=== PATIENT | female | born 1955 | race Caucasian/White ===

== ENCOUNTER 2016-10-02 10:29 | Outpatient (CLI) | payer MEDICARE, MEDICAID ==
--- NOTE | 2016-10-02 11:22 | Ultrasound Report ---
ULTRASOUND RIGHT FOREHEAD: 10/02/2016 CLINICAL HISTORY: Persistent mass. TECHNIQUE: Real-time scanning was performed with sales training representative static images obtained. FINDINGS: Ultrasound of the palpable abnormality identified by the patient on the right forehead was performed. At this site, there is a 1.4 x 1.4 x 0.3 cm lipoma. No sonographically suspicious findi ngs are seen. IMPRESSION: SMALL LIPOMA, ACCOUNTING FOR THE PALPABLE ABNORMALITY. :9 JOB #: [id number] EXT JOB #:[id number]
== END 2016-10-02 10:30 | disposition home or self-care (01) ==
LOC: DI 10:29
PROVIDERS: ATTEND Family Medicine
DX: D17.0 Benign lipomatous neoplasm of skin and subcutaneous tissue of head, face and neck (principal)
CPT/HCPCS: 76536

== ENCOUNTER 2017-08-19 20:50 | Outpatient (CLI) | payer MEDICAID, MEDICARE, OTHER ==
[2017-08-19 22:09] LABS: ALBUMIN 3.1 g/dL (3.2-5.5); ALBUMIN/GLOBULIN RATIO 0.8 (1.0-2.2); ALKALINE PHOSPHATASE 122 IU/L (42-121); ALT ALANINE AMINOTRANSFERASE 14 IU/L (10-60); AST ASPARTATE AMINOTRANSFERASE 19 IU/L (10-42); BILIRUBIN,TOTAL < 0.2 mg/dL (0.2-1.0); BUN - BLOOD UREA NITROGEN 18 mg/dL (6-20); CALCIUM 9.2 mg/dL (8.5-10.3); CARBON DIOXIDE - CO2 25 mmol/L (21-32); CHLORIDE 101 mmol/L (101-111); CREATININE 0.8 mg/dL (0.4-1.0); GFR - MDRD 73 (>89); GLUCOSE 101 mg/dL (70-100); SODIUM 135 mmol/L (135-145)
[2017-08-19 22:12] LABS: BASOPHILS # (AUTO) 0.2 10^3/uL (0.0-0.1); BASOPHILS % (AUTO) 2.1 %; EOSINOPHILS # (AUTO) 0.2 10^3/uL (0.0-0.7); EOSINOPHILS % (AUTO) 2.2 %; LYMPHOCYTES # (AUTO) 2.7 10^3/uL (1.5-3.5); LYMPHOCYTES % (AUTO) 35.1 %; MEAN CORPUSCULAR HEMOGLOBIN 29.7 pg (27.0-31.0); MEAN CORPUSCULAR HGB CONC 34.2 g/dL (32.0-36.0); MEAN CORPUSCULAR VOLUME 86.9 fL (81.0-99.0); MEAN PLATELET VOLUME 8.1 fL (7.9-10.8); MONOCYTES % (AUTO) 13.3 %; NEUTROPHILS # (AUTO) 3.6 10^3/uL (1.5-6.6); NEUTROPHILS % (AUTO) 47.3 %; PLT - PLATELET COUNT 480 10^3/uL (130-450); RED BLOOD COUNT 3.71 10^6/uL (4.20-5.40); RED CELL DISTRIBUTION WIDTH 13.6 % (12.0-15.0); WHITE BLOOD COUNT 7.6 x10^3/uL (4.8-10.8)
== END 2017-08-19 20:51 | disposition home or self-care (01) ==
LOC: LAB.R 20:50
DX: G40.909 Epilepsy, unspecified, not intractable, without status epilepticus (principal); I10 Essential (primary) hypertension; D64.9 Anemia, unspecified
CPT/HCPCS: 80053; 85025

== ENCOUNTER 2017-10-16 12:58 | Outpatient (CLI) | payer MEDICARE, MEDICAID ==
--- NOTE | 2017-10-16 15:00 | Mammography Report ---
Procedure Date: 10/16/2017 Accession Number: [id number] / [id number] Procedure: JANES - Diagnostic Dig Bilat CPT Code: FULL RESULT: EXAM: Diagnostic Dig Bilat DATE: 10/16/2017 1:39 PM CLINICAL HISTORY: Palpable abnormality left axilla COMPARISON: 04/10/2013, 07/05/2011, 07/14/2010 TECHNIQUE: Bilateral CC and MLO views, bilateral laterally exaggerated craniocaudal views, left true lateral views. A marker was placed at the site of palpable abnormality identified by the patient in the left axilla. FINDINGS: The breasts demonstrate heterogeneously dense fibroglandular parenchyma bilaterally. Coarse and punctate, typically benign calcifications are present. No mammographic abnormality is appreciated at the site of palpable abnormality identified by the marker in the left axilla. No suspicious masses, clustered microcalcifications, or regions of architectural distortion are identified. Please also refer to left breast ultrasound of the same day. IMPRESSION: Benign findings RECOMMENDATION: Routine annual screening unless otherwise clinically indicated. BIRADS CATEGORY 2: Benign findings STANDARD QUALIFYING STATEMENTS: 1. This examination was reviewed with the aid of Computer-Aided Detection (CAD). 2. A negative or benign imaging report should not delay biopsy if clinically suspicious findings are present. Consider surgical consultation if warrented. More than 5% of cancers are not identified by imaging. 3. Dense breasts may obscure an underlying neoplasm.
== END 2017-10-16 12:59 | disposition home or self-care (01) ==
LOC: DI 12:58
PROVIDERS: ATTEND Nurse Practitioner Gerontology
DX: N63.32 Unspecified lump in axillary tail of the left breast (principal)
CPT/HCPCS: 77066

== ENCOUNTER 2017-10-16 12:59 | Outpatient (CLI) | payer MEDICARE, MEDICAID ==
--- NOTE | 2017-10-16 14:46 | DEXA Report ---
Procedure Date: 10/16/2017 Accession Number: [id number] / [id number] Procedure: DEX - Dexa Spine and/or Hip CPT Code: FULL RESULT: EXAM: Dexa Spine and/or Hip, Dexa Forearm DATE: 10/16/2017 2:11 PM CLINICAL HISTORY: Postmenopausal, history of steroid use TECHNIQUE: Dual energy x-ray absorptiometry (DXA) was performed on a [employer] System. Regions measured are the AP Spine, femoral neck, and if needed forearm. COMPARISON: None. In accordance with the International Society for Clinical Densitometry (ISCD) guidelines, data from previous exams may be reanalyzed using current recommendations and techniques. This is done to allow a more accurate basis for comparison with the current study. FINDINGS: The data for the hip is as follows: BMD (g/cm/cm) T-SCORE Z-SCORE REGION Neck 0.781 -1.8 -0.6 TOTAL 0.804 -1.6 -0.6 NOTE: The femoral neck or total proximal femur, whichever is lowest, is used for classification. The data for the LEFT forearm is as follows: BMD (g/cm/cm) T-SCORE Z-SCORE REGION 1/3 0.877 0.0 1.1 NOTE: The 33% radius of the nondominant forearm is used for classification. IMPRESSION: THE WHO CLASSIFICATION BASED ON THE INTERNATIONAL REFERENCE STANDARD IS OSTEOPENIA. THE FRACTURE RISK IS INCREASED. Left forearm performed due to previous spine surgery. RECOMMENDATION: Patients with diagnosis of osteoporosis or osteopenia should have regular bone mineral density assessment. For those eligible for Medicare, routine testing is allowed once every 2 years. Testing frequency can be increased for patients who have rapidly progressing disease or for those who are receiving medical therapy to restore bone mass. COMMENT: World Health Organization (WHO) definitions for osteoporosis and osteopenia: NORMAL BMD: T-score at -1.0 or higher, fracture risk is low OSTEOPENIA BMD: T-score between -1.0 and -2.5, fracture risk is increased. OSTEOPOROSIS BMD: T-score at -2.5 or lower, fracture risk is high. National Osteoporosis Foundation recommends: 1. Obtain adequate dietary calcium (at least 1200 mg per day) and vitamin D (400-800 international units per day). 2. Participate, as appropriate, in regular weightbearing and muscle-strengthening exercise. 3. Avoid tobacco use and reduce alcohol and caffeine intake. 4. For more detailed information see the website at www.NOF.org.
--- NOTE | 2017-10-16 14:46 | DEXA Report ---
Procedure Date: 10/16/2017 Accession Number: [id number] / [id number] Procedure: DEX - Dexa Forearm CPT Code: FULL RESULT: EXAM: Dexa Spine and/or Hip, Dexa Forearm DATE: 10/16/2017 2:11 PM CLINICAL HISTORY: Postmenopausal, history of steroid use TECHNIQUE: Dual energy x-ray absorptiometry (DXA) was performed on a [employer] System. Regions measured are the AP Spine, femoral neck, and if needed forearm. COMPARISON: None. In accordance with the International Society for Clinical Densitometry (ISCD) guidelines, data from previous exams may be reanalyzed using current recommendations and techniques. This is done to allow a more accurate basis for comparison with the current study. FINDINGS: The data for the hip is as follows: BMD (g/cm/cm) T-SCORE Z-SCORE REGION Neck 0.781 -1.8 -0.6 TOTAL 0.804 -1.6 -0.6 NOTE: The femoral neck or total proximal femur, whichever is lowest, is used for classification. The data for the LEFT forearm is as follows: BMD (g/cm/cm) T-SCORE Z-SCORE REGION 1/3 0.877 0.0 1.1 NOTE: The 33% radius of the nondominant forearm is used for classification. IMPRESSION: THE WHO CLASSIFICATION BASED ON THE INTERNATIONAL REFERENCE STANDARD IS OSTEOPENIA. THE FRACTURE RISK IS INCREASED. Left forearm performed due to previous spine surgery. RECOMMENDATION: Patients with diagnosis of osteoporosis or osteopenia should have regular bone mineral density assessment. For those eligible for Medicare, routine testing is allowed once every 2 years. Testing frequency can be increased for patients who have rapidly progressing disease or for those who are receiving medical therapy to restore bone mass. COMMENT: World Health Organization (WHO) definitions for osteoporosis and osteopenia: NORMAL BMD: T-score at -1.0 or higher, fracture risk is low OSTEOPENIA BMD: T-score between -1.0 and -2.5, fracture risk is increased. OSTEOPOROSIS BMD: T-score at -2.5 or lower, fracture risk is high. National Osteoporosis Foundation recommends: 1. Obtain adequate dietary calcium (at least 1200 mg per day) and vitamin D (400-800 international units per day). 2. Participate, as appropriate, in regular weightbearing and muscle-strengthening exercise. 3. Avoid tobacco use and reduce alcohol and caffeine intake. 4. For more detailed information see the website at www.NOF.org.
--- NOTE | 2017-10-16 14:56 | Ultrasound Report ---
Reason: Left breast - unsp lump in axillary tail of the left breast Procedure Date: 10/16/2017 Accession Number: [id number] / [id number] Procedure: US - Breast Unilateral Limited CPT Code: FULL RESULT: EXAM: Breast Unilateral Limited DATE: 10/16/2017 2:48 PM CLINICAL HISTORY: Left breast - unsp lump in axillary tail of the left breast COMPARISON: Mammogram 10/16/2017 TECHNIQUE: Real time scanning of the palpable abnormality identified in the left axilla, with chemical sales representative static images obtained. FINDINGS: Unremarkable subcutaneous fat and axillary lymph nodes are present. No suspicious mass is identified. No sonographically suspicious findings are seen. IMPRESSION: Benign findings. Recommendation: Routine annual screening unless otherwise clinically indicated. BI-RADS Category 2 benign findings
== END 2017-10-16 13:00 | disposition home or self-care (01) ==
LOC: DI 12:59
PROVIDERS: ATTEND Nurse Practitioner Gerontology
DX: M85.88 Other specified disorders of bone density and structure, other site (principal); N63.22 Unspecified lump in the left breast, upper inner quadrant
CPT/HCPCS: 76642; 77066; 77080; 77081

== ENCOUNTER 2018-03-04 12:30 | Outpatient (CLI) | payer MEDICARE, MEDICAID | END 2018-03-04 12:31 | disposition short-term general hospital (02) | LOC: EMS 12:30 | PROVIDERS: ATTEND Surgery | DX: R07.9 Chest pain, unspecified (principal) | CPT/HCPCS: A0425; A0427 ==

== ENCOUNTER 2018-03-31 21:25 | Outpatient (CLI) | payer MEDICAID, MEDICARE ==
[2018-03-31 23:49] LABS: BASOPHILS # (AUTO) 0.2 10^3/uL (0.0-0.1); BASOPHILS % (AUTO) 2.7 %; EOSINOPHILS # (AUTO) 0.4 10^3/uL (0.0-0.7); EOSINOPHILS % (AUTO) 4.7 %; HGB - HEMOGLOBIN 11.7 g/dL (12.0-16.0); LYMPHOCYTES # (AUTO) 2.8 10^3/uL (1.5-3.5); LYMPHOCYTES % (AUTO) 35.8 %; MEAN CORPUSCULAR HEMOGLOBIN 29.7 pg (27.0-31.0); MEAN CORPUSCULAR HGB CONC 32.3 g/dL (32.0-36.0); MEAN CORPUSCULAR VOLUME 91.8 fL (81.0-99.0); MEAN PLATELET VOLUME 8.7 fL (7.9-10.8); MONOCYTES # (AUTO) 0.7 10^3/uL (0.0-1.0); MONOCYTES % (AUTO) 8.6 %; NEUTROPHILS # (AUTO) 3.8 10^3/uL (1.5-6.6); NEUTROPHILS % (AUTO) 48.2 %; PLT - PLATELET COUNT 282 10^3/uL (130-450); RED BLOOD COUNT 3.93 10^6/uL (4.20-5.40); RED CELL DISTRIBUTION WIDTH 15.3 % (12.0-15.0); WHITE BLOOD COUNT 7.9 x10^3/uL (4.8-10.8)
[2018-03-31 23:53] LABS: ALBUMIN 3.5 g/dL (3.2-5.5); ALBUMIN/GLOBULIN RATIO 0.9 (1.0-2.2); BILIRUBIN,TOTAL 0.2 mg/dL (0.2-1.0); CALCIUM 9.1 mg/dL (8.5-10.3); CREATININE 0.8 mg/dL (0.4-1.0); TOTAL PROTEIN 7.5 g/dL (6.7-8.2)
== END 2018-03-31 23:59 | disposition home or self-care (01) ==
LOC: LAB.R 21:25
PROVIDERS: ATTEND Family Medicine
DX: I25.119 Atherosclerotic heart disease of native coronary artery with unspecified angina pectoris (principal); D64.9 Anemia, unspecified
CPT/HCPCS: 80053; 82728; 85025

== ENCOUNTER 2018-04-24 16:11 | Emergency (ER) | payer MEDICARE ==
[2018-04-24 16:21] VITALS: BP 116/81
[2018-04-24] MEDS ORDERED: oxyCODONE/ACET 5/325 Prepack 4 PO STA (17:02)
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
== END 2018-04-24 17:25 | disposition home or self-care (01) ==
LOC: ED 16:11
DX: G89.29 Other chronic pain (principal); M54.5 Low back pain
CPT/HCPCS: 99281; 99283

== ENCOUNTER 2018-04-27 13:23 | Emergency (ER) | payer MEDICARE ==
[2018-04-27 13:31] VITALS: BP 103/80
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
[2018-04-27] MEDS ORDERED: oxyCODONE 5 MG TABLET PO STA (13:44)
== END 2018-04-27 14:00 | disposition home or self-care (01) ==
LOC: ED 13:23
DX: M54.5 Low back pain (principal); G35 Multiple sclerosis; Z76.0 Encounter for issue of repeat prescription
CPT/HCPCS: 99283; A9270

== ENCOUNTER 2018-05-12 18:17 | Emergency (ER) | payer MEDICARE ==
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
[2018-05-12 19:13] LABS: BASOPHILS # (AUTO) 0.1 10^3/uL (0.0-0.1); BASOPHILS % (AUTO) 0.6 %; EOSINOPHILS # (AUTO) 0.1 10^3/uL (0.0-0.7); EOSINOPHILS % (AUTO) 0.6 %; HGB - HEMOGLOBIN 11.1 g/dL (12.0-16.0); LYMPHOCYTES # (AUTO) 2.7 10^3/uL (1.5-3.5); LYMPHOCYTES % (AUTO) 27.8 %; MEAN CORPUSCULAR HEMOGLOBIN 29.2 pg (27.0-31.0); MEAN CORPUSCULAR HGB CONC 32.3 g/dL (32.0-36.0); MEAN CORPUSCULAR VOLUME 90.6 fL (81.0-99.0); MEAN PLATELET VOLUME 7.2 fL (7.9-10.8); MONOCYTES # (AUTO) 0.7 10^3/uL (0.0-1.0); MONOCYTES % (AUTO) 7.3 %; NEUTROPHILS # (AUTO) 6.2 10^3/uL (1.5-6.6); NEUTROPHILS % (AUTO) 63.7 %; PLT - PLATELET COUNT 497 10^3/uL (130-450); RED CELL DISTRIBUTION WIDTH 15.1 % (12.0-15.0); WHITE BLOOD COUNT 9.7 x10^3/uL (4.8-10.8)
[2018-05-12 19:26] LABS: ALBUMIN 3.8 g/dL (3.2-5.5); ALBUMIN/GLOBULIN RATIO 1.1 (1.0-2.2); BILIRUBIN,TOTAL 0.3 mg/dL (0.2-1.0); CALCIUM 9.2 mg/dL (8.5-10.3); CREATININE 0.7 mg/dL (0.4-1.0); TOTAL PROTEIN 7.4 g/dL (6.7-8.2)
--- NOTE | 2018-05-12 20:29 | XRAY Report ---
Reason: dyspnea Procedure Date: 05/12/2018 Accession Number: [id number] / [id number] Procedure: XR - Chest 2 View X-Ray CPT Code: 26738 FULL RESULT: EXAM: CHEST RADIOGRAPHY EXAM DATE: 05/12/2018 07:41 PM. CLINICAL HISTORY: Dyspnea. COMPARISON: 01/24/2015. TECHNIQUE: 2 views. FINDINGS: Lungs/Pleura: Interval small pleural effusions, left greater than right. Mild bronchial wall thickening, nonspecific for age. No consolidation or vascular congestion. No pneumothorax. Mediastinum: Normal heart size and superior mediastinal contour. Other: No acute fracture identified. IMPRESSION: 1. Nonspecific small bilateral pleural effusions, left greater than right. 2. No obvious consolidation or heart failure. Follow-up recommended. [facility]
[2018-05-12] MEDS ORDERED: POTASSIUM CHLORIDE 20 MEQ TABLET PO STA (20:39)
[2018-05-12] MEDS ORDERED: FUROSEMIDE 20 MG TABLET PO STA (20:39)
[2018-05-12 20:52] VITALS: BP 129/103
== END 2018-05-12 20:53 | disposition home or self-care (01) ==
LOC: ED 18:17
DX: I11.0 Hypertensive heart disease with heart failure (principal); I50.9 Heart failure, unspecified; I25.2 Old myocardial infarction; I45.2 Bifascicular block
CPT/HCPCS: 36415; 71046; 80053; 83690; 83880; 84484; 85025; 93005; 99283; 99284; A9270

== ENCOUNTER 2018-11-05 04:05 | Emergency (ER) | payer MEDICARE, MEDICAID ==
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
[2018-11-05] MEDS ORDERED: KETOROLAC 60 MG/2 ML VIAL IM STA (04:50)
[2018-11-05 05:20] VITALS: BP 118/76
== END 2018-11-05 05:40 | disposition home or self-care (01) ==
LOC: ED 04:05
DX: H92.02 Otalgia, left ear (principal); M54.42 Lumbago with sciatica, left side; I10 Essential (primary) hypertension
CPT/HCPCS: 96372; 99283; 99284

== ENCOUNTER 2019-02-21 12:43 | Emergency (ER) | payer MEDICARE, MEDICAID ==
[2019-02-21 12:55] VITALS: BP 104/57
--- NOTE | 2019-02-21 14:15 | ED Physician Documentation ---
PD HPI FEMALE - Stated complaint Stated Complaint: FEM /MED FILL - Chief complaint Chief Complaint: UTI - History obtained from History obtained from: Patient - History of Present Illness Timing - onset: How many days ago (5) Timing - duration: Days (5) Timing - details: Gradual onset, Still present Associated symptoms: Dysuria, Urinary frequency. No: Fever, Vaginal discharge, Genital sore/lesion, Hematuria Similar symptoms before: Diagnosis (has had many UTIs in the past, with similar symptoms.) Recently seen: Not recently seen (had Dr. Ragsdale as PMD, but has outstanding bills with that office, so is not given appt with them until paying. Is trying to change to [facility]. Is out of some [place] meds, and no mechanism for refills right now.) Review of Systems Constitutional: denies: Fever, Chills, Myalgias Nose: denies: Rhinorrhea / runny nose, Congestion Throat: denies: Sore throat Cardiac: denies: Chest pain / pressure Respiratory: denies: Cough GI: denies: Abdominal Pain, Nausea : reports: Dysuria, Frequency. 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 : Chronic bladder infection HEENT: None Psych: Depression Musculoskeletal: Chronic back pain Derm: Other - Past Surgical History Past Surgical History: Yes Ortho: Spine surgery /MYSQL DEVELOPER: Hysterectomy - Present Medications Home Medications: Ambulatory Orders Medication Instructions Recorded Confirmed Cholestyramine [Questran] 4 gm PO DAILY 04/28/13 11/05/18 Levothyroxine [Synthroid] 75 mcg PO QDAC 04/28/13 11/05/18 levETIRAcetam [Keppra] 500 mg PO BID 04/28/13 11/05/18 Furosemide [Lasix] 20 mg PO DAILY #7 tablet 05/12/18 11/05/18 Atorvastatin Calcium 1 tab PO DAILY 11/05/18 11/05/18 Ketorolac [Toradol] 10 mg PO Q6H PRN #14 tablet 11/05/18 Venlafaxine [Effexor] 2 tab PO DAILY 11/05/18 11/05/18 Cephalexin [Keflex] 500 mg PO TID #15 capsule 02/21/19 Methylphenidate HCl 20 mg PO DAILY #20 tablet.er 02/21/19 [Methylphenidate ER] Metoprolol Succinate [Toprol Xl] 25 mg PO DAILY #20 tablet 02/21/19 Phenazopyridine HCl [Pyridium] 100 mg PO TID PRN #15 tablet 02/21/19 Potassium Chloride 10 meq PO DAILY #7 tablet.er 02/21/19 levETIRAcetam [Keppra] 500 mg PO BID #80 tablet 02/21/19 - Allergies Allergies/Adverse Reactions: Allergies Allergy/AdvReac Type Severity Reaction Status Date / Time No Known Drug Allergies Allergy Verified 11/05/18 04:16 - Social History Does the pt smoke?: No Smoking Status: Never smoker Does the pt drink ETOH?: No Does the pt have substance abuse?: No - Immunizations Immunizations are current?: No - POLST Patient has POLST: No PD ED PE NORMAL - Vitals Vital signs reviewed: Yes - General General: Alert and oriented X 3, Well developed/nourished - HEENT HEENT: Pharynx benign - Neck Neck: Supple, no meningeal sign, No adenopathy - Cardiac Cardiac: RRR, No murmur - Respiratory Respiratory: Clear bilaterally - Abdomen Abdomen: Soft, Non tender - Female Female : Deferred, Other (bladder scanner showed about 187 residual.) - Derm Derm: Normal color, Warm and dry - Extremities Extremities: Normal ROM s pain, No edema, No calf tenderness / cord - Neuro Neuro: Alert and oriented X 3, No motor deficit, Normal speech - Psych Psych: No: Normal affect (slightly anxious, but able to follow train of thought) Results - Vitals Vitals: Vital Signs - 24 hr 02/21/19 12:51 Temperature 37.1 C Heart Rate 93 Respiratory 18 Rate Blood Pressure 104/57 L O2 Saturation 96 Oxygen O2 Source Room air - Labs Labs: Laboratory Tests 02/21/19 02/21/19 15:10 15:10 WBC 8.5 RBC 4.62 Hgb 13.5 Hct 41.9 MCV 90.7 MCH 29.2 MCHC 32.2 RDW 14.9 Plt Count 380 MPV 9.9 Neut # (Auto) 4.5 Lymph # (Auto) 3.1 [place] # (Auto) 0.6 Eos # (Auto) 0.1 Baso # (Auto) 0.2 H Absolute Nucleated RBC 0.00 Nucleated RBC % 0.0 Sodium 141 Potassium 4.1 Chloride 107 Carbon Dioxide 25 Anion Gap 9.0 BUN 15 Creatinine 1.0 Estimated GFR (MDRD) 56 L Glucose 107 H Calcium 9.5 Magnesium 2.5 Total Bilirubin 0.4 AST 20 ALT 15 Alkaline Phosphatase 116 Total Protein 8.0 Albumin 4.1 Globulin 3.9 Albumin/Globulin Ratio 1.1 Lipase 59 H PD MEDICAL DECISION MAKING - ED course Complexity details: d/w patient (she is having UTI symptoms. She says she cannot void here and is wanting to not delay her ride home. Bladder scan is normal enough. So will treat empirically for UTI. Would prefer UA and culture, but still sounds like reasonable empiric Dx for now. Also gave Rx for the meds she is currently out of. Getting appt with WCP.) Departure - Departure Disposition: Home, Self Care Clinical Impression: No mechanism for timely refill of medication, Dysuria UTI (urinary tract infection) Qualifiers: Urinary tract infection type: acute cystitis Hematuria presence: without hematuria Qualified Code(s): N30.00 - Acute cystitis without hematuria Condition: Stable Record reviewed to determine appropriate education?: Yes Instructions: ED UTI Cystitis Female Follow-Up: [facility] [Provider Group] Prescriptions: Cephalexin [Keflex] 500 mg PO TID #15 capsule levETIRAcetam [Keppra] 500 mg PO BID #80 tablet Methylphenidate HCl [Methylphenidate ER] 20 mg PO DAILY #20 tablet.er Metoprolol Succinate [Toprol Xl] 25 mg PO DAILY #20 tablet Phenazopyridine HCl [Pyridium] 100 mg PO TID PRN #15 tablet PRN Reason: Abdominal Pain Potassium Chloride 10 meq PO DAILY #7 tablet.er Comments: I wrote for 3 weeks of your medications you would need until follow-up with your new primary care. Hopefully that will be long enough duration for you to be able to follow-up with your new provider. Continue usual medications. Stay well-hydrated. For the urinary tract symptoms, Pyridium 2-3 times a day if needed for urinary discomfort. Cephalexin antibiotic for the infection. Recheck if not improving well over the next few days. Discharge Date/Time: 02/21/19 15:49
[2019-02-21] MEDS ORDERED: PHENAZOPYRIDINE 100 MG TABLET PO STA (15:01)
[2019-02-21] MEDS ORDERED: levETIRAcetam 250 MG TABLET PO STA (15:01)
[2019-02-21] MEDS ORDERED: cephALEXin 250 MG CAPSULE PO STA (15:01)
[2019-02-21 15:17] LABS: BASOPHILS # (AUTO) 0.2 10^3/uL (0.0-0.1); EOSINOPHILS # (AUTO) 0.1 10^3/uL (0.0-0.7); EOSINOPHILS % (AUTO) 1.5 %; HGB - HEMOGLOBIN 13.5 g/dL (12.0-16.0); LYMPHOCYTES # (AUTO) 3.1 10^3/uL (1.5-3.5); MEAN CORPUSCULAR HEMOGLOBIN 29.2 pg (27.0-31.0); MEAN CORPUSCULAR HGB CONC 32.2 g/dL (32.0-36.0); MEAN CORPUSCULAR VOLUME 90.7 fL (81.0-99.0); MEAN PLATELET VOLUME 9.9 fL (7.9-10.8); MONOCYTES # (AUTO) 0.6 10^3/uL (0.0-1.0); MONOCYTES % (AUTO) 7.3 %; NEUTROPHILS # (AUTO) 4.5 10^3/uL (1.5-6.6); NEUTROPHILS % (AUTO) 52.7 %; PLT - PLATELET COUNT 380 10^3/uL (130-450); RED BLOOD COUNT 4.62 10^6/uL (4.20-5.40); RED CELL DISTRIBUTION WIDTH 14.9 % (12.0-15.0); WHITE BLOOD COUNT 8.5 x10^3/uL (4.8-10.8)
[2019-02-21 15:28] LABS: ALBUMIN 4.1 g/dL (3.2-5.5); ALBUMIN/GLOBULIN RATIO 1.1 (1.0-2.2); BILIRUBIN,TOTAL 0.4 mg/dL (0.2-1.0); CALCIUM 9.5 mg/dL (8.5-10.3); MAGNESIUM 2.5 mg/dL (1.7-2.8)
== END 2019-02-21 15:49 | disposition home or self-care (01) ==
LOC: ED 12:43
DX: N30.00 Acute cystitis without hematuria (principal); I10 Essential (primary) hypertension; Z76.0 Encounter for issue of repeat prescription
CPT/HCPCS: 36415; 51798; 80053; 83690; 83735; 85025; 99284; 99285; A9270

== ENCOUNTER 2019-04-15 13:41 | Outpatient (CLI) | payer MEDICARE, MEDICAID ==
[2019-04-15 19:03] LABS: BASOPHILS # (AUTO) 0.1 10^3/uL (0.0-0.1); BASOPHILS % (AUTO) 1.5 %; EOSINOPHILS # (AUTO) 0.2 10^3/uL (0.0-0.7); EOSINOPHILS % (AUTO) 3.4 %; LYMPHOCYTES # (AUTO) 2.6 10^3/uL (1.5-3.5); LYMPHOCYTES % (AUTO) 38.5 %; MEAN CORPUSCULAR HEMOGLOBIN 28.4 pg (27.0-31.0); MEAN CORPUSCULAR HGB CONC 30.7 g/dL (32.0-36.0); MEAN CORPUSCULAR VOLUME 92.4 fL (81.0-99.0); MEAN PLATELET VOLUME 10.4 fL (7.9-10.8); MONOCYTES # (AUTO) 0.5 10^3/uL (0.0-1.0); NEUTROPHILS # (AUTO) 3.3 10^3/uL (1.5-6.6); NEUTROPHILS % (AUTO) 49.3 %; PLT - PLATELET COUNT 326 10^3/uL (130-450); RED BLOOD COUNT 4.58 10^6/uL (4.20-5.40); RED CELL DISTRIBUTION WIDTH 15.5 % (12.0-15.0); WHITE BLOOD COUNT 6.8 x10^3/uL (4.8-10.8)
[2019-04-15 19:13] LABS: HB2 TOTAL 13.4 g/dL; HEMOGLOBIN A1C 0.54 g/dL; HEMOGLOBIN A1C % 5.8 % (4.6-6.2)
[2019-04-15 19:40] LABS: ALBUMIN/GLOBULIN RATIO 1.1 (1.0-2.2); ALKALINE PHOSPHATASE 110 IU/L (42-121); ALT ALANINE AMINOTRANSFERASE 14 IU/L (10-60); AST ASPARTATE AMINOTRANSFERASE 19 IU/L (10-42); BILIRUBIN,TOTAL 0.5 mg/dL (0.2-1.0); BUN - BLOOD UREA NITROGEN 11 mg/dL (6-20); CALCIUM 9.6 mg/dL (8.5-10.3); CARBON DIOXIDE - CO2 26 mmol/L (21-32); CHLORIDE 110 mmol/L (101-111); CHOL/HDL RATIO 2.3 (<4.4); CHOLESTEROL 152 mg/dL; CREATININE 0.8 mg/dL (0.4-1.0); GFR - MDRD 72 (>89); GLUCOSE 84 mg/dL (70-100); HDL CHOLESTEROL 67 mg/dL; LDL CHOLESTEROL,CALCULATED 65 mg/dL; SODIUM 143 mmol/L (135-145); TOTAL PROTEIN 7.7 g/dL (6.7-8.2); VLDL CHOLESTEROL 20 mg/dL
[2019-04-15 20:11] LABS: FREE T4 (FREE THYROXINE) 0.89 ng/dL (0.58-1.64)
== END 2019-04-15 23:59 | disposition home or self-care (01) ==
LOC: LAB.N 13:41
PROVIDERS: ATTEND Nurse Practitioner Gerontology
DX: E78.00 Pure hypercholesterolemia, unspecified (principal); G35 Multiple sclerosis; E03.9 Hypothyroidism, unspecified; Z79.899 Other long term (current) drug therapy
CPT/HCPCS: 36415; 80053; 80061; 80177; 83036; 83721; 84439; 84443; 85025

== ENCOUNTER 2019-06-23 10:13 | Outpatient (CLI) | payer MEDICARE, MEDICAID | END 2019-06-23 23:59 | disposition home or self-care (01) | LOC: LAB.N 10:13 | PROVIDERS: ATTEND Nurse Practitioner Gerontology | DX: E03.9 Hypothyroidism, unspecified (principal) | CPT/HCPCS: 36415; 84443 ==

== ENCOUNTER 2019-07-18 10:09 | Emergency (ER) | payer MEDICARE ==
[2019-07-18 10:20] VITALS: BP 120/66
[2019-07-18 11:04] LABS: BILIRUBIN,URINE NEGATIVE (NEGATIVE); GLUCOSE, URINE (UA) NEGATIVE (NEGATIVE); KETONES,URINE (UA) NEGATIVE (NEGATIVE); LEUKOCYTE ESTERASE, URINE MODERATE (NEGATIVE); NITRITE,URINE POSITIVE (NEGATIVE); OCCULT BLOOD,URINE NEGATIVE (NEGATIVE); PH,URINE 5.5 PH (5.0-7.5); PROTEIN,URINE NEGATIVE (NEGATIVE); UROBILINOGEN,URINE 0.2 (NORMAL) E.U./dL (NORMAL)
[2019-07-18 11:06] LABS: CLARITY,URINE SL. CLOUDY (CLEAR)
[2019-07-18 11:11] LABS: BACTERIA,URINE Moderate /HPF (None Seen); RBC,URINE 0-5 /HPF (0-5); SQUAMOUS EPITHELIAL CELL,UR FEW Squamous (<= Few); WBC CLUMPS,URINE PRESENT
--- NOTE | 2019-07-18 11:23 | ED Physician Documentation ---
PD HPI FEMALE - Stated complaint Stated Complaint: FEMALE - Chief complaint Chief Complaint: UTI - History obtained from History obtained from: Patient - History of Present Illness Timing - onset: How many days ago (2-3) Timing - duration: Days (2-3) Timing - details: Gradual onset, Still present Associated symptoms: Back pain (mild today), Dysuria, Urinary frequency. No: Fever, Pelvic pain, Vaginal discharge, Genital sore/lesion Similar symptoms before: Diagnosis (UTIs) Review of Systems Constitutional: reports: Myalgias. denies: Fever, Chills Nose: denies: Rhinorrhea / runny nose, Congestion Throat: denies: Sore throat Respiratory: denies: Cough GI: reports: Nausea. 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 : Chronic bladder infection HEENT: None Psych: Depression Musculoskeletal: Chronic back pain Derm: Other - Past Surgical History Past Surgical History: Yes Ortho: Spine surgery /ACTUARIAL ANALYST: Hysterectomy - Present Medications Home Medications: Ambulatory Orders Medication Instructions Recorded Confirmed Cholestyramine [Questran] 4 gm PO DAILY 04/28/13 07/18/19 Furosemide [Lasix] 20 mg PO DAILY #7 tablet 05/12/18 07/18/19 Atorvastatin Calcium 40 mg PO DAILY 11/05/18 07/18/19 Metoprolol Succinate [Toprol Xl] 25 mg PO DAILY #20 tablet 02/21/19 07/18/19 Potassium Chloride 10 meq PO DAILY #7 tablet.er 02/21/19 07/18/19 levETIRAcetam [Keppra] 500 mg PO BID #80 tablet 02/21/19 07/18/19 Acetaminophen 1,000 mg Q6HR PRN 07/18/19 07/18/19 Baclofen 10 mg DAILY 07/18/19 07/18/19 Calcium Carbonate/Vitamin D3 1 ea DAILY 07/18/19 07/18/19 [Calcium 500 mg-Vit D3 600 Unit] Cephalexin [Keflex] 500 mg PO TID #20 capsule 07/18/19 Clopidogrel [Plavix] 75 mg DAILY 07/18/19 07/18/19 Diazepam 2 mg DAILY PRN 07/18/19 07/18/19 Glucos Sul 2Kcl/MSM/Chond/C/Mn 1 cap DAILY 07/18/19 07/18/19 [Glucosamine Chondroitin Cap] Levothyroxine Sodium 50 mcg DAILY 07/18/19 07/18/19 Methylphenidate HCl 40 mg PO DAILY 07/18/19 07/18/19 [Methylphenidate ER] Multivitamin/Iron/Folic Acid 1 ea ORAL DAILY 07/18/19 07/18/19 [Centrum Women Tablet] Phenazopyridine HCl [Pyridium] 100 mg PO TID PRN #15 tablet 07/18/19 - Allergies Allergies/Adverse Reactions: Allergies Allergy/AdvReac Type Severity Reaction Status Date / Time No Known Drug Allergies Allergy Verified 07/18/19 10:19 - Social History Does the pt smoke?: Yes Smoking Status: Current every day smoker Does the pt drink ETOH?: No Does the pt have substance abuse?: No - Immunizations Immunizations are current?: No - POLST Patient has POLST: No PD ED PE NORMAL - Vitals Vital signs reviewed: Yes - General General: Alert and oriented X 3, No acute distress, Well developed/nourished - Abdomen Abdomen: Soft, Non tender - Female Female : Deferred - Back Back: No CVA TTP - Derm Derm: Normal color - Neuro Neuro: Alert and oriented X 3, No motor deficit, Normal speech Results - Vitals Vitals: Vital Signs - 24 hr 07/18/19 10:19 Temperature 36.8 C Heart Rate 84 Respiratory 17 Rate Blood Pressure 120/66 O2 Saturation 98 Oxygen O2 Source Room air - Labs Labs: Laboratory Tests 07/18/19 10:30 Urine Color YELLOW Urine Clarity SL. CLOUDY Urine pH 5.5 Ur Specific [place] 1.015 Urine Protein NEGATIVE Urine Glucose (UA) NEGATIVE Urine Ketones NEGATIVE Urine Occult Blood NEGATIVE Urine Nitrite POSITIVE H Urine Bilirubin NEGATIVE Urine Urobilinogen 0.2 (NORMAL) Ur Leukocyte Esterase MODERATE H Urine RBC 0-5 Urine WBC >25 H Urine WBC Clumps PRESENT Ur Squamous Epith Cells FEW Squamous Urine Bacteria Moderate H Ur Microscopic Review INDICATED Urine Culture Comments INDICATED PD MEDICAL DECISION MAKING - ED course Complexity details: reviewed results, considered differential (symptoms and UA c/w UTI. ), d/w patient Departure - Departure Disposition: 01 Home, Self Care Clinical Impression: UTI (lower urinary tract infection) Condition: Stable Record reviewed to determine appropriate education?: Yes Instructions: ED UTI Cystitis Female Follow-Up: Erica Mendez ARNP [Primary Care Provider] - Prescriptions: Cephalexin [Keflex] 500 mg PO TID #20 capsule Phenazopyridine HCl [Pyridium] 100 mg PO TID PRN #15 tablet PRN Reason: Abdominal Pain Comments: Stay well-hydrated. Continue usual medicines. Add cephalexin 3 times a day for a week as prescribed for the bladder infection. The culture will result in 2 to 3 days and will call you if we need to change antibiotics based on that. Phenazopyridine 3 times a day for the next few days to help with urinary discomfort. Recheck if not improving well over the next 2 to 3 days and return if fevers, vomiting, increased pain, other concerns. Discharge Date/Time: 07/18/19 11:49
[2019-07-18] MEDS ORDERED: PHENAZOPYRIDINE 100 MG TABLET PO STA (11:28)
[2019-07-18] MEDS ORDERED: cephALEXin 250 MG CAPSULE PO STA (11:28)
[2019-07-18] MEDS ORDERED: ACETAMINOPHEN 325 MG TABLET PO STA (11:29)
== END 2019-07-18 11:49 | disposition home or self-care (01) ==
LOC: ED 10:09
DX: N39.0 Urinary tract infection, site not specified (principal); I10 Essential (primary) hypertension; G35 Multiple sclerosis; F17.210 Nicotine dependence, cigarettes, uncomplicated
CPT/HCPCS: 81001; 87077; 87086; 87181; 99283; 99284; A9270; 81003

== ENCOUNTER 2019-12-11 08:00 | Outpatient (CLI) | payer MEDICARE, MEDICAID | END 2019-12-11 23:59 | disposition home or self-care (01) | LOC: LAB.WCP 08:00 | PROVIDERS: ATTEND Psychiatry & Neurology Neurology | DX: G35 Multiple sclerosis (principal) | CPT/HCPCS: 36415; 82565 ==

== ENCOUNTER 2020-02-09 08:04 | Outpatient (CLI) | payer MEDICARE, MEDICAID | END 2020-02-09 08:05 | disposition critical access hospital (66) | LOC: EMS 08:04 | PROVIDERS: ATTEND Surgery | DX: R41.82 Altered mental status, unspecified (principal) | CPT/HCPCS: A0425; A0427 ==

== ENCOUNTER 2020-02-09 08:18 | Inpatient (IN) | payer MEDICARE, MEDICAID ==
--- NOTE | 2020-02-09 08:51 | CT Report ---
PROCEDURE: ANGIO HEAD W/WO INDICATIONS: Confusion, bilateral LE weakness, aphasia CONTRAST: IV CONTRAST: Optiray 320 ml: 80 PO CONTRAST: *NO PO CONTRAST TECHNIQUE: Precontrast 4.5 mm thick angled axial sections acquired from the foramen magnum to the vertex. Afte r the administration of intravenous contrast, 1 mm thick sections acquired through the [place] of [place] is. Postcontrast 4.5 mm thick sections then re-acquired from the foramen magnum to the vertex. 3-di mensional aajozyx-laruszdbh-ywcrubtlbj (MIP) and/or volume rendering reformats were acquired of the c entral intracranial vasculature. For radiation dose reduction, the following was used: automated ex posure control, adjustment of mA and/or kV according to patient size. COMPARISON: 01/24/[address] FINDINGS: Image quality: Excellent. Anterior circulation: Intracranial internal carotid arteries are normal in size and flow. The flow within the paired anterior cerebral arteries is normal and symmetric. The flow within the middle cer ebral arteries is normal and symmetric. The anterior communicating artery is seen. No aneurysms are seen. Posterior circulation: Visualized portions of the vertebral arteries demonstrate normal caliber, and join to form a normal appearing basilar artery. Flow within the posterior cerebral arteries is norm al and symmetric. No aneurysms are seen. CSF spaces: Ventricles are normal in size and shape. Basal cisterns are patent. No extra-axial flu id collections. Brain: No midline shift. No intracranial bleeds or masses. [place]-white matter interface appears int act. Skull and face: Calvarium and facial bones appear intact, without suspicious lesions. Sinuses: Visualized sinuses and mastoids are clear. IMPRESSION: No hemodynamically significant stenosis or occlusion of the major intracranial arterial circulation. Calcified atherosclerosis in the carotid siphons bilaterally. Global cerebral volume loss with moderate chronic microvascular ischemic changes. Reviewed by: Phillip Gutierrez MD on 02/09/2020 8:50 AM PDT Approved by: Phillip Gutierrez MD on 02/09/2020 8:50 AM PDT Station ID: [id number]
--- NOTE | 2020-02-09 08:55 | CT Report ---
PROCEDURE: ANGIO NECK W INDICATIONS: Confusion, bilateral LE weakness, aphasia CONTRAST: IV CONTRAST: Optiray 320 ml: 80 PO CONTRAST: *NO PO CONTRAST TECHNIQUE: After the administration of intravenous contrast, 1.5 mm axial sections acquired from the aortic arch to the [place] of [place]. Coronal 3-D maximum intensity projection (MIP) and/or volume rendering ref ormats were then performed. For radiation dose reduction, the following was used: automated exposur e control, adjustment of mA and/or kV according to patient size. COMPARISON: None. FINDINGS: Image quality: Excellent. Carotid system: The great vessels demonstrate a conventional anatomy as they arise from the aortic a [facility]. The origins of the common carotid arteries appear patent. The common carotid arteries demonstr ate normal calibers and courses. The bifurcation regions appear normal bilaterally. The internal ca rotid arteries demonstrate normal caliber and course. Posterior circulation: The origins of the vertebral arteries appear patent. The more superior porti ons of the vertebral arteries demonstrate normal course and caliber. They join to form a normal appe aring basilar artery. Soft tissues: Moderate centrilobular and paraseptal emphysematous changes. There is a nonspecific irr egular groundglass opacity in the right apex measuring approximately 9 mm in maximum dimension, sligh tly increased from January 2015 exam. Remaining soft tissue structures of the neck demonstrate no s ignificant abnormality. Bones: No suspicious bony lesions. Visualized cervical spine appears normally aligned. IMPRESSION: No occlusion or hemodynamically significant stenosis of the major extracranial arterial circulation. Moderate emphysematous change with a nonspecific irregular groundglass opacity in the right apex mehran uring up to 9 mm, slightly increased from January 2015 exam. This is concerning for low-grade malig mukund. Further evaluation with either PET/CT or continued CT surveillance is recommended. Reviewed by: Phillip Gutierrez MD on 02/09/2020 8:53 AM PDT Approved by: Phillip Gutierrez MD on 02/09/2020 8:53 AM PDT Station ID: [id number]
--- NOTE | 2020-02-09 09:05 | ED Physician Documentation ---
PD HPI ALTERED MENTAL STATUS - Stated complaint Stated Complaint: POSS STROKE - Chief complaint Chief Complaint: Neuro - History obtained from History obtained from: Patient, EMS - History of Present Illness Timing - onset: Today Timing - duration: Hours Timing - details: Gradual onset, Still present Quality / character: Less responsive Associated symptoms: General weakness, Other (fall). No: Fever, Headache, Stiff neck, Dyspnea, Cough, NVD, Urinary sx, Focal weakness, Seizure activity, Syncope Contributing factors: No: Anticoagulated Basline status: Alert and oriented X 3, Ambulatory, Independent Similar symptoms before: Diagnosis (altered mental status with UTI. and missuse of medications.) Recently seen: Not recently seen - Additional information Additional information: 64-year-old female with a history of MS and ADHD presents this morning with altered mental status and she had a last known normal yesterday evening about 10 PM. She has had prior episodes of altered mental status related to medication misuse and to urinary tract infection. PD PAST MEDICAL HISTORY - Past Medical History Cardiovascular: Hypertension, [place] Respiratory: None Neuro: None, Multiple sclerosis Endocrine/Autoimmune: None GI: None INTERVENTIONAL RADIOLOGY RN: None : Chronic bladder infection HEENT: None Psych: Depression Musculoskeletal: Chronic back pain Derm: Other - Past Surgical History Past Surgical History: Yes Ortho: Spine surgery /INTERVENTIONAL RADIOLOGY RN: Hysterectomy - Present Medications Home Medications: Ambulatory Orders Medication Instructions Recorded Confirmed Cholestyramine [Questran] 4 gm PO DAILY 04/28/13 07/18/19 Furosemide [Lasix] 20 mg PO DAILY #7 tablet 05/12/18 07/18/19 Atorvastatin Calcium 40 mg PO DAILY 11/05/18 07/18/19 Metoprolol Succinate [Toprol Xl] 25 mg PO DAILY #20 tablet 02/21/19 07/18/19 Potassium Chloride 10 meq PO DAILY #7 tablet.er 02/21/19 07/18/19 levETIRAcetam [Keppra] 500 mg PO BID #80 tablet 02/21/19 07/18/19 Acetaminophen 1,000 mg Q6HR PRN 07/18/19 07/18/19 Baclofen 10 mg DAILY 07/18/19 07/18/19 Calcium Carbonate/Vitamin D3 1 ea DAILY 07/18/19 07/18/19 [Calcium 500 mg-Vit D3 600 Unit] Cephalexin [Keflex] 500 mg PO TID #20 capsule 07/18/19 Clopidogrel [Plavix] 75 mg DAILY 07/18/19 07/18/19 Diazepam 2 mg DAILY PRN 07/18/19 07/18/19 Glucos Sul 2Kcl/MSM/Chond/C/Mn 1 cap DAILY 07/18/19 07/18/19 [Glucosamine Chondroitin Cap] Levothyroxine Sodium 50 mcg DAILY 07/18/19 07/18/19 Methylphenidate HCl 40 mg PO DAILY 07/18/19 07/18/19 [Methylphenidate ER] Multivitamin/Iron/Folic Acid 1 ea ORAL DAILY 07/18/19 07/18/19 [Centrum Women Tablet] Phenazopyridine HCl [Pyridium] 100 mg PO TID PRN #15 tablet 07/18/19 Ketorolac [Toradol] 10 mg PO Q6H PRN #10 tablet 12/11/19 - Allergies Allergies/Adverse Reactions: Allergies Allergy/AdvReac Type Severity Reaction Status Date / Time No Known Drug Allergies Allergy Verified 02/09/20 08:46 - Social History Does the pt smoke?: Yes Smoking Status: Current every day smoker Does the pt drink ETOH?: No Does the pt have substance abuse?: No - Immunizations Immunizations are current?: No - POLST Patient has POLST: No PD ED PE NORMAL - Vitals Vital signs reviewed: Yes (hypertensive ) - General General: No acute distress, Well developed/nourished, Other (The patient will answer questions with delay in execution of commands. ) - HEENT HEENT: Atraumatic, PERRL, EOMI - Neck Neck: Supple, no meningeal sign, No bony TTP - Cardiac Cardiac: RRR, No murmur - Respiratory Respiratory: No respiratory distress, Clear bilaterally - Abdomen Abdomen: Normal bowel sounds, Soft, Non tender, Non distended, No organomegaly - Back Back: No CVA TTP, No spinal TTP - Derm Derm: Normal color, Warm and dry, No rash - Extremities Extremities: No deformity, No edema - Neuro Neuro: Alert and oriented X 3, records manager 2-12 intact, No motor deficit, No sensory deficit, Normal speech Eye Opening: Spontaneous Motor: Obeys Commands Verbal: Oriented GCS Score: 15 - Psych Psych: Normal mood, Normal affect Results - Vitals Vitals: Vital Signs - 24 hr 10/06/20 10/06/20 10/06/20 08:36 09:30 10:00 Temperature 36.6 C Heart Rate 85 73 76 Respiratory 19 23 24 Rate Blood Pressure 148/126 H 151/83 H 131/101 H O2 Saturation 99 99 100 02/09/20 02/09/20 02/09/20 10:30 11:00 11:30 Temperature Heart Rate 72 73 83 Respiratory 19 20 24 Rate Blood Pressure 138/87 H 138/81 H 144/98 H O2 Saturation 98 100 99 02/09/20 02/09/20 02/09/20 12:00 12:30 13:00 Temperature Heart Rate 75 79 88 Respiratory 28 H 22 19 Rate Blood Pressure 140/90 H 104/81 H O2 Saturation 98 99 99 Oxygen O2 Source Room air - EKG (time done) 0837 Rate: Rate (enter#) (83) Rhythm: NSR, Other (pvc's) Intervals: RBBB Ischemia: Q waves (consistent with prior inferior) Compare to prior EKG: Unchanged from prior EKG (SPT 05-12-2018 no changes) Computer interpretation: Disagree with computer (I do not see ST elevation in V5,6 or aVL) - Labs Labs: Laboratory Tests 02/09/20 02/09/20 02/09/20 09:18 09:18 09:32 WBC 9.0 RBC 4.64 Hgb 14.3 Hct 44.4 MCV 95.7 MCH 30.8 MCHC 32.2 RDW 13.8 Plt Count 248 MPV 10.8 Neut # (Auto) 6.0 Lymph # (Auto) 2.1 Spencer # (Auto) 0.7 Eos # (Auto) 0.0 Baso # (Auto) 0.1 Absolute Nucleated RBC 0.00 Nucleated RBC % 0.0 PT 13.1 H INR 1.2 APTT 27.3 Sodium 138 Potassium 3.8 Chloride 103 Carbon Dioxide 19 L Anion Gap 16.0 H BUN 23 H Creatinine 1.2 H Estimated GFR (MDRD) 45 L Glucose 94 Lactic Acid Calcium 9.6 Total Bilirubin 0.8 AST 20 ALT 13 Alkaline Phosphatase 107 Total Protein 8.3 H Albumin 4.4 Globulin 3.9 Albumin/Globulin Ratio 1.1 Lipase 31 Urine Color Urine Clarity Urine pH Ur Specific Dewey Urine Protein Urine Glucose (UA) Urine Ketones Urine Occult Blood Urine Nitrite Urine Bilirubin Urine Urobilinogen Ur Leukocyte Esterase Urine RBC Urine WBC Ur Squamous Epith Cells Urine Bacteria Ur Microscopic Review Urine Culture Comments 10/06/20 10/06/20 09:32 13:00 WBC RBC Hgb Hct MCV MCH MCHC RDW Plt Count MPV Neut # (Auto) Lymph # (Auto) Spencer # (Auto) Eos # (Auto) Baso # (Auto) Absolute Nucleated RBC Nucleated RBC % PT INR APTT Sodium Potassium Chloride Carbon Dioxide Anion Gap BUN Creatinine Estimated GFR (MDRD) Glucose Lactic Acid 1.8 Calcium Total Bilirubin AST ALT Alkaline Phosphatase Total Protein Albumin Globulin Albumin/Globulin Ratio Lipase Urine Color YELLOW Urine Clarity CLEAR Urine pH 6.0 Ur Specific Dewey 1.010 Urine Protein NEGATIVE Urine Glucose (UA) NEGATIVE Urine Ketones NEGATIVE Urine Occult Blood MODERATE H Urine Nitrite POSITIVE H Urine Bilirubin NEGATIVE Urine Urobilinogen 0.2 (NORMAL) Ur Leukocyte Esterase NEGATIVE Urine RBC 0-5 Urine WBC 0-3 Ur Squamous Epith Cells NONE SEEN Urine Bacteria Many H Ur Microscopic Review INDICATED Urine Culture Comments INDICATED Procedures - IVC sono (time) 0920 Bedside IVC sono: IVC measures (cm) (0.58), Profound dehydration (est 3+ liter deficit) PD MEDICAL DECISION MAKING - ED course Complexity details: reviewed old records, reviewed results, re-evaluated jasmyne montoya, considered differential, d/w patient ED course: 64-year-old female with history of MS and ADHD has presented this morning with altered mental status and was last normal yesterday evening at approximately 10 PM. She is able to give some history this morning after arrival and she is only able to say that she does not have pain and that she does not feel that she was sick last week. She is not able to answer how much she has had to drink in the past day. She is found to be profoundly dehydrated with an IVC measuring 0.58 cm. It is administered saline. She arrives as a code stroke and on arrival to the ED the patient is not able to communicate effectively and not able to cooperate with stroke exam. She has weakness to the LE symmetric and she is able to hold the arms out for the count. She has symmetric face and has delay in execution of motor commands. She has improvement with hydration in her cognative function but remains slow. A urine specimen is obtained after 2 1/2 liter saline infusion. This appears infected and admission for altered mental status, UTI and dehydration is sought. Departure - Departure Disposition: 66 [facility] DC/Xfer Clinical Impression: UTI (lower urinary tract infection), Altered mental status, Dehydration
--- NOTE | 2020-02-09 09:18 | XRAY Report ---
PROCEDURE: Chest 1 View X-Ray INDICATIONS: chest pain TECHNIQUE: One view of the chest was acquired. COMPARISON: 05/12/2018 FINDINGS: Surgical changes and devices: None. Lungs and pleura: No pleural effusions or pneumothorax. Lungs are clear. Mediastinum: Mediastinal contours appear normal. Heart size is normal. Bones and chest wall: No suspicious bony lesions. Overlying soft tissues appear unremarkable. IMPRESSION: No acute process. Reviewed by: Taylor Vick MD on 02/09/2020 9:16 AM PDT Approved by: Taylor Vick MD on 02/09/2020 9:16 AM PDT Station ID: [id number]
[2020-02-09] MEDS ORDERED: SODIUM CHLORIDE 0.9% 1,000 ML IV STA ×2 (09:22→11:53)
[2020-02-09 09:24] LABS: BASOPHILS # (AUTO) 0.1 10^3/uL (0.0-0.1); BASOPHILS % (AUTO) 0.9 %; EOSINOPHILS % (AUTO) 0.4 %; HGB - HEMOGLOBIN 14.3 g/dL (12.0-16.0); LYMPHOCYTES # (AUTO) 2.1 10^3/uL (1.5-3.5); LYMPHOCYTES % (AUTO) 23.8 %; MEAN CORPUSCULAR HEMOGLOBIN 30.8 pg (27.0-31.0); MEAN CORPUSCULAR HGB CONC 32.2 g/dL (32.0-36.0); MEAN CORPUSCULAR VOLUME 95.7 fL (81.0-99.0); MEAN PLATELET VOLUME 10.8 fL (7.9-10.8); MONOCYTES # (AUTO) 0.7 10^3/uL (0.0-1.0); MONOCYTES % (AUTO) 8.2 %; NEUTROPHILS % (AUTO) 66.5 %; PLT - PLATELET COUNT 248 10^3/uL (130-450); RED BLOOD COUNT 4.64 10^6/uL (4.20-5.40); RED CELL DISTRIBUTION WIDTH 13.8 % (12.0-15.0)
[2020-02-09 09:40] LABS: ALBUMIN 4.4 g/dL (3.2-5.5); ALBUMIN/GLOBULIN RATIO 1.1 (1.0-2.2); BILIRUBIN,TOTAL 0.8 mg/dL (0.2-1.0); CALCIUM 9.6 mg/dL (8.5-10.3); CREATININE 1.2 mg/dL (0.4-1.0); TOTAL PROTEIN 8.3 g/dL (6.7-8.2)
[2020-02-09 09:46] LABS: INR 1.2 (0.8-1.2); PT - PROTHROMBIN TIME 13.1 secs (9.9-12.6)
[2020-02-09 09:52] LABS: PARTIAL THROMBOPLASTIN TIME 27.3 secs (24.9-33.3)
[2020-02-09] MEDS ORDERED: SODIUM CHLORIDE 0.9% 1,000 ML IV ONE (11:26)
[2020-02-09 13:22] LABS: BILIRUBIN,URINE NEGATIVE (NEGATIVE); GLUCOSE, URINE (UA) NEGATIVE (NEGATIVE); KETONES,URINE (UA) NEGATIVE (NEGATIVE); LEUKOCYTE ESTERASE, URINE NEGATIVE (NEGATIVE); NITRITE,URINE POSITIVE (NEGATIVE); OCCULT BLOOD,URINE MODERATE (NEGATIVE); PROTEIN,URINE NEGATIVE (NEGATIVE); UROBILINOGEN,URINE 0.2 (NORMAL) E.U./dL (NORMAL)
[2020-02-09 13:24] LABS: CLARITY,URINE CLEAR (CLEAR)
[2020-02-09 13:32] LABS: BACTERIA,URINE Many /HPF (None Seen); RBC,URINE 0-5 /HPF (0-5); SQUAMOUS EPITHELIAL CELL,UR NONE SEEN (<= Few)
[2020-02-09 13:41] LABS: MUDS CUTOFF CONCENTRATIONS CUTOFF CONC BELOW:
[2020-02-09] MEDS ORDERED: cefTRIAXone 1 GM in SODIUM CHLORIDE 0.9% MINIBAG 100 ML IV STA (13:41)
[2020-02-09 13:52] LABS: AMPHETAMINE SCREEN,URINE NEGATIVE (NEGATIVE); BENZODIAZEPINES SCREEN, URINE NEGATIVE (NEGATIVE); COCAINE SCREEN URINE NEGATIVE (NEGATIVE); METHADONE SCREEN, URINE NEGATIVE (NEGATIVE); METHAMPHETAMINES SCREEN, URINE NEGATIVE (NEGATIVE); OPIATE SCREEN, URINE NEGATIVE (NEGATIVE); OXYCODONE SCREEN, URINE NEGATIVE (NEGATIVE); PROPOXYPHENE SCREEN, URINE NEGATIVE (NEGATIVE); TRICYCLIC ANTIDEPRESSANT,URINE NEGATIVE (NEGATIVE)
[2020-02-09] MEDS ORDERED: IOVERSOL 320 100 ML VIAL IVP ONE (13:52)
[2020-02-09] MEDS: D5NS W/20 MEQ KCL 1,000 ML IV SCH (15:20)
[2020-02-09] MEDS: ENOXAPARIN 40 MG/0.4 ML SYRINGE SUBQ SCH (15:21)
[2020-02-09] MEDS: SODIUM CHLORIDE FLUSH 0.9% 10 ML SYRINGE IVP PRN ×2 (15:21→18:42)
[2020-02-09] MEDS: MEROPENEM 1 GM in SODIUM CHLORIDE 0.9% MINIBAG 100 ML IV SCH (17:51)
[2020-02-09] MEDS: SODIUM CHLORIDE FLUSH 0.9% 10 ML SYRINGE IVP SCH (18:02)
--- NOTE | 2020-02-09 18:58 | HISTORY & PHYSICAL EXAMINATION ---
DATE OF SERVICE: 02/09/2020 Physician: Divina Cesar MD HISTORY OF PRESENT ILLNESS: This is a 64-year-old white female with a history of ADHD and multiple sclerosis, who has had several admissions with altered mental status, which were found to be due to dehydration and a UTI. With one of these she had transfer to higher level of care because of the altered mental status, but in the end the etiology was the same: UTI and dehydration. Patient presents with extremely altered mental status, last known well was yesterday evening. It is unclear who found the patient (since it is not documented in the ER note, no ambulance run sheet is available, she cannot describe and no family is available), but she was extremely obtunded when arrived in the ER, had spontaneous respirations, but was not following commands, and was not communicative. She underwent a code stroke workup in the emergency room. She was also started on IV hydration, and has already rfeceived 2.5 L of fluid, which improved her mental status already and when a Doppler of the inferior vena cava was done in the ER, it showed that she had extreme IVC collapse, suggestive of extreme dehydration. Patient cannot give any details regarding this presentation. She does not know who found her, how she got to the emergency room and she cannot describe how she felt. There is no family at the bedside. Patient is awakening and answers appropriately, but has no recollection of the events. She denies any pain currently but she says she is tired. She denies any dysuria. It is unknown if she is compliant with her medications. PAST MEDICAL HISTORY 1. ADHD. 2. History of inappropriate (excessive) use of narcotics, ADHD medication and sedatives. 3. History of multiple sclerosis. 4. Hypertension. 5. Prior [place]. 6. Chronic UTIs. 7. Dehydration, presenting as altered mental status. PAST SURGICAL HISTORY: Spinal surgery and hysterectomy. FAMILY HISTORY: No inherited diseases. SOCIAL HISTORY: Patient lives alone. She is a smoker. She does not drink alcohol and there is no illicit drug use history. REVIEW OF SYSTEMS: This was done by talking to patient, but she was minimally able to give details, also chart review, also from discussion with the ER doctor. The pertinent positives are listed, the rest are negative or unknown at this time. MEDICATIONS 1. Tylenol p.r.n. 2. Atorvastatin 40 mg at bedtime. 3. Baclofen unknown frequency. 4. Vitamin D3 with calcium daily. 5. Questran 4 mg daily. 6. Plavix 75 mg daily. 7. Diazepam p.r.n. 8. Lasix 20 mg daily. 9. Glucosamine chondroitin daily. 10. Toradol 10 mg q.6 hours p.r.n. 11. Keppra 500 mg b.i.d. 12. Levothyroxine 50 mcg daily. 13. Methylphenidate ER 40 mg daily. 14. Metoprolol succinate 25 mg daily. 15. Multivitamin with iron daily. 16. Pyridium 100 mg t.i.d. p.r.n. 17. Potassium 10 mEq daily. ALLERGIES: NONE. PHYSICAL EXAMINATION GENERAL: Middle-aged white female. She is in no acute distress. She is supine in bed, appears comfortable, is somnolent, but awakens to her name and speaks normally but with short answers and she is in no distress. VITAL SIGNS: Blood pressure 130/60, heart rate 77 in sinus rhythm, afebrile, room air saturation 99%. HEENT: Reveals dry oral mucosa and tongue. NECK: No JVD in a supine position. CHEST: Clear. HEART: Normal heart sounds. No murmur. ABDOMEN: Soft, nontender and no pannus. EXTREMITIES: No clubbing, edema or cyanosis. NEUROLOGIC: Nonfocal, grossly intact, but somnolent. LABORATORY DATA: Normal electrolytes. Anion gap of 16, BUN 23, creatinine 1.2. (Her baseline creatinine is 1.0). Lactic acid 1.8. Normal liver tests. Normal CBC and INR. Urinalysis showed moderate occult blood, positive nitrites and many bacteria. Toxicology was negative entirely. IMAGING: Chest x-ray: No active process. Head and neck CTA showed no acute stroke or hemorrhage or severe stenoses. EKG: Normal sinus rhythm, right bundle branch block, and there is baseline motion artifact making any further interpretation not possible. IMPRESSION/DIAGNOSES 1. Altered mental status. 2. Dehydration. 3. Prerenal azotemia. 4. Urinary tract infection. 5. Attention deficit/hyperactivity disorder. 6. Multiple sclerosis. 7. Hypothyroidism. PLAN: Place patient in Observation status on telemetry and continue with aggressive IV hydration for improvement of her mental status, which is already improving. Begin IV antibiotics with plan to transition to oral antibiotics. Await results of a urine culture which has already been sent from the ER. If she has improvement in mental status and can be safely discharged on oral medications for the UTI, we will plan to do this tomorrow. Determination regarding her living situation, whether she needs senior living care, or any assistance with caregivers, will be determined tomorrow with the help of Social Work. DEEP VENOUS THROMBOSIS PROPHYLAXIS: Pharmacotherapy. CODE STATUS: FULL CODE. ATTESTATION: Patient is expected to be discharged or transferred to another facility within 96 hours: Yes. TD: 02/09/2020 18:42 MTDKatherin
[2020-02-09] MEDS: FAMOTIDINE 20 MG/2 ML SYRINGE IVP SCH (21:21)
[2020-02-09] MEDS ORDERED: diphenhydrAMINE INJ 50 MG/ML VIAL IVP STA (23:41)
[2020-02-10] MEDS: D5NS W/20 MEQ KCL 1,000 ML IV SCH (00:34)
[2020-02-10] MEDS: SODIUM CHLORIDE FLUSH 0.9% 10 ML SYRINGE IVP SCH ×3 (00:39→17:46)
[2020-02-10] MEDS: MEROPENEM 1 GM in SODIUM CHLORIDE 0.9% MINIBAG 100 ML IV SCH ×2 (02:55→14:15)
[2020-02-10] MEDS: ENOXAPARIN 40 MG/0.4 ML SYRINGE SUBQ SCH (09:31)
[2020-02-10] MEDS: FAMOTIDINE 20 MG/2 ML SYRINGE IVP SCH (09:33)
[2020-02-10] MEDS: NICOTINE 14 MG PATCH TOP SCH (09:33)
[2020-02-10] MEDS: SODIUM CHLORIDE FLUSH 0.9% 10 ML SYRINGE IVP PRN ×3 (09:34→18:06)
[2020-02-10 09:48] LABS: BASOPHILS # (AUTO) 0.1 10^3/uL (0.0-0.1); EOSINOPHILS # (AUTO) 0.2 10^3/uL (0.0-0.7); EOSINOPHILS % (AUTO) 2.2 %; LYMPHOCYTES # (AUTO) 2.1 10^3/uL (1.5-3.5); LYMPHOCYTES % (AUTO) 25.4 %; MEAN CORPUSCULAR HEMOGLOBIN 30.2 pg (27.0-31.0); MEAN CORPUSCULAR HGB CONC 30.5 g/dL (32.0-36.0); MEAN CORPUSCULAR VOLUME 98.7 fL (81.0-99.0); MEAN PLATELET VOLUME 10.4 fL (7.9-10.8); MONOCYTES # (AUTO) 0.6 10^3/uL (0.0-1.0); MONOCYTES % (AUTO) 6.8 %; NEUTROPHILS # (AUTO) 5.3 10^3/uL (1.5-6.6); NEUTROPHILS % (AUTO) 64.2 %; PLT - PLATELET COUNT 247 10^3/uL (130-450); RED BLOOD COUNT 3.98 10^6/uL (4.20-5.40); RED CELL DISTRIBUTION WIDTH 14.4 % (12.0-15.0); WHITE BLOOD COUNT 8.3 x10^3/uL (4.8-10.8)
[2020-02-10 09:59] LABS: CALCIUM 8.6 mg/dL (8.5-10.3); CREATININE 0.8 mg/dL (0.4-1.0)
--- NOTE | 2020-02-10 11:25 | PHARMACY PROGRESS NOTE ---
- Best Possible Medication History Admit Date and Time: 02/09/20 1404 Processed by: Pharmacy Medication History completed: Yes Patient Interview: Completed Secondary Source(s): Physician records (PATIENT UNABLE TO INTERVIEW BY PHARMACY. PATIENT NOT KNOWLEDGEABLE OF WHAT SHE TAKES AT HOME. MEDICATION RECONCILIATION COMPLETED USING INSURANCE AND PROVIDER RECORDS. ), Pharmacy records, Insurance records As the person ultimately responsible for medication therapy, providers are able to order a medication from an existing home medication list in [facility] via the "Reconcile Routine" prior to Confirmation of that medication by software support engineer. Such practice is discouraged except when the physician, in their clinical judgment, deems that a medical need exists for a medication without regard to previous use.
--- NOTE | 2020-02-10 11:50 | Discharge Plan ---
Discharge Plan Problem Reviewed?: Yes Disposition: Home, Self Care Condition: Stable Prescriptions: Cephalexin [Keflex] 500 mg PO TID #15 capsule Phenazopyridine [Pyridium] 100 mg PO TID #9 tablet Diet: Regular Activity Restrictions: Activity as Tolerated Shower Restrictions: No Driving Restrictions: Yes (Because of being nearly comatose,you may not operate a car until OKd by PCP) Instruction Topics: ED UTI Cystitis Female Health Concerns: You were admitted to Observation status in the hospital after you were found nearly comatose and again the cause was dehydration and a urinary tract infection. The urine is growing a bacteria called E. coli. You are being discharged to complete a course of oral antibiotics with Keflex 3 times a day, and also a prescription for Pyridium for the burning and pain you get with urination. The new prescriptions were electronically sent to your preferred pharmacy: [facility] in [place]. You need to drink more fluids especially for the next 5 days. Resume all your other prehospital medications. Sulfur Burner spoke to you about getting extra help at home which will be arranged. You were given a list of primary care providers to establish with, if you want a change from Beatriz Medel NP. YOU ARE MEDICALLY RESTRICTED FROM DRIVING A VEHICLE, BECAUSE YOU CAME IN [place]. Police take this very seriously and you could be arrested if you are found driving with this medical restriction. YOU MUST GET CLEARANCE TO RESUME DRIVING A CAR FROM YOUR PCP or other Provisder. Plan of Treatment: As above. Care Goals: Improvement in symptoms and stabilization are the goals. Assessment: Patient understands and is agreeable with the plan. Written reminders and instructions wer provided to the patient. Additional Instructions or Follow Up instructions: Please see your Primary Care Provider in the next 5 to 7 days for hospital follow-up. You are given a list of providers by our Sulfur Burner, and you said you would make your own appointment to a new PCP. No Smoking: If you smoke, Please STOP! Call for help.
[2020-02-10] MEDS ORDERED: POTASSIUM CHLORIDE INJ 40 MEQ in SODIUM CHLORIDE 0.9% 500 ML IV ONE (12:00)
[2020-02-10] MEDS ORDERED: POTASSIUM CHLOR 10 MEQ/100 ML 10 MEQ/100 ML BAG IV SCH (12:00)
--- NOTE | 2020-02-10 12:08 | DISCHARGE SUMMARY ---
Discharge Summary Admit Date: 02/09/20 Discharge Date: 02/10/20 Discharging Provider: Dr Divina Cesar Primary Care Provider: Latoya Medel NP Code Status: Attempt Resuscitation Condition at Discharge: Stable - HPI History of Present Illness: This is a 64-year-old white female who lives alone and is independent, with a history of ADHD, multiple sclerosis currently not in exacerbation, history of intermittent medication use in excess, history of altered mental status admissions caused by UTI and dehydration. Patient was found obtunded by her neighbor who called an ambulance and the patient was brought to the ER obtunded and a code stroke work-up was started. Review of the chart revealed this type of presentation when she gets dehydrated with a UTI. She started to receive and got 2.5 L of crystalloid in the ER and she awoke. Her head CT and neck CTA were unremarkable. The urinalysis found bacteriuria and positive nitrites. She is being admitted for dehydration and UTI treatment. She is obtunded and recalls nothing about this presentation. She cannot discuss her wishes regarding CODE STATUS currently. - HOSPITAL COURSE Hospital Course: 1) Altered mental status 2) Dehydration 3) Pre-renal azotemia 4) E coli UTI 5) ADHD 6) Multiple sclerosis 7) Hypothyroidism 8) Hypokalemia 9) Low back pain - ALLERGIES Allergies/Adverse Reactions: Allergies Allergy/AdvReac Type Severity Reaction Status Date / Time No Known Drug Allergies Allergy Verified 02/09/20 08:46 - MEDICATIONS Home Medications: Ambulatory Orders Medication Instructions Recorded Confirmed Cholestyramine [Questran] 4 gm PO DAILY 04/28/13 02/10/20 Potassium Chloride 10 meq PO DAILY #7 tablet.er 02/21/19 02/10/20 Acetaminophen 1,000 mg Q6HR PRN 07/18/19 02/10/20 Baclofen 10 mg PO DAILY 07/18/19 02/10/20 Calcium Carbonate/Vitamin D3 1 ea PO DAILY 07/18/19 02/10/20 [Calcium 500 mg-Vit D3 600 Unit] Clopidogrel [Plavix] 75 mg PO DAILY 07/18/19 02/10/20 Glucos Sul 2Kcl/MSM/Chond/C/Mn 1 cap PO DAILY 07/18/19 02/10/20 [Glucosamine Chondroitin Cap] Levothyroxine Sodium 50 mcg PO DAILY 07/18/19 02/10/20 Multivitamin/Iron/Folic Acid 1 ea ORAL DAILY 07/18/19 02/10/20 [Centrum Women Tablet] Atorvastatin [Lipitor] 40 mg PO DAILY 02/10/20 02/10/20 Cephalexin [Keflex] 500 mg PO TID #15 capsule 02/10/20 Methylphenidate HCl 40 mg PO DAILY 02/10/20 02/10/20 [Methylphenidate ER] Metoprolol Succinate [Toprol Xl] 25 mg PO BID 02/10/20 02/10/20 Phenazopyridine [Pyridium] 100 mg PO TID #9 tablet 02/10/20 levETIRAcetam [Roweepra] 500 mg PO BID 02/10/20 02/10/20 - LABS Result Diagrams: 02/11/20 04:37 02/11/20 04:37
[2020-02-10] MEDS ORDERED: ACETAMINOPHEN 325 MG TABLET PO PRN (13:18)
[2020-02-10] MEDS: PHENAZOPYRIDINE 100 MG TABLET PO SCH ×2 (14:15→20:43)
--- NOTE | 2020-02-10 15:16 | PROVIDER PROGRESS NOTE ---
Assessment/Plan - Problem List (1) Altered mental status Assessment/Plan: Her mentation improved significantly but not back to baseline entirely: she was seen by Physical Therapist who noted that the patient needed repeat cueing, was forgetful, easily distracted. Her gait is not normal and she cannot even put on her socks. She cannot be discharged safely, there is no one to stay with her today (both S ocial Work and branch service leader discussed this with her). Will admit her to Inpatient status due to continued altered mental status, and will continue to treat her infection, hydration, weakness. (2) Dehydration Assessment/Plan: DC IV this morning, to allow her to hydrate adequately orally, will assess if her oral intake is adequate for hydration while she is here. Follow BMP daily (3) E. coli UTI Assessment/Plan: Her last positive blood culture was Klebsiella that was ESBL-producing, therefore the iv Meropenem was chosen empirically at admission. She is growing E. coli, sensitivities not available. Will change to oral Keflex in anticipation of sensitive E. coli. (4) ADHD Assessment/Plan: Continue with her home meds for this (5) Multiple sclerosis Assessment/Plan: She does not have an active flareup but there is weakness of one leg more than the other, noticed today by the physical therapist (6) Hypothyroid Assessment/Plan: Continue with her home Synthroid dose for this. No TSH was done at admission, will check a TSH level. (7) Hypokalemia Assessment/Plan: Replace with IV runners. Follow BMP daily. (8) Chronic back pain Qualifiers: Back pain location: low back pain Back pain laterality: bilateral Sciatica presence: with sciatica Sciatica laterality: bilateral sciatica Qualified Code(s): M54.42 - Lumbago with sciatica, left side; M54.41 - Lumbago with sciatica, right side; G89.29 - Other chronic pain Assessment/Plan: Apparently she has a history of this and was requesting Percocet or oxycodone for treatment. (9) Prerenal azotemia Assessment/Plan: Resolved - Current Meds Current Meds: Current Medications Generic Name Dose Route Start Last Admin Trade Name Freq PRN Reason Stop Dose Admin Acetaminophen 650 mg 02/10/20 13:18 02/10/20 14:14 Tylenol PO 650 mg Q4HR PRN Administration Pain or Fever > 38C (100.4F) Enoxaparin Sodium 40 mg 02/09/20 14:07 02/10/20 09:31 Lovenox SUBQ 40 mg DAILY JIN Administration Famotidine 20 mg 02/09/20 21:00 02/10/20 09:33 Pepcid IVP 20 mg DAILY JIN Administration Meropenem 1 gm/ Sodium 100 mls @ 200 mls/hr 02/09/20 15:00 02/10/20 14:15 Chloride IV 200 mls/hr Q12H JIN Administration Potassium Chloride 40 meq/ 520 mls @ 125 mls/hr 02/10/20 12:00 02/10/20 12:24 Sodium Chloride IV 02/10/20 16:09 125 mls/hr ONCE ONE Administration Nicotine 1 patch 02/10/20 09:00 02/10/20 09:33 Nicoderm TOP 1 patch DAILY JIN Administration Phenazopyridine HCl 100 mg 02/10/20 14:00 02/10/20 14:15 Pyridium PO 100 mg TID JIN Administration Sodium Chloride 10 ml 02/09/20 14:04 02/10/20 11:17 Normal Saline Flush 0.9% IVP 10 ml PRN PRN Administration NEEDED PER PROVIDER ORDERS Sodium Chloride 10 ml 02/09/20 17:00 02/10/20 11:00 Normal Saline Flush 0.9% IVP Not Given 0100,0900,1700 JIN - Lab Result Fish Bone Diagrams: 02/10/20 09:30 02/10/20 09:30 - Additional Planning My Orders: My Active Orders 02/09/20 15:00 Meropenem [Merrem] 1 gm Sodium Chloride 0.9% Minibag [Normal Saline 0.9% Minibag] 100 ml IV Q12H 02/09/20 17:00 Sodium Chloride Flush 0.9% [Normal Saline Flush 0.9%] 10 ml IVP 0100,0900,1700 02/09/20 21:00 Famotidine [Pepcid] 20 mg IVP DAILY 02/10/20 Home Health Referral [CONS] Routine Social Work Consult [CONS] Routine Evaluate and Treat PT [PT] Routine 02/10/20 Breakfast Soft Mechanical Diet [DIET] 02/10/20 12:00 Potassium Chloride Inj 40 meq Sodium Chloride 0.9% [Normal Saline 0.9%] 500 ml IV ONCE 02/10/20 13:18 Acetaminophen [Tylenol] 650 mg PO Q4HR PRN 02/10/20 14:00 Phenazopyridine [Pyridium] 100 mg PO TID Subjective - Subjective Patient Reports: Feeling Better, Resting Comfortably, Other (She cannot remember the events of yesterday, cannot member how she got here. She complains of low back pain and burning with urination still.) Objective Vital Signs: Vital Signs - 24 hr 02/09/20 02/09/20 02/09/20 16:00 20:12 23:57 Temperature 36.5 C 36.6 C 36.4 C L Heart Rate [ 81 Brachial] Heart Rate [ 77 94 Radial] Heart Rate [ Supine] Respiratory 18 19 20 Rate Blood Pressure 131/66 H 102/65 106/63 [Right Brachial artery] Blood Pressure [Supine] O2 Saturation 99 97 98 02/10/20 02/10/20 02/10/20 04:35 07:28 11:10 Temperature 36.6 C 36.6 C Heart Rate [ 83 74 Brachial] Heart Rate [ Radial] Heart Rate [ 79 Supine] Respiratory 18 18 Rate Blood Pressure 109/57 L 97/55 L [Right Brachial artery] Blood Pressure 102/55 L [Supine] O2 Saturation 99 98 02/10/20 14:16 Temperature 37.1 C Heart Rate [ 87 Brachial] Heart Rate [ Radial] Heart Rate [ Supine] Respiratory 16 Rate Blood Pressure 112/61 [Right Brachial artery] Blood Pressure [Supine] O2 Saturation 100 Oxygen O2 Source Room air I&O (Last 24 Hrs): Intake and Output Totals x24h 02/08/20 02/09/20 02/10/20 23:59 23:59 23:59 Intake Total 3943.333 1640 Output Total 250 Balance 3943.333 1390 General: Alert, Oriented x3, No acute distress HEENT: EOMI, Mucous membr. moist/pink Neck: Supple, No JVD Neuro: Alert, Non Focal - Results Results: Laboratory Results WBC 8.3 x10^3/uL (4.8-10.8) 02/10/20 09:30 RBC 3.98 10^6/uL (4.20-5.40) L 02/10/20 09:30 Hgb 12.0 g/dL (12.0-16.0) 02/10/20 09:30 Hct 39.3 % (37.0-47.0) 02/10/20 09:30 MCV 98.7 fL (81.0-99.0) 02/10/20 09:30 MCH 30.2 pg (27.0-31.0) 02/10/20 09:30 MCHC 30.5 g/dL (32.0-36.0) L 02/10/20 09:30 RDW 14.4 % (12.0-15.0) 02/10/20 09:30 Plt Count 247 10^3/uL (130-450) 02/10/20 09:30 MPV 10.4 fL (7.9-10.8) 02/10/20 09:30 Neut # (Auto) 5.3 10^3/uL (1.5-6.6) 02/10/20 09:30 Lymph # (Auto) 2.1 10^3/uL (1.5-3.5) 02/10/20 09:30 [place] # (Auto) 0.6 10^3/uL (0.0-1.0) 02/10/20 09:30 Eos # (Auto) 0.2 10^3/uL (0.0-0.7) 02/10/20 09:30 Baso # (Auto) 0.1 10^3/uL (0.0-0.1) 02/10/20 09:30 Absolute Nucleated RBC 0.00 x10^3/uL 02/10/20 09:30 Nucleated RBC % 0.0 /100WBC 02/10/20 09:30 PT 13.1 secs (9.9-12.6) H 02/09/20 09:32 INR 1.2 (0.8-1.2) 02/09/20 09:32 APTT 27.3 secs (24.9-33.3) 02/09/20 09:32 Sodium 144 mmol/L (135-145) 02/10/20 09:30 Potassium 3.3 mmol/L (3.5-5.0) L 02/10/20 09:30 Chloride 114 mmol/L (101-111) H 02/10/20 09:30 Carbon Dioxide 22 mmol/L (21-32) 02/10/20 09:30 Anion Gap 8.0 (6-13) 02/10/20 09:30 BUN 12 mg/dL (6-20) 02/10/20 09:30 Creatinine 0.8 mg/dL (0.4-1.0) 02/10/20 09:30 Estimated GFR (MDRD) 72 (>89) L 02/10/20 09:30 Glucose 97 mg/dL (70-100) 02/10/20 09:30 Lactic Acid 1.8 mmol/L (0.5-2.2) 02/09/20 09:32 Calcium 8.6 mg/dL (8.5-10.3) 02/10/20 09:30 Total Bilirubin 0.8 mg/dL (0.2-1.0) 02/09/20 09:18 AST 20 IU/L (10-42) 02/09/20 09:18 ALT 13 IU/L (10-60) 02/09/20 09:18 Alkaline Phosphatase 107 IU/L (42-121) 02/09/20 09:18 Total Protein 8.3 g/dL (6.7-8.2) H 02/09/20 09:18 Albumin 4.4 g/dL (3.2-5.5) 02/09/20 09:18 Globulin 3.9 g/dL (2.1-4.2) 02/09/20 09:18 Albumin/Globulin Ratio 1.1 (1.0-2.2) 02/09/20 09:18 Lipase 31 U/L (22-51) 02/09/20 09:18 Urine Color YELLOW 02/09/20 13:00 Urine Clarity CLEAR (CLEAR) 02/09/20 13:00 Urine pH 6.0 PH (5.0-7.5) 02/09/20 13:00 Ur Specific [place] 1.010 (1.002-1.030) 02/09/20 13:00 Urine Protein NEGATIVE mg/dL (NEGATIVE) 02/09/20 13:00 Urine Glucose (UA) NEGATIVE mg/dL (NEGATIVE) 02/09/20 13:00 Urine Ketones NEGATIVE mg/dL (NEGATIVE) 02/09/20 13:00 Urine Occult Blood MODERATE (NEGATIVE) H 02/09/20 13:00 Urine Nitrite POSITIVE (NEGATIVE) H 02/09/20 13:00 Urine Bilirubin NEGATIVE (NEGATIVE) 02/09/20 13:00 Urine Urobilinogen 0.2 (NORMAL) E.U./dL (NORMAL) 02/09/20 13:00 Ur Leukocyte Esterase NEGATIVE (NEGATIVE) 02/09/20 13:00 Urine RBC 0-5 /HPF (0-5) 02/09/20 13:00 Urine WBC 0-3 /HPF (0-5) 02/09/20 13:00 Ur Squamous Epith Cells NONE SEEN (<= Few) 02/09/20 13:00 Urine Bacteria Many /HPF (None Seen) H 02/09/20 13:00 Ur Microscopic Review INDICATED 02/09/20 13:00 Urine Culture Comments INDICATED 02/09/20 13:00 Urine Opiates Screen NEGATIVE (NEGATIVE) 02/09/20 13:17 Ur Oxycodone Screen NEGATIVE (NEGATIVE) 02/09/20 13:17 Urine Methadone Screen NEGATIVE (NEGATIVE) 02/09/20 13:17 Ur Propoxyphene Screen NEGATIVE (NEGATIVE) 02/09/20 13:17 Ur Barbiturates Screen NEGATIVE (NEGATIVE) 02/09/20 13:17 Ur Tricyclics Screen NEGATIVE (NEGATIVE) 02/09/20 13:17 Ur Phencyclidine Scrn NEGATIVE (NEGATIVE) 02/09/20 13:17 Ur Amphetamine Screen NEGATIVE (NEGATIVE) 02/09/20 13:17 U Methamphetamines Scrn NEGATIVE (NEGATIVE) 02/09/20 13:17 U Benzodiazepines Scrn NEGATIVE (NEGATIVE) 02/09/20 13:17 Urine Cocaine Screen NEGATIVE (NEGATIVE) 02/09/20 13:17 U Cannabinoids Screen NEGATIVE (NEGATIVE) 02/09/20 13:17
[2020-02-10] MEDS ORDERED: cephALEXin 250 MG CAPSULE PO SCH (20:00)
[2020-02-10] MEDS: METOPROLOL SUCCINATE 25 MG TABLET PO SCH (20:42)
[2020-02-10] MEDS: levETIRAcetam 250 MG TABLET PO SCH (20:42)
[2020-02-11] MEDS: SODIUM CHLORIDE FLUSH 0.9% 10 ML SYRINGE IVP SCH ×3 (00:55→17:23)
[2020-02-11] MEDS ORDERED: MIN OIL/DIMETHICON/COCONUT OIL 92 GM TUBE TOP PRN (00:56)
[2020-02-11 05:17] LABS: BASOPHILS # (AUTO) 0.1 10^3/uL (0.0-0.1); BASOPHILS % (AUTO) 0.9 %; EOSINOPHILS # (AUTO) 0.1 10^3/uL (0.0-0.7); EOSINOPHILS % (AUTO) 0.5 %; HGB - HEMOGLOBIN 12.7 g/dL (12.0-16.0); LYMPHOCYTES % (AUTO) 16.9 %; MEAN CORPUSCULAR HEMOGLOBIN 30.8 pg (27.0-31.0); MEAN CORPUSCULAR HGB CONC 32.5 g/dL (32.0-36.0); MEAN CORPUSCULAR VOLUME 94.9 fL (81.0-99.0); MEAN PLATELET VOLUME 10.9 fL (7.9-10.8); MONOCYTES # (AUTO) 0.8 10^3/uL (0.0-1.0); MONOCYTES % (AUTO) 6.6 %; NEUTROPHILS # (AUTO) 8.7 10^3/uL (1.5-6.6); NEUTROPHILS % (AUTO) 74.7 %; PLT - PLATELET COUNT 264 10^3/uL (130-450); RED BLOOD COUNT 4.12 10^6/uL (4.20-5.40); RED CELL DISTRIBUTION WIDTH 14.3 % (12.0-15.0); WHITE BLOOD COUNT 11.7 x10^3/uL (4.8-10.8)
[2020-02-11 05:26] LABS: CREATININE 0.8 mg/dL (0.4-1.0); MAGNESIUM 1.8 mg/dL (1.7-2.8)
[2020-02-11] MEDS: PHENAZOPYRIDINE 100 MG TABLET PO SCH ×3 (05:58→22:11)
[2020-02-11] MEDS ORDERED: GLUCOS SUL PO SCH (09:00)
[2020-02-11] MEDS ORDERED: [UNRECOGNIZED DRUG - OTHER] PO SCH (09:00)
--- NOTE | 2020-02-11 09:25 | PROVIDER PROGRESS NOTE ---
Assessment/Plan - Problem List (1) E. coli UTI Assessment/Plan: Her WBC alyssa to 11.7 today, her WBC was normal the first 2 days. Yesterday the iv Meropenem was stopped and oral Keflex tid was started in anti cipation of a non-ESBL producing bacteria. The urine cx quickly grew E coli and the sensitivities are available today: it shows that this E. coli is resistant to Cefazolin. This may explain why Keflex being started yesterday is associated with a rising white blood count today. Will stop Keflex and treat with a dose of oral Fosfomycin x1. We will check urinalysis for bacteria in 48 hours, if she is still here. If still has bacteriurea, she could be re-treated with Fosfomycin in 72 hours. (This plan was discussed with Pharmacist, Yenny). Await blood culture results. No discharge today. (2) Urinary incontinence Assessment/Plan: The nurse reports that the patient is incontinent of urine and stool. This is adding to her recurrences of UTI and dehydration and therefore her AMS. She is not ready for DCh. She will need further nursing caregiving. (3) Altered mental status Assessment/Plan: Patient presented with with obtundation, was nearly comatose, found by chance by her neighbor who called an ambulance. In the ER, she underwent Code Stroke protocol, which was negative, and chart review revealed that she has had multiple occurences of this type of presentation when she gets UTIs and dehydration. She got 2.5L of iv fluids in the ER and continued on iv fluids for a day. Her mentation improved significantly yesterday, but not back to her baseline entirely. Yesterday, she was seen by Physical Therapist who noted that the patient needed repeat cueing, was forgetful, easily distracted. Her gait was not normal and she could not even put on her socks. Therefore, she was admitted to Inpatient status due to continued altered mental status, as she needed continued treatment of her infection and AMS/weakness. Continue with PT today. She may need a Mini-Mental exam done by OT. Patient yesterday requested narcotics for her low back pain, and stated she was on this at home however the reconciled med list did not show any narcotic pain meds. Will try to minimize use of narcotics in order to prevent sedation and confusion, and will order Toradol. (4) ADHD Assessment/Plan: Her home medications for this have been resumed here. (5) Multiple sclerosis Assessment/Plan: There is some weakness of the lower extremities from her multiple sclerosis, as noted in the PT eval note. (6) Hypothyroid Assessment/Plan: Will check TSH. For now we will continue her home dose of thyroid replacement (7) Chronic back pain Qualifiers: Back pain location: low back pain Back pain laterality: bilateral Sciatica presence: with sciatica Sciatica laterality: bilateral sciatica Qualified Code(s): M54.42 - Lumbago with sciatica, left side; M54.41 - Lumbago with sciatica, right side; G89.29 - Other chronic pain Assessment/Plan: Patient yesterday requested narcotics for her low back pain, and stated she was on this at home however the reconciled med list did not show any narcotic pain meds. Will try to minimize use of narcotics in order to prevent sedation and confusion, and will order Toradol. (8) Dehydration Assessment/Plan: Resolved after 1 day of iv fluids. Clinically she does not appear dehydrated today and her BUN and creatinine remain normal today, as yesterday. (9) Prerenal azotemia Assessment/Plan: Resolved (10) Hypokalemia Assessment/Plan: Replaced. Potassium normal today. Follow BMP daily - Current Meds Current Meds: Current Medications Generic Name Dose Route Start Last Admin Trade Name Jarekq PRN Reason Stop Dose Admin Enoxaparin Sodium 40 mg 02/09/20 14:07 02/10/20 09:31 Lovenox SUBQ 40 mg DAILY JIN Administration Famotidine 20 mg 02/09/20 21:00 02/10/20 09:33 Pepcid IVP 20 mg DAILY JIN Administration Levetiracetam 500 mg 02/10/20 21:00 02/10/20 20:42 Keppra PO 500 mg BID JIN Administration Metoprolol Succinate 25 mg 02/10/20 21:00 02/10/20 20:42 Toprol Xl PO 25 mg BID JIN Administration Nicotine 1 patch 02/10/20 09:00 02/10/20 09:33 Nicoderm TOP 1 patch DAILY JIN Administration Phenazopyridine HCl 100 mg 02/10/20 14:00 02/11/20 05:58 Pyridium PO 100 mg TID JIN Administration Sodium Chloride 10 ml 10/06/20 14:04 02/10/20 18:06 Normal Saline Flush 0.9% IVP 10 ml PRN PRN Administration NEEDED PER PROVIDER ORDERS Sodium Chloride 10 ml 02/09/20 17:00 02/11/20 00:55 Normal Saline Flush 0.9% IVP 10 ml 0100,0900,1700 JIN Administration - Lab Result Fish Bone Diagrams: 02/11/20 04:37 02/11/20 04:37 - Additional Planning My Orders: My Active Orders 02/10/20 14:00 Phenazopyridine [Pyridium] 100 mg PO TID 02/10/20 18:40 Acetaminophen [Tylenol] 1,000 mg PO Q6HR PRN 02/10/20 21:00 Metoprolol Succinate [Toprol Xl] 25 mg PO BID levETIRAcetam [Keppra] 500 mg PO BID 02/11/20 00:56 Min Oil/Dimeth/Coconut Oil Crm [Cavilon] 1 applic TOP PRN PRN 02/11/20 09:00 Atorvastatin [Lipitor] 40 mg PO DAILY Baclofen [Lioresal] 10 mg PO DAILY Calcium Carbonate [Tums] 500 mg PO DAILY Cholestyramine [Questran] 4 gm PO DAILY Clopidogrel [Plavix] 75 mg PO DAILY Levothyroxine [Synthroid] 50 mcg PO DAILY Methylphenidate HCl [Methylphenidate ER] 40 mg PO DAILY Multivitamin [Theragran] 1 tab PO DAILY 02/11/20 12:00 Fosfomycin Tromethamine [Monurol] 3 gm PO ONCE ONE 02/13/20 12:00 UA w/ MICROSCOPIC, CULT IF [URIN] Routine Subjective - Subjective Patient Reports: Feeling Better, Resting Comfortably, No Complaints Objective Vital Signs: Vital Signs - 24 hr 02/10/20 02/10/20 02/10/20 11:10 14:16 16:11 Temperature 37.1 C 37.1 C Heart Rate [ 87 85 Brachial] Heart Rate [ 79 Supine] Respiratory 16 18 Rate Blood Pressure 112/61 108/52 L [Right Brachial artery] Blood Pressure 102/55 L [Supine] O2 Saturation 100 98 02/10/20 02/11/20 20:40 00:13 Temperature 36.9 C 37.3 C Heart Rate [ 81 74 Brachial] Heart Rate [ Supine] Respiratory 20 Rate Blood Pressure 133/59 H 126/70 [Right Brachial artery] Blood Pressure [Supine] O2 Saturation 96 96 Oxygen O2 Source Room air I&O (Last 24 Hrs): Intake and Output Totals x24h 02/09/20 02/10/20 02/11/20 23:59 23:59 23:59 Intake Total 3943.333 2560 Output Total 250 400 Balance 3943.333 2310 -400 General: Alert, Oriented x3, Other (Answers are more sharp, she appears less "foggy") HEENT: Mucous membr. moist/pink Neck: Supple Neuro: Alert, Non Focal Cardiovascular: Regular rate Respiratory: No respiratory distress Abdomen: Soft Extremities: No edema - Results Results: Laboratory Results WBC 11.7 x10^3/uL (4.8-10.8) H 02/11/20 04:37 RBC 4.12 10^6/uL (4.20-5.40) L 02/11/20 04:37 Hgb 12.7 g/dL (12.0-16.0) 02/11/20 04:37 Hct 39.1 % (37.0-47.0) 02/11/20 04:37 MCV 94.9 fL (81.0-99.0) 02/11/20 04:37 MCH 30.8 pg (27.0-31.0) 02/11/20 04:37 MCHC 32.5 g/dL (32.0-36.0) 02/11/20 04:37 RDW 14.3 % (12.0-15.0) 02/11/20 04:37 Plt Count 264 10^3/uL (130-450) 02/11/20 04:37 MPV 10.9 fL (7.9-10.8) H 02/11/20 04:37 Neut # (Auto) 8.7 10^3/uL (1.5-6.6) H 02/11/20 04:37 Lymph # (Auto) 2.0 10^3/uL (1.5-3.5) 02/11/20 04:37 [place] # (Auto) 0.8 10^3/uL (0.0-1.0) 02/11/20 04:37 Eos # (Auto) 0.1 10^3/uL (0.0-0.7) 02/11/20 04:37 Baso # (Auto) 0.1 10^3/uL (0.0-0.1) 02/11/20 04:37 Absolute Nucleated RBC 0.00 x10^3/uL 02/11/20 04:37 Nucleated RBC % 0.0 /100WBC 02/11/20 04:37 PT 13.1 secs (9.9-12.6) H 02/09/20 09:32 INR 1.2 (0.8-1.2) 02/09/20 09:32 APTT 27.3 secs (24.9-33.3) 02/09/20 09:32 Sodium 139 mmol/L (135-145) 02/11/20 04:37 Potassium 3.7 mmol/L (3.5-5.0) 02/11/20 04:37 Chloride 112 mmol/L (101-111) H 02/11/20 04:37 Carbon Dioxide 19 mmol/L (21-32) L 02/11/20 04:37 Anion Gap 8.0 (6-13) 02/11/20 04:37 BUN 14 mg/dL (6-20) 02/11/20 04:37 Creatinine 0.8 mg/dL (0.4-1.0) 02/11/20 04:37 Estimated GFR (MDRD) 72 (>89) L 02/11/20 04:37 Glucose 91 mg/dL (70-100) 02/11/20 04:37 Lactic Acid 1.8 mmol/L (0.5-2.2) 02/09/20 09:32 Calcium 9.0 mg/dL (8.5-10.3) 02/11/20 04:37 Magnesium 1.8 mg/dL (1.7-2.8) 02/11/20 04:37 Total Bilirubin 0.8 mg/dL (0.2-1.0) 02/09/20 09:18 AST 20 IU/L (10-42) 02/09/20 09:18 ALT 13 IU/L (10-60) 02/09/20 09:18 Alkaline Phosphatase 107 IU/L (42-121) 02/09/20 09:18 Total Protein 8.3 g/dL (6.7-8.2) H 02/09/20 09:18 Albumin 4.4 g/dL (3.2-5.5) 02/09/20 09:18 Globulin 3.9 g/dL (2.1-4.2) 02/09/20 09:18 Albumin/Globulin Ratio 1.1 (1.0-2.2) 02/09/20 09:18 Lipase 31 U/L (22-51) 02/09/20 09:18 Urine Color YELLOW 02/09/20 13:00 Urine Clarity CLEAR (CLEAR) 02/09/20 13:00 Urine pH 6.0 PH (5.0-7.5) 02/09/20 13:00 Ur Specific [place] 1.010 (1.002-1.030) 02/09/20 13:00 Urine Protein NEGATIVE mg/dL (NEGATIVE) 02/09/20 13:00 Urine Glucose (UA) NEGATIVE mg/dL (NEGATIVE) 02/09/20 13:00 Urine Ketones NEGATIVE mg/dL (NEGATIVE) 02/09/20 13:00 Urine Occult Blood MODERATE (NEGATIVE) H 02/09/20 13:00 Urine Nitrite POSITIVE (NEGATIVE) H 02/09/20 13:00 Urine Bilirubin NEGATIVE (NEGATIVE) 02/09/20 13:00 Urine Urobilinogen 0.2 (NORMAL) E.U./dL (NORMAL) 02/09/20 13:00 Ur Leukocyte Esterase NEGATIVE (NEGATIVE) 02/09/20 13:00 Urine RBC 0-5 /HPF (0-5) 02/09/20 13:00 Urine WBC 0-3 /HPF (0-5) 02/09/20 13:00 Ur Squamous Epith Cells NONE SEEN (<= Few) 02/09/20 13:00 Urine Bacteria Many /HPF (None Seen) H 02/09/20 13:00 Ur Microscopic Review INDICATED 02/09/20 13:00 Urine Culture Comments INDICATED 02/09/20 13:00 Urine Opiates Screen NEGATIVE (NEGATIVE) 02/09/20 13:17 Ur Oxycodone Screen NEGATIVE (NEGATIVE) 02/09/20 13:17 Urine Methadone Screen NEGATIVE (NEGATIVE) 02/09/20 13:17 Ur Propoxyphene Screen NEGATIVE (NEGATIVE) 02/09/20 13:17 Ur Barbiturates Screen NEGATIVE (NEGATIVE) 02/09/20 13:17 Ur Tricyclics Screen NEGATIVE (NEGATIVE) 02/09/20 13:17 Ur Phencyclidine Scrn NEGATIVE (NEGATIVE) 02/09/20 13:17 Ur Amphetamine Screen NEGATIVE (NEGATIVE) 02/09/20 13:17 U Methamphetamines Scrn NEGATIVE (NEGATIVE) 02/09/20 13:17 U Benzodiazepines Scrn NEGATIVE (NEGATIVE) 02/09/20 13:17 Urine Cocaine Screen NEGATIVE (NEGATIVE) 02/09/20 13:17 U Cannabinoids Screen NEGATIVE (NEGATIVE) 02/09/20 13:17
[2020-02-11] MEDS: METOPROLOL SUCCINATE 25 MG TABLET PO SCH ×2 (09:46→22:12)
[2020-02-11] MEDS: LEVOTHYROXINE 25 MCG TABLET PO SCH (09:49)
[2020-02-11] MEDS: CLOPIDOGREL 75 MG TABLET PO SCH (09:49)
[2020-02-11] MEDS: MULTIVITAMIN TABLET PO SCH (09:49)
[2020-02-11] MEDS: ATORVASTATIN 40 MG TABLET PO SCH (09:51)
[2020-02-11] MEDS: BACLOFEN 10 MG TABLET PO SCH (09:51)
[2020-02-11] MEDS: levETIRAcetam 250 MG TABLET PO SCH ×2 (09:52→22:11)
[2020-02-11] MEDS: ACETAMINOPHEN 500 MG TABLET PO PRN (09:52)
[2020-02-11] MEDS: CALCIUM CARBONATE CHEW 500 MG TABLET PO SCH (09:53)
[2020-02-11] MEDS: FAMOTIDINE 20 MG/2 ML SYRINGE IVP SCH (09:53)
[2020-02-11] MEDS: CHOLESTYRAMINE 4 GM PACKET PO SCH (09:53)
[2020-02-11] MEDS: METHYLPHENIDATE HCL 40 MG PO SCH (09:58)
[2020-02-11] MEDS: ENOXAPARIN 40 MG/0.4 ML SYRINGE SUBQ SCH (10:03)
[2020-02-11] MEDS ORDERED: KETOROLAC 10 MG TABLET PO PRN (12:00)
[2020-02-11] MEDS ORDERED: FOSFOMYCIN TROMETHAMINE 3 GM PACKET PO ONE (12:00)
[2020-02-11] MEDS: NICOTINE 14 MG PATCH TOP SCH (12:06)
[2020-02-11] MEDS ORDERED: FAMOTIDINE 20 MG TABLET PO SCH (21:00)
[2020-02-12 05:38] LABS: BASOPHILS # (AUTO) 0.1 10^3/uL (0.0-0.1); BASOPHILS % (AUTO) 0.5 %; EOSINOPHILS # (AUTO) 0.2 10^3/uL (0.0-0.7); EOSINOPHILS % (AUTO) 2.3 %; HGB - HEMOGLOBIN 12.4 g/dL (12.0-16.0); LYMPHOCYTES % (AUTO) 20.4 %; MEAN CORPUSCULAR HEMOGLOBIN 30.2 pg (27.0-31.0); MEAN CORPUSCULAR HGB CONC 32.8 g/dL (32.0-36.0); MEAN PLATELET VOLUME 10.6 fL (7.9-10.8); MONOCYTES # (AUTO) 0.8 10^3/uL (0.0-1.0); MONOCYTES % (AUTO) 8.3 %; NEUTROPHILS # (AUTO) 6.6 10^3/uL (1.5-6.6); NEUTROPHILS % (AUTO) 68.2 %; PLT - PLATELET COUNT 257 10^3/uL (130-450); RED BLOOD COUNT 4.11 10^6/uL (4.20-5.40); RED CELL DISTRIBUTION WIDTH 13.8 % (12.0-15.0); WHITE BLOOD COUNT 9.7 x10^3/uL (4.8-10.8)
[2020-02-12 05:47] LABS: CALCIUM 8.7 mg/dL (8.5-10.3); CREATININE 0.7 mg/dL (0.4-1.0); MAGNESIUM 1.9 mg/dL (1.7-2.8)
[2020-02-12] MEDS: PHENAZOPYRIDINE 100 MG TABLET PO SCH (07:00)
[2020-02-12] MEDS: SODIUM CHLORIDE FLUSH 0.9% 10 ML SYRINGE IVP SCH ×2 (07:00→09:14)
[2020-02-12] MEDS ORDERED: POTASSIUM CHLORIDE 20 MEQ TABLET PO ONE (08:24)
[2020-02-12] MEDS: ACETAMINOPHEN 500 MG TABLET PO PRN (08:56)
[2020-02-12] MEDS: ATORVASTATIN 40 MG TABLET PO SCH (09:03)
[2020-02-12] MEDS: CALCIUM CARBONATE CHEW 500 MG TABLET PO SCH (09:03)
[2020-02-12] MEDS: ENOXAPARIN 40 MG/0.4 ML SYRINGE SUBQ SCH (09:07)
[2020-02-12] MEDS: CLOPIDOGREL 75 MG TABLET PO SCH (09:07)
[2020-02-12] MEDS: levETIRAcetam 250 MG TABLET PO SCH (09:09)
[2020-02-12] MEDS: LEVOTHYROXINE 25 MCG TABLET PO SCH (09:11)
[2020-02-12] MEDS: MULTIVITAMIN TABLET PO SCH (09:12)
[2020-02-12] MEDS: METOPROLOL SUCCINATE 25 MG TABLET PO SCH (09:12)
[2020-02-12] MEDS: NICOTINE 14 MG PATCH TOP SCH (09:14)
[2020-02-12] MEDS: BACLOFEN 10 MG TABLET PO SCH (09:14)
[2020-02-12] MEDS: METHYLPHENIDATE HCL 40 MG PO SCH (09:16)
[2020-02-12] MEDS: CHOLESTYRAMINE 4 GM PACKET PO SCH (09:17)
--- NOTE | 2020-02-12 10:39 | Discharge Plan ---
Discharge Plan Problem Reviewed?: Yes Disposition: 06 Home Health Service Condition: Stable Diet: Regular Activity Restrictions: Activity as Tolerated Shower Restrictions: No Driving Restrictions: Yes (Because of being nearly comatose,you may not operate a car until OKd by PCP) Instruction Topics: ED UTI Cystitis Female Health Concerns: You were admitted to Observation status in the hospital after you were found nearly comatose and again the cause was dehydration and a urinary tract infection. The urine is growing a bacteria called E. coli. You need to drink more fluids especially for the next 5 days. Resume all your other prehospital medications. Passenger Car Conductor spoke to you about getting extra help at home which will be arranged. You were given a list of primary care providers to establish with, if you want a change from Beatriz Medel NP. YOU ARE MEDICALLY RESTRICTED FROM DRIVING A VEHICLE, BECAUSE YOU CAME IN COMATOSE. Police take this very seriously and you could be arrested if you are found driving with this medical restriction. YOU MUST GET CLEARANCE TO RESUME DRIVING A CAR FROM YOUR PCP or other Provider. Plan of Treatment: You will not be discharged on antibiotics as you have already completed the treatment while you were in the hospital. Care Goals: Improvement in symptoms and stabilization are the goals. Assessment: Patient understands and is agreeable with the plan. Written reminders and instructions were provided to the patient. Additional Instructions or Follow Up instructions: Please see your Primary Care Provider in the next 5 to 7 days for hospital follow-up. You are given a list of providers by our Passenger Car Conductor, and you said you would make your own appointment to a new PCP. No Smoking: If you smoke, Please STOP! Call for help. Follow-up with: Hernan Nettles MD [Provider Admit Priv/Credential] -
--- NOTE | 2020-02-12 10:40 | DISCHARGE SUMMARY ---
"Discharge Summary Admit Date: 02/09/20 Discharge Date: 02/12/20 Code Status: Attempt Resuscitation Condition at Discharge: Stable Discharge Disposition: Home Health Service - DIAGNOSES Admission Diagnoses: Altered mental status Dehydration Prerenal azotemia Urinary tract infection ADHD Multiple sclerosis Hypothyroidism Discharge Diagnoses with Status of Each Condition: Altered mental status - resolved. Dehydration - resolved. Acute kidney injury - resolved. Urinary tract infection - improved. ADHD - stable. Multiple sclerosis - stable. Hypothyroidism - stable. - HPI History of Present Illness: Please refer to H&P of Dr. Cesar. - CONSULTS | PROCEDURES Consultations: PT, Social Work - HOSPITAL COURSE Hospital Course: She was admitted for urinary tract infection and altered mental status felt to be secondary to dehydration. She was treated initially with meropenem IV given her past urine cultures grew ESBL producing Klebsiella. She was given multiple liters of IV fluids as well. Her mental status returned to baseline the following day and her urine culture came back positive for E. coli. She switched to oral Keflex as it was thought this would likely be pansensitive E. coli. He was going to be discharged the following day after admission but it was noted by physical therapy that the patient had abnormal gait and required repeat cueing and is very forgetful and was felt that it was not a safe discharge home. The following day her white count increased and it was found that her E. coli urinary tract infection resistant to ceftezole and. After discussion with pharmacy, she was given a one-time dose of fosfomycin. The patient continued to progress with physical therapy but she was kept hospitalized 1 more day to ensure her white count continues to improve. The following day her white count normalized and she remained at her baseline mental status. She progressed quite well with physical therapy and home health PT and OT was recommended. She was discharged home and is recommended she follow-up on an outpatient basis with her primary care provider. She was not discharged on any antibiotics given she received a one-time dose of fosfomycin. - ALLERGIES Allergies/Adverse Reactions: Allergies Allergy/AdvReac Type Severity Reaction Status Date / Time No Known Drug Allergies Allergy Verified 02/09/20 08:46 - MEDICATIONS Home Medications: Ambulatory Orders Medication Instructions Recorded Confirmed Cholestyramine [Questran] 4 gm PO DAILY 04/28/13 02/10/20 Potassium Chloride 10 meq PO DAILY #7 tablet.er 02/21/19 02/10/20 Acetaminophen 1,000 mg Q6HR PRN 07/18/19 02/10/20 Baclofen 10 mg PO DAILY 07/18/19 02/10/20 Calcium Carbonate/Vitamin D3 1 ea PO DAILY 07/18/19 02/10/20 [Calcium 500 mg-Vit D3 600 Unit] Clopidogrel [Plavix] 75 mg PO DAILY 07/18/19 02/10/20 Glucos Sul 2Kcl/MSM/Chond/C/Mn 1 cap PO DAILY 07/18/19 02/10/20 [Glucosamine Chondroitin Cap] Levothyroxine Sodium 50 mcg PO DAILY 07/18/19 02/10/20 Multivitamin/Iron/Folic Acid 1 ea ORAL DAILY 07/18/19 02/10/20 [Centrum Women Tablet] Atorvastatin [Lipitor] 40 mg PO DAILY 02/10/20 02/10/20 Methylphenidate HCl 40 mg PO DAILY 02/10/20 02/10/20 [Methylphenidate ER] Metoprolol Succinate [Toprol Xl] 25 mg PO BID 02/10/20 02/10/20 levETIRAcetam [Roweepra] 500 mg PO BID 02/10/20 02/10/20 - PHYSICAL EXAM AT DISCHARGE General Appearance: positive: No acute distress, Alert Eyes Bilateral: positive: Normal inspection, Conjunctivae nml ENT: positive: ENT inspection nml. negative: Dry mucous membranes Neck: positive: Nml inspection Respiratory: positive: No respiratory distress. negative: Wheezes, Rales Cardiovascular: positive: Regular rate & rhythm, No murmur. negative: Tachycardia, Systolic murmur Abdomen: positive: Non-tender, No distention. negative: Tenderness, Guarding, Rebound Skin: positive: Warm, Dry Extremities: positive: Pedal edema (Trace pitting edema in the bilateral lower extremities.) Neurologic/Psychiatric: positive: Other (No focal deficits on exam.). negative: Disoriented to person, Disoriented to place Physical Exam Other/Comments: Vital Signs - 24 hr 02/11/20 02/12/20 02/12/20 23:56 08:00 12:24 Temperature 36.9 C 36.8 C 36.8 C Heart Rate [ 72 74 75 Brachial] Respiratory 20 20 22 Rate Blood Pressure 127/73 105/69 132/67 H [Right Brachial artery] O2 Saturation 96 95 99 Oxygen O2 Source Room air - LABS Result Diagrams: 02/12/20 05:05 02/12/20 05:05 - DIAGNOSTIC IMAGING Diagnostic Imaging Results: Final report reviewed - FOLLOW UP Follow Up: It was recommended that she follow-up with her primary care provider in one week. - TIME SPENT Time Spent in Discharge (Minutes): 32"
[2020-02-12 12:25] VITALS: BP 132/67
== END 2020-02-12 12:36 | disposition home health service (06) | DRG 690 ==
LOC: EDUNIT# → ED 08:18 → MS3 14:04 → OBSVTOIN 02-10 15:42
PROVIDERS: ADMIT Internal Medicine; ATTEND Internal Medicine
DX: N30.90 Cystitis, unspecified without hematuria (principal); N39.0 Urinary tract infection, site not specified; Z16.19 Resistance to other specified beta lactam antibiotics; B96.20 Unspecified Escherichia coli [E. coli] as the cause of diseases classified elsewhere; E86.0 Dehydration; R41.82 Altered mental status, unspecified; E87.6 Hypokalemia; G35 Multiple sclerosis; F17.200 Nicotine dependence, unspecified, uncomplicated; F90.9 Attention-deficit hyperactivity disorder, unspecified type; I10 Essential (primary) hypertension; E03.9 Hypothyroidism, unspecified; R79.89 Other specified abnormal findings of blood chemistry; R15.9 Full incontinence of feces; R32 Unspecified urinary incontinence; G89.29 Other chronic pain; M54.41 Lumbago with sciatica, right side; R26.9 Unspecified abnormalities of gait and mobility; Z91.14 Patient's other noncompliance with medication regimen; Z79.899 Other long term (current) drug therapy; I25.2 Old myocardial infarction
CPT/HCPCS: 36415; 51701; 70496; 70498; 71045; 80048; 80053; 81001; 83605; 83690; 83735; 84443; 85025; 85610; 85730; 87040; 87086; 87181; 93005; 96361; 96365; 96366; 96367; 96368; 96372; 96375; 96376; 97161; 97530; 99284; 99285; A6250; A9270; G0378; J1200; J1650; J2185; J8499; Q9967; 80306; 81003

== ENCOUNTER 2020-06-10 20:34 | Outpatient (CLI) | payer MEDICARE, MEDICAID | END 2020-06-10 23:59 | disposition critical access hospital (66) | LOC: EMS 20:34 | PROVIDERS: ATTEND Emergency Medicine | DX: R41.82 Altered mental status, unspecified (principal); R47.81 Slurred speech; R29.898 Other symptoms and signs involving the musculoskeletal system | CPT/HCPCS: A0425; A0427 ==

== ENCOUNTER 2020-06-10 20:49 | Inpatient (IN) | payer MEDICARE, MEDICAID ==
--- NOTE | 2020-06-10 21:02 | ED Physician Documentation ---
PD HPI FOCAL NEURO - Stated complaint Stated Complaint: RIGHT SIDE WEAKNESS, SPEECH DIFFICULTY, FOUND DOWN - Chief complaint Chief Complaint: Neuro - History obtained from History obtained from: EMS - Additional information Additional information: This is a 64-year-old woman who presents by ambulance for potential strokelike syndrome. She has a history of multiple sclerosis, hypertension, prior MO on Plavix. There is some concern after looking at the prior chart that there may have a issue in the past of inappropriate use of sedating/narcotic medications. She lives alone and it is unclear when she was last known normal. Her neighbors noted that her door was open at 5 PM and then again at 8 PM and they went in the house and it sounds like at some point, she fell off the couch onto the floor. The patient is an unreliable historian, does not know how long she was on the floor. All she can really say is her name. Review of the chart shows a very similar admission in February 2020, and the end result was not consistent with stroke, she had a UTI and dehydration. 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: Hysterectomy - Present Medications Home Medications: Ambulatory Orders Medication Instructions Recorded Confirmed Cholestyramine [Questran] 4 gm PO DAILY 04/28/13 06/10/20 Potassium Chloride 10 meq PO DAILY #7 tablet.er 02/21/19 06/10/20 Acetaminophen 1,000 mg Q6HR PRN 07/18/19 06/10/20 Baclofen 10 mg PO DAILY 07/18/19 06/10/20 Calcium Carbonate/Vitamin D3 1 ea PO DAILY 07/18/19 06/10/20 [Calcium 500 mg-Vit D3 600 Unit] Clopidogrel [Plavix] 75 mg PO DAILY 07/18/19 06/10/20 Glucos Sul 2Kcl/MSM/Chond/C/Mn 1 cap PO DAILY 07/18/19 06/10/20 [Glucosamine Chondroitin Cap] Levothyroxine Sodium 50 mcg PO DAILY 07/18/19 06/10/20 Multivitamin/Iron/Folic Acid 1 ea ORAL DAILY 07/18/19 06/10/20 [Centrum Women Tablet] Atorvastatin [Lipitor] 40 mg PO DAILY 02/10/20 06/10/20 Methylphenidate HCl 40 mg PO DAILY 02/10/20 06/10/20 [Methylphenidate ER] Metoprolol Succinate [Toprol Xl] 25 mg PO BID 02/10/20 02/10/20 levETIRAcetam [Roweepra] 500 mg PO BID 02/10/20 06/10/20 - Allergies Allergies/Adverse Reactions: Allergies Allergy/AdvReac Type Severity Reaction Status Date / Time No Known Drug Allergies Allergy Verified 06/10/20 20:53 - Social History Does the pt smoke?: Yes Smoking Status: Unknown if ever smoked Does the pt drink ETOH?: No Does the pt have substance abuse?: No - Immunizations Immunizations are current?: No - POLST Patient has POLST: No PD ED PE NORMAL - Vitals Vital signs reviewed: Yes - General General: Other (She is alert but really only says her name. She is very inconsistent in following commands.) - HEENT HEENT: PERRL, Other (Will not follow commands for smiling or extraocular movements) - Neck Neck: Supple, no meningeal sign, No bony TTP - Cardiac Cardiac: RRR, No murmur - Respiratory Respiratory: No respiratory distress, Clear bilaterally - Abdomen Abdomen: Normal bowel sounds, Soft, Non tender - Rectal Rectal: Other (Stage 2 sacral pressure ulcer present on admission, also some candidal rash in the gluteal cleft.) - Back Back: No CVA TTP, No spinal TTP - Extremities Extremities: No edema, No calf tenderness / cord NIHSS - Time Time: 20:53 - Level of Consciousness Level of consciousness: (0) Alert, Keenly responsive LOC Questions: (2) Answers neither correct LOC Commands: (0) Performs both correctly - Gaze Best Gaze: (0) Normal (stright, will not look to either side) - Visual Visual: (0) No loss - Facial Palsy Facial Palsy: (0) Normal, symmetrical movement (won't follow command, no flattening) - Motor Arms (both separate) Motor Arm (right): (3) No effort against gravity Motor Arm (left): (2) Some effort against gravity - Motor Legs (both separate) Motor Leg (right): (4) No movement Motor Leg (left): (2) Some effort against gravity - Limb Ataxia Limb Ataxia: (0) Absent - Sensory Sensory: (0) Normal - Best Language Best Language: (2) Severe aphasia - Dysarthria Dysarthria: (0) Normal - Extinction and Inattention (formally neg Extinction and inattention: (2) Profound sarahy-inattention or extinction to more than one modality (no response to pain RUE/RLE) - Total Score/Results Total Score/Result: 17 Results - Vitals Vitals: Vital Signs - 24 hr 06/10/20 06/10/20 06/10/20 20:53 20:58 21:28 Temperature 36.6 C 36.6 C 36.7 C Heart Rate 80 80 76 Respiratory 18 18 15 Rate Blood Pressure 120/102 H 120/102 H 125/54 L O2 Saturation 94 94 100 06/10/20 06/10/20 21:30 22:00 Temperature 36.7 C 36.7 C Heart Rate 74 75 Respiratory 12 14 Rate Blood Pressure 120/52 L 135/66 H O2 Saturation 100 99 Oxygen O2 Source Room air - EKG (time done) 2129 Rate: Rate (enter#) (93) Rhythm: NSR [place]: Normal Intervals: Other (IVCD) Ischemia: ST depression (inferior) - Labs Labs: Laboratory Tests 06/10/20 06/10/20 06/10/20 21:00 21:00 21:39 WBC 12.6 H RBC 5.01 Hgb 14.9 Hct 45.8 MCV 91.4 MCH 29.7 MCHC 32.5 RDW 14.8 Plt Count 297 MPV 11.0 H Neut # (Auto) 9.5 H Lymph # (Auto) 2.0 [place] # (Auto) 1.0 Eos # (Auto) 0.0 Baso # (Auto) 0.1 Absolute Nucleated RBC 0.00 Nucleated RBC % 0.0 PT INR Sodium 139 Potassium 4.5 Chloride 105 Carbon Dioxide 21 Anion Gap 13.0 BUN 46 H Creatinine 1.3 H Estimated GFR (MDRD) 41 L Glucose 108 H Calcium 9.0 Magnesium 2.4 Total Bilirubin 0.7 AST 31 ALT 28 Alkaline Phosphatase 96 Total Creatine Kinase 914 H Troponin I High Sens 12.5 Total Protein 7.5 Albumin 3.9 Globulin 3.6 Albumin/Globulin Ratio 1.1 Urine Color Urine Clarity Urine pH Ur Specific [place] Urine Protein Urine Glucose (UA) Urine Ketones Urine Occult Blood Urine Nitrite Urine Bilirubin Urine Urobilinogen Ur Leukocyte Esterase Ur Microscopic Review Urine Culture Comments Ethyl Alcohol < 5.0 06/10/20 06/10/20 21:39 21:45 WBC RBC Hgb Hct MCV MCH MCHC RDW Plt Count MPV Neut # (Auto) Lymph # (Auto) [place] # (Auto) Eos # (Auto) Baso # (Auto) Absolute Nucleated RBC Nucleated RBC % PT 13.4 H INR 1.2 Sodium Potassium Chloride Carbon Dioxide Anion Gap BUN Creatinine Estimated GFR (MDRD) Glucose Calcium Magnesium Total Bilirubin AST ALT Alkaline Phosphatase Total Creatine Kinase Troponin I High Sens Total Protein Albumin Globulin Albumin/Globulin Ratio Urine Color YELLOW Urine Clarity HAZY Urine pH 6.0 Ur Specific [place] 1.020 Urine Protein TRACE Urine Glucose (UA) NEGATIVE Urine Ketones TRACE Urine Occult Blood MODERATE H Urine Nitrite POSITIVE H Urine Bilirubin NEGATIVE Urine Urobilinogen 0.2 (NORMAL) Ur Leukocyte Esterase SMALL H Ur Microscopic Review INDICATED Urine Culture Comments Not Reportable Ethyl Alcohol PD MEDICAL DECISION MAKING - ED course ED course: 64-year-old woman presents by ambulance with altered mental status, some strokelike concerns, her downtime was unknown. We know on arrival that it was at least 4 hours or at least we think that because that is when the neighbors noticed her door was open. I suspect it was longer since she was hypothermic prehospital. She does seem to have some right-sided deficits on exam. Was sent over for CT angiography of the head and neck. I do not see a bleed. That said I do not think she is a TPA candidate for several reasons: 1. She had a similar episode a few months ago that was not thought to be stroke, but no MRI was done at the time so it is hard to say with assured us that this was not a stroke. That means that either she has done this before and it was not a stroke, or she has had a stroke within the last few months, either of which would be a contraindication to TPA. 2. It is unclear what the time of onset would be, but on arrival, it was probably at least 4 hours, I suspect more due to the prehospital hypothermia. She was found again to have elevated white count, prerenal azotemia, very mild rhabdomyolysis, pyuria. Given the white count we will treat the pyuria with meropenem noting previous relatively hurtado resistant cultures. Spoke with Dr. Giorgi singh for admission at 10:15 PM. Departure - Departure Disposition: 66 [facility] DC/Xfer Clinical Impression: UTI (lower urinary tract infection), Prerenal azotemia, Multiple sclerosis, primary chronic progressive Sacral decubitus ulcer Qualifiers: Pressure injury stage: stage 2 Qualified Code(s): L89.152 - Pressure ulcer of sacral region, stage 2 Altered mental status Qualifiers: Altered mental status type: delirium Qualified Code(s): R41.0 - Disorientation, unspecified Condition: Serious
[2020-06-10 21:07] LABS: BASOPHILS # (AUTO) 0.1 10^3/uL (0.0-0.1); BASOPHILS % (AUTO) 0.7 %; EOSINOPHILS % (AUTO) 0.1 %; HGB - HEMOGLOBIN 14.9 g/dL (12.0-16.0); LYMPHOCYTES % (AUTO) 15.6 %; MEAN CORPUSCULAR HEMOGLOBIN 29.7 pg (27.0-31.0); MEAN CORPUSCULAR HGB CONC 32.5 g/dL (32.0-36.0); MEAN CORPUSCULAR VOLUME 91.4 fL (81.0-99.0); MONOCYTES % (AUTO) 7.8 %; NEUTROPHILS # (AUTO) 9.5 10^3/uL (1.5-6.6); NEUTROPHILS % (AUTO) 75.5 %; PLT - PLATELET COUNT 297 10^3/uL (130-450); RED BLOOD COUNT 5.01 10^6/uL (4.20-5.40); RED CELL DISTRIBUTION WIDTH 14.8 % (12.0-15.0); WHITE BLOOD COUNT 12.6 x10^3/uL (4.8-10.8)
[2020-06-10] MEDS ORDERED: SODIUM CHLORIDE 0.9% 1,000 ML IV STA (21:18)
[2020-06-10] MEDS ORDERED: IOVERSOL 320 100 ML VIAL IVP ONE ×2 (21:27→21:43)
--- NOTE | 2020-06-10 21:49 | CT Report ---
PROCEDURE: ANGIO HEAD W/WO INDICATIONS: stroke like sx CONTRAST: IV CONTRAST: Optiray 320 ml: 100 PO CONTRAST: *NO PO CONTRAST TECHNIQUE: Precontrast 4.5 mm thick angled axial sections acquired from the foramen magnum to the vertex. Afte r the administration of intravenous contrast, 1 mm thick sections acquired through the [place] of [place] is. Postcontrast 4.5 mm thick sections then re-acquired from the foramen magnum to the vertex. 3-di mensional dhclprl-voiqfuoph-iamzpzptiq (MIP) and/or volume rendering reformats were acquired of the c entral intracranial vasculature. For radiation dose reduction, the following was used: automated ex posure control, adjustment of mA and/or kV according to patient size. COMPARISON: FINDINGS: Image quality: Excellent. Anterior circulation: Intracranial internal carotid arteries are normal in size and flow. The flow within the paired anterior cerebral arteries is normal and symmetric. The flow within the middle cer ebral arteries is normal and symmetric. The anterior communicating artery is seen. No aneurysms are seen. Posterior circulation: Visualized portions of the vertebral arteries demonstrate normal caliber, and join to form a normal appearing basilar artery. Flow within the posterior cerebral arteries is norm al and symmetric. No aneurysms are seen. CSF spaces: Ventricles are normal in size and shape. Basal cisterns are patent. No extra-axial flu id collections. Brain: No midline shift. No intracranial bleeds or masses. [place]-white matter interface appears int act. Skull and face: Calvarium and facial bones appear intact, without suspicious lesions. Sinuses: Visualized sinuses and mastoids are clear. IMPRESSION: No area of ischemic injury is seen involving the brain parenchyma. There is normal appearance of the intracranial vasculature, with normal anatomic variant of diminutive left vertebral artery and normal caliber of the basilar artery extending from the dominant right vertebral artery and the diminutive left vertebral artery cephalad. No aneurysm or vascular malformation is found. Reviewed by: Tylor Chowdhury MD on 06/10/2020 9:47 PM PST Approved by: Tylor Chowdhury MD on 06/10/2020 9:47 PM PST Station ID: [id number]
--- NOTE | 2020-06-10 21:53 | CT Report ---
PROCEDURE: ANGIO NECK W INDICATIONS: stroke like sx CONTRAST: IV CONTRAST: Optiray 320 ml: 100 PO CONTRAST: *NO PO CONTRAST TECHNIQUE: After the administration of intravenous contrast, 1.5 mm axial sections acquired from the aortic arch to the [place] of [place]. Coronal 3-D maximum intensity projection (MIP) and/or volume rendering ref ormats were then performed. For radiation dose reduction, the following was used: automated exposur e control, adjustment of mA and/or kV according to patient size. COMPARISON: None. FINDINGS: Image quality: Excellent. Carotid system: The great vessels demonstrate a conventional anatomy as they arise from the aortic [facility]. The origins of the common carotid arteries appear patent. The common carotid arteries demonstr ate normal calibers and courses. The bifurcation regions appear normal bilaterally. The internal ca rotid arteries demonstrate normal caliber and course. Posterior circulation: The origins of the vertebral arteries appear patent. The more superior porti ons of the vertebral arteries demonstrate normal course and caliber. They join to form a normal appe aring basilar artery. Soft tissues: Visualized neck soft tissues demonstrate no suspicious abnormalities. The thyroid gla nd is normal in size. Bones: No suspicious bony lesions. Visualized cervical spine appears normally aligned. IMPRESSION: The cervical CT angiogram from the brachiocephalic vessels into the skull base is normal. There is ex cellent visualization and minimal atherosclerotic plaquing. No significant stenosis is found. No aneu rysm or dissection is present. At the lung apices no lesion is seen. The estimate of stenosis included in the report of the imaging study was calculated using the NASCET method Reviewed by: Tylor Chowdhury MD on 06/10/2020 9:52 PM PST Approved by: Tylor Chowdhury MD on 06/10/2020 9:52 PM PST Station ID: [id number]
[2020-06-10 21:58] LABS: ALBUMIN 3.9 g/dL (3.2-5.5); ALBUMIN/GLOBULIN RATIO 1.1 (1.0-2.2); ALKALINE PHOSPHATASE 96 IU/L (42-121); ALT ALANINE AMINOTRANSFERASE 28 IU/L (10-60); AST ASPARTATE AMINOTRANSFERASE 31 IU/L (10-42); BILIRUBIN,TOTAL 0.7 mg/dL (0.2-1.0); BUN - BLOOD UREA NITROGEN 46 mg/dL (6-20); CARBON DIOXIDE - CO2 21 mmol/L (21-32); CHLORIDE 105 mmol/L (101-111); CK- CREATINE KINASE 914 IU/L (22-269); CREATININE 1.3 mg/dL (0.4-1.0); GLUCOSE 108 mg/dL (70-100); MAGNESIUM 2.4 mg/dL (1.7-2.8); TOTAL PROTEIN 7.5 g/dL (6.7-8.2)
[2020-06-10 21:59] LABS: MUDS CUTOFF CONCENTRATIONS CUTOFF CONC BELOW:
[2020-06-10 22:06] LABS: BILIRUBIN,URINE NEGATIVE (NEGATIVE); GLUCOSE, URINE (UA) NEGATIVE (NEGATIVE); KETONES,URINE (UA) TRACE mg/dL (NEGATIVE); LEUKOCYTE ESTERASE, URINE SMALL (NEGATIVE); NITRITE,URINE POSITIVE (NEGATIVE); OCCULT BLOOD,URINE MODERATE (NEGATIVE); PROTEIN,URINE TRACE mg/dL (NEGATIVE); UROBILINOGEN,URINE 0.2 (NORMAL) E.U./dL (NORMAL)
[2020-06-10 22:09] LABS: INR 1.2 (0.8-1.2); PT - PROTHROMBIN TIME 13.4 secs (9.9-12.6)
[2020-06-10] MEDS ORDERED: NYSTATIN CREAM 15 GM TUBE TOP STA (22:10)
[2020-06-10 22:11] LABS: CLARITY,URINE HAZY (CLEAR)
[2020-06-10] MEDS ORDERED: MEROPENEM 1 GM in SODIUM CHLORIDE 0.9% MINIBAG 100 ML IV STA (22:14)
[2020-06-10] MEDS ORDERED: ONDANSETRON ODT 4 MG TABLET TL PRN (22:16)
[2020-06-10] MEDS ORDERED: ONDANSETRON 4 MG/2 ML VIAL IVP PRN (22:16)
[2020-06-10 22:18] LABS: BACTERIA,URINE Many /HPF (None Seen); CASTS, URINE 0-2 Hyaline Casts /LPF; MUCUS,URINE Moderate Strands; SQUAMOUS EPITHELIAL CELL,UR MOD Squamous (<= Few)
[2020-06-10 22:19] LABS: AMPHETAMINE SCREEN,URINE NEGATIVE (NEGATIVE); BENZODIAZEPINES SCREEN, URINE NEGATIVE (NEGATIVE); COCAINE SCREEN URINE NEGATIVE (NEGATIVE); METHADONE SCREEN, URINE NEGATIVE (NEGATIVE); METHAMPHETAMINES SCREEN, URINE NEGATIVE (NEGATIVE); OPIATE SCREEN, URINE NEGATIVE (NEGATIVE); OXYCODONE SCREEN, URINE NEGATIVE (NEGATIVE); PROPOXYPHENE SCREEN, URINE NEGATIVE (NEGATIVE); TRICYCLIC ANTIDEPRESSANT,URINE NEGATIVE (NEGATIVE)
[2020-06-10] MEDS ORDERED: LACTATED RINGERS 1,000 ML IV ONE (22:25)
--- NOTE | 2020-06-10 22:26 | HISTORY & PHYSICAL EXAMINATION ---
Chief Complaint - Chief Complaint Chief Complaint: Found down at home History of Present Illness - Admitted From Admitted From:: Home - History Obtained From Records Reviewed: Yes History obtained from: Patient, ER Physician, EMR Exam Limitations: Patient is altered and is a poor historian. - History of Present Illness HPI Comment/Other: This is a 64-year-old female with a past medical history significant for multiple sclerosis, hypothyroidism, recurrent urinary tract infections who presents today to the emergency department via ambulance after she was found down at home by her neighbors. Her last known normal is unknown. History from the patient is limited as she is altered and unable to provide a meaningful history. She is able to tell me she is at hospital and can tell me her name as well as date of . She otherwise will repeat her name when asked any other questions. She does deny having any chest pain, dyspnea or any pain in general. Per the emergency department provider, the patient was found down at home by her neighbor at around 8 PM. It was unclear how long she had been down for. Her neighbors checked on her because they noticed her door was open at 5 PM and again at 8 PM. She was found to be slightly hypothermic with temperature of 35.5 C by EMS. The patient has been admitted multiple times in the past for altered mental status due to dehydration and urinary tract infections. In the emergency department, she was found to be afebrile temperature of 36.6 C. Her heart rate was in the 80s. She was not tachypneic and saturating well on room air. Labs were significant for a white count of 12.6 with a left shift. Her BUN was 46 and her creatinine was 1.3. Urine toxicology was unremarkable. CKs were elevated at 914. Her urinalysis was a dirty catch with moderate squamous cells. CTA of the head and neck were unremarkable. She was given a liter of saline and a dose of meropenem IV in the emergency department given concern for possible urinary tract infection given her history in the past of multiple admissions for altered mental status with urinary tract infections. Given the above findings, medicine was consulted for admission. 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 Review of prior records did not reveal any significant family history. Social History Notes: Patient is unable to provide a meaningful social history at this time. Prior review of records reveal that she lives alone and is an ongoing smoker. - POLST Patient has POLST: No Meds/Allgy - Home Medications Home Medications: Ambulatory Orders Medication Instructions Recorded Confirmed Cholestyramine [Questran] 4 gm PO DAILY 04/28/13 06/10/20 Potassium Chloride 10 meq PO DAILY #7 tablet.er 02/21/19 06/10/20 Acetaminophen 1,000 mg Q6HR PRN 07/18/19 06/10/20 Baclofen 10 mg PO DAILY 07/18/19 06/10/20 Calcium Carbonate/Vitamin D3 1 ea PO DAILY 07/18/19 06/10/20 [Calcium 500 mg-Vit D3 600 Unit] Clopidogrel [Plavix] 75 mg PO DAILY 07/18/19 06/10/20 Glucos Sul 2Kcl/MSM/Chond/C/Mn 1 cap PO DAILY 07/18/19 06/10/20 [Glucosamine Chondroitin Cap] Levothyroxine Sodium 50 mcg PO DAILY 07/18/19 06/10/20 Multivitamin/Iron/Folic Acid 1 ea ORAL DAILY 07/18/19 06/10/20 [Centrum Women Tablet] Atorvastatin [Lipitor] 40 mg PO DAILY 02/10/20 06/10/20 Methylphenidate HCl 40 mg PO DAILY 02/10/20 06/10/20 [Methylphenidate ER] Metoprolol Succinate [Toprol Xl] 25 mg PO BID 02/10/20 02/10/20 levETIRAcetam [Roweepra] 500 mg PO BID 02/10/20 06/10/20 - Allergies Allergies/Adverse Reactions: Allergies Allergy/AdvReac Type Severity Reaction Status Date / Time No Known Drug Allergies Allergy Verified 06/10/20 20:53 Review of Systems - Cardiovascular Cariovascular: denies: Chest pain - Respiratory Respiratory: denies: Cough, SOB at rest - All Other Systems All Other Systems: reports: Other (Review of systems is limited given the patient's altered mental status and inability to answer questions consistently.) Prior Level of Functionality: At this point time it is unclear what her baseline is but she was discharged home during her prior discharge with home health. Exam - Vital Signs Reviewed Vital Signs: Yes Vital Signs: Vital Signs x48h Temp Pulse Resp BP Pulse Ox 06/10/20 22:00 36.7 C 75 14 135/66 H 99 06/10/20 21:30 36.7 C 74 12 120/52 L 100 06/10/20 21:28 36.7 C 76 15 125/54 L 100 06/10/20 20:58 36.6 C 80 18 120/102 H 94 06/10/20 20:53 36.6 C 80 18 120/102 H 94 - Physical Exam General Appearance: positive: No acute distress, Alert Eyes Bilateral: positive: Normal inspection, PERRL, Conjunctivae nml ENT: positive: Dry mucous membranes. negative: No signs of dehydration Neck: positive: Nml inspection Respiratory: positive: No respiratory distress, Wheezes (Faint bilateral expiratory wheezes). negative: Rales, Rhonchi Cardiovascular: positive: Regular rate & rhythm, No murmur. negative: Tachycardia Abdomen: positive: Non-tender, No distention. negative: Tenderness, Guarding, Rebound Skin: positive: Warm, Dry, Other (She has psoriatic lesions over her bilateral lower extremities.) Extremities: positive: No pedal edema Neurologic/Psychiatric: positive: Disoriented to time, Other (She is oriented to self and location but not time. Neuro exam is limited as she does not follow commands consistently. She is able to move her right upper extremity for me but she would not move her left upper extremity or her legs when I asked her to. She will repeat her name multiple times.). negative: Disoriented to person, Disoriented to place, Facial droop Conclusion/Plan - Problem List (1) Altered mental status Conclusion/Plan: This is likely multifactorial and secondary to dehydration as well as a possible component of medications and infection. CTA of the head and neck were u nremarkable. Toxicology screen is also negative. She has had multiple admissions in the past for similar presentation and each time was attributed to dehydration and possible urinary tract infection. She has grown ESBL E. coli and E. coli in the past. Her urinalysis at this time is a dirty catch. We will repeat this and if it is suggestive of infection, we will likely treat her empirically since we cannot obtain an accurate history from her. Her white count is also mildly elevated although this could be due to hemoconcentration. She was given meropenem IV in the emergency department. We will continue meropenem given her history of multidrug-resistant organisms if her repeat urinalysis is suggestive of infection. Hold all of her home sedatives. Continue to hydrate her with IV fluids. Will consider MRI if no improvement. Qualifiers: Altered mental status type: delirium Qualified Code(s): R41.0 - Disorientation, unspecified (2) Acute kidney injury Conclusion/Plan: This is likely prerenal and injury. Her creatinine is elevated at 1.3 compared to her baseline of 0.7. Although her CKs are elevated in 900s, I doubt this is the cause of her acute kidney injury. This should improve with IV fluids. We will continue her on IV lactated Ringer's. Recheck BMP in the morning. Avoid nephrotoxins. (3) Elevated CK Conclusion/Plan: Her CKs are elevated in the 900s. This is likely due to her being found down. We will hydrate her with IV lactated Ringer's and recheck in the morning. (4) Multiple sclerosis, primary chronic progressive Conclusion/Plan: Stable and chronic. Once she is more alert and oriented, will assess her for possible physical therapy. (5) Hypothyroid Conclusion/Plan: We will continue her home Synthroid after TSH is checked. - Lab Results Lab results reviewed: Yes Fish Bones: 06/10/20 21:00 06/10/20 21:39 - Diagnostic Imaging Results Diagnostic Imaging Results: positive: Final report reviewed - EKG Results EKG Interpreted Independently: Yes EKG Findings: EKG reveals a sinus rhythm without obvious ST segment changes although this is limited due to significant artifact. There also appears to be a right bundle branch block which is similar to prior EKGs. Core Measures - Anticipated LOS I expect patient to be DC'd or transferred within 96 hours.: Yes - Issues Hospital Issues and Management Plan: 64-year-old female with a history of multiple sclerosis presents after being found down at home by her neighbors. She is altered and has acute kidney injury as well as possible concern for urinary tract infection. We will admit her for IV fluids and possibly antibiotics. - DVT/VTE - Prophylaxis VTE/DVT Device ordered at admit?: Yes VTE/DVT Prophylaxis med ordered at admit?: Yes
[2020-06-10 22:47] LABS: C. PNEUMONIAE- RESP PCR PANEL NOT DETECTED
[2020-06-10] MEDS ORDERED: LACTATED RINGERS 1,000 ML IV SCH (23:00)
[2020-06-10] MEDS: SODIUM CHLORIDE FLUSH 0.9% 10 ML SYRINGE IVP PRN (23:10)
[2020-06-11] MEDS: SODIUM CHLORIDE FLUSH 0.9% 10 ML SYRINGE IVP SCH ×3 (00:24→17:32)
[2020-06-11 01:38] LABS: BILIRUBIN,URINE NEGATIVE (NEGATIVE); GLUCOSE, URINE (UA) NEGATIVE (NEGATIVE); KETONES,URINE (UA) 15 mg/dL (NEGATIVE); LEUKOCYTE ESTERASE, URINE NEGATIVE (NEGATIVE); NITRITE,URINE POSITIVE (NEGATIVE); OCCULT BLOOD,URINE MODERATE (NEGATIVE); PH,URINE 5.5 PH (5.0-7.5); PROTEIN,URINE NEGATIVE (NEGATIVE); UROBILINOGEN,URINE 0.2 (NORMAL) E.U./dL (NORMAL)
[2020-06-11 01:39] LABS: CLARITY,URINE SL. CLOUDY (CLEAR)
[2020-06-11 01:44] LABS: BACTERIA,URINE Moderate /HPF (None Seen); CASTS, URINE 3-5 Hyaline Casts /LPF; SQUAMOUS EPITHELIAL CELL,UR RARE Squamous (<= Few)
[2020-06-11] MEDS: MIN OIL/DIMETHICON/COCONUT OIL 92 GM TUBE TOP PRN (04:44)
[2020-06-11 05:49] LABS: BASOPHILS # (AUTO) 0.1 10^3/uL (0.0-0.1); BASOPHILS % (AUTO) 0.7 %; EOSINOPHILS # (AUTO) 0.2 10^3/uL (0.0-0.7); EOSINOPHILS % (AUTO) 1.5 %; HGB - HEMOGLOBIN 12.6 g/dL (12.0-16.0); LYMPHOCYTES # (AUTO) 2.7 10^3/uL (1.5-3.5); LYMPHOCYTES % (AUTO) 25.5 %; MEAN CORPUSCULAR HEMOGLOBIN 29.8 pg (27.0-31.0); MEAN CORPUSCULAR HGB CONC 32.4 g/dL (32.0-36.0); MEAN PLATELET VOLUME 10.6 fL (7.9-10.8); MONOCYTES # (AUTO) 0.7 10^3/uL (0.0-1.0); MONOCYTES % (AUTO) 6.7 %; NEUTROPHILS # (AUTO) 6.9 10^3/uL (1.5-6.6); NEUTROPHILS % (AUTO) 65.2 %; PLT - PLATELET COUNT 244 10^3/uL (130-450); RED BLOOD COUNT 4.23 10^6/uL (4.20-5.40); RED CELL DISTRIBUTION WIDTH 14.9 % (12.0-15.0); WHITE BLOOD COUNT 10.6 x10^3/uL (4.8-10.8)
[2020-06-11 06:09] LABS: CREATININE 0.9 mg/dL (0.4-1.0); MAGNESIUM 2.2 mg/dL (1.7-2.8); PHOSPHORUS 3.3 mg/dL (2.5-4.6)
--- NOTE | 2020-06-11 08:16 | PHARMACY PROGRESS NOTE ---
- Best Possible Medication History Admit Date and Time: 06/10/202 Processed by: Pharmacy Medication History completed: Yes Patient Interview: Completed Secondary Source(s): Pharmacy records, Insurance records, Previous admit records As the person ultimately responsible for medication therapy, providers are able to order a medication from an existing home medication list in [facility] via the "Reconcile Routine" prior to Confirmation of that medication by support technician. Such practice is discouraged except when the physician, in their clinical judgment, deems that a medical need exists for a medication without regard to previous use.
[2020-06-11] MEDS: LACTATED RINGERS 1,000 ML IV SCH ×3 (08:25→22:10)
[2020-06-11] MEDS: CLOPIDOGREL 75 MG TABLET PO SCH (08:26)
[2020-06-11] MEDS: levETIRAcetam 250 MG TABLET PO SCH ×2 (08:26→20:22)
[2020-06-11] MEDS: HEPARIN 5,000 UNIT/ML VIAL SUBQ SCH ×2 (08:29→20:22)
[2020-06-11] MEDS: ACETAMINOPHEN 325 MG TABLET PO PRN ×3 (09:05→17:45)
[2020-06-11] MEDS: NYSTATIN POWDER 15 GM TOP SCH ×2 (11:43→20:21)
[2020-06-11] MEDS: LEVOTHYROXINE 25 MCG TABLET PO SCH (11:43)
[2020-06-11] MEDS: polyethylene glycoL 3350 17 GM PACKET PO SCH (13:02)
[2020-06-11] MEDS: BACLOFEN 10 MG TABLET PO SCH ×2 (16:37→20:22)
--- NOTE | 2020-06-11 17:09 | PROVIDER PROGRESS NOTE ---
Subjective - Prog Note Date Prog Note Date: 06/11/20 Prog Note Time: 17:12 - Subjective Subjective: She is sitting up in her chair. Trying to watch TV but not really following the program. She is easily confused. Wrinkles her nose and furrows her brow when she cannot remember what she wants to say. She keeps on wanting to take "that pill I take every 3 hours for leg cramps". But cannot remember the name. I offer her her usual baclofen but she says that is not the when she takes. After several attempts she gives up trying to name that pill. She does ask for Percocet by name several times. Otherwise she denies coughing, wheezing, chest pain. She does not have a headache. She says she does not have much of an appetite. No abdominal pain. Current Medications - Current Medications Current Medications: Active Medications Acetaminophen (Acetaminophen 325 Mg Tablet) 650 mg PO Q4HR PRN PRN Reason: Pain 1 to 4 Last Admin: 06/11/20 13:12 Dose: 650 mg Documented by: Atorvastatin Calcium (Atorvastatin 40 Mg Tablet) 40 mg PO QPM [facility] Baclofen (Baclofen 10 Mg Tablet) 10 mg PO QID [facility] Last Admin: 06/11/20 16:37 Dose: 10 mg Documented by: Clopidogrel Bisulfate (Clopidogrel 75 Mg Tablet) 75 mg PO DAILY [facility] Last Admin: 06/11/20 08:26 Dose: 75 mg Documented by: Heparin Sodium (Porcine) (Heparin 5,000 Unit/Ml Vial) 5,000 unit SUBQ BID [facility] Last Admin: 06/11/20 08:29 Dose: 5,000 unit Documented by: Lactated Ringer's (Lr) 1,000 mls @ 150 mls/hr IV .Q6H40M [facility] Last Admin: 06/11/20 15:01 Dose: 150 mls/hr Documented by: Meropenem 1 gm/ Sodium (Chloride) 100 mls @ 200 mls/hr IV Q8H [facility] Levetiracetam (Levetiracetam 250 Mg Tablet) 500 mg PO BID [facility] Last Admin: 06/11/20 08:26 Dose: 500 mg Documented by: Levothyroxine Sodium (Levothyroxine 25 Mcg Tablet) 50 mcg PO QDAC [facility] Last Admin: 06/11/20 11:43 Dose: 50 mcg Documented by: Mineral Oil (Min Oil/Dimethicon/Coconut Oil 92 Gm Tube) 1 applic TOP PRN PRN PRN Reason: Skin Care Last Admin: 06/11/20 04:44 Dose: 1 applic Documented by: Nystatin (Nystatin Powder 15 Gm) 1 applic TOP BID [facility] Last Admin: 06/11/20 11:43 Dose: 1 applic Documented by: Ondansetron HCl (Ondansetron Odt 4 Mg Tablet) 4 mg TL Q6HR PRN PRN Reason: Nausea / Vomiting Ondansetron HCl (Ondansetron 4 Mg/2 Ml Vial) 4 mg IVP Q6HR PRN PRN Reason: Nausea / Vomiting Polyethylene Glycol (Polyethylene Glycol 3350 17 Gm Packet) 17 gm PO DAILY [facility] Last Admin: 06/11/20 13:02 Dose: 17 gm Documented by: Sodium Chloride (Sodium Chloride Flush 0.9% 10 Ml Syringe) 10 ml IVP PRN PRN PRN Reason: NEEDED PER PROVIDER ORDERS Last Admin: 06/10/20 23:10 Dose: 10 ml Documented by: Sodium Chloride (Sodium Chloride Flush 0.9% 10 Ml Syringe) 10 ml IVP 0100,0900,1700 [facility] Last Admin: 06/11/20 08:26 Dose: Not Given Documented by: Cholestyramine [Questran] 4 gm PO QPM 04/28/13 Baclofen 10 mg PO QID 07/18/19 Clopidogrel [Plavix] 75 mg PO DAILY 07/18/19 Glucos Sul 2Kcl/MSM/Chond/C/Mn [Glucosamine Chondroitin Cap] 1 cap PO DAILY 07/18/19 Levothyroxine Sodium 50 mcg PO DAILY 07/18/19 Multivitamin/Iron/Folic Acid [Centrum Women Tablet] 1 ea ORAL DAILY 07/18/19 Atorvastatin [Lipitor] 40 mg PO QPM 02/10/20 Methylphenidate HCl [Methylphenidate ER] 40 mg PO DAILY 02/10/20 Metoprolol Succinate [Toprol Xl] 25 mg PO BID 02/10/20 levETIRAcetam [Roweepra] 500 mg PO BID 02/10/20 Furosemide [Lasix] 20 mg PO DAILY 06/11/20 Objective - Vital Signs/Intake & Output Reviewed Vital Signs: Yes Vital Signs: Vital Signs x48h Temp Pulse Resp BP Pulse Ox 06/11/20 15:56 36.7 C 77 16 112/56 L 99 06/11/20 13:00 37.4 C 84 16 95/46 L 95 Intake & Output: Intake & Output 06/08/20 06/09/20 06/10/20 06/11/20 23:59 23:59 23:59 23:59 Intake Total 1100 4295.000 Output Total 325 Balance 1100 3970.000 - Objective General Appearance: positive: Other (Sitting up in chair, trying to watch TV, speech occasionally still slurred, truncated and self interrupted as she tries to gather her thoughts) Eyes Bilateral: positive: PERRL, EOMI ENT: positive: No signs of dehydration Neck: positive: No JVD. negative: Stiff neck Respiratory: positive: No respiratory distress. negative: Wheezes, Rales, Rhonchi Cardiovascular: positive: Regular rate & rhythm. negative: Gallop/S4, Friction rub Abdomen: positive: Non-tender, No organomegaly, Nml bowel sounds, No distention Skin: positive: Warm, Dry Extremities: positive: Full ROM (Except for right foot drop and slightly inverted foot) Neurologic/Psychiatric: positive: CN's nml (2-12), Disoriented to place, Dis oriented to time. negative: Motor nml (Right leg appears weaker than left leg) - Lab Results Fish Bones: 06/11/20 05:40 06/11/20 05:40 Other Labs: Lab Results x24hrs 06/11/20 06/11/20 06/11/20 Range/Units 05:40 05:40 01:25 WBC 10.6 (4.8-10.8) x10^3/uL RBC 4.23 (4.20-5.40) 10^6/uL Hgb 12.6 (12.0-16.0) g/dL Hct 38.9 (37.0-47.0) % MCV 92.0 (81.0-99.0) fL MCH 29.8 (27.0-31.0) pg MCHC 32.4 (32.0-36.0) g/dL RDW 14.9 (12.0-15.0) % Plt Count 244 (130-450) 10^3/uL MPV 10.6 (7.9-10.8) fL Neut # (Auto) 6.9 H (1.5-6.6) 10^3/uL Lymph # (Auto) 2.7 (1.5-3.5) 10^3/uL Dane # (Auto) 0.7 (0.0-1.0) 10^3/uL Eos # (Auto) 0.2 (0.0-0.7) 10^3/uL Baso # (Auto) 0.1 (0.0-0.1) 10^3/uL Absolute Nucleated RBC 0.00 x10^3/uL Nucleated RBC % 0.0 /100WBC PT (9.9-12.6) secs INR (0.8-1.2) Sodium 144 (135-145) mmol/L Potassium 3.5 (3.5-5.0) mmol/L Chloride 112 H (101-111) mmol/L Carbon Dioxide 22 (21-32) mmol/L Anion Gap 10.0 (6-13) BUN 33 H (6-20) mg/dL Creatinine 0.9 (0.4-1.0) mg/dL Estimated GFR (MDRD) 63 L (>89) Glucose 115 H (70-100) mg/dL Calcium 9.0 (8.5-10.3) mg/dL Phosphorus 3.3 (2.5-4.6) mg/dL Magnesium 2.2 (1.7-2.8) mg/dL Total Bilirubin (0.2-1.0) mg/dL AST (10-42) IU/L ALT (10-60) IU/L Alkaline Phosphatase (42-121) IU/L Total Creatine Kinase 1545 H* (22-269) IU/L Troponin I High Sens (2.3-14.8) ng/L Total Protein (6.7-8.2) g/dL Albumin (3.2-5.5) g/dL Globulin (2.1-4.2) g/dL Albumin/Globulin Ratio (1.0-2.2) TSH (0.34-5.60) uIU/mL Urine Color YELLOW Urine Clarity SL. CLOUDY (CLEAR) Urine pH 5.5 (5.0-7.5) PH Ur Specific Corona 1.010 (1.002-1.030) Urine Protein NEGATIVE (NEGATIVE) mg/dL Urine Glucose (UA) NEGATIVE (NEGATIVE) mg/dL Urine Ketones 15 H (NEGATIVE) mg/dL Urine Occult Blood MODERATE H (NEGATIVE) Urine Nitrite POSITIVE H (NEGATIVE) Urine Bilirubin NEGATIVE (NEGATIVE) Urine Urobilinogen 0.2 (NORMAL) (NORMAL) E.U./dL Ur Leukocyte Esterase NEGATIVE (NEGATIVE) Urine RBC 6-10 H (0-5) /HPF Urine WBC 0-3 (0-5) /HPF Ur Squamous Epith Cells RARE Squamous (<= Few) Urine Bacteria Moderate H (None Seen) /HPF Urine Casts 3-5 Hyaline Casts /LPF Urine Mucus Ur Microscopic Review Urine Culture Comments INDICATED Nasal Adenovirus (PCR) Nasal B. parapertussis DNA (PCR) Nasal Coronavir 229E PCR Nasal Coronavir HKU1 PCR Nasal Coronavir NL63 PCR Nasal Coronavir OC43 PCR Nasal Enterovir/Rhinovir PCR Nasal Influenza B PCR Nasal Influenza A PCR Nasal Parainfluen 1 PCR Nasal Parainfluen 2 PCR Nasal Parainfluen 3 PCR Nasal Parainfluen 4 PCR Nasal RSV (PCR) Nasal B.pertussis DNA PCR Nasal C.pneumoniae (PCR) Jaya Human Metapneumo PCR Nasal M.pneumoniae (PCR) Nasal SARS-CoV-2 (PCR) Urine Opiates Screen (NEGATIVE) Ur Oxycodone Screen (NEGATIVE) Urine Methadone Screen (NEGATIVE) Ur Propoxyphene Screen (NEGATIVE) Ur Barbiturates Screen (NEGATIVE) Ur Tricyclics Screen (NEGATIVE) Ur Phencyclidine Scrn (NEGATIVE) Ur Amphetamine Screen (NEGATIVE) U Methamphetamines Scrn (NEGATIVE) U Benzodiazepines Scrn (NEGATIVE) Urine Cocaine Screen (NEGATIVE) U Cannabinoids Screen (NEGATIVE) Ethyl Alcohol mg/dL 06/10/20 06/10/20 06/10/20 Range/Units 21:45 21:39 21:39 WBC (4.8-10.8) x10^3/uL RBC (4.20-5.40) 10^6/uL Hgb (12.0-16.0) g/dL Hct (37.0-47.0) % MCV (81.0-99.0) fL MCH (27.0-31.0) pg MCHC (32.0-36.0) g/dL RDW (12.0-15.0) % Plt Count (130-450) 10^3/uL MPV (7.9-10.8) fL Neut # (Auto) (1.5-6.6) 10^3/uL Lymph # (Auto) (1.5-3.5) 10^3/uL Dane # (Auto) (0.0-1.0) 10^3/uL Eos # (Auto) (0.0-0.7) 10^3/uL Baso # (Auto) (0.0-0.1) 10^3/uL Absolute Nucleated RBC x10^3/uL Nucleated RBC % /100WBC PT 13.4 H (9.9-12.6) secs INR 1.2 (0.8-1.2) Sodium (135-145) mmol/L Potassium (3.5-5.0) mmol/L Chloride (101-111) mmol/L Carbon Dioxide (21-32) mmol/L Anion Gap (6-13) BUN (6-20) mg/dL Creatinine (0.4-1.0) mg/dL Estimated GFR (MDRD) (>89) Glucose (70-100) mg/dL Calcium (8.5-10.3) mg/dL Phosphorus (2.5-4.6) mg/dL Magnesium (1.7-2.8) mg/dL Total Bilirubin (0.2-1.0) mg/dL AST (10-42) IU/L ALT (10-60) IU/L Alkaline Phosphatase (42-121) IU/L Total Creatine Kinase (22-269) IU/L Troponin I High Sens (2.3-14.8) ng/L Total Protein (6.7-8.2) g/dL Albumin (3.2-5.5) g/dL Globulin (2.1-4.2) g/dL Albumin/Globulin Ratio (1.0-2.2) TSH 1.63 (0.34-5.60) uIU/mL Urine Color YELLOW Urine Clarity HAZY (CLEAR) Urine pH 6.0 (5.0-7.5) PH Ur Specific Corona 1.020 (1.002-1.030) Urine Protein TRACE (NEGATIVE) mg/dL Urine Glucose (UA) NEGATIVE (NEGATIVE) mg/dL Urine Ketones TRACE (NEGATIVE) mg/dL Urine Occult Blood MODERATE H (NEGATIVE) Urine Nitrite POSITIVE H (NEGATIVE) Urine Bilirubin NEGATIVE (NEGATIVE) Urine Urobilinogen 0.2 (NORMAL) (NORMAL) E.U./dL Ur Leukocyte Esterase SMALL H (NEGATIVE) Urine RBC 11-25 H (0-5) /HPF Urine WBC >25 H (0-5) /HPF Ur Squamous Epith Cells MOD Squamous H (<= Few) Urine Bacteria Many H (None Seen) /HPF Urine Casts 0-2 Hyaline Casts /LPF Urine Mucus Moderate Strands Ur Microscopic Review INDICATED Urine Culture Comments NOT INDICATED Nasal Adenovirus (PCR) Nasal B. parapertussis DNA (PCR) Nasal Coronavir 229E PCR Nasal Coronavir HKU1 PCR Nasal Coronavir NL63 PCR Nasal Coronavir OC43 PCR Nasal Enterovir/Rhinovir PCR Nasal Influenza B PCR Nasal Influenza A PCR Nasal Parainfluen 1 PCR Nasal Parainfluen 2 PCR Nasal Parainfluen 3 PCR Nasal Parainfluen 4 PCR Nasal RSV (PCR) Nasal B.pertussis DNA PCR Nasal C.pneumoniae (PCR) Jaya Human Metapneumo PCR Nasal M.pneumoniae (PCR) Nasal SARS-CoV-2 (PCR) Urine Opiates Screen NEGATIVE (NEGATIVE) Ur Oxycodone Screen NEGATIVE (NEGATIVE) Urine Methadone Screen NEGATIVE (NEGATIVE) Ur Propoxyphene Screen NEGATIVE (NEGATIVE) Ur Barbiturates Screen NEGATIVE (NEGATIVE) Ur Tricyclics Screen NEGATIVE (NEGATIVE) Ur Phencyclidine Scrn NEGATIVE (NEGATIVE) Ur Amphetamine Screen NEGATIVE (NEGATIVE) U Methamphetamines Scrn NEGATIVE (NEGATIVE) U Benzodiazepines Scrn NEGATIVE (NEGATIVE) Urine Cocaine Screen NEGATIVE (NEGATIVE) U Cannabinoids Screen NEGATIVE (NEGATIVE) Ethyl Alcohol mg/dL 06/10/20 06/10/20 06/10/20 Range/Units 21:39 21:19 21:00 WBC (4.8-10.8) x10^3/uL RBC (4.20-5.40) 10^6/uL Hgb (12.0-16.0) g/dL Hct (37.0-47.0) % MCV (81.0-99.0) fL MCH (27.0-31.0) pg MCHC (32.0-36.0) g/dL RDW (12.0-15.0) % Plt Count (130-450) 10^3/uL MPV (7.9-10.8) fL Neut # (Auto) (1.5-6.6) 10^3/uL Lymph # (Auto) (1.5-3.5) 10^3/uL Dane # (Auto) (0.0-1.0) 10^3/uL Eos # (Auto) (0.0-0.7) 10^3/uL Baso # (Auto) (0.0-0.1) 10^3/uL Absolute Nucleated RBC x10^3/uL Nucleated RBC % /100WBC PT (9.9-12.6) secs INR (0.8-1.2) Sodium 139 (135-145) mmol/L Potassium 4.5 (3.5-5.0) mmol/L Chloride 105 (101-111) mmol/L Carbon Dioxide 21 (21-32) mmol/L Anion Gap 13.0 (6-13) BUN 46 H (6-20) mg/dL Creatinine 1.3 H (0.4-1.0) mg/dL Estimated GFR (MDRD) 41 L (>89) Glucose 108 H (70-100) mg/dL Calcium 9.0 (8.5-10.3) mg/dL Phosphorus (2.5-4.6) mg/dL Magnesium 2.4 (1.7-2.8) mg/dL Total Bilirubin 0.7 (0.2-1.0) mg/dL AST 31 (10-42) IU/L ALT 28 (10-60) IU/L Alkaline Phosphatase 96 (42-121) IU/L Total Creatine Kinase 914 H (22-269) IU/L Troponin I High Sens 12.5 (2.3-14.8) ng/L Total Protein 7.5 (6.7-8.2) g/dL Albumin 3.9 (3.2-5.5) g/dL Globulin 3.6 (2.1-4.2) g/dL Albumin/Globulin Ratio 1.1 (1.0-2.2) TSH (0.34-5.60) uIU/mL Urine Color Urine Clarity (CLEAR) Urine pH (5.0-7.5) PH Ur Specific Corona (1.002-1.030) Urine Protein (NEGATIVE) mg/dL Urine Glucose (UA) (NEGATIVE) mg/dL Urine Ketones (NEGATIVE) mg/dL Urine Occult Blood (NEGATIVE) Urine Nitrite (NEGATIVE) Urine Bilirubin (NEGATIVE) Urine Urobilinogen (NORMAL) E.U./dL Ur Leukocyte Esterase (NEGATIVE) Urine RBC (0-5) /HPF Urine WBC (0-5) /HPF Ur Squamous Epith Cells (<= Few) Urine Bacteria (None Seen) /HPF Urine Casts /LPF Urine Mucus Ur Microscopic Review Urine Culture Comments Nasal Adenovirus (PCR) NOT DETECTED Nasal B. parapertussis DNA (PCR) NOT DETECTED Nasal Coronavir 229E PCR NOT DETECTED Nasal Coronavir HKU1 PCR NOT DETECTED Nasal Coronavir NL63 PCR NOT DETECTED Nasal Coronavir OC43 PCR NOT DETECTED Nasal Enterovir/Rhinovir PCR NOT DETECTED Nasal Influenza B PCR NOT DETECTED Nasal Influenza A PCR NOT DETECTED Nasal Parainfluen 1 PCR NOT DETECTED Nasal Parainfluen 2 PCR NOT DETECTED Nasal Parainfluen 3 PCR NOT DETECTED Nasal Parainfluen 4 PCR NOT DETECTED Nasal RSV (PCR) NOT DETECTED Nasal B.pertussis DNA PCR NOT DETECTED Nasal C.pneumoniae (PCR) NOT DETECTED Jaya Human Metapneumo PCR NOT DETECTED Nasal M.pneumoniae (PCR) NOT DETECTED Nasal SARS-CoV-2 (PCR) NOT DETECTED Urine Opiates Screen (NEGATIVE) Ur Oxycodone Screen (NEGATIVE) Urine Methadone Screen (NEGATIVE) Ur Propoxyphene Screen (NEGATIVE) Ur Barbiturates Screen (NEGATIVE) Ur Tricyclics Screen (NEGATIVE) Ur Phencyclidine Scrn (NEGATIVE) Ur Amphetamine Screen (NEGATIVE) U Methamphetamines Scrn (NEGATIVE) U Benzodiazepines Scrn (NEGATIVE) Urine Cocaine Screen (NEGATIVE) U Cannabinoids Screen (NEGATIVE) Ethyl Alcohol < 5.0 mg/dL 06/10/20 Range/Units 21:00 WBC 12.6 H (4.8-10.8) x10^3/uL RBC 5.01 (4.20-5.40) 10^6/uL Hgb 14.9 (12.0-16.0) g/dL Hct 45.8 (37.0-47.0) % MCV 91.4 (81.0-99.0) fL MCH 29.7 (27.0-31.0) pg MCHC 32.5 (32.0-36.0) g/dL RDW 14.8 (12.0-15.0) % Plt Count 297 (130-450) 10^3/uL MPV 11.0 H (7.9-10.8) fL Neut # (Auto) 9.5 H (1.5-6.6) 10^3/uL Lymph # (Auto) 2.0 (1.5-3.5) 10^3/uL Dane # (Auto) 1.0 (0.0-1.0) 10^3/uL Eos # (Auto) 0.0 (0.0-0.7) 10^3/uL Baso # (Auto) 0.1 (0.0-0.1) 10^3/uL Absolute Nucleated RBC 0.00 x10^3/uL Nucleated RBC % 0.0 /100WBC PT (9.9-12.6) secs INR (0.8-1.2) Sodium (135-145) mmol/L Potassium (3.5-5.0) mmol/L Chloride (101-111) mmol/L Carbon Dioxide (21-32) mmol/L Anion Gap (6-13) BUN (6-20) mg/dL Creatinine (0.4-1.0) mg/dL Estimated GFR (MDRD) (>89) Glucose (70-100) mg/dL Calcium (8.5-10.3) mg/dL Phosphorus (2.5-4.6) mg/dL Magnesium (1.7-2.8) mg/dL Total Bilirubin (0.2-1.0) mg/dL AST (10-42) IU/L ALT (10-60) IU/L Alkaline Phosphatase (42-121) IU/L Total Creatine Kinase (22-269) IU/L Troponin I High Sens (2.3-14.8) ng/L Total Protein (6.7-8.2) g/dL Albumin (3.2-5.5) g/dL Globulin (2.1-4.2) g/dL Albumin/Globulin Ratio (1.0-2.2) TSH (0.34-5.60) uIU/mL Urine Color Urine Clarity (CLEAR) Urine pH (5.0-7.5) PH Ur Specific Corona (1.002-1.030) Urine Protein (NEGATIVE) mg/dL Urine Glucose (UA) (NEGATIVE) mg/dL Urine Ketones (NEGATIVE) mg/dL Urine Occult Blood (NEGATIVE) Urine Nitrite (NEGATIVE) Urine Bilirubin (NEGATIVE) Urine Urobilinogen (NORMAL) E.U./dL Ur Leukocyte Esterase (NEGATIVE) Urine RBC (0-5) /HPF Urine WBC (0-5) /HPF Ur Squamous Epith Cells (<= Few) Urine Bacteria (None Seen) /HPF Urine Casts /LPF Urine Mucus Ur Microscopic Review Urine Culture Comments Nasal Adenovirus (PCR) Nasal B. parapertussis DNA (PCR) Nasal Coronavir 229E PCR Nasal Coronavir HKU1 PCR Nasal Coronavir NL63 PCR Nasal Coronavir OC43 PCR Nasal Enterovir/Rhinovir PCR Nasal Influenza B PCR Nasal Influenza A PCR Nasal Parainfluen 1 PCR Nasal Parainfluen 2 PCR Nasal Parainfluen 3 PCR Nasal Parainfluen 4 PCR Nasal RSV (PCR) Nasal B.pertussis DNA PCR Nasal C.pneumoniae (PCR) Jaya Human Metapneumo PCR Nasal M.pneumoniae (PCR) Nasal SARS-CoV-2 (PCR) Urine Opiates Screen (NEGATIVE) Ur Oxycodone Screen (NEGATIVE) Urine Methadone Screen (NEGATIVE) Ur Propoxyphene Screen (NEGATIVE) Ur Barbiturates Screen (NEGATIVE) Ur Tricyclics Screen (NEGATIVE) Ur Phencyclidine Scrn (NEGATIVE) Ur Amphetamine Screen (NEGATIVE) U Methamphetamines Scrn (NEGATIVE) U Benzodiazepines Scrn (NEGATIVE) Urine Cocaine Screen (NEGATIVE) U Cannabinoids Screen (NEGATIVE) Ethyl Alcohol mg/dL ABX Reporting Has patient been on IV antibiotics over the past 48 hours?: Yes Assessment/Plan - Problem List (1) Altered mental status Impression: This is likely multifactorial and secondary to dehydration as well as a possible component of medications and infection. CTA of the head and neck were unremarkable. Toxicology screen is also negative. She has had multiple admiss ions in the past for similar presentation and each time was attributed to dehydration and possible urinary tract infection. She has grown ESBL E. coli and E. coli in the past. Her urinalysis at this time is a dirty catch. We repeated the urinalysis since she continued to have ketonuria, moderate amount of occult blood, positive nitrites, negative leukocyte Estrace, 6-10 red cells, 0-3 white cells, rare squamous, and moderate urine bacteria And I am treating her empirically since we cannot obtain an accurate history from her. Her white count was also mildly elevated at 12.6 although this could be due to hemoconcentration and this am she is 10.6 so improved. She was given meropenem IV in the emergency department. We will continue meropenem given her history of multidrug-resistant organisms if her repeat urinalysis is suggestive of infection. Hold all of her home sedatives. Continue to hydrate her with IV fluids. Will consider MRI if no improvement And so far she is still mildly c onfused. If we do MRI it will have to be Saturday. Not available on Saturday afternoon Qualifiers: Altered mental status type: delirium Qualified Code(s): R41.0 - Disorientation, unspecified (2) Acute kidney injury Conclusion/Plan: This is likely prerenal and injury. We thought at first that her CPK was not the cause of her acute kidney injury. Initially she was 914. But today she has gone up to 1545. Creatinine has responded by going down to 0.9 from 1.3. We will continue her on IV lactated Ringer's. Recheck BMP in the morning. Avoid nephrotoxins. (3) Elevated CK Conclusion/Plan: Her CKs are elevated in the 900s And today 1545. This is likely due to her being found down. We will hydrate her with IV lactated Ringer's and recheck in the morning. (4) Multiple sclerosis, primary chronic progressive Conclusion/Plan: Stable and chronic. Once she is more alert and oriented, will assess her for possible physical therapy. (5) Hypothyroid Conclusion/Plan: We will continue her home Synthroid after TSH is checked. (6) Chronic pain syndrome. She states that she has chronic pain from back pain, arthritis pain. She asked for Percocet by name. Insist that she gets a prescription for this on a regular basis. Yet our pharmacist is not able to match any insurance claims with a pharmacy dispensation. When I looked at her clinic records, the last time she received an opioid was in 2016. At that time she was a clinic patient of Dr. Orellana. He was starting to wean her off and had given her 1 last prescription. She then changed provider offices and asked the new provider office for Percocet. The new provider declined and stated that she was not to be getting opioids on a regular basis anymore. From what I can see in the clinic record she has not received any more Percocet or any other opioid since that time. At this time, I told her that I will not be giving her Percocet. We can use tramadol or Tylenol. I explained to her about the chart review. Qualifiers: Qualified Code(s): R41.0 - Disorientation, unspecified
[2020-06-11] MEDS: MEROPENEM 1 GM in SODIUM CHLORIDE 0.9% MINIBAG 100 ML IV SCH (17:45)
[2020-06-11] MEDS: ATORVASTATIN 40 MG TABLET PO SCH (20:22)
[2020-06-11] MEDS: OXYMETAZOLINE HCL 100 SPRAYS BOTTLE NAS PRN (22:10)
[2020-06-12] MEDS: ACETAMINOPHEN 325 MG TABLET PO PRN ×4 (00:11→15:37)
[2020-06-12] MEDS: SODIUM CHLORIDE FLUSH 0.9% 10 ML SYRINGE IVP SCH ×3 (00:12→15:37)
[2020-06-12] MEDS: MEROPENEM 1 GM in SODIUM CHLORIDE 0.9% MINIBAG 100 ML IV SCH ×2 (01:57→10:15)
[2020-06-12] MEDS: LACTATED RINGERS 1,000 ML IV SCH ×3 (04:37→17:23)
[2020-06-12] MEDS: MIN OIL/DIMETHICON/COCONUT OIL 92 GM TUBE TOP PRN (04:47)
[2020-06-12] MEDS: LEVOTHYROXINE 25 MCG TABLET PO SCH (05:53)
[2020-06-12 05:55] LABS: BASOPHILS # (AUTO) 0.1 10^3/uL (0.0-0.1); BASOPHILS % (AUTO) 1.2 %; EOSINOPHILS # (AUTO) 0.1 10^3/uL (0.0-0.7); EOSINOPHILS % (AUTO) 1.4 %; HGB - HEMOGLOBIN 10.9 g/dL (12.0-16.0); LYMPHOCYTES # (AUTO) 2.7 10^3/uL (1.5-3.5); LYMPHOCYTES % (AUTO) 48.4 %; MEAN CORPUSCULAR HEMOGLOBIN 29.8 pg (27.0-31.0); MEAN CORPUSCULAR HGB CONC 32.5 g/dL (32.0-36.0); MEAN CORPUSCULAR VOLUME 91.5 fL (81.0-99.0); MEAN PLATELET VOLUME 10.6 fL (7.9-10.8); MONOCYTES # (AUTO) 0.6 10^3/uL (0.0-1.0); MONOCYTES % (AUTO) 9.8 %; NEUTROPHILS # (AUTO) 2.2 10^3/uL (1.5-6.6); NEUTROPHILS % (AUTO) 38.8 %; PLT - PLATELET COUNT 195 10^3/uL (130-450); RED BLOOD COUNT 3.66 10^6/uL (4.20-5.40); RED CELL DISTRIBUTION WIDTH 15.4 % (12.0-15.0); WHITE BLOOD COUNT 5.6 x10^3/uL (4.8-10.8)
[2020-06-12 06:07] LABS: CALCIUM 8.4 mg/dL (8.5-10.3); CREATININE 0.9 mg/dL (0.4-1.0); MAGNESIUM 1.9 mg/dL (1.7-2.8); PHOSPHORUS 2.7 mg/dL (2.5-4.6)
[2020-06-12] MEDS ORDERED: POTASSIUM CHLORIDE 20 MEQ TABLET PO ONE (07:00)
[2020-06-12] MEDS: levETIRAcetam 250 MG TABLET PO SCH ×2 (09:40→21:04)
[2020-06-12] MEDS: BACLOFEN 10 MG TABLET PO SCH ×4 (09:41→21:04)
[2020-06-12] MEDS: CLOPIDOGREL 75 MG TABLET PO SCH (09:41)
[2020-06-12] MEDS: polyethylene glycoL 3350 17 GM PACKET PO SCH (10:06)
[2020-06-12] MEDS: HEPARIN 5,000 UNIT/ML VIAL SUBQ SCH ×2 (10:06→21:05)
[2020-06-12] MEDS: NYSTATIN POWDER 15 GM TOP SCH ×2 (10:07→21:03)
[2020-06-12] MEDS: OXYMETAZOLINE HCL 100 SPRAYS BOTTLE NAS PRN ×2 (10:12→21:03)
--- NOTE | 2020-06-12 13:42 | PROVIDER PROGRESS NOTE ---
Subjective - Prog Note Date Prog Note Date: 06/12/20 Prog Note Time: 13:36 - Subjective Pt reports feeling: Improved Current Medications - Current Medications Current Medications: Active Medications Generic Name Dose Route Start Last Admin Trade Name Freq PRN Reason Stop Dose Admin Acetaminophen 650 mg 06/10/20 22:16 06/12/20 09:40 Acetaminophen 325 Mg Tablet PO 650 mg Q4HR PRN Administration Pain 1 to 4 Atorvastatin Calcium 40 mg 06/11/20 21:00 06/11/20 20:22 Atorvastatin 40 Mg Tablet PO 40 mg QPM JIN Administration Baclofen 10 mg 06/11/20 17:00 06/12/20 13:01 Baclofen 10 Mg Tablet PO 10 mg QID JIN Administration Clopidogrel Bisulfate 75 mg 06/11/20 09:00 06/12/20 09:41 Clopidogrel 75 Mg Tablet PO 75 mg DAILY JIN Administration Heparin Sodium (Porcine) 5,000 unit 06/11/20 09:00 06/12/20 10:06 Heparin 5,000 Unit/Ml Vial SUBQ 5,000 unit BID JIN Administration Lactated Ringer's 1,000 mls @ 150 mls/hr 06/11/20 06:49 06/12/20 10:13 Lr IV 150 mls/hr .Q6H40M JIN Administration Levetiracetam 500 mg 06/11/20 09:00 06/12/20 09:40 Levetiracetam 250 Mg Tablet PO 500 mg BID JIN Administration Levothyroxine Sodium 50 mcg 06/11/20 11:00 06/12/20 05:53 Levothyroxine 25 Mcg Tablet PO 50 mcg QDAC JIN Administration Mineral Oil 1 applic 06/11/20 01:43 06/12/20 04:47 Min Oil/Dimethicon/Coconut Oil 92 Gm Tube TOP 1 applic PRN PRN Administration Skin Care Nystatin 1 applic 06/11/20 09:00 06/12/20 10:07 Nystatin Powder 15 Gm TOP 1 applic BID JIN Administration Ondansetron HCl 4 mg 06/10/20 22:16 Ondansetron Odt 4 Mg Tablet TL Q6HR PRN Nausea / Vomiting Ondansetron HCl 4 mg 06/10/20 22:16 Ondansetron 4 Mg/2 Ml Vial IVP Q6HR PRN Nausea / Vomiting Oxymetazoline HCl 2 sprays 06/11/20 21:33 06/12/20 10:12 Oxymetazoline Hcl 100 Sprays Bottle WILLIE 1 spr BID PRN Administration Nasal Congestion Polyethylene Glycol 17 gm 06/11/20 13:00 06/12/20 10:06 Polyethylene Glycol 3350 17 Gm Packet PO Not Given DAILY JIN Sodium Chloride 10 ml 06/10/20 22:16 06/10/20 23:10 Sodium Chloride Flush 0.9% 10 Ml Syringe IVP 10 ml PRN PRN Administration NEEDED PER PROVIDER ORDERS Sodium Chloride 10 ml 06/11/20 01:00 06/12/20 10:07 Sodium Chloride Flush 0.9% 10 Ml Syringe IVP Not Given 0100,0900,1700 JIN Cholestyramine [Questran] 4 gm PO QPM 04/28/13 Baclofen 10 mg PO QID 07/18/19 Clopidogrel [Plavix] 75 mg PO DAILY 07/18/19 Glucos Sul 2Kcl/MSM/Chond/C/Mn [Glucosamine Chondroitin Cap] 1 cap PO DAILY 07/18/19 Levothyroxine Sodium 50 mcg PO DAILY 07/18/19 Multivitamin/Iron/Folic Acid [Centrum Women Tablet] 1 ea ORAL DAILY 07/18/19 Atorvastatin [Lipitor] 40 mg PO QPM 02/10/20 Methylphenidate HCl [Methylphenidate ER] 40 mg PO DAILY 02/10/20 Metoprolol Succinate [Toprol Xl] 25 mg PO BID 02/10/20 levETIRAcetam [Roweepra] 500 mg PO BID 02/10/20 Furosemide [Lasix] 20 mg PO DAILY 06/11/20 Objective - Vital Signs/Intake & Output Reviewed Vital Signs: Yes Vital Signs: Vital Signs x48h Temp Pulse Resp BP Pulse Ox 06/12/20 11:49 36.5 C 65 16 118/70 95 06/12/20 08:47 36.6 C 78 18 122/67 95 Intake & Output: Intake & Output 06/09/20 06/10/20 06/11/20 06/12/20 23:59 23:59 23:59 23:59 Intake Total 1100 5695.000 2870 Output Total 1525 0 Balance 1100 4170.000 2870 - Objective General Appearance: positive: No acute distress, Alert, Other (Sitting up in a chair, watching TV. But speech is fragmented, not fluid and not completely lucid. However much improved over yesterday or the day before.) Eyes Bilateral: positive: PERRL, EOMI ENT: positive: No signs of dehydration Neck: positive: No JVD. negative: Stiff neck Respiratory: positive: No respiratory distress. negative: Wheezes, Rales, Rhonchi Cardiovascular: positive: Regular rate & rhythm, Systolic murmur. negative: Gallop/S4, Friction rub Abdomen: positive: Non-tender, No organomegaly, Nml bowel sounds, No distention Skin: positive: Warm, Dry Neurologic/Psychiatric: positive: CN's nml (2-12), Motor nml (At times she appears tremulous but when I really focus on her motor exam, there are no resti ng tremors, no [id number] tremors (intention tremors). Yet she seems more unsteady than baseline description.), Disoriented to place, Disoriented to time, Slurred/abnml speech (Not complete sentences. Having problems remembering words. Fades off in mid sentence when she cannot remember what she wants to say or how she wants to say it.) - Lab Results Fish Bones: 06/12/20 05:30 06/12/20 05:30 Other Labs: Lab Results x24hrs 06/12/20 06/12/20 Range/Units 05:30 05:30 WBC 5.6 (4.8-10.8) x10^3/uL RBC 3.66 L (4.20-5.40) 10^6/uL Hgb 10.9 L (12.0-16.0) g/dL Hct 33.5 L (37.0-47.0) % MCV 91.5 (81.0-99.0) fL MCH 29.8 (27.0-31.0) pg MCHC 32.5 (32.0-36.0) g/dL RDW 15.4 H (12.0-15.0) % Plt Count 195 (130-450) 10^3/uL MPV 10.6 (7.9-10.8) fL Neut # (Auto) 2.2 (1.5-6.6) 10^3/uL Lymph # (Auto) 2.7 (1.5-3.5) 10^3/uL Cook # (Auto) 0.6 (0.0-1.0) 10^3/uL Eos # (Auto) 0.1 (0.0-0.7) 10^3/uL Baso # (Auto) 0.1 (0.0-0.1) 10^3/uL Absolute Nucleated RBC 0.00 x10^3/uL Nucleated RBC % 0.0 /100WBC Sodium 143 (135-145) mmol/L Potassium 3.4 L (3.5-5.0) mmol/L Chloride 113 H (101-111) mmol/L Carbon Dioxide 22 (21-32) mmol/L Anion Gap 8.0 (6-13) BUN 21 H (6-20) mg/dL Creatinine 0.9 (0.4-1.0) mg/dL Estimated GFR (MDRD) 63 L (>89) Glucose 83 (70-100) mg/dL Calcium 8.4 L (8.5-10.3) mg/dL Phosphorus 2.7 (2.5-4.6) mg/dL Magnesium 1.9 (1.7-2.8) mg/dL Total Creatine Kinase 923 H (22-269) IU/L ABX Reporting Has patient been on IV antibiotics over the past 48 hours?: Yes Assessment/Plan - Problem List (1) Altered mental status Impression: This is likely multifactorial and secondary to dehydration as well as a possible component of medications and infection. CTA of the head and neck were unremarkable. Toxicology screen is also negative. She has had multiple admissions in the past for similar presentation and each time was attributed to dehydration and possible urinary tract infection. She has grown ESBL E. coli and E. coli in the past. Her urinalysis at this time is a dirty catch. We repeated the urinalysis since she continued to have ketonuria, moderate amount of occult blood, positive nitrites, negative leukocyte Estrace, 6-10 red cells, 0-3 white cells, rare squamous, and moderate urine bacteria And I am treating her empirically since we cannot obtain an accurate history from her. Her white count was also mildly elevated on admission at 12.6 although this could be due to hemoconcentration but by the next day she was 10.6 and this am 5.6 so normal. She was given meropenem IV in the emergency department. We will continue meropenem given her history of multidrug-resistant organisms if her repeat urinalysis is suggestive of infection. Hold all of her home sedatives. Continue to hydrate her with IV fluids. Day #3 of meropenem. She continues to be confused. Social work was able to get permission to speak to the patient's niece Latisha Bello at [phone]. Up until now the patient has refused to allow us to speak to anybody in her family. She was very adamant about that. We were not to release any information to any family member. This morning she finally allowed us to speak to Latisha. Social work was able to verify that the patient has mobility issues due to her multiple sclerosis. The niece has not seen her and since the pandemic started. But the patient is described as a very aware person of her surroundings. Appears to have normal cognitive abilities. She is very grouchy, a very private person, and can be combative. However her processing power is pretty normal. The family has been wanting her to get in-home care but she is very stubborn and independent. She did not want to share her medical issues with the family or be taken care of by anybody. The niece describes Ms. Lizarraga is not having any short-term memory issues. She does not mix up her words. She does not have any deficits that the niece is aware of. Plan: MRI scan tomorrow when it is available. Continue to treat for UTI. I initially was going to discontinue it thinking that this patient had a negative urine culture, but with her altered mental status we will err on the side of overtreatment for the next 24 hours. Qualifiers: Altered mental status type: delirium Qualified Code(s): R41.0 - Disorientation, unspecified (2) Acute kidney injury Conclusion/Plan: This is likely prerenal and injury. We thought at first that her CPK was not the cause of her acute kidney injury. Initially she was 914 and then she went up to 1545. Creatinine has responded by going down to 0.9 from 1.3. Today CK is 923. We will continue her on IV lactated Ringer's. Recheck BMP in the morning. Avoid nephrotoxins. (3) Elevated CK Conclusion/Plan: Her CKs are elevated in the 900s>>1545>>900s again. This is likely due to her being found down. We will hydrate her with IV lactated Ringer's and recheck in the morning. (4) Multiple sclerosis, primary chronic progressive Conclusion/Plan: Stable and chronic. Once she is more alert and oriented, will assess her for possible physical therapy. (5) Hypothyroid Conclusion/Plan: We will continue her home Synthroid after TSH is checked. (6) Chronic pain syndrome. She states that she has chronic pain from back pain, arthritis pain. 06/11/2020 she asked for Percocet by name. Insist that she gets a prescription for this on a regular basis. Pharmacy went and looked at her insurance records and the last time she was prescribed Percocet and a small amount was in 2018. When I looked at her clinic records, the last time she Discussed an opioid was in 2015. At that time she was a clinic patient of Dr. Woods. He was starting to wean her off and had given her 1 last prescription. She then changed provider offices and asked the new provider office for Percocet. The new provider declined and stated that she was not to be getting opioids on a regular basis anymore. From what I can see in the clinic record she has not received any more Percocet or any other opioid since that time. At this time, I will not be giving her Percocet. We can use tramadol or Tylenol. I explained to her about the chart review. Qualifiers: Qualified Code(s): R41.0 - Disorientation, unspecified Qualifiers: Qualified Code(s): R41.0 - Disorientation, unspecified
[2020-06-12] MEDS: ATORVASTATIN 40 MG TABLET PO SCH (21:04)
[2020-06-13] MEDS: ACETAMINOPHEN 325 MG TABLET PO PRN ×3 (00:11→08:39)
[2020-06-13] MEDS: SODIUM CHLORIDE FLUSH 0.9% 10 ML SYRINGE IVP SCH ×3 (00:13→16:40)
[2020-06-13] MEDS: LACTATED RINGERS 1,000 ML IV SCH ×4 (01:10→16:41)
[2020-06-13 05:11] LABS: BASOPHILS # (AUTO) 0.1 10^3/uL (0.0-0.1); BASOPHILS % (AUTO) 1.6 %; EOSINOPHILS # (AUTO) 0.6 10^3/uL (0.0-0.7); EOSINOPHILS % (AUTO) 8.5 %; HGB - HEMOGLOBIN 12.1 g/dL (12.0-16.0); LYMPHOCYTES % (AUTO) 43.3 %; MEAN CORPUSCULAR HEMOGLOBIN 29.6 pg (27.0-31.0); MEAN CORPUSCULAR HGB CONC 32.4 g/dL (32.0-36.0); MEAN CORPUSCULAR VOLUME 91.4 fL (81.0-99.0); MEAN PLATELET VOLUME 10.8 fL (7.9-10.8); MONOCYTES # (AUTO) 0.5 10^3/uL (0.0-1.0); MONOCYTES % (AUTO) 6.7 %; NEUTROPHILS # (AUTO) 2.7 10^3/uL (1.5-6.6); NEUTROPHILS % (AUTO) 39.5 %; PLT - PLATELET COUNT 218 10^3/uL (130-450); RED BLOOD COUNT 4.09 10^6/uL (4.20-5.40); RED CELL DISTRIBUTION WIDTH 15.5 % (12.0-15.0); WHITE BLOOD COUNT 6.8 x10^3/uL (4.8-10.8)
[2020-06-13 05:20] LABS: CALCIUM 8.7 mg/dL (8.5-10.3); CREATININE 0.9 mg/dL (0.4-1.0); MAGNESIUM 1.6 mg/dL (1.7-2.8); PHOSPHORUS 2.5 mg/dL (2.5-4.6)
[2020-06-13] MEDS: LEVOTHYROXINE 25 MCG TABLET PO SCH (06:55)
[2020-06-13] MEDS ORDERED: POTASSIUM CHLORIDE 20 MEQ TABLET PO ONE (06:57)
[2020-06-13] MEDS ORDERED: MAGNESIUM OXIDE 400 MG TABLET PO ONE (07:00)
[2020-06-13] MEDS: levETIRAcetam 250 MG TABLET PO SCH ×2 (08:40→20:19)
[2020-06-13] MEDS: CLOPIDOGREL 75 MG TABLET PO SCH (08:40)
[2020-06-13] MEDS: BACLOFEN 10 MG TABLET PO SCH ×4 (08:40→20:10)
[2020-06-13] MEDS: polyethylene glycoL 3350 17 GM PACKET PO SCH (08:41)
[2020-06-13] MEDS: HEPARIN 5,000 UNIT/ML VIAL SUBQ SCH ×2 (08:50→20:13)
[2020-06-13] MEDS: OXYMETAZOLINE HCL 100 SPRAYS BOTTLE NAS PRN (08:51)
[2020-06-13] MEDS: NYSTATIN POWDER 15 GM TOP SCH ×2 (08:51→20:16)
--- NOTE | 2020-06-13 12:32 | PROVIDER PROGRESS NOTE ---
Current Medications - Current Medications Current Medications: Active Medications Acetaminophen (Acetaminophen 325 Mg Tablet) 650 mg PO Q4HR PRN PRN Reason: Pain 1 to 4 Last Admin: 06/13/20 08:39 Dose: 650 mg Documented by: Atorvastatin Calcium (Atorvastatin 40 Mg Tablet) 40 mg PO QPM [facility] Last Admin: 06/12/20 21:04 Dose: 40 mg Documented by: Baclofen (Baclofen 10 Mg Tablet) 10 mg PO QID [facility] Last Admin: 06/13/20 08:40 Dose: 10 mg Documented by: Clopidogrel Bisulfate (Clopidogrel 75 Mg Tablet) 75 mg PO DAILY [facility] Last Admin: 06/13/20 08:40 Dose: 75 mg Documented by: Heparin Sodium (Porcine) (Heparin 5,000 Unit/Ml Vial) 5,000 unit SUBQ BID [facility] Last Admin: 06/13/20 08:50 Dose: 5,000 unit Documented by: Lactated Ringer's (Lr) 1,000 mls @ 150 mls/hr IV .Q6H40M [facility] Last Admin: 06/13/20 07:12 Dose: 150 mls/hr Documented by: Levetiracetam (Levetiracetam 250 Mg Tablet) 500 mg PO BID [facility] Last Admin: 06/13/20 08:40 Dose: 500 mg Documented by: Levothyroxine Sodium (Levothyroxine 25 Mcg Tablet) 50 mcg PO QDAC [facility] Last Admin: 06/13/20 06:55 Dose: 50 mcg Documented by: Mineral Oil (Min Oil/Dimethicon/Coconut Oil 92 Gm Tube) 1 applic TOP PRN PRN PRN Reason: Skin Care Last Admin: 06/12/20 04:47 Dose: 1 applic Documented by: Nystatin (Nystatin Powder 15 Gm) 1 applic TOP BID [facility] Last Admin: 06/13/20 08:51 Dose: 1 applic Documented by: Ondansetron HCl (Ondansetron Odt 4 Mg Tablet) 4 mg TL Q6HR PRN PRN Reason: Nausea / Vomiting Ondansetron HCl (Ondansetron 4 Mg/2 Ml Vial) 4 mg IVP Q6HR PRN PRN Reason: Nausea / Vomiting Oxymetazoline HCl (Oxymetazoline Hcl 100 Sprays Bottle) 2 sprays WILLIE BID PRN PRN Reason: Nasal Congestion Last Admin: 06/13/20 08:51 Dose: 1 spr Documented by: Polyethylene Glycol (Polyethylene Glycol 3350 17 Gm Packet) 17 gm PO DAILY [facility] Last Admin: 06/13/20 08:41 Dose: 17 gm Documented by: Sodium Chloride (Sodium Chloride Flush 0.9% 10 Ml Syringe) 10 ml IVP PRN PRN PRN Reason: NEEDED PER PROVIDER ORDERS Last Admin: 06/10/20 23:10 Dose: 10 ml Documented by: Sodium Chloride (Sodium Chloride Flush 0.9% 10 Ml Syringe) 10 ml IVP 0100,0900,1700 [facility] Last Admin: 06/13/20 08:41 Dose: Not Given Documented by: Cholestyramine [Questran] 4 gm PO QPM 04/28/13 Baclofen 10 mg PO QID 07/18/19 Clopidogrel [Plavix] 75 mg PO DAILY 07/18/19 Glucos Sul 2Kcl/MSM/Chond/C/Mn [Glucosamine Chondroitin Cap] 1 cap PO DAILY 07/18/19 Levothyroxine Sodium 50 mcg PO DAILY 07/18/19 Multivitamin/Iron/Folic Acid [Centrum Women Tablet] 1 ea ORAL DAILY 07/18/19 Atorvastatin [Lipitor] 40 mg PO QPM 02/10/20 Methylphenidate HCl [Methylphenidate ER] 40 mg PO DAILY 02/10/20 Metoprolol Succinate [Toprol Xl] 25 mg PO BID 02/10/20 levETIRAcetam [Roweepra] 500 mg PO BID 02/10/20 Furosemide [Lasix] 20 mg PO DAILY 06/11/20 Objective - Vital Signs/Intake & Output Reviewed Vital Signs: Yes Vital Signs: Vital Signs x48h Temp Pulse Resp BP Pulse Ox 06/13/20 11:22 36.4 C L 70 18 138/70 H 97 06/13/20 07:53 36.5 C 73 19 147/75 H 98 06/13/20 05:00 36.6 C 75 17 137/77 H 96 Intake & Output: Intake & Output 06/10/20 06/11/20 06/12/20 06/13/20 23:59 23:59 23:59 23:59 Intake Total 1100 5695.000 4348 2263 Output Total 1525 1350 770 Balance 1100 4170.000 2998 1493 - Objective General Appearance: positive: Alert Eyes Bilateral: positive: PERRL, EOMI ENT: positive: No signs of dehydration Neck: positive: No JVD. negative: Stiff neck Respiratory: positive: No respiratory distress, Wheezes (one wheeze heard then gone). negative: Rales, Rhonchi Cardiovascular: positive: Regular rate & rhythm, Systolic murmur. negative: Gallop/S4, Friction rub Skin: positive: Warm, Dry, Skin rash Extremities: positive: Full ROM, Pedal edema Neurologic/Psychiatric: positive: Oriented x3 (But it waxes and wanes with regards to date and her ability to recollect history. Today is a good day. At least this morning was a good day.), CN's nml (2-12), Motor nml, Weakness (Able to sit up, sit at the bedside, transfer to stand and walk to the bathroom with a walker. Needs a standby assist.), Depressed mood/affect (As manifested by anger, crankiness, agitation comes and goes. This morning she was fine but I believe by this afternoon she is not) - Lab Results Fish Bones: 06/13/20 04:55 06/13/20 04:55 Other Labs: Lab Results x24hrs 06/13/20 06/13/20 Range/Units 04:55 04:55 WBC 6.8 (4.8-10.8) x10^3/uL RBC 4.09 L (4.20-5.40) 10^6/uL Hgb 12.1 (12.0-16.0) g/dL Hct 37.4 (37.0-47.0) % MCV 91.4 (81.0-99.0) fL MCH 29.6 (27.0-31.0) pg MCHC 32.4 (32.0-36.0) g/dL RDW 15.5 H (12.0-15.0) % Plt Count 218 (130-450) 10^3/uL MPV 10.8 (7.9-10.8) fL Neut # (Auto) 2.7 (1.5-6.6) 10^3/uL Lymph # (Auto) 3.0 (1.5-3.5) 10^3/uL Meade # (Auto) 0.5 (0.0-1.0) 10^3/uL Eos # (Auto) 0.6 (0.0-0.7) 10^3/uL Baso # (Auto) 0.1 (0.0-0.1) 10^3/uL Absolute Nucleated RBC 0.00 x10^3/uL Nucleated RBC % 0.0 /100WBC Sodium 136 (135-145) mmol/L Potassium 3.3 L (3.5-5.0) mmol/L Chloride 105 (101-111) mmol/L Carbon Dioxide 22 (21-32) mmol/L Anion Gap 9.0 (6-13) BUN 15 (6-20) mg/dL Creatinine 0.9 (0.4-1.0) mg/dL Estimated GFR (MDRD) 63 L (>89) Glucose 144 H (70-100) mg/dL Calcium 8.7 (8.5-10.3) mg/dL Phosphorus 2.5 (2.5-4.6) mg/dL Magnesium 1.6 L (1.7-2.8) mg/dL Total Creatine Kinase 511 H (22-269) IU/L ABX Reporting Has patient been on IV antibiotics over the past 48 hours?: No Assessment/Plan - Problem List (1) Acute metabolic encephalopathy Impression: This is likely multifactorial and secondary to dehydration as well as a possible component of medications and infection. CTA of the head and neck were unremarkable. Toxicology screen is also negative. She has had multiple admissions in the past for similar presentation and each time was attributed to dehydration and possible urinary tract infection. She has grown ESBL E. coli and E. coli in the past. Her urinalysis at this time is a dirty catch. We repeated the urinalysis since she continued to have ketonuria, moderate amount of occult blood, positive nitrites, negative leukocyte Estrace, 6-10 red cells, 0-3 white cells, rare squamous, and moderate urine bacteria And I was treating her empirically since we cannot obtain an accurate history from her. Her white count was also mildly elevated on admission at 12.6 although this could be due to hemoconcentration but by the next day she was 10.6 and this am 5.6 so normal. She was given meropenem IV in the emergency department. I continued meropenem for 1 more day but when her urine cultures came back negative, her meropenem was stopped yesterday. No significant change in mentation, fever, or white cell count with that stop. She continued to be confused With slow improvement on day #2 and day #3 of hospitalization. Today's #4. Social work was able to get permission to speak to the patient's niece Latisha Bello at [phone]. Up until now the patient has refused to allow us to speak to anybody in her family. She was very adamant about that. We were not to release any information to any family member. The morning of June 12 she finally allowed us to speak to Latisha. Social work was able to verify katey Latisha that the patient has mobility issues due to her multiple sclerosis. The niece has not seen her and since the pandemic started. But the patient is described as a very aware person of her surroundings. Appears to have normal cognitive abilities. She is very grouchy, a very private person, and can be combative. However her processing power is pretty normal. The family has been wanting her to get in-home care but she is very stubborn and independent. She did not want to share her medical issues with the family or be taken care of by anybody. The niece describes Ms. Lizarraga is not having any short-term memory issues. She does not mix up her words. She does not have any deficits that the niece is aware of. Today she tells me how she got here. She was able to remember that she was trying to pull a chair out and it got stuck underneath the table. She was standing with her walker. She tried to pull, pull, pull on the chair if finally got unstuck but it did so suddenly and she fell backwards landing on the floor hitting her head. She thinks she was only on the floor for a little while before her neighbors came and stood over her. She may have been on the floor for much longer than that. She does not remember having fever, chills, lack of appetite or change in anything until she fell.She is still confused. Cannot remember the date but she knows that she is in [facility]. Started to remember how she got here. Plan: MRI scan Today Occupational Therapy cognitive eval. I do not know if she is safe enough to get home to cook for herself clean for herself and take care of herself Physical therapy eval and treatment Qualifiers: Altered mental status type: delirium Qualified Code(s): R41.0 - Dis orientation, unspecified (2) Acute kidney injury Conclusion/Plan: This is likely prerenal and injury. We thought at first that her CPK was not the cause of her acute kidney injury. Initially she was 914 and then she went up to 1545. Creatinine has responded by going down to 0.9 from 1.3. Today CK is 511. We will continue her on IV lactated Ringer's. Recheck BMP in the morning. Avoid nephrotoxins. (3) Elevated CK Conclusion/Plan: Her CKs are elevated in the 900s>>1545>>900s>>511 today. This is likely due to her being found down. We will hydrate her with IV lactated Ringer's and recheck in the morning. (4) Multiple sclerosis, primary chronic progressive Conclusion/Plan: Stable and chronic. Once she is more alert and oriented, will assess her for possible physical therapy. (5) Hypothyroid Conclusion/Plan: We will continue her home Synthroid after TSH is checked. (6) Chronic pain syndrome. She states that she has chronic pain from back pain, arthritis pain. 06/11/2020 she asked for Percocet by name. Insist that she gets a prescription for this on a regular basis. Pharmacy went and looked at her insurance records and the last time she was prescribed Percocet and a small amount was in 2018. When I looked at her clinic records, the last time she Discussed an opioid was in 2015. At that time she was a clinic patient of Dr. Woods. He was starting to wean her off and had given her 1 last prescription. She then changed provider offices and asked the new provider office for Percocet. The new provider declined and stated that she was not to be getting opioids on a regular basis anymore. From what I can see in the clinic record she has not received any more Percocet or any other opioid since that time. At this time, I will not be giving her Percocet. We can use tramadol or Tylenol. I explained to her about the chart review. Qualifiers: Qualified Code(s): R41.0 - Disorientation, unspecified
[2020-06-13] MEDS ORDERED: diazePAM INJ 5 MG/ML SYRINGE IVP ONE (19:01)
[2020-06-13] MEDS: SODIUM CHLORIDE FLUSH 0.9% 10 ML SYRINGE IVP PRN (19:17)
[2020-06-13] MEDS: ATORVASTATIN 40 MG TABLET PO SCH (20:10)
[2020-06-14] MEDS: ACETAMINOPHEN 325 MG TABLET PO PRN ×2 (04:57→08:51)
[2020-06-14] MEDS: SODIUM CHLORIDE FLUSH 0.9% 10 ML SYRINGE IVP SCH ×3 (04:58→16:48)
[2020-06-14] MEDS: OXYMETAZOLINE HCL 100 SPRAYS BOTTLE NAS PRN ×2 (04:59→18:53)
[2020-06-14 06:04] LABS: BASOPHILS # (AUTO) 0.1 10^3/uL (0.0-0.1); BASOPHILS % (AUTO) 1.3 %; EOSINOPHILS # (AUTO) 0.1 10^3/uL (0.0-0.7); EOSINOPHILS % (AUTO) 1.2 %; HGB - HEMOGLOBIN 13.6 g/dL (12.0-16.0); LYMPHOCYTES # (AUTO) 2.5 10^3/uL (1.5-3.5); MEAN CORPUSCULAR HEMOGLOBIN 29.5 pg (27.0-31.0); MEAN CORPUSCULAR HGB CONC 32.2 g/dL (32.0-36.0); MEAN CORPUSCULAR VOLUME 91.8 fL (81.0-99.0); MEAN PLATELET VOLUME 10.5 fL (7.9-10.8); MONOCYTES # (AUTO) 0.7 10^3/uL (0.0-1.0); MONOCYTES % (AUTO) 8.2 %; NEUTROPHILS # (AUTO) 5.1 10^3/uL (1.5-6.6); NEUTROPHILS % (AUTO) 59.9 %; PLT - PLATELET COUNT 244 10^3/uL (130-450); RED BLOOD COUNT 4.61 10^6/uL (4.20-5.40); RED CELL DISTRIBUTION WIDTH 15.5 % (12.0-15.0); WHITE BLOOD COUNT 8.5 x10^3/uL (4.8-10.8)
[2020-06-14 06:36] LABS: CALCIUM 8.8 mg/dL (8.5-10.3); CREATININE 0.9 mg/dL (0.4-1.0); MAGNESIUM 1.7 mg/dL (1.7-2.8); PHOSPHORUS 2.9 mg/dL (2.5-4.6)
[2020-06-14] MEDS: LEVOTHYROXINE 25 MCG TABLET PO SCH (06:51)
--- NOTE | 2020-06-14 08:31 | MRI Report ---
PROCEDURE: Brain W/O INDICATIONS: new abrupt confusion in pt w MS TECHNIQUE: Noncontrast axial T1 spin echo, axial T2 fast spin echo, sagittal and axial FLAIR, coronal T2 fast sp in echo, axial gradient echo, axial diffusion and ADC through the brain. COMPARISON: CTA examination dated 06/10/2020. MRI examination dated 08/07/2014 FINDINGS: Image quality: Excellent. CSF Spaces: Basal cisterns are patent. No extra-axial fluid collections. Ventricles are normal in size and shape. Brain: No intracranial masses or hemorrhage. Zavaleta/white matter interface is normal. There is mild diffuse cervical volume loss. There is a [id number] degree of patchy high FLAIR signal within t he periventricular and subcortical white matter, which has increased slightly compared to the prior e xamination. Orientation of the lesions is compatible with the given history of multiple sclerosis. Mi ld patchy FLAIR signal elevation within the bilateral dinah, new/increased in the prior examination. B rainstem otherwise appears normal. Diffusion-weighted images demonstrate no acute ischemic insult. No chronic ischemic insults. Normal intravascular flow voids are present. Skull and face: Calvarium has normal marrow signal. Orbits appear normal. Sinuses: Sinuses and mastoids are clear. IMPRESSION: 1. Increased, mild to moderate degree of white matter disease, compatible with the given history of m ultiple sclerosis. 2. No acute process. No recent infarct. Reviewed by: Rosa Greer MD on 06/14/2020 8:30 AM [facility] Approved by: Rosa Greer MD on 06/14/2020 8:30 AM PST Station ID: [id number]
[2020-06-14] MEDS: HEPARIN 5,000 UNIT/ML VIAL SUBQ SCH ×2 (08:48→20:43)
[2020-06-14] MEDS: polyethylene glycoL 3350 17 GM PACKET PO SCH (08:49)
[2020-06-14] MEDS: levETIRAcetam 250 MG TABLET PO SCH ×2 (08:51→20:43)
[2020-06-14] MEDS: BACLOFEN 10 MG TABLET PO SCH ×4 (08:51→20:43)
[2020-06-14] MEDS: CLOPIDOGREL 75 MG TABLET PO SCH (08:51)
[2020-06-14] MEDS: NYSTATIN POWDER 15 GM TOP SCH ×2 (08:52→20:47)
--- NOTE | 2020-06-14 12:27 | PROVIDER PROGRESS NOTE ---
Subjective - Prog Note Date Prog Note Date: 06/14/20 Prog Note Time: 12:25 (seen at breakfast, again noon) - Subjective Pt reports feeling: Improved (recalls she fell at home, reports recent change in neurologist, hasnt seen the new one yet bc the prior ( retired, but notes Beatriz Medel [employer] knows her better. acknowledges sometimes taking 2 baclofen 4x daily, olu in winter, "cramp alot", RN also notes she requests the baclofen sooner than is due) Subjective: says she would consider brief SNF stay if PT/OT advised based on eval (worried about losing apartment if long stay) wouldnt mind some in home help "that walker seems flimsier than mine, I hope the ambulance drivers left mine at home" Current Medications - Current Medications Current Medications: Active Medications Acetaminophen (Acetaminophen 325 Mg Tablet) 650 mg PO Q4HR PRN PRN Reason: Pain 1 to 4 Last Admin: 06/14/20 08:51 Dose: 650 mg Documented by: Atorvastatin Calcium (Atorvastatin 40 Mg Tablet) 40 mg PO QPM [facility] Last Admin: 06/13/20 20:10 Dose: 40 mg Documented by: Baclofen (Baclofen 10 Mg Tablet) 10 mg PO QID [facility] Last Admin: 06/14/20 08:51 Dose: 10 mg Documented by: Clopidogrel Bisulfate (Clopidogrel 75 Mg Tablet) 75 mg PO DAILY [facility] Last Admin: 06/14/20 08:51 Dose: 75 mg Documented by: Heparin Sodium (Porcine) (Heparin 5,000 Unit/Ml Vial) 5,000 unit SUBQ BID [facility] Last Admin: 06/14/20 08:48 Dose: 5,000 unit Documented by: Levetiracetam (Levetiracetam 250 Mg Tablet) 500 mg PO BID [facility] Last Admin: 06/14/20 08:51 Dose: 500 mg Documented by: Levothyroxine Sodium (Levothyroxine 25 Mcg Tablet) 50 mcg PO QDAC [facility] Last Admin: 06/14/20 06:51 Dose: 50 mcg Documented by: Mineral Oil (Min Oil/Dimethicon/Coconut Oil 92 Gm Tube) 1 applic TOP PRN PRN PRN Reason: Skin Care Last Admin: 06/12/20 04:47 Dose: 1 applic Documented by: Nystatin (Nystatin Powder 15 Gm) 1 applic TOP BID [facility] Last Admin: 06/14/20 08:52 Dose: 1 applic Documented by: Ondansetron HCl (Ondansetron Odt 4 Mg Tablet) 4 mg TL Q6HR PRN PRN Reason: Nausea / Vomiting Ondansetron HCl (Ondansetron 4 Mg/2 Ml Vial) 4 mg IVP Q6HR PRN PRN Reason: Nausea / Vomiting Oxymetazoline HCl (Oxymetazoline Hcl 100 Sprays Bottle) 2 sprays WILLIE BID PRN PRN Reason: Nasal Congestion Last Admin: 06/14/20 04:59 Dose: 2 spr Documented by: Polyethylene Glycol (Polyethylene Glycol 3350 17 Gm Packet) 17 gm PO DAILY [facility] Last Admin: 06/14/20 08:49 Dose: 17 gm Documented by: Sodium Chloride (Sodium Chloride Flush 0.9% 10 Ml Syringe) 10 ml IVP PRN PRN PRN Reason: NEEDED PER PROVIDER ORDERS Last Admin: 06/13/20 19:17 Dose: 10 ml Documented by: Sodium Chloride (Sodium Chloride Flush 0.9% 10 Ml Syringe) 10 ml IVP 0100,0900,1700 [facility] Last Admin: 06/14/20 08:52 Dose: 10 ml Documented by: Cholestyramine [Questran] 4 gm PO QPM 04/28/13 Baclofen 10 mg PO QID 07/18/19 Clopidogrel [Plavix] 75 mg PO DAILY 07/18/19 Glucos Sul 2Kcl/MSM/Chond/C/Mn [Glucosamine Chondroitin Cap] 1 cap PO DAILY 07/18/19 Levothyroxine Sodium 50 mcg PO DAILY 07/18/19 Multivitamin/Iron/Folic Acid [Centrum Women Tablet] 1 ea ORAL DAILY 07/18/19 Atorvastatin [Lipitor] 40 mg PO QPM 02/10/20 Methylphenidate HCl [Methylphenidate ER] 40 mg PO DAILY 02/10/20 Metoprolol Succinate [Toprol Xl] 25 mg PO BID 02/10/20 levETIRAcetam [Roweepra] 500 mg PO BID 02/10/20 Furosemide [Lasix] 20 mg PO DAILY 06/11/20 Objective - Vital Signs/Intake & Output Reviewed Vital Signs: Yes Vital Signs: Vital Signs x48h Temp Pulse Resp BP Pulse Ox 06/14/20 11:57 36.7 C 86 16 123/83 H 95 06/14/20 07:47 36.6 C 82 18 140/87 H 96 06/14/20 05:00 36.5 C 85 18 129/80 96 Intake & Output: Intake & Output 06/11/20 06/12/20 06/13/20 06/14/20 23:59 23:59 23:59 23:59 Intake Total 5695.000 4348 4420.5 755 Output Total 1525 1350 3845 Balance 4170.000 2998 575.5 755 - Objective General Appearance: positive: No acute distress (eating breakfast in bed earlier, answers orientation?s accurately, again seen at lunch, up in chair, fluid in speech, provides good detail in responses) Respiratory: positive: Chest non-tender, No respiratory distress Cardiovascular: positive: Regular rate & rhythm, No murmur Abdomen: positive: Non-tender, No organomegaly Skin: positive: Warm, Dry. negative: No rash (occas tatoo on extremity, psoriatic like lesions front of shins,) Extremities: positive: Non-tender, Full ROM Neurologic/Psychiatric: positive: Oriented x3, Mood/affect nml, Disoriented to person, Disoriented to place, Other (LE strenght 5/5 bilaterally, up in chair feeding self w/o difficulty,) - Lab Results Fish Bones: 06/15/20 04:03 06/15/20 04:03 Other Labs: Lab Results x24hrs 06/14/20 06/14/20 Range/Units 05:56 05:56 WBC 8.5 (4.8-10.8) x10^3/uL RBC 4.61 (4.20-5.40) 10^6/uL Hgb 13.6 (12.0-16.0) g/dL Hct 42.3 (37.0-47.0) % MCV 91.8 (81.0-99.0) fL MCH 29.5 (27.0-31.0) pg MCHC 32.2 (32.0-36.0) g/dL RDW 15.5 H (12.0-15.0) % Plt Count 244 (130-450) 10^3/uL MPV 10.5 (7.9-10.8) fL Neut # (Auto) 5.1 (1.5-6.6) 10^3/uL Lymph # (Auto) 2.5 (1.5-3.5) 10^3/uL [place] # (Auto) 0.7 (0.0-1.0) 10^3/uL Eos # (Auto) 0.1 (0.0-0.7) 10^3/uL Baso # (Auto) 0.1 (0.0-0.1) 10^3/uL Absolute Nucleated RBC 0.00 x10^3/uL Nucleated RBC % 0.0 /100WBC Sodium 136 (135-145) mmol/L Potassium 3.8 (3.5-5.0) mmol/L Chloride 100 L (101-111) mmol/L Carbon Dioxide 25 (21-32) mmol/L Anion Gap 11.0 (6-13) BUN 10 (6-20) mg/dL Creatinine 0.9 (0.4-1.0) mg/dL Estimated GFR (MDRD) 63 L (>89) Glucose 133 H (70-100) mg/dL Calcium 8.8 (8.5-10.3) mg/dL Phosphorus 2.9 (2.5-4.6) mg/dL Magnesium 1.7 (1.7-2.8) mg/dL Assessment/Plan - Problem List (1) Acute metabolic encephalopathy Impression: 1) Acute metabolic encephalopathy multifactorial possible medication noncompliance and volume depletion Much improved Possibly due combination of excess baclofen and intravascular volume depletion; (and after d/w PCP she may be taking additional meds inappropriately e.g. excess ritalin, ? percocet as below #3 Otherwise negative work up to date, (no obvious culprit) and progresive improvement with no specific intervention other than IVF (-neg urine growth, empirically on abby given prior hx UtI ESBL, but meropenem d/c'd 06/12, -CTA head/neck unremarkable, -urine tox screen negative) possibly this was effect of excees baclofen compounded by volume depletion (as per prior ntoes below, no UTI) -MRI brain last PM ,No acute process, no recent infarct , increased mild to mod White mater disease, compatible with MS hx, OT cognitive eval 06/13 (SLUM) only per Annalena, also impulsive , memory deficit, reduced safety awareness. PT and OT will reeval compared with yesterday as she is remarkably more fluid in conversation today, and oriented, and adds appropriate detail Patient + agreeable to help at home or short SNF stay if recommended (per SW needs to be [facility] site as AARP Patient was too tired to work w/ OT aftr lunch , but PT noted definate improvement over 06/13, recommending SNF. SW d/w patient ? SNF vs inhome assist. Possible d/c tomorrow Will discuss w/ patient risks of excess baclofen (10 mg qid ordered, max dose is 20 mg q [employer] effects can impair physical/ mental abilities and additive w other [employer] depressants ; include confusion, dizziness, drowiness, asthenia, NV (2) Acute kidney injury and mild rhabdomyolysis w/ elevated CK on admit Conclusion/Plan: most c/w prerenal, resolved. 46/1.3 on admit, 10/0.9 today 06/14 mild rhabdo on admit elevated CK resolved r/t unknown time frame down after fall. CK's improved ( wrlevated in the 900s>>1545>>900s>>511 06/13 after several days IV LR This is likely due to her being found down. We will hydrate her with IV lactated Ringer's and recheck in the morning. (3) Multiple sclerosis, primary chronic progressive Conclusion/Plan: not on maintenance Tx, (reports was on IFN ~ 10 yrs ago, has new neurologist (Lulu?)as old one (Violetta Ramirez? retired, has not yet seen new one Mentation much improved today, as above awaiting defined plan, SNF vs home w/ assist Tolerating QI 10 mg baclofen d/w Beatriz Medel PCP who notes patient HAS taken medications inappropriately in past (e.g rx'd methylphenidate 40 mg daily; pt taking as many as 3 daily, pt telling RN she has "leftover " percocet. Hx Urinary retention / w/ 400+ on PVR's this admit; Encourage frequenct toileting. Considered oxybutynin for reports of dribbling also but lang mccracken worsen retenstion Encourage frequent toileting (5) Hypothyroid continues home LT4 (6) Chronic pain syndrome. chronic pain from back pain, arthritis pain. 06/11/2020 asked for Percocet by name and insisted she has regular Rx for percocet Pharmacy looked at her insurance records/last time she was prescribed Percocet and a small amount was in 2018. Dr Marquez checked linic records, the last time she Discussed an opioid was in 2015. At that time she was a clinic patient of Dr. Woods. He was starting to wean her off and had given her 1 last prescription. She then changed provider offices and asked the new provider office for Percocet. The new provider declined and stated that she was not to be getting opioids on a regular basis anymore. From Dr Mancilla review of clinic record, Ms Lizarraga she has not rece ived any more Percocet or any other opioid since that time. Giving prn tramadol or tylenol
[2020-06-14] MEDS: ATORVASTATIN 40 MG TABLET PO SCH (20:43)
[2020-06-14] MEDS ORDERED: OXYBUTYNIN 5MG TABLET PO SCH (21:00)
[2020-06-15] MEDS: SODIUM CHLORIDE FLUSH 0.9% 10 ML SYRINGE IVP SCH ×3 (01:00→16:46)
[2020-06-15 04:42] LABS: BASOPHILS # (AUTO) 0.1 10^3/uL (0.0-0.1); BASOPHILS % (AUTO) 1.4 %; EOSINOPHILS # (AUTO) 0.4 10^3/uL (0.0-0.7); EOSINOPHILS % (AUTO) 4.7 %; HGB - HEMOGLOBIN 13.5 g/dL (12.0-16.0); LYMPHOCYTES # (AUTO) 2.7 10^3/uL (1.5-3.5); LYMPHOCYTES % (AUTO) 33.3 %; MEAN CORPUSCULAR HGB CONC 32.9 g/dL (32.0-36.0); MEAN CORPUSCULAR VOLUME 91.1 fL (81.0-99.0); MONOCYTES # (AUTO) 0.7 10^3/uL (0.0-1.0); MONOCYTES % (AUTO) 9.2 %; NEUTROPHILS # (AUTO) 4.1 10^3/uL (1.5-6.6); NEUTROPHILS % (AUTO) 51.2 %; PLT - PLATELET COUNT 253 10^3/uL (130-450); RED CELL DISTRIBUTION WIDTH 15.6 % (12.0-15.0); WHITE BLOOD COUNT 8.1 x10^3/uL (4.8-10.8)
[2020-06-15 04:44] LABS: CALCIUM 9.2 mg/dL (8.5-10.3); CREATININE 0.8 mg/dL (0.4-1.0); PHOSPHORUS 3.9 mg/dL (2.5-4.6)
[2020-06-15] MEDS: LEVOTHYROXINE 25 MCG TABLET PO SCH (06:39)
[2020-06-15] MEDS: CLOPIDOGREL 75 MG TABLET PO SCH (08:58)
[2020-06-15] MEDS: polyethylene glycoL 3350 17 GM PACKET PO SCH (08:58)
[2020-06-15] MEDS: BACLOFEN 10 MG TABLET PO SCH ×4 (08:58→21:47)
[2020-06-15] MEDS: NYSTATIN POWDER 15 GM TOP SCH ×2 (08:58→21:47)
[2020-06-15] MEDS: levETIRAcetam 250 MG TABLET PO SCH ×2 (08:58→21:47)
[2020-06-15] MEDS: HEPARIN 5,000 UNIT/ML VIAL SUBQ SCH ×2 (09:03→21:46)
--- NOTE | 2020-06-15 11:39 | Discharge Plan ---
"Discharge Plan for SNF / [facility] - Discharge Plan And Transition Orders Problem Reviewed?: Yes Disposition: 03 SNF DC/Xfer Condition: Stable Allergies and Adverse Reactions: Allergies Allergy/AdvReac Type Severity Reaction Status Date / Time No Known Drug Allergies Allergy Verified 06/10/20 20:53 Health Concerns: 1) Delerium/ Acute metabolic encephalopathy -Resolved, patient at baseline mentation -Likely related to drug drug interactions, possible medication noncompliance and intravascular volume depletion. PCP notes patient has taken her prescribed medication inappropriately in past (e.g. ritalin rx'd as 40 mg daily, she has taken as many as 3 daily, patient notes taking more baclofen than prescribed, may be taking percocet that is not prescribed (though no opiate in urine) and hemoconcentrated/dry on lasix without clear indication -Cognition improved markedly over several days (SLUM score by OT on 06/13 . Improved to on recheck 06/15 with patient more fluid in conversation, and providing appropriate detail and asking appropriate questions in conversation -CTA head / neck unremarkable -MRI brain last PM ,No acute process, no recent infarct , increased mild to mod White mater disease, compatible with MS hx, -urine tox screen negative -Urine culture negative Plan; evaluated by PT/OT who recommended SNF stay, patient agreeable, d/c to [facility] reinforce need to take medications only as prescribed once discharged home holding lasix given several admissions w/ volume depletion and no clear indication; see below 2) Intravscular volume depletion and prerenal KJ resolved w/ IV hydration (BUN/Cr 46/1.3 on admit . improved 10/0.9 on 06/15/ Mild rhabdomyolysis / elevated CK to ~ 1400 due to found down for unclear amount of time resolved 3) MS ; not on maintenance therapy On QID baclofen for muscle spasm (possibly she was taking excess dose at home) Hx of issues with urinary retention Toilet frequently to reduce risk of retention (q 3-4 hrs while awake and before bed) Patient previously followed by Dr Radha Loving, Patient reports she is retired and has not yet seen her new neurologist Plan; continue QID baclofen, frequent toileting, tylenol prn for pain 4) chronic pain; In the PAST in 2015 patient WAS on percocet, however she is no longer prescribed percocet for several years. Pope; prn tylenol ok 5) History of seizure disorder On keppra; no seizures here Plan; continue Keppra 6) history of ME, Plan; continue plavix, metoprolol, statin Patient was on lasix 20 mg daily, and oral potassium daily. She has had recent admissions for volume depletion, no known history of CHF (no Echo in computer). She has been stable since hydrated after admission. Lasix is on HOLD for now, consider resuming M/W/F if any evidence of fluid retention Care Goals: maximize functional level return home to independent living vs with some in home support - SNF / [facility] Transition Orders Admit to (Facility): [facility] Under the care of (Name): Beatriz Medel NP PCP Discharge Diagnosis: Delerium likely related to drug drug interactions, possible medication noncompliance and intravascular volume depletion Resolved, patient at baseline mentation 2) intravascular volume depletion, prerenal KJ, mild rhabdo ; resolved 3) Multiple sclerosis 4) chornic pain 5) hx of seizure disorder 6) hx of ME 7) hx of urinary retention/ UTI; no UTI here Medicare Certification Statement: I certify that Post Hospital care home care is medically necessary on a continuing basis for any of the conditions for which she/he is receiving care during hospitalization. Notify PCP of admission and forward orders to primary provider for signature. Weight on admission and: Weekly Other Notification Orders: Call PCP immediately if patient develops dyspnea, chest pain/tightness or edema. House Bowel Program: Yes Additional Bowel Program Orders: If no BM after 2 days, nurse may give M.O.M. 30ml PO PRN and/or ducolax Supp 1 LA and/or MACRINA 250mg P.O., and/or senna 1-2 tabs PO. On day 3 nurse may give repeat above order until residents constipation is resolved. Annual Influenza Vaccine (between Jan 04 and August 03): Yes Two-step PPD per [facility] [id number] or approved exception documents: Yes Treatments & Other Orders: Physical Therapy and Occupational therapy with goal: to maximize functional status and return to independent living (vs return home w/ some support) Oxygen Orders: none Lab Tests or X-ray Orders: none Orthopedic Orders: none Medication Orders: PLEASE REFER TO THE DISCHARGE MEDICATION LIST. Insulin Orders?: No - Diet Texture: Regular Liquids: Thin May have monthly special meal: Yes - Therapies | Activity Therapy: Evaluation | Treat if indicated: PT, OT Rehabilitation Potential: Maximize functional status, Return to independent living Activity: Activity as Tolerated Weight Bearing: Full Weight Assistance Devices: Walker"
--- NOTE | 2020-06-15 12:42 | DISCHARGE SUMMARY ---
"Discharge Summary Admit Date: 06/10/20 Discharge Date: 06/15/20 Discharging Provider: CHEPE Wagner Primary Care Provider: Beatriz Medel NP Code Status: Attempt Resuscitation Condition at Discharge: Stable Discharge Disposition: SNF DC/Xfer Discharge Facility [facility]: [facility] - DIAGNOSES Admission Diagnoses: 1) Altered mental status 2) acute kidney injury 3) elevated CK 4) Multiple sclerosis, primary chronic progressive 5) Hypothyroidism Discharge Diagnoses with Status of Each Condition: 1) Derlerium/ acute metabolic encephalopathy; resolved 2) acute kidney injury/prerenal/ intravascular volume depletion ; resolved 3) elevated CK; resolved 4) Multiple sclerosis, primary chronic progressive; stable 5) Hypothyroidism ; stable 6) history of seizure disorder ; stable - HPI History of Present Illness: This is a 64-year-old female with a past medical history significant for multiple sclerosis, hypothyroidism, recurrent urinary tract infections who presents today to the emergency department via ambulance after she was found down at home by her neighbors. Her last known normal is unknown. History from the patient is limited as she is altered and unable to provide a meaningful history. She is able to tell me she is at hospital and can tell me her name as well as date of . She otherwise will repeat her name when asked any other questions. She does deny having any chest pain, dyspnea or any pain in general. Per the emergency department provider, the patient was found down at home by her neighbor at around 8 PM. It was unclear how long she had been down for. Her neighbors checked on her because they noticed her door was open at 5 PM and again at 8 PM. She was found to be slightly hypothermic with temperature of 35.5 C by EMS. The patient has been admitted multiple times in the past for altered mental status due to dehydration and urinary tract infections. In the emergency department, she was found to be afebrile temperature of 36.6 C. Her heart rate was in the 80s. She was not tachypneic and saturating well on room air. Labs were significant for a white count of 12.6 with a left shift. Her BUN was 46 and her creatinine was 1.3. Urine toxicology was unremarkable. CKs were elevated at 914. Her urinalysis was a dirty catch with moderate squamous cells. CTA of the head and neck were unremarkable. She was given a liter of saline and a dose of meropenem IV in the emergency department given concern for possible urinary tract infection given her history in the past of multiple admissions for altered mental status with urinary tract infections. Given the above findings, medicine was consulted for admission. - CONSULTS | PROCEDURES Consultations: no subspecialists, PT and OT consults Procedures: none - HOSPITAL COURSE Hospital Course: 1) Delerium/ Acute metabolic encephalopathy -Resolved, patient at baseline mentation -Likely related to drug drug interactions, possible medication noncompliance and intravascular volume depletion. PCP notes patient has taken her prescribed me dication inappropriately in past (e.g. ritalin rx'd as 40 mg daily, she has taken as many as 3 daily, patient notes taking more baclofen than prescribed, may be taking percocet that is not prescribed (though no opiate in urine) and hemoconcentrated/dry with daily lasix without clear indication -Cognition improved markedly over several days, with waxing waning delerium (SLUM score by OT on 06/13 , very impulsive, significant memory deficit and reduced safety awarenss. Improved considerably to on recheck 06/15 with patient more fluid in conversation, and providing appropriate detail and asking appropriate questions in conversation -Urine culture negative (initially was empirically on meropenem given hx of ESBL, but cathed specimen no growth) -CTA head / neck unremarkable -MRI brain 06/13/20 ,No acute process, no recent infarct , increased mild to mod White mater disease, compatible with MS hx, -urine tox screen negative Patient was on lasix 20 mg daily, and oral potassium daily. She has had recent admissions for volume depletion, no known history of CHF (no Echo in computer). She has been stable since hydrated after admission. (of note , Lasix not noted on february 2020 discharge summary Lasix is on HOLD for now, consider resuming M/W/F if any evidence of fluid retention (2) Acute kidney injury and mild rhabdomyolysis w/ elevated CK on admit 2) Intravscular volume depletion and prerenal KJ resolved w/ IV hydration (BUN/Cr 46/1.3 on admit . improved 10/0.9 on 06/15/20 Mild rhabdomyolysis / elevated CK to ~ 1400 due to found down for unclear amount of time resolv CK's improved ( 900s>>1545>>900s>>511 06/13 after several days IV LR As above, given history of admission w/ intravascular volume depletion, holding Lasix on discharge. If has indication to resume, consider nondaily dosing or only weight based. No hx CHF (3) Multiple sclerosis, primary chronic progressive Stable not on maintenance therapy (reports was on IFN ~ 10 yrs ago) On QID 10 mg baclofen for muscle spasm (possibly she was taking excess dose at home) Hx of issues with urinary retention REcommend; Toilet frequently to reduce risk of retention (q 3-4 hrs while awake and before bed) Patient previously followed by Dr Radha Loving, Patient reports she is retired and has not yet seen her new neurologist (Dr Lawson (?) Plan; continue QID baclofen, frequent toileting, tylenol prn for pain (5) Hypothyroid continues home LT4 (6) Chronic pain syndrome. In the PAST in 2015 patient WAS on percocet and requested percocet,however review of records; she is no longer prescribed percocet for several years. Pope; prn tylenol ok 5) History of seizure disorder On keppra; no seizures here Plan; continue Keppra 6) history of OR, Plan; continue plavix, metoprolol, statin - ALLERGIES Allergies/Adverse Reactions: Allergies Allergy/AdvReac Type Severity Reaction Status Date / Time No Known Drug Allergies Allergy Verified 06/10/20 20:53 - MEDICATIONS Home Medications: Ambulatory Orders Medication Instructions Recorded Confirmed Cholestyramine [Questran] 4 gm PO QPM 04/28/13 06/11/20 Baclofen 10 mg PO QID 07/18/19 06/11/20 Clopidogrel [Plavix] 75 mg PO DAILY 07/18/19 06/10/20 Glucos Sul 2Kcl/MSM/Chond/C/Mn 1 cap PO DAILY 07/18/19 06/10/20 [Glucosamine Chondroitin Cap] Levothyroxine Sodium 50 mcg PO DAILY 07/18/19 06/10/20 Multivitamin/Iron/Folic Acid 1 ea ORAL DAILY 07/18/19 06/10/20 [Centrum Women Tablet] Atorvastatin [Lipitor] 40 mg PO QPM 02/10/20 06/11/20 Methylphenidate HCl 40 mg PO DAILY 02/10/20 06/10/20 [Methylphenidate ER] levETIRAcetam [Roweepra] 500 mg PO BID 02/10/20 06/10/20 Acetaminophen [Tylenol] 650 mg PO Q4HR PRN 06/15/20 Metoprolol Succinate [Toprol Xl] 25 mg PO BID #0 06/15/20 06/11/20 Oxymetazoline HCl [Afrin] 2 sprays WILLIE BID PRN bottle 06/15/20 - PHYSICAL EXAM AT DISCHARGE General Appearance: positive: No acute distress, Alert Eyes Bilateral: positive: Normal inspection, PERRL, EOMI Respiratory: positive: Chest non-tender, No respiratory distress, Breath sounds nml Cardiovascular: positive: Regular rate & rhythm, No murmur Abdomen: positive: Non-tender, Nml bowel sounds, No distention Skin: positive: Warm, Dry, Other (psoriatic like lesions anterior shins, occas tatoo) Extremities: negative: Pedal edema Neurologic/Psychiatric: positive: Oriented x3, Mood/affect nml, Weakness (no focal weakness, bilat upper ext strenght 5/5, walks w / PT w/ walker), Other (cooperative, agreeable to skilled facility for discharge) - LABS Result Diagrams: 06/15/20 04:03 06/15/20 04:03 - DIAGNOSTIC IMAGING Diagnostic Imaging Results: Final report reviewed Diagnostic Imaging Results Comments: Brain MRI 06/14/20 No acute process, no recent infarct mild to mod white matter disease compatible withhx of MS, CTA neck: 06/10/20; No significant stenosis, No aneurysm, dissection ( origin of commmon carotids patent and normal calibers/ courses. Posterior i rculation; origins patent, superior portions of veebral arteries normal course and caliber) CTA head 06/10/20 Normal appearance of intracranial vasculature w/ normal anatomic variant of diminutive L vertebral artery and normal caliber of basilar artery extening dominant R vertebral artery and diminutive L vertebral artery cephalad - FOLLOW UP Follow Up: follow up with Beatriz Medel after SNF discharge, - TIME SPENT Time Spent in Discharge (Minutes): 35 (> 35 minutes planning d/c with SW, d/w details w/ patient, exam pt, d/w RN)"
[2020-06-15 12:50] LABS: C. PNEUMONIAE- RESP PCR PANEL NOT DETECTED
[2020-06-15] MEDS: ACETAMINOPHEN 325 MG TABLET PO PRN ×2 (13:16→19:19)
[2020-06-15] MEDS: OXYMETAZOLINE HCL 100 SPRAYS BOTTLE NAS PRN ×2 (13:19→21:54)
--- NOTE | 2020-06-15 17:54 | PROVIDER PROGRESS NOTE ---
Subjective - Prog Note Date Prog Note Date: 06/15/20 Prog Note Time: 17:52 (seen earlier several times) - Subjective Pt reports feeling: Improved (agreeable to transfer/discharge to skilled facility , aware insurance not cleared by late afternoon, so unable to discharge today. feeling improved) Current Medications - Current Medications Current Medications: Active Medications Acetaminophen (Acetaminophen 325 Mg Tablet) 650 mg PO Q4HR PRN PRN Reason: Pain 1 to 4 Last Admin: 06/15/20 13:16 Dose: 650 mg Documented by: Atorvastatin Calcium (Atorvastatin 40 Mg Tablet) 40 mg PO QPM [facility] Last Admin: 06/14/20 20:43 Dose: 40 mg Documented by: Baclofen (Baclofen 10 Mg Tablet) 10 mg PO QID [facility] Last Admin: 06/15/20 16:46 Dose: 10 mg Documented by: Clopidogrel Bisulfate (Clopidogrel 75 Mg Tablet) 75 mg PO DAILY [facility] [place] Last Admin: 06/15/20 08:58 Dose: 75 mg Documented by: Heparin Sodium (Porcine) (Heparin 5,000 Unit/Ml Vial) 5,000 unit SUBQ BID [facility] Last Admin: 06/15/20 09:03 Dose: 5,000 unit Documented by: Levetiracetam (Levetiracetam 250 Mg Tablet) 500 mg PO BID [facility] [place] Last Admin: 06/15/20 08:58 Dose: 500 mg Documented by: Levothyroxine Sodium (Levothyroxine 25 Mcg Tablet) 50 mcg PO QDAC [facility] [place] Last Admin: 06/15/20 06:39 Dose: 50 mcg Documented by: Mineral Oil (Min Oil/Dimethicon/Coconut Oil 92 Gm Tube) 1 applic TOP PRN PRN PRN Reason: Skin Care Last Admin: 06/12/20 04:47 Dose: 1 applic Documented by: Nystatin (Nystatin Powder 15 Gm) 1 applic TOP BID [facility] [place] Last Admin: 06/15/20 08:58 Dose: 1 applic Documented by: Ondansetron HCl (Ondansetron Odt 4 Mg Tablet) 4 mg TL Q6HR PRN PRN Reason: Nausea / Vomiting Ondansetron HCl (Ondansetron 4 Mg/2 Ml Vial) 4 mg IVP Q6HR PRN PRN Reason: Nausea / Vomiting Oxymetazoline HCl (Oxymetazoline Hcl 100 Sprays Bottle) 2 sprays WILLIE BID PRN PRN Reason: Nasal Congestion Last Admin: 06/15/20 13:19 Dose: 1 spr Documented by: Polyethylene Glycol (Polyethylene Glycol 3350 17 Gm Packet) 17 gm PO DAILY [facility] [place] Last Admin: 06/15/20 08:58 Dose: 17 gm Documented by: Sodium Chloride (Sodium Chloride Flush 0.9% 10 Ml Syringe) 10 ml IVP PRN PRN PRN Reason: NEEDED PER PROVIDER ORDERS Last Admin: 06/13/20 19:17 Dose: 10 ml Documented by: Sodium Chloride (Sodium Chloride Flush 0.9% 10 Ml Syringe) 10 ml IVP 0100,0900,1700 [facility] [place] Last Admin: 06/15/20 16:46 Dose: 10 ml Documented by: Cholestyramine [Questran] 4 gm PO QPM 04/28/13 Baclofen 10 mg PO QID 07/18/19 Clopidogrel [Plavix] 75 mg PO DAILY 07/18/19 Glucos Sul 2Kcl/MSM/Chond/C/Mn [Glucosamine Chondroitin Cap] 1 cap PO DAILY 07/18/19 Levothyroxine Sodium 50 mcg PO DAILY 07/18/19 Multivitamin/Iron/Folic Acid [Centrum Women Tablet] 1 ea ORAL DAILY 07/18/19 Atorvastatin [Lipitor] 40 mg PO QPM 02/10/20 Methylphenidate HCl [Methylphenidate ER] 40 mg PO DAILY 02/10/20 levETIRAcetam [Roweepra] 500 mg PO BID 02/10/20 Objective - Vital Signs/Intake & Output Reviewed Vital Signs: Yes Vital Signs: Vital Signs x48h Temp Pulse Resp BP Pulse Ox 06/15/20 16:01 37.6 C 86 18 120/78 95 06/15/20 11:30 37.1 C 95 18 109/73 96 Intake & Output: Intake & Output 06/12/20 06/13/20 06/14/20 06/15/20 23:59 23:59 23:59 23:59 Intake Total 4348 4420.5 1095 960 Output Total 1350 3845 400 450 Balance 2998 575.5 695 510 - Objective General Appearance: positive: No acute distress, Alert, Other (seen up in chair earlier, now lying in bed, watching TV, conversant, fluid, appropriate) Eyes Bilateral: positive: Normal inspection, PERRL, EOMI Respiratory: positive: Chest non-tender, No respiratory distress, Breath sounds nml Cardiovascular: positive: Regular rate & rhythm, No murmur Abdomen: positive: Non-tender, Nml bowel sounds, No distention, Other (generous abdomen, adult pad) Skin: positive: Warm, Dry, Other (psoriatic like lesions anterior shins) Extremities: negative: Pedal edema Neurologic/Psychiatric: positive: Oriented x3, Motor nml (UE and LE strenght 5/5), Mood/affect nml - Lab Results Fish Bones: 06/15/20 04:03 06/15/20 04:03 Other Labs: Lab Results x24hrs 06/15/20 06/15/20 06/15/20 Range/Units 11:12 04:03 04:03 WBC 8.1 (4.8-10.8) x10^3/uL RBC 4.50 (4.20-5.40) 10^6/uL Hgb 13.5 (12.0-16.0) g/dL Hct 41.0 (37.0-47.0) % MCV 91.1 (81.0-99.0) fL MCH 30.0 (27.0-31.0) pg MCHC 32.9 (32.0-36.0) g/dL RDW 15.6 H (12.0-15.0) % Plt Count 253 (130-450) 10^3/uL MPV 11.0 H (7.9-10.8) fL Neut # (Auto) 4.1 (1.5-6.6) 10^3/uL Lymph # (Auto) 2.7 (1.5-3.5) 10^3/uL Story # (Auto) 0.7 (0.0-1.0) 10^3/uL Eos # (Auto) 0.4 (0.0-0.7) 10^3/uL Baso # (Auto) 0.1 (0.0-0.1) 10^3/uL Absolute Nucleated RBC 0.00 x10^3/uL Nucleated RBC % 0.0 /100WBC Sodium 141 (135-145) mmol/L Potassium 3.9 (3.5-5.0) mmol/L Chloride 105 (101-111) mmol/L Carbon Dioxide 25 (21-32) mmol/L Anion Gap 11.0 (6-13) BUN 16 (6-20) mg/dL Creatinine 0.8 (0.4-1.0) mg/dL Estimated GFR (MDRD) 72 L (>89) Glucose 102 H (70-100) mg/dL POC Whole Bld Glucose (70 - 100) mg/dL Calcium 9.2 (8.5-10.3) mg/dL Phosphorus 3.9 (2.5-4.6) mg/dL Magnesium 2.0 (1.7-2.8) mg/dL Nasal Adenovirus (PCR) NOT DETECTED Nasal B. parapertussis DNA (PCR) NOT DETECTED Nasal Coronavir 229E PCR NOT DETECTED Nasal Coronavir HKU1 PCR NOT DETECTED Nasal Coronavir NL63 PCR NOT DETECTED Nasal Coronavir OC43 PCR NOT DETECTED Nasal Enterovir/Rhinovir PCR NOT DETECTED Nasal Influenza B PCR NOT DETECTED Nasal Influenza A PCR NOT DETECTED Nasal Parainfluen 1 PCR NOT DETECTED Nasal Parainfluen 2 PCR NOT DETECTED Nasal Parainfluen 3 PCR NOT DETECTED Nasal Parainfluen 4 PCR NOT DETECTED Nasal RSV (PCR) NOT DETECTED Nasal B.pertussis DNA PCR NOT DETECTED Nasal C.pneumoniae (PCR) NOT DETECTED Willie Human Metapneumo PCR NOT DETECTED Nasal M.pneumoniae (PCR) NOT DETECTED Nasal SARS-CoV-2 (PCR) NOT DETECTED 06/10/20 Range/Units 21:01 WBC (4.8-10.8) x10^3/uL RBC (4.20-5.40) 10^6/uL Hgb (12.0-16.0) g/dL Hct (37.0-47.0) % MCV (81.0-99.0) fL MCH (27.0-31.0) pg MCHC (32.0-36.0) g/dL RDW (12.0-15.0) % Plt Count (130-450) 10^3/uL MPV (7.9-10.8) fL Neut # (Auto) (1.5-6.6) 10^3/uL Lymph # (Auto) (1.5-3.5) 10^3/uL Story # (Auto) (0.0-1.0) 10^3/uL Eos # (Auto) (0.0-0.7) 10^3/uL Baso # (Auto) (0.0-0.1) 10^3/uL Absolute Nucleated RBC x10^3/uL Nucleated RBC % /100WBC Sodium (135-145) mmol/L Potassium (3.5-5.0) mmol/L Chloride (101-111) mmol/L Carbon Dioxide (21-32) mmol/L Anion Gap (6-13) BUN (6-20) mg/dL Creatinine (0.4-1.0) mg/dL Estimated GFR (MDRD) (>89) Glucose (70-100) mg/dL POC Whole Bld Glucose 93 (70 - 100) mg/dL Calcium (8.5-10.3) mg/dL Phosphorus (2.5-4.6) mg/dL Magnesium (1.7-2.8) mg/dL Nasal Adenovirus (PCR) Nasal B. parapertussis DNA (PCR) Nasal Coronavir 229E PCR Nasal Coronavir HKU1 PCR Nasal Coronavir NL63 PCR Nasal Coronavir OC43 PCR Nasal Enterovir/Rhinovir PCR Nasal Influenza B PCR Nasal Influenza A PCR Nasal Parainfluen 1 PCR Nasal Parainfluen 2 PCR Nasal Parainfluen 3 PCR Nasal Parainfluen 4 PCR Nasal RSV (PCR) Nasal B.pertussis DNA PCR Nasal C.pneumoniae (PCR) Willie Human Metapneumo PCR Nasal M.pneumoniae (PCR) Nasal SARS-CoV-2 (PCR) Assessment/Plan - Problem List (1) Acute metabolic encephalopathy Impression: 1) Acute metabolic encephalopathy multifactorial possible medication noncompliance and volume depletion Much improved, Suspect she is at her cognitive baseline OT repeated SLUM test today 06/15 improved from - (of note items missed were e.g day of week after being hospitalized several days Delerium possibly due combination of excess baclofen and intravascular volume depletion; (and after d/w PCP she may be taking additional meds inappropriately e.g. excess ritalin, ? percocet as below #3 negative work up to date, (no obvious culprit) and progresive improvement with no specific intervention other than IVF (-neg urine growth, empirically on abby given prior hx UtI ESBL, but meropenem d/c'd 06/12, -CTA head/neck unremarkable, -urine tox screen negative) possibly this was effect of excees baclofen compounded by volume depletion (as per prior ntoes below, no UTI) -MRI brain last PM ,No acute process, no recent infarct , increased mild to mod White mater disease, compatible with MS hx, OT cognitive eval 06/13 (SLUM) only per Annalena, also impulsive , memory deficit, reduced safety awareness. PT and OT will reeval compared with yesterday as she is remarkably more fluid in conversation today, and oriented, and adds appropriate detail Patient + agreeable to help at home or short SNF stay if recommended (per SW needs to be [facility] site as AARP (2) Acute kidney injury and mild rhabdomyolysis w/ elevated CK on admit Conclusion/Plan: resolved most c/w prerenal, resolved. 46/1.3 on admit, 10/0.9 today 06/14 mild rhabdo on admit having been found down(CKthe 900s>>1545>>900s>>511 06/13 after several days IV LR rosis, primary chronic progressive Conclusion/Plan: not on maintenance Tx, (reports was on IFN ~ 10 yrs ago, has new neurologist (Me chaparro?)as old one (Violetta Ramirez? retired, has not yet seen new one Mentation much improved today, as above awaiting defined plan, SNF vs home w/ assist Tolerating QI 10 mg baclofen d/w Beatriz Medel PCP who notes patient HAS taken medications inappropriately in past (e.g rx'd methylphenidate 40 mg daily; pt taking as many as 3 daily, pt telling RN she has "leftover " percocet. Hx Urinary retention / w/ 400+ on PVR's this admit; Encourage frequenct toileting. Considered oxybutynin for reports of dribbling also but lang mccracken worsen retenstion Encourage frequent toileting (5) Hypothyroid continues home LT4 (6) Chronic pain syndrome. may be taking unprescribed Percocet at home prn (though urine tox screen negative for opiate) She requested specifically and stated it was prescribed, but review of old and outpatient records found no prescription was 2016. Tylenol working for chronic arthritic pain and back pain during hospitalization , and she subsequently did not request percoct
[2020-06-15] MEDS: ATORVASTATIN 40 MG TABLET PO SCH (21:47)
[2020-06-16] MEDS: SODIUM CHLORIDE FLUSH 0.9% 10 ML SYRINGE IVP SCH ×2 (00:20→11:30)
[2020-06-16] MEDS: LEVOTHYROXINE 25 MCG TABLET PO SCH (06:13)
[2020-06-16] MEDS: levETIRAcetam 250 MG TABLET PO SCH (09:09)
[2020-06-16] MEDS: BACLOFEN 10 MG TABLET PO SCH ×2 (09:09→12:27)
[2020-06-16] MEDS: CLOPIDOGREL 75 MG TABLET PO SCH (09:09)
[2020-06-16] MEDS: HEPARIN 5,000 UNIT/ML VIAL SUBQ SCH (09:10)
[2020-06-16] MEDS: polyethylene glycoL 3350 17 GM PACKET PO SCH (09:10)
--- NOTE | 2020-06-16 10:38 | Discharge Plan ---
Discharge Plan for SNF / [facility] - Discharge Plan And Transition Orders Disposition: 03 SNF DC/Xfer Condition: Stable Allergies and Adverse Reactions: Allergies Allergy/AdvReac Type Severity Reaction Status Date / Time No Known Drug Allergies Allergy Verified 06/10/20 20:53 Health Concerns: 1) Delerium/ Acute metabolic encephalopathy -Resolved, patient at baseline mentation -Likely related to drug drug interactions, possible medication noncompliance and intravascular volume depletion. PCP notes patient has taken her prescribed medication inappropriately in past (e.g. ritalin rx'd as 40 mg daily, she has taken as many as 3 daily, patient notes taking more baclofen than prescribed, may be taking percocet that is not prescribed (though no opiate in urine) and hemoconcentrated/dry on lasix without clear indication -Cognition improved markedly over several days (SLUM score by OT on 06/13 . Improved to on recheck 06/15 with patient more fluid in conversation, and providing appropriate detail and asking appropriate questions in conversation -CTA head / neck unremarkable -MRI brain last PM ,No acute process, no recent infarct , increased mild to mod White mater disease, compatible with MS hx, -urine tox screen negative -Urine culture negative Plan; evaluated by PT/OT who recommended SNF stay, patient agreeable, d/c to [facility] reinforce need to take medications only as prescribed once discharged home holding lasix given several admissions w/ volume depletion and no clear indication; see below 2) Intravscular volume depletion and prerenal KJ resolved w/ IV hydration (BUN/Cr 46/1.3 on admit . improved 10/0.9 on 06/15/ Mild rhabdomyolysis / elevated CK to ~ 1400 due to found down for unclear amount of time resolved 3) MS ; not on maintenance therapy On QID baclofen for muscle spasm (possibly she was taking excess dose at home) Hx of issues with urinary retention Toilet frequently to reduce risk of retention (q 3-4 hrs while awake and before bed) Patient previously followed by Dr Radha Loving, Patient reports she is retired and has not yet seen her new neurologist Plan; continue QID baclofen, frequent toileting, tylenol prn for pain 4) chronic pain; In the PAST in 2015 patient WAS on percocet, however she is no longer prescribed percocet for several years. Pope; prn tylenol ok 5) History of seizure disorder On keppra; no seizures here Plan; continue Keppra 6) history of [place], Plan; continue plavix, metoprolol, statin Patient was on lasix 20 mg daily, and oral potassium daily. She has had recent admissions for volume depletion, no known history of CHF (no Echo in computer). She has been stable since hydrated after admission. Lasix is on HOLD for now, consider resuming M/W/F if any evidence of fluid retention Care Goals: maximize functional level return home to independent living vs with some in home support - SNF / [facility] Transition Orders Medicare Certification Statement: I certify that [facility] nursing home care is medically necessary on a continuing basis for any of the conditions for which she/he is receiving care during hospitalization. Notify PCP of admission and forward orders to primary provider for signature. Other Notification Orders: Call PCP immediately if patient develops dyspnea, chest pain/tightness or edema. Additional Bowel Program Orders: If no BM after 2 days, nurse may give M.O.M. 30ml PO PRN and/or ducolax Supp 1 WA and/or MACRINA 250mg P.O., and/or senna 1-2 tabs PO. On day 3 nurse may give repeat above order until residents constipation is resolved. Medication Orders: PLEASE REFER TO THE DISCHARGE MEDICATION LIST.
[2020-06-16] MEDS: NYSTATIN POWDER 15 GM TOP SCH (10:55)
[2020-06-16] MEDS ORDERED: FLU VACC QS2020-21(6MOS UP)/PF 60 MCG/0.5 ML SYRINGE IM ONE (11:13)
--- NOTE | 2020-06-16 11:54 | PROVIDER PROGRESS NOTE ---
Subjective - Prog Note Date Prog Note Date: 06/16/20 Prog Note Time: 11:53 (seen early this morning) - Subjective Pt reports feeling: No change (feels like herself, aware insurance approval was now finalized her discharge to [facility]) Current Medications - Current Medications Current Medications: Active Medications Acetaminophen (Acetaminophen 325 Mg Tablet) 650 mg PO Q4HR PRN PRN Reason: Pain 1 to 4 Last Admin: 06/15/20 19:19 Dose: 650 mg Documented by: Atorvastatin Calcium (Atorvastatin 40 Mg Tablet) 40 mg PO QPM [facility] Last Admin: 06/15/20 21:47 Dose: 40 mg Documented by: Baclofen (Baclofen 10 Mg Tablet) 10 mg PO QID [facility] Last Admin: 06/16/20 09:09 Dose: 10 mg Documented by: Clopidogrel Bisulfate (Clopidogrel 75 Mg Tablet) 75 mg PO DAILY [facility] Last Admin: 06/16/20 09:09 Dose: 75 mg Documented by: Heparin Sodium (Porcine) (Heparin 5,000 Unit/Ml Vial) 5,000 unit SUBQ BID [facility] Last Admin: 06/16/20 09:10 Dose: 5,000 unit Documented by: Levetiracetam (Levetiracetam 250 Mg Tablet) 500 mg PO BID [facility] Last Admin: 06/16/20 09:09 Dose: 500 mg Documented by: Levothyroxine Sodium (Levothyroxine 25 Mcg Tablet) 50 mcg PO QDAC [facility] Last Admin: 06/16/20 06:13 Dose: 50 mcg Documented by: Mineral Oil (Min Oil/Dimethicon/Coconut Oil 92 Gm Tube) 1 applic TOP PRN PRN PRN Reason: Skin Care Last Admin: 06/12/20 04:47 Dose: 1 applic Documented by: Nystatin (Nystatin Powder 15 Gm) 1 applic TOP BID [facility] Last Admin: 06/16/20 10:55 Dose: Not Given Documented by: Ondansetron HCl (Ondansetron Odt 4 Mg Tablet) 4 mg TL Q6HR PRN PRN Reason: Nausea / Vomiting Ondansetron HCl (Ondansetron 4 Mg/2 Ml Vial) 4 mg IVP Q6HR PRN PRN Reason: Nausea / Vomiting Oxymetazoline HCl (Oxymetazoline Hcl 100 Sprays Bottle) 2 sprays WILLIE BID PRN PRN Reason: Nasal Congestion Last Admin: 06/15/20 21:54 Dose: 1 spr Documented by: Polyethylene Glycol (Polyethylene Glycol 3350 17 Gm Packet) 17 gm PO DAILY [facility] Last Admin: 06/16/20 09:10 Dose: 17 gm Documented by: Sodium Chloride (Sodium Chloride Flush 0.9% 10 Ml Syringe) 10 ml IVP PRN PRN PRN Reason: NEEDED PER PROVIDER ORDERS Last Admin: 06/13/20 19:17 Dose: 10 ml Documented by: Sodium Chloride (Sodium Chloride Flush 0.9% 10 Ml Syringe) 10 ml IVP 0100,09 00,1700 [facility] Last Admin: 06/16/20 11:30 Dose: 10 ml Documented by: Cholestyramine [Questran] 4 gm PO QPM 04/28/13 Baclofen 10 mg PO QID 07/18/19 Clopidogrel [Plavix] 75 mg PO DAILY 07/18/19 Glucos Sul 2Kcl/MSM/Chond/C/Mn [Glucosamine Chondroitin Cap] 1 cap PO DAILY 07/18/19 Levothyroxine Sodium 50 mcg PO DAILY 07/18/19 Multivitamin/Iron/Folic Acid [Centrum Women Tablet] 1 ea ORAL DAILY 07/18/19 Atorvastatin [Lipitor] 40 mg PO QPM 02/10/20 Methylphenidate HCl [Methylphenidate ER] 40 mg PO DAILY 02/10/20 levETIRAcetam [Roweepra] 500 mg PO BID 02/10/20 Objective - Vital Signs/Intake & Output Reviewed Vital Signs: Yes Intake & Output: Intake & Output 06/13/20 06/14/20 06/15/20 06/16/20 23:59 23:59 23:59 23:59 Intake Total 4420.5 1095 1460 240 Output Total 3845 400 650 Balance 575.5 695 810 240 - Objective General Appearance: positive: Other (sound asleep when I went to see her , aroused w/ name calling and arm touch) Eyes Bilateral: positive: Normal inspection, PERRL, EOMI Respiratory: positive: Chest non-tender, No respiratory distress, Breath sounds nml Cardiovascular: positive: Regular rate & rhythm, No murmur Abdomen: positive: Nml bowel sounds, No distention. negative: Tenderness Skin: positive: Warm, Dry Extremities: negative: Pedal edema Neurologic/Psychiatric: positive: Oriented x3, Mood/affect nml, Other (no focal weakness) - Lab Results Fish Bones: 06/15/20 04:03 06/15/20 04:03 Other Labs: Lab Results x24hrs 06/15/20 Range/Units 11:12 Nasal Adenovirus (PCR) NOT DETECTED Nasal B. parapertussis DNA (PCR) NOT DETECTED Nasal Coronavir 229E PCR NOT DETECTED Nasal Coronavir HKU1 PCR NOT DETECTED Nasal Coronavir NL63 PCR NOT DETECTED Nasal Coronavir OC43 PCR NOT DETECTED Nasal Enterovir/Rhinovir PCR NOT DETECTED Nasal Influenza B PCR NOT DETECTED Nasal Influenza A PCR NOT DETECTED Nasal Parainfluen 1 PCR NOT DETECTED Nasal Parainfluen 2 PCR NOT DETECTED Nasal Parainfluen 3 PCR NOT DETECTED Nasal Parainfluen 4 PCR NOT DETECTED Nasal RSV (PCR) NOT DETECTED Nasal B.pertussis DNA PCR NOT DETECTED Nasal C.pneumoniae (PCR) NOT DETECTED Willie Human Metapneumo PCR NOT DETECTED Nasal M.pneumoniae (PCR) NOT DETECTED Nasal SARS-CoV-2 (PCR) NOT DETECTED Assessment/Plan - Problem List (1) Acute metabolic encephalopathy Impression: See full discharge summary, d/c plan from 06/15. Mentation at baseline, delerium most c/w drug drug interaction and volume depletion, no infection or other cause was identified. Good candidate for SNF and agreeable. Being discharged to [facility] today Other medical problems stable as noted
[2020-06-16 14:44] VITALS: BP 112/68
== END 2020-06-16 15:35 | DRG 947 ==
LOC: EDUNIT# → ED 20:49 → MS2 22:16
PROVIDERS: ADMIT Internal Medicine; ATTEND Nurse Practitioner
DX: N39.0 Urinary tract infection, site not specified (principal); R79.89 Other specified abnormal findings of blood chemistry; R41.0 Disorientation, unspecified; L89.152 Pressure ulcer of sacral region, stage 2; G93.41 Metabolic encephalopathy; S06.9X9A Unspecified intracranial injury with loss of consciousness of unspecified duration, initial encounter; Z20.822 Contact with and (suspected) exposure to COVID-19; N17.9 Acute kidney failure, unspecified; M62.82 Rhabdomyolysis; G35 Multiple sclerosis; E03.9 Hypothyroidism, unspecified; G40.909 Epilepsy, unspecified, not intractable, without status epilepticus; E86.9 Volume depletion, unspecified; Z91.14 Patient's other noncompliance with medication regimen; G89.4 Chronic pain syndrome; I25.2 Old myocardial infarction; Z79.899 Other long term (current) drug therapy; I10 Essential (primary) hypertension; F17.200 Nicotine dependence, unspecified, uncomplicated; E86.0 Dehydration; R74.8 Abnormal levels of other serum enzymes; D72.829 Elevated white blood cell count, unspecified; W18.39XA Other fall on same level, initial encounter; Y92.009 Unspecified place in unspecified non-institutional (private) residence as the place of occurrence of the external cause; M54.9 Dorsalgia, unspecified; R41.3 Other amnesia; Z79.01 Long term (current) use of anticoagulants
CPT/HCPCS: 36415; 51701; 70496; 70498; 70551; 80048; 80053; 81001; 82550; 83735; 84100; 84443; 84484; 85025; 85610; 87040; 87086; 87631; 93005; 97116; 97162; 97165; 97535; 99285; A6250; A9270; J2185; J7120; Q9967; 0202U; 80306; 80320; 81003; 90686

== ENCOUNTER 2020-12-09 16:19 | Outpatient (CLI) | payer MEDICARE, MEDICAID | END 2020-12-09 16:20 | disposition critical access hospital (66) | LOC: EMS 16:19 | DX: R46.4 Slowness and poor responsiveness (principal); R41.82 Altered mental status, unspecified | CPT/HCPCS: A0425; A0427 ==

== ENCOUNTER 2020-12-09 16:40 | Observation (INO) | payer MEDICARE, MEDICAID ==
[2020-12-09] MEDS ORDERED: ELECTROLYTE-A SOLUTION 1,000 ML IV ONE (16:53)
[2020-12-09] MEDS ORDERED: ELECTROLYTE-A SOLUTION 1,000 ML IV STA (16:53)
--- NOTE | 2020-12-09 16:55 | ED Physician Documentation ---
History of Present Illness - Stated complaint Stated Complaint: FOUND DOWN - Chief complaint Chief Complaint: Neuro - History obtained from History obtained from: EMS - Additonal information Additional information: Patient is a 65-year-old female who presents to the emergency department via EMS for altered mental status. She lives at home by herself. Has neighbors that normally see her every day. Has a history of multiple sclerosis, recurrent UTIs. She apparently was last seen yesterday, neighbors did not see her today and called 911 for a welfare check. She was found on the ground in her b athroom. Cool to the touch per EMS. No external signs of trauma per EMS. Patient is oriented to name only. No other history available at this time. Review of Systems Unable to obtain: [facility] PAST MEDICAL HISTORY - Past Medical History Cardiovascular: Hypertension, CO Respiratory: None Neuro: None, Multiple sclerosis Endocrine/Autoimmune: None GI: None TUBE CUTTER: None : Chronic bladder infection HEENT: None Psych: Depression Musculoskeletal: Chronic back pain Derm: Other - Past Surgical History Past Surgical History: Yes Ortho: Spine surgery /TUBE CUTTER: Hysterectomy - Present Medications Home Medications: Ambulatory Orders Medication Instructions Recorded Confirmed Cholestyramine [Questran] 4 gm PO QPM 04/28/13 06/11/20 Baclofen 10 mg PO QID 07/18/19 06/11/20 Clopidogrel [Plavix] 75 mg PO DAILY 07/18/19 06/10/20 Glucos Sul 2Kcl/MSM/Chond/C/Mn 1 cap PO DAILY 07/18/19 06/10/20 [Glucosamine Chondroitin Cap] Levothyroxine Sodium 50 mcg PO DAILY 07/18/19 06/10/20 Multivitamin/Iron/Folic Acid 1 ea ORAL DAILY 07/18/19 06/10/20 [Centrum Women Tablet] Atorvastatin [Lipitor] 40 mg PO QPM 02/10/20 06/11/20 Methylphenidate HCl 40 mg PO DAILY 02/10/20 06/10/20 [Methylphenidate ER] levETIRAcetam [Roweepra] 500 mg PO BID 02/10/20 06/10/20 Acetaminophen [Tylenol] 650 mg PO Q4HR PRN 06/15/20 Metoprolol Succinate [Toprol Xl] 25 mg PO BID #0 06/15/20 06/11/20 Oxymetazoline HCl [Afrin] 2 sprays WILLIE BID PRN bottle 06/15/20 - Allergies Allergies/Adverse Reactions: Allergies Allergy/AdvReac Type Severity Reaction Status Date / Time No Known Drug Allergies Allergy Verified 12/09/20 16:46 - Social History Does the pt smoke?: Yes Smoking Status: Current every day smoker Does the pt drink ETOH?: No Does the pt have substance abuse?: No - Immunizations Immunizations are current?: No - POLST Patient has POLST: No PD ED PE NORMAL - Vitals Vital signs reviewed: Yes - General General: Other (alert, oriented to person only) - HEENT HEENT: Atraumatic, PERRL, Moist mucous membranes - Neck Neck: Supple, no meningeal sign, No bony TTP - Cardiac Cardiac: RRR - Respiratory Respiratory: No respiratory distress, Clear bilaterally - Abdomen Abdomen: Soft, Non tender, Non distended - Back Back: No spinal TTP - Derm Derm: Warm and dry - Extremities Extremities: Other (abrasions to the feet/lower legs bilaterally. ) - Neuro Neuro: Other (alert, oriented to person only) Results - Vitals Vitals: Vital Signs - 24 hr 12/09/20 12/09/20 12/09/20 16:46 17:22 17:52 Temperature 37.1 C 37.1 C Heart Rate 82 90 88 Respiratory 18 18 18 Rate Blood Pressure 143/88 H 132/101 H 130/79 O2 Saturation 100 98 100 12/09/20 12/09/20 18:22 18:30 Temperature 37.4 C 37.4 C Heart Rate 79 88 Respiratory 20 14 Rate Blood Pressure 130/73 147/71 H O2 Saturation 100 98 Oxygen O2 Source Room air - EKG (time done) 1654 Rate: Rate (enter#) (85) Rhythm: NSR [place]: Normal Intervals: RBBB Ischemia: Q waves (II, III,avF) - Labs Labs: Laboratory Tests 12/09/20 12/09/20 12/09/20 16:58 17:47 18:28 WBC 15.0 H RBC 4.64 Hgb 14.2 Hct 43.7 MCV 94.2 MCH 30.6 MCHC 32.5 RDW 14.7 Plt Count 331 MPV 10.6 Neut # (Auto) 11.2 H Lymph # (Auto) 2.5 [place] # (Auto) 1.1 H Eos # (Auto) 0.0 Baso # (Auto) 0.1 Absolute Nucleated RBC 0.00 Nucleated RBC % 0.0 Sodium Potassium Chloride Carbon Dioxide Anion Gap BUN Creatinine Estimated GFR (MDRD) Glucose Lactic Acid Calcium Total Bilirubin AST ALT Alkaline Phosphatase Total Creatine Kinase Total Protein Albumin Globulin Albumin/Globulin Ratio Lipase Urine Color YELLOW Urine Clarity HAZY Urine pH 5.5 Ur Specific [place] 1.025 Urine Protein TRACE Urine Glucose (UA) NEGATIVE Urine Ketones NEGATIVE Urine Occult Blood TRACE-LYSE Urine Nitrite POSITIVE H Urine Bilirubin NEGATIVE Urine Urobilinogen 0.2 (NORMAL) Ur Leukocyte Esterase NEGATIVE Urine RBC 0-5 Urine WBC 4-5 Ur Squamous Epith Cells RARE Squamous Urine Bacteria Many H Urine Mucus Few Strands Ur Microscopic Review INDICATED Urine Culture Comments INDICATED Nasal Adenovirus (PCR) NOT DETECTED Nasal B. parapertussis DNA (PCR) NOT DETECTED Nasal Coronavir 229E PCR NOT DETECTED Nasal Coronavir HKU1 PCR NOT DETECTED Nasal Coronavir NL63 PCR NOT DETECTED Nasal Coronavir OC43 PCR NOT DETECTED Nasal Enterovir/Rhinovir PCR NOT DETECTED Nasal Influenza B PCR NOT DETECTED Nasal Influenza A PCR NOT DETECTED Nasal Parainfluen 1 PCR NOT DETECTED Nasal Parainfluen 2 PCR NOT DETECTED Nasal Parainfluen 3 PCR NOT DETECTED Nasal Parainfluen 4 PCR NOT DETECTED Nasal RSV (PCR) NOT DETECTED Nasal B.pertussis DNA PCR NOT DETECTED Nasal C.pneumoniae (PCR) NOT DETECTED Willie Human Metapneumo PCR NOT DETECTED Nasal M.pneumoniae (PCR) NOT DETECTED Nasal SARS-CoV-2 (PCR) NOT DETECTED Salicylates Urine Opiates Screen NEGATIVE Ur Oxycodone Screen NEGATIVE Urine Methadone Screen NEGATIVE Ur Propoxyphene Screen NEGATIVE Acetaminophen Ur Barbiturates Screen NEGATIVE Ur Tricyclics Screen NEGATIVE Ur Phencyclidine Scrn NEGATIVE Ur Amphetamine Screen NEGATIVE U Methamphetamines Scrn NEGATIVE U Benzodiazepines Scrn NEGATIVE Urine Cocaine Screen NEGATIVE U Cannabinoids Screen NEGATIVE Ethyl Alcohol 12/09/20 12/09/20 18:28 18:28 WBC RBC Hgb Hct MCV MCH MCHC RDW Plt Count MPV Neut # (Auto) Lymph # (Auto) [place] # (Auto) Eos # (Auto) Baso # (Auto) Absolute Nucleated RBC Nucleated RBC % Sodium 145 Potassium 4.4 Chloride 103 Carbon Dioxide 27 Anion Gap 15.0 H BUN 29 H Creatinine 1.2 H Estimated GFR (MDRD) 45 L Glucose 124 H Lactic Acid 2.6 H Calcium 9.4 Total Bilirubin 0.8 AST 28 ALT 19 Alkaline Phosphatase 92 Total Creatine Kinase 856 H Total Protein 7.8 Albumin 4.2 Globulin 3.6 Albumin/Globulin Ratio 1.2 Lipase 28 Urine Color Urine Clarity Urine pH Ur Specific [place] Urine Protein Urine Glucose (UA) Urine Ketones Urine Occult Blood Urine Nitrite Urine Bilirubin Urine Urobilinogen Ur Leukocyte Esterase Urine RBC Urine WBC Ur Squamous Epith Cells Urine Bacteria Urine Mucus Ur Microscopic Review Urine Culture Comments Nasal Adenovirus (PCR) Nasal B. parapertussis DNA (PCR) Nasal Coronavir 229E PCR Nasal Coronavir HKU1 PCR Nasal Coronavir NL63 PCR Nasal Coronavir OC43 PCR Nasal Enterovir/Rhinovir PCR Nasal Influenza B PCR Nasal Influenza A PCR Nasal Parainfluen 1 PCR Nasal Parainfluen 2 PCR Nasal Parainfluen 3 PCR Nasal Parainfluen 4 PCR Nasal RSV (PCR) Nasal B.pertussis DNA PCR Nasal C.pneumoniae (PCR) Willie Human Metapneumo PCR Nasal M.pneumoniae (PCR) Nasal SARS-CoV-2 (PCR) Salicylates < 6.0 Urine Opiates Screen Ur Oxycodone Screen Urine Methadone Screen Ur Propoxyphene Screen Acetaminophen < 10 L Ur Barbiturates Screen Ur Tricyclics Screen Ur Phencyclidine Scrn Ur Amphetamine Screen U Methamphetamines Scrn U Benzodiazepines Scrn Urine Cocaine Screen U Cannabinoids Screen Ethyl Alcohol < 5.0 - Rads (name of study) cxr Radiology: Final report received, EMP read contemporaneously, See rad report ct head Radiology: Final report received, EMP read contemporaneously, See rad report ct neck Radiology: Final report received, EMP read contemporaneously, See rad report PD MEDICAL DECISION MAKING - ED course Complexity details: reviewed old records, reviewed results, re-evaluated patient, considered differential, d/w patient, d/w clinical documentation consultant ED course: No acute findings on CT of the head, neck and chest x-ray. Does have a UTI. Does appear to be septic. Given 2 L of IV fluid, combined with the fluid she received with EMS to equal over 30 mL/kg. Blood cultures drawn. There was a delay in lab work secondary to difficulty of blood draw. I did perform the blood draw under ultrasound guidance. Discussed the case with Dr. Salmeron, hospitalist who accepts. This document was made in part using voice recognition software. While efforts are made to proofread this document, sound alike and grammatical errors may occur. Departure - Departure Disposition: 66 [facility] DC/Xfer Clinical Impression: Dehydration, Acute kidney injury, Elevated CK Altered mental status Qualifiers: Altered mental status type: disorientation Qualified Code(s): R41.0 - Disorientation, unspecified UTI (urinary tract infection) Qualifiers: Urinary tract infection type: acute cystitis Hematuria presence: without hematuria Qualified Code(s): N30.00 - Acute cystitis without hematuria Sepsis Qualifiers: Sepsis type: sepsis due to unspecified organism Sepsis acute organ dysfunction status: without acute organ dysfunction Qualified Code(s): A41.9 - Sepsis, unspecified organism Condition: Stable
--- NOTE | 2020-12-09 17:42 | CT Report ---
PROCEDURE: HEAD WO INDICATIONS: altered, found down TECHNIQUE: Noncontrast 4.5 mm thick angled axial sections acquired from the foramen magnum to the vertex. For r adiation dose reduction, the following was used: automated exposure control, adjustment of mA and/or kV according to patient size. COMPARISON: Prior head CT, 06/10/2020, 02/09/2020, 916. Correlation is made with the accompanying cervi carrie spine CT. Correlation is also made with prior brain MRI, 06/13/2020. FINDINGS: Image quality: Excellent. CSF spaces: Basal cisterns are patent. No extra-axial fluid collections. Ventricles are normal in size and shape. Brain: No midline shift. No intracranial masses or hemorrhage. Zavaleta-white matter interface is norm al. Skull and face: Calvarium and visualized facial bones are intact, without suspicious lesions. Sinuses: Visualized sinuses and mastoids are clear. IMPRESSION: No intracranial hemorrhage is seen. No significant intracranial abnormality is seen. No significant change compared to the prior head CT. Reviewed by: Sony Montenegro MD on 12/09/2020 4:41 PM AKDT Approved by: Sony Montenegro MD on 12/09/2020 4:41 PM AKDT Station ID: [id number]
--- NOTE | 2020-12-09 17:44 | CT Report ---
PROCEDURE: CERVICAL SPINE WO INDICATIONS: altered, found down TECHNIQUE: Noncontrast 3 mm thick sections acquired from the skull base to the T4 level. Sagittal and coronal r eformats were then constructed. For radiation dose reduction, the following was used: automated exp osure control, adjustment of mA and/or kV according to patient size. COMPARISON: Prior cervical spine CT, 01/09/2015. Correlation is also made with prior neck CT angiogram , 02/09/2020 Correlation is made with the accompanying head CT, 12/09/2020. FINDINGS: Image quality: Excellent. Bones: No fractures or dislocations. Visualized superior ribs are intact. Cervical spine degenerative changes are seen, with moderate disc space narrowing at C5-C6, C6-C7, and C7-T1. Associated endplate irregularity and sclerosis can be seen at these levels. Milder degenerati ve changes are seen elsewhere. Soft tissues: Prevertebral soft tissues are normal in thickness. No paravertebral hematomas. No ap ical pneumothoraces. IMPRESSION: Negative for fracture. Focal lower cervical spine degenerative changes are seen. Reviewed by: Sony Montenegro MD on 12/09/2020 4:43 PM TARI Approved by: Sony Montenegro MD on 12/09/2020 4:43 PM AKDT Station ID: [id number]
--- NOTE | 2020-12-09 17:45 | XRAY Report ---
PROCEDURE: Chest 1 View X-Ray INDICATIONS: chest pain TECHNIQUE: One view of the chest was acquired. COMPARISON: Prior chest x-rays, 02/09/2020, 05/12/2018, 01/24/2015 Correlation is made with the accompany ing head CT and cervical spine CT, 12/09/2020. FINDINGS: Surgical changes and devices: None. Lungs and pleura: No pleural effusions or pneumothorax. Lungs are clear. Mediastinum: Mediastinal contours appear normal. Heart size is normal. Bones and chest wall: No suspicious bony lesions. Mild, age-appropriate degenerative changes are not ed. Overlying soft tissues appear unremarkable. IMPRESSION: Frontal chest study within normal limits. Reviewed by: Sony Montenegro MD on 12/09/2020 4:44 PM AKDT Approved by: Sony Montenegro MD on 12/09/2020 4:44 PM AKDT Station ID: [id number]
[2020-12-09 17:56] LABS: CORONAVIRUS 229E-RESP PCR NOT DETECTED; CORONAVIRUS HKU1-RESP PCR NOT DETECTED; CORONAVIRUS NL63-RESP PCR NOT DETECTED; CORONAVIRUS OC43-RESP PCR NOT DETECTED; HUMAN METAPNEUMOVIRUS NOT DETECTED; RHINOVIRUS/ENTEROVIRUS NOT DETECTED; SARS-CoV-2 -RESP PCR PANEL NOT DETECTED
[2020-12-09 17:57] LABS: B. PARAPERTUSSIS- RESP PCR PAN NOT DETECTED; B. PERTUSSIS- RESP PCR PANEL NOT DETECTED; C. PNEUMONIAE- RESP PCR PANEL NOT DETECTED; INFLUENZA A- RESP PCR PANEL NOT DETECTED; INFLUENZA B - RESP PCR PANEL NOT DETECTED; M. PNEUMONIAE- RESP PCR PANEL NOT DETECTED; PARAINFLUENZA VIRUS 1 NOT DETECTED; PARAINFLUENZA VIRUS 2 NOT DETECTED; PARAINFLUENZA VIRUS 3 NOT DETECTED; PARAINFLUENZA VIRUS 4 NOT DETECTED; RSV- RESP PCR PANEL NOT DETECTED
[2020-12-09 17:58] LABS: MUDS CUTOFF CONCENTRATIONS CUTOFF CONC BELOW:
[2020-12-09 18:04] LABS: BILIRUBIN,URINE NEGATIVE (NEGATIVE); GLUCOSE, URINE (UA) NEGATIVE (NEGATIVE); KETONES,URINE (UA) NEGATIVE (NEGATIVE); LEUKOCYTE ESTERASE, URINE NEGATIVE (NEGATIVE); NITRITE,URINE POSITIVE (NEGATIVE); OCCULT BLOOD,URINE TRACE-LYSE (NEGATIVE); PH,URINE 5.5 PH (5.0-7.5); PROTEIN,URINE TRACE mg/dL (NEGATIVE); UROBILINOGEN,URINE 0.2 (NORMAL) E.U./dL (NORMAL)
[2020-12-09 18:13] LABS: CLARITY,URINE HAZY (CLEAR)
[2020-12-09 18:18] LABS: AMPHETAMINE SCREEN,URINE NEGATIVE (NEGATIVE); BARBITURATE SCREEN,UR NEGATIVE (NEGATIVE); BENZODIAZEPINES SCREEN, URINE NEGATIVE (NEGATIVE); COCAINE SCREEN URINE NEGATIVE (NEGATIVE); METHADONE SCREEN, URINE NEGATIVE (NEGATIVE); METHAMPHETAMINES SCREEN, URINE NEGATIVE (NEGATIVE); OPIATE SCREEN, URINE NEGATIVE (NEGATIVE); OXYCODONE SCREEN, URINE NEGATIVE (NEGATIVE); PROPOXYPHENE SCREEN, URINE NEGATIVE (NEGATIVE); THC CANNABINOID SCREEN, URINE NEGATIVE (NEGATIVE); TRICYCLIC ANTIDEPRESSANT,URINE NEGATIVE (NEGATIVE)
[2020-12-09 18:22] LABS: RBC,URINE 0-5 /HPF (0-5); SQUAMOUS EPITHELIAL CELL,UR RARE Squamous (<= Few)
[2020-12-09 18:23] LABS: BACTERIA,URINE Many /HPF (None Seen); MUCUS,URINE Few Strands
[2020-12-09 18:32] LABS: BASOPHILS # (AUTO) 0.1 10^3/uL (0.0-0.1); BASOPHILS % (AUTO) 0.6 %; EOSINOPHILS % (AUTO) 0.1 %; HCT - HEMATOCRIT 43.7 % (37.0-47.0); HGB - HEMOGLOBIN 14.2 g/dL (12.0-16.0); LYMPHOCYTES # (AUTO) 2.5 10^3/uL (1.5-3.5); LYMPHOCYTES % (AUTO) 16.8 %; MEAN CORPUSCULAR HEMOGLOBIN 30.6 pg (27.0-31.0); MEAN CORPUSCULAR HGB CONC 32.5 g/dL (32.0-36.0); MEAN CORPUSCULAR VOLUME 94.2 fL (81.0-99.0); MEAN PLATELET VOLUME 10.6 fL (7.9-10.8); MONOCYTES # (AUTO) 1.1 10^3/uL (0.0-1.0); MONOCYTES % (AUTO) 7.4 %; NEUTROPHILS # (AUTO) 11.2 10^3/uL (1.5-6.6); NEUTROPHILS % (AUTO) 74.8 %; PLT - PLATELET COUNT 331 10^3/uL (130-450); RED BLOOD COUNT 4.64 10^6/uL (4.20-5.40); RED CELL DISTRIBUTION WIDTH 14.7 % (12.0-15.0)
[2020-12-09] MEDS ORDERED: cefTRIAXone 1 GM VIAL IVP STA (18:34)
[2020-12-09 18:50] LABS: ACETAMINOPHEN < 10 ug/mL (10-30); ALBUMIN 4.2 g/dL (3.2-5.5); ALBUMIN/GLOBULIN RATIO 1.2 (1.0-2.2); ALKALINE PHOSPHATASE 92 IU/L (42-121); ALT ALANINE AMINOTRANSFERASE 19 IU/L (10-60); AST ASPARTATE AMINOTRANSFERASE 28 IU/L (10-42); BILIRUBIN,TOTAL 0.8 mg/dL (0.2-1.0); BUN - BLOOD UREA NITROGEN 29 mg/dL (6-20); CALCIUM 9.4 mg/dL (8.5-10.3); CARBON DIOXIDE - CO2 27 mmol/L (21-32); CHLORIDE 103 mmol/L (101-111); CK- CREATINE KINASE 856 IU/L (22-269); CREATININE 1.2 mg/dL (0.4-1.0); ETOH - ETHANOL < 5.0 mg/dL; GFR - MDRD 45 (>89); GLUCOSE 124 mg/dL (70-100); LIPASE 28 U/L (22-51); POTASSIUM 4.4 mmol/L (3.5-5.0); SALICYLATE < 6.0 mg/dL; SODIUM 145 mmol/L (135-145); TOTAL PROTEIN 7.8 g/dL (6.7-8.2)
[2020-12-09 19:03] LABS: THYROID STIMULATING HORMONE 0.82 uIU/mL (0.34-5.60)
[2020-12-09 19:05] LABS: FREE T4 (FREE THYROXINE) 0.73 ng/dL (0.58-1.64)
[2020-12-09] MEDS ORDERED: ONDANSETRON ODT 4 MG TABLET TL PRN (19:10)
[2020-12-09] MEDS ORDERED: SODIUM CHLORIDE FLUSH 0.9% 10 ML SYRINGE IVP PRN (19:10)
--- NOTE | 2020-12-09 20:09 | HISTORY & PHYSICAL EXAMINATION ---
Chief Complaint - Chief Complaint Chief Complaint: found down in home History of Present Illness - Admitted From Admitted From:: home - History Obtained From Records Reviewed: [facility] History obtained from: patient and Dr. Anthony Exam Limitations: none - History of Present Illness HPI Comment/Other: This is a unfortunate female who lives on her own and has multiple sclerosis. She also has a history of chronic bladder infections, chronic back pain, chronic opioid dependency, depression and hypothyroidism. She has a history of multiple admissions to our hospital with metabolic encephalopathy. Sometimes due to UTIs. Sometimes due to incorrect use of medications. She usually presents after being found down by neighbors or familyand is brought to the hospital. The person to notify when she is in the hospital is one of her nieces. Her name is Latisha Plascencia. Her phone number is [phone]. Tamiko cavazos describes her aunt is a very private person. She does not like to discuss her health with family and is very cautious even with her medical providers. The last time the patient was seen by family was around her birthday which was [birth year]. She seemed normal at that point in time. Today neighbors called EMS. She was last seen at 8:00 last night. Today when she did not answer at her door, EMS was called and they found her on the floor in her bathroom.. She was alert to herself. Could not follow commands. Skin was pale, cool. Respirations even and unlabored. The last time she was brought in in June she tried to get up out of a chair in her apartment. Somehow her walker got caught underneath the table and mixed up with a chair and she landed on the floor and laid there for a day or 2 until her neighbors called. Right now the patient is unable to tell me what happened. She is evaluated by Dr. Chow. Temperature was 37.1. Heart rate 82. Blood pressure 143/88. Respirations 18. 100% on room air. She was alert and oriented to person only. She had an atraumatic skull. Moist mucous membranes. A benign respiratory, cardiac and abdominal exam. She had abrasions to her lower legs bilaterally. No focal deficits. Baseline creatinine is 0.8. She was 1.2. BUN was elevated at 29. Random glucose is 124. In the past A1c's have all been below 6%. Lactic acid is 2.6. CPK is 856. High-sensitivity troponin is 15.8. TSH and free T4 are normal. White cell count is elevated at 15,000. She is not anemic. Urinalysis is positive for nitrites. Negative for leukocyte Estrace. 0-5 red cells. 4-5 white cells. Rare squamous epithelial cells. Many bacteria. Culture is indicated. In the past this patient has grown out ESBL E. coli. We also feel that she is chronically colonized. Head CT is without any acute changes of stroke or hemorrhage. No skull fractures. Cervical spine CT has lower cervical spine degenerative changes but no fractures. Chest x-ray is within normal limits. The patient is now admitted with metabolic encephalopathy, lactic acidosis most likely from dehydration, and an equivocal finding of a UTI. This is very similar to her previous presentations. History - Past Medical History Cardiovascular: reports: Hypertension, Coronary artery disease, VA (03/2018) Respiratory: reports: None Neuro: reports: Multiple sclerosis (? seizures, she is on Keppra) Endocrine/Autoimmune: reports: Other (occ glucose elevation but A1c below 6% and no tx for DM) GI: reports: None ENVIRONMENTAL HEALTH AND SAFETY INTERN: reports: Other () : reports: Chronic bladder infection HEENT: reports: None Psych: reports: Depression Musculoskeletal: reports: Chronic back pain Derm: reports: Other MRSA Hx?: No Other Past Medical History: History of chronic opioid dependence in the past. Also occasional opioid abuse.Also has a history of ADHD. - Past Surgical History Ortho: reports: Spine surgery /ENVIRONMENTAL HEALTH AND SAFETY INTERN: reports: Hysterectomy - Family & Social History Family History Comment/Other: Obtained from her niece Latisha who is the person to notify when she is in the hospital. The patient has been adopted by a step father and he is still alive in his 80s. Her father of bone cancer when she was a very little girl. Mom is and of heart disease but had lung cancer before she . 1 brother of the same bone cancer that his father of. 1 brother is alive but has A. fib. No sisters. No children. Living arrangement: At home Living Situation: Alone Social History Notes: She is a smoker. No history of alcohol abuse. In the she did quite a bit of recreational substances, predominantly LSD. That did not go forward past the . Her most recent episodes of substance abuse has been with prescription drugs. She is no longer on any prescription opioids. - Substance History Use: Uses substance without health or social issues: Tobacco Abuse: Recurrent use of substance despite neg consequences: NONE Dependence: Experiences withdrawal or developed tolerances: NONE - POLST Patient has POLST: No POLST Status: Full Code Meds/Allgy - Home Medications Home Medications: Ambulatory Orders Medication Instructions Recorded Confirmed Cholestyramine [Questran] 4 gm PO QPM 04/28/13 12/09/20 Baclofen 10 mg PO QID 07/18/19 12/09/20 Clopidogrel [Plavix] 75 mg PO DAILY 07/18/19 12/09/20 Glucos Sul 2Kcl/MSM/Chond/C/Mn 1 cap PO DAILY 07/18/19 12/09/20 [Glucosamine Chondroitin Cap] Levothyroxine Sodium 50 mcg PO DAILY 07/18/19 12/09/20 Multivitamin/Iron/Folic Acid 1 ea ORAL DAILY 07/18/19 12/09/20 [Centrum Women Tablet] Atorvastatin [Lipitor] 40 mg PO QPM 02/10/20 12/09/20 Methylphenidate HCl 40 mg PO DAILY 02/10/20 12/09/20 [Methylphenidate ER] levETIRAcetam [Roweepra] 500 mg PO BID 02/10/20 12/09/20 Acetaminophen [Tylenol] 650 mg PO Q4HR PRN 06/15/20 12/09/20 Metoprolol Succinate [Toprol Xl] 25 mg PO BID #0 06/15/20 12/09/20 Oxymetazoline HCl [Afrin] 2 sprays WILLIE BID PRN bottle 06/15/20 12/09/20 Calcium Carbonate/Vitamin D3 1 each PO DAILY 12/09/20 12/09/20 [Calcium 500Mg-Vit D3 15Mcg Tab] Furosemide [Lasix] 20 mg PO DAILY 12/09/20 12/09/20 [place]-3/Dha/Epa/Fish Oil [Fish Oil 1 cap PO DAILY 12/09/20 12/09/20 1,000 mg Softgel] - Allergies Allergies/Adverse Reactions: Allergies Allergy/AdvReac Type Severity Reaction Status Date / Time No Known Drug Allergies Allergy Verified 12/09/20 16:46 Review of Systems - All Other Systems All Other Systems: reports: Other (The patient is unable to have meaningful conversation. Her responses are "yeah, no, or I do not know". She is confused. Unable to follow commands consistently.) Prior Level of Functionality: Review of the medical record in [facility] and per the patient statements and her niece, she uses a walker in her home. Is supposedly self-sufficient with regards to dressing herself, feeding herself, paying her bills. Niece does endorse that she uses the walker. Exam - Vital Signs Reviewed Vital Signs: Yes Vital Signs: Vital Signs x48h Temp Pulse Resp BP Pulse Ox 12/09/20 19:48 37.2 C 70 14 179/91 H 100 12/09/20 19:00 151/122 H 12/09/20 18:47 37.4 C 76 14 151/122 H 98 12/09/20 18:30 37.4 C 88 14 147/71 H 98 12/09/20 18:22 37.4 C 79 20 130/73 100 12/09/20 17:52 37.1 C 88 18 130/79 100 12/09/20 17:22 90 18 132/101 H 98 12/09/20 16:46 37.1 C 82 18 143/88 H 100 - Physical Exam General Appearance: positive: No acute distress, Alert, Other (Laying comfortably in bed, no respiratory distress, eyes follow me and she does answer yes/no questions but not always consistently.) Eyes Bilateral: positive: PERRL, EOMI ENT: positive: Dry mucous membranes, Other (Lips are dry and cracked. Tongue is dry.) Neck: positive: No JVD. negative: Stiff neck Respiratory: positive: No respiratory distress. negative: Wheezes, Rales, Rhonchi Cardiovascular: positive: Regular rate & rhythm, Systolic murmur. negative: Gallop/S4, Friction rub Peripheral Pulses: positive: Other (faint DP pulses) Abdomen: positive: Non-tender (she tells me palpation does not hurt), No organomegaly, Nml bowel sounds, No distention Skin: positive: No rash, Warm (except for feet which are quite cold.), Dry, Pallor Extremities: positive: Full ROM (on passive ROM, and she will move her arms and legs at my request), No pedal edema Neurologic/Psychiatric: positive: CN's nml (2-12), Motor nml, Disoriented to person, Disoriented to place, Disoriented to time, Slurred/abnml speech (She responds to my questions inconsistently. I asked her if she knows where she is and she will answer yes. I asked her to then tell me where that is and she says no. Responses are all yes, no, or I do not know. There is no sentence structure. Occasionally she will follow two-step commands. Bu) Conclusion/Plan - Problem List (1) Acute metabolic encephalopathy Conclusion/Plan: This will be her fifth visit for acute metabolic encephalopathy. July 2014, January 2015, February 2020, and most recently June 2020. The antecedent history is the same. She is found down by neighbors or family. Unknown length of time that she is down. In the emergency room she was evaluated and found to be encephalopathic, plus/minus urinary tract infection, plus/minus possible reaction to meds, and dehydrated with acute kidney injury. This presentation is very similar to all of those things. At this time I am attributing her encephalopathy to dehydration, mild rhabdo. I am not quite convinced she has a urinary tract infection yet.What I am not understanding is why she is found down. Previous arguments and emergency room visits states that this patient turns a corner when treated with antibiotics and IV fluids. Cultures in the past of been positive. But with the last admission there is no positive urinary cultures and she was not treated with antibiotics beyond admission. Plan: Observation status. This is because in the past she has sometimes turned the corner over 24 hours and can go home. (2) Dehydration Conclusion/Plan: With acute kidney injury. Physical examination shows signs of dehydration with dry cracked lips, a dry tongue. Her creatinine is above normal. Plan: IV hydration Recheck labs in the morning Encourage p.o. intake with a normal diet (3) Abnormal urinalysis Conclusion/Plan: But not necessarily UTI. She has squamous cells in her urine. This patient may be colonized with bacteriuria. White cell count may be due to demargination from dehydration and not true infection. Plan: She received Rocephin in the emergency room. At this time I will hold off on continuing antibiotics. Reevaluate tomorrow morning. However, if tonight she develops fever or higher white cell count, will resume Rocephin. (4) Elevated troponin Conclusion/Plan: In a patient has a previous history of an VA somewhere in March 2018. She was not hospitalized here. Is reference in one of her emergency room visits after that time. We have no records from that hospitalization. Is only in her history. Current EKG has sinus rhythm with a right bundle branch block. She has Q waves in 2 3 and aVF. Compatible with an old inferior wall VA.She is a little Plavix, Lipitor, and a beta-briseida. If she had had a previous stent the Plavix would have been stopped by now. Plan: Recheck troponin now and tomorrow morning for trending Consider getting old records from 2018 once she is more alert and oriented to confirm that history.She tells me that Dr. Haleme her [facility] care provider and then a few sentences later says he is not. And tells me that she does not know who her primary care provider is now. (5) Multiple sclerosis, primary chronic progressive Conclusion/Plan: This is been a diagnosis in her history in the electronic medical record. She is not on any medication for multiple sclerosis. She tells me that she does see a neurologist when I asked her if she sees 1. Her answer is yes. And must like all of her other answers, she then tells me "I do not know" when I ask for h is/her name. Identically's is impacting her current hospitalization. But for continuity sake it might be who have us to have some type of opinion from her neurologist documented in the medical record with regards to prognosis, previous treatment. (6) Elevated CK Conclusion/Plan: Most likely due to being on the ground. Unknown duration of time. This may be mild rhabdomyolysis resulting in acute kidney injury or just simple dehydration resulting in acute kidney injury. Will repeat level tomorrow morning. - Lab Results Lab results reviewed: Yes Fish Bones: 12/09/20 18:28 12/09/20 18:28 - Diagnostic Imaging Results Diagnostic Imaging Results: positive: Final report reviewed Diagnostic Imaging Results Comments: Also has an per history of present illness - EKG Results EKG Interpreted Independently: No EKG Comparison: No prior EKG Core Measures - Anticipated LOS I expect patient to be DC'd or transferred within 96 hours.: Yes - DVT/VTE - Prophylaxis VTE/DVT Device ordered at admit?: Yes
[2020-12-09] MEDS: SODIUM CHLORIDE FLUSH 0.9% 10 ML SYRINGE IVP SCH (20:26)
[2020-12-09] MEDS: LACTATED RINGERS 1,000 ML IV SCH (20:26)
[2020-12-10 05:17] LABS: BASOPHILS # (AUTO) 0.1 10^3/uL (0.0-0.1); BASOPHILS % (AUTO) 0.7 %; EOSINOPHILS # (AUTO) 0.1 10^3/uL (0.0-0.7); EOSINOPHILS % (AUTO) 0.9 %; HCT - HEMATOCRIT 38.6 % (37.0-47.0); HGB - HEMOGLOBIN 12.5 g/dL (12.0-16.0); LYMPHOCYTES # (AUTO) 2.5 10^3/uL (1.5-3.5); LYMPHOCYTES % (AUTO) 24.2 %; MEAN CORPUSCULAR HEMOGLOBIN 30.2 pg (27.0-31.0); MEAN CORPUSCULAR HGB CONC 32.4 g/dL (32.0-36.0); MEAN CORPUSCULAR VOLUME 93.2 fL (81.0-99.0); MEAN PLATELET VOLUME 10.3 fL (7.9-10.8); MONOCYTES # (AUTO) 0.8 10^3/uL (0.0-1.0); MONOCYTES % (AUTO) 8.1 %; NEUTROPHILS # (AUTO) 6.8 10^3/uL (1.5-6.6); NEUTROPHILS % (AUTO) 65.7 %; PLT - PLATELET COUNT 289 10^3/uL (130-450); RED BLOOD COUNT 4.14 10^6/uL (4.20-5.40); RED CELL DISTRIBUTION WIDTH 14.8 % (12.0-15.0); WHITE BLOOD COUNT 10.4 x10^3/uL (4.8-10.8)
[2020-12-10 05:32] LABS: MAGNESIUM 2.3 mg/dL (1.7-2.8); POTASSIUM 3.7 mmol/L (3.5-5.0)
[2020-12-10] MEDS: LACTATED RINGERS 1,000 ML IV SCH (06:37)
--- NOTE | 2020-12-10 08:09 | PHARMACY PROGRESS NOTE ---
- Best Possible Medication History Admit Date and Time: 12/09/201909 Processed by: Nursing Medication History completed: Yes Patient Interview: Completed Secondary Source(s): Pharmacy records, Insurance records As the person ultimately responsible for medication therapy, providers are able to order a medication from an existing home medication list in [facility] via the "Reconcile Routine" prior to Confirmation of that medication by field support specialist. Such practice is discouraged except when the physician, in their clinical judgment, deems that a medical need exists for a medication without regard to previous use.
[2020-12-10] MEDS: ENOXAPARIN 40 MG/0.4 ML SYRINGE SUBQ SCH (08:26)
[2020-12-10] MEDS: ACETAMINOPHEN 325 MG TABLET PO PRN ×2 (08:27→17:08)
[2020-12-10] MEDS: SODIUM CHLORIDE FLUSH 0.9% 10 ML SYRINGE IVP SCH ×2 (08:31→20:12)
--- NOTE | 2020-12-10 08:47 | PROVIDER PROGRESS NOTE ---
Subjective - Prog Note Date Prog Note Date: 12/10/20 - Subjective Subjective: She knows that she is at the hospital but does not know why. She cannot recall the events leading up to her hospitalization. She still feels a little confused. She reports being compliant with her medications. Denies any dysuria, urgency, hematuria. She complains of burning over her back. Current Medications - Current Medications Current Medications: Active Medications Acetaminophen (Acetaminophen 325 Mg Tablet) 650 mg PO Q4HR PRN PRN Reason: Pain 1 to 4 Last Admin: 12/10/20 08:27 Dose: 650 mg Documented by: Atorvastatin Calcium (Atorvastatin 40 Mg Tablet) 40 mg PO QPM [facility]IN Cholestyramine/Sucrose (Cholestyramine 4 Gm Packet) 4 gm PO QPM [facility] Clopidogrel Bisulfate (Clopidogrel 75 Mg Tablet) 75 mg PO DAILY JIN Enoxaparin Sodium (Enoxaparin 40 Mg/0.4 Ml Syringe) 40 mg SUBQ DAILY [facility] Last Admin: 12/10/20 08:26 Dose: 40 mg Documented by: Lactated Ringer's (Lr) 1,000 mls @ 100 mls/hr IV .Q10H [facility] Stop: 12/10/20 15:59 Last Admin: 12/10/20 06:37 Dose: 100 mls/hr Documented by: Non-Formulary Medication (Levetiracetam [Roweepra]) 500 mg PO BID [facility] Non-Formulary Medication (Levothyroxine Sodium [Levothyroxine Sodium]) 50 mcg PO DAILY [facility] Ondansetron HCl (Ondansetron Odt 4 Mg Tablet) 4 mg TL Q6HR PRN PRN Reason: Nausea / Vomiting Sodium Chloride (Sodium Chloride Flush 0.9% 10 Ml Syringe) 10 ml IVP PRN PRN PRN Reason: NEEDED PER PROVIDER ORDERS Last Admin: 12/10/20 00:04 Dose: 10 ml Documented by: Sodium Chloride (Sodium Chloride Flush 0.9% 10 Ml Syringe) 10 ml IVP 0100,0900,1700 [facility] Last Admin: 12/10/20 08:31 Dose: Not Given Documented by: Cholestyramine [Questran] 4 gm PO QPM 04/28/13 Baclofen 10 mg PO QID 07/18/19 Clopidogrel [Plavix] 75 mg PO DAILY 07/18/19 Glucos Sul 2Kcl/MSM/Chond/C/Mn [Glucosamine Chondroitin Cap] 1 cap PO DAILY 07/18/19 Levothyroxine Sodium 50 mcg PO DAILY 07/18/19 Multivitamin/Iron/Folic Acid [Centrum Women Tablet] 1 ea ORAL DAILY 07/18/19 Atorvastatin [Lipitor] 40 mg PO QPM 02/10/20 Methylphenidate HCl [Methylphenidate ER] 40 mg PO DAILY 02/10/20 levETIRAcetam [Roweepra] 500 mg PO BID 02/10/20 Calcium Carbonate/Vitamin D3 [Calcium 500Mg-Vit D3 15Mcg Tab] 1 each PO DAILY 12/09/20 Furosemide [Lasix] 20 mg PO DAILY 12/09/20 [place]-3/Dha/Epa/Fish Oil [Fish Oil 1,000 mg Softgel] 1 cap PO DAILY 12/09/20 Objective - Vital Signs/Intake & Output Reviewed Vital Signs: Yes Vital Signs: Vital Signs x48h Temp Pulse Resp BP Pulse Ox 12/10/20 08:02 36.4 C L 83 16 106/44 L 93 12/10/20 03:56 36.6 C 83 20 100/56 L 94 Intake & Output: Intake & Output 12/07/20 12/08/20 12/09/20 12/10/20 23:59 23:59 23:59 23:59 Intake Total 1603 1000 Output Total 900 350 Balance 703 650 - Objective General Appearance: positive: No acute distress, Alert Eyes Bilateral: positive: Normal inspection, PERRL, Conjunctivae nml ENT: positive: ENT inspection nml Neck: positive: Nml inspection Respiratory: positive: No respiratory distress. negative: Wheezes, Rales Cardiovascular: positive: Regular rate & rhythm. negative: Tachycardia, Systolic murmur Abdomen: positive: Non-tender, No distention. negative: Tenderness Skin: positive: Warm, Dry, Other (There is a raised, dry plaque over her lower back approximately 15 x 10 cm.) Extremities: positive: No pedal edema Neurologic/Psychiatric: positive: Disoriented to time (She thought the year was 2000. She does not know the month. Thought the day was but it is Saturday.), Other (She is moving all four extremities without obvious defic its.). negative: Disoriented to person, Disoriented to place - Lab Results Fish Bones: 12/11/20 05:10 08/08/21 05:10 Other Labs: Lab Results x24hrs 12/10/20 12/10/20 12/10/20 Range/Units 07:49 05:04 05:04 WBC (4.8-10.8) x10^3/uL RBC (4.20-5.40) 10^6/uL Hgb (12.0-16.0) g/dL Hct (37.0-47.0) % MCV (81.0-99.0) fL MCH (27.0-31.0) pg MCHC (32.0-36.0) g/dL RDW (12.0-15.0) % Plt Count (130-450) 10^3/uL MPV (7.9-10.8) fL Neut # (Auto) (1.5-6.6) 10^3/uL Lymph # (Auto) (1.5-3.5) 10^3/uL Tillman # (Auto) (0.0-1.0) 10^3/uL Eos # (Auto) (0.0-0.7) 10^3/uL Baso # (Auto) (0.0-0.1) 10^3/uL Absolute Nucleated RBC x10^3/uL Nucleated RBC % /100WBC Sodium 143 (135-145) mmol/L Potassium 3.7 (3.5-5.0) mmol/L Chloride 106 (101-111) mmol/L Carbon Dioxide 26 (21-32) mmol/L Anion Gap 11.0 (6-13) BUN 22 H (6-20) mg/dL Creatinine 1.0 (0.4-1.0) mg/dL Estimated GFR (MDRD) 56 L (>89) Glucose 97 (70-100) mg/dL Lactic Acid 1.0 (0.5-2.2) mmol/L Calcium 9.0 (8.5-10.3) mg/dL Magnesium 2.3 (1.7-2.8) mg/dL Total Bilirubin (0.2-1.0) mg/dL AST (10-42) IU/L ALT (10-60) IU/L Alkaline Phosphatase (42-121) IU/L Total Creatine Kinase 822 H (22-269) IU/L Troponin I High Sens 15.9 H* (2.3-14.8) ng/L Total Protein (6.7-8.2) g/dL Albumin (3.2-5.5) g/dL Globulin (2.1-4.2) g/dL Albumin/Globulin Ratio (1.0-2.2) Lipase (22-51) U/L TSH (0.34-5.60) uIU/mL Free T4 (0.58-1.64) ng/dL Urine Color Urine Clarity (CLEAR) Urine pH (5.0-7.5) PH Ur Specific [place] (1.002-1.030) Urine Protein (NEGATIVE) mg/dL Urine Glucose (UA) (NEGATIVE) mg/dL Urine Ketones (NEGATIVE) mg/dL Urine Occult Blood (NEGATIVE) Urine Nitrite (NEGATIVE) Urine Bilirubin (NEGATIVE) Urine Urobilinogen (NORMAL) E.U./dL Ur Leukocyte Esterase (NEGATIVE) Urine RBC (0-5) /HPF Urine WBC (0-5) /HPF Ur Squamous Epith Cells (<= Few) Urine Bacteria (None Seen) /HPF Urine Mucus Ur Microscopic Review Urine Culture Comments Nasal Adenovirus (PCR) Nasal B. parapertussis DNA (PCR) Nasal Coronavir 229E PCR Nasal Coronavir HKU1 PCR Nasal Coronavir NL63 PCR Nasal Coronavir OC43 PCR Nasal Enterovir/Rhinovir PCR Nasal Influenza B PCR Nasal Influenza A PCR Nasal Parainfluen 1 PCR Nasal Parainfluen 2 PCR Nasal Parainfluen 3 PCR Nasal Parainfluen 4 PCR Nasal RSV (PCR) Nasal B.pertussis DNA PCR Nasal C.pneumoniae (PCR) Jaya Human Metapneumo PCR Nasal M.pneumoniae (PCR) Nasal SARS-CoV-2 (PCR) Salicylates mg/dL Urine Opiates Screen (NEGATIVE) Ur Oxycodone Screen (NEGATIVE) Urine Methadone Screen (NEGATIVE) Ur Propoxyphene Screen (NEGATIVE) Acetaminophen (10-30) ug/mL Ur Barbiturates Screen (NEGATIVE) Ur Tricyclics Screen (NEGATIVE) Ur Phencyclidine Scrn (NEGATIVE) Ur Amphetamine Screen (NEGATIVE) U Methamphetamines Scrn (NEGATIVE) U Benzodiazepines Scrn (NEGATIVE) Urine Cocaine Screen (NEGATIVE) U Cannabinoids Screen (NEGATIVE) Ethyl Alcohol mg/dL 12/10/20 12/10/20 12/09/20 Range/Units 05:04 00:50 18:28 WBC 10.4 (4.8-10.8) x10^3/uL RBC 4.14 L (4.20-5.40) 10^6/uL Hgb 12.5 (12.0-16.0) g/dL Hct 38.6 (37.0-47.0) % MCV 93.2 (81.0-99.0) fL MCH 30.2 (27.0-31.0) pg MCHC 32.4 (32.0-36.0) g/dL RDW 14.8 (12.0-15.0) % Plt Count 289 (130-450) 10^3/uL MPV 10.3 (7.9-10.8) fL Neut # (Auto) 6.8 H (1.5-6.6) 10^3/uL Lymph # (Auto) 2.5 (1.5-3.5) 10^3/uL [place] # (Auto) 0.8 (0.0-1.0) 10^3/uL Eos # (Auto) 0.1 (0.0-0.7) 10^3/uL Baso # (Auto) 0.1 (0.0-0.1) 10^3/uL Absolute Nucleated RBC 0.00 x10^3/uL Nucleated RBC % 0.0 /100WBC Sodium (135-145) mmol/L Potassium (3.5-5.0) mmol/L Chloride (101-111) mmol/L Carbon Dioxide (21-32) mmol/L Anion Gap (6-13) BUN (6-20) mg/dL Creatinine (0.4-1.0) mg/dL Estimated GFR (MDRD) (>89) Glucose (70-100) mg/dL Lactic Acid (0.5-2.2) mmol/L Calcium (8.5-10.3) mg/dL Magnesium (1.7-2.8) mg/dL Total Bilirubin (0.2-1.0) mg/dL AST (10-42) IU/L ALT (10-60) IU/L Alkaline Phosphatase (42-121) IU/L Total Creatine Kinase (22-269) IU/L Troponin I High Sens 16.7 H* 15.8 H* (2.3-14.8) ng/L Total Protein (6.7-8.2) g/dL Albumin (3.2-5.5) g/dL Globulin (2.1-4.2) g/dL Albumin/Globulin Ratio (1.0-2.2) Lipase (22-51) U/L TSH (0.34-5.60) uIU/mL Free T4 (0.58-1.64) ng/dL Urine Color Urine Clarity (CLEAR) Urine pH (5.0-7.5) PH Ur Specific [place] (1.002-1.030) Urine Protein (NEGATIVE) mg/dL Urine Glucose (UA) (NEGATIVE) mg/dL Urine Ketones (NEGATIVE) mg/dL Urine Occult Blood (NEGATIVE) Urine Nitrite (NEGATIVE) Urine Bilirubin (NEGATIVE) Urine Urobilinogen (NORMAL) E.U./dL Ur Leukocyte Esterase (NEGATIVE) Urine RBC (0-5) /HPF Urine WBC (0-5) /HPF Ur Squamous Epith Cells (<= Few) Urine Bacteria (None Seen) /HPF Urine Mucus Ur Microscopic Review Urine Culture Comments Nasal Adenovirus (PCR) Nasal B. parapertussis DNA (PCR) Nasal Coronavir 229E PCR Nasal Coronavir HKU1 PCR Nasal Coronavir NL63 PCR Nasal Coronavir OC43 PCR Nasal Enterovir/Rhinovir PCR Nasal Influenza B PCR Nasal Influenza A PCR Nasal Parainfluen 1 PCR Nasal Parainfluen 2 PCR Nasal Parainfluen 3 PCR Nasal Parainfluen 4 PCR Nasal RSV (PCR) Nasal B.pertussis DNA PCR Nasal C.pneumoniae (PCR) Jaya Human Metapneumo PCR Nasal M.pneumoniae (PCR) Nasal SARS-CoV-2 (PCR) Salicylates mg/dL Urine Opiates Screen (NEGATIVE) Ur Oxycodone Screen (NEGATIVE) Urine Methadone Screen (NEGATIVE) Ur Propoxyphene Screen (NEGATIVE) Acetaminophen (10-30) ug/mL Ur Barbiturates Screen (NEGATIVE) Ur Tricyclics Screen (NEGATIVE) Ur Phencyclidine Scrn (NEGATIVE) Ur Amphetamine Screen (NEGATIVE) U Methamphetamines Scrn (NEGATIVE) U Benzodiazepines Scrn (NEGATIVE) Urine Cocaine Screen (NEGATIVE) U Cannabinoids Screen (NEGATIVE) Ethyl Alcohol mg/dL 12/09/20 12/09/20 12/09/20 Range/Units 18:28 18:28 18:28 WBC (4.8-10.8) x10^3/uL RBC (4.20-5.40) 10^6/uL Hgb (12.0-16.0) g/dL Hct (37.0-47.0) % MCV (81.0-99.0) fL MCH (27.0-31.0) pg MCHC (32.0-36.0) g/dL RDW (12.0-15.0) % Plt Count (130-450) 10^3/uL MPV (7.9-10.8) fL Neut # (Auto) (1.5-6.6) 10^3/uL Lymph # (Auto) (1.5-3.5) 10^3/uL [place] # (Auto) (0.0-1.0) 10^3/uL Eos # (Auto) (0.0-0.7) 10^3/uL Baso # (Auto) (0.0-0.1) 10^3/uL Absolute Nucleated RBC x10^3/uL Nucleated RBC % /100WBC Sodium 145 (135-145) mmol/L Potassium 4.4 (3.5-5.0) mmol/L Chloride 103 (101-111) mmol/L Carbon Dioxide 27 (21-32) mmol/L Anion Gap 15.0 H (6-13) BUN 29 H (6-20) mg/dL Creatinine 1.2 H (0.4-1.0) mg/dL Estimated GFR (MDRD) 45 L (>89) Glucose 124 H (70-100) mg/dL Lactic Acid 2.6 H (0.5-2.2) mmol/L Calcium 9.4 (8.5-10.3) mg/dL Magnesium (1.7-2.8) mg/dL Total Bilirubin 0.8 (0.2-1.0) mg/dL AST 28 (10-42) IU/L ALT 19 (10-60) IU/L Alkaline Phosphatase 92 (42-121) IU/L Total Creatine Kinase 856 H (22-269) IU/L Troponin I High Sens (2.3-14.8) ng/L Total Protein 7.8 (6.7-8.2) g/dL Albumin 4.2 (3.2-5.5) g/dL Globulin 3.6 (2.1-4.2) g/dL Albumin/Globulin Ratio 1.2 (1.0-2.2) Lipase 28 (22-51) U/L TSH 0.82 (0.34-5.60) uIU/mL Free T4 0.73 (0.58-1.64) ng/dL Urine Color Urine Clarity (CLEAR) Urine pH (5.0-7.5) PH Ur Specific [place] (1.002-1.030) Urine Protein (NEGATIVE) mg/dL Urine Glucose (UA) (NEGATIVE) mg/dL Urine Ketones (NEGATIVE) mg/dL Urine Occult Blood (NEGATIVE) Urine Nitrite (NEGATIVE) Urine Bilirubin (NEGATIVE) Urine Urobilinogen (NORMAL) E.U./dL Ur Leukocyte Esterase (NEGATIVE) Urine RBC (0-5) /HPF Urine WBC (0-5) /HPF Ur Squamous Epith Cells (<= Few) Urine Bacteria (None Seen) /HPF Urine Mucus Ur Microscopic Review Urine Culture Comments Nasal Adenovirus (PCR) Nasal B. parapertussis DNA (PCR) Nasal Coronavir 229E PCR Nasal Coronavir HKU1 PCR Nasal Coronavir NL63 PCR Nasal Coronavir OC43 PCR Nasal Enterovir/Rhinovir PCR Nasal Influenza B PCR Nasal Influenza A PCR Nasal Parainfluen 1 PCR Nasal Parainfluen 2 PCR Nasal Parainfluen 3 PCR Nasal Parainfluen 4 PCR Nasal RSV (PCR) Nasal B.pertussis DNA PCR Nasal C.pneumoniae (PCR) Jaya Human Metapneumo PCR Nasal M.pneumoniae (PCR) Nasal SARS-CoV-2 (PCR) Salicylates < 6.0 mg/dL Urine Opiates Screen (NEGATIVE) Ur Oxycodone Screen (NEGATIVE) Urine Methadone Screen (NEGATIVE) Ur Propoxyphene Screen (NEGATIVE) Acetaminophen < 10 L (10-30) ug/mL Ur Barbiturates Screen (NEGATIVE) Ur Tricyclics Screen (NEGATIVE) Ur Phencyclidine Scrn (NEGATIVE) Ur Amphetamine Screen (NEGATIVE) U Methamphetamines Scrn (NEGATIVE) U Benzodiazepines Scrn (NEGATIVE) Urine Cocaine Screen (NEGATIVE) U Cannabinoids Screen (NEGATIVE) Ethyl Alcohol < 5.0 mg/dL 12/09/20 12/09/20 12/09/20 Range/Units 18:28 17:47 16:58 WBC 15.0 H (4.8-10.8) x10^3/uL RBC 4.64 (4.20-5.40) 10^6/uL Hgb 14.2 (12.0-16.0) g/dL Hct 43.7 (37.0-47.0) % MCV 94.2 (81.0-99.0) fL MCH 30.6 (27.0-31.0) pg MCHC 32.5 (32.0-36.0) g/dL RDW 14.7 (12.0-15.0) % Plt Count 331 (130-450) 10^3/uL MPV 10.6 (7.9-10.8) fL Neut # (Auto) 11.2 H (1.5-6.6) 10^3/uL Lymph # (Auto) 2.5 (1.5-3.5) 10^3/uL [place] # (Auto) 1.1 H (0.0-1.0) 10^3/uL Eos # (Auto) 0.0 (0.0-0.7) 10^3/uL Baso # (Auto) 0.1 (0.0-0.1) 10^3/uL Absolute Nucleated RBC 0.00 x10^3/uL Nucleated RBC % 0.0 /100WBC Sodium (135-145) mmol/L Potassium (3.5-5.0) mmol/L Chloride (101-111) mmol/L Carbon Dioxide (21-32) mmol/L Anion Gap (6-13) BUN (6-20) mg/dL Creatinine (0.4-1.0) mg/dL Estimated GFR (MDRD) (>89) Glucose (70-100) mg/dL Lactic Acid (0.5-2.2) mmol/L Calcium (8.5-10.3) mg/dL Magnesium (1.7-2.8) mg/dL Total Bilirubin (0.2-1.0) mg/dL AST (10-42) IU/L ALT (10-60) IU/L Alkaline Phosphatase (42-121) IU/L Total Creatine Kinase (22-269) IU/L Troponin I High Sens (2.3-14.8) ng/L Total Protein (6.7-8.2) g/dL Albumin (3.2-5.5) g/dL Globulin (2.1-4.2) g/dL Albumin/Globulin Ratio (1.0-2.2) Lipase (22-51) U/L TSH (0.34-5.60) uIU/mL Free T4 (0.58-1.64) ng/dL Urine Color YELLOW Urine Clarity HAZY (CLEAR) Urine pH 5.5 (5.0-7.5) PH Ur Specific [place] 1.025 (1.002-1.030) Urine Protein TRACE (NEGATIVE) mg/dL Urine Glucose (UA) NEGATIVE (NEGATIVE) mg/dL Urine Ketones NEGATIVE (NEGATIVE) mg/dL Urine Occult Blood TRACE-LYSE (NEGATIVE) Urine Nitrite POSITIVE H (NEGATIVE) Urine Bilirubin NEGATIVE (NEGATIVE) Urine Urobilinogen 0.2 (NORMAL) (NORMAL) E.U./dL Ur Leukocyte Esterase NEGATIVE (NEGATIVE) Urine RBC 0-5 (0-5) /HPF Urine WBC 4-5 (0-5) /HPF Ur Squamous Epith Cells RARE Squamous (<= Few) Urine Bacteria Many H (None Seen) /HPF Urine Mucus Few Strands Ur Microscopic Review INDICATED Urine Culture Comments INDICATED Nasal Adenovirus (PCR) NOT DETECTED Nasal B. parapertussis DNA (PCR) NOT DETECTED Nasal Coronavir 229E PCR NOT DETECTED Nasal Coronavir HKU1 PCR NOT DETECTED Nasal Coronavir NL63 PCR NOT DETECTED Nasal Coronavir OC43 PCR NOT DETECTED Nasal Enterovir/Rhinovir PCR NOT DETECTED Nasal Influenza B PCR NOT DETECTED Nasal Influenza A PCR NOT DETECTED Nasal Parainfluen 1 PCR NOT DETECTED Nasal Parainfluen 2 PCR NOT DETECTED Nasal Parainfluen 3 PCR NOT DETECTED Nasal Parainfluen 4 PCR NOT DETECTED Nasal RSV (PCR) NOT DETECTED Nasal B.pertussis DNA PCR NOT DETECTED Nasal C.pneumoniae (PCR) NOT DETECTED Jaya Human Metapneumo PCR NOT DETECTED Nasal M.pneumoniae (PCR) NOT DETECTED Nasal SARS-CoV-2 (PCR) NOT DETECTED Salicylates mg/dL Urine Opiates Screen NEGATIVE (NEGATIVE) Ur Oxycodone Screen NEGATIVE (NEGATIVE) Urine Methadone Screen NEGATIVE (NEGATIVE) Ur Propoxyphene Screen NEGATIVE (NEGATIVE) Acetaminophen (10-30) ug/mL Ur Barbiturates Screen NEGATIVE (NEGATIVE) Ur Tricyclics Screen NEGATIVE (NEGATIVE) Ur Phencyclidine Scrn NEGATIVE (NEGATIVE) Ur Amphetamine Screen NEGATIVE (NEGATIVE) U Methamphetamines Scrn NEGATIVE (NEGATIVE) U Benzodiazepines Scrn NEGATIVE (NEGATIVE) Urine Cocaine Screen NEGATIVE (NEGATIVE) U Cannabinoids Screen NEGATIVE (NEGATIVE) Ethyl Alcohol mg/dL ABX Reporting Has patient been on IV antibiotics over the past 48 hours?: No Assessment/Plan - Problem List (1) Acute metabolic encephalopathy Impression: She is improved today but still not back to baseline. She has now had multiple admissions for a very similar presentation and it appears that she improves with IV fluids. She has been diagnosed with urinary tract infections in the past but her most recent cultures had no growth and she improved with just IV fluids alone. The etiology of these repeat episodes is not clear. I wonder if she may be taking her medications inappropriately such as the baclofen or if she just becomes dehydrated leading to a fall and then she is unable to get up on her own. CT of the head was unremarkable. Her TSH is also within normal limits. At this time, we will continue IV hydration and hold off on antibiotics. We will continue to hold her home sedatives for the time being. I am hopeful that she will return back to baseline over next 24 hours. We will discuss with social work regarding safe disposition. (2) Acute kidney injury Impression: This was likely prerenal injury due to dehydration. Her creatinine was 1.2 and today is improved to 1.0. Her baseline is 0.8. We will continue with gentle IV hydration. (3) Dehydration Impression: Suspect this is contributing to her encephalopathy and her acute kidney injury. She has responded well to IV hydration and we will continue IV lactated Ringer's. (4) Abnormal urinalysis Impression: Her urinalysis reveals positive nitrites and many bacteria without pyuria. She denies any symptoms of urinary tract infection and I suspect this is just asymptomatic bacteriuria. She received ceftriaxone in the emergency department but based off of prior urine cultures, these have all been resistant to ceftriaxone and so I doubt that her improvement over the past 24 hours will be related to IV antibiotics. We will continue to hold off on antibiotics. (5) Elevated CK Impression: Her CKs are mildly elevated this is likely due to her being found down. We will continue gentle IV hydration. (6) Seizure disorder Impression: She is on Keppra for history of seizures. It is unclear if she may be having seizures at home causing her to be postictal for extended period of time and leading to these admissions. We will resume her home Keppra and I will attempt to reach out to her neurologist. She will benefit from an outpatient EEG. CT this hospitalization was unremarkable. She had MRI back in June which showed mild to moderate degree of white matter disease consistent with her history of multiple sclerosis but there was no evidence of infarct. (7) Psoriasis Impression: The rash over her back is consistent with psoriasis and she reports a prior history of this. She denies being on any medications for this. I have offered her a topical steroid which she is agreeable to and so we will start her on clobetasol. (8) Hypothyroid Impression: Her TSH was within normal limits. We will continue her home Synthroid. (9) Multiple sclerosis Impression: She has a history of multiple sclerosis and her most recent MRI in June showed mild to moderate degree of white matter disease. It does not appear that she is on therapy for this and she currently is a poor historian. We will attempt to reach out to her neurologist to obtain further history regarding her multiple sclerosis and seizure disorder.
[2020-12-10] MEDS: CLOPIDOGREL 75 MG TABLET PO SCH (09:20)
[2020-12-10] MEDS: levETIRAcetam 250 MG TABLET PO SCH ×2 (09:21→20:11)
[2020-12-10] MEDS: LEVOTHYROXINE 25 MCG TABLET PO SCH (10:57)
[2020-12-10 11:56] LABS: ESTIMATED AVERAGE GLUCOSE 128 mg/dL (70-100); HEMOGLOBIN A1c% 6.1 % (4.27-6.07)
[2020-12-10] MEDS ORDERED: LACTATED RINGERS 1,000 ML IV ONE (14:04)
[2020-12-10] MEDS: ATORVASTATIN 40 MG TABLET PO SCH (20:11)
[2020-12-10] MEDS: CHOLESTYRAMINE 4 GM PACKET PO SCH (20:12)
[2020-12-10] MEDS: BACLOFEN 10 MG TABLET PO SCH (20:35)
[2020-12-11] MEDS: ACETAMINOPHEN 325 MG TABLET PO PRN (00:09)
[2020-12-11] MEDS: SODIUM CHLORIDE FLUSH 0.9% 10 ML SYRINGE IVP SCH ×3 (00:23→16:37)
[2020-12-11 05:23] LABS: BASOPHILS # (AUTO) 0.1 10^3/uL (0.0-0.1); BASOPHILS % (AUTO) 1.1 %; EOSINOPHILS # (AUTO) 0.5 10^3/uL (0.0-0.7); EOSINOPHILS % (AUTO) 5.3 %; HCT - HEMATOCRIT 35.3 % (37.0-47.0); HGB - HEMOGLOBIN 11.6 g/dL (12.0-16.0); LYMPHOCYTES # (AUTO) 2.9 10^3/uL (1.5-3.5); LYMPHOCYTES % (AUTO) 34.1 %; MEAN CORPUSCULAR HEMOGLOBIN 31.2 pg (27.0-31.0); MEAN CORPUSCULAR HGB CONC 32.9 g/dL (32.0-36.0); MEAN CORPUSCULAR VOLUME 94.9 fL (81.0-99.0); MEAN PLATELET VOLUME 10.6 fL (7.9-10.8); MONOCYTES # (AUTO) 0.8 10^3/uL (0.0-1.0); MONOCYTES % (AUTO) 9.6 %; NEUTROPHILS # (AUTO) 4.2 10^3/uL (1.5-6.6); NEUTROPHILS % (AUTO) 49.5 %; PLT - PLATELET COUNT 247 10^3/uL (130-450); RED BLOOD COUNT 3.72 10^6/uL (4.20-5.40); RED CELL DISTRIBUTION WIDTH 14.8 % (12.0-15.0); WHITE BLOOD COUNT 8.5 x10^3/uL (4.8-10.8)
[2020-12-11 05:45] LABS: CALCIUM 8.8 mg/dL (8.5-10.3); CREATININE 0.9 mg/dL (0.4-1.0); MAGNESIUM 2.2 mg/dL (1.7-2.8); POTASSIUM 3.7 mmol/L (3.5-5.0)
[2020-12-11] MEDS: LEVOTHYROXINE 25 MCG TABLET PO SCH (06:13)
[2020-12-11] MEDS: CLOPIDOGREL 75 MG TABLET PO SCH (09:50)
[2020-12-11] MEDS: levETIRAcetam 250 MG TABLET PO SCH ×2 (09:51→20:03)
[2020-12-11] MEDS: BACLOFEN 10 MG TABLET PO SCH ×4 (09:51→20:03)
[2020-12-11] MEDS: ENOXAPARIN 40 MG/0.4 ML SYRINGE SUBQ SCH (10:03)
[2020-12-11] MEDS: oxyCODONE 5 MG TABLET PO PRN ×2 (11:33→20:02)
[2020-12-11] MEDS: CLOBETASOL 0.05% OINT 15 GM TUBE TOP SCH ×2 (11:33→20:04)
--- NOTE | 2020-12-11 13:20 | PROVIDER PROGRESS NOTE ---
Subjective - Prog Note Date Prog Note Date: 12/11/20 - Subjective Subjective: She reports feeling better today. She is complaining of some muscle cramping for which she takes baclofen. She cannot recall what happened prior to her hospitalization but knows that she is here after she was found down by her neighbor. She states her seizures have been relatively well controlled on just the Keppra alone. Current Medications - Current Medications Current Medications: Active Medications Acetaminophen (Acetaminophen 325 Mg Tablet) 650 mg PO Q4HR PRN PRN Reason: Pain 1 to 4 Last Admin: 12/11/20 00:09 Dose: 650 mg Documented by: Atorvastatin Calcium (Atorvastatin 40 Mg Tablet) 40 mg PO QPM [facility] Last Admin: 12/10/20 20:11 Dose: 40 mg Documented by: Baclofen (Baclofen 10 Mg Tablet) 10 mg PO QID [facility] Last Admin: 12/11/20 11:41 Dose: 10 mg Documented by: Cholestyramine/Sucrose (Cholestyramine 4 Gm Packet) 4 gm PO QPM [facility] Last Admin: 12/10/20 20:12 Dose: 4 gm Documented by: Clobetasol Propionate (Clobetasol 0.05% Oint 15 Gm Tube) 1 applic TOP BID [facility] Last Admin: 12/11/20 11:33 Dose: 1 applic Documented by: Clopidogrel Bisulfate (Clopidogrel 75 Mg Tablet) 75 mg PO DAILY [facility] Last Admin: 12/11/20 09:50 Dose: 75 mg Documented by: Enoxaparin Sodium (Enoxaparin 40 Mg/0.4 Ml Syringe) 40 mg SUBQ DAILY [facility] Last Admin: 12/11/20 10:03 Dose: 40 mg Documented by: Levetiracetam (Levetiracetam 250 Mg Tablet) 500 mg PO BID [facility] Last Admin: 12/11/20 09:51 Dose: 500 mg Documented by: Levothyroxine Sodium (Levothyroxine 25 Mcg Tablet) 50 mcg PO QDAC [facility] Last Admin: 12/11/20 06:13 Dose: 50 mcg Documented by: Metoprolol Succinate (Metoprolol Succinate 25 Mg Tablet) 25 mg PO BID [facility] Ondansetron HCl (Ondansetron Odt 4 Mg Tablet) 4 mg TL Q6HR PRN PRN Reason: Nausea / Vomiting Oxycodone HCl (Oxycodone 5 Mg Tablet) 5 mg PO Q4HR PRN PRN Reason: PAIN Last Admin: 12/11/20 11:33 Dose: 5 mg Documented by: Sodium Chloride (Sodium Chloride Flush 0.9% 10 Ml Syringe) 10 ml IVP PRN PRN PRN Reason: NEEDED PER PROVIDER ORDERS Last Admin: 12/10/20 00:04 Dose: 10 ml Documented by: Sodium Chloride (Sodium Chloride Flush 0.9% 10 Ml Syringe) 10 ml IVP 0100,0900,1700 JIN Last Admin: 12/11/20 10:03 Dose: 10 ml Documented by: Cholestyramine [Questran] 4 gm PO QPM 04/28/13 Baclofen 10 mg PO QID 07/18/19 Clopidogrel [Plavix] 75 mg PO DAILY 07/18/19 Glucos Sul 2Kcl/MSM/Chond/C/Mn [Glucosamine Chondroitin Cap] 1 cap PO DAILY 07/18/19 Levothyroxine Sodium 50 mcg PO DAILY 07/18/19 Multivitamin/Iron/Folic Acid [Centrum Women Tablet] 1 ea ORAL DAILY 07/18/19 Atorvastatin [Lipitor] 40 mg PO QPM 02/10/20 Methylphenidate HCl [Methylphenidate ER] 40 mg PO DAILY 02/10/20 levETIRAcetam [Roweepra] 500 mg PO BID 02/10/20 Calcium Carbonate/Vitamin D3 [Calcium 500Mg-Vit D3 15Mcg Tab] 1 each PO DAILY 12/09/20 Furosemide [Lasix] 20 mg PO DAILY 12/09/20 [place]-3/Dha/Epa/Fish Oil [Fish Oil 1,000 mg Softgel] 1 cap PO DAILY 12/09/20 Objective - Vital Signs/Intake & Output Reviewed Vital Signs: Yes Vital Signs: Vital Signs x48h Temp Pulse Resp BP Pulse Ox 12/11/20 10:01 125/77 12/11/20 07:36 36.3 C L 80 20 128/67 94 Intake & Output: Intake & Output 12/08/20 12/09/20 12/10/20 12/11/20 23:59 23:59 23:59 23:59 Intake Total 1603 3710 520 Output Total 900 500 300 Balance 703 3210 220 - Objective General Appearance: positive: No acute distress, Alert Eyes Bilateral: positive: Normal inspection, Conjunctivae nml ENT: positive: ENT inspection nml Neck: positive: Nml inspection Respiratory: positive: No respiratory distress. negative: Wheezes, Rales Cardiovascular: positive: Regular rate & rhythm, No murmur. negative: Tachycardia Skin: positive: Warm, Dry, Skin rash (There is a raised, dry plaque over her lower back approximately 15 x 10 cm.) Extremities: positive: No pedal edema Neurologic/Psychiatric: negative: Disoriented to person, Disoriented to place, Disoriented to time - Lab Results Fish Bones: 12/11/20 05:10 12/11/20 05:10 Other Labs: Lab Results x24hrs 12/11/20 12/11/20 Range/Units 05:10 05:10 WBC 8.5 (4.8-10.8) x10^3/uL RBC 3.72 L (4.20-5.40) 10^6/uL Hgb 11.6 L (12.0-16.0) g/dL Hct 35.3 L (37.0-47.0) % MCV 94.9 (81.0-99.0) fL MCH 31.2 H (27.0-31.0) pg MCHC 32.9 (32.0-36.0) g/dL RDW 14.8 (12.0-15.0) % Plt Count 247 (130-450) 10^3/uL MPV 10.6 (7.9-10.8) fL Neut # (Auto) 4.2 (1.5-6.6) 10^3/uL Lymph # (Auto) 2.9 (1.5-3.5) 10^3/uL [place] # (Auto) 0.8 (0.0-1.0) 10^3/uL Eos # (Auto) 0.5 (0.0-0.7) 10^3/uL Baso # (Auto) 0.1 (0.0-0.1) 10^3/uL Absolute Nucleated RBC 0.00 x10^3/uL Nucleated RBC % 0.0 /100WBC Sodium 141 (135-145) mmol/L Potassium 3.7 (3.5-5.0) mmol/L Chloride 108 (101-111) mmol/L Carbon Dioxide 25 (21-32) mmol/L Anion Gap 8.0 (6-13) BUN 16 (6-20) mg/dL Creatinine 0.9 (0.4-1.0) mg/dL Estimated GFR (MDRD) 63 L (>89) Glucose 90 (70-100) mg/dL Calcium 8.8 (8.5-10.3) mg/dL Magnesium 2.2 (1.7-2.8) mg/dL Total Creatine Kinase 444 H (22-269) IU/L ABX Reporting Has patient been on IV antibiotics over the past 48 hours?: No Assessment/Plan - Problem List (1) Acute metabolic encephalopathy Impression: This is now resolved. Suspect this likely related to dehydration given she responded well to IV fluids. Do not suspect that a urinary tract infection caused this. She returned she have had a seizure although she reports her seizures have been controlled on Keppra. Imaging has been unremarkable. Will recommend that she have an outpatient EEG given her multiple admissions for a similar presentation. We will also discontinue her furosemide on discharge. (2) Asymptomatic bacteriuria Impression: Her urine culture grew Klebsiella pneumonia. She has no symptoms of infection and suspect her elevated white count initially and lactic acid was related to dehydration and not infection. We will continue to hold antibiotics. (3) Elevated CK Impression: This has improved to the 400s. This was secondary to her being found down at [facility]. (4) Seizure disorder Impression: She reports that her seizures have been stable on Keppra alone although given her multiple admissions after being found down at home, one must wonder if she could be having seizures at home and she is then found to be postictal and brought to the emergency department. We will continue her on Keppra and she will most definitely need an outpatient EEG and evaluation by her neurologist. (5) Psoriasis Impression: We have started her on clobetasol. (6) Hypothyroid Impression: We are continuing her home Synthroid. (7) Multiple sclerosis Impression: Stable. We are continuing her home baclofen. She will continue to follow-up with her neurologist. (8) Physical deconditioning Impression: She is quite deconditioned and was evaluated by physical therapy today who are recommending a correction facility. This was discussed with social work and we are now working on placement. The patient is agreeable to going to a correction facility. (9) Acute kidney injury Impression: This was prerenal injury and resolved with IV fluids. Her renal function is back to baseline.
[2020-12-11] MEDS: METOPROLOL SUCCINATE 25 MG TABLET PO SCH (20:02)
[2020-12-11] MEDS: ATORVASTATIN 40 MG TABLET PO SCH (20:02)
[2020-12-11] MEDS: CHOLESTYRAMINE 4 GM PACKET PO SCH (20:03)
[2020-12-12] MEDS: oxyCODONE 5 MG TABLET PO PRN ×5 (00:49→20:58)
[2020-12-12] MEDS: SODIUM CHLORIDE FLUSH 0.9% 10 ML SYRINGE IVP SCH ×3 (00:51→16:50)
[2020-12-12 05:40] LABS: BASOPHILS # (AUTO) 0.1 10^3/uL (0.0-0.1); BASOPHILS % (AUTO) 1.1 %; EOSINOPHILS # (AUTO) 0.4 10^3/uL (0.0-0.7); EOSINOPHILS % (AUTO) 5.3 %; HCT - HEMATOCRIT 38.6 % (37.0-47.0); HGB - HEMOGLOBIN 12.5 g/dL (12.0-16.0); LYMPHOCYTES # (AUTO) 3.1 10^3/uL (1.5-3.5); LYMPHOCYTES % (AUTO) 37.2 %; MEAN CORPUSCULAR HEMOGLOBIN 30.6 pg (27.0-31.0); MEAN CORPUSCULAR HGB CONC 32.4 g/dL (32.0-36.0); MEAN CORPUSCULAR VOLUME 94.6 fL (81.0-99.0); MEAN PLATELET VOLUME 10.7 fL (7.9-10.8); MONOCYTES # (AUTO) 0.7 10^3/uL (0.0-1.0); MONOCYTES % (AUTO) 7.8 %; NEUTROPHILS % (AUTO) 48.1 %; PLT - PLATELET COUNT 265 10^3/uL (130-450); RED BLOOD COUNT 4.08 10^6/uL (4.20-5.40); RED CELL DISTRIBUTION WIDTH 14.5 % (12.0-15.0); WHITE BLOOD COUNT 8.3 x10^3/uL (4.8-10.8)
[2020-12-12 05:51] LABS: CALCIUM 8.9 mg/dL (8.5-10.3); MAGNESIUM 2.2 mg/dL (1.7-2.8); POTASSIUM 3.9 mmol/L (3.5-5.0)
[2020-12-12] MEDS: LEVOTHYROXINE 25 MCG TABLET PO SCH (06:53)
[2020-12-12] MEDS: BACLOFEN 10 MG TABLET PO SCH ×4 (08:38→20:53)
[2020-12-12] MEDS: CLOPIDOGREL 75 MG TABLET PO SCH (08:38)
[2020-12-12] MEDS: ENOXAPARIN 40 MG/0.4 ML SYRINGE SUBQ SCH (08:39)
[2020-12-12] MEDS: levETIRAcetam 250 MG TABLET PO SCH ×2 (08:39→20:52)
[2020-12-12] MEDS: METOPROLOL SUCCINATE 25 MG TABLET PO SCH ×2 (10:28→20:52)
[2020-12-12] MEDS: CLOBETASOL 0.05% OINT 15 GM TUBE TOP SCH ×2 (13:25→20:51)
--- NOTE | 2020-12-12 15:13 | PROVIDER PROGRESS NOTE ---
Subjective - Prog Note Date Prog Note Date: 12/12/20 - Subjective Subjective: She complains of her chronic lower back pain today. She is now walking a little bit more but still feels unsteady. She is looking forward to going to a detention facility. Current Medications - Current Medications Current Medications: Active Medications Acetaminophen (Acetaminophen 325 Mg Tablet) 650 mg PO Q4HR PRN PRN Reason: Pain 1 to 4 Last Admin: 12/11/20 00:09 Dose: 650 mg Documented by: Atorvastatin Calcium (Atorvastatin 40 Mg Tablet) 40 mg PO QPM [facility] Last Admin: 12/11/20 20:02 Dose: 40 mg Documented by: Baclofen (Baclofen 10 Mg Tablet) 10 mg PO QID [facility] Last Admin: 12/12/20 12:55 Dose: 10 mg Documented by: Cholestyramine/Sucrose (Cholestyramine 4 Gm Packet) 4 gm PO QPM [facility] Last Admin: 12/11/20 20:03 Dose: 4 gm Documented by: Clobetasol Propionate (Clobetasol 0.05% Oint 15 Gm Tube) 1 applic TOP BID [facility] Last Admin: 12/12/20 13:25 Dose: Not Given Documented by: Clopidogrel Bisulfate (Clopidogrel 75 Mg Tablet) 75 mg PO DAILY [facility] Last Admin: 12/12/20 08:38 Dose: 75 mg Documented by: Enoxaparin Sodium (Enoxaparin 40 Mg/0.4 Ml Syringe) 40 mg SUBQ DAILY [facility] Last Admin: 12/12/20 08:39 Dose: 40 mg Documented by: Levetiracetam (Levetiracetam 250 Mg Tablet) 500 mg PO BID [facility] Last Admin: 12/12/20 08:39 Dose: 500 mg Documented by: Levothyroxine Sodium (Levothyroxine 25 Mcg Tablet) 50 mcg PO QDAC [facility] Last Admin: 12/12/20 06:53 Dose: 50 mcg Documented by: Metoprolol Succinate (Metoprolol Succinate 25 Mg Tablet) 25 mg PO BID [facility] Last Admin: 12/12/20 10:28 Dose: Not Given Documented by: Ondansetron HCl (Ondansetron Odt 4 Mg Tablet) 4 mg TL Q6HR PRN PRN Reason: Nausea / Vomiting Oxycodone HCl (Oxycodone 5 Mg Tablet) 5 mg PO Q4HR PRN PRN Reason: PAIN Last Admin: 12/12/20 12:55 Dose: 5 mg Documented by: Sodium Chloride (Sodium Chloride Flush 0.9% 10 Ml Syringe) 10 ml IVP PRN PRN PRN Reason: NEEDED PER PROVIDER ORDERS Last Admin: 12/10/20 00:04 Dose: 10 ml Documented by: Sodium Chloride (Sodium Chloride Flush 0.9% 10 Ml Syringe) 10 ml IVP 0100,0900,1700 JIN Last Admin: 12/12/20 08:42 Dose: 10 ml Documented by: Cholestyramine [Questran] 4 gm PO QPM 04/28/13 Baclofen 10 mg PO QID 07/18/19 Clopidogrel [Plavix] 75 mg PO DAILY 07/18/19 Glucos Sul 2Kcl/MSM/Chond/C/Mn [Glucosamine Chondroitin Cap] 1 cap PO DAILY 07/18/19 Levothyroxine Sodium 50 mcg PO DAILY 07/18/19 Multivitamin/Iron/Folic Acid [Centrum Women Tablet] 1 ea ORAL DAILY 07/18/19 Atorvastatin [Lipitor] 40 mg PO QPM 02/10/20 Methylphenidate HCl [Methylphenidate ER] 40 mg PO DAILY 02/10/20 levETIRAcetam [Roweepra] 500 mg PO BID 02/10/20 Calcium Carbonate/Vitamin D3 [Calcium 500Mg-Vit D3 15Mcg Tab] 1 each PO DAILY 12/09/20 Furosemide [Lasix] 20 mg PO DAILY 12/09/20 [place]-3/Dha/Epa/Fish Oil [Fish Oil 1,000 mg Softgel] 1 cap PO DAILY 12/09/20 Objective - Vital Signs/Intake & Output Reviewed Vital Signs: Yes Vital Signs: Vital Signs x48h Temp Pulse Resp BP Pulse Ox 12/12/20 11:38 36.4 C L 78 20 132/63 H 94 12/12/20 08:00 36.4 C L 70 16 98/62 95 Intake & Output: Intake & Output 12/09/20 12/10/20 12/11/20 12/12/20 23:59 23:59 23:59 23:59 Intake Total 1603 3710 1180 590 Output Total 900 062 122 5897 Balance 703 3210 730 -1110 - Objective General Appearance: positive: No acute distress, Alert Eyes Bilateral: positive: Normal inspection, Conjunctivae nml ENT: positive: ENT inspection nml Neck: positive: Nml inspection Respiratory: positive: No respiratory distress Back: positive: Other (No lumbar spinal tenderness or paraspinal tenderness.) Skin: positive: Warm, Dry, Other (There is a raised, dry plaque over her lower back approximately 15 x 10 cm.) Extremities: positive: No pedal edema Neurologic/Psychiatric: negative: Disoriented to person - Lab Results Fish Bones: 12/12/20 05:05 12/12/20 05:05 Other Labs: Lab Results x24hrs 12/12/20 12/12/20 Range/Units 05:05 05:05 WBC 8.3 (4.8-10.8) x10^3/uL RBC 4.08 L (4.20-5.40) 10^6/uL Hgb 12.5 (12.0-16.0) g/dL Hct 38.6 (37.0-47.0) % MCV 94.6 (81.0-99.0) fL MCH 30.6 (27.0-31.0) pg MCHC 32.4 (32.0-36.0) g/dL RDW 14.5 (12.0-15.0) % Plt Count 265 (130-450) 10^3/uL MPV 10.7 (7.9-10.8) fL Neut # (Auto) 4.0 (1.5-6.6) 10^3/uL Lymph # (Auto) 3.1 (1.5-3.5) 10^3/uL [place] # (Auto) 0.7 (0.0-1.0) 10^3/uL Eos # (Auto) 0.4 (0.0-0.7) 10^3/uL Baso # (Auto) 0.1 (0.0-0.1) 10^3/uL Absolute Nucleated RBC 0.00 x10^3/uL Nucleated RBC % 0.0 /100WBC Sodium 137 (135-145) mmol/L Potassium 3.9 (3.5-5.0) mmol/L Chloride 105 (101-111) mmol/L Carbon Dioxide 23 (21-32) mmol/L Anion Gap 9.0 (6-13) BUN 13 (6-20) mg/dL Creatinine 1.0 (0.4-1.0) mg/dL Estimated GFR (MDRD) 56 L (>89) Glucose 91 (70-100) mg/dL Calcium 8.9 (8.5-10.3) mg/dL Magnesium 2.2 (1.7-2.8) mg/dL Total Creatine Kinase 292 H (22-269) IU/L Assessment/Plan - Problem List (1) Acute metabolic encephalopathy Impression: This is resolved. Suspect this is related to dehydration given she improved with IV fluids. I do wonder if she may have had a seizure although she reports they have been controlled on Keppra. Imaging has been unremarkable. We will discontinue Lasix on discharge and will recommend an outpatient EEG. (2) Asymptomatic bacteriuria Impression: Her urine culture grew Klebsiella pneumonia. She has no symptoms of infection and suspect her elevated white count initially and lactic acid was related to dehydration and not infection. We will continue to hold antibiotics. (3) Seizure disorder Impression: Although she reports her seizures have been well controlled, I do wonder if she may be having seizures at home which lead to these hospitalizations. We will continue her on Keppra and have recommended she follow-up with her neurologist for an outpatient EEG. I did attempt to contact her neurologist today but he is not in the office. I left a message with his staff and they will ask him to call us back tomorrow. I will sign this out to my colleague tomorrow. Our question for him is to see what the plan is regarding her seizures and multiple sclerosis and to ensure that she has follow-up for potential EEG. Her next scheduled appointment is December 14 at 8:15 AM but I am worried she may potentially miss this if we are still working on disposition. (4) Psoriasis Impression: We have started her on clobetasol on December 11. (5) Hypothyroid Impression: Continue Synthroid. (6) Multiple sclerosis Impression: Continue baclofen. She will continue to follow-up with her neurologist on an outpatient basis. (7) Physical deconditioning Impression: She is quite deconditioned and the plan is to go to a detention facility. We are working closely with social work regarding placement. (8) Acute kidney injury Impression: This was prerenal injury and resolved with IV fluids. (9) Elevated CK Impression: This was secondary to her being found down at home and has resolved.
[2020-12-12] MEDS: CHOLESTYRAMINE 4 GM PACKET PO SCH (20:51)
[2020-12-12] MEDS: ATORVASTATIN 40 MG TABLET PO SCH (20:53)
[2020-12-13] MEDS: oxyCODONE 5 MG TABLET PO PRN ×6 (01:01→23:59)
[2020-12-13] MEDS: SODIUM CHLORIDE FLUSH 0.9% 10 ML SYRINGE IVP SCH ×4 (01:01→23:59)
[2020-12-13] MEDS: ACETAMINOPHEN 325 MG TABLET PO PRN ×3 (03:39→17:40)
[2020-12-13] MEDS: LEVOTHYROXINE 25 MCG TABLET PO SCH (06:00)
[2020-12-13 06:09] LABS: BASOPHILS # (AUTO) 0.1 10^3/uL (0.0-0.1); BASOPHILS % (AUTO) 1.3 %; EOSINOPHILS # (AUTO) 0.3 10^3/uL (0.0-0.7); EOSINOPHILS % (AUTO) 4.2 %; HCT - HEMATOCRIT 40.6 % (37.0-47.0); HGB - HEMOGLOBIN 13.1 g/dL (12.0-16.0); LYMPHOCYTES # (AUTO) 2.6 10^3/uL (1.5-3.5); LYMPHOCYTES % (AUTO) 33.2 %; MEAN CORPUSCULAR HEMOGLOBIN 30.3 pg (27.0-31.0); MEAN CORPUSCULAR HGB CONC 32.3 g/dL (32.0-36.0); MEAN CORPUSCULAR VOLUME 93.8 fL (81.0-99.0); MEAN PLATELET VOLUME 10.9 fL (7.9-10.8); MONOCYTES # (AUTO) 0.7 10^3/uL (0.0-1.0); MONOCYTES % (AUTO) 9.1 %; NEUTROPHILS # (AUTO) 4.1 10^3/uL (1.5-6.6); NEUTROPHILS % (AUTO) 51.8 %; PLT - PLATELET COUNT 232 10^3/uL (130-450); RED BLOOD COUNT 4.33 10^6/uL (4.20-5.40); RED CELL DISTRIBUTION WIDTH 14.2 % (12.0-15.0); WHITE BLOOD COUNT 7.8 x10^3/uL (4.8-10.8)
[2020-12-13 06:18] LABS: CALCIUM 9.1 mg/dL (8.5-10.3); CREATININE 0.8 mg/dL (0.4-1.0); MAGNESIUM 2.2 mg/dL (1.7-2.8); POTASSIUM 4.3 mmol/L (3.5-5.0)
[2020-12-13] MEDS: CLOPIDOGREL 75 MG TABLET PO SCH (08:30)
[2020-12-13] MEDS: BACLOFEN 10 MG TABLET PO SCH ×4 (08:30→21:22)
[2020-12-13] MEDS: METOPROLOL SUCCINATE 25 MG TABLET PO SCH ×2 (08:30→21:22)
[2020-12-13] MEDS: ENOXAPARIN 40 MG/0.4 ML SYRINGE SUBQ SCH (08:30)
[2020-12-13] MEDS: levETIRAcetam 250 MG TABLET PO SCH ×2 (08:30→21:22)
[2020-12-13] MEDS: CLOBETASOL 0.05% OINT 15 GM TUBE TOP SCH ×2 (08:31→21:22)
--- NOTE | 2020-12-13 12:54 | PROVIDER PROGRESS NOTE ---
Assessment/Plan - Problem List (1) Altered mental status Qualifiers: Altered mental status type: disorientation Qualified Code(s): R41.0 - Disorientation, unspecified Assessment/Plan: This is her 5th admission with AMS, which is from dehydration/ UTI/ possibly unwitnessed seizures. Suspect this is related to dehydration given she improved with IV fluids. She may have had a seizure although she reports they have been controlled on Keppra. Will recommend an outpatient EEG. (2) Asymptomatic bacteriuria Impression: Today she can voice symptoms of burning, itching and pain. She had no reported symptoms at admission, possibly due to her AMS. when it was suspected that her elevated white count initially and lactic acid were related to dehydration and not infection. Will recheck a UA today and if abnormal, will start antibx based on the urine culture and sensitivities, which grew Klebsiella pneumonia. (3) Seizure disorder Impression: Although she reports her seizures have been well controlled, we wonder if she may be having seizures at home which lead to these hospitalizations. We will continue her on Keppra and have recommended she follow-up with her neurologist for an outpatient EEG. Our question for him is to see what the plan is regarding her seizures and multiple sclerosis and to ensure that she has follow-up for potential EEG. Her next scheduled appointment is December 14 at 8:15 AM but we are worried she may potentially miss this if we are still working on disposition. (4) Psoriasis Impression: We have started her on clobetasol on December 11. (5) Hypothyroid Impression: Continue Synthroid. (6) Multiple sclerosis Impression: Continue baclofen. She will continue to follow-up with her neurologist on an outpatient basis. (7) Physical deconditioning Impression: She is quite deconditioned and the plan is to go to a senior care facility. We are working closely with social work regarding placement. (8) Acute kidney injury Impression: Resolved. This was prerenal injury and resolved with IV fluids. (9) Elevated CK Impression: This was secondary to her being found down at home (rhabdomyolysis) and has resolved. (10) Acute metabolic encephalopathy Impression: This is resolved. - Current Meds Current Meds: Current Medications Generic Name Dose Route Start Last Admin Trade Name Freq PRN Reason Stop Dose Admin Acetaminophen 650 mg 12/09/20 19:10 12/13/20 08:30 Acetaminophen 325 Mg Tablet PO 650 mg Q4HR PRN Administration Pain 1 to 4 Atorvastatin Calcium 40 mg 12/10/20 21:00 12/12/20 20:53 Atorvastatin 40 Mg Tablet PO 40 mg QPM JIN Administration Baclofen 10 mg 12/10/20 21:00 12/13/20 08:30 Baclofen 10 Mg Tablet PO 10 mg QID JIN Administration Cholestyramine/Sucrose 4 gm 12/10/20 21:00 12/12/20 20:51 Cholestyramine 4 Gm Packet PO 4 gm QPM JIN Administration Clobetasol Propionate 1 applic 12/11/20 11:00 12/13/20 08:31 Clobetasol 0.05% Oint 15 Gm Tube TOP Not Given BID JIN Clopidogrel Bisulfate 75 mg 12/10/20 09:00 12/13/20 08:30 Clopidogrel 75 Mg Tablet PO 75 mg DAILY JIN Administration Enoxaparin Sodium 40 mg 12/10/20 09:00 12/13/20 08:30 Enoxaparin 40 Mg/0.4 Ml Syringe SUBQ 40 mg DAILY JIN Administration Levetiracetam 500 mg 12/10/20 09:00 12/13/20 08:30 Levetiracetam 250 Mg Tablet PO 500 mg BID JIN Administration Levothyroxine Sodium 50 mcg 12/10/20 11:00 12/13/20 06:00 Levothyroxine 25 Mcg Tablet PO 50 mcg QDAC JIN Administration Metoprolol Succinate 25 mg 12/11/20 21:00 12/13/20 08:30 Metoprolol Succinate 25 Mg Tablet PO 25 mg BID JIN Administration Oxycodone HCl 5 mg 12/11/20 11:20 12/13/20 10:08 Oxycodone 5 Mg Tablet PO 5 mg Q4HR PRN Administration PAIN Sodium Chloride 10 ml 12/09/20 19:10 12/10/20 00:04 Sodium Chloride Flush 0.9% 10 Ml Syringe IVP 10 ml PRN PRN Administration NEEDED PER PROVIDER ORDERS Sodium Chloride 10 ml 12/10/20 01:00 12/13/20 08:31 Sodium Chloride Flush 0.9% 10 Ml Syringe IVP 10 ml 0100,0900,1700 JIN Administration - Lab Result Fish Bone Diagrams: 12/13/20 05:51 12/13/20 05:51 - Additional Planning My Orders: My Active Orders 12/13/20 11:20 UA w/ MICROSCOPIC, CULT IF [URIN] Stat 12/13/20 14:00 Phenazopyridine [Pyridium] 100 mg PO TID Subjective - Subjective Patient Reports: Feeling Better, Resting Comfortably Nursing Reports: Other (She told her RN that she has urinarey itching, burning and discomfort) Objective Vital Signs: Vital Signs - 24 hr 12/12/20 12/12/20 12/12/20 16:08 21:00 23:52 Temperature 36.4 C L 36.4 C L 36.5 C Heart Rate [ 75 67 74 Brachial] Respiratory 18 18 16 Rate Blood Pressure 124/73 130/69 133/67 H [Left Brachial artery] O2 Saturation 95 98 96 12/13/20 12/13/20 12/13/20 05:00 08:08 11:26 Temperature 36.4 C L 36.4 C L 36.3 C L Heart Rate [ 69 75 71 Brachial] Respiratory 19 20 17 Rate Blood Pressure 151/74 H 127/80 103/56 L [Left Brachial artery] O2 Saturation 93 96 93 Oxygen O2 Source [Without Activity] Room air O2 Source Room air I&O (Last 24 Hrs): Intake and Output Totals x24h 12/11/20 12/12/20 12/13/20 23:59 23:59 23:59 Intake Total 1180 940 360 Output Total 450 2000 950 Balance 730 -1060 -590 General: Alert HEENT: Other (Dry mucosa, edentulous) Neck: Supple, No JVD Neuro: Alert, Non Focal Cardiovascular: Regular rate, No murmurs Respiratory: No respiratory distress, Breath sounds nml Abdomen: Soft Extremities: Other (1+ edema to shins) - Results Results: Laboratory Results WBC 7.8 x10^3/uL (4.8-10.8) 12/13/20 05:51 RBC 4.33 10^6/uL (4.20-5.40) 12/13/20 05:51 Hgb 13.1 g/dL (12.0-16.0) 12/13/20 05:51 Hct 40.6 % (37.0-47.0) 12/13/20 05:51 MCV 93.8 fL (81.0-99.0) 12/13/20 05:51 MCH 30.3 pg (27.0-31.0) 12/13/20 05:51 MCHC 32.3 g/dL (32.0-36.0) 12/13/20 05:51 RDW 14.2 % (12.0-15.0) 12/13/20 05:51 Plt Count 232 10^3/uL (130-450) 12/13/20 05:51 MPV 10.9 fL (7.9-10.8) H 12/13/20 05:51 Neut # (Auto) 4.1 10^3/uL (1.5-6.6) 12/13/20 05:51 Lymph # (Auto) 2.6 10^3/uL (1.5-3.5) 12/13/20 05:51 [place] # (Auto) 0.7 10^3/uL (0.0-1.0) 12/13/20 05:51 Eos # (Auto) 0.3 10^3/uL (0.0-0.7) 12/13/20 05:51 Baso # (Auto) 0.1 10^3/uL (0.0-0.1) 12/13/20 05:51 Absolute Nucleated RBC 0.00 x10^3/uL 12/13/20 05:51 Nucleated RBC % 0.0 /100WBC 12/13/20 05:51 Sodium 137 mmol/L (135-145) 12/13/20 05:51 Potassium 4.3 mmol/L (3.5-5.0) 12/13/20 05:51 Chloride 104 mmol/L (101-111) 12/13/20 05:51 Carbon Dioxide 24 mmol/L (21-32) 12/13/20 05:51 Anion Gap 9.0 (6-13) 12/13/20 05:51 BUN 14 mg/dL (6-20) 12/13/20 05:51 Creatinine 0.8 mg/dL (0.4-1.0) 12/13/20 05:51 Estimated GFR (MDRD) 72 (>89) L 12/13/20 05:51 Glucose 99 mg/dL (70-100) 12/13/20 05:51 Estimat Average Glucose 128 mg/dL (70-100) H 12/10/20 05:04 Hemoglobin A1c % 6.1 % (4.27-6.07) H 12/10/20 05:04 Lactic Acid 1.0 mmol/L (0.5-2.2) 12/10/20 07:49 Calcium 9.1 mg/dL (8.5-10.3) 12/13/20 05:51 Magnesium 2.2 mg/dL (1.7-2.8) 12/13/20 05:51 Total Bilirubin 0.8 mg/dL (0.2-1.0) 12/09/20 18:28 AST 28 IU/L (10-42) 12/09/20 18:28 ALT 19 IU/L (10-60) 12/09/20 18:28 Alkaline Phosphatase 92 IU/L (42-121) 12/09/20 18:28 Total Creatine Kinase 201 IU/L (22-269) 12/13/20 05:51 Troponin I High Sens 15.9 ng/L (2.3-14.8) H* 12/10/20 05:04 Total Protein 7.8 g/dL (6.7-8.2) 12/09/20 18:28 Albumin 4.2 g/dL (3.2-5.5) 12/09/20 18:28 Globulin 3.6 g/dL (2.1-4.2) 12/09/20 18:28 Albumin/Globulin Ratio 1.2 (1.0-2.2) 12/09/20 18:28 Lipase 28 U/L (22-51) 12/09/20 18:28 TSH 0.82 uIU/mL (0.34-5.60) 12/09/20 18:28 Free T4 0.73 ng/dL (0.58-1.64) 12/09/20 18:28 Urine Color YELLOW 12/09/20 17:47 Urine Clarity HAZY (CLEAR) 12/09/20 17:47 Urine pH 5.5 PH (5.0-7.5) 12/09/20 17:47 Ur Specific [place] 1.025 (1.002-1.030) 12/09/20 17:47 Urine Protein TRACE mg/dL (NEGATIVE) 12/09/20 17:47 Urine Glucose (UA) NEGATIVE mg/dL (NEGATIVE) 12/09/20 17:47 Urine Ketones NEGATIVE mg/dL (NEGATIVE) 12/09/20 17:47 Urine Occult Blood TRACE-LYSE (NEGATIVE) 12/09/20 17:47 Urine Nitrite POSITIVE (NEGATIVE) H 12/09/20 17:47 Urine Bilirubin NEGATIVE (NEGATIVE) 12/09/20 17:47 Urine Urobilinogen 0.2 (NORMAL) E.U./dL (NORMAL) 12/09/20 17:47 Ur Leukocyte Esterase NEGATIVE (NEGATIVE) 12/09/20 17:47 Urine RBC 0-5 /HPF (0-5) 12/09/20 17:47 Urine WBC 4-5 /HPF (0-5) 12/09/20 17:47 Ur Squamous Epith Cells RARE Squamous (<= Few) 12/09/20 17:47 Urine Bacteria Many /HPF (None Seen) H 12/09/20 17:47 Urine Mucus Few Strands 12/09/20 17:47 Ur Microscopic Review INDICATED 12/09/20 17:47 Urine Culture Comments INDICATED 12/09/20 17:47 Nasal Adenovirus (PCR) NOT DETECTED 12/09/20 16:58 Nasal B. parapertussis DNA (PCR) NOT DETECTED 12/09/20 16:58 Nasal Coronavir 229E PCR NOT DETECTED 12/09/20 16:58 Nasal Coronavir HKU1 PCR NOT DETECTED 12/09/20 16:58 Nasal Coronavir NL63 PCR NOT DETECTED 12/09/20 16:58 Nasal Coronavir OC43 PCR NOT DETECTED 12/09/20 16:58 Nasal Enterovir/Rhinovir PCR NOT DETECTED 12/09/20 16:58 Nasal Influenza B PCR NOT DETECTED 12/09/20 16:58 Nasal Influenza A PCR NOT DETECTED 12/09/20 16:58 Nasal Parainfluen 1 PCR NOT DETECTED 12/09/20 16:58 Nasal Parainfluen 2 PCR NOT DETECTED 12/09/20 16:58 Nasal Parainfluen 3 PCR NOT DETECTED 12/09/20 16:58 Nasal Parainfluen 4 PCR NOT DETECTED 12/09/20 16:58 Nasal RSV (PCR) NOT DETECTED 12/09/20 16:58 Nasal B.pertussis DNA PCR NOT DETECTED 12/09/20 16:58 Nasal C.pneumoniae (PCR) NOT DETECTED 12/09/20 16:58 Jaya Human Metapneumo PCR NOT DETECTED 12/09/20 16:58 Nasal M.pneumoniae (PCR) NOT DETECTED 12/09/20 16:58 Nasal SARS-CoV-2 (PCR) NOT DETECTED 12/09/20 16:58 Salicylates < 6.0 mg/dL 12/09/20 18:28 Urine Opiates Screen NEGATIVE (NEGATIVE) 12/09/20 17:47 Ur Oxycodone Screen NEGATIVE (NEGATIVE) 12/09/20 17:47 Urine Methadone Screen NEGATIVE (NEGATIVE) 12/09/20 17:47 Ur Propoxyphene Screen NEGATIVE (NEGATIVE) 12/09/20 17:47 Acetaminophen < 10 ug/mL (10-30) L 12/09/20 18:28 Ur Barbiturates Screen NEGATIVE (NEGATIVE) 12/09/20 17:47 Ur Tricyclics Screen NEGATIVE (NEGATIVE) 12/09/20 17:47 Ur Phencyclidine Scrn NEGATIVE (NEGATIVE) 12/09/20 17:47 Ur Amphetamine Screen NEGATIVE (NEGATIVE) 12/09/20 17:47 U Methamphetamines Scrn NEGATIVE (NEGATIVE) 12/09/20 17:47 U Benzodiazepines Scrn NEGATIVE (NEGATIVE) 12/09/20 17:47 Urine Cocaine Screen NEGATIVE (NEGATIVE) 12/09/20 17:47 U Cannabinoids Screen NEGATIVE (NEGATIVE) 12/09/20 17:47 Ethyl Alcohol < 5.0 mg/dL 12/09/20 18:28
[2020-12-13] MEDS: PHENAZOPYRIDINE 100 MG TABLET PO SCH ×2 (13:41→21:22)
[2020-12-13 14:23] LABS: BILIRUBIN,URINE NEGATIVE (NEGATIVE); CLARITY,URINE CLEAR (CLEAR); GLUCOSE, URINE (UA) NEGATIVE (NEGATIVE); KETONES,URINE (UA) NEGATIVE (NEGATIVE); LEUKOCYTE ESTERASE, URINE MODERATE (NEGATIVE); NITRITE,URINE NEGATIVE (NEGATIVE); OCCULT BLOOD,URINE NEGATIVE (NEGATIVE); PROTEIN,URINE NEGATIVE (NEGATIVE); UROBILINOGEN,URINE 0.2 (NORMAL) E.U./dL (NORMAL)
[2020-12-13 14:40] LABS: BACTERIA,URINE Few /HPF (None Seen); RBC,URINE 0-5 /HPF (0-5); SQUAMOUS EPITHELIAL CELL,UR FEW Squamous (<= Few)
[2020-12-13] MEDS: levoFLOXacin 250 MG TABLET PO SCH (17:04)
[2020-12-13] MEDS: CHOLESTYRAMINE 4 GM PACKET PO SCH (21:22)
[2020-12-13] MEDS: ATORVASTATIN 40 MG TABLET PO SCH (21:22)
[2020-12-14] MEDS: oxyCODONE 5 MG TABLET PO PRN ×5 (04:19→20:57)
[2020-12-14] MEDS: PHENAZOPYRIDINE 100 MG TABLET PO SCH ×3 (05:58→21:26)
[2020-12-14] MEDS: LEVOTHYROXINE 25 MCG TABLET PO SCH (05:58)
[2020-12-14 06:10] LABS: BASOPHILS # (AUTO) 0.1 10^3/uL (0.0-0.1); BASOPHILS % (AUTO) 0.9 %; EOSINOPHILS # (AUTO) 0.3 10^3/uL (0.0-0.7); EOSINOPHILS % (AUTO) 2.5 %; HCT - HEMATOCRIT 41.1 % (37.0-47.0); HGB - HEMOGLOBIN 13.4 g/dL (12.0-16.0); LYMPHOCYTES # (AUTO) 2.7 10^3/uL (1.5-3.5); LYMPHOCYTES % (AUTO) 25.1 %; MEAN CORPUSCULAR HEMOGLOBIN 30.7 pg (27.0-31.0); MEAN CORPUSCULAR HGB CONC 32.6 g/dL (32.0-36.0); MEAN CORPUSCULAR VOLUME 94.3 fL (81.0-99.0); MEAN PLATELET VOLUME 10.5 fL (7.9-10.8); MONOCYTES # (AUTO) 0.8 10^3/uL (0.0-1.0); NEUTROPHILS # (AUTO) 6.9 10^3/uL (1.5-6.6); NEUTROPHILS % (AUTO) 64.1 %; PLT - PLATELET COUNT 276 10^3/uL (130-450); RED BLOOD COUNT 4.36 10^6/uL (4.20-5.40); RED CELL DISTRIBUTION WIDTH 14.3 % (12.0-15.0); WHITE BLOOD COUNT 10.7 x10^3/uL (4.8-10.8)
[2020-12-14 06:18] LABS: CALCIUM 9.1 mg/dL (8.5-10.3); CREATININE 0.9 mg/dL (0.4-1.0); MAGNESIUM 2.1 mg/dL (1.7-2.8); POTASSIUM 3.9 mmol/L (3.5-5.0)
[2020-12-14] MEDS: CLOPIDOGREL 75 MG TABLET PO SCH (08:11)
[2020-12-14] MEDS: ENOXAPARIN 40 MG/0.4 ML SYRINGE SUBQ SCH (08:11)
[2020-12-14] MEDS: levETIRAcetam 250 MG TABLET PO SCH ×2 (08:11→21:24)
[2020-12-14] MEDS: CLOBETASOL 0.05% OINT 15 GM TUBE TOP SCH ×2 (08:11→21:24)
[2020-12-14] MEDS: METOPROLOL SUCCINATE 25 MG TABLET PO SCH ×2 (08:11→21:24)
[2020-12-14] MEDS: BACLOFEN 10 MG TABLET PO SCH ×4 (08:11→21:24)
[2020-12-14] MEDS: levoFLOXacin 250 MG TABLET PO SCH (08:11)
[2020-12-14] MEDS: polyethylene glycoL 3350 17 GM PACKET PO SCH (08:12)
[2020-12-14] MEDS: SODIUM CHLORIDE FLUSH 0.9% 10 ML SYRINGE IVP SCH ×3 (08:12→23:22)
--- NOTE | 2020-12-14 12:49 | PROVIDER PROGRESS NOTE ---
Assessment/Plan - Problem List (1) Altered mental status Qualifiers: Altered mental status type: disorientation Qualified Code(s): R41.0 - Disorientation, unspecified Assessment/Plan: This is her 5th admission with AMS, which is from dehydration/ UTI/ possibly unwitnessed seizures. Suspect this is related to dehydration given she improved with IV fluids. She may have had a seizure although she reports they have been controlled on Keppra. Will recommend an outpatient EEG. (2) UTI (urinary tract infection) Qualifiers: Urinary tract infection type: acute cystitis Hematuria presence: without hematuria Qualified Code(s): N30.00 - Acute cystitis without hematuria Assessment/Plan: She had no reported symptoms at admission, probably due to her altered mental status. But it was suspected that her elevated white count initially and lactic acid were related to dehydration and not infection. However, the admission u rine culture and sensitivities, grew Klebsiella pneumonia. Yesterday she voiced symptoms of urinary burning, itching and pain. We recheck a UA yesterday and it was abnormal, thus we started daily oral Levaquin yesterday and Pyridium. Today the U/A obtained yesterday is already growing a Gram neg [place]. Will await final cx results. (3) Seizure disorder Impression: Although she reports her seizures have been well controlled, we wonder if she may be having seizures at home which lead to these hospitalizations. We will continue her on Keppra and have recommended she follow-up with her neurologist for an outpatient EEG. Our question for him is to see what the plan is regarding her seizures and multiple sclerosis and to ensure that she has follow-up for potential EEG. Her next scheduled appointment is December 14 at 8:15 AM but we are worried she may potentially miss this if we are still working on disposition. (4) Psoriasis Impression: We have started her on clobetasol on December 11. (5) Hypothyroid Impression: Continue Synthroid. (6) Multiple sclerosis Impression: Continue baclofen. She will continue to follow-up with her neurologist on an outpatient basis. (7) Physical deconditioning Impression: She is quite deconditioned and the plan [facility]. We are working closely with social work regarding placement. (8) Acute kidney injury Impression: Resolved. This was prerenal injury and resolved with IV fluids. (9) Elevated CK Impression: This was secondary to her being found down at home (rhabdomyolysis) and has resolved. (10) Acute metabolic encephalopathy Impression: This is resolved. - Current Meds Current Meds: Current Medications Generic Name Dose Route Start Last Admin Trade Name Freq PRN Reason Stop Dose Admin Acetaminophen 650 mg 12/09/20 19:10 12/13/20 17:40 Acetaminophen 325 Mg Tablet PO 650 mg Q4HR PRN Administration Pain 1 to 4 Atorvastatin Calcium 40 mg 12/10/20 21:00 12/13/20 21:22 Atorvastatin 40 Mg Tablet PO 40 mg QPM JIN Administration Baclofen 10 mg 12/10/20 21:00 12/14/20 08:11 Baclofen 10 Mg Tablet PO 10 mg QID JIN Administration Cholestyramine/Sucrose 4 gm 12/10/20 21:00 12/13/20 21:22 Cholestyramine 4 Gm Packet PO 4 gm QPM JIN Administration Clobetasol Propionate 1 applic 12/11/20 11:00 12/14/20 08:11 Clobetasol 0.05% Oint 15 Gm Tube TOP 1 applic BID JIN Administration Clopidogrel Bisulfate 75 mg 12/10/20 09:00 12/14/20 08:11 Clopidogrel 75 Mg Tablet PO 75 mg DAILY JIN Administration Enoxaparin Sodium 40 mg 12/10/20 09:00 12/14/20 08:11 Enoxaparin 40 Mg/0.4 Ml Syringe SUBQ 40 mg DAILY JIN Administration Levetiracetam 500 mg 12/10/20 09:00 12/14/20 08:11 Levetiracetam 250 Mg Tablet PO 500 mg BID JIN Administration Levofloxacin 250 mg 12/13/20 16:09 12/14/20 08:11 Levofloxacin 250 Mg Tablet PO 12/15/20 09:01 250 mg DAILY JIN Administration Levothyroxine Sodium 50 mcg 12/10/20 11:00 12/14/20 05:58 Levothyroxine 25 Mcg Tablet PO 50 mcg QDAC JIN Administration Metoprolol Succinate 25 mg 12/11/20 21:00 12/14/20 08:11 Metoprolol Succinate 25 Mg Tablet PO 25 mg BID JIN Administration Oxycodone HCl 5 mg 12/11/20 11:20 12/14/20 12:44 Oxycodone 5 Mg Tablet PO 5 mg Q4HR PRN Administration PAIN Phenazopyridine HCl 100 mg 12/13/20 14:00 12/14/20 05:58 Phenazopyridine 100 Mg Tablet PO 100 mg TID JIN Administration Polyethylene Glycol 17 gm 12/14/20 09:00 12/14/20 08:12 Polyethylene Glycol 3350 17 Gm Packet PO 17 gm DAILY JIN Administration Sodium Chloride 10 ml 12/09/20 19:10 12/10/20 00:04 Sodium Chloride Flush 0.9% 10 Ml Syringe IVP 10 ml PRN PRN Administration NEEDED PER PROVIDER ORDERS Sodium Chloride 10 ml 12/10/20 01:00 12/14/20 08:12 Sodium Chloride Flush 0.9% 10 Ml Syringe IVP 10 ml 0100,0900,1700 JIN Administration - Lab Result Fish Bone Diagrams: 12/14/20 05:05 12/14/20 05:05 - Additional Planning My Orders: My Active Orders 12/13/20 14:00 Phenazopyridine [Pyridium] 100 mg PO TID 12/13/20 16:09 levoFLOXacin [Levaquin] 250 mg PO DAILY 12/14/20 10:15 Orthostatic [Vital Signs - Orthostatic] [RC] DAILY 12/14/20 10:16 Miscellaenous Nursing Order [RC] ONCE Subjective - Subjective Patient Reports: Other (Dizziy when walking to bathroom) Objective Vital Signs: Vital Signs - 24 hr 12/13/20 12/13/20 12/13/20 15:44 20:56 20:59 Temperature 36.5 C 36.5 C Heart Rate [ 74 81 Brachial] Respiratory 16 16 Rate Blood Pressure 111/70 95/61 [Left Brachial artery] Blood Pressure [Right Brachial artery] O2 Saturation 96 94 12/14/20 12/14/20 12/14/20 00:00 04:20 07:54 Temperature 36.7 C 36.5 C 36.5 C Heart Rate [ 76 76 76 Brachial] Respiratory 18 16 20 Rate Blood Pressure 119/75 92/77 [Left Brachial artery] Blood Pressure 106/71 [Right Brachial artery] O2 Saturation 93 94 95 12/14/20 12:27 Temperature 36.4 C L Heart Rate [ 85 Brachial] Respiratory 16 Rate Blood Pressure [Left Brachial artery] Blood Pressure 112/60 [Right Brachial artery] O2 Saturation 95 Oxygen O2 Source [Without Activity] Room air O2 Source Room air I&O (Last 24 Hrs): Intake and Output Totals x24h 12/12/20 12/13/20 12/14/20 23:59 23:59 23:59 Intake Total 940 1220 460 Output Total 1999 0030 780 Balance -1060 -230 -15 General: Alert, Oriented x3 HEENT: Mucous membr. moist/pink Neck: Supple, No JVD Neuro: Alert, Non Focal Cardiovascular: Regular rate, No murmurs Respiratory: No respiratory distress, Breath sounds nml Abdomen: Normal bowel sounds, Soft Extremities: No edema - Results Results: Laboratory Results WBC 10.7 x10^3/uL (4.8-10.8) 12/14/20 05:05 RBC 4.36 10^6/uL (4.20-5.40) 12/14/20 05:05 Hgb 13.4 g/dL (12.0-16.0) 12/14/20 05:05 Hct 41.1 % (37.0-47.0) 12/14/20 05:05 MCV 94.3 fL (81.0-99.0) 12/14/20 05:05 MCH 30.7 pg (27.0-31.0) 12/14/20 05:05 MCHC 32.6 g/dL (32.0-36.0) 12/14/20 05:05 RDW 14.3 % (12.0-15.0) 12/14/20 05:05 Plt Count 276 10^3/uL (130-450) 12/14/20 05:05 MPV 10.5 fL (7.9-10.8) 12/14/20 05:05 Neut # (Auto) 6.9 10^3/uL (1.5-6.6) H 12/14/20 05:05 Lymph # (Auto) 2.7 10^3/uL (1.5-3.5) 12/14/20 05:05 [place] # (Auto) 0.8 10^3/uL (0.0-1.0) 12/14/20 05:05 Eos # (Auto) 0.3 10^3/uL (0.0-0.7) 12/14/20 05:05 Baso # (Auto) 0.1 10^3/uL (0.0-0.1) 12/14/20 05:05 Absolute Nucleated RBC 0.00 x10^3/uL 12/14/20 05:05 Nucleated RBC % 0.0 /100WBC 12/14/20 05:05 Sodium 135 mmol/L (135-145) 12/14/20 05:05 Potassium 3.9 mmol/L (3.5-5.0) 12/14/20 05:05 Chloride 103 mmol/L (101-111) 12/14/20 05:05 Carbon Dioxide 21 mmol/L (21-32) 12/14/20 05:05 Anion Gap 11.0 (6-13) 12/14/20 05:05 BUN 19 mg/dL (6-20) 12/14/20 05:05 Creatinine 0.9 mg/dL (0.4-1.0) 12/14/20 05:05 Estimated GFR (MDRD) 63 (>89) L 12/14/20 05:05 Glucose 168 mg/dL (70-100) H 12/14/20 05:05 Estimat Average Glucose 128 mg/dL (70-100) H 12/10/20 05:04 Hemoglobin A1c % 6.1 % (4.27-6.07) H 12/10/20 05:04 Lactic Acid 1.0 mmol/L (0.5-2.2) 12/10/20 07:49 Calcium 9.1 mg/dL (8.5-10.3) 12/14/20 05:05 Magnesium 2.1 mg/dL (1.7-2.8) 12/14/20 05:05 Total Bilirubin 0.8 mg/dL (0.2-1.0) 12/09/20 18:28 AST 28 IU/L (10-42) 12/09/20 18:28 ALT 19 IU/L (10-60) 12/09/20 18:28 Alkaline Phosphatase 92 IU/L (42-121) 12/09/20 18:28 Total Creatine Kinase 105 IU/L (22-269) 12/14/20 05:05 Troponin I High Sens 15.9 ng/L (2.3-14.8) H* 12/10/20 05:04 Total Protein 7.8 g/dL (6.7-8.2) 12/09/20 18:28 Albumin 4.2 g/dL (3.2-5.5) 12/09/20 18:28 Globulin 3.6 g/dL (2.1-4.2) 12/09/20 18:28 Albumin/Globulin Ratio 1.2 (1.0-2.2) 12/09/20 18:28 Lipase 28 U/L (22-51) 12/09/20 18:28 TSH 0.82 uIU/mL (0.34-5.60) 12/09/20 18:28 Free T4 0.73 ng/dL (0.58-1.64) 12/09/20 18:28 Urine Color YELLOW 12/13/20 11:20 Urine Clarity CLEAR (CLEAR) 12/13/20 11:20 Urine pH 6.0 PH (5.0-7.5) 12/13/20 11:20 Ur Specific [place] 1.020 (1.002-1.030) 12/13/20 11:20 Urine Protein NEGATIVE mg/dL (NEGATIVE) 12/13/20 11:20 Urine Glucose (UA) NEGATIVE mg/dL (NEGATIVE) 12/13/20 11:20 Urine Ketones NEGATIVE mg/dL (NEGATIVE) 12/13/20 11:20 Urine Occult Blood NEGATIVE (NEGATIVE) 12/13/20 11:20 Urine Nitrite NEGATIVE (NEGATIVE) 12/13/20 11:20 Urine Bilirubin NEGATIVE (NEGATIVE) 12/13/20 11:20 Urine Urobilinogen 0.2 (NORMAL) E.U./dL (NORMAL) 12/13/20 11:20 Ur Leukocyte Esterase MODERATE (NEGATIVE) H 12/13/20 11:20 Urine RBC 0-5 /HPF (0-5) 12/13/20 11:20 Urine WBC 11-25 /HPF (0-5) H 12/13/20 11:20 Ur Squamous Epith Cells FEW Squamous (<= Few) 12/13/20 11:20 Urine Bacteria Few /HPF (None Seen) 12/13/20 11:20 Urine Mucus Few Strands 12/09/20 17:47 Ur Microscopic Review INDICATED 12/09/20 17:47 Urine Culture Comments INDICATED 12/13/20 11:20 Nasal Adenovirus (PCR) NOT DETECTED 12/09/20 16:58 Nasal B. parapertussis DNA (PCR) NOT DETECTED 12/09/20 16:58 Nasal Coronavir 229E PCR NOT DETECTED 12/09/20 16:58 Nasal Coronavir HKU1 PCR NOT DETECTED 12/09/20 16:58 Nasal Coronavir NL63 PCR NOT DETECTED 12/09/20 16:58 Nasal Coronavir OC43 PCR NOT DETECTED 12/09/20 16:58 Nasal Enterovir/Rhinovir PCR NOT DETECTED 12/09/20 16:58 Nasal Influenza B PCR NOT DETECTED 12/09/20 16:58 Nasal Influenza A PCR NOT DETECTED 12/09/20 16:58 Nasal Parainfluen 1 PCR NOT DETECTED 12/09/20 16:58 Nasal Parainfluen 2 PCR NOT DETECTED 12/09/20 16:58 Nasal Parainfluen 3 PCR NOT DETECTED 12/09/20 16:58 Nasal Parainfluen 4 PCR NOT DETECTED 12/09/20 16:58 Nasal RSV (PCR) NOT DETECTED 12/09/20 16:58 Nasal B.pertussis DNA PCR NOT DETECTED 12/09/20 16:58 Nasal C.pneumoniae (PCR) NOT DETECTED 12/09/20 16:58 Jaya Human Metapneumo PCR NOT DETECTED 12/09/20 16:58 Nasal M.pneumoniae (PCR) NOT DETECTED 12/09/20 16:58 Nasal SARS-CoV-2 (PCR) NOT DETECTED 12/09/20 16:58 Salicylates < 6.0 mg/dL 12/09/20 18:28 Urine Opiates Screen NEGATIVE (NEGATIVE) 12/09/20 17:47 Ur Oxycodone Screen NEGATIVE (NEGATIVE) 12/09/20 17:47 Urine Methadone Screen NEGATIVE (NEGATIVE) 12/09/20 17:47 Ur Propoxyphene Screen NEGATIVE (NEGATIVE) 12/09/20 17:47 Acetaminophen < 10 ug/mL (10-30) L 12/09/20 18:28 Ur Barbiturates Screen NEGATIVE (NEGATIVE) 12/09/20 17:47 Ur Tricyclics Screen NEGATIVE (NEGATIVE) 12/09/20 17:47 Ur Phencyclidine Scrn NEGATIVE (NEGATIVE) 12/09/20 17:47 Ur Amphetamine Screen NEGATIVE (NEGATIVE) 12/09/20 17:47 U Methamphetamines Scrn NEGATIVE (NEGATIVE) 12/09/20 17:47 U Benzodiazepines Scrn NEGATIVE (NEGATIVE) 12/09/20 17:47 Urine Cocaine Screen NEGATIVE (NEGATIVE) 12/09/20 17:47 U Cannabinoids Screen NEGATIVE (NEGATIVE) 12/09/20 17:47 Ethyl Alcohol < 5.0 mg/dL 12/09/20 18:28
[2020-12-14] MEDS: ATORVASTATIN 40 MG TABLET PO SCH (21:24)
[2020-12-14] MEDS: CHOLESTYRAMINE 4 GM PACKET PO SCH (21:24)
[2020-12-15] MEDS: oxyCODONE 5 MG TABLET PO PRN ×5 (01:10→19:54)
[2020-12-15] MEDS: LEVOTHYROXINE 25 MCG TABLET PO SCH (06:05)
[2020-12-15] MEDS: PHENAZOPYRIDINE 100 MG TABLET PO SCH ×3 (06:05→21:02)
[2020-12-15] MEDS: ACETAMINOPHEN 325 MG TABLET PO PRN ×2 (08:52→19:54)
[2020-12-15] MEDS: METOPROLOL SUCCINATE 25 MG TABLET PO SCH ×2 (08:52→21:03)
[2020-12-15] MEDS: BACLOFEN 10 MG TABLET PO SCH ×4 (08:52→21:04)
[2020-12-15] MEDS: levoFLOXacin 250 MG TABLET PO SCH (08:53)
[2020-12-15] MEDS: CLOPIDOGREL 75 MG TABLET PO SCH (08:53)
[2020-12-15] MEDS: levETIRAcetam 250 MG TABLET PO SCH ×2 (08:53→21:03)
[2020-12-15] MEDS: ENOXAPARIN 40 MG/0.4 ML SYRINGE SUBQ SCH (08:53)
[2020-12-15] MEDS: SENNA 8.6 MG TABLET PO SCH (08:54)
[2020-12-15] MEDS: CLOBETASOL 0.05% OINT 15 GM TUBE TOP SCH ×2 (08:54→21:04)
[2020-12-15] MEDS: polyethylene glycoL 3350 17 GM PACKET PO SCH (08:56)
[2020-12-15] MEDS: SODIUM CHLORIDE FLUSH 0.9% 10 ML SYRINGE IVP SCH ×3 (08:56→23:40)
--- NOTE | 2020-12-15 14:54 | PROVIDER PROGRESS NOTE ---
Assessment/Plan - Problem List (1) UTI (urinary tract infection) Qualifiers: Urinary tract infection type: acute cystitis Hematuria presence: without hematuria Qualified Code(s): N30.00 - Acute cystitis without hematuria Assessment/Plan: For the last 2 days she had urinary burning and itching. Today she has urinary retention. Will order straight cath as needed. Her urinalysis repeat was abnormal and she was started Levaquin. The second urine culture is also growing Klebsiella as was the admission urine culture. (2) Seizure disorder Impression: Although she reports her seizures have been well controlled, we wonder if she may be having seizures at home which lead to these hospitalizations. We will continue her on Keppra and have recommended she follow-up with her neuro logist for an outpatient EEG. Our question for him is to see what the plan is regarding her seizures and multiple sclerosis and to ensure that she has follow- up for potential EEG. Her next scheduled appointment is December 14 at 8:15 AM but we are worried she may potentially miss this if we are still working on disposition. (3) Psoriasis Impression: We have started her on clobetasol on December 11. (4) Hypothyroid Impression: Continue Synthroid. (5) Multiple sclerosis Impression: Continue baclofen. She will continue to follow-up with her neurologist on an outpatient basis. (6) Physical deconditioning Impression: She is deconditioned and working with PT for rehab the plan is to go to a [facility]. (8) Acute kidney injury Impression: Resolved. This was prerenal injury and resolved with IV fluids. (9) Elevated CK Impression: This was secondary to her being found down at home (rhabdomyolysis) and has resolved. (10) Acute metabolic encephalopathy Impression: AMS has resolved. - Current Meds Current Meds: Current Medications Generic Name Dose Route Start Last Admin Trade Name Freq PRN Reason Stop Dose Admin Acetaminophen 650 mg 12/09/20 19:10 12/15/20 08:52 Acetaminophen 325 Mg Tablet PO 650 mg Q4HR PRN Administration Pain 1 to 4 Atorvastatin Calcium 40 mg 12/10/20 21:00 12/14/20 21:24 Atorvastatin 40 Mg Tablet PO 40 mg QPM JIN Administration Baclofen 10 mg 12/10/20 21:00 12/15/20 12:37 Baclofen 10 Mg Tablet PO 10 mg QID JIN Administration Clobetasol Propionate 1 applic 12/11/20 11:00 12/15/20 08:54 Clobetasol 0.05% Oint 15 Gm Tube TOP 1 applic BID JIN Administration Clopidogrel Bisulfate 75 mg 12/10/20 09:00 12/15/20 08:53 Clopidogrel 75 Mg Tablet PO 75 mg DAILY JIN Administration Enoxaparin Sodium 40 mg 12/10/20 09:00 12/15/20 08:53 Enoxaparin 40 Mg/0.4 Ml Syringe SUBQ 40 mg DAILY JIN Administration Levetiracetam 500 mg 12/10/20 09:00 12/15/20 08:53 Levetiracetam 250 Mg Tablet PO 500 mg BID JIN Administration Levothyroxine Sodium 50 mcg 12/10/20 11:00 12/15/20 06:05 Levothyroxine 25 Mcg Tablet PO 50 mcg QDAC JIN Administration Metoprolol Succinate 25 mg 12/11/20 21:00 12/15/20 08:52 Metoprolol Succinate 25 Mg Tablet PO Not Given BID JIN Oxycodone HCl 5 mg 12/11/20 11:20 12/15/20 14:22 Oxycodone 5 Mg Tablet PO 5 mg Q4HR PRN Administration PAIN Phenazopyridine HCl 100 mg 12/13/20 14:00 12/15/20 14:22 Phenazopyridine 100 Mg Tablet PO 100 mg TID JIN Administration Polyethylene Glycol 17 gm 12/14/20 09:00 12/15/20 08:56 Polyethylene Glycol 3350 17 Gm Packet PO 17 gm DAILY JIN Administration Senna 8.6 - 17.2 mg 12/15/20 09:00 12/15/20 08:54 Senna 8.6 Mg Tablet PO 17.2 mg DAILY JIN Administration Sodium Chloride 10 ml 12/09/20 19:10 12/10/20 00:04 Sodium Chloride Flush 0.9% 10 Ml Syringe IVP 10 ml PRN PRN Administration NEEDED PER PROVIDER ORDERS Sodium Chloride 10 ml 12/10/20 01:00 12/15/20 08:56 Sodium Chloride Flush 0.9% 10 Ml Syringe IVP 10 ml 0100,0900,1700 JIN Administration - Lab Result Fish Bone Diagrams: 12/14/20 05:05 12/14/20 05:05 Subjective - Subjective Patient Reports: Feeling Better, No Complaints (Was more engaging as she spoke today) Nursing Reports: Other (RN reports she has urinary retention: no urine output today and is scanning 400 cc in bladder) Objective Vital Signs: Vital Signs - 24 hr 12/14/20 12/14/20 12/14/20 15:52 20:08 23:20 Temperature 36.5 C 36.6 C 36.4 C L Heart Rate [ 73 80 76 Brachial] Respiratory 20 24 16 Rate Blood Pressure 92/62 113/59 L [Left Brachial artery] Blood Pressure [Left Radial artery] Blood Pressure 93/61 [Right Brachial artery] O2 Saturation 94 94 93 12/15/20 12/15/20 12/15/20 05:00 08:52 12:13 Temperature 36.4 C L 36.7 C 36.5 C Heart Rate [ 65 79 80 Brachial] Respiratory 16 17 19 Rate Blood Pressure [Left Brachial artery] Blood Pressure 107/45 L 104/61 115/64 [Left Radial artery] Blood Pressure [Right Brachial artery] O2 Saturation 96 91 L 92 Oxygen O2 Source [Without Activity] Room air O2 Source Room air I&O (Last 24 Hrs): Intake and Output Totals x24h 12/13/20 12/14/20 12/15/20 23:59 23:59 23:59 Intake Total 1220 900 700 Output Total 1450 725 150 Balance -230 175 550 General: Alert, Oriented x3 HEENT: Mucous membr. moist/pink Neck: Supple, No JVD Neuro: Alert, Non Focal, Other Cardiovascular: No murmurs Respiratory: No respiratory distress Abdomen: Soft Extremities: No edema - Results Results: Laboratory Results WBC 10.7 x10^3/uL (4.8-10.8) 12/14/20 05:05 RBC 4.36 10^6/uL (4.20-5.40) 12/14/20 05:05 Hgb 13.4 g/dL (12.0-16.0) 12/14/20 05:05 Hct 41.1 % (37.0-47.0) 12/14/20 05:05 MCV 94.3 fL (81.0-99.0) 12/14/20 05:05 MCH 30.7 pg (27.0-31.0) 12/14/20 05:05 MCHC 32.6 g/dL (32.0-36.0) 12/14/20 05:05 RDW 14.3 % (12.0-15.0) 12/14/20 05:05 Plt Count 276 10^3/uL (130-450) 12/14/20 05:05 MPV 10.5 fL (7.9-10.8) 12/14/20 05:05 Neut # (Auto) 6.9 10^3/uL (1.5-6.6) H 12/14/20 05:05 Lymph # (Auto) 2.7 10^3/uL (1.5-3.5) 12/14/20 05:05 [place] # (Auto) 0.8 10^3/uL (0.0-1.0) 12/14/20 05:05 Eos # (Auto) 0.3 10^3/uL (0.0-0.7) 12/14/20 05:05 Baso # (Auto) 0.1 10^3/uL (0.0-0.1) 12/14/20 05:05 Absolute Nucleated RBC 0.00 x10^3/uL 12/14/20 05:05 Nucleated RBC % 0.0 /100WBC 12/14/20 05:05 Sodium 135 mmol/L (135-145) 12/14/20 05:05 Potassium 3.9 mmol/L (3.5-5.0) 12/14/20 05:05 Chloride 103 mmol/L (101-111) 12/14/20 05:05 Carbon Dioxide 21 mmol/L (21-32) 12/14/20 05:05 Anion Gap 11.0 (6-13) 12/14/20 05:05 BUN 19 mg/dL (6-20) 12/14/20 05:05 Creatinine 0.9 mg/dL (0.4-1.0) 12/14/20 05:05 Estimated GFR (MDRD) 63 (>89) L 12/14/20 05:05 Glucose 168 mg/dL (70-100) H 12/14/20 05:05 Estimat Average Glucose 128 mg/dL (70-100) H 12/10/20 05:04 Hemoglobin A1c % 6.1 % (4.27-6.07) H 12/10/20 05:04 Lactic Acid 1.0 mmol/L (0.5-2.2) 12/10/20 07:49 Calcium 9.1 mg/dL (8.5-10.3) 12/14/20 05:05 Magnesium 2.1 mg/dL (1.7-2.8) 12/14/20 05:05 Total Bilirubin 0.8 mg/dL (0.2-1.0) 12/09/20 18:28 AST 28 IU/L (10-42) 12/09/20 18:28 ALT 19 IU/L (10-60) 12/09/20 18:28 Alkaline Phosphatase 92 IU/L (42-121) 12/09/20 18:28 Total Creatine Kinase 105 IU/L (22-269) 12/14/20 05:05 Troponin I High Sens 15.9 ng/L (2.3-14.8) H* 12/10/20 05:04 Total Protein 7.8 g/dL (6.7-8.2) 12/09/20 18:28 Albumin 4.2 g/dL (3.2-5.5) 12/09/20 18:28 Globulin 3.6 g/dL (2.1-4.2) 12/09/20 18:28 Albumin/Globulin Ratio 1.2 (1.0-2.2) 12/09/20 18:28 Lipase 28 U/L (22-51) 12/09/20 18:28 TSH 0.82 uIU/mL (0.34-5.60) 12/09/20 18:28 Free T4 0.73 ng/dL (0.58-1.64) 12/09/20 18:28 Urine Color YELLOW 12/13/20 11:20 Urine Clarity CLEAR (CLEAR) 12/13/20 11:20 Urine pH 6.0 PH (5.0-7.5) 12/13/20 11:20 Ur Specific [place] 1.020 (1.002-1.030) 12/13/20 11:20 Urine Protein NEGATIVE mg/dL (NEGATIVE) 12/13/20 11:20 Urine Glucose (UA) NEGATIVE mg/dL (NEGATIVE) 12/13/20 11:20 Urine Ketones NEGATIVE mg/dL (NEGATIVE) 12/13/20 11:20 Urine Occult Blood NEGATIVE (NEGATIVE) 12/13/20 11:20 Urine Nitrite NEGATIVE (NEGATIVE) 12/13/20 11:20 Urine Bilirubin NEGATIVE (NEGATIVE) 12/13/20 11:20 Urine Urobilinogen 0.2 (NORMAL) E.U./dL (NORMAL) 12/13/20 11:20 Ur Leukocyte Esterase MODERATE (NEGATIVE) H 12/13/20 11:20 Urine RBC 0-5 /HPF (0-5) 12/13/20 11:20 Urine WBC 11-25 /HPF (0-5) H 12/13/20 11:20 Ur Squamous Epith Cells FEW Squamous (<= Few) 12/13/20 11:20 Urine Bacteria Few /HPF (None Seen) 12/13/20 11:20 Urine Mucus Few Strands 12/09/20 17:47 Ur Microscopic Review INDICATED 12/09/20 17:47 Urine Culture Comments INDICATED 12/13/20 11:20 Nasal Adenovirus (PCR) NOT DETECTED 12/09/20 16:58 Nasal B. parapertussis DNA (PCR) NOT DETECTED 12/09/20 16:58 Nasal Coronavir 229E PCR NOT DETECTED 12/09/20 16:58 Nasal Coronavir HKU1 PCR NOT DETECTED 12/09/20 16:58 Nasal Coronavir NL63 PCR NOT DETECTED 12/09/20 16:58 Nasal Coronavir OC43 PCR NOT DETECTED 12/09/20 16:58 Nasal Enterovir/Rhinovir PCR NOT DETECTED 12/09/20 16:58 Nasal Influenza B PCR NOT DETECTED 12/09/20 16:58 Nasal Influenza A PCR NOT DETECTED 12/09/20 16:58 Nasal Parainfluen 1 PCR NOT DETECTED 12/09/20 16:58 Nasal Parainfluen 2 PCR NOT DETECTED 12/09/20 16:58 Nasal Parainfluen 3 PCR NOT DETECTED 12/09/20 16:58 Nasal Parainfluen 4 PCR NOT DETECTED 12/09/20 16:58 Nasal RSV (PCR) NOT DETECTED 12/09/20 16:58 Nasal B.pertussis DNA PCR NOT DETECTED 12/09/20 16:58 Nasal C.pneumoniae (PCR) NOT DETECTED 12/09/20 16:58 Jaya Human Metapneumo PCR NOT DETECTED 12/09/20 16:58 Nasal M.pneumoniae (PCR) NOT DETECTED 12/09/20 16:58 Nasal SARS-CoV-2 (PCR) NOT DETECTED 12/09/20 16:58 Salicylates < 6.0 mg/dL 12/09/20 18:28 Urine Opiates Screen NEGATIVE (NEGATIVE) 12/09/20 17:47 Ur Oxycodone Screen NEGATIVE (NEGATIVE) 12/09/20 17:47 Urine Methadone Screen NEGATIVE (NEGATIVE) 12/09/20 17:47 Ur Propoxyphene Screen NEGATIVE (NEGATIVE) 12/09/20 17:47 Acetaminophen < 10 ug/mL (10-30) L 12/09/20 18:28 Ur Barbiturates Screen NEGATIVE (NEGATIVE) 12/09/20 17:47 Ur Tricyclics Screen NEGATIVE (NEGATIVE) 12/09/20 17:47 Ur Phencyclidine Scrn NEGATIVE (NEGATIVE) 12/09/20 17:47 Ur Amphetamine Screen NEGATIVE (NEGATIVE) 12/09/20 17:47 U Methamphetamines Scrn NEGATIVE (NEGATIVE) 12/09/20 17:47 U Benzodiazepines Scrn NEGATIVE (NEGATIVE) 12/09/20 17:47 Urine Cocaine Screen NEGATIVE (NEGATIVE) 12/09/20 17:47 U Cannabinoids Screen NEGATIVE (NEGATIVE) 12/09/20 17:47 Ethyl Alcohol < 5.0 mg/dL 12/09/20 18:28
[2020-12-15] MEDS: ATORVASTATIN 40 MG TABLET PO SCH (21:03)
[2020-12-16] MEDS: oxyCODONE 5 MG TABLET PO PRN ×6 (00:11→20:48)
[2020-12-16] MEDS: ACETAMINOPHEN 325 MG TABLET PO PRN ×4 (04:02→16:55)
[2020-12-16] MEDS: PHENAZOPYRIDINE 100 MG TABLET PO SCH ×3 (08:07→20:48)
[2020-12-16] MEDS: LEVOTHYROXINE 25 MCG TABLET PO SCH (08:08)
[2020-12-16] MEDS: BACLOFEN 10 MG TABLET PO SCH ×4 (08:15→20:48)
[2020-12-16] MEDS: CLOPIDOGREL 75 MG TABLET PO SCH (08:15)
[2020-12-16] MEDS: DOCUSATE SODIUM 250 MG CAPSULE PO SCH (08:16)
[2020-12-16] MEDS: levETIRAcetam 250 MG TABLET PO SCH ×2 (08:18→20:48)
[2020-12-16] MEDS: ENOXAPARIN 40 MG/0.4 ML SYRINGE SUBQ SCH (08:18)
[2020-12-16] MEDS: METOPROLOL SUCCINATE 25 MG TABLET PO SCH ×2 (08:19→20:48)
[2020-12-16] MEDS: SODIUM CHLORIDE FLUSH 0.9% 10 ML SYRINGE IVP SCH ×2 (08:19→16:56)
[2020-12-16] MEDS: SENNA 8.6 MG TABLET PO SCH (08:19)
[2020-12-16] MEDS: CLOBETASOL 0.05% OINT 15 GM TUBE TOP SCH ×2 (08:27→20:48)
[2020-12-16] MEDS: polyethylene glycoL 3350 17 GM PACKET PO SCH (08:28)
--- NOTE | 2020-12-16 14:28 | PROVIDER PROGRESS NOTE ---
Assessment/Plan - Problem List (1) UTI (urinary tract infection) Qualifiers: Urinary tract infection type: acute cystitis Hematuria presence: without hematuria Qualified Code(s): N30.00 - Acute cystitis without hematuria Assessment/Plan: For the previous 2 days she had urinary burning and itching. Yesterday she has urinary retention. Will order straight cath as needed. Her urinalysis repeat was abnormal and she was started Levaquin several days ago. The second urine culture is also growing Klebsiella, as was the admission urine culture, AND growing Enterococcus faecalis. Both are sensitive to Levaquin (2) Seizure disorder Assessment/Plan: This is her fifth hospital admission after being found down and confused. She lives alone. Although she reported that her seizures have been well controlled, we wonder if she may be having seizures at home which lead to these hospitalizations. We will continue her on Keppra and have recommended she follow-up with her neurologist for an outpatient EEG. Our question for him is to see what the plan is regarding her seizures and multiple sclerosis and to ensure that she has follow-up for potential EEG. (3) Psoriasis Impression: We have started her on clobetasol on December 11. (4) Hypothyroid Impression: Continue Synthroid. (5) Multiple sclerosis Impression: Continue baclofen. She will continue to follow-up with her neurologist on an outpatient basis. (6) Physical deconditioning Impression: She is deconditioned and working with PT for rehab the plan is to go to a retirement facility. (7) Acute kidney injury Impression: Resolved. This was prerenal injury and resolved with IV fluids. (8) Elevated CK Impression: This was secondary to her being found down at home (rhabdomyolysis) and has resolved. (9) Acute metabolic encephalopathy Impression: AMS has resolved. - Current Meds Current Meds: Current Medications Generic Name Dose Route Start Last Admin Trade Name Freq PRN Reason Stop Dose Admin Acetaminophen 650 mg 12/09/20 19:10 12/16/20 12:44 Acetaminophen 325 Mg Tablet PO 650 mg Q4HR PRN Administration Pain 1 to 4 Atorvastatin Calcium 40 mg 12/10/20 21:00 12/15/20 21:03 Atorvastatin 40 Mg Tablet PO 40 mg QPM JIN Administration Baclofen 10 mg 12/10/20 21:00 12/16/20 12:44 Baclofen 10 Mg Tablet PO 10 mg QID JIN Administration Clobetasol Propionate 1 applic 12/11/20 11:00 12/16/20 08:27 Clobetasol 0.05% Oint 15 Gm Tube TOP 1 applic BID JIN Administration Clopidogrel Bisulfate 75 mg 12/10/20 09:00 12/16/20 08:15 Clopidogrel 75 Mg Tablet PO 75 mg DAILY JIN Administration Docusate Sodium 250 - 500 mg 12/16/20 09:00 12/16/20 08:16 Docusate Sodium 250 Mg Capsule PO 250 mg DAILY JIN Administration Enoxaparin Sodium 40 mg 12/10/20 09:00 12/16/20 08:18 Enoxaparin 40 Mg/0.4 Ml Syringe SUBQ 40 mg DAILY JIN Administration Levetiracetam 500 mg 12/10/20 09:00 12/16/20 08:18 Levetiracetam 250 Mg Tablet PO 500 mg BID JIN Administration Levothyroxine Sodium 50 mcg 12/10/20 11:00 12/16/20 08:08 Levothyroxine 25 Mcg Tablet PO 50 mcg QDAC JIN Administration Metoprolol Succinate 25 mg 12/11/20 21:00 12/16/20 08:19 Metoprolol Succinate 25 Mg Tablet PO 25 mg BID JIN Administration Oxycodone HCl 5 mg 12/11/20 11:20 12/16/20 12:43 Oxycodone 5 Mg Tablet PO 5 mg Q4HR PRN Administration PAIN Phenazopyridine HCl 100 mg 12/13/20 14:00 12/16/20 12:48 Phenazopyridine 100 Mg Tablet PO 100 mg TID JIN Administration Polyethylene Glycol 17 gm 12/14/20 09:00 12/16/20 08:28 Polyethylene Glycol 3350 17 Gm Packet PO Not Given DAILY JIN Senna 8.6 - 17.2 mg 12/15/20 09:00 12/16/20 08:19 Senna 8.6 Mg Tablet PO 8.6 mg DAILY JIN Administration Sodium Chloride 10 ml 12/09/20 19:10 12/10/20 00:04 Sodium Chloride Flush 0.9% 10 Ml Syringe IVP 10 ml PRN PRN Administration NEEDED PER PROVIDER ORDERS Sodium Chloride 10 ml 12/10/20 01:00 12/16/20 08:19 Sodium Chloride Flush 0.9% 10 Ml Syringe IVP 10 ml 0100,0900,1700 JIN Administration - Lab Result Fish Bone Diagrams: 12/14/20 05:05 12/14/20 05:05 - Additional Planning My Orders: My Active Orders 12/15/20 14:55 Straight Catheter Insertion [RC] ONCE 12/16/20 09:00 Docusate Sodium 250Mg Capsule [Colace 250Mg Capsule] 250 - 500 mg PO DAILY 12/16/20 10:24 Miscellaenous Nursing Order [RC] QSHIFT 12/17/20 05:00 BMP - BASIC METABOLIC PANEL [CHEM] DAILYLAB CBC - COMP BLD CT W/AUTO DIFF [HEME] DAILYLAB Subjective - Subjective Patient Reports: Resting Comfortably Nursing Reports: Other (Kept insistimg to return to bed from being OOB in chair) Objective Vital Signs: Vital Signs - 24 hr 12/15/20 12/15/20 12/15/20 15:39 20:25 23:35 Temperature 36.5 C 36.7 C 37.0 C Heart Rate [ 77 79 70 Brachial] Respiratory 24 20 16 Rate Blood Pressure 110/65 109/54 L 100/54 L [Left Brachial artery] O2 Saturation 95 93 93 12/16/20 12/16/20 12/16/20 04:05 07:26 12:37 Temperature 36.5 C 36.8 C 36.4 C L Heart Rate [ 66 70 72 Brachial] Respiratory 18 18 19 Rate Blood Pressure 113/67 116/59 L 110/56 L [Left Brachial artery] O2 Saturation 92 93 91 L Oxygen O2 Source [Without Activity] Room air O2 Source Room air I&O (Last 24 Hrs): Intake and Output Totals x24h 12/14/20 12/15/20 12/16/20 23:59 23:59 23:59 Intake Total 900 1340 480 Output Total 725 150 100 Balance 175 1190 380 General: Alert, Oriented x3 HEENT: Mucous membr. moist/pink, Other (edentulous) Neck: Supple, No JVD Neuro: Non Focal Cardiovascular: Regular rate, No murmurs Respiratory: No respiratory distress, Breath sounds nml Abdomen: Normal bowel sounds, Soft Extremities: No edema - Results Results: Laboratory Results WBC 10.7 x10^3/uL (4.8-10.8) 12/14/20 05:05 RBC 4.36 10^6/uL (4.20-5.40) 12/14/20 05:05 Hgb 13.4 g/dL (12.0-16.0) 12/14/20 05:05 Hct 41.1 % (37.0-47.0) 12/14/20 05:05 MCV 94.3 fL (81.0-99.0) 12/14/20 05:05 MCH 30.7 pg (27.0-31.0) 12/14/20 05:05 MCHC 32.6 g/dL (32.0-36.0) 12/14/20 05:05 RDW 14.3 % (12.0-15.0) 12/14/20 05:05 Plt Count 276 10^3/uL (130-450) 12/14/20 05:05 MPV 10.5 fL (7.9-10.8) 12/14/20 05:05 Neut # (Auto) 6.9 10^3/uL (1.5-6.6) H 12/14/20 05:05 Lymph # (Auto) 2.7 10^3/uL (1.5-3.5) 12/14/20 05:05 [place] # (Auto) 0.8 10^3/uL (0.0-1.0) 12/14/20 05:05 Eos # (Auto) 0.3 10^3/uL (0.0-0.7) 12/14/20 05:05 Baso # (Auto) 0.1 10^3/uL (0.0-0.1) 12/14/20 05:05 Absolute Nucleated RBC 0.00 x10^3/uL 12/14/20 05:05 Nucleated RBC % 0.0 /100WBC 12/14/20 05:05 Sodium 135 mmol/L (135-145) 12/14/20 05:05 Potassium 3.9 mmol/L (3.5-5.0) 12/14/20 05:05 Chloride 103 mmol/L (101-111) 12/14/20 05:05 Carbon Dioxide 21 mmol/L (21-32) 12/14/20 05:05 Anion Gap 11.0 (6-13) 12/14/20 05:05 BUN 19 mg/dL (6-20) 12/14/20 05:05 Creatinine 0.9 mg/dL (0.4-1.0) 12/14/20 05:05 Estimated GFR (MDRD) 63 (>89) L 12/14/20 05:05 Glucose 168 mg/dL (70-100) H 12/14/20 05:05 Estimat Average Glucose 128 mg/dL (70-100) H 12/10/20 05:04 Hemoglobin A1c % 6.1 % (4.27-6.07) H 12/10/20 05:04 Lactic Acid 1.0 mmol/L (0.5-2.2) 12/10/20 07:49 Calcium 9.1 mg/dL (8.5-10.3) 12/14/20 05:05 Magnesium 2.1 mg/dL (1.7-2.8) 12/14/20 05:05 Total Bilirubin 0.8 mg/dL (0.2-1.0) 12/09/20 18:28 AST 28 IU/L (10-42) 12/09/20 18:28 ALT 19 IU/L (10-60) 12/09/20 18:28 Alkaline Phosphatase 92 IU/L (42-121) 12/09/20 18:28 Total Creatine Kinase 105 IU/L (22-269) 12/14/20 05:05 Troponin I High Sens 15.9 ng/L (2.3-14.8) H* 12/10/20 05:04 Total Protein 7.8 g/dL (6.7-8.2) 12/09/20 18:28 Albumin 4.2 g/dL (3.2-5.5) 12/09/20 18:28 Globulin 3.6 g/dL (2.1-4.2) 12/09/20 18:28 Albumin/Globulin Ratio 1.2 (1.0-2.2) 12/09/20 18:28 Lipase 28 U/L (22-51) 12/09/20 18:28 TSH 0.82 uIU/mL (0.34-5.60) 12/09/20 18:28 Free T4 0.73 ng/dL (0.58-1.64) 12/09/20 18:28 Urine Color YELLOW 12/13/20 11:20 Urine Clarity CLEAR (CLEAR) 12/13/20 11:20 Urine pH 6.0 PH (5.0-7.5) 12/13/20 11:20 Ur Specific [place] 1.020 (1.002-1.030) 12/13/20 11:20 Urine Protein NEGATIVE mg/dL (NEGATIVE) 12/13/20 11:20 Urine Glucose (UA) NEGATIVE mg/dL (NEGATIVE) 12/13/20 11:20 Urine Ketones NEGATIVE mg/dL (NEGATIVE) 12/13/20 11:20 Urine Occult Blood NEGATIVE (NEGATIVE) 12/13/20 11:20 Urine Nitrite NEGATIVE (NEGATIVE) 12/13/20 11:20 Urine Bilirubin NEGATIVE (NEGATIVE) 12/13/20 11:20 Urine Urobilinogen 0.2 (NORMAL) E.U./dL (NORMAL) 12/13/20 11:20 Ur Leukocyte Esterase MODERATE (NEGATIVE) H 12/13/20 11:20 Urine RBC 0-5 /HPF (0-5) 12/13/20 11:20 Urine WBC 11-25 /HPF (0-5) H 12/13/20 11:20 Ur Squamous Epith Cells FEW Squamous (<= Few) 12/13/20 11:20 Urine Bacteria Few /HPF (None Seen) 12/13/20 11:20 Urine Mucus Few Strands 12/09/20 17:47 Ur Microscopic Review INDICATED 12/09/20 17:47 Urine Culture Comments INDICATED 12/13/20 11:20 Nasal Adenovirus (PCR) NOT DETECTED 12/09/20 16:58 Nasal B. parapertussis DNA (PCR) NOT DETECTED 12/09/20 16:58 Nasal Coronavir 229E PCR NOT DETECTED 12/09/20 16:58 Nasal Coronavir HKU1 PCR NOT DETECTED 12/09/20 16:58 Nasal Coronavir NL63 PCR NOT DETECTED 12/09/20 16:58 Nasal Coronavir OC43 PCR NOT DETECTED 12/09/20 16:58 Nasal Enterovir/Rhinovir PCR NOT DETECTED 12/09/20 16:58 Nasal Influenza B PCR NOT DETECTED 12/09/20 16:58 Nasal Influenza A PCR NOT DETECTED 12/09/20 16:58 Nasal Parainfluen 1 PCR NOT DETECTED 12/09/20 16:58 Nasal Parainfluen 2 PCR NOT DETECTED 12/09/20 16:58 Nasal Parainfluen 3 PCR NOT DETECTED 12/09/20 16:58 Nasal Parainfluen 4 PCR NOT DETECTED 12/09/20 16:58 Nasal RSV (PCR) NOT DETECTED 12/09/20 16:58 Nasal B.pertussis DNA PCR NOT DETECTED 12/09/20 16:58 Nasal C.pneumoniae (PCR) NOT DETECTED 12/09/20 16:58 Jaya Human Metapneumo PCR NOT DETECTED 12/09/20 16:58 Nasal M.pneumoniae (PCR) NOT DETECTED 12/09/20 16:58 Nasal SARS-CoV-2 (PCR) NOT DETECTED 12/09/20 16:58 Salicylates < 6.0 mg/dL 12/09/20 18:28 Urine Opiates Screen NEGATIVE (NEGATIVE) 12/09/20 17:47 Ur Oxycodone Screen NEGATIVE (NEGATIVE) 12/09/20 17:47 Urine Methadone Screen NEGATIVE (NEGATIVE) 12/09/20 17:47 Ur Propoxyphene Screen NEGATIVE (NEGATIVE) 12/09/20 17:47 Acetaminophen < 10 ug/mL (10-30) L 12/09/20 18:28 Ur Barbiturates Screen NEGATIVE (NEGATIVE) 12/09/20 17:47 Ur Tricyclics Screen NEGATIVE (NEGATIVE) 12/09/20 17:47 Ur Phencyclidine Scrn NEGATIVE (NEGATIVE) 12/09/20 17:47 Ur Amphetamine Screen NEGATIVE (NEGATIVE) 12/09/20 17:47 U Methamphetamines Scrn NEGATIVE (NEGATIVE) 12/09/20 17:47 U Benzodiazepines Scrn NEGATIVE (NEGATIVE) 12/09/20 17:47 Urine Cocaine Screen NEGATIVE (NEGATIVE) 12/09/20 17:47 U Cannabinoids Screen NEGATIVE (NEGATIVE) 12/09/20 17:47 Ethyl Alcohol < 5.0 mg/dL 12/09/20 18:28
[2020-12-16] MEDS: ATORVASTATIN 40 MG TABLET PO SCH (20:48)
[2020-12-17] MEDS: SODIUM CHLORIDE FLUSH 0.9% 10 ML SYRINGE IVP SCH ×3 (00:53→16:56)
[2020-12-17] MEDS: ACETAMINOPHEN 325 MG TABLET PO PRN ×5 (00:53→22:14)
[2020-12-17] MEDS: oxyCODONE 5 MG TABLET PO PRN ×6 (00:53→22:14)
[2020-12-17] MEDS: PHENAZOPYRIDINE 100 MG TABLET PO SCH (05:08)
[2020-12-17 05:26] LABS: BASOPHILS # (AUTO) 0.1 10^3/uL (0.0-0.1); BASOPHILS % (AUTO) 1.5 %; EOSINOPHILS # (AUTO) 0.4 10^3/uL (0.0-0.7); EOSINOPHILS % (AUTO) 5.4 %; HCT - HEMATOCRIT 38.1 % (37.0-47.0); HGB - HEMOGLOBIN 12.2 g/dL (12.0-16.0); LYMPHOCYTES # (AUTO) 2.6 10^3/uL (1.5-3.5); LYMPHOCYTES % (AUTO) 32.8 %; MEAN CORPUSCULAR HEMOGLOBIN 30.7 pg (27.0-31.0); MEAN CORPUSCULAR VOLUME 95.7 fL (81.0-99.0); MEAN PLATELET VOLUME 10.8 fL (7.9-10.8); MONOCYTES # (AUTO) 0.8 10^3/uL (0.0-1.0); MONOCYTES % (AUTO) 10.1 %; NEUTROPHILS % (AUTO) 49.7 %; PLT - PLATELET COUNT 277 10^3/uL (130-450); RED BLOOD COUNT 3.98 10^6/uL (4.20-5.40); RED CELL DISTRIBUTION WIDTH 14.5 % (12.0-15.0)
[2020-12-17 05:33] LABS: CALCIUM 9.3 mg/dL (8.5-10.3); CREATININE 0.8 mg/dL (0.4-1.0); POTASSIUM 4.1 mmol/L (3.5-5.0)
[2020-12-17] MEDS: LEVOTHYROXINE 25 MCG TABLET PO SCH (06:16)
--- NOTE | 2020-12-17 08:34 | PROVIDER PROGRESS NOTE ---
Assessment/Plan - Problem List (1) Chronic low back pain Assessment/Plan: When I asked her how she felt she said "when do I get my next pain pill". Her pain is LBP she tells her RN. We will continue with narcotics so as not go through opioid withdrawal symptoms. (2) Opioid dependence Assessment/Plan: Her admission H&P states that she has opioid dependence. This could be the reason that she sometimes takes her meds inappropriately or falls and is found down on the ground by family and neighbors. This is her fifth admission with being found down. Yesterday this was the discussion with her COMPRESSION MOLDING MACHINE TENDER that was documented: "Patient stated Brief was wet, told her i was going to change her into a dry one and she stated "no, leave it". her brief was not changed as patient refused." We will continue with narcotics so she does not go through opioid withdrawal symptoms. We will order a cognitive eval to determine if she has the capacity to make decisions and whether an eventual return home is safe. Currently the plan is to go to SNF for PT rehab and then eventually return home where she lives alone. (3) UTI (urinary tract infection) Qualifiers: Urinary tract infection type: acute cystitis Hematuria presence: without hematuria Qualified Code(s): N30.00 - Acute cystitis without hematuria Assessment/Plan: She was not put on antibiotics at admission because it was felt that she did not have symptoms and just had asymptomatic bacteriuria. Then her urine culture grew Klebsiella. She was able to describe urinary burning and itching, 2 days after admission when her mentation improved. She also had urinary retention. She also is incontinent of urine. A repeat urinalysis was abnormal and she was started Levaquin several days ago for aq 3 day course in a female. The second urine culture is also growing Klebsiella AND growing Enterococcus faecalis. Both are sensitive to Levaquin (4) Seizure disorder Assessment/Plan: This is her fifth hospital admission after being found down and confused. She lives alone. Although she reported that her seizures have been well controlled, we wonder if she may be having seizures at home which lead to these hospitalizations. We will continue her on Keppra Will check a Keppra level (5) Physical deconditioning Impression: She is deconditioned and working with PT for rehab and the plan is to go to a senior living facility before she returns home. However, see #2 (6) Multiple sclerosis Impression: Continue baclofen. She will continue to follow-up with her neurologist on an outpatient basis. (7) Hypothyroid Impression: Continue Synthroid. (8) Psoriasis Impression: We have started her on clobetasol on December 11. (9) Acute kidney injury Impression: Resolved. This was prerenal injury and resolved with IV fluids. (10) Elevated CK Impression: This was secondary to her being found down at home (rhabdomyolysis) and has resolved. (11) Acute metabolic encephalopathy Impression: AMS has resolved. This is her fifth hospitalization for altered mental status. She did not remember that she presented here this time unconscious. Today the patient tells me that she still drives a car, makes her food "if she really needs to eat, but checks to see if she is really hungry" therefore usually she only eats 2 meals a day. A cognitive evaluation. Will complete the DMV form as driving is not advised. - Current Meds Current Meds: Current Medications Generic Name Dose Route Start Last Admin Trade Name Freq PRN Reason Stop Dose Admin Acetaminophen 650 mg 12/09/20 19:10 12/17/20 05:08 Acetaminophen 325 Mg Tablet PO 650 mg Q4HR PRN Administration Pain 1 to 4 Atorvastatin Calcium 40 mg 12/10/20 21:00 12/16/20 20:48 Atorvastatin 40 Mg Tablet PO 40 mg QPM JIN Administration Baclofen 10 mg 12/10/20 21:00 12/16/20 20:48 Baclofen 10 Mg Tablet PO 10 mg QID JIN Administration Clobetasol Propionate 1 applic 12/11/20 11:00 12/16/20 20:48 Clobetasol 0.05% Oint 15 Gm Tube TOP 1 applic BID JIN Administration Clopidogrel Bisulfate 75 mg 12/10/20 09:00 12/16/20 08:15 Clopidogrel 75 Mg Tablet PO 75 mg DAILY JIN Administration Docusate Sodium 250 - 500 mg 12/16/20 09:00 12/16/20 08:16 Docusate Sodium 250 Mg Capsule PO 250 mg DAILY JIN Administration Enoxaparin Sodium 40 mg 12/10/20 09:00 12/16/20 08:18 Enoxaparin 40 Mg/0.4 Ml Syringe SUBQ 40 mg DAILY JIN Administration Levetiracetam 500 mg 12/10/20 09:00 12/16/20 20:48 Levetiracetam 250 Mg Tablet PO 500 mg BID JIN Administration Levothyroxine Sodium 50 mcg 12/10/20 11:00 12/17/20 06:16 Levothyroxine 25 Mcg Tablet PO 50 mcg QDAC JIN Administration Metoprolol Succinate 25 mg 12/11/20 21:00 12/16/20 20:48 Metoprolol Succinate 25 Mg Tablet PO 25 mg BID JIN Administration Oxycodone HCl 5 mg 12/11/20 11:20 12/17/20 05:08 Oxycodone 5 Mg Tablet PO 5 mg Q4HR PRN Administration PAIN Phenazopyridine HCl 100 mg 12/13/20 14:00 12/17/20 05:08 Phenazopyridine 100 Mg Tablet PO 100 mg TID JIN Administration Polyethylene Glycol 17 gm 12/14/20 09:00 12/16/20 08:28 Polyethylene Glycol 3350 17 Gm Packet PO Not Given DAILY JIN Senna 8.6 - 17.2 mg 12/15/20 09:00 12/16/20 08:19 Senna 8.6 Mg Tablet PO 8.6 mg DAILY JIN Administration Sodium Chloride 10 ml 12/09/20 19:10 12/10/20 00:04 Sodium Chloride Flush 0.9% 10 Ml Syringe IVP 10 ml PRN PRN Administration NEEDED PER PROVIDER ORDERS Sodium Chloride 10 ml 12/10/20 01:00 12/17/20 00:53 Sodium Chloride Flush 0.9% 10 Ml Syringe IVP 10 ml 0100,0900,1700 JIN Administration - Lab Result Fish Bone Diagrams: 12/17/20 05:00 12/17/20 05:00 - Additional Planning My Orders: My Active Orders 12/16/20 09:00 Docusate Sodium 250Mg Capsule [Colace 250Mg Capsule] 250 - 500 mg PO DAILY 12/16/20 10:24 Miscellaenous Nursing Order [RC] QSHIFT 12/17/20 Evaluate and Treat OT [OT] Routine 12/17/20 05:00 LEVETIRACETAM (KEPPRA) LEVEL [REFLAB] Routine Subjective - Subjective Patient Reports: Resting Comfortably Nursing Reports: Other (Just sleeps and watches TV, wants the bedside commode brought back) Objective Vital Signs: Vital Signs - 24 hr 12/16/20 12/16/20 12/16/20 12:37 15:49 20:56 Temperature 36.4 C L 36.4 C L 36.4 C L Heart Rate [ 72 66 72 Brachial] Respiratory 19 18 18 Rate Blood Pressure 110/56 L 97/51 L [Left Brachial artery] Blood Pressure 104/48 L [Left Radial artery] Blood Pressure [Right Brachial artery] O2 Saturation 91 L 96 93 12/17/20 12/17/20 12/17/20 00:46 05:08 07:50 Temperature 36.3 C L 36.5 C 36.4 C L Heart Rate [ 72 68 66 Brachial] Respiratory 21 16 95 H Rate Blood Pressure 102/49 L [Left Brachial artery] Blood Pressure [Left Radial artery] Blood Pressure 109/71 [Right Brachial artery] O2 Saturation 96 93 17 L Oxygen O2 Source [Without Activity] Room air O2 Source Room air I&O (Last 24 Hrs): Intake and Output Totals x24h 12/15/20 12/16/20 12/17/20 23:59 23:59 23:59 Intake Total 1340 1066 Output Total 150 100 Balance 1190 966 General: Alert, Oriented x3 HEENT: Mucous membr. moist/pink, Other (Edentulous) Neck: Supple, No JVD Neuro: Alert, Non Focal Cardiovascular: Regular rate Respiratory: No respiratory distress Abdomen: Soft Extremities: No clubbing, No edema - Results Results: Laboratory Results WBC 8.0 x10^3/uL (4.8-10.8) 12/17/20 05:00 RBC 3.98 10^6/uL (4.20-5.40) L 12/17/20 05:00 Hgb 12.2 g/dL (12.0-16.0) 12/17/20 05:00 Hct 38.1 % (37.0-47.0) 12/17/20 05:00 MCV 95.7 fL (81.0-99.0) 12/17/20 05:00 MCH 30.7 pg (27.0-31.0) 12/17/20 05:00 MCHC 32.0 g/dL (32.0-36.0) 12/17/20 05:00 RDW 14.5 % (12.0-15.0) 12/17/20 05:00 Plt Count 277 10^3/uL (130-450) 12/17/20 05:00 MPV 10.8 fL (7.9-10.8) 12/17/20 05:00 Neut # (Auto) 4.0 10^3/uL (1.5-6.6) 12/17/20 05:00 Lymph # (Auto) 2.6 10^3/uL (1.5-3.5) 12/17/20 05:00 [place] # (Auto) 0.8 10^3/uL (0.0-1.0) 12/17/20 05:00 Eos # (Auto) 0.4 10^3/uL (0.0-0.7) 12/17/20 05:00 Baso # (Auto) 0.1 10^3/uL (0.0-0.1) 12/17/20 05:00 Absolute Nucleated RBC 0.00 x10^3/uL 12/17/20 05:00 Nucleated RBC % 0.0 /100WBC 12/17/20 05:00 Sodium 138 mmol/L (135-145) 12/17/20 05:00 Potassium 4.1 mmol/L (3.5-5.0) 12/17/20 05:00 Chloride 102 mmol/L (101-111) 12/17/20 05:00 Carbon Dioxide 24 mmol/L (21-32) 12/17/20 05:00 Anion Gap 12.0 (6-13) 12/17/20 05:00 BUN 23 mg/dL (6-20) H 12/17/20 05:00 Creatinine 0.8 mg/dL (0.4-1.0) 12/17/20 05:00 Estimated GFR (MDRD) 72 (>89) L 12/17/20 05:00 Glucose 98 mg/dL (70-100) 12/17/20 05:00 Estimat Average Glucose 128 mg/dL (70-100) H 12/10/20 05:04 Hemoglobin A1c % 6.1 % (4.27-6.07) H 12/10/20 05:04 Lactic Acid 1.0 mmol/L (0.5-2.2) 12/10/20 07:49 Calcium 9.3 mg/dL (8.5-10.3) 12/17/20 05:00 Magnesium 2.1 mg/dL (1.7-2.8) 12/14/20 05:05 Total Bilirubin 0.8 mg/dL (0.2-1.0) 12/09/20 18:28 AST 28 IU/L (10-42) 12/09/20 18:28 ALT 19 IU/L (10-60) 12/09/20 18:28 Alkaline Phosphatase 92 IU/L (42-121) 12/09/20 18:28 Total Creatine Kinase 105 IU/L (22-269) 12/14/20 05:05 Troponin I High Sens 15.9 ng/L (2.3-14.8) H* 12/10/20 05:04 Total Protein 7.8 g/dL (6.7-8.2) 12/09/20 18:28 Albumin 4.2 g/dL (3.2-5.5) 12/09/20 18:28 Globulin 3.6 g/dL (2.1-4.2) 12/09/20 18:28 Albumin/Globulin Ratio 1.2 (1.0-2.2) 12/09/20 18:28 Lipase 28 U/L (22-51) 12/09/20 18:28 TSH 0.82 uIU/mL (0.34-5.60) 12/09/20 18:28 Free T4 0.73 ng/dL (0.58-1.64) 12/09/20 18:28 Urine Color YELLOW 12/13/20 11:20 Urine Clarity CLEAR (CLEAR) 12/13/20 11:20 Urine pH 6.0 PH (5.0-7.5) 12/13/20 11:20 Ur Specific [place] 1.020 (1.002-1.030) 12/13/20 11:20 Urine Protein NEGATIVE mg/dL (NEGATIVE) 12/13/20 11:20 Urine Glucose (UA) NEGATIVE mg/dL (NEGATIVE) 12/13/20 11:20 Urine Ketones NEGATIVE mg/dL (NEGATIVE) 12/13/20 11:20 Urine Occult Blood NEGATIVE (NEGATIVE) 12/13/20 11:20 Urine Nitrite NEGATIVE (NEGATIVE) 12/13/20 11:20 Urine Bilirubin NEGATIVE (NEGATIVE) 12/13/20 11:20 Urine Urobilinogen 0.2 (NORMAL) E.U./dL (NORMAL) 12/13/20 11:20 Ur Leukocyte Esterase MODERATE (NEGATIVE) H 12/13/20 11:20 Urine RBC 0-5 /HPF (0-5) 12/13/20 11:20 Urine WBC 11-25 /HPF (0-5) H 12/13/20 11:20 Ur Squamous Epith Cells FEW Squamous (<= Few) 12/13/20 11:20 Urine Bacteria Few /HPF (None Seen) 12/13/20 11:20 Urine Mucus Few Strands 12/09/20 17:47 Ur Microscopic Review INDICATED 12/09/20 17:47 Urine Culture Comments INDICATED 12/13/20 11:20 Nasal Adenovirus (PCR) NOT DETECTED 12/09/20 16:58 Nasal B. parapertussis DNA (PCR) NOT DETECTED 12/09/20 16:58 Nasal Coronavir 229E PCR NOT DETECTED 12/09/20 16:58 Nasal Coronavir HKU1 PCR NOT DETECTED 12/09/20 16:58 Nasal Coronavir NL63 PCR NOT DETECTED 12/09/20 16:58 Nasal Coronavir OC43 PCR NOT DETECTED 12/09/20 16:58 Nasal Enterovir/Rhinovir PCR NOT DETECTED 12/09/20 16:58 Nasal Influenza B PCR NOT DETECTED 12/09/20 16:58 Nasal Influenza A PCR NOT DETECTED 12/09/20 16:58 Nasal Parainfluen 1 PCR NOT DETECTED 12/09/20 16:58 Nasal Parainfluen 2 PCR NOT DETECTED 12/09/20 16:58 Nasal Parainfluen 3 PCR NOT DETECTED 12/09/20 16:58 Nasal Parainfluen 4 PCR NOT DETECTED 12/09/20 16:58 Nasal RSV (PCR) NOT DETECTED 12/09/20 16:58 Nasal B.pertussis DNA PCR NOT DETECTED 12/09/20 16:58 Nasal C.pneumoniae (PCR) NOT DETECTED 12/09/20 16:58 Jaya Human Metapneumo PCR NOT DETECTED 12/09/20 16:58 Nasal M.pneumoniae (PCR) NOT DETECTED 12/09/20 16:58 Nasal SARS-CoV-2 (PCR) NOT DETECTED 12/09/20 16:58 Salicylates < 6.0 mg/dL 12/09/20 18:28 Urine Opiates Screen NEGATIVE (NEGATIVE) 12/09/20 17:47 Ur Oxycodone Screen NEGATIVE (NEGATIVE) 12/09/20 17:47 Urine Methadone Screen NEGATIVE (NEGATIVE) 12/09/20 17:47 Ur Propoxyphene Screen NEGATIVE (NEGATIVE) 12/09/20 17:47 Acetaminophen < 10 ug/mL (10-30) L 12/09/20 18:28 Ur Barbiturates Screen NEGATIVE (NEGATIVE) 12/09/20 17:47 Ur Tricyclics Screen NEGATIVE (NEGATIVE) 12/09/20 17:47 Ur Phencyclidine Scrn NEGATIVE (NEGATIVE) 12/09/20 17:47 Ur Amphetamine Screen NEGATIVE (NEGATIVE) 12/09/20 17:47 U Methamphetamines Scrn NEGATIVE (NEGATIVE) 12/09/20 17:47 U Benzodiazepines Scrn NEGATIVE (NEGATIVE) 12/09/20 17:47 Urine Cocaine Screen NEGATIVE (NEGATIVE) 12/09/20 17:47 U Cannabinoids Screen NEGATIVE (NEGATIVE) 12/09/20 17:47 Ethyl Alcohol < 5.0 mg/dL 12/09/20 18:28
[2020-12-17] MEDS: polyethylene glycoL 3350 17 GM PACKET PO SCH (09:10)
[2020-12-17] MEDS: CLOPIDOGREL 75 MG TABLET PO SCH (09:11)
[2020-12-17] MEDS: ENOXAPARIN 40 MG/0.4 ML SYRINGE SUBQ SCH (09:11)
[2020-12-17] MEDS: DOCUSATE SODIUM 250 MG CAPSULE PO SCH (09:11)
[2020-12-17] MEDS: METOPROLOL SUCCINATE 25 MG TABLET PO SCH ×2 (09:11→20:54)
[2020-12-17] MEDS: levETIRAcetam 250 MG TABLET PO SCH ×2 (09:11→20:54)
[2020-12-17] MEDS: BACLOFEN 10 MG TABLET PO SCH ×4 (09:11→20:55)
[2020-12-17] MEDS: CLOBETASOL 0.05% OINT 15 GM TUBE TOP SCH ×2 (09:12→20:57)
[2020-12-17] MEDS: SENNA 8.6 MG TABLET PO SCH (09:12)
[2020-12-17] MEDS: ATORVASTATIN 40 MG TABLET PO SCH (20:55)
[2020-12-18] MEDS: SODIUM CHLORIDE FLUSH 0.9% 10 ML SYRINGE IVP SCH ×3 (02:22→17:02)
[2020-12-18] MEDS: oxyCODONE 5 MG TABLET PO PRN ×5 (02:26→20:38)
[2020-12-18] MEDS: ACETAMINOPHEN 325 MG TABLET PO PRN ×4 (02:26→16:41)
[2020-12-18] MEDS: LEVOTHYROXINE 25 MCG TABLET PO SCH (07:06)
[2020-12-18] MEDS: levETIRAcetam 250 MG TABLET PO SCH ×2 (09:09→23:21)
[2020-12-18] MEDS: polyethylene glycoL 3350 17 GM PACKET PO SCH (09:09)
[2020-12-18] MEDS: BACLOFEN 10 MG TABLET PO SCH ×4 (09:09→23:21)
[2020-12-18] MEDS: SENNA 8.6 MG TABLET PO SCH (09:09)
[2020-12-18] MEDS: DOCUSATE SODIUM 250 MG CAPSULE PO SCH (09:10)
[2020-12-18] MEDS: CLOPIDOGREL 75 MG TABLET PO SCH (09:10)
[2020-12-18] MEDS: ENOXAPARIN 40 MG/0.4 ML SYRINGE SUBQ SCH (09:10)
[2020-12-18] MEDS: CLOBETASOL 0.05% OINT 15 GM TUBE TOP SCH ×2 (09:10→23:21)
[2020-12-18] MEDS: METOPROLOL SUCCINATE 25 MG TABLET PO SCH ×2 (09:10→23:21)
--- NOTE | 2020-12-18 15:19 | PROVIDER PROGRESS NOTE ---
Assessment/Plan - Problem List (1) Chronic low back pain Assessment/Plan: She is able to take part in PT We will continue with narcotics so as not go through opioid withdrawal symptoms. (2) Opioid dependence Assessment/Plan: Her admission H&P states that she has opioid dependence. This could be the reason that she sometimes takes her meds inappropriately or falls and is found down on the ground by family and neighbors. This is her fifth admission with being found down. This is her fifth hospitalization for altered mental status. She did not remember that she presented here this time unconscious. 2 days ago this was the discussion with her AFTERSCHOOL BABYSITTER that was documented: "Patient stated Brief was wet, told her i was going to change her into a dry one and she stated "no, leave it". her brief was not changed as patient refused." Yesterday the patient told me that she still drives a car, makes her food "if she really needs to eat, but first decides if she feel like standing up" therefore usually she only eats 2 meals a day. A cognitive evaluation has been ordered to be done by OT tomorrow (today is Saturday) A DMV form was complete since driving is not advised with her poor insight and 5 presentations obtunded. We will continue with narcotics so she does not go through opioid withdrawal symptoms. We will order a cognitive eval to determine if she has the capacity to make decisions and whether an eventual return home is safe. Currently the plan is to go to SNF for PT rehab and then either return home where she lives alone or stay at the SNF for detention care. This was offered to the pt yesterday and she is thinking about it. She has no DPOA. (3) UTI (urinary tract infection) Qualifiers: Urinary tract infection type: acute cystitis Hematuria presence: without hematuria Qualified Code(s): N30.00 - Acute cystitis without hematuria Assessment/Plan: She was not put on antibiotics at admission because it was felt that she did not have symptoms and just had asymptomatic bacteriuria. Then her urine culture grew Klebsiella. She was able to describe urinary burning and itching, 2 days after admission when her mentation improved. She also had urinary retention. She also is incontinent of urine. A repeat urinalysis was abnormal and she was started Levaquin several days ago for a 3 day course in a female. She has completed that course of treatment. The second urine culture also grew Klebsiella AND Enterococcus faecalis. Both were sensitive to Levaquin (4) Seizure disorder Assessment/Plan: This is her fifth hospital admission after being found down and confused. She lives alone. Although she reported that her seizures have been well controlled, we wonder if she may be having seizures at home which lead to these hospitalizations. We will continue her on Keppra Will check a Keppra level (5) Physical deconditioning Impression: She is deconditioned and working with PT for rehab and the plan is to go to a intermediate facility before she returns home. However, see #2 (6) Multiple sclerosis Impression: Continue baclofen. She will continue to follow-up with her neurologist on an outpatient basis. (7) Hypothyroid Impression: Continue Synthroid. (8) Psoriasis Impression: We have started her on clobetasol on December 11. (9) Acute kidney injury Impression: Resolved. This was prerenal injury and resolved with IV fluids. (10) Elevated CK Impression: This was secondary to her being found down at home (rhabdomyolysis) and has resolved. (11) Acute metabolic encephalopathy Impression: AMS has resolved. This is her fifth hospitalization for altered mental status. She did not remember that she presented here this time unconscious. Yesterday the patient told me that she still drives a car, makes her food "if she really needs to eat, but first decides if she feel like standing up" therefore usually she only eats 2 meals a day. A cognitive evaluation has been ordered to be done by OT tomorrow (today is Saturday) A DMV form was complete since driving is not advised with her poor insight and 5 presentations obtunded. - Current Meds Current Meds: Current Medications Generic Name Dose Route Start Last Admin Trade Name Freq PRN Reason Stop Dose Admin Acetaminophen 650 mg 12/09/20 19:10 12/18/20 11:45 Acetaminophen 325 Mg Tablet PO 650 mg Q4HR PRN Administration Pain 1 to 4 Atorvastatin Calcium 40 mg 12/10/20 21:00 12/17/20 20:55 Atorvastatin 40 Mg Tablet PO 40 mg QPM JIN Administration Baclofen 10 mg 12/10/20 21:00 12/18/20 13:57 Baclofen 10 Mg Tablet PO 10 mg QID JIN Administration Clobetasol Propionate 1 applic 12/11/20 11:00 12/18/20 09:10 Clobetasol 0.05% Oint 15 Gm Tube TOP Not Given BID JIN Clopidogrel Bisulfate 75 mg 12/10/20 09:00 12/18/20 09:10 Clopidogrel 75 Mg Tablet PO 75 mg DAILY JIN Administration Docusate Sodium 250 - 500 mg 12/16/20 09:00 12/18/20 09:10 Docusate Sodium 250 Mg Capsule PO 250 mg DAILY JIN Administration Enoxaparin Sodium 40 mg 12/10/20 09:00 12/18/20 09:10 Enoxaparin 40 Mg/0.4 Ml Syringe SUBQ 40 mg DAILY JIN Administration Levetiracetam 500 mg 12/10/20 09:00 12/18/20 09:09 Levetiracetam 250 Mg Tablet PO 500 mg BID JIN Administration Levothyroxine Sodium 50 mcg 12/10/20 11:00 12/18/20 07:06 Levothyroxine 25 Mcg Tablet PO 50 mcg QDAC JIN Administration Metoprolol Succinate 25 mg 12/11/20 21:00 12/18/20 09:10 Metoprolol Succinate 25 Mg Tablet PO 25 mg BID JIN Administration Oxycodone HCl 5 mg 12/11/20 11:20 12/18/20 11:45 Oxycodone 5 Mg Tablet PO 5 mg Q4HR PRN Administration PAIN Polyethylene Glycol 17 gm 12/14/20 09:00 12/18/20 09:09 Polyethylene Glycol 3350 17 Gm Packet PO 17 gm DAILY JIN Administration Senna 8.6 - 17.2 mg 12/15/20 09:00 12/18/20 09:09 Senna 8.6 Mg Tablet PO 8.6 mg DAILY JIN Administration Sodium Chloride 10 ml 12/09/20 19:10 12/10/20 00:04 Sodium Chloride Flush 0.9% 10 Ml Syringe IVP 10 ml PRN PRN Administration NEEDED PER PROVIDER ORDERS Sodium Chloride 10 ml 12/10/20 01:00 12/18/20 09:10 Sodium Chloride Flush 0.9% 10 Ml Syringe IVP 10 ml 0100,0900,1700 JIN Administration - Lab Result Fish Bone Diagrams: 12/17/20 05:00 12/17/20 05:00 Objective Vital Signs: Vital Signs - 24 hr 12/17/20 12/17/20 12/18/20 16:03 21:00 00:24 Temperature 36.2 C L 36.4 C L 36.3 C L Heart Rate [ 67 69 67 Brachial] Respiratory 16 18 16 Rate Blood Pressure 98/50 L 106/64 [Left Brachial artery] Blood Pressure 104/35 L [Right Brachial artery] O2 Saturation 95 94 94 12/18/20 12/18/20 12/18/20 05:00 08:07 11:42 Temperature 36.3 C L 36.4 C L 36.3 C L Heart Rate [ 77 66 70 Brachial] Respiratory 18 17 17 Rate Blood Pressure 88/69 L 118/66 113/59 L [Left Brachial artery] Blood Pressure [Right Brachial artery] O2 Saturation 95 93 93 Oxygen O2 Source [Without Activity] Room air O2 Source Room air I&O (Last 24 Hrs): Intake and Output Totals x24h 12/16/20 12/17/20 12/18/20 23:59 23:59 23:59 Intake Total 1066 560 320 Output Total 100 Balance 966 560 320 General: Alert, Other HEENT: Mucous membr. moist/pink Neck: Supple, No JVD Neuro: Alert, Non Focal Cardiovascular: Regular rate Respiratory: No respiratory distress Abdomen: Soft Extremities: No clubbing, No edema - Results Results: Laboratory Results WBC 8.0 x10^3/uL (4.8-10.8) 12/17/20 05:00 RBC 3.98 10^6/uL (4.20-5.40) L 12/17/20 05:00 Hgb 12.2 g/dL (12.0-16.0) 12/17/20 05:00 Hct 38.1 % (37.0-47.0) 12/17/20 05:00 MCV 95.7 fL (81.0-99.0) 12/17/20 05:00 MCH 30.7 pg (27.0-31.0) 12/17/20 05:00 MCHC 32.0 g/dL (32.0-36.0) 12/17/20 05:00 RDW 14.5 % (12.0-15.0) 12/17/20 05:00 Plt Count 277 10^3/uL (130-450) 12/17/20 05:00 MPV 10.8 fL (7.9-10.8) 12/17/20 05:00 Neut # (Auto) 4.0 10^3/uL (1.5-6.6) 12/17/20 05:00 Lymph # (Auto) 2.6 10^3/uL (1.5-3.5) 12/17/20 05:00 [place] # (Auto) 0.8 10^3/uL (0.0-1.0) 12/17/20 05:00 Eos # (Auto) 0.4 10^3/uL (0.0-0.7) 12/17/20 05:00 Baso # (Auto) 0.1 10^3/uL (0.0-0.1) 12/17/20 05:00 Absolute Nucleated RBC 0.00 x10^3/uL 12/17/20 05:00 Nucleated RBC % 0.0 /100WBC 12/17/20 05:00 Sodium 138 mmol/L (135-145) 12/17/20 05:00 Potassium 4.1 mmol/L (3.5-5.0) 12/17/20 05:00 Chloride 102 mmol/L (101-111) 12/17/20 05:00 Carbon Dioxide 24 mmol/L (21-32) 12/17/20 05:00 Anion Gap 12.0 (6-13) 12/17/20 05:00 BUN 23 mg/dL (6-20) H 12/17/20 05:00 Creatinine 0.8 mg/dL (0.4-1.0) 12/17/20 05:00 Estimated GFR (MDRD) 72 (>89) L 12/17/20 05:00 Glucose 98 mg/dL (70-100) 12/17/20 05:00 Estimat Average Glucose 128 mg/dL (70-100) H 12/10/20 05:04 Hemoglobin A1c % 6.1 % (4.27-6.07) H 12/10/20 05:04 Lactic Acid 1.0 mmol/L (0.5-2.2) 12/10/20 07:49 Calcium 9.3 mg/dL (8.5-10.3) 12/17/20 05:00 Magnesium 2.1 mg/dL (1.7-2.8) 12/14/20 05:05 Total Bilirubin 0.8 mg/dL (0.2-1.0) 12/09/20 18:28 AST 28 IU/L (10-42) 12/09/20 18:28 ALT 19 IU/L (10-60) 12/09/20 18:28 Alkaline Phosphatase 92 IU/L (42-121) 12/09/20 18:28 Total Creatine Kinase 105 IU/L (22-269) 12/14/20 05:05 Troponin I High Sens 15.9 ng/L (2.3-14.8) H* 12/10/20 05:04 Total Protein 7.8 g/dL (6.7-8.2) 12/09/20 18:28 Albumin 4.2 g/dL (3.2-5.5) 12/09/20 18:28 Globulin 3.6 g/dL (2.1-4.2) 12/09/20 18:28 Albumin/Globulin Ratio 1.2 (1.0-2.2) 12/09/20 18:28 Lipase 28 U/L (22-51) 12/09/20 18:28 TSH 0.82 uIU/mL (0.34-5.60) 12/09/20 18:28 Free T4 0.73 ng/dL (0.58-1.64) 12/09/20 18:28 Urine Color YELLOW 12/13/20 11:20 Urine Clarity CLEAR (CLEAR) 12/13/20 11:20 Urine pH 6.0 PH (5.0-7.5) 12/13/20 11:20 Ur Specific [place] 1.020 (1.002-1.030) 12/13/20 11:20 Urine Protein NEGATIVE mg/dL (NEGATIVE) 12/13/20 11:20 Urine Glucose (UA) NEGATIVE mg/dL (NEGATIVE) 12/13/20 11:20 Urine Ketones NEGATIVE mg/dL (NEGATIVE) 12/13/20 11:20 Urine Occult Blood NEGATIVE (NEGATIVE) 12/13/20 11:20 Urine Nitrite NEGATIVE (NEGATIVE) 12/13/20 11:20 Urine Bilirubin NEGATIVE (NEGATIVE) 12/13/20 11:20 Urine Urobilinogen 0.2 (NORMAL) E.U./dL (NORMAL) 12/13/20 11:20 Ur Leukocyte Esterase MODERATE (NEGATIVE) H 12/13/20 11:20 Urine RBC 0-5 /HPF (0-5) 12/13/20 11:20 Urine WBC 11-25 /HPF (0-5) H 12/13/20 11:20 Ur Squamous Epith Cells FEW Squamous (<= Few) 12/13/20 11:20 Urine Bacteria Few /HPF (None Seen) 12/13/20 11:20 Urine Mucus Few Strands 12/09/20 17:47 Ur Microscopic Review INDICATED 12/09/20 17:47 Urine Culture Comments INDICATED 12/13/20 11:20 Nasal Adenovirus (PCR) NOT DETECTED 12/09/20 16:58 Nasal B. parapertussis DNA (PCR) NOT DETECTED 12/09/20 16:58 Nasal Coronavir 229E PCR NOT DETECTED 12/09/20 16:58 Nasal Coronavir HKU1 PCR NOT DETECTED 12/09/20 16:58 Nasal Coronavir NL63 PCR NOT DETECTED 12/09/20 16:58 Nasal Coronavir OC43 PCR NOT DETECTED 12/09/20 16:58 Nasal Enterovir/Rhinovir PCR NOT DETECTED 12/09/20 16:58 Nasal Influenza B PCR NOT DETECTED 12/09/20 16:58 Nasal Influenza A PCR NOT DETECTED 12/09/20 16:58 Nasal Parainfluen 1 PCR NOT DETECTED 12/09/20 16:58 Nasal Parainfluen 2 PCR NOT DETECTED 12/09/20 16:58 Nasal Parainfluen 3 PCR NOT DETECTED 12/09/20 16:58 Nasal Parainfluen 4 PCR NOT DETECTED 12/09/20 16:58 Nasal RSV (PCR) NOT DETECTED 12/09/20 16:58 Nasal B.pertussis DNA PCR NOT DETECTED 12/09/20 16:58 Nasal C.pneumoniae (PCR) NOT DETECTED 12/09/20 16:58 Jaya Human Metapneumo PCR NOT DETECTED 12/09/20 16:58 Nasal M.pneumoniae (PCR) NOT DETECTED 12/09/20 16:58 Nasal SARS-CoV-2 (PCR) NOT DETECTED 12/09/20 16:58 Salicylates < 6.0 mg/dL 12/09/20 18:28 Urine Opiates Screen NEGATIVE (NEGATIVE) 12/09/20 17:47 Ur Oxycodone Screen NEGATIVE (NEGATIVE) 12/09/20 17:47 Urine Methadone Screen NEGATIVE (NEGATIVE) 12/09/20 17:47 Ur Propoxyphene Screen NEGATIVE (NEGATIVE) 12/09/20 17:47 Acetaminophen < 10 ug/mL (10-30) L 12/09/20 18:28 Ur Barbiturates Screen NEGATIVE (NEGATIVE) 12/09/20 17:47 Ur Tricyclics Screen NEGATIVE (NEGATIVE) 12/09/20 17:47 Ur Phencyclidine Scrn NEGATIVE (NEGATIVE) 12/09/20 17:47 Ur Amphetamine Screen NEGATIVE (NEGATIVE) 12/09/20 17:47 U Methamphetamines Scrn NEGATIVE (NEGATIVE) 12/09/20 17:47 U Benzodiazepines Scrn NEGATIVE (NEGATIVE) 12/09/20 17:47 Urine Cocaine Screen NEGATIVE (NEGATIVE) 12/09/20 17:47 U Cannabinoids Screen NEGATIVE (NEGATIVE) 12/09/20 17:47 Ethyl Alcohol < 5.0 mg/dL 12/09/20 18:28
[2020-12-18] MEDS: ATORVASTATIN 40 MG TABLET PO SCH (23:21)
[2020-12-19] MEDS: SODIUM CHLORIDE FLUSH 0.9% 10 ML SYRINGE IVP SCH ×3 (00:40→16:44)
[2020-12-19] MEDS: oxyCODONE 5 MG TABLET PO PRN ×6 (00:40→21:14)
[2020-12-19] MEDS: LEVOTHYROXINE 25 MCG TABLET PO SCH (06:20)
[2020-12-19] MEDS: levETIRAcetam 250 MG TABLET PO SCH ×2 (08:50→21:14)
[2020-12-19] MEDS: DOCUSATE SODIUM 250 MG CAPSULE PO SCH ×2 (08:50→21:14)
[2020-12-19] MEDS: polyethylene glycoL 3350 17 GM PACKET PO SCH (08:50)
[2020-12-19] MEDS: BACLOFEN 10 MG TABLET PO SCH ×4 (08:51→21:13)
[2020-12-19] MEDS: CLOPIDOGREL 75 MG TABLET PO SCH (08:51)
[2020-12-19] MEDS: ENOXAPARIN 40 MG/0.4 ML SYRINGE SUBQ SCH (08:51)
[2020-12-19] MEDS: METOPROLOL SUCCINATE 25 MG TABLET PO SCH ×2 (08:51→20:19)
[2020-12-19] MEDS: SENNA 8.6 MG TABLET PO SCH ×2 (08:51→21:15)
[2020-12-19] MEDS: CLOBETASOL 0.05% OINT 15 GM TUBE TOP SCH ×2 (08:52→21:14)
--- NOTE | 2020-12-19 14:03 | PROVIDER PROGRESS NOTE ---
Assessment/Plan - Problem List (1) Cognitive impairment Assessment/Plan: This is her fifth hospitalization for altered mental status. She did not remember that she presented here this time unconscious. Several days ago this was the discussion with her CERTIFIED WELLNESS PROGRAM COORDINATOR that was documented: " Patient stated Brief was wet, told her i was going to change her into a dry one and she stated "no, leave it". her brief was not changed as patient refused." Yesterday the patient told me that she only makes her food "if she feels like standing up" (therefore usually she only eats 2 meals a day). A DMV form was complete since driving is not advised with her poor insight and 5 presentations obtunded. She lives alone. Her cognitive evaluation was done by OT today and she scored 16/30, consistent with moderately impaired cognitive function (possible Dementia). The Occupational Therapist noted today that she does not make consistent good decisions regarding what she was questioned. It is an unsafe plan to have her return home to live alone after PT at SNF. After SNF for PT rehab, it would be safer if she remained at [facility]. (2) Opioid dependence Assessment/Plan: Her admission H&P states that she has opioid dependence. This could be the celeste son that she sometimes takes her meds inappropriately or falls and is found down on the ground by family and neighbors. This is her fifth admission with being found down. We will continue with narcotics so she does not go through opioid withdrawal symptoms. (3) Chronic low back pain Assessment/Plan: When I asked her how she felt several days ago she said "when do I get my next pain pill". She rates her LBP 8/10, she tells her RN. We will continue with narcotics so as not go through opioid withdrawal symptoms. (4) UTI (urinary tract infection) Qualifiers: Urinary tract infection type: acute cystitis Hematuria presence: without hematuria Qualified Code(s): N30.00 - Acute cystitis without hematuria Assessment/Plan: She was not put on antibiotics at admission because it was felt that she did not have symptoms and just had asymptomatic bacteriuria. Then her urine culture grew Klebsiella. She was able to describe urinary burning and itching, 2 days after admission when her mentation improved. She also had urinary retention. She also is incontinent of urine. A repeat urinalysis was abnormal and she was started Levaquin several days ago for a 3 day course in a female. She has completed that course of treatment. The second urine culture also grew Klebsiella AND Enterococcus faecalis. Both were sensitive to Levaquin (5) Seizure disorder Assessment/Plan: This is her fifth hospital admission after being found down and confused. She lives alone. Although she reported that her seizures have been well controlled, we wonder if she may be having seizures at home which lead to these hospitalizations. We will continue her on Keppra A Keppra level was ordered, it is a send-out lab, awaiting result. (6) Physical deconditioning Impression: She is deconditioned and working with PT for rehab and the plan is to go to a group home facility before she returns home. However, see #1 (7) Multiple sclerosis Impression: Continue baclofen. She will continue to follow-up with her neurologist on an outpatient basis. (8) Hypothyroid Impression: Continue Synthroid. (9) Psoriasis Impression: We have started her on clobetasol on December 11. (10) Acute kidney injury Impression: Resolved. This was prerenal injury and resolved with IV fluids. (11) Elevated CK Impression: This was secondary to her being found down at home (rhabdomyolysis) and has resolved. (12) Acute metabolic encephalopathy Impression: Obtundation has resolved. - Current Meds Current Meds: Current Medications Generic Name Dose Route Start Last Admin Trade Name Freq PRN Reason Stop Dose Admin Acetaminophen 650 mg 12/09/20 19:10 12/18/20 16:41 Acetaminophen 325 Mg Tablet PO 650 mg Q4HR PRN Administration Pain 1 to 4 Atorvastatin Calcium 40 mg 12/10/20 21:00 12/18/20 23:21 Atorvastatin 40 Mg Tablet PO 40 mg QPM JIN Administration Baclofen 10 mg 12/10/20 21:00 12/19/20 12:28 Baclofen 10 Mg Tablet PO 10 mg QID JIN Administration Clobetasol Propionate 1 applic 12/11/20 11:00 12/19/20 08:52 Clobetasol 0.05% Oint 15 Gm Tube TOP 1 applic BID JIN Administration Clopidogrel Bisulfate 75 mg 12/10/20 09:00 12/19/20 08:51 Clopidogrel 75 Mg Tablet PO 75 mg DAILY JIN Administration Docusate Sodium 250 - 500 mg 12/16/20 09:00 12/19/20 08:50 Docusate Sodium 250 Mg Capsule PO 250 mg DAILY JIN Administration Enoxaparin Sodium 40 mg 12/10/20 09:00 12/19/20 08:51 Enoxaparin 40 Mg/0.4 Ml Syringe SUBQ 40 mg DAILY JIN Administration Levetiracetam 500 mg 12/10/20 09:00 12/19/20 08:50 Levetiracetam 250 Mg Tablet PO 500 mg BID JIN Administration Levothyroxine Sodium 50 mcg 12/10/20 11:00 12/19/20 06:20 Levothyroxine 25 Mcg Tablet PO 50 mcg QDAC JIN Administration Metoprolol Succinate 25 mg 12/11/20 21:00 12/19/20 08:51 Metoprolol Succinate 25 Mg Tablet PO 25 mg BID JIN Administration Oxycodone HCl 5 mg 12/11/20 11:20 12/19/20 12:27 Oxycodone 5 Mg Tablet PO 5 mg Q4HR PRN Administration PAIN Polyethylene Glycol 17 gm 12/14/20 09:00 12/19/20 08:50 Polyethylene Glycol 3350 17 Gm Packet PO 17 gm DAILY JIN Administration Senna 8.6 - 17.2 mg 12/15/20 09:00 12/19/20 08:51 Senna 8.6 Mg Tablet PO 8.6 mg DAILY JIN Administration Sodium Chloride 10 ml 12/09/20 19:10 12/10/20 00:04 Sodium Chloride Flush 0.9% 10 Ml Syringe IVP 10 ml PRN PRN Administration NEEDED PER PROVIDER ORDERS Sodium Chloride 10 ml 12/10/20 01:00 12/19/20 08:52 Sodium Chloride Flush 0.9% 10 Ml Syringe IVP 10 ml 0100,0900,1700 JIN Administration - Lab Result Fish Bone Diagrams: 12/17/20 05:00 12/17/20 05:00 Subjective - Subjective Patient Reports: Resting Comfortably, Fatigue Objective Vital Signs: Vital Signs - 24 hr 12/18/20 12/18/20 12/18/20 16:11 21:00 23:30 Temperature 36.3 C L 36.4 C L 36.5 C Heart Rate [ 70 71 76 Brachial] Heart Rate [ Sitting] Heart Rate [ Supine] Respiratory 18 18 18 Rate Blood Pressure 104/64 116/51 L [Left Brachial artery] Blood Pressure 124/68 [Right Brachial artery] Blood Pressure [Sitting] Blood Pressure [Supine] O2 Saturation 94 96 94 12/19/20 12/19/20 12/19/20 04:55 07:02 08:16 Temperature 36.4 C L 36.4 C L 36.4 C L Heart Rate [ 70 71 71 Brachial] Heart Rate [ Sitting] Heart Rate [ Supine] Respiratory 16 20 18 Rate Blood Pressure 101/46 L 104/68 135/69 H [Left Brachial artery] Blood Pressure [Right Brachial artery] Blood Pressure [Sitting] Blood Pressure [Supine] O2 Saturation 93 93 98 12/19/20 12/19/20 11:37 13:00 Temperature 36.6 C Heart Rate [ 73 Brachial] Heart Rate [ 91 Sitting] Heart Rate [ 89 Supine] Respiratory 21 Rate Blood Pressure [Left Brachial artery] Blood Pressure 112/55 L [Right Brachial artery] Blood Pressure 95/32 L [Sitting] Blood Pressure 94/48 L [Supine] O2 Saturation 95 Oxygen O2 Source [Without Activity] Room air O2 Source Room air I&O (Last 24 Hrs): Intake and Output Totals x24h 12/17/20 12/18/20 12/19/20 23:59 23:59 23:59 Intake Total 560 720 680 Balance 560 720 680 General: Alert, Oriented x3 HEENT: Mucous membr. moist/pink, Other (edentulous, voice is hoarse) Neuro: Alert, Non Focal Cardiovascular: Regular rate Respiratory: No respiratory distress Abdomen: Soft Extremities: No edema - Results Results: Laboratory Results WBC 8.0 x10^3/uL (4.8-10.8) 12/17/20 05:00 RBC 3.98 10^6/uL (4.20-5.40) L 12/17/20 05:00 Hgb 12.2 g/dL (12.0-16.0) 12/17/20 05:00 Hct 38.1 % (37.0-47.0) 12/17/20 05:00 MCV 95.7 fL (81.0-99.0) 12/17/20 05:00 MCH 30.7 pg (27.0-31.0) 12/17/20 05:00 MCHC 32.0 g/dL (32.0-36.0) 12/17/20 05:00 RDW 14.5 % (12.0-15.0) 12/17/20 05:00 Plt Count 277 10^3/uL (130-450) 12/17/20 05:00 MPV 10.8 fL (7.9-10.8) 12/17/20 05:00 Neut # (Auto) 4.0 10^3/uL (1.5-6.6) 12/17/20 05:00 Lymph # (Auto) 2.6 10^3/uL (1.5-3.5) 12/17/20 05:00 Sumner # (Auto) 0.8 10^3/uL (0.0-1.0) 12/17/20 05:00 Eos # (Auto) 0.4 10^3/uL (0.0-0.7) 12/17/20 05:00 Baso # (Auto) 0.1 10^3/uL (0.0-0.1) 12/17/20 05:00 Absolute Nucleated RBC 0.00 x10^3/uL 12/17/20 05:00 Nucleated RBC % 0.0 /100WBC 12/17/20 05:00 Sodium 138 mmol/L (135-145) 12/17/20 05:00 Potassium 4.1 mmol/L (3.5-5.0) 12/17/20 05:00 Chloride 102 mmol/L (101-111) 12/17/20 05:00 Carbon Dioxide 24 mmol/L (21-32) 12/17/20 05:00 Anion Gap 12.0 (6-13) 12/17/20 05:00 BUN 23 mg/dL (6-20) H 12/17/20 05:00 Creatinine 0.8 mg/dL (0.4-1.0) 12/17/20 05:00 Estimated GFR (MDRD) 72 (>89) L 12/17/20 05:00 Glucose 98 mg/dL (70-100) 12/17/20 05:00 Estimat Average Glucose 128 mg/dL (70-100) H 12/10/20 05:04 Hemoglobin A1c % 6.1 % (4.27-6.07) H 12/10/20 05:04 Lactic Acid 1.0 mmol/L (0.5-2.2) 12/10/20 07:49 Calcium 9.3 mg/dL (8.5-10.3) 12/17/20 05:00 Magnesium 2.1 mg/dL (1.7-2.8) 12/14/20 05:05 Total Bilirubin 0.8 mg/dL (0.2-1.0) 12/09/20 18:28 AST 28 IU/L (10-42) 12/09/20 18:28 ALT 19 IU/L (10-60) 12/09/20 18:28 Alkaline Phosphatase 92 IU/L (42-121) 12/09/20 18:28 Total Creatine Kinase 105 IU/L (22-269) 12/14/20 05:05 Troponin I High Sens 15.9 ng/L (2.3-14.8) H* 12/10/20 05:04 Total Protein 7.8 g/dL (6.7-8.2) 12/09/20 18:28 Albumin 4.2 g/dL (3.2-5.5) 12/09/20 18:28 Globulin 3.6 g/dL (2.1-4.2) 12/09/20 18:28 Albumin/Globulin Ratio 1.2 (1.0-2.2) 12/09/20 18:28 Lipase 28 U/L (22-51) 12/09/20 18:28 TSH 0.82 uIU/mL (0.34-5.60) 12/09/20 18:28 Free T4 0.73 ng/dL (0.58-1.64) 12/09/20 18:28 Urine Color YELLOW 12/13/20 11:20 Urine Clarity CLEAR (CLEAR) 12/13/20 11:20 Urine pH 6.0 PH (5.0-7.5) 12/13/20 11:20 Ur Specific Crouse 1.020 (1.002-1.030) 12/13/20 11:20 Urine Protein NEGATIVE mg/dL (NEGATIVE) 12/13/20 11:20 Urine Glucose (UA) NEGATIVE mg/dL (NEGATIVE) 12/13/20 11:20 Urine Ketones NEGATIVE mg/dL (NEGATIVE) 12/13/20 11:20 Urine Occult Blood NEGATIVE (NEGATIVE) 12/13/20 11:20 Urine Nitrite NEGATIVE (NEGATIVE) 12/13/20 11:20 Urine Bilirubin NEGATIVE (NEGATIVE) 12/13/20 11:20 Urine Urobilinogen 0.2 (NORMAL) E.U./dL (NORMAL) 12/13/20 11:20 Ur Leukocyte Esterase MODERATE (NEGATIVE) H 12/13/20 11:20 Urine RBC 0-5 /HPF (0-5) 12/13/20 11:20 Urine WBC 11-25 /HPF (0-5) H 12/13/20 11:20 Ur Squamous Epith Cells FEW Squamous (<= Few) 12/13/20 11:20 Urine Bacteria Few /HPF (None Seen) 12/13/20 11:20 Urine Mucus Few Strands 12/09/20 17:47 Ur Microscopic Review INDICATED 12/09/20 17:47 Urine Culture Comments INDICATED 12/13/20 11:20 Nasal Adenovirus (PCR) NOT DETECTED 12/09/20 16:58 Nasal B. parapertussis DNA (PCR) NOT DETECTED 12/09/20 16:58 Nasal Coronavir 229E PCR NOT DETECTED 12/09/20 16:58 Nasal Coronavir HKU1 PCR NOT DETECTED 12/09/20 16:58 Nasal Coronavir NL63 PCR NOT DETECTED 12/09/20 16:58 Nasal Coronavir OC43 PCR NOT DETECTED 12/09/20 16:58 Nasal Enterovir/Rhinovir PCR NOT DETECTED 12/09/20 16:58 Nasal Influenza B PCR NOT DETECTED 12/09/20 16:58 Nasal Influenza A PCR NOT DETECTED 12/09/20 16:58 Nasal Parainfluen 1 PCR NOT DETECTED 12/09/20 16:58 Nasal Parainfluen 2 PCR NOT DETECTED 12/09/20 16:58 Nasal Parainfluen 3 PCR NOT DETECTED 12/09/20 16:58 Nasal Parainfluen 4 PCR NOT DETECTED 12/09/20 16:58 Nasal RSV (PCR) NOT DETECTED 12/09/20 16:58 Nasal B.pertussis DNA PCR NOT DETECTED 12/09/20 16:58 Nasal C.pneumoniae (PCR) NOT DETECTED 12/09/20 16:58 Jaya Human Metapneumo PCR NOT DETECTED 12/09/20 16:58 Nasal M.pneumoniae (PCR) NOT DETECTED 12/09/20 16:58 Nasal SARS-CoV-2 (PCR) NOT DETECTED 12/09/20 16:58 Salicylates < 6.0 mg/dL 12/09/20 18:28 Urine Opiates Screen NEGATIVE (NEGATIVE) 12/09/20 17:47 Ur Oxycodone Screen NEGATIVE (NEGATIVE) 12/09/20 17:47 Urine Methadone Screen NEGATIVE (NEGATIVE) 12/09/20 17:47 Ur Propoxyphene Screen NEGATIVE (NEGATIVE) 12/09/20 17:47 Acetaminophen < 10 ug/mL (10-30) L 12/09/20 18:28 Ur Barbiturates Screen NEGATIVE (NEGATIVE) 12/09/20 17:47 Ur Tricyclics Screen NEGATIVE (NEGATIVE) 12/09/20 17:47 Ur Phencyclidine Scrn NEGATIVE (NEGATIVE) 12/09/20 17:47 Ur Amphetamine Screen NEGATIVE (NEGATIVE) 12/09/20 17:47 U Methamphetamines Scrn NEGATIVE (NEGATIVE) 12/09/20 17:47 U Benzodiazepines Scrn NEGATIVE (NEGATIVE) 12/09/20 17:47 Urine Cocaine Screen NEGATIVE (NEGATIVE) 12/09/20 17:47 U Cannabinoids Screen NEGATIVE (NEGATIVE) 12/09/20 17:47 Ethyl Alcohol < 5.0 mg/dL 12/09/20 18:28
[2020-12-19] MEDS: ATORVASTATIN 40 MG TABLET PO SCH (21:14)
[2020-12-20] MEDS: oxyCODONE 5 MG TABLET PO PRN ×5 (02:31→19:50)
[2020-12-20] MEDS: LEVOTHYROXINE 25 MCG TABLET PO SCH (06:24)
[2020-12-20] MEDS: levETIRAcetam 250 MG TABLET PO SCH ×2 (09:52→21:22)
[2020-12-20] MEDS: METOPROLOL SUCCINATE 25 MG TABLET PO SCH ×2 (09:52→21:22)
[2020-12-20] MEDS: CLOPIDOGREL 75 MG TABLET PO SCH (09:52)
[2020-12-20] MEDS: ENOXAPARIN 40 MG/0.4 ML SYRINGE SUBQ SCH (09:52)
[2020-12-20] MEDS: ACETAMINOPHEN 325 MG TABLET PO PRN ×2 (09:52→19:50)
[2020-12-20] MEDS: CLOBETASOL 0.05% OINT 15 GM TUBE TOP SCH ×2 (09:52→21:22)
[2020-12-20] MEDS: DOCUSATE SODIUM 250 MG CAPSULE PO SCH (09:52)
[2020-12-20] MEDS: BACLOFEN 10 MG TABLET PO SCH ×4 (09:52→21:22)
[2020-12-20] MEDS: SODIUM CHLORIDE FLUSH 0.9% 10 ML SYRINGE IVP SCH ×3 (09:53→16:36)
[2020-12-20] MEDS: polyethylene glycoL 3350 17 GM PACKET PO SCH (09:53)
[2020-12-20] MEDS: SENNA 8.6 MG TABLET PO SCH (09:53)
--- NOTE | 2020-12-20 10:54 | PROVIDER PROGRESS NOTE ---
Subjective - Prog Note Date Prog Note Date: 12/20/20 Prog Note Time: 10:51 - Subjective Pt reports feeling: No change (Patient reports she is in pain, but states that it is her typical chronic pain and that otherwise she feels fine.) Objective - Vital Signs/Intake & Output Vital Signs: Vital Signs x48h Temp Pulse Resp BP Pulse Ox 12/20/20 07:39 36.4 C L 67 18 109/75 96 12/20/20 06:23 36.6 C 66 18 113/66 93 Intake & Output: Intake & Output 12/17/20 12/18/20 12/19/20 12/20/20 23:59 23:59 23:59 23:59 Intake Total 327 808 8503 660 Balance 211 959 7574 660 - Objective General Appearance: positive: No acute distress, Alert Respiratory: positive: Chest non-tender, No respiratory distress, Breath sounds nml Cardiovascular: positive: Regular rate & rhythm, No murmur, No gallop Abdomen: positive: Nml bowel sounds Skin: positive: Color nml Extremities: positive: Other (Pt states she has BLE tenderness, which she says is chronic. She notes that she feels "much weaker" than normal.) Neurologic/Psychiatric: positive: Oriented x3, Weakness (weakness to BLEs) - Lab Results Fish Bones: 12/17/20 05:00 12/17/20 05:00 - Diagnostic Imaging Diagnostic Imaging Results: positive: Final report reviewed (CXR, EKG, CT all reviewed) Assessment/Plan - Problem List (1) Cognitive impairment Impression: Assessment/Plan: This is her fifth hospitalization for altered mental status. She did not remember that she presented here this time unconscious. See prior prog notes for further historical detail. She lives alone. Her cognitive evaluation was done by OT yesterday and she scor ed , consistent with moderately impaired cognitive function (possible Dementia). The Occupational Therapist noted today that she does not make consistent good decisions regarding what she was questioned. It is an unsafe plan to have her return home to live alone after PT at SNF. After SNF for PT rehab, it would be safer if she remained at [facility]. [facility] accepted [facility] and has a bed, but they are waiting for insurance authorization. SW following. (2) Opioid dependence Assessment/Plan: Her admission H&P states that she has opioid dependence. This is her fifth admission with being found down. She may be taking her home opioids inappropriately, but she denies this when asked today and states she takes "no more and no less" than what she is prescribed at home. We will continue with narcotics so she does not go through opioid withdrawal symptoms. (3) Chronic low back pain Assessment/Plan: Chronic issue. We will continue with narcotics so as not go through opioid withdrawal symptoms. (4) UTI (urinary tract infection) Qualifiers: Urinary tract infection type: acute cystitis Hematuria presence: without hematuria Qualified Code(s): N30.00 - Acute cystitis without hematuria Assessment/Plan: Initially thought to be asymptomatic bacteriuria, until her urine culture grew Klebsiella. She described urinary burning and itching 2 days after admission when her mentation improved. She also had urinary retention during this admission and is incontinent of urine at baseline. A second urine culture also grew Klebsiella AND Enterococcus faecalis, both sensitive to Levaquin. She has since completed a 3 day course of Levaquin. (5) Seizure disorder Assessment/Plan: This is her fifth hospital admission after being found down and confused. She lives alone and has not had any witnessed seizures to our knowledge. Although she reports that her seizures have been well controlled, there is reasonable concern she is having seizures at home which lead to these hospitalizations. We will continue her on Keppra A Keppra level was ordered, it is a send-out lab, awaiting result. May benefit from outpatient neurology referral w/ EEG. (6) Physical deconditioning Impression: She is deconditioned and working with PT for rehab and the plan is to go to a [facility] facility before she returns home. (7) Multiple sclerosis Impression: Continue baclofen. She will continue to follow-up with her neurologist on an outpatient basis. (8) Hypothyroid Impression: Continue Synthroid. (9) Psoriasis Impression: Started her on clobetasol on December 11. (10) Acute kidney injury Impression: Resolved. This was prerenal injury and resolved with IV fluids. (11) Elevated CK Impression: Secondary to her being found down at home (rhabdomyolysis), since resolved. (12) Acute metabolic encephalopathy Impression: Resolved. She is now alert, oriented, and interactive. She seems to have a muted affect at baseline.
[2020-12-20] MEDS: ATORVASTATIN 40 MG TABLET PO SCH (21:22)
[2020-12-21] MEDS: SODIUM CHLORIDE FLUSH 0.9% 10 ML SYRINGE IVP SCH ×2 (00:10→09:16)
[2020-12-21] MEDS: oxyCODONE 5 MG TABLET PO PRN ×4 (00:10→13:18)
[2020-12-21] MEDS: LEVOTHYROXINE 25 MCG TABLET PO SCH (05:53)
--- NOTE | 2020-12-21 08:42 | PROVIDER PROGRESS NOTE ---
Subjective - Prog Note Date Prog Note Date: 12/21/20 Prog Note Time: 08:38 - Subjective Pt reports feeling: Improved (Patient states she is feeling well today and is looking forward to discharge) Objective - Vital Signs/Intake & Output Vital Signs: Vital Signs x48h Temp Pulse Resp BP Pulse Ox 12/21/20 08:02 36.3 C L 69 18 115/55 L 94 12/21/20 05:00 36.5 C 69 16 112/51 L 95 Intake & Output: Intake & Output 12/18/20 12/19/20 12/20/20 12/21/20 23:59 23:59 23:59 23:59 Intake Total 720 1670 1900 300 Balance 720 1670 1900 300 - Objective General Appearance: positive: No acute distress, Alert Neck: positive: Nml inspection Respiratory: positive: Chest non-tender, No respiratory distress Cardiovascular: positive: Regular rate & rhythm, No murmur, No gallop Abdomen: positive: Non-tender, Nml bowel sounds Skin: positive: Color nml Neurologic/Psychiatric: positive: Oriented x3 - Lab Results Fish Bones: 12/17/20 05:00 12/17/20 05:00 Assessment/Plan - Problem List (1) Cognitive impairment Impression: Assessment/Plan: This is her fifth hospitalization for altered mental status. She did not remember that she presented here this time unconscious. See prior prog notes for further historical detail. She lives alone. In her cognitive evaluation by OT she scored 16/30, consistent with moderately impaired cognitive function (possible Dementia). The Occupational Therapist noted that she does not make consistent good decisions regarding what she was questioned. It is an unsafe plan to have her return home to live alone after PT at SNF. After SNF for PT rehab, it would be safer if she remained at [facility]. [facility] stay was prolonged while waiting for a rehab facility that would accept her. [facility] accepted her and had a bed, but we then had to wait for insurance authorization. Today, insurance approved her stay at [facility]. After all of these arrangements were made, this afternoon the patient changed her mind and stated she no longer would accept going to rehab and instead wanted to call family for a ride back to her home. She became verbal with staff and was yelling with the bedside RN and SW. Since she is alter and able to make her own decisions, transfer to [facility] was discontinued and she will go home once her family comes to pick her up today. An APS report was filed with the state out of concern for her future safety at home as she lives alone and does not receive formal support. (2) Opioid dependence Assessment/Plan: Her admission H&P states that she has opioid dependence. This is her fifth ad mission with being found down. She may be taking her home opioids inappropriately, but she denies this when asked and states she takes "no more and no less" than what she is prescribed at home. Her PCP, however, apparently discontinued her home opioids. She received opioids while here but will not be sent home with a prescription. She can follow up with her PCP to address this upon discharge. (3) Chronic low back pain Assessment/Plan: Chronic issue. She was placed on opioids for pain management while inpatient, but do plan to continue this upon discharge. (4) UTI (urinary tract infection) Qualifiers: Urinary tract infection type: acute cystitis Hematuria presence: without hematuria Qualified Code(s): N30.00 - Acute cystitis without hematuria Assessment/Plan: Initially thought to be asymptomatic bacteriuria, until her urine culture grew Klebsiella. She described urinary burning and itching 2 days after admission when her mentation improved. She also had urinary retention during this admission and is incontinent of urine at baseline. A second urine culture also grew Klebsiella AND Enterococcus faecalis, both sensitive to Levaquin. She has since completed a 3 day course of Levaquin. (5) Seizure disorder Assessment/Plan: This is her fifth hospital admission after being found down and confused. She lives alone and has not had any witnessed seizures to our knowledge. Although she reports that her seizures have been well controlled, there is reasonable concern she is having seizures at home which lead to these hospitalizations. We will continue her on Keppra A Keppra level was ordered as a send-out lab, still awaiting result. May benefit from outpatient neurology referral w/ EEG. (6) Physical deconditioning Impression: She is deconditioned and working with PT for rehab and the plan is [facility] before she returns home. (7) Multiple sclerosis Impression: Continue baclofen. She will continue to follow-up with her neurologist on an outpatient basis. (8) Hypothyroid Impression: Continue Synthroid. (9) Psoriasis Impression: Started her on clobetasol on December 11. (10) Acute kidney injury Impression: Resolved. This was prerenal injury and resolved with IV fluids. (11) Elevated CK Impression: Secondary to her being found down at home (rhabdomyolysis), since resolved. (12) Acute metabolic encephalopathy Impression: Resolved. She is now alert, oriented, and interactive. She seems to have a muted affect at baseline.
[2020-12-21] MEDS: DOCUSATE SODIUM 250 MG CAPSULE PO SCH (09:13)
[2020-12-21] MEDS: BACLOFEN 10 MG TABLET PO SCH ×2 (09:13→13:02)
[2020-12-21] MEDS: CLOPIDOGREL 75 MG TABLET PO SCH (09:14)
[2020-12-21] MEDS: levETIRAcetam 250 MG TABLET PO SCH (09:14)
[2020-12-21] MEDS: ENOXAPARIN 40 MG/0.4 ML SYRINGE SUBQ SCH (09:15)
[2020-12-21] MEDS: polyethylene glycoL 3350 17 GM PACKET PO SCH (09:15)
[2020-12-21] MEDS: SENNA 8.6 MG TABLET PO SCH (09:16)
[2020-12-21] MEDS: METOPROLOL SUCCINATE 25 MG TABLET PO SCH (09:17)
[2020-12-21] MEDS ORDERED: NYSTATIN POWDER 15 GM TOP SCH (11:00)
[2020-12-21] MEDS: CLOBETASOL 0.05% OINT 15 GM TUBE TOP SCH (11:11)
--- NOTE | 2020-12-21 11:20 | Discharge Plan ---
"Discharge Plan for SNF / [facility] - Discharge Plan And Transition Orders Problem Reviewed?: Yes Disposition: 03 SNF DC/Xfer Condition: Stable Allergies and Adverse Reactions: Allergies Allergy/AdvReac Type Severity Reaction Status Date / Time No Known Drug Allergies Allergy Verified 12/09/20 16:46 Health Concerns: She has a history of multiple admissions to our hospital with metabolic encephalopathy. Sometimes due to UTIs. Sometimes due to incorrect use of medications. She usually presents after being found down by neighbors or familyand is brought to the hospital. The person to notify when she is in the hospital is one of her nieces. Her name is Latisha Plascencia. Her phone number is [phone]. Latisha describes her aunt is a very private person. She does not like to discuss her health with family and is very cautious even with her medical providers. The last time the patient was seen by family was around her birthday which was [birth year]. She seemed normal at that point in time. Today neighbors called EMS. She was last seen at 8:00 last night. Today when she did not answer at her door, EMS was called and they found her on the floor in her bathroom.. She was alert to herself. Could not follow commands. Skin was pale, cool. Respirations even and unlabored. The last time she was brought in in June she tried to get up out of a chair in her apartment. Somehow her walker got caught underneath the table and mixed up with a chair and she landed on the floor and laid there for a day or 2 until her neighbors called. Right now the patient is unable to tell me what happened. She is evaluated by Dr. Chow. Temperature was 37.1. Heart rate 82. Blood pressure 143/88. Respirations 18. 100% on room air. She was alert and oriented to person only. She had an atraumatic skull. Moist mucous membranes. A benign respiratory, cardiac and abdominal exam. She had abrasions to her lower legs bilaterally. No focal deficits. Baseline creatinine is 0.8. She was 1.2. BUN was elevated at 29. Random glucose is 124. In the past A1c's have all been below 6%. Lactic acid is 2.6. CPK is 856. High-sensitivity troponin is 15.8. TSH and free T4 are normal. White cell count is elevated at 15,000. She is not anemic. Urinalysis is positive for nitrites. Negative for leukocyte Estrace. 0-5 red cells. 4-5 white cells. Rare squamous epithelial cells. Many bacteria. Culture is indicated. In the past this patient has grown out ESBL E. coli. We also feel that she is chronically colonized. Head CT is without any acute changes of stroke or hemorrhage. No skull fractures. Cervical spine CT has lower cervical spine degenerative changes but no fractures. Chest x-ray is within normal limits. The patient is now admitted with metabolic encephalopathy, lactic acidosis most likely from dehydration, and an equivocal finding of a UTI. This is very similar to her previous presentations. Plan of Treatment: She has been treated for urinary tract infection with Klebsiella, dehydration with IV fluids, and physical therapy. We find her to be deconditioned, weak, and unable to return safely to home. She will need rehab. We also think she should be seen by neurology to get an EEG to see if some of these episodes are 2 unwitnessed seizures. Plan [facility] and then return to home. She should see her primary care provider in follow-up to get the neurology referral and EEG. Care Goals: To return to home - SNF / [facility] Transition Orders Admit to (Facility): [facility] Discharge Diagnosis: 1. Acute metabolic encephalopathy 2. Chronic cognitive impairment 3. Opioid dependence 4. Seizure disorder 5. Chronic low back pain 6. UTI with Klebsiella 7. Physical deconditioning 8. Multiple sclerosis 9. Hypothyroidism Medicare Certification Statement: I certify that [facility] care is medically necessary on a continuing basis for any of the conditions for which she/he is receiving care during hospitalization. Notify PCP of admission and forward orders to primary provider for signature. Weight on admission and: Weekly Other Notification Orders: Call PCP immediately if patient develops dyspnea, chest pain/tightness or edema. House Bowel Program: Yes Additional Bowel Program Orders: If no BM after 2 days, nurse may give M.O.M. 30ml PO PRN and/or ducolax Supp 1 OH and/or MACRINA 250mg P.O., and/or senna 1-2 tabs PO. On day 3 nurse may give repeat above order until residents constipation is resolved. Annual Influenza Vaccine (between Jan 04 and August 03): Yes Two-step PPD per [facility] [id number] or approved exception documents: Yes Medication Orders: PLEASE REFER TO THE DISCHARGE MEDICATION LIST. - Medications New Prescriptions: oxyCODONE [Roxicodone] 5 mg PO Q4HR PRN #30 tablet PRN Reason: Pain - Diet Type: No added sugar Texture: Regular Liquids: Thin May have monthly special meal: Yes - Therapies | Activity Therapy: Evaluation | Treat if indicated: PT, OT Rehabilitation Potential: Maximize functional status, Return to independent living Activity: Activity as Tolerated Assistance Devices: Walker Follow Up: Beatriz Medel, PCP in [place]"
--- NOTE | 2020-12-21 11:38 | DISCHARGE SUMMARY ---
Discharge Summary Admit Date: 12/09/20 Discharge Date: 12/21/20 Discharging Provider: Dr. Marquez Code Status: Attempt Resuscitation Condition at Discharge: Good Discharge Disposition: 01 Home, Self Care Discharge Facility Name: [facility] - DIAGNOSES Admission Diagnoses: Altered mental status Discharge Diagnoses with Status of Each Condition: (1) Cognitive impairment Impression: Assessment/Plan: This is her fifth hospitalization for altered mental status. She did not remember that she presented here this time unconscious. See prior prog notes for further historical detail. She lives alone. In her cognitive evaluation by OT she scored 16/30, consistent with moderately impaired cognitive function (possible Dementia). The Occupational Therapist noted that she does not make consistent good decisions regarding what she was questioned. It is an unsafe plan to have her return home to live alone after PT at [facility]. After SNF for PT rehab, it would be safer if she remained at [facility]. [facility] stay was prolonged while waiting for a rehab facility that would accept her. [facility] accepted her and had a bed, but we then had to wait for insurance authorization. Today, insurance approved her stay at [facility]. After all of these arrangements were made, this afternoon the patient changed her mind and stated she no longer would accept going to rehab and instead wanted to call family for a ride back to her home. She became verbal with staff and was yelling with the bedside RN and SW. Since she is alter and able to make her own decisions, transfer to [facility] was discontinued and she will go home once her family comes to pick her up today. An APS report was filed with the state out of concern for her future safety at home as she lives alone and does not receive formal support. (2) Opioid dependence Assessment/Plan: Her admission H&P states that she has opioid dependence. This is her fifth admission with being found down. She may be taking her home opioids inappropriately, but she denies this when asked and states she takes "no more and no less" than what she is prescribed at home. Her PCP, however, apparently discontinued her home opioids. She received opioids while here but will not be sent home with a prescription. She can follow up with her PCP to address this upon discharge. (3) Chronic low back pain Assessment/Plan: Chronic issue. She was placed on opioids for pain management while inpatient, but do plan to continue this upon discharge. (4) UTI (urinary tract infection) Qualifiers: Urinary tract infection type: acute cystitis Hematuria presence: without hematuria Qualified Code(s): N30.00 - Acute cystitis without hematuria Assessment/Plan: Initially thought to be asymptomatic bacteriuria, until her urine culture grew Klebsiella. She described urinary burning and itching 2 days after admission wh en her mentation improved. She also had urinary retention during this admission and is incontinent of urine at baseline. A second urine culture also grew Klebsiella AND Enterococcus faecalis, both sensitive to Levaquin. She has since completed a 3 day course of Levaquin. (5) Seizure disorder Assessment/Plan: This is her fifth hospital admission after being found down and confused. She lives alone and has not had any witnessed seizures to our knowledge. Although she reports that her seizures have been well controlled, there is reasonable concern she is having seizures at home which lead to these hospitalizations. We will continue her on Keppra A Keppra level was ordered as a send-out lab, still awaiting result. May benefit from outpatient neurology referral w/ EEG. (6) Physical deconditioning Impression: She is deconditioned and working with PT for rehab and the plan is to go to a [facility] facility before she returns home. (7) Multiple sclerosis Impression: Continue baclofen. She will continue to follow-up with her neurologist on an outpatient basis. (8) Hypothyroid Impression: Continue Synthroid. (9) Psoriasis Impression: Started her on clobetasol on December 11. (10) Acute kidney injury Impression: Resolved. This was prerenal injury and resolved with IV fluids. (11) Elevated CK Impression: Secondary to her being found down at home (rhabdomyolysis), since resolved. (12) Acute metabolic encephalopathy Impression: Resolved. She is now alert, oriented, and interactive. She seems to have a muted affect at baseline. - HPI History of Present Illness: Ms. Lizarraga presented to the ED on 12/09/20 after being found down at home when her neighbors called EMS after she didn't answer her door. She lives on her own and has multiple sclerosis and a history of seizure disorder, chronic bladder infections, chronic back pain, chronic opioid dependency, depression and hypothyroidism. She has a history of multiple admissions to our hospital with metabolic encephalopathy. Sometimes due to UTIs. Sometimes due to incorrect use of medications. She usually presents after being found down by neighbors or family and is brought to the hospital. Upon arrival, EMS found her on the floor in her bathroom.. She was alert to herself. Could not follow commands. Skin was pale, cool. Respirations even and unlabored. She was unable to recall how she ended up on the floor. She was alert and oriented to person only. She was admitted to the ED with metabolic encephalopathy. - HOSPITAL COURSE Hospital Course: The patient was admitted for metabolic encephalopathy after being found down at home. She had an atraumatic skull on imaging. Head CT without any acute changes of stroke or hemorrhage. Cervical spine CT with lower cervical spine degenerative changes but no fractures. Chest x-ray within normal limits. The patient was admitted with metabolic encephalopathy, lactic acidosis most likely from dehydration, and an equivocal finding of a UTI. A second urine culture grew Klebsiella AND Enterococcus faecalis, both sensitive to Levaquin. She has since completed a 3 day course of Levaquin. Her CK was initially elevated but improved with IV hydration. Her metabolic encephalopathy improved and she is now alter and oriented. It was decided that she would require SNF rehab and would then need [facility] placement as it is no longer safe for her to live at home alone. Her hospital stay was extended due to finding her placement. Though she initially agreed to placement at [facility], on the day of discharge she became very agitated and adamantly refused to go to rehab and is instead procuring a ride for herself back home. This is despite clear medical advise against this plan. A send-out Keppra level was ordered during her admission to evaluate therapeutic levels, but results are still pending. There is concerns that she may be having seizures at home that precipitate some of her hospitalizations; she will benefit from outpatient neurology follow-up and EEG monitoring. - ALLERGIES Allergies/Adverse Reactions: Allergies Allergy/AdvReac Type Severity Reaction Status Date / Time No Known Drug Allergies Allergy Verified 12/09/20 16:46 - MEDICATIONS Home Medications: Ambulatory Orders Medication Instructions Recorded Confirmed Cholestyramine [Questran] 4 gm PO QPM 04/28/13 12/09/20 Baclofen 10 mg PO QID 07/18/19 12/09/20 Glucos Sul 2Kcl/MSM/Chond/C/Mn 1 cap PO DAILY 07/18/19 12/09/20 [Glucosamine Chondroitin Cap] Levothyroxine Sodium 50 mcg PO DAILY 07/18/19 12/09/20 Multivitamin/Iron/Folic Acid 1 ea ORAL DAILY 07/18/19 12/09/20 [Centrum Women Tablet] Methylphenidate HCl 40 mg PO DAILY 02/10/20 12/09/20 [Methylphenidate ER] levETIRAcetam [Roweepra] 500 mg PO BID 02/10/20 12/09/20 Acetaminophen [Tylenol] 650 mg PO Q4HR PRN 06/15/20 12/09/20 Oxymetazoline HCl [Afrin] 2 sprays WILLIE BID PRN bottle 06/15/20 12/09/20 Calcium Carbonate/Vitamin D3 1 each PO DAILY 12/09/20 12/09/20 [Calcium 500Mg-Vit D3 15Mcg Tab] Furosemide [Lasix] 20 mg PO DAILY 12/09/20 12/09/20 Mcclure-3/Dha/Epa/Fish Oil [Fish Oil 1 cap PO DAILY 12/09/20 12/09/20 1,000 mg Softgel] Atorvastatin [Lipitor] 40 mg PO QPM #0 12/21/20 12/09/20 Clobetasol 0.05% Oint [Temovate 1 applic TOP BID 12/21/20 0.05% Oint] Clopidogrel [Plavix] 75 mg PO DAILY #0 12/21/20 12/09/20 Metoprolol Succinate [Toprol Xl] 25 mg PO BID #0 12/21/20 12/09/20 Nystatin [Nystop] 1 applic TOP BID bottle 12/21/20 - PHYSICAL EXAM AT DISCHARGE General Appearance: positive: No acute distress, Alert Neck: positive: Nml inspection Respiratory: positive: Chest non-tender, No respiratory distress, Breath sounds nml Cardiovascular: positive: Regular rate & rhythm Abdomen: positive: Non-tender Skin: positive: Color nml, No rash, Warm, Dry Neurologic/Psychiatric: positive: Oriented x3 - LABS Result Diagrams: 12/17/20 05:00 12/17/20 05:00 - DIAGNOSTIC IMAGING Diagnostic Imaging Results: Final report reviewed (CXR, head & neck CT, EKG all reviewed )
--- NOTE | 2020-12-21 13:11 | Discharge Plan ---
Discharge Plan Problem Reviewed?: Yes Disposition: Home, Self Care Condition: Good Diet: Diabetic Activity Restrictions: Activity as Tolerated Shower Restrictions: Yes (please use help to bath for safety) Driving Restrictions: Yes (no driving) Assistance Devices: Walker Instruction Topics: UTI Health Concerns: She has a history of multiple admissions to our hospital with metabolic encephalopathy. Sometimes due to UTIs. Sometimes due to incorrect use of medications. She usually presents after being found down by neighbors or familyand is brought to the hospital. The person to notify when she is in the hospital is one of her nieces. Her name is Latisha Plascencia. Her phone number is [phone]. Latisha describes her aunt is a very private person. She does not like to discuss her health with family and is very cautious even with her medical providers. The last time the patient was seen by family was around her birthday which was [birth year]. She seemed normal at that point in time. Today neighbors called EMS. She was last seen at 8:00 last night. Today when she did not answer at her door, EMS was called and they found her on the floor in her bathroom.. She was alert to herself. Could not follow commands. Skin was pale, cool. Respirations even and unlabored. The last time she was brought in in June she tried to get up out of a chair in her apartment. Somehow her walker got caught underneath the table and mixed up with a chair and she landed on the floor and laid there for a day or 2 until her neighbors called. Right now the patient is unable to tell me what happened. She is evaluated by Dr. Chow. Temperature was 37.1. Heart rate 82. Blood pressure 143/88. Respirations 18. 100% on room air. She was alert and oriented to person only. She had an atraumatic skull. Moist mucous membranes. A benign respiratory, cardiac and abdominal exam. She had abrasions to her lower legs bilaterally. No focal deficits. Baseline creatinine is 0.8. She was 1.2. BUN was elevated at 29. Random glucose is 124. In the past A1c's have all been below 6%. Lactic acid is 2.6. CPK is 856. High-sensitivity troponin is 15.8. TSH and free T4 are normal. White cell count is elevated at 15,000. She is not anemic. Urinalysis is positive for nitrites. Negative for leukocyte Estrace. 0-5 red cells. 4-5 white cells. Rare squamous epithelial cells. Many bacteria. Culture is indicated. In the past this patient has grown out ESBL E. coli. We also feel that she is chronically colonized. Head CT is without any acute changes of stroke or hemorrhage. No skull fractures. Cervical spine CT has lower cervical spine degenerative changes but no fractures. Chest x-ray is within normal limits. The patient is now admitted with metabolic encephalopathy, lactic acidosis most likely from dehydration, and an equivocal finding of a UTI. This is very similar to her previous presentations. Plan of Treatment: She has been treated for urinary tract infection with Klebsiella, dehydration with IV fluids, and physical therapy. We find her to be deconditioned, weak, and unable to return safely to home. She will need rehab. We also think she should be seen by neurology to get an EEG to see if some of these episodes are 2 unwitnessed seizures. Plan is for [facility] and then return to home. She should see her primary care provider in follow-up to get the neurology referral and EEG. Once all of this was set up, and we had ambulance ready to pick her up, the patient changed her mind and decided she wanted to go home. As such the discharge was changed from discharge to prison facility to discharge to home. Care Goals: To return to home Assessment: Patient is most likely unable to care for herself at this time. As part of care planning I am sending information to Adult Protective services for the [facility]. No Smoking: If you smoke, Please STOP! Call for help. Follow-up with: Yenny Markham ARNP [Primary Care Provider] -
[2020-12-21 18:30] VITALS: BP 107/65
== END 2020-12-21 18:30 | disposition home or self-care (01) ==
LOC: EDUNIT# → ED 16:40 → MS2 19:10
PROVIDERS: ADMIT Internal Medicine; ATTEND Specialist
DX: G93.41 Metabolic encephalopathy (principal); E87.2 Acidosis; N17.9 Acute kidney failure, unspecified; N30.20 Other chronic cystitis without hematuria; N30.00 Acute cystitis without hematuria; B96.1 Klebsiella pneumoniae [K. pneumoniae] as the cause of diseases classified elsewhere; B95.2 Enterococcus as the cause of diseases classified elsewhere; E86.0 Dehydration; F11.20 Opioid dependence, uncomplicated; G89.29 Other chronic pain; M54.5 Low back pain; G35 Multiple sclerosis; G40.909 Epilepsy, unspecified, not intractable, without status epilepticus; I10 Essential (primary) hypertension; F17.200 Nicotine dependence, unspecified, uncomplicated; I25.10 Atherosclerotic heart disease of native coronary artery without angina pectoris; E03.9 Hypothyroidism, unspecified; F32.9 Major depressive disorder, single episode, unspecified; F90.9 Attention-deficit hyperactivity disorder, unspecified type; L40.9 Psoriasis, unspecified; R53.81 Other malaise; S80.812A Abrasion, left lower leg, initial encounter; S80.811A Abrasion, right lower leg, initial encounter; X58.XXXA Exposure to other specified factors, initial encounter; R77.8 Other specified abnormalities of plasma proteins; Z91.81 History of falling; I25.2 Old myocardial infarction; Z87.440 Personal history of urinary (tract) infections; Z20.822 Contact with and (suspected) exposure to COVID-19; Z74.09 Other reduced mobility; Z74.2 Need for assistance at home and no other household member able to render care; Z79.02 Long term (current) use of antithrombotics/antiplatelets; Z79.899 Other long term (current) drug therapy
CPT/HCPCS: 36415; 51702; 70450; 71045; 72125; 80048; 80053; 80177; 80306; 80307; 81001; 82550; 83036; 83605; 83690; 83735; 84439; 84443; 84484; 85025; 87040; 87077; 87086; 87181; 87631; 93005; 96361; 96372; 96374; 97110; 97116; 97162; 97165; 97530; 99285; A9270; G0378; G0480; J1650; J7120; 0202U; 80320; 80329; 81003

== ENCOUNTER 2020-12-22 17:10 | Outpatient (CLI) | payer MEDICARE, MEDICAID | END 2020-12-22 17:11 | disposition critical access hospital (66) | LOC: EMS 17:10 | DX: R53.83 Other fatigue (principal); R46.4 Slowness and poor responsiveness | CPT/HCPCS: A0425; A0427 ==

== ENCOUNTER 2020-12-22 17:31 | Observation (INO) | payer MEDICARE, MEDICAID ==
[2020-12-22] MEDS ORDERED: SODIUM CHLORIDE 0.9% 1,000 ML IV STA ×2 (17:45)
--- NOTE | 2020-12-22 18:24 | ED Physician Documentation ---
History of Present Illness - Stated complaint Stated Complaint: AMS - Chief complaint Chief Complaint: Neuro - Additonal information Additional information: 65-year-old female is brought into the emergency department for evaluation of altered mental status. She was last seen at 10 AM by neighbors and was reportedly acting normal and at her baseline. Later in the day they saw her acting bizarrely and called EMS. When EMS arrived to the scene they found her picking at things in the air, very wide-eyed and unable to follow commands and she did not respond verbally. Fingerstick blood sugar was 123. There were many bottles of Sudafed seen in the home and a note saying to buy more Sudafed. Chart review reveals that patient was previously receiving prescriptions of Ritalin but has not had an active prescription since July 2020. This patient has presented to this hospital in the past for altered mental status and does have a history of multiple sclerosis. For this provider on presentation she is wide-eyed unable to follow commands but does localize easily. When given painful stimuli she responded with "what the hell." She however has a very far stare. No obvious focal deficits. 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 OPERATOR: Hysterectomy - Present Medications Home Medications: Ambulatory Orders Medication Instructions Recorded Confirmed Cholestyramine [Questran] 4 gm PO QPM 04/28/13 12/09/20 Baclofen 10 mg PO QID 07/18/19 12/09/20 Glucos Sul 2Kcl/MSM/Chond/C/Mn 1 cap PO DAILY 07/18/19 12/09/20 [Glucosamine Chondroitin Cap] Levothyroxine Sodium 50 mcg PO DAILY 07/18/19 12/09/20 Multivitamin/Iron/Folic Acid 1 ea ORAL DAILY 07/18/19 12/09/20 [Centrum Women Tablet] Methylphenidate HCl 40 mg PO DAILY 02/10/20 12/09/20 [Methylphenidate ER] levETIRAcetam [Roweepra] 500 mg PO BID 02/10/20 12/09/20 Acetaminophen [Tylenol] 650 mg PO Q4HR PRN 06/15/20 12/09/20 Oxymetazoline HCl [Afrin] 2 sprays WILLIE BID PRN bottle 06/15/20 12/09/20 Calcium Carbonate/Vitamin D3 1 each PO DAILY 12/09/20 12/09/20 [Calcium 500Mg-Vit D3 15Mcg Tab] Furosemide [Lasix] 20 mg PO DAILY 12/09/20 12/09/20 [place]-3/Dha/Epa/Fish Oil [Fish Oil 1 cap PO DAILY 12/09/20 12/09/20 1,000 mg Softgel] Atorvastatin [Lipitor] 40 mg PO QPM #0 12/21/20 12/09/20 Clobetasol 0.05% Oint [Temovate 1 applic TOP BID 12/21/20 0.05% Oint] Clopidogrel [Plavix] 75 mg PO DAILY #0 12/21/20 12/09/20 Metoprolol Succinate [Toprol Xl] 25 mg PO BID #0 12/21/20 12/09/20 Nystatin [Nystop] 1 applic TOP BID bottle 12/21/20 - Allergies Allergies/Adverse Reactions: Allergies Allergy/AdvReac Type Severity Reaction Status Date / Time No Known Drug Allergies Allergy Verified 12/22/20 18:10 - Social History Does the pt smoke?: Yes Smoking Status: Current every day smoker Does the pt drink ETOH?: No Does the pt have substance abuse?: Yes Substance Use and Type: Other - Immunizations Immunizations are current?: No - POLST Patient has POLST: No POLST Status: Full Code PD ED PE EXPANDED - General General: Other (Fidgeting in bed, picking at things in the air.) - Eyes Eyes: PERRL - Cardiac Cardiac: Regular Rate, Radial strong equal, Pedal strong equal, Cap refill < 2 sec - Respiratory Respiratory: Clear to ausultation woody. No: Distress, Labored - Abdomen Abdomen: Normal Bowel sounds. No: Tender to palpation - Derm Derm: Normal color, Warm and dry, Bruising (Bruising noted on anterior chest and lower abdomen.) - Extremities Extremities: Normal. No: Deformity, Tenderness - Neuro Neuro: Confused, CNII-XII intact - GCS Eye Opening: Spontaneous Motor: Localizes to Pain Verbal: Inappropriate Total: 12 Results - Vitals Vitals: Vital Signs - 24 hr 12/22/20 12/22/20 12/22/20 17:31 18:00 19:51 Temperature 35.7 C L Heart Rate 79 86 71 Respiratory 18 16 13 Rate Blood Pressure 157/108 H 120/107 H 126/93 H O2 Saturation 98 95 94 Oxygen O2 Source [] Room air O2 Source Room air - EKG (time done) 1928 Rate: Rate (enter#) (72) Rhythm: NSR [place]: Normal Intervals: Normal OR, Prolonged QT, RBBB Ischemia: Q waves (inferior) Compare to prior EKG: Unchanged from prior EKG Computer interpretation: Agree with computer - Labs Labs: Laboratory Tests 12/22/20 12/22/20 12/22/20 18:12 18:12 18:22 WBC 15.3 H RBC 4.53 Hgb 13.9 Hct 42.6 MCV 94.0 MCH 30.7 MCHC 32.6 RDW 14.0 Plt Count 331 MPV 10.5 Neut # (Auto) 11.7 H Lymph # (Auto) 2.2 [place] # (Auto) 1.2 H Eos # (Auto) 0.0 Baso # (Auto) 0.1 Absolute Nucleated RBC 0.00 Nucleated RBC % 0.0 Sodium 140 Potassium 3.9 Chloride 101 Carbon Dioxide 24 Anion Gap 15.0 H BUN 34 H Creatinine 1.2 H Estimated GFR (MDRD) 45 L Glucose 125 H Calcium 9.6 Total Bilirubin 0.5 AST 23 ALT 24 Alkaline Phosphatase 101 Total Creatine Kinase 221 Total Protein 8.3 H Albumin 4.5 Globulin 3.8 Albumin/Globulin Ratio 1.2 Lipase 26 TSH 1.47 Urine Color Urine Clarity Urine pH Ur Specific Mcintosh Urine Protein Urine Glucose (UA) Urine Ketones Urine Occult Blood Urine Nitrite Urine Bilirubin Urine Urobilinogen Ur Leukocyte Esterase Ur Microscopic Review Urine Culture Comments Nasal Adenovirus (PCR) Nasal B. parapertussis DNA (PCR) Nasal Coronavir 229E PCR Nasal Coronavir HKU1 PCR Nasal Coronavir NL63 PCR Nasal Coronavir OC43 PCR Nasal Enterovir/Rhinovir PCR Nasal Influenza B PCR Nasal Influenza A PCR Nasal Parainfluen 1 PCR Nasal Parainfluen 2 PCR Nasal Parainfluen 3 PCR Nasal Parainfluen 4 PCR Nasal RSV (PCR) Nasal B.pertussis DNA PCR Nasal C.pneumoniae (PCR) Willie Human Metapneumo PCR Nasal M.pneumoniae (PCR) Nasal SARS-CoV-2 (PCR) Salicylates < 6.0 Urine Opiates Screen Ur Oxycodone Screen Urine Methadone Screen Ur Propoxyphene Screen Acetaminophen < 10 L Ur Barbiturates Screen Ur Tricyclics Screen Ur Phencyclidine Scrn Ur Amphetamine Screen U Methamphetamines Scrn U Benzodiazepines Scrn Urine Cocaine Screen U Cannabinoids Screen Ethyl Alcohol < 5.0 12/22/20 12/22/20 18:37 18:40 WBC RBC Hgb Hct MCV MCH MCHC RDW Plt Count MPV Neut # (Auto) Lymph # (Auto) [place] # (Auto) Eos # (Auto) Baso # (Auto) Absolute Nucleated RBC Nucleated RBC % Sodium Potassium Chloride Carbon Dioxide Anion Gap BUN Creatinine Estimated GFR (MDRD) Glucose Calcium Total Bilirubin AST ALT Alkaline Phosphatase Total Creatine Kinase Total Protein Albumin Globulin Albumin/Globulin Ratio Lipase TSH Urine Color YELLOW Urine Clarity CLEAR Urine pH 5.0 Ur Specific Mc[place]osh 1.025 Urine Protein NEGATIVE Urine Glucose (UA) NEGATIVE Urine Ketones NEGATIVE Urine Occult Blood NEGATIVE Urine Nitrite NEGATIVE Urine Bilirubin NEGATIVE Urine Urobilinogen 0.2 (NORMAL) Ur Leukocyte Esterase NEGATIVE Ur Microscopic Review NOT INDICATED Urine Culture Comments NOT INDICATED Nasal Adenovirus (PCR) NOT DETECTED Nasal B. parapertussis DNA (PCR) NOT DETECTED Nasal Coronavir 229E PCR NOT DETECTED Nasal Coronavir HKU1 PCR NOT DETECTED Nasal Coronavir NL63 PCR NOT DETECTED Nasal Coronavir OC43 PCR NOT DETECTED Nasal Enterovir/Rhinovir PCR NOT DETECTED Nasal Influenza B PCR NOT DETECTED Nasal Influenza A PCR NOT DETECTED Nasal Parainfluen 1 PCR NOT DETECTED Nasal Parainfluen 2 PCR NOT DETECTED Nasal Parainfluen 3 PCR NOT DETECTED Nasal Parainfluen 4 PCR NOT DETECTED Nasal RSV (PCR) NOT DETECTED Nasal B.pertussis DNA PCR NOT DETECTED Nasal C.pneumoniae (PCR) NOT DETECTED Willie Human Metapneumo PCR NOT DETECTED Nasal M.pneumoniae (PCR) NOT DETECTED Nasal SARS-CoV-2 (PCR) NOT DETECTED Salicylates Urine Opiates Screen NEGATIVE Ur Oxycodone Screen POSITIVE H Urine Methadone Screen NEGATIVE Ur Propoxyphene Screen NEGATIVE Acetaminophen Ur Barbiturates Screen NEGATIVE Ur Tricyclics Screen NEGATIVE Ur Phencyclidine Scrn NEGATIVE Ur Amphetamine Screen NEGATIVE U Methamphetamines Scrn NEGATIVE U Benzodiazepines Scrn NEGATIVE Urine Cocaine Screen NEGATIVE U Cannabinoids Screen NEGATIVE Ethyl Alcohol PD MEDICAL DECISION MAKING - ED course Complexity details: reviewed results, re-evaluated patient, d/w patient ED course: 65-year-old female presents to the emergency department for evaluation of altered mental status. She was discharged from this hospital yesterday after a lengthy stay again for altered mental status and encephalopathy. When EMS arrived to the scene today they noted that there were a lot of empty Sudafed bottles in the house with a note stating to buy more Sudafed. On presentation to the emergency department she did not have an obvious focal deficit she would localize pain and had a wide stare into the distance. Screening labs do show moderate leukocytosis of 15,000. She does appear somewhat dehydrated with an elevated BUN and creatinine in comparison to discharge yesterday. 2 L of IV fluids have been ordered. Urine tox screen is positive for opiates only. Her amphetamine screen is negative. However at this time she does not appear safe or stable for discharge home. There was concern with the last hospitalization if she was appropriate for discharge home versus going to a care facility. It may be that she is misusing home medications/sudafed. Head CT was deferred if there are no obvious focal deficits and there is concern for Sudafed overuse. Urine does not show signs of infection. An X-ray of her chest is pending and not yet completed. I have discussed this patient with Dr. Anthony who graciously agrees to accept the patient for further evaluation. Patient will be admitted on an observation status. Departure - Departure Disposition: ED Place in Observation Clinical Impression: Altered mental status Qualifiers: Altered mental status type: coma Coma depth: [place] coma 9-12 Coma timing: at arrival to emergency department Qualified Code(s): R40.2422 - [place] coma scale score 9-12, at arrival to emergency department Condition: Stable Record reviewed to determine appropriate education?: Yes
[2020-12-22 18:26] LABS: BASOPHILS # (AUTO) 0.1 10^3/uL (0.0-0.1); BASOPHILS % (AUTO) 0.7 %; EOSINOPHILS % (AUTO) 0.1 %; HCT - HEMATOCRIT 42.6 % (37.0-47.0); HGB - HEMOGLOBIN 13.9 g/dL (12.0-16.0); LYMPHOCYTES # (AUTO) 2.2 10^3/uL (1.5-3.5); LYMPHOCYTES % (AUTO) 14.4 %; MEAN CORPUSCULAR HEMOGLOBIN 30.7 pg (27.0-31.0); MEAN CORPUSCULAR HGB CONC 32.6 g/dL (32.0-36.0); MEAN PLATELET VOLUME 10.5 fL (7.9-10.8); MONOCYTES # (AUTO) 1.2 10^3/uL (0.0-1.0); MONOCYTES % (AUTO) 7.9 %; NEUTROPHILS # (AUTO) 11.7 10^3/uL (1.5-6.6); NEUTROPHILS % (AUTO) 76.4 %; PLT - PLATELET COUNT 331 10^3/uL (130-450); RED BLOOD COUNT 4.53 10^6/uL (4.20-5.40); WHITE BLOOD COUNT 15.3 x10^3/uL (4.8-10.8)
[2020-12-22 18:41] LABS: ACETAMINOPHEN < 10 ug/mL (10-30); ALBUMIN 4.5 g/dL (3.2-5.5); ALBUMIN/GLOBULIN RATIO 1.2 (1.0-2.2); ALKALINE PHOSPHATASE 101 IU/L (42-121); ALT ALANINE AMINOTRANSFERASE 24 IU/L (10-60); AST ASPARTATE AMINOTRANSFERASE 23 IU/L (10-42); BILIRUBIN,TOTAL 0.5 mg/dL (0.2-1.0); BUN - BLOOD UREA NITROGEN 34 mg/dL (6-20); CALCIUM 9.6 mg/dL (8.5-10.3); CARBON DIOXIDE - CO2 24 mmol/L (21-32); CHLORIDE 101 mmol/L (101-111); CK- CREATINE KINASE 221 IU/L (22-269); CREATININE 1.2 mg/dL (0.4-1.0); ETOH - ETHANOL < 5.0 mg/dL; GFR - MDRD 45 (>89); GLUCOSE 125 mg/dL (70-100); LIPASE 26 U/L (22-51); POTASSIUM 3.9 mmol/L (3.5-5.0); SALICYLATE < 6.0 mg/dL; SODIUM 140 mmol/L (135-145); TOTAL PROTEIN 8.3 g/dL (6.7-8.2)
[2020-12-22 18:50] LABS: MUDS CUTOFF CONCENTRATIONS CUTOFF CONC BELOW:
[2020-12-22 18:53] LABS: BILIRUBIN,URINE NEGATIVE (NEGATIVE); CLARITY,URINE CLEAR (CLEAR); GLUCOSE, URINE (UA) NEGATIVE (NEGATIVE); KETONES,URINE (UA) NEGATIVE (NEGATIVE); LEUKOCYTE ESTERASE, URINE NEGATIVE (NEGATIVE); NITRITE,URINE NEGATIVE (NEGATIVE); OCCULT BLOOD,URINE NEGATIVE (NEGATIVE); PROTEIN,URINE NEGATIVE (NEGATIVE); UROBILINOGEN,URINE 0.2 (NORMAL) E.U./dL (NORMAL)
[2020-12-22 19:02] LABS: AMPHETAMINE SCREEN,URINE NEGATIVE (NEGATIVE); BARBITURATE SCREEN,UR NEGATIVE (NEGATIVE); BENZODIAZEPINES SCREEN, URINE NEGATIVE (NEGATIVE); COCAINE SCREEN URINE NEGATIVE (NEGATIVE); METHADONE SCREEN, URINE NEGATIVE (NEGATIVE); METHAMPHETAMINES SCREEN, URINE NEGATIVE (NEGATIVE); OPIATE SCREEN, URINE NEGATIVE (NEGATIVE); OXYCODONE SCREEN, URINE POSITIVE (NEGATIVE); PROPOXYPHENE SCREEN, URINE NEGATIVE (NEGATIVE); THC CANNABINOID SCREEN, URINE NEGATIVE (NEGATIVE); TRICYCLIC ANTIDEPRESSANT,URINE NEGATIVE (NEGATIVE)
[2020-12-22 19:40] LABS: B. PARAPERTUSSIS- RESP PCR PAN NOT DETECTED; B. PERTUSSIS- RESP PCR PANEL NOT DETECTED; C. PNEUMONIAE- RESP PCR PANEL NOT DETECTED; CORONAVIRUS 229E-RESP PCR NOT DETECTED; CORONAVIRUS HKU1-RESP PCR NOT DETECTED; CORONAVIRUS NL63-RESP PCR NOT DETECTED; CORONAVIRUS OC43-RESP PCR NOT DETECTED; HUMAN METAPNEUMOVIRUS NOT DETECTED; INFLUENZA A- RESP PCR PANEL NOT DETECTED; INFLUENZA B - RESP PCR PANEL NOT DETECTED; M. PNEUMONIAE- RESP PCR PANEL NOT DETECTED; PARAINFLUENZA VIRUS 1 NOT DETECTED; PARAINFLUENZA VIRUS 2 NOT DETECTED; PARAINFLUENZA VIRUS 3 NOT DETECTED; PARAINFLUENZA VIRUS 4 NOT DETECTED; RHINOVIRUS/ENTEROVIRUS NOT DETECTED; RSV- RESP PCR PANEL NOT DETECTED; SARS-CoV-2 -RESP PCR PANEL NOT DETECTED
[2020-12-22] MEDS ORDERED: ONDANSETRON 4 MG/2 ML VIAL IVP PRN (20:11)
[2020-12-22] MEDS ORDERED: SODIUM CHLORIDE FLUSH 0.9% 10 ML SYRINGE IVP PRN (20:11)
[2020-12-22] MEDS ORDERED: ONDANSETRON ODT 4 MG TABLET TL PRN (20:11)
--- NOTE | 2020-12-22 20:14 | HISTORY & PHYSICAL EXAMINATION ---
Chief Complaint - Chief Complaint Chief Complaint: Change in mental status History of Present Illness - Admitted From Admitted From:: Home - History Obtained From Records Reviewed: Yes History obtained from: ER Provider, EMR Exam Limitations: Patient is encephalopathic and unable to provide a history. - History of Present Illness HPI Comment/Other: This is a 65-year-old female with a past medical history significant for mu ltiple sclerosis, seizure disorder, hypothyroidism, recurrent urinary tract infections who presents today after being found altered by neighbors. The patient was just discharged home yesterday after she had a hospitalization for similar symptoms. At that time she was found to be quite dehydrated and she responded well to IV fluids. Her hospital course was prolonged as it was felt that she needed a fci facility. She was accepted at [facility] but unfortunately insurance authorization took quite some time to approve this stay. Her insurance finally approved the SNF yesterday and the plan was to discharge her to [facility] facility but the patient ultimately declined this and preferred to go home. She was reportedly seen by her neighbors this morning and she was at her baseline. This afternoon it was noted that she was acting quite strangely so they called EMS. When she arrived to our emergency department, she was picking at the air and not following commands. It was noted by EMS that she had multiple bottles of Sudafed and there was a note stating to buy more Sudafed. I am unable to obtain any history from the patient as she is encephalopathic and unable to communicate. In the emergency department, her labs were noted to be significant for a white count of 15.3. Her BUN is elevated at 34 and her creatinine at 1.2. Her urinalysis and respiratory PCR panel were unremarkable. Toxicology screen was positive for oxycodone otherwise negative including salicylates, acetaminophen, ethyl alcohol. Given her ongoing encephalopathy, medicine was consulted for admission. I could not discuss goals of care with the patient due to her encephalopathy and therefore she will be made a full code. 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 The patient has been adopted by a stepfather and he is still alive in his 80s. Her father of bone cancer when she was a very little girl. Mom is and of heart disease but had lung cancer before she . 1 brother of the same bone cancer that his father of. 1 brother is alive but has A. fib. No sisters. No children. Living arrangement: At home Living Situation: Alone Social History Notes: Unable to update the social history given her encephalopathy but review of prior review of systems revealed that she is a smoker and does not have a history of alcohol abuse. She is a history of i llicit drug use, probably LSD back in the 1970s. - Substance History Use: Uses substance without health or social issues: Tobacco - POLST Patient has POLST: No POLST Status: Full Code Meds/Allgy - Home Medications Home Medications: Ambulatory Orders Medication Instructions Recorded Confirmed Cholestyramine [Questran] 4 gm PO QPM 04/28/13 12/09/20 Baclofen 10 mg PO QID 07/18/19 12/09/20 Glucos Sul 2Kcl/MSM/Chond/C/Mn 1 cap PO DAILY 07/18/19 12/09/20 [Glucosamine Chondroitin Cap] Levothyroxine Sodium 50 mcg PO DAILY 07/18/19 12/09/20 Multivitamin/Iron/Folic Acid 1 ea ORAL DAILY 07/18/19 12/09/20 [Centrum Women Tablet] Methylphenidate HCl 40 mg PO DAILY 02/10/20 12/09/20 [Methylphenidate ER] levETIRAcetam [Roweepra] 500 mg PO BID 02/10/20 12/09/20 Acetaminophen [Tylenol] 650 mg PO Q4HR PRN 06/15/20 12/09/20 Oxymetazoline HCl [Afrin] 2 sprays WILLIE BID PRN bottle 06/15/20 12/09/20 Calcium Carbonate/Vitamin D3 1 each PO DAILY 12/09/20 12/09/20 [Calcium 500Mg-Vit D3 15Mcg Tab] Furosemide [Lasix] 20 mg PO DAILY 12/09/20 12/09/20 [place]-3/Dha/Epa/Fish Oil [Fish Oil 1 cap PO DAILY 12/09/20 12/09/20 1,000 mg Softgel] Atorvastatin [Lipitor] 40 mg PO QPM #0 12/21/20 12/09/20 Clobetasol 0.05% Oint [Temovate 1 applic TOP BID 12/21/20 0.05% Oint] Clopidogrel [Plavix] 75 mg PO DAILY #0 12/21/20 12/09/20 Metoprolol Succinate [Toprol Xl] 25 mg PO BID #0 12/21/20 12/09/20 Nystatin [Nystop] 1 applic TOP BID bottle 12/21/20 - Allergies Allergies/Adverse Reactions: Allergies Allergy/AdvReac Type Severity Reaction Status Date / Time No Known Drug Allergies Allergy Verified 12/22/20 18:10 Review of Systems - All Other Systems All Other Systems: reports: Other (Unable to obtain due to her encephalopathy.) Prior Level of Functionality: She normally lives alone and is independent in her ADLs. A skilled nurse fac [facility] was recommended during her last hospitalization but she declined this. Exam - Vital Signs Reviewed Vital Signs: Yes Vital Signs: Vital Signs x48h Temp Pulse Resp BP Pulse Ox 12/22/20 19:51 71 13 126/93 H 94 12/22/20 18:00 86 16 120/107 H 95 12/22/20 17:31 35.7 C L 79 18 157/108 H 98 - Physical Exam General Appearance: positive: Lethargic, Other (She is lethargic but will open her eyes to painful stimuli such as sternal rub. Will quickly go back to sleep.) Eyes Bilateral: positive: Other (Pupils constricted bilaterally.) ENT: positive: Dry mucous membranes. negative: No signs of dehydration Neck: positive: Nml inspection Respiratory: positive: No respiratory distress. negative: Wheezes, Rales Cardiovascular: positive: Regular rate & rhythm, No murmur. negative: Tach ycardia Abdomen: positive: Non-tender, No distention. negative: Tenderness Skin: positive: Warm, Dry Extremities: positive: No pedal edema Neurologic/Psychiatric: positive: Other (Unable to perform a full neurologic exam due to her encephalopathy. She does move all 4 extremities responding to painful stimuli.) Conclusion/Plan - Problem List (1) Acute metabolic encephalopathy Conclusion/Plan: Suspect this is related to medication misuse. She was found with a note reminding her to buy more Sudafed and she had multiple bottles of Sudafed at home and I do wonder if she is missed using this. We did not obtain a CT of the head given lack of focal deficits. Her labs are unremarkable except for acute kidney injury. Her TSH within normal limits. This seems very similar to her prior presentation and she only responds with a little IV hydration and time. We will continue her on IV lactated Ringer's and avoid all sedatives. She likely will need fci facility which was recommended to her during her prior hospitalization and we will encourage this given she was home for less than 24 hours. We will check an ammonia level. (2) Acute kidney injury Conclusion/Plan: This is likely prerenal injury. Her creatinine is elevated at 1.2 and her BUN at 35. We will hydrate her with IV lactated Ringer's and recheck in the morning. (3) Cognitive impairment Conclusion/Plan: She did have a cognitive evaluation during her prior hospitalization by OT and she scored 16 out of 30. It was felt that she would likely benefit from assisted living and given the quick readmission, will discuss caregivers at home or discharge to assisted living at some point. (4) Seizure disorder Conclusion/Plan: Stable. Her Keppra was therapeutic and this was checked during her prior hospitalization. We will continue her Keppra but will do this intravenously given her encephalopathy. We have recommended an outpatient EEG to ensure that she is not having seizures at home which may be leading to her altered mental status. (5) Multiple sclerosis Conclusion/Plan: Stable. She was scheduled to follow-up with her neurologist about 1 week ago but she was hospitalized during that time. She went to follow-up with her neurologist at [facility] once she is discharged. (6) Hypothyroid Conclusion/Plan: We will continue her home Synthroid. Her TSH is within normal limits. - Lab Results Lab results reviewed: Yes Fish Bones: 12/22/20 18:22 12/22/20 18:12 Core Measures - Anticipated LOS I expect patient to be DC'd or transferred within 96 hours.: Yes - Issues Hospital Issues and Management Plan: 65-year-old female with history of cognitive impairment, seizure disorder, multiple sclerosis presents again after being found down at home. She was just discharged yesterday. Concern is for medication misuse and so we will place her in observation for IV hydration and hold sedatives. - DVT/VTE - Prophylaxis VTE/DVT Device ordered at admit?: Yes VTE/DVT Prophylaxis med ordered at admit?: Yes
[2020-12-22] MEDS: LACTATED RINGERS 1,000 ML IV SCH (21:33)
--- NOTE | 2020-12-22 21:48 | XRAY Report ---
PROCEDURE: Chest 1 View X-Ray INDICATIONS: chest pain TECHNIQUE: One view of the chest was acquired. COMPARISON: None FINDINGS: Surgical changes and devices: None. Lungs and pleura: No pleural effusions or pneumothorax. Lungs are clear. Mediastinum: Mediastinal contours appear normal. Heart size is normal. Bones and chest wall: No suspicious bony lesions. Overlying soft tissues appear unremarkable. IMPRESSION: No acute cardiopulmonary abnormality Findings concur with preliminary report. Reviewed by: Naren Powell on 12/22/2020 9:46 PM PDT Approved by: Naren Powell on 12/22/2020 9:46 PM PDT Station ID: [id number]
[2020-12-22] MEDS: levETIRAcetam INJ 500 MG in SODIUM CHLORIDE 0.9% 100ML 100 ML IV SCH (22:12)
[2020-12-23] MEDS: SODIUM CHLORIDE FLUSH 0.9% 10 ML SYRINGE IVP SCH ×4 (00:20→23:37)
[2020-12-23 05:13] LABS: BASOPHILS # (AUTO) 0.1 10^3/uL (0.0-0.1); BASOPHILS % (AUTO) 0.8 %; EOSINOPHILS # (AUTO) 0.1 10^3/uL (0.0-0.7); EOSINOPHILS % (AUTO) 0.7 %; HCT - HEMATOCRIT 39.2 % (37.0-47.0); HGB - HEMOGLOBIN 12.5 g/dL (12.0-16.0); LYMPHOCYTES # (AUTO) 2.6 10^3/uL (1.5-3.5); LYMPHOCYTES % (AUTO) 23.4 %; MEAN CORPUSCULAR HEMOGLOBIN 30.3 pg (27.0-31.0); MEAN CORPUSCULAR HGB CONC 31.9 g/dL (32.0-36.0); MEAN CORPUSCULAR VOLUME 95.1 fL (81.0-99.0); MEAN PLATELET VOLUME 10.7 fL (7.9-10.8); MONOCYTES # (AUTO) 0.9 10^3/uL (0.0-1.0); MONOCYTES % (AUTO) 7.7 %; NEUTROPHILS # (AUTO) 7.4 10^3/uL (1.5-6.6); NEUTROPHILS % (AUTO) 66.9 %; PLT - PLATELET COUNT 302 10^3/uL (130-450); RED BLOOD COUNT 4.12 10^6/uL (4.20-5.40); RED CELL DISTRIBUTION WIDTH 14.3 % (12.0-15.0); WHITE BLOOD COUNT 11.1 x10^3/uL (4.8-10.8)
[2020-12-23] MEDS: LACTATED RINGERS 1,000 ML IV SCH (05:18)
[2020-12-23 05:25] LABS: CALCIUM 9.2 mg/dL (8.5-10.3); CREATININE 0.8 mg/dL (0.4-1.0); MAGNESIUM 2.1 mg/dL (1.7-2.8); POTASSIUM 3.7 mmol/L (3.5-5.0)
[2020-12-23] MEDS: ENOXAPARIN 40 MG/0.4 ML SYRINGE SUBQ SCH (10:05)
--- NOTE | 2020-12-23 10:05 | PHARMACY PROGRESS NOTE ---
- Best Possible Medication History Admit Date and Time: 12/22/202010 Processed by: Pharmacy Medication History completed: Yes Patient Interview: Completed (MED REC COMPLETED BY PHARMACY, USING THE CONFIRMED MED REC FROM PREVIOUS ADMISSION) As the person ultimately responsible for medication therapy, providers are able to order a medication from an existing home medication list in [facility] via the "Reconcile Routine" prior to Confirmation of that medication by clinical support nurse. Such practice is discouraged except when the physician, in their clinical judgment, deems that a medical need exists for a medication without regard to previous use.
[2020-12-23] MEDS: ACETAMINOPHEN 325 MG TABLET PO PRN ×4 (11:38→23:44)
[2020-12-23] MEDS: levETIRAcetam INJ 500 MG in SODIUM CHLORIDE 0.9% 100ML 100 ML IV SCH ×2 (11:39→20:17)
--- NOTE | 2020-12-23 15:30 | PROVIDER PROGRESS NOTE ---
Subjective - Prog Note Date Prog Note Date: 12/23/20 Prog Note Time: 08:00 - Subjective Pt reports feeling: Improved Subjective: I saw her this morning as she was eating breakfast. She was awake, alert. Sitting up in chair. Knew that she was in the hospital. Shrugged her shoulders and told me she could not remember how she got here. Does not understand what the issue is about Sudafed and she does not remember that either. As she is talking to me she is trying to eat her eggs. She is stabbing them with her butter knife and then trying to bring the butter knife to her mouth. This is an unsuccessful effort. I then remind her she has a fork or a spoon. I put the spoon in her hand and she is delighted to then be able to bring the food to her mouth. She denies any chest pain, palpitations, shortness of breath. Current Medications - Current Medications Current Medications: Active Medications Acetaminophen (Acetaminophen 325 Mg Tablet) 650 mg PO Q4HR PRN PRN Reason: Pain 1 to 4 Last Admin: 12/23/20 11:38 Dose: 650 mg Documented by: Enoxaparin Sodium (Enoxaparin 40 Mg/0.4 Ml Syringe) 40 mg SUBQ DAILY [facility] Last Admin: 12/23/20 10:05 Dose: 40 mg Documented by: Levetiracetam 500 mg/ Sodium (Chloride) 105 mls @ 400 mls/hr IV BID [facility] Last Infusion: 12/23/20 11:59 Dose: Infused Documented by: Ondansetron HCl (Ondansetron Odt 4 Mg Tablet) 4 mg TL Q6HR PRN PRN Reason: Nausea / Vomiting Ondansetron HCl (Ondansetron 4 Mg/2 Ml Vial) 4 mg IVP Q6HR PRN PRN Reason: Nausea / Vomiting Sodium Chloride (Sodium Chloride Flush 0.9% 10 Ml Syringe) 10 ml IVP PRN PRN PRN Reason: NEEDED PER PROVIDER ORDERS Sodium Chloride (Sodium Chloride Flush 0.9% 10 Ml Syringe) 10 ml IVP 0100,0900,1700 [facility] Last Admin: 12/23/20 13:48 Dose: Not Given Documented by: Cholestyramine [Questran] 4 gm PO QPM 04/28/13 Baclofen 10 mg PO QID 07/18/19 Glucos Sul 2Kcl/MSM/Chond/C/Mn [Glucosamine Chondroitin Cap] 1 cap PO DAILY 07/18/19 Levothyroxine Sodium 50 mcg PO DAILY 07/18/19 Multivitamin/Iron/Folic Acid [Centrum Women Tablet] 1 ea ORAL DAILY 07/18/19 Methylphenidate HCl [Methylphenidate ER] 40 mg PO DAILY 02/10/20 levETIRAcetam [Roweepra] 500 mg PO BID 02/10/20 Calcium Carbonate/Vitamin D3 [Calcium 500Mg-Vit D3 15Mcg Tab] 1 each PO DAILY 12/09/20 Furosemide [Lasix] 20 mg PO DAILY 12/09/20 [place]-3/Dha/Epa/Fish Oil [Fish Oil 1,000 mg Softgel] 1 cap PO DAILY 12/09/20 Objective - Vital Signs/Intake & Output Reviewed Vital Signs: Yes Vital Signs: Vital Signs x48h Temp Pulse Resp BP Pulse Ox 12/23/20 13:15 36.8 C 82 18 103/63 100 12/23/20 09:45 36.4 C L 87 16 105/71 95 Intake & Output: Intake & Output 12/20/20 12/21/20 12/22/20 12/23/20 23:59 23:59 23:59 23:59 Intake Total 1142.5 2667.5 Balance 1142.5 2667.5 - Objective General Appearance: positive: Alert, Other (Disheveled white female who looks much older than stated age. Speech is lucid. Voice is slightly hoarse.) Eyes Bilateral: positive: PERRL, EOMI ENT: positive: No signs of dehydration Neck: positive: No JVD. negative: Stiff neck Respiratory: positive: No respiratory distress. negative: Wheezes, Rales, Rhonchi Cardiovascular: positive: Regular rate & rhythm. negative: Systolic murmur, Gallop/S4, Friction rub Abdomen: positive: Non-tender, No organomegaly, Nml bowel sounds, No distention Skin: positive: Warm, Dry, Pallor Extremities: positive: Non-tender, Pedal edema Neurologic/Psychiatric: positive: CN's nml (2-12), Disoriented to time. negative: Motor nml (Week. Discoordinated movements at times. From a thought process perspective watching her try instead of the eggs with her knife was interesting) - Lab Results Fish Bones: 12/23/20 04:35 12/23/20 04:35 Other Labs: Lab Results x24hrs 12/23/20 12/23/20 12/22/20 Range/Units 04:35 04:35 20:33 WBC 11.1 H (4.8-10.8) x10^3/uL RBC 4.12 L (4.20-5.40) 10^6/uL Hgb 12.5 (12.0-16.0) g/dL Hct 39.2 (37.0-47.0) % MCV 95.1 (81.0-99.0) fL MCH 30.3 (27.0-31.0) pg MCHC 31.9 L (32.0-36.0) g/dL RDW 14.3 (12.0-15.0) % Plt Count 302 (130-450) 10^3/uL MPV 10.7 (7.9-10.8) fL Neut # (Auto) 7.4 H (1.5-6.6) 10^3/uL Lymph # (Auto) 2.6 (1.5-3.5) 10^3/uL [place] # (Auto) 0.9 (0.0-1.0) 10^3/uL Eos # (Auto) 0.1 (0.0-0.7) 10^3/uL Baso # (Auto) 0.1 (0.0-0.1) 10^3/uL Absolute Nucleated RBC 0.00 x10^3/uL Nucleated RBC % 0.0 /100WBC Sodium 144 (135-145) mmol/L Potassium 3.7 (3.5-5.0) mmol/L Chloride 109 (101-111) mmol/L Carbon Dioxide 26 (21-32) mmol/L Anion Gap 9.0 (6-13) BUN 24 H (6-20) mg/dL Creatinine 0.8 (0.4-1.0) mg/dL Estimated GFR (MDRD) 72 L (>89) Glucose 106 H (70-100) mg/dL Calcium 9.2 (8.5-10.3) mg/dL Magnesium 2.1 (1.7-2.8) mg/dL Total Bilirubin (0.2-1.0) mg/dL AST (10-42) IU/L ALT (10-60) IU/L Alkaline Phosphatase (42-121) IU/L Ammonia 20.9 (7-35) umol/L Total Creatine Kinase (22-269) IU/L Total Protein (6.7-8.2) g/dL Albumin (3.2-5.5) g/dL Globulin (2.1-4.2) g/dL Albumin/Globulin Ratio (1.0-2.2) Lipase (22-51) U/L TSH (0.34-5.60) uIU/mL Urine Color Urine Clarity (CLEAR) Urine pH (5.0-7.5) PH Ur Specific [place] (1.002-1.030) Urine Protein (NEGATIVE) mg/dL Urine Glucose (UA) (NEGATIVE) mg/dL Urine Ketones (NEGATIVE) mg/dL Urine Occult Blood (NEGATIVE) Urine Nitrite (NEGATIVE) Urine Bilirubin (NEGATIVE) Urine Urobilinogen (NORMAL) E.U./dL Ur Leukocyte Esterase (NEGATIVE) Ur Microscopic Review Urine Culture Comments Nasal Adenovirus (PCR) Nasal B. parapertussis DNA (PCR) Nasal Coronavir 229E PCR Nasal Coronavir HKU1 PCR Nasal Coronavir NL63 PCR Nasal Coronavir OC43 PCR Nasal Enterovir/Rhinovir PCR Nasal Influenza B PCR Nasal Influenza A PCR Nasal Parainfluen 1 PCR Nasal Parainfluen 2 PCR Nasal Parainfluen 3 PCR Nasal Parainfluen 4 PCR Nasal RSV (PCR) Nasal B.pertussis DNA PCR Nasal C.pneumoniae (PCR) Jaya Human Metapneumo PCR Nasal M.pneumoniae (PCR) Nasal SARS-CoV-2 (PCR) Salicylates mg/dL Urine Opiates Screen (NEGATIVE) Ur Oxycodone Screen (NEGATIVE) Urine Methadone Screen (NEGATIVE) Ur Propoxyphene Screen (NEGATIVE) Acetaminophen (10-30) ug/mL Ur Barbiturates Screen (NEGATIVE) Ur Tricyclics Screen (NEGATIVE) Ur Phencyclidine Scrn (NEGATIVE) Ur Amphetamine Screen (NEGATIVE) U Methamphetamines Scrn (NEGATIVE) U Benzodiazepines Scrn (NEGATIVE) Urine Cocaine Screen (NEGATIVE) U Cannabinoids Screen (NEGATIVE) Ethyl Alcohol mg/dL 12/22/20 12/22/20 12/22/20 Range/Units 18:40 18:37 18:22 WBC 15.3 H (4.8-10.8) x10^3/uL RBC 4.53 (4.20-5.40) 10^6/uL Hgb 13.9 (12.0-16.0) g/dL Hct 42.6 (37.0-47.0) % MCV 94.0 (81.0-99.0) fL MCH 30.7 (27.0-31.0) pg MCHC 32.6 (32.0-36.0) g/dL RDW 14.0 (12.0-15.0) % Plt Count 331 (130-450) 10^3/uL MPV 10.5 (7.9-10.8) fL Neut # (Auto) 11.7 H (1.5-6.6) 10^3/uL Lymph # (Auto) 2.2 (1.5-3.5) 10^3/uL [place] # (Auto) 1.2 H (0.0-1.0) 10^3/uL Eos # (Auto) 0.0 (0.0-0.7) 10^3/uL Baso # (Auto) 0.1 (0.0-0.1) 10^3/uL Absolute Nucleated RBC 0.00 x10^3/uL Nucleated RBC % 0.0 /100WBC Sodium (135-145) mmol/L Potassium (3.5-5.0) mmol/L Chloride (101-111) mmol/L Carbon Dioxide (21-32) mmol/L Anion Gap (6-13) BUN (6-20) mg/dL Creatinine (0.4-1.0) mg/dL Estimated GFR (MDRD) (>89) Glucose (70-100) mg/dL Calcium (8.5-10.3) mg/dL Magnesium (1.7-2.8) mg/dL Total Bilirubin (0.2-1.0) mg/dL AST (10-42) IU/L ALT (10-60) IU/L Alkaline Phosphatase (42-121) IU/L Ammonia (7-35) umol/L Total Creatine Kinase (22-269) IU/L Total Protein (6.7-8.2) g/dL Albumin (3.2-5.5) g/dL Globulin (2.1-4.2) g/dL Albumin/Globulin Ratio (1.0-2.2) Lipase (22-51) U/L TSH (0.34-5.60) uIU/mL Urine Color YELLOW Urine Clarity CLEAR (CLEAR) Urine pH 5.0 (5.0-7.5) PH Ur Specific [place] 1.025 (1.002-1.030) Urine Protein NEGATIVE (NEGATIVE) mg/dL Urine Glucose (UA) NEGATIVE (NEGATIVE) mg/dL Urine Ketones NEGATIVE (NEGATIVE) mg/dL Urine Occult Blood NEGATIVE (NEGATIVE) Urine Nitrite NEGATIVE (NEGATIVE) Urine Bilirubin NEGATIVE (NEGATIVE) Urine Urobilinogen 0.2 (NORMAL) (NORMAL) E.U./dL Ur Leukocyte Esterase NEGATIVE (NEGATIVE) Ur Microscopic Review NOT INDICATED Urine Culture Comments NOT INDICATED Nasal Adenovirus (PCR) NOT DETECTED Nasal B. parapertussis DNA (PCR) NOT DETECTED Nasal Coronavir 229E PCR NOT DETECTED Nasal Coronavir HKU1 PCR NOT DETECTED Nasal Coronavir NL63 PCR NOT DETECTED Nasal Coronavir OC43 PCR NOT DETECTED Nasal Enterovir/Rhinovir PCR NOT DETECTED Nasal Influenza B PCR NOT DETECTED Nasal Influenza A PCR NOT DETECTED Nasal Parainfluen 1 PCR NOT DETECTED Nasal Parainfluen 2 PCR NOT DETECTED Nasal Parainfluen 3 PCR NOT DETECTED Nasal Parainfluen 4 PCR NOT DETECTED Nasal RSV (PCR) NOT DETECTED Nasal B.pertussis DNA PCR NOT DETECTED Nasal C.pneumoniae (PCR) NOT DETECTED Jaya Human Metapneumo PCR NOT DETECTED Nasal M.pneumoniae (PCR) NOT DETECTED Nasal SARS-CoV-2 (PCR) NOT DETECTED Salicylates mg/dL Urine Opiates Screen NEGATIVE (NEGATIVE) Ur Oxycodone Screen POSITIVE H (NEGATIVE) Urine Methadone Screen NEGATIVE (NEGATIVE) Ur Propoxyphene Screen NEGATIVE (NEGATIVE) Acetaminophen (10-30) ug/mL Ur Barbiturates Screen NEGATIVE (NEGATIVE) Ur Tricyclics Screen NEGATIVE (NEGATIVE) Ur Phencyclidine Scrn NEGATIVE (NEGATIVE) Ur Amphetamine Screen NEGATIVE (NEGATIVE) U Methamphetamines Scrn NEGATIVE (NEGATIVE) U Benzodiazepines Scrn NEGATIVE (NEGATIVE) Urine Cocaine Screen NEGATIVE (NEGATIVE) U Cannabinoids Screen NEGATIVE (NEGATIVE) Ethyl Alcohol mg/dL 12/22/20 12/22/20 Range/Units 18:12 18:12 WBC (4.8-10.8) x10^3/uL RBC (4.20-5.40) 10^6/uL Hgb (12.0-16.0) g/dL Hct (37.0-47.0) % MCV (81.0-99.0) fL MCH (27.0-31.0) pg MCHC (32.0-36.0) g/dL RDW (12.0-15.0) % Plt Count (130-450) 10^3/uL MPV (7.9-10.8) fL Neut # (Auto) (1.5-6.6) 10^3/uL Lymph # (Auto) (1.5-3.5) 10^3/uL [place] # (Auto) (0.0-1.0) 10^3/uL Eos # (Auto) (0.0-0.7) 10^3/uL Baso # (Auto) (0.0-0.1) 10^3/uL Absolute Nucleated RBC x10^3/uL Nucleated RBC % /100WBC Sodium 140 (135-145) mmol/L Potassium 3.9 (3.5-5.0) mmol/L Chloride 101 (101-111) mmol/L Carbon Dioxide 24 (21-32) mmol/L Anion Gap 15.0 H (6-13) BUN 34 H (6-20) mg/dL Creatinine 1.2 H (0.4-1.0) mg/dL Estimated GFR (MDRD) 45 L (>89) Glucose 125 H (70-100) mg/dL Calcium 9.6 (8.5-10.3) mg/dL Magnesium (1.7-2.8) mg/dL Total Bilirubin 0.5 (0.2-1.0) mg/dL AST 23 (10-42) IU/L ALT 24 (10-60) IU/L Alkaline Phosphatase 101 (42-121) IU/L Ammonia (7-35) umol/L Total Creatine Kinase 221 (22-269) IU/L Total Protein 8.3 H (6.7-8.2) g/dL Albumin 4.5 (3.2-5.5) g/dL Globulin 3.8 (2.1-4.2) g/dL Albumin/Globulin Ratio 1.2 (1.0-2.2) Lipase 26 (22-51) U/L TSH 1.47 (0.34-5.60) uIU/mL Urine Color Urine Clarity (CLEAR) Urine pH (5.0-7.5) PH Ur Specific [place] (1.002-1.030) Urine Protein (NEGATIVE) mg/dL Urine Glucose (UA) (NEGATIVE) mg/dL Urine Ketones (NEGATIVE) mg/dL Urine Occult Blood (NEGATIVE) Urine Nitrite (NEGATIVE) Urine Bilirubin (NEGATIVE) Urine Urobilinogen (NORMAL) E.U./dL Ur Leukocyte Esterase (NEGATIVE) Ur Microscopic Review Urine Culture Comments Nasal Adenovirus (PCR) Nasal B. parapertussis DNA (PCR) Nasal Coronavir 229E PCR Nasal Coronavir HKU1 PCR Nasal Coronavir NL63 PCR Nasal Coronavir OC43 PCR Nasal Enterovir/Rhinovir PCR Nasal Influenza B PCR Nasal Influenza A PCR Nasal Parainfluen 1 PCR Nasal Parainfluen 2 PCR Nasal Parainfluen 3 PCR Nasal Parainfluen 4 PCR Nasal RSV (PCR) Nasal B.pertussis DNA PCR Nasal C.pneumoniae (PCR) Jaya Human Metapneumo PCR Nasal M.pneumoniae (PCR) Nasal SARS-CoV-2 (PCR) Salicylates < 6.0 mg/dL Urine Opiates Screen (NEGATIVE) Ur Oxycodone Screen (NEGATIVE) Urine Methadone Screen (NEGATIVE) Ur Propoxyphene Screen (NEGATIVE) Acetaminophen < 10 L (10-30) ug/mL Ur Barbiturates Screen (NEGATIVE) Ur Tricyclics Screen (NEGATIVE) Ur Phencyclidine Scrn (NEGATIVE) Ur Amphetamine Screen (NEGATIVE) U Methamphetamines Scrn (NEGATIVE) U Benzodiazepines Scrn (NEGATIVE) Urine Cocaine Screen (NEGATIVE) U Cannabinoids Screen (NEGATIVE) Ethyl Alcohol < 5.0 mg/dL Assessment/Plan - Problem List (1) Acute metabolic encephalopathy Impression: Suspect this is related to medication misuse. She was found with a note reminding her to buy more Sudafed and she had multiple bottles of Sudafed at home so we wonder if she has been misusing it in substitue for Adderall. We did not obtain a CT of the head given lack of focal deficits. Her labs are unremarkable except for acute kidney injury. Her TSH within normal limits. This seems very similar to her prior presentation and she responds to only IV hydration and time. We have continued her on IV lactated Ringer's and avoided all sedatives. She likely will need [facility] facility which was recommended to her during her prior hospitalization and we will encourage this given she was home for less than 24 hours. Ammonia level was 20. This morning she is back to baseline. She is sitting up feeding herself breakfast. The only Ms. Mcleod is how she uses her utensils. She is valiantly attempting to stab scrambled eggs with a knife and put that in her mouth. When I suggest that she use her spoon or fork she explains and surprise "oh yeah" and then changes to the spoon and does quite well with bringing food to her mouth. (2) Acute kidney injury resolved Conclusion/Plan: This is likely prerenal injury. Her creatinine is elevated at 1.2 and her BUN at 35. We hydrated with lactated Ringer's. This morning BUN is now 24, creatinine 0.8. (3) Cognitive impairment Conclusion/Plan: She did have a cognitive evaluation during her prior hospitalization by OT and she scored 16 out of 30. It was felt that she would likely benefit from assisted living and given the quick readmission, will discuss caregivers at home or discharge to assisted living at some point. (4) Seizure disorder Conclusion/Plan: Stable. Her Keppra was therapeutic and this was checked during her prior hospitalization. We will continue her Keppra but will do this intravenously gi derek her encephalopathy. We have recommended an outpatient EEG to ensure that she is not having seizures at home which may be leading to her altered mental status. (5) Multiple sclerosis Conclusion/Plan: Stable. She was scheduled to follow-up with her neurologist about 1 week ago but she was hospitalized during that time. She went to follow-up with her ia urologist at [facility] once she is discharged. (6) Hypothyroid Conclusion/Plan: We will continue her home Synthroid. Her TSH is within normal limits.
[2020-12-24] MEDS: ACETAMINOPHEN 325 MG TABLET PO PRN ×5 (04:53→21:00)
[2020-12-24 05:27] LABS: BASOPHILS # (AUTO) 0.1 10^3/uL (0.0-0.1); BASOPHILS % (AUTO) 1.7 %; EOSINOPHILS # (AUTO) 0.2 10^3/uL (0.0-0.7); EOSINOPHILS % (AUTO) 2.8 %; HCT - HEMATOCRIT 38.7 % (37.0-47.0); HGB - HEMOGLOBIN 12.4 g/dL (12.0-16.0); LYMPHOCYTES # (AUTO) 2.9 10^3/uL (1.5-3.5); LYMPHOCYTES % (AUTO) 40.1 %; MEAN CORPUSCULAR HEMOGLOBIN 30.9 pg (27.0-31.0); MEAN CORPUSCULAR VOLUME 96.5 fL (81.0-99.0); MEAN PLATELET VOLUME 10.6 fL (7.9-10.8); MONOCYTES # (AUTO) 0.6 10^3/uL (0.0-1.0); MONOCYTES % (AUTO) 8.3 %; NEUTROPHILS # (AUTO) 3.4 10^3/uL (1.5-6.6); NEUTROPHILS % (AUTO) 46.8 %; PLT - PLATELET COUNT 297 10^3/uL (130-450); RED BLOOD COUNT 4.01 10^6/uL (4.20-5.40); RED CELL DISTRIBUTION WIDTH 14.6 % (12.0-15.0); WHITE BLOOD COUNT 7.1 x10^3/uL (4.8-10.8)
[2020-12-24 05:34] LABS: CALCIUM 9.2 mg/dL (8.5-10.3); CREATININE 0.7 mg/dL (0.4-1.0); MAGNESIUM 2.1 mg/dL (1.7-2.8); POTASSIUM 4.2 mmol/L (3.5-5.0)
[2020-12-24] MEDS: ENOXAPARIN 40 MG/0.4 ML SYRINGE SUBQ SCH (08:39)
[2020-12-24] MEDS: levETIRAcetam INJ 500 MG in SODIUM CHLORIDE 0.9% 100ML 100 ML IV SCH (08:40)
[2020-12-24] MEDS: SODIUM CHLORIDE FLUSH 0.9% 10 ML SYRINGE IVP SCH ×2 (08:40→15:33)
[2020-12-24] MEDS: BACLOFEN 10 MG TABLET PO SCH ×2 (17:17→20:37)
--- NOTE | 2020-12-24 17:48 | PROVIDER PROGRESS NOTE ---
Subjective - Prog Note Date Prog Note Date: 12/24/20 - Subjective Pt reports feeling: Improved Subjective: Sitting up in her bed and later up in the chair in no acute distress. Reports she did not sleep well overnight but is otherwise fine. Denies n/v. Oriented to self and place. Waiting for her lunch to come and then for social work to come back and talk to her. Objective - Vital Signs/Intake & Output Reviewed Vital Signs: Yes Vital Signs: Vital Signs x48h Temp Pulse Resp BP Pulse Ox 12/24/20 15:28 36.9 C 84 19 130/71 95 12/24/20 11:01 36.9 C 82 18 133/68 H 98 Intake & Output: Intake & Output 12/21/20 12/22/20 12/23/20 12/24/20 23:59 23:59 23:59 23:59 Intake Total 1142.5 3572.5 1895 Balance 1142.5 3572.5 1895 - Objective General Appearance: positive: No acute distress, Alert, Other (Slightly disheveled, appears older than stated age) Eyes Bilateral: positive: Normal inspection, PERRL, EOMI ENT: positive: ENT inspection nml, No signs of dehydration Neck: positive: Nml inspection, Thyroid nml, No JVD Respiratory: positive: Chest non-tender, No respiratory distress, Breath sounds nml Cardiovascular: positive: Regular rate & rhythm, No murmur, No gallop Abdomen: positive: Non-tender, Nml bowel sounds, No distention Skin: positive: Color nml Extremities: positive: Non-tender, No pedal edema Neurologic/Psychiatric: positive: Oriented x3, CN's nml (2-12) - Lab Results Fish Bones: 12/24/20 05:00 12/24/20 05:00 Other Labs: Lab Results x24hrs 12/24/20 12/24/20 Range/Units 05:00 05:00 WBC 7.1 (4.8-10.8) x10^3/uL RBC 4.01 L (4.20-5.40) 10^6/uL Hgb 12.4 (12.0-16.0) g/dL Hct 38.7 (37.0-47.0) % MCV 96.5 (81.0-99.0) fL MCH 30.9 (27.0-31.0) pg MCHC 32.0 (32.0-36.0) g/dL RDW 14.6 (12.0-15.0) % Plt Count 297 (130-450) 10^3/uL MPV 10.6 (7.9-10.8) fL Neut # (Auto) 3.4 (1.5-6.6) 10^3/uL Lymph # (Auto) 2.9 (1.5-3.5) 10^3/uL [place] # (Auto) 0.6 (0.0-1.0) 10^3/uL Eos # (Auto) 0.2 (0.0-0.7) 10^3/uL Baso # (Auto) 0.1 (0.0-0.1) 10^3/uL Absolute Nucleated RBC 0.00 x10^3/uL Nucleated RBC % 0.0 /100WBC Sodium 142 (135-145) mmol/L Potassium 4.2 (3.5-5.0) mmol/L Chloride 108 (101-111) mmol/L Carbon Dioxide 24 (21-32) mmol/L Anion Gap 10.0 (6-13) BUN 20 (6-20) mg/dL Creatinine 0.7 (0.4-1.0) mg/dL Estimated GFR (MDRD) 84 L (>89) Glucose 90 (70-100) mg/dL Calcium 9.2 (8.5-10.3) mg/dL Magnesium 2.1 (1.7-2.8) mg/dL ABX Reporting Has patient been on IV antibiotics over the past 48 hours?: No Sepsis Event Note (H) - Evaluation Current Stage of Sepsis: Ruled out Assessment/Plan - Problem List (1) Acute metabolic encephalopathy Impression: Suspect this is related to medication misuse. She was found with a note reminding her to buy more Sudafed and she had multiple bottles of Sudafed at home so we wonder if she has been misusing it in substitue for Adderall. We did not obtain a CT of the head given lack of focal deficits. Her labs were unremarkable on admission except for acute kidney injury. Her TSH within normal limits. This seems very similar to her prior presentation and she responds to only IV hydration and time. She likely will need correction facility which was recommended to her during her prior hospitalization and we will encourage this given she was home for less than 24 hours. Ammonia level was 20. This morning she is back to baseline. She is sitting up in a chair waiting for lunch. (2) Acute kidney injury Impression: Resolved. This was likely prerenal injury and she received lactated ringers on admission. Her creatinine is now 0.7 with BUN 20. (3) Cognitive impairment Impression: She appears to be at her baseline. She did have a cognitive evaluation during her prior hospitalization by OT and she scored 16 out of 30. It was felt that she would likely benefit from assisted living and given the quick readmission, will discuss caregivers at home or discharge to assisted living at some point. (4) Seizure disorder Impression: Stable. Her Keppra was therapeutic and this was checked during her prior h ospitalization. We will continue her Keppra and transitioned it to po now that she is back to baseline. We have recommended an outpatient EEG to ensure that she is not having seizures at home which may be leading to her altered mental status. (5) Multiple sclerosis Impression: Stable. She was scheduled to follow-up with her neurologist about 1 week ago b ut she was hospitalized during that time. She will follow-up with her neurologist at [facility] once she is discharged. Restarted her on 10mg Baclofen po QID, which she reports she takes at home for muscle spasms and pain related to her MS. (6) Hypothyroid Impression: TSH is normal this admission. Home Synthroid was continued. Qualifiers: Hypothyroidism type: unspecified Qualified Code(s): E03.9 - Hypothyroidism, unspecified
[2020-12-24] MEDS: levETIRAcetam 250 MG TABLET PO SCH (20:37)
[2020-12-25] MEDS: SODIUM CHLORIDE FLUSH 0.9% 10 ML SYRINGE IVP SCH ×3 (00:01→16:14)
[2020-12-25] MEDS: ACETAMINOPHEN 325 MG TABLET PO PRN ×5 (01:03→20:17)
[2020-12-25 05:41] LABS: BASOPHILS # (AUTO) 0.1 10^3/uL (0.0-0.1); BASOPHILS % (AUTO) 1.6 %; EOSINOPHILS # (AUTO) 0.2 10^3/uL (0.0-0.7); EOSINOPHILS % (AUTO) 3.2 %; HCT - HEMATOCRIT 37.7 % (37.0-47.0); HGB - HEMOGLOBIN 12.5 g/dL (12.0-16.0); LYMPHOCYTES # (AUTO) 2.6 10^3/uL (1.5-3.5); LYMPHOCYTES % (AUTO) 34.6 %; MEAN CORPUSCULAR HEMOGLOBIN 30.9 pg (27.0-31.0); MEAN CORPUSCULAR HGB CONC 33.2 g/dL (32.0-36.0); MEAN CORPUSCULAR VOLUME 93.1 fL (81.0-99.0); MEAN PLATELET VOLUME 10.3 fL (7.9-10.8); MONOCYTES # (AUTO) 0.7 10^3/uL (0.0-1.0); MONOCYTES % (AUTO) 9.7 %; NEUTROPHILS # (AUTO) 3.8 10^3/uL (1.5-6.6); NEUTROPHILS % (AUTO) 50.5 %; PLT - PLATELET COUNT 320 10^3/uL (130-450); RED BLOOD COUNT 4.05 10^6/uL (4.20-5.40); RED CELL DISTRIBUTION WIDTH 14.2 % (12.0-15.0); WHITE BLOOD COUNT 7.5 x10^3/uL (4.8-10.8)
[2020-12-25 05:52] LABS: CALCIUM 9.4 mg/dL (8.5-10.3); CREATININE 0.7 mg/dL (0.4-1.0); POTASSIUM 4.1 mmol/L (3.5-5.0)
[2020-12-25] MEDS: ENOXAPARIN 40 MG/0.4 ML SYRINGE SUBQ SCH (08:32)
[2020-12-25] MEDS: BACLOFEN 10 MG TABLET PO SCH ×2 (08:32→12:16)
[2020-12-25] MEDS: levETIRAcetam 250 MG TABLET PO SCH ×2 (08:33→20:17)
--- NOTE | 2020-12-25 09:16 | PROVIDER PROGRESS NOTE ---
Subjective - Prog Note Date Prog Note Date: 12/25/20 - Subjective Pt reports feeling: Improved Subjective: Pt reports feeling "fine". Has not slept in the last 2 nights ("too much on mind"). Interested in trying melatonin tonight as this has worked for her in the past. Denies pain, n/v. Objective - Vital Signs/Intake & Output Reviewed Vital Signs: Yes Vital Signs: Vital Signs x48h Temp Pulse Resp BP Pulse Ox 12/25/20 07:45 36.7 C 76 20 146/77 H 97 12/25/20 04:50 36.7 C 81 18 135/75 H 95 Intake & Output: Intake & Output 12/22/20 12/23/20 12/24/20 12/25/20 23:59 23:59 23:59 23:59 Intake Total 1142.5 3572.5 2295 320 Balance 1142.5 3572.5 2295 320 - Objective General Appearance: positive: No acute distress, Alert Eyes Bilateral: positive: Normal inspection, PERRL ENT: positive: ENT inspection nml, No signs of dehydration Neck: positive: Nml inspection Respiratory: positive: Chest non-tender, No respiratory distress, Breath sounds nml Cardiovascular: positive: Regular rate & rhythm, No murmur, No gallop Abdomen: positive: Non-tender, Nml bowel sounds, No distention Skin: positive: Pallor Extremities: positive: Full ROM, Nml appearance Neurologic/Psychiatric: positive: Oriented x3, CN's nml (2-12) - Lab Results Fish Bones: 12/25/20 05:25 12/25/20 05:25 Other Labs: Lab Results x24hrs 12/25/20 12/25/20 Range/Units 05:25 05:25 WBC 7.5 (4.8-10.8) x10^3/uL RBC 4.05 L (4.20-5.40) 10^6/uL Hgb 12.5 (12.0-16.0) g/dL Hct 37.7 (37.0-47.0) % MCV 93.1 (81.0-99.0) fL MCH 30.9 (27.0-31.0) pg MCHC 33.2 (32.0-36.0) g/dL RDW 14.2 (12.0-15.0) % Plt Count 320 (130-450) 10^3/uL MPV 10.3 (7.9-10.8) fL Neut # (Auto) 3.8 (1.5-6.6) 10^3/uL Lymph # (Auto) 2.6 (1.5-3.5) 10^3/uL Moore # (Auto) 0.7 (0.0-1.0) 10^3/uL Eos # (Auto) 0.2 (0.0-0.7) 10^3/uL Baso # (Auto) 0.1 (0.0-0.1) 10^3/uL Absolute Nucleated RBC 0.00 x10^3/uL Nucleated RBC % 0.0 /100WBC Sodium 142 (135-145) mmol/L Potassium 4.1 (3.5-5.0) mmol/L Chloride 110 (101-111) mmol/L Carbon Dioxide 23 (21-32) mmol/L Anion Gap 9.0 (6-13) BUN 18 (6-20) mg/dL Creatinine 0.7 (0.4-1.0) mg/dL Estimated GFR (MDRD) 84 L (>89) Glucose 96 (70-100) mg/dL Calcium 9.4 (8.5-10.3) mg/dL Magnesium 2.0 (1.7-2.8) mg/dL ABX Reporting Has patient been on IV antibiotics over the past 48 hours?: No Sepsis Event Note (H) - Evaluation Current Stage of Sepsis: Ruled out Assessment/Plan - Problem List (1) Cognitive impairment Impression: Stable. She appears to be at her baseline. She did have a cognitive evaluation during her prior hospitalization by OT and she scored 16 out of 30. It was felt that she would likely benefit from assisted living and given the quick readmission, will discuss caregivers at home or discharge to assisted living at some point. (2) Seizure disorder Impression: Stable. Her Keppra was therapeutic and this was checked during her prior hospitalization. We will continue her Keppra and transitioned it to po now that she is back to baseline. We have recommended an outpatient EEG to ensure that she is not having seizures at home which may be leading to her altered mental status. (3) Multiple sclerosis Impression: Stable. She was scheduled to follow-up with her neurologist about 1 week ago but she was hospitalized during that time. She will follow-up with her neurologist at [facility] once she is discharged. Restarted her yesterday 12/24 on 10mg Baclofen po QID, which she reports she takes at home for muscle spasms and pain related to her MS. She has declined the last 2 doses and is now requesting oxycodone or something stronger for her pain. Discussed with her that per chart review she has not received oxy for a long time and her PCP recommended referral to a pain specialist. Let her know that Oxy is not something that will be prescribed here but we can make an outpatient referral to a Pain Clinic if she is interested. Encouraged her to use the baclofen and prn tylenol as needed. (4) Hypothyroid Impression: TSH is normal this admission. Home Synthroid was continued. Qualifiers: Hypothyroidism type: unspecified Qualified Code(s): E03.9 - Hypothyroidism, unspecified (5) Acute metabolic encephalopathy Impression: Resolved. Suspect this is related to medication misuse. She was found with a note reminding her to buy more Sudafed and she had multiple bottles of Sudafed at home so we wonder if she has been misusing it in substitue for Adderall. We did not obtain a CT of the head given lack of focal deficits. Her labs were unremarkable on admission except for acute kidney injury. Her TSH within normal limits. This seems very similar to her prior presentation and she responds to only IV hydration and time. She likely will need [facility]cc facility which was recommended to her during her prior hospitalization and we will encourage this given she was home for less than 24 hours. Ammonia level was 20. This morning she is back to baseline. She is sitting up in bed watching tv. (6) Acute kidney injury Impression: Resolved. This was likely prerenal injury and she received lactated ringers on admission. Her creatinine is now 0.7 with BUN 18.
[2020-12-25] MEDS ORDERED: BACLOFEN 10 MG TABLET PO PRN (12:27)
[2020-12-26] MEDS: SODIUM CHLORIDE FLUSH 0.9% 10 ML SYRINGE IVP SCH ×4 (01:30→23:42)
[2020-12-26] MEDS: ACETAMINOPHEN 325 MG TABLET PO PRN ×3 (06:47→21:48)
--- NOTE | 2020-12-26 08:38 | PROVIDER PROGRESS NOTE ---
Subjective - Prog Note Date Prog Note Date: 12/26/20 Prog Note Time: 14:45 - Subjective Pt reports feeling: No change Subjective: She is up in bed. Has eaten her breakfast. Pain is stable. She just hurts all over especially in her back. But no chest pain, palpitations, cough, shortness of breath. No abdominal pain. Current Medications - Current Medications Current Medications: Active Medications Acetaminophen (Acetaminophen 325 Mg Tablet) 650 mg PO Q4HR PRN PRN Reason: Pain 1 to 4 Last Admin: 12/26/20 12:31 Dose: 650 mg Documented by: Baclofen (Baclofen 10 Mg Tablet) 10 mg PO QID PRN PRN Reason: PAIN Enoxaparin Sodium (Enoxaparin 40 Mg/0.4 Ml Syringe) 40 mg SUBQ DAILY [facility] Last Admin: 12/26/20 08:46 Dose: 40 mg Documented by: Levetiracetam (Levetiracetam 250 Mg Tablet) 500 mg PO BID [facility] Last Admin: 12/26/20 08:46 Dose: 500 mg Documented by: Nystatin (Nystatin Powder 15 Gm) 1 applic TOP BID [facility] Ondansetron HCl (Ondansetron Odt 4 Mg Tablet) 4 mg TL Q6HR PRN PRN Reason: Nausea / Vomiting Ondansetron HCl (Ondansetron 4 Mg/2 Ml Vial) 4 mg IVP Q6HR PRN PRN Reason: Nausea / Vomiting Sodium Chloride (Sodium Chloride Flush 0.9% 10 Ml Syringe) 10 ml IVP PRN PRN PRN Reason: NEEDED PER PROVIDER ORDERS Sodium Chloride (Sodium Chloride Flush 0.9% 10 Ml Syringe) 10 ml IVP 0100,0900,1700 [facility] Last Admin: 12/26/20 08:47 Dose: 10 ml Documented by: Cholestyramine [Questran] 4 gm PO QPM 04/28/13 Baclofen 10 mg PO QID 07/18/19 Glucos Sul 2Kcl/MSM/Chond/C/Mn [Glucosamine Chondroitin Cap] 1 cap PO DAILY 07/18/19 Levothyroxine Sodium 50 mcg PO DAILY 07/18/19 Multivitamin/Iron/Folic Acid [Centrum Women Tablet] 1 ea ORAL DAILY 07/18/19 Methylphenidate HCl [Methylphenidate ER] 40 mg PO DAILY 02/10/20 levETIRAcetam [Roweepra] 500 mg PO BID 02/10/20 Calcium Carbonate/Vitamin D3 [Calcium 500Mg-Vit D3 15Mcg Tab] 1 each PO DAILY 12/09/20 Furosemide [Lasix] 20 mg PO DAILY 12/09/20 [place]-3/Dha/Epa/Fish Oil [Fish Oil 1,000 mg Softgel] 1 cap PO DAILY 12/09/20 Objective - Vital Signs/Intake & Output Reviewed Vital Signs: Yes Vital Signs: Vital Signs x48h Temp Pulse Resp BP BP Pulse Ox 12/26/20 07:45 37.0 C 88 18 130/72 95 12/26/20 02:46 36.8 C 83 20 142/71 H 96 Intake & Output: Intake & Output 12/23/20 12/24/20 12/25/20 12/26/20 23:59 23:59 23:59 23:59 Intake Total 3572.5 2295 850 850 Balance 3572.5 2295 850 850 - Objective General Appearance: positive: No acute distress, Alert, Other (Short overweight female who looks older than stated age. She is 5 feet 2 inches tall and weighs 71.5 kg) Eyes Bilateral: positive: PERRL ENT: positive: No signs of dehydration Neck: positive: No JVD. negative: Stiff neck Respiratory: positive: No respiratory distress. negative: Wheezes, Rales, Rhonchi Cardiovascular: positive: Regular rate & rhythm. negative: Gallop/S4, Friction rub Abdomen: positive: Non-tender, No organomegaly, Nml bowel sounds, No distention Skin: positive: Other (Jessie intertrigo under breast pannus) Extremities: positive: Full ROM, Pedal edema Neurologic/Psychiatric: positive: Oriented x3, CN's nml (2-12), Other (Continues to insist that her neighbors are out to get her and that is the reason she is in the hospital). negative: Motor nml (She is a max assist to sit up in bed. Cannot come from supine to sitting without help. Or standing.No focal deficit just severe generalized weakness) - Lab Results Fish Bones: 12/25/20 05:25 12/25/20 05:25 ABX Reporting Has patient been on IV antibiotics over the past 48 hours?: No Sepsis Event Note (H) - Evaluation Current Stage of Sepsis: Ruled out Assessment/Plan - Problem List (1) Cognitive impairment Impression: No change from yesterday. Stable. She appears to be at her baseline. She did have a cognitive evaluation during her prior hospitalization by OT and she scored 16 out of 30. It was felt that she would likely benefit from assisted living and given the quick readmission, will Have discussed caregivers at home. She does not have the finances to make that happen. Right now are tentative plan is for discharge to [facility] for fpc care. We are getting authorization from her insurance company. (2) Seizure disorder Impression: Stable. No change. Her Keppra was therapeutic and this was checked during her prior hospitalization. We will continue her Keppra and transitioned it to po now that she is back to baseline. We have recommended an outpatient EEG to ensure that she is not having seizures at home which may be leading to her altered mental status. (3) Multiple sclerosis Impression: Stable. No change. She was scheduled to follow-up with her neurologist about 1 week ago but she was hospitalized during that time. She will follow-up with her neurologist at [facility] once she is discharged. Restarted her 12/24 on 10mg Baclofen po QID, which she reports she takes at home for muscle spasms and pain related to her MS. She has declined the last 2 doses and is now requesting oxycodone or something stronger for her pain. Discussed with her that per chart review she has not received oxy for a long time and her PCP recommended referral to a pain specialist. Let her know that Oxy is not something that will be prescribed here but we can make an outpatient referral to a Pain Clinic if she is interested. Encouraged her to use the baclofen and prn tylenol as needed. (4) Hypothyroid Impression: TSH is normal this admission. Home Synthroid was continued. No change. Qualifiers: Hypothyroidism type: unspecified Qualified Code(s): E03.9 - Hypothyroidism, unspecified (5) Acute metabolic encephalopathy resolved. Impression: Suspect this is related to medication misuse. She was found with a note reminding her to buy more Sudafed and she had multiple bottles of Sudafed at home so we wonder if she has been misusing it in substitue for Adderall. We did not obtain a CT of the head given lack of focal deficits. Her labs were unremarkable on admission except for acute kidney injury. Her TSH within normal limits. This seems very similar to her prior presentation and she responds to only IV hydration and time. She likely will need assisted facility which was recommended to her during her prior hospitalization and we will encourage this given she was home for less than 24 hours. Ammonia level was 20. This morning she is back to baseline. She is sitting up in bed watching tv. (6) Acute kidney injury resolved. Impression: This was likely prerenal injury and she received lactated ringers on admission. Her creatinine is now 0.7 with BUN 18.
[2020-12-26] MEDS: ENOXAPARIN 40 MG/0.4 ML SYRINGE SUBQ SCH (08:46)
[2020-12-26] MEDS: levETIRAcetam 250 MG TABLET PO SCH ×2 (08:46→21:48)
[2020-12-26] MEDS: NYSTATIN POWDER 15 GM TOP SCH (21:48)
[2020-12-26] MEDS ORDERED: diphenhydrAMINE 25 MG CAPSULE PO PRN (21:58)
[2020-12-27] MEDS: NYSTATIN POWDER 15 GM TOP SCH (09:06)
[2020-12-27] MEDS: ENOXAPARIN 40 MG/0.4 ML SYRINGE SUBQ SCH (09:07)
[2020-12-27] MEDS: SODIUM CHLORIDE FLUSH 0.9% 10 ML SYRINGE IVP SCH (09:08)
[2020-12-27] MEDS: ACETAMINOPHEN 325 MG TABLET PO PRN ×2 (09:08→13:13)
[2020-12-27] MEDS: levETIRAcetam 250 MG TABLET PO SCH (09:09)
--- NOTE | 2020-12-27 11:02 | Discharge Plan ---
Discharge Plan Problem Reviewed?: Yes Disposition: 06 Home Health Service Condition: Stable Diet: Regular Activity Restrictions: walker Shower Restrictions: No Weight Bearing: Full Weight Health Concerns: Confusion; You were hospitalized from 12/09-12/21 for acute confusion. (That was the 5th such admission to the hospital for the same problem). These admissions to the hospital with confusion have often been related to interactions between drugs, and you have noted that you sometimes take more than prescribed. The confusion results in less fluid intake than you should have which then worsens the problem. The lasix likely was part of the problem (see below. During that admission (12/09-12/21) occupational therapy did a cognitive evaluation and the assessment at that time was you were not safe for return home and were not making logical consistent good decisions re: self care (as part of the assessment) Discharge to a skilled facility was planned, but on the day of planned discharge to [facility], you elected to return home. It appears that once home you took more Sudafed than is recommended and that again resulted in confusion. As in the past, you then became dehydrated which worsened the confusion. Fortunately you recovered quickly with IV fluid, and a repeat cognitive evaluation by the occupational therapist was much improved () . You are saf e to return home. Physical Therapy evaluated you as well, they recommended Home Health Physical Therapy and continue using your front wheeled walker. In their evaluation they noted you do not have good safety awarensss . You also have poor foot clearance on the Right. (good standing balance and fair sitting balance) Stop Lasix (furosemide) Important; in reviewing your medication list, the lasix started after an ED visit May 2018 is a diuretic (makes you pee) should not be continued. It does not have an important indication for you to be prescribed, and appears to be causing more problems than helping. (dries you out) STOP Lasix STOP potassium (potassium was only needed to counteract that lasix makes you "pee out" potassium. If you were still on Plavix for your stents at home, do continue taking it. No change in other medications Important; Remember also. you have an underlying seizure disorder. When you are confused at home, you are likely not taking your seizure medication as indicated and possibly could have seizures we are unaware of. You need an outpatient EEG scheduled. Plan of Treatment: No change in home plan EXCEPT; only take medications prescribed. Taking excess medications results in drug drug interactions which contribute to confusion Care Goals: Prevent future hospitalizations that are due to drug drug interactions by taking medication as prescribed Additional Instructions or Follow Up instructions: Patient should have EEG as outpatient; see text above Follow-Up Care: Home Health - PT (recommended after PT eval;PT noted deficits in gait, balance, strenght and transfer; showed poor foot clearance on R. Poor safety awareness, sl impulsive. 4/5 LE strenght but poor active DF on r. good sitiing and fair standing balance. has FWW) No Smoking: If you smoke, Please STOP! Call for help. Follow-up with: Yenny Markham ARNP [Primary Care Provider] -
--- NOTE | 2020-12-27 14:22 | DISCHARGE SUMMARY ---
Discharge Summary Admit Date: 12/28/20 Discharge Date: 12/27/20 Discharging Provider: CHEPE Wagner Code Status: Attempt Resuscitation Condition at Discharge: Stable Discharge Disposition: Home Health Service - DIAGNOSES Admission Diagnoses: Acute metabolic encephalopathy Acute Kidney Injury Cognitive Impairment Seizure disorder Multiple sclerosis Hypothyroid Discharge Diagnoses with Status of Each Condition: Acute metabolic encephalopathy ; resolved with hydration Acute Kidney Injury; Prerenal , resolved Cognitive Impairment: related to acute metabolic encephalopathy; resolved, at baseline on discharge Seizure disorder; stable; continues on keppra Multiple sclerosis; no exacerbation, stable Hypothyroidism; stable - HPI History of Present Illness: This is a 65-year-old female with a past medical history significant for multiple sclerosis, seizure disorder, hypothyroidism, recurrent urinary tract infections who presents today after being found altered by neighbors. The patient was just discharged home yesterday after she had a hospitalization for similar symptoms. At that time she was found to be quite dehydrated and she responded well to IV fluids. Her hospital course was prolonged as it was felt that she needed a shelter facility. She was accepted at [facility] but unfortunately insurance authorization took quite some time to approve this stay. Her insurance finally approved the SNF yesterday and the plan was to discharge her to [facility] skilled nurse facility but the patient ultimately declined this and preferred to go home. She was reportedly seen by her neighbors this morning and she was at her baseline. This afternoon it was noted that she was acting quite strangely so they called EMS. When she arrived to our emergency department, she was picking at the air and not following commands. It was noted by EMS that she had multiple bottles of Sudafed and there was a note stating to buy more Sudafed. I am unable to obtain any history from the patient as she is encephalopathic and unable to communicate. In the emergency department, her labs were noted to be significant for a white count of 15.3. Her BUN is elevated at 34 and her creatinine at 1.2. Her urinalysis and respiratory PCR panel were unremarkable. Toxicology screen was positive for oxycodone otherwise negative including salicylates, acetaminophen, ethyl alcohol. Given her ongoing encephalopathy, medicine was consulted for admission. I could not discuss goals of care with the patient due to her encephalopathy and therefore she will be made a full code. - CONSULTS | PROCEDURES Consultations: OT, PT no formal subspecialist consultation - HOSPITAL COURSE Hospital Course: #Acute metabolic encephalopathy; related to medication misuse/ possible drug drug interactions and volume depletion on diuretic with no clear indication Suspect this is related to medication misuse. She was found with a note reminding her to buy more Sudafed and she had multiple bottles of Sudafed . Not definitive if this is the case. No focal deficits; No CT head done. Chemistries/ CBC notable only for prerenal injury Her labs are unremarkable except for acute kidney injury. She quickly returned to baseline after gentle IVF (much more quickly than on prior similar presentations. See #2 below. She has been on lasix x 2 years, with no clear necessary indication which may also contribute to preciptating these "events" when in additon to suspician of taking meds NOt as prescribed (e.g in past too much baclofen), she is always prerenal. Lasix stopped . (she acknowledges understanding) The plan was to discharge her to [facility] as was the prior plan, however she refused. She was reevaluated by PT/OT. OT found her much improved (prior [place] , now ). PT reevaluated her and recommended HHPT (and additional support at home which patient declines) due to some impulsiveness, (PT eval; Pt ambulating 30 ft in room w/ FWW demonstrating poor foot clearance on the right and widened EREN. PT consult;(12/27) "Pt ambulating w/ decreased step length and speed. Pt r equiring intermittent CGA along walker as pt having tendency to bring walker too far forward when navigating turns.Pt ambulating w/ FWW and SBA-CGA demonstrating poor foot clearance on the right. Pt performing stand pivot transfer w/ SBA of therapist using FWW. Pt demonstrates poor safety awareness and is slightly impulsive. Pt demonstrating overall 4/5 LE strength but exhibits poor active DF on the right. Pt exhibits good sitting balance and fair standing balance. Pt may benefit from d/c to SNF or home w/ increased caregiver support and HHPT. (#) Acute kidney injury Conclusion/Plan: Prerenal BUN 45/ Cr 1.2. REsolved w/ IVF In reviewing Rx plan, and past history; she has been on daily lasix 20 mg since May 2018. At the time she presented to ED reporting occasional SOB when flat, On presentation she had no hypoxia, unremarkable CXR other than very small bilateral pleural effusions, no vascular congestion, but was discharged on lasix, Given the repeated admissions w/ volume depletion; advised patient to STOP Lasix (and the corresponding K) #Seizure disorder; stable; No evident seizure activity Advised patient should have outpatient EEG to evaluate possible seizures at home (but we do not think this is the case (she reports she was due to have neurology follow up soon)mportant; Continues Keppra You need an outpatient EEG scheduled. Stable. #Multiple sclerosis; stable # Weakness and impaired gait/safety awareness. OT and PT reevaluated 12/27 OT noted much improved score PT recommended HHPT and increased care program resident support (patient is very private and does not want additional help in home. PT noted deficits in gait, balance, strenght and transfer; showed poor foot clearance on R. Poor safety awareness, sl impulsive. 4/5 LE strenght but poor active DF on r. good sitiing and fair standing balance. has FWW - ALLERGIES Allergies/Adverse Reactions: Allergies Allergy/AdvReac Type Severity Reaction Status Date / Time No Known Drug Allergies Allergy Verified 12/28/20 13:51 - MEDICATIONS Home Medications: Ambulatory Orders Medication Instructions Recorded Confirmed Cholestyramine [Questran] 4 gm PO QPM 04/28/13 12/23/20 Baclofen 10 mg PO QID 07/18/19 12/23/20 Glucos Sul 2Kcl/MSM/Chond/C/Mn 1 cap PO DAILY 07/18/19 12/23/20 [Glucosamine Chondroitin Cap] Levothyroxine Sodium 50 mcg PO DAILY 07/18/19 12/23/20 Multivitamin/Iron/Folic Acid 1 ea ORAL DAILY 07/18/19 12/23/20 [Centrum Women Tablet] Methylphenidate HCl 40 mg PO DAILY 02/10/20 12/23/20 [Methylphenidate ER] levETIRAcetam [Roweepra] 500 mg PO BID 02/10/20 12/23/20 Acetaminophen [Tylenol] 650 mg PO Q4HR PRN 06/15/20 12/23/20 Oxymetazoline HCl [Afrin] 2 sprays WILLIE BID PRN bottle 06/15/20 12/23/20 Calcium Carbonate/Vitamin D3 1 each PO DAILY 12/09/20 12/23/20 [Calcium 500Mg-Vit D3 15Mcg Tab] [place]-3/Dha/Epa/Fish Oil [Fish Oil 1 cap PO DAILY 12/09/20 12/23/20 1,000 mg Softgel] Atorvastatin [Lipitor] 40 mg PO QPM #0 12/21/20 12/23/20 Clobetasol 0.05% Oint [Temovate 1 applic TOP BID 12/21/20 12/23/20 0.05% Oint] Clopidogrel [Plavix] 75 mg PO DAILY #0 12/21/20 12/23/20 Metoprolol Succinate [Toprol Xl] 25 mg PO BID #0 12/21/20 12/23/20 Nystatin [Nystop] 1 applic TOP BID bottle 12/21/20 12/23/20 - PHYSICAL EXAM AT DISCHARGE General Appearance: positive: No acute distress, Alert, Other (sitting up in chair, slightly argumentative, ) Respiratory: positive: Chest non-tender, No respiratory distress, Breath sounds nml Cardiovascular: positive: Regular rate & rhythm, No murmur Abdomen: positive: Nml bowel sounds, No distention Skin: positive: Warm, Dry. negative: Skin rash Extremities: positive: Nml appearance. negative: Pedal edema Neurologic/Psychiatric: positive: Oriented x3, CN's nml (2-12), Mood/affect nml - LABS Result Diagrams: 12/25/20 05:25 12/25/20 05:25 - SEPSIS Current Stage of Sepsis: Ruled out - TIME SPENT Time Spent in Discharge (Minutes): 40 (over 30 mins spent educating patient on plan, d/w social work and rehab OT/PT)
[2020-12-27 15:44] VITALS: BP 134/85
== END 2020-12-27 17:00 | disposition home health service (06) ==
LOC: EDUNIT# → ED 17:31 → MS2 20:11
PROVIDERS: ADMIT Internal Medicine; ATTEND Nurse Practitioner
DX: G93.41 Metabolic encephalopathy (principal); N17.9 Acute kidney failure, unspecified; R41.3 Other amnesia; G40.909 Epilepsy, unspecified, not intractable, without status epilepticus; G35 Multiple sclerosis; E03.9 Hypothyroidism, unspecified; I10 Essential (primary) hypertension; I25.10 Atherosclerotic heart disease of native coronary artery without angina pectoris; I25.2 Old myocardial infarction; N30.20 Other chronic cystitis without hematuria; F32.9 Major depressive disorder, single episode, unspecified; F90.9 Attention-deficit hyperactivity disorder, unspecified type; G89.29 Other chronic pain; M54.9 Dorsalgia, unspecified; F17.200 Nicotine dependence, unspecified, uncomplicated; Z20.822 Contact with and (suspected) exposure to COVID-19; Z79.02 Long term (current) use of antithrombotics/antiplatelets; Z79.899 Other long term (current) drug therapy
CPT/HCPCS: 36415; 71045; 80048; 80053; 80306; 80307; 81003; 82140; 82550; 83690; 83735; 84443; 85025; 87631; 93005; 96361; 96365; 96366; 96372; 97161; 97165; 99285; A9270; G0378; G0480; J1650; J7120; 0202U; 80320; 80329; 81001; 87086

== ENCOUNTER 2020-12-28 13:15 | Outpatient (CLI) | payer MEDICARE, MEDICAID | END 2020-12-28 13:16 | disposition critical access hospital (66) | LOC: EMS 13:15 | DX: R53.1 Weakness (principal); R53.83 Other fatigue; R29.6 Repeated falls | CPT/HCPCS: A0425; A0429 ==

== ENCOUNTER 2020-12-28 13:37 | Emergency (ER) | payer MEDICARE, MEDICAID ==
--- NOTE | 2020-12-28 14:02 | ED Physician Documentation ---
History of Present Illness - Stated complaint Stated Complaint: FOUND DOWN - Chief complaint Chief Complaint: Neuro - Additonal information Additional information: 65-year-old female is return to the emergency department after a neighbor found her down at her residence. She has been admitted to the hospital multiple times recently for encephalopathy and altered mental status. Her most recent admission and discharge was 12/22 through 12/27. She has been home less than 24 hours before being found altered again. The same is true for her admission before that. Her most recent hospitalization for altered mental status was thought to be secondary to Sudafed overuse. Patient presents somewhat lethargic and often picking at things in the air. She will answer questions. She is aware that she is in the hospital but believes it is 1955. She is able to differentiate left from right as well as differentiate numbers. She has very little situational awareness however. 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: Other : Chronic bladder infection HEENT: None Psych: Depression, ADD/ADHD Musculoskeletal: Chronic back pain, Other Derm: Other - Past Surgical History Past Surgical History: Yes Ortho: Spine surgery /MANAGER WEB: Hysterectomy - Present Medications Home Medications: Ambulatory Orders Medication Instructions Recorded Confirmed Cholestyramine [Questran] 4 gm PO QPM 04/28/13 12/23/20 Baclofen 10 mg PO QID 07/18/19 12/23/20 Glucos Sul 2Kcl/MSM/Chond/C/Mn 1 cap PO DAILY 07/18/19 12/23/20 [Glucosamine Chondroitin Cap] Levothyroxine Sodium 50 mcg PO DAILY 07/18/19 12/23/20 Multivitamin/Iron/Folic Acid 1 ea ORAL DAILY 07/18/19 12/23/20 [Centrum Women Tablet] Methylphenidate HCl 40 mg PO DAILY 02/10/20 12/23/20 [Methylphenidate ER] levETIRAcetam [Roweepra] 500 mg PO BID 02/10/20 12/23/20 Acetaminophen [Tylenol] 650 mg PO Q4HR PRN 06/15/20 12/23/20 Oxymetazoline HCl [Afrin] 2 sprays WILLIE BID PRN bottle 06/15/20 12/23/20 Calcium Carbonate/Vitamin D3 1 each PO DAILY 12/09/20 12/23/20 [Calcium 500Mg-Vit D3 15Mcg Tab] [place]-3/Dha/Epa/Fish Oil [Fish Oil 1 cap PO DAILY 12/09/20 12/23/20 1,000 mg Softgel] Atorvastatin [Lipitor] 40 mg PO QPM #0 12/21/20 12/23/20 Clobetasol 0.05% Oint [Temovate 1 applic TOP BID 12/21/20 12/23/20 0.05% Oint] Clopidogrel [Plavix] 75 mg PO DAILY #0 12/21/20 12/23/20 Metoprolol Succinate [Toprol Xl] 25 mg PO BID #0 12/21/20 12/23/20 Nystatin [Nystop] 1 applic TOP BID bottle 12/21/20 12/23/20 - Allergies Allergies/Adverse Reactions: Allergies Allergy/AdvReac Type Severity Reaction Status Date / Time No Known Drug Allergies Allergy Verified 12/28/20 13:51 - Social History Does the pt smoke?: Yes Smoking Status: Never smoker Does the pt drink ETOH?: No Does the pt have substance abuse?: Yes - Immunizations Immunizations are current?: No - POLST Patient has POLST: No POLST Status: Full Code PD ED PE EXPANDED - General General: Lethargic - Neck Neck: Supple w/out meningeal sx. No: Adenopathy - Cardiac Cardiac: Regular Rate, Radial strong equal, Cap refill < 2 sec. No: Murmur Present - Respiratory Respiratory: Clear to ausultation woody. No: Distress, Labored - Abdomen Abdomen: Normal Bowel sounds. No: Tender to palpation - Derm Derm: Normal color, Warm and dry, Bruising (Multiple bruises on the arms and legs in various stages of healing.). No: Rash - Extremities Extremities: Normal. No: Deformity, Tenderness, Pedal edema bilateral - Neuro Neuro: Confused, CNII-XII intact - GCS Eye Opening: Spontaneous Motor: Obeys Commands Verbal: Confused Total: 14 Results - Vitals Vitals: Vital Signs - 24 hr 12/28/20 12/28/20 12/28/20 13:47 14:07 16:12 Temperature 35.7 C L Heart Rate 98 95 82 Respiratory 14 16 16 Rate Blood Pressure 161/119 H 124/93 H 120/75 O2 Saturation 98 98 97 12/28/20 12/28/20 12/28/20 16:13 19:10 21:00 Temperature 36.7 C Heart Rate 82 78 76 Respiratory 15 16 16 Rate Blood Pressure 120/75 133/52 H 111/66 O2 Saturation 97 96 99 Oxygen O2 Source [] Room air O2 Source Room air - Labs Labs: Laboratory Tests 12/28/20 12/28/20 12/28/20 13:57 13:57 13:57 WBC 13.9 H RBC 4.48 Hgb 13.9 Hct 41.1 MCV 91.7 MCH 31.0 MCHC 33.8 RDW 14.1 Plt Count 371 MPV 10.2 Neut # (Auto) 10.0 H Lymph # (Auto) 2.6 Clare # (Auto) 1.1 H Eos # (Auto) 0.0 Baso # (Auto) 0.1 Absolute Nucleated RBC 0.00 Nucleated RBC % 0.0 Sodium 135 Potassium 4.2 Chloride 103 Carbon Dioxide 23 Anion Gap 9.0 BUN 26 H Creatinine 0.9 Estimated GFR (MDRD) 63 L Glucose 106 H Calcium 10.0 Total Bilirubin 0.7 AST 24 ALT 23 Alkaline Phosphatase 94 Ammonia 30.2 Total Creatine Kinase 483 H Total Protein 8.3 H Albumin 4.3 Globulin 4.0 Albumin/Globulin Ratio 1.1 Lipase 69 H Urine Color Urine Clarity Urine pH Ur Specific [place] Urine Protein Urine Glucose (UA) Urine Ketones Urine Occult Blood Urine Nitrite Urine Bilirubin Urine Urobilinogen Ur Leukocyte Esterase Urine RBC Urine WBC Urine WBC Clumps Ur Squamous Epith Cells Urine Bacteria Ur Microscopic Review Urine Culture Comments Urine Opiates Screen Ur Oxycodone Screen Urine Methadone Screen Ur Propoxyphene Screen Ur Barbiturates Screen Ur Tricyclics Screen Ur Phencyclidine Scrn Ur Amphetamine Screen U Methamphetamines Scrn U Benzodiazepines Scrn Urine Cocaine Screen U Cannabinoids Screen 12/28/20 14:04 WBC RBC Hgb Hct MCV MCH MCHC RDW Plt Count MPV Neut # (Auto) Lymph # (Auto) Clare # (Auto) Eos # (Auto) Baso # (Auto) Absolute Nucleated RBC Nucleated RBC % Sodium Potassium Chloride Carbon Dioxide Anion Gap BUN Creatinine Estimated GFR (MDRD) Glucose Calcium Total Bilirubin AST ALT Alkaline Phosphatase Ammonia Total Creatine Kinase Total Protein Albumin Globulin Albumin/Globulin Ratio Lipase Urine Color YELLOW Urine Clarity CLEAR Urine pH 5.5 Ur Specific [place] 1.025 Urine Protein NEGATIVE Urine Glucose (UA) NEGATIVE Urine Ketones NEGATIVE Urine Occult Blood TRACE-INTA Urine Nitrite POSITIVE H Urine Bilirubin NEGATIVE Urine Urobilinogen 0.2 (NORMAL) Ur Leukocyte Esterase NEGATIVE Urine RBC 0-5 Urine WBC 6-10 H Urine WBC Clumps PRESENT Ur Squamous Epith Cells FEW Squamous Urine Bacteria Many H Ur Microscopic Review INDICATED Urine Culture Comments INDICATED Urine Opiates Screen NEGATIVE Ur Oxycodone Screen NEGATIVE Urine Methadone Screen NEGATIVE Ur Propoxyphene Screen NEGATIVE Ur Barbiturates Screen NEGATIVE Ur Tricyclics Screen NEGATIVE Ur Phencyclidine Scrn NEGATIVE Ur Amphetamine Screen POSITIVE H U Methamphetamines Scrn POSITIVE H U Benzodiazepines Scrn NEGATIVE Urine Cocaine Screen NEGATIVE U Cannabinoids Screen NEGATIVE - Rads (name of study) CXR Radiology: EMP read indepedently (No acute process) PD MEDICAL DECISION MAKING - ED course Complexity details: reviewed results, re-evaluated patient ED course: 65-year-old female returns to the emergency department for evaluation of altered mental status. Pt was discharged for altered mental status and encephalopathy yesterday from [facility]. This is her third encounter in the last 30 days for similar. With each hospitalization she has been offered shelter placement but for a variety reasons has declined. She has been home less than 24 hours when a neighbor noted on a status check that she was on the ground. Patient presents somewhat lethargic appears to be picking at things in the air and is confused to the current time. However she is able to follow commands. She does seem aware that she is in the hospital. She does not have any focal neuro deficits and cardiopulmonary exam is unremarkable. Screening labs show a moderate leukocytosis of 14,000. Chest x- ray without acute focal opacity. Her Her catheterized urine specimen is consistent with acute cystitis. Patient will be started on cephalexin as she does present with AMS. Her urine drug screen is positive for amphetamine/methamphetamine. With the last hospitalization there was concern for patient's Sudafed overuse/abuse however at that time her urine drug screen was negative for amphetamines. 1530: Patient appears to lack the capacity or ability to be safely dc home and remain home. I have spoken with Dr. Marquez. Patient has been declined for readmission to the hospital for altered mental status after discussion with case management and utilization review. Adult Protective Services has been involved and will be notified again. The goal at this time is to have her admitted to a shelter facility from the emergency department. I have requested social work to aid in this process. However given that she tested positive for both Meth and amphetamines they feel she is clinically intoxicated and not able to participate in discharge planning. Pt will board in the ED until appropriate bed placement is found. Pt will be started on scheduled Keppra and will require 14 doses of keflex for UTI. Labs will be rechecked in am for evaluation of her noted elevated CPK today. Pt will be signed out to my night time colleague as she boards in the ED pending SW placement in SNF Departure - Departure Clinical Impression: Elevated CPK, Positive urine drug screen, Encephalopathy UTI (urinary tract infection) Qualifiers: Urinary tract infection type: acute cystitis Hematuria presence: without hematuria Qualified Code(s): N30.00 - Acute cystitis without hematuria AMS (altered mental status) Qualifiers: Altered mental status type: coma Coma depth: Apollo coma 13-15 Coma timing: at arrival to emergency department Qualified Code(s): R40.2412 - Apollo coma scale score 13-15, at arrival to emergency department Condition: Stable Record reviewed to determine appropriate education?: Yes
[2020-12-28 14:04] LABS: BASOPHILS # (AUTO) 0.1 10^3/uL (0.0-0.1); BASOPHILS % (AUTO) 0.6 %; EOSINOPHILS % (AUTO) 0.1 %; HCT - HEMATOCRIT 41.1 % (37.0-47.0); HGB - HEMOGLOBIN 13.9 g/dL (12.0-16.0); LYMPHOCYTES # (AUTO) 2.6 10^3/uL (1.5-3.5); LYMPHOCYTES % (AUTO) 18.9 %; MEAN CORPUSCULAR HGB CONC 33.8 g/dL (32.0-36.0); MEAN CORPUSCULAR VOLUME 91.7 fL (81.0-99.0); MEAN PLATELET VOLUME 10.2 fL (7.9-10.8); MONOCYTES # (AUTO) 1.1 10^3/uL (0.0-1.0); MONOCYTES % (AUTO) 7.7 %; NEUTROPHILS % (AUTO) 72.3 %; PLT - PLATELET COUNT 371 10^3/uL (130-450); RED BLOOD COUNT 4.48 10^6/uL (4.20-5.40); RED CELL DISTRIBUTION WIDTH 14.1 % (12.0-15.0); WHITE BLOOD COUNT 13.9 x10^3/uL (4.8-10.8)
[2020-12-28 14:11] LABS: MUDS CUTOFF CONCENTRATIONS CUTOFF CONC BELOW:
[2020-12-28 14:17] LABS: ALBUMIN 4.3 g/dL (3.2-5.5); ALBUMIN/GLOBULIN RATIO 1.1 (1.0-2.2); BILIRUBIN,TOTAL 0.7 mg/dL (0.2-1.0); CREATININE 0.9 mg/dL (0.4-1.0); POTASSIUM 4.2 mmol/L (3.5-5.0); TOTAL PROTEIN 8.3 g/dL (6.7-8.2)
[2020-12-28 14:20] LABS: BILIRUBIN,URINE NEGATIVE (NEGATIVE); GLUCOSE, URINE (UA) NEGATIVE (NEGATIVE); KETONES,URINE (UA) NEGATIVE (NEGATIVE); LEUKOCYTE ESTERASE, URINE NEGATIVE (NEGATIVE); NITRITE,URINE POSITIVE (NEGATIVE); OCCULT BLOOD,URINE TRACE-INTA (NEGATIVE); PH,URINE 5.5 PH (5.0-7.5); PROTEIN,URINE NEGATIVE (NEGATIVE); UROBILINOGEN,URINE 0.2 (NORMAL) E.U./dL (NORMAL)
[2020-12-28] MEDS ORDERED: SODIUM CHLORIDE 0.9% 1,000 ML IV STA ×2 (14:20→18:09)
[2020-12-28 14:21] LABS: CLARITY,URINE CLEAR (CLEAR)
[2020-12-28 14:28] LABS: AMPHETAMINE SCREEN,URINE POSITIVE (NEGATIVE); BARBITURATE SCREEN,UR NEGATIVE (NEGATIVE); BENZODIAZEPINES SCREEN, URINE NEGATIVE (NEGATIVE); COCAINE SCREEN URINE NEGATIVE (NEGATIVE); METHADONE SCREEN, URINE NEGATIVE (NEGATIVE); METHAMPHETAMINES SCREEN, URINE POSITIVE (NEGATIVE); OPIATE SCREEN, URINE NEGATIVE (NEGATIVE); OXYCODONE SCREEN, URINE NEGATIVE (NEGATIVE); PROPOXYPHENE SCREEN, URINE NEGATIVE (NEGATIVE); THC CANNABINOID SCREEN, URINE NEGATIVE (NEGATIVE); TRICYCLIC ANTIDEPRESSANT,URINE NEGATIVE (NEGATIVE)
[2020-12-28 14:36] LABS: BACTERIA,URINE Many /HPF (None Seen); RBC,URINE 0-5 /HPF (0-5); SQUAMOUS EPITHELIAL CELL,UR FEW Squamous (<= Few); WBC CLUMPS,URINE PRESENT
--- NOTE | 2020-12-28 14:36 | XRAY Report ---
PROCEDURE: Chest 1 View X-Ray INDICATIONS: chest pain TECHNIQUE: One view of the chest was acquired. COMPARISON: Prior chest plain films from earlier this month and also from 02/09/2020 reviewed. FINDINGS: Surgical changes and devices: None. Lungs and pleura: No pleural effusions or pneumothorax. Lungs are clear. Mediastinum: Mediastinal contours appear normal. Heart size is normal. Bones and chest wall: No suspicious bony lesions. Overlying soft tissues appear unremarkable. IMPRESSION: Normal for age, source of current symptoms is not seen. Reviewed by: Tylor Chowdhury MD on 12/28/2020 2:34 PM PDT Approved by: Tylor Chowdhury MD on 12/28/2020 2:34 PM PDT Station ID: [id number]
[2020-12-28] MEDS ORDERED: cephALEXin 250 MG CAPSULE PO STA (15:00)
[2020-12-28] MEDS: cephALEXin 250 MG CAPSULE PO SCH (21:07)
[2020-12-28] MEDS: levETIRAcetam 250 MG TABLET PO SCH (21:08)
[2020-12-29] MEDS ORDERED: KETOROLAC 30 MG/ML VIAL IVP STA ×2 (02:20→20:22)
[2020-12-29 08:40] LABS: ALBUMIN 3.5 g/dL (3.2-5.5); ALBUMIN/GLOBULIN RATIO 1.2 (1.0-2.2); BILIRUBIN,TOTAL 0.6 mg/dL (0.2-1.0); CALCIUM 8.8 mg/dL (8.5-10.3); CREATININE 0.9 mg/dL (0.4-1.0); TOTAL PROTEIN 6.5 g/dL (6.7-8.2)
[2020-12-29] MEDS ORDERED: ACETAMINOPHEN 325 MG TABLET PO STA (15:19)
[2020-12-29] MEDS: cephALEXin 250 MG CAPSULE PO SCH ×2 (15:27→20:30)
[2020-12-29] MEDS: levETIRAcetam 250 MG TABLET PO SCH ×2 (15:27→20:31)
--- NOTE | 2020-12-29 15:29 | ED Physician Documentation ---
ED Addendum - Addendum Addendum: 12/29/20 15:28 65-year-old female has remained in the emergency department overnight awaiting correction facility/rehab placement. [facility] has accepted patient but called and stated the patient will need a new PT/OT eval for authorization through [facility]. This has been ordered. I personally spoken with the patient she continues to desire rehab placement. She had reported that she used meth to help with pep herself up but states that it is not habitual. She has historically been on Ritalin in order to help improve her stamina but she has not received a prescription for this since July. A prescription for Ritalin will not be levied on discharge or transfer from the emergency department. She remains in the emergency department, compliant with care and at this time alert and oriented to situation and place 12/29/20 15:29
[2020-12-30] MEDS ORDERED: KETOROLAC 30 MG/ML VIAL IVP STA (04:39)
[2020-12-30] MEDS: levETIRAcetam 250 MG TABLET PO SCH (09:08)
[2020-12-30] MEDS: cephALEXin 250 MG CAPSULE PO SCH (09:08)
[2020-12-30 11:01] VITALS: BP 128/78
[2020-12-30] MEDS ORDERED: ACETAMINOPHEN 325 MG TABLET PO STA (12:28)
--- NOTE | 2020-12-30 12:28 | ED Physician Documentation ---
ED Addendum - Addendum Addendum: 12/30/20 12:27And reportedly had no problems overnight. She remains stable in the ER. Physical therapy and Occupational Therapy came and saw her this morning which was requested by the nursing facility evaluating her. These reports are done. She did ask for some medicine for general pains. She typically is on Tylenol and will give her a dose of that. Otherwise social work will now reevaluate with the OT PT consult and see if the patient will be accepted.
[2020-12-30 12:35] LABS: B. PARAPERTUSSIS- RESP PCR PAN NOT DETECTED; B. PERTUSSIS- RESP PCR PANEL NOT DETECTED; C. PNEUMONIAE- RESP PCR PANEL NOT DETECTED; CORONAVIRUS 229E-RESP PCR NOT DETECTED; CORONAVIRUS HKU1-RESP PCR NOT DETECTED; CORONAVIRUS NL63-RESP PCR NOT DETECTED; CORONAVIRUS OC43-RESP PCR NOT DETECTED; HUMAN METAPNEUMOVIRUS NOT DETECTED; INFLUENZA A- RESP PCR PANEL NOT DETECTED; INFLUENZA B - RESP PCR PANEL NOT DETECTED; M. PNEUMONIAE- RESP PCR PANEL NOT DETECTED; PARAINFLUENZA VIRUS 1 NOT DETECTED; PARAINFLUENZA VIRUS 2 NOT DETECTED; PARAINFLUENZA VIRUS 3 NOT DETECTED; PARAINFLUENZA VIRUS 4 NOT DETECTED; RHINOVIRUS/ENTEROVIRUS NOT DETECTED; RSV- RESP PCR PANEL NOT DETECTED; SARS-CoV-2 -RESP PCR PANEL NOT DETECTED
--- NOTE | 2021-01-02 15:32 | ED Physician Documentation ---
ED Addendum - Addendum Addendum: 01/02/21 15:32 Discharged to SNF for PT and OT
== END 2020-12-30 14:54 | disposition home or self-care (01) ==
LOC: EDUNIT# → ED 13:37
DX: G93.40 Encephalopathy, unspecified (principal); N30.00 Acute cystitis without hematuria; R40.2412 Glasgow coma scale score 13-15, at arrival to emergency department; I25.10 Atherosclerotic heart disease of native coronary artery without angina pectoris; I11.9 Hypertensive heart disease without heart failure
CPT/HCPCS: 36415; 71045; 80053; 80306; 81001; 82140; 82550; 83690; 85025; 87086; 87181; 87631; 96361; 96374; 96376; 99283; 99285; A9270; 0202U; 81003

== ENCOUNTER 2020-12-30 14:36 | Outpatient (CLI) | payer MEDICARE, MEDICAID | END 2020-12-30 14:37 | disposition other institution (70) | LOC: EMS 14:36 | PROVIDERS: ATTEND Internal Medicine | DX: G40.909 Epilepsy, unspecified, not intractable, without status epilepticus (principal); R41.0 Disorientation, unspecified | CPT/HCPCS: A0425; A0428 ==

== ENCOUNTER 2021-01-25 17:28 | Outpatient (CLI) | payer MEDICARE, MEDICAID | END 2021-01-25 17:29 | disposition critical access hospital (66) | LOC: EMS 17:28 | DX: Z74.2 Need for assistance at home and no other household member able to render care (principal) | CPT/HCPCS: A0425; A0429 ==

== ENCOUNTER 2021-01-25 17:47 | Emergency (ER) | payer MEDICARE, MEDICAID ==
--- NOTE | 2021-01-25 18:45 | ED Physician Documentation ---
History of Present Illness - Stated complaint Stated Complaint: GLF - Chief complaint Chief Complaint: General - Additonal information Additional information: This is a 65 yo F w/ pmh of seizure disorder, [place], hypothyroid, and recent admit for encephalopathy last month. She stayed in the hospital several days and then was discharged home. She returned 24 hours later requesting placement and spent 2 days in the ER awaiting SNF placement. She was discharged to a SNF and then subsequently left the SNF against recommendations because she wanted to return home. She states today she felt in her usoh, went grocery shopping, and came home. She got off balance w/ her walker and fell onto her right side. She denies any injury, didn't hit her head, and denies any acute pain. She states she couldn't get up though so was laying on the floor yelling and her neighbor called EMS who brought her here. She reports feeling fine overall, has generalized body pain which is not new and not worse since her fall. She has no headache, vision changes, neck pain, chest pain, dyspnea, abd pain n/v/d, or urinary sx. She is hungry and requesting food. She states she wants us to arrange for home health. She does not want to go to a SNF or other placement and wants to remain at home. Review of Systems Constitutional: reports: Reviewed and negative Eyes: reports: Reviewed and negative Ears: reports: Reviewed and negative Nose: reports: Reviewed and negative Throat: reports: Reviewed and negative Cardiac: reports: Reviewed and negative Respiratory: reports: Reviewed and negative GI: reports: Reviewed and negative : reports: Reviewed and negative Musculoskeletal: reports: Other (Genearlized non specific body pains) Neurologic: reports: Reviewed and negative Psychiatric: reports: Reviewed and negative Endocrine: reports: Reviewed and negative Immunocompromised: reports: Reviewed and negative PD PAST MEDICAL HISTORY - Past Medical History Past Medical History: Yes Cardiovascular: Hypertension, Coronary artery disease, [place] Respiratory: None Neuro: Multiple sclerosis Endocrine/Autoimmune: Other 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: Other : Chronic bladder infection HEENT: None Psych: Depression, ADD/ADHD Musculoskeletal: Chronic back pain, Other Derm: Other - Past Surgical History Past Surgical History: Yes Ortho: Spine surgery /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 - Present Medications Home Medications: Ambulatory Orders Medication Instructions Recorded Confirmed Cholestyramine [Questran] 4 gm PO QPM 04/28/13 12/23/20 Baclofen 10 mg PO QID 07/18/19 12/23/20 Glucos Sul 2Kcl/MSM/Chond/C/Mn 1 cap PO DAILY 07/18/19 12/23/20 [Glucosamine Chondroitin Cap] Levothyroxine Sodium 50 mcg PO DAILY 07/18/19 12/23/20 Multivitamin/Iron/Folic Acid 1 ea ORAL DAILY 07/18/19 12/23/20 [Centrum Women Tablet] Methylphenidate HCl 40 mg PO DAILY 02/10/20 12/23/20 [Methylphenidate ER] levETIRAcetam [Roweepra] 500 mg PO BID 02/10/20 12/23/20 Acetaminophen [Tylenol] 650 mg PO Q4HR PRN 06/15/20 12/23/20 Oxymetazoline HCl [Afrin] 2 sprays WILLIE BID PRN bottle 06/15/20 12/23/20 Calcium Carbonate/Vitamin D3 1 each PO DAILY 12/09/20 12/23/20 [Calcium 500Mg-Vit D3 15Mcg Tab] [place]-3/Dha/Epa/Fish Oil [Fish Oil 1 cap PO DAILY 12/09/20 12/23/20 1,000 mg Softgel] Atorvastatin [Lipitor] 40 mg PO QPM #0 12/21/20 12/23/20 Clobetasol 0.05% Oint [Temovate 1 applic TOP BID 12/21/20 12/23/20 0.05% Oint] Clopidogrel [Plavix] 75 mg PO DAILY #0 12/21/20 12/23/20 Metoprolol Succinate [Toprol Xl] 25 mg PO BID #0 12/21/20 12/23/20 Nystatin [Nystop] 1 applic TOP BID bottle 12/21/20 12/23/20 - Allergies Allergies/Adverse Reactions: Allergies Allergy/AdvReac Type Severity Reaction Status Date / Time No Known Drug Allergies Allergy Verified 01/25/21 18:03 - Social History Does the pt smoke?: Yes Smoking Status: Current every day smoker Does the pt drink ETOH?: No Does the pt have substance abuse?: Yes - Immunizations Immunizations are current?: No - POLST Patient has POLST: No POLST Status: Full Code PD ED PE NORMAL - Vitals Vital signs reviewed: Yes - General General: Alert and oriented X 3, No acute distress, Well developed/nourished - HEENT HEENT: Atraumatic, PERRL, EOMI, Moist mucous membranes, Pharynx benign - Neck Neck: Supple, no meningeal sign, No JVD - Cardiac Cardiac: RRR, No murmur, No gallop, No rub - Respiratory Respiratory: No respiratory distress, Clear bilaterally - Abdomen Abdomen: Normal bowel sounds, Soft, Non tender, Non distended - Back Back: No CVA TTP, No spinal TTP - Derm Derm: Normal color, Warm and dry. 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 She has no apparent injuries. She is ambulatory with walker w/o difficulty. Her neuro exam is reassuring. She is here primarily because she wants us to arrange home health. Pt was recently placed in SNF but left on her own volition because she wanted to return home and does not want placement. She states she is working w her/ PCP to get home health services and I advised her to continue doing so. I don't see indication for new workup today as fall was mechanical and she sustained no apparent injuries. Pt drives and takes care of her own ADLs and her own grocery shopping and is at her baseline activity level at this time. She was advised to take prn ibuprofen or tylenol for pain. Return precautions reviewed in detail w/ pt. Departure - Departure Disposition: 01 Home, Self Care Clinical Impression: Generalized muscle ache Condition: Good Comments: You presented after a fall at home. There are no apparent injuries and your physical exam is reassuring. I do think you would benefit from additional home health or a home care provider. Please continue working with your primary care provider to arrange home health services.
[2021-01-25 19:25] VITALS: BP 101/86
== END 2021-01-25 19:25 | disposition home or self-care (01) ==
LOC: EDUNIT# → EDBD → ED 17:47
DX: M79.10 Myalgia, unspecified site (principal); I10 Essential (primary) hypertension; F17.200 Nicotine dependence, unspecified, uncomplicated
CPT/HCPCS: 99282; 99283

== ENCOUNTER 2021-02-11 09:29 | Outpatient (CLI) | payer MEDICARE, MEDICAID | END 2021-02-11 09:30 | disposition critical access hospital (66) | LOC: EMS 09:29 | DX: R41.82 Altered mental status, unspecified (principal) | CPT/HCPCS: A0425; A0429 ==

== ENCOUNTER 2021-02-11 09:48 | Observation (INO) | payer MEDICARE, MEDICAID ==
[2021-02-11] MEDS ORDERED: SODIUM CHLORIDE 0.9% 1,000 ML IV STA (10:24)
[2021-02-11 10:41] LABS: BILIRUBIN,URINE NEGATIVE (NEGATIVE); GLUCOSE, URINE (UA) NEGATIVE (NEGATIVE); KETONES,URINE (UA) NEGATIVE (NEGATIVE); LEUKOCYTE ESTERASE, URINE NEGATIVE (NEGATIVE); MUDS CUTOFF CONCENTRATIONS CUTOFF CONC BELOW:; NITRITE,URINE POSITIVE (NEGATIVE); OCCULT BLOOD,URINE NEGATIVE (NEGATIVE); PROTEIN,URINE NEGATIVE (NEGATIVE); UROBILINOGEN,URINE 0.2 (NORMAL) E.U./dL (NORMAL)
[2021-02-11 10:47] LABS: BACTERIA,URINE Moderate /HPF (None Seen); CASTS, URINE 3-5 Hyaline Casts /LPF; CLARITY,URINE HAZY (CLEAR); RBC,URINE 0-5 /HPF (0-5); SQUAMOUS EPITHELIAL CELL,UR FEW Squamous (<= Few)
[2021-02-11 10:51] LABS: AMPHETAMINE SCREEN,URINE NEGATIVE (NEGATIVE); BARBITURATE SCREEN,UR NEGATIVE (NEGATIVE); BENZODIAZEPINES SCREEN, URINE NEGATIVE (NEGATIVE); COCAINE SCREEN URINE NEGATIVE (NEGATIVE); METHADONE SCREEN, URINE NEGATIVE (NEGATIVE); METHAMPHETAMINES SCREEN, URINE NEGATIVE (NEGATIVE); OPIATE SCREEN, URINE NEGATIVE (NEGATIVE); OXYCODONE SCREEN, URINE NEGATIVE (NEGATIVE); PROPOXYPHENE SCREEN, URINE NEGATIVE (NEGATIVE); THC CANNABINOID SCREEN, URINE NEGATIVE (NEGATIVE); TRICYCLIC ANTIDEPRESSANT,URINE NEGATIVE (NEGATIVE)
[2021-02-11 11:06] LABS: KETONES, SERUM (ACETEST) NEGATIVE (NEGATIVE)
[2021-02-11] MEDS ORDERED: cefTRIAXone 1 GM in SODIUM CHLORIDE 0.9% MINIBAG 100 ML IV STA (11:11)
[2021-02-11 11:21] LABS: ACETAMINOPHEN < 10 ug/mL (10-30); ALBUMIN 4.1 g/dL (3.2-5.5); ALKALINE PHOSPHATASE 105 IU/L (42-121); ALT ALANINE AMINOTRANSFERASE 17 IU/L (10-60); AST ASPARTATE AMINOTRANSFERASE 21 IU/L (10-42); BILIRUBIN,TOTAL 0.5 mg/dL (0.2-1.0); BUN - BLOOD UREA NITROGEN 25 mg/dL (6-20); CALCIUM 9.5 mg/dL (8.5-10.3); CARBON DIOXIDE - CO2 26 mmol/L (21-32); CHLORIDE 100 mmol/L (101-111); CREATININE 1.3 mg/dL (0.4-1.0); ETOH - ETHANOL < 5.0 mg/dL; GFR - MDRD 41 (>89); GLUCOSE 101 mg/dL (70-100); LIPASE 55 U/L (22-51); POTASSIUM 3.6 mmol/L (3.5-5.0); SALICYLATE < 6.0 mg/dL; SODIUM 142 mmol/L (135-145); TOTAL PROTEIN 8.2 g/dL (6.7-8.2)
--- NOTE | 2021-02-11 11:51 | CT Report ---
PROCEDURE: HEAD WO INDICATIONS: altered LOC TECHNIQUE: Noncontrast 4.5 mm thick angled axial sections acquired from the foramen magnum to the vertex. For r adiation dose reduction, the following was used: automated exposure control, adjustment of mA and/or kV according to patient size. COMPARISON: 12/09/2020, 01/24/2015, 01/09/2015. Correlation is made with the accompanying chest radiograp h, 02/11/2021. FINDINGS: Image quality: Motion artifact is noted. The patient was unable to cooperate with this examinatio n. Images are repeated, with some improvement. CSF spaces: Basal cisterns are patent. No extra-axial fluid collections. Ventricles are normal in size and shape. Brain: No midline shift. No intracranial masses or hemorrhage. Zavaleta-white matter interface is norm al. Skull and face: Calvarium and visualized facial bones are intact, without suspicious lesions. Sinuses: Visualized sinuses and mastoids are clear. IMPRESSION: Limited intracranial study, without an acute abnormality identified. Stable from prior. Reviewed by: Sony Montenegro MD on 02/11/2021 10:50 AM TARI Approved by: Sony Montenegro MD on 02/11/2021 10:50 AM TARI Station ID: [id number]
--- NOTE | 2021-02-11 11:52 | XRAY Report ---
PROCEDURE: Chest 1 View X-Ray INDICATIONS: chest pain TECHNIQUE: One view of the chest was acquired. COMPARISON: 12/28/2020, 12/22/2020, 12/22/2020. Correlation is also made with the accompanying head CT, 02/11/2021. FINDINGS: Surgical changes and devices: None. Lungs and pleura: An incomplete inspiratory result is noted, with low lung volumes and crowding of t he vascular markings. No focal infiltrates are seen. No large pneumothorax or large pleural effusion can be seen. Mediastinum: Mediastinal contours appear normal. Heart size is normal. Bones and chest wall: No suspicious bony lesions. Age-appropriate degenerative changes are seen. Overlying soft tissues appear unremarkable. IMPRESSION: Portable chest within normal limits for age. Reviewed by: Sony Montenegro MD on 02/11/2021 10:51 AM TARI Approved by: Sony Montenegro MD on 02/11/2021 10:51 AM TARI Station ID: [id number]
--- NOTE | 2021-02-11 12:32 | ED Physician Documentation ---
PD HPI ALTERED MENTAL STATUS - Stated complaint Stated Complaint: AMS - Chief complaint Chief Complaint: Neuro - History obtained from History obtained from: Patient, EMS - History of Present Illness Timing - onset: How many days ago (several) Timing - duration: Days Timing - details: Gradual onset, Still present Quality / character: Confused, Disoriented, Agitated Associated symptoms: General weakness Contributing factors: Known psych illness. No: Anticoagulated Basline status: Alert and oriented X 3, Ambulatory, Independent Similar symptoms before: Diagnosis (UTI, dehydration, MS) Recently seen: Emergency Dept (seen here 17 days ago after a fall. She was admitted in December with altered LOC, dehydration and medication missuse. She has refused fpc placement.) - Additional information Additional information: 64-year-old female with a history of MS and ADHD presents again here today with altered mental status. She has a prior history of altered mental status related to medication misuse and to urinary tract infection. We are not able to obtain any significant history from the patient herself. She is brought in here by ambulance with reports that neighbors reported the patient to be increasingly confused over the past 3 days. Review of Systems Unable to obtain: AMS, Confused PD PAST MEDICAL HISTORY - Past Medical History Cardiovascular: Hypertension, Coronary artery disease, [place] Respiratory: None Neuro: Multiple sclerosis Endocrine/Autoimmune: Other GI: None DIRECTOR CAREER SERVICES: Other : Chronic bladder infection HEENT: None Psych: Depression, ADD/ADHD Musculoskeletal: Chronic back pain, Other Derm: Other - Past Surgical History Past Surgical History: Yes Ortho: Spine surgery /DIRECTOR CAREER SERVICES: Hysterectomy - Present Medications Home Medications: Ambulatory Orders Medication Instructions Recorded Confirmed Cholestyramine [Questran] 4 gm PO QPM 04/28/13 12/23/20 Baclofen 10 mg PO QID 07/18/19 12/23/20 Glucos Sul 2Kcl/MSM/Chond/C/Mn 1 cap PO DAILY 07/18/19 12/23/20 [Glucosamine Chondroitin Cap] Levothyroxine Sodium 50 mcg PO DAILY 07/18/19 12/23/20 Multivitamin/Iron/Folic Acid 1 ea ORAL DAILY 07/18/19 12/23/20 [Centrum Women Tablet] Methylphenidate HCl 40 mg PO DAILY 02/10/20 12/23/20 [Methylphenidate ER] levETIRAcetam [Roweepra] 500 mg PO BID 02/10/20 12/23/20 Acetaminophen [Tylenol] 650 mg PO Q4HR PRN 06/15/20 12/23/20 Oxymetazoline HCl [Afrin] 2 sprays WILLIE BID PRN bottle 06/15/20 12/23/20 Calcium Carbonate/Vitamin D3 1 each PO DAILY 12/09/20 12/23/20 [Calcium 500Mg-Vit D3 15Mcg Tab] [place]-3/Dha/Epa/Fish Oil [Fish Oil 1 cap PO DAILY 12/09/20 12/23/20 1,000 mg Softgel] Atorvastatin [Lipitor] 40 mg PO QPM #0 12/21/20 12/23/20 Clobetasol 0.05% Oint [Temovate 1 applic TOP BID 12/21/20 12/23/20 0.05% Oint] Clopidogrel [Plavix] 75 mg PO DAILY #0 12/21/20 12/23/20 Metoprolol Succinate [Toprol Xl] 25 mg PO BID #0 12/21/20 12/23/20 Nystatin [Nystop] 1 applic TOP BID bottle 12/21/20 12/23/20 - Allergies Allergies/Adverse Reactions: Allergies Allergy/AdvReac Type Severity Reaction Status Date / Time No Known Drug Allergies Allergy Verified 01/25/21 18:03 - Social History Does the pt smoke?: Yes Smoking Status: Current every day smoker Does the pt drink ETOH?: No Does the pt have substance abuse?: Yes - Immunizations Immunizations are current?: No - POLST Patient has POLST: No POLST Status: Full Code PD ED PE NORMAL - Vitals Vital signs reviewed: Yes (hypertensive mild ) - General General: Well developed/nourished, Other (moaning, prefers eyes closed. Opens to voice but does not track longer than seconds. unintelligible voice. 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, No motor deficit, No sensory deficit Eye Opening: To Voice Motor: Localizes to Pain Verbal: Confused GCS Score: 12 - Psych Psych: Normal mood, Normal affect Results - Vitals Vitals: Vital Signs - 24 hr 02/11/21 02/11/21 02/11/21 09:57 10:30 11:00 Temperature 37.2 C Heart Rate 81 65 65 Respiratory 18 31 H 14 Rate Blood Pressure 140/93 H 128/83 H 148/120 H O2 Saturation 98 97 100 02/11/21 12:34 Temperature Heart Rate 74 Respiratory 18 Rate Blood Pressure 152/76 H O2 Saturation 98 Oxygen O2 Source [With Activity] Room air O2 Source [Without Activity] Room air O2 Source Room air - EKG (time done) 0953 Rate: Rate (enter#) (60) Rhythm: NSR Intervals: RBBB Ischemia: Q waves Compare to prior EKG: Unchanged from prior EKG (SPT 12-22-20 no changes) Computer interpretation: Agree with computer - Labs Labs: Laboratory Tests 02/11/21 02/11/21 02/11/21 10:15 10:52 10:52 Sodium 142 Potassium 3.6 Chloride 100 L Carbon Dioxide 26 Anion Gap 16.0 H BUN 25 H Creatinine 1.3 H Estimated GFR (MDRD) 41 L Glucose 101 H Calcium 9.5 Total Bilirubin 0.5 AST 21 ALT 17 Alkaline Phosphatase 105 Total Protein 8.2 Albumin 4.1 Globulin 4.1 Albumin/Globulin Ratio 1.0 Lipase 55 H TSH 1.19 Urine Color YELLOW Urine Clarity HAZY Urine pH 6.0 Ur Specific [place] 1.020 Urine Protein NEGATIVE Urine Glucose (UA) NEGATIVE Urine Ketones NEGATIVE Urine Occult Blood NEGATIVE Urine Nitrite POSITIVE H Urine Bilirubin NEGATIVE Urine Urobilinogen 0.2 (NORMAL) Ur Leukocyte Esterase NEGATIVE Urine RBC 0-5 Urine WBC 6-10 H Ur Squamous Epith Cells FEW Squamous Urine Bacteria Moderate H Urine Casts 3-5 Hyaline Casts Ur Microscopic Review INDICATED Urine Culture Comments INDICATED Nasal Adenovirus (PCR) Nasal B. parapertussis DNA (PCR) Nasal Coronavir 229E PCR Nasal Coronavir HKU1 PCR Nasal Coronavir NL63 PCR Nasal Coronavir OC43 PCR Nasal Enterovir/Rhinovir PCR Nasal Influenza B PCR Nasal Influenza A PCR Nasal Parainfluen 1 PCR Nasal Parainfluen 2 PCR Nasal Parainfluen 3 PCR Nasal Parainfluen 4 PCR Nasal RSV (PCR) Nasal B.pertussis DNA PCR Nasal C.pneumoniae (PCR) Willie Human Metapneumo PCR Nasal M.pneumoniae (PCR) Nasal SARS-CoV-2 (PCR) Salicylates < 6.0 Urine Opiates Screen NEGATIVE Ur Oxycodone Screen NEGATIVE Urine Methadone Screen NEGATIVE Ur Propoxyphene Screen NEGATIVE Acetaminophen < 10 L Ur Barbiturates Screen NEGATIVE Ur Tricyclics Screen NEGATIVE Ur Phencyclidine Scrn NEGATIVE Ur Amphetamine Screen NEGATIVE U Methamphetamines Scrn NEGATIVE U Benzodiazepines Scrn NEGATIVE Urine Cocaine Screen NEGATIVE U Cannabinoids Screen NEGATIVE Ethyl Alcohol < 5.0 Serum Ketones NEGATIVE 02/11/21 13:18 Sodium Potassium Chloride Carbon Dioxide Anion Gap BUN Creatinine Estimated GFR (MDRD) Glucose Calcium Total Bilirubin AST ALT Alkaline Phosphatase Total Protein Albumin Globulin Albumin/Globulin Ratio Lipase TSH Urine Color Urine Clarity Urine pH Ur Specific [place] Urine Protein Urine Glucose (UA) Urine Ketones Urine Occult Blood Urine Nitrite Urine Bilirubin Urine Urobilinogen Ur Leukocyte Esterase Urine RBC Urine WBC Ur Squamous Epith Cells Urine Bacteria Urine Casts Ur Microscopic Review Urine Culture Comments Nasal Adenovirus (PCR) NOT DETECTED Nasal B. parapertussis DNA (PCR) NOT DETECTED Nasal Coronavir 229E PCR NOT DETECTED Nasal Coronavir HKU1 PCR NOT DETECTED Nasal Coronavir NL63 PCR NOT DETECTED Nasal Coronavir OC43 PCR NOT DETECTED Nasal Enterovir/Rhinovir PCR NOT DETECTED Nasal Influenza B PCR NOT DETECTED Nasal Influenza A PCR NOT DETECTED Nasal Parainfluen 1 PCR NOT DETECTED Nasal Parainfluen 2 PCR NOT DETECTED Nasal Parainfluen 3 PCR NOT DETECTED Nasal Parainfluen 4 PCR NOT DETECTED Nasal RSV (PCR) NOT DETECTED Nasal B.pertussis DNA PCR NOT DETECTED Nasal C.pneumoniae (PCR) NOT DETECTED Willie Human Metapneumo PCR NOT DETECTED Nasal M.pneumoniae (PCR) NOT DETECTED Nasal SARS-CoV-2 (PCR) NOT DETECTED Salicylates Urine Opiates Screen Ur Oxycodone Screen Urine Methadone Screen Ur Propoxyphene Screen Acetaminophen Ur Barbiturates Screen Ur Tricyclics Screen Ur Phencyclidine Scrn Ur Amphetamine Screen U Methamphetamines Scrn U Benzodiazepines Scrn Urine Cocaine Screen U Cannabinoids Screen Ethyl Alcohol Serum Ketones - Rads (name of study) chest Radiology: Prelim report reviewed (Impression: Portable chest within normal limits for age.), EMP read indepedently, See rad report CT head without Radiology: Prelim report reviewed (Impression: Limited intracranial study, without an acute abnormality identified. Stable from prior.), EMP read indepedently, See rad report Procedures - IVC sono (time) 1010 Bedside IVC sono: IVC measures (cm) (0.72), Significant dehydration (est nearly 3 liter deficit) PD MEDICAL DECISION MAKING - ED course Complexity details: reviewed old records, reviewed results, re-evaluated patient, considered differential, d/w patient ED course: 65-year-old female with a prior history of seizure disorder MS ADHD and recurrent dehydration presents again today with altered level of consciousness. She has had this previously with urinary tract infection and with dehydration and with medication misuse. Today she is found to be significantly dehydrated and she is administered saline. There is evidence of UTI on evaluation of the catheterized urine specimen and I am not able to get an adequate history to determine symptoms. She is treated here imperically with rocephin Departure - Departure Disposition: 66 [facility] DC/Xfer Clinical Impression: Encephalopathy, Dehydration UTI (urinary tract infection) Qualifiers: Urinary tract infection type: acute cystitis Hematuria presence: without hematuria Qualified Code(s): N30.00 - Acute cystitis without hematuria Discharge Date/Time: 02/11/21 14:56
[2021-02-11] MEDS ORDERED: ACETAMINOPHEN 325 MG TABLET PO PRN (13:19)
[2021-02-11] MEDS ORDERED: ONDANSETRON 4 MG/2 ML VIAL IVP PRN ×2 (13:19→15:12)
[2021-02-11] MEDS ORDERED: SODIUM CHLORIDE FLUSH 0.9% 10 ML SYRINGE IVP PRN ×2 (13:19→15:12)
[2021-02-11] MEDS ORDERED: LORazepam 2 MG/ML VIAL IVP STA (13:24)
--- NOTE | 2021-02-11 13:39 | HISTORY & PHYSICAL EXAMINATION ---
Chief Complaint - Chief Complaint Chief Complaint: AMS History of Present Illness - Admitted From Admitted From:: ER - History Obtained From Records Reviewed: [employer] History obtained from: ER report and [employer] Exam Limitations: pt's confused - History of Present Illness HPI Comment/Other: This is a 65-yrs old female With a past medical history significant noted for multiple sclerosis, seizure disorder, dehydration, chronic bladder infections with multiple admissions, AMS, chronic back pain, chronic opioid d ependency, depression and hypothyroidism who was brought to ER our hospital by EMS for metabolic encephalopathy. EMS was called and neighbors report pt has been increasingly confused over last several days. Patient is alert And comfortable sleeping in the bed. Patient had ativan in the ER. pt is unable to follow commands or answer questions now. pt has hx of encephalopathy, Sometimes due to UTIs and Sometimes due to incorrect use of her medications. Pt usually presents after being found confused by neighbors or family and is brought to the hospital. CT of head was stable compared to prior. Chest x-ray is within normal limits. Routine laboratory tests that show increased creatinine at 1.3. CBC and lactic acid are pending. UA Analysis show Positive nitrate, bacteria, and elevated WBC. In the ER, patient is afebrile, patient is hemodynamic stable now. I could not discuss goals of care with the patient due to her encephalopathy and therefore she will be made a full code now, would adjust as pt or family request differently. History - Past Medical History Cardiovascular: reports: Hypertension, Coronary artery disease, [place] Respiratory: reports: None Neuro: reports: Multiple sclerosis Endocrine/Autoimmune: reports: Other GI: reports: None BANANA CARRIER: reports: Other : reports: Chronic bladder infection HEENT: reports: None Psych: reports: Depression, ADD/ADHD Musculoskeletal: reports: Chronic back pain, Other Derm: reports: Other MRSA Hx?: No - Past Surgical History Ortho: reports: Spine surgery /BANANA CARRIER: reports: Hysterectomy - Family & Social History Family History Comment/Other: Unable to update this family history but below is the family history from her admission from last admission which was obtained from her niece, Latisha. The patient has been adopted by a stepfather and he is still alive in his 80s. Her father of bone cancer when she was a very little girl. Mom is and of heart disease but had lung cancer before she . 1 brother of the same bone cancer that his father of. 1 brother is alive but has A. fib. No sisters. No children. Living Situation: Alone Social History Notes: Unable to update the social history given her encepha lopathy but review of prior review of systems revealed that she is a smoker and does not have a history of alcohol abuse. She is a history of illicit drug use, probably LSD back in the 1970s. - Substance History Use: Uses substance without health or social issues: Tobacco - POLST Patient has POLST: No POLST Status: Full Code Meds/Allgy - Home Medications Home Medications: Ambulatory Orders Medication Instructions Recorded Confirmed Cholestyramine [Questran] 4 gm PO QPM 04/28/13 12/23/20 Baclofen 10 mg PO QID 07/18/19 12/23/20 Glucos Sul 2Kcl/MSM/Chond/C/Mn 1 cap PO DAILY 07/18/19 12/23/20 [Glucosamine Chondroitin Cap] Levothyroxine Sodium 50 mcg PO DAILY 07/18/19 12/23/20 Multivitamin/Iron/Folic Acid 1 ea ORAL DAILY 07/18/19 12/23/20 [Centrum Women Tablet] Methylphenidate HCl 40 mg PO DAILY 02/10/20 12/23/20 [Methylphenidate ER] levETIRAcetam [Roweepra] 500 mg PO BID 02/10/20 12/23/20 Acetaminophen [Tylenol] 650 mg PO Q4HR PRN 06/15/20 12/23/20 Oxymetazoline HCl [Afrin] 2 sprays WILLIE BID PRN bottle 06/15/20 12/23/20 Calcium Carbonate/Vitamin D3 1 each PO DAILY 12/09/20 12/23/20 [Calcium 500Mg-Vit D3 15Mcg Tab] [place]-3/Dha/Epa/Fish Oil [Fish Oil 1 cap PO DAILY 12/09/20 12/23/20 1,000 mg Softgel] Atorvastatin [Lipitor] 40 mg PO QPM #0 12/21/20 12/23/20 Clobetasol 0.05% Oint [Temovate 1 applic TOP BID 12/21/20 12/23/20 0.05% Oint] Clopidogrel [Plavix] 75 mg PO DAILY #0 12/21/20 12/23/20 Metoprolol Succinate [Toprol Xl] 25 mg PO BID #0 12/21/20 12/23/20 Nystatin [Nystop] 1 applic TOP BID bottle 12/21/20 12/23/20 - Allergies Allergies/Adverse Reactions: Allergies Allergy/AdvReac Type Severity Reaction Status Date / Time No Known Drug Allergies Allergy Verified 01/25/21 18:03 Review of Systems - All Other Systems All Other Systems: reports: Other (pt is confused and sleeping, could not obtain pt's ROS) Exam - Vital Signs Vital Signs: Vital Signs x48h Temp Pulse Resp BP Pulse Ox 02/11/21 12:34 74 18 152/76 H 98 02/11/21 11:00 65 14 148/120 H 100 02/11/21 10:30 65 31 H 128/83 H 97 02/11/21 09:57 37.2 C 81 18 140/93 H 98 - Physical Exam General Appearance: positive: No acute distress, Alert, Other (comfortable sleeping at bed) Eyes Bilateral: positive: Normal inspection, No lid inflammation ENT: positive: ENT inspection nml. negative: Purulent nasal drainage Neck: positive: Nml inspection, Thyroid nml. negative: Thyromegaly, Tracheal deviation Respiratory: positive: Chest non-tender, No respiratory distress, Other (with nurse at the bedside to assess pt). negative: Wheezes Cardiovascular: positive: Regular rate & rhythm, No murmur. negative: Tachycardia, Bradycardia, Systolic murmur Peripheral Pulses: positive: 2+ Abdomen: positive: Non-tender, Nml bowel sounds, No distention. negative: Tenderness Back: positive: Nml inspection Skin: positive: Color nml, Warm, Dry. negative: Cyanosis Extremities: positive: Non-tender, Nml appearance Neurologic/Psychiatric: positive: Sensation nml, Disoriented to person, Disoriented to place, Disoriented to time. negative: Sensory loss, Facial droop Conclusion/Plan - Problem List (1) AMS (altered mental status) Conclusion/Plan: Patient had a history of multiple times of admission for altered mental status, due to UTI or misuse of medications. This time, patient likely has UTI. CT of the head show stable. Her AMS is likely due to urinary tract infection. Patient had multiple drug resistance E. coli infection in the previous admission. We will order patient meropenem, And follow-up with UA culture and blood culture and sensitivity study. Qualifiers: Altered mental status type: coma Coma depth: Phan coma 13-15 Coma timing: at arrival to emergency department Qualified Code(s): R40.2412 - Scott coma scale score 13-15, at arrival to emergency department (2) UTI (urinary tract infection) Conclusion/Plan: Urinalysis show patient had a positive bacteria, positive nitrate, and positive WBC elevated. Patient has a history of multiple time of urinary tract infection. We will start with Meropenem because patient had previous multiple drug- resistance E. coli infection Qualifiers: Urinary tract infection type: acute cystitis Hematuria presence: without hematuria Qualified Code(s): N30.00 - Acute cystitis without hematuria (3) KJ (acute kidney injury) Conclusion/Plan: Patient creatinine is 1.3, increased from 2 months ago. it was 0.9. Clinically patient present dehydration. 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 (5) Multiple sclerosis Conclusion/Plan: Patient has a history of multiple sclerosis, Patient is hemodynamic stable, patient may follow-up with neurologist as outpatient (6) Hypothyroidism Conclusion/Plan: TSH is normal, we will resume patient home Synthroid (7) HTN (hypertension) Conclusion/Plan: Patient has a history of hypertension, we will resume patient home medication, Continue vital signs monitor - Lab Results Fish Bones: 02/11/21 14:24 02/11/21 10:52 Core Measures - Anticipated LOS I expect patient to be DC'd or transferred within 96 hours.: Yes - DVT/VTE - Prophylaxis VTE/DVT Device ordered at admit?: Yes VTE/DVT Prophylaxis med ordered at admit?: Yes
[2021-02-11] MEDS ORDERED: LORazepam 2 MG/ML VIAL IM STA (13:47)
[2021-02-11] MEDS ORDERED: MEROPENEM 1 GM in SODIUM CHLORIDE 0.9% MINIBAG 100 ML IV SCH (14:00)
[2021-02-11] MEDS ORDERED: SODIUM CHLORIDE 0.9% 1,000 ML IV SCH (14:00)
[2021-02-11 14:34] LABS: B. PARAPERTUSSIS- RESP PCR PAN NOT DETECTED; B. PERTUSSIS- RESP PCR PANEL NOT DETECTED; C. PNEUMONIAE- RESP PCR PANEL NOT DETECTED; CORONAVIRUS 229E-RESP PCR NOT DETECTED; CORONAVIRUS HKU1-RESP PCR NOT DETECTED; CORONAVIRUS NL63-RESP PCR NOT DETECTED; CORONAVIRUS OC43-RESP PCR NOT DETECTED; HUMAN METAPNEUMOVIRUS NOT DETECTED; INFLUENZA A- RESP PCR PANEL NOT DETECTED; INFLUENZA B - RESP PCR PANEL NOT DETECTED; M. PNEUMONIAE- RESP PCR PANEL NOT DETECTED; PARAINFLUENZA VIRUS 1 NOT DETECTED; PARAINFLUENZA VIRUS 2 NOT DETECTED; PARAINFLUENZA VIRUS 3 NOT DETECTED; PARAINFLUENZA VIRUS 4 NOT DETECTED; RHINOVIRUS/ENTEROVIRUS NOT DETECTED; RSV- RESP PCR PANEL NOT DETECTED; SARS-CoV-2 -RESP PCR PANEL NOT DETECTED
[2021-02-11 14:37] LABS: BASOPHILS # (AUTO) 0.1 10^3/uL (0.0-0.1); EOSINOPHILS % (AUTO) 0.4 %; HCT - HEMATOCRIT 42.7 % (37.0-47.0); HGB - HEMOGLOBIN 13.6 g/dL (12.0-16.0); LYMPHOCYTES # (AUTO) 2.5 10^3/uL (1.5-3.5); LYMPHOCYTES % (AUTO) 27.9 %; MEAN CORPUSCULAR HEMOGLOBIN 30.2 pg (27.0-31.0); MEAN CORPUSCULAR HGB CONC 31.9 g/dL (32.0-36.0); MEAN CORPUSCULAR VOLUME 94.7 fL (81.0-99.0); MEAN PLATELET VOLUME 11.7 fL (7.9-10.8); MONOCYTES # (AUTO) 0.7 10^3/uL (0.0-1.0); MONOCYTES % (AUTO) 7.7 %; NEUTROPHILS # (AUTO) 5.6 10^3/uL (1.5-6.6); NEUTROPHILS % (AUTO) 62.9 %; PLT - PLATELET COUNT 254 10^3/uL (130-450); RED BLOOD COUNT 4.51 10^6/uL (4.20-5.40); RED CELL DISTRIBUTION WIDTH 14.4 % (12.0-15.0); WHITE BLOOD COUNT 8.9 x10^3/uL (4.8-10.8)
[2021-02-11 14:37] LABS: VBG BASE EXCESS 1.2 mmol/L (-2 - +2); VBG HCO3 26.3 mmol/L (23-28); VBG OXYGEN SATURATION 91.7 % (60-80); VBG PCO2 43.4 mmHg (41-51); VBG PH 7.4 (7.31-7.41); VBG PO2 57.1 mmHg (25-47); VBG TOTAL CO2 27.6 mmol/L (24-29)
[2021-02-11] MEDS: SODIUM CHLORIDE 0.9% 1,000 ML IV SCH (15:52)
[2021-02-11] MEDS: MEROPENEM 1 GM in SODIUM CHLORIDE 0.9% MINIBAG 100 ML IV SCH (15:53)
[2021-02-11] MEDS: SODIUM CHLORIDE FLUSH 0.9% 10 ML SYRINGE IVP SCH (16:33)
[2021-02-11] MEDS ORDERED: SODIUM CHLORIDE FLUSH 0.9% 10 ML SYRINGE IVP SCH (17:00)
[2021-02-11] MEDS ORDERED: levETIRAcetam 100 MG/ML 473ML BOTTLE PO SCH (21:00)
[2021-02-11] MEDS ORDERED: ATORVASTATIN 40 MG TABLET PO SCH (21:00)
[2021-02-11] MEDS ORDERED: METOPROLOL SUCCINATE 25 MG TABLET PO SCH ×2 (21:00)
[2021-02-11] MEDS: ATORVASTATIN 40 MG TABLET PO SCH (21:13)
[2021-02-11] MEDS: levETIRAcetam 250 MG TABLET PO SCH (21:13)
[2021-02-12] MEDS: SODIUM CHLORIDE FLUSH 0.9% 10 ML SYRINGE IVP SCH ×3 (00:57→16:25)
[2021-02-12] MEDS: SODIUM CHLORIDE 0.9% 1,000 ML IV SCH ×3 (01:54→22:40)
[2021-02-12] MEDS: MEROPENEM 1 GM in SODIUM CHLORIDE 0.9% MINIBAG 100 ML IV SCH ×3 (03:39→19:03)
[2021-02-12] MEDS: LEVOTHYROXINE 25 MCG TABLET PO SCH (06:32)
[2021-02-12 06:33] LABS: BASOPHILS # (AUTO) 0.1 10^3/uL (0.0-0.1); BASOPHILS % (AUTO) 1.3 %; EOSINOPHILS # (AUTO) 0.4 10^3/uL (0.0-0.7); EOSINOPHILS % (AUTO) 5.3 %; HCT - HEMATOCRIT 43.4 % (37.0-47.0); HGB - HEMOGLOBIN 13.7 g/dL (12.0-16.0); LYMPHOCYTES # (AUTO) 2.4 10^3/uL (1.5-3.5); LYMPHOCYTES % (AUTO) 30.6 %; MEAN CORPUSCULAR HEMOGLOBIN 29.9 pg (27.0-31.0); MEAN CORPUSCULAR HGB CONC 31.6 g/dL (32.0-36.0); MEAN CORPUSCULAR VOLUME 94.8 fL (81.0-99.0); MEAN PLATELET VOLUME 10.7 fL (7.9-10.8); MONOCYTES # (AUTO) 0.8 10^3/uL (0.0-1.0); MONOCYTES % (AUTO) 10.4 %; NEUTROPHILS # (AUTO) 4.1 10^3/uL (1.5-6.6); NEUTROPHILS % (AUTO) 52.1 %; PLT - PLATELET COUNT 279 10^3/uL (130-450); RED BLOOD COUNT 4.58 10^6/uL (4.20-5.40); RED CELL DISTRIBUTION WIDTH 13.4 % (12.0-15.0); WHITE BLOOD COUNT 7.9 x10^3/uL (4.8-10.8)
[2021-02-12 06:40] LABS: CALCIUM 9.1 mg/dL (8.5-10.3); CREATININE 0.8 mg/dL (0.4-1.0); POTASSIUM 2.9 mmol/L (3.5-5.0)
[2021-02-12] MEDS ORDERED: LEVOTHYROXINE 25 MCG TABLET PO SCH (07:00)
[2021-02-12] MEDS: POTASSIUM CHLOR 10 MEQ/100 ML 10 MEQ/100 ML BAG IV SCH ×4 (07:25→14:12)
[2021-02-12] MEDS ORDERED: POTASSIUM CHLORIDE 20 MEQ/15 ML UDC PO ONE (08:00)
[2021-02-12] MEDS: ENOXAPARIN 40 MG/0.4 ML SYRINGE SUBQ SCH (08:04)
[2021-02-12] MEDS: levETIRAcetam 250 MG TABLET PO SCH ×2 (08:04→20:36)
[2021-02-12] MEDS: CLOPIDOGREL 75 MG TABLET PO SCH (08:04)
[2021-02-12] MEDS: ACETAMINOPHEN 325 MG TABLET PO PRN ×3 (08:04→16:23)
[2021-02-12] MEDS ORDERED: CLOPIDOGREL 75 MG TABLET PO SCH (09:00)
[2021-02-12] MEDS ORDERED: ENOXAPARIN 40 MG/0.4 ML SYRINGE SUBQ SCH (09:00)
--- NOTE | 2021-02-12 09:30 | PROVIDER PROGRESS NOTE ---
Assessment/Plan - Problem List (1) Acute encephalopathy Assessment/Plan: p/w confusion, decreased mentation, it seems it's resolved with ivf, abx, pt is returned to baseline. likely Metabolic due to UTI. (2) UTI (urinary tract infection) Qualifiers: Urinary tract infection type: acute cystitis Hematuria presence: without hematuria Qualified Code(s): N30.00 - Acute cystitis without hematuria Assessment/Plan: recurrent hx of UTI, with ESBL Klebsiella in , also E.coli, most recently on UCX-MDR E.coli but not ESBL, pt was started on Meropenem, clinically improving, -continue meropenem for now, consider fosfomycin q3d on d/c, awaits final UCX,BCX, if available then likely dc to home (3) KJ (acute kidney injury) Assessment/Plan: likely prerenal, resolved with IVF (4) Hx of seizure disorder Conclusion/Plan: Patient has a history of seizure disorder, we will resume patient home medication Keppra, we will check serum Keppra concentration, And seizure precaution. (5) Multiple sclerosis Conclusion/Plan: Patient has a history of multiple sclerosis, Patient is hemodynamic stable, patient may follow-up with neurologist as outpatient (6) Hypothyroidism Conclusion/Plan: TSH is normal, we will resume patient home Synthroid (7) HTN (hypertension) Conclusion/Plan: Patient has a history of hypertension, we will resume patient home medication, Continue vital signs monitor - Current Meds Current Meds: Current Medications Generic Name Dose Route Start Last Admin Trade Name Freq PRN Reason Stop Dose Admin Acetaminophen 650 mg 02/11/21 15:12 02/12/21 08:04 Acetaminophen 325 Mg Tablet PO 650 mg Q4HR PRN Administration Pain 1 to 4 Atorvastatin Calcium 40 mg 02/11/21 21:00 02/11/21 21:13 Atorvastatin 40 Mg Tablet PO 40 mg QPM JIN Administration Clopidogrel Bisulfate 75 mg 02/12/21 09:00 02/12/21 08:04 Clopidogrel 75 Mg Tablet PO 75 mg DAILY JIN Administration Enoxaparin Sodium 40 mg 02/12/21 09:00 02/12/21 08:04 Enoxaparin 40 Mg/0.4 Ml Syringe SUBQ 40 mg DAILY JIN Administration Sodium Chloride 1,000 mls @ 100 mls/hr 02/11/21 15:00 02/12/21 04:21 Normal Saline 0.9% IV 100 mls/hr .Q10H JIN Infusion Potassium Chloride 10 meq in 100 mls @ 100 mls/hr 02/12/21 07:00 02/12/21 09:08 Potassium Chloride IV 02/12/21 10:59 100 mls/hr Q1H JIN Administration Levetiracetam 500 mg 02/11/21 21:00 02/12/21 08:04 Levetiracetam 250 Mg Tablet PO 500 mg BID JIN Administration Levothyroxine Sodium 50 mcg 02/12/21 07:00 02/12/21 06:32 Levothyroxine 25 Mcg Tablet PO 50 mcg QDAC JIN Administration Sodium Chloride 10 ml 02/11/21 17:00 02/12/21 07:48 Sodium Chloride Flush 0.9% 10 Ml Syringe IVP Not Given 0100,0900,1700 JIN - Lab Result Fish Bone Diagrams: 02/12/21 06:20 02/12/21 06:20 Subjective - Subjective Patient Reports: Other (pt was alert and oriented, denied n,v, tolerating puree diet this morning, c/o mild suprapubic pain.) Objective Vital Signs: Vital Signs - 24 hr 02/11/21 02/11/21 02/11/21 09:57 10:30 11:00 Temperature 37.2 C Heart Rate 81 65 65 Heart Rate [ Brachial] Heart Rate [ Monitoring electrodes] Respiratory 18 31 H 14 Rate Blood Pressure 140/93 H 128/83 H 148/120 H Blood Pressure [Right Brachial artery] O2 Saturation 98 97 100 02/11/21 02/11/21 02/11/21 12:34 13:41 14:32 Temperature Heart Rate 74 69 73 Heart Rate [ Brachial] Heart Rate [ Monitoring electrodes] Respiratory 18 10 L 17 Rate Blood Pressure 152/76 H 131/76 H 106/70 Blood Pressure [Right Brachial artery] O2 Saturation 98 98 97 02/11/21 02/11/21 02/12/21 15:37 23:36 09:02 Temperature 36.3 C L 36.8 C 36.6 C Heart Rate Heart Rate [ 70 89 Brachial] Heart Rate [ 73 Monitoring electrodes] Respiratory 14 20 20 Rate Blood Pressure Blood Pressure 95/69 120/65 119/57 L [Right Brachial artery] O2 Saturation 96 99 96 Oxygen O2 Source [With Activity] Room air O2 Source [Without Activity] Room air O2 Source Room air I&O (Last 24 Hrs): Intake and Output Totals x24h 02/10/21 02/11/21 02/12/21 23:59 23:59 23:59 Intake Total 1200 1630 Output Total 300 100 Balance 900 1530 General: Alert, Cooperative, No acute distress HEENT: Atraumatic, PERRLA, EOMI Neck: Supple, No JVD, No thyromegaly, +2 carotid pulse wo bruit, No LAD Lymphatic: no adenopathy Neuro: Alert, CN 2-12 Grossly Intact, Oriented Times 3 Cardiovascular: Regular rate, Normal S1, Normal S2, No murmurs Respiratory: Chest non-tender, No respiratory distress, Breath sounds nml Abdomen: Normal bowel sounds, Soft, No tenderness, No hepatospenomegaly, No masses Genitourinary: Normal External, No Bleeding, No Discharge, No Tenderness, No Adnexal Mass Rectal: Non-Tender Extremities: No clubbing, No cyanosis, No edema, Normal pulses, No tenderness/swelling Skin: No rashes, No breakdown, No significant lesion - Results Results: Laboratory Results WBC 7.9 x10^3/uL (4.8-10.8) 02/12/21 06:20 RBC 4.58 10^6/uL (4.20-5.40) 02/12/21 06:20 Hgb 13.7 g/dL (12.0-16.0) 02/12/21 06:20 Hct 43.4 % (37.0-47.0) 02/12/21 06:20 MCV 94.8 fL (81.0-99.0) 02/12/21 06:20 MCH 29.9 pg (27.0-31.0) 02/12/21 06:20 MCHC 31.6 g/dL (32.0-36.0) L 02/12/21 06:20 RDW 13.4 % (12.0-15.0) 02/12/21 06:20 Plt Count 279 10^3/uL (130-450) 02/12/21 06:20 MPV 10.7 fL (7.9-10.8) 02/12/21 06:20 Neut # (Auto) 4.1 10^3/uL (1.5-6.6) 02/12/21 06:20 Lymph # (Auto) 2.4 10^3/uL (1.5-3.5) 02/12/21 06:20 [place] # (Auto) 0.8 10^3/uL (0.0-1.0) 02/12/21 06:20 Eos # (Auto) 0.4 10^3/uL (0.0-0.7) 02/12/21 06:20 Baso # (Auto) 0.1 10^3/uL (0.0-0.1) 02/12/21 06:20 Absolute Nucleated RBC 0.00 x10^3/uL 02/12/21 06:20 Nucleated RBC % 0.0 /100WBC 02/12/21 06:20 VBG pH 7.400 (7.31-7.41) 02/11/21 14:29 VBG pCO2 43.4 mmHg (41-51) 02/11/21 14:29 VBG pO2 57.1 mmHg (25-47) H 02/11/21 14:29 VBG HCO3 26.3 mmol/L (23-28) 02/11/21 14:29 VBG Total CO2 27.6 mmol/L (24-29) 02/11/21 14:29 VBG O2 Saturation 91.7 % (60-80) H 02/11/21 14:29 VBG Base Excess 1.2 mmol/L (-2 - +2) 02/11/21 14:29 Sodium 147 mmol/L (135-145) H 02/12/21 06:20 Potassium 2.9 mmol/L (3.5-5.0) L 02/12/21 06:20 Chloride 107 mmol/L (101-111) 02/12/21 06:20 Carbon Dioxide 27 mmol/L (21-32) 02/12/21 06:20 Anion Gap 13.0 (6-13) 02/12/21 06:20 BUN 17 mg/dL (6-20) 02/12/21 06:20 Creatinine 0.8 mg/dL (0.4-1.0) 02/12/21 06:20 Estimated GFR (MDRD) 72 (>89) L 02/12/21 06:20 Glucose 85 mg/dL (70-100) 02/12/21 06:20 Lactic Acid 1.7 mmol/L (0.5-2.2) 02/11/21 14:29 Calcium 9.1 mg/dL (8.5-10.3) 02/12/21 06:20 Magnesium 2.1 mg/dL (1.7-2.8) 02/12/21 06:20 Total Bilirubin 0.5 mg/dL (0.2-1.0) 02/11/21 10:52 AST 21 IU/L (10-42) 02/11/21 10:52 ALT 17 IU/L (10-60) 02/11/21 10:52 Alkaline Phosphatase 105 IU/L (42-121) 02/11/21 10:52 Total Protein 8.2 g/dL (6.7-8.2) 02/11/21 10:52 Albumin 4.1 g/dL (3.2-5.5) 02/11/21 10:52 Globulin 4.1 g/dL (2.1-4.2) 02/11/21 10:52 Albumin/Globulin Ratio 1.0 (1.0-2.2) 02/11/21 10:52 Lipase 55 U/L (22-51) H 02/11/21 10:52 TSH 1.19 uIU/mL (0.34-5.60) 02/11/21 10:52 Urine Color YELLOW 02/11/21 10:15 Urine Clarity HAZY (CLEAR) 02/11/21 10:15 Urine pH 6.0 PH (5.0-7.5) 02/11/21 10:15 Ur Specific [place] 1.020 (1.002-1.030) 02/11/21 10:15 Urine Protein NEGATIVE mg/dL (NEGATIVE) 02/11/21 10:15 Urine Glucose (UA) NEGATIVE mg/dL (NEGATIVE) 02/11/21 10:15 Urine Ketones NEGATIVE mg/dL (NEGATIVE) 02/11/21 10:15 Urine Occult Blood NEGATIVE (NEGATIVE) 02/11/21 10:15 Urine Nitrite POSITIVE (NEGATIVE) H 02/11/21 10:15 Urine Bilirubin NEGATIVE (NEGATIVE) 02/11/21 10:15 Urine Urobilinogen 0.2 (NORMAL) E.U./dL (NORMAL) 02/11/21 10:15 Ur Leukocyte Esterase NEGATIVE (NEGATIVE) 02/11/21 10:15 Urine RBC 0-5 /HPF (0-5) 02/11/21 10:15 Urine WBC 6-10 /HPF (0-5) H 02/11/21 10:15 Ur Squamous Epith Cells FEW Squamous (<= Few) 02/11/21 10:15 Urine Bacteria Moderate /HPF (None Seen) H 02/11/21 10:15 Urine Casts 3-5 Hyaline Casts /LPF 02/11/21 10:15 Ur Microscopic Review INDICATED 02/11/21 10:15 Urine Culture Comments INDICATED 02/11/21 10:15 Nasal Adenovirus (PCR) NOT DETECTED 02/11/21 13:18 Nasal B. parapertussis DNA (PCR) NOT DETECTED 02/11/21 13:18 Nasal Coronavir 229E PCR NOT DETECTED 02/11/21 13:18 Nasal Coronavir HKU1 PCR NOT DETECTED 02/11/21 13:18 Nasal Coronavir NL63 PCR NOT DETECTED 02/11/21 13:18 Nasal Coronavir OC43 PCR NOT DETECTED 02/11/21 13:18 Nasal Enterovir/Rhinovir PCR NOT DETECTED 02/11/21 13:18 Nasal Influenza B PCR NOT DETECTED 02/11/21 13:18 Nasal Influenza A PCR NOT DETECTED 02/11/21 13:18 Nasal Parainfluen 1 PCR NOT DETECTED 02/11/21 13:18 Nasal Parainfluen 2 PCR NOT DETECTED 02/11/21 13:18 Nasal Parainfluen 3 PCR NOT DETECTED 02/11/21 13:18 Nasal Parainfluen 4 PCR NOT DETECTED 02/11/21 13:18 Nasal RSV (PCR) NOT DETECTED 02/11/21 13:18 Nasal B.pertussis DNA PCR NOT DETECTED 02/11/21 13:18 Nasal C.pneumoniae (PCR) NOT DETECTED 02/11/21 13:18 Jaya Human Metapneumo PCR NOT DETECTED 02/11/21 13:18 Nasal M.pneumoniae (PCR) NOT DETECTED 02/11/21 13:18 Nasal SARS-CoV-2 (PCR) NOT DETECTED 02/11/21 13:18 Salicylates < 6.0 mg/dL 02/11/21 10:52 Urine Opiates Screen NEGATIVE (NEGATIVE) 02/11/21 10:15 Ur Oxycodone Screen NEGATIVE (NEGATIVE) 02/11/21 10:15 Urine Methadone Screen NEGATIVE (NEGATIVE) 02/11/21 10:15 Ur Propoxyphene Screen NEGATIVE (NEGATIVE) 02/11/21 10:15 Acetaminophen < 10 ug/mL (10-30) L 02/11/21 10:52 Ur Barbiturates Screen NEGATIVE (NEGATIVE) 02/11/21 10:15 Ur Tricyclics Screen NEGATIVE (NEGATIVE) 02/11/21 10:15 Ur Phencyclidine Scrn NEGATIVE (NEGATIVE) 02/11/21 10:15 Ur Amphetamine Screen NEGATIVE (NEGATIVE) 02/11/21 10:15 U Methamphetamines Scrn NEGATIVE (NEGATIVE) 02/11/21 10:15 U Benzodiazepines Scrn NEGATIVE (NEGATIVE) 02/11/21 10:15 Urine Cocaine Screen NEGATIVE (NEGATIVE) 02/11/21 10:15 U Cannabinoids Screen NEGATIVE (NEGATIVE) 02/11/21 10:15 Ethyl Alcohol < 5.0 mg/dL 02/11/21 10:52 Serum Ketones NEGATIVE (NEGATIVE) 02/11/21 10:52
[2021-02-12] MEDS: HYDROcod/ACETAM 5/325 MG TABLET PO PRN ×2 (14:51→19:03)
[2021-02-12] MEDS: ATORVASTATIN 40 MG TABLET PO SCH (20:37)
[2021-02-13] MEDS: HYDROcod/ACETAM 5/325 MG TABLET PO PRN ×6 (00:07→20:04)
[2021-02-13] MEDS: SODIUM CHLORIDE FLUSH 0.9% 10 ML SYRINGE IVP SCH ×3 (00:32→15:49)
[2021-02-13] MEDS: MEROPENEM 1 GM in SODIUM CHLORIDE 0.9% MINIBAG 100 ML IV SCH ×3 (02:49→19:06)
[2021-02-13 04:37] LABS: BASOPHILS # (AUTO) 0.1 10^3/uL (0.0-0.1); BASOPHILS % (AUTO) 1.3 %; EOSINOPHILS # (AUTO) 0.6 10^3/uL (0.0-0.7); EOSINOPHILS % (AUTO) 7.9 %; HCT - HEMATOCRIT 36.1 % (37.0-47.0); HGB - HEMOGLOBIN 11.3 g/dL (12.0-16.0); LYMPHOCYTES # (AUTO) 3.1 10^3/uL (1.5-3.5); LYMPHOCYTES % (AUTO) 40.9 %; MEAN CORPUSCULAR HEMOGLOBIN 29.7 pg (27.0-31.0); MEAN CORPUSCULAR HGB CONC 31.3 g/dL (32.0-36.0); MEAN PLATELET VOLUME 10.4 fL (7.9-10.8); MONOCYTES # (AUTO) 0.8 10^3/uL (0.0-1.0); MONOCYTES % (AUTO) 10.6 %; PLT - PLATELET COUNT 258 10^3/uL (130-450); RED CELL DISTRIBUTION WIDTH 13.8 % (12.0-15.0); WHITE BLOOD COUNT 7.6 x10^3/uL (4.8-10.8)
[2021-02-13 04:49] LABS: CALCIUM 8.8 mg/dL (8.5-10.3); CREATININE 0.9 mg/dL (0.4-1.0); POTASSIUM 3.7 mmol/L (3.5-5.0)
[2021-02-13] MEDS: LEVOTHYROXINE 25 MCG TABLET PO SCH (06:44)
[2021-02-13] MEDS: levETIRAcetam 250 MG TABLET PO SCH ×2 (08:45→21:05)
[2021-02-13] MEDS: CLOPIDOGREL 75 MG TABLET PO SCH (08:45)
[2021-02-13] MEDS: ENOXAPARIN 40 MG/0.4 ML SYRINGE SUBQ SCH (08:46)
[2021-02-13] MEDS: SODIUM CHLORIDE 0.9% 1,000 ML IV SCH ×2 (09:14→21:05)
[2021-02-13] MEDS ORDERED: CARBOXYMETHYLCELLULOSE OPHTH DROPS EACHEYE PRN (10:49)
--- NOTE | 2021-02-13 11:25 | PHARMACY PROGRESS NOTE ---
- Best Possible Medication History Admit Date and Time: 02/11/21 1313 Processed by: Pharmacy Medication History completed: Yes Patient Interview: Pt unable to participate Secondary Source(s): Physician records, Pharmacy records, Insurance records, Previous admit records As the person ultimately responsible for medication therapy, providers are able to order a medication from an existing home medication list in [facility] via the "Reconcile Routine" prior to Confirmation of that medication by manager client support. Such practice is discouraged except when the physician, in their clinical judgment, deems that a medical need exists for a medication without regard to previous use.
[2021-02-13] MEDS: BACLOFEN 10 MG TABLET PO SCH ×2 (17:33→21:05)
[2021-02-13] MEDS: ATORVASTATIN 40 MG TABLET PO SCH (21:05)
[2021-02-14] MEDS: HYDROcod/ACETAM 5/325 MG TABLET PO PRN ×4 (00:12→12:41)
[2021-02-14] MEDS: SODIUM CHLORIDE FLUSH 0.9% 10 ML SYRINGE IVP SCH ×2 (00:13→08:17)
[2021-02-14] MEDS: MEROPENEM 1 GM in SODIUM CHLORIDE 0.9% MINIBAG 100 ML IV SCH ×2 (03:04→12:39)
[2021-02-14 05:47] LABS: BASOPHILS # (AUTO) 0.1 10^3/uL (0.0-0.1); BASOPHILS % (AUTO) 1.2 %; EOSINOPHILS # (AUTO) 0.3 10^3/uL (0.0-0.7); HCT - HEMATOCRIT 36.4 % (37.0-47.0); HGB - HEMOGLOBIN 11.6 g/dL (12.0-16.0); MEAN CORPUSCULAR HEMOGLOBIN 30.5 pg (27.0-31.0); MEAN CORPUSCULAR HGB CONC 31.9 g/dL (32.0-36.0); MEAN CORPUSCULAR VOLUME 95.8 fL (81.0-99.0); MEAN PLATELET VOLUME 10.7 fL (7.9-10.8); MONOCYTES # (AUTO) 0.6 10^3/uL (0.0-1.0); MONOCYTES % (AUTO) 6.8 %; NEUTROPHILS # (AUTO) 4.2 10^3/uL (1.5-6.6); NEUTROPHILS % (AUTO) 50.8 %; PLT - PLATELET COUNT 263 10^3/uL (130-450); RED CELL DISTRIBUTION WIDTH 13.6 % (12.0-15.0); WHITE BLOOD COUNT 8.2 x10^3/uL (4.8-10.8)
[2021-02-14 05:59] LABS: CALCIUM 8.7 mg/dL (8.5-10.3); CREATININE 0.8 mg/dL (0.4-1.0); POTASSIUM 3.4 mmol/L (3.5-5.0)
[2021-02-14] MEDS: BACLOFEN 10 MG TABLET PO SCH (06:11)
[2021-02-14] MEDS: LEVOTHYROXINE 25 MCG TABLET PO SCH (06:11)
[2021-02-14] MEDS: ENOXAPARIN 40 MG/0.4 ML SYRINGE SUBQ SCH (08:16)
[2021-02-14] MEDS: levETIRAcetam 250 MG TABLET PO SCH (08:16)
[2021-02-14] MEDS: CLOPIDOGREL 75 MG TABLET PO SCH (08:16)
--- NOTE | 2021-02-14 10:34 | PROVIDER PROGRESS NOTE ---
Progress Note February 13, 2021 6 PM Patient just did not feel well enough to leave today. She has multiple sclerosis and has weakness even when she is well. When she is sick like this she almost cannot get out of bed. This morning she was unable to get out of bed on her own. Baseline status is to ambulate on her own. Throughout the day she has been afebrile. She denies cough, congestion, abdominal pain. Urinary incontinence, which is a band of her existence, is a little bit better today than it usually is. She is eating her food and asking for x-rays. Temperature is 36.9. Heart rate 80. Blood pressure 137/82. Respirations 20. 99% on room air. 5 feet 4 inches tall 68 kg Short, stocky, moderately overweight elderly female who looks older than stated age. I have met her before, and she can be very talkative. Today affect is muted, speech is slightly slower than normal. She even admits that she is slower in mentation and she usually is but cannot say why. Neck is supple. Lungs are clear to auscultation percussion. Abdomen is soft, obese, nontender with normal bowel sounds Extremities are with trace edema of her ankles and feet Alert and oriented to person place and time. Moving all extremities voluntarily and at my request. No tremors. Needs 2 person assist to sit up in bed and to stand. BMP is normal this morning. Fasting glucose 86. CBC has a white cell count of 7.6. Hemoglobin 11.3. Hematocrit 36.1. Urine culture is negative for extended spectrum beta-lactamase. The only oral antibiotic she is sensitive to is nitrofurantoin. All other antibiotics that this bug is sensitive to is IV. Assessment/plan 1. Acute encephalopathy due to confusion. Has improved and almost resolved by today. But even by my estimation of what she is usually like, she still has mild psychomotor slowing comparison to her baseline. Will discharge tomorrow morning due to incompletely resolved encephalopathy. 2. UTI with E. coli. Has been on meropenem. It is not ESBL. Discharge tomorrow morning with nitrofurantoin. 3. Acute kidney injury resolved 4. History of seizure disorder. She is actually had seizures in the hospital in the past. Medications resumed.
--- NOTE | 2021-02-14 10:45 | Discharge Plan ---
Discharge Plan Problem Reviewed?: Yes Disposition: Home, Self Care Condition: Good Prescriptions: Nitrofurantoin [Macrobid] 100 mg PO BID #8 cap Diet: Regular Activity Restrictions: Activity as Tolerated Shower Restrictions: No Driving Restrictions: Yes (no driving) Assistance Devices: [facility] Concerns: You presented to our emergency room with another episode of confusion. We think you had another urinary tract infection. The urine grew out something called E. coli. Because you have had many, many urinary tract infections in the past, the bacteria in your bladder are now getting resistant to antibiotics. We were able to give you meropenem in the hospital. At home we will continue therapy with Macrobid 100 mg capsule twice a day until you finish the bottle of antibiotics. Plan of Treatment: To complete antibiotic therapy for E. coli that is not ESBL Care Goals: To remain safely at home without illness or return to the hospital Assessment: Patient says she will follow through to see her primary care provider in follow- up No Smoking: If you smoke, Please STOP! Call for help. Follow-up with: Yenny Markham ARNP [Primary Care Provider] -
[2021-02-14] MEDS: SODIUM CHLORIDE 0.9% 1,000 ML IV SCH ×2 (11:56→12:40)
[2021-02-14 13:39] VITALS: BP 138/69
--- NOTE | 2021-02-20 22:37 | DISCHARGE SUMMARY ---
"Discharge Summary Admit Date: 02/11/21 Discharge Date: 02/14/21 Discharging Provider: Kassie Marquez MD Primary Care Provider: MACKENZIE Lopez Code Status: Attempt Resuscitation Condition at Discharge: Good Discharge Disposition: 01 Home, Self Care - DIAGNOSES Discharge Diagnoses with Status of Each Condition: 1. Metabolic encephalopathy 2. UTI with E. coli 3. Multiple sclerosis 4. Acute on chronic kidney injury 5. History of seizure disorder 7. Hypothyroidism 8. Hypertension - HPI History of Present Illness: This is a 65-yrs old female With a past medical history significant noted for multiple sclerosis, seizure disorder, dehydration, chronic bladder infections with multiple admissions, AMS, chronic back pain, chronic opioid dependency, depression and hypothyroidism who was brought to ER our hospital by EMS for metabolic encephalopathy. EMS was called and neighbors report pt has been increasingly confused over last several days. Patient is alert And comfortable sleeping in the bed. Patient had ativan in the ER. pt is unable to follow commands or answer questions now. pt has hx of encephalopathy, Sometimes due to UTIs and Sometimes due to incorrect use of her medications. Pt usually presents after being found confused by neighbors or family and is brought to the hospital. CT of head was stable compared to prior. Chest x-ray is within normal limits. Routine laboratory tests that show increased creatinine at 1.3. CBC and lactic acid are pending. UA Analysis show Positive nitrate, bacteria, and elevated WBC. In the ER, patient is afebrile, patient is hemodynamic stable now. I could not discuss goals of care with the patient due to her encephalopathy and therefore she will be made a full code now, would adjust as pt or family request differently. - Past Medical History Cardiovascular: reports: Hypertension, Coronary artery disease, [place] Respiratory: reports: None Neuro: reports: Multiple sclerosis Endocrine/Autoimmune: reports: Other GI: reports: None PHYSICIAN INDUSTRIAL: reports: Other : reports: Chronic bladder infection HEENT: reports: None Psych: reports: Depression, ADD/ADHD Musculoskeletal: reports: Chronic back pain, Other Derm: reports: Other MRSA Hx?: No - Past Surgical History Ortho: reports: Spine surgery /PHYSICIAN INDUSTRIAL: reports: Hysterectomy - CONSULTS | PROCEDURES Procedures: 1. Head CT with limited intracranial study. No acute intracranial abnormality. 3. Chest x-ray with probably normal chest within normal limits 3. Urine culture with E. coli 4. Blood culture negative after 5 days - HOSPITAL COURSE Hospital Course: The patient feels that she developed confusion more than usual because she has multiple sclerosis. She was started on IV antibiotics, hydration. It took her close to 2 days for confusion to resolve and for her to feel safe to return to home. Her other medical problems of seizure disorder, hypothyroidism and hypertension were addressed by resuming her usual medications. Creatinine on admission was 1.3 and came down to baseline and normal of 0.8 after hydrati on.Home on Macrobid to complete therapy for UTI. She was asked to make sure she finished all of her antibiotics. She is starting developed significant resistance. She is discharged in stable condition. Temperature is 36.9. Heart rate is 80. Blood pressure 138/69. Respirations 18. 96% on room air. She is a 5 foot 4 inch female who weighs 68 kg. She ambulated in the room with a wheeled walker. Was able to get to the bed or the bathroom by the time of discharge. Lungs were clear. Diminished at the bases. Regular rate and rhythm. Abdomen soft nontender. She had mild generalized weakness. Occasionally incontinent of urine. No edema present. Since she was ambulating in her room without assist, it was felt that she did not need physical therapy evaluation. - ALLERGIES Allergies/Adverse Reactions: Allergies Allergy/AdvReac Type Severity Reaction Status Date / Time No Known Drug Allergies Allergy Verified 01/25/21 18:03 - MEDICATIONS Home Medications: Ambulatory Orders Medication Instructions Recorded Confirmed Cholestyramine [Questran] 4 gm PO QPM 04/28/13 02/13/21 Baclofen 10 mg PO QID 07/18/19 02/13/21 Glucos Sul 2Kcl/MSM/Chond/C/Mn 1 cap PO DAILY 07/18/19 02/13/21 [Glucosamine Chondroitin Cap] Levothyroxine Sodium 50 mcg PO DAILY 07/18/19 02/13/21 Multivitamin/Iron/Folic Acid 1 ea ORAL DAILY 07/18/19 02/13/21 [Centrum Women Tablet] Methylphenidate HCl 40 mg PO DAILY 02/10/20 02/13/21 [Methylphenidate ER] levETIRAcetam [Roweepra] 500 mg PO BID 02/10/20 02/13/21 Acetaminophen [Tylenol] 650 mg PO Q4HR PRN 06/15/20 02/13/21 Oxymetazoline HCl [Afrin] 2 sprays WILLIE BID PRN bottle 06/15/20 02/13/21 Calcium Carbonate/Vitamin D3 1 each PO DAILY 12/09/20 02/13/21 [Calcium 500Mg-Vit D3 15Mcg Tab] [place]-3/Dha/Epa/Fish Oil [Fish Oil 1 cap PO DAILY 12/09/20 02/13/21 1,000 mg Softgel] Atorvastatin [Lipitor] 40 mg PO QPM #0 12/21/20 02/13/21 Clobetasol 0.05% Oint [Temovate 1 applic TOP BID 12/21/20 02/13/21 0.05% Oint] Clopidogrel [Plavix] 75 mg PO DAILY #0 12/21/20 02/13/21 Metoprolol Succinate [Toprol Xl] 25 mg PO BID #0 12/21/20 02/13/21 Nystatin [Nystop] 1 applic TOP BID bottle 12/21/20 02/13/21 Furosemide [Lasix] 20 mg PO DAILY 02/12/21 02/13/21 Potassium Chloride [Klor-Con 10] 10 meq PO DAILY 02/12/21 02/13/21 Cetirizine [ZyrTEC] 10 mg PO DAILY 02/13/21 02/13/21 Cholecalciferol [Vitamin D3] 25 mcg PO DAILY 02/13/21 02/13/21 Nitrofurantoin [Macrobid] 100 mg PO BID #8 cap 02/14/21 Albuterol Sulf [Ventolin Hfa 2 - 3 puffs INH Q4HR 10 Days #1 02/16/21 Inhaler] inhaler dexAMETHasone [Decadron] 4 mg PO DAILY #5 tablet 02/16/21 - LABS Result Diagrams: 02/14/21 05:12 02/14/21 05:12"
== END 2021-02-14 15:18 | disposition home or self-care (01) ==
LOC: EDUNIT# → ED 09:48 → MS2 13:19 → ED 14:56
PROVIDERS: ADMIT Nurse Practitioner Gerontology; ATTEND Specialist
DX: N30.00 Acute cystitis without hematuria (principal); B96.20 Unspecified Escherichia coli [E. coli] as the cause of diseases classified elsewhere; G93.41 Metabolic encephalopathy; G35 Multiple sclerosis; E86.0 Dehydration; R40.20 Unspecified coma; R40.2412 Glasgow coma scale score 13-15, at arrival to emergency department; N17.9 Acute kidney failure, unspecified; I12.9 Hypertensive chronic kidney disease with stage 1 through stage 4 chronic kidney disease, or unspecified chronic kidney disease; N18.9 Chronic kidney disease, unspecified; Z20.822 Contact with and (suspected) exposure to COVID-19; E03.9 Hypothyroidism, unspecified; F11.20 Opioid dependence, uncomplicated; F32.9 Major depressive disorder, single episode, unspecified; G40.909 Epilepsy, unspecified, not intractable, without status epilepticus; I25.10 Atherosclerotic heart disease of native coronary artery without angina pectoris; I25.2 Old myocardial infarction; M54.9 Dorsalgia, unspecified; G89.29 Other chronic pain; F17.200 Nicotine dependence, unspecified, uncomplicated
CPT/HCPCS: 36415; 70450; 71045; 80048; 80053; 80177; 80306; 80307; 81001; 82009; 82803; 83605; 83690; 83735; 84443; 85025; 87040; 87077; 87086; 87181; 87631; 93005; 96361; 96365; 96366; 96367; 96372; 96375; 99281; 99285; A9270; G0378; G0480; J1650; J2060; J2185; 0202U; 80320; 80329; 81003

== ENCOUNTER 2021-02-16 12:55 | Outpatient (CLI) | payer MEDICARE, MEDICAID | END 2021-02-16 12:56 | disposition critical access hospital (66) | LOC: EMS 12:55 | DX: R06.02 Shortness of breath (principal); R32 Unspecified urinary incontinence | CPT/HCPCS: A0425; A0427 ==

== ENCOUNTER 2021-02-16 13:16 | Emergency (ER) | payer MEDICARE, MEDICAID ==
--- NOTE | 2021-02-16 13:24 | ED Physician Documentation ---
PD HPI DYSPNEA - Stated complaint Stated Complaint: SOA - History obtained from History obtained from: Patient, EMS - History of Present Illness Timing - onset: Today, Yesterday Timing - onset during: Rest Timing - duration: Days (2) Timing - details: Gradual onset, Still present, Waxing and waning Inciting event(s): Other (states feeling of dyspnea and trouble breathing. Was just in hospital for AMS. Discharged 2 days ago.). No: Out of meds, URI Improved by: O2 (EMS reports sats 95% RA on their arrival and given oxygen and MDI.), Inhaler/neb (Medics gave MDI which patient says helped.) Worsened by: Exertion. No: Laying flat Associated symptoms: Cough, Wheezing. No: Fever, Chest pain / discomfort Recently seen: Emergency Dept, Admitted Review of Systems Constitutional: reports: Fatigue. denies: Fever, Chills Nose: denies: Rhinorrhea / runny nose, Congestion Throat: denies: Sore throat Cardiac: denies: Chest pain / pressure Respiratory: reports: Dyspnea, Cough, Wheezing GI: denies: Abdominal Pain, Nausea, Vomiting Musculoskeletal: reports: Extremity swelling (mild bilaterally) Neurologic: reports: Generalized weakness. denies: Focal weakness, Numbness, Near syncope PD PAST MEDICAL HISTORY - Past Medical History Cardiovascular: Hypertension, Coronary artery disease, MD Respiratory: None Neuro: Multiple sclerosis Endocrine/Autoimmune: Other GI: None HIV NURSE: Other : Chronic bladder infection HEENT: None Psych: Depression, ADD/ADHD Musculoskeletal: Chronic back pain, Other Derm: Other - Past Surgical History Past Surgical History: Yes Ortho: Spine surgery /HIV NURSE: Hysterectomy - Present Medications Home Medications: Ambulatory Orders Medication Instructions Recorded Confirmed Cholestyramine [Questran] 4 gm PO QPM 04/28/13 02/13/21 Baclofen 10 mg PO QID 07/18/19 02/13/21 Glucos Sul 2Kcl/MSM/Chond/C/Mn 1 cap PO DAILY 07/18/19 02/13/21 [Glucosamine Chondroitin Cap] Levothyroxine Sodium 50 mcg PO DAILY 07/18/19 02/13/21 Multivitamin/Iron/Folic Acid 1 ea ORAL DAILY 07/18/19 02/13/21 [Centrum Women Tablet] Methylphenidate HCl 40 mg PO DAILY 02/10/20 02/13/21 [Methylphenidate ER] levETIRAcetam [Roweepra] 500 mg PO BID 02/10/20 02/13/21 Acetaminophen [Tylenol] 650 mg PO Q4HR PRN 06/15/20 02/13/21 Oxymetazoline HCl [Afrin] 2 sprays WILLIE BID PRN bottle 06/15/20 02/13/21 Calcium Carbonate/Vitamin D3 1 each PO DAILY 12/09/20 02/13/21 [Calcium 500Mg-Vit D3 15Mcg Tab] Milner-3/Dha/Epa/Fish Oil [Fish Oil 1 cap PO DAILY 12/09/20 02/13/21 1,000 mg Softgel] Atorvastatin [Lipitor] 40 mg PO QPM #0 12/21/20 02/13/21 Clobetasol 0.05% Oint [Temovate 1 applic TOP BID 12/21/20 02/13/21 0.05% Oint] Clopidogrel [Plavix] 75 mg PO DAILY #0 12/21/20 02/13/21 Metoprolol Succinate [Toprol Xl] 25 mg PO BID #0 12/21/20 02/13/21 Nystatin [Nystop] 1 applic TOP BID bottle 12/21/20 02/13/21 Furosemide [Lasix] 20 mg PO DAILY 02/12/21 02/13/21 Potassium Chloride [Klor-Con 10] 10 meq PO DAILY 02/12/21 02/13/21 Cetirizine [ZyrTEC] 10 mg PO DAILY 02/13/21 02/13/21 Cholecalciferol [Vitamin D3] 25 mcg PO DAILY 02/13/21 02/13/21 Nitrofurantoin [Macrobid] 100 mg PO BID #8 cap 02/14/21 Albuterol Sulf [Ventolin Hfa 2 - 3 puffs INH Q4HR 10 Days #1 02/16/21 Inhaler] inhaler dexAMETHasone [Decadron] 4 mg PO DAILY #5 tablet 02/16/21 - Allergies Allergies/Adverse Reactions: Allergies Allergy/AdvReac Type Severity Reaction Status Date / Time No Known Drug Allergies Allergy Verified 01/25/21 18:03 - Social History Does the pt smoke?: Yes Smoking Status: Current every day smoker Does the pt drink ETOH?: No Does the pt have substance abuse?: Yes - Immunizations Immunizations are current?: No - POLST Patient has POLST: No POLST Status: Full Code PD ED PE NORMAL - Vitals Vital signs reviewed: Yes (arrives on oxygen with sats 98-100%) - General General: Alert and oriented X 3, No acute distress, Well developed/nourished - HEENT HEENT: Pharynx benign - Neck Neck: Supple, no meningeal sign, No adenopathy - Cardiac Cardiac: RRR, No murmur - Respiratory Respiratory: No: Clear bilaterally (no coarse sounds. bilateral exp wheezing noted. ) - Abdomen Abdomen: Soft, Non tender - Back Back: No CVA TTP - Derm Derm: Normal color, Warm and dry - Extremities Extremities: No tenderness to palpate, Normal ROM s pain, No calf tenderness / cord, Other (1+ edema in both lower legs/ankles. ) - Neuro Neuro: Alert and oriented X 3, No motor deficit, Normal speech Results - Vitals Vitals: Oxygen O2 Source [With Activity] Room air O2 Source [Without Activity] Room air O2 Source Room air Oxygen Flow Rate 4 - EKG (time done) 14:05 Rate: Rate (enter#) (82) Rhythm: NSR [place]: Normal Intervals: RBBB QRS: Normal Ischemia: Normal ST segments, Non specific changes. No: ST elevation c/w ischemia, ST depression Compare to prior EKG: Unchanged from prior EKG (dated 02/11/21) - Labs Labs: Laboratory Tests 02/16/21 02/16/21 02/16/21 15:04 15:04 15:04 WBC RBC Hgb Hct MCV MCH MCHC RDW Plt Count MPV Neut # (Auto) Lymph # (Auto) [place] # (Auto) Eos # (Auto) Baso # (Auto) Absolute Nucleated RBC Nucleated RBC % Sodium 140 Potassium 4.1 Chloride 97 L Carbon Dioxide 29 Anion Gap 14.0 H BUN 20 Creatinine 1.0 Estimated GFR (MDRD) 56 L Glucose 104 H Calcium 9.4 Magnesium 2.0 Total Bilirubin 1.3 H AST 30 ALT 11 Alkaline Phosphatase 95 Troponin I High Sens 43.1 H* B-Natriuretic Peptide 149 H Total Protein 7.8 Albumin 3.8 Globulin 4.0 Albumin/Globulin Ratio 1.0 Lipase 23 Nasal Adenovirus (PCR) Nasal B. parapertussis DNA (PCR) Nasal Coronavir 229E PCR Nasal Coronavir HKU1 PCR Nasal Coronavir NL63 PCR Nasal Coronavir OC43 PCR Nasal Enterovir/Rhinovir PCR Nasal Influenza B PCR Nasal Influenza A PCR Nasal Parainfluen 1 PCR Nasal Parainfluen 2 PCR Nasal Parainfluen 3 PCR Nasal Parainfluen 4 PCR Nasal RSV (PCR) Nasal B.pertussis DNA PCR Nasal C.pneumoniae (PCR) Willie Human Metapneumo PCR Nasal M.pneumoniae (PCR) Nasal SARS-CoV-2 (PCR) 02/16/21 02/16/21 02/16/21 15:04 15:31 17:20 WBC 13.3 H RBC 4.73 Hgb 14.4 Hct 43.6 MCV 92.2 MCH 30.4 MCHC 33.0 RDW 13.9 Plt Count 290 MPV 10.7 Neut # (Auto) 10.8 H Lymph # (Auto) 1.8 [place] # (Auto) 0.6 Eos # (Auto) 0.0 Baso # (Auto) 0.0 Absolute Nucleated RBC 0.00 Nucleated RBC % 0.0 Sodium Potassium Chloride Carbon Dioxide Anion Gap BUN Creatinine Estimated GFR (MDRD) Glucose Calcium Magnesium Total Bilirubin AST ALT Alkaline Phosphatase Troponin I High Sens 49.0 H* B-Natriuretic Peptide Total Protein Albumin Globulin Albumin/Globulin Ratio Lipase Nasal Adenovirus (PCR) NOT DETECTED Nasal B. parapertussis DNA (PCR) NOT DETECTED Nasal Coronavir 229E PCR NOT DETECTED Nasal Coronavir HKU1 PCR NOT DETECTED Nasal Coronavir NL63 PCR NOT DETECTED Nasal Coronavir OC43 PCR NOT DETECTED Nasal Enterovir/Rhinovir PCR NOT DETECTED Nasal Influenza B PCR NOT DETECTED Nasal Influenza A PCR NOT DETECTED Nasal Parainfluen 1 PCR NOT DETECTED Nasal Parainfluen 2 PCR NOT DETECTED Nasal Parainfluen 3 PCR NOT DETECTED Nasal Parainfluen 4 PCR NOT DETECTED Nasal RSV (PCR) NOT DETECTED Nasal B.pertussis DNA PCR NOT DETECTED Nasal C.pneumoniae (PCR) NOT DETECTED Willie Human Metapneumo PCR NOT DETECTED Nasal M.pneumoniae (PCR) NOT DETECTED Nasal SARS-CoV-2 (PCR) NOT DETECTED - Rads (name of study) chest xray Radiology: Prelim report reviewed (no acute process), See rad report PD MEDICAL DECISION MAKING - ED course Complexity details: re-evaluated patient (improved with albuterol MDI, and is breathing easily, sats are adequate at 94% RA. BP is slightly low but not feeling lightheaded. Does not seem in CHF, but rather reactive airways/wheezing. ), considered differential, d/w patient Departure - Departure Disposition: 01 Home, Self Care Clinical Impression: Weakness, Acute dyspnea Reactive airway disease Qualifiers: Asthma severity: mild Asthma persistence: intermittent Asthma complication type: with acute exacerbation Qualified Code(s): J45.21 - Mild intermittent asthma with (acute) exacerbation Condition: Stable Record reviewed to determine appropriate education?: Yes Instructions: ED Dyspnea Shortness of Breath Prescriptions: Albuterol Sulf [Ventolin Hfa Inhaler] 2 - 3 puffs INH Q4HR 10 Days #1 inhaler dexAMETHasone [Decadron] 4 mg PO DAILY #5 tablet Comments: Chest x-ray is clear. Your blood tests are also good without any signs of heart failure or heart attack. Your respiratory panel test is negative for any acute infections that are on the panel. You did improve with an albuterol inhaler. I presume you have some reactive airways/asthma going on. I would suggest using your inhaler 2 to 3 puffs 4 times a day for the next week to 10 days. Decadron steroid daily for the next several days as well. Continue your other usual medicines. Recheck if not improved well over the next few days and return if worse. Discharge Date/Time: 02/16/21 19:54
[2021-02-16] MEDS ORDERED: FUROSEMIDE 40 MG/4 ML VIAL IVP STA (13:59)
[2021-02-16] MEDS ORDERED: ALBUTEROL 1 PUFF INH STA (13:59)
--- NOTE | 2021-02-16 14:34 | XRAY Report ---
PROCEDURE: Chest 1 View X-Ray INDICATIONS: Chest Pain TECHNIQUE: One view of the chest was acquired. COMPARISON: February 11, 2021 FINDINGS: SUPPORT DEVICES: None. LUNG/PLEURA: No focal consolidation or pulmonary edema. No pleural effusion or space-occupying pneumo thorax. MEDIASTINUM: The cardiomediastinal silhouette is within normal limits. BONES/SOFT TISSUES: No acute abnormality. IMPRESSION: 1.No acute cardiopulmonary abnormality. Reviewed by: Kartik Mcbride MD on 02/16/2021 2:33 PM PDT Approved by: Kartik Mcbride MD on 02/16/2021 2:33 PM PDT Station ID: [id number]
[2021-02-16 15:15] LABS: BASOPHILS % (AUTO) 0.2 %; HCT - HEMATOCRIT 43.6 % (37.0-47.0); HGB - HEMOGLOBIN 14.4 g/dL (12.0-16.0); LYMPHOCYTES # (AUTO) 1.8 10^3/uL (1.5-3.5); LYMPHOCYTES % (AUTO) 13.5 %; MEAN CORPUSCULAR HEMOGLOBIN 30.4 pg (27.0-31.0); MEAN CORPUSCULAR VOLUME 92.2 fL (81.0-99.0); MEAN PLATELET VOLUME 10.7 fL (7.9-10.8); MONOCYTES # (AUTO) 0.6 10^3/uL (0.0-1.0); MONOCYTES % (AUTO) 4.2 %; NEUTROPHILS # (AUTO) 10.8 10^3/uL (1.5-6.6); NEUTROPHILS % (AUTO) 81.6 %; PLT - PLATELET COUNT 290 10^3/uL (130-450); RED BLOOD COUNT 4.73 10^6/uL (4.20-5.40); RED CELL DISTRIBUTION WIDTH 13.9 % (12.0-15.0); WHITE BLOOD COUNT 13.3 x10^3/uL (4.8-10.8)
[2021-02-16] MEDS ORDERED: ACETAMINOPHEN 325 MG TABLET PO STA (15:21)
[2021-02-16] MEDS ORDERED: KETOROLAC 15 MG/ML VIAL IVP STA (15:21)
[2021-02-16 15:44] LABS: ALBUMIN 3.8 g/dL (3.2-5.5); BILIRUBIN,TOTAL 1.3 mg/dL (0.2-1.0); CALCIUM 9.4 mg/dL (8.5-10.3); POTASSIUM 4.1 mmol/L (3.5-5.0); TOTAL PROTEIN 7.8 g/dL (6.7-8.2)
[2021-02-16] MEDS ORDERED: DEXAMETHASONE 10 MG/ML VIAL IVP STA (16:07)
[2021-02-16 16:42] LABS: B. PARAPERTUSSIS- RESP PCR PAN NOT DETECTED; B. PERTUSSIS- RESP PCR PANEL NOT DETECTED; C. PNEUMONIAE- RESP PCR PANEL NOT DETECTED; CORONAVIRUS 229E-RESP PCR NOT DETECTED; CORONAVIRUS HKU1-RESP PCR NOT DETECTED; CORONAVIRUS NL63-RESP PCR NOT DETECTED; CORONAVIRUS OC43-RESP PCR NOT DETECTED; HUMAN METAPNEUMOVIRUS NOT DETECTED; INFLUENZA A- RESP PCR PANEL NOT DETECTED; INFLUENZA B - RESP PCR PANEL NOT DETECTED; M. PNEUMONIAE- RESP PCR PANEL NOT DETECTED; PARAINFLUENZA VIRUS 1 NOT DETECTED; PARAINFLUENZA VIRUS 2 NOT DETECTED; PARAINFLUENZA VIRUS 3 NOT DETECTED; PARAINFLUENZA VIRUS 4 NOT DETECTED; RHINOVIRUS/ENTEROVIRUS NOT DETECTED; RSV- RESP PCR PANEL NOT DETECTED; SARS-CoV-2 -RESP PCR PANEL NOT DETECTED
[2021-02-16] MEDS ORDERED: SODIUM CHLORIDE 0.9% 250 ML IV STA (18:01)
[2021-02-16 18:44] VITALS: BP 97/57
== END 2021-02-16 19:54 | disposition home or self-care (01) ==
LOC: EDUNIT# → ED 13:16
DX: J45.21 Mild intermittent asthma with (acute) exacerbation (principal); F17.200 Nicotine dependence, unspecified, uncomplicated; R53.1 Weakness; G35 Multiple sclerosis; I10 Essential (primary) hypertension; I25.10 Atherosclerotic heart disease of native coronary artery without angina pectoris; I45.10 Unspecified right bundle-branch block; Z79.02 Long term (current) use of antithrombotics/antiplatelets; Z20.822 Contact with and (suspected) exposure to COVID-19
CPT/HCPCS: 36415; 71045; 80053; 83690; 83735; 83880; 84484; 85025; 87631; 93005; 94640; 96374; 96375; 99283; 99284; A9270; 0202U

== ENCOUNTER 2021-02-21 08:02 | Outpatient (CLI) | payer MEDICARE, MEDICAID | END 2021-02-21 08:03 | disposition critical access hospital (66) | LOC: EMS 08:02 | DX: Z04.3 Encounter for examination and observation following other accident (principal); R41.82 Altered mental status, unspecified | CPT/HCPCS: A0425; A0429 ==

== ENCOUNTER 2021-02-21 08:20 | Observation (INO) | payer MEDICARE, MEDICAID ==
[2021-02-21] MEDS ORDERED: SODIUM CHLORIDE 0.9% 1,000 ML IV STA ×2 (08:35→09:27)
[2021-02-21] MEDS ORDERED: LORazepam 2 MG/ML VIAL IVP STA (08:47)
[2021-02-21 08:56] LABS: BASOPHILS # (AUTO) 0.1 10^3/uL (0.0-0.1); BASOPHILS % (AUTO) 0.5 %; EOSINOPHILS % (AUTO) 0.1 %; HCT - HEMATOCRIT 45.2 % (37.0-47.0); HGB - HEMOGLOBIN 14.8 g/dL (12.0-16.0); LYMPHOCYTES # (AUTO) 2.8 10^3/uL (1.5-3.5); LYMPHOCYTES % (AUTO) 17.9 %; MEAN CORPUSCULAR HEMOGLOBIN 29.7 pg (27.0-31.0); MEAN CORPUSCULAR HGB CONC 32.7 g/dL (32.0-36.0); MEAN CORPUSCULAR VOLUME 90.8 fL (81.0-99.0); MEAN PLATELET VOLUME 10.7 fL (7.9-10.8); MONOCYTES # (AUTO) 0.8 10^3/uL (0.0-1.0); MONOCYTES % (AUTO) 4.8 %; NEUTROPHILS # (AUTO) 11.9 10^3/uL (1.5-6.6); NEUTROPHILS % (AUTO) 75.8 %; PLT - PLATELET COUNT 390 10^3/uL (130-450); RED BLOOD COUNT 4.98 10^6/uL (4.20-5.40); RED CELL DISTRIBUTION WIDTH 13.4 % (12.0-15.0); WHITE BLOOD COUNT 15.7 x10^3/uL (4.8-10.8)
[2021-02-21 09:07] LABS: ALBUMIN 4.5 g/dL (3.2-5.5); ALBUMIN/GLOBULIN RATIO 0.9 (1.0-2.2); BILIRUBIN,TOTAL 0.7 mg/dL (0.2-1.0); CALCIUM 9.9 mg/dL (8.5-10.3); CREATININE 1.3 mg/dL (0.4-1.0); POTASSIUM 4.9 mmol/L (3.5-5.0); TOTAL PROTEIN 9.3 g/dL (6.7-8.2)
--- NOTE | 2021-02-21 09:20 | CT Report ---
PROCEDURE: HEAD WO INDICATIONS: fall confusion plavix TECHNIQUE: Noncontrast 4.5 mm thick angled axial sections acquired from the foramen magnum to the vertex. For r adiation dose reduction, the following was used: automated exposure control, adjustment of mA and/or kV according to patient size. COMPARISON: None. FINDINGS: Image quality: Excellent. CSF spaces: Basal cisterns are patent. No extra-axial fluid collections. Ventricles are normal in size and shape. Brain: No midline shift. No intracranial masses or hemorrhage. Mild supra cortical volume loss for age. Several scattered patches of white matter hypodensity in bilateral frontal and parietal regions. Focal lacunar infarcts seen in the left basal ganglia Zavaleta-white matter interface is normal. Skull and face: Calvarium and visualized facial bones are intact, without suspicious lesions. Sinuses: Visualized sinuses and mastoids are clear. IMPRESSION: 1. No CT evidence of acute intracranial trauma. 2. Mild cerebral cortical volume loss and several scattered areas of chronic microvascular ischemic c hange including small left basal ganglia lacunar infarcts. 3. No skull fracture. Reviewed by: Taylor Vick MD on 02/21/2021 9:19 AM PDT Approved by: Taylor Vick MD on 02/21/2021 9:19 AM PDT Station ID: [id number]
--- NOTE | 2021-02-21 09:26 | ED Physician Documentation ---
PD HPI ALTERED MENTAL STATUS - Stated complaint Stated Complaint: GLF/CONFUSION - Chief complaint Chief Complaint: Neuro - History obtained from History obtained from: EMS - History of Present Illness Timing - onset: Today Timing - duration: Other (unknown) Timing - details: Still present, Still present in ED Quality / character: Confused, Disoriented Associated symptoms: No: Fever, Headache, Stiff neck, NVD Contributing factors: Recent illness, Other (recent hospitalization for metabolic encephalopathy) Basline status: Alert and oriented X 3, Ambulatory, Independent Similar symptoms before: Diagnosis (UTI, dehydration, MS) Recently seen: Emergency Dept, Admitted - Additional information Additional information: 65-year-old female with a history of MS and frequent urinary tract infections as well as medication misuse was in her home this morning neighbors heard a thud against a wall and medics found the patient sitting on her couch confused and unable to help with history seemed combative. Unable to start IV en-route. 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 - Present Medications Home Medications: Ambulatory Orders Medication Instructions Recorded Confirmed Cholestyramine [Questran] 4 gm PO QPM 04/28/13 02/13/21 Baclofen 10 mg PO QID 07/18/19 02/13/21 Glucos Sul 2Kcl/MSM/Chond/C/Mn 1 cap PO DAILY 07/18/19 02/13/21 [Glucosamine Chondroitin Cap] Levothyroxine Sodium 50 mcg PO DAILY 07/18/19 02/13/21 Multivitamin/Iron/Folic Acid 1 ea ORAL DAILY 07/18/19 02/13/21 [Centrum Women Tablet] Methylphenidate HCl 40 mg PO DAILY 02/10/20 02/13/21 [Methylphenidate ER] levETIRAcetam [Roweepra] 500 mg PO BID 02/10/20 02/13/21 Acetaminophen [Tylenol] 650 mg PO Q4HR PRN 06/15/20 02/13/21 Oxymetazoline HCl [Afrin] 2 sprays WILLIE BID PRN bottle 06/15/20 02/13/21 Calcium Carbonate/Vitamin D3 1 each PO DAILY 12/09/20 02/13/21 [Calcium 500Mg-Vit D3 15Mcg Tab] [place]-3/Dha/Epa/Fish Oil [Fish Oil 1 cap PO DAILY 12/09/20 02/13/21 1,000 mg Softgel] Atorvastatin [Lipitor] 40 mg PO QPM #0 12/21/20 02/13/21 Clobetasol 0.05% Oint [Temovate 1 applic TOP BID 12/21/20 02/13/21 0.05% Oint] Clopidogrel [Plavix] 75 mg PO DAILY #0 12/21/20 02/13/21 Metoprolol Succinate [Toprol Xl] 25 mg PO BID #0 12/21/20 02/13/21 Nystatin [Nystop] 1 applic TOP BID bottle 12/21/20 02/13/21 Furosemide [Lasix] 20 mg PO DAILY 02/12/21 02/13/21 Potassium Chloride [Klor-Con 10] 10 meq PO DAILY 02/12/21 02/13/21 Cetirizine [ZyrTEC] 10 mg PO DAILY 02/13/21 02/13/21 Cholecalciferol [Vitamin D3] 25 mcg PO DAILY 02/13/21 02/13/21 Nitrofurantoin [Macrobid] 100 mg PO BID #8 cap 02/14/21 Albuterol Sulf [Ventolin Hfa 2 - 3 puffs INH Q4HR 10 Days #1 02/16/21 Inhaler] inhaler dexAMETHasone [Decadron] 4 mg PO DAILY #5 tablet 02/16/21 - Allergies Allergies/Adverse Reactions: Allergies Allergy/AdvReac Type Severity Reaction Status Date / Time No Known Drug Allergies Allergy Verified 02/21/21 08:26 - Social History Does the pt smoke?: Yes Smoking Status: Current every day smoker Does the pt drink ETOH?: No Does the pt have substance abuse?: Yes - Immunizations Immunizations are current?: No - POLST Patient has POLST: No POLST Status: Full Code PD ED PE NORMAL - Vitals Vital signs reviewed: Yes (wide pulse pressure) - General General: Well developed/nourished, Other (moaning and not able to communicate or localize pain ) - HEENT HEENT: Atraumatic, PERRL, EOMI, Other (deep palpation of the entire scalp without tenderness or mass) - Neck Neck: Supple, no meningeal sign, No bony TTP - Cardiac Cardiac: RRR, No murmur - Respiratory Respiratory: No respiratory distress, Clear bilaterally - Abdomen Abdomen: Normal bowel sounds, Soft, Non tender, Non distended, No organomegaly - Back Back: No CVA TTP, No spinal TTP - Derm Derm: Normal color, Warm and dry, No rash - Extremities Extremities: No deformity, No edema - Neuro Neuro: [place] former brace end 2-12 intact, No motor deficit, No sensory deficit Eye Opening: Spontaneous Motor: Obeys Commands Verbal: Confused GCS Score: 14 - Psych Psych: Normal mood, Normal affect Results - Vitals Vitals: Vital Signs - 24 hr 02/21/21 02/21/21 02/21/21 08:26 08:52 09:02 Temperature 36 C L 36.1 C L Heart Rate 74 83 74 Respiratory 20 12 14 Rate Blood Pressure 105/58 L 142/74 H 117/70 O2 Saturation 100 97 96 02/21/21 11:00 Temperature Heart Rate 64 Respiratory 13 Rate Blood Pressure 94/69 O2 Saturation 100 Oxygen O2 Source [] Room air O2 Source [] Room air O2 Source Room air - Labs Labs: Laboratory Tests 02/21/21 02/21/21 02/21/21 08:48 08:48 08:48 WBC 15.7 H RBC 4.98 Hgb 14.8 Hct 45.2 MCV 90.8 MCH 29.7 MCHC 32.7 RDW 13.4 Plt Count 390 MPV 10.7 Neut # (Auto) 11.9 H Lymph # (Auto) 2.8 [place] # (Auto) 0.8 Eos # (Auto) 0.0 Baso # (Auto) 0.1 Absolute Nucleated RBC 0.00 Nucleated RBC % 0.0 Sodium 138 Potassium 4.9 Chloride 96 L Carbon Dioxide 25 Anion Gap 17.0 H BUN 60 H Creatinine 1.3 H Estimated GFR (MDRD) 41 L Glucose 134 H Lactic Acid 2.0 Calcium 9.9 Total Bilirubin 0.7 AST 26 ALT 22 Alkaline Phosphatase 111 Total Protein 9.3 H Albumin 4.5 Globulin 4.8 H Albumin/Globulin Ratio 0.9 L Lipase 50 Urine Color Urine Clarity Urine pH Ur Specific [place] Urine Protein Urine Glucose (UA) Urine Ketones Urine Occult Blood Urine Nitrite Urine Bilirubin Urine Urobilinogen Ur Leukocyte Esterase Urine RBC Urine WBC Ur Squamous Epith Cells Urine Bacteria Ur Microscopic Review Urine Culture Comments 02/21/21 09:53 WBC RBC Hgb Hct MCV MCH MCHC RDW Plt Count MPV Neut # (Auto) Lymph # (Auto) [place] # (Auto) Eos # (Auto) Baso # (Auto) Absolute Nucleated RBC Nucleated RBC % Sodium Potassium Chloride Carbon Dioxide Anion Gap BUN Creatinine Estimated GFR (MDRD) Glucose Lactic Acid Calcium Total Bilirubin AST ALT Alkaline Phosphatase Total Protein Albumin Globulin Albumin/Globulin Ratio Lipase Urine Color YELLOW Urine Clarity CLEAR Urine pH 6.0 Ur Specific [place] 1.015 Urine Protein NEGATIVE Urine Glucose (UA) NEGATIVE Urine Ketones NEGATIVE Urine Occult Blood NEGATIVE Urine Nitrite POSITIVE H Urine Bilirubin NEGATIVE Urine Urobilinogen 0.2 (NORMAL) Ur Leukocyte Esterase NEGATIVE Urine RBC 0-5 Urine WBC 0-3 Ur Squamous Epith Cells FEW Squamous Urine Bacteria Few Ur Microscopic Review INDICATED Urine Culture Comments INDICATED - Rads (name of study) chest Radiology: Prelim report reviewed (Impression: 1. No acute cardiopulmonary abnormality.), EMP read indepedently, See rad report CT head without Radiology: Prelim report reviewed (Impression: 1. No CT evidence of acute intra cranial trauma. Mild cerebral cortical volume loss and several scattered areas of chronic microvascular ischemic change including small left basal ganglion lacunar infarcts. No skull fracture.), EMP read indepedently, See rad report Procedures - IVC sono (time) 0835 Bedside IVC sono: IVC measures (cm) (small vessle collapses completely with resp.) PD MEDICAL DECISION MAKING - ED course Complexity details: reviewed old records, reviewed results, re-evaluated patient, considered differential, d/w patient ED course: 65-year-old female presents again to the emergency department with altered level of consciousness unable to give any history unable to cooperate with examination. There was a concern for trauma as the neighbor heard a thud on the wall. CT scan of the head was again without evidence of acute abnormality and we have obtained urine and a chest x-ray neither of which are impressive for infection. The patient does have an elevated white blood cell count she is found to be dehydrated on interrogation the inferior vena cava she is administered intravenous fluid. She did require a dose of Ativan to perform the CT scan as she was akathetic on her bed. She has a prior history of medication misuse, dehydration and urinary tract infection as contributors to her altered mental status. She has required hospitalization previously and she has cleared after 2 days. The patient herself is unable to give me any specific history from the chart I am able to see that she thinks that when this happens it is related to her MS. Departure - Departure Disposition: 66 [facility] DC/Xfer Clinical Impression: KJ (acute kidney injury), Acute encephalopathy, Dehydration Condition: Stable
[2021-02-21 10:04] LABS: BILIRUBIN,URINE NEGATIVE (NEGATIVE); GLUCOSE, URINE (UA) NEGATIVE (NEGATIVE); KETONES,URINE (UA) NEGATIVE (NEGATIVE); LEUKOCYTE ESTERASE, URINE NEGATIVE (NEGATIVE); NITRITE,URINE POSITIVE (NEGATIVE); OCCULT BLOOD,URINE NEGATIVE (NEGATIVE); PROTEIN,URINE NEGATIVE (NEGATIVE); UROBILINOGEN,URINE 0.2 (NORMAL) E.U./dL (NORMAL)
[2021-02-21 10:06] LABS: CLARITY,URINE CLEAR (CLEAR)
[2021-02-21 10:09] LABS: BACTERIA,URINE Few /HPF (None Seen); RBC,URINE 0-5 /HPF (0-5); SQUAMOUS EPITHELIAL CELL,UR FEW Squamous (<= Few); WBC,URINE 0-3 /HPF (0-5)
--- NOTE | 2021-02-21 10:17 | XRAY Report ---
PROCEDURE: Chest 1 View X-Ray INDICATIONS: chest pain TECHNIQUE: One view of the chest was acquired. COMPARISON: February 16, 2021 FINDINGS: SUPPORT DEVICES: None. LUNG/PLEURA: Mildly coarsened interstitial markings. No focal consolidation or pulmonary edema. No pl eural effusion or space-occupying pneumothorax. MEDIASTINUM: The cardiomediastinal silhouette is within normal limits. BONES/SOFT TISSUES: No acute abnormality. IMPRESSION: 1.No acute cardiopulmonary abnormality. Reviewed by: Kartik Mcbride MD on 02/21/2021 10:16 AM PDT Approved by: Kartik Mcbride MD on 02/21/2021 10:16 AM PDT Station ID: [id number]
[2021-02-21] MEDS ORDERED: ONDANSETRON 4 MG/2 ML VIAL IVP PRN (11:28)
[2021-02-21] MEDS ORDERED: SODIUM CHLORIDE FLUSH 0.9% 10 ML SYRINGE IVP PRN (11:28)
[2021-02-21] MEDS ORDERED: ACETAMINOPHEN 325 MG TABLET PO PRN (11:28)
--- NOTE | 2021-02-21 11:35 | HISTORY & PHYSICAL EXAMINATION ---
Chief Complaint - Chief Complaint Chief Complaint: encephalopathy History of Present Illness - Admitted From Admitted From:: [facility] ED - History Obtained From Records Reviewed: yes History obtained from: ED physician Exam Limitations: encephalopathy - History of Present Illness HPI Comment/Other: Is a 65-year-old female with history of MS who is well-known to the hospitalist service. She also has history of frequent UTIs and has grown ESBL in the past. The history below was obtained from the ED physician and the ED physicians H&P because the patient is currently encephalopathic and unable to provide a history . It is reported that her neighbors had her thought against the wall and called EMS. The medics found the patient sitting on her couch confused and unable to provide any history. She was also somewhat combative. As a result she was brought to the ED for evaluation. She also has a history of medication misuse. In the ED she was given a dose of Ativan in attempt to obtain a CT of the brain for further evaluation. Further work-up included a CBC which showed a white blood cell count of 15.7. Her UA was positive for nitrites and showed few bacteria. As a result of her clinical status of encephalopathy, she was presented admission for further evaluation and treatment. At bedside she was Intermittently restless and somnolent. She frequently pulls off telemetry leads. History - Past Medical History Cardiovascular: reports: Hypertension, Coronary artery disease, [place] Respiratory: reports: None Neuro: reports: Multiple sclerosis Endocrine/Autoimmune: reports: Other GI: reports: None BLUEPRINTER: reports: Other : reports: Chronic bladder infection HEENT: reports: None Psych: reports: Depression, ADD/ADHD Musculoskeletal: reports: Chronic back pain, Other Derm: reports: Other MRSA Hx?: No - Past Surgical History Ortho: reports: Spine surgery /BLUEPRINTER: reports: Hysterectomy - Family & Social History Family History Comment/Other: Unable to update this family history but below is the family history from her admission from last admission which was obtained from her niece, Latisha. The patient has been adopted by a stepfather and he is still alive in his 80s. Her father of bone cancer when she was a very little girl. Mom is and of heart disease but had lung cancer before she . 1 brother of the same bone cancer that his father of. 1 brother is alive but has A. fib. No sisters. No children. Living Situation: Alone Social History Notes: Unable to update the social history given her encephalopathy but review of prior review of systems revealed that she is a smoker and does not have a history of alcohol abuse. She has a history of illicit drug use, probably LSD back in the 1970s. - Substance History Use: Uses substance without health or social issues: Tobacco - POLST Patient has POLST: No POLST Status: Full Code Meds/Allgy - Home Medications Home Medications: Ambulatory Orders Medication Instructions Recorded Confirmed Cholestyramine [Questran] 4 gm PO QPM 04/28/13 02/13/21 Baclofen 10 mg PO QID 07/18/19 02/13/21 Glucos Sul 2Kcl/MSM/Chond/C/Mn 1 cap PO DAILY 07/18/19 02/13/21 [Glucosamine Chondroitin Cap] Levothyroxine Sodium 50 mcg PO DAILY 07/18/19 02/13/21 Multivitamin/Iron/Folic Acid 1 ea ORAL DAILY 07/18/19 02/13/21 [Centrum Women Tablet] Methylphenidate HCl 40 mg PO DAILY 02/10/20 02/13/21 [Methylphenidate ER] levETIRAcetam [Roweepra] 500 mg PO BID 02/10/20 02/13/21 Acetaminophen [Tylenol] 650 mg PO Q4HR PRN 06/15/20 02/13/21 Oxymetazoline HCl [Afrin] 2 sprays WILLIE BID PRN bottle 06/15/20 02/13/21 Calcium Carbonate/Vitamin D3 1 each PO DAILY 12/09/20 02/13/21 [Calcium 500Mg-Vit D3 15Mcg Tab] [place]-3/Dha/Epa/Fish Oil [Fish Oil 1 cap PO DAILY 12/09/20 02/13/21 1,000 mg Softgel] Atorvastatin [Lipitor] 40 mg PO QPM #0 12/21/20 02/13/21 Clobetasol 0.05% Oint [Temovate 1 applic TOP BID 12/21/20 02/13/21 0.05% Oint] Clopidogrel [Plavix] 75 mg PO DAILY #0 12/21/20 02/13/21 Metoprolol Succinate [Toprol Xl] 25 mg PO BID #0 12/21/20 02/13/21 Nystatin [Nystop] 1 applic TOP BID bottle 12/21/20 02/13/21 Furosemide [Lasix] 20 mg PO DAILY 02/12/21 02/13/21 Potassium Chloride [Klor-Con 10] 10 meq PO DAILY 02/12/21 02/13/21 Cetirizine [ZyrTEC] 10 mg PO DAILY 02/13/21 02/13/21 Cholecalciferol [Vitamin D3] 25 mcg PO DAILY 02/13/21 02/13/21 Nitrofurantoin [Macrobid] 100 mg PO BID #8 cap 02/14/21 Albuterol Sulf [Ventolin Hfa 2 - 3 puffs INH Q4HR 10 Days #1 02/16/21 Inhaler] inhaler dexAMETHasone [Decadron] 4 mg PO DAILY #5 tablet 02/16/21 - Allergies Allergies/Adverse Reactions: Allergies Allergy/AdvReac Type Severity Reaction Status Date / Time No Known Drug Allergies Allergy Verified 02/21/21 08:26 Review of Systems - Other Findings Other Findings: 12 point review of system is limited currently because the patient is encephalopathic and unable to provide a reliable history. Prior Level of Functionality: Lives alone and is independent of activities of daily living. longterm facility has been recommended at previous hospitalizations but the patient declined. Exam - Vital Signs Vital Signs: Vital Signs x48h Temp Pulse Resp BP Pulse Ox 02/21/21 11:34 35.5 C L 60 12 93/50 L 100 02/21/21 11:00 64 13 94/69 100 02/21/21 09:02 74 14 117/70 96 02/21/21 08:52 36.1 C L 83 12 142/74 H 97 02/21/21 08:26 36 C L 74 20 105/58 L 100 - Physical Exam General Appearance: positive: No acute distress, Other (Intermittently agitated/somnolent. Not oriented to self, place, time or reason) Eyes Bilateral: positive: PERRL, EOMI ENT: positive: Dry mucous membranes Neck: positive: No JVD, Trachea midline Respiratory: positive: Chest non-tender, No respiratory distress, Breath sounds nml. negative: Wheezes, Rales, Rhonchi Cardiovascular: positive: Regular rate & rhythm Abdomen: positive: Non-tender, No organomegaly, Nml bowel sounds, No distention. negative: Guarding, Rebound Back: positive: Nml inspection Skin: positive: Color nml, No rash, Warm, Dry Extremities: positive: Non-tender, Full ROM, Nml appearance, No pedal edema Neurologic/Psychiatric: positive: Disoriented to person, Disoriented to place, Disoriented to time. negative: Oriented x3 Conclusion/Plan - Problem List (1) Acute encephalopathy Conclusion/Plan: Etiology undetermined. Differential includes UTI versus medication misuse CT brain w/o contrast and tox screen was negative Blood and urine cultures pending Patient was recently treated for UTI with cefepime and discharged with nitrofurantoin WBC 15.7. If patient become febrile, will initiate antibiotics emperically (2) KJ (acute kidney injury) Conclusion/Plan: Likely 2/2 dehydration Cr was 1.3 with eGFR 41 Patient was given 1L bolus of normal saline in the ED On Normal saline at 100ml/hr (3) Dehydration Conclusion/Plan: Patient was given 1L bolus of normal saline in the ED On Normal saline at 100ml/hr (4) HTN (hypertension) Conclusion/Plan: BP currently low/low end of normal. Will hold antihypertensives while actively hydrating (5) Hx of seizure disorder Conclusion/Plan: Will resume keppra 500mg po bid in the morning (6) Hypothyroidism Conclusion/Plan: On synthroid 50 mcg po daily Will check TSH in the am (7) Multiple sclerosis, primary chronic progressive Conclusion/Plan: On dexamethasone 4mg po daily. (8) Leukocytosis Conclusion/Plan: Reactive vs infectious Patient on decadron chronicly Blood and urine cultures pending Will start antibiotics emperically if patient becomes febrile. - Lab Results Fish Bones: 02/21/21 08:48 02/21/21 08:48 Core Measures - Anticipated LOS I expect patient to be DC'd or transferred within 96 hours.: Yes - DVT/VTE - Prophylaxis VTE/DVT Device ordered at admit?: Yes VTE/DVT Prophylaxis med ordered at admit?: Yes
[2021-02-21 11:56] LABS: B. PARAPERTUSSIS- RESP PCR PAN NOT DETECTED; B. PERTUSSIS- RESP PCR PANEL NOT DETECTED; C. PNEUMONIAE- RESP PCR PANEL NOT DETECTED; CORONAVIRUS 229E-RESP PCR NOT DETECTED; CORONAVIRUS HKU1-RESP PCR NOT DETECTED; CORONAVIRUS NL63-RESP PCR NOT DETECTED; CORONAVIRUS OC43-RESP PCR NOT DETECTED; HUMAN METAPNEUMOVIRUS NOT DETECTED; INFLUENZA A- RESP PCR PANEL NOT DETECTED; INFLUENZA B - RESP PCR PANEL NOT DETECTED; M. PNEUMONIAE- RESP PCR PANEL NOT DETECTED; PARAINFLUENZA VIRUS 1 NOT DETECTED; PARAINFLUENZA VIRUS 2 NOT DETECTED; PARAINFLUENZA VIRUS 3 NOT DETECTED; PARAINFLUENZA VIRUS 4 NOT DETECTED; RHINOVIRUS/ENTEROVIRUS NOT DETECTED; RSV- RESP PCR PANEL NOT DETECTED; SARS-CoV-2 -RESP PCR PANEL NOT DETECTED
[2021-02-21] MEDS: SODIUM CHLORIDE 0.9% 1,000 ML IV SCH ×2 (12:08→22:31)
[2021-02-21 12:40] LABS: MUDS CUTOFF CONCENTRATIONS CUTOFF CONC BELOW:
[2021-02-21 13:05] LABS: AMPHETAMINE SCREEN,URINE NEGATIVE (NEGATIVE); BARBITURATE SCREEN,UR NEGATIVE (NEGATIVE); BENZODIAZEPINES SCREEN, URINE NEGATIVE (NEGATIVE); COCAINE SCREEN URINE NEGATIVE (NEGATIVE); METHADONE SCREEN, URINE NEGATIVE (NEGATIVE); METHAMPHETAMINES SCREEN, URINE NEGATIVE (NEGATIVE); OPIATE SCREEN, URINE NEGATIVE (NEGATIVE); OXYCODONE SCREEN, URINE NEGATIVE (NEGATIVE); PROPOXYPHENE SCREEN, URINE NEGATIVE (NEGATIVE); THC CANNABINOID SCREEN, URINE NEGATIVE (NEGATIVE); TRICYCLIC ANTIDEPRESSANT,URINE NEGATIVE (NEGATIVE)
[2021-02-21] MEDS: SODIUM CHLORIDE FLUSH 0.9% 10 ML SYRINGE IVP SCH (18:10)
[2021-02-21] MEDS: NYSTATIN POWDER 15 GM TOP SCH (22:31)
[2021-02-22] MEDS: SODIUM CHLORIDE FLUSH 0.9% 10 ML SYRINGE IVP SCH ×2 (05:44→09:20)
[2021-02-22 06:09] LABS: BASOPHILS # (AUTO) 0.1 10^3/uL (0.0-0.1); BASOPHILS % (AUTO) 0.8 %; EOSINOPHILS # (AUTO) 0.4 10^3/uL (0.0-0.7); EOSINOPHILS % (AUTO) 3.7 %; HCT - HEMATOCRIT 40.7 % (37.0-47.0); LYMPHOCYTES % (AUTO) 26.4 %; MEAN CORPUSCULAR HEMOGLOBIN 29.8 pg (27.0-31.0); MEAN CORPUSCULAR HGB CONC 31.9 g/dL (32.0-36.0); MEAN CORPUSCULAR VOLUME 93.3 fL (81.0-99.0); MEAN PLATELET VOLUME 10.9 fL (7.9-10.8); MONOCYTES # (AUTO) 0.7 10^3/uL (0.0-1.0); MONOCYTES % (AUTO) 5.8 %; NEUTROPHILS # (AUTO) 7.1 10^3/uL (1.5-6.6); NEUTROPHILS % (AUTO) 62.8 %; PLT - PLATELET COUNT 285 10^3/uL (130-450); RED BLOOD COUNT 4.36 10^6/uL (4.20-5.40); RED CELL DISTRIBUTION WIDTH 13.6 % (12.0-15.0); WHITE BLOOD COUNT 11.3 x10^3/uL (4.8-10.8)
[2021-02-22 06:13] LABS: CREATININE 0.9 mg/dL (0.4-1.0); POTASSIUM 3.2 mmol/L (3.5-5.0)
[2021-02-22] MEDS ORDERED: POTASSIUM CHLORIDE 20 MEQ TABLET PO ONE (08:19)
[2021-02-22] MEDS ORDERED: D5.45NS W/20 MEQ KCL 1,000 ML IV SCH (09:00)
[2021-02-22] MEDS ORDERED: ENOXAPARIN 40 MG/0.4 ML SYRINGE SUBQ SCH (09:00)
[2021-02-22] MEDS: NYSTATIN POWDER 15 GM TOP SCH (09:21)
--- NOTE | 2021-02-22 11:38 | DISCHARGE SUMMARY ---
Discharge Summary Admit Date: 02/21/21 Discharge Date: 02/22/21 Discharging Provider: Raf Benoit Primary Care Provider: Yenny Markham Condition at Discharge: Stable Discharge Disposition: 01 Home, Self Care - DIAGNOSES Admission Diagnoses: Acute encephalopathy Acute kidney injury Dehydration Hypertension History of seizures Hypothyroidism Leukocytosis Discharge Diagnoses with Status of Each Condition: Acute encephalopathy: Resolved Acute kidney injury: Resolved Dehydration: Resolved Hypertension: Chronic. Stable. Continue home medications History of seizures: Chronic Hypothyroidism: Chronic. Continue home medications Leukocytosis: Acute. Likely reactive. Improved/resolved - HPI History of Present Illness: Is a 65-year-old female with history of MS who is well-known to the hospitalist service. She also has history of frequent UTIs and has grown ESBL in the past. The history below was obtained from the ED physician and the ED physicians H&P because the patient is currently encephalopathic and unable to provide a history. It is reported that her neighbors had her thought against the wall and called EMS. The medics found the patient sitting on her couch confused and unable to provide any history. She was also somewhat combative. As a result she was brought to the ED for evaluation. She also has a history of medication misuse. In the ED she was given a dose of Ativan in attempt to obtain a CT of the brain for further evaluation. Further work-up included a CBC which showed a white blood cell count of 15.7. Her UA was positive for nitrites and showed few bacteria. As a result of her clinical status of encephalopathy, she was presented admission for further evaluation and treatment. At bedside she was Intermittently restless and somnolent. She frequently pulls off telemetry leads. Blood and urine cultures were obtained at time of admission. The patient was started on IV hydration and just observed. Her vitals were stable throughout hospital stay. By the morning of the following day the patient was alert and oriented x4. She was frequently shouting at medical staff. On questioning about the events that led to her presentation, she recalls EMS arriving at her house. She denies anything out of ordinary within the previous 24 hours prior to EMS arriving at her residence. It was suspected that encephalopathy may be due to medication misuse however she maintains that she manages her medications appropriately. It also appears she was dehydrated at time of admission. With IV hydration her renal function normalized. Her creatinine was 1.3 at admission and 0.9 at discharge. At her previous admission she had been treated for a UTI and was discharged home on Macrobid which she did not take because she did not feel from the pharmacy. She has been advised/encouraged to follow through with picking up the medication and taking it. Through her hospital stay she was afebrile. Her white blood cell count was initially 15 and improved to 11 without any intervention. Blood cultures were no growth to date by the time of discharge. She was discharged home in stable condition after approximately 24-hour stay in the hospital. She may follow-up with her primary care physician as needed. Social service in the hospital has reached out to several social services counselor in the community for which she would need to follow-up. - ALLERGIES Allergies/Adverse Reactions: Allergies Allergy/AdvReac Type Severity Reaction Status Date / Time No Known Drug Allergies Allergy Verified 02/21/21 08:26 - MEDICATIONS Home Medications: Ambulatory Orders Medication Instructions Recorded Confirmed Cholestyramine [Questran] 4 gm PO QPM 04/28/13 02/13/21 Baclofen 10 mg PO QID 07/18/19 02/13/21 Glucos Sul 2Kcl/MSM/Chond/C/Mn 1 cap PO DAILY 07/18/19 02/13/21 [Glucosamine Chondroitin Cap] Levothyroxine Sodium 50 mcg PO DAILY 07/18/19 02/13/21 Multivitamin/Iron/Folic Acid 1 ea ORAL DAILY 07/18/19 02/13/21 [Centrum Women Tablet] Methylphenidate HCl 40 mg PO DAILY 02/10/20 02/13/21 [Methylphenidate ER] levETIRAcetam [Roweepra] 500 mg PO BID 02/10/20 02/13/21 Acetaminophen [Tylenol] 650 mg PO Q4HR PRN 06/15/20 02/13/21 Oxymetazoline HCl [Afrin] 2 sprays WILLIE BID PRN bottle 06/15/20 02/13/21 Calcium Carbonate/Vitamin D3 1 each PO DAILY 12/09/20 02/13/21 [Calcium 500Mg-Vit D3 15Mcg Tab] [place]-3/Dha/Epa/Fish Oil [Fish Oil 1 cap PO DAILY 12/09/20 02/13/21 1,000 mg Softgel] Atorvastatin [Lipitor] 40 mg PO QPM #0 12/21/20 02/13/21 Clobetasol 0.05% Oint [Temovate 1 applic TOP BID 12/21/20 02/13/21 0.05% Oint] Clopidogrel [Plavix] 75 mg PO DAILY #0 12/21/20 02/13/21 Metoprolol Succinate [Toprol Xl] 25 mg PO BID #0 12/21/20 02/13/21 Nystatin [Nystop] 1 applic TOP BID bottle 12/21/20 02/13/21 Furosemide [Lasix] 20 mg PO DAILY 02/12/21 02/13/21 Potassium Chloride [Klor-Con 10] 10 meq PO DAILY 02/12/21 02/13/21 Cetirizine [ZyrTEC] 10 mg PO DAILY 02/13/21 02/13/21 Cholecalciferol [Vitamin D3] 25 mcg PO DAILY 02/13/21 02/13/21 Nitrofurantoin [Macrobid] 100 mg PO BID #8 cap 02/14/21 Albuterol Sulf [Ventolin Hfa 2 - 3 puffs INH Q4HR 10 Days #1 02/16/21 Inhaler] inhaler dexAMETHasone [Decadron] 4 mg PO DAILY #5 tablet 02/16/21 - PHYSICAL EXAM AT DISCHARGE General Appearance: positive: No acute distress, Alert Eyes Bilateral: positive: PERRL, EOMI ENT: positive: No signs of dehydration Neck: positive: No JVD, Trachea midline Respiratory: positive: Chest non-tender, No respiratory distress, Breath sounds nml. negative: Wheezes, Rales, Rhonchi Cardiovascular: positive: Regular rate & rhythm, No murmur Abdomen: positive: Non-tender, No organomegaly, Nml bowel sounds, No distention. negative: Guarding, Rebound Back: positive: Nml inspection Skin: positive: Color nml, No rash, Warm, Dry Extremities: positive: Non-tender, Full ROM, Nml appearance, No pedal edema Neurologic/Psychiatric: positive: Oriented x3, Mood/affect nml - LABS Result Diagrams: 02/22/21 05:57 02/22/21 05:57 - TIME SPENT Time Spent in Discharge (Minutes): 25
--- NOTE | 2021-02-22 11:43 | Discharge Plan ---
Discharge Plan Problem Reviewed?: Yes Disposition: Home, Self Care Condition: Stable Diet: Regular Activity Restrictions: Activity as Tolerated Health Concerns: You were admitted yesterday 02/21/2021 with encephalopathy. Your neighbors had called EMS to your home where you were found confused. Work-up has been largely unremarkable. It was suspected that you potentially had misused your medications however on questioning you maintain that you manage your medications appropriately. You had an elevated white blood cell count at 15 but with observation your white blood cell count today upon discharge is 11. No antibiotics were warranted. Blood and urine cultures were done but nothing has grown so far. Today you are back to your baseline. You are alert and oriented x4 and very vocal. You are not in any distress. At the time of your last discharge you were prescribed Macrobid which you did not take because you were unable to roller picker/fill the prescription. You are agreeable to do so this time. It has been recommended in the past that you go to a halfway facility. This was reiterated today at the time of discharge. You maintain that you do not wish to go to a halfway facility and want to go home because that is where you are most comfortable. Several referrals have been made to various manager social services to provide some assistance in the community. You are strongly advised to follow-up with this services. You are being discharged in stable condition. You may follow-up with your primary care physician as needed. Was explained to you, you expressed understanding and are in agreement. No Smoking: If you smoke, Please STOP! Call for help.
[2021-02-22 12:19] VITALS: BP 107/57
== END 2021-02-22 13:40 | disposition home or self-care (01) ==
LOC: EDUNIT# → ED 08:20 → MS2 11:28
PROVIDERS: ADMIT Internal Medicine; ATTEND Internal Medicine
DX: G93.40 Encephalopathy, unspecified (principal); N17.9 Acute kidney failure, unspecified; E86.0 Dehydration; I10 Essential (primary) hypertension; G40.909 Epilepsy, unspecified, not intractable, without status epilepticus; E03.9 Hypothyroidism, unspecified; G35 Multiple sclerosis; D72.829 Elevated white blood cell count, unspecified; Z87.440 Personal history of urinary (tract) infections; Z20.822 Contact with and (suspected) exposure to COVID-19; Z79.899 Other long term (current) drug therapy; F17.200 Nicotine dependence, unspecified, uncomplicated
CPT/HCPCS: 36415; 70450; 71045; 80048; 80053; 80306; 81001; 83605; 83690; 84443; 85025; 87040; 87086; 87631; 96361; 96372; 96374; 99285; A9270; G0378; J1650; J2060; 0202U; 81003

== ENCOUNTER 2021-02-23 14:33 | Outpatient (CLI) | payer MEDICARE, MEDICAID ==
[2021-02-23 18:18] LABS: BASOPHILS # (AUTO) 0.1 10^3/uL (0.0-0.1); BASOPHILS % (AUTO) 0.9 %; EOSINOPHILS # (AUTO) 0.4 10^3/uL (0.0-0.7); EOSINOPHILS % (AUTO) 2.4 %; HCT - HEMATOCRIT 41.7 % (37.0-47.0); HGB - HEMOGLOBIN 13.7 g/dL (12.0-16.0); LYMPHOCYTES # (AUTO) 3.2 10^3/uL (1.5-3.5); MEAN CORPUSCULAR HEMOGLOBIN 30.2 pg (27.0-31.0); MEAN CORPUSCULAR HGB CONC 32.9 g/dL (32.0-36.0); MEAN CORPUSCULAR VOLUME 91.9 fL (81.0-99.0); MEAN PLATELET VOLUME 11.3 fL (7.9-10.8); MONOCYTES # (AUTO) 1.1 10^3/uL (0.0-1.0); MONOCYTES % (AUTO) 7.7 %; NEUTROPHILS # (AUTO) 9.8 10^3/uL (1.5-6.6); NEUTROPHILS % (AUTO) 66.5 %; PLT - PLATELET COUNT 389 10^3/uL (130-450); RED BLOOD COUNT 4.54 10^6/uL (4.20-5.40); RED CELL DISTRIBUTION WIDTH 13.6 % (12.0-15.0); WHITE BLOOD COUNT 14.8 x10^3/uL (4.8-10.8)
[2021-02-23 18:46] LABS: ALBUMIN 4.3 g/dL (3.2-5.5); ALKALINE PHOSPHATASE 92 IU/L (42-121); ALT ALANINE AMINOTRANSFERASE 21 IU/L (10-60); AST ASPARTATE AMINOTRANSFERASE 22 IU/L (10-42); BILIRUBIN,TOTAL 0.6 mg/dL (0.2-1.0); BUN - BLOOD UREA NITROGEN 49 mg/dL (6-20); CALCIUM 10.3 mg/dL (8.5-10.3); CARBON DIOXIDE - CO2 21 mmol/L (21-32); CHLORIDE 103 mmol/L (101-111); CHOL/HDL RATIO 3.3 (<4.4); CHOLESTEROL 197 mg/dL; CREATININE 1.2 mg/dL (0.4-1.0); GFR - MDRD 45 (>89); GLUCOSE 96 mg/dL (70-100); HDL CHOLESTEROL 59 mg/dL; LDL CHOLESTEROL,CALCULATED 97 mg/dL; LDL/HDL RATIO 1.6 (<4.4); POTASSIUM 3.4 mmol/L (3.5-5.0); SODIUM 140 mmol/L (135-145); TOTAL PROTEIN 8.6 g/dL (6.7-8.2); TRIGLYCERIDES 206 mg/dL; VLDL CHOLESTEROL 41 mg/dL
[2021-02-23 18:52] LABS: THYROID STIMULATING HORMONE 1.99 uIU/mL (0.34-5.60)
[2021-02-23 18:54] LABS: FREE T4 (FREE THYROXINE) 0.78 ng/dL (0.58-1.64)
[2021-02-23 19:45] LABS: ESTIMATED AVERAGE GLUCOSE 134 mg/dL (70-100); HEMOGLOBIN A1c% 6.3 % (4.27-6.07)
== END 2021-02-23 23:59 | disposition home or self-care (01) ==
LOC: LAB.WCP 14:33
PROVIDERS: ATTEND Nurse Practitioner
DX: I10 Essential (primary) hypertension (principal); E78.00 Pure hypercholesterolemia, unspecified; N32.81 Overactive bladder; N39.0 Urinary tract infection, site not specified; N17.9 Acute kidney failure, unspecified; R73.9 Hyperglycemia, unspecified; E03.9 Hypothyroidism, unspecified
CPT/HCPCS: 36415; 80053; 80061; 81001; 82043; 82570; 83036; 83721; 84439; 84443; 85025; 87086

== ENCOUNTER 2021-04-15 08:11 | Outpatient (CLI) | payer MEDICARE, MEDICAID | END 2021-04-15 08:12 | disposition critical access hospital (66) | LOC: EMS 08:11 | DX: R45.1 Restlessness and agitation (principal); R41.82 Altered mental status, unspecified | CPT/HCPCS: A0425; A0429 ==

== ENCOUNTER 2021-04-15 08:27 | Observation (INO) | payer MEDICARE, MEDICAID ==
--- NOTE | 2021-04-15 08:35 | ED Physician Documentation ---
History of Present Illness - Stated complaint Stated Complaint: AGITATED - History obtained from History obtained from: Patient, EMS - History of Present Illness Timing: Today Pain level max: 0 Pain level now: 0 - Additonal information Additional information: Patient is a 65-year-old female brought in by EMS after methamphetamine and dextromethorphan yesterday. Patient has no specific complaints. Her neighbors reportedly saw her on the ground in her home and called 911. Patient denies any pain or injury. Review of Systems Ten Systems: 10 systems reviewed and negative Constitutional: denies: Fever, Chills Nose: denies: Rhinorrhea / runny nose, Congestion Throat: denies: Sore throat Cardiac: denies: Chest pain / pressure, Palpitations Respiratory: denies: Cough GI: denies: Abdominal Pain, Vomiting Musculoskeletal: denies: Neck pain, Back pain Neurologic: denies: Headache PD PAST MEDICAL HISTORY - Past Medical History Cardiovascular: Hypertension, Coronary artery disease, [place] Respiratory: None Neuro: Multiple sclerosis Endocrine/Autoimmune: Other GI: None PERINATAL COORDINATOR: Other : Chronic bladder infection HEENT: None Psych: Depression, ADD/ADHD Musculoskeletal: Chronic back pain, Other Derm: Other - Past Surgical History Past Surgical History: Yes Ortho: Spine surgery /PERINATAL COORDINATOR: Hysterectomy - Present Medications Home Medications: Ambulatory Orders Medication Instructions Recorded Confirmed Cholestyramine [Questran] 4 gm PO QPM 04/28/13 02/13/21 Baclofen 10 mg PO QID 07/18/19 02/13/21 Glucos Sul 2Kcl/MSM/Chond/C/Mn 1 cap PO DAILY 07/18/19 02/13/21 [Glucosamine Chondroitin Cap] Levothyroxine Sodium 50 mcg PO DAILY 07/18/19 02/13/21 Multivitamin/Iron/Folic Acid 1 ea ORAL DAILY 07/18/19 02/13/21 [Centrum Women Tablet] Methylphenidate HCl 40 mg PO DAILY 02/10/20 02/13/21 [Methylphenidate ER] levETIRAcetam [Roweepra] 500 mg PO BID 02/10/20 02/13/21 Acetaminophen [Tylenol] 650 mg PO Q4HR PRN 06/15/20 02/13/21 Oxymetazoline HCl [Afrin] 2 sprays WILLIE BID PRN bottle 06/15/20 02/13/21 Calcium Carbonate/Vitamin D3 1 each PO DAILY 12/09/20 02/13/21 [Calcium 500Mg-Vit D3 15Mcg Tab] [place]-3/Dha/Epa/Fish Oil [Fish Oil 1 cap PO DAILY 12/09/20 02/13/21 1,000 mg Softgel] Atorvastatin [Lipitor] 40 mg PO QPM #0 12/21/20 02/13/21 Clobetasol 0.05% Oint [Temovate 1 applic TOP BID 12/21/20 02/13/21 0.05% Oint] Clopidogrel [Plavix] 75 mg PO DAILY #0 12/21/20 02/13/21 Metoprolol Succinate [Toprol Xl] 25 mg PO BID #0 12/21/20 02/13/21 Nystatin [Nystop] 1 applic TOP BID bottle 12/21/20 02/13/21 Furosemide [Lasix] 20 mg PO DAILY 02/12/21 02/13/21 Potassium Chloride [Klor-Con 10] 10 meq PO DAILY 02/12/21 02/13/21 Cetirizine [ZyrTEC] 10 mg PO DAILY 02/13/21 02/13/21 Cholecalciferol [Vitamin D3] 25 mcg PO DAILY 02/13/21 02/13/21 Nitrofurantoin [Macrobid] 100 mg PO BID #8 cap 02/14/21 Albuterol Sulf [Ventolin Hfa 2 - 3 puffs INH Q4HR 10 Days #1 02/16/21 Inhaler] inhaler dexAMETHasone [Decadron] 4 mg PO DAILY #5 tablet 02/16/21 - Allergies Allergies/Adverse Reactions: Allergies Allergy/AdvReac Type Severity Reaction Status Date / Time No Known Drug Allergies Allergy Verified 04/15/21 08:34 - Social History Does the pt smoke?: Yes Smoking Status: Unknown if ever smoked Does the pt drink ETOH?: No Does the pt have substance abuse?: Yes - Immunizations Immunizations are current?: No - POLST Patient has POLST: No POLST Status: Full Code PD ED PE NORMAL - Vitals Vital signs reviewed: Yes - General General: Alert and oriented X 3, No acute distress, Well developed/nourished - HEENT HEENT: PERRL, Other (dry lips and tongue) - Neck Neck: Supple, no meningeal sign - Cardiac Cardiac: RRR - Respiratory Respiratory: No respiratory distress, Clear bilaterally - Abdomen Abdomen: Soft, Non tender, Non distended - Derm Derm: Warm and dry - Extremities Extremities: No edema, No calf tenderness / cord - Neuro Neuro: Alert and oriented X 3, Other (mild agitation) - Psych Psych: Normal mood, Normal affect Results - Vitals Vitals: Vital Signs - 24 hr 04/15/21 04/15/21 04/15/21 08:35 13:00 14:00 Temperature 36.5 C Heart Rate 99 80 79 Respiratory 18 17 17 Rate Blood Pressure 96/80 119/78 120/74 O2 Saturation 94 99 99 04/15/21 04/15/21 15:00 15:30 Temperature Heart Rate 79 77 Respiratory 16 16 Rate Blood Pressure 120/86 H 121/63 O2 Saturation 98 98 Oxygen O2 Source [With Activity] Room air O2 Source [Without Activity] Room air O2 Source Room air - Labs Labs: Laboratory Tests 04/15/21 04/15/21 04/15/21 08:49 08:49 08:49 WBC 14.4 H RBC 4.91 Hgb 14.6 Hct 43.7 MCV 89.0 MCH 29.7 MCHC 33.4 RDW 13.8 Plt Count 332 MPV 10.9 H Neut # (Auto) 12.2 H Lymph # (Auto) 1.[address] [place] # (Auto) 0.7 Eos # (Auto) 0.0 Baso # (Auto) 0.2 H Absolute Nucleated RBC 0.00 Nucleated RBC % 0.0 Sodium 144 Potassium 3.8 Chloride 102 Carbon Dioxide 20 L Anion Gap 22.0 H BUN 48 H Creatinine 2.8 H Estimated GFR (MDRD) 17 L Glucose 93 Calcium 9.7 Total Bilirubin 1.4 H AST 24 ALT 20 Alkaline Phosphatase 130 H Total Creatine Kinase Total Protein 8.9 H Albumin 4.8 Globulin 4.1 Albumin/Globulin Ratio 1.2 Lipase 25 TSH 1.23 Salicylates < 6.0 Acetaminophen < 10 L Ethyl Alcohol < 5.0 04/15/21 04/15/21 04/15/21 08:49 13:33 13:33 WBC 12.8 H RBC 4.30 Hgb 12.7 Hct 39.7 MCV 92.3 MCH 29.5 MCHC 32.0 RDW 14.2 Plt Count 289 MPV 11.1 H Neut # (Auto) 9.6 H Lymph # (Auto) 2.1 [place] # (Auto) 0.9 Eos # (Auto) 0.1 Baso # (Auto) 0.1 Absolute Nucleated RBC 0.00 Nucleated RBC % 0.0 Sodium 148 H Potassium 3.8 Chloride 108 Carbon Dioxide 22 Anion Gap 18.0 H BUN 47 H Creatinine 2.4 H Estimated GFR (MDRD) 20 L Glucose 89 Calcium 8.7 Total Bilirubin AST ALT Alkaline Phosphatase Total Creatine Kinase 320 H Total Protein Albumin Globulin Albumin/Globulin Ratio Lipase TSH Salicylates Acetaminophen Ethyl Alcohol PD MEDICAL DECISION MAKING - ED course Complexity details: reviewed results, re-evaluated patient, considered differential, d/w patient ED course: Labs are continuing to improve. Patient's agitation appears to likely to be secondary to her methamphetamine and possible dextromethorphan use today. Expect that she will continue to clear. She continued to receive IV fluids and this should help the dehydration with the mild renal insufficiency as well. Patient will be signed out to the [facility] emergency department physician for repeat evaluation as she metabolizes her ingested substances today. This document was made in part using voice recognition software. While efforts are made to proofread this document, sound alike and grammatical errors may occur. Departure - Departure Clinical Impression: Renal insufficiency, Dehydration Condition: Stable
[2021-04-15 08:55] LABS: BASOPHILS # (AUTO) 0.2 10^3/uL (0.0-0.1); BASOPHILS % (AUTO) 1.3 %; EOSINOPHILS % (AUTO) 0.1 %; HCT - HEMATOCRIT 43.7 % (37.0-47.0); HGB - HEMOGLOBIN 14.6 g/dL (12.0-16.0); LYMPHOCYTES # (AUTO) 1.3 10^3/uL (1.5-3.5); LYMPHOCYTES % (AUTO) 8.9 %; MEAN CORPUSCULAR HEMOGLOBIN 29.7 pg (27.0-31.0); MEAN CORPUSCULAR HGB CONC 33.4 g/dL (32.0-36.0); MEAN PLATELET VOLUME 10.9 fL (7.9-10.8); MONOCYTES # (AUTO) 0.7 10^3/uL (0.0-1.0); MONOCYTES % (AUTO) 4.8 %; NEUTROPHILS # (AUTO) 12.2 10^3/uL (1.5-6.6); NEUTROPHILS % (AUTO) 84.6 %; PLT - PLATELET COUNT 332 10^3/uL (130-450); RED BLOOD COUNT 4.91 10^6/uL (4.20-5.40); RED CELL DISTRIBUTION WIDTH 13.8 % (12.0-15.0); WHITE BLOOD COUNT 14.4 x10^3/uL (4.8-10.8)
[2021-04-15 09:10] LABS: ACETAMINOPHEN < 10 ug/mL (10-30); ALBUMIN 4.8 g/dL (3.2-5.5); ALBUMIN/GLOBULIN RATIO 1.2 (1.0-2.2); ALKALINE PHOSPHATASE 130 IU/L (42-121); ALT ALANINE AMINOTRANSFERASE 20 IU/L (10-60); AST ASPARTATE AMINOTRANSFERASE 24 IU/L (10-42); BILIRUBIN,TOTAL 1.4 mg/dL (0.2-1.0); BUN - BLOOD UREA NITROGEN 48 mg/dL (6-20); CALCIUM 9.7 mg/dL (8.5-10.3); CARBON DIOXIDE - CO2 20 mmol/L (21-32); CHLORIDE 102 mmol/L (101-111); CREATININE 2.8 mg/dL (0.4-1.0); ETOH - ETHANOL < 5.0 mg/dL; GFR - MDRD 17 (>89); GLUCOSE 93 mg/dL (70-100); LIPASE 25 U/L (22-51); POTASSIUM 3.8 mmol/L (3.5-5.0); SALICYLATE < 6.0 mg/dL; SODIUM 144 mmol/L (135-145); TOTAL PROTEIN 8.9 g/dL (6.7-8.2)
[2021-04-15] MEDS ORDERED: SODIUM CHLORIDE 0.9% 2,000 ML IV STA (09:39)
[2021-04-15 13:37] LABS: BASOPHILS # (AUTO) 0.1 10^3/uL (0.0-0.1); BASOPHILS % (AUTO) 0.9 %; EOSINOPHILS # (AUTO) 0.1 10^3/uL (0.0-0.7); EOSINOPHILS % (AUTO) 0.4 %; HCT - HEMATOCRIT 39.7 % (37.0-47.0); HGB - HEMOGLOBIN 12.7 g/dL (12.0-16.0); LYMPHOCYTES # (AUTO) 2.1 10^3/uL (1.5-3.5); LYMPHOCYTES % (AUTO) 16.2 %; MEAN CORPUSCULAR HEMOGLOBIN 29.5 pg (27.0-31.0); MEAN CORPUSCULAR VOLUME 92.3 fL (81.0-99.0); MEAN PLATELET VOLUME 11.1 fL (7.9-10.8); MONOCYTES # (AUTO) 0.9 10^3/uL (0.0-1.0); NEUTROPHILS # (AUTO) 9.6 10^3/uL (1.5-6.6); NEUTROPHILS % (AUTO) 75.2 %; PLT - PLATELET COUNT 289 10^3/uL (130-450); RED CELL DISTRIBUTION WIDTH 14.2 % (12.0-15.0); WHITE BLOOD COUNT 12.8 x10^3/uL (4.8-10.8)
[2021-04-15 13:47] LABS: CALCIUM 8.7 mg/dL (8.5-10.3); CREATININE 2.4 mg/dL (0.4-1.0); POTASSIUM 3.8 mmol/L (3.5-5.0)
[2021-04-15] MEDS ORDERED: ELECTROLYTE-A SOLUTION 1,000 ML IV SCH (16:00)
[2021-04-15] MEDS ORDERED: ONDANSETRON ODT 4 MG TABLET TL PRN (17:48)
[2021-04-15] MEDS ORDERED: ONDANSETRON 4 MG/2 ML VIAL IVP PRN (17:48)
[2021-04-15] MEDS ORDERED: SODIUM CHLORIDE FLUSH 0.9% 10 ML SYRINGE IVP PRN (17:48)
--- NOTE | 2021-04-15 17:51 | ED Physician Documentation ---
ED Addendum - Addendum Addendum: 04/15/21 17:[address] Chow at shift change. Briefly this is a 65-year-old woman who was using methamphetamines and became altered and also has acute renal failure. Plan at shift change was that she was metabolizing her methamphetamine and would likely be able to go home, I examined her at serial junctures and found her not to be rapidly improving her encephalopathy. At this point she will wake up she can, say her name. That said she is unable to really give any history or talk to us. As such given the persistent slow improvement in her delirium/encephalopathy related to drug use and the acute kidney injury she will be placed in observation for further evaluation and treatment and spoke with Dr. Marquez for same at 5:[address] Marquez did wonder if she was retaining and we did a bladder scan which showed a little over 500 mL in the bladder. We will place a [place]. Not sure that her KJ is due to retention at that volume, she just has not been out of bed for 9 hours now due to her encephalopathy. Plus her labs show more of a prerenal azotemia pattern suggesting volume depletion. Disposition: Placed in observation Condition: Stable Diagnoses: 1. Encephalopathy 2. Drug abuse 3. Acute kidney injury
[2021-04-15 18:24] LABS: MUDS CUTOFF CONCENTRATIONS CUTOFF CONC BELOW:
[2021-04-15 18:27] LABS: BILIRUBIN,URINE NEGATIVE (NEGATIVE); GLUCOSE, URINE (UA) NEGATIVE (NEGATIVE); KETONES,URINE (UA) TRACE mg/dL (NEGATIVE); LEUKOCYTE ESTERASE, URINE NEGATIVE (NEGATIVE); NITRITE,URINE POSITIVE (NEGATIVE); OCCULT BLOOD,URINE TRACE-INTA (NEGATIVE); PH,URINE 5.5 PH (5.0-7.5); PROTEIN,URINE NEGATIVE (NEGATIVE); UROBILINOGEN,URINE 0.2 (NORMAL) E.U./dL (NORMAL)
[2021-04-15 18:30] LABS: CLARITY,URINE SL. CLOUDY (CLEAR)
[2021-04-15 18:35] LABS: BACTERIA,URINE Many /HPF (None Seen); CASTS, URINE 0-2 Hyaline Casts /LPF; RBC,URINE 0-5 /HPF (0-5); SQUAMOUS EPITHELIAL CELL,UR RARE Squamous (<= Few); WBC,URINE 0-3 /HPF (0-5)
[2021-04-15 18:39] LABS: AMPHETAMINE SCREEN,URINE POSITIVE (NEGATIVE); BARBITURATE SCREEN,UR NEGATIVE (NEGATIVE); BENZODIAZEPINES SCREEN, URINE NEGATIVE (NEGATIVE); COCAINE SCREEN URINE NEGATIVE (NEGATIVE); METHADONE SCREEN, URINE NEGATIVE (NEGATIVE); METHAMPHETAMINES SCREEN, URINE NEGATIVE (NEGATIVE); OPIATE SCREEN, URINE NEGATIVE (NEGATIVE); OXYCODONE SCREEN, URINE NEGATIVE (NEGATIVE); PROPOXYPHENE SCREEN, URINE NEGATIVE (NEGATIVE); THC CANNABINOID SCREEN, URINE NEGATIVE (NEGATIVE); TRICYCLIC ANTIDEPRESSANT,URINE NEGATIVE (NEGATIVE)
[2021-04-15 19:09] LABS: B. PARAPERTUSSIS- RESP PCR PAN NOT DETECTED; B. PERTUSSIS- RESP PCR PANEL NOT DETECTED; C. PNEUMONIAE- RESP PCR PANEL NOT DETECTED; CORONAVIRUS 229E-RESP PCR NOT DETECTED; CORONAVIRUS HKU1-RESP PCR NOT DETECTED; CORONAVIRUS NL63-RESP PCR NOT DETECTED; CORONAVIRUS OC43-RESP PCR NOT DETECTED; HUMAN METAPNEUMOVIRUS NOT DETECTED; INFLUENZA A- RESP PCR PANEL NOT DETECTED; INFLUENZA B - RESP PCR PANEL NOT DETECTED; M. PNEUMONIAE- RESP PCR PANEL NOT DETECTED; PARAINFLUENZA VIRUS 1 NOT DETECTED; PARAINFLUENZA VIRUS 2 NOT DETECTED; PARAINFLUENZA VIRUS 3 NOT DETECTED; PARAINFLUENZA VIRUS 4 NOT DETECTED; RHINOVIRUS/ENTEROVIRUS NOT DETECTED; RSV- RESP PCR PANEL NOT DETECTED; SARS-CoV-2 -RESP PCR PANEL NOT DETECTED
--- NOTE | 2021-04-15 19:37 | HISTORY & PHYSICAL EXAMINATION ---
Chief Complaint - Chief Complaint Chief Complaint: Found down and agitated. History of Present Illness - Admitted From Admitted From:: Home - History Obtained From Records Reviewed: Yes History obtained from: Patient, Daytime hospitalist, EMR Exam Limitations: Patient is agitated and unable to provide a history. - History of Present Illness HPI Comment/Other: This is a 65-year-old female with a past medical history significant for hypothyroidism, seizure disorder, multiple sclerosis who presents today after being found down by her neighbors. It was also noted that she was quite agitated and there was concern that she may have been using meth earlier today. I am unable to obtain a history from her as she is quite agitated and will just yell out without answering my questions. She has been admitted multiple times in the past for altered status which have been attributed to dehydration and at times a urinary tract infection. There is also concern that she may be taking her medications incorrectly such as Sudafed. She does have methylphenidate on her medication list but reviewing her PARKING STATION ATTENDANT, this has not been prescribed since December and at that time only a 15-day supply was prescribed. In the emergency department, her toxicology was positive for amphetamines but not for methamphetamines. The rest of the toxicology screen was unremarkable. She was noted to have acute kidney injury with a creatinine as high as 2.8. She was given IV fluids and observed for 5 to 6 hours. Repeat labs showed minor improv ement in her creatinine but she was still quite agitated and so medicine was consulted for admission. I am unable to discuss goals of care due to her altered mental status. 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 The patient has been adopted by a stepfather and he is still alive in his 80s. Her father of bone cancer when she was a very little girl. Mom is and of heart disease but had lung cancer before she . 1 brother of the same bone cancer that his father of. 1 brother is alive but has A. fib. No sisters. No children. Living Situation: Alone Social History Notes: Unable to update the social history given her encephalopathy but review of prior review of systems revealed that she is a smoker and does not have a history of alcohol abuse. She has a history of illicit drug use, probably LSD back in the 1970s. - Substance History Use: Uses substance without health or social issues: Tobacco - POLST Patient has POLST: No Meds/Allgy - Home Medications Home Medications: Ambulatory Orders Medication Instructions Recorded Confirmed Cholestyramine [Questran] 4 gm PO QPM 04/28/13 02/13/21 Baclofen 10 mg PO QID 07/18/19 02/13/21 Glucos Sul 2Kcl/MSM/Chond/C/Mn 1 cap PO DAILY 07/18/19 02/13/21 [Glucosamine Chondroitin Cap] Levothyroxine Sodium 50 mcg PO DAILY 07/18/19 02/13/21 Multivitamin/Iron/Folic Acid 1 ea ORAL DAILY 07/18/19 02/13/21 [Centrum Women Tablet] Methylphenidate HCl 40 mg PO DAILY 02/10/20 02/13/21 [Methylphenidate ER] levETIRAcetam [Roweepra] 500 mg PO BID 02/10/20 02/13/21 Acetaminophen [Tylenol] 650 mg PO Q4HR PRN 06/15/20 02/13/21 Oxymetazoline HCl [Afrin] 2 sprays WILLIE BID PRN bottle 06/15/20 02/13/21 Calcium Carbonate/Vitamin D3 1 each PO DAILY 12/09/20 02/13/21 [Calcium 500Mg-Vit D3 15Mcg Tab] Anthony-3/Dha/Epa/Fish Oil [Fish Oil 1 cap PO DAILY 12/09/20 02/13/21 1,000 mg Softgel] Atorvastatin [Lipitor] 40 mg PO QPM #0 12/21/20 02/13/21 Clobetasol 0.05% Oint [Temovate 1 applic TOP BID 12/21/20 02/13/21 0.05% Oint] Clopidogrel [Plavix] 75 mg PO DAILY #0 12/21/20 02/13/21 Metoprolol Succinate [Toprol Xl] 25 mg PO BID #0 12/21/20 02/13/21 Nystatin [Nystop] 1 applic TOP BID bottle 12/21/20 02/13/21 Furosemide [Lasix] 20 mg PO DAILY 02/12/21 02/13/21 Potassium Chloride [Klor-Con 10] 10 meq PO DAILY 02/12/21 02/13/21 Cetirizine [ZyrTEC] 10 mg PO DAILY 02/13/21 02/13/21 Cholecalciferol [Vitamin D3] 25 mcg PO DAILY 02/13/21 02/13/21 Nitrofurantoin [Macrobid] 100 mg PO BID #8 cap 02/14/21 Albuterol Sulf [Ventolin Hfa 2 - 3 puffs INH Q4HR 10 Days #1 02/16/21 Inhaler] inhaler dexAMETHasone [Decadron] 4 mg PO DAILY #5 tablet 02/16/21 - Allergies Allergies/Adverse Reactions: Allergies Allergy/AdvReac Type Severity Reaction Status Date / Time No Known Drug Allergies Allergy Verified 04/15/21 08:34 Review of Systems - All Other Systems All Other Systems: reports: Other (Unable to obtain due to altered mental status.) Prior Level of Functionality: She lives alone. She was noted to have cognitive impairment during her prior admissions when evaluated by OT. Exam - Vital Signs Reviewed Vital Signs: Yes Vital Signs: Vital Signs x48h Pulse Pulse Resp BP BP Pulse Ox 04/15/21 18:59 98 16 127/112 H 92 04/15/21 17:00 76 17 120/73 99 04/15/21 16:30 79 16 127/66 99 04/15/21 15:30 77 16 121/63 98 04/15/21 15:00 79 16 120/86 H 98 04/15/21 14:00 79 17 120/74 99 04/15/21 13:00 80 17 119/78 99 - Physical Exam General Appearance: positive: Other (She initially appears to be in no distress but then will begin to yell and repeat her answers which are not appropriate for the questions being asked.) Eyes Bilateral: positive: Conjunctivae nml ENT: positive: Dry mucous membranes. negative: No signs of dehydration Neck: positive: Nml inspection Respiratory: positive: No respiratory distress. negative: Wheezes, Rales Cardiovascular: positive: Regular rate & rhythm. negative: Tachycardia Abdomen: negative: No distention (Mild distention of the lower abdomen), Tenderness, Guarding, Rebound Skin: positive: Warm, Dry, Other (She has multiple plaques over the anterior aspect of her lower extremities from the knee down to the ankles consistent with psoriasis) Extremities: positive: No pedal edema Neurologic/Psychiatric: positive: Other (She does not appear to have any focal deficits on exam as she can move all 4 extremities.) Conclusion/Plan - Problem List (1) Acute encephalopathy Conclusion/Plan: She is quite agitated and this is a little different compared to her prior presentations when she has been somnolent. Her urine toxicology is positive for amphetamines and she has not had a prescription for methylphenidate since December. The concern is for either methamphetamine use or misuse of her methylphenidate which she may be obtaining from other sources. She has no focal deficits suggest a stroke. We will hydrate her with IV fluids and hold sedat mali. I am hopeful she will improve over the next 24 hours. (2) KJ (acute kidney injury) Conclusion/Plan: Her creatinine is elevated at 2.8 has since improved to 2.4. Suspect likely prerenal injury although she was bladder scanned for 500 mL of urine. A Proctor catheter was placed either way and she does have urine output so doubt she has obstruction. We will hydrate with IV fluids and avoid nephrotoxins. Daily labs. (3) Hx of seizure disorder Conclusion/Plan: Stable. There is currently no evidence of seizure. We will continue her home Keppra. (4) Multiple sclerosis Conclusion/Plan: Stable. She is now on medications for this. Continue outpatient follow-up with neurology. (5) Hypothyroidism Conclusion/Plan: Continue Synthroid. TSH is within normal limits. (6) Psoriasis Conclusion/Plan: We will look to continue her home clobetasol. - Lab Results Lab results reviewed: Yes Fish Bones: 04/15/21 13:33 04/15/21 13:33 Core Measures - Anticipated LOS I expect patient to be DC'd or transferred within 96 hours.: Yes - Issues Hospital Issues and Management Plan: 65-year-old female found down and agitated likely due to methamphetamine use or inappropriate use of methylphenidate. She is also found to have acute kidney injury. She be placed in observation for IV fluids and monitoring of her renal function and neuro status. - DVT/VTE - Prophylaxis VTE/DVT Device ordered at admit?: Yes VTE/DVT Prophylaxis med ordered at admit?: No
[2021-04-15] MEDS: LACTATED RINGERS 1,000 ML IV SCH (20:14)
[2021-04-15] MEDS: ACETAMINOPHEN 325 MG TABLET PO PRN (21:07)
[2021-04-15] MEDS: HEPARIN 5,000 UNIT/ML VIAL SUBQ SCH (21:09)
[2021-04-16] MEDS: SODIUM CHLORIDE FLUSH 0.9% 10 ML SYRINGE IVP SCH ×2 (01:10→09:05)
[2021-04-16 05:53] LABS: BASOPHILS # (AUTO) 0.1 10^3/uL (0.0-0.1); BASOPHILS % (AUTO) 1.4 %; EOSINOPHILS # (AUTO) 0.2 10^3/uL (0.0-0.7); EOSINOPHILS % (AUTO) 2.3 %; HCT - HEMATOCRIT 36.4 % (37.0-47.0); HGB - HEMOGLOBIN 11.9 g/dL (12.0-16.0); LYMPHOCYTES # (AUTO) 2.4 10^3/uL (1.5-3.5); LYMPHOCYTES % (AUTO) 29.7 %; MEAN CORPUSCULAR HEMOGLOBIN 29.8 pg (27.0-31.0); MEAN CORPUSCULAR HGB CONC 32.7 g/dL (32.0-36.0); MONOCYTES # (AUTO) 0.7 10^3/uL (0.0-1.0); NEUTROPHILS # (AUTO) 4.7 10^3/uL (1.5-6.6); NEUTROPHILS % (AUTO) 57.5 %; PLT - PLATELET COUNT 244 10^3/uL (130-450); RED CELL DISTRIBUTION WIDTH 14.1 % (12.0-15.0); WHITE BLOOD COUNT 8.1 x10^3/uL (4.8-10.8)
[2021-04-16 06:02] LABS: ALBUMIN 3.4 g/dL (3.2-5.5); ALBUMIN/GLOBULIN RATIO 1.1 (1.0-2.2); CALCIUM 8.6 mg/dL (8.5-10.3); CREATININE 1.3 mg/dL (0.4-1.0); POTASSIUM 3.2 mmol/L (3.5-5.0); TOTAL PROTEIN 6.4 g/dL (6.7-8.2)
[2021-04-16] MEDS: LACTATED RINGERS 1,000 ML IV SCH (06:25)
[2021-04-16] MEDS: ACETAMINOPHEN 325 MG TABLET PO PRN ×2 (06:26→10:41)
[2021-04-16] MEDS: oxyCODONE 5 MG TABLET PO PRN ×2 (06:27→10:41)
[2021-04-16] MEDS ORDERED: LEVOTHYROXINE 25 MCG TABLET PO SCH (07:00)
[2021-04-16] MEDS ORDERED: POTASSIUM CHLORIDE 20 MEQ TABLET PO ONE (07:04)
[2021-04-16] MEDS ORDERED: levETIRAcetam 250 MG TABLET PO SCH (09:00)
[2021-04-16] MEDS ORDERED: ENOXAPARIN 40 MG/0.4 ML SYRINGE SUBQ SCH (09:00)
[2021-04-16] MEDS ORDERED: CLOPIDOGREL 75 MG TABLET PO SCH (09:00)
[2021-04-16] MEDS ORDERED: CLOBETASOL 0.05% OINT 15 GM TUBE TOP SCH (09:00)
[2021-04-16] MEDS: HEPARIN 5,000 UNIT/ML VIAL SUBQ SCH (09:00)
--- NOTE | 2021-04-16 10:51 | PHARMACY PROGRESS NOTE ---
- Best Possible Medication History Admit Date and Time: 04/15/21 1742 Processed by: Pharmacy Medication History completed: Yes Secondary Source(s): Physician records, Pharmacy records, Insurance records As the person ultimately responsible for medication therapy, providers are able to order a medication from an existing home medication list in [facility] via the "Reconcile Routine" prior to Confirmation of that medication by home support worker. Such practice is discouraged except when the physician, in their clinical judgment, deems that a medical need exists for a medication without regard to previous use.
[2021-04-16 11:41] VITALS: BP 90/51
--- NOTE | 2021-04-16 12:04 | Discharge Plan ---
Discharge Plan Problem Reviewed?: Yes Disposition: Home, Self Care Condition: Stable Diet: Regular Activity Restrictions: Activity as Tolerated Shower Restrictions: No Driving Restrictions: Yes (no driving) Instruction Topics: ED Dehydration, ED Drug Abuse General Health Concerns: You presented to the emergency room due to change in orientation, personality that left to very lethargic and unresponsive. In the emergency room you were severely dehydrated, and required aggressive IV hydration to bring you back to normal. You are now alert, oriented, back to your baseline and are ready to go home. Plan of Treatment: Fluids were giving in an IV into your body to hydrate you. You are now eating and drinking on your own. You are missing your bottom dentures and your new shoes that you left at home. Hopefully will find him when you get there Care Goals: To not return to the hospital for an acute emergency Assessment: Patient understands care goals Additional Instructions or Follow Up instructions: Recommend you stop using methamphetamines and other illicit substances. No Smoking: If you smoke, Please STOP! Call for help.
[2021-04-16 12:29] LABS: CALCIUM 8.7 mg/dL (8.5-10.3); CREATININE 1.2 mg/dL (0.4-1.0); POTASSIUM 3.8 mmol/L (3.5-5.0)
--- NOTE | 2021-04-16 18:19 | DISCHARGE SUMMARY ---
Discharge Summary Admit Date: 04/15/21 Discharge Date: 04/16/21 Discharging Provider: Kassie Marquez MD Primary Care Provider: KANDY Ibarra Code Status: Attempt Resuscitation Condition at Discharge: Stable Discharge Disposition: 01 Home, Self Care - DIAGNOSES Discharge Diagnoses with Status of Each Condition: 1. Acute encephalopathy, resolved 2. Acute kidney injury, resolved 3. History of seizure disorder 4. Positive tox screen for amphetamines with suspected abuse 5. Multiple sclerosis 6. Hypothyroidism 7. Psoriasis - HPI History of Present Illness: This is a 65-year-old female with a past medical history significant for hypothyroidism, seizure disorder, multiple sclerosis who presents today after being found down by her neighbors. It was also noted that she was quite agitated and there was concern that she may have been using meth earlier today. I am unable to obtain a history from her as she is quite agitated and will just yell out without answering my questions. She has been admitted multiple times in the past for altered status which have been attributed to dehydration and at times a urinary tract infection. There is also concern that she may be taking her medications incorrectly such as Sudafed. She does have methylphenidate on her medication list but reviewing her HEALTH SAFETY COORDINATOR, this has not been prescribed since December and at that time only a 15-day supply was prescribed. In the emergency department, her toxicology was positive for amphetamines but not for methamphetamines. The rest of the toxicology screen was unremarkable. She was noted to have acute kidney injury with a creatinine as high as 2.8. She was given IV fluids and observed for 5 to 6 hours. Repeat labs showed minor improvement in her creatinine but she was still quite agitated and so medicine was consulted for admission. I am unable to discuss goals of care due to her altered mental status. - Past Medical History Cardiovascular: reports: Hypertension, Coronary artery disease, [place] Respiratory: reports: None Neuro: reports: Multiple sclerosis Endocrine/Autoimmune: reports: Other GI: reports: None CANCER SPEC: reports: Other : reports: Chronic bladder infection HEENT: reports: None Psych: reports: Depression, ADD/ADHD Musculoskeletal: reports: Chronic back pain, Other Derm: reports: Other MRSA Hx?: No - HOSPITAL COURSE Hospital Course: The patient was aggressively hydrated overnight. The next morning she was awake, and unhappy. Her lower dentures are missing, and new shoes that she just bought at [facility] were also missing. She stated that we had stolen from her and spoke in a loud, high-pitched voice demanding that we return her property to her. In spite of numerous prompts from myself and nursing that the patient was brought in by ambulance, unconscious, she states that we were lying. She eventually had good response to IV hydration. Creatinine was 2.8 and came down to 1.2 by the time of discharge. Talk screen is once again positive for amphetamines but the patient is adamant she does not have amphetamine abuse but [id number] ab use of Sudafed. There were no new social work needs identified. She does not want to be placed and demands to go back home. At the time of discharge temperature was 37.1. Heart rate 75. Blood pressure 90/51. Respirations 18. 92% on room air. She was fully awake, speech intact. No focal deficits. Neck supple. Lungs were clear with occasional tachypnea depending on how loud she was screaming. Regular rate and rhythm. Abdomen soft, nontender with normal bowel sounds. She ate 100% of breakfast and lunch. She was independent with feeding herself. Independent with getting up to go to the bathroom to urinate and get back in bed. She had a bowel movement today. She is discharged in stable condition and asked to please follow-up with her primary care provider for continuity of care. - ALLERGIES Allergies/Adverse Reactions: Allergies Allergy/AdvReac Type Severity Reaction Status Date / Time No Known Drug Allergies Allergy Verified 04/15/21 08:34 - MEDICATIONS Home Medications: Ambulatory Orders Medication Instructions Recorded Confirmed Baclofen 10 mg PO QID 07/18/19 04/16/21 Glucos Sul 2Kcl/MSM/Chond/C/Mn 1 cap PO DAILY 07/18/19 04/16/21 [Glucosamine Chondroitin Cap] Levothyroxine Sodium 50 mcg PO DAILY 07/18/19 04/16/21 Multivitamin/Iron/Folic Acid 1 ea ORAL DAILY 07/18/19 04/16/21 [Centrum Women Tablet] Acetaminophen [Tylenol] 650 mg PO Q4HR PRN 06/15/20 04/16/21 Calcium Carbonate/Vitamin D3 1 each PO DAILY 12/09/20 04/16/21 [Calcium 500Mg-Vit D3 15Mcg Tab] Atorvastatin [Lipitor] 40 mg PO QPM #0 12/21/20 04/16/21 Clobetasol 0.05% Oint [Temovate 1 applic TOP BID 12/21/20 04/16/21 0.05% Oint] Clopidogrel [Plavix] 75 mg PO DAILY #0 12/21/20 04/16/21 Metoprolol Succinate [Toprol Xl] 25 mg PO BID #0 12/21/20 04/16/21 Furosemide [Lasix] 20 mg PO DAILY 02/12/21 04/16/21 Potassium Chloride [Klor-Con 10] 10 meq PO DAILY 02/12/21 04/16/21 Cetirizine [ZyrTEC] 10 mg PO DAILY 02/13/21 04/16/21 Cholecalciferol [Vitamin D3] 25 mcg PO DAILY 02/13/21 04/16/21 Albuterol Sulf [Ventolin Hfa 2 - 3 puffs INH Q4HR 10 Days #1 02/16/21 04/16/21 Inhaler] inhaler Levetiracetam [Keppra] 500 mg PO BID 04/16/21 04/16/21 - LABS Result Diagrams: 04/16/21 05:30 04/16/21 12:14
[2021-04-16] MEDS ORDERED: ATORVASTATIN 40 MG TABLET PO SCH (21:00)
== END 2021-04-16 14:10 | disposition home or self-care (01) ==
LOC: EDUNIT# → ED 08:27 → MS2 17:48
PROVIDERS: ADMIT Specialist; ATTEND Specialist
DX: N17.9 Acute kidney failure, unspecified (principal); G93.40 Encephalopathy, unspecified; E86.0 Dehydration; F15.10 Other stimulant abuse, uncomplicated; G35 Multiple sclerosis; G40.909 Epilepsy, unspecified, not intractable, without status epilepticus; E03.9 Hypothyroidism, unspecified; L40.9 Psoriasis, unspecified; I10 Essential (primary) hypertension; I25.10 Atherosclerotic heart disease of native coronary artery without angina pectoris; F17.200 Nicotine dependence, unspecified, uncomplicated; R33.9 Retention of urine, unspecified; Z20.822 Contact with and (suspected) exposure to COVID-19; Z79.02 Long term (current) use of antithrombotics/antiplatelets; Z79.890 Hormone replacement therapy; Z79.899 Other long term (current) drug therapy
CPT/HCPCS: 36415; 51702; 80048; 80053; 80306; 80307; 81001; 82550; 83690; 84443; 85025; 87077; 87086; 87181; 87631; 96360; 96361; 96372; 99283; 99285; A9270; G0378; G0480; J7120; 0202U; 80320; 80329; 81003

== ENCOUNTER 2021-08-31 07:11 | Outpatient (CLI) | payer MEDICARE, MEDICAID | END 2021-08-31 07:12 | disposition critical access hospital (66) | LOC: EMS 07:11 | DX: R41.0 Disorientation, unspecified (principal); R45.1 Restlessness and agitation; R40.0 Somnolence; W19.XXXA Unspecified fall, initial encounter; Y92.038 Other place in apartment as the place of occurrence of the external cause | CPT/HCPCS: A0425; A0427 ==

== ENCOUNTER 2021-08-31 07:30 | Inpatient (IN) | payer MEDICARE, MEDICAID ==
[2021-08-31] MEDS ORDERED: KETOROLAC 15 MG/ML VIAL IVP STA (07:39)
--- NOTE | 2021-08-31 07:41 | ED Physician Documentation ---
PD HPI Fall - Stated complaint Stated Complaint: GLF - Chief complaint Chief Complaint: Neuro - History obtained from History obtained from: Patient, EMS - History of Present Illness Mechanism of injury: Unknown Fall distance: Standing position (she was found down on ground outside by bystanders. Unknown down time. Skin cold and she was moaning and not coherent. Unknown if fall/injury.) Where injury occurred: Home Timing - onset: Today Injury(ies) location: Head (she seemed tender on scalp.) Associated symptoms: AMS. No: Weakness, Paresthesias Worsens with: Palpation Contributing factors: No: Anticoagulated Similar symptoms before: Diagnosis (has had prior admissions for AMS presumed due to substance use/abuse of OTC cold meds. 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 SUPERINTENDENT: Other : Chronic bladder infection HEENT: None Psych: Depression, ADD/ADHD Musculoskeletal: Chronic back pain, Other Derm: Other - Past Surgical History Past Surgical History: Yes Ortho: Spine surgery /NURSES SUPERINTENDENT: Hysterectomy - Present Medications Home Medications: Ambulatory Orders Medication Instructions Recorded Confirmed Baclofen 15 mg PO QID 07/18/19 08/31/21 Glucos Sul 2Kcl/MSM/Chond/C/Mn 1 cap PO DAILY 07/18/19 08/31/21 [Glucosamine Chondroitin Cap] Levothyroxine Sodium 50 mcg PO QDAC 07/18/19 08/31/21 Multivitamin/Iron/Folic Acid 1 ea ORAL DAILY 07/18/19 08/31/21 [Centrum Women Tablet] Calcium Carbonate/Vitamin D3 1 each PO DAILY 12/09/20 08/31/21 [Calcium 500Mg-Vit D3 15Mcg Tab] Atorvastatin [Lipitor] 40 mg PO QPM #0 12/21/20 08/31/21 Clopidogrel [Plavix] 75 mg PO DAILY #0 12/21/20 04/16/21 Furosemide [Lasix] 10 mg PO DAILY 02/12/21 08/31/21 Potassium Chloride [Klor-Con 10] 10 meq PO DAILY 02/12/21 08/31/21 Cetirizine [ZyrTEC] 10 mg PO DAILY PRN 02/13/21 08/31/21 Cholecalciferol [Vitamin D3] 25 mcg PO DAILY 02/13/21 08/31/21 Levetiracetam [Keppra] 500 mg PO BID 04/16/21 08/31/21 Metoprolol Succinate [Toprol Xl] 25 mg PO DAILY 08/31/21 08/31/21 - Allergies Allergies/Adverse Reactions: Allergies Allergy/AdvReac Type Severity Reaction Status Date / Time No Known Drug Allergies Allergy Verified 08/31/21 07:38 - Social History Does the pt smoke?: Yes Smoking Status: Current every day smoker Does the pt drink ETOH?: No Does the pt have substance abuse?: Yes - Immunizations Immunizations are current?: No - POLST Patient has POLST: No POLST Status: Full Code PD ED PE NORMAL - Vitals Vital signs reviewed: Yes - General General: No acute distress (she does not seem in pain but tosses and turns unpredicatably and yells out briefly often. Otherwise somnolent. ), Well developed/nourished - HEENT HEENT: PERRL (constricted), EOMI, Other (tenderness with mild swelling occiput. ) - Neck Neck: Supple, no meningeal sign, No adenopathy - Cardiac Cardiac: RRR, No murmur - Respiratory Respiratory: No respiratory distress, Clear bilaterally - Abdomen Abdomen: Soft, Non distended. No: Normal bowel sounds (decreased) - Female Female : Deferred - Rectal Rectal: Deferred - Back Back: No CVA TTP - Derm Derm: Normal color, Warm and dry - Extremities Extremities: Normal ROM s pain, No edema, Other (she does yell out at times when I move arms/legs passively but then will move easily next try. Not reporducible pain any particular spot. ) - Neuro Neuro: No motor deficit, No sensory deficit. No: Alert and oriented X 3, Normal speech Eye Opening: To Pain Motor: Localizes to Pain Verbal: Inappropriate GCS Score: 10 - Psych Psych: Normal affect (seems restless) Results - Vitals Vitals: Vital Signs - 24 hr 08/31/21 08/31/21 08/31/21 07:33 07:40 09:36 Temperature 36 C L 35.8 C L Heart Rate 62 59 L 52 L Respiratory 18 17 13 Rate Blood Pressure 118/64 118/64 99/55 L O2 Saturation 96 99 100 08/31/21 11:20 Temperature Heart Rate 69 Respiratory 16 Rate Blood Pressure 155/103 H O2 Saturation 100 Oxygen O2 Source [With Activity] Room air O2 Source [Without Activity] Room air O2 Source Room air - EKG (time done) 08:28 Rate: Rate (enter#) (62) Rhythm: NSR [place]: LAD Intervals: Normal VA, RBBB Ischemia: Normal ST segments, Non specific changes. No: ST elevation c/w ischemia - Labs Labs: Laboratory Tests 08/31/21 08/31/21 08/31/21 08:15 08:31 08:31 WBC 11.7 H RBC 4.79 Hgb 14.4 Hct 43.3 MCV 90.4 MCH 30.1 MCHC 33.3 RDW 14.1 Plt Count 277 MPV 10.8 Neut # (Auto) 8.4 H Lymph # (Auto) 2.4 Crane # (Auto) 0.8 Eos # (Auto) 0.0 Baso # (Auto) 0.1 Absolute Nucleated RBC 0.00 Nucleated RBC % 0.0 Sodium 143 Potassium 3.6 Chloride 100 L Carbon Dioxide 29 Anion Gap 14.0 H BUN 33 H Creatinine 1.2 H Estimated GFR (MDRD) 45 L Glucose 91 Lactic Acid Calcium 9.9 Magnesium 2.1 Total Bilirubin 0.6 AST 18 ALT 18 Alkaline Phosphatase 138 H Total Protein 8.1 Albumin 4.2 Globulin 3.9 Albumin/Globulin Ratio 1.1 Lipase 69 H Vitamin B12 TSH Urine Color YELLOW Urine Clarity HAZY Urine pH 6.0 Ur Specific Davin 1.015 Urine Protein NEGATIVE Urine Glucose (UA) NEGATIVE Urine Ketones NEGATIVE Urine Occult Blood TRACE-LYSE Urine Nitrite POSITIVE H Urine Bilirubin NEGATIVE Urine Urobilinogen 0.2 (NORMAL) Ur Leukocyte Esterase NEGATIVE Urine RBC 0-5 Urine WBC 6-10 H Ur Squamous Epith Cells RARE Squamous Urine Bacteria Moderate H Ur Microscopic Review INDICATED Urine Culture Comments INDICATED Nasal Adenovirus (PCR) Nasal B. parapertussis DNA (PCR) Nasal Coronavir 229E PCR Nasal Coronavir HKU1 PCR Nasal Coronavir NL63 PCR Nasal Coronavir OC43 PCR Nasal Enterovir/Rhinovir PCR Nasal Influenza B PCR Nasal Influenza A PCR Nasal Parainfluen 1 PCR Nasal Parainfluen 2 PCR Nasal Parainfluen 3 PCR Nasal Parainfluen 4 PCR Nasal RSV (PCR) Nasal B.pertussis DNA PCR Nasal C.pneumoniae (PCR) Jaya Human Metapneumo PCR Nasal M.pneumoniae (PCR) Nasal SARS-CoV-2 (PCR) Salicylates < 6.0 Urine Opiates Screen NEGATIVE Ur Oxycodone Screen NEGATIVE Urine Methadone Screen NEGATIVE Ur Propoxyphene Screen NEGATIVE Acetaminophen < 10 L Ur Barbiturates Screen NEGATIVE Ur Tricyclics Screen NEGATIVE Ur Phencyclidine Scrn NEGATIVE Ur Amphetamine Screen NEGATIVE U Methamphetamines Scrn NEGATIVE U Benzodiazepines Scrn NEGATIVE Urine Cocaine Screen NEGATIVE U Cannabinoids Screen NEGATIVE Ethyl Alcohol < 5.0 08/31/21 08/31/21 08/31/21 08:31 08:31 09:27 WBC RBC Hgb Hct MCV MCH MCHC RDW Plt Count MPV Neut # (Auto) Lymph # (Auto) Crane # (Auto) Eos # (Auto) Baso # (Auto) Absolute Nucleated RBC Nucleated RBC % Sodium Potassium Chloride Carbon Dioxide Anion Gap BUN Creatinine Estimated GFR (MDRD) Glucose Lactic Acid 1.7 Calcium Magnesium Total Bilirubin AST ALT Alkaline Phosphatase Total Protein Albumin Globulin Albumin/Globulin Ratio Lipase Vitamin B12 295 TSH 0.42 Urine Color Urine Clarity Urine pH Ur Specific Davin Urine Protein Urine Glucose (UA) Urine Ketones Urine Occult Blood Urine Nitrite Urine Bilirubin Urine Urobilinogen Ur Leukocyte Esterase Urine RBC Urine WBC Ur Squamous Epith Cells Urine Bacteria Ur Microscopic Review Urine Culture Comments Nasal Adenovirus (PCR) Nasal B. parapertussis DNA (PCR) Nasal Coronavir 229E PCR Nasal Coronavir HKU1 PCR Nasal Coronavir NL63 PCR Nasal Coronavir OC43 PCR Nasal Enterovir/Rhinovir PCR Nasal Influenza B PCR Nasal Influenza A PCR Nasal Parainfluen 1 PCR Nasal Parainfluen 2 PCR Nasal Parainfluen 3 PCR Nasal Parainfluen 4 PCR Nasal RSV (PCR) Nasal B.pertussis DNA PCR Nasal C.pneumoniae (PCR) Jaya Human Metapneumo PCR Nasal M.pneumoniae (PCR) Nasal SARS-CoV-2 (PCR) Salicylates Urine Opiates Screen Ur Oxycodone Screen Urine Methadone Screen Ur Propoxyphene Screen Acetaminophen Ur Barbiturates Screen Ur Tricyclics Screen Ur Phencyclidine Scrn Ur Amphetamine Screen U Methamphetamines Scrn U Benzodiazepines Scrn Urine Cocaine Screen U Cannabinoids Screen Ethyl Alcohol 08/31/21 14:10 WBC RBC Hgb Hct MCV MCH MCHC RDW Plt Count MPV Neut # (Auto) Lymph # (Auto) Crane # (Auto) Eos # (Auto) Baso # (Auto) Absolute Nucleated RBC Nucleated RBC % Sodium Potassium Chloride Carbon Dioxide Anion Gap BUN Creatinine Estimated GFR (MDRD) Glucose Lactic Acid Calcium Magnesium Total Bilirubin AST ALT Alkaline Phosphatase Total Protein Albumin Globulin Albumin/Globulin Ratio Lipase Vitamin B12 TSH Urine Color Urine Clarity Urine pH Ur Specific Davin Urine Protein Urine Glucose (UA) Urine Ketones Urine Occult Blood Urine Nitrite Urine Bilirubin Urine Urobilinogen Ur Leukocyte Esterase Urine RBC Urine WBC Ur Squamous Epith Cells Urine Bacteria Ur Microscopic Review Urine Culture Comments Nasal Adenovirus (PCR) NOT DETECTED Nasal B. parapertussis DNA (PCR) NOT DETECTED Nasal Coronavir 229E PCR NOT DETECTED Nasal Coronavir HKU1 PCR NOT DETECTED Nasal Coronavir NL63 PCR NOT DETECTED Nasal Coronavir OC43 PCR NOT DETECTED Nasal Enterovir/Rhinovir PCR NOT DETECTED Nasal Influenza B PCR NOT DETECTED Nasal Influenza A PCR NOT DETECTED Nasal Parainfluen 1 PCR NOT DETECTED Nasal Parainfluen 2 PCR NOT DETECTED Nasal Parainfluen 3 PCR NOT DETECTED Nasal Parainfluen 4 PCR NOT DETECTED Nasal RSV (PCR) NOT DETECTED Nasal B.pertussis DNA PCR NOT DETECTED Nasal C.pneumoniae (PCR) NOT DETECTED Jaya Human Metapneumo PCR NOT DETECTED Nasal M.pneumoniae (PCR) NOT DETECTED Nasal SARS-CoV-2 (PCR) NOT DETECTED Salicylates Urine Opiates Screen Ur Oxycodone Screen Urine Methadone Screen Ur Propoxyphene Screen Acetaminophen Ur Barbiturates Screen Ur Tricyclics Screen Ur Phencyclidine Scrn Ur Amphetamine Screen U Methamphetamines Scrn U Benzodiazepines Scrn Urine Cocaine Screen U Cannabinoids Screen Ethyl Alcohol - Rads (name of study) head CT Radiology: Prelim report reviewed (no ICH nor acute process. Prior old CVA noted. ), See rad report cervical CT Radiology: Prelim report reviewed (no fractures), See rad report chest xray Radiology: Prelim report reviewed (no infiltrates), See rad report PD MEDICAL DECISION MAKING - ED course Complexity details: reviewed old records (similar presentations in the past due to substance abuse (pseudofed).), re-evaluated patient (SEveral hours and the patient is still not able to talk coherently, and is somnolent and confused. Presume medication/substance related as seems more delerium. Does have UTI but does not seem septic per se. ), considered differential, d/w patient - Critical Care Time(min): 50 Time Includes: Direct patient care, Document care, Coordinate care, Medical consult Data interpretation: Labs, CXR Procedures excluded from critical care time: EKG Departure - Departure Disposition: ED Place in Observation Clinical Impression: Altered mental status Qualifiers: Altered mental status type: delirium Qualified Code(s): R41.0 - Disorientation, unspecified UTI (urinary tract infection) Qualifiers: Urinary tract infection type: acute cystitis Hematuria presence: without hematuria Qualified Code(s): N30.00 - Acute cystitis without hematuria Condition: Stable Record reviewed to determine appropriate education?: Yes Discharge Date/Time: 08/31/21 15:03
[2021-08-31] MEDS ORDERED: SODIUM CHLORIDE 0.9% 1,000 ML IV STA (07:48)
[2021-08-31] MEDS ORDERED: LORazepam 2 MG/ML VIAL IVP STA (08:08)
[2021-08-31 08:36] LABS: BASOPHILS # (AUTO) 0.1 10^3/uL (0.0-0.1); BASOPHILS % (AUTO) 0.9 %; HCT - HEMATOCRIT 43.3 % (37.0-47.0); HGB - HEMOGLOBIN 14.4 g/dL (12.0-16.0); LYMPHOCYTES # (AUTO) 2.4 10^3/uL (1.5-3.5); LYMPHOCYTES % (AUTO) 20.4 %; MEAN CORPUSCULAR HEMOGLOBIN 30.1 pg (27.0-31.0); MEAN CORPUSCULAR HGB CONC 33.3 g/dL (32.0-36.0); MEAN CORPUSCULAR VOLUME 90.4 fL (81.0-99.0); MEAN PLATELET VOLUME 10.8 fL (7.9-10.8); MONOCYTES # (AUTO) 0.8 10^3/uL (0.0-1.0); MONOCYTES % (AUTO) 6.5 %; NEUTROPHILS # (AUTO) 8.4 10^3/uL (1.5-6.6); PLT - PLATELET COUNT 277 10^3/uL (130-450); RED BLOOD COUNT 4.79 10^6/uL (4.20-5.40); RED CELL DISTRIBUTION WIDTH 14.1 % (12.0-15.0); WHITE BLOOD COUNT 11.7 x10^3/uL (4.8-10.8)
[2021-08-31 08:47] LABS: MUDS CUTOFF CONCENTRATIONS CUTOFF CONC BELOW:
[2021-08-31 08:50] LABS: BILIRUBIN,URINE NEGATIVE (NEGATIVE); GLUCOSE, URINE (UA) NEGATIVE (NEGATIVE); KETONES,URINE (UA) NEGATIVE (NEGATIVE); LEUKOCYTE ESTERASE, URINE NEGATIVE (NEGATIVE); NITRITE,URINE POSITIVE (NEGATIVE); OCCULT BLOOD,URINE TRACE-LYSE (NEGATIVE); PROTEIN,URINE NEGATIVE (NEGATIVE); UROBILINOGEN,URINE 0.2 (NORMAL) E.U./dL (NORMAL)
[2021-08-31 08:52] LABS: CLARITY,URINE HAZY (CLEAR)
[2021-08-31 09:01] LABS: AMPHETAMINE SCREEN,URINE NEGATIVE (NEGATIVE); BACTERIA,URINE Moderate /HPF (None Seen); BARBITURATE SCREEN,UR NEGATIVE (NEGATIVE); BENZODIAZEPINES SCREEN, URINE NEGATIVE (NEGATIVE); COCAINE SCREEN URINE NEGATIVE (NEGATIVE); METHADONE SCREEN, URINE NEGATIVE (NEGATIVE); METHAMPHETAMINES SCREEN, URINE NEGATIVE (NEGATIVE); OPIATE SCREEN, URINE NEGATIVE (NEGATIVE); OXYCODONE SCREEN, URINE NEGATIVE (NEGATIVE); PROPOXYPHENE SCREEN, URINE NEGATIVE (NEGATIVE); RBC,URINE 0-5 /HPF (0-5); SQUAMOUS EPITHELIAL CELL,UR RARE Squamous (<= Few); THC CANNABINOID SCREEN, URINE NEGATIVE (NEGATIVE); TRICYCLIC ANTIDEPRESSANT,URINE NEGATIVE (NEGATIVE)
[2021-08-31 09:01] LABS: ACETAMINOPHEN < 10 ug/mL (10-30); ALBUMIN 4.2 g/dL (3.2-5.5); ALBUMIN/GLOBULIN RATIO 1.1 (1.0-2.2); ALKALINE PHOSPHATASE 138 IU/L (42-121); ALT ALANINE AMINOTRANSFERASE 18 IU/L (10-60); AST ASPARTATE AMINOTRANSFERASE 18 IU/L (10-42); BILIRUBIN,TOTAL 0.6 mg/dL (0.2-1.0); BUN - BLOOD UREA NITROGEN 33 mg/dL (6-20); CALCIUM 9.9 mg/dL (8.5-10.3); CARBON DIOXIDE - CO2 29 mmol/L (21-32); CHLORIDE 100 mmol/L (101-111); CREATININE 1.2 mg/dL (0.4-1.0); ETOH - ETHANOL < 5.0 mg/dL; GFR - MDRD 45 (>89); GLUCOSE 91 mg/dL (70-100); LIPASE 69 U/L (22-51); MAGNESIUM 2.1 mg/dL (1.7-2.8); POTASSIUM 3.6 mmol/L (3.5-5.0); SALICYLATE < 6.0 mg/dL; SODIUM 143 mmol/L (135-145); TOTAL PROTEIN 8.1 g/dL (6.7-8.2)
--- NOTE | 2021-08-31 09:02 | CT Report ---
PROCEDURE: HEAD WO INDICATIONS: fall/confused TECHNIQUE: Noncontrast 4.5 mm thick angled axial sections acquired from the foramen magnum to the vertex. For r adiation dose reduction, the following was used: automated exposure control, adjustment of mA and/or kV according to patient size. COMPARISON: Prior head CT studies FINDINGS: Image quality: Excellent. CSF spaces: Basal cisterns are patent. No extra-axial fluid collections. Ventricles are normal in size and shape. Brain: Remote left basal ganglia infarct. No midline shift. No intracranial masses or hemorrhage. Zavaleta-white matter interface is normal. Skull and face: Calvarium and visualized facial bones are intact, without suspicious lesions. Sinuses: Visualized sinuses and mastoids are clear. IMPRESSION: No acute intracranial abnormality. Remote left basal ganglia infarct. Reviewed by: Phillip Gutierrez MD on 08/31/2021 9:01 AM PDT Approved by: Phillip Gutierrez MD on 08/31/2021 9:01 AM PDT Station ID: [id number]
--- NOTE | 2021-08-31 09:09 | CT Report ---
PROCEDURE: CERVICAL SPINE WO INDICATIONS: fall/ confused/neck pain TECHNIQUE: Noncontrast 3 mm thick sections acquired from the skull base to the T4 level. Sagittal and coronal r eformats were then constructed. For radiation dose reduction, the following was used: automated exp osure control, adjustment of mA and/or kV according to patient size. COMPARISON: Multiple prior cervical spine CT studies. FINDINGS: There is no fracture identified, with the limitation that there is some motion artifact. Alignment is normal. There are [id number] degenerative changes at every level in the cervical spine from C3 -C4 through C7-T1. No suspicious lytic or blastic osseous lesion. Prevertebral and paraspinous soft t issues are grossly normal. IMPRESSION: No CT evidence of acute traumatic cervical spine injury. Reviewed by: Phillip Gutierrez MD on 08/31/2021 9:08 AM PDT Approved by: Phillip Gutierrez MD on 08/31/2021 9:08 AM PDT Station ID: [id number]
--- NOTE | 2021-08-31 09:12 | XRAY Report ---
PROCEDURE: Chest 1 View X-Ray INDICATIONS: Chest pain TECHNIQUE: One view of the chest was acquired. COMPARISON: None. FINDINGS: Surgical changes and devices: None. Lungs and pleura: No pleural effusions or pneumothorax. Lungs are clear. Mediastinum: Mediastinal contours appear normal. Heart size is normal. Bones and chest wall: No suspicious bony lesions. Overlying soft tissues appear unremarkable. IMPRESSION: No acute cardiopulmonary process demonstrated radiographically. Reviewed by: Phillip Gutierrez MD on 08/31/2021 9:11 AM PDT Approved by: Phillip Gutierrez MD on 08/31/2021 9:11 AM PDT Station ID: [id number]
[2021-08-31] MEDS ORDERED: cefTRIAXone 1 GM VIAL IVP STA (09:18)
[2021-08-31] MEDS ORDERED: LACTATED RINGERS 1,000 ML IV STA (10:22)
[2021-08-31] MEDS ORDERED: SODIUM CHLORIDE FLUSH 0.9% 10 ML SYRINGE IVP PRN (14:07)
[2021-08-31] MEDS ORDERED: ONDANSETRON 4 MG/2 ML VIAL IVP PRN (14:07)
[2021-08-31] MEDS ORDERED: ALBUTEROL NEB 2.5 MG/3 ML INH PRN (14:28)
--- NOTE | 2021-08-31 14:41 | HISTORY & PHYSICAL EXAMINATION ---
Chief Complaint - Chief Complaint Chief Complaint: AMS History of Present Illness - Admitted From Admitted From:: medical floor - History Obtained From Records Reviewed: [facility], ER notes History obtained from: ER notes Exam Limitations: very limited due to pt's AMS - History of Present Illness HPI Comment/Other: This is a 65-years old female with a past medical history significant noted for Multiple admission for encephalopathy, CKD, history of seizure disorder, positive toxicity screening for amphetamines suspect for abuse, multiple sclerosis, hypothyroidism and psoriasis, frequent UTI infection with multiple resistance bacteria, Who present to the ER for evaluation patient's acute encephalopathy. pt is alert but she keep silent when asking any questions to her. Pt was reported to have unwitness ground level of fall. EMS reports pt was found down outside approximate about 1hr. No injuries was notable, C-collar was placed for pt. Per ER provider, patient was placed in the ER for over 6 hours, patient was given antibiotics and IV fluids but patient still present confusion. So medical team was consulted for admission in observation unit. CT of head, cervical spine, chest x-ray all are unremarkable for acute process. Routine laboratory test significantly show WBC 12, creatinine 1.2, BUN 33, anion gap 14, Urinalysis show positive for nitrate, WBC 6-10, moderate bacteria in the UA. In the ER, patient is afebrile, otherwise patient is hemodynamic stable. I am unable to discuss the care goal due to her altered mental status, and will default to full code now. History - Past Medical History Cardiovascular: reports: Hypertension, Coronary artery disease, [place] Respiratory: reports: None Neuro: reports: Multiple sclerosis Endocrine/Autoimmune: reports: Other GI: reports: None CARE PROCESS MANAGER: reports: Other : reports: Chronic bladder infection HEENT: reports: None Psych: reports: Depression, ADD/ADHD Musculoskeletal: reports: Chronic back pain, Other Derm: reports: Other MRSA Hx?: No - Past Surgical History Ortho: reports: Spine surgery /CARE PROCESS MANAGER: reports: Hysterectomy - Family & Social History Family History Comment/Other: Unable to update this family history but below is the family history from last admission which was obtained from her niece, Latisha. The patient has been adopted by a stepfather and he is still alive in his 80s. Her father of bone cancer when she was a very little girl. Mom is and of heart disease but had lung cancer before she . 1 brother of the same bone cancer that his father of. 1 brother is a live but has A. fib. No sisters. No children. Living Situation: Alone Social History Notes: Unable to update the social history given her encephalop athy but review of prior review of systems revealed that she is a smoker and does not have a history of alcohol abuse. She has a history of illicit drug use, probably LSD back in the 1970s. - Substance History Use: Uses substance without health or social issues: Tobacco - POLST Patient has POLST: No POLST Status: Full Code Meds/Allgy - Home Medications Home Medications: Ambulatory Orders Medication Instructions Recorded Confirmed Baclofen 10 mg PO QID 07/18/19 04/16/21 Glucos Sul 2Kcl/MSM/Chond/C/Mn 1 cap PO DAILY 07/18/19 04/16/21 [Glucosamine Chondroitin Cap] Levothyroxine Sodium 50 mcg PO DAILY 07/18/19 04/16/21 Multivitamin/Iron/Folic Acid 1 ea ORAL DAILY 07/18/19 04/16/21 [Centrum Women Tablet] Acetaminophen [Tylenol] 650 mg PO Q4HR PRN 06/15/20 04/16/21 Calcium Carbonate/Vitamin D3 1 each PO DAILY 12/09/20 04/16/21 [Calcium 500Mg-Vit D3 15Mcg Tab] Atorvastatin [Lipitor] 40 mg PO QPM #0 12/21/20 04/16/21 Clobetasol 0.05% Oint [Temovate 1 applic TOP BID 12/21/20 04/16/21 0.05% Oint] Clopidogrel [Plavix] 75 mg PO DAILY #0 12/21/20 04/16/21 Metoprolol Succinate [Toprol Xl] 25 mg PO BID #0 12/21/20 04/16/21 Furosemide [Lasix] 20 mg PO DAILY 02/12/21 04/16/21 Potassium Chloride [Klor-Con 10] 10 meq PO DAILY 02/12/21 04/16/21 Cetirizine [ZyrTEC] 10 mg PO DAILY 02/13/21 04/16/21 Cholecalciferol [Vitamin D3] 25 mcg PO DAILY 02/13/21 04/16/21 Albuterol Sulf [Ventolin Hfa 2 - 3 puffs INH Q4HR 10 Days #1 02/16/21 04/16/21 Inhaler] inhaler Levetiracetam [Keppra] 500 mg PO BID 04/16/21 04/16/21 - Allergies Allergies/Adverse Reactions: Allergies Allergy/AdvReac Type Severity Reaction Status Date / Time No Known Drug Allergies Allergy Verified 08/31/21 07:38 Review of Systems - All Other Systems All Other Systems: reports: Other (pt present AMS, could not answer ROS) Exam - Vital Signs Vital Signs: Vital Signs x48h Temp Pulse Resp BP Pulse Ox 08/31/21 11:20 69 16 155/103 H 100 08/31/21 09:36 52 L 13 99/55 L 100 08/31/21 07:40 35.8 C L 59 L 17 118/64 99 08/31/21 07:33 36 C L 62 18 118/64 96 - Physical Exam General Appearance: positive: No acute distress, Alert. negative: Lethargic Eyes Bilateral: positive: Normal inspection, No lid inflammation ENT: positive: ENT inspection nml. negative: Purulent nasal drainage Neck: positive: Nml inspection, Trachea midline. negative: Tracheal deviation Respiratory: positive: Chest non-tender, No respiratory distress. negative: Wheezes Cardiovascular: positive: Regular rate & rhythm. negative: Tachycardia, Bradycardia, Systolic murmur Peripheral Pulses: positive: 2+ Abdomen: positive: Non-tender, Nml bowel sounds, No distention. negative: Tenderness Back: positive: Nml inspection Skin: positive: Color nml, Warm, Dry. negative: Cyanosis Extremities: positive: Non-tender, Full ROM, Nml appearance Neurologic/Psychiatric: positive: Sensation nml. negative: Weakness, Sensory loss, Facial droop, Slurred/abnml speech Conclusion/Plan - Problem List (1) Altered mental status Conclusion/Plan: Patient presents AMS, does not answer any questions. patient has a history of multiple times of encephalopathy. Patient drug screening is negative at this time. Urinalysis show infection. Patient has a history of multiple times of urinary tract infection with multiple drug resistance bacteria with encephalopathy. Patient also present mild dehydration at this time. CT of head show no acute process. We will check TSH, check vitamin B12, and Keppra serum concentration. We start with meropenem due to her hx of multiple drug resistance bacteria in UA culture. pt already had 1.5 liter of Fluid at ER, and hold home Lasix. continue neuro check, order blood culture for pt. Qualifiers: Altered mental status type: delirium Qualified Code(s): R41.0 - Disorientation, unspecified (2) UTI (urinary tract infection) Conclusion/Plan: pt's UA reveal positive nitrite, WBC and Bacteriuria, and slightly elevated WBC. We will start with antibiotics meropenem. add probiotics Qualifiers: Urinary tract infection type: acute cystitis Hematuria presence: without hematuria Qualified Code(s): N30.00 - Acute cystitis without hematuria (3) Hx of seizure disorder Conclusion/Plan: Patient has a history of seizure, we will resume patient home meds Keppra, Check Keppra serum concentration (4) CKD (chronic kidney disease) Conclusion/Plan: Patient has CKD stage III, creatinine 1.2 on today. Patient was already give 1.5 L intravenous IV fluids in the ER. 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
[2021-08-31] MEDS ORDERED: SODIUM CHLORIDE 0.9% 1,000 ML IV SCH (15:00)
[2021-08-31] MEDS: MEROPENEM 1 GM in SODIUM CHLORIDE 0.9% MINIBAG 100 ML IV SCH ×2 (16:02→23:52)
[2021-08-31] MEDS: SODIUM CHLORIDE 0.9% 1,000 ML IV SCH (16:02)
[2021-08-31] MEDS: SODIUM CHLORIDE FLUSH 0.9% 10 ML SYRINGE IVP SCH (16:03)
[2021-08-31 16:09] LABS: B. PARAPERTUSSIS- RESP PCR PAN NOT DETECTED; B. PERTUSSIS- RESP PCR PANEL NOT DETECTED; C. PNEUMONIAE- RESP PCR PANEL NOT DETECTED; CORONAVIRUS 229E-RESP PCR NOT DETECTED; CORONAVIRUS HKU1-RESP PCR NOT DETECTED; CORONAVIRUS NL63-RESP PCR NOT DETECTED; CORONAVIRUS OC43-RESP PCR NOT DETECTED; HUMAN METAPNEUMOVIRUS NOT DETECTED; INFLUENZA A- RESP PCR PANEL NOT DETECTED; INFLUENZA B - RESP PCR PANEL NOT DETECTED; M. PNEUMONIAE- RESP PCR PANEL NOT DETECTED; PARAINFLUENZA VIRUS 1 NOT DETECTED; PARAINFLUENZA VIRUS 2 NOT DETECTED; PARAINFLUENZA VIRUS 3 NOT DETECTED; PARAINFLUENZA VIRUS 4 NOT DETECTED; RHINOVIRUS/ENTEROVIRUS NOT DETECTED; RSV- RESP PCR PANEL NOT DETECTED; SARS-CoV-2 -RESP PCR PANEL NOT DETECTED
[2021-08-31] MEDS: SACCHAROMYCES BOULARDII 250 MG CAPSULE PO SCH (17:19)
[2021-08-31] MEDS: ATORVASTATIN 40 MG TABLET PO SCH (21:19)
[2021-08-31] MEDS: levETIRAcetam 250 MG TABLET PO SCH (21:19)
[2021-08-31] MEDS: METOPROLOL SUCCINATE 25 MG TABLET PO SCH (21:19)
[2021-09-01] MEDS: SODIUM CHLORIDE FLUSH 0.9% 10 ML SYRINGE IVP SCH ×3 (01:51→18:37)
[2021-09-01 05:52] LABS: BASOPHILS # (AUTO) 0.1 10^3/uL (0.0-0.1); BASOPHILS % (AUTO) 0.9 %; HCT - HEMATOCRIT 38.4 % (37.0-47.0); HGB - HEMOGLOBIN 12.9 g/dL (12.0-16.0); LYMPHOCYTES # (AUTO) 1.6 10^3/uL (1.5-3.5); LYMPHOCYTES % (AUTO) 18.5 %; MEAN CORPUSCULAR HEMOGLOBIN 30.6 pg (27.0-31.0); MEAN CORPUSCULAR HGB CONC 33.6 g/dL (32.0-36.0); MEAN PLATELET VOLUME 10.8 fL (7.9-10.8); MONOCYTES # (AUTO) 0.7 10^3/uL (0.0-1.0); MONOCYTES % (AUTO) 8.6 %; NEUTROPHILS # (AUTO) 6.2 10^3/uL (1.5-6.6); NEUTROPHILS % (AUTO) 71.9 %; PLT - PLATELET COUNT 263 10^3/uL (130-450); RED BLOOD COUNT 4.22 10^6/uL (4.20-5.40); RED CELL DISTRIBUTION WIDTH 14.5 % (12.0-15.0); WHITE BLOOD COUNT 8.7 x10^3/uL (4.8-10.8)
[2021-09-01 05:59] LABS: CALCIUM 9.1 mg/dL (8.5-10.3)
[2021-09-01] MEDS: SODIUM CHLORIDE 0.9% 1,000 ML IV SCH (08:18)
[2021-09-01] MEDS: MEROPENEM 1 GM in SODIUM CHLORIDE 0.9% MINIBAG 100 ML IV SCH ×2 (08:44→18:41)
[2021-09-01] MEDS: SACCHAROMYCES BOULARDII 250 MG CAPSULE PO SCH ×2 (08:44→18:37)
[2021-09-01] MEDS: CLOPIDOGREL 75 MG TABLET PO SCH (08:45)
[2021-09-01] MEDS: levETIRAcetam 250 MG TABLET PO SCH ×2 (08:45→20:50)
[2021-09-01] MEDS: ENOXAPARIN 40 MG/0.4 ML SYRINGE SUBQ SCH (08:49)
[2021-09-01] MEDS: METOPROLOL SUCCINATE 25 MG TABLET PO SCH ×2 (08:50→20:50)
--- NOTE | 2021-09-01 12:11 | PROVIDER PROGRESS NOTE ---
Subjective - Prog Note Date Prog Note Date: 09/01/21 Prog Note Time: 12:07 - Subjective Subjective: She is definitely awake, verbal, yelling. For instance she screamed at me to come into the room. I was walking past her doorway. When I walked in the room to assess her and asked if she needed anything she then wanted to know why I was there. I explained to her that I came in at her invitation. She then kept on yelling "what, what, what do you want". I explained to her that I did not want anything. Again I reiterated that she invited me in and was there anything she needed. She told me she did not want anything. Nursing then contacted me 3 hours later stating the patient ripped out her IV. I reassessed the patient. She knows that she is at [facility]. She knows the month and the year. She does not know why she is here. "Someone just call them on me and brought me here". She keeps on saying that she has a bloody elbow from where she ripped out the IV. I then explained to her that she has another urinary tract infection. I used layman's terms and explained to her that she had bacteria that is severely resistant to many medications. Right now we are forced to use IV medications. I asked if she could please let us do an IV to treat the infection until we know for can change her to pills. At this moment in time she states that yes she will let us put in another IV. Current Medications - Current Medications Current Medications: Active Medications Acetaminophen (Acetaminophen 325 Mg Tablet) 650 mg PO Q4HR PRN PRN Reason: Pain 1 to 4, or Fever Albuterol (Albuterol Neb 2.5 Mg/3 Ml) 2.5 mg INH RTQ4H PRN PRN Reason: Wheezing Atorvastatin Calcium (Atorvastatin 40 Mg Tablet) 40 mg PO QPM [facility] Last Admin: 08/31/21 21:19 Dose: 40 mg Clopidogrel Bisulfate (Clopidogrel 75 Mg Tablet) 75 mg PO DAILY [facility] Last Admin: 09/01/21 08:45 Dose: 75 mg Enoxaparin Sodium (Enoxaparin 40 Mg/0.4 Ml Syringe) 40 mg SUBQ DAILY [facility] Last Admin: 09/01/21 08:49 Dose: 40 mg Meropenem 1 gm/ Sodium (Chloride) 100 mls @ 200 mls/hr IV Q8H [facility] Last Infusion: 09/01/21 09:40 Dose: Infused Sodium Chloride (Normal Saline 0.9%) 1,000 mls @ 83.333 mls/hr IV .Q12H [facility] Stop: 09/01/21 15:59 Last Admin: 09/01/21 08:18 Dose: 83.333 mls/hr Levetiracetam (Levetiracetam 250 Mg Tablet) 500 mg PO BID [facility] Last Admin: 09/01/21 08:45 Dose: 500 mg Metoprolol Succinate (Metoprolol Succinate 25 Mg Tablet) 25 mg PO BID [facility] Last Admin: 09/01/21 08:50 Dose: Not Given Ondansetron HCl (Ondansetron 4 Mg/2 Ml Vial) 4 mg IVP Q6HR PRN PRN Reason: Nausea / Vomiting Saccharomyces Boulardii (Saccharomyces Boulardii 250 Mg Capsule) 250 mg PO BIDWM [facility] Last Admin: 09/01/21 08:44 Dose: 250 mg Sodium Chloride (Sodium Chloride Flush 0.9% 10 Ml Syringe) 10 ml IVP PRN PRN PRN Reason: NEEDED PER PROVIDER ORDERS Sodium Chloride (Sodium Chloride Flush 0.9% 10 Ml Syringe) 10 ml IVP 0100,0900,1700 [facility] Last Admin: 09/01/21 01:51 Dose: Not Given Baclofen 15 mg PO QID 07/18/19 Glucos Sul 2Kcl/MSM/Chond/C/Mn [Glucosamine Chondroitin Cap] 1 cap PO DAILY 07/18/19 Levothyroxine Sodium 50 mcg PO QDAC 07/18/19 Multivitamin/Iron/Folic Acid [Centrum Women Tablet] 1 ea ORAL DAILY 07/18/19 Calcium Carbonate/Vitamin D3 [Calcium 500Mg-Vit D3 15Mcg Tab] 1 each PO DAILY 12/09/20 Furosemide [Lasix] 10 mg PO DAILY 02/12/21 Potassium Chloride [Klor-Con 10] 10 meq PO DAILY 02/12/21 Cetirizine [ZyrTEC] 10 mg PO DAILY PRN 02/13/21 Cholecalciferol [Vitamin D3] 25 mcg PO DAILY 02/13/21 Levetiracetam [Keppra] 500 mg PO BID 04/16/21 Metoprolol Succinate [Toprol Xl] 25 mg PO DAILY 08/31/21 Objective - Vital Signs/Intake & Output Reviewed Vital Signs: Yes Vital Signs: Vital Signs x48h Temp Pulse Resp BP Pulse Ox 09/01/21 08:17 36.6 C 102 H 18 94/54 L 98 09/01/21 05:48 36.5 C 78 19 112/54 L 94 Intake & Output: Intake & Output 08/29/21 08/30/21 08/31/21 09/01/21 23:59 23:59 23:59 23:59 Intake Total 2100 1440 Output Total 700 Balance 1400 1440 - Objective General Appearance: positive: Alert, Other (A dentulous female who looks older than stated age, eating her lunch using her right hand. Alert, very verbal, speaking and demanding request in a very loud voice that is audible down the hallway. She is in room 06/07/2006 and you can hear her at the [employer] station through closed doors.) Eyes Bilateral: positive: PERRL, EOMI ENT: positive: No signs of dehydration Neck: positive: No JVD Respiratory: positive: No respiratory distress. negative: Wheezes, Rales, Rhonchi Cardiovascular: positive: Regular rate & rhythm. negative: Gallop/S4, Friction rub Abdomen: positive: Non-tender, No organomegaly, Nml bowel sounds, No distention Skin: positive: Warm, Dry Extremities: positive: Full ROM, No pedal edema Neurologic/Psychiatric: positive: Oriented x3, CN's nml (2-12), Motor nml, Other (She is not hallucinating, she is not voicing to delusional thoughts. Flight of ideas, rapid erratic demands of nursing.) - Lab Results Fish Bones: 09/01/21 05:33 09/01/21 05:33 Other Labs: Lab Results x24hrs 09/01/21 09/01/21 09/01/21 Range/Units 05:33 05:33 05:33 WBC 8.7 (4.8-10.8) x10^3/uL RBC 4.22 (4.20-5.40) 10^6/uL Hgb 12.9 (12.0-16.0) g/dL Hct 38.4 (37.0-47.0) % MCV 91.0 (81.0-99.0) fL MCH 30.6 (27.0-31.0) pg MCHC 33.6 (32.0-36.0) g/dL RDW 14.5 (12.0-15.0) % Plt Count 263 (130-450) 10^3/uL MPV 10.8 (7.9-10.8) fL Neut # (Auto) 6.2 (1.5-6.6) 10^3/uL Lymph # (Auto) 1.6 (1.5-3.5) 10^3/uL [place]pson # (Auto) 0.7 (0.0-1.0) 10^3/uL Eos # (Auto) 0.0 (0.0-0.7) 10^3/uL Baso # (Auto) 0.1 (0.0-0.1) 10^3/uL Absolute Nucleated RBC 0.00 x10^3/uL Nucleated RBC % 0.0 /100WBC Sodium 145 (135-145) mmol/L Potassium 3.0 L (3.5-5.0) mmol/L Chloride 108 (101-111) mmol/L Carbon Dioxide 26 (21-32) mmol/L Anion Gap 11.0 (6-13) BUN 28 H (6-20) mg/dL Creatinine 1.0 (0.4-1.0) mg/dL Estimated GFR (MDRD) 56 L (>89) Glucose 98 (70-100) mg/dL Calcium 9.1 (8.5-10.3) mg/dL Vitamin B12 (180-914) pg/mL TSH 0.29 L (0.34-5.60) uIU/mL Nasal Adenovirus (PCR) Nasal B. parapertussis DNA (PCR) Nasal Coronavir 229E PCR Nasal Coronavir HKU1 PCR Nasal Coronavir NL63 PCR Nasal Coronavir OC43 PCR Nasal Enterovir/Rhinovir PCR Nasal Influenza B PCR Nasal Influenza A PCR Nasal Parainfluen 1 PCR Nasal Parainfluen 2 PCR Nasal Parainfluen 3 PCR Nasal Parainfluen 4 PCR Nasal RSV (PCR) Nasal B.pertussis DNA PCR Nasal C.pneumoniae (PCR) Jaya Human Metapneumo PCR Nasal M.pneumoniae (PCR) Nasal SARS-CoV-2 (PCR) 08/31/21 08/31/21 Range/Units 14:10 08:31 WBC (4.8-10.8) x10^3/uL RBC (4.20-5.40) 10^6/uL Hgb (12.0-16.0) g/dL Hct (37.0-47.0) % MCV (81.0-99.0) fL MCH (27.0-31.0) pg MCHC (32.0-36.0) g/dL RDW (12.0-15.0) % Plt Count (130-450) 10^3/uL MPV (7.9-10.8) fL Neut # (Auto) (1.5-6.6) 10^3/uL Lymph # (Auto) (1.5-3.5) 10^3/uL Upson # (Auto) (0.0-1.0) 10^3/uL Eos # (Auto) (0.0-0.7) 10^3/uL Baso # (Auto) (0.0-0.1) 10^3/uL Absolute Nucleated RBC x10^3/uL Nucleated RBC % /100WBC Sodium (135-145) mmol/L Potassium (3.5-5.0) mmol/L Chloride (101-111) mmol/L Carbon Dioxide (21-32) mmol/L Anion Gap (6-13) BUN (6-20) mg/dL Creatinine (0.4-1.0) mg/dL Estimated GFR (MDRD) (>89) Glucose (70-100) mg/dL Calcium (8.5-10.3) mg/dL Vitamin B12 295 (180-914) pg/mL TSH (0.34-5.60) uIU/mL Nasal Adenovirus (PCR) NOT DETECTED Nasal B. parapertussis DNA (PCR) NOT DETECTED Nasal Coronavir 229E PCR NOT DETECTED Nasal Coronavir HKU1 PCR NOT DETECTED Nasal Coronavir NL63 PCR NOT DETECTED Nasal Coronavir OC43 PCR NOT DETECTED Nasal Enterovir/Rhinovir PCR NOT DETECTED Nasal Influenza B PCR NOT DETECTED Nasal Influenza A PCR NOT DETECTED Nasal Parainfluen 1 PCR NOT DETECTED Nasal Parainfluen 2 PCR NOT DETECTED Nasal Parainfluen 3 PCR NOT DETECTED Nasal Parainfluen 4 PCR NOT DETECTED Nasal RSV (PCR) NOT DETECTED Nasal B.pertussis DNA PCR NOT DETECTED Nasal C.pneumoniae (PCR) NOT DETECTED Jaya Human Metapneumo PCR NOT DETECTED Nasal M.pneumoniae (PCR) NOT DETECTED Nasal SARS-CoV-2 (PCR) NOT DETECTED ABX Reporting Has patient been on IV antibiotics over the past 48 hours?: Yes Assessment/Plan - Problem List (1) Altered mental status Impression: Many admissions for this unfortunate elderly female who lives independently in her own apartment. Unfortunate she has been unable to follow through with home and community services evaluation. Those appointments were made as far back as June. We were hoping that she would be able to get some services to keep her at home to age independently. She is back with us again with altered mental status and yet another urinary tract infection. Hx of Multiple admissions for encephalopathy. Drug screen is negative. Today she has ripped out her IV several times. I just spoke to her again and explained to her that she is here for urinary tract infection with resistant bacteria. I used layman's terms. At this moment in time she is amenable to getting another IV put in to give her IV antibiotics. She is received IV fluid resuscitation. Other than IV antibiotics I will stop all IV medications and hopefully she will let us keep the IV in. Plan: Continue meropenem until we find out the sensitivities of this bacteria and then change antibiotics appropriately. I am so hoping we can find an oral equivalent. She is oriented to person, place, but not clearly understanding why she is here. Unfortunately, if she continues to be a danger to self and that she keeps on pulling at her IV and we cannot deliver therapy, I may have to use restraints. At this point in time she is amenable. I will [place] back to nursing to find out how she is doing Qualifiers: Altered mental status type: delirium Qualified Code(s): R41.0 - Disorientation, unspecified (2) UTI (urinary tract infection) Conclusion/Plan: pt's UA reveal positive nitrite, WBC and Bacteriuria, and slightly elevated WBC. Day #2 meropenem. on probiotics Qualifiers: Urinary tract infection type: acute cystitis Hematuria presence: without hematuria Qualified Code(s): N30.00 - Acute cystitis without hematuria (3) Hx of seizure disorder Conclusion/Plan: Patient has a history of seizure, we have resumed patient home meds Keppra, And Keppra serum concentration level drawn yesterday. Results pending. (4) CKD (chronic kidney disease) Conclusion/Plan: Baseline creatinine 0.8. Admission creatinine 1.2. Today's creatinine 1.0.IV fluids. I am considering stopping her IV fluids to avoid annoying her with the IV in her arm. She appears to be having good oral intake of food. (5) HTN (hypertension) Conclusion/Plan: Patient has history of hypertension, Blood pressure is 94 systolic 122 systolic. She is on Toprol-XL at home and we have resume that here. She also usually gets Lasix at home but we have held that. Heart rate is not bradycardic. So I will continue to watch her blood pressure carefully to make sure there are no other causes for hypotension. (6) Hypothyroidism Conclusion/Plan: States she is over suppressed at 0.42 and 0.29.. She needs her Synthroid dose reduced. She is currently on 50 mcg. We will reduce to 37.5 mcg. Qualifiers: Qualified Code(s): R41.0 - Disorientation, unspecified
[2021-09-01] MEDS ORDERED: HALOPERIDOL 5 MG/ML VIAL IM STA (13:24)
--- NOTE | 2021-09-01 13:33 | PHARMACY PROGRESS NOTE ---
- Best Possible Medication History Admit Date and Time: 09/01/21 1236 Processed by: Pharmacy Medication History completed: Yes Patient Interview: Pt unable to participate Secondary Source(s): Physician records, Pharmacy records, Insurance records As the person ultimately responsible for medication therapy, providers are able to order a medication from an existing home medication list in [facility] via the "Reconcile Routine" prior to Confirmation of that medication by director decision support. Such practice is discouraged except when the physician, in their clinical judgment, deems that a medical need exists for a medication without regard to previous use.
[2021-09-01] MEDS ORDERED: POTASSIUM CHLORIDE 20 MEQ TABLET PO ONE (20:31)
[2021-09-01] MEDS: ATORVASTATIN 40 MG TABLET PO SCH (20:50)
[2021-09-01] MEDS ORDERED: POTASSIUM CHLOR 10 MEQ/100 ML 10 MEQ/100 ML BAG IV SCH (21:00)
[2021-09-02] MEDS: ACETAMINOPHEN 325 MG TABLET PO PRN ×4 (00:40→18:03)
[2021-09-02] MEDS: SODIUM CHLORIDE FLUSH 0.9% 10 ML SYRINGE IVP SCH ×3 (00:40→17:01)
[2021-09-02] MEDS: MEROPENEM 1 GM in SODIUM CHLORIDE 0.9% MINIBAG 100 ML IV SCH ×3 (03:52→18:27)
[2021-09-02 05:32] LABS: BASOPHILS # (AUTO) 0.1 10^3/uL (0.0-0.1); HCT - HEMATOCRIT 34.4 % (37.0-47.0); HGB - HEMOGLOBIN 11.4 g/dL (12.0-16.0); LYMPHOCYTES # (AUTO) 2.1 10^3/uL (1.5-3.5); LYMPHOCYTES % (AUTO) 25.7 %; MEAN CORPUSCULAR HEMOGLOBIN 30.1 pg (27.0-31.0); MEAN CORPUSCULAR HGB CONC 33.1 g/dL (32.0-36.0); MEAN CORPUSCULAR VOLUME 90.8 fL (81.0-99.0); MEAN PLATELET VOLUME 10.9 fL (7.9-10.8); MONOCYTES # (AUTO) 0.8 10^3/uL (0.0-1.0); MONOCYTES % (AUTO) 9.9 %; NEUTROPHILS # (AUTO) 5.2 10^3/uL (1.5-6.6); PLT - PLATELET COUNT 236 10^3/uL (130-450); RED BLOOD COUNT 3.79 10^6/uL (4.20-5.40); RED CELL DISTRIBUTION WIDTH 14.7 % (12.0-15.0); WHITE BLOOD COUNT 8.3 x10^3/uL (4.8-10.8)
[2021-09-02 05:51] LABS: CREATININE 0.9 mg/dL (0.4-1.0); POTASSIUM 3.6 mmol/L (3.5-5.0)
[2021-09-02] MEDS ORDERED: CETIRIZINE 10 MG TABLET PO PRN (08:22)
[2021-09-02] MEDS: SACCHAROMYCES BOULARDII 250 MG CAPSULE PO SCH ×2 (08:44→16:59)
[2021-09-02] MEDS: CLOPIDOGREL 75 MG TABLET PO SCH (08:44)
[2021-09-02] MEDS: CALCIUM CARB (OYSTER SHELL) 500 MG TABLET PO SCH (08:44)
[2021-09-02] MEDS: levETIRAcetam 250 MG TABLET PO SCH ×2 (08:44→21:08)
[2021-09-02] MEDS: BACLOFEN 10 MG TABLET PO SCH ×4 (08:44→21:07)
[2021-09-02] MEDS: PRENATAL VITAMIN TABLET PO SCH (08:44)
[2021-09-02] MEDS: METOPROLOL SUCCINATE 25 MG TABLET PO SCH ×2 (08:44→21:09)
[2021-09-02] MEDS: CHOLECALCIFEROL 25 MCG TABLET PO SCH (08:45)
[2021-09-02] MEDS: ENOXAPARIN 40 MG/0.4 ML SYRINGE SUBQ SCH (08:45)
[2021-09-02] MEDS: NICOTINE 7 MG PATCH TOP SCH (08:45)
[2021-09-02] MEDS: polyethylene glycoL 3350 17 GM PACKET PO SCH (08:46)
--- NOTE | 2021-09-02 11:33 | PROVIDER PROGRESS NOTE ---
Subjective - Prog Note Date Prog Note Date: 09/02/21 Prog Note Time: 11:29 - Subjective Subjective: She tells me she just "does not feel good today". But no specific complaints. There is no pain, no shortness of breath. She just keeps on repeating "I just do not feel good" in a louder and louder voice. Yesterday's Haldol did help. She calmed down for rest of the evening, into the night. Voice was quiet, request were done in a normal tone of voice until about 9:30 in the morning. The yelling started then. Her request are all made in the loud berating voice. She then is dissatisfied with the response on the [employer]'s part of the nurses part. she would like her baclofen resumed. she takes it at home. Current Medications - Current Medications Current Medications: Active Medications Acetaminophen (Acetaminophen 325 Mg Tablet) 650 mg PO Q4HR PRN PRN Reason: Pain 1 to 4, or Fever Last Admin: 09/02/21 09:49 Dose: 650 mg Albuterol (Albuterol Neb 2.5 Mg/3 Ml) 2.5 mg INH RTQ4H PRN PRN Reason: Wheezing Atorvastatin Calcium (Atorvastatin 40 Mg Tablet) 40 mg PO QPM [facility] Last Admin: 09/01/21 20:50 Dose: 40 mg Baclofen (Baclofen 10 Mg Tablet) 15 mg PO QID [facility] Last Admin: 09/02/21 08:44 Dose: 15 mg Calcium Carbonate/Glycine (Calcium Carb (Oyster Shell) 500 Mg Tablet) 500 mg PO DAILY [facility] Last Admin: 09/02/21 08:44 Dose: 500 mg Cetirizine HCl (Cetirizine 10 Mg Tablet) 10 mg PO DAILY PRN PRN Reason: Allergy Symptoms Cholecalciferol (Cholecalciferol 25 Mcg Tablet) 25 mcg PO DAILY [facility] Last Admin: 09/02/21 08:45 Dose: 25 mcg Clopidogrel Bisulfate (Clopidogrel 75 Mg Tablet) 75 mg PO DAILY [facility] Last Admin: 09/02/21 08:44 Dose: 75 mg Enoxaparin Sodium (Enoxaparin 40 Mg/0.4 Ml Syringe) 40 mg SUBQ DAILY [facility] Last Admin: 09/02/21 08:45 Dose: 40 mg Meropenem 1 gm/ Sodium (Chloride) 100 mls @ 200 mls/hr IV Q8H [facility] Last Admin: 09/02/21 10:59 Dose: 200 mls/hr Levetiracetam (Levetiracetam 250 Mg Tablet) 500 mg PO BID [facility] Last Admin: 09/02/21 08:44 Dose: 500 mg Levothyroxine Sodium (Levothyroxine 25 Mcg Tablet) 25 mcg PO QDAC [facility] Metoprolol Succinate (Metoprolol Succinate 25 Mg Tablet) 25 mg PO BID [facility] Last Admin: 09/02/21 08:44 Dose: 25 mg Nicotine (Nicotine 7 Mg Patch) 1 patch TOP DAILY [facility] Last Admin: 09/02/21 08:45 Dose: 1 patch Ondansetron HCl (Ondansetron 4 Mg/2 Ml Vial) 4 mg IVP Q6HR PRN PRN Reason: Nausea / Vomiting Polyethylene Glycol (Polyethylene Glycol 3350 17 Gm Packet) 17 gm PO DAILY [facility] Last Admin: 09/02/21 08:46 Dose: 17 gm Multivit/Folic Acid/Iron ( Vitamin Tablet) 1 tab PO DAILY [facility] Last Admin: 09/02/21 08:44 Dose: 1 tab Saccharomyces Boulardii (Saccharomyces Boulardii 250 Mg Capsule) 250 mg PO BIDWM [facility] Last Admin: 09/02/21 08:44 Dose: 250 mg Sodium Chloride (Sodium Chloride Flush 0.9% 10 Ml Syringe) 10 ml IVP PRN PRN PRN Reason: NEEDED PER PROVIDER ORDERS Last Admin: 09/02/21 03:53 Dose: 10 ml Sodium Chloride (Sodium Chloride Flush 0.9% 10 Ml Syringe) 10 ml IVP 0100,0900,1700 [facility] Last Admin: 09/02/21 08:45 Dose: 10 ml Baclofen 15 mg PO QID 07/18/19 Glucos Sul 2Kcl/MSM/Chond/C/Mn [Glucosamine Chondroitin Cap] 1 cap PO DAILY 07/18/19 Levothyroxine Sodium 50 mcg PO QDAC 07/18/19 Multivitamin/Iron/Folic Acid [Centrum Women Tablet] 1 ea ORAL DAILY 07/18/19 Calcium Carbonate/Vitamin D3 [Calcium 500Mg-Vit D3 15Mcg Tab] 1 each PO DAILY 12/09/20 Furosemide [Lasix] 10 mg PO DAILY 02/12/21 Potassium Chloride [Klor-Con 10] 10 meq PO DAILY 02/12/21 Cetirizine [ZyrTEC] 10 mg PO DAILY PRN 02/13/21 Cholecalciferol [Vitamin D3] 25 mcg PO DAILY 02/13/21 Levetiracetam [Keppra] 500 mg PO BID 04/16/21 Metoprolol Succinate [Toprol Xl] 25 mg PO DAILY 08/31/21 Objective - Vital Signs/Intake & Output Reviewed Vital Signs: Yes Vital Signs: Vital Signs x48h Temp Pulse Pulse Resp BP BP BP 09/02/21 11:14 36.6 C 78 18 116/61 09/02/21 08:05 36.7 C 86 18 120/56 L 09/02/21 04:13 36.9 C 84 18 107/60 Pulse Ox 09/02/21 11:14 95 09/02/21 08:05 94 09/02/21 04:13 93 Intake & Output: Intake & Output 08/30/21 08/31/21 09/01/21 09/02/21 23:59 23:59 23:59 23:59 Intake Total 2100 3250.276 930 Output Total 700 100 500 Balance 1400 3150.276 430 - Objective General Appearance: positive: Alert Eyes Bilateral: positive: PERRL ENT: positive: Pharynx nml Neck: positive: No JVD. negative: Stiff neck Respiratory: positive: No respiratory distress. negative: Wheezes, Rales, Rhonchi Cardiovascular: positive: Regular rate & rhythm. negative: Systolic murmur, Gallop/S4, Friction rub Abdomen: positive: Non-tender, No organomegaly, Nml bowel sounds, No distention Skin: positive: Warm, Dry Extremities: positive: Full ROM, No pedal edema Neurologic/Psychiatric: positive: Oriented x3, CN's nml (2-12), Motor nml - Lab Results Fish Bones: 09/02/21 05:09 09/02/21 05:09 Other Labs: Lab Results x24hrs 09/02/21 09/02/21 Range/Units 05:09 05:09 WBC 8.3 (4.8-10.8) x10^3/uL RBC 3.79 L (4.20-5.40) 10^6/uL Hgb 11.4 L (12.0-16.0) g/dL Hct 34.4 L (37.0-47.0) % MCV 90.8 (81.0-99.0) fL MCH 30.1 (27.0-31.0) pg MCHC 33.1 (32.0-36.0) g/dL RDW 14.7 (12.0-15.0) % Plt Count 236 (130-450) 10^3/uL MPV 10.9 H (7.9-10.8) fL Neut # (Auto) 5.2 (1.5-6.6) 10^3/uL Lymph # (Auto) 2.1 (1.5-3.5) 10^3/uL [place] # (Auto) 0.8 (0.0-1.0) 10^3/uL Eos # (Auto) 0.0 (0.0-0.7) 10^3/uL Baso # (Auto) 0.1 (0.0-0.1) 10^3/uL Absolute Nucleated RBC 0.00 x10^3/uL Nucleated RBC % 0.0 /100WBC Sodium 143 (135-145) mmol/L Potassium 3.6 (3.5-5.0) mmol/L Chloride 110 (101-111) mmol/L Carbon Dioxide 25 (21-32) mmol/L Anion Gap 8.0 (6-13) BUN 20 (6-20) mg/dL Creatinine 0.9 (0.4-1.0) mg/dL Estimated GFR (MDRD) 63 L (>89) Glucose 91 (70-100) mg/dL Calcium 9.0 (8.5-10.3) mg/dL Assessment/Plan - Problem List (1) Altered mental status Impression: Many admissions for this unfortunate elderly female who lives independently in her own apartment. Unfortunate she has been unable to follow through with home and community services evaluation. Those appointments were made as far back as June. We were hoping that she would be able to get some services to keep her at home to age independently. She is back with us again with altered mental status and yet another urinary tract infection. Hx of Multiple admissions for encephalopathy. Drug screen is negative. 09/01 she has ripped out her IV several times. I spoke to her again and explained to her that she is here for urinary tract infection with resistant bacteria. I used layman's terms. At this moment in time she is amenable to getting another IV put in to give her IV antibiotics. She has received IV fluid resuscitation. Other than IV antibiotics I stopped all IV medications and hopefully she will let us keep the IV in. We are still awaiting the identification and sensitivities of the urinalysis. Right now we just notes a gram-negative [place]. Plan: Continue meropenem until we find out the sensitivities of this bacteria and then change antibiotics appropriately. I am so hoping we can find an oral equiva lent. She is oriented to person, place, but not clearly understanding why she is here. Unfortunately, I did end up having to use Haldol yesterday. She would not let us keep the IV in. Overnight she has done well. This morning yelling again. I am hoping she will be able to calm down which just warm verbal prompting. I use the Haldol because she was a danger to self and impairing her ability to deliver care and a person is not quite oriented to why she was here. Truly hoping that we can change her over to oral antibiotics soon. I think that some of her personality traits are just baseline and it is who she is. When she is to baseline personality with oral antibiotics she will go home Qualifiers: Altered mental status type: delirium Qualified Code(s): R41.0 - Disorientation, unspecified (2) UTI (urinary tract infection) Conclusion/Plan: pt's UA reveal positive nitrite, WBC and Bacteriuria, and slightly elevated WBC. Day #3 meropenem. on probiotics Qualifiers: Urinary tract infection type: acute cystitis Hematuria presence: without hematuria Qualified Code(s): N30.00 - Acute cystitis without hematuria (3) Hx of seizure disorder Conclusion/Plan: Patient has a history of seizure, we have resumed patient home meds Keppra, And Keppra serum concentration level drawn yesterday. Results pending. (4) CKD (chronic kidney disease) Conclusion/Plan: Baseline creatinine 0.8. Admission creatinine 1.2. Today's creatinine 0.9 on IV fluids. He had a good oral intake of food and water, I have stopped her maintenance IV fluids. Those were stopped yesterday. Continue to monitor. (5) HTN (hypertension) Conclusion/Plan: Patient has history of hypertension, She continues to have intermittent episodes of low blood pressure that are asymptomatic. At midnight and 4 in the morning she was 102 systolic and then 107 systolic. With waking up for the day her systolic has been 116 and 120. She is on Toprol-XL at home and we have resume that here. She also usually gets Lasix at home but we have held that. Heart rate is not bradycardic. So I will continue to watch her blood pressure carefully to make sure there are no other causes for hypotension. (6) Hypothyroidism Conclusion/Plan: TSH is over suppressed at 0.42 and 0.29.. She needs her Synthroid dose reduced. She is currently on 50 mcg. We will reduce to 25 mcg and start tomorrow. Rechek in 4-6 weeks. Qualifiers: Qualified Code(s): R41.0 - Disorientation, unspecified Qualifiers: Qualified Code(s): R41.0 - Disorientation, unspecified
[2021-09-02] MEDS: ATORVASTATIN 40 MG TABLET PO SCH (21:08)
[2021-09-03] MEDS: MEROPENEM 1 GM in SODIUM CHLORIDE 0.9% MINIBAG 100 ML IV SCH (03:37)
[2021-09-03] MEDS: SODIUM CHLORIDE FLUSH 0.9% 10 ML SYRINGE IVP SCH ×2 (03:37→08:43)
[2021-09-03] MEDS: ACETAMINOPHEN 325 MG TABLET PO PRN ×2 (03:46→08:42)
[2021-09-03 05:25] LABS: BASOPHILS # (AUTO) 0.1 10^3/uL (0.0-0.1); BASOPHILS % (AUTO) 0.9 %; HCT - HEMATOCRIT 36.3 % (37.0-47.0); HGB - HEMOGLOBIN 11.9 g/dL (12.0-16.0); LYMPHOCYTES # (AUTO) 2.2 10^3/uL (1.5-3.5); LYMPHOCYTES % (AUTO) 24.3 %; MEAN CORPUSCULAR HGB CONC 32.8 g/dL (32.0-36.0); MEAN CORPUSCULAR VOLUME 91.4 fL (81.0-99.0); MEAN PLATELET VOLUME 11.2 fL (7.9-10.8); MONOCYTES # (AUTO) 0.8 10^3/uL (0.0-1.0); MONOCYTES % (AUTO) 8.7 %; NEUTROPHILS # (AUTO) 5.8 10^3/uL (1.5-6.6); NEUTROPHILS % (AUTO) 65.8 %; PLT - PLATELET COUNT 233 10^3/uL (130-450); RED BLOOD COUNT 3.97 10^6/uL (4.20-5.40); RED CELL DISTRIBUTION WIDTH 14.7 % (12.0-15.0); WHITE BLOOD COUNT 8.8 x10^3/uL (4.8-10.8)
[2021-09-03 05:32] LABS: CALCIUM 9.1 mg/dL (8.5-10.3); CREATININE 0.8 mg/dL (0.4-1.0); POTASSIUM 3.8 mmol/L (3.5-5.0)
[2021-09-03] MEDS ORDERED: LEVOTHYROXINE 25 MCG TABLET PO SCH (07:00)
[2021-09-03] MEDS: levETIRAcetam 250 MG TABLET PO SCH (08:42)
[2021-09-03] MEDS: CLOPIDOGREL 75 MG TABLET PO SCH (08:42)
[2021-09-03] MEDS: SACCHAROMYCES BOULARDII 250 MG CAPSULE PO SCH (08:42)
[2021-09-03] MEDS: PRENATAL VITAMIN TABLET PO SCH (08:42)
[2021-09-03] MEDS: CALCIUM CARB (OYSTER SHELL) 500 MG TABLET PO SCH (08:42)
[2021-09-03] MEDS: METOPROLOL SUCCINATE 25 MG TABLET PO SCH (08:42)
[2021-09-03] MEDS: CHOLECALCIFEROL 25 MCG TABLET PO SCH (08:42)
[2021-09-03] MEDS: polyethylene glycoL 3350 17 GM PACKET PO SCH (08:43)
[2021-09-03] MEDS: NICOTINE 7 MG PATCH TOP SCH (08:43)
[2021-09-03] MEDS: ENOXAPARIN 40 MG/0.4 ML SYRINGE SUBQ SCH (08:43)
--- NOTE | 2021-09-03 09:09 | Discharge Plan ---
Discharge Plan Problem Reviewed?: Yes Disposition: Home, Self Care Condition: Stable Diet: Regular Activity Restrictions: Activity as Tolerated Shower Restrictions: No Driving Restrictions: Yes (no driving) Assistance Devices: [facility] Concerns: You came to the emergency room because you had changed her personality and were not speaking to people and when you did speak you were seeing or speaking to people that were not there. Your apartment complex friends also stated that you had fallen and you were found down outside her apartment laying on the ground. They think you may been laying there for an hour. In our emergency room we think you had a urinary tract infection and gave you antibiotics and hydrated you. Over the next few days you were definitely not yourself. You hallucinating, screaming, pulling out your IVs, etc. You were able to calm down enough to let us give you antibiotics. You have now had 4 days of antibiotic therapy. The bacteria that is growing in your urine is very drug-resistant but we think that you are treated at this moment in time. We always worry about you getting another infection. Plan of Treatment: 1. Please see your primary care provider in follow-up in the next 1 to 2 weeks 2. I asked your question at the hospital. You currently have no plans for how to take care of yourself when you are no longer able to take care of yourself. Please start tracking your primary care provider about what you will do when you can no longer go to the bathroom by herself, feed your self, and have to have 24/7 care. Care Goals: To remain independent in your apartment as long as possible and to reduce the amount of hospitalizations you have Assessment: Patient states she is understanding these goals and would like to go home right now No Smoking: If you smoke, Please STOP! Call for help. Follow-up with: Yenny Markham ARNP [Primary Care Provider] -
[2021-09-03] MEDS: BACLOFEN 10 MG TABLET PO SCH (10:53)
--- NOTE | 2021-09-03 11:03 | DISCHARGE SUMMARY ---
Discharge Summary Admit Date: 08/31/21 Discharge Date: 09/03/21 Discharging Provider: Kassie Marquez MD Primary Care Provider: Yenny Markham MD Code Status: Attempt Resuscitation Condition at Discharge: Stable Discharge Disposition: 01 Home, Self Care - DIAGNOSES Discharge Diagnoses with Status of Each Condition: 1. Metabolic encephalopathy due to UTI 2. ESBL E. coli UTI 3. History of seizure disorder 4. Chronic kidney disease, with acute worsening 5. Hypertension 6. Hypothyroidism - HPI History of Present Illness: This is a 65-years old female with a past medical history significant noted for Multiple admission for encephalopathy, CKD, history of seizure disorder, positive toxicity screening for amphetamines suspect for abuse, multiple sclerosis, hypothyroidism and psoriasis, frequent UTI infection with multiple resistance bacteria, Who present to the ER for evaluation patient's acute encephalopathy. pt is alert but she keep silent when asking any questions to her. Pt was reported to have unwitness ground level of fall. EMS reports pt was found down outside approximate about 1hr. No injuries was notable, C-collar was placed for pt. Per ER provider, patient was placed in the ER for over 6 hours, patient was given antibiotics and IV fluids but patient still present confusion. So medical team was consulted for admission in observation unit. CT of head, cervical spine, chest x-ray all are unremarkable for acute process. Routine laboratory test significantly show WBC 12, creatinine 1.2, BUN 33, anion gap 14, Urinalysis show positive for nitrate, WBC 6-10, moderate bacteria in the UA. In the ER, patient is afebrile, otherwise patient is hemodynamic stable. I am unable to discuss the care goal due to her altered mental status, and will default to full code now. 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 Remote left basal ganglia infarct. Cervical spine CT without acute evidence of traumatic or cervical injury Chest x-ray without acute cardiopulmonary process demonstrated radiographically Urine culture is with ESBL producing E. coli. Sensitive to cefepime ceftriaxone ertapenem, imipenem. Blood cultures negative - HOSPITAL COURSE Hospital Course: This patient is usually quite a loud, belligerent person. Can be quite demanding. When she was in the emergency room she was silent and refusing to answer any questions. She was identified as having a possible UTI, again, as a source of her change mental status. She was started empirically on meropenem since she is known to have resistant bacteria in her urine. She gradually cleared. She became much more awake and reverted to her baseline self of being loud, angry. At 1 point I did use Haldol twice because she was pulling out IVs, not quite understanding that she was here for infection. She received 4 days of meropenem. She did not have a fever or a white cell count during her stay here. As such she is felt to have an uncomplicated UTI and we tentatively feel that she is completed her antibiotic therapy. She is back to baseline, eating, walking to the bathroom. She wants to go home. I did ask her to start thinking in terms of the future with regards to how she wanted to be taking care of. Specifically I asked her what which she envision for her future if she could no longer take care of herself at all. If she could no longer get groceries, feed herself, clean her house, or take a bath where would she be living when that happened and who would be taking care of her. I also feel that she can no longer drive safely. She has poor judgment, is impulsive, and is at times off balance. 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 Temperature at discharge is 36.3. Heart rate is 72. Blood pressure 129/67. Respirations 19. 94% on room air. She is a 5 foot 2 inch female who looks much much older than stated age. 72 kg. Neck is supple with shotty adenopathy. She has no teeth. Lungs are clear to auscultation and percussion without increased respiratory effort. There are no crackles, rhonchi, wheezing. She speaks with a fast rapid pattern and is repetitive. "Get rid of this IV, get rid of this IV, get rid of his IV". She most likely has some type of undiagnosed psychiatric disorder that is not well controlled at this time. She has a regular rate and rhythm. The abdomen is soft, nontender. Normal bowel sounds. Last bowel movement September 02. Greater than 30 minutes spent coordinating discharge. - ALLERGIES Allergies/Adverse Reactions: Allergies Allergy/AdvReac Type Severity Reaction Status Date / Time No Known Drug Allergies Allergy Verified 08/31/21 07:38 - MEDICATIONS Home Medications: Ambulatory Orders Medication Instructions Recorded Confirmed Baclofen 15 mg PO QID 07/18/19 08/31/21 Glucos Sul 2Kcl/MSM/Chond/C/Mn 1 cap PO DAILY 07/18/19 08/31/21 [Glucosamine Chondroitin Cap] Levothyroxine Sodium 50 mcg PO QDAC 07/18/19 08/31/21 Multivitamin/Iron/Folic Acid 1 ea ORAL DAILY 07/18/19 08/31/21 [Centrum Women Tablet] Calcium Carbonate/Vitamin D3 1 each PO DAILY 12/09/20 08/31/21 [Calcium 500Mg-Vit D3 15Mcg Tab] Atorvastatin [Lipitor] 40 mg PO QPM #0 12/21/20 08/31/21 Clopidogrel [Plavix] 75 mg PO DAILY #0 12/21/20 09/01/21 Furosemide [Lasix] 10 mg PO DAILY 02/12/21 08/31/21 Potassium Chloride [Klor-Con 10] 10 meq PO DAILY 02/12/21 08/31/21 Cetirizine [ZyrTEC] 10 mg PO DAILY PRN 02/13/21 08/31/21 Cholecalciferol [Vitamin D3] 25 mcg PO DAILY 02/13/21 08/31/21 Levetiracetam [Keppra] 500 mg PO BID 04/16/21 08/31/21 Metoprolol Succinate [Toprol Xl] 25 mg PO DAILY 08/31/21 08/31/21 - LABS Result Diagrams: 09/03/21 04:46 09/03/21 04:46
[2021-09-03 11:15] VITALS: BP 135/68
== END 2021-09-03 11:15 | disposition home or self-care (01) | DRG 71 ==
LOC: EDUNIT# → ED 07:30 → MS2 14:41 → OBSVTOIN 09-01 12:36
PROVIDERS: ADMIT Nurse Practitioner Gerontology; ATTEND Specialist
DX: R41.0 Disorientation, unspecified (principal); G93.41 Metabolic encephalopathy; R07.9 Chest pain, unspecified; R51.9 Headache, unspecified; W19.XXXA Unspecified fall, initial encounter; M54.2 Cervicalgia; N30.00 Acute cystitis without hematuria; N18.30 Chronic kidney disease, stage 3 unspecified; B96.20 Unspecified Escherichia coli [E. coli] as the cause of diseases classified elsewhere; G35 Multiple sclerosis; I45.10 Unspecified right bundle-branch block; G40.909 Epilepsy, unspecified, not intractable, without status epilepticus; G89.29 Other chronic pain; M54.9 Dorsalgia, unspecified; R40.0 Somnolence; F17.200 Nicotine dependence, unspecified, uncomplicated; E03.9 Hypothyroidism, unspecified; I12.9 Hypertensive chronic kidney disease with stage 1 through stage 4 chronic kidney disease, or unspecified chronic kidney disease; I25.10 Atherosclerotic heart disease of native coronary artery without angina pectoris; I25.2 Old myocardial infarction; L40.9 Psoriasis, unspecified; K08.109 Complete loss of teeth, unspecified cause, unspecified class; Z20.822 Contact with and (suspected) exposure to COVID-19; F32.A Depression, unspecified; F90.9 Attention-deficit hyperactivity disorder, unspecified type; Z72.0 Tobacco use; Z79.890 Hormone replacement therapy; Z79.899 Other long term (current) drug therapy; Z80.1 Family history of malignant neoplasm of trachea, bronchus and lung; Z80.8 Family history of malignant neoplasm of other organs or systems; Z82.49 Family history of ischemic heart disease and other diseases of the circulatory system; Z90.710 Acquired absence of both cervix and uterus
CPT/HCPCS: 36415; 70450; 71045; 72125; 80048; 80053; 80306; 80307; 81001; 82607; 83605; 83690; 83735; 84443; 85025; 87040; 87077; 87086; 87181; 87633; 93005; 96361; 96365; 96366; 96372; 96375; 96376; 99285; 99291; A9270; G0480; J1650; J2060; J2185; J7120; 80320; 80329; 81003

== ENCOUNTER 2021-09-07 08:40 | Outpatient (CLI) | payer MEDICARE, MEDICAID | END 2021-09-07 23:59 | disposition critical access hospital (66) | LOC: EMS 08:40 | DX: R41.82 Altered mental status, unspecified (principal) | CPT/HCPCS: A0425; A0427 ==

== ENCOUNTER 2021-09-07 08:59 | Observation (INO) | payer MEDICARE, MEDICAID ==
--- NOTE | 2021-09-07 09:10 | ED Physician Documentation ---
PD HPI ALTERED MENTAL STATUS - Stated complaint Stated Complaint: AMS - History obtained from History obtained from: EMS - Additional information Additional information: 65-year-old woman presents by ambulance for altered mental status. She was discharged from the hospital about 4 days ago after an episode of metabolic encephalopathy related to ESBL E. coli UTI. Today reportedly per EMS she wandered into her neighbor's house with 1 shoe on and confused. Last known normal was unknown. She had a single low blood pressure prior to arrival in the 90/60 range but it came up with the administration of some IV fluids. I am unable to get any history from the patient due to altered mental status. She states she is in the group home, does not know why she is here. I asked her if she is in pain and she says yes but unable to state where. 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 : Chronic bladder infection HEENT: None Psych: Depression, ADD/ADHD Musculoskeletal: Chronic back pain, Other Derm: Other - Past Surgical History Past Surgical History: Yes Ortho: Spine surgery /TRUCK DISPATCHER: Hysterectomy - Present Medications Home Medications: Ambulatory Orders Medication Instructions Recorded Confirmed Levothyroxine Sodium 50 mcg PO QDAC 07/18/19 09/07/21 Multivitamin/Iron/Folic Acid 1 ea ORAL DAILY 07/18/19 09/07/21 [Centrum Women Tablet] Calcium Carbonate/Vitamin D3 1 each PO DAILY 12/09/20 09/07/21 [Calcium 500Mg-Vit D3 15Mcg Tab] Atorvastatin [Lipitor] 40 mg PO QPM #0 12/21/20 09/07/21 Clopidogrel [Plavix] 75 mg PO DAILY #0 12/21/20 09/07/21 Furosemide [Lasix] 10 mg PO DAILY 02/12/21 09/07/21 Potassium Chloride [Klor-Con 10] 10 meq PO DAILY 02/12/21 09/07/21 Cetirizine [ZyrTEC] 10 mg PO DAILY PRN 02/13/21 09/07/21 Cholecalciferol [Vitamin D3] 25 mcg PO DAILY 02/13/21 09/07/21 Levetiracetam [Keppra] 500 mg PO BID 04/16/21 09/07/21 Metoprolol Succinate [Toprol Xl] 25 mg PO DAILY 08/31/21 09/07/21 - Allergies Allergies/Adverse Reactions: Allergies Allergy/AdvReac Type Severity Reaction Status Date / Time No Known Drug Allergies Allergy Verified 09/07/21 09:08 - Social History Does the pt smoke?: Yes Smoking Status: Current every day smoker Does the pt drink ETOH?: No Does the pt have substance abuse?: Yes - Immunizations Immunizations are current?: No - POLST Patient has POLST: No POLST Status: Full Code PD ED PE NORMAL - Vitals Vital signs reviewed: Yes - General General: Other (She is alert And oriented to person only. 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 and refuses to follow commands in the lower extremities.) Eye Opening: Spontaneous Motor: Obeys Commands Verbal: Inappropriate GCS Score: 13 Results - Vitals Vitals: Vital Signs - 24 hr 09/07/21 09/07/21 09/07/21 09:10 09:35 10:07 Temperature 36.6 C Heart Rate 64 62 54 L Respiratory 19 22 13 Rate Blood Pressure 116/71 110/60 139/74 H O2 Saturation 99 100 100 09/07/21 09/07/21 09/07/21 10:30 11:14 11:30 Temperature 36.7 C Heart Rate 63 60 59 L Respiratory 18 21 21 Rate Blood Pressure 139/74 H 154/101 H 142/76 H O2 Saturation 100 100 100 09/07/21 09/07/21 12:00 12:41 Temperature Heart Rate 67 66 Respiratory 21 22 Rate Blood Pressure 143/73 H 142/93 H O2 Saturation 100 100 Oxygen O2 Source [] Room air O2 Source [] Room air O2 Source Room air - EKG (time done) 0910 Rate: Rate (enter#) (56) Rhythm: NSR [place]: Normal Intervals: Prolonged SD, RBBB Ischemia: Normal ST segments - Labs Labs: Laboratory Tests 09/07/21 09/07/21 09/07/21 09:35 09:40 09:40 WBC 11.4 H RBC 4.45 Hgb 13.4 Hct 41.2 MCV 92.6 MCH 30.1 MCHC 32.5 RDW 14.2 Plt Count 283 MPV 11.0 H Neut # (Auto) 7.5 H Lymph # (Auto) 3.0 [place] # (Auto) 0.8 Eos # (Auto) 0.0 Baso # (Auto) 0.1 Absolute Nucleated RBC 0.00 Nucleated RBC % 0.0 Sodium 142 Potassium 3.8 Chloride 103 Carbon Dioxide 25 Anion Gap 14.0 H BUN 31 H Creatinine 1.3 H Estimated GFR (MDRD) 41 L Glucose 89 Lactic Acid 2.3 H Calcium 9.3 Magnesium 2.3 Total Bilirubin 0.8 AST 26 ALT 25 Alkaline Phosphatase 135 H Total Protein 8.2 Albumin 4.3 Globulin 3.9 Albumin/Globulin Ratio 1.1 Lipase 53 H Urine Color Urine Clarity Urine pH Ur Specific [place] Urine Protein Urine Glucose (UA) Urine Ketones Urine Occult Blood Urine Nitrite Urine Bilirubin Urine Urobilinogen Ur Leukocyte Esterase Urine RBC Urine WBC Ur Squamous Epith Cells Urine Bacteria Ur Microscopic Review Urine Culture Comments Ethyl Alcohol < 5.0 09/07/21 11:35 WBC RBC Hgb Hct MCV MCH MCHC RDW Plt Count MPV Neut # (Auto) Lymph # (Auto) [place] # (Auto) Eos # (Auto) Baso # (Auto) Absolute Nucleated RBC Nucleated RBC % Sodium Potassium Chloride Carbon Dioxide Anion Gap BUN Creatinine Estimated GFR (MDRD) Glucose Lactic Acid Calcium Magnesium Total Bilirubin AST ALT Alkaline Phosphatase Total Protein Albumin Globulin Albumin/Globulin Ratio Lipase Urine Color YELLOW Urine Clarity HAZY Urine pH 6.0 Ur Specific [place] 1.020 Urine Protein TRACE Urine Glucose (UA) NEGATIVE Urine Ketones NEGATIVE Urine Occult Blood SMALL H Urine Nitrite NEGATIVE Urine Bilirubin NEGATIVE Urine Urobilinogen 0.2 (NORMAL) Ur Leukocyte Esterase MODERATE H Urine RBC 6-10 H Urine WBC 6-10 H Ur Squamous Epith Cells RARE Squamous Urine Bacteria Few Ur Microscopic Review INDICATED Urine Culture Comments INDICATED Ethyl Alcohol - Rads (name of study) CT of the head shows no acute findings. Chronic left microvascular ischemic changes and remote basal ganglia infarct, unchanged Radiology: EMP read contemporaneously PD MEDICAL DECISION MAKING - ED course ED course: 65-year-old woman presents with recurrent encephalopathy potentially related to UTI. She is very encephalopathic here in the is nonfunctional because of it. Work-up demonstrates moderate leukocytosis, pyuria, mild KJ. Spoke with Dr. Benoit for admission at 12:32 PM. Departure - Departure Disposition: ED Place in Observation Clinical Impression: Altered mental status, Acute encephalopathy, KJ (acute kidney injury) Condition: Stable
[2021-09-07 09:45] LABS: BASOPHILS # (AUTO) 0.1 10^3/uL (0.0-0.1); BASOPHILS % (AUTO) 0.9 %; HCT - HEMATOCRIT 41.2 % (37.0-47.0); HGB - HEMOGLOBIN 13.4 g/dL (12.0-16.0); LYMPHOCYTES % (AUTO) 25.8 %; MEAN CORPUSCULAR HEMOGLOBIN 30.1 pg (27.0-31.0); MEAN CORPUSCULAR HGB CONC 32.5 g/dL (32.0-36.0); MEAN CORPUSCULAR VOLUME 92.6 fL (81.0-99.0); MONOCYTES # (AUTO) 0.8 10^3/uL (0.0-1.0); MONOCYTES % (AUTO) 7.1 %; NEUTROPHILS # (AUTO) 7.5 10^3/uL (1.5-6.6); NEUTROPHILS % (AUTO) 65.8 %; PLT - PLATELET COUNT 283 10^3/uL (130-450); RED BLOOD COUNT 4.45 10^6/uL (4.20-5.40); RED CELL DISTRIBUTION WIDTH 14.2 % (12.0-15.0); WHITE BLOOD COUNT 11.4 x10^3/uL (4.8-10.8)
[2021-09-07 09:49] LABS: LACTIC ACID, VENOUS 2.3 mmol/L (0.5-2.2)
[2021-09-07 09:57] LABS: ALBUMIN 4.3 g/dL (3.2-5.5); ALBUMIN/GLOBULIN RATIO 1.1 (1.0-2.2); ALKALINE PHOSPHATASE 135 IU/L (42-121); ALT ALANINE AMINOTRANSFERASE 25 IU/L (10-60); AST ASPARTATE AMINOTRANSFERASE 26 IU/L (10-42); BILIRUBIN,TOTAL 0.8 mg/dL (0.2-1.0); BUN - BLOOD UREA NITROGEN 31 mg/dL (6-20); CALCIUM 9.3 mg/dL (8.5-10.3); CARBON DIOXIDE - CO2 25 mmol/L (21-32); CHLORIDE 103 mmol/L (101-111); CREATININE 1.3 mg/dL (0.4-1.0); ETOH - ETHANOL < 5.0 mg/dL; GFR - MDRD 41 (>89); GLUCOSE 89 mg/dL (70-100); LIPASE 53 U/L (22-51); MAGNESIUM 2.3 mg/dL (1.7-2.8); POTASSIUM 3.8 mmol/L (3.5-5.0); SODIUM 142 mmol/L (135-145); TOTAL PROTEIN 8.2 g/dL (6.7-8.2)
--- NOTE | 2021-09-07 10:11 | CT Report ---
PROCEDURE: HEAD WO INDICATIONS: AMS TECHNIQUE: Noncontrast 4.5 mm thick angled axial sections acquired from the foramen magnum to the vertex. For r adiation dose reduction, the following was used: automated exposure control, adjustment of mA and/or kV according to patient size. COMPARISON: Multiple prior head CT studies, most recent 08/31/2021 FINDINGS: Image quality: Excellent. CSF spaces: Basal cisterns are patent. No extra-axial fluid collections. Ventricles are normal in size and shape. Brain: Remote infarct in the left basal ganglia near the caudate head. Chronic microvascular scheme c hanges redemonstrated. Zavaleta-white matter differentiation otherwise maintained. No acute intracranial hemorrhage. No mass effect or midline shift. Skull and face: Calvarium and visualized facial bones are intact, without suspicious lesions. Sinuses: Visualized sinuses and mastoids are clear. IMPRESSION: No acute intracranial finding. Chronic left microvascular ischemic changes and remote bas al ganglia infarct appears similar. Reviewed by: Phillip Gutierrez MD on 09/07/2021 10:09 AM PDT Approved by: Phillip Gutierrez MD on 09/07/2021 10:09 AM PDT Station ID: [id number]
[2021-09-07 12:02] LABS: BILIRUBIN,URINE NEGATIVE (NEGATIVE); GLUCOSE, URINE (UA) NEGATIVE (NEGATIVE); KETONES,URINE (UA) NEGATIVE (NEGATIVE); LEUKOCYTE ESTERASE, URINE MODERATE (NEGATIVE); NITRITE,URINE NEGATIVE (NEGATIVE); OCCULT BLOOD,URINE SMALL (NEGATIVE); PROTEIN,URINE TRACE mg/dL (NEGATIVE); UROBILINOGEN,URINE 0.2 (NORMAL) E.U./dL (NORMAL)
[2021-09-07 12:06] LABS: BACTERIA,URINE Few /HPF (None Seen); CLARITY,URINE HAZY (CLEAR); SQUAMOUS EPITHELIAL CELL,UR RARE Squamous (<= Few)
[2021-09-07] MEDS ORDERED: cefTRIAXone 1 GM in SODIUM CHLORIDE 0.9% MINIBAG 100 ML IV STA (12:32)
[2021-09-07] MEDS ORDERED: cefTRIAXone 1 GM VIAL ONE (12:46)
[2021-09-07] MEDS ORDERED: ONDANSETRON 4 MG/2 ML VIAL IVP PRN (13:36)
[2021-09-07] MEDS ORDERED: SODIUM CHLORIDE FLUSH 0.9% 10 ML SYRINGE IVP PRN (13:36)
--- NOTE | 2021-09-07 13:47 | HISTORY & PHYSICAL EXAMINATION ---
Chief Complaint - Chief Complaint Chief Complaint: AMS History of Present Illness - Admitted From Admitted From:: Medical floor - History Obtained From Records Reviewed: [employer], and ER note History obtained from: notes Exam Limitations: pt's confused - History of Present Illness HPI Comment/Other: This is a 65-years old female with a past medical history significant noted for Multiple admission for encephalopathy, CKD, history of seizure disorder, positive toxicity screening for amphetamines suspect for abuse, multiple sclerosis, hypothyroidism and psoriasis, frequent UTI infection with multiple resistance bacteria, Who present to the ER for evaluation patient's acute encephalopathy. pt is alert but she keep yelling when she come to the medical floor. When asking what bring her to the hospital, she answer she do not know. Pt was reported to she wandered into her neighbor's house with one shoe on and presented with confusion. Pt was d/c from hospital four days ago with ESBL UTI infection. CT of head is unremarkable for acute process. Routine laboratory test significantly show WBC 11.4, creatinine 1.3, BUN 31, anion gap 14, Urinalysis show positive for infection. In the ER, patient is afebrile, otherwise patient is hemodynamic stable. I am unable to discuss the care goal due to her altered mental status, and will default to full code now. 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 The patient has been adopted by a stepfather and he is still alive in his 80s. Her father of bone cancer when she was a very little girl. Mom is and of heart disease but had lung cancer before she . 1 brother of the same bone cancer that his father of. 1 brother is al benji but has A. fib. No sisters. No children. Living Situation: Alone Social History Notes: Unable to update the social history given her encephalopa thy but review of prior review of systems revealed that she is a smoker and does not have a history of alcohol abuse. She has a history of illicit drug use, probably LSD back in the 1970s. - Substance History Use: Uses substance without health or social issues: Tobacco - POLST Patient has POLST: No POLST Status: Full Code Meds/Allgy - Home Medications Home Medications: Ambulatory Orders Medication Instructions Recorded Confirmed Levothyroxine Sodium 50 mcg PO QDAC 07/18/19 09/07/21 Multivitamin/Iron/Folic Acid 1 ea ORAL DAILY 07/18/19 09/07/21 [Centrum Women Tablet] Calcium Carbonate/Vitamin D3 1 each PO DAILY 12/09/20 09/07/21 [Calcium 500Mg-Vit D3 15Mcg Tab] Atorvastatin [Lipitor] 40 mg PO QPM #0 12/21/20 09/07/21 Clopidogrel [Plavix] 75 mg PO DAILY #0 12/21/20 09/07/21 Furosemide [Lasix] 10 mg PO DAILY 02/12/21 09/07/21 Potassium Chloride [Klor-Con 10] 10 meq PO DAILY 02/12/21 09/07/21 Cetirizine [ZyrTEC] 10 mg PO DAILY PRN 02/13/21 09/07/21 Cholecalciferol [Vitamin D3] 25 mcg PO DAILY 02/13/21 09/07/21 Levetiracetam [Keppra] 500 mg PO BID 04/16/21 09/07/21 Metoprolol Succinate [Toprol Xl] 25 mg PO DAILY 08/31/21 09/07/21 - Allergies Allergies/Adverse Reactions: Allergies Allergy/AdvReac Type Severity Reaction Status Date / Time No Known Drug Allergies Allergy Verified 09/07/21 09:08 Review of Systems - All Other Systems All Other Systems: reports: Other (pt is confused and could not answer ROS questions) Exam - Vital Signs Vital Signs: Vital Signs x48h Temp Pulse Resp BP Pulse Ox 09/07/21 13:14 63 16 148/66 H 100 09/07/21 12:41 66 22 142/93 H 100 09/07/21 12:00 67 21 143/73 H 100 09/07/21 11:30 59 L 21 142/76 H 100 09/07/21 11:14 36.7 C 60 21 154/101 H 100 09/07/21 10:30 63 18 139/74 H 100 09/07/21 10:07 54 L 13 139/74 H 100 09/07/21 09:35 62 22 110/60 100 09/07/21 09:10 36.6 C 64 19 116/71 99 - Physical Exam General Appearance: positive: No acute distress, Alert. negative: Lethargic Eyes Bilateral: positive: Normal inspection, No lid inflammation ENT: positive: ENT inspection nml Neck: positive: Nml inspection, Trachea midline. negative: Tracheal deviation Respiratory: positive: No respiratory distress, Breath sounds nml Cardiovascular: positive: Regular rate & rhythm, No murmur. negative: Tachycardia, Bradycardia, Systolic murmur Peripheral Pulses: positive: 2+ Abdomen: positive: Non-tender, Nml bowel sounds, No distention. negative: Tenderness Back: positive: Nml inspection Skin: positive: Color nml, Warm, Dry. negative: Cyanosis Extremities: positive: Non-tender, Nml appearance Neurologic/Psychiatric: positive: Sensation nml. negative: Weakness, Sensory loss, Facial droop, Slurred/abnml speech Conclusion/Plan - Problem List (1) Acute encephalopathy Conclusion/Plan: Patient present confused, patient had hx of multiple times admission with c onfused after she had urinary tract infection. Patient was discharged 4 days ago with similar admission. We will check urine drug screening, check TSH, check B12. It was likely caused by patient acute urinary tract infection and dehydration. We will treat patient with cefepime and intravenous IV fluids, blood culture and urine culture and sensitivity study are pending. Consult with social work for discharge planning (2) UTI (urinary tract infection) Conclusion/Plan: Patient had ESBL urinary tract infection in the last admission. Patient had a history of multiple drug resistance urine tract infection. according to previous urine culture and sensitivity study, will add cefepime for patient, Follow-up this time of UA culture and sensitivity study Qualifiers: Urinary tract infection type: acute cystitis Hematuria presence: without hematuria Qualified Code(s): N30.00 - Acute cystitis without hematuria (3) KJ (acute kidney injury) Conclusion/Plan: Patient had elevated BUN, creatinine, anion gap, It is likely caused by patient dehydration. 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 We will check Keppra serum concentration (5) HTN (hypertension) Conclusion/Plan: Patient has a history of hypertension, we will resume home metoprolol, continue vital signs monitor (6) Hypothyroidism Conclusion/Plan: We will check TSH, resume home Synthroid - Lab Results Fish Bones: 09/07/21 09:40 09/07/21 09:40 Core Measures - Anticipated LOS I expect patient to be DC'd or transferred within 96 hours.: Yes - DVT/VTE - Prophylaxis VTE/DVT Device ordered at admit?: Yes VTE/DVT Prophylaxis med ordered at admit?: Yes
[2021-09-07] MEDS ORDERED: SODIUM CHLORIDE 0.9% 1,000 ML IV SCH (14:00)
[2021-09-07 15:06] LABS: MUDS CUTOFF CONCENTRATIONS CUTOFF CONC BELOW:
[2021-09-07] MEDS: CEFEPIME 2 GM in SODIUM CHLORIDE 0.9% MINIBAG 100 ML IV SCH (15:11)
[2021-09-07 15:25] LABS: AMPHETAMINE SCREEN,URINE NEGATIVE (NEGATIVE); BARBITURATE SCREEN,UR NEGATIVE (NEGATIVE); BENZODIAZEPINES SCREEN, URINE NEGATIVE (NEGATIVE); COCAINE SCREEN URINE NEGATIVE (NEGATIVE); METHADONE SCREEN, URINE NEGATIVE (NEGATIVE); METHAMPHETAMINES SCREEN, URINE NEGATIVE (NEGATIVE); OPIATE SCREEN, URINE NEGATIVE (NEGATIVE); OXYCODONE SCREEN, URINE NEGATIVE (NEGATIVE); PROPOXYPHENE SCREEN, URINE NEGATIVE (NEGATIVE); THC CANNABINOID SCREEN, URINE NEGATIVE (NEGATIVE); TRICYCLIC ANTIDEPRESSANT,URINE NEGATIVE (NEGATIVE)
[2021-09-07] MEDS: D5.45NS W/20 MEQ KCL 1,000 ML IV SCH (15:55)
[2021-09-07] MEDS: SODIUM CHLORIDE FLUSH 0.9% 10 ML SYRINGE IVP SCH (16:45)
[2021-09-07 17:00] LABS: B. PARAPERTUSSIS- RESP PCR PAN NOT DETECTED; B. PERTUSSIS- RESP PCR PANEL NOT DETECTED; C. PNEUMONIAE- RESP PCR PANEL NOT DETECTED; CORONAVIRUS 229E-RESP PCR NOT DETECTED; CORONAVIRUS HKU1-RESP PCR NOT DETECTED; CORONAVIRUS NL63-RESP PCR NOT DETECTED; CORONAVIRUS OC43-RESP PCR NOT DETECTED; HUMAN METAPNEUMOVIRUS NOT DETECTED; INFLUENZA A- RESP PCR PANEL NOT DETECTED; INFLUENZA B - RESP PCR PANEL NOT DETECTED; M. PNEUMONIAE- RESP PCR PANEL NOT DETECTED; PARAINFLUENZA VIRUS 1 NOT DETECTED; PARAINFLUENZA VIRUS 2 NOT DETECTED; PARAINFLUENZA VIRUS 3 NOT DETECTED; PARAINFLUENZA VIRUS 4 NOT DETECTED; RHINOVIRUS/ENTEROVIRUS NOT DETECTED; RSV- RESP PCR PANEL NOT DETECTED; SARS-CoV-2 -RESP PCR PANEL NOT DETECTED
[2021-09-07] MEDS: levETIRAcetam 250 MG TABLET PO SCH (21:24)
[2021-09-07] MEDS: ATORVASTATIN 40 MG TABLET PO SCH (21:24)
[2021-09-08] MEDS: D5.45NS W/20 MEQ KCL 1,000 ML IV SCH (01:10)
[2021-09-08] MEDS: CEFEPIME 2 GM in SODIUM CHLORIDE 0.9% MINIBAG 100 ML IV SCH ×2 (01:11→13:55)
[2021-09-08] MEDS: SODIUM CHLORIDE FLUSH 0.9% 10 ML SYRINGE IVP SCH ×3 (01:11→17:39)
[2021-09-08] MEDS: ACETAMINOPHEN 325 MG TABLET PO PRN ×3 (05:51→20:26)
[2021-09-08] MEDS: LEVOTHYROXINE 25 MCG TABLET PO SCH (05:51)
[2021-09-08 05:54] LABS: CALCIUM 9.1 mg/dL (8.5-10.3)
[2021-09-08 05:57] LABS: BASOPHILS # (AUTO) 0.1 10^3/uL (0.0-0.1); HGB - HEMOGLOBIN 12.4 g/dL (12.0-16.0); LYMPHOCYTES # (AUTO) 2.7 10^3/uL (1.5-3.5); LYMPHOCYTES % (AUTO) 27.7 %; MEAN CORPUSCULAR HEMOGLOBIN 30.2 pg (27.0-31.0); MEAN CORPUSCULAR HGB CONC 32.6 g/dL (32.0-36.0); MEAN CORPUSCULAR VOLUME 92.7 fL (81.0-99.0); MEAN PLATELET VOLUME 11.7 fL (7.9-10.8); MONOCYTES % (AUTO) 10.4 %; NEUTROPHILS # (AUTO) 5.8 10^3/uL (1.5-6.6); NEUTROPHILS % (AUTO) 60.7 %; PLT - PLATELET COUNT 287 10^3/uL (130-450); RED CELL DISTRIBUTION WIDTH 14.6 % (12.0-15.0); WHITE BLOOD COUNT 9.6 x10^3/uL (4.8-10.8)
[2021-09-08] MEDS: MULTIVITAMIN W/MINERALS TABLET PO SCH (07:55)
[2021-09-08] MEDS: ENOXAPARIN 40 MG/0.4 ML SYRINGE SUBQ SCH (08:04)
[2021-09-08] MEDS: METOPROLOL SUCCINATE 25 MG TABLET PO SCH (08:04)
[2021-09-08] MEDS: CLOPIDOGREL 75 MG TABLET PO SCH (08:04)
[2021-09-08] MEDS: levETIRAcetam 250 MG TABLET PO SCH ×2 (08:04→20:26)
--- NOTE | 2021-09-08 11:22 | PROVIDER PROGRESS NOTE ---
Assessment/Plan - Problem List (1) Acute encephalopathy Assessment/Plan: 5/6 improved, pt is comfortable sleeping, no adverse events was reported on conference. UA culture and blood culture are pending, will continue Cefpime and IVF for pt, add probiotics Patient present confused, patient had hx of multiple times admission with confused after she had urinary tract infection. Patient was discharged 4 days ago with similar admission. We will check urine drug screening, check TSH, check B12. It was likely caused by patient acute urinary tract infection and dehydration. We will treat patient with cefepime and intravenous IV fluids, blood culture and urine culture and sensitivity study are pending. Consult with social work for discharge planning (2) UTI (urinary tract infection) Conclusion/Plan: 09/08 UA Culture and sensitivity study are pending. If patient continue to have ESBL bacterial infection, then We will plan to have PICC line for patient for 2 weeks intravenous antibiotics treatment and d/c to nurse facility at this time Patient had ESBL urinary tract infection in the last admission. Patient had a history of multiple drug resistance urine tract infection. according to previous urine culture and sensitivity study, will add cefepime for patient, Follow-up this time of UA culture and sensitivity study (3) KJ (acute kidney injury) Conclusion/Plan: 56 significantly improved, creatinine 1.0, BUN and anion gap are Both reduced Patient had elevated BUN, creatinine, anion gap, It is likely caused by patient dehydration. 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 We will check Keppra serum concentration (5) HTN (hypertension) Conclusion/Plan: Patient has a history of hypertension, we will resume home metoprolol, continue vital signs monitor (6) Hypothyroidism Conclusion/Plan: We will check TSH, resume home Synthroid (2) UTI (urinary tract infection) Qualifiers: Urinary tract infection type: acute cystitis Hematuria presence: without hematuria Qualified Code(s): N30.00 - Acute cystitis without hematuria - Current Meds Current Meds: Current Medications Generic Name Dose Route Start Last Admin Trade Name Freq PRN Reason Stop Dose Admin Acetaminophen 650 mg 09/07/21 13:36 09/08/21 05:51 Acetaminophen 325 Mg Tablet PO 650 mg Q4HR PRN Administration Pain 1 to 4, or Fever Atorvastatin Calcium 40 mg 09/07/21 21:00 09/07/21 21:24 Atorvastatin 40 Mg Tablet PO 40 mg QPM JIN Administration Clopidogrel Bisulfate 75 mg 09/08/21 09:00 09/08/21 08:04 Clopidogrel 75 Mg Tablet PO 75 mg DAILY JIN Administration Enoxaparin Sodium 40 mg 09/08/21 09:00 09/08/21 08:04 Enoxaparin 40 Mg/0.4 Ml Syringe SUBQ 40 mg DAILY JIN Administration Cefepime HCl 2 gm/ Sodium 100 mls @ 200 mls/hr 09/07/21 14:00 09/08/21 01:51 Chloride IV Infused Q12H JIN Infusion Levetiracetam 500 mg 09/07/21 21:00 09/08/21 08:04 Levetiracetam 250 Mg Tablet PO 500 mg BID JIN Administration Levothyroxine Sodium 50 mcg 09/08/21 07:00 09/08/21 05:51 Levothyroxine 25 Mcg Tablet PO 50 mcg QDAC JIN Administration Metoprolol Succinate 25 mg 09/08/21 09:00 09/08/21 08:04 Metoprolol Succinate 25 Mg Tablet PO 25 mg DAILY JIN Administration Multivitamins/Minerals 1 tab 09/08/21 08:00 09/08/21 07:55 Multivitamin W/Minerals Tablet PO 1 tab DAILYWM JIN Administration Sodium Chloride 10 ml 09/07/21 17:00 09/08/21 08:05 Sodium Chloride Flush 0.9% 10 Ml Syringe IVP 10 ml 0100,0900,1700 JIN Administration - Lab Result Fish Bone Diagrams: 09/08/21 04:27 09/08/21 04:27 - Additional Planning My Orders: My Active Orders 09/07/21 13:36 Acetaminophen [Tylenol] 650 mg PO Q4HR PRN Ondansetron Inj [Zofran Inj] 4 mg IVP Q6HR PRN Sodium Chloride Flush 0.9% [Normal Saline Flush 0.9%] 10 ml IVP PRN PRN 09/07/21 13:37 Activity Orders [RC] Q2HR IO [RC] IOSHIFT Initiate Bowel Care Protocol [RC] .protocol Initiate Line Care Protocol [RC] QSHIFT Initiate Personal Care Protoco [RC] .protocol Oxygen Therapy [RC] .PRN Vital Signs [RC] Q4HR Code Status [OTHERS] Routine Condition of Patient [OTHERS] Routine DVT Prophylaxis [OTHERS] Routine 09/07/21 13:38 IV Insert [RC] .ONCE 09/07/21 13:39 SCDs [RC] QSHIFT Social Work Consult [CONS] Routine 09/07/21 14:00 Cefepime 2 gm Sodium Chloride 0.9% Minibag [Normal Saline 0.9% Minibag] 100 ml IV Q12H 09/07/21 Dinner Soft Mechanical Diet [DIET] 09/07/21 17:00 Sodium Chloride Flush 0.9% [Normal Saline Flush 0.9%] 10 ml IVP 0100,0900,1700 09/07/21 21:00 Atorvastatin [Lipitor] 40 mg PO QPM levETIRAcetam [Keppra] 500 mg PO BID 09/08/21 07:00 Levothyroxine [Synthroid] 50 mcg PO QDAC 09/08/21 08:00 Multivitamin W/Minerals [Theragran M] 1 tab PO DAILYWM 09/08/21 09:00 Clopidogrel [Plavix] 75 mg PO DAILY Enoxaparin [Lovenox] 40 mg SUBQ DAILY Metoprolol Succinate [Toprol Xl] 25 mg PO DAILY 09/09/21 05:00 BMP - BASIC METABOLIC PANEL [CHEM] DAILYLAB CBC - COMP BLD CT W/AUTO DIFF [HEME] DAILYLAB 09/10/21 05:00 BMP - BASIC METABOLIC PANEL [CHEM] DAILYLAB CBC - COMP BLD CT W/AUTO DIFF [HEME] DAILYLAB 09/11/21 05:00 BMP - BASIC METABOLIC PANEL [CHEM] DAILYLAB CBC - COMP BLD CT W/AUTO DIFF [HEME] DAILYLAB Subjective - Subjective Patient Reports: Resting Comfortably Objective Vital Signs: Vital Signs - 24 hr 09/07/21 09/07/21 09/07/21 11:30 12:00 12:41 Temperature Heart Rate 59 L 67 66 Heart Rate [ Brachial] Respiratory 21 21 22 Rate Blood Pressure 142/76 H 143/73 H 142/93 H Blood Pressure [Right Brachial artery] O2 Saturation 100 100 100 09/07/21 09/07/21 09/07/21 13:14 15:29 21:43 Temperature 36.4 C L 36.4 C L Heart Rate 63 Heart Rate [ 66 75 Brachial] Respiratory 16 18 19 Rate Blood Pressure 148/66 H Blood Pressure 126/56 L 100/45 L [Right Brachial artery] O2 Saturation 100 100 95 09/08/21 09/08/21 09/08/21 01:00 05:00 09:00 Temperature 37 C 36.5 C 36.5 C Heart Rate Heart Rate [ 78 77 81 Brachial] Respiratory 18 19 18 Rate Blood Pressure Blood Pressure 102/58 L 119/58 L 105/57 L [Right Brachial artery] O2 Saturation 93 95 98 Oxygen O2 Source [With Activity] Room air O2 Source [Without Activity] Room air O2 Source Room air I&O (Last 24 Hrs): Intake and Output Totals x24h 09/06/21 09/07/21 09/08/21 23:59 23:59 23:59 Intake Total 720 1195 Balance 720 1195 General: Alert, Cooperative, No acute distress HEENT: Atraumatic Neck: Supple Lymphatic: no adenopathy Neuro: Alert, Non Focal Cardiovascular: Regular rate, Normal S1, Normal S2 Respiratory: Chest non-tender, No respiratory distress Abdomen: Normal bowel sounds, Soft Extremities: Normal pulses - Results Results: Laboratory Results WBC 9.6 x10^3/uL (4.8-10.8) 09/08/21 04:27 RBC 4.10 10^6/uL (4.20-5.40) L 09/08/21 04:27 Hgb 12.4 g/dL (12.0-16.0) 09/08/21 04:27 Hct 38.0 % (37.0-47.0) 09/08/21 04:27 MCV 92.7 fL (81.0-99.0) 09/08/21 04:27 MCH 30.2 pg (27.0-31.0) 09/08/21 04:27 MCHC 32.6 g/dL (32.0-36.0) 09/08/21 04:27 RDW 14.6 % (12.0-15.0) 09/08/21 04:27 Plt Count 287 10^3/uL (130-450) 09/08/21 04:27 MPV 11.7 fL (7.9-10.8) H 09/08/21 04:27 Neut # (Auto) 5.8 10^3/uL (1.5-6.6) 09/08/21 04:27 Lymph # (Auto) 2.7 10^3/uL (1.5-3.5) 09/08/21 04:27 Emmet # (Auto) 1.0 10^3/uL (0.0-1.0) 09/08/21 04:27 Eos # (Auto) 0.0 10^3/uL (0.0-0.7) 09/08/21 04:27 Baso # (Auto) 0.1 10^3/uL (0.0-0.1) 09/08/21 04:27 Absolute Nucleated RBC 0.00 x10^3/uL 09/08/21 04:27 Nucleated RBC % 0.0 /100WBC 09/08/21 04:27 Sodium 141 mmol/L (135-145) 09/08/21 04:27 Potassium 4.0 mmol/L (3.5-5.0) 09/08/21 04:27 Chloride 109 mmol/L (101-111) 09/08/21 04:27 Carbon Dioxide 24 mmol/L (21-32) 09/08/21 04:27 Anion Gap 8.0 (6-13) 09/08/21 04:27 BUN 26 mg/dL (6-20) H 09/08/21 04:27 Creatinine 1.0 mg/dL (0.4-1.0) 09/08/21 04:27 Estimated GFR (MDRD) 56 (>89) L 09/08/21 04:27 Glucose 99 mg/dL (70-100) 09/08/21 04:27 Lactic Acid 1.0 mmol/L (0.5-2.2) 09/07/21 12:57 Calcium 9.1 mg/dL (8.5-10.3) 09/08/21 04:27 Magnesium 2.3 mg/dL (1.7-2.8) 09/07/21 09:40 Total Bilirubin 0.8 mg/dL (0.2-1.0) 09/07/21 09:40 AST 26 IU/L (10-42) 09/07/21 09:40 ALT 25 IU/L (10-60) 09/07/21 09:40 Alkaline Phosphatase 135 IU/L (42-121) H 09/07/21 09:40 Total Protein 8.2 g/dL (6.7-8.2) 09/07/21 09:40 Albumin 4.3 g/dL (3.2-5.5) 09/07/21 09:40 Globulin 3.9 g/dL (2.1-4.2) 09/07/21 09:40 Albumin/Globulin Ratio 1.1 (1.0-2.2) 09/07/21 09:40 Lipase 53 U/L (22-51) H 09/07/21 09:40 Vitamin B12 202 pg/mL (180-914) 09/07/21 09:40 TSH 1.80 uIU/mL (0.34-5.60) 09/07/21 09:40 Urine Color YELLOW 09/07/21 11:35 Urine Clarity HAZY (CLEAR) 09/07/21 11:35 Urine pH 6.0 PH (5.0-7.5) 09/07/21 11:35 Ur Specific Braman 1.020 (1.002-1.030) 09/07/21 11:35 Urine Protein TRACE mg/dL (NEGATIVE) 09/07/21 11:35 Urine Glucose (UA) NEGATIVE mg/dL (NEGATIVE) 09/07/21 11:35 Urine Ketones NEGATIVE mg/dL (NEGATIVE) 09/07/21 11:35 Urine Occult Blood SMALL (NEGATIVE) H 09/07/21 11:35 Urine Nitrite NEGATIVE (NEGATIVE) 09/07/21 11:35 Urine Bilirubin NEGATIVE (NEGATIVE) 09/07/21 11:35 Urine Urobilinogen 0.2 (NORMAL) E.U./dL (NORMAL) 09/07/21 11:35 Ur Leukocyte Esterase MODERATE (NEGATIVE) H 09/07/21 11:35 Urine RBC 6-10 /HPF (0-5) H 09/07/21 11:35 Urine WBC 6-10 /HPF (0-5) H 09/07/21 11:35 Ur Squamous Epith Cells RARE Squamous (<= Few) 09/07/21 11:35 Urine Bacteria Few /HPF (None Seen) 09/07/21 11:35 Ur Microscopic Review INDICATED 09/07/21 11:35 Urine Culture Comments INDICATED 09/07/21 11:35 Nasal Adenovirus (PCR) NOT DETECTED 09/07/21 15:10 Nasal B. parapertussis DNA (PCR) NOT DETECTED 09/07/21 15:10 Nasal Coronavir 229E PCR NOT DETECTED 09/07/21 15:10 Nasal Coronavir HKU1 PCR NOT DETECTED 09/07/21 15:10 Nasal Coronavir NL63 PCR NOT DETECTED 09/07/21 15:10 Nasal Coronavir OC43 PCR NOT DETECTED 09/07/21 15:10 Nasal Enterovir/Rhinovir PCR NOT DETECTED 09/07/21 15:10 Nasal Influenza B PCR NOT DETECTED 09/07/21 15:10 Nasal Influenza A PCR NOT DETECTED 09/07/21 15:10 Nasal Parainfluen 1 PCR NOT DETECTED 09/07/21 15:10 Nasal Parainfluen 2 PCR NOT DETECTED 09/07/21 15:10 Nasal Parainfluen 3 PCR NOT DETECTED 09/07/21 15:10 Nasal Parainfluen 4 PCR NOT DETECTED 09/07/21 15:10 Nasal RSV (PCR) NOT DETECTED 09/07/21 15:10 Nasal B.pertussis DNA PCR NOT DETECTED 09/07/21 15:10 Nasal C.pneumoniae (PCR) NOT DETECTED 09/07/21 15:10 Jaya Human Metapneumo PCR NOT DETECTED 09/07/21 15:10 Nasal M.pneumoniae (PCR) NOT DETECTED 09/07/21 15:10 Nasal SARS-CoV-2 (PCR) NOT DETECTED 09/07/21 15:10 Urine Opiates Screen NEGATIVE (NEGATIVE) 09/07/21 15:00 Ur Oxycodone Screen NEGATIVE (NEGATIVE) 09/07/21 15:00 Urine Methadone Screen NEGATIVE (NEGATIVE) 09/07/21 15:00 Ur Propoxyphene Screen NEGATIVE (NEGATIVE) 09/07/21 15:00 Ur Barbiturates Screen NEGATIVE (NEGATIVE) 09/07/21 15:00 Ur Tricyclics Screen NEGATIVE (NEGATIVE) 09/07/21 15:00 Ur Phencyclidine Scrn NEGATIVE (NEGATIVE) 09/07/21 15:00 Ur Amphetamine Screen NEGATIVE (NEGATIVE) 09/07/21 15:00 U Methamphetamines Scrn NEGATIVE (NEGATIVE) 09/07/21 15:00 U Benzodiazepines Scrn NEGATIVE (NEGATIVE) 09/07/21 15:00 Urine Cocaine Screen NEGATIVE (NEGATIVE) 09/07/21 15:00 U Cannabinoids Screen NEGATIVE (NEGATIVE) 09/07/21 15:00 Ethyl Alcohol < 5.0 mg/dL 09/07/21 09:40 Coronavirus (PCR) NEGATIVE 09/07/21 09:40 ABX Reporting Has patient been on IV antibiotics over the past 48 hours?: Yes Current Medications - Current Medications Current Medications: Active Medications Acetaminophen (Acetaminophen 325 Mg Tablet) 650 mg PO Q4HR PRN PRN Reason: Pain 1 to 4, or Fever Last Admin: 09/08/21 05:51 Dose: 650 mg Atorvastatin Calcium (Atorvastatin 40 Mg Tablet) 40 mg PO QPM [facility] Last Admin: 09/07/21 21:24 Dose: 40 mg Clopidogrel Bisulfate (Clopidogrel 75 Mg Tablet) 75 mg PO DAILY [facility] Last Admin: 09/08/21 08:04 Dose: 75 mg Enoxaparin Sodium (Enoxaparin 40 Mg/0.4 Ml Syringe) 40 mg SUBQ DAILY [facility] Last Admin: 09/08/21 08:04 Dose: 40 mg Cefepime HCl 2 gm/ Sodium (Chloride) 100 mls @ 200 mls/hr IV Q12H [facility] Last Infusion: 09/08/21 01:51 Dose: Infused Levetiracetam (Levetiracetam 250 Mg Tablet) 500 mg PO BID [facility] Last Admin: 09/08/21 08:04 Dose: 500 mg Levothyroxine Sodium (Levothyroxine 25 Mcg Tablet) 50 mcg PO QDAC [facility] Last Admin: 09/08/21 05:51 Dose: 50 mcg Metoprolol Succinate (Metoprolol Succinate 25 Mg Tablet) 25 mg PO DAILY [facility] Last Admin: 09/08/21 08:04 Dose: 25 mg Multivitamins/Minerals (Multivitamin W/Minerals Tablet) 1 tab PO DAILYWM [facility] Last Admin: 09/08/21 07:55 Dose: 1 tab Ondansetron HCl (Ondansetron 4 Mg/2 Ml Vial) 4 mg IVP Q6HR PRN PRN Reason: Nausea / Vomiting Saccharomyces Boulardii (Saccharomyces Boulardii 250 Mg Capsule) 250 mg PO BIDWM [facility] Sodium Chloride (Sodium Chloride Flush 0.9% 10 Ml Syringe) 10 ml IVP PRN PRN PRN Reason: NEEDED PER PROVIDER ORDERS Sodium Chloride (Sodium Chloride Flush 0.9% 10 Ml Syringe) 10 ml IVP 0100,0900,1700 [facility] Last Admin: 09/08/21 08:05 Dose: 10 ml Levothyroxine Sodium 50 mcg PO QDAC 07/18/19 Multivitamin/Iron/Folic Acid [Centrum Women Tablet] 1 ea ORAL DAILY 07/18/19 Calcium Carbonate/Vitamin D3 [Calcium 500Mg-Vit D3 15Mcg Tab] 1 each PO DAILY 12/09/20 Furosemide [Lasix] 10 mg PO DAILY 02/12/21 Potassium Chloride [Klor-Con 10] 10 meq PO DAILY 02/12/21 Cetirizine [ZyrTEC] 10 mg PO DAILY PRN 02/13/21 Cholecalciferol [Vitamin D3] 25 mcg PO DAILY 02/13/21 Levetiracetam [Keppra] 500 mg PO BID 04/16/21 Metoprolol Succinate [Toprol Xl] 25 mg PO DAILY 08/31/21
--- NOTE | 2021-09-08 16:21 | PHARMACY PROGRESS NOTE ---
- Best Possible Medication History Admit Date and Time: 09/07/21 1698 Processed by: Pharmacy Medication History completed: Yes Patient Interview: Completed Secondary Source(s): Insurance records (Pt states she also takes pseudoephedrine that she buys at [employer] for congestion. Uncertain of dose but states she takes "quite often and it helps alot.") As the person ultimately responsible for medication therapy, providers are able to order a medication from an existing home medication list in [facility] via the "Reconcile Routine" prior to Confirmation of that medication by sales support coordinator. Such practice is discouraged except when the physician, in their clinical judgment, deems that a medical need exists for a medication without regard to previous use.
[2021-09-08] MEDS: SACCHAROMYCES BOULARDII 250 MG CAPSULE PO SCH (17:39)
[2021-09-08] MEDS: ATORVASTATIN 40 MG TABLET PO SCH (20:26)
[2021-09-08] MEDS: OXYMETAZOLINE HCL 100 SPRAYS BOTTLE NAS PRN (21:44)
[2021-09-09] MEDS: SODIUM CHLORIDE FLUSH 0.9% 10 ML SYRINGE IVP SCH ×2 (00:11→08:00)
[2021-09-09] MEDS: CEFEPIME 2 GM in SODIUM CHLORIDE 0.9% MINIBAG 100 ML IV SCH ×2 (01:26→13:18)
[2021-09-09] MEDS: ACETAMINOPHEN 325 MG TABLET PO PRN ×2 (02:17→06:05)
[2021-09-09 05:19] LABS: BASOPHILS # (AUTO) 0.1 10^3/uL (0.0-0.1); BASOPHILS % (AUTO) 1.2 %; HCT - HEMATOCRIT 37.5 % (37.0-47.0); HGB - HEMOGLOBIN 12.6 g/dL (12.0-16.0); LYMPHOCYTES # (AUTO) 2.9 10^3/uL (1.5-3.5); MEAN CORPUSCULAR HEMOGLOBIN 30.8 pg (27.0-31.0); MEAN CORPUSCULAR HGB CONC 33.6 g/dL (32.0-36.0); MEAN CORPUSCULAR VOLUME 91.7 fL (81.0-99.0); MEAN PLATELET VOLUME 10.8 fL (7.9-10.8); MONOCYTES # (AUTO) 0.8 10^3/uL (0.0-1.0); MONOCYTES % (AUTO) 8.7 %; NEUTROPHILS # (AUTO) 5.5 10^3/uL (1.5-6.6); NEUTROPHILS % (AUTO) 58.8 %; PLT - PLATELET COUNT 283 10^3/uL (130-450); RED BLOOD COUNT 4.09 10^6/uL (4.20-5.40); RED CELL DISTRIBUTION WIDTH 14.6 % (12.0-15.0); WHITE BLOOD COUNT 9.4 x10^3/uL (4.8-10.8)
[2021-09-09 05:30] LABS: CALCIUM 9.2 mg/dL (8.5-10.3); POTASSIUM 4.3 mmol/L (3.5-5.0)
[2021-09-09] MEDS: LEVOTHYROXINE 25 MCG TABLET PO SCH (06:05)
[2021-09-09] MEDS: METOPROLOL SUCCINATE 25 MG TABLET PO SCH (08:00)
[2021-09-09] MEDS: MULTIVITAMIN W/MINERALS TABLET PO SCH (08:00)
[2021-09-09] MEDS: ENOXAPARIN 40 MG/0.4 ML SYRINGE SUBQ SCH (08:00)
[2021-09-09] MEDS: CLOPIDOGREL 75 MG TABLET PO SCH (08:00)
[2021-09-09] MEDS: SACCHAROMYCES BOULARDII 250 MG CAPSULE PO SCH (08:00)
[2021-09-09] MEDS: levETIRAcetam 250 MG TABLET PO SCH (08:00)
[2021-09-09] MEDS: OXYMETAZOLINE HCL 100 SPRAYS BOTTLE NAS PRN (08:47)
--- NOTE | 2021-09-09 11:43 | DISCHARGE SUMMARY ---
Discharge Summary Admit Date: 09/07/21 Discharge Date: 09/09/21 Discharging Provider: Raf Benoit Primary Care Provider: Yenny Markham Code Status: Attempt Resuscitation Condition at Discharge: Stable Discharge Disposition: 01 Home, Self Care - DIAGNOSES Admission Diagnoses: Acute encephalopathy UTI Acute kidney injury History of seizure disorder Hypertension Hypothyroidism Discharge Diagnoses with Status of Each Condition: Acute encephalopathy: 2/2 UTI. Resolved UTI: 2/2 E faecalis. Cipro 250mg po bid X5 days Acute kidney injury: Resolved History of seizure disorder: Chronic. Controlled. Continue home medications Hypertension: Chronic. Controlled. Continue home medications Hypothyroidism: Chronic. Controlled. Continue home medications - HPI History of Present Illness: This is a 65-years old female with a past medical history significant noted for Multiple admission for encephalopathy, CKD, history of seizure disorder, positive toxicity screening for amphetamines suspect for abuse, multiple sclerosis, hypothyroidism and psoriasis, frequent UTI infection with multiple resistance bacteria, Who present to the ER for evaluation patient's acute encephalopathy. pt is alert but she keep yelling when she come to the medical floor. When asking what bring her to the hospital, she answer she do not know. Pt was reported to she wandered into her neighbor's house with one shoe on and presented with confusion. Pt was d/c from hospital four days ago with ESBL UTI infection. CT of head is unremarkable for acute process. Routine laboratory test significantly show WBC 11.4, creatinine 1.3, BUN 31, anion gap 14, Urinalysis show positive for infection. In the ER, patient is afebrile, otherwise patient is hemodynamic stable. I am unable to discuss the care goal due to her altered mental status, and will default to full code now. - HOSPITAL COURSE Hospital Course: Started on cefepime at time of admission. Blood cultures and urine culture were drawn at time of admission as well. Urine culture subsequently grew Enterococcus faecalis which was pansensitive and sensitive to Cipro. Had mental status improved and was at baseline by the time of discharge. She was prescribed Cipro 250 mg twice daily x5 more days upon discharge. During previous admissions it has been recommended that the patient go to a residential facility for further treatment. However she has declined and continues to decline today insisting that she wants to go home upon discharge. 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 She may follow-up with her primary care physician as needed - ALLERGIES Allergies/Adverse Reactions: Allergies Allergy/AdvReac Type Severity Reaction Status Date / Time No Known Drug Allergies Allergy Verified 09/07/21 09:08 - MEDICATIONS Home Medications: Ambulatory Orders Medication Instructions Recorded Confirmed Levothyroxine Sodium 50 mcg PO QDAC 07/18/19 09/07/21 Multivitamin/Iron/Folic Acid 1 ea ORAL DAILY 07/18/19 09/07/21 [Centrum Women Tablet] Calcium Carbonate/Vitamin D3 1 each PO DAILY 12/09/20 09/07/21 [Calcium 500Mg-Vit D3 15Mcg Tab] Atorvastatin [Lipitor] 40 mg PO QPM #0 12/21/20 09/07/21 Furosemide [Lasix] 10 mg PO DAILY 02/12/21 09/07/21 Potassium Chloride [Klor-Con 10] 10 meq PO DAILY 02/12/21 09/07/21 Cholecalciferol [Vitamin D3] 25 mcg PO DAILY 02/13/21 09/07/21 Levetiracetam [Keppra] 500 mg PO BID 04/16/21 09/07/21 Metoprolol Succinate [Toprol Xl] 25 mg PO DAILY 08/31/21 09/07/21 Baclofen [Lioresal] 20 mg PO HS 09/08/21 09/08/21 Ciprofloxacin [Cipro] 250 mg PO Q12H 5 Days #10 tablet 09/09/21 - PHYSICAL EXAM AT DISCHARGE General Appearance: positive: No acute distress, Alert Eyes Bilateral: positive: PERRL, EOMI ENT: positive: No signs of dehydration Neck: positive: No JVD, Trachea midline Respiratory: positive: Chest non-tender, No respiratory distress, Breath sounds nml. negative: Wheezes, Rales, Rhonchi Cardiovascular: positive: Regular rate & rhythm, No murmur Abdomen: positive: Non-tender, No organomegaly, Nml bowel sounds, No distention. negative: Guarding, Rebound Back: positive: Nml inspection Skin: positive: Color nml, No rash, Warm, Dry Extremities: positive: Non-tender, Full ROM, Nml appearance, No pedal edema Neurologic/Psychiatric: positive: Oriented x3, Mood/affect nml - LABS Result Diagrams: 09/09/21 05:09 09/09/21 05:09 - TIME SPENT Time Spent in Discharge (Minutes): 15
--- NOTE | 2021-09-09 11:46 | Discharge Plan ---
Discharge Plan Problem Reviewed?: Yes Disposition: Home, Self Care Condition: Stable Prescriptions: Ciprofloxacin [Cipro] 250 mg PO Q12H 5 Days #10 tablet Diet: Regular Activity Restrictions: Activity as Tolerated Driving Restrictions: Yes (You are not to drive any vehicle anymore) Health Concerns: You were admitted on 09/07/21 with altered mental status for which work-up included a urine analysis which was suspicious for urinary tract infection. An antibiotic by name cefepime was initiated and maintained for the 2 to 3 days of your hospital stay. Urine culture subsequently grew Enterococcus faecalis which is sensitive to multiple antibiotics. Your mentation is back to baseline. It has been recommended multiple times that you go to a [facility] facility for care however you have persistently refused and said you would want to go home when ready for discharge. As a result you are being discharged today with a prescription of Cipro 250 mg p.o. twice daily for 5 days. The above plan was discussed with you, you expressed understanding and are in agreement. You are being discharged in stable condition. You may follow-up with your primary care physician as needed. No Smoking: If you smoke, Please STOP! Call for help.
[2021-09-09] MEDS ORDERED: CARBOXYMETHYLCELLULOSE OPHTH DROPS EACHEYE PRN (11:48)
[2021-09-09 12:10] VITALS: BP 134/76
== END 2021-09-09 14:25 | disposition home or self-care (01) ==
LOC: EDBD → EDUNIT# → ED 08:59 → MS2 13:37 → UNDOADMOB 13:37 → ICU 13:37 → MS2 14:37
PROVIDERS: ADMIT Internal Medicine Hematology & Oncology; ATTEND Internal Medicine
DX: N30.00 Acute cystitis without hematuria (principal); B95.2 Enterococcus as the cause of diseases classified elsewhere; G93.40 Encephalopathy, unspecified; N18.9 Chronic kidney disease, unspecified; G40.909 Epilepsy, unspecified, not intractable, without status epilepticus; G35 Multiple sclerosis; E03.9 Hypothyroidism, unspecified; I25.10 Atherosclerotic heart disease of native coronary artery without angina pectoris; I25.2 Old myocardial infarction; F32.A Depression, unspecified; F90.9 Attention-deficit hyperactivity disorder, unspecified type; I12.9 Hypertensive chronic kidney disease with stage 1 through stage 4 chronic kidney disease, or unspecified chronic kidney disease; N17.9 Acute kidney failure, unspecified; Z20.822 Contact with and (suspected) exposure to COVID-19
CPT/HCPCS: 36415; 51701; 70450; 80048; 80053; 80177; 80306; 81001; 82607; 83605; 83690; 83735; 84443; 85025; 87040; 87077; 87086; 87181; 87633; 93005; 96365; 96366; 96367; 96372; 97162; 97165; 99281; 99285; A9270; G0378; G0480; J1650; U0004; 80320; 81003

== ENCOUNTER 2021-09-25 19:56 | Outpatient (CLI) | payer MEDICARE, MEDICAID | END 2021-09-25 19:57 | disposition critical access hospital (66) | LOC: EMS 19:56 | DX: R41.82 Altered mental status, unspecified (principal); S00.83XA Contusion of other part of head, initial encounter; W19.XXXA Unspecified fall, initial encounter; Y92.009 Unspecified place in unspecified non-institutional (private) residence as the place of occurrence of the external cause | CPT/HCPCS: A0425; A0427 ==

== ENCOUNTER 2021-09-25 20:14 | Inpatient (IN) | payer MEDICARE, MEDICAID ==
--- NOTE | 2021-09-25 20:23 | ED Physician Documentation ---
PD HPI HEAD INJURY - Stated complaint Stated Complaint: FELL, AMS - Chief complaint Chief Complaint: Trauma Hd/Nk - History obtained from History obtained from: EMS - Additional information Additional information: 65-year-old woman brought in by ambulance for altered mental status. Reportedly last seen yesterday. She is able to state she fell off the couch and was on the floor, was not able to state why she could not get back up. She was found on the floor next to the couch by paramedics. She is altered and unable to give much of the history. When asked if she is in pain she says yes, unable to state where. Review of the chart shows that this is a recurrent phenomenon with multiple admissions with almost the exact same presenting complaint. 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: Other : Chronic bladder infection HEENT: None Psych: Depression, ADD/ADHD Musculoskeletal: Chronic back pain, Other Derm: Other - Past Surgical History Past Surgical History: Yes Ortho: Spine surgery /ROCK BREAKER: Hysterectomy - Present Medications Home Medications: Ambulatory Orders Medication Instructions Recorded Confirmed Levothyroxine Sodium 50 mcg PO QDAC 07/18/19 09/07/21 Multivitamin/Iron/Folic Acid 1 ea ORAL DAILY 07/18/19 09/07/21 [Centrum Women Tablet] Calcium Carbonate/Vitamin D3 1 each PO DAILY 12/09/20 09/07/21 [Calcium 500Mg-Vit D3 15Mcg Tab] Atorvastatin [Lipitor] 40 mg PO QPM #0 12/21/20 09/07/21 Furosemide [Lasix] 10 mg PO DAILY 02/12/21 09/07/21 Potassium Chloride [Klor-Con 10] 10 meq PO DAILY 02/12/21 09/07/21 Cholecalciferol [Vitamin D3] 25 mcg PO DAILY 02/13/21 09/07/21 Levetiracetam [Keppra] 500 mg PO BID 04/16/21 09/07/21 Metoprolol Succinate [Toprol Xl] 25 mg PO DAILY 08/31/21 09/07/21 Baclofen [Lioresal] 20 mg PO HS 09/08/21 09/08/21 Ciprofloxacin [Cipro] 250 mg PO Q12H 5 Days #10 tablet 09/09/21 - Allergies Allergies/Adverse Reactions: Allergies Allergy/AdvReac Type Severity Reaction Status Date / Time No Known Drug Allergies Allergy Verified 09/25/21 20:26 - Social History Does the pt smoke?: Yes Smoking Status: Never smoker Does the pt drink ETOH?: No Does the pt have substance abuse?: Yes - Immunizations Immunizations are current?: No - POLST Patient has POLST: No POLST Status: Full Code PD ED PE NORMAL - Vitals Vital signs reviewed: Yes - General General: Other (She is alert and oriented to person and can state the year, poor history for events and unable to state the date otherwise or that she is in the hospital. Incontinent of urine) - HEENT HEENT: PERRL, EOMI, Other (Bruising left forehead) - Neck Neck: No bony TTP - Cardiac Cardiac: RRR, No murmur - Respiratory Respiratory: No respiratory distress, Clear bilaterally - Abdomen Abdomen: Normal bowel sounds, Soft, Non tender - Derm Derm: Normal color, Warm and dry - Extremities Extremities: No deformity, No tenderness to palpate, Normal ROM s pain, No edema, No calf tenderness / cord - Neuro Neuro: No motor deficit, No sensory deficit Eye Opening: Spontaneous Motor: Obeys Commands Verbal: Confused GCS Score: 14 - Psych Psych: Normal mood, Normal affect Results - Vitals Vitals: Vital Signs - 24 hr 09/25/21 09/25/21 09/25/21 20:15 20:34 21:02 Temperature 36.9 C Heart Rate 90 103 H 108 H Respiratory 18 31 H 24 Rate Blood Pressure 95/79 114/80 114/80 O2 Saturation 96 100 100 09/25/21 09/25/21 21:09 21:26 Temperature 37.8 C 37.4 C Heart Rate 97 100 Respiratory 25 H 22 Rate Blood Pressure 111/72 111/78 O2 Saturation 97 95 Oxygen O2 Source [] Room air O2 Source [] Room air O2 Source Room air - EKG (time done) 2019 Rate: Rate (enter#) (98) Rhythm: NSR [place]: Normal Intervals: RBBB QRS: Normal Ischemia: Q waves (inferior) Compare to prior EKG: Changed from prior EKG (Compared with September 07, 2021 increased heart rate but otherwise unchanged, increased artifact) Computer interpretation: Agree with computer - Labs Labs: Laboratory Tests 09/25/21 09/25/21 09/25/21 20:26 20:26 20:26 WBC 20.1 H RBC 5.10 Hgb 15.4 Hct 46.6 MCV 91.4 MCH 30.2 MCHC 33.0 RDW 14.2 Plt Count 325 MPV 10.9 H Neut # (Auto) 16.3 H Lymph # (Auto) 1.6 [place] # (Auto) 2.0 H Eos # (Auto) 0.0 Baso # (Auto) 0.1 Absolute Nucleated RBC 0.00 Band Neuts % (Manual) Not Reportable Abnorm Lymph % (Manual) Not Reportable Nucleated RBC % 0.0 Neutrophils # (Manual) Not Reportable Lymphocytes # (Manual) Not Reportable Monocytes # (Manual) Not Reportable Eosinophils # (Manual) Not Reportable Basophils # (Manual) Not Reportable Differential Comment MANUAL=AUTO DIFF Manual Slide Review Indicated Platelet Estimate NORMAL (130-450,000) Platelet Morphology NORMAL APPEARANCE RBC Morph Micro Appear NORMAL APPEARANCE PT INR VBG pH VBG pCO2 VBG pO2 VBG HCO3 VBG Total CO2 VBG O2 Saturation VBG Base Excess Sodium 144 Potassium 3.9 Chloride 100 L Carbon Dioxide 24 Anion Gap 20.0 H BUN 48 H Creatinine 1.5 H Estimated GFR (MDRD) 35 L Glucose 121 H Lactic Acid 2.5 H Calcium 9.9 Phosphorus 4.4 Magnesium 2.3 Total Bilirubin 1.1 H AST 60 H ALT 29 Alkaline Phosphatase 127 H Total Creatine Kinase 2406 H* Total Protein 8.8 H Albumin 4.2 Globulin 4.6 H Albumin/Globulin Ratio 0.9 L Urine Color Urine Clarity Urine pH Ur Specific Petros Urine Protein Urine Glucose (UA) Urine Ketones Urine Occult Blood Urine Nitrite Urine Bilirubin Urine Urobilinogen Ur Leukocyte Esterase Ur Microscopic Review Urine Culture Comments Nasal Adenovirus (PCR) Nasal B. parapertussis DNA (PCR) Nasal Coronavir 229E PCR Nasal Coronavir HKU1 PCR Nasal Coronavir NL63 PCR Nasal Coronavir OC43 PCR Nasal Enterovir/Rhinovir PCR Nasal Influenza B PCR Nasal Influenza A PCR Nasal Parainfluen 1 PCR Nasal Parainfluen 2 PCR Nasal Parainfluen 3 PCR Nasal Parainfluen 4 PCR Nasal RSV (PCR) Nasal B.pertussis DNA PCR Nasal C.pneumoniae (PCR) Jaya Human Metapneumo PCR Nasal M.pneumoniae (PCR) Nasal SARS-CoV-2 (PCR) Urine Opiates Screen Ur Oxycodone Screen Urine Methadone Screen Ur Propoxyphene Screen Ur Barbiturates Screen Ur Tricyclics Screen Ur Phencyclidine Scrn Ur Amphetamine Screen U Methamphetamines Scrn U Benzodiazepines Scrn Urine Cocaine Screen U Cannabinoids Screen Ethyl Alcohol < 5.0 09/25/21 09/25/21 09/25/21 20:26 20:30 20:38 WBC RBC Hgb Hct MCV MCH MCHC RDW Plt Count MPV Neut # (Auto) Lymph # (Auto) [place] # (Auto) Eos # (Auto) Baso # (Auto) Absolute Nucleated RBC Band Neuts % (Manual) Abnorm Lymph % (Manual) Nucleated RBC % Neutrophils # (Manual) Lymphocytes # (Manual) Monocytes # (Manual) Eosinophils # (Manual) Basophils # (Manual) Differential Comment Manual Slide Review Platelet Estimate Platelet Morphology RBC Morph Micro Appear PT 12.9 H INR 1.2 VBG pH 7.467 H VBG pCO2 35.8 L VBG pO2 43.3 VBG HCO3 25.3 VBG Total CO2 26.4 VBG O2 Saturation 79.3 VBG Base Excess 2.0 Sodium Potassium Chloride Carbon Dioxide Anion Gap BUN Creatinine Estimated GFR (MDRD) Glucose Lactic Acid Calcium Phosphorus Magnesium Total Bilirubin AST ALT Alkaline Phosphatase Total Creatine Kinase Total Protein Albumin Globulin Albumin/Globulin Ratio Urine Color Urine Clarity Urine pH Ur Specific [place] Urine Protein Urine Glucose (UA) Urine Ketones Urine Occult Blood Urine Nitrite Urine Bilirubin Urine Urobilinogen Ur Leukocyte Esterase Ur Microscopic Review Urine Culture Comments Nasal Adenovirus (PCR) NOT DETECTED Nasal B. parapertussis DNA (PCR) NOT DETECTED Nasal Coronavir 229E PCR NOT DETECTED Nasal Coronavir HKU1 PCR NOT DETECTED Nasal Coronavir NL63 PCR NOT DETECTED Nasal Coronavir OC43 PCR NOT DETECTED Nasal Enterovir/Rhinovir PCR NOT DETECTED Nasal Influenza B PCR NOT DETECTED Nasal Influenza A PCR NOT DETECTED Nasal Parainfluen 1 PCR NOT DETECTED Nasal Parainfluen 2 PCR NOT DETECTED Nasal Parainfluen 3 PCR NOT DETECTED Nasal Parainfluen 4 PCR NOT DETECTED Nasal RSV (PCR) NOT DETECTED Nasal B.pertussis DNA PCR NOT DETECTED Nasal C.pneumoniae (PCR) NOT DETECTED Jaya Human Metapneumo PCR NOT DETECTED Nasal M.pneumoniae (PCR) NOT DETECTED Nasal SARS-CoV-2 (PCR) NOT DETECTED Urine Opiates Screen Ur Oxycodone Screen Urine Methadone Screen Ur Propoxyphene Screen Ur Barbiturates Screen Ur Tricyclics Screen Ur Phencyclidine Scrn Ur Amphetamine Screen U Methamphetamines Scrn U Benzodiazepines Scrn Urine Cocaine Screen U Cannabinoids Screen Ethyl Alcohol 09/25/21 20:48 WBC RBC Hgb Hct MCV MCH MCHC RDW Plt Count MPV Neut # (Auto) Lymph # (Auto) [place] # (Auto) Eos # (Auto) Baso # (Auto) Absolute Nucleated RBC Band Neuts % (Manual) Abnorm Lymph % (Manual) Nucleated RBC % Neutrophils # (Manual) Lymphocytes # (Manual) Monocytes # (Manual) Eosinophils # (Manual) Basophils # (Manual) Differential Comment Manual Slide Review Platelet Estimate Platelet Morphology RBC Morph Micro Appear PT INR VBG pH VBG pCO2 VBG pO2 VBG HCO3 VBG Total CO2 VBG O2 Saturation VBG Base Excess Sodium Potassium Chloride Carbon Dioxide Anion Gap BUN Creatinine Estimated GFR (MDRD) Glucose Lactic Acid Calcium Phosphorus Magnesium Total Bilirubin AST ALT Alkaline Phosphatase Total Creatine Kinase Total Protein Albumin Globulin Albumin/Globulin Ratio Urine Color YELLOW Urine Clarity CLEAR Urine pH 5.5 Ur Specific [place] 1.025 Urine Protein NEGATIVE Urine Glucose (UA) NEGATIVE Urine Ketones NEGATIVE Urine Occult Blood TRACE-INTA Urine Nitrite NEGATIVE Urine Bilirubin NEGATIVE Urine Urobilinogen 0.2 (NORMAL) Ur Leukocyte Esterase NEGATIVE Ur Microscopic Review NOT INDICATED Urine Culture Comments NOT INDICATED Nasal Adenovirus (PCR) Nasal B. parapertussis DNA (PCR) Nasal Coronavir 229E PCR Nasal Coronavir HKU1 PCR Nasal Coronavir NL63 PCR Nasal Coronavir OC43 PCR Nasal Enterovir/Rhinovir PCR Nasal Influenza B PCR Nasal Influenza A PCR Nasal Parainfluen 1 PCR Nasal Parainfluen 2 PCR Nasal Parainfluen 3 PCR Nasal Parainfluen 4 PCR Nasal RSV (PCR) Nasal B.pertussis DNA PCR Nasal C.pneumoniae (PCR) Jaya Human Metapneumo PCR Nasal M.pneumoniae (PCR) Nasal SARS-CoV-2 (PCR) Urine Opiates Screen NEGATIVE Ur Oxycodone Screen NEGATIVE Urine Methadone Screen NEGATIVE Ur Propoxyphene Screen NEGATIVE Ur Barbiturates Screen NEGATIVE Ur Tricyclics Screen NEGATIVE Ur Phencyclidine Scrn NEGATIVE Ur Amphetamine Screen NEGATIVE U Methamphetamines Scrn NEGATIVE U Benzodiazepines Scrn NEGATIVE Urine Cocaine Screen NEGATIVE U Cannabinoids Screen NEGATIVE Ethyl Alcohol PD MEDICAL DECISION MAKING - ED course ED course: 65-year-old woman who presents with recurrent encephalopathy in the past has been related to UTIs but no UTI today. She is found to have rhabdomyolysis. Presented to Dr. Benoit for observation at 9:45 PM. Departure - Departure Disposition: ED Place in Observation Clinical Impression: Acute encephalopathy, KJ (acute kidney injury) Rhabdomyolysis Qualifiers: Rhabdomyolysis type: non-traumatic Qualified Code(s): M62.82 - Rhabdomyolysis Condition: Stable
[2021-09-25 20:37] LABS: BASOPHILS # (AUTO) 0.1 10^3/uL (0.0-0.1); BASOPHILS % (AUTO) 0.2 %; HCT - HEMATOCRIT 46.6 % (37.0-47.0); HGB - HEMOGLOBIN 15.4 g/dL (12.0-16.0); LYMPHOCYTES # (AUTO) 1.6 10^3/uL (1.5-3.5); LYMPHOCYTES % (AUTO) 8.1 %; MEAN CORPUSCULAR HEMOGLOBIN 30.2 pg (27.0-31.0); MEAN CORPUSCULAR VOLUME 91.4 fL (81.0-99.0); MEAN PLATELET VOLUME 10.9 fL (7.9-10.8); MONOCYTES % (AUTO) 9.9 %; NEUTROPHILS # (AUTO) 16.3 10^3/uL (1.5-6.6); NEUTROPHILS % (AUTO) 81.4 %; PLT - PLATELET COUNT 325 10^3/uL (130-450); RED CELL DISTRIBUTION WIDTH 14.2 % (12.0-15.0); WHITE BLOOD COUNT 20.1 x10^3/uL (4.8-10.8)
[2021-09-25 20:40] LABS: INR 1.2 (0.8-1.2); PT - PROTHROMBIN TIME 12.9 secs (9.9-12.6)
[2021-09-25 20:43] LABS: SLIDE REVIEW? Indicated
[2021-09-25 20:45] LABS: LACTIC ACID, VENOUS 2.5 mmol/L (0.5-2.2)
[2021-09-25 20:45] LABS: VBG HCO3 25.3 mmol/L (23-28); VBG OXYGEN SATURATION 79.3 % (60-80); VBG PCO2 35.8 mmHg (41-51); VBG PH 7.467 (7.31-7.41); VBG PO2 43.3 mmHg (25-47); VBG TOTAL CO2 26.4 mmol/L (24-29)
[2021-09-25 21:03] LABS: MUDS CUTOFF CONCENTRATIONS CUTOFF CONC BELOW:
[2021-09-25 21:05] LABS: BILIRUBIN,URINE NEGATIVE (NEGATIVE); GLUCOSE, URINE (UA) NEGATIVE (NEGATIVE); KETONES,URINE (UA) NEGATIVE (NEGATIVE); LEUKOCYTE ESTERASE, URINE NEGATIVE (NEGATIVE); NITRITE,URINE NEGATIVE (NEGATIVE); OCCULT BLOOD,URINE TRACE-INTA (NEGATIVE); PH,URINE 5.5 PH (5.0-7.5); PROTEIN,URINE NEGATIVE (NEGATIVE); UROBILINOGEN,URINE 0.2 (NORMAL) E.U./dL (NORMAL)
[2021-09-25 21:09] LABS: CLARITY,URINE CLEAR (CLEAR)
[2021-09-25 21:09] LABS: DIFFERENTIAL COMMENT MANUAL=AUTO DIFF; PLATELET ESTIMATE, MANUAL NORMAL (130-450,000) (NORMAL); PLATELET MORPHOLOGY NORMAL APPEARANCE (NORMAL); RBC MORPHOLOGY (MULTIPLE) NORMAL APPEARANCE (NORMAL)
[2021-09-25 21:15] LABS: AMPHETAMINE SCREEN,URINE NEGATIVE (NEGATIVE); BARBITURATE SCREEN,UR NEGATIVE (NEGATIVE); BENZODIAZEPINES SCREEN, URINE NEGATIVE (NEGATIVE); COCAINE SCREEN URINE NEGATIVE (NEGATIVE); METHADONE SCREEN, URINE NEGATIVE (NEGATIVE); METHAMPHETAMINES SCREEN, URINE NEGATIVE (NEGATIVE); OPIATE SCREEN, URINE NEGATIVE (NEGATIVE); OXYCODONE SCREEN, URINE NEGATIVE (NEGATIVE); PROPOXYPHENE SCREEN, URINE NEGATIVE (NEGATIVE); THC CANNABINOID SCREEN, URINE NEGATIVE (NEGATIVE); TRICYCLIC ANTIDEPRESSANT,URINE NEGATIVE (NEGATIVE)
[2021-09-25 21:29] LABS: ALBUMIN 4.2 g/dL (3.2-5.5); ALBUMIN/GLOBULIN RATIO 0.9 (1.0-2.2); ALKALINE PHOSPHATASE 127 IU/L (42-121); ALT ALANINE AMINOTRANSFERASE 29 IU/L (10-60); AST ASPARTATE AMINOTRANSFERASE 60 IU/L (10-42); BILIRUBIN,TOTAL 1.1 mg/dL (0.2-1.0); BUN - BLOOD UREA NITROGEN 48 mg/dL (6-20); CALCIUM 9.9 mg/dL (8.5-10.3); CARBON DIOXIDE - CO2 24 mmol/L (21-32); CHLORIDE 100 mmol/L (101-111); CREATININE 1.5 mg/dL (0.4-1.0); ETOH - ETHANOL < 5.0 mg/dL; GFR - MDRD 35 (>89); GLUCOSE 121 mg/dL (70-100); MAGNESIUM 2.3 mg/dL (1.7-2.8); PHOSPHORUS 4.4 mg/dL (2.5-4.6); POTASSIUM 3.9 mmol/L (3.5-5.0); SODIUM 144 mmol/L (135-145); TOTAL PROTEIN 8.8 g/dL (6.7-8.2)
[2021-09-25 21:30] LABS: CK- CREATINE KINASE 2406 IU/L (22-269)
[2021-09-25] MEDS ORDERED: SODIUM CHLORIDE 0.9% 1,000 ML IV STA ×2 (21:34)
[2021-09-25 21:38] LABS: B. PARAPERTUSSIS- RESP PCR PAN NOT DETECTED; B. PERTUSSIS- RESP PCR PANEL NOT DETECTED; C. PNEUMONIAE- RESP PCR PANEL NOT DETECTED; CORONAVIRUS 229E-RESP PCR NOT DETECTED; CORONAVIRUS HKU1-RESP PCR NOT DETECTED; CORONAVIRUS NL63-RESP PCR NOT DETECTED; CORONAVIRUS OC43-RESP PCR NOT DETECTED; HUMAN METAPNEUMOVIRUS NOT DETECTED; INFLUENZA A- RESP PCR PANEL NOT DETECTED; INFLUENZA B - RESP PCR PANEL NOT DETECTED; M. PNEUMONIAE- RESP PCR PANEL NOT DETECTED; PARAINFLUENZA VIRUS 1 NOT DETECTED; PARAINFLUENZA VIRUS 2 NOT DETECTED; PARAINFLUENZA VIRUS 3 NOT DETECTED; PARAINFLUENZA VIRUS 4 NOT DETECTED; RHINOVIRUS/ENTEROVIRUS NOT DETECTED; RSV- RESP PCR PANEL NOT DETECTED; SARS-CoV-2 -RESP PCR PANEL NOT DETECTED
--- NOTE | 2021-09-25 21:41 | CT Report ---
PROCEDURE: HEAD WO INDICATIONS: ams, poss head inj TECHNIQUE: Noncontrast 4.5 mm thick angled axial sections acquired from the foramen magnum to the vertex. For r adiation dose reduction, the following was used: automated exposure control, adjustment of mA and/or kV according to patient size. COMPARISON: 09/07/21. FINDINGS: Image quality: Excellent. CSF spaces: There is mild cerebral volume loss with prominence of the ventricles and sulci. Basal ci sterns are patent. No extra-axial fluid collections. Brain: No intracranial hemorrhage, mass, or mass effect. Zavaleta-white matter interface is preserved. T here are subcortical and periventricular white matter hypodensities consistent with moderate chronic small vessel ischemic changes. Hypodensities redemonstrated within the left basal ganglia consistent with prior lacunar infarct. Skull and face: Calvarium and visualized facial bones are intact, without suspicious lesions. Sinuses: Visualized sinuses and mastoids are clear. IMPRESSION: 1. No acute intracranial abnormality. 2. Moderate chronic white matter small vessel ischemic changes and sequela of a prior left basal gang jaime infarct redemonstrated. Reviewed by: Tyrone Alarcon MD on 09/25/2021 9:39 PM PDT Approved by: Tyrone Alarcon MD on 09/25/2021 9:39 PM PDT Station ID: [id number]
--- NOTE | 2021-09-25 21:45 | CT Report ---
PROCEDURE: CERVICAL SPINE WO INDICATIONS: ams, poss head inj TECHNIQUE: Noncontrast 3 mm thick sections acquired from the skull base to the T4 level. Sagittal and coronal r eformats were then constructed. For radiation dose reduction, the following was used: automated exp osure control, adjustment of mA and/or kV according to patient size. COMPARISON: 08/23/2021, 12/11/2020, 01/09/2015. FINDINGS: Image quality: Excellent. Bones: No fractures or subluxation. There is straightening of the cervical lordosis. Multilevel dege nerative disc disease demonstrated including moderate degeneration in the mid and lower cervical spin e. There is mild multilevel facet arthropathy. Visualized superior ribs are intact. Soft tissues: Prevertebral soft tissues are normal in thickness. No paravertebral hematomas. No ap ical pneumothoraces. Visualized lungs demonstrate irregular spiculated nodule in the right apex which appears similar to the prior studies and likely represents scarring. IMPRESSION: 1. No fracture or subluxation. 2. Multilevel degenerative changes of the cervical spine as described. 3. Irregular nodule in the right apex appears similar to the prior studies and likely represents scar ring. Reviewed by: Tyrone Alarcon MD on 09/25/2021 9:44 PM PDT Approved by: Tyrone Alarcon MD on 09/25/2021 9:44 PM PDT Station ID: [id number]
[2021-09-25] MEDS ORDERED: SODIUM CHLORIDE FLUSH 0.9% 10 ML SYRINGE IVP PRN (21:54)
--- NOTE | 2021-09-25 21:57 | HISTORY & PHYSICAL EXAMINATION ---
Chief Complaint - Chief Complaint Chief Complaint: altered mental status History of Present Illness - Admitted From Admitted From:: [facility] ED - History Obtained From Records Reviewed: yes History obtained from: ED physician Exam Limitations: poor historian, altered mental status - History of Present Illness HPI Comment/Other: "65-year-old woman brought in by ambulance for altered mental status. Repor tedly last seen yesterday. She is able to state she fell off the couch and was on the floor, was not able to state why she could not get back up. She was found on the floor next to the couch by paramedics. She is altered and unable to give much of the history. When asked if she is in pain she says yes, unable to state where. Review of the chart shows that this is a recurrent phenomenon with multiple admissions with almost the exact same presenting complaint." The HPI above is obtained from the ED physicians H&P because the patient is poor historian unable to give her reliable history. 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 The patient has been adopted by a stepfather and he is still alive in his 80s. Her father of bone cancer when she was a very little girl. Mom is and of heart disease but had lung cancer before she . 1 brother of the same bone cancer that his father of. 1 brother is alive but has A. fib. No sisters. No children. Living Situation: Alone Social History Notes: Unable to update the social history given her encephalopathy but review of prior review of systems revealed that she is a smoker and does not have a history of alcohol abuse. She has a history of illic it drug use, probably LSD back in the 1970s. - Substance History Use: Uses substance without health or social issues: Tobacco - POLST Patient has POLST: No POLST Status: Full Code Meds/Allgy - Home Medications Home Medications: Ambulatory Orders Medication Instructions Recorded Confirmed Levothyroxine Sodium 50 mcg PO QDAC 07/18/19 09/07/21 Multivitamin/Iron/Folic Acid 1 ea ORAL DAILY 07/18/19 09/07/21 [Centrum Women Tablet] Calcium Carbonate/Vitamin D3 1 each PO DAILY 12/09/20 09/07/21 [Calcium 500Mg-Vit D3 15Mcg Tab] Atorvastatin [Lipitor] 40 mg PO QPM #0 12/21/20 09/07/21 Furosemide [Lasix] 10 mg PO DAILY 02/12/21 09/07/21 Potassium Chloride [Klor-Con 10] 10 meq PO DAILY 02/12/21 09/07/21 Cholecalciferol [Vitamin D3] 25 mcg PO DAILY 02/13/21 09/07/21 Levetiracetam [Keppra] 500 mg PO BID 04/16/21 09/07/21 Metoprolol Succinate [Toprol Xl] 25 mg PO DAILY 08/31/21 09/07/21 Baclofen [Lioresal] 20 mg PO HS 09/08/21 09/08/21 Ciprofloxacin [Cipro] 250 mg PO Q12H 5 Days #10 tablet 09/09/21 - Allergies Allergies/Adverse Reactions: Allergies Allergy/AdvReac Type Severity Reaction Status Date / Time No Known Drug Allergies Allergy Verified 09/25/21 20:26 Review of Systems - Other Findings Other Findings: A 12 point review of system is limited because the patient has altered mental status and is unable to provide a reliable history. Prior Level of Functionality: Patient lives alone. She will be appropriate for long-term care however patient has declined in the past. Exam - Vital Signs Vital Signs: Vital Signs x48h Temp Pulse Resp BP Pulse Ox 09/25/21 21:54 99 24 115/75 94 09/25/21 21:26 37.4 C 100 22 111/78 95 09/25/21 21:09 37.8 C 97 25 H 111/72 97 09/25/21 21:02 108 H 24 114/80 100 09/25/21 20:34 103 H 31 H 114/80 100 09/25/21 20:15 36.9 C 90 18 95/79 96 - Physical Exam General Appearance: positive: No acute distress Eyes Bilateral: positive: PERRL, EOMI ENT: positive: Dry mucous membranes Neck: positive: No JVD, Trachea midline Respiratory: positive: Chest non-tender, No respiratory distress, Breath sounds nml. negative: Wheezes, Rales, Rhonchi Cardiovascular: positive: Regular rate & rhythm Abdomen: positive: Non-tender, No organomegaly, Nml bowel sounds, No distention. negative: Guarding, Rebound Skin: positive: Skin rash (Psoaritic rash) Extremities: positive: Non-tender, Full ROM, No pedal edema Neurologic/Psychiatric: positive: Mood/affect nml, Disoriented to place, Disoriented to time, Other (oriented to self mainly) Conclusion/Plan - Problem List (1) Acute encephalopathy Conclusion/Plan: Etiology undetermined. CT of head and neck showed no acute intracranial abnormalities. Toxicology was negative. IV hydration. We will hold any sedating medication. (2) Rhabdomyolysis Conclusion/Plan: Creatine kinase was 06/09/2005. Patient given IV hydration in the ED. Will continue with normal saline at 125 mL/h. Will monitor CK daily. Qualifiers: Rhabdomyolysis type: non-traumatic Qualified Code(s): M62.82 - Rha bdomyolysis (3) Leukocytosis Conclusion/Plan: Etiology undetermined. Reactive versus infectious. WBC was 20.0. Urine analysis was unremarkable. Chest x-ray showed no acute cardiopulmonary process Patient not having any respiratory symptoms. Will monitor for now. If patient becomes febrile, will obtain blood cultures and consider empiric antibiotics. (4) KJ (acute kidney injury) Conclusion/Plan: Creatinine was 1.5 with estimated GFR of 35. Currently on IV hydration with normal saline at 125 mL/h. (5) Hypothyroidism Conclusion/Plan: On Synthroid 50 mcg p.o. daily. (6) Seizure disorder Conclusion/Plan: Will resume patient's Keppra. - Lab Results Fish Bones: 09/25/21 20:26 09/25/21 20:26 Core Measures - Anticipated LOS I expect patient to be DC'd or transferred within 96 hours.: Yes - DVT/VTE - Prophylaxis VTE/DVT Device ordered at admit?: Yes
[2021-09-25] MEDS ORDERED: SODIUM CHLORIDE 0.9% 1,000 ML IV SCH (22:00)
--- NOTE | 2021-09-25 22:15 | XRAY Report ---
PROCEDURE: Chest 1 View X-Ray INDICATIONS: ams TECHNIQUE: One view of the chest was acquired. COMPARISON 08/31/2021 FINDINGS: Surgical changes and devices: None. Lungs and pleura: No pleural effusions or pneumothorax. Lungs are clear. Mediastinum: Mediastinal contours appear normal. Heart size is normal. Bones and chest wall: No suspicious bony lesions. No displaced fractures. Overlying soft tissues elin ear unremarkable. IMPRESSION: 1. No acute cardiopulmonary disease. Reviewed by: Tyrone Alarcon MD on 09/25/2021 10:13 PM PDT Approved by: Tyrone Alarcon MD on 09/25/2021 10:13 PM PDT Station ID: [id number]
[2021-09-25] MEDS: SODIUM CHLORIDE 0.9% 1,000 ML IV SCH (22:41)
[2021-09-26] MEDS: SODIUM CHLORIDE FLUSH 0.9% 10 ML SYRINGE IVP SCH ×3 (01:20→15:52)
[2021-09-26] MEDS: ACETAMINOPHEN 325 MG TABLET PO PRN ×4 (01:20→21:51)
[2021-09-26 05:09] LABS: BASOPHILS % (AUTO) 0.4 %; HCT - HEMATOCRIT 40.6 % (37.0-47.0); HGB - HEMOGLOBIN 13.4 g/dL (12.0-16.0); LYMPHOCYTES % (AUTO) 13.6 %; MEAN CORPUSCULAR HEMOGLOBIN 30.2 pg (27.0-31.0); MEAN CORPUSCULAR VOLUME 91.4 fL (81.0-99.0); MEAN PLATELET VOLUME 11.1 fL (7.9-10.8); MONOCYTES % (AUTO) 11.2 %; NEUTROPHILS % (AUTO) 74.4 %; PLT - PLATELET COUNT 282 10^3/uL (130-450); RED BLOOD COUNT 4.44 10^6/uL (4.20-5.40); RED CELL DISTRIBUTION WIDTH 14.1 % (12.0-15.0); WHITE BLOOD COUNT 16.3 x10^3/uL (4.8-10.8)
[2021-09-26 05:18] LABS: ABNORMAL LYMPHS % (MANUAL) 0 %; BAND NEUTROPHILS % (MANUAL) 0 %
[2021-09-26 05:32] LABS: LYMPHOCYTES # (MANUAL) 2.9 10^3/uL (1.5-3.5); LYMPHOCYTES % (MANUAL) 18 %; MONOCYTES # (MANUAL) 1.6 10^3/uL (0.0-1.0); NEUTROPHILS # (MANUAL) 11.7 10^3/uL (1.5-6.6)
[2021-09-26 05:33] LABS: DIFFERENTIAL COMMENT MANUAL DIFFERENTIAL; PLATELET ESTIMATE, MANUAL NORMAL (130-450,000) (NORMAL); PLATELET MORPHOLOGY NORMAL APPEARANCE (NORMAL); RBC MORPHOLOGY (MULTIPLE) NORMAL APPEARANCE (NORMAL); WBC MORPHOLOGY (MULTIPLE) NORMAL APPEARANCE (NORMAL)
[2021-09-26 05:42] LABS: CALCIUM 8.9 mg/dL (8.5-10.3); CREATININE 1.1 mg/dL (0.4-1.0); POTASSIUM 3.3 mmol/L (3.5-5.0)
[2021-09-26] MEDS: SODIUM CHLORIDE 0.9% 1,000 ML IV SCH ×3 (06:22→15:53)
[2021-09-26] MEDS ORDERED: POTASSIUM CHLORIDE 20 MEQ TABLET PO ONE (07:14)
--- NOTE | 2021-09-26 09:09 | XRAY Report ---
PROCEDURE: Chest 1 View X-Ray INDICATIONS: sob TECHNIQUE: One view of the chest was acquired. COMPARISON: 09/25/2021 FINDINGS: Surgical changes and devices: None. Lungs and pleura: No pleural effusions or pneumothorax. Lungs are clear. Mediastinum: Mediastinal contours appear normal. Heart size is normal. Bones and chest wall: No suspicious bony lesions. Overlying soft tissues appear unremarkable. IMPRESSION: Stable examination of the chest without acute cardiopulmonary abnormalities or focal airspace disease . Reviewed by: Joe Wooten MD on 09/26/2021 9:08 AM PDT Approved by: Joe Wooten MD on 09/26/2021 9:08 AM PDT Station ID: [id number]
[2021-09-26] MEDS: levETIRAcetam 250 MG TABLET PO SCH ×2 (09:58→21:51)
[2021-09-26] MEDS: ENOXAPARIN 40 MG/0.4 ML SYRINGE SUBQ SCH (09:58)
--- NOTE | 2021-09-26 10:48 | PHARMACY PROGRESS NOTE ---
- Best Possible Medication History Admit Date and Time: 09/25/212153 Processed by: Pharmacy Medication History completed: Yes Secondary Source(s): Previous admit records As the person ultimately responsible for medication therapy, providers are able to order a medication from an existing home medication list in [facility] via the "Reconcile Routine" prior to Confirmation of that medication by technical sales support specialist. Such practice is discouraged except when the physician, in their clinical judgment, deems that a medical need exists for a medication without regard to previous use.
--- NOTE | 2021-09-26 10:53 | PROVIDER PROGRESS NOTE ---
Assessment/Plan - Problem List (1) Acute encephalopathy Assessment/Plan: 09/26 pt still present some confusion in the morning. CT of head and neck showed no acute intracranial abnormalities. pt had fall in the home, rhabdomyolysis, and KJ at this admission. Etiology is unclear. we will continue neuro check, IVF, and PT/OT for pt (2) Rhabdomyolysis CK is down to 2000 from 2400. elevated CK is likely secondary to her fall and muscle injury in the home, creatinine is improved now. continue IVF, and lab monitor (3) Leukocytosis Conclusion/Plan: improved. WBC is 16 now. Etiology is undetermined. CXR and UA does not support infection. pt has no fever. it is unlikely caused by infection. It is more likely relative to reaction, continue IVF, and lab monitor (4) KJ (acute kidney injury) improved. creatinine is 1.1 on today from 1.5 at admission. continue IVF and lab monitor (5) Hypothyroidism TSH is normal arrange. On Synthroid 50 mcg p.o. daily. (6) Seizure disorder Conclusion/Plan: pt has no seizure and stable now. we resume patient's Keppra. - Current Meds Current Meds: Current Medications Generic Name Dose Route Start Last Admin Trade Name Freq PRN Reason Stop Dose Admin Acetaminophen 650 mg 09/25/21 21:54 09/26/21 07:51 Acetaminophen 325 Mg Tablet PO 650 mg Q4HR PRN Administration Pain 1 to 4, or Fever Enoxaparin Sodium 40 mg 09/26/21 09:00 09/26/21 09:58 Enoxaparin 40 Mg/0.4 Ml Syringe SUBQ 40 mg DAILY JIN Administration Sodium Chloride 1,000 mls @ 100 mls/hr 09/26/21 08:44 09/26/21 09:57 Normal Saline 0.9% IV Not Given .Q10H JIN Levetiracetam 500 mg 09/26/21 09:00 09/26/21 09:58 Levetiracetam 250 Mg Tablet PO 500 mg BID JIN Administration Sodium Chloride 10 ml 09/26/21 01:00 09/26/21 07:51 Sodium Chloride Flush 0.9% 10 Ml Syringe IVP Not Given 0100,0900,1700 JIN - Lab Result Fish Bone Diagrams: 09/26/21 04:44 09/26/21 04:44 - Additional Planning My Orders: My Active Orders 09/26/21 08:11 LEVETIRACETAM (KEPPRA) [REFLAB] Urgent 09/26/21 08:44 Sodium Chloride 0.9% [Normal Saline 0.9%] 1,000 ml IV 100 mls/hr 09/26/21 09:00 Enoxaparin [Lovenox] 40 mg SUBQ DAILY levETIRAcetam [Keppra] 500 mg PO BID 09/27/21 07:00 Levothyroxine [Synthroid] 50 mcg PO QDAC Subjective - Subjective Patient Reports: Resting Comfortably Nursing Reports: Confused Objective Vital Signs: Vital Signs - 24 hr 09/25/21 09/25/21 09/25/21 20:15 20:34 21:02 Temperature 36.9 C Heart Rate 90 103 H 108 H Heart Rate [ Brachial] Respiratory 18 31 H 24 Rate Blood Pressure 95/79 114/80 114/80 Blood Pressure [Left Brachial artery] Blood Pressure [Right Brachial artery] O2 Saturation 96 100 100 09/25/21 09/25/21 09/25/21 21:09 21:26 21:54 Temperature 37.8 C 37.4 C Heart Rate 97 100 99 Heart Rate [ Brachial] Respiratory 25 H 22 24 Rate Blood Pressure 111/72 111/78 115/75 Blood Pressure [Left Brachial artery] Blood Pressure [Right Brachial artery] O2 Saturation 97 95 94 09/25/21 09/25/21 09/25/21 22:15 22:35 22:53 Temperature 37.3 C 36.9 C Heart Rate 91 94 Heart Rate [ 100 Brachial] Respiratory 20 22 16 Rate Blood Pressure 124/75 124/75 Blood Pressure [Left Brachial artery] Blood Pressure 110/87 H [Right Brachial artery] O2 Saturation 94 98 95 09/26/21 09/26/21 09/26/21 00:01 04:58 07:47 Temperature 36.3 C L 36.7 C 37 C Heart Rate Heart Rate [ 85 95 95 Brachial] Respiratory 18 18 20 Rate Blood Pressure Blood Pressure 115/62 [Left Brachial artery] Blood Pressure 116/68 115/69 [Right Brachial artery] O2 Saturation 98 92 91 L Oxygen O2 Source [With Activity] Room air O2 Source [Without Activity] Room air O2 Source Room air I&O (Last 24 Hrs): Intake and Output Totals x24h 09/24/21 09/25/21 09/26/21 23:59 23:59 23:59 Intake Total 800 1821.250 Output Total 400 Balance 400 1821.250 General: Alert, Mild distress HEENT: Atraumatic Neck: Supple Lymphatic: no adenopathy Neuro: Alert, Non Focal Cardiovascular: Regular rate, Normal S1, Normal S2 Respiratory: Chest non-tender, No respiratory distress Abdomen: Normal bowel sounds, Soft Extremities: Normal pulses - Results Results: Laboratory Results WBC 16.3 x10^3/uL (4.8-10.8) H 09/26/21 04:44 RBC 4.44 10^6/uL (4.20-5.40) 09/26/21 04:44 Hgb 13.4 g/dL (12.0-16.0) 09/26/21 04:44 Hct 40.6 % (37.0-47.0) 09/26/21 04:44 MCV 91.4 fL (81.0-99.0) 09/26/21 04:44 MCH 30.2 pg (27.0-31.0) 09/26/21 04:44 MCHC 33.0 g/dL (32.0-36.0) 09/26/21 04:44 RDW 14.1 % (12.0-15.0) 09/26/21 04:44 Plt Count 282 10^3/uL (130-450) 09/26/21 04:44 MPV 11.1 fL (7.9-10.8) H 09/26/21 04:44 Neut # (Auto) Not Reportable 09/26/21 04:44 Lymph # (Auto) Not Reportable 09/26/21 04:44 [place] # (Auto) Not Reportable 09/26/21 04:44 Eos # (Auto) Not Reportable 09/26/21 04:44 Baso # (Auto) Not Reportable 09/26/21 04:44 Absolute Nucleated RBC Not Reportable 09/26/21 04:44 Total Counted 100 09/26/21 04:44 Band Neuts % (Manual) 0 % (0-10) 09/26/21 04:44 Abnorm Lymph % (Manual) 0 % 09/26/21 04:44 Nucleated RBC % Not Reportable 09/26/21 04:44 Neutrophils # (Manual) 11.7 10^3/uL (1.5-6.6) H 09/26/21 04:44 Lymphocytes # (Manual) 2.9 10^3/uL (1.5-3.5) 09/26/21 04:44 Monocytes # (Manual) 1.6 10^3/uL (0.0-1.0) H 09/26/21 04:44 Eosinophils # (Manual) 0.0 10^3/uL (0-0.7) 09/26/21 04:44 Basophils # (Manual) 0.0 10^3/uL (0-0.1) 09/26/21 04:44 Differential Comment MANUAL DIFFERENTIAL 09/26/21 04:44 Manual Slide Review Indicated 09/25/21 20:26 WBC Morphology NORMAL APPEARANCE (NORMAL) 09/26/21 04:44 Platelet Estimate NORMAL (130-450,000) (NORMAL) 09/26/21 04:44 Platelet Morphology NORMAL APPEARANCE (NORMAL) 09/26/21 04:44 RBC Morph Micro Appear NORMAL APPEARANCE (NORMAL) 09/26/21 04:44 PT 12.9 secs (9.9-12.6) H 09/25/21 20:26 INR 1.2 (0.8-1.2) 09/25/21 20:26 VBG pH 7.467 (7.31-7.41) H 09/25/21 20:38 VBG pCO2 35.8 mmHg (41-51) L 09/25/21 20:38 VBG pO2 43.3 mmHg (25-47) 09/25/21 20:38 VBG HCO3 25.3 mmol/L (23-28) 09/25/21 20:38 VBG Total CO2 26.4 mmol/L (24-29) 09/25/21 20:38 VBG O2 Saturation 79.3 % (60-80) 09/25/21 20:38 VBG Base Excess 2.0 mmol/L (-2 - +2) 09/25/21 20:38 Sodium 139 mmol/L (135-145) 09/26/21 04:44 Potassium 3.3 mmol/L (3.5-5.0) L 09/26/21 04:44 Chloride 105 mmol/L (101-111) 09/26/21 04:44 Carbon Dioxide 22 mmol/L (21-32) 09/26/21 04:44 Anion Gap 12.0 (6-13) 09/26/21 04:44 BUN 42 mg/dL (6-20) H 09/26/21 04:44 Creatinine 1.1 mg/dL (0.4-1.0) H 09/26/21 04:44 Estimated GFR (MDRD) 50 (>89) L 09/26/21 04:44 Glucose 105 mg/dL (70-100) H 09/26/21 04:44 Lactic Acid 1.8 mmol/L (0.5-2.2) 09/25/21 23:38 Calcium 8.9 mg/dL (8.5-10.3) 09/26/21 04:44 Phosphorus 4.4 mg/dL (2.5-4.6) 09/25/21 20:26 Magnesium 2.3 mg/dL (1.7-2.8) 09/25/21 20:26 Total Bilirubin 1.1 mg/dL (0.2-1.0) H 09/25/21 20:26 AST 60 IU/L (10-42) H 09/25/21 20:26 ALT 29 IU/L (10-60) 09/25/21 20:26 Alkaline Phosphatase 127 IU/L (42-121) H 09/25/21 20:26 Total Creatine Kinase 2039 IU/L (22-269) H* 09/26/21 04:44 Total Protein 8.8 g/dL (6.7-8.2) H 09/25/21 20:26 Albumin 4.2 g/dL (3.2-5.5) 09/25/21 20:26 Globulin 4.6 g/dL (2.1-4.2) H 09/25/21 20:26 Albumin/Globulin Ratio 0.9 (1.0-2.2) L 09/25/21 20:26 TSH 0.87 uIU/mL (0.34-5.60) 09/26/21 04:44 Urine Color YELLOW 09/25/21 20:48 Urine Clarity CLEAR (CLEAR) 09/25/21 20:48 Urine pH 5.5 PH (5.0-7.5) 09/25/21 20:48 Ur Specific [place] 1.025 (1.002-1.030) 09/25/21 20:48 Urine Protein NEGATIVE mg/dL (NEGATIVE) 09/25/21 20:48 Urine Glucose (UA) NEGATIVE mg/dL (NEGATIVE) 09/25/21 20:48 Urine Ketones NEGATIVE mg/dL (NEGATIVE) 09/25/21 20:48 Urine Occult Blood TRACE-INTA (NEGATIVE) 09/25/21 20:48 Urine Nitrite NEGATIVE (NEGATIVE) 09/25/21 20:48 Urine Bilirubin NEGATIVE (NEGATIVE) 09/25/21 20:48 Urine Urobilinogen 0.2 (NORMAL) E.U./dL (NORMAL) 09/25/21 20:48 Ur Leukocyte Esterase NEGATIVE (NEGATIVE) 09/25/21 20:48 Ur Microscopic Review NOT INDICATED 09/25/21 20:48 Urine Culture Comments NOT INDICATED 09/25/21 20:48 Nasal Adenovirus (PCR) NOT DETECTED 09/25/21 20:30 Nasal B. parapertussis DNA (PCR) NOT DETECTED 09/25/21 20:30 Nasal Coronavir 229E PCR NOT DETECTED 09/25/21 20:30 Nasal Coronavir HKU1 PCR NOT DETECTED 09/25/21 20:30 Nasal Coronavir NL63 PCR NOT DETECTED 09/25/21 20:30 Nasal Coronavir OC43 PCR NOT DETECTED 09/25/21 20:30 Nasal Enterovir/Rhinovir PCR NOT DETECTED 09/25/21 20:30 Nasal Influenza B PCR NOT DETECTED 09/25/21 20:30 Nasal Influenza A PCR NOT DETECTED 09/25/21 20:30 Nasal Parainfluen 1 PCR NOT DETECTED 09/25/21 20:30 Nasal Parainfluen 2 PCR NOT DETECTED 09/25/21 20:30 Nasal Parainfluen 3 PCR NOT DETECTED 09/25/21 20:30 Nasal Parainfluen 4 PCR NOT DETECTED 09/25/21 20:30 Nasal RSV (PCR) NOT DETECTED 09/25/21 20:30 Nasal B.pertussis DNA PCR NOT DETECTED 09/25/21 20:30 Nasal C.pneumoniae (PCR) NOT DETECTED 09/25/21 20:30 Jaya Human Metapneumo PCR NOT DETECTED 09/25/21 20:30 Nasal M.pneumoniae (PCR) NOT DETECTED 09/25/21 20:30 Nasal SARS-CoV-2 (PCR) NOT DETECTED 09/25/21 20:30 Urine Opiates Screen NEGATIVE (NEGATIVE) 09/25/21 20:48 Ur Oxycodone Screen NEGATIVE (NEGATIVE) 09/25/21 20:48 Urine Methadone Screen NEGATIVE (NEGATIVE) 09/25/21 20:48 Ur Propoxyphene Screen NEGATIVE (NEGATIVE) 09/25/21 20:48 Ur Barbiturates Screen NEGATIVE (NEGATIVE) 09/25/21 20:48 Ur Tricyclics Screen NEGATIVE (NEGATIVE) 09/25/21 20:48 Ur Phencyclidine Scrn NEGATIVE (NEGATIVE) 09/25/21 20:48 Ur Amphetamine Screen NEGATIVE (NEGATIVE) 09/25/21 20:48 U Methamphetamines Scrn NEGATIVE (NEGATIVE) 09/25/21 20:48 U Benzodiazepines Scrn NEGATIVE (NEGATIVE) 09/25/21 20:48 Urine Cocaine Screen NEGATIVE (NEGATIVE) 09/25/21 20:48 U Cannabinoids Screen NEGATIVE (NEGATIVE) 09/25/21 20:48 Ethyl Alcohol < 5.0 mg/dL 09/25/21 20:26 ABX Reporting Has patient been on IV antibiotics over the past 48 hours?: No Current Medications - Current Medications Current Medications: Active Medications Acetaminophen (Acetaminophen 325 Mg Tablet) 650 mg PO Q4HR PRN PRN Reason: Pain 1 to 4, or Fever Last Admin: 09/26/21 07:51 Dose: 650 mg Atorvastatin Calcium (Atorvastatin 40 Mg Tablet) 40 mg PO QPM JIN Baclofen (Baclofen 10 Mg Tablet) 20 mg PO HS [facility] Enoxaparin Sodium (Enoxaparin 40 Mg/0.4 Ml Syringe) 40 mg SUBQ DAILY [facility] Last Admin: 09/26/21 09:58 Dose: 40 mg Sodium Chloride (Normal Saline 0.9%) 1,000 mls @ 100 mls/hr IV .Q10H [facility] Last Admin: 09/26/21 09:57 Dose: Not Given Levetiracetam (Levetiracetam 250 Mg Tablet) 500 mg PO BID [facility] Last Admin: 09/26/21 09:58 Dose: 500 mg Levothyroxine Sodium (Levothyroxine 25 Mcg Tablet) 50 mcg PO QDAC [facility] Metoprolol Succinate (Metoprolol Succinate 25 Mg Tablet) 25 mg PO DAILY [facility] Sodium Chloride (Sodium Chloride Flush 0.9% 10 Ml Syringe) 10 ml IVP PRN PRN PRN Reason: NEEDED PER PROVIDER ORDERS Sodium Chloride (Sodium Chloride Flush 0.9% 10 Ml Syringe) 10 ml IVP 0100,0900,1700 JIN Last Admin: 09/26/21 07:51 Dose: Not Given Levothyroxine Sodium 50 mcg PO QDAC 07/18/19 Multivitamin/Iron/Folic Acid [Centrum Women Tablet] 1 ea ORAL DAILY 07/18/19 Calcium Carbonate/Vitamin D3 [Calcium 500Mg-Vit D3 15Mcg Tab] 1 each PO DAILY 12/09/20 Furosemide [Lasix] 10 mg PO DAILY 02/12/21 Potassium Chloride [Klor-Con 10] 10 meq PO DAILY 02/12/21 Cholecalciferol [Vitamin D3] 25 mcg PO DAILY 02/13/21 Levetiracetam [Keppra] 500 mg PO BID 04/16/21 Metoprolol Succinate [Toprol Xl] 25 mg PO DAILY 08/31/21 Baclofen [Lioresal] 20 mg PO HS 09/08/21
[2021-09-26] MEDS: CYANOCOBALAMIN 500 MCG TABLET PO SCH (13:25)
[2021-09-26] MEDS: polyethylene glycoL 3350 17 GM PACKET PO SCH (15:52)
[2021-09-26] MEDS: ATORVASTATIN 40 MG TABLET PO SCH (21:51)
[2021-09-26] MEDS: BACLOFEN 10 MG TABLET PO SCH (21:51)
[2021-09-26] MEDS ORDERED: ZINC OXIDE 20% OINT 30 GM TUBE TOP PRN (22:48)
[2021-09-27] MEDS: SODIUM CHLORIDE 0.9% 1,000 ML IV SCH ×3 (00:57→19:53)
[2021-09-27] MEDS: SODIUM CHLORIDE FLUSH 0.9% 10 ML SYRINGE IVP SCH ×4 (00:58→23:51)
[2021-09-27 05:22] LABS: BASOPHILS # (AUTO) 0.1 10^3/uL (0.0-0.1); BASOPHILS % (AUTO) 0.7 %; EOSINOPHILS % (AUTO) 0.1 %; HCT - HEMATOCRIT 35.1 % (37.0-47.0); HGB - HEMOGLOBIN 11.4 g/dL (12.0-16.0); LYMPHOCYTES # (AUTO) 2.6 10^3/uL (1.5-3.5); LYMPHOCYTES % (AUTO) 28.7 %; MEAN CORPUSCULAR HEMOGLOBIN 29.8 pg (27.0-31.0); MEAN CORPUSCULAR HGB CONC 32.5 g/dL (32.0-36.0); MEAN CORPUSCULAR VOLUME 91.6 fL (81.0-99.0); MEAN PLATELET VOLUME 11.2 fL (7.9-10.8); MONOCYTES # (AUTO) 0.9 10^3/uL (0.0-1.0); MONOCYTES % (AUTO) 9.8 %; NEUTROPHILS # (AUTO) 5.5 10^3/uL (1.5-6.6); NEUTROPHILS % (AUTO) 60.3 %; PLT - PLATELET COUNT 237 10^3/uL (130-450); RED BLOOD COUNT 3.83 10^6/uL (4.20-5.40); RED CELL DISTRIBUTION WIDTH 14.3 % (12.0-15.0); WHITE BLOOD COUNT 9.1 x10^3/uL (4.8-10.8)
[2021-09-27 05:32] LABS: CALCIUM 8.6 mg/dL (8.5-10.3); CREATININE 0.8 mg/dL (0.4-1.0); POTASSIUM 3.8 mmol/L (3.5-5.0)
[2021-09-27] MEDS: LEVOTHYROXINE 25 MCG TABLET PO SCH (06:09)
[2021-09-27] MEDS: ACETAMINOPHEN 325 MG TABLET PO PRN ×4 (06:14→20:06)
[2021-09-27] MEDS: METOPROLOL SUCCINATE 25 MG TABLET PO SCH (07:57)
[2021-09-27] MEDS: levETIRAcetam 250 MG TABLET PO SCH ×2 (07:57→20:05)
[2021-09-27] MEDS: ENOXAPARIN 40 MG/0.4 ML SYRINGE SUBQ SCH (07:58)
[2021-09-27] MEDS: CETIRIZINE 10 MG TABLET PO SCH (07:58)
[2021-09-27] MEDS: CYANOCOBALAMIN 500 MCG TABLET PO SCH (07:58)
[2021-09-27] MEDS: polyethylene glycoL 3350 17 GM PACKET PO SCH (07:58)
--- NOTE | 2021-09-27 10:38 | PROVIDER PROGRESS NOTE ---
Assessment/Plan - Problem List (1) Acute encephalopathy Assessment/Plan: 09/27 pt's mental status is improved. creatinine 0.8 and BUN 26, and CK is 866, are improved. continue IVF and lab monitor 09/26 pt still present some confusion in the morning. CT of head and neck showed no acute intracranial abnormalities. pt had fall in the home, rhabdomyolysis, and KJ at this admission. Etiology is unclear. we will continue neuro check, IVF, and PT/OT for pt (2) Rhabdomyolysis 09/27 improved. CK is 866, pt report her pain is better controlled. continue IVF and lab monitor CK is down to 2000 from 2400. elevated CK is likely secondary to her fall and muscle injury in the home, creatinine is improved now. continue IVF, and lab monitor (3) Leukocytosis Conclusion/Plan: 09/27 resolved. WBC is 9.1 improved. WBC is 16 now. Etiology is undetermined. CXR and UA does not support infection. pt has no fever. it is unlikely caused by infection. It is more likely relative to reaction, continue IVF, and lab monitor (4) KJ (acute kidney injury) 09/27 resolved. Creatinine is 0.8 improved. creatinine is 1.1 on today from 1.5 at admission. continue IVF and lab monitor (5) Hypothyroidism TSH is normal arrange. On Synthroid 50 mcg p.o. daily. (6) Seizure disorder Conclusion/Plan: pt has no seizure and stable now. we resume patient's Keppra. (7)fall pt fall from couch at her home. PT/OT had evaluation and treatment for her, and recommended to SNF. social sciences instructor was consulted for d/c planning. - Current Meds Current Meds: Current Medications Generic Name Dose Route Start Last Admin Trade Name Freq PRN Reason Stop Dose Admin Acetaminophen 650 mg 09/25/21 21:54 09/27/21 06:14 Acetaminophen 325 Mg Tablet PO 650 mg Q4HR PRN Administration Pain 1 to 4, or Fever Atorvastatin Calcium 40 mg 09/26/21 21:00 09/26/21 21:51 Atorvastatin 40 Mg Tablet PO 40 mg QPM JIN Administration Baclofen 20 mg 09/26/21 21:00 09/26/21 21:51 Baclofen 10 Mg Tablet PO 20 mg HS JIN Administration Cetirizine HCl 10 mg 09/27/21 09:00 09/27/21 07:58 Cetirizine 10 Mg Tablet PO 10 mg DAILY JIN Administration Cyanocobalamin 1,000 mcg 09/26/21 12:00 09/27/21 07:58 Cyanocobalamin 500 Mcg Tablet PO 10/05/21 12:00 1,000 mcg DAILY JIN Administration Enoxaparin Sodium 40 mg 09/26/21 09:00 09/27/21 07:58 Enoxaparin 40 Mg/0.4 Ml Syringe SUBQ 40 mg DAILY JIN Administration Sodium Chloride 1,000 mls @ 100 mls/hr 09/26/21 08:44 09/27/21 00:57 Normal Saline 0.9% IV 100 mls/hr .Q10H JIN Administration Levetiracetam 500 mg 09/26/21 09:00 09/27/21 07:57 Levetiracetam 250 Mg Tablet PO 500 mg BID JIN Administration Levothyroxine Sodium 50 mcg 09/27/21 07:00 09/27/21 06:09 Levothyroxine 25 Mcg Tablet PO 50 mcg QDAC JIN Administration Metoprolol Succinate 25 mg 09/27/21 09:00 09/27/21 07:57 Metoprolol Succinate 25 Mg Tablet PO 25 mg DAILY JIN Administration Polyethylene Glycol 17 gm 09/26/21 16:00 09/27/21 07:58 Polyethylene Glycol 3350 17 Gm Packet PO 17 gm DAILY JIN Administration Sodium Chloride 10 ml 09/26/21 01:00 09/27/21 07:59 Sodium Chloride Flush 0.9% 10 Ml Syringe IVP Not Given 0100,0900,1700 JIN - Lab Result Fish Bone Diagrams: 09/27/21 04:45 09/27/21 04:45 - Additional Planning My Orders: My Active Orders 09/26/21 10:59 Neuro Check [RC] QSHIFT 09/26/21 21:00 Atorvastatin [Lipitor] 40 mg PO QPM Baclofen [Lioresal] 20 mg PO HS 09/27/21 Social Work Consult [CONS] Routine 09/27/21 07:00 Levothyroxine [Synthroid] 50 mcg PO QDAC 09/27/21 08:20 Temazepam [Restoril] 15 mg PO QPM PRN 09/27/21 09:00 Metoprolol Succinate [Toprol Xl] 25 mg PO DAILY Subjective - Subjective Patient Reports: Resting Comfortably Objective Vital Signs: Vital Signs - 24 hr 09/26/21 09/26/21 09/26/21 11:20 11:35 15:55 Temperature 37.0 C 36.5 C Heart Rate [ 99 Activity] Heart Rate [ 88 84 Brachial] Heart Rate [ 94 Sitting] Heart Rate [ 98 Standing] Heart Rate [ 82 Supine] Respiratory 18 20 Rate Blood Pressure 110/74 [Activity] Blood Pressure 95/53 L 120/62 [Left Brachial artery] Blood Pressure 111/65 [Sitting] Blood Pressure 122/67 [Standing] Blood Pressure 89/55 L [Supine] O2 Saturation 94 94 09/26/21 09/26/21 09/27/21 21:00 23:41 06:01 Temperature 36.4 C L 36.5 C 36.4 C L Heart Rate [ Activity] Heart Rate [ 90 86 78 Brachial] Heart Rate [ Sitting] Heart Rate [ Standing] Heart Rate [ Supine] Respiratory 18 20 18 Rate Blood Pressure [Activity] Blood Pressure 105/60 116/61 114/59 L [Left Brachial artery] Blood Pressure [Sitting] Blood Pressure [Standing] Blood Pressure [Supine] O2 Saturation 100 95 93 09/27/21 07:56 Temperature Heart Rate [ Activity] Heart Rate [ 85 Brachial] Heart Rate [ Sitting] Heart Rate [ Standing] Heart Rate [ Supine] Respiratory 20 Rate Blood Pressure [Activity] Blood Pressure 121/70 [Left Brachial artery] Blood Pressure [Sitting] Blood Pressure [Standing] Blood Pressure [Supine] O2 Saturation 93 Oxygen O2 Source [With Activity] Room air O2 Source [Without Activity] Room air O2 Source Room air I&O (Last 24 Hrs): Intake and Output Totals x24h 09/25/21 09/26/21 09/27/21 23:59 23:59 23:59 Intake Total 800 3138.417 1026.667 Output Total 400 125 500 Balance 400 3013.417 526.667 General: Alert, No acute distress HEENT: Atraumatic Neck: Supple Lymphatic: no adenopathy Neuro: Alert, Non Focal Cardiovascular: Regular rate, Normal S1, Normal S2 Respiratory: Chest non-tender, No respiratory distress Abdomen: Normal bowel sounds, Soft Extremities: Normal pulses - Results Results: Laboratory Results WBC 9.1 x10^3/uL (4.8-10.8) 09/27/21 04:45 RBC 3.83 10^6/uL (4.20-5.40) L 09/27/21 04:45 Hgb 11.4 g/dL (12.0-16.0) L 09/27/21 04:45 Hct 35.1 % (37.0-47.0) L 09/27/21 04:45 MCV 91.6 fL (81.0-99.0) 09/27/21 04:45 MCH 29.8 pg (27.0-31.0) 09/27/21 04:45 MCHC 32.5 g/dL (32.0-36.0) 09/27/21 04:45 RDW 14.3 % (12.0-15.0) 09/27/21 04:45 Plt Count 237 10^3/uL (130-450) 09/27/21 04:45 MPV 11.2 fL (7.9-10.8) H 09/27/21 04:45 Neut # (Auto) 5.5 10^3/uL (1.5-6.6) 09/27/21 04:45 Lymph # (Auto) 2.6 10^3/uL (1.5-3.5) 09/27/21 04:45 Curry # (Auto) 0.9 10^3/uL (0.0-1.0) 09/27/21 04:45 Eos # (Auto) 0.0 10^3/uL (0.0-0.7) 09/27/21 04:45 Baso # (Auto) 0.1 10^3/uL (0.0-0.1) 09/27/21 04:45 Absolute Nucleated RBC 0.00 x10^3/uL 09/27/21 04:45 Total Counted 100 09/26/21 04:44 Band Neuts % (Manual) 0 % (0-10) 09/26/21 04:44 Abnorm Lymph % (Manual) 0 % 09/26/21 04:44 Nucleated RBC % 0.0 /100WBC 09/27/21 04:45 Neutrophils # (Manual) 11.7 10^3/uL (1.5-6.6) H 09/26/21 04:44 Lymphocytes # (Manual) 2.9 10^3/uL (1.5-3.5) 09/26/21 04:44 Monocytes # (Manual) 1.6 10^3/uL (0.0-1.0) H 09/26/21 04:44 Eosinophils # (Manual) 0.0 10^3/uL (0-0.7) 09/26/21 04:44 Basophils # (Manual) 0.0 10^3/uL (0-0.1) 09/26/21 04:44 Differential Comment MANUAL DIFFERENTIAL 09/26/21 04:44 Manual Slide Review Indicated 09/25/21 20:26 WBC Morphology NORMAL APPEARANCE (NORMAL) 09/26/21 04:44 Platelet Estimate NORMAL (130-450,000) (NORMAL) 09/26/21 04:44 Platelet Morphology NORMAL APPEARANCE (NORMAL) 09/26/21 04:44 RBC Morph Micro Appear NORMAL APPEARANCE (NORMAL) 09/26/21 04:44 PT 12.9 secs (9.9-12.6) H 09/25/21 20:26 INR 1.2 (0.8-1.2) 09/25/21 20:26 VBG pH 7.467 (7.31-7.41) H 09/25/21 20:38 VBG pCO2 35.8 mmHg (41-51) L 09/25/21 20:38 VBG pO2 43.3 mmHg (25-47) 09/25/21 20:38 VBG HCO3 25.3 mmol/L (23-28) 09/25/21 20:38 VBG Total CO2 26.4 mmol/L (24-29) 09/25/21 20:38 VBG O2 Saturation 79.3 % (60-80) 09/25/21 20:38 VBG Base Excess 2.0 mmol/L (-2 - +2) 09/25/21 20:38 Sodium 140 mmol/L (135-145) 09/27/21 04:45 Potassium 3.8 mmol/L (3.5-5.0) 09/27/21 04:45 Chloride 112 mmol/L (101-111) H 09/27/21 04:45 Carbon Dioxide 21 mmol/L (21-32) 09/27/21 04:45 Anion Gap 7.0 (6-13) 09/27/21 04:45 BUN 26 mg/dL (6-20) H 09/27/21 04:45 Creatinine 0.8 mg/dL (0.4-1.0) 09/27/21 04:45 Estimated GFR (MDRD) 72 (>89) L 09/27/21 04:45 Glucose 81 mg/dL (70-100) 09/27/21 04:45 Lactic Acid 1.8 mmol/L (0.5-2.2) 09/25/21 23:38 Calcium 8.6 mg/dL (8.5-10.3) 09/27/21 04:45 Phosphorus 4.4 mg/dL (2.5-4.6) 09/25/21 20:26 Magnesium 2.3 mg/dL (1.7-2.8) 09/25/21 20:26 Total Bilirubin 1.1 mg/dL (0.2-1.0) H 09/25/21 20:26 AST 60 IU/L (10-42) H 09/25/21 20:26 ALT 29 IU/L (10-60) 09/25/21 20:26 Alkaline Phosphatase 127 IU/L (42-121) H 09/25/21 20:26 Total Creatine Kinase 866 IU/L (22-269) H 09/27/21 04:45 Total Protein 8.8 g/dL (6.7-8.2) H 09/25/21 20:26 Albumin 4.2 g/dL (3.2-5.5) 09/25/21 20:26 Globulin 4.6 g/dL (2.1-4.2) H 09/25/21 20:26 Albumin/Globulin Ratio 0.9 (1.0-2.2) L 09/25/21 20:26 TSH 0.87 uIU/mL (0.34-5.60) 09/26/21 04:44 Urine Color YELLOW 09/25/21 20:48 Urine Clarity CLEAR (CLEAR) 09/25/21 20:48 Urine pH 5.5 PH (5.0-7.5) 09/25/21 20:48 Ur Specific [place] 1.025 (1.002-1.030) 09/25/21 20:48 Urine Protein NEGATIVE mg/dL (NEGATIVE) 09/25/21 20:48 Urine Glucose (UA) NEGATIVE mg/dL (NEGATIVE) 09/25/21 20:48 Urine Ketones NEGATIVE mg/dL (NEGATIVE) 09/25/21 20:48 Urine Occult Blood TRACE-INTA (NEGATIVE) 09/25/21 20:48 Urine Nitrite NEGATIVE (NEGATIVE) 09/25/21 20:48 Urine Bilirubin NEGATIVE (NEGATIVE) 09/25/21 20:48 Urine Urobilinogen 0.2 (NORMAL) E.U./dL (NORMAL) 09/25/21 20:48 Ur Leukocyte Esterase NEGATIVE (NEGATIVE) 09/25/21 20:48 Ur Microscopic Review NOT INDICATED 09/25/21 20:48 Urine Culture Comments NOT INDICATED 09/25/21 20:48 Nasal Adenovirus (PCR) NOT DETECTED 09/25/21 20:30 Nasal B. parapertussis DNA (PCR) NOT DETECTED 09/25/21 20:30 Nasal Coronavir 229E PCR NOT DETECTED 09/25/21 20:30 Nasal Coronavir HKU1 PCR NOT DETECTED 09/25/21 20:30 Nasal Coronavir NL63 PCR NOT DETECTED 09/25/21 20:30 Nasal Coronavir OC43 PCR NOT DETECTED 09/25/21 20:30 Nasal Enterovir/Rhinovir PCR NOT DETECTED 09/25/21 20:30 Nasal Influenza B PCR NOT DETECTED 09/25/21 20:30 Nasal Influenza A PCR NOT DETECTED 09/25/21 20:30 Nasal Parainfluen 1 PCR NOT DETECTED 09/25/21 20:30 Nasal Parainfluen 2 PCR NOT DETECTED 09/25/21 20:30 Nasal Parainfluen 3 PCR NOT DETECTED 09/25/21 20:30 Nasal Parainfluen 4 PCR NOT DETECTED 09/25/21 20:30 Nasal RSV (PCR) NOT DETECTED 09/25/21 20:30 Nasal B.pertussis DNA PCR NOT DETECTED 09/25/21 20:30 Nasal C.pneumoniae (PCR) NOT DETECTED 09/25/21 20:30 Jaya Human Metapneumo PCR NOT DETECTED 09/25/21 20:30 Nasal M.pneumoniae (PCR) NOT DETECTED 09/25/21 20:30 Nasal SARS-CoV-2 (PCR) NOT DETECTED 09/25/21 20:30 Urine Opiates Screen NEGATIVE (NEGATIVE) 09/25/21 20:48 Ur Oxycodone Screen NEGATIVE (NEGATIVE) 09/25/21 20:48 Urine Methadone Screen NEGATIVE (NEGATIVE) 09/25/21 20:48 Ur Propoxyphene Screen NEGATIVE (NEGATIVE) 09/25/21 20:48 Ur Barbiturates Screen NEGATIVE (NEGATIVE) 09/25/21 20:48 Ur Tricyclics Screen NEGATIVE (NEGATIVE) 09/25/21 20:48 Ur Phencyclidine Scrn NEGATIVE (NEGATIVE) 09/25/21 20:48 Ur Amphetamine Screen NEGATIVE (NEGATIVE) 09/25/21 20:48 U Methamphetamines Scrn NEGATIVE (NEGATIVE) 09/25/21 20:48 U Benzodiazepines Scrn NEGATIVE (NEGATIVE) 09/25/21 20:48 Urine Cocaine Screen NEGATIVE (NEGATIVE) 09/25/21 20:48 U Cannabinoids Screen NEGATIVE (NEGATIVE) 09/25/21 20:48 Ethyl Alcohol < 5.0 mg/dL 09/25/21 20:26 ABX Reporting Has patient been on IV antibiotics over the past 48 hours?: No Current Medications - Current Medications Current Medications: Active Medications Acetaminophen (Acetaminophen 325 Mg Tablet) 650 mg PO Q4HR PRN PRN Reason: Pain 1 to 4, or Fever Last Admin: 09/27/21 06:14 Dose: 650 mg Atorvastatin Calcium (Atorvastatin 40 Mg Tablet) 40 mg PO QPM [facility] Last Admin: 09/26/21 21:51 Dose: 40 mg Baclofen (Baclofen 10 Mg Tablet) 20 mg PO HS [facility] Last Admin: 09/26/21 21:51 Dose: 20 mg Cetirizine HCl (Cetirizine 10 Mg Tablet) 10 mg PO DAILY [facility] Last Admin: 09/27/21 07:58 Dose: 10 mg Cyanocobalamin (Cyanocobalamin 500 Mcg Tablet) 1,000 mcg PO DAILY [facility] Stop: 10/05/21 12:00 Last Admin: 09/27/21 07:58 Dose: 1,000 mcg Enoxaparin Sodium (Enoxaparin 40 Mg/0.4 Ml Syringe) 40 mg SUBQ DAILY [facility] Last Admin: 09/27/21 07:58 Dose: 40 mg Sodium Chloride (Normal Saline 0.9%) 1,000 mls @ 100 mls/hr IV .Q10H [facility] Last Admin: 09/27/21 00:57 Dose: 100 mls/hr Levetiracetam (Levetiracetam 250 Mg Tablet) 500 mg PO BID [facility] Last Admin: 09/27/21 07:57 Dose: 500 mg Levothyroxine Sodium (Levothyroxine 25 Mcg Tablet) 50 mcg PO QDAC [facility] Last Admin: 09/27/21 06:09 Dose: 50 mcg Metoprolol Succinate (Metoprolol Succinate 25 Mg Tablet) 25 mg PO DAILY [facility] Last Admin: 09/27/21 07:57 Dose: 25 mg Multi-Ingredient Ointment (Zinc Oxide 20% Oint 30 Gm Tube) 1 applic TOP PRN PRN PRN Reason: Skin Care Polyethylene Glycol (Polyethylene Glycol 3350 17 Gm Packet) 17 gm PO DAILY [facility] Last Admin: 09/27/21 07:58 Dose: 17 gm Sodium Chloride (Sodium Chloride Flush 0.9% 10 Ml Syringe) 10 ml IVP PRN PRN PRN Reason: NEEDED PER PROVIDER ORDERS Sodium Chloride (Sodium Chloride Flush 0.9% 10 Ml Syringe) 10 ml IVP 0100,0900,1700 [facility] Last Admin: 09/27/21 07:59 Dose: Not Given Temazepam (Temazepam 15 Mg Capsule) 15 mg PO QPM PRN PRN Reason: Insomnia Levothyroxine Sodium 50 mcg PO QDAC 07/18/19 Multivitamin/Iron/Folic Acid [Centrum Women Tablet] 1 ea ORAL DAILY 07/18/19 Calcium Carbonate/Vitamin D3 [Calcium 500Mg-Vit D3 15Mcg Tab] 1 each PO DAILY 0 12/09/20 Furosemide [Lasix] 10 mg PO DAILY 02/12/21 Potassium Chloride [Klor-Con 10] 10 meq PO DAILY 02/12/21 Cholecalciferol [Vitamin D3] 25 mcg PO DAILY 02/13/21 Levetiracetam [Keppra] 500 mg PO BID 04/16/21 Metoprolol Succinate [Toprol Xl] 25 mg PO DAILY 08/31/21 Baclofen [Lioresal] 20 mg PO HS 09/08/21
[2021-09-27] MEDS: ATORVASTATIN 40 MG TABLET PO SCH (20:05)
[2021-09-27] MEDS: BACLOFEN 10 MG TABLET PO SCH (20:05)
[2021-09-28 05:30] LABS: BASOPHILS # (AUTO) 0.1 10^3/uL (0.0-0.1); BASOPHILS % (AUTO) 0.9 %; HCT - HEMATOCRIT 35.4 % (37.0-47.0); HGB - HEMOGLOBIN 11.6 g/dL (12.0-16.0); LYMPHOCYTES # (AUTO) 2.7 10^3/uL (1.5-3.5); LYMPHOCYTES % (AUTO) 28.7 %; MEAN CORPUSCULAR HEMOGLOBIN 30.2 pg (27.0-31.0); MEAN CORPUSCULAR HGB CONC 32.8 g/dL (32.0-36.0); MEAN CORPUSCULAR VOLUME 92.2 fL (81.0-99.0); MEAN PLATELET VOLUME 11.4 fL (7.9-10.8); MONOCYTES # (AUTO) 0.7 10^3/uL (0.0-1.0); MONOCYTES % (AUTO) 7.3 %; NEUTROPHILS # (AUTO) 5.8 10^3/uL (1.5-6.6); NEUTROPHILS % (AUTO) 62.7 %; PLT - PLATELET COUNT 247 10^3/uL (130-450); RED BLOOD COUNT 3.84 10^6/uL (4.20-5.40); RED CELL DISTRIBUTION WIDTH 14.6 % (12.0-15.0); WHITE BLOOD COUNT 9.3 x10^3/uL (4.8-10.8)
[2021-09-28] MEDS: SODIUM CHLORIDE 0.9% 1,000 ML IV SCH (05:35)
[2021-09-28 05:37] LABS: CALCIUM 8.8 mg/dL (8.5-10.3); CREATININE 0.8 mg/dL (0.4-1.0); POTASSIUM 3.8 mmol/L (3.5-5.0)
[2021-09-28] MEDS: LEVOTHYROXINE 25 MCG TABLET PO SCH (06:43)
[2021-09-28] MEDS: SODIUM CHLORIDE FLUSH 0.9% 10 ML SYRINGE IVP SCH ×2 (08:29→17:28)
[2021-09-28] MEDS: METOPROLOL SUCCINATE 25 MG TABLET PO SCH (08:35)
[2021-09-28] MEDS: ENOXAPARIN 40 MG/0.4 ML SYRINGE SUBQ SCH (08:35)
[2021-09-28] MEDS: CETIRIZINE 10 MG TABLET PO SCH (08:35)
[2021-09-28] MEDS: ACETAMINOPHEN 325 MG TABLET PO PRN ×4 (08:35→21:22)
[2021-09-28] MEDS: levETIRAcetam 250 MG TABLET PO SCH ×2 (08:35→21:21)
[2021-09-28] MEDS: CYANOCOBALAMIN 500 MCG TABLET PO SCH (08:36)
[2021-09-28] MEDS: polyethylene glycoL 3350 17 GM PACKET PO SCH (08:48)
--- NOTE | 2021-09-28 10:40 | PROVIDER PROGRESS NOTE ---
Assessment/Plan - Problem List (1) Acute encephalopathy Assessment/Plan: 09/28 pt is returned to her baseline. pt report she did feel better. consult with social services director for disposition planning. pt is ready for d/c to SNF 09/27 pt's mental status is improved. creatinine 0.8 and BUN 26, and CK is 866, are improved. continue IVF and lab monitor 09/26 pt still present some confusion in the morning. CT of head and neck showed no acute intracranial abnormalities. pt had fall in the home, rhabdomyolysis, an d KJ at this admission. Etiology is unclear. we will continue neuro check, IVF, and PT/OT for pt (2) Rhabdomyolysis 09/28 CK is closely to normal, continue keep hydration to pt by oral. 09/27 improved. CK is 866, pt report her pain is better controlled. continue IVF and lab monitor CK is down to 2000 from 2400. elevated CK is likely secondary to her fall and muscle injury in the home, creatinine is improved now. continue IVF, and lab monitor (3) Leukocytosis Conclusion/Plan: 09/27 resolved. WBC is 9.1 improved. WBC is 16 now. Etiology is undetermined. CXR and UA does not support infection. pt has no fever. it is unlikely caused by infection. It is more likely relative to reaction, continue IVF, and lab monitor (4) KJ (acute kidney injury) 09/27 resolved. Creatinine is 0.8 improved. creatinine is 1.1 on today from 1.5 at admission. continue IVF and lab monitor (5) Hypothyroidism TSH is normal arrange. On Synthroid 50 mcg p.o. daily. (6) Seizure disorder Conclusion/Plan: pt has no seizure and stable now. we resume patient's Keppra. (7)fall pt fall from couch at her home. PT/OT had evaluation and treatment for her, and recommended to SNF. social services director was consulted for d/c planning. - Current Meds Current Meds: Current Medications Generic Name Dose Route Start Last Admin Trade Name Freq PRN Reason Stop Dose Admin Acetaminophen 650 mg 09/25/21 21:54 09/28/21 08:35 Acetaminophen 325 Mg Tablet PO 650 mg Q4HR PRN Administration Pain 1 to 4, or Fever Atorvastatin Calcium 40 mg 09/26/21 21:00 09/27/21 20:05 Atorvastatin 40 Mg Tablet PO 40 mg QPM JIN Administration Baclofen 20 mg 09/26/21 21:00 09/27/21 20:05 Baclofen 10 Mg Tablet PO 20 mg HS JIN Administration Cetirizine HCl 10 mg 09/27/21 09:00 09/28/21 08:35 Cetirizine 10 Mg Tablet PO 10 mg DAILY JIN Administration Cyanocobalamin 1,000 mcg 09/26/21 12:00 09/28/21 08:36 Cyanocobalamin 500 Mcg Tablet PO 10/05/21 12:00 1,000 mcg DAILY JIN Administration Enoxaparin Sodium 40 mg 09/26/21 09:00 09/28/21 08:35 Enoxaparin 40 Mg/0.4 Ml Syringe SUBQ 40 mg DAILY JIN Administration Levetiracetam 500 mg 09/26/21 09:00 09/28/21 08:35 Levetiracetam 250 Mg Tablet PO 500 mg BID JIN Administration Levothyroxine Sodium 50 mcg 09/27/21 07:00 09/28/21 06:43 Levothyroxine 25 Mcg Tablet PO 50 mcg QDAC JIN Administration Metoprolol Succinate 25 mg 09/27/21 09:00 09/28/21 08:35 Metoprolol Succinate 25 Mg Tablet PO 25 mg DAILY JIN Administration Polyethylene Glycol 17 gm 09/26/21 16:00 09/28/21 08:48 Polyethylene Glycol 3350 17 Gm Packet PO Not Given DAILY JIN Sodium Chloride 10 ml 09/26/21 01:00 09/28/21 08:29 Sodium Chloride Flush 0.9% 10 Ml Syringe IVP Not Given 0100,0900,1700 JIN - Lab Result Fish Bone Diagrams: 09/28/21 04:25 09/28/21 04:25 Subjective - Subjective Patient Reports: Feeling Better, Resting Comfortably Objective Vital Signs: Vital Signs - 24 hr 09/27/21 09/27/21 09/28/21 16:04 20:03 00:12 Temperature 36.6 C 36.8 C 36.6 C Heart Rate [ 72 75 78 Brachial] Respiratory 19 19 20 Rate Blood Pressure 107/61 106/59 L 130/70 [Left Brachial artery] Blood Pressure [Right Brachial artery] O2 Saturation 95 94 93 09/28/21 09/28/21 04:23 07:55 Temperature 36.5 C 36.4 C L Heart Rate [ 72 73 Brachial] Respiratory 16 20 Rate Blood Pressure 117/58 L [Left Brachial artery] Blood Pressure 124/58 L [Right Brachial artery] O2 Saturation 93 93 Oxygen O2 Source [With Activity] Room air O2 Source [Without Activity] Room air O2 Source Room air I&O (Last 24 Hrs): Intake and Output Totals x24h 09/26/21 09/27/21 09/28/21 23:59 23:59 23:59 Intake Total 3138.417 3340.000 1070 Output Total 125 1250 1900 Balance 3013.417 2090.000 -830 General: Alert, No acute distress HEENT: Atraumatic Neck: Supple Lymphatic: no adenopathy Neuro: Alert, Non Focal, Oriented Times 3 Cardiovascular: Regular rate, Normal S1, Normal S2 Respiratory: Chest non-tender, No respiratory distress Abdomen: Normal bowel sounds, Soft Extremities: Normal pulses - Results Results: Laboratory Results WBC 9.3 x10^3/uL (4.8-10.8) 09/28/21 04:25 RBC 3.84 10^6/uL (4.20-5.40) L 09/28/21 04:25 Hgb 11.6 g/dL (12.0-16.0) L 09/28/21 04:25 Hct 35.4 % (37.0-47.0) L 09/28/21 04:25 MCV 92.2 fL (81.0-99.0) 09/28/21 04:25 MCH 30.2 pg (27.0-31.0) 09/28/21 04:25 MCHC 32.8 g/dL (32.0-36.0) 09/28/21 04:25 RDW 14.6 % (12.0-15.0) 09/28/21 04:25 Plt Count 247 10^3/uL (130-450) 09/28/21 04:25 MPV 11.4 fL (7.9-10.8) H 09/28/21 04:25 Neut # (Auto) 5.8 10^3/uL (1.5-6.6) 09/28/21 04:25 Lymph # (Auto) 2.7 10^3/uL (1.5-3.5) 09/28/21 04:25 [place] # (Auto) 0.7 10^3/uL (0.0-1.0) 09/28/21 04:25 Eos # (Auto) 0.0 10^3/uL (0.0-0.7) 09/28/21 04:25 Baso # (Auto) 0.1 10^3/uL (0.0-0.1) 09/28/21 04:25 Absolute Nucleated RBC 0.00 x10^3/uL 09/28/21 04:25 Total Counted 100 09/26/21 04:44 Band Neuts % (Manual) 0 % (0-10) 09/26/21 04:44 Abnorm Lymph % (Manual) 0 % 09/26/21 04:44 Nucleated RBC % 0.0 /100WBC 09/28/21 04:25 Neutrophils # (Manual) 11.7 10^3/uL (1.5-6.6) H 09/26/21 04:44 Lymphocytes # (Manual) 2.9 10^3/uL (1.5-3.5) 09/26/21 04:44 Monocytes # (Manual) 1.6 10^3/uL (0.0-1.0) H 09/26/21 04:44 Eosinophils # (Manual) 0.0 10^3/uL (0-0.7) 09/26/21 04:44 Basophils # (Manual) 0.0 10^3/uL (0-0.1) 09/26/21 04:44 Differential Comment MANUAL DIFFERENTIAL 09/26/21 04:44 Manual Slide Review Indicated 09/25/21 20:26 WBC Morphology NORMAL APPEARANCE (NORMAL) 09/26/21 04:44 Platelet Estimate NORMAL (130-450,000) (NORMAL) 09/26/21 04:44 Platelet Morphology NORMAL APPEARANCE (NORMAL) 09/26/21 04:44 RBC Morph Micro Appear NORMAL APPEARANCE (NORMAL) 09/26/21 04:44 PT 12.9 secs (9.9-12.6) H 09/25/21 20:26 INR 1.2 (0.8-1.2) 09/25/21 20:26 VBG pH 7.467 (7.31-7.41) H 09/25/21 20:38 VBG pCO2 35.8 mmHg (41-51) L 09/25/21 20:38 VBG pO2 43.3 mmHg (25-47) 09/25/21 20:38 VBG HCO3 25.3 mmol/L (23-28) 09/25/21 20:38 VBG Total CO2 26.4 mmol/L (24-29) 09/25/21 20:38 VBG O2 Saturation 79.3 % (60-80) 09/25/21 20:38 VBG Base Excess 2.0 mmol/L (-2 - +2) 09/25/21 20:38 Sodium 142 mmol/L (135-145) 09/28/21 04:25 Potassium 3.8 mmol/L (3.5-5.0) 09/28/21 04:25 Chloride 113 mmol/L (101-111) H 09/28/21 04:25 Carbon Dioxide 21 mmol/L (21-32) 09/28/21 04:25 Anion Gap 8.0 (6-13) 09/28/21 04:25 BUN 21 mg/dL (6-20) H 09/28/21 04:25 Creatinine 0.8 mg/dL (0.4-1.0) 09/28/21 04:25 Estimated GFR (MDRD) 72 (>89) L 09/28/21 04:25 Glucose 81 mg/dL (70-100) 09/28/21 04:25 Lactic Acid 1.8 mmol/L (0.5-2.2) 09/25/21 23:38 Calcium 8.8 mg/dL (8.5-10.3) 09/28/21 04:25 Phosphorus 4.4 mg/dL (2.5-4.6) 09/25/21 20:26 Magnesium 2.3 mg/dL (1.7-2.8) 09/25/21 20:26 Total Bilirubin 1.1 mg/dL (0.2-1.0) H 09/25/21 20:26 AST 60 IU/L (10-42) H 09/25/21 20:26 ALT 29 IU/L (10-60) 09/25/21 20:26 Alkaline Phosphatase 127 IU/L (42-121) H 09/25/21 20:26 Total Creatine Kinase 487 IU/L (22-269) H 09/28/21 04:25 Total Protein 8.8 g/dL (6.7-8.2) H 09/25/21 20:26 Albumin 4.2 g/dL (3.2-5.5) 09/25/21 20: Globulin 4.6 g/dL (2.1-4.2) H 09/25/21 20:26 Albumin/Globulin Ratio 0.9 (1.0-2.2) L 09/25/21 20: TSH 0.87 uIU/mL (0.34-5.60) 09/26/21 04:44 Urine Color YELLOW 09/25/21 20:48 Urine Clarity CLEAR (CLEAR) 09/25/21 20:48 Urine pH 5.5 PH (5.0-7.5) 09/25/21 20:48 Ur Specific [place] 1.025 (1.002-1.030) 09/25/21 20:48 Urine Protein NEGATIVE mg/dL (NEGATIVE) 09/25/21 20:48 Urine Glucose (UA) NEGATIVE mg/dL (NEGATIVE) 09/25/21 20:48 Urine Ketones NEGATIVE mg/dL (NEGATIVE) 09/25/21 20:48 Urine Occult Blood TRACE-INTA (NEGATIVE) 09/25/21 20:48 Urine Nitrite NEGATIVE (NEGATIVE) 09/25/21 20:48 Urine Bilirubin NEGATIVE (NEGATIVE) 09/25/21 20:48 Urine Urobilinogen 0.2 (NORMAL) E.U./dL (NORMAL) 09/25/21 20:48 Ur Leukocyte Esterase NEGATIVE (NEGATIVE) 09/25/21 20:48 Ur Microscopic Review NOT INDICATED 09/25/21 20:48 Urine Culture Comments NOT INDICATED 09/25/21 20:48 Nasal Adenovirus (PCR) NOT DETECTED 09/25/21 20:30 Nasal B. parapertussis DNA (PCR) NOT DETECTED 09/25/21 20:30 Nasal Coronavir 229E PCR NOT DETECTED 09/25/21 20:30 Nasal Coronavir HKU1 PCR NOT DETECTED 09/25/21 20:30 Nasal Coronavir NL63 PCR NOT DETECTED 09/25/21 20:30 Nasal Coronavir OC43 PCR NOT DETECTED 09/25/21 20:30 Nasal Enterovir/Rhinovir PCR NOT DETECTED 09/25/21 20:30 Nasal Influenza B PCR NOT DETECTED 09/25/21 20:30 Nasal Influenza A PCR NOT DETECTED 09/25/21 20:30 Nasal Parainfluen 1 PCR NOT DETECTED 09/25/21 20:30 Nasal Parainfluen 2 PCR NOT DETECTED 09/25/21 20:30 Nasal Parainfluen 3 PCR NOT DETECTED 09/25/21 20:30 Nasal Parainfluen 4 PCR NOT DETECTED 09/25/21 20:30 Nasal RSV (PCR) NOT DETECTED 09/25/21 20:30 Nasal B.pertussis DNA PCR NOT DETECTED 09/25/21 20:30 Nasal C.pneumoniae (PCR) NOT DETECTED 09/25/21 20:30 Jaya Human Metapneumo PCR NOT DETECTED 09/25/21 20:30 Nasal M.pneumoniae (PCR) NOT DETECTED 09/25/21 20:30 Nasal SARS-CoV-2 (PCR) NOT DETECTED 09/25/21 20:30 Urine Opiates Screen NEGATIVE (NEGATIVE) 09/25/21 20:48 Ur Oxycodone Screen NEGATIVE (NEGATIVE) 09/25/21 20:48 Urine Methadone Screen NEGATIVE (NEGATIVE) 09/25/21 20:48 Ur Propoxyphene Screen NEGATIVE (NEGATIVE) 09/25/21 20:48 Ur Barbiturates Screen NEGATIVE (NEGATIVE) 09/25/21 20:48 Ur Tricyclics Screen NEGATIVE (NEGATIVE) 09/25/21 20:48 Ur Phencyclidine Scrn NEGATIVE (NEGATIVE) 09/25/21 20:48 Ur Amphetamine Screen NEGATIVE (NEGATIVE) 09/25/21 20:48 U Methamphetamines Scrn NEGATIVE (NEGATIVE) 09/25/21 20:48 U Benzodiazepines Scrn NEGATIVE (NEGATIVE) 09/25/21 20:48 Urine Cocaine Screen NEGATIVE (NEGATIVE) 09/25/21 20:48 U Cannabinoids Screen NEGATIVE (NEGATIVE) 09/25/21 20:48 Ethyl Alcohol < 5.0 mg/dL 09/25/21 20:26 ABX Reporting Has patient been on IV antibiotics over the past 48 hours?: No Current Medications - Current Medications Current Medications: Active Medications Acetaminophen (Acetaminophen 325 Mg Tablet) 650 mg PO Q4HR PRN PRN Reason: Pain 1 to 4, or Fever Last Admin: 09/28/21 08:35 Dose: 650 mg Atorvastatin Calcium (Atorvastatin 40 Mg Tablet) 40 mg PO QPM JIN Last Admin: 09/27/21 20:05 Dose: 40 mg Baclofen (Baclofen 10 Mg Tablet) 20 mg PO HS JIN Last Admin: 05/25/22 20:05 Dose: 20 mg Cetirizine HCl (Cetirizine 10 Mg Tablet) 10 mg PO DAILY [facility] Last Admin: 09/28/21 08:35 Dose: 10 mg Cyanocobalamin (Cyanocobalamin 500 Mcg Tablet) 1,000 mcg PO DAILY [facility] Stop: 10/05/21 12:00 Last Admin: 09/28/21 08:36 Dose: 1,000 mcg Enoxaparin Sodium (Enoxaparin 40 Mg/0.4 Ml Syringe) 40 mg SUBQ DAILY [facility] Last Admin: 09/28/21 08:35 Dose: 40 mg Levetiracetam (Levetiracetam 250 Mg Tablet) 500 mg PO BID [facility] Last Admin: 09/28/21 08:35 Dose: 500 mg Levothyroxine Sodium (Levothyroxine 25 Mcg Tablet) 50 mcg PO QDAC [facility] Last Admin: 09/28/21 06:43 Dose: 50 mcg Metoprolol Succinate (Metoprolol Succinate 25 Mg Tablet) 25 mg PO DAILY [facility] Last Admin: 09/28/21 08:35 Dose: 25 mg Multi-Ingredient Ointment (Zinc Oxide 20% Oint 30 Gm Tube) 1 applic TOP PRN PRN PRN Reason: Skin Care Polyethylene Glycol (Polyethylene Glycol 3350 17 Gm Packet) 17 gm PO DAILY [facility] Last Admin: 09/28/21 08:48 Dose: Not Given Sodium Chloride (Sodium Chloride Flush 0.9% 10 Ml Syringe) 10 ml IVP PRN PRN PRN Reason: NEEDED PER PROVIDER ORDERS Sodium Chloride (Sodium Chloride Flush 0.9% 10 Ml Syringe) 10 ml IVP 0100,0900,1700 [facility] Last Admin: 09/28/21 08:29 Dose: Not Given Temazepam (Temazepam 15 Mg Capsule) 15 mg PO QPM PRN PRN Reason: Insomnia Levothyroxine Sodium 50 mcg PO QDAC 07/18/19 Multivitamin/Iron/Folic Acid [Centrum Women Tablet] 1 ea ORAL DAILY 07/18/19 Calcium Carbonate/Vitamin D3 [Calcium 500Mg-Vit D3 15Mcg Tab] 1 each PO DAILY 12/09/20 Furosemide [Lasix] 10 mg PO DAILY 02/12/21 Potassium Chloride [Klor-Con 10] 10 meq PO DAILY 02/12/21 Cholecalciferol [Vitamin D3] 25 mcg PO DAILY 02/13/21 Levetiracetam [Keppra] 500 mg PO BID 04/16/21 Metoprolol Succinate [Toprol Xl] 25 mg PO DAILY 08/31/21 Baclofen [Lioresal] 20 mg PO HS 09/08/21
[2021-09-28] MEDS: SODIUM CHLORIDE 0.65% NASAL SPRAY NAS PRN ×2 (17:27→21:25)
[2021-09-28] MEDS: BACLOFEN 10 MG TABLET PO SCH (21:21)
[2021-09-28] MEDS: ATORVASTATIN 40 MG TABLET PO SCH (21:21)
[2021-09-29] MEDS: ACETAMINOPHEN 325 MG TABLET PO PRN ×3 (04:28→16:01)
[2021-09-29] MEDS: LEVOTHYROXINE 25 MCG TABLET PO SCH (05:13)
[2021-09-29 05:48] LABS: BASOPHILS # (AUTO) 0.1 10^3/uL (0.0-0.1); BASOPHILS % (AUTO) 0.9 %; HCT - HEMATOCRIT 34.4 % (37.0-47.0); HGB - HEMOGLOBIN 11.5 g/dL (12.0-16.0); LYMPHOCYTES % (AUTO) 34.5 %; MEAN CORPUSCULAR HEMOGLOBIN 30.4 pg (27.0-31.0); MEAN CORPUSCULAR HGB CONC 33.4 g/dL (32.0-36.0); MEAN PLATELET VOLUME 11.3 fL (7.9-10.8); MONOCYTES # (AUTO) 0.6 10^3/uL (0.0-1.0); MONOCYTES % (AUTO) 7.5 %; NEUTROPHILS # (AUTO) 4.8 10^3/uL (1.5-6.6); NEUTROPHILS % (AUTO) 56.5 %; PLT - PLATELET COUNT 287 10^3/uL (130-450); RED BLOOD COUNT 3.78 10^6/uL (4.20-5.40); RED CELL DISTRIBUTION WIDTH 14.4 % (12.0-15.0); WHITE BLOOD COUNT 8.6 x10^3/uL (4.8-10.8)
[2021-09-29 05:59] LABS: CALCIUM 8.8 mg/dL (8.5-10.3); CREATININE 0.9 mg/dL (0.4-1.0); POTASSIUM 3.8 mmol/L (3.5-5.0)
[2021-09-29] MEDS: SODIUM CHLORIDE FLUSH 0.9% 10 ML SYRINGE IVP SCH ×3 (09:13→16:02)
[2021-09-29] MEDS: CYANOCOBALAMIN 500 MCG TABLET PO SCH (09:14)
[2021-09-29] MEDS: levETIRAcetam 250 MG TABLET PO SCH ×2 (09:14→21:04)
[2021-09-29] MEDS: ENOXAPARIN 40 MG/0.4 ML SYRINGE SUBQ SCH (09:14)
[2021-09-29] MEDS: CETIRIZINE 10 MG TABLET PO SCH (09:14)
[2021-09-29] MEDS: polyethylene glycoL 3350 17 GM PACKET PO SCH (09:18)
[2021-09-29] MEDS: METOPROLOL SUCCINATE 25 MG TABLET PO SCH (09:19)
--- NOTE | 2021-09-29 11:36 | PROVIDER PROGRESS NOTE ---
Subjective - Prog Note Date Prog Note Date: 09/29/21 Prog Note Time: 11:34 - Subjective Pt reports feeling: Improved Subjective: She has improved and that she is more alert. But she is refusing to work with physical therapy and refused to get out of bed yesterday. This morning she is demanding to go home and stating that "you cannot make me do things that I want to". I completely agree with her and told her that once she was able to get up and walk in the room to go to the bathroom by herself, feed herself, get dressed by herself that she could leave this building. She stated that she is not able to do so. And then I explained then she cannot leave. She asked me to please "get out". She is a quite vocal today, alert, oriented to place and time, but does not appear to have insight to her situation. Current Medications - Current Medications Current Medications: Active Medications Acetaminophen (Acetaminophen 325 Mg Tablet) 650 mg PO Q4HR PRN PRN Reason: Pain 1 to 4, or Fever Last Admin: 09/29/21 09:13 Dose: 650 mg Atorvastatin Calcium (Atorvastatin 40 Mg Tablet) 40 mg PO QPM [facility] Last Admin: 09/28/21 21:21 Dose: 40 mg Baclofen (Baclofen 10 Mg Tablet) 20 mg PO HS [facility] Last Admin: 09/28/21 21:21 Dose: 20 mg Cetirizine HCl (Cetirizine 10 Mg Tablet) 10 mg PO DAILY [facility] Last Admin: 09/29/21 09:14 Dose: 10 mg Cyanocobalamin (Cyanocobalamin 500 Mcg Tablet) 1,000 mcg PO DAILY [facility] Stop: 10/05/21 12:00 Last Admin: 09/29/21 09:14 Dose: 1,000 mcg Enoxaparin Sodium (Enoxaparin 40 Mg/0.4 Ml Syringe) 40 mg SUBQ DAILY [facility] Last Admin: 09/29/21 09:14 Dose: 40 mg Levetiracetam (Levetiracetam 250 Mg Tablet) 500 mg PO BID [facility] Last Admin: 09/29/21 09:14 Dose: 500 mg Levothyroxine Sodium (Levothyroxine 25 Mcg Tablet) 50 mcg PO QDAC [facility] Last Admin: 09/29/21 05:13 Dose: 50 mcg Metoprolol Succinate (Metoprolol Succinate 25 Mg Tablet) 25 mg PO DAILY [facility] Last Admin: 09/29/21 09:19 Dose: 25 mg Multi-Ingredient Ointment (Zinc Oxide 20% Oint 30 Gm Tube) 1 applic TOP PRN PRN PRN Reason: Skin Care Nicotine (Nicotine 7 Mg Patch) 1 patch TOP DAILY [facility] Polyethylene Glycol (Polyethylene Glycol 3350 17 Gm Packet) 17 gm PO DAILY [facility] Last Admin: 09/29/21 09:18 Dose: Not Given Sodium Chloride (Sodium Chloride Flush 0.9% 10 Ml Syringe) 10 ml IVP PRN PRN PRN Reason: NEEDED PER PROVIDER ORDERS Sodium Chloride (Sodium Chloride Flush 0.9% 10 Ml Syringe) 10 ml IVP 0100,0900,1700 [facility] Last Admin: 09/29/21 09:13 Dose: 10 ml Sodium Chloride (Sodium Chloride 0.65% Nasal [place]) 2 sprays WILLIE Q4HR PRN PRN Reason: Nasal Congestion Last Admin: 09/28/21 21:25 Dose: 2 sprays Temazepam (Temazepam 15 Mg Capsule) 15 mg PO QPM PRN PRN Reason: Insomnia Levothyroxine Sodium 50 mcg PO QDAC 07/18/19 Multivitamin/Iron/Folic Acid [Centrum Women Tablet] 1 ea ORAL DAILY 07/18/19 Calcium Carbonate/Vitamin D3 [Calcium 500Mg-Vit D3 15Mcg Tab] 1 each PO DAILY 12/09/20 Furosemide [Lasix] 10 mg PO DAILY 02/12/21 Potassium Chloride [Klor-Con 10] 10 meq PO DAILY 02/12/21 Cholecalciferol [Vitamin D3] 25 mcg PO DAILY 02/13/21 Levetiracetam [Keppra] 500 mg PO BID 04/16/21 Metoprolol Succinate [Toprol Xl] 25 mg PO DAILY 08/31/21 Baclofen [Lioresal] 20 mg PO HS 09/08/21 Objective - Vital Signs/Intake & Output Reviewed Vital Signs: Yes Vital Signs: Vital Signs x48h Temp Pulse Resp BP Pulse Ox 09/29/21 07:45 36.6 C 89 20 118/80 92 09/29/21 05:36 36.6 C 81 16 111/43 L 93 Intake & Output: Intake & Output 09/26/21 09/27/21 09/28/21 09/29/21 23:59 23:59 23:59 23:59 Intake Total 3138.417 3340.000 2340 480 Output Total 125 1250 2000 450 Balance 3013.417 2090.000 340 30 - Objective General Appearance: positive: No acute distress, Alert Eyes Bilateral: positive: PERRL ENT: positive: No signs of dehydration Neck: positive: No JVD. negative: Stiff neck Respiratory: positive: No respiratory distress. negative: Wheezes, Rales, Rhonchi Cardiovascular: positive: Regular rate & rhythm. negative: Gallop/S4, Friction rub Abdomen: positive: Non-tender, No organomegaly, Nml bowel sounds, No distention Skin: positive: Warm, Dry Extremities: positive: Full ROM, No pedal edema Neurologic/Psychiatric: positive: Oriented x3, CN's nml (2-12). negative: Motor nml Comments/Other: OT note: pt. completed bed mobility with SBA. She was able to follow cues to roll and push into sitting, pt utlizing bed rails and elevated HOB to complete. Pt requiring cues for pushing from support surfaces rather than pulling on her walker to stand.Pt able to complete sit to stand to FWW following cues w/ CGA- Laisha. Pt ambulated to bathroom, pt cued to open bathroom door. Pt opened door with force which hit the front wheel of her walker, pt able to continue, no LOB, CGA provided throughout walk to bathroom. Pt performed toilet t/f with CGA and complete toileting including toileting hygiene with CGA. Pt able to raise and lower briefs with CGA. Pt completed hand hygiene standing at sink with support of FA on counter and CGA. Pt ambulated back to room to recliner, pt sitting in recliner, pt became frustrated with bathroom door in the way and tried to forcefully push it closed but her FWW was in the way. Therapist asked pt to not push the door forcefull as this could be dangerous, pt became upset and punded her fists into the recliner and yelled "fine!". Pt became demanding and started yelling about placement of tray table and LE placement with recliner. . PT note: PT attempted to see pt at 12pm; pt was eating lunch and requested PT return later. PT returned at 210pm and pt was resting in bed, stated she did not want to work with PT. PT will return in AM [ End ] - Lab Results Fish Bones: 09/29/21 05:01 09/29/21 05:01 Other Labs: Lab Results x24hrs 09/29/21 09/29/21 09/26/21 Range/Units 05:01 05:01 08:11 WBC 8.6 (4.8-10.8) x10^3/uL RBC 3.78 L (4.20-5.40) 10^6/uL Hgb 11.5 L (12.0-16.0) g/dL Hct 34.4 L (37.0-47.0) % MCV 91.0 (81.0-99.0) fL MCH 30.4 (27.0-31.0) pg MCHC 33.4 (32.0-36.0) g/dL RDW 14.4 (12.0-15.0) % Plt Count 287 (130-450) 10^3/uL MPV 11.3 H (7.9-10.8) fL Neut # (Auto) 4.8 (1.5-6.6) 10^3/uL Lymph # (Auto) 3.0 (1.5-3.5) 10^3/uL [place] # (Auto) 0.6 (0.0-1.0) 10^3/uL Eos # (Auto) 0.0 (0.0-0.7) 10^3/uL Baso # (Auto) 0.1 (0.0-0.1) 10^3/uL Absolute Nucleated RBC 0.00 x10^3/uL Nucleated RBC % 0.0 /100WBC Sodium 141 (135-145) mmol/L Potassium 3.8 (3.5-5.0) mmol/L Chloride 110 (101-111) mmol/L Carbon Dioxide 20 L (21-32) mmol/L Anion Gap 11.0 (6-13) BUN 19 (6-20) mg/dL Creatinine 0.9 (0.4-1.0) mg/dL Estimated GFR (MDRD) 63 L (>89) Glucose 88 (70-100) mg/dL Calcium 8.8 (8.5-10.3) mg/dL Total Creatine Kinase 239 (22-269) IU/L Levetiracetam 6.5 L (10.0-40.0) ug/mL ABX Reporting Has patient been on IV antibiotics over the past 48 hours?: No Assessment/Plan - Problem List (1) Acute encephalopathy Impression: Etiology undetermined. This unfortunate female has multiple visits to our emergency room and hospital for acute encephalopathy. In the past it was usually associated with misuse of Sudafed [id number]. She has multiple sclerosis. Possibly flares. In any case, the encephalopathy would result in inability to eat or drink appropriately and she would have UTIs, dehydration, rhabdomyolysis. CT of head and neck showed no acute intracranial abnormalities. Toxicology was negative. She did not have a urinary tract infection. She did have an elevated white cell count, rhabdo again, dehydration again. Treatment has consisted of hydration, and withholding any sedate of drugs. She is about on course of what she usually does which is she wakes up, becomes baseline, and works with rehab. At this time her acute encephalopathy is resolved and her lab abnormalities have resolved as of 09/27. Overall, I think this patient becomes altered due to what ever she does at home. Usually medical noncompliance with her medications. This lends itself to a downhill slide and repeat admission. 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 It is very difficult taking care of this patient and that she has the legal right to make her own decisions but her decisions have been very poor. Adult Protective Services notified again. And social work working with this patient about where her disposition will be which was most likely be rehab to strengthen her. (2) Rhabdomyolysis resolved Conclusion/Plan: It is attributed to dehydration and fall. CPK on admit was 2406. With hydration she went down to 487 by yesterday. Today she is normal at 239. Qualifiers: Rhabdomyolysis type: non-traumatic Qualified Code(s): M62.82 - Rhabdomyolysis (3) Leukocytosis resolved. Conclusion/Plan: On admission she was 20.1. By September 27 she was 9.1 and has been normal since then. Today she is 8.6. Blood cultures have been negative. Urinalysis was negative. Chest x-ray was negative. We think it is demargination from dehydr ation and not infection. (4) KJ (acute kidney injury) Conclusion/Plan: Baseline creatinine for her appears to be 0.8. On admission she was 1.5. She has been normal with hydration since September 27. (5) Hypothyroidism Conclusion/Plan: On Synthroid 50 mcg p.o. daily. (6) Seizure disorder Conclusion/Plan: She is on her usual Keppra dose.
[2021-09-29] MEDS: SODIUM CHLORIDE 0.65% NASAL SPRAY NAS PRN (12:19)
[2021-09-29] MEDS: NICOTINE 7 MG PATCH TOP SCH (12:24)
[2021-09-29] MEDS: BACLOFEN 10 MG TABLET PO SCH (21:03)
[2021-09-29] MEDS: TEMAZEPAM 15 MG CAPSULE PO PRN (21:04)
[2021-09-29] MEDS: ATORVASTATIN 40 MG TABLET PO SCH (21:04)
[2021-09-30] MEDS: SODIUM CHLORIDE FLUSH 0.9% 10 ML SYRINGE IVP SCH ×3 (00:20→15:50)
[2021-09-30] MEDS: ACETAMINOPHEN 325 MG TABLET PO PRN ×4 (00:22→20:09)
[2021-09-30] MEDS: LEVOTHYROXINE 25 MCG TABLET PO SCH (05:48)
[2021-09-30 06:02] LABS: BASOPHILS # (AUTO) 0.1 10^3/uL (0.0-0.1); BASOPHILS % (AUTO) 1.1 %; HGB - HEMOGLOBIN 12.6 g/dL (12.0-16.0); LYMPHOCYTES # (AUTO) 2.7 10^3/uL (1.5-3.5); LYMPHOCYTES % (AUTO) 28.4 %; MEAN CORPUSCULAR HEMOGLOBIN 30.7 pg (27.0-31.0); MEAN CORPUSCULAR HGB CONC 33.2 g/dL (32.0-36.0); MEAN CORPUSCULAR VOLUME 92.5 fL (81.0-99.0); MEAN PLATELET VOLUME 11.5 fL (7.9-10.8); MONOCYTES # (AUTO) 0.7 10^3/uL (0.0-1.0); MONOCYTES % (AUTO) 7.8 %; NEUTROPHILS # (AUTO) 5.9 10^3/uL (1.5-6.6); NEUTROPHILS % (AUTO) 62.3 %; PLT - PLATELET COUNT 315 10^3/uL (130-450); RED BLOOD COUNT 4.11 10^6/uL (4.20-5.40); RED CELL DISTRIBUTION WIDTH 14.5 % (12.0-15.0); WHITE BLOOD COUNT 9.5 x10^3/uL (4.8-10.8)
[2021-09-30 06:39] LABS: CALCIUM 9.2 mg/dL (8.5-10.3); CREATININE 0.8 mg/dL (0.4-1.0); POTASSIUM 3.9 mmol/L (3.5-5.0)
[2021-09-30] MEDS: levETIRAcetam 250 MG TABLET PO SCH ×2 (09:15→20:09)
[2021-09-30] MEDS: CYANOCOBALAMIN 500 MCG TABLET PO SCH (09:15)
[2021-09-30] MEDS: CETIRIZINE 10 MG TABLET PO SCH (09:15)
[2021-09-30] MEDS: ENOXAPARIN 40 MG/0.4 ML SYRINGE SUBQ SCH (09:16)
[2021-09-30] MEDS: METOPROLOL SUCCINATE 25 MG TABLET PO SCH (09:16)
[2021-09-30] MEDS: NICOTINE 7 MG PATCH TOP SCH (09:17)
[2021-09-30] MEDS: polyethylene glycoL 3350 17 GM PACKET PO SCH (09:17)
--- NOTE | 2021-09-30 10:35 | PROVIDER PROGRESS NOTE ---
Assessment/Plan - Problem List (1) Hypotension Assessment/Plan: Her blood pressure this morning was 96/55 (with heart rate 83) and metoprolol succinate 25 mg scheduled daily was not given (due to hold parameters). I reviewed her home med list and she was on metoprolol and Lasix at home with a Hx of HTN and Hx CAD with old [place]. Her EKG does show inferior Q waves but she has never had an Echo here to confirm any wall motion abnormalities of the LV. Lasix has not been continued here, since she was dehydrated and needed IV fluids for her rhabdo. She is no longer on IV fluids. Her labs show no further pre- renal azotemia. Will decrease the metoprolol succinate dose down to 6.25 mg daily, and hold parameters to be continued. (2) Hypothyroidism Conclusion/Plan: Continue on Synthroid 50 mcg p.o. daily. (3) Seizure disorder Conclusion/Plan: She is on her usual Keppra dose. (4) Hx CAD Conclusion/Plan: Hx CAD with old [place]. Her EKG does show inferior Q waves but she has never had an Echo here to confirm any wall motion abnormalities of the LV. It is not clear why she is not on at least 1 baby aspirin daily, possibly mcihael use of recurrent falls from altered mental status. She continues on her usual dose of Lipitor. Since the plan is to go to long-term care, not at home and live independently, I will start her on 1 baby aspirin daily. (5) Acute encephalopathy Conclusion/Plan: Resolved Etiology undetermined. She has had multiple visits to our emergency [facility] and [facility] for acute encephalopathy. In the past it was usually associated with misuse of Sudafed [id number]. She has multiple sclerosis Hx , so possibly MS flares. The encephalopathy would result in inability to eat or drink appropriately and she would have UTIs, dehydration, rhabdomyolysis. CT of head and neck showed no acute intracranial abnormalities at this admission. Toxicology was negative. She did not have a urinary tract infection. She did have an elevated white cell count, rhabdo again, dehydration again. She has received iv hydration, and holding any sedating drugs. She usually wakes up, becomes baseline, and works with rehab. We think this patient becomes altered due to what ever she does at home, which includes medical noncompliance with her medications. This lends itself to a downhill slide and repeat admission. 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 It is very difficult taking care of this patient and that she has the legal right to make her own decisions but her decisions have been very poor. Adult Protective Services was notified again. Social work working with this patient about where her disposition will be which was most likely be rehab to strengthen her and Cathodic Protection Technician Care after that (if she agrees). (6) Rhabdomyolysis Conclusion/Plan: Resolved It was attributed to dehydration and fall. CPK on admit was 2406. With hydration she went down to 487 then 239 then 145 today. Will stop daily CK labs Qualifiers: Rhabdomyolysis type: non-traumatic Qualified Code(s): M62.82 - Rhabdomyolysis (7) Leukocytosis Conclusion/Plan: Resolved On admission she was 20.1. By September 27 she was 9.1 and has been normal since then. Today she is 8.6. Blood cultures have been negative. Urinalysis was negative. Chest x-ray was negative. We think it was demargination from deh ydration and not infection. (8) KJ (acute kidney injury) Conclusion/Plan: Resolved with iv hydration for several days Baseline creatinine for her appears to be 0.8. On admission she was 1.5. She has been normal with hydration since September 27. (9) Hx HTN Conclusion/Plan: She has not been hypertensive here. The metoprolol dose has needed to be held and will be decreased substantially. - Current Meds Current Meds: Current Medications Generic Name Dose Route Start Last Admin Trade Name Freq PRN Reason Stop Dose Admin Acetaminophen 650 mg 09/25/21 21:54 09/30/21 09:15 Acetaminophen 325 Mg Tablet PO 650 mg Q4HR PRN Administration Pain 1 to 4, or Fever Atorvastatin Calcium 40 mg 09/26/21 21:00 09/29/21 21:04 Atorvastatin 40 Mg Tablet PO 40 mg QPM JIN Administration Baclofen 20 mg 09/26/21 21:09/29/21 21:03 Baclofen 10 Mg Tablet PO 20 mg HS JIN Administration Cetirizine HCl 10 mg 09/27/21 09:00 09/30/21 09:15 Cetirizine 10 Mg Tablet PO 10 mg DAILY JIN Administration Cyanocobalamin 1,000 mcg 09/26/21 12:00 09/30/21 09:15 Cyanocobalamin 500 Mcg Tablet PO 10/05/21 12:00 1,000 mcg DAILY JIN Administration Enoxaparin Sodium 40 mg 09/26/21 09:00 09/30/21 09:16 Enoxaparin 40 Mg/0.4 Ml Syringe SUBQ 40 mg DAILY JIN Administration Levetiracetam 500 mg 09/26/21 09:00 09/30/21 09:15 Levetiracetam 250 Mg Tablet PO 500 mg BID JIN Administration Levothyroxine Sodium 50 mcg 09/27/21 07:00 09/30/21 05:48 Levothyroxine 25 Mcg Tablet PO 50 mcg QDAC JIN Administration Nicotine 1 patch 09/29/21 12:00 09/30/21 09:17 Nicotine 7 Mg Patch TOP 1 patch DAILY JIN Administration Polyethylene Glycol 17 gm 09/26/21 16:00 09/30/21 09:17 Polyethylene Glycol 3350 17 Gm Packet PO 17 gm DAILY JIN Administration Sodium Chloride 10 ml 09/26/21 01:00 09/30/21 09:17 Sodium Chloride Flush 0.9% 10 Ml Syringe IVP 10 ml 0100,0900,1700 JIN Administration Sodium Chloride 2 sprays 09/28/21 17:08 09/29/21 12:19 Sodium Chloride 0.65% Nasal [place] WILLIE 2 sprays Q4HR PRN Administration Nasal Congestion Temazepam 15 mg 09/27/21 08:20 09/29/21 21:04 Temazepam 15 Mg Capsule PO 15 mg QPM PRN Administration Insomnia - Lab Result Fish Bone Diagrams: 09/30/21 04:31 09/30/21 04:31 - Additional Planning My Orders: My Active Orders 10/01/21 09:00 Metoprolol Succinate [Toprol Xl] 6.25 mg PO DAILY Subjective - Subjective Patient Reports: Resting Comfortably Nursing Reports: Other (Refusing certain nursing care and refused to get OOB for PT today) Objective Vital Signs: Vital Signs - 24 hr 09/29/21 09/30/21 09/30/21 15:25 00:19 09:15 Temperature 36.6 C 36.5 C 36.2 C L Heart Rate [ 72 79 82 Brachial] Respiratory 18 18 18 Rate Blood Pressure 120/66 96/55 L [Left Brachial artery] Blood Pressure 131/71 H [Right Brachial artery] O2 Saturation 93 93 92 Oxygen O2 Source [With Activity] Room air O2 Source [Without Activity] Room air O2 Source Room air I&O (Last 24 Hrs): Intake and Output Totals x24h 09/28/21 09/29/21 09/30/21 23:59 23:59 23:59 Intake Total 2340 950 590 Output Total 1999 1125 1300 Balance 340 175 710 General: No acute distress, Other (Asleep) HEENT: Mucous membr. moist/pink Neck: No JVD Neuro: Non Focal Cardiovascular: Regular rate, No murmurs Respiratory: No respiratory distress, Breath sounds nml Abdomen: Normal bowel sounds, Soft Extremities: No edema - Results Results: Laboratory Results WBC 9.5 x10^3/uL (4.8-10.8) 09/30/21 04:31 RBC 4.11 10^6/uL (4.20-5.40) L 09/30/21 04:31 Hgb 12.6 g/dL (12.0-16.0) 09/30/21 04:31 Hct 38.0 % (37.0-47.0) 09/30/21 04:31 MCV 92.5 fL (81.0-99.0) 09/30/21 04:31 MCH 30.7 pg (27.0-31.0) 09/30/21 04:31 MCHC 33.2 g/dL (32.0-36.0) 09/30/21 04:31 RDW 14.5 % (12.0-15.0) 09/30/21 04:31 Plt Count 315 10^3/uL (130-450) 09/30/21 04:31 MPV 11.5 fL (7.9-10.8) H 09/30/21 04:31 Neut # (Auto) 5.9 10^3/uL (1.5-6.6) 09/30/21 04:31 Lymph # (Auto) 2.7 10^3/uL (1.5-3.5) 09/30/21 04:31 [place] # (Auto) 0.7 10^3/uL (0.0-1.0) 09/30/21 04:31 Eos # (Auto) 0.0 10^3/uL (0.0-0.7) 09/30/21 04:31 Baso # (Auto) 0.1 10^3/uL (0.0-0.1) 09/30/21 04:31 Absolute Nucleated RBC 0.00 x10^3/uL 09/30/21 04:31 Total Counted 100 09/26/21 04:44 Band Neuts % (Manual) 0 % (0-10) 09/26/21 04:44 Abnorm Lymph % (Manual) 0 % 09/26/21 04:44 Nucleated RBC % 0.0 /100WBC 09/30/21 04:31 Neutrophils # (Manual) 11.7 10^3/uL (1.5-6.6) H 09/26/21 04:44 Lymphocytes # (Manual) 2.9 10^3/uL (1.5-3.5) 09/26/21 04:44 Monocytes # (Manual) 1.6 10^3/uL (0.0-1.0) H 09/26/21 04:44 Eosinophils # (Manual) 0.0 10^3/uL (0-0.7) 09/26/21 04:44 Basophils # (Manual) 0.0 10^3/uL (0-0.1) 09/26/21 04:44 Differential Comment MANUAL DIFFERENTIAL 09/26/21 04:44 Manual Slide Review Indicated 09/25/21 20:26 WBC Morphology NORMAL APPEARANCE (NORMAL) 09/26/21 04:44 Platelet Estimate NORMAL (130-450,000) (NORMAL) 09/26/21 04:44 Platelet Morphology NORMAL APPEARANCE (NORMAL) 09/26/21 04:44 RBC Morph Micro Appear NORMAL APPEARANCE (NORMAL) 09/26/21 04:44 PT 12.9 secs (9.9-12.6) H 09/25/21 20:26 INR 1.2 (0.8-1.2) 09/25/21 20:26 VBG pH 7.467 (7.31-7.41) H 09/25/21 20:38 VBG pCO2 35.8 mmHg (41-51) L 09/25/21 20:38 VBG pO2 43.3 mmHg (25-47) 09/25/21 20:38 VBG HCO3 25.3 mmol/L (23-28) 09/25/21 20:38 VBG Total CO2 26.4 mmol/L (24-29) 09/25/21 20:38 VBG O2 Saturation 79.3 % (60-80) 09/25/21 20:38 VBG Base Excess 2.0 mmol/L (-2 - +2) 09/25/21 20:38 Sodium 140 mmol/L (135-145) 09/30/21 04:31 Potassium 3.9 mmol/L (3.5-5.0) 09/30/21 04:31 Chloride 107 mmol/L (101-111) 09/30/21 04:31 Carbon Dioxide 24 mmol/L (21-32) 09/30/21 04:31 Anion Gap 9.0 (6-13) 09/30/21 04:31 BUN 17 mg/dL (6-20) 09/30/21 04:31 Creatinine 0.8 mg/dL (0.4-1.0) 09/30/21 04:31 Estimated GFR (MDRD) 72 (>89) L 09/30/21 04:31 Glucose 89 mg/dL (70-100) 09/30/21 04:31 Lactic Acid 1.8 mmol/L (0.5-2.2) 09/25/21 23:38 Calcium 9.2 mg/dL (8.5-10.3) 09/30/21 04:31 Phosphorus 4.4 mg/dL (2.5-4.6) 09/25/21 20:26 Magnesium 2.3 mg/dL (1.7-2.8) 09/25/21 20:26 Total Bilirubin 1.1 mg/dL (0.2-1.0) H 09/25/21 20:26 AST 60 IU/L (10-42) H 09/25/21 20:26 ALT 29 IU/L (10-60) 09/25/21 20:26 Alkaline Phosphatase 127 IU/L (42-121) H 09/25/21 20:26 Total Creatine Kinase 145 IU/L (22-269) 09/30/21 04:31 Total Protein 8.8 g/dL (6.7-8.2) H 09/25/21 20:26 Albumin 4.2 g/dL (3.2-5.5) 09/25/21 20:26 Globulin 4.6 g/dL (2.1-4.2) H 09/25/21 20:26 Albumin/Globulin Ratio 0.9 (1.0-2.2) L 09/25/21 20:26 TSH 0.87 uIU/mL (0.34-5.60) 09/26/21 04:44 Urine Color YELLOW 09/25/21 20:48 Urine Clarity CLEAR (CLEAR) 09/25/21 20:48 Urine pH 5.5 PH (5.0-7.5) 09/25/21 20:48 Ur Specific [place] 1.025 (1.002-1.030) 09/25/21 20:48 Urine Protein NEGATIVE mg/dL (NEGATIVE) 09/25/21 20:48 Urine Glucose (UA) NEGATIVE mg/dL (NEGATIVE) 09/25/21 20:48 Urine Ketones NEGATIVE mg/dL (NEGATIVE) 09/25/21 20:48 Urine Occult Blood TRACE-INTA (NEGATIVE) 09/25/21 20:48 Urine Nitrite NEGATIVE (NEGATIVE) 09/25/21 20:48 Urine Bilirubin NEGATIVE (NEGATIVE) 09/25/21 20:48 Urine Urobilinogen 0.2 (NORMAL) E.U./dL (NORMAL) 09/25/21 20:48 Ur Leukocyte Esterase NEGATIVE (NEGATIVE) 09/25/21 20:48 Ur Microscopic Review NOT INDICATED 09/25/21 20:48 Urine Culture Comments NOT INDICATED 09/25/21 20:48 Nasal Adenovirus (PCR) NOT DETECTED 09/25/21 20:30 Nasal B. parapertussis DNA (PCR) NOT DETECTED 09/25/21 20:30 Nasal Coronavir 229E PCR NOT DETECTED 09/25/21 20:30 Nasal Coronavir HKU1 PCR NOT DETECTED 09/25/21 20:30 Nasal Coronavir NL63 PCR NOT DETECTED 09/25/21 20:30 Nasal Coronavir OC43 PCR NOT DETECTED 09/25/21 20:30 Nasal Enterovir/Rhinovir PCR NOT DETECTED 09/25/21 20:30 Nasal Influenza B PCR NOT DETECTED 09/25/21 20:30 Nasal Influenza A PCR NOT DETECTED 09/25/21 20:30 Nasal Parainfluen 1 PCR NOT DETECTED 09/25/21 20:30 Nasal Parainfluen 2 PCR NOT DETECTED 09/25/21 20:30 Nasal Parainfluen 3 PCR NOT DETECTED 09/25/21 20:30 Nasal Parainfluen 4 PCR NOT DETECTED 09/25/21 20:30 Nasal RSV (PCR) NOT DETECTED 09/25/21 20:30 Nasal B.pertussis DNA PCR NOT DETECTED 09/25/21 20:30 Nasal C.pneumoniae (PCR) NOT DETECTED 09/25/21 20:30 Willie Human Metapneumo PCR NOT DETECTED 09/25/21 20:30 Nasal M.pneumoniae (PCR) NOT DETECTED 09/25/21 20:30 Nasal SARS-CoV-2 (PCR) NOT DETECTED 09/25/21 20:30 Urine Opiates Screen NEGATIVE (NEGATIVE) 09/25/21 20:48 Ur Oxycodone Screen NEGATIVE (NEGATIVE) 09/25/21 20:48 Urine Methadone Screen NEGATIVE (NEGATIVE) 09/25/21 20:48 Ur Propoxyphene Screen NEGATIVE (NEGATIVE) 09/25/21 20:48 Ur Barbiturates Screen NEGATIVE (NEGATIVE) 09/25/21 20:48 Ur Tricyclics Screen NEGATIVE (NEGATIVE) 09/25/21 20:48 Levetiracetam 6.5 ug/mL (10.0-40.0) L 09/26/21 08:11 Ur Phencyclidine Scrn NEGATIVE (NEGATIVE) 09/25/21 20:48 Ur Amphetamine Screen NEGATIVE (NEGATIVE) 09/25/21 20:48 U Methamphetamines Scrn NEGATIVE (NEGATIVE) 09/25/21 20:48 U Benzodiazepines Scrn NEGATIVE (NEGATIVE) 09/25/21 20:48 Urine Cocaine Screen NEGATIVE (NEGATIVE) 09/25/21 20:48 U Cannabinoids Screen NEGATIVE (NEGATIVE) 09/25/21 20:48 Ethyl Alcohol < 5.0 mg/dL 09/25/21 20:26
[2021-09-30] MEDS: SODIUM CHLORIDE 0.65% NASAL SPRAY NAS PRN (15:53)
[2021-09-30] MEDS: BACLOFEN 10 MG TABLET PO SCH (20:09)
[2021-09-30] MEDS: ATORVASTATIN 40 MG TABLET PO SCH (20:09)
[2021-09-30] MEDS: TEMAZEPAM 15 MG CAPSULE PO PRN (20:09)
[2021-10-01] MEDS: ACETAMINOPHEN 325 MG TABLET PO PRN ×3 (00:48→14:30)
[2021-10-01] MEDS: SODIUM CHLORIDE FLUSH 0.9% 10 ML SYRINGE IVP SCH ×3 (00:48→16:33)
[2021-10-01] MEDS: LEVOTHYROXINE 25 MCG TABLET PO SCH (05:29)
[2021-10-01] MEDS: CETIRIZINE 10 MG TABLET PO SCH (08:02)
[2021-10-01] MEDS: DOCUSATE SODIUM 250 MG CAPSULE PO SCH (08:02)
[2021-10-01] MEDS: ENOXAPARIN 40 MG/0.4 ML SYRINGE SUBQ SCH (08:02)
[2021-10-01] MEDS: CYANOCOBALAMIN 500 MCG TABLET PO SCH (08:02)
[2021-10-01] MEDS: SENNA 8.6 MG TABLET PO SCH (08:02)
[2021-10-01] MEDS: NICOTINE 7 MG PATCH TOP SCH (08:02)
[2021-10-01] MEDS: levETIRAcetam 250 MG TABLET PO SCH ×2 (08:02→21:05)
[2021-10-01] MEDS: polyethylene glycoL 3350 17 GM PACKET PO SCH (08:03)
[2021-10-01] MEDS: METOPROLOL SUCCINATE 25 MG TABLET PO SCH (08:03)
[2021-10-01] MEDS: NYSTATIN POWDER 15 GM TOP SCH ×2 (13:06→21:05)
--- NOTE | 2021-10-01 14:07 | PROVIDER PROGRESS NOTE ---
Subjective - Prog Note Date Prog Note Date: 10/01/21 Prog Note Time: 13:48 Current Medications - Current Medications Current Medications: Active Medications Acetaminophen (Acetaminophen 325 Mg Tablet) 650 mg PO Q4HR PRN PRN Reason: Pain 1 to 4, or Fever Last Admin: 10/01/21 08:14 Dose: 650 mg Atorvastatin Calcium (Atorvastatin 40 Mg Tablet) 40 mg PO QPM [facility] Last Admin: 09/30/21 20:09 Dose: 40 mg Baclofen (Baclofen 10 Mg Tablet) 20 mg PO HS [facility] Last Admin: 09/30/21 20:09 Dose: 20 mg Cetirizine HCl (Cetirizine 10 Mg Tablet) 10 mg PO DAILY [facility] Last Admin: 10/01/21 08:02 Dose: 10 mg Cyanocobalamin (Cyanocobalamin 500 Mcg Tablet) 1,000 mcg PO DAILY [facility] Stop: 10/05/21 12:00 Last Admin: 10/01/21 08:02 Dose: 1,000 mcg Docusate Sodium (Docusate Sodium 250 Mg Capsule) 250 - 500 mg PO DAILY [facility] Last Admin: 10/01/21 08:02 Dose: 250 mg Enoxaparin Sodium (Enoxaparin 40 Mg/0.4 Ml Syringe) 40 mg SUBQ DAILY [facility] Last Admin: 10/01/21 08:02 Dose: 40 mg Levetiracetam (Levetiracetam 250 Mg Tablet) 500 mg PO BID [facility] Last Admin: 10/01/21 08:02 Dose: 500 mg Levothyroxine Sodium (Levothyroxine 25 Mcg Tablet) 50 mcg PO QDAC [facility] Last Admin: 10/01/21 05:29 Dose: 50 mcg Metoprolol Succinate (Metoprolol Succinate 25 Mg Tablet) 6.25 mg PO DAILY [facility] Last Admin: 10/01/21 08:03 Dose: 6.25 mg Multi-Ingredient Ointment (Zinc Oxide 20% Oint 30 Gm Tube) 1 applic TOP PRN PRN PRN Reason: Skin Care Nicotine (Nicotine 7 Mg Patch) 1 patch TOP DAILY [facility] Last Admin: 10/01/21 08:02 Dose: 1 patch Nystatin (Nystatin Powder 15 Gm) 1 applic TOP BID [facility] Last Admin: 10/01/21 13:06 Dose: 1 applic Polyethylene Glycol (Polyethylene Glycol 3350 17 Gm Packet) 17 gm PO DAILY [facility] Last Admin: 10/01/21 08:03 Dose: 17 gm Senna (Senna 8.6 Mg Tablet) 8.6 - 17.2 mg PO DAILY [facility] Last Admin: 10/01/21 08:02 Dose: 8.6 mg Sodium Chloride (Sodium Chloride Flush 0.9% 10 Ml Syringe) 10 ml IVP PRN PRN PRN Reason: NEEDED PER PROVIDER ORDERS Sodium Chloride (Sodium Chloride Flush 0.9% 10 Ml Syringe) 10 ml IVP 0100,0900,1700 [facility] Last Admin: 10/01/21 08:03 Dose: 10 ml Sodium Chloride (Sodium Chloride 0.65% Nasal [place]) 2 sprays WILLIE Q4HR PRN PRN Reason: Nasal Congestion Last Admin: 09/30/21 15:53 Dose: 2 sprays Temazepam (Temazepam 15 Mg Capsule) 15 mg PO QPM PRN PRN Reason: Insomnia Last Admin: 09/30/21 20:09 Dose: 15 mg Levothyroxine Sodium 50 mcg PO QDAC 07/18/19 Multivitamin/Iron/Folic Acid [Centrum Women Tablet] 1 ea ORAL DAILY 07/18/19 Calcium Carbonate/Vitamin D3 [Calcium 500Mg-Vit D3 15Mcg Tab] 1 each PO DAILY 12/09/20 Furosemide [Lasix] 10 mg PO DAILY 02/12/21 Potassium Chloride [Klor-Con 10] 10 meq PO DAILY 02/12/21 Cholecalciferol [Vitamin D3] 25 mcg PO DAILY 02/13/21 Levetiracetam [Keppra] 500 mg PO BID 04/16/21 Metoprolol Succinate [Toprol Xl] 25 mg PO DAILY 08/31/21 Baclofen [Lioresal] 20 mg PO HS 09/08/21 Objective - Vital Signs/Intake & Output Reviewed Vital Signs: Yes Vital Signs: Vital Signs x48h Temp Pulse Resp BP Pulse Ox 10/01/21 07:55 36.6 C 90 20 109/69 91 L Intake & Output: Intake & Output 09/28/21 09/29/21 09/30/21 10/01/21 23:59 23:59 23:59 23:59 Intake Total 2340 950 1190 920 Output Total 1999 1124 1999 400 Balance 340 -438 -985 520 - Objective General Appearance: positive: Alert Eyes Bilateral: positive: PERRL, EOMI ENT: positive: Pharynx nml Neck: positive: No JVD. negative: Stiff neck Respiratory: positive: No respiratory distress. negative: Wheezes, Rales, Rhonchi Cardiovascular: positive: Regular rate & rhythm. negative: Gallop/S4, Friction rub Abdomen: positive: Non-tender, No organomegaly, Nml bowel sounds, No distention Skin: positive: Warm, Dry Extremities: positive: Full ROM, No pedal edema Neurologic/Psychiatric: positive: Oriented x3, CN's nml (2-12), Motor nml - Lab Results Fish Bones: 09/30/21 04:31 09/30/21 04:31 Assessment/Plan - Problem List (1) Hypotension Impression: Her blood pressure was 96/55 (with heart rate 83) on 09/30 am and metoprolol succinate 25 mg scheduled daily was not given (due to hold parameters). Home med list reviewed and she was on metoprolol and Lasix at home with a Hx of HTN and Hx CAD with old [place]. Her EKG does show inferior Q waves but she has never had an Echo here to confirm any wall motion abnormalities of the LV. Lasix has not been continued here, since she was dehydrated and needed IV fluids for her rhabdo. She is no longer on IV fluids. Her labs show no further pre-renal azo temia. Metoprolol succinate dose was decreased down to 6.25 mg daily, and hold parameters to be continued. Blood pressures been 103 and 109 systolic. No symptoms with this. Plan: no change for now and she is still boderline hypotensive that I will monitor. (2) Hypothyroidism Conclusion/Plan: Continue on Synthroid 50 mcg p.o. daily. (3) Seizure disorder Conclusion/Plan: She is on her usual Keppra dose. (4) Hx CAD Conclusion/Plan: Hx CAD with old [place]. Her EKG does show inferior Q waves but she has never had an Echo here to confirm any wall motion abnormalities of the LV. It is not clear why she is not on at least 1 baby aspirin daily, possibly because of recurrent falls from altered mental status. She continues on her usual dose of Lipitor. Since the plan is to go to long-term care, not at home and live independently, She was started her on 1 baby aspirin daily 09/30 (5) Acute encephalopathy Conclusion/Plan: Resolved Etiology undetermined. She has had multiple visits to our emergency room and [facility] for acute encephalopathy. In the past it was usually associated with misuse of Sudafed [id number]. She has multiple sclerosis Hx , so possibly MS flares. The encephalopathy would result in inability to eat or drink appropriately and she would have UTIs, dehydration, rhabdomyolysis. CT of head and neck showed no acute intracranial abnormalities at this admis adriana. Toxicology was negative. She did not have a urinary tract infection. She did have an elevated white cell count, rhabdo again, dehydration again. She has received iv hydration, and holding any sedating drugs. She usually wakes up, becomes baseline, and works with rehab. We think this patient becomes altered due to what ever she does at home, which includes medical noncompliance with her medications. This lends itself to a downhill slide and repeat admission. 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 It is very difficult taking care of this patient and that she has the legal right to make her own decisions but her decisions have been very poor. Adult Protective Services was notified again. Social work working with this patient about where her disposition will be which was most likely be rehab to strengthen her and Employment Law Attorney Care after that (if she agrees). (6) Rhabdomyolysis Conclusion/Plan: Resolved It was attributed to dehydration and fall. CPK on admit was 2406. With hydration she went down to 487 then 239 then 145 today. Will stop daily CK labs Qualifiers: Rhabdomyolysis type: non-traumatic Qualified Code(s): M62.82 - Rhabdomyolysis (7) Leukocytosis Conclusion/Plan: Resolved On admission she was 20.1. By September 27 she was 9.1 and has been normal since then. Today she is 8.6. Blood cultures have been negative. Urinalysis was negative. Chest x-ray was negative. We think it was demargination from dehydration and not infection. (8) KJ (acute kidney injury) Conclusion/Plan: Resolved with iv hydration for several days Baseline creatinine for her appears to be 0.8. On admission she was 1.5. She has been normal with hydration since September 27. (9) Hx HTN Conclusion/Plan: She has not been hypertensive here. The metoprolol dose has needed to be held and will be decreased substantially.
--- NOTE | 2021-10-01 14:13 | XRAY Report ---
PROCEDURE: Chest 1 View X-Ray INDICATIONS: hypoxia and crackles on exam TECHNIQUE: One view of the chest was acquired. COMPARISON: 09/25/2021 FINDINGS: Surgical changes and devices: None. Lungs and pleura: No pleural effusions or pneumothorax. Lungs are clear. Mediastinum: Mediastinal contours appear normal. Heart size is normal. Bones and chest wall: No suspicious bony lesions. Overlying soft tissues appear unremarkable. IMPRESSION: No acute process. Reviewed by: Rosa Greer MD on 10/01/2021 2:12 PM PDT Approved by: Rosa Greer MD on 10/01/2021 2:12 PM PDT Station ID: [id number]
[2021-10-01] MEDS: SODIUM CHLORIDE 0.65% NASAL SPRAY NAS PRN (16:33)
[2021-10-01] MEDS ORDERED: methocarbamoL 500 MG TABLET PO PRN (16:47)
[2021-10-01] MEDS: ATORVASTATIN 40 MG TABLET PO SCH (21:05)
[2021-10-01] MEDS: BACLOFEN 10 MG TABLET PO SCH (21:05)
[2021-10-02] MEDS: ACETAMINOPHEN 325 MG TABLET PO PRN ×3 (01:18→21:00)
[2021-10-02] MEDS: SODIUM CHLORIDE 0.65% NASAL SPRAY NAS PRN ×2 (01:19→21:01)
[2021-10-02] MEDS: TEMAZEPAM 15 MG CAPSULE PO PRN ×2 (01:22→21:00)
[2021-10-02] MEDS: SODIUM CHLORIDE FLUSH 0.9% 10 ML SYRINGE IVP SCH ×3 (03:34→16:48)
[2021-10-02] MEDS: LEVOTHYROXINE 25 MCG TABLET PO SCH (05:59)
[2021-10-02] MEDS: METOPROLOL SUCCINATE 25 MG TABLET PO SCH (09:58)
[2021-10-02] MEDS: levETIRAcetam 250 MG TABLET PO SCH ×2 (09:58→21:00)
[2021-10-02] MEDS: NICOTINE 7 MG PATCH TOP SCH (09:58)
[2021-10-02] MEDS: CETIRIZINE 10 MG TABLET PO SCH (09:58)
[2021-10-02] MEDS: ENOXAPARIN 40 MG/0.4 ML SYRINGE SUBQ SCH (09:58)
[2021-10-02] MEDS: CYANOCOBALAMIN 500 MCG TABLET PO SCH (09:58)
[2021-10-02] MEDS: NYSTATIN POWDER 15 GM TOP SCH ×2 (09:59→21:01)
[2021-10-02] MEDS: SENNA 8.6 MG TABLET PO SCH (10:00)
[2021-10-02] MEDS: polyethylene glycoL 3350 17 GM PACKET PO SCH (10:00)
[2021-10-02] MEDS: DOCUSATE SODIUM 250 MG CAPSULE PO SCH (10:00)
--- NOTE | 2021-10-02 12:51 | PROVIDER PROGRESS NOTE ---
Progress Note October 02, 2021 12:44 PM No new events. Ms. Lizarraga is awaiting placement. Still insist that she would like to go "home" but she is unable to get up, needs help with toileting, dressing, bathing. Continues to eat anywhere between 50% to 100% of her food. She asked for muscle relaxants yesterday and we gave her Robaxin. That seems to work well for her. Active Medications Acetaminophen (Acetaminophen 325 Mg Tablet) 650 mg PO Q4HR PRN PRN Reason: Pain 1 to 4, or Fever Last Admin: 10/02/21 01:18 Dose: 650 mg Atorvastatin Calcium (Atorvastatin 40 Mg Tablet) 40 mg PO QPM [facility] Last Admin: 10/01/21 21:05 Dose: 40 mg Baclofen (Baclofen 10 Mg Tablet) 20 mg PO HS [facility] Last Admin: 10/01/21 21:05 Dose: 20 mg Cetirizine HCl (Cetirizine 10 Mg Tablet) 10 mg PO DAILY [facility] Last Admin: 10/02/21 09:58 Dose: 10 mg Cyanocobalamin (Cyanocobalamin 500 Mcg Tablet) 1,000 mcg PO DAILY [facility] Stop: 10/05/21 12:00 Last Admin: 10/02/21 09:58 Dose: 1,000 mcg Docusate Sodium (Docusate Sodium 250 Mg Capsule) 250 - 500 mg PO DAILY [facility] Last Admin: 10/02/21 10:00 Dose: Not Given Enoxaparin Sodium (Enoxaparin 40 Mg/0.4 Ml Syringe) 40 mg SUBQ DAILY [facility] Last Admin: 10/02/21 09:58 Dose: 40 mg Levetiracetam (Levetiracetam 250 Mg Tablet) 500 mg PO BID [facility] Last Admin: 10/02/21 09:58 Dose: 500 mg Levothyroxine Sodium (Levothyroxine 25 Mcg Tablet) 50 mcg PO QDAC [facility] Last Admin: 10/02/21 05:59 Dose: 50 mcg Methocarbamol (Methocarbamol 500 Mg Tablet) 500 mg PO Q6HR PRN PRN Reason: Spasms Last Admin: 10/01/21 18:24 Dose: 500 mg Metoprolol Succinate (Metoprolol Succinate 25 Mg Tablet) 6.25 mg PO DAILY [facility] Last Admin: 10/02/21 09:58 Dose: 6.25 mg Multi-Ingredient Ointment (Zinc Oxide 20% Oint 30 Gm Tube) 1 applic TOP PRN PRN PRN Reason: Skin Care Nicotine (Nicotine 7 Mg Patch) 1 patch TOP DAILY [facility] Last Admin: 10/02/21 09:58 Dose: 1 patch Nystatin (Nystatin Powder 15 Gm) 1 applic TOP BID [facility] Last Admin: 10/02/21 09:59 Dose: 1 applic Polyethylene Glycol (Polyethylene Glycol 3350 17 Gm Packet) 17 gm PO DAILY [facility] Last Admin: 10/02/21 10:00 Dose: Not Given Senna (Senna 8.6 Mg Tablet) 8.6 - 17.2 mg PO DAILY [facility] Last Admin: 10/02/21 10:00 Dose: Not Given Sodium Chloride (Sodium Chloride Flush 0.9% 10 Ml Syringe) 10 ml IVP PRN PRN PRN Reason: NEEDED PER PROVIDER ORDERS Sodium Chloride (Sodium Chloride Flush 0.9% 10 Ml Syringe) 10 ml IVP 0100,0900,1700 [facility] Last Admin: 10/02/21 10:00 Dose: 10 ml Sodium Chloride (Sodium Chloride 0.65% Nasal [place]) 2 sprays WILLIE Q4HR PRN PRN Reason: Nasal Congestion Last Admin: 10/02/21 01:19 Dose: 2 sprays Temazepam (Temazepam 15 Mg Capsule) 15 mg PO QPM PRN PRN Reason: Insomnia Last Admin: 10/02/21 01:22 Dose: 15 mg Levothyroxine Sodium 50 mcg PO QDAC 07/18/19 Multivitamin/Iron/Folic Acid [Centrum Women Tablet] 1 ea ORAL DAILY 07/18/19 Calcium Carbonate/Vitamin D3 [Calcium 500Mg-Vit D3 15Mcg Tab] 1 each PO DAILY 12/09/20 Furosemide [Lasix] 10 mg PO DAILY 02/12/21 Potassium Chloride [Klor-Con 10] 10 meq PO DAILY 02/12/21 Cholecalciferol [Vitamin D3] 25 mcg PO DAILY 02/13/21 Levetiracetam [Keppra] 500 mg PO BID 04/16/21 Metoprolol Succinate [Toprol Xl] 25 mg PO DAILY 08/31/21 Baclofen [Lioresal] 20 mg PO HS 09/08/21 Temperature 36.5. Pulse 77. Blood pressure 119/75. 91 to 92% on room air. I did a chest x-ray yesterday because of hypoxia and diminished breath sounds. Chest x-ray has no acute process. I also looked at her intake and output to make sure she was not fluid overloaded and her balance has been negative on September 29, - September 30, and negative today so far. Her balance was +260 cc on October 01. Neck is supple Lungs are clear with diminished breath sounds at the bases Regular rate and rhythm Abdomen soft, obese, nontender. Nystop ordered for intertriginous esme. Extremities with trace edema Neurologically she is alert and oriented to person, place, not necessarily time. Labile affect. She can go from being pleasant and cooperative to yelling and screaming at the drop of a hat. Generalized weakness is present. Nonfocal. she is refusing to work with physical therapy. Assessment/plan 1. Hypotension on September 30 that appears to have resolved with just holding her metoprolol. 2. Hypothyroidism is stable on her Synthroid 3. Seizure disorder is stable on her Keppra 4. History of coronary artery disease. No chest pain. Started on baby aspirin September 30. On Lipitor. 5. Acute encephalopathy on admission. This was the main reason she was admitted.Etiology undetermined. She has had multiple visits to [facility] emergency [facility] and [facility] for acute [facility]opathy. In the past it was usually associated with misuse of Sudafed [id number]. She has multiple sclerosis Hx , so possibly MS flares. The encephalopathy would result in inability to eat or drink appropriately and she would have UTIs, dehydration, rhabdomyolysis. CT of head and neck showed no acute intracranial abnormalities at this admission. Toxicology was negative. She did not have a urinary tract infection. She did have an elevated white cell count, rhabdo again, dehydration again. She has received iv hydration, and holding any sedating drugs. She usually wakes up, becomes baseline, and works with rehab. We think this patient becomes altered due to what ever she does at home, which includes medical noncompliance with her medications. This lends itself to a downhill slide and repeat admission. 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 It is very difficult taking care of this patient and that she has the legal right to make her own decisions but her decisions have been very poor. Adult Protective Services was notified again. Social work working with this patient about where her disposition will be which was most likely be rehab to strengthen her and [facility] after that (if she agrees). 6. Rhabdomyolysis resolved 7. Leukocytosis has resolved with no evidence of infection. Due to demargination 8. Acute kidney injury due to dehydration resolved. 9. Generalized weakness. Her current reason for staying in the hospital. She is unable to get out of bed, unable to take care of her self. She is refusing to work with physical therapy and is now going to need long-term placement.
[2021-10-02] MEDS: BACLOFEN 10 MG TABLET PO SCH (21:00)
[2021-10-02] MEDS: ATORVASTATIN 40 MG TABLET PO SCH (21:00)
[2021-10-03] MEDS: SODIUM CHLORIDE FLUSH 0.9% 10 ML SYRINGE IVP SCH ×3 (00:25→17:13)
[2021-10-03] MEDS: LEVOTHYROXINE 25 MCG TABLET PO SCH (06:39)
[2021-10-03] MEDS: ACETAMINOPHEN 325 MG TABLET PO PRN ×2 (06:42→11:21)
[2021-10-03] MEDS: SODIUM CHLORIDE 0.65% NASAL SPRAY NAS PRN ×2 (06:43→11:21)
--- NOTE | 2021-10-03 07:31 | PROVIDER PROGRESS NOTE ---
Assessment/Plan - Problem List (1) Acute encephalopathy Assessment/Plan: This was the main reason she was admitted.Etiology undetermined. She has had multiple visits to our emergency room and [facility] for acute encephalopathy. In the past it was usually associated with misuse of Sudafed [id number]. She has multiple sclerosis Hx , so possibly MS flares. The encephalopathy would result in inability to eat or drink appropriately and she would have UTIs, dehydration, rhabdomyolysis. CT of head and neck showed no acute intracranial abnormalities at this admission. Toxicology was negative. She did not have a urinary tract infection. She did have an elevated white cell count, rhabdo again, dehydration again. She has received iv hydration, and holding any sedating drugs. She usually wakes up, becomes baseline, and works with rehab. We think this patient becomes altered due to what ever she does at home, which includes medical noncompliance with her medications. This lends itself to a downhill slide and repeat admission. 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 It is very difficult taking care of this patient and that she has the legal right to make her own decisions but her decisions have been very poor. Adult Protective Services was notified again. Social work working with this patient about where her disposition will be which was most likely be rehab to strengthen her and [facility] after that (if she agrees). (2) Rhabdomyolysis Qualifiers: Rhabdomyolysis type: non-traumatic Qualified Code(s): M62.82 - Rhabdomyolysis Assessment/Plan: Resolved (3) Leukocytosis Assessment/Plan: Resolved. Likely reactive (4) KJ (acute kidney injury) Assessment/Plan: 2/2 Dehydration. Resolved (5) Hypothyroidism Assessment/Plan: Stable on Synthroid (6) Seizure disorder Assessment/Plan: Stable on Keppra. - Current Meds Current Meds: Current Medications Generic Name Dose Route Start Last Admin Trade Name Freq PRN Reason Stop Dose Admin Acetaminophen 650 mg 09/25/21 21:54 10/03/21 06:42 Acetaminophen 325 Mg Tablet PO 650 mg Q4HR PRN Administration Pain 1 to 4, or Fever Atorvastatin Calcium 40 mg 09/26/21 21:00 10/02/21 21:00 Atorvastatin 40 Mg Tablet PO 40 mg QPM JIN Administration Baclofen 20 mg 09/26/21 21:00 10/02/21 21:00 Baclofen 10 Mg Tablet PO 20 mg HS JIN Administration Cetirizine HCl 10 mg 09/27/21 09:00 10/02/21 09:58 Cetirizine 10 Mg Tablet PO 10 mg DAILY JIN Administration Cyanocobalamin 1,000 mcg 09/26/21 12:00 10/02/21 09:58 Cyanocobalamin 500 Mcg Tablet PO 10/05/21 12:00 1,000 mcg DAILY JIN Administration Docusate Sodium 250 - 500 mg 10/01/21 09:00 10/02/21 10:00 Docusate Sodium 250 Mg Capsule PO Not Given DAILY JIN Enoxaparin Sodium 40 mg 09/26/21 09:00 10/02/21 09:58 Enoxaparin 40 Mg/0.4 Ml Syringe SUBQ 40 mg DAILY JIN Administration Levetiracetam 500 mg 09/26/21 09:00 10/02/21 21:00 Levetiracetam 250 Mg Tablet PO 500 mg BID JIN Administration Levothyroxine Sodium 50 mcg 09/27/21 07:00 10/03/21 06:39 Levothyroxine 25 Mcg Tablet PO 50 mcg QDAC JIN Administration Methocarbamol 500 mg 10/01/21 16:47 10/01/21 18:24 Methocarbamol 500 Mg Tablet PO 500 mg Q6HR PRN Administration Spasms Metoprolol Succinate 6.25 mg 10/01/21 09:00 10/02/21 09:58 Metoprolol Succinate 25 Mg Tablet PO 6.25 mg DAILY [facility]IN Administration Nicotine 1 patch 09/29/21 12:00 10/02/21 09:58 Nicotine 7 Mg Patch TOP 1 patch DAILY JIN Administration Nystatin 1 applic 10/01/21 11:00 10/02/21 21:01 Nystatin Powder 15 Gm TOP 1 applic BID JIN Administration Polyethylene Glycol 17 gm 09/26/21 16:00 10/02/21 10:00 Polyethylene Glycol 3350 17 Gm Packet PO Not Given DAILY JIN Senna 8.6 - 17.2 mg 10/01/21 09:00 10/02/21 10:00 Senna 8.6 Mg Tablet PO Not Given DAILY JIN Sodium Chloride 10 ml 09/26/21 01:00 10/03/21 00:25 Sodium Chloride Flush 0.9% 10 Ml Syringe IVP 10 ml 0100,0900,1700 JIN Administration Sodium Chloride 2 sprays 09/28/21 17:08 10/03/21 06:43 Sodium Chloride 0.65% Nasal [place] WILLIE 2 sprays Q4HR PRN Administration Nasal Congestion Temazepam 15 mg 09/27/21 08:20 10/02/21 21:00 Temazepam 15 Mg Capsule PO 15 mg QPM PRN Administration Insomnia - Lab Result Fish Bone Diagrams: 09/30/21 04:31 09/30/21 04:31 Subjective - Subjective Patient Reports: Other (Comfortably in bed. She responds appropriately to questions asked. She denies any new complaints.) Objective Vital Signs: Vital Signs - 24 hr 10/02/21 10/02/21 10/02/21 07:39 09:55 15:38 Temperature 36.5 C 36.7 C Heart Rate [ 72 77 84 Brachial] Respiratory 20 24 Rate Blood Pressure 112/67 119/75 111/65 [Right Brachial artery] O2 Saturation 91 L 94 Oxygen O2 Source [With Activity] Room air O2 Source [Without Activity] Room air O2 Source Room air I&O (Last 24 Hrs): Intake and Output Totals x24h 10/01/21 10/02/21 10/03/21 23:59 23:59 23:59 Intake Total 1160 1096 Output Total 1000 1900 650 Balance 160 -804 -650 General: Alert, Oriented x3, No acute distress HEENT: PERRLA, EOMI Neck: Supple, No JVD Neuro: Alert, Non Focal, Oriented Times 3 Cardiovascular: Regular rate Respiratory: Chest non-tender, No respiratory distress, Breath sounds nml Abdomen: Normal bowel sounds, Soft, No tenderness Extremities: No clubbing, No cyanosis, No edema, No tenderness/swelling Skin: No rashes, No breakdown, No significant lesion - Results Results: Laboratory Results WBC 9.5 x10^3/uL (4.8-10.8) 09/30/21 04:31 RBC 4.11 10^6/uL (4.20-5.40) L 09/30/21 04:31 Hgb 12.6 g/dL (12.0-16.0) 09/30/21 04:31 Hct 38.0 % (37.0-47.0) 09/30/21 04:31 MCV 92.5 fL (81.0-99.0) 09/30/21 04:31 MCH 30.7 pg (27.0-31.0) 09/30/21 04:31 MCHC 33.2 g/dL (32.0-36.0) 09/30/21 04:31 RDW 14.5 % (12.0-15.0) 09/30/21 04:31 Plt Count 315 10^3/uL (130-450) 09/30/21 04:31 MPV 11.5 fL (7.9-10.8) H 09/30/21 04:31 Neut # (Auto) 5.9 10^3/uL (1.5-6.6) 09/30/21 04:31 Lymph # (Auto) 2.7 10^3/uL (1.5-3.5) 09/30/21 04:31 [place] # (Auto) 0.7 10^3/uL (0.0-1.0) 09/30/21 04:31 Eos # (Auto) 0.0 10^3/uL (0.0-0.7) 09/30/21 04:31 Baso # (Auto) 0.1 10^3/uL (0.0-0.1) 09/30/21 04:31 Absolute Nucleated RBC 0.00 x10^3/uL 09/30/21 04:31 Total Counted 100 09/26/21 04:44 Band Neuts % (Manual) 0 % (0-10) 09/26/21 04:44 Abnorm Lymph % (Manual) 0 % 09/26/21 04:44 Nucleated RBC % 0.0 /100WBC 09/30/21 04:31 Neutrophils # (Manual) 11.7 10^3/uL (1.5-6.6) H 09/26/21 04:44 Lymphocytes # (Manual) 2.9 10^3/uL (1.5-3.5) 09/26/21 04:44 Monocytes # (Manual) 1.6 10^3/uL (0.0-1.0) H 09/26/21 04:44 Eosinophils # (Manual) 0.0 10^3/uL (0-0.7) 09/26/21 04:44 Basophils # (Manual) 0.0 10^3/uL (0-0.1) 09/26/21 04:44 Differential Comment MANUAL DIFFERENTIAL 09/26/21 04:44 Manual Slide Review Indicated 09/25/21 20:26 WBC Morphology NORMAL APPEARANCE (NORMAL) 09/26/21 04:44 Platelet Estimate NORMAL (130-450,000) (NORMAL) 09/26/21 04:44 Platelet Morphology NORMAL APPEARANCE (NORMAL) 09/26/21 04:44 RBC Morph Micro Appear NORMAL APPEARANCE (NORMAL) 09/26/21 04:44 PT 12.9 secs (9.9-12.6) H 09/25/21 20:26 INR 1.2 (0.8-1.2) 09/25/21 20:26 VBG pH 7.467 (7.31-7.41) H 09/25/21 20:38 VBG pCO2 35.8 mmHg (41-51) L 09/25/21 20:38 VBG pO2 43.3 mmHg (25-47) 09/25/21 20:38 VBG HCO3 25.3 mmol/L (23-28) 09/25/21 20:38 VBG Total CO2 26.4 mmol/L (24-29) 09/25/21 20:38 VBG O2 Saturation 79.3 % (60-80) 09/25/21 20:38 VBG Base Excess 2.0 mmol/L (-2 - +2) 09/25/21 20:38 Sodium 140 mmol/L (135-145) 09/30/21 04:31 Potassium 3.9 mmol/L (3.5-5.0) 09/30/21 04:31 Chloride 107 mmol/L (101-111) 09/30/21 04:31 Carbon Dioxide 24 mmol/L (21-32) 09/30/21 04:31 Anion Gap 9.0 (6-13) 09/30/21 04:31 BUN 17 mg/dL (6-20) 09/30/21 04:31 Creatinine 0.8 mg/dL (0.4-1.0) 09/30/21 04:31 Estimated GFR (MDRD) 72 (>89) L 09/30/21 04:31 Glucose 89 mg/dL (70-100) 09/30/21 04:31 Lactic Acid 1.8 mmol/L (0.5-2.2) 09/25/21 23:38 Calcium 9.2 mg/dL (8.5-10.3) 09/30/21 04:31 Phosphorus 4.4 mg/dL (2.5-4.6) 09/25/21 20:26 Magnesium 2.3 mg/dL (1.7-2.8) 09/25/21 20:26 Total Bilirubin 1.1 mg/dL (0.2-1.0) H 09/25/21 20:26 AST 60 IU/L (10-42) H 09/25/21 20:26 ALT 29 IU/L (10-60) 09/25/21 20:26 Alkaline Phosphatase 127 IU/L (42-121) H 09/25/21 20:26 Total Creatine Kinase 145 IU/L (22-269) 09/30/21 04:31 Total Protein 8.8 g/dL (6.7-8.2) H 09/25/21 20:26 Albumin 4.2 g/dL (3.2-5.5) 09/25/21 20: Globulin 4.6 g/dL (2.1-4.2) H 09/25/21 20:26 Albumin/Globulin Ratio 0.9 (1.0-2.2) L 09/25/21 20: TSH 0.87 uIU/mL (0.34-5.60) 09/26/21 04:44 Urine Color YELLOW 09/25/21 20:48 Urine Clarity CLEAR (CLEAR) 09/25/21 20:48 Urine pH 5.5 PH (5.0-7.5) 09/25/21 20:48 Ur Specific [place] 1.025 (1.002-1.030) 09/25/21 20:48 Urine Protein NEGATIVE mg/dL (NEGATIVE) 09/25/21 20:48 Urine Glucose (UA) NEGATIVE mg/dL (NEGATIVE) 09/25/21 20:48 Urine Ketones NEGATIVE mg/dL (NEGATIVE) 09/25/21 20:48 Urine Occult Blood TRACE-INTA (NEGATIVE) 09/25/21 20:48 Urine Nitrite NEGATIVE (NEGATIVE) 09/25/21 20:48 Urine Bilirubin NEGATIVE (NEGATIVE) 09/25/21 20:48 Urine Urobilinogen 0.2 (NORMAL) E.U./dL (NORMAL) 09/25/21 20:48 Ur Leukocyte Esterase NEGATIVE (NEGATIVE) 09/25/21 20:48 Ur Microscopic Review NOT INDICATED 09/25/21 20:48 Urine Culture Comments NOT INDICATED 09/25/21 20:48 Nasal Adenovirus (PCR) NOT DETECTED 09/25/21 20:30 Nasal B. parapertussis DNA (PCR) NOT DETECTED 09/25/21 20:30 Nasal Coronavir 229E PCR NOT DETECTED 09/25/21 20:30 Nasal Coronavir HKU1 PCR NOT DETECTED 09/25/21 20:30 Nasal Coronavir NL63 PCR NOT DETECTED 09/25/21 20:30 Nasal Coronavir OC43 PCR NOT DETECTED 09/25/21 20:30 Nasal Enterovir/Rhinovir PCR NOT DETECTED 09/25/21 20:30 Nasal Influenza B PCR NOT DETECTED 09/25/21 20:30 Nasal Influenza A PCR NOT DETECTED 09/25/21 20:30 Nasal Parainfluen 1 PCR NOT DETECTED 09/25/21 20:30 Nasal Parainfluen 2 PCR NOT DETECTED 09/25/21 20:30 Nasal Parainfluen 3 PCR NOT DETECTED 09/25/21 20:30 Nasal Parainfluen 4 PCR NOT DETECTED 09/25/21 20:30 Nasal RSV (PCR) NOT DETECTED 09/25/21 20:30 Nasal B.pertussis DNA PCR NOT DETECTED 09/25/21 20:30 Nasal C.pneumoniae (PCR) NOT DETECTED 09/25/21 20:30 Willie Human Metapneumo PCR NOT DETECTED 09/25/21 20:30 Nasal M.pneumoniae (PCR) NOT DETECTED 09/25/21 20:30 Nasal SARS-CoV-2 (PCR) NOT DETECTED 09/25/21 20:30 Urine Opiates Screen NEGATIVE (NEGATIVE) 09/25/21 20:48 Ur Oxycodone Screen NEGATIVE (NEGATIVE) 09/25/21 20:48 Urine Methadone Screen NEGATIVE (NEGATIVE) 09/25/21 20:48 Ur Propoxyphene Screen NEGATIVE (NEGATIVE) 09/25/21 20:48 Ur Barbiturates Screen NEGATIVE (NEGATIVE) 09/25/21 20:48 Ur Tricyclics Screen NEGATIVE (NEGATIVE) 09/25/21 20:48 Levetiracetam 6.5 ug/mL (10.0-40.0) L 09/26/21 08:11 Ur Phencyclidine Scrn NEGATIVE (NEGATIVE) 09/25/21 20:48 Ur Amphetamine Screen NEGATIVE (NEGATIVE) 09/25/21 20:48 U Methamphetamines Scrn NEGATIVE (NEGATIVE) 09/25/21 20:48 U Benzodiazepines Scrn NEGATIVE (NEGATIVE) 09/25/21 20:48 Urine Cocaine Screen NEGATIVE (NEGATIVE) 09/25/21 20:48 U Cannabinoids Screen NEGATIVE (NEGATIVE) 09/25/21 20:48 Ethyl Alcohol < 5.0 mg/dL 09/25/21 20:26 ABX Reporting Has patient been on IV antibiotics over the past 48 hours?: No
[2021-10-03] MEDS: CETIRIZINE 10 MG TABLET PO SCH (08:54)
[2021-10-03] MEDS: levETIRAcetam 250 MG TABLET PO SCH ×2 (08:55→21:21)
[2021-10-03] MEDS: DOCUSATE SODIUM 250 MG CAPSULE PO SCH (08:55)
[2021-10-03] MEDS: NICOTINE 7 MG PATCH TOP SCH (08:55)
[2021-10-03] MEDS: ENOXAPARIN 40 MG/0.4 ML SYRINGE SUBQ SCH (08:55)
[2021-10-03] MEDS: CYANOCOBALAMIN 500 MCG TABLET PO SCH (08:55)
[2021-10-03] MEDS: METOPROLOL SUCCINATE 25 MG TABLET PO SCH (08:55)
[2021-10-03] MEDS: polyethylene glycoL 3350 17 GM PACKET PO SCH (08:56)
[2021-10-03] MEDS: NYSTATIN POWDER 15 GM TOP SCH ×2 (08:56→21:21)
[2021-10-03] MEDS: SENNA 8.6 MG TABLET PO SCH (08:56)
[2021-10-03] MEDS: ATORVASTATIN 40 MG TABLET PO SCH (21:21)
[2021-10-03] MEDS: TEMAZEPAM 15 MG CAPSULE PO PRN (21:21)
[2021-10-03] MEDS: BACLOFEN 10 MG TABLET PO SCH (21:21)
[2021-10-04] MEDS: SODIUM CHLORIDE FLUSH 0.9% 10 ML SYRINGE IVP SCH ×2 (00:56→09:32)
[2021-10-04] MEDS: LEVOTHYROXINE 25 MCG TABLET PO SCH (05:36)
[2021-10-04] MEDS: ACETAMINOPHEN 325 MG TABLET PO PRN ×2 (05:37→12:55)
--- NOTE | 2021-10-04 07:36 | PROVIDER PROGRESS NOTE ---
Assessment/Plan - Problem List (2) Rhabdomyolysis Qualifiers: Rhabdomyolysis type: non-traumatic Qualified Code(s): M62.82 - Rhabdomyolysis - Current Meds Current Meds: Current Medications Generic Name Dose Route Start Last Admin Trade Name Freq PRN Reason Stop Dose Admin Acetaminophen 650 mg 09/25/21 21:54 10/04/21 05:37 Acetaminophen 325 Mg Tablet PO 650 mg Q4HR PRN Administration Pain 1 to 4, or Fever Atorvastatin Calcium 40 mg 09/26/21 21:00 10/03/21 21:21 Atorvastatin 40 Mg Tablet PO 40 mg QPM JIN Administration Baclofen 20 mg 09/26/21 21:00 10/03/21 21:21 Baclofen 10 Mg Tablet PO 20 mg HS JIN Administration Cetirizine HCl 10 mg 09/27/21 09:00 10/03/21 08:54 Cetirizine 10 Mg Tablet PO 10 mg DAILY JIN Administration Cyanocobalamin 1,000 mcg 09/26/21 12:00 10/03/21 08:55 Cyanocobalamin 500 Mcg Tablet PO 10/05/21 12:00 1,000 mcg DAILY JIN Administration Docusate Sodium 250 - 500 mg 10/01/21 09:00 10/03/21 08:55 Docusate Sodium 250 Mg Capsule PO Not Given DAILY JIN Enoxaparin Sodium 40 mg 09/26/21 09:00 10/03/21 08:55 Enoxaparin 40 Mg/0.4 Ml Syringe SUBQ 40 mg DAILY JIN Administration Levetiracetam 500 mg 09/26/21 09:00 10/03/21 21:21 Levetiracetam 250 Mg Tablet PO 500 mg BID JIN Administration Levothyroxine Sodium 50 mcg 09/27/21 07:00 10/04/21 05:36 Levothyroxine 25 Mcg Tablet PO 50 mcg QDAC JIN Administration Methocarbamol 500 mg 10/01/21 16:47 10/01/21 18:24 Methocarbamol 500 Mg Tablet PO 500 mg Q6HR PRN Administration Spasms Metoprolol Succinate 6.25 mg 10/01/21 09:00 10/03/21 08:55 Metoprolol Succinate 25 Mg Tablet PO Not Given DAILY JIN Nicotine 1 patch 09/29/21 12:00 10/03/21 08:55 Nicotine 7 Mg Patch TOP 1 patch DAILY JIN Administration Nystatin 1 applic 10/01/21 11:00 10/03/21 21:21 Nystatin Powder 15 Gm TOP 1 applic BID JIN Administration Polyethylene Glycol 17 gm 09/26/21 16:00 10/03/21 08:56 Polyethylene Glycol 3350 17 Gm Packet PO 17 gm DAILY JIN Administration Senna 8.6 - 17.2 mg 10/01/21 09:00 10/03/21 08:56 Senna 8.6 Mg Tablet PO Not Given DAILY JIN Sodium Chloride 10 ml 09/26/21 01:00 10/04/21 00:56 Sodium Chloride Flush 0.9% 10 Ml Syringe IVP 10 ml 0100,0900,1700 JIN Administration Sodium Chloride 2 sprays 09/28/21 17:08 10/03/21 11:21 Sodium Chloride 0.65% Nasal Garrett WILLIE 2 sprays Q4HR PRN Administration Nasal Congestion Temazepam 15 mg 09/27/21 08:20 10/03/21 21:21 Temazepam 15 Mg Capsule PO 15 mg QPM PRN Administration Insomnia - Lab Result Fish Bone Diagrams: 09/30/21 04:31 09/30/21 04:31 - Additional Planning My Orders: My Active Orders 10/04/21 07:35 BMP - BASIC METABOLIC PANEL [CHEM] Stat CBC - COMP BLD CT W/AUTO DIFF [HEME] Stat Objective Vital Signs: Vital Signs - 24 hr 10/03/21 10/03/21 08:31 08:50 Temperature 36.7 C Heart Rate [ 82 81 Brachial] Respiratory 20 Rate Blood Pressure 96/60 95/83 H [Right Brachial artery] O2 Saturation 92 Oxygen O2 Source [With Activity] Room air O2 Source [Without Activity] Room air O2 Source Room air I&O (Last 24 Hrs): Intake and Output Totals x24h 10/02/21 10/03/21 10/04/21 23:59 23:59 23:59 Intake Total 1096 1288 250 Output Total 1900 1550 600 Balance -100 -728 -422 - Results Results: Laboratory Results WBC 9.5 x10^3/uL (4.8-10.8) 09/30/21 04:31 RBC 4.11 10^6/uL (4.20-5.40) L 09/30/21 04:31 Hgb 12.6 g/dL (12.0-16.0) 09/30/21 04:31 Hct 38.0 % (37.0-47.0) 09/30/21 04:31 MCV 92.5 fL (81.0-99.0) 09/30/21 04:31 MCH 30.7 pg (27.0-31.0) 09/30/21 04:31 MCHC 33.2 g/dL (32.0-36.0) 09/30/21 04:31 RDW 14.5 % (12.0-15.0) 09/30/21 04:31 Plt Count 315 10^3/uL (130-450) 09/30/21 04:31 MPV 11.5 fL (7.9-10.8) H 09/30/21 04:31 Neut # (Auto) 5.9 10^3/uL (1.5-6.6) 09/30/21 04:31 Lymph # (Auto) 2.7 10^3/uL (1.5-3.5) 09/30/21 04:31 [place] # (Auto) 0.7 10^3/uL (0.0-1.0) 09/30/21 04:31 Eos # (Auto) 0.0 10^3/uL (0.0-0.7) 09/30/21 04:31 Baso # (Auto) 0.1 10^3/uL (0.0-0.1) 09/30/21 04:31 Absolute Nucleated RBC 0.00 x10^3/uL 09/30/21 04:31 Total Counted 100 09/26/21 04:44 Band Neuts % (Manual) 0 % (0-10) 09/26/21 04:44 Abnorm Lymph % (Manual) 0 % 09/26/21 04:44 Nucleated RBC % 0.0 /100WBC 09/30/21 04:31 Neutrophils # (Manual) 11.7 10^3/uL (1.5-6.6) H 09/26/21 04:44 Lymphocytes # (Manual) 2.9 10^3/uL (1.5-3.5) 09/26/21 04:44 Monocytes # (Manual) 1.6 10^3/uL (0.0-1.0) H 09/26/21 04:44 Eosinophils # (Manual) 0.0 10^3/uL (0-0.7) 09/26/21 04:44 Basophils # (Manual) 0.0 10^3/uL (0-0.1) 09/26/21 04:44 Differential Comment MANUAL DIFFERENTIAL 09/26/21 04:44 Manual Slide Review Indicated 09/25/21 20:26 WBC Morphology NORMAL APPEARANCE (NORMAL) 09/26/21 04:44 Platelet Estimate NORMAL (130-450,000) (NORMAL) 09/26/21 04:44 Platelet Morphology NORMAL APPEARANCE (NORMAL) 09/26/21 04:44 RBC Morph Micro Appear NORMAL APPEARANCE (NORMAL) 09/26/21 04:44 PT 12.9 secs (9.9-12.6) H 09/25/21 20:26 INR 1.2 (0.8-1.2) 09/25/21 20:26 VBG pH 7.467 (7.31-7.41) H 09/25/21 20:38 VBG pCO2 35.8 mmHg (41-51) L 09/25/21 20:38 VBG pO2 43.3 mmHg (25-47) 09/25/21 20:38 VBG HCO3 25.3 mmol/L (23-28) 09/25/21 20:38 VBG Total CO2 26.4 mmol/L (24-29) 09/25/21 20:38 VBG O2 Saturation 79.3 % (60-80) 09/25/21 20:38 VBG Base Excess 2.0 mmol/L (-2 - +2) 09/25/21 20:38 Sodium 140 mmol/L (135-145) 09/30/21 04:31 Potassium 3.9 mmol/L (3.5-5.0) 09/30/21 04:31 Chloride 107 mmol/L (101-111) 09/30/21 04:31 Carbon Dioxide 24 mmol/L (21-32) 09/30/21 04:31 Anion Gap 9.0 (6-13) 09/30/21 04:31 BUN 17 mg/dL (6-20) 09/30/21 04:31 Creatinine 0.8 mg/dL (0.4-1.0) 09/30/21 04:31 Estimated GFR (MDRD) 72 (>89) L 09/30/21 04:31 Glucose 89 mg/dL (70-100) 09/30/21 04:31 Lactic Acid 1.8 mmol/L (0.5-2.2) 09/25/21 23:38 Calcium 9.2 mg/dL (8.5-10.3) 09/30/21 04:31 Phosphorus 4.4 mg/dL (2.5-4.6) 09/25/21 20:26 Magnesium 2.3 mg/dL (1.7-2.8) 09/25/21 20:26 Total Bilirubin 1.1 mg/dL (0.2-1.0) H 09/25/21 20:26 AST 60 IU/L (10-42) H 09/25/21 20:26 ALT 29 IU/L (10-60) 09/25/21 20:26 Alkaline Phosphatase 127 IU/L (42-121) H 09/25/21 20:26 Total Creatine Kinase 145 IU/L (22-269) 09/30/21 04:31 Total Protein 8.8 g/dL (6.7-8.2) H 09/25/21 20:26 Albumin 4.2 g/dL (3.2-5.5) 09/25/21 20:26 Globulin 4.6 g/dL (2.1-4.2) H 09/25/21 20:26 Albumin/Globulin Ratio 0.9 (1.0-2.2) L 09/25/21 20:26 TSH 0.87 uIU/mL (0.34-5.60) 09/26/21 04:44 Urine Color YELLOW 09/25/21 20:48 Urine Clarity CLEAR (CLEAR) 09/25/21 20:48 Urine pH 5.5 PH (5.0-7.5) 09/25/21 20:48 Ur Specific [place] 1.025 (1.002-1.030) 09/25/21 20:48 Urine Protein NEGATIVE mg/dL (NEGATIVE) 09/25/21 20:48 Urine Glucose (UA) NEGATIVE mg/dL (NEGATIVE) 09/25/21 20:48 Urine Ketones NEGATIVE mg/dL (NEGATIVE) 09/25/21 20:48 Urine Occult Blood TRACE-INTA (NEGATIVE) 09/25/21 20:48 Urine Nitrite NEGATIVE (NEGATIVE) 09/25/21 20:48 Urine Bilirubin NEGATIVE (NEGATIVE) 09/25/21 20:48 Urine Urobilinogen 0.2 (NORMAL) E.U./dL (NORMAL) 09/25/21 20:48 Ur Leukocyte Esterase NEGATIVE (NEGATIVE) 09/25/21 20:48 Ur Microscopic Review NOT INDICATED 09/25/21 20:48 Urine Culture Comments NOT INDICATED 09/25/21 20:48 Nasal Adenovirus (PCR) NOT DETECTED 09/25/21 20:30 Nasal B. parapertussis DNA (PCR) NOT DETECTED 09/25/21 20:30 Nasal Coronavir 229E PCR NOT DETECTED 09/25/21 20:30 Nasal Coronavir HKU1 PCR NOT DETECTED 09/25/21 20:30 Nasal Coronavir NL63 PCR NOT DETECTED 09/25/21 20:30 Nasal Coronavir OC43 PCR NOT DETECTED 09/25/21 20:30 Nasal Enterovir/Rhinovir PCR NOT DETECTED 09/25/21 20:30 Nasal Influenza B PCR NOT DETECTED 09/25/21 20:30 Nasal Influenza A PCR NOT DETECTED 09/25/21 20:30 Nasal Parainfluen 1 PCR NOT DETECTED 09/25/21 20:30 Nasal Parainfluen 2 PCR NOT DETECTED 09/25/21 20:30 Nasal Parainfluen 3 PCR NOT DETECTED 09/25/21 20:30 Nasal Parainfluen 4 PCR NOT DETECTED 09/25/21 20:30 Nasal RSV (PCR) NOT DETECTED 09/25/21 20:30 Nasal B.pertussis DNA PCR NOT DETECTED 09/25/21 20:30 Nasal C.pneumoniae (PCR) NOT DETECTED 09/25/21 20:30 Willie Human Metapneumo PCR NOT DETECTED 09/25/21 20:30 Nasal M.pneumoniae (PCR) NOT DETECTED 09/25/21 20:30 Nasal SARS-CoV-2 (PCR) NOT DETECTED 09/25/21 20:30 Urine Opiates Screen NEGATIVE (NEGATIVE) 09/25/21 20:48 Ur Oxycodone Screen NEGATIVE (NEGATIVE) 09/25/21 20:48 Urine Methadone Screen NEGATIVE (NEGATIVE) 09/25/21 20:48 Ur Propoxyphene Screen NEGATIVE (NEGATIVE) 09/25/21 20:48 Ur Barbiturates Screen NEGATIVE (NEGATIVE) 09/25/21 20:48 Ur Tricyclics Screen NEGATIVE (NEGATIVE) 09/25/21 20:48 Levetiracetam 6.5 ug/mL (10.0-40.0) L 09/26/21 08:11 Ur Phencyclidine Scrn NEGATIVE (NEGATIVE) 09/25/21 20:48 Ur Amphetamine Screen NEGATIVE (NEGATIVE) 09/25/21 20:48 U Methamphetamines Scrn NEGATIVE (NEGATIVE) 09/25/21 20:48 U Benzodiazepines Scrn NEGATIVE (NEGATIVE) 09/25/21 20:48 Urine Cocaine Screen NEGATIVE (NEGATIVE) 09/25/21 20:48 U Cannabinoids Screen NEGATIVE (NEGATIVE) 09/25/21 20:48 Ethyl Alcohol < 5.0 mg/dL 09/25/21 20:26
[2021-10-04 07:50] LABS: BASOPHILS # (AUTO) 0.1 10^3/uL (0.0-0.1); HCT - HEMATOCRIT 38.4 % (37.0-47.0); HGB - HEMOGLOBIN 12.5 g/dL (12.0-16.0); LYMPHOCYTES # (AUTO) 2.6 10^3/uL (1.5-3.5); LYMPHOCYTES % (AUTO) 28.7 %; MEAN CORPUSCULAR HEMOGLOBIN 30.5 pg (27.0-31.0); MEAN CORPUSCULAR HGB CONC 32.6 g/dL (32.0-36.0); MEAN CORPUSCULAR VOLUME 93.7 fL (81.0-99.0); MEAN PLATELET VOLUME 10.1 fL (7.9-10.8); NEUTROPHILS # (AUTO) 5.3 10^3/uL (1.5-6.6); NEUTROPHILS % (AUTO) 58.6 %; PLT - PLATELET COUNT 322 10^3/uL (130-450); RED CELL DISTRIBUTION WIDTH 14.6 % (12.0-15.0)
[2021-10-04 07:59] LABS: CALCIUM 9.3 mg/dL (8.5-10.3); CREATININE 0.8 mg/dL (0.4-1.0); POTASSIUM 4.2 mmol/L (3.5-5.0)
[2021-10-04 08:37] VITALS: BP 104/61
[2021-10-04] MEDS: CETIRIZINE 10 MG TABLET PO SCH (09:25)
[2021-10-04] MEDS: ENOXAPARIN 40 MG/0.4 ML SYRINGE SUBQ SCH ×2 (09:26→09:32)
[2021-10-04] MEDS: NICOTINE 7 MG PATCH TOP SCH (09:26)
[2021-10-04] MEDS: levETIRAcetam 250 MG TABLET PO SCH (09:26)
[2021-10-04] MEDS: CYANOCOBALAMIN 500 MCG TABLET PO SCH (09:26)
[2021-10-04] MEDS: NYSTATIN POWDER 15 GM TOP SCH (09:27)
[2021-10-04] MEDS: polyethylene glycoL 3350 17 GM PACKET PO SCH (09:31)
[2021-10-04] MEDS: SODIUM CHLORIDE 0.65% NASAL SPRAY NAS PRN (09:31)
[2021-10-04] MEDS: DOCUSATE SODIUM 250 MG CAPSULE PO SCH (09:31)
[2021-10-04] MEDS: METOPROLOL SUCCINATE 25 MG TABLET PO SCH (09:32)
[2021-10-04] MEDS: SENNA 8.6 MG TABLET PO SCH (09:32)
--- NOTE | 2021-10-04 15:07 | DISCHARGE SUMMARY ---
Discharge Summary Admit Date: 09/25/21 Discharge Date: 10/04/21 Discharging Provider: Raf Benoit Primary Care Provider: Yenny Markham Code Status: Attempt Resuscitation Condition at Discharge: Stable Discharge Disposition: 61 Swing Bed DC/Xfer - DIAGNOSES Admission Diagnoses: Acute encephalopathy Rhabdomyolysis Leukocytosis Acute kidney injury Hypothyroidism Seizure disorder Discharge Diagnoses with Status of Each Condition: Acute encephalopathy: Resolved. Patient is back to base line Rhabdomyolysis: Acute. Resolved Leukocytosis: Reactive. Acute. Resolved Acute kidney injury: Resolved Hypothyroidism: Chronic. Stable. Continue home medications Seizure disorder: Stable. Continue home medication Hypotension: Improved. Metoprolol dose decreased History of coronary artery disease: Stable. Continue home medications Generalized weakness: Discharged to Swing bed for Rehab - HPI History of Present Illness: 65-year-old woman brought in by ambulance for altered mental status. Reportedly last seen yesterday. She is able to state she fell off the couch and was on the floor, was not able to state why she could not get back up. She was found on the floor next to the couch by paramedics. She is altered and unable to give much of the history. When asked if she is in pain she says yes, unable to state where. Review of the chart shows that this is a recurrent phenomenon with multiple admissions with almost the exact same presenting complaint. - HOSPITAL COURSE Hospital Course: This was the main reason she was admitted.Etiology undetermined. She has had [facility] for [facility]opathy. In the past it was usually associated with misuse of Sudafed [id number]. She has multiple sclerosis Hx , so possibly MS flares. The encephalopathy would result in inability to eat or drink appropriately and she would have UTIs, dehydration, rhabdomyolysis. CT of head and neck showed no acute intracranial abnormalities at this admission. Toxicology was negative. She did not have a urinary tract infection. She did have an elevated white cell count, rhabdo again, dehydration again. She has received iv hydration, and holding any sedating drugs. She usually wakes up, becomes baseline, and works with rehab. We think this patient becomes altered due to what ever she does at home, which includes medical noncompliance with her medications. This lends itself to a downhill slide and repeat admission. 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 It is very difficult taking care of this patient and that she has the legal right to make her own decisions but her decisions have been very poor. Adult Protective Services was notified again. Social work working with this patient about where her disposition will be which was most likely be rehab to strengthen her and [facility] after that (if she agrees). Patient was admitted on 09/25/21 with altered mental status. She was found on the floor her couch by paramedics. She frequently presents to the emergency department in stable condition. By 09/28/2021 patient was back to her baseline. She was seen by PT OT who recommended SNF Patient had episodes of low blood pressures in the morning as a result her metoprolol succinate was decreased from 25 mg daily down to 6.25 mg daily. She also had rhabdomyolysis at time of presentation with CK of 2406. With IV hydration her creatinine kinase decreased down to 145. Patient was discharged on 10/04/2021 to be admitted to the [facility]. Patient was in stable condition at the time of discharge. - ALLERGIES Allergies/Adverse Reactions: Allergies Allergy/AdvReac Type Severity Reaction Status Date / Time No Known Drug Allergies Allergy Verified 09/25/21 20:26 - MEDICATIONS Home Medications: Ambulatory Orders Medication Instructions Recorded Confirmed Levothyroxine Sodium 50 mcg PO QDAC 07/18/19 09/26/21 Multivitamin/Iron/Folic Acid 1 ea ORAL DAILY 07/18/19 09/26/21 [Centrum Women Tablet] Calcium Carbonate/Vitamin D3 1 each PO DAILY 12/09/20 09/26/21 [Calcium 500Mg-Vit D3 15Mcg Tab] Atorvastatin [Lipitor] 40 mg PO QPM #0 12/21/20 09/26/21 Furosemide [Lasix] 10 mg PO DAILY 02/12/21 09/26/21 Potassium Chloride [Klor-Con 10] 10 meq PO DAILY 02/12/21 09/26/21 Cholecalciferol [Vitamin D3] 25 mcg PO DAILY 02/13/21 09/26/21 Levetiracetam [Keppra] 500 mg PO BID 04/16/21 09/26/21 Baclofen [Lioresal] 20 mg PO HS 09/08/21 09/26/21 Metoprolol Succinate [Toprol Xl] 6.25 mg PO DAILY #0 10/04/21 09/26/21 - PHYSICAL EXAM AT DISCHARGE General Appearance: positive: No acute distress, Alert Eyes Bilateral: positive: PERRL, EOMI ENT: positive: No signs of dehydration Neck: positive: No JVD, Trachea midline Respiratory: positive: Chest non-tender, No respiratory distress, Breath sounds nml. negative: Wheezes, Rales, Rhonchi Cardiovascular: positive: Regular rate & rhythm, No murmur Abdomen: positive: Non-tender, No organomegaly, Nml bowel sounds, No distention. negative: Guarding, Rebound Back: positive: Nml inspection Skin: positive: Color nml, No rash, Warm, Dry Extremities: positive: Non-tender, Full ROM, Nml appearance, No pedal edema Neurologic/Psychiatric: positive: Oriented x3, Motor nml, Mood/affect nml - LABS Result Diagrams: 10/04/21 07:45 10/04/21 07:45 - TIME SPENT Time Spent in Discharge (Minutes): 15
--- NOTE | 2021-10-04 15:10 | Discharge Plan ---
Discharge Plan Problem Reviewed?: Yes Disposition: 61 Swing Bed DC/Xfer Condition: Stable Diet: Regular Activity Restrictions: Per Physical Therapy Health Concerns: Patient was admitted on 09/25/21 with altered mental status. She was found on the floor her couch by paramedics. She frequently presents to the emergency department in stable condition. By 09/28/2021 patient was back to her baseline. She was seen by PT OT who recommended SNF Patient had episodes of low blood pressures in the morning as a result her metoprolol succinate was decreased from 25 mg daily down to 6.25 mg daily. She also had rhabdomyolysis at time of presentation with CK of 2406. With IV hydration her creatinine kinase decreased down to 145. Patient was discharged on 10/04/2021 to be admitted to the swing bed and [facility]. Patient was in stable condition at the time of discharge. No Smoking: If you smoke, Please STOP! Call for help.
== END 2021-10-04 16:14 | disposition swing bed (61) | DRG 71 ==
LOC: EDUNIT# → ED 20:14 → MS2 21:54 → OBSVTOIN 09-26 10:55
PROVIDERS: ADMIT Internal Medicine; ATTEND Internal Medicine
DX: G93.40 Encephalopathy, unspecified (principal); M62.82 Rhabdomyolysis; N17.9 Acute kidney failure, unspecified; Z20.822 Contact with and (suspected) exposure to COVID-19; D72.829 Elevated white blood cell count, unspecified; E03.9 Hypothyroidism, unspecified; G40.909 Epilepsy, unspecified, not intractable, without status epilepticus; R32 Unspecified urinary incontinence; I95.9 Hypotension, unspecified; I25.10 Atherosclerotic heart disease of native coronary artery without angina pectoris; R53.1 Weakness; W08.XXXA Fall from other furniture, initial encounter; Y92.9 Unspecified place or not applicable; F17.200 Nicotine dependence, unspecified, uncomplicated; M54.9 Dorsalgia, unspecified; G35 Multiple sclerosis; E86.0 Dehydration; I10 Essential (primary) hypertension; I25.2 Old myocardial infarction; F32.A Depression, unspecified; R09.02 Hypoxemia
CPT/HCPCS: 36415; 51701; 70450; 71045; 72125; 80048; 80053; 80177; 80306; 81003; 82550; 82803; 83605; 83735; 84100; 84443; 85025; 85610; 87040; 87633; 93005; 96360; 96361; 96372; 97162; 97165; 97530; 99281; 99285; A9270; G0378; G0480; J1650; 80320; 81001; 87086

== ENCOUNTER 2021-10-31 09:13 | Inpatient (IN) | payer MEDICARE, MEDICAID ==
[2021-10-31] MEDS ORDERED: SODIUM CHLORIDE 0.9% 1,000 ML IV STA ×2 (09:24→11:14)
[2021-10-31 09:38] LABS: BASOPHILS # (AUTO) 0.1 10^3/uL (0.0-0.1); BASOPHILS % (AUTO) 0.8 %; HCT - HEMATOCRIT 44.1 % (37.0-47.0); HGB - HEMOGLOBIN 14.8 g/dL (12.0-16.0); LYMPHOCYTES # (AUTO) 2.6 10^3/uL (1.5-3.5); LYMPHOCYTES % (AUTO) 17.7 %; MEAN CORPUSCULAR HEMOGLOBIN 29.8 pg (27.0-31.0); MEAN CORPUSCULAR HGB CONC 33.6 g/dL (32.0-36.0); MEAN CORPUSCULAR VOLUME 88.7 fL (81.0-99.0); MEAN PLATELET VOLUME 10.4 fL (7.9-10.8); MONOCYTES # (AUTO) 1.1 10^3/uL (0.0-1.0); MONOCYTES % (AUTO) 7.6 %; NEUTROPHILS % (AUTO) 73.5 %; PLT - PLATELET COUNT 352 10^3/uL (130-450); RED BLOOD COUNT 4.97 10^6/uL (4.20-5.40); RED CELL DISTRIBUTION WIDTH 13.5 % (12.0-15.0)
[2021-10-31 09:57] LABS: MUDS CUTOFF CONCENTRATIONS CUTOFF CONC BELOW:
[2021-10-31 09:58] LABS: BILIRUBIN,URINE NEGATIVE (NEGATIVE); GLUCOSE, URINE (UA) NEGATIVE (NEGATIVE); KETONES,URINE (UA) NEGATIVE (NEGATIVE); LEUKOCYTE ESTERASE, URINE SMALL (NEGATIVE); NITRITE,URINE NEGATIVE (NEGATIVE); OCCULT BLOOD,URINE NEGATIVE (NEGATIVE); PROTEIN,URINE TRACE mg/dL (NEGATIVE); UROBILINOGEN,URINE 0.2 (NORMAL) E.U./dL (NORMAL)
[2021-10-31 10:02] LABS: CLARITY,URINE HAZY (CLEAR)
[2021-10-31 10:04] LABS: ALBUMIN 4.2 g/dL (3.2-5.5); BILIRUBIN,TOTAL 0.3 mg/dL (0.2-1.0); CALCIUM 9.6 mg/dL (8.5-10.3); CREATININE 2.5 mg/dL (0.4-1.0); POTASSIUM 3.6 mmol/L (3.5-5.0); TOTAL PROTEIN 8.5 g/dL (6.7-8.2)
[2021-10-31 10:10] LABS: AMPHETAMINE SCREEN,URINE NEGATIVE (NEGATIVE); BARBITURATE SCREEN,UR NEGATIVE (NEGATIVE); BENZODIAZEPINES SCREEN, URINE NEGATIVE (NEGATIVE); COCAINE SCREEN URINE NEGATIVE (NEGATIVE); METHADONE SCREEN, URINE NEGATIVE (NEGATIVE); METHAMPHETAMINES SCREEN, URINE NEGATIVE (NEGATIVE); OPIATE SCREEN, URINE NEGATIVE (NEGATIVE); OXYCODONE SCREEN, URINE NEGATIVE (NEGATIVE); PROPOXYPHENE SCREEN, URINE NEGATIVE (NEGATIVE); THC CANNABINOID SCREEN, URINE NEGATIVE (NEGATIVE); TRICYCLIC ANTIDEPRESSANT,URINE NEGATIVE (NEGATIVE)
[2021-10-31 10:13] LABS: BACTERIA,URINE Moderate /HPF (None Seen); RBC,URINE 0-5 /HPF (0-5); SQUAMOUS EPITHELIAL CELL,UR FEW Squamous (<= Few); WBC CLUMPS,URINE PRESENT; WBC,URINE >25 /HPF (0-5)
--- NOTE | 2021-10-31 11:57 | CT Report ---
PROCEDURE: HEAD WO INDICATIONS: ALOC TECHNIQUE: Noncontrast 4.5 mm thick angled axial sections acquired from the foramen magnum to the vertex. For r adiation dose reduction, the following was used: automated exposure control, adjustment of mA and/or kV according to patient size. COMPARISON: CT head 09/25/2021 FINDINGS: Image quality: Mild motion is present throughout portions of the exam, limiting areas of fine detail evaluation. The ventricular system and cortical sulci demonstrate atrophy, consistent for patient's stated age. There are areas of hypodensity in the periventricular and subcortical white matter. There is no acut e intra or extra-axial fluid collection. No acute hemorrhage, mass lesion or midline shift. Brainst em is unremarkable. Globes are symmetrical. Sinuses are aerated. Osseous structures are intact. IMPRESSION: 1. No acute intracranial process. 2. Mild atrophy and chronic microvascular ischemic changes. Reviewed by: Jessika Arguello MD on 10/31/2021 11:55 AM PDT Approved by: Jessika Arguello MD on 10/31/2021 11:55 AM PDT Station ID: [id number]
[2021-10-31] MEDS ORDERED: ONDANSETRON 4 MG/2 ML VIAL IVP PRN (12:02)
[2021-10-31] MEDS ORDERED: SODIUM CHLORIDE FLUSH 0.9% 10 ML SYRINGE IVP PRN (12:02)
--- NOTE | 2021-10-31 12:03 | ED Physician Documentation ---
History of Present Illness - Stated complaint Stated Complaint: AMS - Chief complaint Chief Complaint: Neuro - History obtained from History obtained from: EMS - Additonal information Additional information: The patient is brought to the emergency department by EMS after being found to be running around her apartment yard and trying to get into her neighbor's car. The patient was wearing only a depends and was yelling incoherently and neighbor called the police. Medics showed up and patient was agitated but not able to give them any coherent information. They report she has been alternating be tween somnolence and agitation in route. Review of the patient's records reveals patient's been seen many times for similar presentations and has a number of times been found to be encephalopathic/delirious from UTI. She has also had issues with medication balance previously. The patient does have some mental health history including depression and ADHD. The patient has not able to offer any information on her own. Review of Systems Unable to obtain: [place] PD PAST MEDICAL HISTORY - Past Medical History Cardiovascular: Hypertension, Coronary artery disease, [place] Respiratory: None Neuro: Multiple sclerosis Endocrine/Autoimmune: Other GI: None CORSET MAKER: Other : Chronic bladder infection HEENT: None Psych: Depression, ADD/ADHD Musculoskeletal: Chronic back pain, Other Derm: Other - Past Surgical History Past Surgical History: Yes Ortho: Spine surgery /CORSET MAKER: Hysterectomy - Present Medications Home Medications: Ambulatory Orders Medication Instructions Recorded Confirmed Levothyroxine Sodium 50 mcg PO QDAC 07/18/19 10/05/21 Multivitamin/Iron/Folic Acid 1 ea ORAL DAILY 07/18/19 10/05/21 [Centrum Women Tablet] Calcium Carbonate/Vitamin D3 1 each PO DAILY 12/09/20 10/05/21 [Calcium 500Mg-Vit D3 15Mcg Tab] Atorvastatin [Lipitor] 40 mg PO QPM #0 12/21/20 10/05/21 Furosemide [Lasix] 10 mg PO DAILY 02/12/21 10/05/21 Potassium Chloride [Klor-Con 10] 10 meq PO DAILY 02/12/21 10/05/21 Cholecalciferol [Vitamin D3] 25 mcg PO DAILY 02/13/21 10/05/21 Levetiracetam [Keppra] 500 mg PO BID 04/16/21 10/05/21 Baclofen [Lioresal] 10 mg PO HS 09/08/21 10/05/21 Metoprolol Succinate [Toprol Xl] 6.25 mg PO DAILY #0 10/04/21 10/05/21 - Allergies Allergies/Adverse Reactions: Allergies Allergy/AdvReac Type Severity Reaction Status Date / Time No Known Drug Allergies Allergy Verified 09/25/21 20:26 - Social History Does the pt smoke?: Yes Smoking Status: Current every day smoker Does the pt drink ETOH?: No Does the pt have substance abuse?: Yes - Immunizations Immunizations are current?: No - POLST Patient has POLST: No POLST Status: Full Code PD ED PE NORMAL - Vitals Vital signs reviewed: Yes - General General: No acute distress, Well developed/nourished, Other (Patient is intermittently yelling and screaming and somnolent. She is mildly disheveled but overall, clean and dressed.) - HEENT HEENT: Atraumatic, PERRL, EOMI, Moist mucous membranes - Neck Neck: Supple, no meningeal sign - Cardiac Cardiac: RRR, No murmur, Strong equal pulses - Respiratory Respiratory: No respiratory distress, Clear bilaterally - Abdomen Abdomen: Soft, Non tender, Non distended - Derm Derm: Normal color, Warm and dry, No rash - Extremities Extremities: No deformity, No edema - Neuro Neuro: Other (Moving x4 extremities, otherwise unable to Cooperate with neurologic exam.) - Psych Psych: Normal mood, Normal affect Results - Vitals Vitals: Vital Signs - 24 hr 10/31/21 10/31/21 10/31/21 09:22 09:55 10:27 Temperature 37.0 C Heart Rate 75 86 75 Respiratory 18 21 14 Rate Blood Pressure 102/75 116/79 99/64 O2 Saturation 94 96 95 10/31/21 10/31/21 10/31/21 11:00 11:26 11:57 Temperature 97.6 C H Heart Rate 64 65 66 Respiratory 12 12 16 Rate Blood Pressure 87/57 L 139/109 H 109/98 H O2 Saturation 96 100 98 Oxygen O2 Source [With Activity] Room air O2 Source [Without Activity] Room air O2 Source Room air - Labs Labs: Laboratory Tests 10/31/21 10/31/21 10/31/21 09:33 09:33 09:33 WBC 15.0 H RBC 4.97 Hgb 14.8 Hct 44.1 MCV 88.7 MCH 29.8 MCHC 33.6 RDW 13.5 Plt Count 352 MPV 10.4 Neut # (Auto) 11.0 H Lymph # (Auto) 2.6 [place] # (Auto) 1.1 H Eos # (Auto) 0.0 Baso # (Auto) 0.1 Absolute Nucleated RBC 0.00 Nucleated RBC % 0.0 Sodium 143 Potassium 3.6 Chloride 99 L Carbon Dioxide 25 Anion Gap 19.0 H BUN 30 H Creatinine 2.5 H Estimated GFR (MDRD) 19 L Glucose 143 H Lactic Acid Calcium 9.6 Total Bilirubin 0.3 AST 24 ALT 27 Alkaline Phosphatase 112 Total Creatine Kinase 222 Total Protein 8.5 H Albumin 4.2 Globulin 4.3 H Albumin/Globulin Ratio 1.0 Lipase 61 H TSH Urine Color Urine Clarity Urine pH Ur Specific [place] Urine Protein Urine Glucose (UA) Urine Ketones Urine Occult Blood Urine Nitrite Urine Bilirubin Urine Urobilinogen Ur Leukocyte Esterase Urine RBC Urine WBC Urine WBC Clumps Ur Squamous Epith Cells Urine Bacteria Ur Microscopic Review Urine Culture Comments Nasal Adenovirus (PCR) Nasal B. parapertussis DNA (PCR) Nasal Coronavir 229E PCR Nasal Coronavir HKU1 PCR Nasal Coronavir NL63 PCR Nasal Coronavir OC43 PCR Nasal Enterovir/Rhinovir PCR Nasal Influenza B PCR Nasal Influenza A PCR Nasal Parainfluen 1 PCR Nasal Parainfluen 2 PCR Nasal Parainfluen 3 PCR Nasal Parainfluen 4 PCR Nasal RSV (PCR) Nasal B.pertussis DNA PCR Nasal C.pneumoniae (PCR) Jaya Human Metapneumo PCR Nasal M.pneumoniae (PCR) Nasal SARS-CoV-2 (PCR) Urine Opiates Screen Ur Oxycodone Screen Urine Methadone Screen Ur Propoxyphene Screen Ur Barbiturates Screen Ur Tricyclics Screen Ur Phencyclidine Scrn Ur Amphetamine Screen U Methamphetamines Scrn U Benzodiazepines Scrn Urine Cocaine Screen U Cannabinoids Screen Ethyl Alcohol 10/31/21 10/31/21 10/31/21 09:33 09:50 09:50 WBC RBC Hgb Hct MCV MCH MCHC RDW Plt Count MPV Neut # (Auto) Lymph # (Auto) [place] # (Auto) Eos # (Auto) Baso # (Auto) Absolute Nucleated RBC Nucleated RBC % Sodium Potassium Chloride Carbon Dioxide Anion Gap BUN Creatinine Estimated GFR (MDRD) Glucose Lactic Acid Calcium Total Bilirubin AST ALT Alkaline Phosphatase Total Creatine Kinase Total Protein Albumin Globulin Albumin/Globulin Ratio Lipase TSH 2.92 Urine Color YELLOW Urine Clarity HAZY Urine pH 6.0 Ur Specific [place] 1.025 Urine Protein TRACE Urine Glucose (UA) NEGATIVE Urine Ketones NEGATIVE Urine Occult Blood NEGATIVE Urine Nitrite NEGATIVE Urine Bilirubin NEGATIVE Urine Urobilinogen 0.2 (NORMAL) Ur Leukocyte Esterase SMALL H Urine RBC 0-5 Urine WBC >25 H Urine WBC Clumps PRESENT Ur Squamous Epith Cells FEW Squamous Urine Bacteria Moderate H Ur Microscopic Review INDICATED Urine Culture Comments INDICATED Nasal Adenovirus (PCR) Nasal B. parapertussis DNA (PCR) Nasal Coronavir 229E PCR Nasal Coronavir HKU1 PCR Nasal Coronavir NL63 PCR Nasal Coronavir OC43 PCR Nasal Enterovir/Rhinovir PCR Nasal Influenza B PCR Nasal Influenza A PCR Nasal Parainfluen 1 PCR Nasal Parainfluen 2 PCR Nasal Parainfluen 3 PCR Nasal Parainfluen 4 PCR Nasal RSV (PCR) Nasal B.pertussis DNA PCR Nasal C.pneumoniae (PCR) Jaya Human Metapneumo PCR Nasal M.pneumoniae (PCR) Nasal SARS-CoV-2 (PCR) Urine Opiates Screen NEGATIVE Ur Oxycodone Screen NEGATIVE Urine Methadone Screen NEGATIVE Ur Propoxyphene Screen NEGATIVE Ur Barbiturates Screen NEGATIVE Ur Tricyclics Screen NEGATIVE Ur Phencyclidine Scrn NEGATIVE Ur Amphetamine Screen NEGATIVE U Methamphetamines Scrn NEGATIVE U Benzodiazepines Scrn NEGATIVE Urine Cocaine Screen NEGATIVE U Cannabinoids Screen NEGATIVE Ethyl Alcohol < 5.0 10/31/21 10/31/21 11:50 11:54 WBC RBC Hgb Hct MCV MCH MCHC RDW Plt Count MPV Neut # (Auto) Lymph # (Auto) [place] # (Auto) Eos # (Auto) Baso # (Auto) Absolute Nucleated RBC Nucleated RBC % Sodium Potassium Chloride Carbon Dioxide Anion Gap BUN Creatinine Estimated GFR (MDRD) Glucose Lactic Acid 1.8 Calcium Total Bilirubin AST ALT Alkaline Phosphatase Total Creatine Kinase Total Protein Albumin Globulin Albumin/Globulin Ratio Lipase TSH Urine Color Urine Clarity Urine pH Ur Specific [place] Urine Protein Urine Glucose (UA) Urine Ketones Urine Occult Blood Urine Nitrite Urine Bilirubin Urine Urobilinogen Ur Leukocyte Esterase Urine RBC Urine WBC Urine WBC Clumps Ur Squamous Epith Cells Urine Bacteria Ur Microscopic Review Urine Culture Comments Nasal Adenovirus (PCR) NOT DETECTED Nasal B. parapertussis DNA (PCR) NOT DETECTED Nasal Coronavir 229E PCR NOT DETECTED Nasal Coronavir HKU1 PCR NOT DETECTED Nasal Coronavir NL63 PCR NOT DETECTED Nasal Coronavir OC43 PCR NOT DETECTED Nasal Enterovir/Rhinovir PCR NOT DETECTED Nasal Influenza B PCR NOT DETECTED Nasal Influenza A PCR NOT DETECTED Nasal Parainfluen 1 PCR NOT DETECTED Nasal Parainfluen 2 PCR NOT DETECTED Nasal Parainfluen 3 PCR NOT DETECTED Nasal Parainfluen 4 PCR NOT DETECTED Nasal RSV (PCR) NOT DETECTED Nasal B.pertussis DNA PCR NOT DETECTED Nasal C.pneumoniae (PCR) NOT DETECTED Jaya Human Metapneumo PCR NOT DETECTED Nasal M.pneumoniae (PCR) NOT DETECTED Nasal SARS-CoV-2 (PCR) NOT DETECTED Urine Opiates Screen Ur Oxycodone Screen Urine Methadone Screen Ur Propoxyphene Screen Ur Barbiturates Screen Ur Tricyclics Screen Ur Phencyclidine Scrn Ur Amphetamine Screen U Methamphetamines Scrn U Benzodiazepines Scrn Urine Cocaine Screen U Cannabinoids Screen Ethyl Alcohol - Rads (name of study) Head CT Radiology: Final report received, EMP read indepedently, See rad report (No acute findings) PD MEDICAL DECISION MAKING - ED course Complexity details: reviewed old records, reviewed results, re-evaluated patient, considered differential, d/w center consultant ED course: The patient was given IV fluids and worked up with laboratory studies including UA, which did show a urinary tract infection. TSH was normal, as was her lactic acid level. She was also found to have worsening kidney function since the beginning of this month. Head CT was unremarkable. Patient remained hemodynamically stable in the emergency department. She did not improve in mentation after IV fluids and I felt she would need to be admitted. Case was discussed with Dr. Benoit who is on-call for hospitalist service and he did agree to admit the patient to his service. Departure - Departure Disposition: 66 [facility] DC/Xfer Clinical Impression: Encephalopathy acute UTI (urinary tract infection) Qualifiers: Urinary tract infection type: acute cystitis Hematuria presence: without hematuria Qualified Code(s): N30.00 - Acute cystitis without hematuria Condition: Serious Discharge Date/Time: 10/31/21 12:47
[2021-10-31] MEDS ORDERED: AMPICILLIN 2 GM in SODIUM CHLORIDE 0.9% MINIBAG 100 ML IV STA (12:05)
--- NOTE | 2021-10-31 12:11 | HISTORY & PHYSICAL EXAMINATION ---
Chief Complaint - Chief Complaint Chief Complaint: altered mental status History of Present Illness - Admitted From Admitted From:: [facility], [facility]–1983 ED - History Obtained From Records Reviewed: yes History obtained from: ED provider Exam Limitations: altered mental status - History of Present Illness HPI Comment/Other: 65-year-old female who is well-known to the hospitalist service who was brought in by EMS after a neighbor called 911. The patient was in her yard shouting and appeared confused. She is not able to provide further history due to the altered mental status. She was last admitted to the hospital on 09/25/21 with similar presentation and discharged 10/04/21. Work-up included a urinalysis which indicated a UTI. She had a white blood cell count of 15. She also had very dry oral mucosa and her creatinine was 2.5. She was presented for admission for further treatment. History - Past Medical History Cardiovascular: reports: Hypertension, Coronary artery disease, [place] Respiratory: reports: None Neuro: reports: Multiple sclerosis Endocrine/Autoimmune: reports: Other GI: reports: None HEATING ENGINEER: reports: Other : reports: Chronic bladder infection HEENT: reports: None Psych: reports: Depression, ADD/ADHD Musculoskeletal: reports: Chronic back pain, Other Derm: reports: Other MRSA Hx?: No - Past Surgical History Ortho: reports: Spine surgery /HEATING ENGINEER: reports: Hysterectomy - Family & Social History Family History Comment/Other: Unable to update this family history but below is the family history from last admission which was obtained from her niece, Latisha. The patient has been adopted by a stepfather and he is still alive in his 80s. Her father of bone cancer when she was a very little girl. Mom is and of heart disease but had lung cancer before she . 1 brother of the same bone cancer that his father of. 1 brother is alive but has A. fib. No sisters. No children. Living Situation: Alone Social History Notes: Unable to update the social history given her enc ephalopathy but review of prior review of systems revealed that she is a smoker and does not have a history of alcohol abuse. She has a history of illicit drug use, probably LSD back in the 1970s. - Substance History Use: Uses substance without health or social issues: Tobacco - POLST Patient has POLST: No POLST Status: Full Code Meds/Allgy - Home Medications Home Medications: Ambulatory Orders Medication Instructions Recorded Confirmed Levothyroxine Sodium 50 mcg PO QDAC 07/18/19 10/31/21 Multivitamin/Iron/Folic Acid 1 tab PO DAILY 07/18/19 10/31/21 [Centrum Women Tablet] Calcium Carbonate/Vitamin D3 1 each PO DAILY 12/09/20 10/31/21 [Calcium 500Mg-Vit D3 15Mcg Tab] Atorvastatin [Lipitor] 40 mg PO QPM #0 12/21/20 10/31/21 Furosemide [Lasix] 10 mg PO DAILY 02/12/21 10/31/21 Potassium Chloride [Klor-Con 10] 10 meq PO DAILY 02/12/21 10/31/21 Cholecalciferol [Vitamin D3] 25 mcg PO DAILY 02/13/21 10/31/21 Levetiracetam [Keppra] 500 mg PO BID 04/16/21 10/31/21 Baclofen [Lioresal] 10 mg PO HS 09/08/21 10/31/21 Metoprolol Succinate [Toprol Xl] 6.25 mg PO DAILY #0 10/04/21 10/31/21 - Allergies Allergies/Adverse Reactions: Allergies Allergy/AdvReac Type Severity Reaction Status Date / Time No Known Drug Allergies Allergy Verified 09/25/21 20:26 Review of Systems - Other Findings Other Findings: A 12 point review of system is limited because the patient is currently very altered and unable to provide history. Exam - Vital Signs Vital Signs: Vital Signs x48h Temp Pulse Resp BP Pulse Ox 10/31/21 11:57 97.6 C H 66 16 109/98 H 98 10/31/21 11:26 65 12 139/109 H 100 10/31/21 11:00 64 12 87/57 L 96 10/31/21 10:27 75 14 99/64 95 10/31/21 09:55 86 21 116/79 96 10/31/21 09:22 37.0 C 75 18 102/75 94 - Physical Exam General Appearance: positive: No acute distress, Other (somnolent) Eyes Bilateral: positive: PERRL, EOMI ENT: positive: Dry mucous membranes Neck: positive: Thyroid nml, No JVD, Trachea midline Respiratory: positive: Chest non-tender, No respiratory distress, Breath sounds nml. negative: Wheezes, Rales, Rhonchi Cardiovascular: positive: Regular rate & rhythm, No murmur Abdomen: positive: Non-tender, No organomegaly, Nml bowel sounds, No distention. negative: Guarding, Rebound Back: positive: Nml inspection Skin: positive: Warm, Dry, Other (psoariatic plaques all over body) Extremities: positive: Non-tender, Full ROM, Nml appearance, No pedal edema Neurologic/Psychiatric: positive: Disoriented to person, Disoriented to place, Disoriented to time Conclusion/Plan - Problem List (1) Acute encephalopathy Conclusion/Plan: Secondary to UTI and dehydration. Patient is on Rocephin 1 g IV daily. Blood and urine cultures pending. Normal saline at 125 mL/h. (2) UTI (urinary tract infection) Conclusion/Plan: During patient's previous admission she also had a UTI which grew E faecalis and E. coli. Patient had a white blood cell count of 15 today and a urine analysis strongly indicated of of a UTI. Urine and blood cultures pending. Patient was started on Rocephin 1 g IV daily. IV hydration with normal saline at 125 mL/h. Qualifiers: Urinary tract infection type: acute cystitis Hematuria presence: without hematuria Qualified Code(s): N30.00 - Acute cystitis without hematuria (3) KJ (acute kidney injury) Conclusion/Plan: Secondary to dehydration and UTI. Patient receiving IV hydration with normal saline at 125 mL/h. Creatinine was 2.5. We will check renal function with BMP daily. (4) HTN (hypertension) Conclusion/Plan: On metoprolol succinate 6.25 mg p.o. daily. (5) Hyperlipidemia Conclusion/Plan: Atorvastatin 40 mg p.o. every afternoon. (6) Hypothyroidism Conclusion/Plan: TSH was 2.92. On Synthroid 50 mcg p.o. daily AC. (7) Seizure disorder Conclusion/Plan: Keppra 500 mg p.o. twice daily. - Lab Results Fish Bones: 11/01/21 05:37 11/01/21 05:37 Core Measures - Anticipated LOS I expect patient to be DC'd or transferred within 96 hours.: Yes - DVT/VTE - Prophylaxis VTE/DVT Device ordered at admit?: Yes
[2021-10-31 12:56] LABS: B. PARAPERTUSSIS- RESP PCR PAN NOT DETECTED; B. PERTUSSIS- RESP PCR PANEL NOT DETECTED; C. PNEUMONIAE- RESP PCR PANEL NOT DETECTED; CORONAVIRUS 229E-RESP PCR NOT DETECTED; CORONAVIRUS HKU1-RESP PCR NOT DETECTED; CORONAVIRUS NL63-RESP PCR NOT DETECTED; CORONAVIRUS OC43-RESP PCR NOT DETECTED; HUMAN METAPNEUMOVIRUS NOT DETECTED; INFLUENZA A- RESP PCR PANEL NOT DETECTED; INFLUENZA B - RESP PCR PANEL NOT DETECTED; M. PNEUMONIAE- RESP PCR PANEL NOT DETECTED; PARAINFLUENZA VIRUS 1 NOT DETECTED; PARAINFLUENZA VIRUS 2 NOT DETECTED; PARAINFLUENZA VIRUS 3 NOT DETECTED; PARAINFLUENZA VIRUS 4 NOT DETECTED; RHINOVIRUS/ENTEROVIRUS NOT DETECTED; RSV- RESP PCR PANEL NOT DETECTED; SARS-CoV-2 -RESP PCR PANEL NOT DETECTED
[2021-10-31] MEDS: cefTRIAXone 1 GM in SODIUM CHLORIDE 0.9% MINIBAG 100 ML IV SCH (13:02)
[2021-10-31] MEDS: SODIUM CHLORIDE FLUSH 0.9% 10 ML SYRINGE IVP SCH (13:02)
[2021-10-31] MEDS: SODIUM CHLORIDE 0.9% 1,000 ML IV SCH ×2 (13:02→21:07)
--- NOTE | 2021-10-31 18:18 | PHARMACY PROGRESS NOTE ---
- Best Possible Medication History Admit Date and Time: 10/31/21 1202 Processed by: Pharmacy Medication History completed: Yes Patient Interview: Pt unable to participate Secondary Source(s): Physician records, Insurance records, Previous admit rec ords As the person ultimately responsible for medication therapy, providers are able to order a medication from an existing home medication list in [facility] via the "Reconcile Routine" prior to Confirmation of that medication by business support liaison. Such practice is discouraged except when the physician, in their clinical judgment, deems that a medical need exists for a medication without regard to previous use.
[2021-11-01] MEDS: SODIUM CHLORIDE FLUSH 0.9% 10 ML SYRINGE IVP SCH ×3 (01:38→17:45)
[2021-11-01] MEDS: SODIUM CHLORIDE 0.9% 1,000 ML IV SCH ×2 (04:57→11:54)
[2021-11-01 06:05] LABS: BASOPHILS # (AUTO) 0.1 10^3/uL (0.0-0.1); BASOPHILS % (AUTO) 0.7 %; HCT - HEMATOCRIT 33.6 % (37.0-47.0); LYMPHOCYTES # (AUTO) 2.6 10^3/uL (1.5-3.5); LYMPHOCYTES % (AUTO) 24.1 %; MEAN CORPUSCULAR HEMOGLOBIN 29.7 pg (27.0-31.0); MEAN CORPUSCULAR HGB CONC 32.7 g/dL (32.0-36.0); MEAN CORPUSCULAR VOLUME 90.8 fL (81.0-99.0); MEAN PLATELET VOLUME 10.7 fL (7.9-10.8); MONOCYTES # (AUTO) 0.8 10^3/uL (0.0-1.0); MONOCYTES % (AUTO) 7.5 %; NEUTROPHILS # (AUTO) 7.3 10^3/uL (1.5-6.6); NEUTROPHILS % (AUTO) 67.5 %; PLT - PLATELET COUNT 283 10^3/uL (130-450); RED CELL DISTRIBUTION WIDTH 13.9 % (12.0-15.0); WHITE BLOOD COUNT 10.8 x10^3/uL (4.8-10.8)
[2021-11-01 06:13] LABS: CALCIUM 8.5 mg/dL (8.5-10.3); CREATININE 1.1 mg/dL (0.4-1.0); POTASSIUM 3.2 mmol/L (3.5-5.0)
--- NOTE | 2021-11-01 08:51 | PROVIDER PROGRESS NOTE ---
Assessment/Plan - Problem List (1) Acute encephalopathy Assessment/Plan: Improved/Resolved Secondary to UTI and dehydration. Patient is on Rocephin 1 g IV daily. Blood and urine cultures pending. Normal saline at 125 mL/h discontinued on 11/01/21. (2) UTI (urinary tract infection) Qualifiers: Urinary tract infection type: acute cystitis Hematuria presence: without hematuria Qualified Code(s): N30.00 - Acute cystitis without hematuria Assessment/Plan: Improved/ Resolved WBC improved from 15 to 10.8 Urine culture growing gram negative rods. Awaiting identification and sensitivity Continue Rocephin 1g IV daily (3) KJ (acute kidney injury) Assessment/Plan: Improved Secondary to dehydration and UTI. Creatinine improved from 2.5 to 1.1 Normal saline discontinued on 11/01/21 (4) HTN (hypertension) Assessment/Plan: On metoprolol succinate 6.25 mg p.o. daily. (5) Hyperlipidemia Assessment/Plan: Atorvastatin 40 mg p.o. every afternoon. (6) Hypothyroidism Assessment/Plan: TSH was 2.92. On Synthroid 50 mcg p.o. daily AC. (7) Seizure disorder Assessment/Plan: Keppra 500 mg p.o. twice daily. (8) Hypokalemia Assessment/Plan: Potassium was 3.2 40 mEq of KCl given Will check BMP and Mg in the morning. - Current Meds Current Meds: Current Medications Generic Name Dose Route Start Last Admin Trade Name Freq PRN Reason Stop Dose Admin Sodium Chloride 1,000 mls @ 125 mls/hr 10/31/21 13:00 11/01/21 04:57 Normal Saline 0.9% IV 125 mls/hr .Q8H JIN Administration Ceftriaxone Sodium 1 gm/ 100 mls @ 200 mls/hr 10/31/21 13:00 10/31/21 13:35 Sodium Chloride IV Infused DAILY JIN Infusion Sodium Chloride 10 ml 10/31/21 17:00 11/01/21 01:38 Sodium Chloride Flush 0.9% 10 Ml Syringe IVP Not Given 0100,0900,1700 JIN - Lab Result Fish Bone Diagrams: 11/01/21 05:37 11/01/21 05:37 - Additional Planning My Orders: My Active Orders 10/31/21 Lunch Regular Diet [DIET] 10/31/21 12:02 Activity Orders [RC] Q2HR IO [RC] IOSHIFT Initiate Bowel Care Protocol [RC] .protocol Initiate Flu Vaccine Screening [RC] ONCE Initiate Line Care Protocol [RC] QSHIFT Initiate Personal Care Protoco [RC] .protocol Initiate Pneumonia Vaccine Scr [RC] ONCE Oxygen Therapy [RC] .PRN Telemetry- [RC] Q4HR Vital Signs [RC] Q4HR Acetaminophen [Tylenol] 650 mg PO Q4HR PRN Ondansetron Inj [Zofran Inj] 4 mg IVP Q6HR PRN Sodium Chloride Flush 0.9% [Normal Saline Flush 0.9%] 10 ml IVP PRN PRN Code Status [OTHERS] Routine Condition of Patient [OTHERS] Routine DVT Prophylaxis [OTHERS] Routine 10/31/21 12:04 SCDs [RC] QSHIFT 10/31/21 13:00 Sodium Chloride 0.9% [Normal Saline 0.9%] 1,000 ml IV 125 mls/hr cefTRIAXone [Rocephin] 1 gm Sodium Chloride 0.9% Minibag [Normal Saline 0.9% Minibag] 100 ml IV DAILY 10/31/21 17:00 Sodium Chloride Flush 0.9% [Normal Saline Flush 0.9%] 10 ml IVP 0100,0900,1700 11/02/21 05:00 BMP - BASIC METABOLIC PANEL [CHEM] DAILYLAB CBC - COMP BLD CT W/AUTO DIFF [HEME] DAILYLAB 11/03/21 05:00 BMP - BASIC METABOLIC PANEL [CHEM] DAILYLAB CBC - COMP BLD CT W/AUTO DIFF [HEME] DAILYLAB 11/04/21 05:00 BMP - BASIC METABOLIC PANEL [CHEM] DAILYLAB CBC - COMP BLD CT W/AUTO DIFF [HEME] DAILYLAB 11/05/21 05:00 BMP - BASIC METABOLIC PANEL [CHEM] DAILYLAB CBC - COMP BLD CT W/AUTO DIFF [HEME] DAILYLAB Subjective - Subjective Patient Reports: Other (Patient was awake alert and oriented x3 today. She denies any significant complaint.) Objective Vital Signs: Vital Signs - 24 hr 10/31/21 10/31/21 10/31/21 09:22 09:55 10:27 Temperature 37.0 C Heart Rate 75 86 75 Heart Rate [ Brachial] Respiratory 18 21 14 Rate Blood Pressure 102/75 116/79 99/64 Blood Pressure [Brachial artery] O2 Saturation 94 96 95 10/31/21 10/31/21 10/31/21 11:00 11:26 11:57 Temperature 97.6 C H Heart Rate 64 65 66 Heart Rate [ Brachial] Respiratory 12 12 16 Rate Blood Pressure 87/57 L 139/109 H 109/98 H Blood Pressure [Brachial artery] O2 Saturation 96 100 98 10/31/21 10/31/21 10/31/21 12:20 12:52 15:56 Temperature 36 C L 37.1 C Heart Rate 71 Heart Rate [ 63 81 Brachial] Respiratory 25 H 18 17 Rate Blood Pressure 153/95 H Blood Pressure 117/86 H 96/83 H [Brachial artery] O2 Saturation 98 93 97 10/31/21 11/01/21 11/01/21 20:52 01:00 04:59 Temperature 36.9 C 36.5 C 36.8 C Heart Rate Heart Rate [ 91 82 78 Brachial] Respiratory 20 18 16 Rate Blood Pressure Blood Pressure 101/64 116/66 114/56 L [Brachial artery] O2 Saturation 96 93 96 11/01/21 07:53 Temperature 36.8 C Heart Rate Heart Rate [ 74 Brachial] Respiratory 18 Rate Blood Pressure Blood Pressure 123/64 [Brachial artery] O2 Saturation 94 Oxygen O2 Source [With Activity] Room air O2 Source [Without Activity] Room air O2 Source Room air I&O (Last 24 Hrs): Intake and Output Totals x24h 10/30/21 10/31/21 11/01/21 23:59 23:59 23:59 Intake Total 3220 979.167 Output Total 500 Balance 3220 479.167 General: Alert, Oriented x3, Mild distress HEENT: PERRLA, EOMI Neck: Supple, No JVD Neuro: Alert, Non Focal, Oriented Times 3 Cardiovascular: Regular rate, Normal S1, Normal S2 Respiratory: Chest non-tender, No respiratory distress, Breath sounds nml Abdomen: Normal bowel sounds, Soft, No tenderness Extremities: No clubbing, No edema, No tenderness/swelling Skin: No rashes, No breakdown, No significant lesion - Results Results: Laboratory Results WBC 10.8 x10^3/uL (4.8-10.8) 11/01/21 05:37 RBC 3.70 10^6/uL (4.20-5.40) L 11/01/21 05:37 Hgb 11.0 g/dL (12.0-16.0) L 11/01/21 05:37 Hct 33.6 % (37.0-47.0) L 11/01/21 05:37 MCV 90.8 fL (81.0-99.0) 11/01/21 05:37 MCH 29.7 pg (27.0-31.0) 11/01/21 05:37 MCHC 32.7 g/dL (32.0-36.0) 11/01/21 05:37 RDW 13.9 % (12.0-15.0) 11/01/21 05:37 Plt Count 283 10^3/uL (130-450) 11/01/21 05:37 MPV 10.7 fL (7.9-10.8) 11/01/21 05:37 Neut # (Auto) 7.3 10^3/uL (1.5-6.6) H 11/01/21 05:37 Lymph # (Auto) 2.6 10^3/uL (1.5-3.5) 11/01/21 05:37 [place] # (Auto) 0.8 10^3/uL (0.0-1.0) 11/01/21 05:37 Eos # (Auto) 0.0 10^3/uL (0.0-0.7) 11/01/21 05:37 Baso # (Auto) 0.1 10^3/uL (0.0-0.1) 11/01/21 05:37 Absolute Nucleated RBC 0.00 x10^3/uL 11/01/21 05:37 Nucleated RBC % 0.0 /100WBC 11/01/21 05:37 Sodium 146 mmol/L (135-145) H 11/01/21 05:37 Potassium 3.2 mmol/L (3.5-5.0) L 11/01/21 05:37 Chloride 111 mmol/L (101-111) 11/01/21 05:37 Carbon Dioxide 24 mmol/L (21-32) 11/01/21 05:37 Anion Gap 11.0 (6-13) 11/01/21 05:37 BUN 22 mg/dL (6-20) H 11/01/21 05:37 Creatinine 1.1 mg/dL (0.4-1.0) H 11/01/21 05:37 Estimated GFR (MDRD) 50 (>89) L 11/01/21 05:37 Glucose 91 mg/dL (70-100) 11/01/21 05:37 Lactic Acid 1.8 mmol/L (0.5-2.2) 10/31/21 11:54 Calcium 8.5 mg/dL (8.5-10.3) 11/01/21 05:37 Total Bilirubin 0.3 mg/dL (0.2-1.0) 10/31/21 09:33 AST 24 IU/L (10-42) 10/31/21 09:33 ALT 27 IU/L (10-60) 10/31/21 09:33 Alkaline Phosphatase 112 IU/L (42-121) 10/31/21 09:33 Total Creatine Kinase 222 IU/L (22-269) 10/31/21 09:33 Total Protein 8.5 g/dL (6.7-8.2) H 10/31/21 09:33 Albumin 4.2 g/dL (3.2-5.5) 10/31/21 09:33 Globulin 4.3 g/dL (2.1-4.2) H 10/31/21 09:33 Albumin/Globulin Ratio 1.0 (1.0-2.2) 10/31/21 09:33 Lipase 61 U/L (22-51) H 10/31/21 09:33 TSH 2.92 uIU/mL (0.34-5.60) 10/31/21 09:33 Urine Color YELLOW 10/31/21 09:50 Urine Clarity HAZY (CLEAR) 10/31/21 09:50 Urine pH 6.0 PH (5.0-7.5) 10/31/21 09:50 Ur Specific [place] 1.025 (1.002-1.030) 10/31/21 09:50 Urine Protein TRACE mg/dL (NEGATIVE) 10/31/21 09:50 Urine Glucose (UA) NEGATIVE mg/dL (NEGATIVE) 10/31/21 09:50 Urine Ketones NEGATIVE mg/dL (NEGATIVE) 10/31/21 09:50 Urine Occult Blood NEGATIVE (NEGATIVE) 10/31/21 09:50 Urine Nitrite NEGATIVE (NEGATIVE) 10/31/21 09:50 Urine Bilirubin NEGATIVE (NEGATIVE) 10/31/21 09:50 Urine Urobilinogen 0.2 (NORMAL) E.U./dL (NORMAL) 10/31/21 09:50 Ur Leukocyte Esterase SMALL (NEGATIVE) H 10/31/21 09:50 Urine RBC 0-5 /HPF (0-5) 10/31/21 09:50 Urine WBC >25 /HPF (0-5) H 10/31/21 09:50 Urine WBC Clumps PRESENT 10/31/21 09:50 Ur Squamous Epith Cells FEW Squamous (<= Few) 10/31/21 09:50 Urine Bacteria Moderate /HPF (None Seen) H 10/31/21 09:50 Ur Microscopic Review INDICATED 10/31/21 09:50 Urine Culture Comments INDICATED 10/31/21 09:50 Nasal Adenovirus (PCR) NOT DETECTED 10/31/21 11:50 Nasal B. parapertussis DNA (PCR) NOT DETECTED 10/31/21 11:50 Nasal Coronavir 229E PCR NOT DETECTED 10/31/21 11:50 Nasal Coronavir HKU1 PCR NOT DETECTED 10/31/21 11:50 Nasal Coronavir NL63 PCR NOT DETECTED 10/31/21 11:50 Nasal Coronavir OC43 PCR NOT DETECTED 10/31/21 11:50 Nasal Enterovir/Rhinovir PCR NOT DETECTED 10/31/21 11:50 Nasal Influenza B PCR NOT DETECTED 10/31/21 11:50 Nasal Influenza A PCR NOT DETECTED 10/31/21 11:50 Nasal Parainfluen 1 PCR NOT DETECTED 10/31/21 11:50 Nasal Parainfluen 2 PCR NOT DETECTED 10/31/21 11:50 Nasal Parainfluen 3 PCR NOT DETECTED 10/31/21 11:50 Nasal Parainfluen 4 PCR NOT DETECTED 10/31/21 11:50 Nasal RSV (PCR) NOT DETECTED 10/31/21 11:50 Nasal B.pertussis DNA PCR NOT DETECTED 10/31/21 11:50 Nasal C.pneumoniae (PCR) NOT DETECTED 10/31/21 11:50 Jaya Human Metapneumo PCR NOT DETECTED 10/31/21 11:50 Nasal M.pneumoniae (PCR) NOT DETECTED 10/31/21 11:50 Nasal SARS-CoV-2 (PCR) NOT DETECTED 10/31/21 11:50 Urine Opiates Screen NEGATIVE (NEGATIVE) 10/31/21 09:50 Ur Oxycodone Screen NEGATIVE (NEGATIVE) 10/31/21 09:50 Urine Methadone Screen NEGATIVE (NEGATIVE) 10/31/21 09:50 Ur Propoxyphene Screen NEGATIVE (NEGATIVE) 10/31/21 09:50 Ur Barbiturates Screen NEGATIVE (NEGATIVE) 10/31/21 09:50 Ur Tricyclics Screen NEGATIVE (NEGATIVE) 10/31/21 09:50 Ur Phencyclidine Scrn NEGATIVE (NEGATIVE) 10/31/21 09:50 Ur Amphetamine Screen NEGATIVE (NEGATIVE) 10/31/21 09:50 U Methamphetamines Scrn NEGATIVE (NEGATIVE) 10/31/21 09:50 U Benzodiazepines Scrn NEGATIVE (NEGATIVE) 10/31/21 09:50 Urine Cocaine Screen NEGATIVE (NEGATIVE) 10/31/21 09:50 U Cannabinoids Screen NEGATIVE (NEGATIVE) 10/31/21 09:50 Ethyl Alcohol < 5.0 mg/dL 10/31/21 09:50 ABX Reporting Has patient been on IV antibiotics over the past 48 hours?: Yes
[2021-11-01] MEDS: cefTRIAXone 1 GM in SODIUM CHLORIDE 0.9% MINIBAG 100 ML IV SCH (09:01)
[2021-11-01] MEDS: ACETAMINOPHEN 325 MG TABLET PO PRN ×3 (09:12→22:51)
[2021-11-01] MEDS: ZINC OXIDE 20% OINT 30 GM TUBE TOP PRN (11:55)
[2021-11-01] MEDS ORDERED: POTASSIUM CHLORIDE 20 MEQ TABLET PO ONE (12:39)
[2021-11-02] MEDS: SODIUM CHLORIDE FLUSH 0.9% 10 ML SYRINGE IVP SCH ×3 (00:45→17:00)
[2021-11-02 05:43] LABS: BASOPHILS # (AUTO) 0.1 10^3/uL (0.0-0.1); HCT - HEMATOCRIT 33.9 % (37.0-47.0); HGB - HEMOGLOBIN 11.1 g/dL (12.0-16.0); LYMPHOCYTES # (AUTO) 2.8 10^3/uL (1.5-3.5); LYMPHOCYTES % (AUTO) 29.6 %; MEAN CORPUSCULAR HEMOGLOBIN 29.5 pg (27.0-31.0); MEAN CORPUSCULAR HGB CONC 32.7 g/dL (32.0-36.0); MEAN CORPUSCULAR VOLUME 90.2 fL (81.0-99.0); MEAN PLATELET VOLUME 10.6 fL (7.9-10.8); MONOCYTES # (AUTO) 0.7 10^3/uL (0.0-1.0); MONOCYTES % (AUTO) 7.4 %; NEUTROPHILS # (AUTO) 5.9 10^3/uL (1.5-6.6); NEUTROPHILS % (AUTO) 61.8 %; PLT - PLATELET COUNT 293 10^3/uL (130-450); RED BLOOD COUNT 3.76 10^6/uL (4.20-5.40); RED CELL DISTRIBUTION WIDTH 14.1 % (12.0-15.0); WHITE BLOOD COUNT 9.6 x10^3/uL (4.8-10.8)
[2021-11-02 05:54] LABS: POTASSIUM 3.5 mmol/L (3.5-5.0)
[2021-11-02] MEDS: ACETAMINOPHEN 325 MG TABLET PO PRN ×2 (06:47→20:47)
[2021-11-02] MEDS: ZINC OXIDE 20% OINT 30 GM TUBE TOP PRN (06:50)
--- NOTE | 2021-11-02 08:23 | PROVIDER PROGRESS NOTE ---
Assessment/Plan - Problem List (1) Acute encephalopathy Assessment/Plan: Resolved Secondary to UTI and dehydration. E. coli grew in urine cultures. Patient placed on Macrobid 100 mg p.o. twice daily. Rocephin discontinued 11/02/2021. Normal saline at 125 mL/h discontinued on 11/01/21. (2) UTI (urinary tract infection) Qualifiers: Urinary tract infection type: acute cystitis Hematuria presence: without hematuria Qualified Code(s): N30.00 - Acute cystitis without hematuria Assessment/Plan: Improved/resolved. WBC 9.6. Urine culture grew E. coli which was resistant to Rocephin. Rocephin discontinued. Patient placed on Macrobid 100 mg p.o. twice daily. (3) KJ (acute kidney injury) Assessment/Plan: Resolved Secondary to dehydration and UTI. Creatinine is 1.0 with eGFR of 56 Normal saline discontinued on 11/01/21 (4) HTN (hypertension) Assessment/Plan: On metoprolol succinate 6.25 mg p.o. daily. (5) Hyperlipidemia Assessment/Plan: Atorvastatin 40 mg p.o. every afternoon. (6) Hypothyroidism Assessment/Plan: TSH was 2.92. On Synthroid 50 mcg p.o. daily AC. (7) Seizure disorder Assessment/Plan: Keppra 500 mg p.o. twice daily. (8) Hypokalemia Assessment/Plan: Resolved Potassium is 3.5 - Current Meds Current Meds: Current Medications Generic Name Dose Route Start Last Admin Trade Name Freq PRN Reason Stop Dose Admin Acetaminophen 650 mg 10/31/21 12:02 11/02/21 06:47 Acetaminophen 325 Mg Tablet PO 650 mg Q4HR PRN Administration Pain 1 to 4, or Fever Multi-Ingredient Ointment 1 applic 11/01/21 11:11 11/02/21 06:50 Zinc Oxide 20% Oint 30 Gm Tube TOP 1 applic PRN PRN Administration Skin Care Sodium Chloride 10 ml 10/31/21 17:00 11/02/21 00:45 Sodium Chloride Flush 0.9% 10 Ml Syringe IVP 10 ml 0100,0900,1700 JIN Administration - Lab Result Fish Bone Diagrams: 11/02/21 05:03 11/02/21 05:03 - Additional Planning My Orders: My Active Orders 11/01/21 10:00 Evaluate and Treat OT [OT] Routine Evaluate and Treat PT [PT] Routine 11/01/21 11:11 Zinc Oxide 20% Oint [Zinc Oxide] 1 applic TOP PRN PRN 11/02/21 05:00 VITAMIN B12 [IAI] Routine 11/02/21 09:00 Nitrofurantoin [Macrobid] 100 mg PO BID 11/03/21 05:00 BMP - BASIC METABOLIC PANEL [CHEM] DAILYLAB CBC - COMP BLD CT W/AUTO DIFF [HEME] DAILYLAB 11/04/21 05:00 BMP - BASIC METABOLIC PANEL [CHEM] DAILYLAB CBC - COMP BLD CT W/AUTO DIFF [HEME] DAILYLAB 11/05/21 05:00 BMP - BASIC METABOLIC PANEL [CHEM] DAILYLAB CBC - COMP BLD CT W/AUTO DIFF [HEME] DAILYLAB Subjective - Subjective Patient Reports: Other (Patient is very alert awake and oriented x4 today. She was resting comfortably in the bedside recliner.) Objective Vital Signs: Vital Signs - 24 hr 11/01/21 11/01/21 11/01/21 11:28 15:58 20:53 Temperature 36.9 C 37.0 C 36.9 C Heart Rate [ 73 74 77 Brachial] Respiratory 18 18 18 Rate Blood Pressure 101/59 L 107/59 L 109/54 L [Brachial artery] O2 Saturation 94 95 94 11/02/21 11/02/21 11/02/21 00:43 04:10 08:17 Temperature 36.4 C L 36.5 C 36.2 C L Heart Rate [ 76 76 77 Brachial] Respiratory 17 16 20 Rate Blood Pressure 127/75 129/67 123/59 L [Brachial artery] O2 Saturation 94 92 Oxygen O2 Source [With Activity] Room air O2 Source [Without Activity] Room air O2 Source Room air I&O (Last 24 Hrs): Intake and Output Totals x24h 10/31/21 11/01/21 11/02/21 23:59 23:59 23:59 Intake Total 3220 3337.917 120 Output Total 925 200 Balance 3220 2412.917 -80 Comments/Notes: General: Alert, Oriented x3, Mild distress HEENT: PERRLA, EOMI Neck: Supple, No JVD Neuro: Alert, Non Focal, Oriented Times 3 Cardiovascular: Regular rate, Normal S1, Normal S2 Respiratory: Chest non-tender, No respiratory distress, Breath sounds nml Abdomen: Normal bowel sounds, Soft, No tenderness Extremities: No clubbing, No edema, No tenderness/swelling Skin: No rashes, No breakdown, No significant lesion - Results Results: Laboratory Results WBC 9.6 x10^3/uL (4.8-10.8) 11/02/21 05:03 RBC 3.76 10^6/uL (4.20-5.40) L 11/02/21 05:03 Hgb 11.1 g/dL (12.0-16.0) L 11/02/21 05:03 Hct 33.9 % (37.0-47.0) L 11/02/21 05:03 MCV 90.2 fL (81.0-99.0) 11/02/21 05:03 MCH 29.5 pg (27.0-31.0) 11/02/21 05:03 MCHC 32.7 g/dL (32.0-36.0) 11/02/21 05:03 RDW 14.1 % (12.0-15.0) 11/02/21 05:03 Plt Count 293 10^3/uL (130-450) 11/02/21 05:03 MPV 10.6 fL (7.9-10.8) 11/02/21 05:03 Neut # (Auto) 5.9 10^3/uL (1.5-6.6) 11/02/21 05:03 Lymph # (Auto) 2.8 10^3/uL (1.5-3.5) 11/02/21 05:03 [place] # (Auto) 0.7 10^3/uL (0.0-1.0) 11/02/21 05:03 Eos # (Auto) 0.0 10^3/uL (0.0-0.7) 11/02/21 05:03 Baso # (Auto) 0.1 10^3/uL (0.0-0.1) 11/02/21 05:03 Absolute Nucleated RBC 0.00 x10^3/uL 11/02/21 05:03 Nucleated RBC % 0.0 /100WBC 11/02/21 05:03 Sodium 145 mmol/L (135-145) 11/02/21 05:03 Potassium 3.5 mmol/L (3.5-5.0) 11/02/21 05:03 Chloride 113 mmol/L (101-111) H 11/02/21 05:03 Carbon Dioxide 24 mmol/L (21-32) 11/02/21 05:03 Anion Gap 8.0 (6-13) 11/02/21 05:03 BUN 19 mg/dL (6-20) 11/02/21 05:03 Creatinine 1.0 mg/dL (0.4-1.0) 11/02/21 05:03 Estimated GFR (MDRD) 56 (>89) L 11/02/21 05:03 Glucose 99 mg/dL (70-100) 11/02/21 05:03 Lactic Acid 1.8 mmol/L (0.5-2.2) 10/31/21 11:54 Calcium 9.0 mg/dL (8.5-10.3) 11/02/21 05:03 Magnesium 2.0 mg/dL (1.7-2.8) 11/02/21 05:03 Total Bilirubin 0.3 mg/dL (0.2-1.0) 10/31/21 09:33 AST 24 IU/L (10-42) 10/31/21 09:33 ALT 27 IU/L (10-60) 10/31/21 09:33 Alkaline Phosphatase 112 IU/L (42-121) 10/31/21 09:33 Total Creatine Kinase 222 IU/L (22-269) 10/31/21 09:33 Total Protein 8.5 g/dL (6.7-8.2) H 10/31/21 09:33 Albumin 4.2 g/dL (3.2-5.5) 10/31/21 09:33 Globulin 4.3 g/dL (2.1-4.2) H 10/31/21 09:33 Albumin/Globulin Ratio 1.0 (1.0-2.2) 10/31/21 09:33 Lipase 61 U/L (22-51) H 10/31/21 09:33 TSH 2.92 uIU/mL (0.34-5.60) 10/31/21 09:33 Urine Color YELLOW 10/31/21 09:50 Urine Clarity HAZY (CLEAR) 10/31/21 09:50 Urine pH 6.0 PH (5.0-7.5) 10/31/21 09:50 Ur Specific [place] 1.025 (1.002-1.030) 10/31/21 09:50 Urine Protein TRACE mg/dL (NEGATIVE) 10/31/21 09:50 Urine Glucose (UA) NEGATIVE mg/dL (NEGATIVE) 10/31/21 09:50 Urine Ketones NEGATIVE mg/dL (NEGATIVE) 10/31/21 09:50 Urine Occult Blood NEGATIVE (NEGATIVE) 10/31/21 09:50 Urine Nitrite NEGATIVE (NEGATIVE) 10/31/21 09:50 Urine Bilirubin NEGATIVE (NEGATIVE) 10/31/21 09:50 Urine Urobilinogen 0.2 (NORMAL) E.U./dL (NORMAL) 10/31/21 09:50 Ur Leukocyte Esterase SMALL (NEGATIVE) H 10/31/21 09:50 Urine RBC 0-5 /HPF (0-5) 10/31/21 09:50 Urine WBC >25 /HPF (0-5) H 10/31/21 09:50 Urine WBC Clumps PRESENT 10/31/21 09:50 Ur Squamous Epith Cells FEW Squamous (<= Few) 10/31/21 09:50 Urine Bacteria Moderate /HPF (None Seen) H 10/31/21 09:50 Ur Microscopic Review INDICATED 10/31/21 09:50 Urine Culture Comments INDICATED 10/31/21 09:50 Nasal Adenovirus (PCR) NOT DETECTED 10/31/21 11:50 Nasal B. parapertussis DNA (PCR) NOT DETECTED 10/31/21 11:50 Nasal Coronavir 229E PCR NOT DETECTED 10/31/21 11:50 Nasal Coronavir HKU1 PCR NOT DETECTED 10/31/21 11:50 Nasal Coronavir NL63 PCR NOT DETECTED 10/31/21 11:50 Nasal Coronavir OC43 PCR NOT DETECTED 10/31/21 11:50 Nasal Enterovir/Rhinovir PCR NOT DETECTED 10/31/21 11:50 Nasal Influenza B PCR NOT DETECTED 10/31/21 11:50 Nasal Influenza A PCR NOT DETECTED 10/31/21 11:50 Nasal Parainfluen 1 PCR NOT DETECTED 10/31/21 11:50 Nasal Parainfluen 2 PCR NOT DETECTED 10/31/21 11:50 Nasal Parainfluen 3 PCR NOT DETECTED 10/31/21 11:50 Nasal Parainfluen 4 PCR NOT DETECTED 10/31/21 11:50 Nasal RSV (PCR) NOT DETECTED 10/31/21 11:50 Nasal B.pertussis DNA PCR NOT DETECTED 10/31/21 11:50 Nasal C.pneumoniae (PCR) NOT DETECTED 10/31/21 11:50 Jaya Human Metapneumo PCR NOT DETECTED 10/31/21 11:50 Nasal M.pneumoniae (PCR) NOT DETECTED 10/31/21 11:50 Nasal SARS-CoV-2 (PCR) NOT DETECTED 10/31/21 11:50 Urine Opiates Screen NEGATIVE (NEGATIVE) 10/31/21 09:50 Ur Oxycodone Screen NEGATIVE (NEGATIVE) 10/31/21 09:50 Urine Methadone Screen NEGATIVE (NEGATIVE) 10/31/21 09:50 Ur Propoxyphene Screen NEGATIVE (NEGATIVE) 10/31/21 09:50 Ur Barbiturates Screen NEGATIVE (NEGATIVE) 10/31/21 09:50 Ur Tricyclics Screen NEGATIVE (NEGATIVE) 10/31/21 09:50 Ur Phencyclidine Scrn NEGATIVE (NEGATIVE) 10/31/21 09:50 Ur Amphetamine Screen NEGATIVE (NEGATIVE) 10/31/21 09:50 U Methamphetamines Scrn NEGATIVE (NEGATIVE) 10/31/21 09:50 U Benzodiazepines Scrn NEGATIVE (NEGATIVE) 10/31/21 09:50 Urine Cocaine Screen NEGATIVE (NEGATIVE) 10/31/21 09:50 U Cannabinoids Screen NEGATIVE (NEGATIVE) 10/31/21 09:50 Ethyl Alcohol < 5.0 mg/dL 10/31/21 09:50 ABX Reporting Has patient been on IV antibiotics over the past 48 hours?: No
[2021-11-02] MEDS: NITROFURANTOIN MACRO 100 MG CAPSULE PO SCH ×2 (08:53→20:47)
[2021-11-02] MEDS ORDERED: diphenhydrAMINE 25 MG CAPSULE PO PRN (19:50)
[2021-11-02] MEDS: BACLOFEN 10 MG TABLET PO SCH (20:47)
[2021-11-02] MEDS ORDERED: MORPHINE 2 MG/ML CARPUJECT IVP ONE (22:15)
--- NOTE | 2021-11-02 22:34 | XRAY Report ---
PROCEDURE: Chest 1 View X-Ray INDICATIONS: Sudden SOB, wheezing TECHNIQUE: One view of the chest was acquired. COMPARISON: 10/01/2021 FINDINGS: Surgical changes and devices: None. Lungs and pleura: There is diffuse pulmonary edema. There are bibasilar linear opacities likely repr esenting atelectasis. No pleural effusions or pneumothorax. Mediastinum: Mediastinal contours appear normal. Heart size is normal. Bones and chest wall: No suspicious bony lesions. Overlying soft tissues appear unremarkable. IMPRESSION: 1. Diffuse pulmonary edema which may be due to cardiogenic or noncardiogenic etiologies such as atypi carrie infection or inhalational exposures. 2. Linear bibasilar opacities likely represent atelectasis but may also reflect developing consolidat ion. Reviewed by: Tyrone Alarcon MD on 11/02/2021 10:32 PM PDT Approved by: Tyrone Alarcon MD on 11/02/2021 10:32 PM PDT Station ID: [id number]
[2021-11-02] MEDS ORDERED: FUROSEMIDE 20 MG/2 ML VIAL IVP STA (22:37)
[2021-11-02] MEDS ORDERED: IPRATROPIUM/ALBUTEROL 3 ML NEB INH ONE (22:37)
[2021-11-02 22:39] LABS: ABG BASE EXCESS -15.4 mmol/L (-2.0-3.0); ABG HCO3 14.8 mmol/L (22.0-26.0); ABG PCO2 53 mmHg (34-45); ABG PO2 60 mmHg (80-100); ABG TCO2 16.4 MMOL/L (21.0-29.0)
[2021-11-02 22:40] LABS: ALLEN TEST POSITIVE
[2021-11-02 22:42] LABS: ABG OXYGEN SATURATION 80 % (94-98); ABG PH 7.07 (7.35-7.45)
[2021-11-02] MEDS: ATORVASTATIN 40 MG TABLET PO SCH (22:50)
[2021-11-02] MEDS: levETIRAcetam 250 MG TABLET PO SCH (22:50)
--- NOTE | 2021-11-02 22:55 | PROVIDER PROGRESS NOTE ---
Car Stereo Installer Note - Car Stereo Installer Note Car Stereo Installer Note: At approximately 20:30 PM I could hear the patient grunting and entered her room. The patient was in severe respiratory distress, trying to sit up and forward, said she was panicking and did not want me to leave her room. Her respiratory rate was 40, she had audible wheezing across the room. BP 150/100, HR 130 and regular. She was diaphoretic. On auscultation she had bilateral rales up over 1/2 and scattered anterior wheezes. Heart sounds very distant and tachycardic. Morphine 2 mg iv STAT was given Stat ABG was done, breathing room air and showed pH 7.07, PCO2 52, PO2 60 with saturation 80%. The patient was placed on oxygen via rebreather mask by respiratory. STAT chest x-ray was done and showed pulmonary edema A STAT DuoNeb dose was ordered. Lasix 20 mg IV push was given. She had an EKG done which showed: Sinus tachycardia, RBBB, vertical axis, border line ST elevation lateral leads. A STAT troponin was done and was 55.8, BNP stat was 1050. Patient's chart was reviewed: The patient is a smoker, and claims she takes inhalers at home but there are none listed on her reconciled med list. The patient takes medications of metoprolol, lipitor, levothyroxine and Keppra at home, that have not been resumed yet. There is a history of AK but there is no aspirin on her med list. An Echo has never been done here to know her LVEF. Her prior EKGs show sinus rhythm and right bundle branch block. Imp: Acute respiratory failure with hypercapnia and hypoxia Flash Pulmonary edema (in a pt who is 7L (+) in fluid balance since admission COPD exacerbation Smoker Hx of CAD and prior AK Plan: All iv meds and fluids have already been stopped earlier today Continue supplemental O2 to achieve O2 sats of 88% or greater Give 4 baby aspirin now and start ASA 81 mg daily Resume metoprolol at a higher dose than 6.25 mg daily and resume her statin Obtain a 2-hour troponin if Pos for AK, add Nitropaste Resume Levothyroxine and her Keppra home doses Obtain an Echo Start Lasix iv Add low salt to her diet order Follow I's and O's and daily weights CRITICAL CARE TIME SPENT: 40 min (re-evaluating patient, chart and med review, new orders)
[2021-11-02] MEDS ORDERED: ASPIRIN CHEW 81 MG TABLET PO STA (22:59)
[2021-11-02] MEDS ORDERED: METOPROLOL SUCCINATE 25 MG TABLET PO SCH (23:00)
[2021-11-02] MEDS ORDERED: METOPROLOL TARTRATE 25 MG TABLET ONE (23:33)
[2021-11-03] MEDS: SODIUM CHLORIDE FLUSH 0.9% 10 ML SYRINGE IVP SCH ×4 (00:15→21:04)
[2021-11-03] MEDS ORDERED: FUROSEMIDE 20 MG/2 ML VIAL IVP SCH (06:00)
[2021-11-03 06:12] LABS: BASOPHILS % (AUTO) 0.2 %; CREATININE 1.3 mg/dL (0.4-1.0); HCT - HEMATOCRIT 37.2 % (37.0-47.0); LYMPHOCYTES % (AUTO) 5.6 %; MEAN CORPUSCULAR HEMOGLOBIN 29.1 pg (27.0-31.0); MEAN CORPUSCULAR HGB CONC 32.3 g/dL (32.0-36.0); MEAN CORPUSCULAR VOLUME 90.1 fL (81.0-99.0); MEAN PLATELET VOLUME 10.9 fL (7.9-10.8); MONOCYTES % (AUTO) 4.3 %; NEUTROPHILS % (AUTO) 89.4 %; PLT - PLATELET COUNT 313 10^3/uL (130-450); POTASSIUM 4.1 mmol/L (3.5-5.0); RED BLOOD COUNT 4.13 10^6/uL (4.20-5.40); RED CELL DISTRIBUTION WIDTH 14.1 % (12.0-15.0); WHITE BLOOD COUNT 20.8 x10^3/uL (4.8-10.8)
[2021-11-03 06:18] LABS: ABNORMAL LYMPHS % (MANUAL) 0 %
[2021-11-03 06:47] LABS: BAND NEUTROPHILS % (MANUAL) 13 %; DIFFERENTIAL COMMENT MANUAL DIFFERENTIAL; LYMPHOCYTES # (MANUAL) 0.8 10^3/uL (1.5-3.5); LYMPHOCYTES % (MANUAL) 4 %; MONOCYTES # (MANUAL) 1.2 10^3/uL (0.0-1.0); NEUTROPHILS # (MANUAL) 18.7 10^3/uL (1.5-6.6); PLATELET ESTIMATE, MANUAL NORMAL (130-450,000) (NORMAL); RBC MORPHOLOGY (MULTIPLE) NORMAL APPEARANCE (NORMAL)
[2021-11-03] MEDS ORDERED: LEVOTHYROXINE 25 MCG TABLET PO SCH (07:00)
--- NOTE | 2021-11-03 08:23 | PROVIDER PROGRESS NOTE ---
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 The Echo showed: Normal left atrial and right atrial sizes. Normal aortic root diameter with mural calcific atherosclerosis. Mitral annulus calcified, normal mitral valve mobility. Aortic valve has mild calcific sclerosis. Tricuspid and pulmonic valves poorly seen. Doppler of the valves showed moder-severe mitral regurgitation, normal aortic valve and tricuspid valve function. Left ventricle upper limit of normal in size with normal wall thickness. LV inferior wall thinned and akinetic. The septum, anterior wall and apex are severely hypokinetic, lateral wall mildly hypokinetic. LVEF 15 to 20%. Doppler shows (psudonormalization of E and A waves) indicating Grade 2 LV diastolic dysfunction present. Normal right ventricular size, probably normal RV function, this is less well seen. No pericardial effusion. 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
--- NOTE | 2021-11-03 08:28 | PROVIDER PROGRESS NOTE ---
Assessment/Plan - Problem List (1) Acute non-ST elevation myocardial infarction (NSTEMI) Assessment/Plan: The patient had grunting and acute respiratory failure last night, went to flash pulmonary edema and her troponins were cycled. They increased from 59 up to 258. Her EKG shows a chronic right bundle branch block and inferior Q waves but there were new possible lateral ST elevations but some leads also had lateral ST depressions. Given this acute NSTEMI (and the flash pulmonary edema last nighyt and hypotension today), an Echo was done today. The Echo showed inferior wall akinesis, Hsouvm-cxujrj-ghifhm severe hypokinesis and lateral wall mild hypokinesis, LVEF 15 to 20% with diastolic dysfunction (grade 2) present. We will continue daily aspirin, statin, beta-briseida. Because of her low blood pressure today, no Nitropaste can be started. Start Lovenox therapeutic b.i.d.dosing Follow trops to see where they peak We will plan for transfer for coronary angiogram. Her last angiogram was in 2019 at [facility] she says, but she no longer was following a food science professor there. (2) Cardiogenic shock Assessment/Plan: She is hypotensive since early this morning, with BP 84-90 systolic. This is likely a result of the medications used for her flash pulm edema and from her very low cardiac output, since she has ischemic cardiomyopathy seen on Echo, which was done today. Will put holding parameters on her B-briseida med but continue this. Will add BARAK, spironolactone and change to p.o. Lasix. Will stagger her meds We will cancel out of bed and cancel PT. Plan for transfer for coronary angiogram and cardiology management. (3) Flash pulmonary edema Assessment/Plan: The patient had flash pulmonary edema at 2030 yesterday. She responded well to a dose of IV morphine, Lasix IV and was given 4 baby aspirin and beta-briseida with the heart rate and blood pressure elevated. Today she is in no respiratory distress, but still has a wet cough, no wheezing is present. She is on PO2 via n.c. We will repeat a chest x-ray today, to assure that she did not have an infiltrate (which was suspected) as well and to check the CHF. Low blood pressure, will stop the IV twice daily Lasix but continue daily oral Lasix. Her diet was changed to a cardiac diet with low salt. Follow I's and O's and daily weights. (4) KJ (acute kidney injury) Assessment/Plan: Her creat has increased slt with the diuresis and low BP Avoid nephrotoxins Hold parameters on meds to prevent low BPs. Follow BMP daily (5) Acute respiratory failure with hypoxia Assessment/Plan: She has underlying COPD but had no improvement with nebs when she was wheezing last night. She probably had wheezing from her pulmonary edema. Will continue with supplemental oxygen to keep O2 saturations greater than 88%. Wean down supplemental O2 as tolerated. Will no longer zaire nue DuoNebs which were adding to her tremulousness and anxiety/panicky feeling, and could add to tachycardia. (6) Leukocytosis Assessment/Plan: This could be demargination from the stress of her acute WA but will recheck a chest x-ray to evaluate for an infiltrate which was suspected on the chest x-ray last night and she has a productive cough. She is on oral nitrofurantoin for the UTI, this may need to be switched to cover HCAP. (7) E. coli UTI Assessment/Plan: Her urine culture is growing an E. coli that is resistant to multiple antibiotics, thus she was changed to oral nitrofurantoin and after stopping empiric Rocephin. If an HCAP is suspected on chest x-ray, would potentially switch antibiotics to cefepime or ertapenem for covering both infections. (8) Acute encephalopathy Assessment/Plan: Resolved. Today I asked the patient if she knows that she has been in the ED 8 or more times when she is found confused on her property. She remembers none of these and did appear truly surprised. She denies any psychiatric diagnoses. She states she does have relapsing mul tiple sclerosis and has a Neurologist that follows her. She says she will tell the neurologist regarding this news. In the past UTIs and dehydration were also found at the time of her confusion which may have added to each of the events. (9) Seizure disorder Assessment/Plan: Home meds have been restarted (10) Hypothyroid Qualifiers: Hypothyroidism type: unspecified Qualified Code(s): E03.9 - Hypothyroidism, unspecified Assessment/Plan: Dwight was in a good range. Her home Levothyroid dose will be resumed starting today - Current Meds Current Meds: Current Medications Generic Name Dose Route Start Last Admin Trade Name Freq PRN Reason Stop Dose Admin Acetaminophen 650 mg 10/31/21 12:02 11/02/21 20:47 Acetaminophen 325 Mg Tablet PO 650 mg Q4HR PRN Administration Pain 1 to 4, or Fever Atorvastatin Calcium 40 mg 11/02/21 22:38 11/02/21 22:50 Atorvastatin 40 Mg Tablet PO 40 mg QPM JIN Administration Baclofen 10 mg 11/02/21 21:00 11/02/21 20:47 Baclofen 10 Mg Tablet PO 10 mg HS JIN Administration Levetiracetam 500 mg 11/02/21 23:00 11/02/21 22:50 Levetiracetam 250 Mg Tablet PO 500 mg BID JIN Administration Levothyroxine Sodium 50 mcg 11/03/21 07:00 11/03/21 07:00 Levothyroxine 25 Mcg Tablet PO 50 mcg QDAC JIN Administration Multi-Ingredient Ointment 1 applic 11/01/21 11:11 11/02/21 06:50 Zinc Oxide 20% Oint 30 Gm Tube TOP 1 applic PRN PRN Administration Skin Care Nitrofurantoin 100 mg 11/02/21 09:00 11/02/21 20:47 Nitrofurantoin Macro 100 Mg Capsule PO 100 mg BID JIN Administration Sodium Chloride 10 ml 10/31/21 12:02 11/02/21 22:50 Sodium Chloride Flush 0.9% 10 Ml Syringe IVP 10 ml PRN PRN Administration NEEDED PER PROVIDER ORDERS Sodium Chloride 10 ml 10/31/21 17:00 11/03/21 07:00 Sodium Chloride Flush 0.9% 10 Ml Syringe IVP 10 ml 0100,0900,1700 JIN Administration - Lab Result Fish Bone Diagrams: 11/03/21 05:45 11/03/21 05:45 - Diagnostic Imaging Results Diagnostic Imaging Results: Final report reviewed - Additional Planning Condition/Complexity: Unstable My Orders: My Active Orders 11/02/21 21:00 Baclofen [Lioresal] 10 mg PO HS 11/02/21 22:37 Nebulizer/MDI Tx. [RC] QID Resp Teach Nebulizer/MDI [RC] .ONCE 11/02/21 22:38 Atorvastatin [Lipitor] 40 mg PO QPM 11/02/21 23:00 levETIRAcetam [Keppra] 500 mg PO BID 11/02/21 23:07 Daily Weight [RC] 59911/03/21 Breakfast DIET [Low Sodium Diet] [DIET] 11/03/21 05:30 BNP - B-NATRIURETIC PEPTIDE [IAI] Urgent TROPONIN I HIGH SENSITIVITY [IAI] Urgent 11/03/21 07:00 Levothyroxine [Synthroid] 50 mcg PO QDAC 11/03/21 09:00 Aspirin Chewable [[place] Aspirin] 81 mg PO DAILY Furosemide [Lasix] 20 mg PO DAILY Metoprolol Succinate [Toprol Xl] 6.25 mg PO BID Spironolactone [Aldactone] 12.5 mg PO DAILY 11/03/21 12:00 lisinopriL [Zestril] 2.5 mg PO 1200 11/04/21 05:00 BNP - B-NATRIURETIC PEPTIDE [IAI] DAILYLAB Subjective - Subjective Patient Reports: Feeling Better, Cough (deep, wet cough with clear sputum production), Shortness of Breath Objective Vital Signs: Vital Signs - 24 hr 11/02/21 11/02/21 11/02/21 11:11 16:07 20:01 Temperature 36.7 C 36.9 C 36.9 C Heart Rate Heart Rate [ 77 79 90 Brachial] Respiratory 18 24 16 Rate Blood Pressure 130/68 140/80 H 176/80 H [Brachial artery] O2 Saturation 93 97 92 11/02/21 11/02/21 11/02/21 21:37 22:33 22:54 Temperature 36.5 C Heart Rate 149 H Heart Rate [ 102 H 108 H Brachial] Respiratory 40 H 30 H Rate Blood Pressure 139/77 H 151/96 H [Brachial artery] O2 Saturation 95 84 L 11/02/21 11/02/21 11/03/21 22:56 23:27 00:00 Temperature Heart Rate Heart Rate [ 149 H 149 H Brachial] Respiratory 30 H 36 H 22 Rate Blood Pressure 123/88 H 145/109 H [Brachial artery] O2 Saturation 87 L 90 L 92 11/03/21 11/03/21 11/03/21 00:34 06:30 07:20 Temperature 36.6 C 36.3 C L 36.4 C L Heart Rate Heart Rate [ 102 H 75 71 Brachial] Respiratory 20 18 20 Rate Blood Pressure 95/61 84/58 L 84/61 L [Brachial artery] O2 Saturation 95 97 97 Oxygen O2 Source [With Activity] Room air O2 Source [Without Activity] Room air O2 Source Oxymask I&O (Last 24 Hrs): Intake and Output Totals x24h 11/01/21 11/02/21 11/03/21 23:59 23:59 23:59 Intake Total 3337.917 1170 Output Total 925 750 200 Balance 2412.917 420 -200 General: Alert, Oriented x3, Other (pale, appears tires) HEENT: Mucous membr. moist/pink Neck: Supple, No JVD Neuro: Alert, Other (R foot drop (per pt, from MS)) Cardiovascular: Regular rate, No murmurs Respiratory: Rales (bilat 1/2 up) Abdomen: Normal bowel sounds, Soft Extremities: No clubbing, No edema - Results Results: Laboratory Results WBC 20.8 x10^3/uL (4.8-10.8) H 11/03/21 05:45 RBC 4.13 10^6/uL (4.20-5.40) L 11/03/21 05:45 Hgb 12.0 g/dL (12.0-16.0) 11/03/21 05:45 Hct 37.2 % (37.0-47.0) 11/03/21 05:45 MCV 90.1 fL (81.0-99.0) 11/03/21 05:45 MCH 29.1 pg (27.0-31.0) 11/03/21 05:45 MCHC 32.3 g/dL (32.0-36.0) 11/03/21 05:45 RDW 14.1 % (12.0-15.0) 11/03/21 05:45 Plt Count 313 10^3/uL (130-450) 11/03/21 05:45 MPV 10.9 fL (7.9-10.8) H 11/03/21 05:45 Neut # (Auto) Not Reportable 11/03/21 05:45 Lymph # (Auto) Not Reportable 11/03/21 05:45 [place] # (Auto) Not Reportable 11/03/21 05:45 Eos # (Auto) Not Reportable 11/03/21 05:45 Baso # (Auto) Not Reportable 11/03/21 05:45 Absolute Nucleated RBC Not Reportable 11/03/21 05:45 Total Counted 100 11/03/21 05:45 Band Neuts % (Manual) 13 % (0-10) H 11/03/21 05:45 Abnorm Lymph % (Manual) 0 % 11/03/21 05:45 Nucleated RBC % Not Reportable 11/03/21 05:45 Neutrophils # (Manual) 18.7 10^3/uL (1.5-6.6) H 11/03/21 05:45 Lymphocytes # (Manual) 0.8 10^3/uL (1.5-3.5) L 11/03/21 05:45 Monocytes # (Manual) 1.2 10^3/uL (0.0-1.0) H 11/03/21 05:45 Eosinophils # (Manual) 0.0 10^3/uL (0-0.7) 11/03/21 05:45 Basophils # (Manual) 0.0 10^3/uL (0-0.1) 11/03/21 05:45 Differential Comment MANUAL DIFFERENTIAL 11/03/21 05:45 Platelet Estimate NORMAL (130-450,000) (NORMAL) 11/03/21 05:45 RBC Morph Micro Appear NORMAL APPEARANCE (NORMAL) 11/03/21 05:45 Bld Gas Analysis Time 223711/02/21 22:38 Sample Site RIGHT RADIAL 11/02/21 22:38 ABG pH 7.07 (7.35-7.45) L* 11/02/21 22:38 ABG pCO2 53 mmHg (34-45) H 11/02/21 22:38 ABG pO2 60 mmHg (80-100) L 11/02/21 22:38 ABG HCO3 14.8 mmol/L (22.0-26.0) L 11/02/21 22:38 ABG Total CO2 16.4 MMOL/L (21.0-29.0) L 11/02/21 22:38 ABG O2 Saturation 80 % (94-98) L* 11/02/21 22:38 ABG Base Excess -15.4 mmol/L (-2.0-3.0) L 11/02/21 22:38 Abel Test POSITIVE 11/02/21 22:38 O2 Delivery Device NASAL CANNULA 11/02/21 22:38 FiO2 28.00 11/02/21 22:38 Sodium 139 mmol/L (135-145) 11/03/21 05:45 Potassium 4.1 mmol/L (3.5-5.0) 11/03/21 05:45 Chloride 107 mmol/L (101-111) 11/03/21 05:45 Carbon Dioxide 23 mmol/L (21-32) 11/03/21 05:45 Anion Gap 9.0 (6-13) 11/03/21 05:45 BUN 20 mg/dL (6-20) 11/03/21 05:45 Creatinine 1.3 mg/dL (0.4-1.0) H 11/03/21 05:45 Estimated GFR (MDRD) 41 (>89) L 11/03/21 05:45 Glucose 141 mg/dL (70-100) H 11/03/21 05:45 Lactic Acid 1.8 mmol/L (0.5-2.2) 10/31/21 11:54 Calcium 9.0 mg/dL (8.5-10.3) 11/03/21 05:45 Magnesium 2.0 mg/dL (1.7-2.8) 11/02/21 05:03 Total Bilirubin 0.3 mg/dL (0.2-1.0) 10/31/21 09:33 AST 24 IU/L (10-42) 10/31/21 09:33 ALT 27 IU/L (10-60) 10/31/21 09:33 Alkaline Phosphatase 112 IU/L (42-121) 10/31/21 09:33 Total Creatine Kinase 222 IU/L (22-269) 10/31/21 09:33 Troponin I High Sens 258.7 ng/L (2.3-14.8) H* 11/03/21 00:29 B-Natriuretic Peptide 1052 pg/mL (5-100) H 11/02/21 22:33 Total Protein 8.5 g/dL (6.7-8.2) H 10/31/21 09:33 Albumin 4.2 g/dL (3.2-5.5) 10/31/21 09:33 Globulin 4.3 g/dL (2.1-4.2) H 10/31/21 09:33 Albumin/Globulin Ratio 1.0 (1.0-2.2) 10/31/21 09:33 Lipase 61 U/L (22-51) H 10/31/21 09:33 Vitamin B12 205 pg/mL (180-914) 11/02/21 05:03 TSH 2.92 uIU/mL (0.34-5.60) 10/31/21 09:33 Urine Color YELLOW 10/31/21 09:50 Urine Clarity HAZY (CLEAR) 10/31/21 09:50 Urine pH 6.0 PH (5.0-7.5) 10/31/21 09:50 Ur Specific [place] 1.025 (1.002-1.030) 10/31/21 09:50 Urine Protein TRACE mg/dL (NEGATIVE) 10/31/21 09:50 Urine Glucose (UA) NEGATIVE mg/dL (NEGATIVE) 10/31/21 09:50 Urine Ketones NEGATIVE mg/dL (NEGATIVE) 10/31/21 09:50 Urine Occult Blood NEGATIVE (NEGATIVE) 10/31/21 09:50 Urine Nitrite NEGATIVE (NEGATIVE) 10/31/21 09:50 Urine Bilirubin NEGATIVE (NEGATIVE) 10/31/21 09:50 Urine Urobilinogen 0.2 (NORMAL) E.U./dL (NORMAL) 10/31/21 09:50 Ur Leukocyte Esterase SMALL (NEGATIVE) H 10/31/21 09:50 Urine RBC 0-5 /HPF (0-5) 10/31/21 09:50 Urine WBC >25 /HPF (0-5) H 10/31/21 09:50 Urine WBC Clumps PRESENT 10/31/21 09:50 Ur Squamous Epith Cells FEW Squamous (<= Few) 10/31/21 09:50 Urine Bacteria Moderate /HPF (None Seen) H 10/31/21 09:50 Ur Microscopic Review INDICATED 10/31/21 09:50 Urine Culture Comments INDICATED 10/31/21 09:50 Nasal Adenovirus (PCR) NOT DETECTED 10/31/21 11:50 Nasal B. parapertussis DNA (PCR) NOT DETECTED 10/31/21 11:50 Nasal Coronavir 229E PCR NOT DETECTED 10/31/21 11:50 Nasal Coronavir HKU1 PCR NOT DETECTED 10/31/21 11:50 Nasal Coronavir NL63 PCR NOT DETECTED 10/31/21 11:50 Nasal Coronavir OC43 PCR NOT DETECTED 10/31/21 11:50 Nasal Enterovir/Rhinovir PCR NOT DETECTED 10/31/21 11:50 Nasal Influenza B PCR NOT DETECTED 10/31/21 11:50 Nasal Influenza A PCR NOT DETECTED 10/31/21 11:50 Nasal Parainfluen 1 PCR NOT DETECTED 10/31/21 11:50 Nasal Parainfluen 2 PCR NOT DETECTED 10/31/21 11:50 Nasal Parainfluen 3 PCR NOT DETECTED 10/31/21 11:50 Nasal Parainfluen 4 PCR NOT DETECTED 10/31/21 11:50 Nasal RSV (PCR) NOT DETECTED 10/31/21 11:50 Nasal B.pertussis DNA PCR NOT DETECTED 10/31/21 11:50 Nasal C.pneumoniae (PCR) NOT DETECTED 10/31/21 11:50 Jaya Human Metapneumo PCR NOT DETECTED 10/31/21 11:50 Nasal M.pneumoniae (PCR) NOT DETECTED 10/31/21 11:50 Nasal SARS-CoV-2 (PCR) NOT DETECTED 10/31/21 11:50 Urine Opiates Screen NEGATIVE (NEGATIVE) 10/31/21 09:50 Ur Oxycodone Screen NEGATIVE (NEGATIVE) 10/31/21 09:50 Urine Methadone Screen NEGATIVE (NEGATIVE) 10/31/21 09:50 Ur Propoxyphene Screen NEGATIVE (NEGATIVE) 10/31/21 09:50 Ur Barbiturates Screen NEGATIVE (NEGATIVE) 10/31/21 09:50 Ur Tricyclics Screen NEGATIVE (NEGATIVE) 10/31/21 09:50 Ur Phencyclidine Scrn NEGATIVE (NEGATIVE) 10/31/21 09:50 Ur Amphetamine Screen NEGATIVE (NEGATIVE) 10/31/21 09:50 U Methamphetamines Scrn NEGATIVE (NEGATIVE) 10/31/21 09:50 U Benzodiazepines Scrn NEGATIVE (NEGATIVE) 10/31/21 09:50 Urine Cocaine Screen NEGATIVE (NEGATIVE) 10/31/21 09:50 U Cannabinoids Screen NEGATIVE (NEGATIVE) 10/31/21 09:50 Ethyl Alcohol < 5.0 mg/dL 10/31/21 09:50
[2021-11-03] MEDS ORDERED: ENOXAPARIN 60 MG/0.6 ML SYRINGE SUBQ SCH (09:00)
[2021-11-03] MEDS ORDERED: CYANOCOBALAMIN 500 MCG TABLET PO SCH (09:00)
[2021-11-03] MEDS ORDERED: SPIRONOLACTONE 25 MG TABLET PO SCH (09:00)
[2021-11-03] MEDS ORDERED: METOPROLOL SUCCINATE 25 MG TABLET PO SCH ×3 (09:00)
[2021-11-03] MEDS ORDERED: ASPIRIN CHEW 81 MG TABLET PO SCH (09:00)
[2021-11-03] MEDS: ACETAMINOPHEN 325 MG TABLET PO PRN ×3 (09:13→18:37)
[2021-11-03] MEDS: levETIRAcetam 250 MG TABLET PO SCH ×2 (09:14→21:01)
[2021-11-03] MEDS: METOPROLOL SUCCINATE 25 MG TABLET PO SCH ×2 (09:14→21:02)
[2021-11-03] MEDS: guaiFENesin 600 MG TABLET PO SCH ×2 (09:18→21:01)
[2021-11-03] MEDS: NITROFURANTOIN MACRO 100 MG CAPSULE PO SCH ×2 (09:18→21:01)
--- NOTE | 2021-11-03 09:57 | XRAY Report ---
PROCEDURE: Chest 1 View X-Ray INDICATIONS: WORSENING SOA TECHNIQUE: One view of the chest was acquired. COMPARISON: 11/02/2021 FINDINGS: Surgical changes and devices: None. Lungs and pleura: Increasing alveolar opacity in the left lower lung. There is diffuse interstitial p rominence, particularly in the mid to lower lung zones, slightly improved compared to the prior study . No pneumothorax. Mediastinum: Mediastinal contours appear normal. Heart size is normal. Decreased central vascular congestion. Bones and chest wall: No suspicious bony lesions. Overlying soft tissues appear unremarkable. IMPRESSION: 1. Moderately improved interstitial thickening and central vascular congestion. 2. Slight increase in alveolar edema the left lower lung. Atelectasis or underlying infection may be present. Reviewed by: Taylor Vick MD on 11/03/2021 9:55 AM PDT Approved by: Taylor Vick MD on 11/03/2021 9:55 AM PDT Station ID: [id number]
[2021-11-03] MEDS ORDERED: lisinopriL 5 MG TABLET PO SCH (12:00)
[2021-11-03] MEDS ORDERED: FUROSEMIDE 20 MG/2 ML VIAL IVP STA (17:47)
[2021-11-03] MEDS ORDERED: ENOXAPARIN 80 MG/0.8 ML SYRINGE SUBQ SCH (21:00)
[2021-11-03] MEDS: ATORVASTATIN 40 MG TABLET PO SCH (21:01)
[2021-11-03] MEDS: BACLOFEN 10 MG TABLET PO SCH (21:01)
[2021-11-03] MEDS ORDERED: diphenhydrAMINE 25 MG CAPSULE PO PRN (22:57)
--- NOTE | 2021-11-03 23:25 | DISCHARGE SUMMARY ---
Discharge Summary Admit Date: 10/31/21 Discharge Date: 11/04/21 Discharging Provider: Divina Cesar MD Primary Care Provider: Yenny Markham NP Code Status: Attempt Resuscitation Condition at Discharge: Serious Discharge Disposition: 02 Transfer Acute Care Hosp - [facility] History of Present Illness: From the admission H&P of Dr Raf Benoit: 65-year-old female who is well-known to the Hospitalist service, because of frequent admissions with AMS fromn dehydraytion and/or UTIs, who was brought in by EMS after a neighbor called 911. The patient was in her yard shouting and appeared confused. She is not able to provide further history due to her altered mental status. She was last admitted to the hospital on 09/25/21 with similar presentation and discharged 10/04/21. She has a Hx of MS and CAD with stenting done in 2019, and MS with R foot drop. Work-up now included a urinalysis which indicated a UTI. She had a white blood cell count of 15. Lactic Acid normal at 0.8. Head CT showed no acute changes. She had very dry oral mucosa and her creatinine was 2.5. She was presented to the Hospitalist team for admission for further treatment. - HOSPITAL COURSE Hospital Course: (1) E. coli UTI Her urine culture grew an E. coli that had resistance to multiple antibiotics. Thus she was changed to oral nitrofurantoin, to which it was sensitive, after stopping empiric Rocephin. She got just 2 days of Nitrofurantoin. (2) Acute encephalopathy After receiving iv hydration and treating the infection, her mental status normalized by day 2. She has had numerous similar presentations in the past, and UTIs and dehydration were found causing the confusion. She remembers none of these and did appear truly surprised. She lives alone and could not describe what happens. She denies any psychiatric diagnoses. She states she does have relapsing multiple sclerosis and has a Neurologist that follows her and will inform him regarding these. In addition, we learned she has insomnia and can go 6 nights sometimes without sleep. This may also be contributing to these episodes. (3) KJ (acute kidney injury) Her creat was 2.5 at admission. She received 2 days of iv fluids and creat normalized to 1.0. After her acute NSTEMI and hypotension (see below), her creat alyssa to 1.3 (4) Acute respiratory failure with hypoxia The patient reported feeling "panicky" and was found grunting and in acute respiratory failure with flash pulmonary edema at 2029 on 11/02/21. Her O2 sat was 70% on room air. She has underlying COPD but had no improvement with nebs, which made her tremulous and feel anxiety/panicky and were not continued. (5) Acute non-ST elevation myocardial infarction (NSTEMI) The patient developed grunting and acute respiratory failure, went to flash pulmonary edema and her troponins were cycled and were 59>> 258>> 844>> 780. Her EKG showed a chronic right bundle branch block and old inferior Q waves. She was given 4 baby aspirin and beta-briseida, started on Lovenox bid and an Echo was done. The Echo showed inferior wall akinesis, Gpjkss-dooidw-hslwut severe hypokinesis and lateral wall mild hypokinesis, LVEF 15 to 20% with diastolic dysfunction (grade 2) present. Because of her low blood pressure, no Nitropaste was started. We arranged for transfer to [facility] for coronary angiography and Cardiology management. (6) Flash pulmonary edema The patient felt "panicky" and was found grunting and in acute respiratory failure with flash pulmonary edema at 2029 on 11/02/21. BP was 150/100, HR 130 in sinus tachycardia. BNP was 1052 and CXR showed diffuse pulmonary edema. She responded well to a dose of IV morphine, Lasix IV and was given aspirin and beta-briseida, with the heart rate and blood pressure elevated. She was put on supplemental oxygen and continued on Lasix and her respiratory status stabilized. (7) Cardiogenic shock She was hypotensive and clammy, BP in the 80s-90's systolic after the MS and after Lasix and other meds were started. She was moved to the ICU. This likely was a result of the medications used for her flash pulmonary edema and from her very low cardiac output, given the ischemic cardiomyopathy seen on Echo. Her meds had holding parameters. No pressors were needed. She was accepted in transfer by Cardiology and by Hospitalist team at [facility] and was transferred by ambulance with BP 95/68. (8) Leukocytosis Her elevated WBC initially improved, but the day following her NSTEMI, the WBC alyssa to 20, which was likely demargination from the stress of the MS. Her repeat Lactic Acid was normal on the day of transfer at 0.8, she had no fever and a repeat CXR showed probably no pneumonia. (9) Seizure disorder Her home Keppra dose of 500 mg bid was continued. (10) Hypothyroidism TSH was in a good range at 2.92. Her home Levothyroid dose of 50 mcg daily was continued. - ALLERGIES Allergies/Adverse Reactions: Allergies Allergy/AdvReac Type Severity Reaction Status Date / Time No Known Drug Allergies Allergy Verified 09/25/21 20:26 - MEDICATIONS Home Medications: Ambulatory Orders Medication Instructions Recorded Confirmed Levothyroxine Sodium 50 mcg PO QDAC 07/18/19 10/31/21 Multivitamin/Iron/Folic Acid 1 tab PO DAILY 07/18/19 10/31/21 [Centrum Women Tablet] Calcium Carbonate/Vitamin D3 1 each PO DAILY 12/09/20 10/31/21 [Calcium 500Mg-Vit D3 15Mcg Tab] Atorvastatin [Lipitor] 40 mg PO QPM #0 12/21/20 10/31/21 Furosemide [Lasix] 10 mg PO DAILY 02/12/21 10/31/21 Potassium Chloride [Klor-Con 10] 10 meq PO DAILY 02/12/21 10/31/21 Cholecalciferol [Vitamin D3] 25 mcg PO DAILY 02/13/21 10/31/21 Levetiracetam [Keppra] 500 mg PO BID 04/16/21 10/31/21 Baclofen [Lioresal] 10 mg PO HS 09/08/21 10/31/21 Metoprolol Succinate [Toprol Xl] 6.25 mg PO DAILY #0 10/04/21 10/31/21 - PHYSICAL EXAM AT DISCHARGE General Appearance: positive: No acute distress (On O2 per n.c.) Eyes Bilateral: positive: Normal inspection, EOMI ENT: positive: ENT inspection nml, No signs of dehydration Neck: positive: Nml inspection, No JVD Respiratory: positive: No respiratory distress (on O2 per n.c.), Rales Cardiovascular: positive: Regular rate & rhythm, Systolic murmur Abdomen: positive: Non-tender, No distention Skin: positive: Warm, Dry, Pallor Extremities: positive: Non-tender, No pedal edema Neurologic/Psychiatric: positive: Oriented x3 (Non-focal) - LABS Result Diagrams: 11/03/21 05:45 11/03/21 05:45 - DIAGNOSTIC IMAGING Diagnostic Imaging Results: Final report reviewed - FOLLOW UP Follow Up: This will be determined after her hospitalization at [facility]. - TIME SPENT Time Spent in Discharge (Minutes): 50
--- NOTE | 2021-11-04 00:13 | Discharge Plan ---
Discharge Plan Problem Reviewed?: Yes Disposition: 02 Transfer Acute Care Hosp Condition: Serious No Smoking: If you smoke, Please STOP! Call for help.
[2021-11-04 00:19] VITALS: BP 103/74
[2021-11-04] MEDS: ACETAMINOPHEN 325 MG TABLET PO PRN (01:25)
[2021-11-04] MEDS ORDERED: FUROSEMIDE 20 MG TABLET PO SCH (09:00)
== END 2021-11-04 01:34 | disposition short-term general hospital (02) | DRG 689 ==
LOC: EDUNIT# → ED 09:13 → MS3 12:02 → MS2 11-01 20:56 → ICU 11-03 19:14
PROVIDERS: ADMIT Internal Medicine; ATTEND Internal Medicine
DX: N30.00 Acute cystitis without hematuria (principal); N39.0 Urinary tract infection, site not specified; I10 Essential (primary) hypertension; F17.200 Nicotine dependence, unspecified, uncomplicated; Z20.822 Contact with and (suspected) exposure to COVID-19; J96.01 Acute respiratory failure with hypoxia; I21.4 Non-ST elevation (NSTEMI) myocardial infarction; R57.0 Cardiogenic shock; J96.02 Acute respiratory failure with hypercapnia; G93.40 Encephalopathy, unspecified; N17.9 Acute kidney failure, unspecified; J44.1 Chronic obstructive pulmonary disease with (acute) exacerbation; I25.2 Old myocardial infarction; I25.10 Atherosclerotic heart disease of native coronary artery without angina pectoris; G35 Multiple sclerosis; M21.371 Foot drop, right foot; B96.20 Unspecified Escherichia coli [E. coli] as the cause of diseases classified elsewhere; G47.00 Insomnia, unspecified; I45.10 Unspecified right bundle-branch block; I25.5 Ischemic cardiomyopathy; D72.829 Elevated white blood cell count, unspecified; G40.909 Epilepsy, unspecified, not intractable, without status epilepticus; E03.9 Hypothyroidism, unspecified; F32.A Depression, unspecified; F90.9 Attention-deficit hyperactivity disorder, unspecified type; G89.29 Other chronic pain; M54.9 Dorsalgia, unspecified; F17.210 Nicotine dependence, cigarettes, uncomplicated; E86.0 Dehydration; E78.5 Hyperlipidemia, unspecified; E87.6 Hypokalemia; T48.6X5A Adverse effect of antiasthmatics, initial encounter; Z79.890 Hormone replacement therapy; Z79.899 Other long term (current) drug therapy; Z90.710 Acquired absence of both cervix and uterus; Z95.5 Presence of coronary angioplasty implant and graft
CPT/HCPCS: 36415; 36600; 70450; 71045; 80048; 80053; 80306; 81001; 82550; 82607; 82803; 83605; 83690; 83735; 83880; 84443; 84484; 85025; 87077; 87086; 87150; 87181; 87633; 93005; 94640; 97162; 97165; 97530; 97535; 99281; 99285; A9270; G0480; J1650; 80320; 81003

== ENCOUNTER → 2021-10-31 | Outpatient (CLI) | payer MEDICARE, MEDICAID | END | disposition critical access hospital (66) | LOC: EMS 08:55 | DX: R46.89 Other symptoms and signs involving appearance and behavior (principal); R40.0 Somnolence | CPT/HCPCS: A0425; A0427 ==

== ENCOUNTER 2022-03-22 17:37 | Outpatient (CLI) | payer MEDICARE, MEDICAID | END 2022-03-22 23:59 | disposition EMS.NT | LOC: EMS 17:37 | DX: Z03.89 Encounter for observation for other suspected diseases and conditions ruled out (principal) ==

== ENCOUNTER 2022-03-24 08:50 | Outpatient (CLI) | payer MEDICARE, MEDICAID | END 2022-03-24 08:51 | disposition critical access hospital (66) | LOC: EMS 08:50 | DX: M54.50 Low back pain, unspecified (principal); M79.605 Pain in left leg; M79.604 Pain in right leg | CPT/HCPCS: A0425; A0429 ==

== ENCOUNTER 2022-03-24 09:05 | Emergency (ER) | payer MEDICARE, MEDICAID ==
[2022-03-24] MEDS ORDERED: HYDROcod/ACETAM 5/325 MG TABLET PO STA (09:22)
--- NOTE | 2022-03-24 09:24 | ED Physician Documentation ---
PD HPI Fall - Stated complaint Stated Complaint: FOUND DOWN - Chief complaint Chief Complaint: General - History obtained from History obtained from: Patient, EMS - History of Present Illness Mechanism of injury: Lost balance (she states she lost balance with the boot orthosis and walker at her home. Fell gently to ground. But unable to get back up. Called EMS for lift assist. they brought her here for eval. Is having increased pain in ankle with the fall today.) Fall distance: Standing position Where injury occurred: Home Timing - onset: Last night Injury(ies) location: Left Lower Extremity (recently fractures left ankle is hurting more again after fall last night.) Quality of pain: Pain, Aching Associated symptoms: No: LOC, AMS, Paresthesias Worsens with: Movement, Palpation Contributing factors: No: Anticoagulated Similar symptoms before: Has not had sx before (rrshe states she was doing okay at rehab facility regarding walking with walker) Recently seen: Surgery (left ankle ortho repair at [facility] a month ago.) Review of Systems Constitutional: denies: Fever, Chills Nose: denies: Rhinorrhea / runny nose, Congestion Throat: denies: Sore throat Cardiac: denies: Chest pain / pressure, Palpitations, Pedal edema, Calf pain Respiratory: denies: Cough GI: reports: Nausea, Diarrhea. denies: Abdominal Pain, Vomiting Neurologic: denies: Confused, Altered mental status, Headache, Head injury PD PAST MEDICAL HISTORY - Past Medical History Cardiovascular: Hypertension, Coronary artery disease, [place] Respiratory: None Neuro: Multiple sclerosis Endocrine/Autoimmune: Other GI: None IMAGERY INTELLIGENCE: Other : Chronic bladder infection HEENT: None Psych: Depression, ADD/ADHD Musculoskeletal: Chronic back pain, Other Derm: Other - Past Surgical History Past Surgical History: Yes Ortho: Spine surgery /IMAGERY INTELLIGENCE: Hysterectomy Cardiovascular: Coronary stent, Cardiac catheterization - Present Medications Home Medications: Ambulatory Orders Medication Instructions Recorded Confirmed Levothyroxine Sodium 50 mcg PO QDAC 07/18/19 03/24/22 Multivitamin/Iron/Folic Acid 1 tab PO DAILY 07/18/19 03/24/22 [Centrum Women Tablet] Atorvastatin [Lipitor] 40 mg PO QPM #0 12/21/20 03/24/22 Cholecalciferol [Vitamin D3] 25 mcg PO DAILY 02/13/21 03/24/22 Levetiracetam [Keppra] 500 mg PO BID 04/16/21 03/24/22 Acetaminophen [Acetaminophen Extra 500 mg PO QID PRN #40 tablet 03/24/22 Strength] Cholestyramine (with Sugar) 1 packet DAILY 03/24/22 03/24/22 [Cholestyramine Packet] Clopidogrel [Plavix] 75 mg DAILY 03/24/22 03/24/22 Metoprolol Succinate [Kapspargo 25 mg DAILY 03/24/22 03/24/22 Sprinkle] oxyCODONE [Roxicodone] 5 mg PO Q6H PRN #18 tablet 03/24/22 - Allergies Allergies/Adverse Reactions: Allergies Allergy/AdvReac Type Severity Reaction Status Date / Time No Known Drug Allergies Allergy Verified 03/24/22 09:23 - Social History Does the pt smoke?: Yes Smoking Status: Current every day smoker Does the pt drink ETOH?: No Does the pt have substance abuse?: Yes - Immunizations Immunizations are current?: No - POLST Patient has POLST: No POLST Status: Full Code PD ED PE NORMAL - Vitals Vital signs reviewed: Yes - General General: Alert and oriented X 3, No acute distress, Well developed/nourished - HEENT HEENT: Atraumatic - Neck Neck: Supple, no meningeal sign, No bony TTP, No adenopathy - Cardiac Cardiac: RRR, No murmur - Respiratory Respiratory: Clear bilaterally - Abdomen Abdomen: Soft, Non tender - Derm Derm: Normal color, Warm and dry - Extremities Extremities: Other (left ankle with healed surgical scars. no signs of infection. Tender at lateral malleolus in particular. Achilles firm and not tender. ) - Neuro Neuro: Alert and oriented X 3, No motor deficit, No sensory deficit Results - Vitals Vitals: Vital Signs - 24 hr 03/24/22 03/24/22 09:06 12:42 Temperature 36.8 C Heart Rate 88 73 Respiratory 18 20 Rate Blood Pressure 133/83 H 102/70 O2 Saturation 97 99 Oxygen O2 Source [With Activity] Room air O2 Source [Without Activity] Room air O2 Source Room air - Labs Labs: Laboratory Tests 03/24/22 03/24/22 09:39 09:39 WBC 10.6 RBC 4.15 L Hgb 11.9 L Hct 37.0 MCV 89.2 MCH 28.7 MCHC 32.2 RDW 14.2 Plt Count 304 MPV 10.2 Neut # (Auto) 7.4 H Lymph # (Auto) 2.2 [place] # (Auto) 0.9 Eos # (Auto) 0.0 Baso # (Auto) 0.1 Absolute Nucleated RBC 0.00 Nucleated RBC % 0.0 Sodium 140 Potassium 4.2 Chloride 105 Carbon Dioxide 23 Anion Gap 12.0 BUN 29 H Creatinine 1.2 H Estimated GFR (MDRD) 45 L Glucose 86 Calcium 9.4 Total Bilirubin 1.1 H AST 27 ALT 20 Alkaline Phosphatase 104 Total Protein 8.0 Albumin 4.0 Globulin 4.0 Albumin/Globulin Ratio 1.0 Lipase 25 - Rads (name of study) left ankle Radiology: Prelim report reviewed (post repair changes. no new fractures. ), See rad report PD MEDICAL DECISION MAKING - ED course Complexity details: reviewed results, re-evaluated patient (hurting less with pain meds. able to get up in room with walking boot and walker. ), considered differential (recently hospitalized then rehab for ankle fracture. signed out of rehab to be back home. Out of pain meds. Had not gotten home aides aligned as yet. ), d/w patient, d/w fitness sales consultant (SW talked with patient and gave info for home health. Placed referral to community psychosocial rehabilitation counselor. ) Departure - Departure Disposition: 01 Home, Self Care Clinical Impression: Ankle pain, Fall Condition: Stable Record reviewed to determine appropriate education?: Yes Prescriptions: Acetaminophen [Acetaminophen Extra Strength] 500 mg PO QID PRN #40 tablet PRN Reason: Pain oxyCODONE [Roxicodone] 5 mg PO Q6H PRN #18 tablet PRN Reason: Pain Comments: Are psychosocial rehabilitation counselor talked with you about getting more help at home. She is referring you to outpatient psychosocial rehabilitation counselor to help you with this, Saturday. I wrote a prescription for some more pain medicine to help you be able to be up and around as much as you need to at home such as getting to the bathroom and kitchen etc. Continue with your walking cast boot and walker as directed by orthopedist. I sent your prescription to [facility] in [place]. My narcotic instructions I am prescribing a short course of narcotic pain medication for you. These are potentially dangerous and addictive medications that should be used carefully. These medications may constipate you. Take an caeq-eme-[id number] stool softener such as docusate twice daily with plenty of water while taking these medications. If you go 24 hours without a bowel movement, take [id number] MiraLAX, per package instructions. Do not drink or drive while taking these medications. If you received narcotic or sedating medications while in the emergency department do not drive for 24 hours. Store this medication in a safe, secure place and out of reach of children. It is a violation of federal law to give or sell this medication to another person or to use in a manner other than prescribed. The ED will not refill narcotic prescriptions, including prescriptions lost or stolen. You can dispose of unwanted medications at the [facility] office or at several pharmacies such as [facility]. Discharge Date/Time: 03/24/22 12:42
[2022-03-24 09:45] LABS: BASOPHILS # (AUTO) 0.1 10^3/uL (0.0-0.1); BASOPHILS % (AUTO) 1.2 %; EOSINOPHILS % (AUTO) 0.1 %; HGB - HEMOGLOBIN 11.9 g/dL (12.0-16.0); LYMPHOCYTES # (AUTO) 2.2 10^3/uL (1.5-3.5); LYMPHOCYTES % (AUTO) 20.8 %; MEAN CORPUSCULAR HEMOGLOBIN 28.7 pg (27.0-31.0); MEAN CORPUSCULAR HGB CONC 32.2 g/dL (32.0-36.0); MEAN CORPUSCULAR VOLUME 89.2 fL (81.0-99.0); MEAN PLATELET VOLUME 10.2 fL (7.9-10.8); MONOCYTES # (AUTO) 0.9 10^3/uL (0.0-1.0); MONOCYTES % (AUTO) 8.4 %; NEUTROPHILS # (AUTO) 7.4 10^3/uL (1.5-6.6); NEUTROPHILS % (AUTO) 69.3 %; PLT - PLATELET COUNT 304 10^3/uL (130-450); RED BLOOD COUNT 4.15 10^6/uL (4.20-5.40); RED CELL DISTRIBUTION WIDTH 14.2 % (12.0-15.0); WHITE BLOOD COUNT 10.6 x10^3/uL (4.8-10.8)
[2022-03-24 09:57] LABS: BILIRUBIN,TOTAL 1.1 mg/dL (0.2-1.0); CALCIUM 9.4 mg/dL (8.5-10.3); CREATININE 1.2 mg/dL (0.4-1.0); POTASSIUM 4.2 mmol/L (3.5-5.0)
--- NOTE | 2022-03-24 10:12 | XRAY Report ---
PROCEDURE: Ankle 3 View LT INDICATIONS: recent fracture; fell last night, inc pain TECHNIQUE: 3 views of the ankle were acquired. COMPARISON: 12/10/2021 FINDINGS: Bones: Distal fibular and medial malleolar fractures are now transfixed with orthopedic hardware in g ood position. 2 syndesmotic screws are present as well. Ankle mortise is maintained. Soft tissues: No tibiotalar joint effusion. Achilles tendon appears normal. IMPRESSION: Distal fibular and medial malleolar fractures with instrumented internal stabilization i n good position Reviewed by: Rayshawn Malave MD on 03/24/2022 9:10 AM [place] Approved by: Rayshawn Malave MD on 03/24/2022 9:10 AM [place] Station ID: [id number]
[2022-03-24 12:44] VITALS: BP 102/70
== END 2022-03-24 12:42 | disposition home or self-care (01) ==
LOC: EDUNIT# → ED 09:05
DX: S82.832D Other fracture of upper and lower end of left fibula, subsequent encounter for closed fracture with routine healing (principal); S82.52XD Displaced fracture of medial malleolus of left tibia, subsequent encounter for closed fracture with routine healing; W18.30XD Fall on same level, unspecified, subsequent encounter; F17.200 Nicotine dependence, unspecified, uncomplicated
CPT/HCPCS: 36415; 73610; 80053; 83690; 85025; 99284; A9270

== ENCOUNTER 2022-03-25 12:02 | Outpatient (CLI) | payer MEDICARE, MEDICAID | END 2022-03-25 12:03 | disposition critical access hospital (66) | LOC: EMS 12:02 | DX: M79.672 Pain in left foot (principal) | CPT/HCPCS: A0425; A0429 ==

== ENCOUNTER 2022-03-25 12:23 | Emergency (ER) | payer MEDICARE, MEDICAID ==
[2022-03-25 13:02] VITALS: BP 80/59
--- NOTE | 2022-03-25 16:18 | ED Physician Documentation ---
PD HPI LOWER EXT INJURY - Stated complaint Stated Complaint: MED REFILL - Chief complaint Chief Complaint: General - History obtained from History obtained from: Patient, EMS - History of Present Illness PD HPI LOW EXT INJURY LOCATION: Left, Ankle Type of injury: Twist (she states she fell and twisted repaired ankle 2 days ago and has worse pain than was having.), Other (she had prior ankle fracture and does not have Rx for pain meds. Seen yesterday and given rx for 18 tablets. She states she needed 2-3 every 4 hours so has used them in the 1 1/2 days.) Timing - details: Still present Associated symptoms: No: Weakness, Numbness Review of Systems Constitutional: denies: Fever, Chills Cardiac: denies: Chest pain / pressure, Pedal edema, Calf pain Respiratory: denies: Dyspnea PD PAST MEDICAL HISTORY - Past Medical History Cardiovascular: Hypertension, Coronary artery disease, [place] Respiratory: None Neuro: Multiple sclerosis Endocrine/Autoimmune: Other GI: None CULTURAL ANTHROPOLOGY PROFESSOR: Other : Chronic bladder infection HEENT: None Psych: Depression, ADD/ADHD Musculoskeletal: Chronic back pain, Other Derm: Other - Past Surgical History Past Surgical History: Yes Ortho: Spine surgery /CULTURAL ANTHROPOLOGY PROFESSOR: Hysterectomy Cardiovascular: Coronary stent, Cardiac catheterization - Present Medications Home Medications: Ambulatory Orders Medication Instructions Recorded Confirmed Levothyroxine Sodium 50 mcg PO QDAC 07/18/19 03/24/22 Multivitamin/Iron/Folic Acid 1 tab PO DAILY 07/18/19 03/24/22 [Centrum Women Tablet] Atorvastatin [Lipitor] 40 mg PO QPM #0 12/21/20 03/24/22 Cholecalciferol [Vitamin D3] 25 mcg PO DAILY 02/13/21 03/24/22 Levetiracetam [Keppra] 500 mg PO BID 04/16/21 03/24/22 Acetaminophen [Acetaminophen Extra 500 mg PO QID PRN #40 tablet 03/24/22 Strength] Cholestyramine (with Sugar) 1 packet DAILY 03/24/22 03/24/22 [Cholestyramine Packet] Clopidogrel [Plavix] 75 mg DAILY 03/24/22 03/24/22 Metoprolol Succinate [Kapspargo 25 mg DAILY 03/24/22 03/24/22 Sprinkle] oxyCODONE [Roxicodone] 5 mg PO Q6H PRN #18 tablet 03/24/22 Oxycodone HCl/Acetaminophen 1 each PO TID PRN #15 tablet 03/25/22 [Percocet 10-325 mg Tablet] - Allergies Allergies/Adverse Reactions: Allergies Allergy/AdvReac Type Severity Reaction Status Date / Time No Known Drug Allergies Allergy Verified 03/25/22 13:02 - Social History Does the pt smoke?: Yes Smoking Status: Current every day smoker Does the pt drink ETOH?: No Does the pt have substance abuse?: Yes - Immunizations Immunizations are current?: No - POLST Patient has POLST: No POLST Status: Full Code PD ED PE NORMAL - Vitals Vital signs reviewed: Yes - General General: Alert and oriented X 3, No acute distress (while lying on cart with leg up. ), Well developed/nourished - Derm Derm: Normal color, Warm and dry - Extremities Extremities: No edema, No calf tenderness / cord, Other (healed surgical scars without signs of infection. ) - Neuro Neuro: No motor deficit, No sensory deficit Results - Vitals Vitals: Vital Signs - 24 hr 03/25/22 12:55 Temperature 37.1 C Heart Rate 70 Respiratory 20 Rate Blood Pressure 80/59 L O2 Saturation 97 Oxygen O2 Source [With Activity] Room air O2 Source [Without Activity] Room air O2 Source Room air PD MEDICAL DECISION MAKING - ED course Complexity details: reviewed old records, re-evaluated patient (improved pain and able to stand with boot orthosis reasonably after iM meds here. ), considered differential (worse pain after fall 2 days ago. xray yesterday without disruption of surgical area. Has ongoing post op pain but acutely worse. I gave rx for pt presuming would taper down over few days. Giving another rx now and coached patient that she does need to limit the meds to TID until can see her PMD.), d/w patient Departure - Departure Disposition: 01 Home, Self Care Clinical Impression: Bimalleolar fracture of left ankle, Post-operative pain Condition: Stable Record reviewed to determine appropriate education?: Yes Prescriptions: Oxycodone HCl/Acetaminophen [Percocet 10-325 mg Tablet] 1 each PO TID PRN #15 tablet PRN Reason: Pain Comments: Continue with your boot orthosis and walker. You will really need to limit the amount of extra pain medicine that you are taking to just prescribed. I wrote for a higher strength of the pain medicine but only for 3 times a day. Follow-up with your primary care and orthopedist regarding any further medication as we will not be prescribing any more out of the ER for this particular problem. I sent your prescription to your same pharmacy. Call the information that you have tomorrow regarding setting up home health care/visits. Discharge Date/Time: 03/25/22 19:02
[2022-03-25] MEDS ORDERED: HYDROmorphone 2 MG/ML VIAL IM STA (16:33)
[2022-03-25] MEDS ORDERED: oxyCODONE/ACET 5/325 Prepack 4 PO STA (16:33)
== END 2022-03-25 19:02 | disposition home or self-care (01) ==
LOC: ED 12:23
DX: S82.842A Displaced bimalleolar fracture of left lower leg, initial encounter for closed fracture (principal); W19.XXXA Unspecified fall, initial encounter; G89.18 Other acute postprocedural pain; F17.200 Nicotine dependence, unspecified, uncomplicated
CPT/HCPCS: 96372; 99283; J1170

== ENCOUNTER 2022-03-26 12:33 | Outpatient (CLI) | payer MEDICARE, MEDICAID | END 2022-03-26 12:34 | disposition EMS.NT | LOC: EMS 12:33 | DX: M25.572 Pain in left ankle and joints of left foot (principal) ==

== ENCOUNTER 2022-04-03 10:40 | Emergency (ER) | payer MEDICARE, MEDICAID ==
[2022-04-03] MEDS ORDERED: SODIUM CHLORIDE 0.9% 1,000 ML IV STA ×3 (11:05→16:36)
[2022-04-03 11:24] LABS: BASOPHILS # (AUTO) 0.1 10^3/uL (0.0-0.1); BASOPHILS % (AUTO) 0.6 %; HCT - HEMATOCRIT 40.1 % (37.0-47.0); HGB - HEMOGLOBIN 12.6 g/dL (12.0-16.0); LYMPHOCYTES # (AUTO) 2.6 10^3/uL (1.5-3.5); LYMPHOCYTES % (AUTO) 21.2 %; MEAN CORPUSCULAR HEMOGLOBIN 28.1 pg (27.0-31.0); MEAN CORPUSCULAR HGB CONC 31.4 g/dL (32.0-36.0); MEAN CORPUSCULAR VOLUME 89.3 fL (81.0-99.0); MEAN PLATELET VOLUME 10.3 fL (7.9-10.8); MONOCYTES # (AUTO) 1.1 10^3/uL (0.0-1.0); MONOCYTES % (AUTO) 9.1 %; NEUTROPHILS # (AUTO) 8.5 10^3/uL (1.5-6.6); NEUTROPHILS % (AUTO) 68.9 %; PLT - PLATELET COUNT 308 10^3/uL (130-450); RED BLOOD COUNT 4.49 10^6/uL (4.20-5.40); RED CELL DISTRIBUTION WIDTH 16.3 % (12.0-15.0); WHITE BLOOD COUNT 12.4 x10^3/uL (4.8-10.8)
[2022-04-03 11:45] LABS: ALBUMIN 3.7 g/dL (3.2-5.5); BILIRUBIN,TOTAL 0.2 mg/dL (0.2-1.0); CALCIUM 8.2 mg/dL (8.5-10.3); CREATININE 4.8 mg/dL (0.4-1.0); POTASSIUM 3.2 mmol/L (3.5-5.0); TOTAL PROTEIN 7.4 g/dL (6.7-8.2)
[2022-04-03] MEDS ORDERED: HYDROmorphone 0.5 MG/0.5 ML SYRINGE IVP STA (11:52)
--- NOTE | 2022-04-03 12:11 | ED Physician Documentation ---
History of Present Illness - Stated complaint Stated Complaint: AMS - Chief complaint Chief Complaint: General - History obtained from History obtained from: Patient - Additonal information Additional information: The patient was brought to the emergency department by EMS after being found down at her home. The patient has a history of progressive generalized weakness and foot pain and had actually been admitted to a residential facility sometime ago. However, she recently signed herself out because she was tired of being there and wanted to get back to her house. The patient feels that ev erything was going fine until a couple of days ago when she began to feel generally weak. She states that the symptoms have progressed until she finally fell on the floor and could not get herself back up because she was so weak. She was incontinent of urine and feces per her report in the medics. The patient denies any fevers or chills. No cough or shortness of breath. The patient does have COPD but this is not bothering her currently. No dysuria. She is not really sure why she is weak but she does note that she has not been drinking enough fluid. No other complaints at this time. The patient states she still wants to go back home and does not want to go back to a residential facility no matter what. Review of Systems Ten Systems: 10 systems reviewed and negative Constitutional: reports: Fatigue Eyes: reports: Reviewed and negative Ears: reports: Reviewed and negative Nose: reports: Reviewed and negative Throat: reports: Reviewed and negative Cardiac: reports: Reviewed and negative Respiratory: reports: Reviewed and negative GI: reports: Reviewed and negative : reports: Reviewed and negative Skin: reports: Reviewed and negative Musculoskeletal: reports: Reviewed and negative Neurologic: reports: Reviewed and negative Psychiatric: reports: Reviewed and negative Endocrine: reports: Reviewed and negative Immunocompromised: reports: Reviewed and negative PD PAST MEDICAL HISTORY - Past Medical History Cardiovascular: Hypertension, Coronary artery disease, [place] Respiratory: None Neuro: Multiple sclerosis Endocrine/Autoimmune: Other GI: None FIELD COUNSEL: Other : Chronic bladder infection HEENT: None Psych: Depression, ADD/ADHD Musculoskeletal: Chronic back pain, Other Derm: Other - Past Surgical History Past Surgical History: Yes Ortho: Spine surgery /FIELD COUNSEL: Hysterectomy Cardiovascular: Coronary stent, Cardiac catheterization - Present Medications Home Medications: Ambulatory Orders Medication Instructions Recorded Confirmed Levothyroxine Sodium 50 mcg PO QDAC 07/18/19 04/03/22 Atorvastatin [Lipitor] 40 mg PO QPM #0 12/21/20 04/03/22 Levetiracetam [Keppra] 500 mg PO BID 04/16/21 04/03/22 Acetaminophen [Acetaminophen Extra 500 mg PO QID PRN #40 tablet 03/24/22 04/03/22 Strength] Cholestyramine (with Sugar) 1 packet PO DAILY 03/24/22 04/03/22 [Cholestyramine Packet] Clopidogrel [Plavix] 75 mg DAILY 03/24/22 04/03/22 Metoprolol Succinate [Kapspargo 25 mg DAILY 03/24/22 04/03/22 Sprinkle] Baclofen [Lioresal] 10 mg PO DAILY 04/03/22 04/03/22 Furosemide [Lasix] 20 mg PO DAILY 04/03/22 04/03/22 Losartan Potassium 25 mg PO DAILY 04/03/22 04/03/22 Potassium Chloride 10 meq PO BID 04/03/22 04/03/22 - Allergies Allergies/Adverse Reactions: Allergies Allergy/AdvReac Type Severity Reaction Status Date / Time No Known Drug Allergies Allergy Verified 04/03/22 10:58 - Social History Does the pt smoke?: Yes Smoking Status: Current every day smoker Does the pt drink ETOH?: No Does the pt have substance abuse?: Yes - Immunizations Immunizations are current?: No - POLST Patient has POLST: No POLST Status: Full Code PD ED PE NORMAL - Vitals Vital signs reviewed: Yes - General General: Alert and oriented X 3, No acute distress, Well developed/nourished - HEENT HEENT: Atraumatic, PERRL, EOMI, Moist mucous membranes - Neck Neck: Supple, no meningeal sign - Cardiac Cardiac: RRR, No murmur, Strong equal pulses - Respiratory Respiratory: No respiratory distress, Clear bilaterally - Abdomen Abdomen: Soft, Non tender, Non distended - Derm Derm: Normal color, Warm and dry, No rash - Extremities Extremities: No deformity, No edema - Neuro Neuro: Other (Alert and answers questions appropriately. No focal weakness.) - Psych Psych: Normal mood, Normal affect Results - Vitals Vitals: Vital Signs - 24 hr 04/03/22 04/03/22 04/03/22 15:00 15:40 19:46 Temperature 36.7 C 36.5 C Heart Rate 65 69 69 Respiratory 18 17 18 Rate Blood Pressure 108/57 L 94/58 L 120/58 L O2 Saturation 96 93 100 04/04/22 04/04/22 04/04/22 03:09 03:32 04:00 Temperature 36.4 C L Heart Rate 65 Respiratory 14 15 15 Rate Blood Pressure 128/62 O2 Saturation 99 04/04/22 04/04/22 04/04/22 05:01 06:25 11:05 Temperature Heart Rate Respiratory 13 13 Rate Blood Pressure 103/63 O2 Saturation 04/04/22 14:05 Temperature Heart Rate 67 Respiratory 18 Rate Blood Pressure 102/61 O2 Saturation 99 Oxygen O2 Source [With Activity] Room air O2 Source [Without Activity] Room air O2 Source Room air - Labs Labs: Microbiology 04/03/22 12:41 Urine Culture - Preliminary Urine,Catheterized Laboratory Tests 04/03/22 04/03/22 04/03/22 11:18 11:18 12:41 WBC 12.4 H RBC 4.49 Hgb 12.6 Hct 40.1 MCV 89.3 MCH 28.1 MCHC 31.4 L RDW 16.3 H Plt Count 308 MPV 10.3 Neut # (Auto) 8.5 H Lymph # (Auto) 2.6 [place] # (Auto) 1.1 H Eos # (Auto) 0.0 Baso # (Auto) 0.1 Absolute Nucleated RBC 0.00 Nucleated RBC % 0.0 Sodium 142 Potassium 3.2 L Chloride 104 Carbon Dioxide 20 L Anion Gap 18.0 H BUN 59 H Creatinine 4.8 H Estimated GFR (MDRD) 9 L Glucose 82 Calcium 8.2 L Total Bilirubin 0.2 AST 13 ALT 13 Alkaline Phosphatase 81 Total Protein 7.4 Albumin 3.7 Globulin 3.7 Albumin/Globulin Ratio 1.0 Lipase 57 H Urine Color YELLOW Urine Clarity HAZY Urine pH 5.5 Ur Specific [place] 1.020 Urine Protein NEGATIVE Urine Glucose (UA) NEGATIVE Urine Ketones NEGATIVE Urine Occult Blood TRACE-INTA Urine Nitrite POSITIVE H Urine Bilirubin NEGATIVE Urine Urobilinogen 0.2 (NORMAL) Ur Leukocyte Esterase SMALL H Urine RBC 0-5 Urine WBC 11-25 H Urine WBC Clumps PRESENT Ur Squamous Epith Cells FEW Squamous Urine Bacteria Many H Ur Microscopic Review INDICATED Urine Culture Comments INDICATED PD MEDICAL DECISION MAKING - ED course Complexity details: reviewed results, re-evaluated patient, considered differential, d/w patient ED course: PT was worked up with labs and ultimately, UA, and treated with repeated boluses of NS until she could urinate. She was found to have a UTI, and was started on abx for this. The pt was sitting up and eating, and alert, and wished to go home. I consulted SW, who had worked with the pt's case extensively in the past. The pt was gotten up for an ambulation test with a walker, and needed assistance getting up from the bed. She was able to ambulate, but with great unsteadiness, secondary to chronic pain in her legs and feet. The pt was not fit to be discharged yet, and agreed to stay so that [facility] could further address her case. At this point in time, we will board her in the ED, pending placement or improvement in her clinical situation. PT/OT consult has been placed. Departure - Departure Clinical Impression: Physical deconditioning UTI (urinary tract infection) Qualifiers: Urinary tract infection type: acute cystitis Hematuria presence: without hematuria Qualified Code(s): N30.00 - Acute cystitis without hematuria Condition: Stable
[2022-04-03 13:02] LABS: BILIRUBIN,URINE NEGATIVE (NEGATIVE); GLUCOSE, URINE (UA) NEGATIVE (NEGATIVE); KETONES,URINE (UA) NEGATIVE (NEGATIVE); LEUKOCYTE ESTERASE, URINE SMALL (NEGATIVE); NITRITE,URINE POSITIVE (NEGATIVE); OCCULT BLOOD,URINE TRACE-INTA (NEGATIVE); PH,URINE 5.5 PH (5.0-7.5); PROTEIN,URINE NEGATIVE (NEGATIVE); UROBILINOGEN,URINE 0.2 (NORMAL) E.U./dL (NORMAL)
[2022-04-03 13:07] LABS: CLARITY,URINE HAZY (CLEAR)
[2022-04-03] MEDS ORDERED: POTASSIUM CHLORIDE 20 MEQ TABLET PO STA (13:12)
[2022-04-03 13:13] LABS: RBC,URINE 0-5 /HPF (0-5); WBC CLUMPS,URINE PRESENT
[2022-04-03 13:14] LABS: BACTERIA,URINE Many /HPF (None Seen); SQUAMOUS EPITHELIAL CELL,UR FEW Squamous (<= Few)
[2022-04-03] MEDS ORDERED: SULFAMETH/TRIMETH DS 800/160 MG TABLET PO STA (14:00)
[2022-04-03] MEDS ORDERED: HYDROcod/ACETAM 5/325 MG TABLET PO STA ×2 (15:14→16:31)
[2022-04-03] MEDS ORDERED: MIN OIL/DIMETHICON/COCONUT OIL 92 GM TUBE TOP STA (15:14)
[2022-04-04] MEDS ORDERED: BACLOFEN 10 MG TABLET PO STA (01:36)
[2022-04-04] MEDS ORDERED: oxyCODONE 5 MG TABLET PO STA ×2 (01:36→09:10)
[2022-04-04] MEDS ORDERED: FLUTICASONE NASAL SPRAY NAS STA (01:38)
[2022-04-04] MEDS: LEVOTHYROXINE 25 MCG TABLET PO SCH (07:19)
[2022-04-04] MEDS: SULFAMETH/TRIMETH DS 800/160 MG TABLET PO SCH ×2 (08:53→21:01)
[2022-04-04] MEDS: levETIRAcetam 250 MG TABLET PO SCH ×2 (08:53→21:01)
[2022-04-04] MEDS: ASPIRIN CHEW 81 MG TABLET PO SCH (08:53)
[2022-04-04] MEDS: FLUTICASONE NASAL SPRAY NAS SCH (09:10)
[2022-04-04] MEDS: oxyCODONE 5 MG TABLET PO PRN (17:51)
[2022-04-04] MEDS: ATORVASTATIN 40 MG TABLET PO SCH (21:01)
[2022-04-05] MEDS: oxyCODONE 5 MG TABLET PO PRN ×4 (06:31→19:24)
[2022-04-05] MEDS: SULFAMETH/TRIMETH DS 800/160 MG TABLET PO SCH (08:20)
[2022-04-05] MEDS: ASPIRIN CHEW 81 MG TABLET PO SCH (08:20)
[2022-04-05] MEDS: levETIRAcetam 250 MG TABLET PO SCH (08:20)
[2022-04-05] MEDS: FLUTICASONE NASAL SPRAY NAS SCH (08:21)
[2022-04-05] MEDS: LEVOTHYROXINE 25 MCG TABLET PO SCH (08:24)
[2022-04-06] MEDS: levETIRAcetam 250 MG TABLET PO SCH ×2 (00:35→09:10)
[2022-04-06] MEDS: ATORVASTATIN 40 MG TABLET PO SCH (00:35)
[2022-04-06] MEDS: SULFAMETH/TRIMETH DS 800/160 MG TABLET PO SCH ×3 (00:35→09:10)
[2022-04-06] MEDS: oxyCODONE 5 MG TABLET PO PRN ×3 (01:37→13:37)
[2022-04-06] MEDS: LEVOTHYROXINE 25 MCG TABLET PO SCH (06:31)
[2022-04-06] MEDS: FLUTICASONE NASAL SPRAY NAS SCH (09:10)
[2022-04-06] MEDS: ASPIRIN CHEW 81 MG TABLET PO SCH (09:10)
[2022-04-06 16:00] VITALS: BP 145/77
--- NOTE | 2022-04-06 16:31 | ED Physician Documentation ---
ED Addendum - Addendum Addendum: Social work has seen the patient today and informed her that she does not qualify for SNF. Patient is reportedly unwilling to move into an assisted living facility.Patient then requested discharge. I also spoke with the patient and she feels that she can manage at home. She reports having a neighbor that is good to help her this evening. Patient was able to ambulate and passed a road test with ER staff. She has declined further help from social work at this time.Patient was given a taxi voucher. She did have a few days left of antibiotics for urinary tract infection and so I did Write a prescription for those. Departure - Departure Disposition: Home, Self Care Clinical Impression: Physical deconditioning UTI (urinary tract infection) Qualifiers: Urinary tract infection type: acute cystitis Hematuria presence: without hematuria Qualified Code(s): N30.00 - Acute cystitis without hematuria Condition: Stable Instructions: ED UTI Cystitis Female, ED Weakness [facility] Prescriptions: Sulfamethox/Trimeth 800/160 [Bactrim Ds 800/160] 1 each PO BID #4 tablet Comments: You were evaluated for weakness and found to have a UTI. You have 2 more days of an antibiotic and I have sent The prescription to an drug in [place]. Please reach out to your primary care doctor and utilize any resources given to you by social work. If you have any new or worsening Symptoms please return to the emergency department. Discharge Date/Time: 04/06/22 16:59
== END 2022-04-06 16:59 | disposition home or self-care (01) ==
LOC: EDUNIT# → ED 10:40
DX: N30.00 Acute cystitis without hematuria (principal); R53.81 Other malaise; W19.XXXA Unspecified fall, initial encounter; Z91.81 History of falling; X58.XXXA Exposure to other specified factors, initial encounter; F17.200 Nicotine dependence, unspecified, uncomplicated
CPT/HCPCS: 36415; 80053; 81001; 83690; 85025; 87077; 87086; 87181; 96374; 99282; 99283; A6250; A9270; J1170; 81003

== ENCOUNTER → 2022-04-03 | Outpatient (CLI) | payer MEDICARE, MEDICAID | END | disposition critical access hospital (66) | LOC: EMS 10:22 | DX: R53.1 Weakness (principal); Z74.1 Need for assistance with personal care | CPT/HCPCS: A0425; A0427 ==

== ENCOUNTER 2022-04-10 09:39 | Outpatient (CLI) | payer MEDICARE, MEDICAID | END 2022-04-10 23:59 | disposition left against medical advice (07) | LOC: EMS 09:39 | DX: R53.1 Weakness (principal); R53.83 Other fatigue ==

== ENCOUNTER 2022-04-17 19:02 | Observation (INO) | payer MEDICARE, MEDICAID ==
--- NOTE | 2022-04-17 19:06 | ED Physician Documentation ---
PD HPI ALTERED MENTAL STATUS - Stated complaint Stated Complaint: AMS - History obtained from History obtained from: EMS - Additional information Additional information: 66-year-old woman presents by ambulance. She has a history of seizure disorder, coronary disease, hypothyroidism, COPD, multiple sclerosis, HFrEF. She is a frequent visitor to the emergency department for episodes of altered mental status. This is the third time today that EMS went to her residence for confusion. She was not transported the prior 2 times. She is unable to give any history other than her name. Review of the chart shows basically monthly visits for similar presentations revealing episodic UTIs and kidney failure. Also on some of her admissions was noted to be in rhabdomyolysis. 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: Other : Chronic bladder infection HEENT: None Psych: Depression, ADD/ADHD Musculoskeletal: Chronic back pain, Other Derm: Other - Past Surgical History Past Surgical History: Yes Ortho: Spine surgery /HYDRAULIC GOVERNOR ASSEMBLER: Hysterectomy Cardiovascular: Coronary stent, Cardiac catheterization - Present Medications Home Medications: Ambulatory Orders Medication Instructions Recorded Confirmed Levothyroxine Sodium 50 mcg PO QDAC 07/18/19 04/03/22 Atorvastatin [Lipitor] 40 mg PO QPM #0 12/21/20 04/03/22 Levetiracetam [Keppra] 500 mg PO BID 04/16/21 04/03/22 Acetaminophen [Acetaminophen Extra 500 mg PO QID PRN #40 tablet 03/24/22 04/03/22 Strength] Cholestyramine (with Sugar) 1 packet PO DAILY 03/24/22 04/03/22 [Cholestyramine Packet] Clopidogrel [Plavix] 75 mg DAILY 03/24/22 04/03/22 Metoprolol Succinate [Kapspargo 25 mg DAILY 03/24/22 04/03/22 Sprinkle] Baclofen [Lioresal] 10 mg PO DAILY 04/03/22 04/03/22 Furosemide [Lasix] 20 mg PO DAILY 04/03/22 04/03/22 Losartan Potassium 25 mg PO DAILY 04/03/22 04/03/22 Potassium Chloride 10 meq PO BID 04/03/22 04/03/22 Sulfamethox/Trimeth 800/160 1 each PO BID #4 tablet 04/06/22 [Bactrim Ds 800/160] - Allergies Allergies/Adverse Reactions: Allergies Allergy/AdvReac Type Severity Reaction Status Date / Time No Known Drug Allergies Allergy Verified 04/17/22 19:07 - Social History Does the pt smoke?: Yes Smoking Status: Current every day smoker Does the pt drink ETOH?: No Does the pt have substance abuse?: Yes - Immunizations Immunizations are current?: No - POLST Patient has POLST: No POLST Status: Full Code PD ED PE NORMAL - Vitals Vital signs reviewed: Yes - General General: Other (She is able to state her name "Lesli", otherwise cannot really answer any questions, just answers "yeah" to everything. She does follow simple commands.) - HEENT HEENT: PERRL, EOMI - Neck Neck: Supple, no meningeal sign, No bony TTP - Cardiac Cardiac: RRR, No murmur - Respiratory Respiratory: No respiratory distress, Clear bilaterally - Abdomen Abdomen: Normal bowel sounds, Soft, Non tender - Back Back: No CVA TTP, No spinal TTP - Derm Derm: Normal color, Warm and dry, Other (Pretty significant yeast type rash on the back and buttocks) - Extremities Extremities: No edema, No calf tenderness / cord - Neuro Neuro: Other (Follow simple commands in all 4 extremities with good strength, alert and oriented to person only) Eye Opening: Spontaneous Motor: Obeys Commands Verbal: Inappropriate GCS Score: 13 Results - Vitals Vitals: Vital Signs - 24 hr 04/17/22 04/17/22 19:04 21:06 Temperature 36.2 C L Heart Rate 91 65 Respiratory 16 14 Rate Blood Pressure 123/84 H 140/102 H O2 Saturation 97 98 Oxygen O2 Source [With Activity] Room air O2 Source [Without Activity] Room air O2 Source Room air - Labs Labs: Laboratory Tests 04/17/22 04/17/22 04/17/22 19:20 19:20 19:20 WBC 16.3 H RBC 4.85 Hgb 13.6 Hct 43.1 MCV 88.9 MCH 28.0 MCHC 31.6 L RDW 15.6 H Plt Count 467 H MPV 10.1 Neut # (Auto) 11.3 H Lymph # (Auto) 3.6 H [place] # (Auto) 1.1 H Eos # (Auto) 0.0 Baso # (Auto) 0.2 H Absolute Nucleated RBC 0.00 Nucleated RBC % 0.0 VBG pH VBG pCO2 VBG pO2 VBG HCO3 VBG Total CO2 VBG O2 Saturation VBG Base Excess Sodium 144 Potassium 3.9 Chloride 100 L Carbon Dioxide 29 Anion Gap 15.0 H BUN 48 H Creatinine 2.2 H Estimated GFR (MDRD) 22 L Glucose 123 H Lactic Acid 1.5 Calcium 10.3 Magnesium 1.8 Total Bilirubin 0.5 AST 22 ALT 19 Alkaline Phosphatase 111 Total Creatine Kinase 111 Total Protein 8.8 H Albumin 4.3 Globulin 4.5 H Albumin/Globulin Ratio 1.0 TSH Urine Color Urine Clarity Urine pH Ur Specific [place] Urine Protein Urine Glucose (UA) Urine Ketones Urine Occult Blood Urine Nitrite Urine Bilirubin Urine Urobilinogen Ur Leukocyte Esterase Urine RBC Urine WBC Ur Squamous Epith Cells Amorphous Sediment Urine Bacteria Ur Microscopic Review Urine Culture Comments Nasal Adenovirus (PCR) Nasal B. parapertussis DNA (PCR) Nasal Coronavir 229E PCR Nasal Coronavir HKU1 PCR Nasal Coronavir NL63 PCR Nasal Coronavir OC43 PCR Nasal Enterovir/Rhinovir PCR Nasal Influenza B PCR Nasal Influenza A PCR Nasal Parainfluen 1 PCR Nasal Parainfluen 2 PCR Nasal Parainfluen 3 PCR Nasal Parainfluen 4 PCR Nasal RSV (PCR) Nasal B.pertussis DNA PCR Nasal C.pneumoniae (PCR) Jaya Human Metapneumo PCR Nasal M.pneumoniae (PCR) Nasal SARS-CoV-2 (PCR) Salicylates < 6.0 Urine Opiates Screen Ur Oxycodone Screen Urine Methadone Screen Ur Propoxyphene Screen Acetaminophen < 10 L Ur Barbiturates Screen Ur Tricyclics Screen Ur Phencyclidine Scrn Ur Amphetamine Screen U Methamphetamines Scrn U Benzodiazepines Scrn Urine Cocaine Screen U Cannabinoids Screen Ethyl Alcohol < 5.0 04/17/22 04/17/22 04/17/22 19:20 19:20 19:32 WBC RBC Hgb Hct MCV MCH MCHC RDW Plt Count MPV Neut # (Auto) Lymph # (Auto) [place] # (Auto) Eos # (Auto) Baso # (Auto) Absolute Nucleated RBC Nucleated RBC % VBG pH 7.437 H VBG pCO2 44.3 VBG pO2 31.5 VBG HCO3 29.2 H VBG Total CO2 30.6 H VBG O2 Saturation 63.4 VBG Base Excess 4.3 H Sodium Potassium Chloride Carbon Dioxide Anion Gap BUN Creatinine Estimated GFR (MDRD) Glucose Lactic Acid Calcium Magnesium Total Bilirubin AST ALT Alkaline Phosphatase Total Creatine Kinase Total Protein Albumin Globulin Albumin/Globulin Ratio TSH 4.42 Urine Color YELLOW Urine Clarity CLOUDY Urine pH 6.0 Ur Specific [place] 1.025 Urine Protein NEGATIVE Urine Glucose (UA) NEGATIVE Urine Ketones NEGATIVE Urine Occult Blood NEGATIVE Urine Nitrite NEGATIVE Urine Bilirubin NEGATIVE Urine Urobilinogen 0.2 (NORMAL) Ur Leukocyte Esterase SMALL H Urine RBC 0-5 Urine WBC >25 H Ur Squamous Epith Cells MOD Squamous H Amorphous Sediment Moderate Urine Bacteria Many H Ur Microscopic Review INDICATED Urine Culture Comments NOT INDICATED Nasal Adenovirus (PCR) Nasal B. parapertussis DNA (PCR) Nasal Coronavir 229E PCR Nasal Coronavir HKU1 PCR Nasal Coronavir NL63 PCR Nasal Coronavir OC43 PCR Nasal Enterovir/Rhinovir PCR Nasal Influenza B PCR Nasal Influenza A PCR Nasal Parainfluen 1 PCR Nasal Parainfluen 2 PCR Nasal Parainfluen 3 PCR Nasal Parainfluen 4 PCR Nasal RSV (PCR) Nasal B.pertussis DNA PCR Nasal C.pneumoniae (PCR) Jaya Human Metapneumo PCR Nasal M.pneumoniae (PCR) Nasal SARS-CoV-2 (PCR) Salicylates Urine Opiates Screen NEGATIVE Ur Oxycodone Screen NEGATIVE Urine Methadone Screen NEGATIVE Ur Propoxyphene Screen NEGATIVE Acetaminophen Ur Barbiturates Screen NEGATIVE Ur Tricyclics Screen NEGATIVE Ur Phencyclidine Scrn NEGATIVE Ur Amphetamine Screen NEGATIVE U Methamphetamines Scrn NEGATIVE U Benzodiazepines Scrn NEGATIVE Urine Cocaine Screen NEGATIVE U Cannabinoids Screen NEGATIVE Ethyl Alcohol 04/17/22 19:32 WBC RBC Hgb Hct MCV MCH MCHC RDW Plt Count MPV Neut # (Auto) Lymph # (Auto) [place] # (Auto) Eos # (Auto) Baso # (Auto) Absolute Nucleated RBC Nucleated RBC % VBG pH VBG pCO2 VBG pO2 VBG HCO3 VBG Total CO2 VBG O2 Saturation VBG Base Excess Sodium Potassium Chloride Carbon Dioxide Anion Gap BUN Creatinine Estimated GFR (MDRD) Glucose Lactic Acid Calcium Magnesium Total Bilirubin AST ALT Alkaline Phosphatase Total Creatine Kinase Total Protein Albumin Globulin Albumin/Globulin Ratio TSH Urine Color Urine Clarity Urine pH Ur Specific [place] Urine Protein Urine Glucose (UA) Urine Ketones Urine Occult Blood Urine Nitrite Urine Bilirubin Urine Urobilinogen Ur Leukocyte Esterase Urine RBC Urine WBC Ur Squamous Epith Cells Amorphous Sediment Urine Bacteria Ur Microscopic Review Urine Culture Comments Nasal Adenovirus (PCR) NOT DETECTED Nasal B. parapertussis DNA (PCR) NOT DETECTED Nasal Coronavir 229E PCR NOT DETECTED Nasal Coronavir HKU1 PCR NOT DETECTED Nasal Coronavir NL63 PCR NOT DETECTED Nasal Coronavir OC43 PCR NOT DETECTED Nasal Enterovir/Rhinovir PCR NOT DETECTED Nasal Influenza B PCR NOT DETECTED Nasal Influenza A PCR NOT DETECTED Nasal Parainfluen 1 PCR NOT DETECTED Nasal Parainfluen 2 PCR NOT DETECTED Nasal Parainfluen 3 PCR NOT DETECTED Nasal Parainfluen 4 PCR NOT DETECTED Nasal RSV (PCR) NOT DETECTED Nasal B.pertussis DNA PCR NOT DETECTED Nasal C.pneumoniae (PCR) NOT DETECTED Jaya Human Metapneumo PCR NOT DETECTED Nasal M.pneumoniae (PCR) NOT DETECTED Nasal SARS-CoV-2 (PCR) NOT DETECTED Salicylates Urine Opiates Screen Ur Oxycodone Screen Urine Methadone Screen Ur Propoxyphene Screen Acetaminophen Ur Barbiturates Screen Ur Tricyclics Screen Ur Phencyclidine Scrn Ur Amphetamine Screen U Methamphetamines Scrn U Benzodiazepines Scrn Urine Cocaine Screen U Cannabinoids Screen Ethyl Alcohol PD MEDICAL DECISION MAKING - ED course ED course: 66-year-old woman presents with an exacerbation of altered mental status with leukocytosis and bacteriuria. Review of culture from her urine dated April 03 reviewed, a fairly hurtado resistant E. coli, and cefepime chosen. She will need admission, unfortunately the hospital is full and she will board in the emergency department pending improvement or bed availability. She was given a single dose of Diflucan for her fairly bad skin candidiasis, she spat this out so was given IV. Departure - Departure Disposition: 66 [facility] DC/Xfer Clinical Impression: Chronic HFrEF (heart failure with reduced ejection fraction), Encephalopathy UTI (urinary tract infection) Qualifiers: Urinary tract infection type: site unspecified Hematuria presence: without hematuria Qualified Code(s): N39.0 - Urinary tract infection, site not specified Leukocytosis Qualifiers: Leukocytosis type: leukemoid reaction Qualified Code(s): D72.823 - Leukemoid reaction Condition: Serious
[2022-04-17 19:28] LABS: BASOPHILS # (AUTO) 0.2 10^3/uL (0.0-0.1); EOSINOPHILS % (AUTO) 0.2 %; HCT - HEMATOCRIT 43.1 % (37.0-47.0); HGB - HEMOGLOBIN 13.6 g/dL (12.0-16.0); LYMPHOCYTES # (AUTO) 3.6 10^3/uL (1.5-3.5); LYMPHOCYTES % (AUTO) 21.9 %; MEAN CORPUSCULAR HGB CONC 31.6 g/dL (32.0-36.0); MEAN CORPUSCULAR VOLUME 88.9 fL (81.0-99.0); MEAN PLATELET VOLUME 10.1 fL (7.9-10.8); MONOCYTES # (AUTO) 1.1 10^3/uL (0.0-1.0); NEUTROPHILS # (AUTO) 11.3 10^3/uL (1.5-6.6); NEUTROPHILS % (AUTO) 69.3 %; PLT - PLATELET COUNT 467 10^3/uL (130-450); RED BLOOD COUNT 4.85 10^6/uL (4.20-5.40); RED CELL DISTRIBUTION WIDTH 15.6 % (12.0-15.0); WHITE BLOOD COUNT 16.3 x10^3/uL (4.8-10.8)
[2022-04-17 19:36] LABS: VBG BASE EXCESS 4.3 mmol/L (-2 - +2); VBG HCO3 29.2 mmol/L (23-28); VBG PCO2 44.3 mmHg (41-51); VBG PH 7.437 (7.31-7.41); VBG PO2 31.5 mmHg (25-47); VBG TOTAL CO2 30.6 mmol/L (24-29)
[2022-04-17 19:37] LABS: VBG OXYGEN SATURATION 63.4 % (60-80)
[2022-04-17 19:41] LABS: ACETAMINOPHEN < 10 ug/mL (10-30); ALBUMIN 4.3 g/dL (3.2-5.5); ALKALINE PHOSPHATASE 111 IU/L (42-121); ALT ALANINE AMINOTRANSFERASE 19 IU/L (10-60); AST ASPARTATE AMINOTRANSFERASE 22 IU/L (10-42); BILIRUBIN,TOTAL 0.5 mg/dL (0.2-1.0); BUN - BLOOD UREA NITROGEN 48 mg/dL (6-20); CALCIUM 10.3 mg/dL (8.5-10.3); CARBON DIOXIDE - CO2 29 mmol/L (21-32); CHLORIDE 100 mmol/L (101-111); CK- CREATINE KINASE 111 IU/L (22-269); CREATININE 2.2 mg/dL (0.4-1.0); ETOH - ETHANOL < 5.0 mg/dL; GFR - MDRD 22 (>89); GLUCOSE 123 mg/dL (70-100); MAGNESIUM 1.8 mg/dL (1.7-2.8); POTASSIUM 3.9 mmol/L (3.5-5.0); SALICYLATE < 6.0 mg/dL; SODIUM 144 mmol/L (135-145); TOTAL PROTEIN 8.8 g/dL (6.7-8.2)
[2022-04-17 19:49] LABS: MUDS CUTOFF CONCENTRATIONS CUTOFF CONC BELOW:
[2022-04-17] MEDS ORDERED: FLUCONAZOLE 100 MG TABLET PO STA (19:50)
[2022-04-17 19:51] LABS: BILIRUBIN,URINE NEGATIVE (NEGATIVE); GLUCOSE, URINE (UA) NEGATIVE (NEGATIVE); KETONES,URINE (UA) NEGATIVE (NEGATIVE); LEUKOCYTE ESTERASE, URINE SMALL (NEGATIVE); NITRITE,URINE NEGATIVE (NEGATIVE); OCCULT BLOOD,URINE NEGATIVE (NEGATIVE); PROTEIN,URINE NEGATIVE (NEGATIVE); UROBILINOGEN,URINE 0.2 (NORMAL) E.U./dL (NORMAL)
[2022-04-17 19:56] LABS: CLARITY,URINE CLOUDY (CLEAR)
[2022-04-17 20:00] LABS: AMORPHOUS SEDIMENT,UR Moderate /LPF; BACTERIA,URINE Many /HPF (None Seen); RBC,URINE 0-5 /HPF (0-5); SQUAMOUS EPITHELIAL CELL,UR MOD Squamous (<= Few); WBC,URINE >25 /HPF (0-5)
[2022-04-17 20:04] LABS: AMPHETAMINE SCREEN,URINE NEGATIVE (NEGATIVE); BARBITURATE SCREEN,UR NEGATIVE (NEGATIVE); BENZODIAZEPINES SCREEN, URINE NEGATIVE (NEGATIVE); COCAINE SCREEN URINE NEGATIVE (NEGATIVE); METHADONE SCREEN, URINE NEGATIVE (NEGATIVE); METHAMPHETAMINES SCREEN, URINE NEGATIVE (NEGATIVE); OPIATE SCREEN, URINE NEGATIVE (NEGATIVE); OXYCODONE SCREEN, URINE NEGATIVE (NEGATIVE); PROPOXYPHENE SCREEN, URINE NEGATIVE (NEGATIVE); THC CANNABINOID SCREEN, URINE NEGATIVE (NEGATIVE); TRICYCLIC ANTIDEPRESSANT,URINE NEGATIVE (NEGATIVE)
[2022-04-17] MEDS ORDERED: SODIUM CHLORIDE 0.9% 1,000 ML IV STA (20:12)
[2022-04-17] MEDS ORDERED: ONDANSETRON 4 MG/2 ML VIAL IVP PRN (20:15)
[2022-04-17] MEDS ORDERED: CEFEPIME 2 GM in SODIUM CHLORIDE 0.9% MINIBAG 100 ML IV STA (20:16)
[2022-04-17] MEDS ORDERED: FLUCONAZOLE 200 MG/100 ML 100 ML IV ONE (20:17)
[2022-04-17 20:41] LABS: B. PARAPERTUSSIS- RESP PCR PAN NOT DETECTED; B. PERTUSSIS- RESP PCR PANEL NOT DETECTED; C. PNEUMONIAE- RESP PCR PANEL NOT DETECTED; CORONAVIRUS 229E-RESP PCR NOT DETECTED; CORONAVIRUS HKU1-RESP PCR NOT DETECTED; CORONAVIRUS NL63-RESP PCR NOT DETECTED; CORONAVIRUS OC43-RESP PCR NOT DETECTED; HUMAN METAPNEUMOVIRUS NOT DETECTED; INFLUENZA A- RESP PCR PANEL NOT DETECTED; INFLUENZA B - RESP PCR PANEL NOT DETECTED; M. PNEUMONIAE- RESP PCR PANEL NOT DETECTED; PARAINFLUENZA VIRUS 1 NOT DETECTED; PARAINFLUENZA VIRUS 2 NOT DETECTED; PARAINFLUENZA VIRUS 3 NOT DETECTED; PARAINFLUENZA VIRUS 4 NOT DETECTED; RHINOVIRUS/ENTEROVIRUS NOT DETECTED; RSV- RESP PCR PANEL NOT DETECTED; SARS-CoV-2 -RESP PCR PANEL NOT DETECTED
[2022-04-17] MEDS: CEFEPIME 2 GM in SODIUM CHLORIDE 0.9% MINIBAG 100 ML IV SCH (20:45)
[2022-04-17] MEDS ORDERED: LORazepam 2 MG/ML VIAL IVP STA (20:59)
--- NOTE | 2022-04-17 22:12 | CT Report ---
PROCEDURE: HEAD WO INDICATIONS: ams TECHNIQUE: Noncontrast 4.5 mm thick angled axial sections acquired from the foramen magnum to the vertex. For r adiation dose reduction, the following was used: automated exposure control, adjustment of mA and/or kV according to patient size. COMPARISON: Head CT 12/20/2021. FINDINGS: Image quality: There is extensive motion artifact markedly limiting evaluation. CSF spaces: There is mild cerebral volume loss with prominence of the ventricles and sulci. Basal ci sterns are patent. Brain: Evaluation is nondiagnostic inferior to the level of the corpus callosum due to extensive mot ion artifact. No gross intracranial hematoma collections, mass, or mass effect. There are subcortical and periventricular white matter hypodensities consistent with chronic small vessel ischemic changes . Skull and face: Calvarium and visualized facial bones appear grossly intact with evaluation markedl y limited by motion artifact Sinuses: Visualized sinuses and mastoids are clear. IMPRESSION: 1. Markedly limited study with nondiagnostic evaluation of the brain inferior to the level of the cor pus callosum. Recommend a repeat study when clinically feasible. Reviewed by: Tyrone Alarcon MD on 04/17/2022 10:10 PM PST Approved by: Tyrone Alarcon MD on 04/17/2022 10:10 PM PST Station ID: [id number]
[2022-04-17] MEDS ORDERED: MORPHINE 2 MG/ML CARPUJECT IVP STA (23:13)
[2022-04-17] MEDS: D5.45NS W/20 MEQ KCL 1,000 ML IV SCH (23:37)
[2022-04-18] MEDS ORDERED: NYSTATIN CREAM 15 GM TUBE TOP STA (01:56)
[2022-04-18] MEDS: MORPHINE 2 MG/ML CARPUJECT IVP PRN ×3 (01:58→16:40)
[2022-04-18] MEDS ORDERED: MORPHINE 2 MG/ML CARPUJECT ONE (01:58)
[2022-04-18 05:26] LABS: BASOPHILS # (AUTO) 0.1 10^3/uL (0.0-0.1); BASOPHILS % (AUTO) 1.1 %; EOSINOPHILS % (AUTO) 0.2 %; HCT - HEMATOCRIT 37.1 % (37.0-47.0); HGB - HEMOGLOBIN 11.7 g/dL (12.0-16.0); LYMPHOCYTES # (AUTO) 3.5 10^3/uL (1.5-3.5); LYMPHOCYTES % (AUTO) 31.6 %; MEAN CORPUSCULAR HEMOGLOBIN 28.5 pg (27.0-31.0); MEAN CORPUSCULAR HGB CONC 31.5 g/dL (32.0-36.0); MEAN CORPUSCULAR VOLUME 90.3 fL (81.0-99.0); MEAN PLATELET VOLUME 9.9 fL (7.9-10.8); MONOCYTES % (AUTO) 9.3 %; NEUTROPHILS # (AUTO) 6.3 10^3/uL (1.5-6.6); NEUTROPHILS % (AUTO) 57.4 %; PLT - PLATELET COUNT 371 10^3/uL (130-450); RED BLOOD COUNT 4.11 10^6/uL (4.20-5.40); RED CELL DISTRIBUTION WIDTH 15.9 % (12.0-15.0)
[2022-04-18 05:33] LABS: CALCIUM 9.3 mg/dL (8.5-10.3); CREATININE 1.7 mg/dL (0.4-1.0); POTASSIUM 4.1 mmol/L (3.5-5.0)
[2022-04-18] MEDS: PANTOPRAZOLE 40 MG VIAL IVP SCH (06:32)
[2022-04-18] MEDS: D5.45NS W/20 MEQ KCL 1,000 ML IV SCH ×2 (06:37→14:41)
[2022-04-18] MEDS ORDERED: PANTOPRAZOLE 40 MG TABLET PO SCH (07:00)
--- NOTE | 2022-04-18 07:21 | ED Physician Documentation ---
ED Addendum - Addendum Addendum: 04/18/22 07:20 Patient endorsed to me by Dr. Whitney at 10pm shift change. JACQUES. Patient endorsed to Dr. Zuluaga at 7am shift change.
[2022-04-18] MEDS ORDERED: FLUCONAZOLE 100 MG TABLET PO STA (08:29)
--- NOTE | 2022-04-18 08:32 | ED Physician Documentation ---
ED Addendum - Addendum Addendum: 04/18/22 08:29 The patient was lightly sleeping on my exam. She roused easily just to voice and light tactile. She was able to open her eyes and state her name and location being in hospital in the ER. She does not know day of the week. She denied any pains of headache, chest pain, belly pain. I asked if she is hungry and she said yes. She was slow in responses and very simple and it took questioning 2 or 3 times to get an answer with initially a blank stare and then would answer. So was not a brisk alertness at all. No focal deficits noted on extremity movement. Abdomen soft nontender. Lungs are clear. Heart is regular. Extremities are symmetric and movement. At this point she states she would like some juice. We will try us fluid challenge and perhaps another oral Diflucan. She had received IV antibiotics yesterday so I would not see [facility] in repeating her urine test at this time. No focal deficits and no headache so unclear if a repeat CT scan indicated as yet. We will wait for further clearing of symptoms.
[2022-04-18] MEDS: CEFEPIME 2 GM in SODIUM CHLORIDE 0.9% MINIBAG 100 ML IV SCH ×2 (09:07→21:38)
--- NOTE | 2022-04-18 20:09 | ED Physician Documentation ---
ED Addendum - Addendum Addendum: 04/18/22 20:09 A bed is opened up on the floor, I presented the case to Dr. Cardoso, telehealth hospitalist. She requests an EKG and troponin which was ordered.
[2022-04-18] MEDS ORDERED: ACETAMINOPHEN 325 MG TABLET PO PRN (20:34)
[2022-04-18] MEDS ORDERED: SODIUM CHLORIDE FLUSH 0.9% 10 ML SYRINGE IVP PRN (20:34)
--- NOTE | 2022-04-18 21:11 | HISTORY & PHYSICAL EXAMINATION ---
Chief Complaint - Chief Complaint Chief Complaint: altered mental status History of Present Illness - Admitted From Admitted From:: ED - History Obtained From Records Reviewed: chart review History obtained from: ED physician - History of Present Illness HPI Comment/Other: 66yo F with pmhx of seizure disorder, coronary disease, hypothyroidism, COPD, multiple sclerosis, HFrEF 35-40% presents to ED with altered mental status. Pt has had multiple admissions to ED with similar complaint. History unable to obtain from patient as she is only AOx1. History mostly obtained from ED physician. No documented complaints of pain anywhere, no chest pain,abdominal pain, fever, chills, nausea, vomiting ,diarrhea. In ED her UA positive. 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 In ED she received IV cepfeime and diflucan for her fungal skin rash. Her labs are noted to have elevated WBC, Bandemia, Creatine. She was placed on IVF her creatinine improved. Patient has been boarding in ED due to hospital being full now [facility] requested to admit pt as there is now an open bed. 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 Review of prior records revealed that her father from bone cancer when she was quite young. Her mother is and had a history of heart disease and lung cancer. She has brother who also from bone cancer and another brother who has atrial fibrillation. Living Situation: Alone Social History Notes: Unable to update the social history given her altered mental status but review of prior records revealed that she is a smoker and does not have a history of alcohol abuse. There is a remote history of LSD use back in the 1970s. - Substance History Use: Uses substance without health or social issues: Tobacco - POLST Patient has POLST: No POLST Status: Full Code Meds/Allgy - Home Medications Home Medications: Ambulatory Orders Medication Instructions Recorded Confirmed Levothyroxine Sodium 50 mcg PO QDAC 07/18/19 04/03/22 Atorvastatin [Lipitor] 40 mg PO QPM #0 12/21/20 04/03/22 Levetiracetam [Keppra] 500 mg PO BID 04/16/21 04/03/22 Acetaminophen [Acetaminophen Extra 500 mg PO QID PRN #40 tablet 03/24/22 04/03/22 Strength] Cholestyramine (with Sugar) 1 packet PO DAILY 03/24/22 04/03/22 [Cholestyramine Packet] Clopidogrel [Plavix] 75 mg DAILY 03/24/22 04/03/22 Metoprolol Succinate [Kapspargo 25 mg DAILY 03/24/22 04/03/22 Sprinkle] Baclofen [Lioresal] 10 mg PO DAILY 04/03/22 04/03/22 Furosemide [Lasix] 20 mg PO DAILY 04/03/22 04/03/22 Losartan Potassium 25 mg PO DAILY 04/03/22 04/03/22 Potassium Chloride 10 meq PO BID 04/03/22 04/03/22 Sulfamethox/Trimeth 800/160 1 each PO BID #4 tablet 04/06/22 [Bactrim Ds 800/160] - Allergies Allergies/Adverse Reactions: Allergies Allergy/AdvReac Type Severity Reaction Status Date / Time No Known Drug Allergies Allergy Verified 04/17/22 19:07 Review of Systems - All Other Systems All Other Systems: reports: Reviewed and negative Exam - Vital Signs Reviewed Vital Signs: Yes Vital Signs: Vital Signs x48h Temp Pulse Resp BP Pulse Ox 04/18/22 19:20 36.8 C 69 17 113/75 98 04/18/22 19:13 16 04/18/22 18:19 36.7 C 68 16 126/77 100 - Physical Exam General Appearance: positive: No acute distress Eyes Bilateral: positive: Normal inspection, PERRL, EOMI Respiratory: positive: No respiratory distress, Breath sounds nml Cardiovascular: positive: Regular rate & rhythm Abdomen: positive: Non-tender Skin: positive: Other (diffuse rash on back) Neurologic/Psychiatric: positive: Oriented x3 Conclusion/Plan - Lab Results Fish Bones: 04/18/22 05:20 04/18/22 05:20 - EKG Results EKG Interpreted Independently: Yes - Other Other Results/Comments: A/P: 66yoF admitted for: #acute metaboic encephalopathy 2/2 to likly UTI #leukocytosis 2/2 above #bandemia 2/2 above -admit to obs -CTH wo contrsat neg -pt has hx of resistant Ecoli UTI, received IV cefepime in ED will continue -neurochecks -f/u blood cx, urine cx -PT to eval ambulation #KJ on CKD Cr now 1.7 downtrending from 2.2 received IVF in ED -will hold home med losartan avoid nephrotoxic meds, if trending upwards consider renal US/ nephro consult Erwin Chronic issues: CAD s/p CT HFrEF 35-40% HTN Hypothyroidism hx of seizures HLD -cont home meds w hold parameters FEN: cardiac diet replete electrolytes prn dvt ppx: scds, heparin subq code: presumed full code Core Measures - DVT/VTE - Prophylaxis VTE/DVT Device ordered at admit?: Yes Telemedicine Consult Details - Provider Location & Consult Time Telemedicine consultation conducted via videoconferencing?: Yes List names and roles of persons who participated in consult:: Ashley Ambrocio MD Time Telemedicine consult began:: 21:32
[2022-04-18] MEDS: levETIRAcetam 250 MG TABLET PO SCH (21:58)
[2022-04-18] MEDS: HEPARIN 5,000 UNIT/ML VIAL SUBQ SCH (21:59)
[2022-04-18] MEDS: ACETAMINOPHEN 500 MG TABLET PO PRN (22:18)
[2022-04-19] MEDS: SODIUM CHLORIDE FLUSH 0.9% 10 ML SYRINGE IVP SCH ×3 (02:00→16:24)
[2022-04-19] MEDS: ACETAMINOPHEN 500 MG TABLET PO PRN ×2 (04:30→14:45)
[2022-04-19 05:49] LABS: BASOPHILS # (AUTO) 0.1 10^3/uL (0.0-0.1); BASOPHILS % (AUTO) 1.4 %; EOSINOPHILS % (AUTO) 0.2 %; HCT - HEMATOCRIT 36.6 % (37.0-47.0); LYMPHOCYTES # (AUTO) 3.3 10^3/uL (1.5-3.5); MEAN CORPUSCULAR HEMOGLOBIN 27.8 pg (27.0-31.0); MEAN CORPUSCULAR HGB CONC 30.1 g/dL (32.0-36.0); MEAN CORPUSCULAR VOLUME 92.4 fL (81.0-99.0); MEAN PLATELET VOLUME 9.9 fL (7.9-10.8); MONOCYTES # (AUTO) 0.7 10^3/uL (0.0-1.0); MONOCYTES % (AUTO) 7.9 %; NEUTROPHILS # (AUTO) 4.2 10^3/uL (1.5-6.6); NEUTROPHILS % (AUTO) 50.1 %; PLT - PLATELET COUNT 340 10^3/uL (130-450); RED BLOOD COUNT 3.96 10^6/uL (4.20-5.40); RED CELL DISTRIBUTION WIDTH 16.1 % (12.0-15.0); WHITE BLOOD COUNT 8.4 x10^3/uL (4.8-10.8)
[2022-04-19 05:57] LABS: CALCIUM 9.2 mg/dL (8.5-10.3); CREATININE 1.3 mg/dL (0.4-1.0); POTASSIUM 4.2 mmol/L (3.5-5.0)
[2022-04-19] MEDS: LEVOTHYROXINE 25 MCG TABLET PO SCH (06:02)
[2022-04-19] MEDS: PANTOPRAZOLE 40 MG VIAL IVP SCH (07:12)
[2022-04-19] MEDS: FUROSEMIDE 20 MG TABLET PO SCH (08:03)
[2022-04-19] MEDS: HEPARIN 5,000 UNIT/ML VIAL SUBQ SCH ×2 (08:03→20:34)
[2022-04-19] MEDS: METOPROLOL SUCCINATE 25 MG TABLET PO SCH (08:04)
[2022-04-19] MEDS: levETIRAcetam 250 MG TABLET PO SCH ×2 (08:04→20:31)
[2022-04-19] MEDS: CLOPIDOGREL 75 MG TABLET PO SCH (08:04)
[2022-04-19] MEDS: CEFEPIME 2 GM in SODIUM CHLORIDE 0.9% MINIBAG 100 ML IV SCH ×2 (08:05→20:35)
[2022-04-19] MEDS: MORPHINE 2 MG/ML CARPUJECT IVP PRN ×2 (16:24→20:35)
--- NOTE | 2022-04-19 18:09 | PROVIDER PROGRESS NOTE ---
Assessment/Plan - Problem List (1) UTI (urinary tract infection) Qualifiers: Urinary tract infection type: site unspecified Hematuria presence: without hematuria Qualified Code(s): N39.0 - Urinary tract infection, site not specified Assessment/Plan: She has had multiple presentations the same way. Her urinalysis is abnormal. She has been started on empiric IV antibiotic. Thus far the blood cultures are negative Thus far urine culture is growing a bacteria Plan: Continue with empiric antibiotics Await culture results to tailor antibiotics (2) Encephalopathy Assessment/Plan: Improving with antibx and iv fluids Plan: Continue these (3) KJ (acute kidney injury) Assessment/Plan: Improving with IV hydration Plan: Continue IV hydration Avoid nephrotoxins Follow BMP daily (4) Fungal rash of torso Assessment/Plan: Images have been taken to document this. She has a raise confluent red rash of her lower spine, both buttocks and posterior thighs Plan: We will continue Diflucan p.o. Will also add topical nystatin powder - Current Meds Current Meds: Current Medications Generic Name Dose Route Start Last Admin Trade Name Freq PRN Reason Stop Dose Admin Acetaminophen 1,000 mg 04/17/22 20:15 04/19/22 14:45 Acetaminophen 500 Mg Tablet PO 1,000 mg Q6H PRN Administration Mild Pain Or Fever>38c(100.4f) Clopidogrel Bisulfate 75 mg 04/19/22 09:00 04/19/22 08:04 Clopidogrel 75 Mg Tablet PO 75 mg DAILY JIN Administration Furosemide 20 mg 04/19/22 09:00 04/19/22 08:03 Furosemide 20 Mg Tablet PO 20 mg DAILY JIN Administration Heparin Sodium (Porcine) 5,000 unit 04/18/22 21:00 04/19/22 08:03 Heparin 5,000 Unit/Ml Vial SUBQ 5,000 unit BID JIN Administration Cefepime HCl 2 gm/ Sodium 100 mls @ 200 mls/hr 04/17/22 21:00 04/19/22 09:02 Chloride IV Infused BID JIN Infusion Levetiracetam 500 mg 04/18/22 22:00 04/19/22 08:04 Levetiracetam 250 Mg Tablet PO 500 mg BID JIN Administration Levothyroxine Sodium 50 mcg 04/19/22 07:00 04/19/22 06:02 Levothyroxine 25 Mcg Tablet PO 50 mcg QDAC JIN Administration Metoprolol Succinate 25 mg 04/19/22 09:00 04/19/22 08:04 Metoprolol Succinate 25 Mg Tablet PO 25 mg DAILY JIN Administration Morphine Sulfate 2 mg 04/18/22 01:55 04/19/22 16:24 Morphine 2 Mg/Ml Carpuject IVP 2 mg Q3H PRN Administration PAIN Pantoprazole Sodium 40 mg 04/18/22 07:00 04/19/22 07:12 Pantoprazole 40 Mg Vial IVP 04/24/22 23:59 Not Given ONCE JIN Sodium Chloride 10 ml 04/19/22 01:00 04/19/22 16:24 Sodium Chloride Flush 0.9% 10 Ml Syringe IVP 10 ml 0100,0900,1700 JIN Administration - Lab Result Fish Bone Diagrams: 04/20/22 05:31 04/20/22 05:31 Subjective - Subjective Patient Reports: Resting Comfortably Nursing Reports: Other (She was screaming out then did not know what she was going to ask the RN) Objective Vital Signs: Vital Signs - 24 hr 04/18/22 04/18/22 04/18/22 18:19 19:13 19:20 Temperature 36.7 C 36.8 C Heart Rate 68 69 Heart Rate [ Brachial] Heart Rate [ Monitoring electrodes] Respiratory 16 16 17 Rate Blood Pressure 126/77 113/75 Blood Pressure [Right Brachial artery] O2 Saturation 100 98 04/18/22 04/19/22 04/19/22 21:32 00:00 09:15 Temperature 36.8 C 36.9 C 37.0 C Heart Rate Heart Rate [ 80 Brachial] Heart Rate [ 78 Monitoring electrodes] Respiratory 16 16 20 Rate Blood Pressure Blood Pressure 106/55 L 116/71 103/69 [Right Brachial artery] O2 Saturation 99 96 96 04/19/22 16:00 Temperature 36.8 C Heart Rate Heart Rate [ 70 Brachial] Heart Rate [ Monitoring electrodes] Respiratory 20 Rate Blood Pressure Blood Pressure 118/61 [Right Brachial artery] O2 Saturation 98 Oxygen O2 Source [With Activity] Room air O2 Source [Without Activity] Room air O2 Source Room air I&O (Last 24 Hrs): Intake and Output Totals x24h 04/17/22 04/18/22 04/19/22 23:59 23:59 23:59 Intake Total 1200 3004 1370 Output Total 1300 Balance 1200 3004 70 General: Alert, No acute distress HEENT: Mucous membr. moist/pink Neck: Supple Neuro: Alert, Non Focal, Other (Less confused and less agitatied) Cardiovascular: Regular rate Respiratory: No respiratory distress Abdomen: Soft Extremities: Other (trace leg edema. Red rash of buttocks and posterior thighs.) - Results Results: Laboratory Results WBC 8.4 x10^3/uL (4.8-10.8) 04/19/22 05:38 RBC 3.96 10^6/uL (4.20-5.40) L 04/19/22 05:38 Hgb 11.0 g/dL (12.0-16.0) L 04/19/22 05:38 Hct 36.6 % (37.0-47.0) L 04/19/22 05:38 MCV 92.4 fL (81.0-99.0) 04/19/22 05:38 MCH 27.8 pg (27.0-31.0) 04/19/22 05:38 MCHC 30.1 g/dL (32.0-36.0) L 04/19/22 05:38 RDW 16.1 % (12.0-15.0) H 04/19/22 05:38 Plt Count 340 10^3/uL (130-450) 04/19/22 05:38 MPV 9.9 fL (7.9-10.8) 04/19/22 05:38 Neut # (Auto) 4.2 10^3/uL (1.5-6.6) 04/19/22 05:38 Lymph # (Auto) 3.3 10^3/uL (1.5-3.5) 04/19/22 05:38 Whiteside # (Auto) 0.7 10^3/uL (0.0-1.0) 04/19/22 05:38 Eos # (Auto) 0.0 10^3/uL (0.0-0.7) 04/19/22 05:38 Baso # (Auto) 0.1 10^3/uL (0.0-0.1) 04/19/22 05:38 Absolute Nucleated RBC 0.00 x10^3/uL 04/19/22 05:38 Nucleated RBC % 0.0 /100WBC 04/19/22 05:38 VBG pH 7.437 (7.31-7.41) H 04/17/22 19:20 VBG pCO2 44.3 mmHg (41-51) 04/17/22 19:20 VBG pO2 31.5 mmHg (25-47) 04/17/22 19:20 VBG HCO3 29.2 mmol/L (23-28) H 04/17/22 19:20 VBG Total CO2 30.6 mmol/L (24-29) H 04/17/22 19:20 VBG O2 Saturation 63.4 % (60-80) 04/17/22 19:20 VBG Base Excess 4.3 mmol/L (-2 - +2) H 04/17/22 19:20 Sodium 142 mmol/L (135-145) 04/19/22 05:38 Potassium 4.2 mmol/L (3.5-5.0) 04/19/22 05:38 Chloride 112 mmol/L (101-111) H 04/19/22 05:38 Carbon Dioxide 21 mmol/L (21-32) 04/19/22 05:38 Anion Gap 9.0 (6-13) 04/19/22 05:38 BUN 25 mg/dL (6-20) H 04/19/22 05:38 Creatinine 1.3 mg/dL (0.4-1.0) H 04/19/22 05:38 Estimated GFR (MDRD) 41 (>89) L 04/19/22 05:38 Glucose 85 mg/dL (70-100) 04/19/22 05:38 Lactic Acid 1.5 mmol/L (0.5-2.2) 04/17/22 19:20 Calcium 9.2 mg/dL (8.5-10.3) 04/19/22 05:38 Magnesium 1.8 mg/dL (1.7-2.8) 04/17/22 19:20 Total Bilirubin 0.5 mg/dL (0.2-1.0) 04/17/22 19:20 AST 22 IU/L (10-42) 04/17/22 19:20 ALT 19 IU/L (10-60) 04/17/22 19:20 Alkaline Phosphatase 111 IU/L (42-121) 04/17/22 19:20 Total Creatine Kinase 111 IU/L (22-269) 04/17/22 19:20 Troponin I High Sens 15.0 ng/L (2.3-14.8) H* 04/18/22 20:18 Total Protein 8.8 g/dL (6.7-8.2) H 04/17/22 19:20 Albumin 4.3 g/dL (3.2-5.5) 04/17/22 19: Globulin 4.5 g/dL (2.1-4.2) H 04/17/22 19:20 Albumin/Globulin Ratio 1.0 (1.0-2.2) 04/17/22 19:20 TSH 4.42 uIU/mL (0.34-5.60) 04/17/22 19: Urine Color YELLOW 04/17/22 19:32 Urine Clarity CLOUDY (CLEAR) 04/17/22 19:32 Urine pH 6.0 PH (5.0-7.5) 04/17/22 19:32 Ur Specific [place] 1.025 (1.002-1.030) 04/17/22 19:32 Urine Protein NEGATIVE mg/dL (NEGATIVE) 04/17/22 19:32 Urine Glucose (UA) NEGATIVE mg/dL (NEGATIVE) 04/17/22 19: Urine Ketones NEGATIVE mg/dL (NEGATIVE) 04/17/22 19: Urine Occult Blood NEGATIVE (NEGATIVE) 04/17/22 19: Urine Nitrite NEGATIVE (NEGATIVE) 04/17/22 19:32 Urine Bilirubin NEGATIVE (NEGATIVE) 04/17/22 19:32 Urine Urobilinogen 0.2 (NORMAL) E.U./dL (NORMAL) 04/17/22 19:32 Ur Leukocyte Esterase SMALL (NEGATIVE) H 04/17/22 19:32 Urine RBC 0-5 /HPF (0-5) 04/17/22 19:32 Urine WBC >25 /HPF (0-5) H 04/17/22 19:32 Ur Squamous Epith Cells MOD Squamous (<= Few) H 04/17/22 19:32 Amorphous Sediment Moderate /LPF 04/17/22 19:32 Urine Bacteria Many /HPF (None Seen) H 04/17/22 19:32 Ur Microscopic Review INDICATED 04/17/22 19:32 Urine Culture Comments NOT INDICATED 04/17/22 19:32 Nasal Adenovirus (PCR) NOT DETECTED 04/17/22 19:32 Nasal B. parapertussis DNA (PCR) NOT DETECTED 04/17/22 19:32 Nasal Coronavir 229E PCR NOT DETECTED 04/17/22 19:32 Nasal Coronavir HKU1 PCR NOT DETECTED 12 19:32 Nasal Coronavir NL63 PCR NOT DETECTED 04/17/22 19:32 Nasal Coronavir OC43 PCR NOT DETECTED 04/17/22 19:32 Nasal Enterovir/Rhinovir PCR NOT DETECTED 04/17/22 19:32 Nasal Influenza B PCR NOT DETECTED 04/17/22 19:32 Nasal Influenza A PCR NOT DETECTED 04/17/22 19:32 Nasal Parainfluen 1 PCR NOT DETECTED 04/17/22 19:32 Nasal Parainfluen 2 PCR NOT DETECTED 04/17/22 19:32 Nasal Parainfluen 3 PCR NOT DETECTED 04/17/22 19:32 Nasal Parainfluen 4 PCR NOT DETECTED 04/17/22 19:32 Nasal RSV (PCR) NOT DETECTED 04/17/22 19:32 Nasal B.pertussis DNA PCR NOT DETECTED 04/17/22 19:32 Nasal C.pneumoniae (PCR) NOT DETECTED 04/17/22 19:32 Jaya Human Metapneumo PCR NOT DETECTED 04/17/22 19:32 Nasal M.pneumoniae (PCR) NOT DETECTED 04/17/22 19:32 Nasal SARS-CoV-2 (PCR) NOT DETECTED 04/17/22 19:32 Salicylates < 6.0 mg/dL 04/17/22 19:20 Urine Opiates Screen NEGATIVE (NEGATIVE) 04/17/22 19:32 Ur Oxycodone Screen NEGATIVE (NEGATIVE) 04/17/22 19:32 Urine Methadone Screen NEGATIVE (NEGATIVE) 04/17/22 19:32 Ur Propoxyphene Screen NEGATIVE (NEGATIVE) 04/17/22 19:32 Acetaminophen < 10 ug/mL (10-30) L 04/17/22 19:20 Ur Barbiturates Screen NEGATIVE (NEGATIVE) 04/17/22 19:32 Ur Tricyclics Screen NEGATIVE (NEGATIVE) 04/17/22 19:32 Ur Phencyclidine Scrn NEGATIVE (NEGATIVE) 04/17/22 19:32 Ur Amphetamine Screen NEGATIVE (NEGATIVE) 04/17/22 19:32 U Methamphetamines Scrn NEGATIVE (NEGATIVE) 04/17/22 19:32 U Benzodiazepines Scrn NEGATIVE (NEGATIVE) 04/17/22 19:32 Urine Cocaine Screen NEGATIVE (NEGATIVE) 04/17/22 19:32 U Cannabinoids Screen NEGATIVE (NEGATIVE) 04/17/22 19:32 Ethyl Alcohol < 5.0 mg/dL 04/17/22 19:20 - Procedures Procedures: Procedures INSERTION OF INFUSION DEV INTO SUP VENA CAVA, PERC APPROACH (12/10/21)
[2022-04-19] MEDS: NYSTATIN POWDER 15 GM TOP SCH (20:35)
[2022-04-19] MEDS ORDERED: ATORVASTATIN 40 MG TABLET PO SCH (21:00)
[2022-04-20] MEDS: SODIUM CHLORIDE FLUSH 0.9% 10 ML SYRINGE IVP SCH ×2 (00:24→08:01)
[2022-04-20] MEDS: MORPHINE 2 MG/ML CARPUJECT IVP PRN ×2 (00:24→05:57)
[2022-04-20] MEDS: LEVOTHYROXINE 25 MCG TABLET PO SCH (06:00)
[2022-04-20 06:03] LABS: BASOPHILS # (AUTO) 0.1 10^3/uL (0.0-0.1); BASOPHILS % (AUTO) 1.6 %; EOSINOPHILS % (AUTO) 0.1 %; HCT - HEMATOCRIT 39.1 % (37.0-47.0); HGB - HEMOGLOBIN 11.9 g/dL (12.0-16.0); LYMPHOCYTES # (AUTO) 3.4 10^3/uL (1.5-3.5); LYMPHOCYTES % (AUTO) 39.8 %; MEAN CORPUSCULAR HEMOGLOBIN 28.1 pg (27.0-31.0); MEAN CORPUSCULAR HGB CONC 30.4 g/dL (32.0-36.0); MEAN CORPUSCULAR VOLUME 92.4 fL (81.0-99.0); MEAN PLATELET VOLUME 10.2 fL (7.9-10.8); MONOCYTES # (AUTO) 0.6 10^3/uL (0.0-1.0); MONOCYTES % (AUTO) 6.9 %; NEUTROPHILS # (AUTO) 4.4 10^3/uL (1.5-6.6); NEUTROPHILS % (AUTO) 51.2 %; PLT - PLATELET COUNT 323 10^3/uL (130-450); RED BLOOD COUNT 4.23 10^6/uL (4.20-5.40); WHITE BLOOD COUNT 8.6 x10^3/uL (4.8-10.8)
[2022-04-20 06:38] LABS: CALCIUM 9.7 mg/dL (8.5-10.3); CREATININE 1.3 mg/dL (0.4-1.0); POTASSIUM 4.1 mmol/L (3.5-5.0)
[2022-04-20 07:37] VITALS: BP 108/56
[2022-04-20] MEDS: METOPROLOL SUCCINATE 25 MG TABLET PO SCH (08:00)
[2022-04-20] MEDS: levETIRAcetam 250 MG TABLET PO SCH (08:00)
[2022-04-20] MEDS: CLOPIDOGREL 75 MG TABLET PO SCH (08:00)
[2022-04-20] MEDS: CEFEPIME 2 GM in SODIUM CHLORIDE 0.9% MINIBAG 100 ML IV SCH (08:00)
[2022-04-20] MEDS: FUROSEMIDE 20 MG TABLET PO SCH (08:00)
[2022-04-20] MEDS: ACETAMINOPHEN 500 MG TABLET PO PRN (08:00)
[2022-04-20] MEDS: HEPARIN 5,000 UNIT/ML VIAL SUBQ SCH (08:01)
[2022-04-20] MEDS ORDERED: FLUCONAZOLE 100 MG TABLET PO SCH (09:00)
[2022-04-20] MEDS: PANTOPRAZOLE 40 MG VIAL IVP SCH (09:19)
[2022-04-20] MEDS: NYSTATIN POWDER 15 GM TOP SCH (10:55)
--- NOTE | 2022-04-20 11:30 | PHARMACY PROGRESS NOTE ---
- Best Possible Medication History Admit Date and Time: 04/18/222033 Processed by: Pharmacy Medication History completed: Yes Patient Interview: Completed Secondary Source(s): Insurance records (pt very poor historian. Confused and irritated. States she doesn't know or doesn't remember for most meds but able to state some names and dosages clearly of some other meds. Important to note that she firmly states she breaks no pills in half although her Metoprolol and Losartan...con't in addendum) As the person ultimately responsible for medication therapy, providers are able to order a medication from an existing home medication list in [facility] via the "Reconcile Routine" prior to Confirmation of that medication by therapeutic support staff. Such practice is discouraged except when the physician, in their clinical judgment, deems that a medical need exists for a medication without regard to previous use.
--- NOTE | 2022-04-20 11:34 | Discharge Plan ---
Discharge Plan Problem Reviewed?: Yes Disposition: Home Health Service Condition: Stable Prescriptions: Fluconazole [Diflucan] 100 mg PO DAILY #14 tab Nitrofurantoin [Macrobid] 100 mg PO BID #14 cap Nystatin [Nystop] 1 applic TOP BID #1 ea Diet: Low Sodium Activity Restrictions: Activity as Tolerated Shower Restrictions: No Assistance Devices: Walker Weight Bearing: Full Weight Health Concerns: You were in the hospital to treat a Urinary tract infection, which made you confused. The urine culture grew E. coli bacteria. You are being discharged home to take 1 week of oral Nitrofurantoin antibiotic twice a day. We also found that you have a bad fungal rash of your back and buttocks and thighs. You are being discharged home to take several weeks of oral Diflucan antifungal medicine once a day, and a new Nystatin powder to coat the skin there twice a day. These 3 new prescriptions were electronically sent to your [facility] in [place]. Our pharmacist noted that you are not taking your medicines correctly. PLEASE TAKE THE MEDICATIONS THE WAY THEY ARE SPELLED OUT ON THE LIST HERE. A referral was made for a Home Health Agency to come and help you with physical therapy, with activities of daily living, a bath aide, and a nurse to double check that you are taking your medicines correctly. You should have an appointment with your primary care provider, Dr. Ricardo in the next 1 to 2 weeks, for hospital follow-up visit. Plan of Treatment: As above. Care Goals: Improvement in symptoms and stabilization are the goals. Assessment: These instructions are provided as a reminder to the patient. Additional Instructions or Follow Up instructions: If you have new or worsening symptoms, call your Primary Care Provider for advice, or come to the ER. Follow-Up Care: Home Health - RN, Home Health - PT, Home Health - OT No Smoking: If you smoke, Please STOP! Call for help. Follow-up with: JOHN RICARDO MD [Physician No Access] -
[2022-04-20] MEDS ORDERED: NITROFURANTOIN MACRO 100 MG CAPSULE PO SCH (12:00)
--- NOTE | 2022-04-20 17:11 | DISCHARGE SUMMARY ---
Discharge Summary Admit Date: 04/18/22 Discharge Date: 04/20/22 Discharging Provider: Dr Divina Cesar Condition at Discharge: Stable Discharge Disposition: 06 [facility] Service - [facility] History of Present Illness: 66yo WF with pmhx of seizure disorder, coronary disease, hypothyroidism, COPD, HTN, multiple sclerosis, HFrEF 35-40% presents to ED with altered mental status. Pt has had multiple admissions to ED with similar complaint. History unable to obtain from patient as she is only AOx1. History mostly obtained from ED physician. No documented complaints of pain anywhere, no chest pain,abdominal p ain, fever, chills, nausea, vomiting ,diarrhea. She falls frequently at home. She calls out for help when she is confused. Neighbors find her and call an ambulance and this is how she presented again. In ED her UA was positive. 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 In ED she received IV cepfeime and diflucan for a fungal skin rash. Her labs are noted to have elevated WBC, Bandemia, elevated Creatine. She was placed on IVF her creatinine improved. Patient has been boarding in ED due to hospital being full. Now [facility] requested to admit pt as there is now an open bed. - HOSPITAL COURSE Hospital Course: (1) UTI (urinary tract infection) She has had multiple presentations the same way. She was started on empiric IV Cefepime, based on prior culture results. Her blood cx were neg. Her urine culture grew E coli. She was discharged home to take oral Nitrofurantoin, to which this E coli was sensitive to. (2) Metabolic Encephalopathy Improved with antibx and iv fluids (3) KJ (acute kidney injury) Improved with IV hydration (4) Fungal rash of torso Images were taken to document this extensive red, raised, confluent rash of both sides of her lower back, both buttocks and both upper, posterior thighs. She was started on Diflucan p.o.and topical nystatin powder and discharged on these. Also her chronic problems remained stable: seizure disorder, coronary disease, HTN, hypothyroidism, COPD, multiple sclerosis, HFrEF, and her meds were continued. - ALLERGIES Allergies/Adverse Reactions: Allergies Allergy/AdvReac Type Severity Reaction Status Date / Time No Known Drug Allergies Allergy Verified 04/17/22 19:07 - MEDICATIONS Home Medications: Ambulatory Orders Medication Instructions Recorded Confirmed Levothyroxine Sodium 50 mcg PO QDAC 07/18/19 04/20/22 Atorvastatin [Lipitor] 40 mg PO QPM #0 12/21/20 04/20/22 Levetiracetam [Keppra] 500 mg PO BID 04/16/21 04/20/22 Acetaminophen [Acetaminophen Extra 500 mg PO QID PRN #40 tablet 03/24/22 04/20/22 Strength] Cholestyramine (with Sugar) 1 packet PO DAILY 03/24/22 04/20/22 [Cholestyramine Packet] Baclofen [Lioresal] 10 mg PO DAILY 04/03/22 04/20/22 Losartan Potassium 12.5 mg PO DAILY 04/03/22 04/20/22 Aspirin [Aspirin EC] 81 mg PO DAILY 04/20/22 04/20/22 Diclofenac Potassium 75 mg PO BID PRN 04/20/22 04/20/22 Fluconazole [Diflucan] 100 mg PO DAILY #14 tab 04/20/22 Fluticasone [Flonase] 1 sprays WILLIE BID PRN 04/20/22 04/20/22 Nitrofurantoin [Macrobid] 100 mg PO BID #14 cap 04/20/22 Nystatin [Nystop] 1 applic TOP BID #1 ea 04/20/22 carvediloL [Coreg] 3.125 mg PO BID 04/20/22 04/20/22 oxyCODONE [Roxicodone] 7.5 mg PO Q6H PRN 04/20/22 04/20/22 - PHYSICAL EXAM AT DISCHARGE General Appearance: positive: No acute distress, Alert Eyes Bilateral: positive: Normal inspection, EOMI ENT: positive: ENT inspection nml, Other (Speech sounds forced) Neck: positive: Nml inspection, No JVD Respiratory: positive: Chest non-tender, No respiratory distress, Breath sounds nml Cardiovascular: positive: Regular rate & rhythm, No murmur (Distant heart sounds due to obesity) Abdomen: positive: Non-tender, No distention (Obese with a pannus) Skin: positive: Warm, Dry, Other (Large confluent red raised rash of bilateral sides of her lower back, both buttocks, both upper posterior thighs) Extremities: positive: Non-tender Neurologic/Psychiatric: positive: Oriented x3, Motor nml, Other (Voice sounds forced) - LABS Result Diagrams: 04/20/22 05:31 04/20/22 05:31
== END 2022-04-20 14:30 | disposition home health service (06) ==
LOC: EDUNIT# → ED 19:02 → MS2 04-18 20:34
PROVIDERS: ADMIT Family Medicine; ATTEND Internal Medicine
DX: N39.0 Urinary tract infection, site not specified (principal); B96.20 Unspecified Escherichia coli [E. coli] as the cause of diseases classified elsewhere; I13.0 Hypertensive heart and chronic kidney disease with heart failure and stage 1 through stage 4 chronic kidney disease, or unspecified chronic kidney disease; N18.9 Chronic kidney disease, unspecified; G93.41 Metabolic encephalopathy; B36.9 Superficial mycosis, unspecified; G40.909 Epilepsy, unspecified, not intractable, without status epilepticus; G35 Multiple sclerosis; D72.823 Leukemoid reaction; I50.22 Chronic systolic (congestive) heart failure; I25.10 Atherosclerotic heart disease of native coronary artery without angina pectoris; N17.9 Acute kidney failure, unspecified; E03.9 Hypothyroidism, unspecified; J44.9 Chronic obstructive pulmonary disease, unspecified; Z95.5 Presence of coronary angioplasty implant and graft; F17.200 Nicotine dependence, unspecified, uncomplicated; Z91.81 History of falling; Z20.822 Contact with and (suspected) exposure to COVID-19; I45.10 Unspecified right bundle-branch block; R94.31 Abnormal electrocardiogram [ECG] [EKG]; I25.2 Old myocardial infarction; E78.5 Hyperlipidemia, unspecified; Z79.02 Long term (current) use of antithrombotics/antiplatelets; Z79.899 Other long term (current) drug therapy
CPT/HCPCS: 36415; 51701; 70450; 80048; 80053; 80306; 80307; 81001; 82550; 82803; 83605; 83735; 84443; 84484; 85025; 87040; 87077; 87086; 87181; 87633; 93005; 96361; 96365; 96366; 96367; 96372; 96375; 96376; 97165; 99285; A9270; G0378; G0480; J2060; 80320; 80329; 81003

== ENCOUNTER → 2022-04-17 | Outpatient (CLI) | payer MEDICARE, MEDICAID | END | disposition EMS.NT | LOC: EMS 12:53 | DX: R45.1 Restlessness and agitation (principal); Z74.1 Need for assistance with personal care ==

== ENCOUNTER → 2022-04-17 | Outpatient (CLI) | payer MEDICARE, MEDICAID | END | disposition critical access hospital (66) | LOC: EMS 18:36 | DX: R46.89 Other symptoms and signs involving appearance and behavior (principal); R62.7 Adult failure to thrive | CPT/HCPCS: A0425; A0429 ==

== ENCOUNTER 2022-04-24 10:27 | Outpatient (CLI) | payer MEDICARE, MEDICAID | END 2022-04-24 10:28 | disposition critical access hospital (66) | LOC: EMS 10:27 | DX: R07.1 Chest pain on breathing (principal) | CPT/HCPCS: A0425; A0429 ==

== ENCOUNTER 2022-04-24 10:48 | Observation (INO) | payer MEDICARE, MEDICAID ==
--- NOTE | 2022-04-24 11:20 | ED Physician Documentation ---
PD HPI CHEST PAIN - Stated complaint Stated Complaint: CP - Chief complaint Chief Complaint: Cardiac - History obtained from History obtained from: Patient - Additional information Additional information: 66-year-old woman with history of coronary disease with stents in place, HFrEF presents with chest pain starting this morning at 7 AM. Sharp substernal pain that is nonradiating and worse with deep breathing. She is never had this before. She denies pedal edema or calf pain but note made that she was recently hospitalized for a few days for encephalopathy related to UTI which is not an uncommon occurrence. Review of Systems Ten Systems: 10 systems reviewed and negative Constitutional: denies: Fever, Chills Respiratory: reports: Dyspnea. 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: Other : Chronic bladder infection HEENT: None Psych: Depression, ADD/ADHD Musculoskeletal: Chronic back pain, Other Derm: Other - Past Surgical History Past Surgical History: Yes Ortho: Spine surgery /CURRICULUM DEVELOPER: Hysterectomy Cardiovascular: Coronary stent, Cardiac catheterization - Present Medications Home Medications: Ambulatory Orders Medication Instructions Recorded Confirmed Levothyroxine Sodium 50 mcg PO QDAC 07/18/19 04/20/22 Atorvastatin [Lipitor] 40 mg PO QPM #0 12/21/20 04/20/22 Levetiracetam [Keppra] 500 mg PO BID 04/16/21 04/20/22 Acetaminophen [Acetaminophen Extra 500 mg PO QID PRN #40 tablet 03/24/22 04/20/22 Strength] Cholestyramine (with Sugar) 1 packet PO DAILY 03/24/22 04/20/22 [Cholestyramine Packet] Baclofen [Lioresal] 10 mg PO DAILY 04/03/22 04/20/22 Losartan Potassium 12.5 mg PO DAILY 04/03/22 04/20/22 Aspirin [Aspirin EC] 81 mg PO DAILY 04/20/22 04/20/22 Diclofenac Potassium 75 mg PO BID PRN 04/20/22 04/20/22 Fluconazole [Diflucan] 100 mg PO DAILY #14 tab 04/20/22 Fluticasone [Flonase] 1 sprays WILLIE BID PRN 04/20/22 04/20/22 Nitrofurantoin [Macrobid] 100 mg PO BID #14 cap 04/20/22 Nystatin [Nystop] 1 applic TOP BID #1 ea 04/20/22 carvediloL [Coreg] 3.125 mg PO BID 04/20/22 04/20/22 oxyCODONE [Roxicodone] 7.5 mg PO Q6H PRN 04/20/22 04/20/22 - Allergies Allergies/Adverse Reactions: Allergies Allergy/AdvReac Type Severity Reaction Status Date / Time No Known Drug Allergies Allergy Verified 04/17/22 19:07 - Social History Does the pt smoke?: Yes Smoking Status: Current every day smoker Does the pt drink ETOH?: No Does the pt have substance abuse?: Yes - Immunizations Immunizations are current?: No - POLST Patient has POLST: No POLST Status: Full Code PD ED PE NORMAL - Vitals Vital signs reviewed: Yes - General General: Alert and oriented X 3, Other (Appears to be in pain) - HEENT HEENT: PERRL, EOMI - Neck Neck: Supple, no meningeal sign, No bony TTP - Cardiac Cardiac: RRR, No murmur - Respiratory Respiratory: No respiratory distress, Clear bilaterally, Other (Win[place] with deep breathing) - Abdomen Abdomen: Non tender - Back Back: No CVA TTP, No spinal TTP - Derm Derm: Normal color, Warm and dry - Extremities Extremities: No edema, No calf tenderness / cord - Neuro Neuro: Alert and oriented X 3, Normal speech Results - Vitals Vitals: Vital Signs - 24 hr 04/24/22 04/24/22 04/24/22 10:49 13:04 13:30 Temperature 36.3 C L Heart Rate 97 80 82 Respiratory 18 19 19 Rate Blood Pressure 104/79 122/67 122/67 O2 Saturation 95 99 99 Oxygen O2 Source [] Room air O2 Source [] Room air O2 Source Room air - EKG (time done) 1058 Rate: Rate (enter#) (93) Rhythm: NSR [place]: Normal Intervals: RBBB QRS: Normal Ischemia: Q waves (inferior) Compare to prior EKG: Unchanged from prior EKG (No significant change from 04/18/2022) Computer interpretation: Agree with computer - Labs Labs: Laboratory Tests 04/24/22 04/24/22 04/24/22 11:45 13:15 13:15 WBC 20.5 H RBC 5.08 Hgb 14.3 Hct 45.8 MCV 90.2 MCH 28.1 MCHC 31.2 L RDW 15.9 H Plt Count 367 MPV 10.3 Neut # (Auto) Not Reportable Lymph # (Auto) Not Reportable Green # (Auto) Not Reportable Eos # (Auto) Not Reportable Baso # (Auto) Not Reportable Absolute Nucleated RBC Not Reportable Total Counted 100 Band Neuts % (Manual) 7 Reactive Lymphs % (Man) 5 Abnorm Lymph % (Manual) 0 Nucleated RBC % Not Reportable Neutrophils # (Manual) 17.0 H Lymphocytes # (Manual) 1.8 Monocytes # (Manual) 1.4 H Eosinophils # (Manual) 0.2 Basophils # (Manual) 0.0 Differential Comment MANUAL DIFFERENTIAL Sodium 135 Potassium 3.7 Chloride 100 L Carbon Dioxide 22 Anion Gap 13.0 BUN 45 H Creatinine 2.3 H Estimated GFR (MDRD) 21 L Glucose 150 H Calcium 9.2 Total Bilirubin 0.8 AST 16 ALT 15 Alkaline Phosphatase 120 Troponin I High Sens 14.4 Total Protein 8.4 H Albumin 4.1 Globulin 4.3 H Albumin/Globulin Ratio 1.0 Lipase 37 Urine Color Urine Clarity Urine pH Ur Specific [place] Urine Protein Urine Glucose (UA) Urine Ketones Urine Occult Blood Urine Nitrite Urine Bilirubin Urine Urobilinogen Ur Leukocyte Esterase Ur Microscopic Review Urine Culture Comments 04/24/22 14:39 WBC RBC Hgb Hct MCV MCH MCHC RDW Plt Count MPV Neut # (Auto) Lymph # (Auto) Green # (Auto) Eos # (Auto) Baso # (Auto) Absolute Nucleated RBC Total Counted Band Neuts % (Manual) Reactive Lymphs % (Man) Abnorm Lymph % (Manual) Nucleated RBC % Neutrophils # (Manual) Lymphocytes # (Manual) Monocytes # (Manual) Eosinophils # (Manual) Basophils # (Manual) Differential Comment Sodium Potassium Chloride Carbon Dioxide Anion Gap BUN Creatinine Estimated GFR (MDRD) Glucose Calcium Total Bilirubin AST ALT Alkaline Phosphatase Troponin I High Sens Total Protein Albumin Globulin Albumin/Globulin Ratio Lipase Urine Color LT. YELLOW Urine Clarity CLEAR Urine pH 6.0 Ur Specific [place] 1.010 Urine Protein NEGATIVE Urine Glucose (UA) NEGATIVE Urine Ketones NEGATIVE Urine Occult Blood NEGATIVE Urine Nitrite NEGATIVE Urine Bilirubin NEGATIVE Urine Urobilinogen 0.2 (NORMAL) Ur Leukocyte Esterase NEGATIVE Ur Microscopic Review NOT INDICATED Urine Culture Comments NOT INDICATED - Rads (name of study) Single view chest x-ray is unremarkable Radiology: Final report received, EMP read indepedently CT pulmonary angiogram showing emphysema, no PE or vascular disease Radiology: Final report received, EMP read indepedently Procedures - General procedure General procedure: There is a delay in care as multiple blood draws had been attempted. I personally shaquille blood from the right brachial artery using real-time ultrasound guidance for troponin and chemistry testing. PD Medical Decision Making - ED course ED course: 66-year-old woman presents with acute chest pain and she looks quite uncomfortable. EKG and biomarkers are nonischemic. Given that she had just gotten out of the hospital 4 days ago, PE is a significant possibility. Her renal function was diminished but decided to scan regardless given the high pretest probability and hydrate her afterwards, there was no PE. During this time she became more encephalopathic, she frequently has encephalopathy, often related to UTIs, today she does not have a UTI but at the time of admission she has to be stimulated to become awake and now is alert and oriented only x1. Spoke with Dr. Marquez for observation at 257pm. Departure - Departure Disposition: ED Place in Observation Clinical Impression: KJ (acute kidney injury), Dehydration, Chronic HFrEF (heart failure with reduced ejection fraction), Acute encephalopathy Chest pain Qualifiers: Chest pain type: unspecified Qualified Code(s): R07.9 - Chest pain, unspecified Condition: Serious
[2022-04-24] MEDS ORDERED: ASPIRIN CHEW 81 MG TABLET PO STA (11:21)
[2022-04-24] MEDS ORDERED: MORPHINE 2 MG/ML CARPUJECT IVP STA (11:22)
--- NOTE | 2022-04-24 11:47 | XRAY Report ---
PROCEDURE: Chest 1 View X-Ray INDICATIONS: Chest pain TECHNIQUE: One view of the chest was acquired. COMPARISON: 12/13/2021. FINDINGS: Surgical changes and devices: None. Lungs and pleura: No pleural effusions or pneumothorax. Lungs are clear. Mediastinum: Mediastinal contours appear normal. Heart size is normal. Bones and chest wall: No suspicious bony lesions. Overlying soft tissues appear unremarkable. IMPRESSION: No evidence acute pulmonary process. Reviewed by: Dirk Miranda MD on 04/24/2022 11:46 AM PST Approved by: Dirk Miranda MD on 04/24/2022 11:46 AM PST Station ID: [id number]
[2022-04-24 11:58] LABS: BASOPHILS % (AUTO) 0.2 %; EOSINOPHILS % (AUTO) 61.9 %; HCT - HEMATOCRIT 45.8 % (37.0-47.0); HGB - HEMOGLOBIN 14.3 g/dL (12.0-16.0); LYMPHOCYTES % (AUTO) 7.9 %; MEAN CORPUSCULAR HEMOGLOBIN 28.1 pg (27.0-31.0); MEAN CORPUSCULAR HGB CONC 31.2 g/dL (32.0-36.0); MEAN CORPUSCULAR VOLUME 90.2 fL (81.0-99.0); MEAN PLATELET VOLUME 10.3 fL (7.9-10.8); MONOCYTES % (AUTO) 6.3 %; NEUTROPHILS % (AUTO) 23.5 %; PLT - PLATELET COUNT 367 10^3/uL (130-450); RED BLOOD COUNT 5.08 10^6/uL (4.20-5.40); RED CELL DISTRIBUTION WIDTH 15.9 % (12.0-15.0); WHITE BLOOD COUNT 20.5 x10^3/uL (4.8-10.8)
[2022-04-24 12:14] LABS: ABNORMAL LYMPHS % (MANUAL) 0 %
[2022-04-24 12:37] LABS: BAND NEUTROPHILS % (MANUAL) 7 %; EOSINOPHILS # (MANUAL) 0.2 10^3/uL (0-0.7); LYMPHOCYTES # (MANUAL) 1.8 10^3/uL (1.5-3.5); LYMPHOCYTES % (MANUAL) 4 %; MONOCYTES # (MANUAL) 1.4 10^3/uL (0.0-1.0); REACTIVE LYMPHS % (MANUAL) 5 %
[2022-04-24 12:39] LABS: DIFFERENTIAL COMMENT MANUAL DIFFERENTIAL
[2022-04-24 13:36] LABS: ALBUMIN 4.1 g/dL (3.2-5.5); BILIRUBIN,TOTAL 0.8 mg/dL (0.2-1.0); CALCIUM 9.2 mg/dL (8.5-10.3); CREATININE 2.3 mg/dL (0.4-1.0); POTASSIUM 3.7 mmol/L (3.5-5.0); TOTAL PROTEIN 8.4 g/dL (6.7-8.2)
[2022-04-24] MEDS ORDERED: SODIUM CHLORIDE 0.9% 1,000 ML IV STA (13:52)
[2022-04-24] MEDS ORDERED: iohexoL-300 100 ML VIAL ONE (13:54)
[2022-04-24] MEDS ORDERED: iohexoL-300 100 ML VIAL IVP ONE (14:30)
--- NOTE | 2022-04-24 14:47 | CT Report ---
PROCEDURE: CT chest angiogram with contrast INDICATIONS: chest pain, pe protocol CONTRAST: 80ml Omnipaque 300 TECHNIQUE: After the administration of intravenous contrast, 2 mm axial images were acquired from the pulmonary apices to the posterior costophrenic angles during the arterial phase. In addition, 1 mm lung kernel and 5 mm soft tissue kernel reconstructions were performed. 3-dimensional coronal oblique maximum int ensity projection (MIP) reformats, 8 mm axial MIP, and 5 mm coronal and sagittal MPR reformats were t hen performed through the thorax. For radiation dose reduction, the following was used: automated exp osure control, adjustment of mA and/or kV according to patient size. COMPARISON: None FINDINGS: Image quality: Excellent. Pulmonary arteries: Pulmonary arteries are normal in size, and demonstrate no intraluminal filling d efects to suggest central pulmonary embolism. Lungs and pleura: Emphysematous changes noted in both lungs without pulmonary nodule, infiltrate or p neumothorax Mediastinum: Heart size is normal, without pericardial effusion. No mediastinal or hilar adenopathy . Thoracic aorta is normal in caliber and enhancement. Esophagus is normal in caliber, without hiat al hernia. Bones and chest wall: No suspicious bony lesions. Ribs and thoracic spine appear intact throughout. No axillary or supraclavicular adenopathy. The thyroid is normal in size and there are no incident al findings. Abdomen: Visualized upper abdominal solid organs appear normal in the early arterial phase of enhanc ement. IMPRESSION: 1. Pulmonary emphysema without evidence of pulmonary embolism, aortic dissection or aneurysm Reviewed by: Rayshawn Malave MD on 04/24/2022 1:46 PM AK Approved by: Rayshawn Malave MD on 04/24/2022 1:46 PM AKST Station ID: [id number]
[2022-04-24 14:48] LABS: BILIRUBIN,URINE NEGATIVE (NEGATIVE); GLUCOSE, URINE (UA) NEGATIVE (NEGATIVE); KETONES,URINE (UA) NEGATIVE (NEGATIVE); LEUKOCYTE ESTERASE, URINE NEGATIVE (NEGATIVE); NITRITE,URINE NEGATIVE (NEGATIVE); OCCULT BLOOD,URINE NEGATIVE (NEGATIVE); PROTEIN,URINE NEGATIVE (NEGATIVE); UROBILINOGEN,URINE 0.2 (NORMAL) E.U./dL (NORMAL)
[2022-04-24 14:49] LABS: CLARITY,URINE CLEAR (CLEAR)
[2022-04-24] MEDS ORDERED: ONDANSETRON 4 MG/2 ML VIAL IVP PRN (14:56)
[2022-04-24] MEDS ORDERED: ONDANSETRON ODT 4 MG TABLET TL PRN (14:56)
[2022-04-24] MEDS ORDERED: SODIUM CHLORIDE FLUSH 0.9% 10 ML SYRINGE IVP PRN (14:56)
[2022-04-24] MEDS ORDERED: MORPHINE 2 MG/ML CARPUJECT IVP PRN (14:56)
--- NOTE | 2022-04-24 15:08 | HISTORY & PHYSICAL EXAMINATION ---
Chief Complaint - Chief Complaint Chief Complaint: Chest pain History of Present Illness - Admitted From Admitted From:: Home via EMS - History Obtained From Records Reviewed: [facility] History obtained from: Dr. Whitney Exam Limitations: she is confused and sleepy - History of Present Illness HPI Comment/Other: This is a 66-year-old female that comes to our emergency room quite frequently. She was just discharged April 20 after being admitted April 18. She has a seizure disorder history, coronary artery disease history, COPD, hypertension, multiple sclerosis and a ejection fraction of 35 to 40%. When she comes to our ER, she usually presents as altered mental status. Most of the time we find her with a UTI, treat that and send her home. She falls frequently at home. She will start calling out for help constantly when she is confused. Neighbors are usually the people that find her on the ground, or call the ambulance because she is crying out for help. With her last admission she was again positive for UTI. As an aside, she cries out for help and yells here as well. When I go into her room and ask her why she is yelling, she yells but "I am not yelling". When I pointed out to her that her voice is raised she tells me that she does not think it sprays. I asked her during those occasions if she is in pain, or if something is hurting her and she usually says no. She really has no idea she is yelling. Sometimes I think this lady has had some type of frontal lobe injury. Urine culture grew out E. coli with that last admission. Discharged home on nitrofurantoin. She now returns without metabolic encephalopathy. That was the most surprising thing for the emergency room physician. She usually has metabolic encephalopathy and this time he found her to be more alert than usual. She had more insight than usual. Her complaint was chest pain. Substernal, nonradiating. In view of the fact that she had coronary artery disease he went ahead and worked her up and EKG was unchanged, troponin was 14.4. Because she was just in the hospital, and recently discharged, he also worried about a PE I did a CT pulmonary angiogram. It was negative for pneumonia, pleural effusion, or PE. As her visit in the emergency room progressed, she became more encephalopathic. More sedated. She did receive 2 mg of morphine for her chest pain, and that was done early in her evaluation. It is now 4 hours later and she is still sleepy, and not able to return to home. Her urinalysis is actually clean. She does not have a fever. Because she has multiple CTs of the head, one was not repeated in the emergency room with this visit. She appears dehydrated on labs. When she was discharged her BUN was 25, creatinine 1.3. Today she is 45 and 2.3. In the past, with encephalopathy and poor p.o. intake her creatinine has been as high as 4.8. Today's white cell count is also newly elevated at 20.5. At discharge she was 8.6. The emergency room provider discussed the case at length with me. Until she goes back to baseline mental status, he is asking that we place her under observation. 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 Review of prior records revealed that her father from bone cancer when she was quite young. Her mother is and had a history of heart disease and lung cancer. She has brother who also from bone cancer and another brother who has atrial fibrillation. Living Situation: Alone Social History Notes: Unable to update the social history given her altered mental status but review of prior records revealed that she is a smoker and does not have a history of alcohol abuse. There is a remote history of LSD use back in the 1970s. - Substance History Use: Uses substance without health or social issues: Tobacco - POLST Patient has POLST: No POLST Status: Full Code Meds/Allgy - Home Medications Home Medications: Ambulatory Orders Medication Instructions Recorded Confirmed Levothyroxine Sodium 50 mcg PO QDAC 07/18/19 04/24/22 Atorvastatin [Lipitor] 40 mg PO QPM #0 12/21/20 04/24/22 Levetiracetam [Keppra] 500 mg PO BID 04/16/21 04/24/22 Losartan Potassium 12.5 mg PO DAILY 04/03/22 04/24/22 Aspirin [Aspirin EC] 81 mg PO DAILY 04/20/22 04/24/22 Fluconazole [Diflucan] 100 mg PO DAILY #14 tab 04/20/22 04/24/22 Fluticasone [Flonase] 1 sprays WILLIE BID PRN 04/20/22 04/24/22 Nitrofurantoin [Macrobid] 100 mg PO BID #14 cap 04/20/22 04/24/22 Nystatin [Nystop] 1 applic TOP BID #1 ea 04/20/22 04/24/22 carvediloL [Coreg] 3.125 mg PO BID 04/20/22 04/24/22 oxyCODONE [Roxicodone] 7.5 mg PO Q6H PRN 04/20/22 04/24/22 Acetaminophen [Acetaminophen Extra 1,000 mg PO TID PRN 04/24/22 04/24/22 Strength] Diclofenac Sodium Dr [Voltaren] 1 tab PO BID PRN 04/24/22 04/24/22 - Allergies Allergies/Adverse Reactions: Allergies Allergy/AdvReac Type Severity Reaction Status Date / Time No Known Drug Allergies Allergy Verified 04/17/22 19:07 Review of Systems - Other Findings Other Findings: By the time she got to [facility], she is deeply sleepy. She does awaken when I call her name or touch her, looks at me, but then closes her eyes and goes back to sleep. Unable to do ROS Prior Level of Functionality: She theoretically lives on her own with caregivers to come to the house. She supposedly dresses herself and feed herself. She lacks insight about her level of independence with ADLs and the cleanliness in her home. She uses a neighbor's son to do chores such as laundry, and cleaning the dishes. He also helps her with meals. She pays him about $50 a week. He cannot drive so she ne eds to coordinate that with other people to picker groceries. Her DPOA is her brother Bruce. She has an APS cyber crime investigator Yajaira at [phone]. She has a [facility] out reach renal social worker Kiana as well. She is able to get out of bed and ambulate across the room, about 10 to 20 feet, with her walker. She spoke to our personal financial planner 04/22/22: Pt reports that she is not moving much, but is able to get up with her walker. Asked if she was still open to moving into assisted living. Pt states she is if it is a "nice place like [facility]." Informed patient that [facility] [place]. Typically they want residents who can self pay for a period of time before transitioning to medicaid as payer. Patient states she would like to be placed on a wait list for [facility]. Informed patient the [facility] can look into this and get back to patient at a later date. Pt in agreement. Pt reports she has not heard from the [facility], [facility] or the state about getting caregivers. Informed pt that [facility] can look into this. Pt in agreement and requests a call back within a week to follow up. Exam - Vital Signs Reviewed Vital Signs: Yes Vital Signs: Vital Signs x48h Temp Pulse Resp BP Pulse Ox 04/24/22 13:30 82 19 122/67 99 04/24/22 13:04 80 19 122/67 99 04/24/22 10:49 36.3 C L 97 18 104/79 95 - Physical Exam General Appearance: positive: No acute distress, Lethargic (every once in a whi le opens eyes to look and use her hands grasp the air in front of her), Other (Face is slack, mouth slightly open, tongue is between her teeth and protrudes between her lips that are quite dry and flaking) Eyes Bilateral: positive: PERRL (Mainly pinpoint), EOMI ENT: positive: Dry mucous membranes, Other (Dry cracked lips) Neck: positive: No JVD. negative: Stiff neck Respiratory: positive: No respiratory distress, Other (Slow, shallow, unlabored respiration. At times she is almost snoring). negative: Wheezes, Rales, Rhonchi Cardiovascular: positive: Regular rate & rhythm Abdomen: positive: Non-tender, No organomegaly, Nml bowel sounds, No distention, Other (Obese belly) Skin: positive: Pallor, Other (Her back is layered with a scaling red rash straight down the middle. She may have been laying in her urine with urine dermatitis) Extremities: positive: No pedal edema, Other (very cold hands and feet. no cyanosis) Neurologic/Psychiatric: positive: CN's nml (2-12), Motor nml (no focal deficits but she is not really responding to commancs), Slurred/abnml speech, Other (not able to speak right now after responding in ER) Sepsis Event Note (H) - Evaluation Current Stage of Sepsis: Ruled out Conclusion/Plan - Problem List (1) Acute encephalopathy Conclusion/Plan: Lethargy + pin pont pupils + hallucinations? Differential diagnosis is: Stroke, infection, hepatic encephalopathy, septic encephalopathy, uremia, GA, drug overuse (opiod or keppra?), Or unwitnessed seizures. This time her encephalopathy came upon her in the ER where she was directly observed. There was no seizure. Urine is clean, chest x-ray does not show pneumonia. Abdominal exam is benign. It does not explain why her white cell count is elevated. Troponin is normal. She has no focal deficits and as such, CT of the head will not be done. Plan: Observation status Hydration overnight with NS @ 100 cc/hr Telemetry Check urine for toxicology Narcan IVP x 1 Check ammonia level Keppra IV There is no nuchal rigidity, fever, headache, and I do not plan on doing an LP (2) KJ (acute kidney injury) Conclusion/Plan: Appears to be from dehydration on exam. Multiple previous episodes of acute kidney injury with her metabolic encephalopathy and dehydration. At this time it appears to be the same problem. We will hydrate overnight. Recheck BMP in the morning. (3) Chronic HFrEF (heart failure with reduced ejection fraction) Conclusion/Plan: No acute heart failure on exam. No JVD, no crackles, no hypoxemia and CT of the chest does not show edema. Her medications of carvedilol, losartan will be resumed - Lab Results Lab results reviewed: Yes Fish Bones: 04/24/22 11:45 04/24/22 13:15 - Diagnostic Imaging Results Diagnostic Imaging Results: positive: Final report reviewed Diagnostic Imaging Results Comments: Chest x-ray is without evidence of acute pulmonary process Pulmonary arteries are normal in size on CT angiogram. No defects to suggest central pulmonary embolism. Emphysematous changes noted in both lungs without pulmonary nodules, infiltrate or pneumothorax. Heart size is normal. No adenopathy. - EKG Results EKG Interpreted Independently: No EKG Comparison: Unchanged from prior EKG Core Measures - Anticipated LOS I expect patient to be DC'd or transferred within 96 hours.: Yes - DVT/VTE - Prophylaxis VTE/DVT Prophylaxis med ordered at admit?: Yes
[2022-04-24 15:18] LABS: MUDS CUTOFF CONCENTRATIONS CUTOFF CONC BELOW:
[2022-04-24 15:32] LABS: AMPHETAMINE SCREEN,URINE NEGATIVE (NEGATIVE); BARBITURATE SCREEN,UR NEGATIVE (NEGATIVE); BENZODIAZEPINES SCREEN, URINE NEGATIVE (NEGATIVE); COCAINE SCREEN URINE NEGATIVE (NEGATIVE); METHADONE SCREEN, URINE NEGATIVE (NEGATIVE); METHAMPHETAMINES SCREEN, URINE NEGATIVE (NEGATIVE); OPIATE SCREEN, URINE POSITIVE (NEGATIVE); OXYCODONE SCREEN, URINE NEGATIVE (NEGATIVE); PROPOXYPHENE SCREEN, URINE NEGATIVE (NEGATIVE); THC CANNABINOID SCREEN, URINE NEGATIVE (NEGATIVE); TRICYCLIC ANTIDEPRESSANT,URINE NEGATIVE (NEGATIVE)
[2022-04-24 16:04] LABS: B. PARAPERTUSSIS- RESP PCR PAN NOT DETECTED; B. PERTUSSIS- RESP PCR PANEL NOT DETECTED; C. PNEUMONIAE- RESP PCR PANEL NOT DETECTED; CORONAVIRUS 229E-RESP PCR NOT DETECTED; CORONAVIRUS HKU1-RESP PCR NOT DETECTED; CORONAVIRUS NL63-RESP PCR NOT DETECTED; CORONAVIRUS OC43-RESP PCR NOT DETECTED; HUMAN METAPNEUMOVIRUS NOT DETECTED; INFLUENZA A- RESP PCR PANEL NOT DETECTED; INFLUENZA B - RESP PCR PANEL NOT DETECTED; M. PNEUMONIAE- RESP PCR PANEL NOT DETECTED; PARAINFLUENZA VIRUS 1 NOT DETECTED; PARAINFLUENZA VIRUS 2 NOT DETECTED; PARAINFLUENZA VIRUS 3 NOT DETECTED; PARAINFLUENZA VIRUS 4 NOT DETECTED; RHINOVIRUS/ENTEROVIRUS NOT DETECTED; RSV- RESP PCR PANEL NOT DETECTED; SARS-CoV-2 -RESP PCR PANEL NOT DETECTED
[2022-04-24] MEDS: SODIUM CHLORIDE FLUSH 0.9% 10 ML SYRINGE IVP SCH (16:12)
[2022-04-24] MEDS: SODIUM CHLORIDE 0.9% 1,000 ML IV SCH (16:12)
--- NOTE | 2022-04-24 17:22 | PHARMACY PROGRESS NOTE ---
- Best Possible Medication History Admit Date and Time: 04/24/22 1456 Processed by: Pharmacy Medication History completed: Yes Patient Interview: Pt unable to participate Secondary Source(s): Prescription bottles, Pharmacy records As the person ultimately responsible for medication therapy, providers are able to order a medication from an existing home medication list in [facility] via the "Reconcile Routine" prior to Confirmation of that medication by operations support specialist. Such practice is discouraged except when the physician, in their clinical judgment, deems that a medical need exists for a medication without regard to previous use.
[2022-04-24] MEDS ORDERED: FLUTICASONE NASAL SPRAY NAS PRN (18:07)
[2022-04-24] MEDS ORDERED: NALOXONE 0.4 MG/ML VIAL IVP ONE (18:15)
[2022-04-24] MEDS: NITROFURANTOIN MACRO 100 MG CAPSULE PO SCH (20:18)
[2022-04-24] MEDS: ATORVASTATIN 40 MG TABLET PO SCH (20:18)
[2022-04-24] MEDS: ENOXAPARIN 30 MG/0.3 ML SYRINGE SUBQ SCH (20:18)
[2022-04-24] MEDS: carvediloL 3.125 MG TABLET PO SCH (20:18)
[2022-04-24] MEDS ORDERED: levETIRAcetam 500 MG/5 ML UDC PO SCH (21:00)
[2022-04-24] MEDS: NYSTATIN POWDER 15 GM TOP SCH (21:37)
[2022-04-24] MEDS: levETIRAcetam 500 MG/5 ML VIAL IVP SCH (21:37)
[2022-04-25] MEDS: SODIUM CHLORIDE FLUSH 0.9% 10 ML SYRINGE IVP SCH ×3 (01:50→17:06)
[2022-04-25] MEDS: SODIUM CHLORIDE 0.9% 1,000 ML IV SCH ×3 (02:19→21:00)
[2022-04-25 05:35] LABS: CALCIUM 9.1 mg/dL (8.5-10.3); CREATININE 1.5 mg/dL (0.4-1.0); POTASSIUM 3.7 mmol/L (3.5-5.0)
[2022-04-25] MEDS: LEVOTHYROXINE 25 MCG TABLET PO SCH (06:29)
[2022-04-25 10:11] LABS: BASOPHILS % (AUTO) 0.3 %; EOSINOPHILS % (AUTO) 0.1 %; HCT - HEMATOCRIT 40.8 % (37.0-47.0); LYMPHOCYTES # (AUTO) 1.3 10^3/uL (1.5-3.5); LYMPHOCYTES % (AUTO) 12.9 %; MEAN CORPUSCULAR HEMOGLOBIN 28.2 pg (27.0-31.0); MEAN CORPUSCULAR HGB CONC 31.9 g/dL (32.0-36.0); MEAN CORPUSCULAR VOLUME 88.5 fL (81.0-99.0); MEAN PLATELET VOLUME 11.2 fL (7.9-10.8); MONOCYTES # (AUTO) 1.1 10^3/uL (0.0-1.0); MONOCYTES % (AUTO) 10.4 %; NEUTROPHILS # (AUTO) 7.7 10^3/uL (1.5-6.6); NEUTROPHILS % (AUTO) 75.9 %; PLT - PLATELET COUNT 216 10^3/uL (130-450); RED BLOOD COUNT 4.61 10^6/uL (4.20-5.40); RED CELL DISTRIBUTION WIDTH 15.9 % (12.0-15.0); WHITE BLOOD COUNT 10.1 x10^3/uL (4.8-10.8)
[2022-04-25] MEDS: ASPIRIN EC 81 MG TABLET PO SCH (10:15)
[2022-04-25] MEDS: LOSARTAN 50 MG TABLET PO SCH (10:15)
[2022-04-25] MEDS: levETIRAcetam 500 MG/5 ML VIAL IVP SCH (10:16)
[2022-04-25] MEDS: carvediloL 3.125 MG TABLET PO SCH ×2 (10:16→21:00)
[2022-04-25] MEDS: ENOXAPARIN 30 MG/0.3 ML SYRINGE SUBQ SCH (10:17)
[2022-04-25] MEDS: NITROFURANTOIN MACRO 100 MG CAPSULE PO SCH ×2 (10:23→21:00)
[2022-04-25] MEDS: NYSTATIN POWDER 15 GM TOP SCH ×2 (10:24→21:03)
[2022-04-25] MEDS: oxyCODONE 5 MG TABLET PO PRN ×2 (15:51→23:40)
[2022-04-25] MEDS: ACETAMINOPHEN 325 MG TABLET PO PRN (15:52)
[2022-04-25] MEDS ORDERED: oxyCODONE 5 MG TABLET PO PRN (17:35)
--- NOTE | 2022-04-25 17:39 | PROVIDER PROGRESS NOTE ---
Progress Note April 25, 2021 5:34 PM She had no response to the Narcan last night. She slept all day long. She would respond to me when I walk in the room and look at me but then go back to sleep. Almost snoring. Labs of improved, creatinine came down to 1.3. Vitals were stable all day long. Approximately an hour ago she woke up. She is alert, oriented. She is asking me for IV Dilaudid or IV morphine for her "pain". She says that she just hurts all over. But her knees always hurt. She also says that she takes Percocet on a daily basis at home. In looking at her med list she is on Roxicodone 7.5 mg every 6 hours. That was confirmed by pharmacy. She also takes diclofenac at home. She is asking for that. I went over her history again. Try to get a sense of what happened to cause her to get so obtunded. I asked her if she took any Benadryl, Sudafed, [id number] drug. I asked if she took fentanyl. Anything that could expl ain the obtundation. She was adamant that she is not taking anything that is not on her med list. I reminded her that she had a problem with Sudafed and had multiple episodes of Sudafed overdose. She said that she has not had any Sudafed. The only thing she was worried about was the chest tightness. Right this moment, there is no chest pain or chest tightness. I told her that her blood tests were negative for heart attack. As was her EKG. Active Medications Acetaminophen (Acetaminophen 325 Mg Tablet) 650 mg PO Q4HR PRN PRN Reason: Pain 1 to 4, or Fever Last Admin: 04/25/22 15:52 Dose: 650 mg Aspirin (Aspirin Ec 81 Mg Tablet) 81 mg PO DAILY [facility] Last Admin: 04/25/22 10:15 Dose: 81 mg Atorvastatin Calcium (Atorvastatin 40 Mg Tablet) 40 mg PO QPM [facility] Last Admin: 04/24/22 20:18 Dose: Not Given Carvedilol (Carvedilol 3.125 Mg Tablet) 3.125 mg PO BID [facility] Last Admin: 04/25/22 10:16 Dose: 3.125 mg Diclofenac Sodium (Diclofenac Sodium Dr 75 Mg Tablet) 75 mg PO BID PRN PRN Reason: PAIN Enoxaparin Sodium (Enoxaparin 30 Mg/0.3 Ml Syringe) 30 mg SUBQ DAILY [facility] Last Admin: 04/25/22 10:17 Dose: 30 mg Fluticasone Propionate (Fluticasone Nasal [place]) 1 sprays WILLIE BID PRN PRN Reason: Nasal Congestion Sodium Chloride (Normal Saline 0.9%) 1,000 mls @ 100 mls/hr IV .Q10H [facility] Last Admin: 04/25/22 10:29 Dose: 100 mls/hr Levetiracetam (Levetiracetam 500 Mg/5 Ml Vial) 500 mg IVP BID [facility] Last Admin: 04/25/22 10:16 Dose: 500 mg Levothyroxine Sodium (Levothyroxine 25 Mcg Tablet) 50 mcg PO QDAC [facility] Last Admin: 04/25/22 06:29 Dose: 50 mcg Losartan Potassium (Losartan 50 Mg Tablet) 12.5 mg PO DAILY [facility] Last Admin: 04/25/22 10:15 Dose: 12.5 mg Morphine Sulfate (Morphine 2 Mg/Ml Carpuject) 2 mg IVP Q2HR PRN PRN Reason: Pain 8 to 10 Nitrofurantoin (Nitrofurantoin Macro 100 Mg Capsule) 100 mg PO BID [facility] Last Admin: 04/25/22 10:23 Dose: 100 mg Nystatin (Nystatin Powder 15 Gm) 1 applic TOP BID [facility] Last Admin: 04/25/22 10:24 Dose: 1 applic Ondansetron HCl (Ondansetron Odt 4 Mg Tablet) 4 mg TL Q6HR PRN PRN Reason: Nausea / Vomiting Ondansetron HCl (Ondansetron 4 Mg/2 Ml Vial) 4 mg IVP Q6HR PRN PRN Reason: Nausea / Vomiting Oxycodone HCl (Oxycodone 5 Mg Tablet) 5 mg PO Q4HR PRN PRN Reason: Pain 5 to 7 Last Admin: 04/25/22 15:51 Dose: 5 mg Oxycodone HCl (Oxycodone 5 Mg Tablet) 7.5 mg PO Q6H PRN PRN Reason: PAIN Sodium Chloride (Sodium Chloride Flush 0.9% 10 Ml Syringe) 10 ml IVP PRN PRN PRN Reason: NEEDED PER PROVIDER ORDERS Sodium Chloride (Sodium Chloride Flush 0.9% 10 Ml Syringe) 10 ml IVP 0100,0900,1700 JIN Last Admin: 04/25/22 17:06 Dose: 10 ml Levothyroxine Sodium 50 mcg PO QDAC 07/18/19 Levetiracetam [Keppra] 500 mg PO BID 04/16/21 Losartan Potassium 12.5 mg PO DAILY 04/03/22 Aspirin [Aspirin EC] 81 mg PO DAILY 04/20/22 Fluticasone [Flonase] 1 sprays WILLIE BID PRN 04/20/22 carvediloL [Coreg] 3.125 mg PO BID 04/20/22 oxyCODONE [Roxicodone] 7.5 mg PO Q6H PRN 04/20/22 Acetaminophen [Acetaminophen Extra Strength] 1,000 mg PO TID PRN 04/24/[address] [Voltaren] 1 tab PO BID PRN 04/24/22 Temperature is 36.8. Heart rate 71. Blood pressure 96/50. She has been low in her blood pressure today. Respirations 16. 97% on room air. She is alert, oriented to place. Not time. She thinks it is 3:30 in the morning not 3:30 in the afternoon. Her dry oral mucosa has improved tremendously from yesterday to today with IV fluids. Neck is supple. No JVD. Lungs are clear. Slow, unlabored shallow respiration. Abdomen is soft, nontender. Normal bowel sounds. Extremities are warm. Last night they were ice cold. Tattoo in her left leg. No skin breakdown, no ulcers Neurologically she is oriented to person, place. She can follow my commands. Speech is lucid. Voice is a little low and hoarse but intact. Sodium 144, potassium 3.7, BUN 35 (reduced from 45), creatinine 1.5 (reduced from 2.3), glucose 81 Troponin #1 was 14.4, troponin #2 was 13.8 White cell count is down to 10.1 today. She was 20.5 last night. Hemoglobin hematocrit are normal. Platelets are normal. Assessment/Plan (1) Acute encephalopathy Conclusion/Plan: On admission she had lethargy + pin point pupils + hallucinations? Differential diagnosis was: Stroke, infection, hepatic encephalopathy, septic encephalopathy, uremia, [place], drug overuse (opiod or keppra?), Or unwitnessed seizures. This time her encephalopathy came upon her in the ER where she was directly observed. There was no seizure. Urine is clean, chest x-ray does not show pneumonia. Abdominal exam is benign. Troponin was normal. Her white cell count was initially elevated indicating possible infection but now in retrospect she most likely had demargination. She had no focal deficits, CT of the head was not done. She had no response to Narcan. Ammonia level was normal. She was kept on IV Keppra. Because she did not have any nuchal rigidity, fever, or headache, I did not do an LP. She is now back to baseline. I have no idea why she became subtenon in the ER. Plan: Keep observation status until tomorrow. Continue IV fluids at 100 cc an hour Hopefully discharge tomorrow (2) KJ (acute kidney injury) Conclusion/Plan: Appears to be from dehydration on exam. .Exam is now improved today. Kidney i njury is also improving but not back to baseline. Multiple previous episodes of acute kidney injury with her metabolic encephalopathy and dehydration. At this time it appears to be the same problem. Plan: Continue hydration, recheck BMP in the morning (3) Chronic HFrEF (heart failure with reduced ejection fraction) Conclusion/Plan: No acute heart failure on exam. No JVD, no crackles, no hypoxemia and CT of the chest does not show edema. Her medications of carvedilol, losartan will be resumed (4) Seizure disorder Change her IV Keppra to p.o. Keppra
[2022-04-25] MEDS: DICLOFENAC SODIUM DR 75 MG TABLET PO PRN (19:24)
[2022-04-25] MEDS: levETIRAcetam 500 MG/5 ML UDC PO SCH (21:00)
[2022-04-25] MEDS: ATORVASTATIN 40 MG TABLET PO SCH (21:01)
[2022-04-26] MEDS: SODIUM CHLORIDE FLUSH 0.9% 10 ML SYRINGE IVP SCH ×2 (00:57→10:42)
[2022-04-26] MEDS: LEVOTHYROXINE 25 MCG TABLET PO SCH (06:07)
[2022-04-26] MEDS: SODIUM CHLORIDE 0.9% 1,000 ML IV SCH (07:11)
[2022-04-26] MEDS: carvediloL 3.125 MG TABLET PO SCH (08:00)
[2022-04-26] MEDS: ACETAMINOPHEN 325 MG TABLET PO PRN ×2 (08:00→13:59)
[2022-04-26] MEDS: LOSARTAN 50 MG TABLET PO SCH (08:00)
[2022-04-26] MEDS: ASPIRIN EC 81 MG TABLET PO SCH (08:00)
[2022-04-26] MEDS: DICLOFENAC SODIUM DR 75 MG TABLET PO PRN (08:01)
[2022-04-26] MEDS: NITROFURANTOIN MACRO 100 MG CAPSULE PO SCH (08:01)
[2022-04-26] MEDS: ENOXAPARIN 30 MG/0.3 ML SYRINGE SUBQ SCH (08:01)
[2022-04-26] MEDS: levETIRAcetam 500 MG/5 ML UDC PO SCH (08:08)
[2022-04-26] MEDS: NYSTATIN POWDER 15 GM TOP SCH (08:08)
[2022-04-26] MEDS ORDERED: polyethylene glycoL 3350 17 GM PACKET PO SCH (09:00)
--- NOTE | 2022-04-26 13:45 | Discharge Plan ---
Discharge Plan Problem Reviewed?: Yes Disposition: Home, Self Care Condition: Fair Diet: Regular Activity Restrictions: Activity as Tolerated Shower Restrictions: No Driving Restrictions: Yes (no driving) Weight Bearing: Full Weight Health Concerns: He called an ambulance and had her self brought to the emergency room because you were having some chest tightness. We looked at your EKG to make sure you were not having a heart attack. And your blood test and your EKG were normal. No heart attack. But while we were evaluating you you became sleepier, and sleepier to the point that you were no longer responsive in the emergency room. Your blood pressure was normal, your pulse was normal, your temperature is normal. We did an entire work-up to see if you are having a stroke, heart attack, infection somewhere, meningitis, and use of recreational drugs like heroin, cocaine, methamphetamines but nothing was found. We kept you overnight. The next morning he woke up. You were back to your baseline self. We asked you if you taking anything like Benadryl or [id number] sleeping pills and you said no. As such were puzzled by why you went to sleep and had a hard time waking up. You are not having a heart attack. You are now stable to go home Plan of Treatment: We are not prescribing any new medicines. Please see your primary care provider in follow-up in the next 2 to 3 weeks. Care Goals: To remain in your apartment for as long as possible. However it may be time for you to start living in an assisted living facility. Social work says that they put your name on the list. Assessment: Patient is oriented to person, place, time. Says that she will follow through with seeing her doctor. No insight as to why she got so sleepy. No Smoking: If you smoke, Please STOP! Call for help. Follow-up with: Yenny Markham ARNP [Provider Admit Priv/Credential] -
--- NOTE | 2022-04-26 13:50 | DISCHARGE SUMMARY ---
Discharge Summary Admit Date: 04/25/22 Discharge Date: 04/26/22 Discharging Provider: Kassie Marquez MD Primary Care Provider: Yenny Markham Code Status: Do Not Attempt Resuscitation Condition at Discharge: Fair Discharge Disposition: 01 Home, Self Care - DIAGNOSES Discharge Diagnoses with Status of Each Condition: 1. Acute encephalopathy 2. Acute kidney injury 3. Chronic heart failure with reduced ejection fraction - HPI History of Present Illness: This is a 66-year-old female that comes to our emergency room quite frequently. She was just discharged April 20 after being admitted April 18. She has a seizure disorder history, coronary artery disease history, COPD, hypertension, multiple sclerosis and a ejection fraction of 35 to 40%. When she comes to our ER, she usually presents as altered mental status. Most of the time we find her with a UTI, treat that and send her home. She falls frequently at home. She will start calling out for help constantly when she is confused. Neighbors are usually the people that find her on the ground, or call the ambulance because she is crying out for help. With her last admission she was again positive for UTI. As an aside, she cries out for help and yells here as well. When I go into her room and ask her why she is yelling, she yells but "I am not yelling". When I pointed out to her that her voice is raised she tells me that she does not th ink it sprays. I asked her during those occasions if she is in pain, or if something is hurting her and she usually says no. She really has no idea she is yelling. Sometimes I think this lady has had some type of frontal lobe injury. Urine culture grew out E. coli with that last admission. Discharged home on nitrofurantoin. She now returns without metabolic encephalopathy. That was the most surprising thing for the emergency room physician. She usually has metabolic encephalopathy and this time he found her to be more alert than usual. She had more insight than usual. Her complaint was chest pain. Substernal, nonradiating. In view of the fact that she had coronary artery disease he went ahead and worked her up and EKG was unchanged, troponin was 14.4. Because she was just in the hospital, and recently discharged, he also worried about a PE I did a CT pulmonary angiogram. It was negative for pneumonia, pleural effusion, or PE. As her visit in the emergency room progressed, she became more encephalopathic. More sedated. She did receive 2 mg of morphine for her chest pain, and that was done early in her evaluation. It is now 4 hours later and she is still sleepy, and not able to return to home. Her urinalysis is actually clean. She does not have a fever. Because she has multiple CTs of the head, one was not repeated in the emergency room with this visit. She appears dehydrated on labs. When she was discharged her BUN was 25, creatinine 1.3. Today she is 45 and 2.3. In the past, with encephalopathy and poor p.o. intake her creatinine has been as high as 4.8. Today's white cell count is also newly elevated at 20.5. At discharge she was 8.6. The emergency room provider discussed the case at length with me. Until she goes back to baseline mental status, he is asking that we place her under observation. - Past Medical History Cardiovascular: reports: Hypertension, Coronary artery disease, [place] Respiratory: reports: None Neuro: reports: Seizure disorder, Multiple sclerosis Endocrine/Autoimmune: reports: Other GI: reports: None INFORMATION ASSURANCE ENGINEER: reports: Other : reports: Chronic bladder infection HEENT: reports: None Psych: reports: Depression, ADD/ADHD Musculoskeletal: reports: Chronic back pain, Other Derm: reports: Other MRSA Hx?: Yes - Past Surgical History Ortho: reports: Spine surgery /INFORMATION ASSURANCE ENGINEER: reports: Hysterectomy Cardiovascular: reports: Coronary stent, Cardiac catheterization - CONSULTS | PROCEDURES Procedures: Chest x-ray is without an acute cardiopulmonary process. Chest/thorax CT angiogram does not have pulmonary emboli. She has emphysematous changes both lungs without nodules, infiltrates or pneumothorax. She does not have any adenopathy. - HOSPITAL COURSE Hospital Course: We ruled out an [place] with serial troponins and those were negative. Her urine talk screen was already negative in the emergency room. We then did an ammonia level looking for liver encephalopathy and that was negative. CT of the head was not done since she has had multiple, multiple CTs in the ER and there is no history of trauma, and there were no focal deficits when she first presented. No evidence of infection was found. No he dehydration. We placed her in observation overnight. And she responded to simple IV hydration and the next day she woke up. She is back to her baseline. She is adamant that she did not take anything extra. For quite some time, maybe 2 years ago, she was prone to using Sudafed extensively. But she says she did not do that. No Benadryl, no [id number] sleep aid, and as such we are not clear about why she became so encephalopathic so quickly in the ER. She is discharged in stable condition. We are not asking her to change any of her medications. At discharge temperature was 36.8. Heart rate 65. Blood pressure 104/55. Respirations 18. 96% on room air. She is 5 feet 2 inches tall. Weighs 70.5 kg. She is oriented x3. Still says she has chest tightness. But there is no labored respiration and she has clear lungs. Regular rate and rhythm. And abdomen is soft, nontender, normal bowel sounds. Extremities without edema. She is able to sit up and go to the bathroom on her own and get back in bed. I have asked her to follow-up with her primary care provider in the next 2 to 3 weeks. - ALLERGIES Allergies/Adverse Reactions: Allergies Allergy/AdvReac Type Severity Reaction Status Date / Time No Known Drug Allergies Allergy Verified 04/17/22 19:07 - MEDICATIONS Home Medications: Ambulatory Orders Medication Instructions Recorded Confirmed Levothyroxine Sodium 50 mcg PO QDAC 07/18/19 04/24/22 Atorvastatin [Lipitor] 40 mg PO QPM #0 12/21/20 04/24/22 Levetiracetam [Keppra] 500 mg PO BID 04/16/21 04/24/22 Losartan Potassium 12.5 mg PO DAILY 04/03/22 04/24/22 Aspirin [Aspirin EC] 81 mg PO DAILY 04/20/22 04/24/22 Fluconazole [Diflucan] 100 mg PO DAILY #14 tab 04/20/22 04/24/22 Fluticasone [Flonase] 1 sprays WILLIE BID PRN 04/20/22 04/24/22 Nitrofurantoin [Macrobid] 100 mg PO BID #14 cap 04/20/22 04/24/22 Nystatin [Nystop] 1 applic TOP BID #1 ea 04/20/22 04/24/22 carvediloL [Coreg] 3.125 mg PO BID 04/20/22 04/24/22 oxyCODONE [Roxicodone] 7.5 mg PO Q6H PRN 04/20/22 04/24/22 Acetaminophen [Acetaminophen Extra 1,000 mg PO TID PRN 04/24/22 04/24/22 Strength] Diclofenac Sodium Dr [Voltaren] 1 tab PO BID PRN 04/24/22 04/24/22 - LABS Result Diagrams: 04/25/22 10:05 04/25/22 05:09 - SEPSIS Current Stage of Sepsis: Ruled out
[2022-04-26] MEDS: oxyCODONE 5 MG TABLET PO PRN (13:59)
[2022-04-26 14:48] VITALS: BP 105/64
== END 2022-04-26 16:15 | disposition home or self-care (01) ==
LOC: EDUNIT# → ED 10:48 → MS2 14:56
PROVIDERS: ADMIT Specialist; ATTEND Specialist
DX: G93.40 Encephalopathy, unspecified (principal); N17.9 Acute kidney failure, unspecified; I11.0 Hypertensive heart disease with heart failure; I50.22 Chronic systolic (congestive) heart failure; J44.9 Chronic obstructive pulmonary disease, unspecified; I25.10 Atherosclerotic heart disease of native coronary artery without angina pectoris; G40.909 Epilepsy, unspecified, not intractable, without status epilepticus; G35 Multiple sclerosis; I25.2 Old myocardial infarction; F32.A Depression, unspecified; F90.9 Attention-deficit hyperactivity disorder, unspecified type; R07.89 Other chest pain; Z91.81 History of falling; F17.200 Nicotine dependence, unspecified, uncomplicated; E86.0 Dehydration; Z20.822 Contact with and (suspected) exposure to COVID-19
CPT/HCPCS: 36415; 51701; 71045; 71275; 80048; 80053; 80177; 80306; 81003; 82140; 83690; 84484; 85025; 87633; 93005; 96361; 96372; 96374; 96375; 96376; 99285; A9270; G0378; J1650; Q9967; 81001; 87086

== ENCOUNTER 2022-04-27 13:41 | Outpatient (CLI) | payer MEDICARE, MEDICAID | END 2022-04-27 13:42 | disposition critical access hospital (66) | LOC: EMS 13:41 | DX: R41.0 Disorientation, unspecified (principal); D72.829 Elevated white blood cell count, unspecified; R06.00 Dyspnea, unspecified; R07.1 Chest pain on breathing; R05.9 Cough, unspecified | CPT/HCPCS: A0425; A0429 ==

== ENCOUNTER 2022-04-27 14:01 | Emergency (ER) | payer MEDICARE, MEDICAID ==
--- NOTE | 2022-04-27 14:26 | ED Physician Documentation ---
PD HPI ALTERED MENTAL STATUS - Stated complaint Stated Complaint: AMS - Chief complaint Chief Complaint: Cardiac - History obtained from History obtained from: Patient, EMS, Caregiver - History of Present Illness Timing - onset: Today Timing - duration: Hours Timing - details: Still present (She arrives via EMS with somnolence and slow to respond. No focal deficits. No head tenderness. No tongue lesions.) Associated symptoms: No: Fever, Headache Contributing factors: Recent illness (UTI recently and states is taking abx.). No: Recent med change Basline status: Ambulatory, Confused (baseline is conversant but a bit confused at best.) Similar symptoms before: Diagnosis (presumed medication related delierium or somnolence episodes without stigmata of seizures. Typically takes 1-2 days for improvement.) Recently seen: Emergency Dept, Admitted (She was recently admitted for 2 days with altered mentation and discharged yesterday. Prior admission a couple weeks ago. Frequent presentations for similar altered mentation thought to be medication related.) Review of Systems Constitutional: denies: Fever Nose: denies: Rhinorrhea / runny nose, Congestion Respiratory: denies: Cough GI: denies: Abdominal Pain, Vomiting, Diarrhea Neurologic: reports: Confused, Altered mental status. 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 LAP: Other : Chronic bladder infection HEENT: None Psych: Depression, ADD/ADHD Musculoskeletal: Chronic back pain, Other Derm: Other - Past Surgical History Past Surgical History: Yes Ortho: Spine surgery /GRINDER LAP: Hysterectomy Cardiovascular: Coronary stent, Cardiac catheterization - Present Medications Home Medications: Ambulatory Orders Medication Instructions Recorded Confirmed Levothyroxine Sodium 50 mcg PO QDAC 07/18/19 04/24/22 Atorvastatin [Lipitor] 40 mg PO QPM #0 12/21/20 04/24/22 Levetiracetam [Keppra] 500 mg PO BID 04/16/21 04/24/22 Losartan Potassium 12.5 mg PO DAILY 04/03/22 04/24/22 Aspirin [Aspirin EC] 81 mg PO DAILY 04/20/22 04/24/22 Fluconazole [Diflucan] 100 mg PO DAILY #14 tab 04/20/22 04/24/22 Fluticasone [Flonase] 1 sprays WILLIE BID PRN 04/20/22 04/24/22 Nitrofurantoin [Macrobid] 100 mg PO BID #14 cap 04/20/22 04/24/22 Nystatin [Nystop] 1 applic TOP BID #1 ea 04/20/22 04/24/22 carvediloL [Coreg] 3.125 mg PO BID 04/20/22 04/24/22 oxyCODONE [Roxicodone] 7.5 mg PO Q6H PRN 04/20/22 04/24/22 Acetaminophen [Acetaminophen Extra 1,000 mg PO TID PRN 04/24/22 04/24/22 Strength] Diclofenac Sodium Dr [Voltaren] 1 tab PO BID PRN 04/24/22 04/24/22 - Allergies Allergies/Adverse Reactions: Allergies Allergy/AdvReac Type Severity Reaction Status Date / Time No Known Drug Allergies Allergy Verified 04/17/22 19:07 - Social History Does the pt smoke?: Yes Smoking Status: Never smoker Does the pt drink ETOH?: No Does the pt have substance abuse?: Yes - Immunizations Immunizations are current?: No - POLST Patient has POLST: No POLST Status: Full Code PD ED PE NORMAL - Vitals Vital signs reviewed: Yes - General General: No acute distress, Well developed/nourished. No: Alert and oriented X 3 (Somnolent but arousable to stimulus. Mumbling responses.) - HEENT HEENT: Atraumatic - Neck Neck: Supple, no meningeal sign, No adenopathy - Cardiac Cardiac: RRR, No murmur - Respiratory Respiratory: Clear bilaterally - Abdomen Abdomen: Soft, Non tender - Derm Derm: Normal color, Warm and dry - Extremities Extremities: No edema, No calf tenderness / cord - Neuro Neuro: No motor deficit, No sensory deficit Results - Vitals Vitals: Vital Signs - 24 hr 04/27/22 04/27/22 14:18 16:21 Temperature 35.7 C L 35.9 C L Heart Rate 57 L 62 Respiratory 16 15 Rate Blood Pressure 121/67 101/76 O2 Saturation 100 100 Oxygen O2 Source [With Activity] Room air O2 Source [Without Activity] Room air O2 Source Room air - Labs Labs: Laboratory Tests 04/27/22 04/27/22 04/27/22 14:58 14:58 14:58 WBC 10.0 RBC 4.15 L Hgb 11.5 L Hct 39.4 MCV 94.9 MCH 27.7 MCHC 29.2 L RDW 15.8 H Plt Count 247 MPV 11.4 H Neut # (Auto) 7.9 H Lymph # (Auto) 1.5 [place] # (Auto) 0.6 Eos # (Auto) 0.0 Baso # (Auto) 0.1 Absolute Nucleated RBC 0.00 Nucleated RBC % 0.0 Sodium 142 Potassium 3.6 Chloride 110 Carbon Dioxide 24 Anion Gap 8.0 BUN 25 H Creatinine 1.0 Estimated GFR (MDRD) 55 L Glucose 109 H Calcium 9.1 Total Bilirubin 0.6 AST 14 ALT 11 Alkaline Phosphatase 96 Ammonia 14.6 Total Protein 7.4 Albumin 3.3 Globulin 4.1 Albumin/Globulin Ratio 0.8 L Lipase 34 Vitamin B12 Urine Color Urine Clarity Urine pH Ur Specific [place] Urine Protein Urine Glucose (UA) Urine Ketones Urine Occult Blood Urine Nitrite Urine Bilirubin Urine Urobilinogen Ur Leukocyte Esterase Ur Microscopic Review Urine Culture Comments Salicylates < 6.0 Urine Opiates Screen Ur Oxycodone Screen Urine Methadone Screen Ur Propoxyphene Screen Acetaminophen < 10 L Ur Barbiturates Screen Ur Tricyclics Screen Ur Phencyclidine Scrn Ur Amphetamine Screen U Methamphetamines Scrn U Benzodiazepines Scrn Urine Cocaine Screen U Cannabinoids Screen Ethyl Alcohol < 5.0 04/27/22 04/27/22 14:58 15:31 WBC RBC Hgb Hct MCV MCH MCHC RDW Plt Count MPV Neut # (Auto) Lymph # (Auto) [place] # (Auto) Eos # (Auto) Baso # (Auto) Absolute Nucleated RBC Nucleated RBC % Sodium Potassium Chloride Carbon Dioxide Anion Gap BUN Creatinine Estimated GFR (MDRD) Glucose Calcium Total Bilirubin AST ALT Alkaline Phosphatase Ammonia Total Protein Albumin Globulin Albumin/Globulin Ratio Lipase Vitamin B12 365 Urine Color YELLOW Urine Clarity CLEAR Urine pH 6.0 Ur Specific [place] 1.020 Urine Protein NEGATIVE Urine Glucose (UA) 250 H Urine Ketones NEGATIVE Urine Occult Blood NEGATIVE Urine Nitrite NEGATIVE Urine Bilirubin NEGATIVE Urine Urobilinogen 0.2 (NORMAL) Ur Leukocyte Esterase NEGATIVE Ur Microscopic Review NOT INDICATED Urine Culture Comments NOT INDICATED Salicylates Urine Opiates Screen NEGATIVE Ur Oxycodone Screen POSITIVE H Urine Methadone Screen NEGATIVE Ur Propoxyphene Screen NEGATIVE Acetaminophen Ur Barbiturates Screen NEGATIVE Ur Tricyclics Screen NEGATIVE Ur Phencyclidine Scrn NEGATIVE Ur Amphetamine Screen NEGATIVE U Methamphetamines Scrn NEGATIVE U Benzodiazepines Scrn NEGATIVE Urine Cocaine Screen NEGATIVE U Cannabinoids Screen NEGATIVE Ethyl Alcohol PD Medical Decision Making - ED course Complexity details: reviewed old records, reviewed results, re-evaluated patient (Over the next 2 to 3 hours, she became gradually more alert and conversant. She is oriented now to person place. She is fully conversant in sentences. She states she could try to call a neighbor for a ride home.), considered differential, d/w patient Departure - Departure Disposition: Home, Self Care Clinical Impression: Altered mental state Qualifiers: Altered mental status type: somnolence Qualified Code(s): R40.0 - Somnolence Condition: Stable Follow-Up: Yenny Markham ARNP [Primary Care Provider] - Comments: Stay well-hydrated. I would suggest not using any of your pain medications at least for a few days as this may have contributed to your being sleepy and somnolent today. Continue usual prescribed medications otherwise. Return if needed. Discharge Date/Time: 04/27/22 20:15
[2022-04-27 15:03] LABS: BASOPHILS # (AUTO) 0.1 10^3/uL (0.0-0.1); BASOPHILS % (AUTO) 0.5 %; EOSINOPHILS % (AUTO) 0.3 %; HCT - HEMATOCRIT 39.4 % (37.0-47.0); HGB - HEMOGLOBIN 11.5 g/dL (12.0-16.0); LYMPHOCYTES # (AUTO) 1.5 10^3/uL (1.5-3.5); LYMPHOCYTES % (AUTO) 14.6 %; MEAN CORPUSCULAR HEMOGLOBIN 27.7 pg (27.0-31.0); MEAN CORPUSCULAR HGB CONC 29.2 g/dL (32.0-36.0); MEAN CORPUSCULAR VOLUME 94.9 fL (81.0-99.0); MEAN PLATELET VOLUME 11.4 fL (7.9-10.8); MONOCYTES # (AUTO) 0.6 10^3/uL (0.0-1.0); MONOCYTES % (AUTO) 5.9 %; NEUTROPHILS # (AUTO) 7.9 10^3/uL (1.5-6.6); NEUTROPHILS % (AUTO) 78.4 %; PLT - PLATELET COUNT 247 10^3/uL (130-450); RED BLOOD COUNT 4.15 10^6/uL (4.20-5.40); RED CELL DISTRIBUTION WIDTH 15.8 % (12.0-15.0)
[2022-04-27 15:27] LABS: ACETAMINOPHEN < 10 ug/mL (10-30); ALBUMIN 3.3 g/dL (3.2-5.5); ALBUMIN/GLOBULIN RATIO 0.8 (1.0-2.2); ALKALINE PHOSPHATASE 96 IU/L (42-121); ALT ALANINE AMINOTRANSFERASE 11 IU/L (10-60); AST ASPARTATE AMINOTRANSFERASE 14 IU/L (10-42); BILIRUBIN,TOTAL 0.6 mg/dL (0.2-1.0); BUN - BLOOD UREA NITROGEN 25 mg/dL (6-20); CALCIUM 9.1 mg/dL (8.5-10.3); CARBON DIOXIDE - CO2 24 mmol/L (21-32); CHLORIDE 110 mmol/L (101-111); ETOH - ETHANOL < 5.0 mg/dL; GFR - MDRD 55 (>89); GLUCOSE 109 mg/dL (70-100); LIPASE 34 U/L (22-51); POTASSIUM 3.6 mmol/L (3.5-5.0); SALICYLATE < 6.0 mg/dL; SODIUM 142 mmol/L (135-145); TOTAL PROTEIN 7.4 g/dL (6.7-8.2)
[2022-04-27 15:37] LABS: MUDS CUTOFF CONCENTRATIONS CUTOFF CONC BELOW:
[2022-04-27 15:38] LABS: BILIRUBIN,URINE NEGATIVE (NEGATIVE); GLUCOSE, URINE (UA) 250 mg/dL (NEGATIVE); KETONES,URINE (UA) NEGATIVE (NEGATIVE); LEUKOCYTE ESTERASE, URINE NEGATIVE (NEGATIVE); NITRITE,URINE NEGATIVE (NEGATIVE); OCCULT BLOOD,URINE NEGATIVE (NEGATIVE); PROTEIN,URINE NEGATIVE (NEGATIVE); UROBILINOGEN,URINE 0.2 (NORMAL) E.U./dL (NORMAL)
[2022-04-27 15:39] LABS: CLARITY,URINE CLEAR (CLEAR)
[2022-04-27 15:50] LABS: AMPHETAMINE SCREEN,URINE NEGATIVE (NEGATIVE); BARBITURATE SCREEN,UR NEGATIVE (NEGATIVE); BENZODIAZEPINES SCREEN, URINE NEGATIVE (NEGATIVE); COCAINE SCREEN URINE NEGATIVE (NEGATIVE); METHADONE SCREEN, URINE NEGATIVE (NEGATIVE); METHAMPHETAMINES SCREEN, URINE NEGATIVE (NEGATIVE); OPIATE SCREEN, URINE NEGATIVE (NEGATIVE); OXYCODONE SCREEN, URINE POSITIVE (NEGATIVE); PROPOXYPHENE SCREEN, URINE NEGATIVE (NEGATIVE); THC CANNABINOID SCREEN, URINE NEGATIVE (NEGATIVE); TRICYCLIC ANTIDEPRESSANT,URINE NEGATIVE (NEGATIVE)
[2022-04-27 16:30] VITALS: BP 101/76
[2022-04-27] MEDS ORDERED: ACETAMINOPHEN 325 MG TABLET PO STA (18:25)
[2022-04-27] MEDS ORDERED: NAPROXEN 250 MG TABLET PO STA (18:26)
== END 2022-04-27 20:15 | disposition home or self-care (01) ==
LOC: EDUNIT# → ED 14:01
DX: R40.0 Somnolence (principal)
CPT/HCPCS: 36415; 80053; 80306; 80307; 81003; 82140; 82607; 83690; 85025; 86780; 99282; 99284; A9270; G0480; 80320; 80329; 81001; 87086

== ENCOUNTER 2022-04-27 20:14 | Outpatient (CLI) | payer MEDICARE, MEDICAID | END 2022-04-27 20:15 | disposition home or self-care (01) | LOC: EMS 20:14 | PROVIDERS: ATTEND Registered Nurse | DX: R41.0 Disorientation, unspecified (principal) | CPT/HCPCS: A0425; A0428 ==

== ENCOUNTER 2022-05-06 14:24 | Outpatient (CLI) | payer MEDICARE, MEDICAID | END 2022-05-06 14:25 | disposition critical access hospital (66) | LOC: EMS 14:24 | DX: R41.0 Disorientation, unspecified (principal) | CPT/HCPCS: A0425; A0429 ==

== ENCOUNTER 2022-05-06 14:42 | Inpatient (IN) | payer MEDICARE, MEDICAID ==
--- NOTE | 2022-05-06 15:43 | ED Physician Documentation ---
PD HPI ALTERED MENTAL STATUS - Stated complaint Stated Complaint: AMS - Chief complaint Chief Complaint: Neuro - History obtained from History obtained from: Patient, EMS - Additional information Additional information: Patient is brought in by ambulance for confusion per neighbor. Neighbor told EMS this is how she acts when she has a UTI. Normal blood sugar with EMS. Patient has no complaints. She is slow to respond to questions and does not answer many questions, is mainly staring into space. EMS states no history of trauma that they are aware of. 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: Other : Chronic bladder infection HEENT: None Psych: Depression, ADD/ADHD Musculoskeletal: Chronic back pain, Other Derm: Other - Past Surgical History Past Surgical History: Yes Ortho: Spine surgery /HEAD OF SALES PROMOTION: Hysterectomy Cardiovascular: Coronary stent, Cardiac catheterization - Present Medications Home Medications: Ambulatory Orders Medication Instructions Recorded Confirmed Levothyroxine Sodium 50 mcg PO QDAC 07/18/19 04/24/22 Atorvastatin [Lipitor] 40 mg PO QPM #0 12/21/20 04/24/22 Levetiracetam [Keppra] 500 mg PO BID 04/16/21 04/24/22 Losartan Potassium 12.5 mg PO DAILY 04/03/22 04/24/22 Aspirin [Aspirin EC] 81 mg PO DAILY 04/20/22 04/24/22 Fluconazole [Diflucan] 100 mg PO DAILY #14 tab 04/20/22 04/24/22 Fluticasone [Flonase] 1 sprays WILLIE BID PRN 04/20/22 04/24/22 Nitrofurantoin [Macrobid] 100 mg PO BID #14 cap 04/20/22 04/24/22 Nystatin [Nystop] 1 applic TOP BID #1 ea 04/20/22 04/24/22 carvediloL [Coreg] 3.125 mg PO BID 04/20/22 04/24/22 oxyCODONE [Roxicodone] 7.5 mg PO Q6H PRN 04/20/22 04/24/22 Acetaminophen [Acetaminophen Extra 1,000 mg PO TID PRN 04/24/22 04/24/22 Strength] Diclofenac Sodium Dr [Voltaren] 1 tab PO BID PRN 04/24/22 04/24/22 - Allergies Allergies/Adverse Reactions: Allergies Allergy/AdvReac Type Severity Reaction Status Date / Time No Known Drug Allergies Allergy Verified 05/06/22 15:11 - Social History Does the pt smoke?: Yes Smoking Status: Never smoker Does the pt drink ETOH?: No Does the pt have substance abuse?: Yes - Immunizations Immunizations are current?: No - POLST Patient has POLST: No POLST Status: Full Code PD ED PE NORMAL - Vitals Vital signs reviewed: Yes - General General: No acute distress, Well developed/nourished, Other (patient stares blankly into space. will turn and look at me, but rarely says more than "no" does not seem to be related to the question asked.) - HEENT HEENT: Other (pinpoint pupis B) - Neck Neck: Supple, no meningeal sign - Cardiac Cardiac: RRR - Respiratory Respiratory: No respiratory distress, Clear bilaterally - Abdomen Abdomen: Soft, Non tender, Non distended - Derm Derm: Warm and dry - Extremities Extremities: No edema, No calf tenderness / cord - Neuro Neuro: No motor deficit, No sensory deficit Eye Opening: Spontaneous Motor: Obeys Commands Verbal: Confused GCS Score: 14 Results - Vitals Vitals: Vital Signs - 24 hr 05/06/22 05/06/22 05/06/22 15:12 15:15 17:15 Temperature 36.5 C 36.5 C Heart Rate 62 62 65 Respiratory 16 16 16 Rate Blood Pressure 110/70 110/70 109/84 H O2 Saturation 99 99 98 Oxygen O2 Source [With Activity] Room air O2 Source [Without Activity] Room air O2 Source Room air - Labs Labs: Laboratory Tests 05/06/22 05/06/22 05/06/22 15:39 15:39 15:39 WBC 13.2 H RBC 4.72 Hgb 13.2 Hct 42.5 MCV 90.0 MCH 28.0 MCHC 31.1 L RDW 15.2 H Plt Count 365 MPV 10.9 H Neut # (Auto) 9.1 H Lymph # (Auto) 3.0 [place] # (Auto) 0.8 Eos # (Auto) 0.0 Baso # (Auto) 0.3 H Absolute Nucleated RBC 0.00 Nucleated RBC % 0.0 Sodium 139 Potassium 3.7 Chloride 98 L Carbon Dioxide 27 Anion Gap 14.0 H BUN 39 H Creatinine 1.6 H Estimated GFR (MDRD) 32 L Glucose 108 H Calcium 9.9 Total Bilirubin 0.4 AST 15 ALT 14 Alkaline Phosphatase 141 H Ammonia Total Creatine Kinase 131 Total Protein 8.8 H Albumin 4.3 Globulin 4.5 H Albumin/Globulin Ratio 1.0 Lipase 44 TSH 2.70 Urine Color Urine Clarity Urine pH Ur Specific [place] Urine Protein Urine Glucose (UA) Urine Ketones Urine Occult Blood Urine Nitrite Urine Bilirubin Urine Urobilinogen Ur Leukocyte Esterase Urine RBC Urine WBC Ur Squamous Epith Cells Urine Bacteria Urine Casts Ur Microscopic Review Urine Culture Comments Nasal Adenovirus (PCR) Nasal B. parapertussis DNA (PCR) Nasal Coronavir 229E PCR Nasal Coronavir HKU1 PCR Nasal Coronavir NL63 PCR Nasal Coronavir OC43 PCR Nasal Enterovir/Rhinovir PCR Nasal Influenza B PCR Nasal Influenza A PCR Nasal Parainfluen 1 PCR Nasal Parainfluen 2 PCR Nasal Parainfluen 3 PCR Nasal Parainfluen 4 PCR Nasal RSV (PCR) Nasal B.pertussis DNA PCR Nasal C.pneumoniae (PCR) [place] Human Metapneumo PCR Nasal M.pneumoniae (PCR) Nasal SARS-CoV-2 (PCR) Salicylates < 6.0 Urine Opiates Screen Ur Oxycodone Screen Urine Methadone Screen Ur Propoxyphene Screen Acetaminophen < 10 L Ur Barbiturates Screen Ur Tricyclics Screen Ur Phencyclidine Scrn Ur Amphetamine Screen U Methamphetamines Scrn U Benzodiazepines Scrn Urine Cocaine Screen U Cannabinoids Screen Ethyl Alcohol < 5.0 05/06/22 05/06/22 05/06/22 15:39 16:20 16:35 WBC RBC Hgb Hct MCV MCH MCHC RDW Plt Count MPV Neut # (Auto) Lymph # (Auto) [place] # (Auto) Eos # (Auto) Baso # (Auto) Absolute Nucleated RBC Nucleated RBC % Sodium Potassium Chloride Carbon Dioxide Anion Gap BUN Creatinine Estimated GFR (MDRD) Glucose Calcium Total Bilirubin AST ALT Alkaline Phosphatase Ammonia 10.3 Total Creatine Kinase Total Protein Albumin Globulin Albumin/Globulin Ratio Lipase TSH Urine Color YELLOW Urine Clarity CLEAR Urine pH 6.0 Ur Specific [place] 1.015 Urine Protein NEGATIVE Urine Glucose (UA) NEGATIVE Urine Ketones NEGATIVE Urine Occult Blood NEGATIVE Urine Nitrite POSITIVE H Urine Bilirubin NEGATIVE Urine Urobilinogen 0.2 (NORMAL) Ur Leukocyte Esterase NEGATIVE Urine RBC None Seen Urine WBC 4-5 Ur Squamous Epith Cells FEW Squamous Urine Bacteria Moderate H Urine Casts 0-2 Hyaline Casts Ur Microscopic Review INDICATED Urine Culture Comments INDICATED Nasal Adenovirus (PCR) NOT DETECTED Nasal B. parapertussis DNA (PCR) NOT DETECTED Nasal Coronavir 229E PCR NOT DETECTED Nasal Coronavir HKU1 PCR NOT DETECTED Nasal Coronavir NL63 PCR NOT DETECTED Nasal Coronavir OC43 PCR NOT DETECTED Nasal Enterovir/Rhinovir PCR NOT DETECTED Nasal Influenza B PCR NOT DETECTED Nasal Influenza A PCR NOT DETECTED Nasal Parainfluen 1 PCR NOT DETECTED Nasal Parainfluen 2 PCR NOT DETECTED Nasal Parainfluen 3 PCR NOT DETECTED Nasal Parainfluen 4 PCR NOT DETECTED Nasal RSV (PCR) NOT DETECTED Nasal B.pertussis DNA PCR NOT DETECTED Nasal C.pneumoniae (PCR) NOT DETECTED [place] Human Metapneumo PCR NOT DETECTED Nasal M.pneumoniae (PCR) NOT DETECTED Nasal SARS-CoV-2 (PCR) NOT DETECTED Salicylates Urine Opiates Screen POSITIVE H Ur Oxycodone Screen NEGATIVE Urine Methadone Screen NEGATIVE Ur Propoxyphene Screen NEGATIVE Acetaminophen Ur Barbiturates Screen NEGATIVE Ur Tricyclics Screen NEGATIVE Ur Phencyclidine Scrn NEGATIVE Ur Amphetamine Screen NEGATIVE U Methamphetamines Scrn NEGATIVE U Benzodiazepines Scrn NEGATIVE Urine Cocaine Screen NEGATIVE U Cannabinoids Screen NEGATIVE Ethyl Alcohol - Rads (name of study) Head CT Radiology: Final report received, See rad report (No acute abnormality) Cervical spine CT Radiology: Final report received, See rad report (No acute abnormality) PD Medical Decision Making - ED course Complexity details: reviewed old records, reviewed results, re-evaluated patient, considered differential, d/w industry consultant ED course: 66 yo female with altered mental status. History was obtained via EMS as the patient is unable to give any history. This is occurred to her several times in the past. Question of drug use at home? This usually resolves in 24 to 48 hours. She does have a UTI and we will treat her for this. No acute findings on head CT or cervical spine CT. A CBC was ordered, mild leukocytosis, white blood cell count 13.2. Hemoglobin, hematocrit and platelets are normal. A ER abdominal panel, ammonia and TSH levels were ordered as well. TSH and ammonia are normal. She has an elevated BUN at 39, elevated creatinine at 1.6, this is above her normal baseline of about 1.2-1.3. Urinalysis does have positive nitrites and moderate bacteria. Her respiratory PCR is negative. Her toxicology is negative for salicylates, acetaminophen, ethyl alcohol. Positive for urine opiates. Will admit for further care. Discussed with Dr. Cesar, hospitalist, reviewed lab, CT findings. She accepts the patient for observation. This document was made in part using voice recognition software. While efforts are made to proofread this document, sound alike and grammatical errors may occur. Departure - Departure Disposition: ED Place in Observation Clinical Impression: Acute encephalopathy Altered mental status Qualifiers: Altered mental status type: unspecified Qualified Code(s): R41.82 - Altered mental status, unspecified UTI (urinary tract infection) Qualifiers: Urinary tract infection type: acute cystitis Hematuria presence: without hematuria Qualified Code(s): N30.00 - Acute cystitis without hematuria Condition: Stable Discharge Date/Time: 05/06/22 18:09
[2022-05-06 15:45] LABS: BASOPHILS # (AUTO) 0.3 10^3/uL (0.0-0.1); BASOPHILS % (AUTO) 1.9 %; EOSINOPHILS % (AUTO) 0.2 %; HCT - HEMATOCRIT 42.5 % (37.0-47.0); HGB - HEMOGLOBIN 13.2 g/dL (12.0-16.0); LYMPHOCYTES % (AUTO) 22.4 %; MEAN CORPUSCULAR HGB CONC 31.1 g/dL (32.0-36.0); MEAN PLATELET VOLUME 10.9 fL (7.9-10.8); MONOCYTES # (AUTO) 0.8 10^3/uL (0.0-1.0); MONOCYTES % (AUTO) 6.2 %; NEUTROPHILS # (AUTO) 9.1 10^3/uL (1.5-6.6); PLT - PLATELET COUNT 365 10^3/uL (130-450); RED BLOOD COUNT 4.72 10^6/uL (4.20-5.40); RED CELL DISTRIBUTION WIDTH 15.2 % (12.0-15.0); WHITE BLOOD COUNT 13.2 x10^3/uL (4.8-10.8)
[2022-05-06 16:01] LABS: ACETAMINOPHEN < 10 ug/mL (10-30); ALBUMIN 4.3 g/dL (3.2-5.5); ALKALINE PHOSPHATASE 141 IU/L (42-121); ALT ALANINE AMINOTRANSFERASE 14 IU/L (10-60); AST ASPARTATE AMINOTRANSFERASE 15 IU/L (10-42); BILIRUBIN,TOTAL 0.4 mg/dL (0.2-1.0); BUN - BLOOD UREA NITROGEN 39 mg/dL (6-20); CALCIUM 9.9 mg/dL (8.5-10.3); CARBON DIOXIDE - CO2 27 mmol/L (21-32); CHLORIDE 98 mmol/L (101-111); CK- CREATINE KINASE 131 IU/L (22-269); CREATININE 1.6 mg/dL (0.4-1.0); ETOH - ETHANOL < 5.0 mg/dL; GFR - MDRD 32 (>89); GLUCOSE 108 mg/dL (70-100); LIPASE 44 U/L (22-51); POTASSIUM 3.7 mmol/L (3.5-5.0); SALICYLATE < 6.0 mg/dL; SODIUM 139 mmol/L (135-145); TOTAL PROTEIN 8.8 g/dL (6.7-8.2)
[2022-05-06 16:34] LABS: MUDS CUTOFF CONCENTRATIONS CUTOFF CONC BELOW:
[2022-05-06 16:38] LABS: BILIRUBIN,URINE NEGATIVE (NEGATIVE); GLUCOSE, URINE (UA) NEGATIVE (NEGATIVE); KETONES,URINE (UA) NEGATIVE (NEGATIVE); LEUKOCYTE ESTERASE, URINE NEGATIVE (NEGATIVE); NITRITE,URINE POSITIVE (NEGATIVE); OCCULT BLOOD,URINE NEGATIVE (NEGATIVE); PROTEIN,URINE NEGATIVE (NEGATIVE); UROBILINOGEN,URINE 0.2 (NORMAL) E.U./dL (NORMAL)
[2022-05-06 16:39] LABS: CLARITY,URINE CLEAR (CLEAR)
--- NOTE | 2022-05-06 16:41 | CT Report ---
PROCEDURE: CT cervical spine without contrast INDICATIONS: altered mental status, unknown history TECHNIQUE: Noncontrast 3 mm thick sections acquired from the skull base to the T4 level. Sagittal and coronal r eformats were then constructed. For radiation dose reduction, the following was used: automated exp osure control, adjustment of mA and/or kV according to patient size. COMPARISON: 09/25/2021 . FINDINGS: Image quality: Excellent. Bones: No fractures or dislocations. Visualized superior ribs are intact. Straightening of normal cervical lordosis present. Multilevel degenerative disc disease and arthropathy present in the mid to lower cervical spine, stable from the prior Soft tissues: Prevertebral soft tissues are normal in thickness. No paravertebral hematomas. No ap ical pneumothoraces. Biapical pulmonary emphysema and spiculated nodule in the right lung apex, stab le from the prior IMPRESSION: No evidence of fracture or traumatic malalignment. Multilevel degenerative disc disease and arthropathy Spiculated nodule in the right lung apex associated with pulmonary emphysema, stable from the prior Reviewed by: Rayshawn Malave MD on 05/06/2022 3:40 PM AKST Approved by: Rayshawn Malave MD on 05/06/2022 3:40 PM AKST Station ID: [id number]
--- NOTE | 2022-05-06 16:43 | CT Report ---
PROCEDURE: CT brain without contrast INDICATIONS: altered mental status, unknown history TECHNIQUE: Noncontrast 4.5 mm thick angled axial sections acquired from the foramen magnum to the vertex. For r adiation dose reduction, the following was used: automated exposure control, adjustment of mA and/or kV according to patient size. COMPARISON: None. FINDINGS: Image quality: Excellent. CSF spaces: Basal cisterns are patent. No extra-axial fluid collections. Ventricles are normal in size and shape. Brain: No midline shift. No intracranial masses or hemorrhage. Zavaleta-white matter interface is norm al. Moderate atrophy and multifocal white matter chronic ischemic change noted. Atherosclerotic vasc ular calcification noted in the cavernous segments of both internal carotid arteries as well as the i ntradural vertebral arteries. Skull and face: Calvarium and visualized facial bones are intact, without suspicious lesions. Sinuses: Visualized sinuses and mastoids are clear. IMPRESSION: Moderate atrophy and chronic ischemic change without intracranial hemorrhage or mass effect Reviewed by: Rayshawn Malave MD on 05/06/2022 3:42 PM AKST Approved by: Rayshawn Malave MD on 05/06/2022 3:42 PM AKST Station ID: [id number]
[2022-05-06 16:46] LABS: AMPHETAMINE SCREEN,URINE NEGATIVE (NEGATIVE); BARBITURATE SCREEN,UR NEGATIVE (NEGATIVE); BENZODIAZEPINES SCREEN, URINE NEGATIVE (NEGATIVE); COCAINE SCREEN URINE NEGATIVE (NEGATIVE); METHADONE SCREEN, URINE NEGATIVE (NEGATIVE); METHAMPHETAMINES SCREEN, URINE NEGATIVE (NEGATIVE); OPIATE SCREEN, URINE POSITIVE (NEGATIVE); OXYCODONE SCREEN, URINE NEGATIVE (NEGATIVE); PROPOXYPHENE SCREEN, URINE NEGATIVE (NEGATIVE); THC CANNABINOID SCREEN, URINE NEGATIVE (NEGATIVE); TRICYCLIC ANTIDEPRESSANT,URINE NEGATIVE (NEGATIVE)
[2022-05-06 16:50] LABS: BACTERIA,URINE Moderate /HPF (None Seen); CASTS, URINE 0-2 Hyaline Casts /LPF; RBC,URINE None Seen /HPF (0-5); SQUAMOUS EPITHELIAL CELL,UR FEW Squamous (<= Few)
[2022-05-06] MEDS ORDERED: cefTRIAXone 1 GM VIAL IVP STA (17:06)
[2022-05-06 17:29] LABS: B. PARAPERTUSSIS- RESP PCR PAN NOT DETECTED; B. PERTUSSIS- RESP PCR PANEL NOT DETECTED; C. PNEUMONIAE- RESP PCR PANEL NOT DETECTED; CORONAVIRUS 229E-RESP PCR NOT DETECTED; CORONAVIRUS HKU1-RESP PCR NOT DETECTED; CORONAVIRUS NL63-RESP PCR NOT DETECTED; CORONAVIRUS OC43-RESP PCR NOT DETECTED; HUMAN METAPNEUMOVIRUS NOT DETECTED; INFLUENZA A- RESP PCR PANEL NOT DETECTED; INFLUENZA B - RESP PCR PANEL NOT DETECTED; M. PNEUMONIAE- RESP PCR PANEL NOT DETECTED; PARAINFLUENZA VIRUS 1 NOT DETECTED; PARAINFLUENZA VIRUS 2 NOT DETECTED; PARAINFLUENZA VIRUS 3 NOT DETECTED; PARAINFLUENZA VIRUS 4 NOT DETECTED; RHINOVIRUS/ENTEROVIRUS NOT DETECTED; RSV- RESP PCR PANEL NOT DETECTED; SARS-CoV-2 -RESP PCR PANEL NOT DETECTED
--- NOTE | 2022-05-06 17:47 | HISTORY & PHYSICAL EXAMINATION ---
Chief Complaint - Chief Complaint Chief Complaint: AMS History of Present Illness - Admitted From Admitted From:: ED - History Obtained From History obtained from: ED provider - History of Present Illness HPI Comment/Other: 66yo WF with pmhx of seizure disorder, coronary disease, hypothyroidism, COPD, HTN, multiple sclerosis, HFrEF 35-40% presents to ED with altered mental status. Pt has had multiple admissions to ED with similar complaint, with about 8 admissions for AMS in 2021. History is unable to obtained from patient as she lethargic. History obtained from ED physician and chart review. No are documented complaints of pain anywhere, no chest pain,abdominal pain, fever, chills, nausea, vomiting ,diarrhea. She falls frequently at home. She calls out for help when she is confused. Neighbors find her and call an ambulance and this is how she presented again. She presented with the same presentation, was found down by neighbors who called an ambulance. In the ED, she had a head CT and c-spine performed due to AMS, which showed no new abnormalities. Her UA was positive. 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 In ED she received IV Ceftriaxone today. Her labs were noted to have elevated WBC of 13, elevated BUN/creatinine (baseline creat is 1.0). Her Ammonia level was 10. Her tox screen was (+) for opiates. Her respiratory PCR panel was all neg. She was started on IVF. The ED provider reached out to the Hospitalist Team for further management of her AMS and probable UTI. 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 Review of prior records revealed that her father from bone cancer when she was quite young. Her mother is and had a history of heart disease and lung cancer. She has brother who also from bone cancer and another brother who has atrial fibrillation. Living Situation: Alone Social History Notes: Unable to update the social history given her altered mental status but review of prior records revealed that she is a smoker and does not have a history of alcohol abuse. There is a remote history of LSD use back in the 1970s. - Substance History Use: Uses substance without health or social issues: Tobacco - POLST Patient has POLST: No POLST Status: Full Code Meds/Allgy - Home Medications Home Medications: Ambulatory Orders Medication Instructions Recorded Confirmed Levothyroxine Sodium 50 mcg PO QDAC 07/18/19 04/24/22 Atorvastatin [Lipitor] 40 mg PO QPM #0 12/21/20 04/24/22 Levetiracetam [Keppra] 500 mg PO BID 04/16/21 04/24/22 Losartan Potassium 12.5 mg PO DAILY 04/03/22 04/24/22 Aspirin [Aspirin EC] 81 mg PO DAILY 04/20/22 04/24/22 Fluconazole [Diflucan] 100 mg PO DAILY #14 tab 04/20/22 04/24/22 Fluticasone [Flonase] 1 sprays WILLIE BID PRN 04/20/22 04/24/22 Nitrofurantoin [Macrobid] 100 mg PO BID #14 cap 04/20/22 04/24/22 Nystatin [Nystop] 1 applic TOP BID #1 ea 04/20/22 04/24/22 carvediloL [Coreg] 3.125 mg PO BID 04/20/22 04/24/22 oxyCODONE [Roxicodone] 7.5 mg PO Q6H PRN 04/20/22 04/24/22 Acetaminophen [Acetaminophen Extra 1,000 mg PO TID PRN 04/24/22 04/24/22 Strength] Diclofenac Sodium Dr [Voltaren] 1 tab PO BID PRN 04/24/22 04/24/22 - Allergies Allergies/Adverse Reactions: Allergies Allergy/AdvReac Type Severity Reaction Status Date / Time No Known Drug Allergies Allergy Verified 05/06/22 15:11 Review of Systems - All Other Systems All Other Systems: reports: Other (She is unable to answer any questions therefore no review of systems could be obtained) Exam - Vital Signs Reviewed Vital Signs: Yes Vital Signs: Vital Signs x48h Temp Pulse Resp BP Pulse Ox 05/06/22 17:15 65 16 109/84 H 98 05/06/22 15:15 36.5 C 62 16 110/70 99 05/06/22 15:12 36.5 C 62 16 110/70 99 - Physical Exam General Appearance: positive: No acute distress, Lethargic Eyes Bilateral: positive: No lid inflammation ENT: positive: No signs of dehydration, Other (edentulous) Neck: positive: Nml inspection Respiratory: positive: No respiratory distress, Breath sounds nml Cardiovascular: positive: Regular rate & rhythm, No murmur Abdomen: positive: Non-tender, Other (Obese with a pannus.) Skin: positive: Skin rash (Red, raised patches, none confluent seen on right buttock and posterior thigh, probably lower back and probably left buttock and left posterior thigh) Extremities: positive: Non-tender, No pedal edema Neurologic/Psychiatric: positive: Other (Obtunded, awakens to pain and says "Hey", moves spontaneously, falls back asleep) Conclusion/Plan - Problem List (1) Encephalopathy Conclusion/Plan: She has had many presentations like this and most reveal that she is dehydrated with KJ and has a UTI. We also suspect but have never been able to show that she may ingest something. For quite some time, maybe 2 years ago, she was prone to using Sudafed extensively. But she has denied Benadryl or sleep aid use in the past. She lives alone. There have been multiple APS reports submitted, and to our knowledge (ER and Hospitalist providers), nothing is ever found, and no changes are made in her living situation. Alternatively should she may easily develop mental status changes because of her underlying multiple sclerosis. Also we have suspected that she may have a personality disorder. Plan: Will treat with IV fluids Will begin IV cefepime given the history of E. coli resistant organisms Neurochecks (2) UTI (urinary tract infection) Qualifiers: Urinary tract infection type: site unspecified Hematuria presence: without hematuria Qualified Code(s): N39.0 - Urinary tract infection, site not specified Assessment/Plan: She has had multiple presentations the same way. Her urinalysis is abnormal. She has been started on empiric IV antibiotic. Plan: Continue with empiric antibiotics Await blood culture and urine culture results to tailor antibiotics (3) KJ (acute kidney injury) Assessment/Plan: Usually she has rapid improvement with IV hydration Plan: She will be placed in Observation status Continue IV hydration Avoid nephrotoxins Follow BMP daily (4) Rash of torso Assessment/Plan: She has a raised, non- confluent red rash of her lower back, both buttocks and posterior thighs Plan: She has been on and we will continue Diflucan p.o. Will also add topical nystatin powder Images need to be been taken to document this. Chronic issues: CAD s/p [place] HFrEF 35-40% HTN Hypothyroidism Hx of seizures HLD -cont home meds w hold parameters - Lab Results Fish Bones: 05/06/22 15:39 05/06/22 15:39
[2022-05-07] MEDS ORDERED: SODIUM CHLORIDE FLUSH 0.9% 10 ML SYRINGE IVP PRN (01:42)
[2022-05-07] MEDS: SODIUM CHLORIDE 0.9% 1,000 ML IV SCH ×3 (02:09→18:52)
[2022-05-07 09:08] LABS: BASOPHILS # (AUTO) 0.2 10^3/uL (0.0-0.1); BASOPHILS % (AUTO) 2.1 %; EOSINOPHILS % (AUTO) 0.3 %; HCT - HEMATOCRIT 39.2 % (37.0-47.0); LYMPHOCYTES # (AUTO) 2.2 10^3/uL (1.5-3.5); LYMPHOCYTES % (AUTO) 24.7 %; MEAN CORPUSCULAR HEMOGLOBIN 27.5 pg (27.0-31.0); MEAN CORPUSCULAR HGB CONC 30.6 g/dL (32.0-36.0); MEAN CORPUSCULAR VOLUME 89.9 fL (81.0-99.0); MEAN PLATELET VOLUME 11.1 fL (7.9-10.8); MONOCYTES # (AUTO) 0.7 10^3/uL (0.0-1.0); MONOCYTES % (AUTO) 7.4 %; NEUTROPHILS # (AUTO) 5.8 10^3/uL (1.5-6.6); NEUTROPHILS % (AUTO) 65.3 %; PLT - PLATELET COUNT 280 10^3/uL (130-450); RED BLOOD COUNT 4.36 10^6/uL (4.20-5.40); RED CELL DISTRIBUTION WIDTH 15.2 % (12.0-15.0); WHITE BLOOD COUNT 8.9 x10^3/uL (4.8-10.8)
[2022-05-07] MEDS: HEPARIN 5,000 UNIT/ML VIAL SUBQ SCH ×2 (09:13→20:14)
[2022-05-07 09:14] LABS: CREATININE 1.4 mg/dL (0.4-1.0); POTASSIUM 3.7 mmol/L (3.5-5.0)
[2022-05-07] MEDS: SODIUM CHLORIDE FLUSH 0.9% 10 ML SYRINGE IVP SCH ×2 (09:15→18:52)
[2022-05-07] MEDS: CEFEPIME 2 GM in SODIUM CHLORIDE 0.9% MINIBAG 100 ML IV SCH (09:15)
[2022-05-07] MEDS: NYSTATIN POWDER 15 GM TOP SCH ×2 (13:57→20:14)
[2022-05-07] MEDS: NYSTATIN CREAM 15 GM TUBE TOP SCH ×2 (13:58→20:15)
[2022-05-07] MEDS ORDERED: cefTRIAXone 1 GM VIAL IVP SCH (17:00)
--- NOTE | 2022-05-07 18:07 | PROVIDER PROGRESS NOTE ---
Assessment/Plan - Problem List (1) Encephalopathy Assessment/Plan: She has had many presentations like this and most reveal that she is dehydrated with KJ and has a UTI. We also suspect but have never been able to show that she may ingest something. For quite some time, maybe 2 years ago, she was prone to using Sudafed extensively. But she has denied Benadryl or sleep aid use in the past. She lives alone. There have been multiple APS reports submitted, and to our knowledge (ER and Hospitalist providers), nothing is ever found, and no changes are made in her living situation. Alternatively, possibly she easily develops mental status changes because of her underlying multiple sclerosis. Also we have suspected that she may have a personality disorder. She is awake, disoriented but can feed herself today. She says she cannot go home yet today. Plan: Continue to treat with IV fluids Change to IV cefepime given the history of E. coli resistant organisms Neurochecks may be stopped (2) UTI (urinary tract infection) Qualifiers: Urinary tract infection type: site unspecified Hematuria presence: without hematuria Qualified Code(s): N39.0 - Urinary tract infection, site not specified Assessment/Plan: She has had multiple presentations the same way. Her urinalysis is abnormal now. The prelim urine cx shows a GNR. She was started on empiric IV antibiotics. Plan: Continue with empiric antibiotics Await blood culture and urine culture results to tailor antibiotics (3) KJ (acute kidney injury) Assessment/Plan: Usually she has rapid improvement with IV hydration Plan: She will continue to be in Observation status Continue IV hydration Avoid nephrotoxins Follow BMP daily (4) Rash of torso Assessment/Plan: She has a raised, non- confluent red rash of her lower back, both buttocks and p osterior thighs. There is also a different probable fungal rash under her breasts for which nurses are requesting nystatin Plan: Will add topical nystatin powder Images need to be been taken to document this. Chronic issues: CAD s/p [place] HFrEF 35-40% HTN Hypothyroidism Hx of seizures HLD -cont home meds w hold parameters - Current Meds Current Meds: Current Medications Generic Name Dose Route Start Last Admin Trade Name Freq PRN Reason Stop Dose Admin Heparin Sodium (Porcine) 5,000 unit 05/07/22 09:00 05/07/22 09:13 Heparin 5,000 Unit/Ml Vial SUBQ 5,000 unit BID JIN Administration Sodium Chloride 1,000 mls @ 125 mls/hr 05/07/22 02:00 05/07/22 10:49 Normal Saline 0.9% IV 125 mls/hr .Q8H JIN Administration Cefepime HCl 2 gm/ Sodium 100 mls @ 200 mls/hr 05/07/22 09:00 05/07/22 09:50 Chloride IV Infused DAILY JIN Infusion Nystatin 1 applic 05/07/22 13:00 05/07/22 13:57 Nystatin Powder 15 Gm TOP 1 applic BID JIN Administration Nystatin 1 applic 05/07/22 13:00 05/07/22 13:58 Nystatin Cream 15 Gm Tube TOP 1 applic BID JIN Administration Sodium Chloride 10 ml 05/07/22 01:42 05/07/22 02:09 Sodium Chloride Flush 0.9% 10 Ml Syringe IVP 10 ml PRN PRN Administration NEEDED PER PROVIDER ORDERS Sodium Chloride 10 ml 05/07/22 09:00 05/07/22 09:15 Sodium Chloride Flush 0.9% 10 Ml Syringe IVP Not Given 0100,0900,1700 JIN Sterile Water 10 ml 05/07/22 17:00 05/07/22 15:11 Water For Injection,Sterile 10 Ml Vial MC Not Given Q24H JIN - Lab Result Fish Bone Diagrams: 05/07/22 08:56 05/07/22 08:56 - Additional Planning My Orders: My Active Orders 05/07/22 09:00 Cefepime 2 gm Sodium Chloride 0.9% Minibag [Normal Saline 0.9% Minibag] 100 ml IV DAILY 05/07/22 13:00 Nystatin Cream [Mycostatin Cream] 1 applic TOP BID Nystatin [Nystop] 1 applic TOP BID Subjective - Subjective Patient Reports: Feeling Better (She is slightly more awake but only answers with one-word answers. Her eyes are glazed but she is feeding herself. Later in the day I hear her shouting out "help") Objective Vital Signs: Vital Signs - 24 hr 05/06/22 05/06/22 05/07/22 18:15 21:00 00:18 Temperature 36.6 C 37 C 36.5 C Heart Rate [ 58 L 63 73 Brachial] Respiratory 16 18 18 Rate Blood Pressure [Left Brachial artery] Blood Pressure 131/96 H 107/60 99/72 [Right Brachial artery] O2 Saturation 99 98 95 05/07/22 05/07/22 05/07/22 04:47 08:00 11:47 Temperature 36.2 C L 36.7 C 36.5 C Heart Rate [ 63 60 70 Brachial] Respiratory 18 20 18 Rate Blood Pressure [Left Brachial artery] Blood Pressure 106/54 L 93/52 L 92/49 L [Right Brachial artery] O2 Saturation 97 97 94 05/07/22 15:57 Temperature 36.4 C L Heart Rate [ 69 Brachial] Respiratory 18 Rate Blood Pressure 89/44 L [Left Brachial artery] Blood Pressure [Right Brachial artery] O2 Saturation 96 Oxygen O2 Source [With Activity] Room air O2 Source [Without Activity] Room air O2 Source Room air I&O (Last 24 Hrs): Intake and Output Totals x24h 05/05/22 05/06/22 05/07/22 23:59 23:59 23:59 Intake Total 1895.0 Output Total 1 Balance -1 1895.0 General: Alert, No acute distress HEENT: Mucous membr. moist/pink, Other (edentulous) Neck: Supple, Other (Cannot evaluate JVP due to obesity) Neuro: Alert, Disoriented, Non Focal Cardiovascular: No murmurs Respiratory: No respiratory distress Abdomen: Soft, No tenderness Extremities: No clubbing, No edema Comments/Notes: Red papular rash, none confluent, seen on both buttocks and both posterior thighs. - Results Results: Laboratory Results WBC 8.9 x10^3/uL (4.8-10.8) 05/07/22 08:56 RBC 4.36 10^6/uL (4.20-5.40) 05/07/22 08:56 Hgb 12.0 g/dL (12.0-16.0) 05/07/22 08:56 Hct 39.2 % (37.0-47.0) 05/07/22 08:56 MCV 89.9 fL (81.0-99.0) 05/07/22 08:56 MCH 27.5 pg (27.0-31.0) 05/07/22 08:56 MCHC 30.6 g/dL (32.0-36.0) L 05/07/22 08:56 RDW 15.2 % (12.0-15.0) H 05/07/22 08:56 Plt Count 280 10^3/uL (130-450) 05/07/22 08:56 MPV 11.1 fL (7.9-10.8) H 05/07/22 08:56 Neut # (Auto) 5.8 10^3/uL (1.5-6.6) 05/07/22 08:56 Lymph # (Auto) 2.2 10^3/uL (1.5-3.5) 05/07/22 08:56 Saline # (Auto) 0.7 10^3/uL (0.0-1.0) 05/07/22 08:56 Eos # (Auto) 0.0 10^3/uL (0.0-0.7) 05/07/22 08:56 Baso # (Auto) 0.2 10^3/uL (0.0-0.1) H 05/07/22 08:56 Absolute Nucleated RBC 0.00 x10^3/uL 05/07/22 08:56 Nucleated RBC % 0.0 /100WBC 05/07/22 08:56 Sodium 141 mmol/L (135-145) 05/07/22 08:56 Potassium 3.7 mmol/L (3.5-5.0) 05/07/22 08:56 Chloride 104 mmol/L (101-111) 05/07/22 08:56 Carbon Dioxide 25 mmol/L (21-32) 05/07/22 08:56 Anion Gap 12.0 (6-13) 05/07/22 08:56 BUN 40 mg/dL (6-20) H 05/07/22 08:56 Creatinine 1.4 mg/dL (0.4-1.0) H 05/07/22 08:56 Estimated GFR (MDRD) 38 (>89) L 05/07/22 08:56 Glucose 155 mg/dL (70-100) H 05/07/22 08:56 Calcium 9.0 mg/dL (8.5-10.3) 05/07/22 08:56 Total Bilirubin 0.4 mg/dL (0.2-1.0) 05/06/22 15:39 AST 15 IU/L (10-42) 05/06/22 15:39 ALT 14 IU/L (10-60) 05/06/22 15:39 Alkaline Phosphatase 141 IU/L (42-121) H 05/06/22 15:39 Ammonia 10.3 umol/L (7-35) 05/06/22 15:39 Total Creatine Kinase 131 IU/L (22-269) 05/06/22 15:39 Total Protein 8.8 g/dL (6.7-8.2) H 05/06/22 15:39 Albumin 4.3 g/dL (3.2-5.5) 05/06/22 15:39 Globulin 4.5 g/dL (2.1-4.2) H 05/06/22 15:39 Albumin/Globulin Ratio 1.0 (1.0-2.2) 05/06/22 15:39 Lipase 44 U/L (22-51) 05/06/22 15:39 TSH 2.70 uIU/mL (0.34-5.60) 05/06/22 15:39 Urine Color YELLOW 05/06/22 16:20 Urine Clarity CLEAR (CLEAR) 05/06/22 16:20 Urine pH 6.0 PH (5.0-7.5) 05/06/22 16:20 Ur Specific [place] 1.015 (1.002-1.030) 05/06/22 16:20 Urine Protein NEGATIVE mg/dL (NEGATIVE) 05/06/22 16:20 Urine Glucose (UA) NEGATIVE mg/dL (NEGATIVE) 05/06/22 16:20 Urine Ketones NEGATIVE mg/dL (NEGATIVE) 05/06/22 16:20 Urine Occult Blood NEGATIVE (NEGATIVE) 05/06/22 16:20 Urine Nitrite POSITIVE (NEGATIVE) H 05/06/22 16:20 Urine Bilirubin NEGATIVE (NEGATIVE) 05/06/22 16:20 Urine Urobilinogen 0.2 (NORMAL) E.U./dL (NORMAL) 05/06/22 16:20 Ur Leukocyte Esterase NEGATIVE (NEGATIVE) 05/06/22 16:20 Urine RBC None Seen /HPF (0-5) 05/06/22 16:20 Urine WBC 4-5 /HPF (0-5) 05/06/22 16:20 Ur Squamous Epith Cells FEW Squamous (<= Few) 05/06/22 16:20 Urine Bacteria Moderate /HPF (None Seen) H 05/06/22 16:20 Urine Casts 0-2 Hyaline Casts /LPF 05/06/22 16:20 Ur Microscopic Review INDICATED 05/06/22 16:20 Urine Culture Comments INDICATED 05/06/22 16:20 Nasal Adenovirus (PCR) NOT DETECTED 05/06/22 16:35 Nasal B. parapertussis DNA (PCR) NOT DETECTED 05/06/22 16:35 Nasal Coronavir 229E PCR NOT DETECTED 05/06/22 16:35 Nasal Coronavir HKU1 PCR NOT DETECTED 05/06/22 16:35 Nasal Coronavir NL63 PCR NOT DETECTED 05/06/22 16:35 Nasal Coronavir OC43 PCR NOT DETECTED 05/06/22 16:35 Nasal Enterovir/Rhinovir PCR NOT DETECTED 05/06/22 16:35 Nasal Influenza B PCR NOT DETECTED 05/06/22 16:35 Nasal Influenza A PCR NOT DETECTED 05/06/22 16:35 Nasal Parainfluen 1 PCR NOT DETECTED 05/06/22 16:35 Nasal Parainfluen 2 PCR NOT DETECTED 05/06/22 16:35 Nasal Parainfluen 3 PCR NOT DETECTED 05/06/22 16:35 Nasal Parainfluen 4 PCR NOT DETECTED 05/06/22 16:35 Nasal RSV (PCR) NOT DETECTED 05/06/22 16:35 Nasal B.pertussis DNA PCR NOT DETECTED 05/06/22 16:35 Nasal C.pneumoniae (PCR) NOT DETECTED 05/06/22 16:35 Jaya Human Metapneumo PCR NOT DETECTED 05/06/22 16:35 Nasal M.pneumoniae (PCR) NOT DETECTED 05/06/22 16:35 Nasal SARS-CoV-2 (PCR) NOT DETECTED 05/06/22 16:35 Salicylates < 6.0 mg/dL 05/06/22 15:39 Urine Opiates Screen POSITIVE (NEGATIVE) H 05/06/22 16:20 Ur Oxycodone Screen NEGATIVE (NEGATIVE) 05/06/22 16:20 Urine Methadone Screen NEGATIVE (NEGATIVE) 05/06/22 16:20 Ur Propoxyphene Screen NEGATIVE (NEGATIVE) 05/06/22 16:20 Acetaminophen < 10 ug/mL (10-30) L 05/06/22 15:39 Ur Barbiturates Screen NEGATIVE (NEGATIVE) 05/06/22 16:20 Ur Tricyclics Screen NEGATIVE (NEGATIVE) 05/06/22 16:20 Ur Phencyclidine Scrn NEGATIVE (NEGATIVE) 05/06/22 16:20 Ur Amphetamine Screen NEGATIVE (NEGATIVE) 05/06/22 16:20 U Methamphetamines Scrn NEGATIVE (NEGATIVE) 05/06/22 16:20 U Benzodiazepines Scrn NEGATIVE (NEGATIVE) 05/06/22 16:20 Urine Cocaine Screen NEGATIVE (NEGATIVE) 05/06/22 16:20 U Cannabinoids Screen NEGATIVE (NEGATIVE) 05/06/22 16:20 Ethyl Alcohol < 5.0 mg/dL 05/06/22 15:39 - Procedures Procedures: Procedures INSERTION OF INFUSION DEV INTO SUP VENA CAVA, PERC APPROACH (12/10/21)
[2022-05-07] MEDS: oxyCODONE 5 MG TABLET PO PRN (19:00)
[2022-05-07] MEDS: ACETAMINOPHEN 325 MG TABLET PO PRN (19:01)
[2022-05-07] MEDS: levETIRAcetam 250 MG TABLET PO SCH (20:14)
[2022-05-08] MEDS: ACETAMINOPHEN 325 MG TABLET PO PRN ×5 (01:37→23:42)
[2022-05-08] MEDS: oxyCODONE 5 MG TABLET PO PRN ×4 (02:19→19:58)
[2022-05-08] MEDS: SODIUM CHLORIDE 0.9% 1,000 ML IV SCH ×2 (02:20→11:34)
[2022-05-08] MEDS: SODIUM CHLORIDE FLUSH 0.9% 10 ML SYRINGE IVP SCH ×3 (02:20→20:27)
[2022-05-08] MEDS: LEVOTHYROXINE 25 MCG TABLET PO SCH (06:57)
[2022-05-08] MEDS: levETIRAcetam 250 MG TABLET PO SCH ×2 (08:01→20:25)
[2022-05-08] MEDS: CEFEPIME 2 GM in SODIUM CHLORIDE 0.9% MINIBAG 100 ML IV SCH (08:02)
[2022-05-08] MEDS: HEPARIN 5,000 UNIT/ML VIAL SUBQ SCH ×2 (08:07→20:26)
[2022-05-08] MEDS: NYSTATIN POWDER 15 GM TOP SCH ×2 (10:06→20:25)
[2022-05-08] MEDS: LOSARTAN 50 MG TABLET PO SCH (10:06)
[2022-05-08] MEDS: NYSTATIN CREAM 15 GM TUBE TOP SCH ×2 (10:07→20:25)
--- NOTE | 2022-05-08 18:30 | PROVIDER PROGRESS NOTE ---
Subjective - Subjective Pt reports feeling: Improved Subjective: 66-year-old female with seizure disorder, coronary artery disease, hypothyroidism, COPD, hypertension, full sclerosis, chronic congestive heart failure with reduced ejection fraction (35 to 40% ejection fraction) admitted with multidrug-resistant E. coli UTI and acute metabolic encephalopathy. Patient is able to tell me that she is in the hospital, that she has a urinary tract infection. She tells me it is May 2021. She complains of being hungry and wanting a pain medication. Of note, she was medicated about 45 kilo jaden prior to my evaluation. An APS referral was done this admission. APS is requesting a cognitive evaluation. Objective - Vital Signs/Intake & Output Vital Signs: Vital Signs x48h Temp Pulse Resp BP Pulse Ox 05/08/22 15:36 36.8 C 66 19 109/64 95 05/08/22 11:20 115/49 L 05/08/22 11:15 36.5 C 71 20 114/58 L 100 Intake & Output: Intake & Output 05/05/22 05/06/22 05/07/22 05/08/22 23:59 23:59 23:59 23:59 Intake Total 3295.0 2493.333 Output Total 1 Balance -1 3295.0 2493.333 - Objective General Appearance: positive: Mild distress, Other (mildly agitated, but answers questions) Respiratory: positive: No respiratory distress, Breath sounds nml. negative: Wheezes, Rales, Rhonchi Cardiovascular: positive: Regular rate & rhythm, No murmur Abdomen: positive: No organomegaly, Nml bowel sounds, No distention, Tenderness Skin: positive: Color nml, No rash, Warm, Dry Extremities: positive: Non-tender Neurologic/Psychiatric: positive: Disoriented to time - Lab Results Fish Bones: 05/07/22 08:56 05/07/22 08:56 Assessment/Plan - Problem List (1) Acute encephalopathy Impression: Gradually improving. Likely related to her underlying UTI. Will obtain a cognitive evaluation. (2) UTI (urinary tract infection) Impression: Multiple resistances noted to the E. coli infection. This is consistent with prior. It is sensitive to carbapenems as well as cefepime. She is tolerating cefepime and is showing signs of improvement. Qualifiers: Urinary tract infection type: acute cystitis Hematuria presence: without hematuria Qualified Code(s): N30.00 - Acute cystitis without hematuria (3) KJ (acute kidney injury) Impression: Improving overall. Creatinine on admission was 2.3. It is down to 1.4 yesterday. We will recheck labs in the morning. (4) Congestive heart failure Impression: Patient appears euvolemic at this time. We will continue monitoring her fluid status carefully.Appears to be on carvedilol as well as losartan on an outpatient basis. Additionally aspirin is listed on her home medication list. Medications have not yet been reconciled. Qualifiers: Heart failure type: unspecified Heart failure chronicity: acute on chronic Qualified Code(s): I50.9 - Heart failure, unspecified (5) Seizure disorder Impression: Continue Keppra (7) Mechanical deep vein thrombosis (DVT) prophylaxis in place Impression: On heparin
[2022-05-09] MEDS: oxyCODONE 5 MG TABLET PO PRN ×2 (02:07→08:24)
[2022-05-09] MEDS: SODIUM CHLORIDE FLUSH 0.9% 10 ML SYRINGE IVP SCH ×2 (02:09→08:27)
[2022-05-09 05:36] LABS: BASOPHILS % (AUTO) 2.1 %; EOSINOPHILS % (AUTO) 7.2 %; HCT - HEMATOCRIT 39.1 % (37.0-47.0); HGB - HEMOGLOBIN 12.1 g/dL (12.0-16.0); LYMPHOCYTES % (AUTO) 44.7 %; MEAN CORPUSCULAR HEMOGLOBIN 28.4 pg (27.0-31.0); MEAN CORPUSCULAR HGB CONC 30.9 g/dL (32.0-36.0); MEAN CORPUSCULAR VOLUME 91.8 fL (81.0-99.0); MEAN PLATELET VOLUME 10.9 fL (7.9-10.8); MONOCYTES % (AUTO) 6.4 %; NEUTROPHILS % (AUTO) 39.4 %; PLT - PLATELET COUNT 350 10^3/uL (130-450); RED BLOOD COUNT 4.26 10^6/uL (4.20-5.40); RED CELL DISTRIBUTION WIDTH 15.5 % (12.0-15.0); WHITE BLOOD COUNT 9.4 x10^3/uL (4.8-10.8)
[2022-05-09 05:47] LABS: ABNORMAL LYMPHS % (MANUAL) 0 %; BAND NEUTROPHILS % (MANUAL) 0 %
[2022-05-09 05:50] LABS: CALCIUM 9.7 mg/dL (8.5-10.3); CREATININE 1.1 mg/dL (0.4-1.0); POTASSIUM 3.8 mmol/L (3.5-5.0)
[2022-05-09 06:12] LABS: BASOPHILS # (MANUAL) 0.2 10^3/uL (0-0.1); BASOPHILS % (MANUAL) 2 %; EOSINOPHILS # (MANUAL) 0.8 10^3/uL (0-0.7); LYMPHOCYTES # (MANUAL) 4.6 10^3/uL (1.5-3.5); LYMPHOCYTES % (MANUAL) 49 %; MONOCYTES # (MANUAL) 0.3 10^3/uL (0.0-1.0); NEUTROPHILS # (MANUAL) 3.6 10^3/uL (1.5-6.6)
[2022-05-09 06:13] LABS: DIFFERENTIAL COMMENT MANUAL DIFFERENTIAL; PLATELET ESTIMATE, MANUAL NORMAL (130-450,000) (NORMAL); PLATELET MORPHOLOGY 1+ LARGE PLATELETS (NORMAL); RBC MORPHOLOGY (MULTIPLE) NORMAL APPEARANCE (NORMAL); WBC MORPHOLOGY (MULTIPLE) NORMAL APP (NORMAL)
[2022-05-09] MEDS: LEVOTHYROXINE 25 MCG TABLET PO SCH (06:30)
[2022-05-09] MEDS: ACETAMINOPHEN 325 MG TABLET PO PRN (06:30)
[2022-05-09] MEDS: HEPARIN 5,000 UNIT/ML VIAL SUBQ SCH (08:23)
[2022-05-09] MEDS: levETIRAcetam 250 MG TABLET PO SCH (08:26)
[2022-05-09] MEDS: LOSARTAN 50 MG TABLET PO SCH (08:26)
[2022-05-09] MEDS: CEFEPIME 2 GM in SODIUM CHLORIDE 0.9% MINIBAG 100 ML IV SCH (08:27)
[2022-05-09] MEDS: NYSTATIN CREAM 15 GM TUBE TOP SCH (08:27)
[2022-05-09] MEDS: NYSTATIN POWDER 15 GM TOP SCH (08:27)
[2022-05-09 09:02] VITALS: BP 119/60
--- NOTE | 2022-05-09 12:23 | Discharge Plan ---
Discharge Plan Problem Reviewed?: Yes Disposition: Home, Self Care Condition: Stable Diet: Regular Activity Restrictions: Activity as Tolerated Shower Restrictions: No Driving Restrictions: Yes (no driving) Health Concerns: Mrs. Lizarraga, you have been admitted multiple times due to altered level of consciousness. You get very confused, and sometimes you become so sleepy you were unresponsive. This is 1 of many episodes in the last few years. Sometimes we find that you have been using too much [id number]-[id number] medication like Sudafed. Sometimes we find that you have taken your own prescription medication incorrectly. Sometimes we have not find out why you come in so confused and comatose. But as time is gone on, we have found you to be less and less able to take care of yourself. With this current visit, we had Occupational Therapy work with you. We did not know if you were just tired and in a bad mood that you did not want a work with physical therapy, but you failed your evaluation. Their evaluations we do to decide what patient is able to take care of themselves and it adds up to 30 points. You only scored 11 out of 30. Again we do not know if this is because you have dementia, or because you were in a bad mood and did not want to cooperate with the occupational therapist. In any case we called Adult Protective Services to make sure that you are safe to stay in your own home. With this current episode of confusion, you have a urinary tract infection. Unfortunately the bacteria, E. coli, is resistant to all lot of antibiotics. And we were not able to give you the normal antibiotics we give for E. coli. And we had to give you cefepime. This bacteria is sensitive to nitrofurantoin. So we ask you to take nitrofurantoin for 4 more days at home. You are now stable to go home. You were eating, taking enough by mouth for fluids. You keep on wanting pain medicines and we keep on reminding you that we cannot give you pain medicines since you have a history over overusing them or using them incorrectly. Plan of Treatment: To return home. At this time we do not think this is a safe discharge but you do have the right to ask to go home. We think that you are too confused, and no longer able to take care of yourself appropriately. We are recommending discharge to a permanent living facility but you do not want to go there yet. Care Goals: To stay at home, living independently, for as long as possible. Assessment: Patient has cognitive deficits, but is oriented to person, place, and time at discharge. She is declining placement. She is resistant to working with occupational and physical therapy. We also wonder if she is noncompliant with taking her medications, prescription, at home. No Smoking: If you smoke, Please STOP! Call for help. Follow-up with: Yenny Markham ARNP [Primary Care Provider] -
--- NOTE | 2022-05-09 12:35 | PHARMACY PROGRESS NOTE ---
- Best Possible Medication History Admit Date and Time: 05/08/22 6585 Processed by: Pharmacy Medication History completed: Yes Patient Interview: Completed Secondary Source(s): Pharmacy records (pt doesn't know meds well and lost her med list) As the person ultimately responsible for medication therapy, providers are able to order a medication from an existing home medication list in [facility] via the "Reconcile Routine" prior to Confirmation of that medication by client application support engineer. Such practice is discouraged except when the physician, in their clinical judgment, deems that a medical need exists for a medication without regard to previous use.
--- NOTE | 2022-05-09 12:38 | DISCHARGE SUMMARY ---
"Discharge Summary Admit Date: 05/06/22 Discharge Date: 05/09/22 Discharging Provider: Kassie Marquez MD Primary Care Provider: MACKENZIE Ibarra Code Status: Attempt Resuscitation Condition at Discharge: Stable Discharge Disposition: 01 Home, Self Care - DIAGNOSES Discharge Diagnoses with Status of Each Condition: 1. Acute metabolic encephalopathy 2. UTI 3. Multidrug-resistant E. coli 4. Acute on chronic kidney injury 5. Rash of torso 6. Chronic heart failure with reduced ejection fraction 35 to 40% 7. Hypertension 8. Hypothyroidism 9. History of seizures 10. Cognitive deficits 11. Unsafe at home - HPI History of Present Illness: 66yo WF with pmhx of seizure disorder, coronary disease, hypothyroidism, COPD, HTN, multiple sclerosis, HFrEF 35-40% presents to ED with altered mental status. Pt has had multiple admissions to ED with similar complaint, with about 8 admissions for AMS in 2021. History is unable to obtained from patient as she lethargic. History obtained from ED physician and chart review. No are documented complaints of pain anywhere, no chest pain,abdominal pain, fever, chills, nausea, vomiting ,diarrhea. She falls frequently at home. She calls out for help when she is confused. Neighbors find her and call an ambulance and this is how she presented again. She presented with the same presentation, was found down by neighbors who called an ambulance. In the ED, she had a head CT and c-spine performed due to AMS, which showed no new abnormalities. Her UA was positive. 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 In ED she received IV Ceftriaxone today. Her labs were noted to have elevated WBC of 13, elevated BUN/creatinine (baseline creat is 1.0). Her Ammonia level was 10. Her tox screen was (+) for opiates. Her respiratory PCR panel was all neg. She was started on IVF. The ED provider reached out to the Hospitalist Team for further management of her AMS and probable UTI. - Past Medical History Cardiovascular: reports: Hypertension, Coronary artery disease, [place] Respiratory: reports: None Neuro: reports: Seizure disorder, Multiple sclerosis Endocrine/Autoimmune: reports: Other GI: reports: None HARVEST SUPERVISOR: reports: Other : reports: Chronic bladder infection HEENT: reports: None Psych: reports: Depression, ADD/ADHD Musculoskeletal: reports: Chronic back pain, Other Derm: reports: Other MRSA Hx?: Yes - Past Surgical History Ortho: reports: Spine surgery /HARVEST SUPERVISOR: reports: Hysterectomy Cardiovascular: reports: Coronary stent, Cardiac catheterization - CONSULTS | PROCEDURES Procedures: 1. Cervical spine CT with no evidence of fracture or traumatic malalignment. Multilevel degenerative disc disease and arthropathy. Spiculated nodule in the right lung apex associated with pulmonary emphysema, stable from prior CTs 2. Head CT with moderate atrophy and chronic ischemic changes without intracranial hemorrhage or mass-effect. 3. Urine culture with multidrug-resistant E. coli. Resistant to ampicillin, Unasyn, cefazolin, ceftriaxone, ciprofloxacin, Levaquin, Bactrim - HOSPITAL COURSE Hospital Course: As she has done with multiple admissions, Ms. Lizarraga gradually improved with regards to her metabolic encephalopathy. With this admission we feel is due to underlying UTI. She continues to have multiple drug resistances to her E. coli infection and it is sensitive to carbapenems as well as cefepime. She tolerated the cefepime without any problems on completed 3 days of antibiotic therapy. Acute kidney injury improved. She was 1.6 on admission and 1.0 at discharge. From a congestive heart failure perspective she appears euvolemic. She is on carvedilol and losartan in the outpatient basis. Keppra was continued for her seizure disorder. When the patient was back to her baseline status of being alert, oriented, she was felt stable enough to return to her usual home situation. But again, we strongly feel that this patient should not be living alone at home. Adult Protective Services has been notified many times. Her name is and at [phone]. The investigator welfare has requested that we notify her if the patient returns to the hospital. At discharge Ms. Lizarraga was oriented to person place. She knew the day of the week, the month and the year but not the exact time. She was able to follow commands. She speaks with a very loud voice and when you ask her why she is yelling at you she has no idea she is yelling at you. Neck is supple. Lungs are clear. No respiratory distress. Occasional cough, productive of small amount of phlegm that she swallows. Abdomen is soft and nontender. She is incontinent of urine and uses a pure wick or a pad. She is eating 50 to 100% of her food. Last bowel movement was May 03. She appears to be a very irrational demanding lady. But we really strongly feel that she really has no awareness of how she comes across. Speech can sometimes get garbled. But she is able to feed herself, dress herself. She is disheveled. Pannus underneath her breast and abdomen can be reddened and we emphasize hygiene at discharge. At discharge temperature is 37.1. Heart rate 75. Blood pressure 119/60. Respirations 18. 94% on room air. Short statured white female. Disheveled. Neck supple with shotty adenopathy. Lungs with coarse upper airway sounds but clear. No respiratory distress. No use of accessory muscles. Able to communicate and yell quite effectively without losing her breath. Regular rate and rhythm and a systolic ejection murmur. Abdomen is soft, nontender. Extremi ties are without edema. - ALLERGIES Allergies/Adverse Reactions: Allergies Allergy/AdvReac Type Severity Reaction Status Date / Time No Known Drug Allergies Allergy Verified 05/14/22 11:44 - MEDICATIONS Home Medications: Ambulatory Orders Medication Instructions Recorded Confirmed Atorvastatin [Lipitor] 40 mg PO QPM #0 12/21/20 05/14/22 Losartan Potassium 12.5 mg PO DAILY 04/03/22 05/14/22 Fluticasone [Flonase] 1 sprays WILLIE BID PRN 04/20/22 05/14/22 carvediloL [Coreg] 3.125 mg PO BID 04/20/22 05/14/22 Acetaminophen [Acetaminophen Extra 1,000 mg PO TID PRN 04/24/22 05/14/22 Strength] Diclofenac Sodium Dr [Voltaren] 1 tab PO BID PRN 04/24/22 05/14/22 Spironolactone [Aldactone] 12.5 mg PO DAILY 05/09/22 05/14/22 Levetiracetam [Keppra] 500 mg PO BID 05/15/22 05/15/22 Levothyroxine Sodium 50 mcg PO DAILY 05/15/22 05/15/22 - LABS Result Diagrams: 05/09/22 05:17 05/09/22 05:17"
== END 2022-05-09 13:00 | disposition home or self-care (01) | DRG 689 ==
LOC: EDUNIT# → ED 14:42 → SUPCPDRO 14:42 → MS2 17:35 → OBSVTOIN 05-08 14:55
PROVIDERS: ADMIT Internal Medicine; ATTEND Specialist
DX: N30.00 Acute cystitis without hematuria (principal); G93.40 Encephalopathy, unspecified; R41.82 Altered mental status, unspecified; Z20.822 Contact with and (suspected) exposure to COVID-19; G93.41 Metabolic encephalopathy; R21 Rash and other nonspecific skin eruption; Z16.24 Resistance to multiple antibiotics; I11.0 Hypertensive heart disease with heart failure; I50.20 Unspecified systolic (congestive) heart failure; N17.9 Acute kidney failure, unspecified; I50.22 Chronic systolic (congestive) heart failure; I13.0 Hypertensive heart and chronic kidney disease with heart failure and stage 1 through stage 4 chronic kidney disease, or unspecified chronic kidney disease; B96.20 Unspecified Escherichia coli [E. coli] as the cause of diseases classified elsewhere; Z91.81 History of falling; N18.9 Chronic kidney disease, unspecified; B36.9 Superficial mycosis, unspecified; E03.9 Hypothyroidism, unspecified; F09 Unspecified mental disorder due to known physiological condition; I25.10 Atherosclerotic heart disease of native coronary artery without angina pectoris; J44.9 Chronic obstructive pulmonary disease, unspecified; G35 Multiple sclerosis; G40.909 Epilepsy, unspecified, not intractable, without status epilepticus; I25.2 Old myocardial infarction; F90.9 Attention-deficit hyperactivity disorder, unspecified type; F32.A Depression, unspecified; F17.200 Nicotine dependence, unspecified, uncomplicated; E78.5 Hyperlipidemia, unspecified
CPT/HCPCS: 36415; 51701; 70450; 72125; 80048; 80053; 80306; 80307; 81001; 82140; 82550; 83690; 84443; 85025; 87077; 87086; 87181; 87633; 96365; 96366; 96372; 96375; 97166; 99285; A9270; G0378; G0480; 80320; 80329; 81003

== ENCOUNTER 2022-05-10 07:15 | Outpatient (CLI) | payer MEDICARE, MEDICAID | END 2022-05-10 07:16 | disposition EMS.NT | LOC: EMS 07:15 | DX: S90.414A Abrasion, right lesser toe(s), initial encounter (principal); W19.XXXA Unspecified fall, initial encounter; Y92.039 Unspecified place in apartment as the place of occurrence of the external cause ==

== ENCOUNTER 2022-05-14 11:13 | Outpatient (CLI) | payer MEDICARE, MEDICAID | END 2022-05-14 11:14 | disposition critical access hospital (66) | LOC: EMS 11:13 | DX: M54.50 Low back pain, unspecified (principal); M25.522 Pain in left elbow; R53.1 Weakness; W18.39XA Other fall on same level, initial encounter; Y92.000 Kitchen of unspecified non-institutional (private) residence as the place of occurrence of the external cause | CPT/HCPCS: A0425; A0429 ==

== ENCOUNTER 2022-05-14 11:32 | Observation (INO) | payer MEDICARE, MEDICAID ==
--- NOTE | 2022-05-14 11:48 | ED Physician Documentation ---
History of Present Illness - Stated complaint Stated Complaint: GLF - Additonal information Additional information: History obtained from chart as well as EMS. Patient is a poor historian. EMS brings a 66-year-old female into the emergency department after Occupational Therapy found her prone on the kitchen floor. It is unclear how long she had been on the kitchen floor perhaps as long as yesterday afternoon. She presents soiled of stool and urine. She states that it is May 2023. She screams when her lower back as well as her right leg are evaluated. This patient is a frequent visitor to the emergency department as well as her inpatient waiting for metabolic encephalopathy acute kidney injury and frequent falls. Past medical history includes seizure disorder, coronary artery disease, hypothyroidism, COPD, hypertension multiple sclerosis congestive heart failure with an EF of 35 to 40%. Review of Systems Unable to obtain: Confused, Other (Per EMS as well as chart review. Unreliable historian) PD PAST MEDICAL HISTORY - Past Medical History Cardiovascular: Hypertension, Coronary artery disease, [place] Respiratory: None Neuro: Seizure disorder, Multiple sclerosis Endocrine/Autoimmune: Other GI: None FIRE WATCHMAN: Other : Chronic bladder infection HEENT: None Psych: Depression, ADD/ADHD Musculoskeletal: Chronic back pain, Other Derm: Other - Past Surgical History Past Surgical History: Yes Ortho: Spine surgery /FIRE WATCHMAN: Hysterectomy Cardiovascular: Coronary stent, Cardiac catheterization - Present Medications Home Medications: Ambulatory Orders Medication Instructions Recorded Confirmed Atorvastatin [Lipitor] 40 mg PO QPM #0 12/21/20 05/09/22 Losartan Potassium 12.5 mg PO DAILY 04/03/22 05/09/22 Fluticasone [Flonase] 1 sprays WILLIE BID PRN 04/20/22 05/09/22 carvediloL [Coreg] 3.125 mg PO BID 04/20/22 05/09/22 Acetaminophen [Acetaminophen Extra 1,000 mg PO TID PRN 04/24/22 05/09/22 Strength] Diclofenac Sodium Dr [Voltaren] 1 tab PO BID PRN 04/24/22 05/09/22 Spironolactone [Aldactone] 12.5 mg PO DAILY 05/09/22 05/09/22 - Allergies Allergies/Adverse Reactions: Allergies Allergy/AdvReac Type Severity Reaction Status Date / Time No Known Drug Allergies Allergy Verified 05/14/22 11:44 - Social History Does the pt smoke?: Yes Smoking Status: Never smoker Does the pt drink ETOH?: No Does the pt have substance abuse?: Yes - Immunizations Immunizations are current?: No - POLST Patient has POLST: No POLST Status: Full Code PD ED PE EXPANDED - General General: Alert, Other (Disheveled, urine and feces soaked clothing) - Cardiac Cardiac: Regular Rate, Radial strong equal, Pedal strong equal - Respiratory Respiratory: Clear to ausultation woody. No: Distress, Labored - Abdomen Abdomen: Normal Bowel sounds. No: Tender to palpation - Back Back: Other (Tenderness elicited with palpation of the right leg and left arm. Patient reports her low back hurts. No pain elicited with passive range of motion of the left leg. Not permitted with the right leg.) - Neuro Neuro: Confused, Disoriented, CNII-XII intact - GCS Eye Opening: Spontaneous Motor: Localizes to Pain Verbal: Confused Total: 13 Results - Vitals Vitals: Vital Signs - 24 hr 05/14/22 05/14/22 11:44 12:41 Temperature 36.4 C L Heart Rate 66 80 Respiratory 20 22 Rate Blood Pressure 132/99 H 125/64 O2 Saturation 92 95 Oxygen O2 Source [] Room air O2 Source [] Room air O2 Source Room air - Labs Labs: Laboratory Tests 05/14/22 05/14/22 05/14/22 11:58 11:58 11:58 WBC 14.6 H RBC 4.31 Hgb 12.1 Hct 39.0 MCV 90.5 MCH 28.1 MCHC 31.0 L RDW 15.9 H Plt Count 377 MPV 10.6 Neut # (Auto) 11.8 H Lymph # (Auto) 1.5 Loving # (Auto) 1.0 Eos # (Auto) 0.0 Baso # (Auto) 0.1 Absolute Nucleated RBC 0.00 Nucleated RBC % 0.0 Sodium 145 Potassium 3.8 Chloride 110 Carbon Dioxide 23 Anion Gap 12.0 BUN 32 H Creatinine 1.4 H Estimated GFR (MDRD) 38 L Glucose 111 H Lactic Acid Calcium 9.9 Total Bilirubin 0.9 AST 73 H ALT 28 Alkaline Phosphatase 120 Ammonia 12.4 Total Creatine Kinase 4015 H* B-Natriuretic Peptide Total Protein 8.3 H Albumin 4.0 Globulin 4.3 H Albumin/Globulin Ratio 0.9 L Lipase 31 Urine Color Urine Clarity Urine pH Ur Specific [place] Urine Protein Urine Glucose (UA) Urine Ketones Urine Occult Blood Urine Nitrite Urine Bilirubin Urine Urobilinogen Ur Leukocyte Esterase Urine RBC Urine WBC Ur Squamous Epith Cells Urine Bacteria Urine Casts Ur Microscopic Review Urine Culture Comments Urine Opiates Screen Ur Oxycodone Screen Urine Methadone Screen Ur Propoxyphene Screen Ur Barbiturates Screen Ur Tricyclics Screen Ur Phencyclidine Scrn Ur Amphetamine Screen U Methamphetamines Scrn U Benzodiazepines Scrn Urine Cocaine Screen U Cannabinoids Screen Ethyl Alcohol < 5.0 05/14/22 05/14/22 05/14/22 11:58 11:58 12:40 WBC RBC Hgb Hct MCV MCH MCHC RDW Plt Count MPV Neut # (Auto) Lymph # (Auto) Loving # (Auto) Eos # (Auto) Baso # (Auto) Absolute Nucleated RBC Nucleated RBC % Sodium Potassium Chloride Carbon Dioxide Anion Gap BUN Creatinine Estimated GFR (MDRD) Glucose Lactic Acid 1.6 Calcium Total Bilirubin AST ALT Alkaline Phosphatase Ammonia Total Creatine Kinase B-Natriuretic Peptide 468 H Total Protein Albumin Globulin Albumin/Globulin Ratio Lipase Urine Color YELLOW Urine Clarity HAZY Urine pH 6.0 Ur Specific [place] 1.025 Urine Protein 30 H Urine Glucose (UA) NEGATIVE Urine Ketones TRACE Urine Occult Blood LARGE H Urine Nitrite NEGATIVE Urine Bilirubin NEGATIVE Urine Urobilinogen 0.2 (NORMAL) Ur Leukocyte Esterase NEGATIVE Urine RBC 6-10 H Urine WBC 0-3 Ur Squamous Epith Cells MOD Squamous H Urine Bacteria Few Urine Casts 0-2 Hyaline Casts Ur Microscopic Review INDICATED Urine Culture Comments NOT INDICATED Urine Opiates Screen NEGATIVE Ur Oxycodone Screen POSITIVE H Urine Methadone Screen NEGATIVE Ur Propoxyphene Screen NEGATIVE Ur Barbiturates Screen NEGATIVE Ur Tricyclics Screen NEGATIVE Ur Phencyclidine Scrn NEGATIVE Ur Amphetamine Screen NEGATIVE U Methamphetamines Scrn NEGATIVE U Benzodiazepines Scrn NEGATIVE Urine Cocaine Screen NEGATIVE U Cannabinoids Screen NEGATIVE Ethyl Alcohol - Rads (name of study) left wrist xr Radiology: Final report received (Mild left wrist joint osteoarthritis. No gross acute left wrist fracture or dislocation) right foot xr Radiology: Final report received (right foot osteoarthristis. no gross acute fracture) cxr Radiology: Final report received (no acute cardiopulmonary pathology) Ct head Radiology: Final report received (CT head within normal limits, stable from prior) lumbar CT Radiology: Final report received (No velia acute abnormality can be seen. Intact hardware seen at L4 S1. Multilevel lumbar spine degenerative changes seen. Mild lexoconvex scoliotic curvature seen) PD Medical Decision Making - ED course Complexity details: reviewed old records, reviewed results, re-evaluated patient, considered differential, d/w patient ED course: This is a 66-year-old female who cannot reliably participate in the history who was brought into the emergency department by EMS when occupational therapy found her prone on the kitchen floor at home. It is unclear how long this patient had been on the floor. She states that she was trying to get some cereal but screams anytime she is touched. This patient is a frequent visitor to our healthcare institution and has multiple admissions and evaluations for altered mental status and metabolic encephalopathy often related to urinary tract infection. This patient was recently admitted to the hospital and discharged for same. There have been multiple APS reports made for the patient as it appears at this time she is no longer able to safely remain at home though when her mental status improves during hospitalization she has refused assisted living or adult family homes. She likely would benefit from a cognitive evaluation. On presentation she is grossly disheveled saturated in urine and feces. She is confused to the date and time though she is aware that she is at the hospital. Any physical exam or manipulation of her arms or legs results in screaming. Today we did obtain CBC, electrolytes, UA and CK. She does have a modest elevation in her white count of just over 14,000. Her BUN and creatinine are mildly elevated though do show some mild acute kidney injury. Her CK is over 4000. This is consistent with the history of a fall at home and being unable to get up. I suspect that the elevated CK at this time is contributing to her metabolic encephalopathy. I have ordered a liter of IV fluid though the patient will need to be admitted for further evaluation of this. Her urine showed no signs of infection and her urine drug screen was positive for oxycodone only. CT of her head showed no acute findings. Lower lumbar CT showed intact hardware with no acute fractures or worrisome abnormalities. I did obtain an x-ray of her wrist on the left side as well as her right foot as patient seemed very uncomfortable with palpation of this. No acute fractures were seen the we do note modest osteoarthritis. I have spoken with Dr. Marquez our hospitalist who agrees to bring the patient in for further evaluation and management of her acute metabolic encephalopathy related to her elevated CK levels. Departure - Departure Disposition: ED Place in Observation Clinical Impression: Acute metabolic encephalopathy, Elevated CK, Frequent falls Condition: Serious
[2022-05-14 12:01] LABS: BASOPHILS # (AUTO) 0.1 10^3/uL (0.0-0.1); BASOPHILS % (AUTO) 0.8 %; HGB - HEMOGLOBIN 12.1 g/dL (12.0-16.0); LYMPHOCYTES # (AUTO) 1.5 10^3/uL (1.5-3.5); LYMPHOCYTES % (AUTO) 10.6 %; MEAN CORPUSCULAR HEMOGLOBIN 28.1 pg (27.0-31.0); MEAN CORPUSCULAR VOLUME 90.5 fL (81.0-99.0); MEAN PLATELET VOLUME 10.6 fL (7.9-10.8); MONOCYTES % (AUTO) 7.1 %; NEUTROPHILS # (AUTO) 11.8 10^3/uL (1.5-6.6); NEUTROPHILS % (AUTO) 81.1 %; PLT - PLATELET COUNT 377 10^3/uL (130-450); RED BLOOD COUNT 4.31 10^6/uL (4.20-5.40); RED CELL DISTRIBUTION WIDTH 15.9 % (12.0-15.0); WHITE BLOOD COUNT 14.6 x10^3/uL (4.8-10.8)
--- NOTE | 2022-05-14 12:35 | XRAY Report ---
PROCEDURE: Foot 3 View RT INDICATIONS: fall; pain TECHNIQUE: 3 views of the foot were acquired. COMPARISON: None FINDINGS: Bones: No fractures or dislocations. Right foot osteoarthritic changes are seen with joint space moiz rowing and subchondral sclerosis most notably right great first MTP joint. No suspicious bony lesions . Soft tissues: No tibiotalar joint effusion. Achilles tendon appears normal. IMPRESSION: Right foot osteoarthritis most notably in first MTP joint. No gross acute right foot fracture or disl ocation. Reviewed by: Mack aVldovinos MD on 05/14/2022 12:34 PM PST Approved by: Mack Valdovinos MD on 05/14/2022 12:34 PM PST Station ID: [id number]
--- NOTE | 2022-05-14 12:37 | XRAY Report ---
PROCEDURE: Wrist 3 View LT INDICATIONS: paina fter fall TECHNIQUE: 3 views of the wrist were acquired. COMPARISON: None FINDINGS: Bones: No fractures or dislocations. Mild wrist joint osteoarthritic changes are seen. No suspicious bony lesions. Scaphoid view: Scaphoid is grossly intact. Soft tissues: No suspicious soft tissue calcifications. IMPRESSION: Mild left wrist joint osteoarthritis. No gross acute left wrist fracture or dislocation. Reviewed by: Mack Valdovinos MD on 05/14/2022 12:36 PM PST Approved by: Mack Valdovinos MD on 05/14/2022 12:[address] [facility] Station ID: [id number]
--- NOTE | 2022-05-14 12:37 | XRAY Report ---
PROCEDURE: Chest 1 View X-Ray INDICATIONS: fall TECHNIQUE: One view of the chest was acquired. COMPARISON: 04/24/2022, 12/13/2021 and 12/10/2021. FINDINGS: Surgical changes and devices: None. Lungs and pleura: No pleural effusions or pneumothorax. Lungs are clear. Mediastinum: Mediastinal contours appear normal. Heart size is normal. Bones and chest wall: No suspicious bony lesions. Overlying soft tissues appear unremarkable. IMPRESSION: No acute cardiopulmonary pathology. Reviewed by: Mack Valdovinos MD on 05/14/2022 12:36 PM PST Approved by: Mack Valdovinos MD on 05/14/2022 12:36 PM PST Station ID: [id number]
[2022-05-14 12:44] LABS: MUDS CUTOFF CONCENTRATIONS CUTOFF CONC BELOW:
[2022-05-14 12:47] LABS: BILIRUBIN,URINE NEGATIVE (NEGATIVE); CLARITY,URINE HAZY (CLEAR); GLUCOSE, URINE (UA) NEGATIVE (NEGATIVE); KETONES,URINE (UA) TRACE mg/dL (NEGATIVE); LEUKOCYTE ESTERASE, URINE NEGATIVE (NEGATIVE); NITRITE,URINE NEGATIVE (NEGATIVE); OCCULT BLOOD,URINE LARGE (NEGATIVE); PROTEIN,URINE 30 mg/dL (NEGATIVE); UROBILINOGEN,URINE 0.2 (NORMAL) E.U./dL (NORMAL)
[2022-05-14 12:52] LABS: ALBUMIN/GLOBULIN RATIO 0.9 (1.0-2.2); ALKALINE PHOSPHATASE 120 IU/L (42-121); ALT ALANINE AMINOTRANSFERASE 28 IU/L (10-60); AST ASPARTATE AMINOTRANSFERASE 73 IU/L (10-42); BILIRUBIN,TOTAL 0.9 mg/dL (0.2-1.0); BUN - BLOOD UREA NITROGEN 32 mg/dL (6-20); CALCIUM 9.9 mg/dL (8.5-10.3); CARBON DIOXIDE - CO2 23 mmol/L (21-32); CHLORIDE 110 mmol/L (101-111); CREATININE 1.4 mg/dL (0.4-1.0); ETOH - ETHANOL < 5.0 mg/dL; GFR - MDRD 38 (>89); GLUCOSE 111 mg/dL (70-100); LIPASE 31 U/L (22-51); POTASSIUM 3.8 mmol/L (3.5-5.0); SODIUM 145 mmol/L (135-145); TOTAL PROTEIN 8.3 g/dL (6.7-8.2)
[2022-05-14 12:54] LABS: CK- CREATINE KINASE 4015 IU/L (22-269)
[2022-05-14] MEDS ORDERED: SODIUM CHLORIDE 0.9% 1,000 ML IV STA (12:54)
[2022-05-14 12:59] LABS: BACTERIA,URINE Few /HPF (None Seen); SQUAMOUS EPITHELIAL CELL,UR MOD Squamous (<= Few); WBC,URINE 0-3 /HPF (0-5)
[2022-05-14 13:00] LABS: AMPHETAMINE SCREEN,URINE NEGATIVE (NEGATIVE); BARBITURATE SCREEN,UR NEGATIVE (NEGATIVE); BENZODIAZEPINES SCREEN, URINE NEGATIVE (NEGATIVE); COCAINE SCREEN URINE NEGATIVE (NEGATIVE); METHADONE SCREEN, URINE NEGATIVE (NEGATIVE); METHAMPHETAMINES SCREEN, URINE NEGATIVE (NEGATIVE); OPIATE SCREEN, URINE NEGATIVE (NEGATIVE); OXYCODONE SCREEN, URINE POSITIVE (NEGATIVE); PROPOXYPHENE SCREEN, URINE NEGATIVE (NEGATIVE); THC CANNABINOID SCREEN, URINE NEGATIVE (NEGATIVE); TRICYCLIC ANTIDEPRESSANT,URINE NEGATIVE (NEGATIVE)
--- NOTE | 2022-05-14 13:37 | CT Report ---
PROCEDURE: HEAD WO INDICATIONS: ams TECHNIQUE: Noncontrast 4.5 mm thick angled axial sections acquired from the foramen magnum to the vertex. For r adiation dose reduction, the following was used: automated exposure control, adjustment of mA and/or kV according to patient size. COMPARISON: 05/06/2022, 04/17/2022, 12/20/2021, 10/23/2021 FINDINGS: Image quality: Excellent. CSF spaces: Basal cisterns are patent. No extra-axial fluid collections. Ventricles are normal in size and shape. Brain: No midline shift. No intracranial masses or hemorrhage. Zavaleta-white matter interface is norm al. Skull and face: Calvarium and visualized facial bones are intact, without suspicious lesions. Sinuses: Visualized sinuses and mastoids are clear. IMPRESSION: Head CT within normal limits, stable from prior. Reviewed by: Sony Montenegro MD on 05/14/2022 12:36 PM [place] Approved by: Sony Montenegro MD on 05/14/2022 12:36 PM [facility] Station ID: [id number]
--- NOTE | 2022-05-14 13:41 | CT Report ---
PROCEDURE: LUMBAR SPINE WO INDICATIONS: pain after fall TECHNIQUE: Noncontrast 3 mm thick sections acquired from the T12 level to the sacrum. Sagittal and coronal refo rmats were constructed. For radiation dose reduction, the following was used: automated exposure co ntrol, adjustment of mA and/or kV according to patient size. COMPARISON: Correlation is made with the accompanying head CT, 05/14/2022. FINDINGS: Image quality: There is artifact associated with the metallic hardware. Bones: No acute vertebral body compression fractures. No suspicious lytic or blastic bony lesions. Central spinal caliber is of normal overall caliber. No pars defects. Bilateral pedicle screws are seen at L4, L5, and S1. The screws are well placed. Vertical fixation ro ds are seen. Disc spacers are seen at L3-L4 and L4-L5. No findings of hardware failure or hardware lo osening can be seen. There has been removal of portions of the posterior elements. Bone grafting ma terial is seen. Mild levoconvex scoliotic curvature is seen. No significant AP alignment abnormality can be seen. T12-L1: Normal in appearance. L1-L2: Normal in appearance. L2-L3: Normal in appearance. L3-L4: The disc height is relatively well preserved. Moderate disc bulge is seen, which is eccentri c to the right. Moderate facet hypertrophy is seen. There is at least moderate right-sided and mild to moderate left-sided neuroforaminal narrowing. Moderate central canal narrowing is seen. L4-L5: Mild disc bulge is seen. Mild bilateral neural foraminal narrowing is seen. No central ca nal narrowing is seen. L5-S1: Mild disc bulge is seen. There is mild to moderate right-sided and moderate left-sided neuro foraminal narrowing. No significant central canal narrowing is seen. Soft tissues: No retroperitoneal masses or hematomas. Visualized aorta is normal in caliber. Ather osclerotic calcification is seen. IMPRESSION: No velia, acute abnormality can be seen. Intact appearing hardware seen at L4-S1. Multilevel lower lumbar spine degenerative change can be seen. Mild levoconvex scoliotic curvature is seen. Reviewed by: Sony Montenegro MD on 05/14/2022 12:40 PM [place] Approved by: Sony Montenegro MD on 05/14/2022 12:40 PM [facility] Station ID: [id number]
[2022-05-14] MEDS ORDERED: SODIUM CHLORIDE FLUSH 0.9% 10 ML SYRINGE IVP PRN (15:41)
[2022-05-14] MEDS ORDERED: ONDANSETRON 4 MG/2 ML VIAL IVP PRN (15:41)
[2022-05-14] MEDS ORDERED: ONDANSETRON ODT 4 MG TABLET TL PRN (15:41)
[2022-05-14] MEDS: SODIUM CHLORIDE 0.9% 1,000 ML IV SCH ×2 (15:52→21:03)
--- NOTE | 2022-05-14 15:53 | HISTORY & PHYSICAL EXAMINATION ---
Chief Complaint - Chief Complaint Chief Complaint: encephalopathy, rhabdo- elevated CK levels History of Present Illness - Admitted From Admitted From:: ED - History Obtained From Records Reviewed: from this admission History obtained from: patient and electronic medical record Exam Limitations: pt noncooperative - History of Present Illness HPI Comment/Other: 66 yo female sitting in bed eating a sandwich. When asked why she is here she states she slept all night on the kitchen floor after slipping on some milk and cereal, then the ambulance came the next morning and got her and took her to the hospital. She lives alone. She denies feeling ill prior to falling. [facility], she is not oriented to time. She denies having fever, chills. Does have cough, implying this is normal for her. Further questioning was not fruitful as Alondra stopped answering question said, "get out." History - Past Medical History Cardiovascular: reports: Hypertension, Coronary artery disease, [place] Respiratory: reports: None Neuro: reports: Seizure disorder, Multiple sclerosis Endocrine/Autoimmune: reports: Other GI: reports: None WORKFORCE ADVISOR: reports: Other : reports: Chronic bladder infection HEENT: reports: None Psych: reports: Depression, ADD/ADHD Musculoskeletal: reports: Chronic back pain, Other Derm: reports: Other MRSA Hx?: Yes - Past Surgical History Ortho: reports: Spine surgery /WORKFORCE ADVISOR: reports: Hysterectomy Cardiovascular: reports: Coronary stent, Cardiac catheterization - Family & Social History Family History Comment/Other: Review of prior records revealed that her father from bone cancer when she was quite young. Her mother is and had a history of heart disease and lung cancer. She has brother who also from bone cancer and another brother who has atrial fibrillation. Living Situation: Alone Social History Notes: review of prior records revealed that she is a smoker and does not have a history of alcohol abuse. There is a remote history of LSD use back in the 1970s. - Substance History Use: Uses substance without health or social issues: Tobacco - POLST Patient has POLST: No POLST Status: Full Code Meds/Allgy - Home Medications Home Medications: Ambulatory Orders Medication Instructions Recorded Confirmed Atorvastatin [Lipitor] 40 mg PO QPM #0 12/21/20 05/14/22 Losartan Potassium 12.5 mg PO DAILY 04/03/22 05/14/22 Fluticasone [Flonase] 1 sprays WILLIE BID PRN 04/20/22 05/14/22 carvediloL [Coreg] 3.125 mg PO BID 04/20/22 05/14/22 Acetaminophen [Acetaminophen Extra 1,000 mg PO TID PRN 04/24/22 05/14/22 Strength] Diclofenac Sodium Dr [Voltaren] 1 tab PO BID PRN 04/24/22 05/14/22 Spironolactone [Aldactone] 12.5 mg PO DAILY 05/09/22 05/14/22 - Allergies Allergies/Adverse Reactions: Allergies Allergy/AdvReac Type Severity Reaction Status Date / Time No Known Drug Allergies Allergy Verified 05/14/22 11:44 Review of Systems - Respiratory Respiratory: reports: Cough - Musculoskeletal Musculoskeletal: reports: Back pain (s/p spine surgery) - Other Findings Other Findings: Unable to complete the review of systems with patient as pt stopped answering questions. Prior Level of Functionality: Uncertain of prior level of function. Per pt's story she appears to live alone, uncertain of independence level with ADLs. Exam - Vital Signs Reviewed Vital Signs: Yes Vital Signs: Vital Signs x48h Temp Pulse Resp BP Pulse Ox 05/14/22 14:00 79 23 139/79 H 95 05/14/22 12:41 80 22 125/64 95 05/14/22 11:44 36.4 C L 66 20 132/99 H 92 - Physical Exam General Appearance: positive: No acute distress, Other ([place] female sitting in bed, mildly tremulous, pale skinned, speaks in a loud voice, no obvious focal defecit, using both upper extremities to feed herself without obvious weakness.) Eyes Bilateral: positive: Normal inspection ENT: positive: Other (on holding up two fingers pt correctly identifies two fingers being held up.) Respiratory: positive: Other (speaking in full sentenes no and eating without difficulty, no obvious increased work of breathing.) Cardiovascular: positive: Other (pale skin, vitals stable) Abdomen: positive: Other (unable to assess) Skin: positive: Cyanosis (dark color around lips), Other (appears very pale) Extremities: positive: Other (describes ankle pain, bilateral ankles flexing and extending under sheets no obvious range of motion defecit.) Neurologic/Psychiatric: positive: Disoriented to place, Disoriented to time, Other (talks in full sentences, looks at me when talking, tracks as I approach, confused as to recent events that brought her to hospital story changed several times during interview, no visual weakness in upper extremities appears to use both extremities equally, no negelect.) Comments/Other: All components of physical exam completed while sitting across from pt. Pt refused physical exam, I think she was very hungry. Conclusion/Plan - Problem List (1) Altered mental status Conclusion/Plan: Pt awake, confused as to recent events. Full sentences, clear speech, no focul defectis. -metabolic encephalopathy: total CK 4015, AST 73, ALT 28, blood glucose 111, -cardiovascular: vistal signs stable, BNP 468 no prior lab to compare -infectious: vital signs stable, no temperature, UA negative, moderately elevated WBCs, Lactic 1.6 -trauma: CT negative for bleed, fx, -drugs/ overdose: tox screen positive for oxycodone, alcohol negative on tox screen -Neurologic: CT found no masses, no hydrocephalus, possible post ictal state, history of seizure or seizure disorder found on chart review. -allergic reaction: No known drug allergies Plan: Labs- TSH, ESR, CRP, MAC, IV hydration. Had considered nalaxone but pt is awake. Interview, exam, and recent imaging do not support acute neurologic injury such as stroke. Stable vitals, lactic 1.6, no fever, infection still possible but less likely at this point. Qualifiers: Altered mental status type: disorientation Qualified Code(s): R41.0 - Disorientation, unspecified (2) Rhabdomyolysis Conclusion/Plan: total CK 4015. Pt story of being prone on floor overnight. Plan: IV hydration. Qualifiers: Rhabdomyolysis type: non-traumatic Qualified Code(s): M62.82 - Rhabdomyolysis (3) Frequent falls Conclusion/Plan: Per pt's story she slipped and fell on some milk. Has a history of falls, reports back pain, ankle pain. History of back and ankle surgery. Xrays obtained in ED are negative for fractures. Plan: PT/OT to evaluate (4) Leukocytosis Conclusion/Plan: WBC 14.6. Intermittent leukocytosis, no signs of infection. Plan: Will reassess with am labs. - Lab Results Fish Bones: 05/14/22 11:58 05/14/22 11:58 - Diagnostic Imaging Results Diagnostic Imaging Results: positive: Final report reviewed Diagnostic Imaging Results Comments: Head CT 05/14/22 Findings & Impression -Image quality: excellent -CSF spaces: Basal cisterns are patent. No extar-axial fluid collections. Ventricles are normal in size and shape. -Brain: No midline shift. No intracranial masses or hemorrhage. Zavaleta-white matter interface is normal. -Skull and face: Calvarium and visualized facial bones are intact, without suspicious lesions. -Sinuses: Visualized sinuses and mastoids are clear -Impression: Head CT within normal limits, stable from prior. CT spine Impression: -No velia, acute abnormality can be seen. -intact appearing hardware seen at L4-S1 -multilevel lower lumbar spine degenerative change can be seen. -mild levoconvex scoliotic curvature is seen. Xray wrist Impression 05/14/22 -Mild left wrist joint osteoarthritis. No gross acute left wrist fracture or dislocation. Xray R foot Impression 05/14/22 -Right foot osteoarthritis most notable in first MTP joint. No gross acute right foot fracture or dislocation. Core Measures - Anticipated LOS I expect patient to be DC'd or transferred within 96 hours.: Yes
[2022-05-14] MEDS: oxyCODONE 5 MG TABLET PO PRN ×2 (16:45→21:02)
[2022-05-14] MEDS: ACETAMINOPHEN 325 MG TABLET PO PRN ×2 (16:45→21:02)
[2022-05-14] MEDS: SODIUM CHLORIDE FLUSH 0.9% 10 ML SYRINGE IVP SCH (16:46)
--- NOTE | 2022-05-14 18:16 | PHARMACY PROGRESS NOTE ---
- Best Possible Medication History Admit Date and Time: 05/14/22 1542 Processed by: Pharmacy Medication History completed: Yes Patient Interview: Pt unable to participate Secondary Source(s): Pharmacy records, Previous admit records Patient with altered mental status. She was just here last week for an admission so medication list confirmed based on that admission and pharmacy fill history. As the person ultimately responsible for medication therapy, providers are able to order a medication from an existing home medication list in [facility] via the "Reconcile Routine" prior to Confirmation of that medication by manager sales support. Such practice is discouraged except when the physician, in their clinical judgment, deems that a medical need exists for a medication without regard to previous use.
[2022-05-15] MEDS: ACETAMINOPHEN 325 MG TABLET PO PRN ×5 (01:06→18:47)
[2022-05-15] MEDS: SODIUM CHLORIDE FLUSH 0.9% 10 ML SYRINGE IVP SCH ×4 (01:06→23:49)
[2022-05-15] MEDS: oxyCODONE 5 MG TABLET PO PRN ×5 (01:07→18:47)
[2022-05-15] MEDS: SODIUM CHLORIDE 0.9% 1,000 ML IV SCH ×2 (01:52→07:00)
[2022-05-15 04:57] LABS: BASOPHILS # (AUTO) 0.1 10^3/uL (0.0-0.1); EOSINOPHILS % (AUTO) 0.2 %; HCT - HEMATOCRIT 35.4 % (37.0-47.0); HGB - HEMOGLOBIN 10.6 g/dL (12.0-16.0); LYMPHOCYTES # (AUTO) 3.1 10^3/uL (1.5-3.5); LYMPHOCYTES % (AUTO) 31.6 %; MEAN CORPUSCULAR HEMOGLOBIN 27.7 pg (27.0-31.0); MEAN CORPUSCULAR HGB CONC 29.9 g/dL (32.0-36.0); MEAN CORPUSCULAR VOLUME 92.7 fL (81.0-99.0); MONOCYTES # (AUTO) 1.1 10^3/uL (0.0-1.0); MONOCYTES % (AUTO) 10.9 %; NEUTROPHILS # (AUTO) 5.5 10^3/uL (1.5-6.6); PLT - PLATELET COUNT 316 10^3/uL (130-450); RED BLOOD COUNT 3.82 10^6/uL (4.20-5.40); RED CELL DISTRIBUTION WIDTH 16.3 % (12.0-15.0); WHITE BLOOD COUNT 9.9 x10^3/uL (4.8-10.8)
[2022-05-15 05:31] LABS: CALCIUM 8.3 mg/dL (8.5-10.3); CRP - C-REACTIVE PROTEIN 11.3 mg/dL (0-1.0); POTASSIUM 3.2 mmol/L (3.5-5.0)
[2022-05-15] MEDS ORDERED: D5.45NS W/20 MEQ KCL 1,000 ML IV SCH (09:00)
[2022-05-15] MEDS: LOSARTAN 50 MG TABLET PO SCH (09:46)
[2022-05-15] MEDS: DICLOFENAC SODIUM DR 75 MG TABLET PO PRN (09:46)
[2022-05-15] MEDS: carvediloL 3.125 MG TABLET PO SCH ×2 (09:47→20:12)
[2022-05-15] MEDS: ENOXAPARIN 40 MG/0.4 ML SYRINGE SUBQ SCH (09:47)
--- NOTE | 2022-05-15 15:43 | PROVIDER PROGRESS NOTE ---
Assessment/Plan - Problem List (1) Rhabdomyolysis Qualifiers: Rhabdomyolysis type: non-traumatic Qualified Code(s): M62.82 - Rhabdomyolysis Assessment/Plan: total CK 4015>> 5800 today. Pt gave history of being prone on floor in her house overnight. Plan: IV hydration. Avoid nephrotoxins Follow CK until it is approaching a normal range Qualifiers: Rhabdomyolysis type: non-traumatic Qualified Code(s): M62.82 - Rhabdomyolysis (2) Frequent falls Conclusion/Plan: Per pt's story she slipped and fell on some milk. Has a history of falls, repor ts back pain, ankle pain. History of back and ankle surgery. Xrays obtained in ED are negative for fractures. Plan: PT/OT to evaluate OPain meds prn (3) Cognitive impairment At the last recent hospitalization 1 week ago, she had a SLUMS test done by OT and she scored 11/30, indicating severely cognitively impaired. She has had multiple admissions over the past year and advised to not go home to live alone, that she needs to be in as USP. Nevertheless, she was allowed to return to her home at the last admission 1 week ago, because she wanted that. Then after a few days she has returned with AMS, which is how she repeatedly presents to our ER. Plan: Today she has agreed for placement and wants to go to [facility] Work is working on this for after discharge (4) Hyponatremia Conclusion/Plan: Na was 145 yesterday, is up to 146 today, after receiving NS at 200 cc/hour for her rhabdomyolysis Plan: Will change iv fluids to D5 1/2 NS and decrease the rate, given her Hx of HFrEF Follow BMP daily (5) Hypokalemia This is likely related to inadequate intake or side effect of her meds Plan: Will give p.o. and/or IV K riders Follow BMP daily (6) Rash on torso This has been present for the last several admissions. We thought it was either psoriasis or a fungal rash. Today her RN reports to me that she says it is painful. Plan: Will order topical treatment and pain medications (7) Altered mental status Conclusion/Plan: Resolved Plan: continue iv hydration Qualifiers: Altered mental status type: disorientation Qualified Code(s): R41.0 - Disorientation, unspecified (8) CAD with Hx of SD Plan: We will restart her B-briseida and baby aspirin daily. Will not restart her statin yet due to rhabdo (9) Chronic HFrEF Her EF was 35-40% (by Echo done here in 12/2021) Plan: We will not restart her spironolactone yet due to needing IV fluids. Watch for development of volume overload Will restart her beta-briseida and ARB (10) Hx of HTN Plan: We will resume her meds when appropriate (11) Hypothyroidism She used to be on Synthroid several admissions ago, it is not listed on her reconciled med list. Plan: We will restart it if she is really on thyroid replacement will check her TSH (12) Hx of seizures She used to be on Keppra several admissions ago, it is not listed on her reconciled med list Plan: We will restart it if she is really on Keppra (13) Hyperlipidemia Plan: We will restart her statin once her rhabdo has improved - Current Meds Current Meds: Current Medications Generic Name Dose Route Start Last Admin Trade Name Freq PRN Reason Stop Dose Admin Acetaminophen 650 mg 05/14/22 15:41 05/15/22 13:57 Acetaminophen 325 Mg Tablet PO 650 mg Q4HR PRN Administration Pain 1 to 4, or Fever Carvedilol 3.125 mg 05/15/22 09:00 05/15/22 09:47 Carvedilol 3.125 Mg Tablet PO 3.125 mg BID JIN Administration Diclofenac Sodium 75 mg 05/15/22 08:38 05/15/22 09:[address] 75 Mg Tablet PO 75 mg BID PRN Administration PAIN Enoxaparin Sodium 40 mg 05/15/22 09:00 05/15/22 09:47 Enoxaparin 40 Mg/0.4 Ml Syringe SUBQ 40 mg DAILY JIN Administration Potassium Chloride/Dextrose/Sod Cl 1,000 mls @ 83.333 mls/hr 05/15/22 09:00 05/15/22 11:14 D5.45ns W/20 Meq Kcl IV 05/15/22 20:59 83.333 mls/hr .Q12H JIN Administration Losartan Potassium 12.5 mg 05/15/22 09:00 05/15/22 09:46 Losartan 50 Mg Tablet PO 12.5 mg DAILY JIN Administration Oxycodone HCl 5 mg 05/14/22 15:41 05/15/22 13:56 Oxycodone 5 Mg Tablet PO 5 mg Q4HR PRN Administration Pain 5 to 7 Sodium Chloride 10 ml 05/14/22 17:00 05/15/22 10:51 Sodium Chloride Flush 0.9% 10 Ml Syringe IVP Not Given 0100,0900,1700 JIN - Lab Result Fish Bone Diagrams: 05/15/22 04:15 05/15/22 04:15 - Additional Planning My Orders: My Active Orders 05/15/22 08:[address] [Voltaren] 75 mg PO BID PRN Fluticasone [Flonase] 1 sprays WILLIE BID PRN 05/15/22 09:00 D5.45ns W/20 Meq KCl 1,000 ml IV 83.333 mls/hr Losartan [Cozaar] 12.5 mg PO DAILY carvediloL [Coreg] 3.125 mg PO BID 05/15/22 21:00 Atorvastatin [Lipitor] 40 mg PO QPM Subjective - Subjective Patient Reports: Feeling Better, Pain (She describes pain in various locations after various surgeries and now also has pain at the site of her skin rash on her back) Objective Vital Signs: Vital Signs - 24 hr 05/14/22 05/14/22 05/14/22 15:54 16:30 20:23 Temperature 36.3 C L 36.3 C L Heart Rate 85 Heart Rate [ 71 85 Brachial] Respiratory 16 24 24 Rate Blood Pressure 138/74 H Blood Pressure 145/82 H 132/71 H [Right Brachial artery] O2 Saturation 98 95 100 05/15/22 05/15/22 05/15/22 00:27 04:06 08:30 Temperature 36.4 C L 36.6 C 36.5 C Heart Rate Heart Rate [ 71 70 71 Brachial] Respiratory 16 18 24 Rate Blood Pressure Blood Pressure 116/59 L 125/67 112/59 L [Right Brachial artery] O2 Saturation 100 97 97 05/15/22 12:34 Temperature 36.7 C Heart Rate Heart Rate [ 69 Brachial] Respiratory 22 Rate Blood Pressure Blood Pressure 100/54 L [Right Brachial artery] O2 Saturation 95 Oxygen O2 Source [With Activity] Room air O2 Source [Without Activity] Room air O2 Source Room air I&O (Last 24 Hrs): Intake and Output Totals x24h 01/12/2605/14/22 05/15/22 23:59 23:59 23:59 Intake Total 7941 4673.333 Output Total 400 Balance 2711 0163.333 General: Alert, Oriented x3 HEENT: Mucous membr. moist/pink, Other (edentulous) Neck: Supple Neuro: Alert, Non Focal Cardiovascular: Regular rate, No murmurs Respiratory: No respiratory distress, Breath sounds nml Abdomen: Soft, Other (Obese with pannus) Extremities: No clubbing, No edema, Other (Multiple small ecchymoses of both shins, raised papular rash of posterior thighs and buttocks) - Results Results: Laboratory Results WBC 9.9 x10^3/uL (4.8-10.8) 05/15/22 04:15 RBC 3.82 10^6/uL (4.20-5.40) L 05/15/22 04:15 Hgb 10.6 g/dL (12.0-16.0) L 05/15/22 04:15 Hct 35.4 % (37.0-47.0) L 05/15/22 04:15 MCV 92.7 fL (81.0-99.0) 05/15/22 04:15 MCH 27.7 pg (27.0-31.0) 05/15/22 04:15 MCHC 29.9 g/dL (32.0-36.0) L 05/15/22 04:15 RDW 16.3 % (12.0-15.0) H 05/15/22 04:15 Plt Count 316 10^3/uL (130-450) 05/15/22 04:15 MPV 11.0 fL (7.9-10.8) H 05/15/22 04:15 Neut # (Auto) 5.5 10^3/uL (1.5-6.6) 05/15/22 04:15 Lymph # (Auto) 3.1 10^3/uL (1.5-3.5) 05/15/22 04:15 [place] # (Auto) 1.1 10^3/uL (0.0-1.0) H 05/15/22 04:15 Eos # (Auto) 0.0 10^3/uL (0.0-0.7) 05/15/22 04:15 Baso # (Auto) 0.1 10^3/uL (0.0-0.1) 05/15/22 04:15 Absolute Nucleated RBC 0.00 x10^3/uL 05/15/22 04:15 Nucleated RBC % 0.0 /100WBC 05/15/22 04:15 Sodium 146 mmol/L (135-145) H 05/15/22 04:15 Potassium 3.2 mmol/L (3.5-5.0) L 05/15/22 04:15 Chloride 116 mmol/L (101-111) H 05/15/22 04:15 Carbon Dioxide 20 mmol/L (21-32) L 05/15/22 04:15 Anion Gap 10.0 (6-13) 05/15/22 04:15 BUN 21 mg/dL (6-20) H 05/15/22 04:15 Creatinine 1.0 mg/dL (0.4-1.0) 05/15/22 04:15 Estimated GFR (MDRD) 55 (>89) L 05/15/22 04:15 Glucose 88 mg/dL (70-100) 05/15/22 04:15 Lactic Acid 1.6 mmol/L (0.5-2.2) 05/14/22 11:58 Calcium 8.3 mg/dL (8.5-10.3) L 05/15/22 04:15 Total Bilirubin 0.9 mg/dL (0.2-1.0) 05/14/22 11:58 AST 73 IU/L (10-42) H 05/14/22 11:58 ALT 28 IU/L (10-60) 05/14/22 11:58 Alkaline Phosphatase 120 IU/L (42-121) 05/14/22 11:58 Ammonia 12.4 umol/L (7-35) 05/14/22 11:58 Total Creatine Kinase 5839 IU/L (22-269) H* 05/15/22 04:15 C-Reactive Protein 11.3 mg/dL (0-1.0) H 05/15/22 04:15 B-Natriuretic Peptide 468 pg/mL (5-100) H 05/14/22 11:58 Total Protein 8.3 g/dL (6.7-8.2) H 05/14/22 11:58 Albumin 4.0 g/dL (3.2-5.5) 05/14/22 11:58 Globulin 4.3 g/dL (2.1-4.2) H 05/14/22 11:58 Albumin/Globulin Ratio 0.9 (1.0-2.2) L 05/14/22 11:58 Lipase 31 U/L (22-51) 05/14/22 11:58 Urine Color YELLOW 05/14/22 12:40 Urine Clarity HAZY (CLEAR) 05/14/22 12:40 Urine pH 6.0 PH (5.0-7.5) 05/14/22 12:40 Ur Specific [place] 1.025 (1.002-1.030) 05/14/22 12:40 Urine Protein 30 mg/dL (NEGATIVE) H 05/14/22 12:40 Urine Glucose (UA) NEGATIVE mg/dL (NEGATIVE) 05/14/22 12:40 Urine Ketones TRACE mg/dL (NEGATIVE) 05/14/22 12:40 Urine Occult Blood LARGE (NEGATIVE) H 05/14/22 12:40 Urine Nitrite NEGATIVE (NEGATIVE) 05/14/22 12:40 Urine Bilirubin NEGATIVE (NEGATIVE) 05/14/22 12:40 Urine Urobilinogen 0.2 (NORMAL) E.U./dL (NORMAL) 05/14/22 12:40 Ur Leukocyte Esterase NEGATIVE (NEGATIVE) 05/14/22 12:40 Urine RBC 6-10 /HPF (0-5) H 05/14/22 12:40 Urine WBC 0-3 /HPF (0-5) 05/14/22 12:40 Ur Squamous Epith Cells MOD Squamous (<= Few) H 05/14/22 12:40 Urine Bacteria Few /HPF (None Seen) 05/14/22 12:40 Urine Casts 0-2 Fine Granular /LPF0-2 Hyaline Casts /LPF 05/14/22 12:40 Urine Casts 0-2 Fine Granular /LPF0-2 Hyaline Casts /LPF 05/14/22 12:40 Ur Microscopic Review INDICATED 05/14/22 12:40 Urine Culture Comments NOT INDICATED 05/14/22 12:40 Urine Opiates Screen NEGATIVE (NEGATIVE) 05/14/22 12:40 Ur Oxycodone Screen POSITIVE (NEGATIVE) H 05/14/22 12:40 Urine Methadone Screen NEGATIVE (NEGATIVE) 05/14/22 12:40 Ur Propoxyphene Screen NEGATIVE (NEGATIVE) 05/14/22 12:40 Ur Barbiturates Screen NEGATIVE (NEGATIVE) 05/14/22 12:40 Ur Tricyclics Screen NEGATIVE (NEGATIVE) 05/14/22 12:40 Ur Phencyclidine Scrn NEGATIVE (NEGATIVE) 05/14/22 12:40 Ur Amphetamine Screen NEGATIVE (NEGATIVE) 05/14/22 12:40 U Methamphetamines Scrn NEGATIVE (NEGATIVE) 05/14/22 12:40 U Benzodiazepines Scrn NEGATIVE (NEGATIVE) 05/14/22 12:40 Urine Cocaine Screen NEGATIVE (NEGATIVE) 05/14/22 12:40 U Cannabinoids Screen NEGATIVE (NEGATIVE) 05/14/22 12:40 Ethyl Alcohol < 5.0 mg/dL 05/14/22 11:58 SARS-CoV-2 (PCR) NOT DETECTED 05/14/22 13:40 - Procedures Procedures: Procedures INSERTION OF INFUSION DEV INTO SUP VENA CAVA, PERC APPROACH (12/10/21)
[2022-05-15] MEDS: BACLOFEN 10 MG TABLET PO SCH (20:12)
[2022-05-15] MEDS: levETIRAcetam 250 MG TABLET PO SCH (20:12)
[2022-05-15] MEDS: NYSTATIN POWDER 15 GM TOP SCH (20:15)
[2022-05-15] MEDS ORDERED: ATORVASTATIN 40 MG TABLET PO SCH (21:00)
[2022-05-16] MEDS: ACETAMINOPHEN 325 MG TABLET PO PRN ×6 (00:58→22:43)
[2022-05-16] MEDS: oxyCODONE 5 MG TABLET PO PRN ×6 (00:58→22:44)
[2022-05-16] MEDS: DICLOFENAC SODIUM DR 75 MG TABLET PO PRN ×2 (03:39→23:56)
[2022-05-16 05:47] LABS: CALCIUM 8.5 mg/dL (8.5-10.3); POTASSIUM 3.6 mmol/L (3.5-5.0)
[2022-05-16] MEDS: LEVOTHYROXINE 25 MCG TABLET PO SCH (06:39)
[2022-05-16] MEDS: BACLOFEN 10 MG TABLET PO SCH ×2 (08:59→20:35)
[2022-05-16] MEDS: levETIRAcetam 250 MG TABLET PO SCH ×2 (08:59→20:35)
[2022-05-16] MEDS: ASPIRIN EC 81 MG TABLET PO SCH (08:59)
[2022-05-16] MEDS: carvediloL 3.125 MG TABLET PO SCH ×2 (08:59→20:35)
[2022-05-16] MEDS: SODIUM CHLORIDE FLUSH 0.9% 10 ML SYRINGE IVP SCH ×2 (09:00→16:54)
[2022-05-16] MEDS: ENOXAPARIN 40 MG/0.4 ML SYRINGE SUBQ SCH (09:00)
[2022-05-16] MEDS: LOSARTAN 50 MG TABLET PO SCH (09:02)
[2022-05-16] MEDS: NYSTATIN POWDER 15 GM TOP SCH ×2 (09:04→20:36)
[2022-05-16] MEDS ORDERED: oxyCODONE 5 MG TABLET ONE (09:37)
--- NOTE | 2022-05-16 16:30 | PROVIDER PROGRESS NOTE ---
Assessment/Plan - Problem List (1) Rhabdomyolysis Qualifiers: Rhabdomyolysis type: non-traumatic Qualified Code(s): M62.82 - Rhabdomyolysis Assessment/Plan: Her Total CK 4015>> 5800>> 3000 today. Pt gave history of being prone on floor in her house overnight. Plan: continue IV hydration. Avoid nephrotoxins Follow CK until it is approaching a normal range Qualifiers: Rhabdomyolysis type: non-traumatic Qualified Code(s): M62.82 - Rhabdomyolysis (2) Frequent falls Conclusion/Plan: Per pt's story she slipped and fell on some milk. Has a history of falls, reports back pain, ankle pain. History of back and ankle surgery. Xrays obtained in ED are negative for fractures. Plan: PT/OT to evaluate Pain meds prn (3) Cognitive impairment At the last recent hospitalization 1 week ago, she had a SLUMS test done by OT and she scored 11/30, indicating severely cognitively impaired. She has had multiple admissions over the past year and advised to not go home to live alone, that she needs to be in as CUSTODIAL. Nevertheless, she was allowed to return to her home at the last admission 1 week ago, because she wanted that. Then after a few days she has returned with AMS, which is how she repeatedly presents to our ER. Plan: Yesterday she agreed to senior care placement and wants to go to [facility] Social Work is working on this for after discharge (4) Hypernatremia Conclusion/Plan: Na was 145>> 146 yesterday, after receiving NS at 200 cc/hour for her rhabdomyolysis. Today NS is 140 after fluids changed to Hypotonic D5 1/2 NS and we decreased the rate, given her Hx of HFrEF Plan: Follow BMP daily (5) Rash on torso This has been present for the last several admissions. We thought it was either psoriasis or a fungal rash. Today her RN reports to me that she says it is painful. Plan: Will order topical treatment and pain medications (6) CAD with Hx of [place] Plan: We have restarted her B-briseida and baby aspirin daily. Will not restart her statin yet due to rhabdo (7) Chronic HFrEF Her EF was 35-40% (by Echo done here in 12/2021) Will have restarted her beta-briseida and ARB Plan: We will not restart her spironolactone yet due to needing IV fluids. Watch for development of volume overload (8) Hx of HTN Plan: We are resuming her various meds when appropriate (9) Hypothyroidism She used to be on Synthroid several admissions ago, but it was not listed on her reconciled med list this time. We checked her TSH and it came back elevated, consistent with her not being on Synthroid (probably since it was not copied from med list to med list during her frequent ER visits and hospitalizations). Plan: We have restarted Synthroid (10) Hx of seizures She used to be on Keppra several admissions ago, it was not listed on her reconciled med list. She has presented repeatedly delirious and obtunded/somnolent. Etiology was felt to be from UTIs, or dehydration, but may also have been post-ictal, if she had untreated seizures Plan: We have restarted her Keppra (11) Hyperlipidemia Plan: We will restart her statin once her rhabdo has improved (12) Altered mental status Conclusion/Plan: Resolved She was delirious and obtunded/somnolent. Etiology was felt to be from UTIs, or dehydration, but may also have been post-ictal if she had untreated seizures Plan: continue iv hydration for 1-2 more days Qualifiers: Altered mental status type: disorientation Qualified Code(s): R41.0 - Disorientation, unspecified (13) Hypokalemia Resolved with replacement This is likely related to inadequate intake or side effect of her meds Plan: Follow BMP daily - Current Meds Current Meds: Current Medications Generic Name Dose Route Start Last Admin Trade Name Eliza PRN Reason Stop Dose Admin Acetaminophen 650 mg 05/14/22 15:41 05/16/22 12:59 Acetaminophen 325 Mg Tablet PO 650 mg Q4HR PRN Administration Pain 1 to 4, or Fever Aspirin 81 mg 05/16/22 09:00 05/16/22 08:59 Aspirin Ec 81 Mg Tablet PO 81 mg DAILY JIN Administration Baclofen 30 mg 05/15/22 21:00 05/16/22 08:59 Baclofen 10 Mg Tablet PO 30 mg BID JIN Administration Carvedilol 3.125 mg 05/15/22 09:00 05/16/22 08:59 Carvedilol 3.125 Mg Tablet PO 3.125 mg BID JIN Administration Diclofenac Sodium 75 mg 05/15/22 08:38 05/16/22 03:[address] 75 Mg Tablet PO 75 mg BID PRN Administration PAIN Enoxaparin Sodium 40 mg 05/15/22 09:00 05/16/22 09:00 Enoxaparin 40 Mg/0.4 Ml Syringe SUBQ Not Given DAILY JIN Levetiracetam 500 mg 05/15/22 21:00 05/16/22 08:59 Levetiracetam 250 Mg Tablet PO 500 mg BID JIN Administration Levothyroxine Sodium 50 mcg 05/16/22 07:00 05/16/22 06:39 Levothyroxine 25 Mcg Tablet PO 50 mcg QDAC JIN Administration Losartan Potassium 12.5 mg 05/15/22 09:00 05/16/22 09:02 Losartan 50 Mg Tablet PO 12.5 mg DAILY JIN Administration Nystatin 1 applic 05/15/22 21:00 05/16/22 09:04 Nystatin Powder 15 Gm TOP 1 applic BID JIN Administration Oxycodone HCl 5 mg 05/14/22 15:41 05/16/22 12:59 Oxycodone 5 Mg Tablet PO 5 mg Q4HR PRN Administration Pain 5 to 7 Sodium Chloride 10 ml 05/14/22 17:00 05/16/22 09:00 Sodium Chloride Flush 0.9% 10 Ml Syringe IVP 10 ml 0100,0900,1700 JIN Administration - Lab Result Fish Bone Diagrams: 05/15/22 04:15 05/16/22 05:03 - Additional Planning My Orders: My Active Orders 05/15/22 21:00 Baclofen [Lioresal] 30 mg PO BID Nystatin [Nystop] 1 applic TOP BID levETIRAcetam [Keppra] 500 mg PO BID 05/16/22 Evaluate and Treat OT [OT] Routine Evaluate and Treat PT [PT] Routine 05/16/22 07:00 Levothyroxine [Synthroid] 50 mcg PO QDAC 05/16/22 09:00 Aspirin EC [Ecotrin] 81 mg PO DAILY Subjective - Subjective Patient Reports: Resting Comfortably, Pain (in multiple joints and over her rash on low back, posterior thighs and buttocks) Objective Vital Signs: Vital Signs - 24 hr 05/15/22 05/16/22 05/16/22 21:00 00:57 06:42 Temperature 36.9 C 36.2 C L 36.3 C L Heart Rate [ 74 68 63 Brachial] Heart Rate [ Supine] Respiratory 18 20 18 Rate Blood Pressure 134/69 H 118/62 102/62 [Right Brachial artery] Blood Pressure [Supine] O2 Saturation 95 95 96 05/16/22 05/16/22 05/16/22 07:52 12:27 13:45 Temperature 36.3 C L 36.2 C L Heart Rate [ 67 69 Brachial] Heart Rate [ 62 Supine] Respiratory 16 16 Rate Blood Pressure 106/65 93/50 L [Right Brachial artery] Blood Pressure 103/58 L [Supine] O2 Saturation 95 95 05/16/22 16:04 Temperature 36.3 C L Heart Rate [ 63 Brachial] Heart Rate [ Supine] Respiratory 16 Rate Blood Pressure 107/66 [Right Brachial artery] Blood Pressure [Supine] O2 Saturation 99 Oxygen O2 Source [With Activity] Room air O2 Source [Without Activity] Room air O2 Source Room air I&O (Last 24 Hrs): Intake and Output Totals x24h 05/14/22 05/15/22 05/16/22 23:59 23:59 23:59 Intake Total 2711 4763.333 740 Output Total 950 100 Balance 2711 3813.333 640 General: Alert, No acute distress HEENT: Mucous membr. moist/pink, Other (edentulous) Neck: Supple, No JVD Neuro: Alert, Non Focal, Other (Poor memory) Cardiovascular: Regular rate, No murmurs Respiratory: No respiratory distress, Breath sounds nml Abdomen: Normal bowel sounds, Soft, Other (obese with pannus) Extremities: No clubbing, No edema, Other (Red papular rash over posterior upper thighs, buttocks and low back, bilaterally. Multiple small ecchymoses of legs.) - Results Results: Laboratory Results WBC 9.9 x10^3/uL (4.8-10.8) 05/15/22 04:15 RBC 3.82 10^6/uL (4.20-5.40) L 05/15/22 04:15 Hgb 10.6 g/dL (12.0-16.0) L 05/15/22 04:15 Hct 35.4 % (37.0-47.0) L 05/15/22 04:15 MCV 92.7 fL (81.0-99.0) 05/15/22 04:15 MCH 27.7 pg (27.0-31.0) 05/15/22 04:15 MCHC 29.9 g/dL (32.0-36.0) L 05/15/22 04:15 RDW 16.3 % (12.0-15.0) H 05/15/22 04:15 Plt Count 316 10^3/uL (130-450) 05/15/22 04:15 MPV 11.0 fL (7.9-10.8) H 05/15/22 04:15 Neut # (Auto) 5.5 10^3/uL (1.5-6.6) 05/15/22 04:15 Lymph # (Auto) 3.1 10^3/uL (1.5-3.5) 05/15/22 04:15 Smith # (Auto) 1.1 10^3/uL (0.0-1.0) H 05/15/22 04:15 Eos # (Auto) 0.0 10^3/uL (0.0-0.7) 05/15/22 04:15 Baso # (Auto) 0.1 10^3/uL (0.0-0.1) 05/15/22 04:15 Absolute Nucleated RBC 0.00 x10^3/uL 05/15/22 04:15 Nucleated RBC % 0.0 /100WBC 05/15/22 04:15 Sodium 140 mmol/L (135-145) 05/16/22 05:03 Potassium 3.6 mmol/L (3.5-5.0) 05/16/22 05:03 Chloride 115 mmol/L (101-111) H 05/16/22 05:03 Carbon Dioxide 20 mmol/L (21-32) L 05/16/22 05:03 Anion Gap 5.0 (6-13) L 05/16/22 05:03 BUN 13 mg/dL (6-20) 05/16/22 05:03 Creatinine 1.0 mg/dL (0.4-1.0) 05/16/22 05:03 Estimated GFR (MDRD) 55 (>89) L 05/16/22 05:03 Glucose 84 mg/dL (70-100) 05/16/22 05:03 Lactic Acid 1.6 mmol/L (0.5-2.2) 05/14/22 11:58 Calcium 8.5 mg/dL (8.5-10.3) 05/16/22 05:03 Total Bilirubin 0.9 mg/dL (0.2-1.0) 05/14/22 11:58 AST 73 IU/L (10-42) H 05/14/22 11:58 ALT 28 IU/L (10-60) 05/14/22 11:58 Alkaline Phosphatase 120 IU/L (42-121) 05/14/22 11:58 Ammonia 12.4 umol/L (7-35) 05/14/22 11:58 Total Creatine Kinase 3005 IU/L (22-269) H* 05/16/22 05:03 C-Reactive Protein 11.3 mg/dL (0-1.0) H 05/15/22 04:15 B-Natriuretic Peptide 468 pg/mL (5-100) H 05/14/22 11:58 Total Protein 8.3 g/dL (6.7-8.2) H 05/14/22 11:58 Albumin 4.0 g/dL (3.2-5.5) 05/14/22 11:58 Globulin 4.3 g/dL (2.1-4.2) H 05/14/22 11:58 Albumin/Globulin Ratio 0.9 (1.0-2.2) L 05/14/22 11:58 Lipase 31 U/L (22-51) 05/14/22 11:58 TSH 7.51 uIU/mL (0.34-5.60) H 05/16/22 05:03 Urine Color YELLOW 05/14/22 12:40 Urine Clarity HAZY (CLEAR) 05/14/22 12:40 Urine pH 6.0 PH (5.0-7.5) 05/14/22 12:40 Ur Specific [place] 1.025 (1.002-1.030) 05/14/22 12:40 Urine Protein 30 mg/dL (NEGATIVE) H 05/14/22 12:40 Urine Glucose (UA) NEGATIVE mg/dL (NEGATIVE) 05/14/22 12:40 Urine Ketones TRACE mg/dL (NEGATIVE) 05/14/22 12:40 Urine Occult Blood LARGE (NEGATIVE) H 05/14/22 12:40 Urine Nitrite NEGATIVE (NEGATIVE) 05/14/22 12:40 Urine Bilirubin NEGATIVE (NEGATIVE) 05/14/22 12:40 Urine Urobilinogen 0.2 (NORMAL) E.U./dL (NORMAL) 05/14/22 12:40 Ur Leukocyte Esterase NEGATIVE (NEGATIVE) 05/14/22 12:40 Urine RBC 6-10 /HPF (0-5) H 05/14/22 12:40 Urine WBC 0-3 /HPF (0-5) 05/14/22 12:40 Ur Squamous Epith Cells MOD Squamous (<= Few) H 05/14/22 12:40 Urine Bacteria Few /HPF (None Seen) 05/14/22 12:40 Urine Casts 0-2 Fine Granular /LPF0-2 Hyaline Casts /LPF 05/14/22 12:40 Urine Casts 0-2 Fine Granular /LPF0-2 Hyaline Casts /LPF 05/14/22 12:40 Ur Microscopic Review INDICATED 05/14/22 12:40 Urine Culture Comments NOT INDICATED 05/14/22 12:40 Urine Opiates Screen NEGATIVE (NEGATIVE) 05/14/22 12:40 Ur Oxycodone Screen POSITIVE (NEGATIVE) H 05/14/22 12:40 Urine Methadone Screen NEGATIVE (NEGATIVE) 05/14/22 12:40 Ur Propoxyphene Screen NEGATIVE (NEGATIVE) 05/14/22 12:40 Ur Barbiturates Screen NEGATIVE (NEGATIVE) 05/14/22 12:40 Ur Tricyclics Screen NEGATIVE (NEGATIVE) 05/14/22 12:40 Ur Phencyclidine Scrn NEGATIVE (NEGATIVE) 05/14/22 12:40 Ur Amphetamine Screen NEGATIVE (NEGATIVE) 05/14/22 12:40 U Methamphetamines Scrn NEGATIVE (NEGATIVE) 05/14/22 12:40 U Benzodiazepines Scrn NEGATIVE (NEGATIVE) 05/14/22 12:40 Urine Cocaine Screen NEGATIVE (NEGATIVE) 05/14/22 12:40 U Cannabinoids Screen NEGATIVE (NEGATIVE) 05/14/22 12:40 Ethyl Alcohol < 5.0 mg/dL 05/14/22 11:58 SARS-CoV-2 (PCR) NOT DETECTED 05/14/22 13:40 - Procedures Procedures: Procedures INSERTION OF INFUSION DEV INTO SUP VENA CAVA, PERC APPROACH (12/10/21)
[2022-05-16] MEDS: D5.45NS W/20 MEQ KCL 1,000 ML IV SCH (17:53)
[2022-05-16 19:07] LABS: ANTI-DNA (DS) AB QN <1 IU/mL (0-9); CENTROMERE B ANTIBODIES <0.2 AI (0.0-0.9); CHROMATIN ANTIBODIES <0.2 AI (0.0-0.9); JO-1 AB <0.2 AI (0.0-0.9); RIBOSOMAL P ANTIBODIES <0.2 AI (0.0-0.9); RNP ANTIBODIES 0.5 AI (0.0-0.9); SCLERODERMA-70 ANTIBODIES <0.2 AI (0.0-0.9); SJOGREN'S ANTI-SS-A <0.2 AI (0.0-0.9); SJOGREN'S ANTI-SS-B 0.4 AI (0.0-0.9); SMITH ANTIBODIES <0.2 AI (0.0-0.9); SMITH/RNP ANTIBODIES <0.2 AI (0.0-0.9)
[2022-05-17] MEDS: SODIUM CHLORIDE FLUSH 0.9% 10 ML SYRINGE IVP SCH ×3 (00:47→17:04)
[2022-05-17] MEDS: oxyCODONE 5 MG TABLET PO PRN ×5 (04:47→22:01)
[2022-05-17] MEDS: LEVOTHYROXINE 25 MCG TABLET PO SCH (06:30)
[2022-05-17] MEDS: ACETAMINOPHEN 325 MG TABLET PO PRN ×4 (06:35→22:01)
[2022-05-17 08:42] LABS: CALCIUM 8.6 mg/dL (8.5-10.3); CREATININE 0.9 mg/dL (0.4-1.0)
[2022-05-17] MEDS: carvediloL 3.125 MG TABLET PO SCH ×2 (09:01→20:36)
[2022-05-17] MEDS: ASPIRIN EC 81 MG TABLET PO SCH (09:01)
[2022-05-17] MEDS: levETIRAcetam 250 MG TABLET PO SCH ×2 (09:02→20:36)
[2022-05-17] MEDS: BACLOFEN 10 MG TABLET PO SCH ×2 (09:11→20:36)
[2022-05-17] MEDS: LOSARTAN 50 MG TABLET PO SCH (09:13)
[2022-05-17] MEDS: ENOXAPARIN 40 MG/0.4 ML SYRINGE SUBQ SCH (09:15)
[2022-05-17] MEDS: D5.45NS W/20 MEQ KCL 1,000 ML IV SCH (12:17)
[2022-05-17] MEDS: NYSTATIN POWDER 15 GM TOP SCH ×2 (13:03→20:36)
[2022-05-17] MEDS: polyethylene glycoL 3350 17 GM PACKET PO SCH (13:10)
--- NOTE | 2022-05-17 19:05 | PROVIDER PROGRESS NOTE ---
Assessment/Plan - Problem List (1) Rhabdomyolysis Qualifiers: Rhabdomyolysis type: non-traumatic Qualified Code(s): M62.82 - Rhabdomyolysis Assessment/Plan: Her Total CK 4015>> 5800>> 3000>> 1000 today. Pt gave history of being prone on floor in her house overnight. Plan: continue IV hydration. Avoid nephrotoxins Follow CK until it is approaching a normal range Qualifiers: Rhabdomyolysis type: non-traumatic Qualified Code(s): M62.82 - Rhabdomyolysis (2) Frequent falls Conclusion/Plan: Per pt's story she slipped and fell on some milk. Has a history of falls, reports back pain, ankle pain. History of back and ankle surgery. Xrays obtai molina in ED are negative for fractures. Plan: PT/OT to evaluate Pain meds prn (3) Cognitive impairment At the last recent hospitalization 1 week ago, she had a SLUMS test done by OT and she scored 11/30, indicating severely cognitively impaired. She has had multiple admissions over the past year and advised to not go home to live alone, that she needs to be in as HALF-WAY. Nevertheless, she was allowed to return to her home at the last admission 1 week ago, because she wanted that. Then after a few days she has returned with AMS, which is how she repeatedly presents to our ER. In the past 1 month, she has had 5 hospitalizations here due to AMS. Plan: After this admission, and meeting with SW, she agreed to [facility] placement and wants to go to [facility] Social Work is working on this for after discharge (4) Hypernatremia Conclusion/Plan: Na was 145>> 146, after receiving NS at 200 cc/hour for her rhabdomyolysis. NS has improved to 140 after fluids changed to Hypotonic D5 1/2 NS and we decreased the rate, given her Hx of HFrEF Plan: Follow BMP daily (5) Rash on torso This has been present for the last several admissions. We thought it was either psoriasis or a fungal rash. Today her RN reports to me that she says the rash is painful. It is not in a dermatomal distribution to suggest Shingles. Plan: Will order topical treatment and pain medications (6) CAD with Hx of [place] Plan: We have restarted her B-briseida and baby aspirin daily. Will not restart her statin yet due to rhabdo (7) Chronic HFrEF Her EF was 35-40% (by Echo done here in 12/2021) Will have restarted her beta-briseida and ARB Plan: We will not restart her spironolactone yet due to needing IV fluids. Watch for development of volume overload (8) Hx of HTN Plan: We are resuming her various meds when appropriate (9) Hypothyroidism She used to be on Synthroid several admissions ago, but it was not listed on her reconciled med list this time. We checked her TSH and it came back elevated, consistent with her not being on Synthroid (probably since it was not copied from med list to med list during her frequent ER visits and hospitalizations). Plan: We have restarted Synthroid (10) Hx of seizures She used to be on Keppra several admissions ago, it was not listed on her reconciled med list. She has presented repeatedly delirious and obtunded/somnolent. Etiology was felt to be from UTIs, or dehydration, but may also have been post-ictal, if she had untreated seizures Plan: We have restarted her Keppra (11) Hyperlipidemia Plan: We will restart her statin once her rhabdo has improved (12) Hx of MS She is not on any particular treatment for this currently. We wonder if her personality and AMS presentations could be related to her multiple sclerosis. (13) Altered mental status Conclusion/Plan: Resolved She was delirious and obtunded/somnolent. In the past, etiology was felt to be from UTIs, or dehydration, but may also have been post-ictal if she had untreated seizures, or due to her MS. In the past 1 month she has had 5 hospitalizations here due to AMS. Plan: continue iv hydration for 1-2 more days Qualifiers: Altered mental status type: disorientation Qualified Code(s): R41.0 - Disorientation, unspecified (14) Hypokalemia Resolved with replacement This is likely related to inadequate intake or side effect of her meds Plan: Follow BMP daily - Current Meds Current Meds: Current Medications Generic Name Dose Route Start Last Admin Trade Name Freq PRN Reason Stop Dose Admin Acetaminophen 650 mg 05/14/22 15:41 05/17/22 17:04 Acetaminophen 325 Mg Tablet PO 650 mg Q4HR PRN Administration Pain 1 to 4, or Fever Aspirin 81 mg 05/16/22 09:00 05/17/22 09:01 Aspirin Ec 81 Mg Tablet PO 81 mg DAILY JIN Administration Baclofen 30 mg 05/15/22 21:00 05/17/22 09:11 Baclofen 10 Mg Tablet PO 30 mg BID JIN Administration Carvedilol 3.125 mg 05/15/22 09:00 05/17/22 09:01 Carvedilol 3.125 Mg Tablet PO 3.125 mg BID JIN Administration Diclofenac Sodium 75 mg 05/15/22 08:38 05/16/22 23:[address] 75 Mg Tablet PO 75 mg BID PRN Administration PAIN Enoxaparin Sodium 40 mg 05/15/22 09:00 05/17/22 09:15 Enoxaparin 40 Mg/0.4 Ml Syringe SUBQ 40 mg DAILY JIN Administration Potassium Chloride/Dextrose/Sod Cl 1,000 mls @ 50 mls/hr 05/16/22 18:00 05/17/22 12:19 D5.45ns W/20 Meq Kcl IV 05/18/22 09:59 50 mls/hr .Q20H JIN Infusion Levetiracetam 500 mg 05/15/22 21:00 05/17/22 09:02 Levetiracetam 250 Mg Tablet PO 500 mg BID JIN Administration Levothyroxine Sodium 50 mcg 05/16/22 07:00 05/17/22 06:30 Levothyroxine 25 Mcg Tablet PO 50 mcg QDAC JIN Administration Losartan Potassium 12.5 mg 05/15/22 09:00 05/17/22 09:13 Losartan 50 Mg Tablet PO 12.5 mg DAILY JIN Administration Nystatin 1 applic 05/15/22 21:00 05/17/22 13:03 Nystatin Powder 15 Gm TOP 1 applic BID JIN Administration Oxycodone HCl 5 mg 05/14/22 15:41 05/17/22 17:04 Oxycodone 5 Mg Tablet PO 5 mg Q4HR PRN Administration Pain 5 to 7 Polyethylene Glycol 17 gm 05/17/22 12:00 05/17/22 13:10 Polyethylene Glycol 3350 17 Gm Packet PO 17 gm DAILY JIN Administration Sodium Chloride 10 ml 05/14/22 17:00 05/17/22 17:04 Sodium Chloride Flush 0.9% 10 Ml Syringe IVP Not Given 0100,0900,1700 JIN - Lab Result Fish Bone Diagrams: 05/15/22 04:15 05/17/22 08:23 - Additional Planning My Orders: My Active Orders 05/17/22 12:00 polyethylene glycoL 3350 [Miralax] 17 gm PO DAILY 05/18/22 09:00 Docusate Sodium 250Mg Capsule [Colace 250Mg Capsule] 250 - 500 mg PO DAILY Senna [Senokot] 8.6 - 17.2 mg PO DAILY Subjective - Subjective Patient Reports: Resting Comfortably, Pain (when moved and when tries to stand) Objective Vital Signs: Vital Signs - 24 hr 05/16/22 05/16/22 05/17/22 20:50 23:55 04:38 Temperature 36.3 C L 36.2 C L 36.4 C L Heart Rate [ 58 L 63 62 Brachial] Respiratory 18 20 16 Rate Blood Pressure [Left Brachial artery] Blood Pressure 106/55 L 107/50 L 117/74 [Right Brachial artery] O2 Saturation 96 95 98 05/17/22 05/17/22 05/17/22 08:06 11:32 15:48 Temperature 36.5 C 36.4 C L 36.2 C L Heart Rate [ 65 60 60 Brachial] Respiratory 17 16 20 Rate Blood Pressure 110/58 L 102/80 [Left Brachial artery] Blood Pressure 109/62 [Right Brachial artery] O2 Saturation 97 97 99 Oxygen O2 Source [With Activity] Room air O2 Source [Without Activity] Room air O2 Source Room air I&O (Last 24 Hrs): Intake and Output Totals x24h 05/15/22 05/16/22 05/17/22 23:59 23:59 23:59 Intake Total 4763.333 1180 1675.667 Output Total 363 534 1372 Balance 3813.333 980 575.667 General: Alert, Oriented x3, Other (Obese) HEENT: Mucous membr. moist/pink Neck: Supple, No JVD Neuro: Alert, Non Focal, Other (Response isounds forced and she often yells her answer) Cardiovascular: Regular rate, No murmurs (Distant heart sounds due to large breasts and obesity.) Respiratory: No respiratory distress, Breath sounds nml Abdomen: Normal bowel sounds, Soft, Other (Obese with pannus) Extremities: Other (Trace edema. Multiple ecchymoses which are tender.) Skin: No breakdown (Red papular vrash of bilateral posterior thighs, both buttocks and across her low back) - Results Results: Laboratory Results WBC 9.9 x10^3/uL (4.8-10.8) 05/15/22 04:15 RBC 3.82 10^6/uL (4.20-5.40) L 05/15/22 04:15 Hgb 10.6 g/dL (12.0-16.0) L 05/15/22 04:15 Hct 35.4 % (37.0-47.0) L 05/15/22 04:15 MCV 92.7 fL (81.0-99.0) 05/15/22 04:15 MCH 27.7 pg (27.0-31.0) 05/15/22 04:15 MCHC 29.9 g/dL (32.0-36.0) L 05/15/22 04:15 RDW 16.3 % (12.0-15.0) H 05/15/22 04:15 Plt Count 316 10^3/uL (130-450) 05/15/22 04:15 MPV 11.0 fL (7.9-10.8) H 05/15/22 04:15 Neut # (Auto) 5.5 10^3/uL (1.5-6.6) 05/15/22 04:15 Lymph # (Auto) 3.1 10^3/uL (1.5-3.5) 05/15/22 04:15 [place] # (Auto) 1.1 10^3/uL (0.0-1.0) H 05/15/22 04:15 Eos # (Auto) 0.0 10^3/uL (0.0-0.7) 05/15/22 04:15 Baso # (Auto) 0.1 10^3/uL (0.0-0.1) 05/15/22 04:15 Absolute Nucleated RBC 0.00 x10^3/uL 05/15/22 04:15 Nucleated RBC % 0.0 /100WBC 05/15/22 04:15 Sodium 138 mmol/L (135-145) 05/17/22 08:23 Potassium 4.0 mmol/L (3.5-5.0) 05/17/22 08:23 Chloride 110 mmol/L (101-111) 05/17/22 08:23 Carbon Dioxide 23 mmol/L (21-32) 05/17/22 08:23 Anion Gap 5.0 (6-13) L 05/17/22 08:23 BUN 16 mg/dL (6-20) 05/17/22 08:23 Creatinine 0.9 mg/dL (0.4-1.0) 05/17/22 08:23 Estimated GFR (MDRD) 63 (>89) L 05/17/22 08:23 Glucose 108 mg/dL (70-100) H 05/17/22 08:23 Lactic Acid 1.6 mmol/L (0.5-2.2) 05/14/22 11:58 Calcium 8.6 mg/dL (8.5-10.3) 05/17/22 08:23 Total Bilirubin 0.9 mg/dL (0.2-1.0) 05/14/22 11:58 AST 73 IU/L (10-42) H 05/14/22 11:58 ALT 28 IU/L (10-60) 05/14/22 11:58 Alkaline Phosphatase 120 IU/L (42-121) 05/14/22 11:58 Ammonia 12.4 umol/L (7-35) 05/14/22 11:58 Total Creatine Kinase 1207 IU/L (22-269) H* 05/17/22 08:23 C-Reactive Protein 11.3 mg/dL (0-1.0) H 05/15/22 04:15 B-Natriuretic Peptide 468 pg/mL (5-100) H 05/14/22 11:58 Total Protein 8.3 g/dL (6.7-8.2) H 05/14/22 11:58 Albumin 4.0 g/dL (3.2-5.5) 05/14/22 11:58 Globulin 4.3 g/dL (2.1-4.2) H 05/14/22 11:58 Albumin/Globulin Ratio 0.9 (1.0-2.2) L 05/14/22 11:58 Lipase 31 U/L (22-51) 05/14/22 11:58 TSH 7.51 uIU/mL (0.34-5.60) H 05/16/22 05:03 Urine Color YELLOW 05/14/22 12:40 Urine Clarity HAZY (CLEAR) 05/14/22 12:40 Urine pH 6.0 PH (5.0-7.5) 05/14/22 12:40 Ur Specific [place] 1.025 (1.002-1.030) 05/14/22 12:40 Urine Protein 30 mg/dL (NEGATIVE) H 05/14/22 12:40 Urine Glucose (UA) NEGATIVE mg/dL (NEGATIVE) 05/14/22 12:40 Urine Ketones TRACE mg/dL (NEGATIVE) 05/14/22 12:40 Urine Occult Blood LARGE (NEGATIVE) H 05/14/22 12:40 Urine Nitrite NEGATIVE (NEGATIVE) 05/14/22 12:40 Urine Bilirubin NEGATIVE (NEGATIVE) 05/14/22 12:40 Urine Urobilinogen 0.2 (NORMAL) E.U./dL (NORMAL) 05/14/22 12:40 Ur Leukocyte Esterase NEGATIVE (NEGATIVE) 05/14/22 12:40 Urine RBC 6-10 /HPF (0-5) H 05/14/22 12:40 Urine WBC 0-3 /HPF (0-5) 05/14/22 12:40 Ur Squamous Epith Cells MOD Squamous (<= Few) H 05/14/22 12:40 Urine Bacteria Few /HPF (None Seen) 05/14/22 12:40 Urine Casts 0-2 Fine Granular /LPF0-2 Hyaline Casts /LPF 05/14/22 12:40 Urine Casts 0-2 Fine Granular /LPF0-2 Hyaline Casts /LPF 05/14/22 12:40 Ur Microscopic Review INDICATED 05/14/22 12:40 Urine Culture Comments NOT INDICATED 05/14/22 12:40 Urine Opiates Screen NEGATIVE (NEGATIVE) 05/14/22 12:40 Ur Oxycodone Screen POSITIVE (NEGATIVE) H 05/14/22 12:40 Urine Methadone Screen NEGATIVE (NEGATIVE) 05/14/22 12:40 Ur Propoxyphene Screen NEGATIVE (NEGATIVE) 05/14/22 12:40 Ur Barbiturates Screen NEGATIVE (NEGATIVE) 05/14/22 12:40 Ur Tricyclics Screen NEGATIVE (NEGATIVE) 05/14/22 12:40 Ur Phencyclidine Scrn NEGATIVE (NEGATIVE) 05/14/22 12:40 Ur Amphetamine Screen NEGATIVE (NEGATIVE) 05/14/22 12:40 U Methamphetamines Scrn NEGATIVE (NEGATIVE) 05/14/22 12:40 U Benzodiazepines Scrn NEGATIVE (NEGATIVE) 05/14/22 12:40 Urine Cocaine Screen NEGATIVE (NEGATIVE) 05/14/22 12:40 U Cannabinoids Screen NEGATIVE (NEGATIVE) 05/14/22 12:40 Ethyl Alcohol < 5.0 mg/dL 05/14/22 11:58 MAC Interpretation Comment (.) 05/15/22 09:04 Anti-sm/NUT DEHYDRATOR OPERATOR Abs <0.2 AI (0.0-0.9) 05/15/22 09:04 RAFAELA-1 Antibody <0.2 AI (0.0-0.9) 05/15/22 09:04 SS-A/Ro Antibody <0.2 AI (0.0-0.9) 05/15/22 09:04 SS-B/La Antibody 0.4 AI (0.0-0.9) 05/15/22 09:04 Sm (Triana) Antibody <0.2 AI (0.0-0.9) 05/15/22 09:04 NUT DEHYDRATOR OPERATOR Antibody 0.5 AI (0.0-0.9) 05/15/22 09:04 Scl-70 Scleroderma Ab <0.2 AI (0.0-0.9) 05/15/22 09:04 Double Strand DNA Ab <1 IU/mL (0-9) 05/15/22 09:04 Ribosomal P Prot Ab <0.2 AI (0.0-0.9) 05/15/22 09:04 Chromatin Antibody <0.2 AI (0.0-0.9) 05/15/22 09:04 Centromere B Antibody <0.2 AI (0.0-0.9) 05/15/22 09:04 SARS-CoV-2 (PCR) NOT DETECTED 05/14/22 13:40 - Procedures Procedures: Procedures INSERTION OF INFUSION DEV INTO SUP VENA CAVA, PERC APPROACH (12/10/21)
[2022-05-18] MEDS: SODIUM CHLORIDE FLUSH 0.9% 10 ML SYRINGE IVP SCH ×4 (01:30→17:20)
[2022-05-18] MEDS: ACETAMINOPHEN 325 MG TABLET PO PRN ×4 (03:45→17:16)
[2022-05-18] MEDS: oxyCODONE 5 MG TABLET PO PRN ×4 (03:46→17:17)
[2022-05-18 05:07] LABS: CREATININE 0.8 mg/dL (0.4-1.0); POTASSIUM 4.7 mmol/L (3.5-5.0)
[2022-05-18] MEDS: LEVOTHYROXINE 25 MCG TABLET PO SCH (06:02)
[2022-05-18] MEDS: LOSARTAN 50 MG TABLET PO SCH (08:54)
[2022-05-18] MEDS: DOCUSATE SODIUM 250 MG CAPSULE PO SCH (08:55)
[2022-05-18] MEDS: BACLOFEN 10 MG TABLET PO SCH ×2 (08:56→21:10)
[2022-05-18] MEDS: levETIRAcetam 250 MG TABLET PO SCH ×2 (08:56→21:10)
[2022-05-18] MEDS: ASPIRIN EC 81 MG TABLET PO SCH (08:57)
[2022-05-18] MEDS: carvediloL 3.125 MG TABLET PO SCH ×2 (08:57→21:10)
[2022-05-18] MEDS: SENNA 8.6 MG TABLET PO SCH (08:58)
[2022-05-18] MEDS: ENOXAPARIN 40 MG/0.4 ML SYRINGE SUBQ SCH (08:58)
[2022-05-18] MEDS: NYSTATIN POWDER 15 GM TOP SCH ×2 (11:14→21:10)
[2022-05-18] MEDS: polyethylene glycoL 3350 17 GM PACKET PO SCH (11:14)
--- NOTE | 2022-05-18 15:54 | PROVIDER PROGRESS NOTE ---
Assessment/Plan - Problem List (1) Rhabdomyolysis Assessment/Plan: Her Total CK 4015>> 5800>> 3000>> 1000>> 700 today. Pt gave history of being prone on floor in her house overnight. She cannot remember how she fell Plan: will stop iv hydration today, as she is taking in good oral fluids Avoid nephrotoxins Qualifiers: Rhabdomyolysis type: non-traumatic Qualified Code(s): M62.82 - Rhabdomyolysis (2) R knee swelling She cannot remember how she fell at home before this current ER presentation. For the last 2 days, PT has noticed that she is only toe touching on the right side, cannot bear weight because the right knee hurts. The right knee has swelling and warmth but no redness. It is hard for her to straighten it or to bend it excessively. At admission there were x-rays done of the right foot, left wrist and LS-spine but not the right knee Plan: Will obtain x-rays of R knee Continue with NSAIDs for pain control, as it has the appearance of inflammatory arthritis, or gout (3) Frequent falls Conclusion/Plan: Per pt's story she slipped and fell on some milk. Has a history of falls, reported back pain, ankle pain. History of back and ankle surgery. Xrays obtained in ED were negative for fractures. For the last 2 days, PT has noticed that she is only toe touching on the right side, cannot bear weight because the right knee hurts. Plan: PT/OT to work with her Pain meds prn (4) Rash on torso This has been present for the last several admissions. We thought it was either psoriasis or a fungal rash. Today her RN reports to me that she says the rash is painful. It is not in a dermatomal distribution to suggest Shingles. Plan: Will order topical treatment and pain medications (5) CAD with Hx of [place] Plan: We have restarted her B-briseida and baby aspirin daily. Will not restart her statin yet due to rhabdo (6) Chronic HFrEF Her EF was 35-40% (by Echo done here in 12/2021) Will have restarted her beta-briseida and ARB Plan: We will not restart her spironolactone yet due to needing IV fluids. Watch for development of volume overload (7) HTN Plan: We are resuming her various meds when appropriate (8) Hypothyroidism She used to be on Synthroid several admissions ago, but it was not listed on her reconciled med list this time. We checked her TSH and it came back elevated, consistent with her not being on Synthroid (probably since it was not copied from med list to med list during her frequent ER visits and hospitalizations). Plan: We have restarted Synthroid (9) Hx of seizures She used to be on Keppra several admissions ago, it was not listed on her reconciled med list. She has presented repeatedly delirious and obtunded/somnolent. Etiology was felt to be from UTIs, or dehydration, but may also have been post-ictal, if she had untreated seizures Plan: We have restarted her Keppra (10) Hyperlipidemia Plan: We will restart her statin once her rhabdo has improved (11) Hx of MS She is not on any particular treatment for this currently. We wonder if her personality and AMS presentations could be related to her multiple sclerosis. (12) Cognitive impairment At the last recent hospitalization 1 week ago, she had a SLUMS test done by OT and she scored 11/30, indicating severely cognitively impaired, however, the staff was not sure if she was actively participating to make that an accurate score. She has had multiple admissions over the past year and advised to not go home to live alone, that she needs to be in as [facility]. She was allowed to return to her home at the last admission 1 week ago, because she wanted that. Then after a few days she has returned with AMS, which is how she repeatedly presents to our ER. In the past 1 month, she has had 5 hospitalizations here due to AMS. Plan: Since this admission, and after meeting with SW, she agreed to fpc placement and wants to go to [facility] Social Work is working on this location for her after discharge (13) Hypernatremia Conclusion/Plan: Resolved after hypotonic fluids (14) Altered mental status Conclusion/Plan: Resolved She was delirious and obtunded/somnolent. In the past, etiology was felt to be from UTIs, or dehydration, but may also have been post-ictal if she had untreated seizures, or due to her MS. In the past 1 month she has had 5 hospital izations here due to AMS. Qualifiers: Altered mental status type: disorientation Qualified Code(s): R41.0 - Disorientation, unspecified (15) Hypokalemia Resolved with replacement - Current Meds Current Meds: Current Medications Generic Name Dose Route Start Last Admin Trade Name Freq PRN Reason Stop Dose Admin Acetaminophen 650 mg 05/14/22 15:41 05/18/22 12:57 Acetaminophen 325 Mg Tablet PO 650 mg Q4HR PRN Administration Pain 1 to 4, or Fever Aspirin 81 mg 05/16/22 09:00 05/18/22 08:57 Aspirin Ec 81 Mg Tablet PO 81 mg DAILY JIN Administration Baclofen 30 mg 05/15/22 21:00 05/18/22 08:56 Baclofen 10 Mg Tablet PO 30 mg BID JIN Administration Carvedilol 3.125 mg 05/15/22 09:00 05/18/22 08:57 Carvedilol 3.125 Mg Tablet PO 3.125 mg BID JIN Administration Diclofenac Sodium 75 mg 05/15/22 08:38 05/16/22 23:[address] 75 Mg Tablet PO 75 mg BID PRN Administration PAIN Docusate Sodium 250 - 500 mg 05/18/22 09:00 05/18/22 08:55 Docusate Sodium 250 Mg Capsule PO 250 mg DAILY JIN Administration Enoxaparin Sodium 40 mg 05/15/22 09:00 05/18/22 08:58 Enoxaparin 40 Mg/0.4 Ml Syringe SUBQ 40 mg DAILY JIN Administration Levetiracetam 500 mg 05/15/22 21:00 05/18/22 08:56 Levetiracetam 250 Mg Tablet PO 500 mg BID JIN Administration Levothyroxine Sodium 50 mcg 05/16/22 07:00 05/18/22 06:02 Levothyroxine 25 Mcg Tablet PO 50 mcg QDAC JIN Administration Losartan Potassium 12.5 mg 05/15/22 09:00 05/18/22 08:54 Losartan 50 Mg Tablet PO 12.5 mg DAILY IJN Administration Nystatin 1 applic 05/15/22 21:00 05/18/22 11:14 Nystatin Powder 15 Gm TOP 1 applic BID JIN Administration Oxycodone HCl 5 mg 05/14/22 15:41 05/18/22 12:57 Oxycodone 5 Mg Tablet PO 5 mg Q4HR PRN Administration Pain 5 to 7 Polyethylene Glycol 17 gm 05/17/22 12:00 05/18/22 11:14 Polyethylene Glycol 3350 17 Gm Packet PO 17 gm DAILY JIN Administration Senna 8.6 - 17.2 mg 05/18/22 09:00 05/18/22 08:58 Senna 8.6 Mg Tablet PO 8.6 mg DAILY JIN Administration Sodium Chloride 10 ml 05/14/22 17:00 05/18/22 11:14 Sodium Chloride Flush 0.9% 10 Ml Syringe IVP Not Given 0100,0900,1700 JIN - Lab Result Fish Bone Diagrams: 05/15/22 04:15 05/18/22 04:47 - Additional Planning My Orders: My Active Orders 05/18/22 09:00 Docusate Sodium 250Mg Capsule [Colace 250Mg Capsule] 250 - 500 mg PO DAILY Senna [Senokot] 8.6 - 17.2 mg PO DAILY 05/18/22 10:58 IV Discontinuation [RC] .ONCE Subjective - Subjective Patient Reports: Resting Comfortably, Pain (in multiple locations) Objective Vital Signs: Vital Signs - 24 hr 05/17/22 05/18/22 05/18/22 20:01 00:31 04:33 Temperature 36.2 C L 36.3 C L 36.3 C L Heart Rate [ 68 58 L 58 L Brachial] Respiratory 20 18 20 Rate Blood Pressure 126/60 [Left Brachial artery] Blood Pressure 117/57 L 128/64 [Right Brachial artery] O2 Saturation 99 98 100 05/18/22 05/18/22 08:51 15:35 Temperature 36.5 C 36.9 C Heart Rate [ 72 66 Brachial] Respiratory 17 16 Rate Blood Pressure 130/69 [Left Brachial artery] Blood Pressure 119/70 [Right Brachial artery] O2 Saturation 97 94 Oxygen O2 Source [With Activity] Room air O2 Source [Without Activity] Room air O2 Source Room air I&O (Last 24 Hrs): Intake and Output Totals x24h 05/16/22 05/17/22 05/18/22 23:59 23:59 23:59 Intake Total 1180 2326.667 580 Output Total 200 1300 1450 Balance 980 1026.667 -870 General: Alert, No acute distress HEENT: Mucous membr. moist/pink, Other (edentulous) Neck: Supple, No JVD Neuro: Alert, Disoriented, Non Focal Cardiovascular: Regular rate Respiratory: No respiratory distress Abdomen: Normal bowel sounds, Soft, Other (Obese with a pannus) Extremities: No clubbing, Other (R knee is warm and swollen, not red, and she is keeping R leg in position semi-bent at the knee, knee is tender went moved) - Results Results: Laboratory Results WBC 9.9 x10^3/uL (4.8-10.8) 05/15/22 04:15 RBC 3.82 10^6/uL (4.20-5.40) L 05/15/22 04:15 Hgb 10.6 g/dL (12.0-16.0) L 05/15/22 04:15 Hct 35.4 % (37.0-47.0) L 05/15/22 04:15 MCV 92.7 fL (81.0-99.0) 05/15/22 04:15 MCH 27.7 pg (27.0-31.0) 05/15/22 04:15 MCHC 29.9 g/dL (32.0-36.0) L 05/15/22 04:15 RDW 16.3 % (12.0-15.0) H 05/15/22 04:15 Plt Count 316 10^3/uL (130-450) 05/15/22 04:15 MPV 11.0 fL (7.9-10.8) H 05/15/22 04:15 Neut # (Auto) 5.5 10^3/uL (1.5-6.6) 05/15/22 04:15 Lymph # (Auto) 3.1 10^3/uL (1.5-3.5) 05/15/22 04:15 [place] # (Auto) 1.1 10^3/uL (0.0-1.0) H 05/15/22 04:15 Eos # (Auto) 0.0 10^3/uL (0.0-0.7) 05/15/22 04:15 Baso # (Auto) 0.1 10^3/uL (0.0-0.1) 05/15/22 04:15 Absolute Nucleated RBC 0.00 x10^3/uL 05/15/22 04:15 Nucleated RBC % 0.0 /100WBC 05/15/22 04:15 Sodium 139 mmol/L (135-145) 05/18/22 04:47 Potassium 4.7 mmol/L (3.5-5.0) 05/18/22 04:47 Chloride 109 mmol/L (101-111) 05/18/22 04:47 Carbon Dioxide 21 mmol/L (21-32) 05/18/22 04:47 Anion Gap 9.0 (6-13) 05/18/22 04:47 BUN 16 mg/dL (6-20) 05/18/22 04:47 Creatinine 0.8 mg/dL (0.4-1.0) 05/18/22 04:47 Estimated GFR (MDRD) 72 (>89) L 05/18/22 04:47 Glucose 90 mg/dL (70-100) 05/18/22 04:47 Lactic Acid 1.6 mmol/L (0.5-2.2) 05/14/22 11:58 Calcium 9.0 mg/dL (8.5-10.3) 05/18/22 04:47 Total Bilirubin 0.9 mg/dL (0.2-1.0) 05/14/22 11:58 AST 73 IU/L (10-42) H 05/14/22 11:58 ALT 28 IU/L (10-60) 05/14/22 11:58 Alkaline Phosphatase 120 IU/L (42-121) 05/14/22 11:58 Ammonia 12.4 umol/L (7-35) 05/14/22 11:58 Total Creatine Kinase 742 IU/L (22-269) H 05/18/22 04:47 C-Reactive Protein 11.3 mg/dL (0-1.0) H 05/15/22 04:15 B-Natriuretic Peptide 468 pg/mL (5-100) H 05/14/22 11:58 Total Protein 8.3 g/dL (6.7-8.2) H 05/14/22 11:58 Albumin 4.0 g/dL (3.2-5.5) 05/14/22 11:58 Globulin 4.3 g/dL (2.1-4.2) H 05/14/22 11:58 Albumin/Globulin Ratio 0.9 (1.0-2.2) L 05/14/22 11:58 Lipase 31 U/L (22-51) 05/14/22 11:58 TSH 7.51 uIU/mL (0.34-5.60) H 05/16/22 05:03 Urine Color YELLOW 05/14/22 12:40 Urine Clarity HAZY (CLEAR) 05/14/22 12:40 Urine pH 6.0 PH (5.0-7.5) 05/14/22 12:40 Ur Specific [place] 1.025 (1.002-1.030) 05/14/22 12:40 Urine Protein 30 mg/dL (NEGATIVE) H 05/14/22 12:40 Urine Glucose (UA) NEGATIVE mg/dL (NEGATIVE) 05/14/22 12:40 Urine Ketones TRACE mg/dL (NEGATIVE) 05/14/22 12:40 Urine Occult Blood LARGE (NEGATIVE) H 05/14/22 12:40 Urine Nitrite NEGATIVE (NEGATIVE) 05/14/22 12:40 Urine Bilirubin NEGATIVE (NEGATIVE) 05/14/22 12:40 Urine Urobilinogen 0.2 (NORMAL) E.U./dL (NORMAL) 05/14/22 12:40 Ur Leukocyte Esterase NEGATIVE (NEGATIVE) 05/14/22 12:40 Urine RBC 6-10 /HPF (0-5) H 05/14/22 12:40 Urine WBC 0-3 /HPF (0-5) 05/14/22 12:40 Ur Squamous Epith Cells MOD Squamous (<= Few) H 05/14/22 12:40 Urine Bacteria Few /HPF (None Seen) 05/14/22 12:40 Urine Casts 0-2 Fine Granular /LPF0-2 Hyaline Casts /LPF 05/14/22 12:40 Urine Casts 0-2 Fine Granular /LPF0-2 Hyaline Casts /LPF 05/14/22 12:40 Ur Microscopic Review INDICATED 05/14/22 12:40 Urine Culture Comments NOT INDICATED 05/14/22 12:40 Urine Opiates Screen NEGATIVE (NEGATIVE) 05/14/22 12:40 Ur Oxycodone Screen POSITIVE (NEGATIVE) H 05/14/22 12:40 Urine Methadone Screen NEGATIVE (NEGATIVE) 05/14/22 12:40 Ur Propoxyphene Screen NEGATIVE (NEGATIVE) 05/14/22 12:40 Ur Barbiturates Screen NEGATIVE (NEGATIVE) 05/14/22 12:40 Ur Tricyclics Screen NEGATIVE (NEGATIVE) 05/14/22 12:40 Ur Phencyclidine Scrn NEGATIVE (NEGATIVE) 05/14/22 12:40 Ur Amphetamine Screen NEGATIVE (NEGATIVE) 05/14/22 12:40 U Methamphetamines Scrn NEGATIVE (NEGATIVE) 05/14/22 12:40 U Benzodiazepines Scrn NEGATIVE (NEGATIVE) 05/14/22 12:40 Urine Cocaine Screen NEGATIVE (NEGATIVE) 05/14/22 12:40 U Cannabinoids Screen NEGATIVE (NEGATIVE) 05/14/22 12:40 Ethyl Alcohol < 5.0 mg/dL 05/14/22 11:58 MAC Interpretation Comment (.) 05/15/22 09:04 Anti-sm/STUD DRIVER Abs <0.2 AI (0.0-0.9) 05/15/22 09:04 RAFAELA-1 Antibody <0.2 AI (0.0-0.9) 05/15/22 09:04 SS-A/Ro Antibody <0.2 AI (0.0-0.9) 05/15/22 09:04 SS-B/La Antibody 0.4 AI (0.0-0.9) 05/15/22 09:04 Sm (Triana) Antibody <0.2 AI (0.0-0.9) 05/15/22 09:04 STUD DRIVER Antibody 0.5 AI (0.0-0.9) 05/15/22 09:04 Scl-70 Scleroderma Ab <0.2 AI (0.0-0.9) 05/15/22 09:04 Double Strand DNA Ab <1 IU/mL (0-9) 05/15/22 09:04 Ribosomal P Prot Ab <0.2 AI (0.0-0.9) 05/15/22 09:04 Chromatin Antibody <0.2 AI (0.0-0.9) 05/15/22 09:04 Centromere B Antibody <0.2 AI (0.0-0.9) 05/15/22 09:04 SARS-CoV-2 (PCR) NOT DETECTED 05/14/22 13:40 - Procedures Procedures: Procedures INSERTION OF INFUSION DEV INTO SUP VENA CAVA, PERC APPROACH (12/10/21)
--- NOTE | 2022-05-18 17:01 | XRAY Report ---
PROCEDURE: Knee 2 View RT INDICATIONS: Knee swelling and warmth, fall at home 5 days ago TECHNIQUE: 2 views of the right knee(s) were acquired. COMPARISON: None. FINDINGS: Bones: No fractures or dislocations but there is a moderately severe degree of degenerative osteoart hritis at the medial compartment of the right knee, and mild distortion that appears chronic involvin g the medial femoral condyle and possibly also the medial tibial plateau in a pattern that raises que stion of prior significant traumatic injury to that portion of the knee.. No suspicious bony lesions . Soft tissues: No joint effusion. No suspicious soft tissue calcifications. IMPRESSION: Suspect prior significant traumatic injury to the medial right knee given the pattern of mild distortion of the medial femoral condyle and medial tibial plateau. A joint effusion is not ass ociated and therefore acute trauma is not considered likely. Please correlate clinically. Moderately severe medial compartment degenerative knee joint osteoarthritis. Reviewed by: Tylor Chowdhury MD on 05/18/2022 5:00 PM PST Approved by: Tylor Chowdhury MD on 05/18/2022 5:00 PM PST Station ID: [id number]
[2022-05-18] MEDS: PANTOPRAZOLE 40 MG TABLET PO SCH (21:10)
[2022-05-18] MEDS: DICLOFENAC SODIUM DR 75 MG TABLET PO SCH (21:10)
[2022-05-19] MEDS: SODIUM CHLORIDE FLUSH 0.9% 10 ML SYRINGE IVP SCH ×3 (00:32→17:06)
[2022-05-19] MEDS: LEVOTHYROXINE 25 MCG TABLET PO SCH (05:47)
[2022-05-19] MEDS: oxyCODONE 5 MG TABLET PO PRN ×4 (05:47→19:14)
[2022-05-19] MEDS: ACETAMINOPHEN 325 MG TABLET PO PRN ×2 (05:48→19:14)
[2022-05-19] MEDS: polyethylene glycoL 3350 17 GM PACKET PO SCH (08:47)
[2022-05-19] MEDS: DOCUSATE SODIUM 250 MG CAPSULE PO SCH (08:48)
[2022-05-19] MEDS: DICLOFENAC SODIUM DR 75 MG TABLET PO SCH ×2 (08:48→21:06)
[2022-05-19] MEDS: levETIRAcetam 250 MG TABLET PO SCH ×2 (08:48→21:06)
[2022-05-19] MEDS: LOSARTAN 50 MG TABLET PO SCH (08:48)
[2022-05-19] MEDS: SENNA 8.6 MG TABLET PO SCH (08:48)
[2022-05-19] MEDS: PANTOPRAZOLE 40 MG TABLET PO SCH ×2 (08:49→21:06)
[2022-05-19] MEDS: carvediloL 3.125 MG TABLET PO SCH ×2 (08:49→21:06)
[2022-05-19] MEDS: ASPIRIN EC 81 MG TABLET PO SCH (08:49)
[2022-05-19] MEDS: BACLOFEN 10 MG TABLET PO SCH ×2 (08:52→21:06)
[2022-05-19] MEDS: ENOXAPARIN 40 MG/0.4 ML SYRINGE SUBQ SCH (09:49)
[2022-05-19] MEDS: FLUTICASONE NASAL SPRAY NAS PRN (13:09)
[2022-05-19] MEDS: NYSTATIN POWDER 15 GM TOP SCH ×2 (13:13→21:06)
--- NOTE | 2022-05-19 19:32 | PROVIDER PROGRESS NOTE ---
Assessment/Plan - Problem List (1) Rhabdomyolysis Assessment/Plan: Her Total CK 4015>> yesterday was 700 after several days of iv fluids. Pt gave history of being prone on floor in her house overnight. She cannot remember how she fell iv hydration was stopped yesterday, as she is taking in good oral fluids Can stop following CK Qualifiers: Rhabdomyolysis type: non-traumatic Qualified Code(s): M62.82 - Rhabdomyolysis (2) R knee swelling She cannot remember how she fell at home before this current ER presentation. Fo r the last several days, PT had noticed that she is only toe touching on the right side, cannot bear weight because the right knee hurts. The right knee has swelling and warmth but no redness. It is hard for her to straighten it or to bend it excessively. At admission there were x-rays done of the right foot, left wrist and LS-spine but not the right knee We obtained x-rays of R knee>> many abnormalities seen Plan: Will request Ortho consult, but we have no Ortho service available until 05/21 ( in 2 days) Will continue with NSAIDs scheduled not prn, for pain control, as it has the appearance of inflammatory arthritis, or gout (3) Frequent falls Conclusion/Plan: Per pt's story she slipped and fell on some milk. Has a history of falls, reported back pain, ankle pain. History of back and ankle surgery. Xrays obtained in ED were negative for fractures. For the last 2 days, PT has noticed that she is only toe touching on the right side, cannot bear weight because the right knee hurts. Plan: PT/OT to continue to work with her Pain meds prn (4) Rash on torso This has been present for the last several admissions. We thought it was either psoriasis or a fungal rash. Today her RN reports to me that she says the rash is painful. It is not in a dermatomal distribution to suggest Shingles. Plan: We ordered topical treatment and pain medications (5) CAD with Hx of [place] Plan: We have restarted her B-briseida and baby aspirin daily. Will not restart her statin yet due to rhabdo (6) Chronic HFrEF Her EF was 35-40% (by Echo done here in 12/2021) Will have restarted her beta-briseida and ARB Plan: We have not restart her spironolactone yet due to needing IV fluids for rhabdo. Watch for development of volume overload (7) HTN Plan: We are resuming her various meds when appropriate (8) Hypothyroidism She used to be on Synthroid several admissions ago, but it was not listed on her reconciled med list this time. We checked her TSH and it came back elevated, consistent with her not being on Synthroid (probably since it was not copied from med list to med list during her frequent ER visits and hospitalizations). Plan: We have restarted Synthroid (9) Hx of seizures She used to be on Keppra several admissions ago, it was not listed on her reconciled med list. She has presented repeatedly delirious and obtunded/somnolent. Etiology was felt to be from UTIs, or dehydration, but may also have been post-ictal, if she had untreated seizures Plan: We have restarted her Keppra (10) Hyperlipidemia Plan: We will restart her statin once her rhabdo has improved (11) Hx of MS She is not on any particular treatment for this currently. We wonder if her personality and AMS presentations could be related to her multiple sclerosis. (12) Cognitive impairment At the last recent hospitalization 1 week ago, she had a SLUMS test done by OT and she scored 11/30, indicating severely cognitively impaired, however, the staff was not sure if she was actively participating to make that an accurate score. She has had multiple admissions over the past year and advised to not go home to live alone, that she needs to be in as [facility]. She was allowed to return to her home at the last admission 1 week ago, because she wanted that. Then after a few days she has returned with AMS, which is how she repeatedly presents to our ER. In the past 1 month, she has had 5 hospitalizations here due to AMS. Plan: Since this admission, and after meeting with SW, she agreed to [facility] placement and wants to go to [facility] Social Work is working on this location for her after discharge (13) Hypernatremia Conclusion/Plan: Resolved after hypotonic fluids (14) Altered mental status Conclusion/Plan: Resolved She was delirious and obtunded/somnolent. In the past, etiology was felt to be from UTIs, or dehydration, but may also have been post-ictal if she had untreated seizures, or due to her MS. In the past 1 month she has had 5 hospitalizations here due to AMS. Qualifiers: Altered mental status type: disorientation Qualified Code(s): R41.0 - Disorientation, unspecified (15) Hypokalemia Resolved with replacement - Current Meds Current Meds: Current Medications Generic Name Dose Route Start Last Admin Trade Name Freq PRN Reason Stop Dose Admin Acetaminophen 650 mg 05/14/22 15:41 05/19/22 19:14 Acetaminophen 325 Mg Tablet PO 650 mg Q4HR PRN Administration Pain 1 to 4, or Fever Aspirin 81 mg 05/16/22 09:00 05/19/22 08:49 Aspirin Ec 81 Mg Tablet PO 81 mg DAILY JIN Administration Baclofen 30 mg 05/15/22 21:00 05/19/22 08:52 Baclofen 10 Mg Tablet PO 30 mg BID JIN Administration Carvedilol 3.125 mg 05/15/22 09:00 05/19/22 08:49 Carvedilol 3.125 Mg Tablet PO 3.125 mg BID JIN Administration Diclofenac Sodium 75 mg 05/18/22 21:00 05/19/22 08:[address] 75 Mg Tablet PO 75 mg BID JIN Administration Docusate Sodium 250 - 500 mg 05/18/22 09:00 05/19/22 08:48 Docusate Sodium 250 Mg Capsule PO 250 mg DAILY JIN Administration Enoxaparin Sodium 40 mg 05/15/22 09:00 05/19/22 09:49 Enoxaparin 40 Mg/0.4 Ml Syringe SUBQ 40 mg DAILY JIN Administration Fluticasone Propionate 1 sprays 05/15/22 08:38 05/19/22 13:09 Fluticasone Nasal [place] WILLIE 1 sprays BID PRN Administration Nasal Congestion Levetiracetam 500 mg 05/15/22 21:00 05/19/22 08:48 Levetiracetam 250 Mg Tablet PO 500 mg BID JIN Administration Levothyroxine Sodium 50 mcg 05/16/22 07:00 05/19/22 05:47 Levothyroxine 25 Mcg Tablet PO 50 mcg QDAC JIN Administration Losartan Potassium 12.5 mg 05/15/22 09:00 05/19/22 08:48 Losartan 50 Mg Tablet PO 12.5 mg DAILY JIN Administration Nystatin 1 applic 05/15/22 21:00 05/19/22 13:13 Nystatin Powder 15 Gm TOP Not Given BID JIN Oxycodone HCl 5 mg 05/14/22 15:41 05/19/22 19:14 Oxycodone 5 Mg Tablet PO 5 mg Q4HR PRN Administration Pain 5 to 7 Pantoprazole Sodium 40 mg 05/18/22 21:00 05/19/22 08:49 Pantoprazole 40 Mg Tablet PO 40 mg BID JIN Administration Polyethylene Glycol 17 gm 05/17/22 12:00 05/19/22 08:47 Polyethylene Glycol 3350 17 Gm Packet PO 17 gm DAILY JIN Administration Senna 8.6 - 17.2 mg 05/18/22 09:00 05/19/22 08:48 Senna 8.6 Mg Tablet PO 8.6 mg DAILY JIN Administration Sodium Chloride 10 ml 05/14/22 17:00 05/19/22 17:06 Sodium Chloride Flush 0.9% 10 Ml Syringe IVP 10 ml 0100,0900,1700 JIN Administration - Lab Result Fish Bone Diagrams: 05/15/22 04:15 05/18/22 04:47 - Additional Planning My Orders: My Active Orders 05/18/22 21:[address] [Voltaren] 75 mg PO BID Pantoprazole [Protonix] 40 mg PO BID Subjective - Subjective Patient Reports: Resting Comfortably Objective Vital Signs: Vital Signs - 24 hr 05/19/22 05/19/22 05/19/22 00:39 06:02 08:40 Temperature 36.3 C L 36.3 C L 36.2 C L Heart Rate [ 61 70 62 Brachial] Respiratory 16 16 18 Rate Blood Pressure 122/66 141/67 H 129/67 [Right Brachial artery] O2 Saturation 98 96 97 05/19/22 15:43 Temperature 36.7 C Heart Rate [ 68 Brachial] Respiratory 18 Rate Blood Pressure 116/59 L [Right Brachial artery] O2 Saturation 91 L Oxygen O2 Source [With Activity] Room air O2 Source [Without Activity] Room air O2 Source Room air I&O (Last 24 Hrs): Intake and Output Totals x24h 05/17/22 05/18/22 05/19/22 23:59 23:59 23:59 Intake Total 2326.667 1330 1750 Output Total 1300 1750 1000 Balance 1026.667 -420 750 General: Alert, No acute distress HEENT: Atraumatic, EOMI, Other (Hoarse voice) Neck: Supple Neuro: Alert, Disoriented, Non Focal Cardiovascular: No murmurs Respiratory: No respiratory distress Abdomen: Soft, Other (Obese) Extremities: No edema, Other (R knee warm and swollen, tender to move it) - Results Results: Laboratory Results WBC 9.9 x10^3/uL (4.8-10.8) 05/15/22 04:15 RBC 3.82 10^6/uL (4.20-5.40) L 05/15/22 04:15 Hgb 10.6 g/dL (12.0-16.0) L 05/15/22 04:15 Hct 35.4 % (37.0-47.0) L 05/15/22 04:15 MCV 92.7 fL (81.0-99.0) 05/15/22 04:15 MCH 27.7 pg (27.0-31.0) 05/15/22 04:15 MCHC 29.9 g/dL (32.0-36.0) L 05/15/22 04:15 RDW 16.3 % (12.0-15.0) H 05/15/22 04:15 Plt Count 316 10^3/uL (130-450) 05/15/22 04:15 MPV 11.0 fL (7.9-10.8) H 05/15/22 04:15 Neut # (Auto) 5.5 10^3/uL (1.5-6.6) 05/15/22 04:15 Lymph # (Auto) 3.1 10^3/uL (1.5-3.5) 05/15/22 04:15 [place] # (Auto) 1.1 10^3/uL (0.0-1.0) H 05/15/22 04:15 Eos # (Auto) 0.0 10^3/uL (0.0-0.7) 05/15/22 04:15 Baso # (Auto) 0.1 10^3/uL (0.0-0.1) 05/15/22 04:15 Absolute Nucleated RBC 0.00 x10^3/uL 05/15/22 04:15 Nucleated RBC % 0.0 /100WBC 05/15/22 04:15 Sodium 139 mmol/L (135-145) 05/18/22 04:47 Potassium 4.7 mmol/L (3.5-5.0) 05/18/22 04:47 Chloride 109 mmol/L (101-111) 05/18/22 04:47 Carbon Dioxide 21 mmol/L (21-32) 05/18/22 04:47 Anion Gap 9.0 (6-13) 05/18/22 04:47 BUN 16 mg/dL (6-20) 05/18/22 04:47 Creatinine 0.8 mg/dL (0.4-1.0) 05/18/22 04:47 Estimated GFR (MDRD) 72 (>89) L 05/18/22 04:47 Glucose 90 mg/dL (70-100) 05/18/22 04:47 Lactic Acid 1.6 mmol/L (0.5-2.2) 05/14/22 11:58 Calcium 9.0 mg/dL (8.5-10.3) 05/18/22 04:47 Total Bilirubin 0.9 mg/dL (0.2-1.0) 05/14/22 11:58 AST 73 IU/L (10-42) H 05/14/22 11:58 ALT 28 IU/L (10-60) 05/14/22 11:58 Alkaline Phosphatase 120 IU/L (42-121) 05/14/22 11:58 Ammonia 12.4 umol/L (7-35) 05/14/22 11:58 Total Creatine Kinase 742 IU/L (22-269) H 05/18/22 04:47 C-Reactive Protein 11.3 mg/dL (0-1.0) H 05/15/22 04:15 B-Natriuretic Peptide 468 pg/mL (5-100) H 05/14/22 11:58 Total Protein 8.3 g/dL (6.7-8.2) H 05/14/22 11:58 Albumin 4.0 g/dL (3.2-5.5) 05/14/22 11:58 Globulin 4.3 g/dL (2.1-4.2) H 05/14/22 11:58 Albumin/Globulin Ratio 0.9 (1.0-2.2) L 05/14/22 11:58 Lipase 31 U/L (22-51) 05/14/22 11:58 TSH 7.51 uIU/mL (0.34-5.60) H 05/16/22 05:03 Urine Color YELLOW 05/14/22 12:40 Urine Clarity HAZY (CLEAR) 05/14/22 12:40 Urine pH 6.0 PH (5.0-7.5) 05/14/22 12:40 Ur Specific [place] 1.025 (1.002-1.030) 05/14/22 12:40 Urine Protein 30 mg/dL (NEGATIVE) H 05/14/22 12:40 Urine Glucose (UA) NEGATIVE mg/dL (NEGATIVE) 05/14/22 12:40 Urine Ketones TRACE mg/dL (NEGATIVE) 05/14/22 12:40 Urine Occult Blood LARGE (NEGATIVE) H 05/14/22 12:40 Urine Nitrite NEGATIVE (NEGATIVE) 05/14/22 12:40 Urine Bilirubin NEGATIVE (NEGATIVE) 05/14/22 12:40 Urine Urobilinogen 0.2 (NORMAL) E.U./dL (NORMAL) 05/14/22 12:40 Ur Leukocyte Esterase NEGATIVE (NEGATIVE) 05/14/22 12:40 Urine RBC 6-10 /HPF (0-5) H 05/14/22 12:40 Urine WBC 0-3 /HPF (0-5) 05/14/22 12:40 Ur Squamous Epith Cells MOD Squamous (<= Few) H 05/14/22 12:40 Urine Bacteria Few /HPF (None Seen) 05/14/22 12:40 Urine Casts 0-2 Fine Granular /LPF0-2 Hyaline Casts /LPF 05/14/22 12:40 Urine Casts 0-2 Fine Granular /LPF0-2 Hyaline Casts /LPF 05/14/22 12:40 Ur Microscopic Review INDICATED 05/14/22 12:40 Urine Culture Comments NOT INDICATED 05/14/22 12:40 Urine Opiates Screen NEGATIVE (NEGATIVE) 05/14/22 12:40 Ur Oxycodone Screen POSITIVE (NEGATIVE) H 05/14/22 12:40 Urine Methadone Screen NEGATIVE (NEGATIVE) 05/14/22 12:40 Ur Propoxyphene Screen NEGATIVE (NEGATIVE) 05/14/22 12:40 Ur Barbiturates Screen NEGATIVE (NEGATIVE) 05/14/22 12:40 Ur Tricyclics Screen NEGATIVE (NEGATIVE) 05/14/22 12:40 Ur Phencyclidine Scrn NEGATIVE (NEGATIVE) 05/14/22 12:40 Ur Amphetamine Screen NEGATIVE (NEGATIVE) 05/14/22 12:40 U Methamphetamines Scrn NEGATIVE (NEGATIVE) 05/14/22 12:40 U Benzodiazepines Scrn NEGATIVE (NEGATIVE) 05/14/22 12:40 Urine Cocaine Screen NEGATIVE (NEGATIVE) 05/14/22 12:40 U Cannabinoids Screen NEGATIVE (NEGATIVE) 05/14/22 12:40 Ethyl Alcohol < 5.0 mg/dL 05/14/22 11:58 MAC Interpretation Comment (.) 05/15/22 09:04 Anti-sm/[employer] Abs <0.2 AI (0.0-0.9) 05/15/22 09:04 RAFAELA-1 Antibody <0.2 AI (0.0-0.9) 05/15/22 09:04 SS-A/Ro Antibody <0.2 AI (0.0-0.9) 05/15/22 09:04 SS-B/La Antibody 0.4 AI (0.0-0.9) 05/15/22 09:04 Sm (Triana) Antibody <0.2 AI (0.0-0.9) 05/15/22 09:04 [employer] Antibody 0.5 AI (0.0-0.9) 05/15/22 09:04 Scl-70 Scleroderma Ab <0.2 AI (0.0-0.9) 05/15/22 09:04 Double Strand DNA Ab <1 IU/mL (0-9) 05/15/22 09:04 Ribosomal P Prot Ab <0.2 AI (0.0-0.9) 05/15/22 09:04 Chromatin Antibody <0.2 AI (0.0-0.9) 05/15/22 09:04 Centromere B Antibody <0.2 AI (0.0-0.9) 05/15/22 09:04 SARS-CoV-2 (PCR) NOT DETECTED 05/14/22 13:40 - Procedures Procedures: Procedures INSERTION OF INFUSION DEV INTO SUP VENA CAVA, PERC APPROACH (12/10/21)
[2022-05-20] MEDS: SODIUM CHLORIDE FLUSH 0.9% 10 ML SYRINGE IVP SCH ×3 (05:41→16:37)
[2022-05-20] MEDS: LEVOTHYROXINE 25 MCG TABLET PO SCH (05:51)
[2022-05-20] MEDS: ACETAMINOPHEN 325 MG TABLET PO PRN ×2 (05:51→15:35)
[2022-05-20] MEDS: ENOXAPARIN 40 MG/0.4 ML SYRINGE SUBQ SCH (08:40)
[2022-05-20] MEDS: polyethylene glycoL 3350 17 GM PACKET PO SCH (08:40)
[2022-05-20] MEDS: levETIRAcetam 250 MG TABLET PO SCH ×2 (08:40→20:13)
[2022-05-20] MEDS: PANTOPRAZOLE 40 MG TABLET PO SCH ×2 (08:40→20:13)
[2022-05-20] MEDS: oxyCODONE 5 MG TABLET PO PRN ×2 (08:40→15:35)
[2022-05-20] MEDS: BACLOFEN 10 MG TABLET PO SCH ×2 (08:40→20:13)
[2022-05-20] MEDS: DOCUSATE SODIUM 250 MG CAPSULE PO SCH (08:41)
[2022-05-20] MEDS: SENNA 8.6 MG TABLET PO SCH (08:41)
[2022-05-20] MEDS: carvediloL 3.125 MG TABLET PO SCH ×2 (08:41→20:13)
[2022-05-20] MEDS: ASPIRIN EC 81 MG TABLET PO SCH (08:41)
[2022-05-20] MEDS: DICLOFENAC SODIUM DR 75 MG TABLET PO SCH ×2 (08:41→20:13)
[2022-05-20] MEDS: LOSARTAN 50 MG TABLET PO SCH (08:41)
[2022-05-20] MEDS: NYSTATIN POWDER 15 GM TOP SCH ×2 (13:22→20:13)
--- NOTE | 2022-05-20 15:30 | PROVIDER PROGRESS NOTE ---
Assessment/Plan - Problem List (1) Swelling of knee joint, right Assessment/Plan: She cannot remember how she fell at home before this current ER presentation. When PT started working with her they noticed that she is only toe touching on the right side, cannot bear weight because her right knee hurts. The right knee has swelling and warmth but no redness. It is hard for her to straighten the R leg or to bend it excessively. At admission there were x-rays done of the right foot, left wrist and LS-spine but not the right knee We obtained x-rays of R knee>> many abnormalities seen Plan: Will request Ortho consult, but we have no Ortho service available until 05/21 (tomorrow) Will continue with NSAIDs scheduled not prn, for pain control, as it has the appearance of inflammatory arthritis, or gout (2) Frequent falls Conclusion/Plan: Per pt's story she slipped and fell on some milk. Has a history of frequent falls, reported back pain, ankle pain. History of back and ankle surgery. Xrays obtained in ED were negative for fractures. PT noticed that she was only toe touching on the right side, cannot bear weight because her right knee hurts. Plan: Orthostatic VS PT/OT to continue to work with her Pain meds prn (3) Rash on torso This has been present for the last several admissions. We thought it was either psoriasis or a fungal rash. Today her RN reports to me that she says the rash is painful. It is not in a dermatomal distribution to suggest Shingles. Plan: We ordered topical treatment and pain medications (4) CAD with Hx of [place] Plan: We have restarted her B-briseida and baby aspirin daily. Will not restart her statin yet due to muscle and joint pain (5) Chronic HFrEF Her EF was 35-40% (by Echo done here in 12/2021) Will have restarted her beta-briseida and ARB Plan: We have not restart her spironolactone yet while she needed IV fluids for rhabdo. Watch for development of volume overload (6) HTN Plan: We are resuming her various meds when appropriate (7) Hypothyroidism She used to be on Synthroid several admissions ago, but it was not listed on her reconciled med list this time. We checked her TSH and it came back elevated, consistent with her not being on Synthroid (probably since it was not copied from med list to med list during her frequent ER visits and hospitalizations). Plan: We have restarted Synthroid (8) Hx of seizures She used to be on Keppra several admissions ago, it was not listed on her reconciled med list. She has presented repeatedly delirious and obtunded/somnolent. Etiology was felt to be from UTIs, or dehydration, but may also have been post-ictal, if she had untreated seizures Plan: We have restarted her Keppra (9) Hyperlipidemia Plan: We will restart her statin once her muscle and joint pain are better (10) Hx of MS She is not on any particular treatment for this currently. We wonder if her personality and AMS presentations could be related to her multiple sclerosis. (11) Cognitive impairment At the last recent hospitalization 1 week ago, she had a SLUMS test done by OT and she scored 11/30, indicating severely cognitively impaired, however, the staff was not sure if she was actively participating to make that an accurate score. She has had multiple admissions over the past year and advised to not go home to live alone, that she needs to be in as [facility]. She was allowed to return to her home at the last admission 1 week ago, because she wanted that. Then after a few days she has returned with AMS, which is how she repeatedly presents to our ER. In the past 1 month, she has had 5 hospitalizations here due to AMS. Plan: Since this admission, and after meeting with SW, she agreed to go to [facility] placement and [facility] Social Work is working on this location for her after discharge (12) Hypernatremia Conclusion/Plan: Resolved after hypotonic fluids (13) Altered mental status Conclusion/Plan: Resolved She was delirious and obtunded/somnolent. In the past, etiology was felt to be from UTIs, or dehydration, but may also have been post-ictal if she had untreated seizures, or due to her MS. In the past 1 month she has had 5 hospitalizations here due to AMS. Qualifiers: Altered mental status type: disorientation Qualified Code(s): R41.0 - Disorientation, unspecified (14) Hypokalemia Resolved with replacement (15) Rhabdomyolysis Assessment/Plan: Resolved She cannot remember how she fell at home, but layed on her floor for many hrs Her Total CK 4015 at admission. Her Insurance company told our dept to keep her in Observation status, even though she needed more than 48 hours of iv fluids for the rhabdo, and that insurance company said it was not severe enough to admit her to Inpt status, per [place] in our staff. CK slowly dropped to 700 after several days of iv fluids. IV hydration was stopped, as she is taking in good oral fluids We stopped following CK Qualifiers: Rhabdomyolysis type: non-traumatic Qualified Code(s): M62.82 - Rhabdomyolysis - Current Meds Current Meds: Current Medications Generic Name Dose Route Start Last Admin Trade Name Freq PRN Reason Stop Dose Admin Acetaminophen 650 mg 05/14/22 15:41 05/20/22 05:51 Acetaminophen 325 Mg Tablet PO 650 mg Q4HR PRN Administration Pain 1 to 4, or Fever Aspirin 81 mg 05/16/22 09:00 05/20/22 08:41 Aspirin Ec 81 Mg Tablet PO 81 mg DAILY JIN Administration Baclofen 30 mg 05/15/22 21:00 05/20/22 08:40 Baclofen 10 Mg Tablet PO 30 mg BID JIN Administration Carvedilol 3.125 mg 05/15/22 09:00 05/20/22 08:41 Carvedilol 3.125 Mg Tablet PO 3.125 mg BID JIN Administration Diclofenac Sodium 75 mg 05/18/22 21:00 05/20/22 08:[address] 75 Mg Tablet PO 75 mg BID JIN Administration Docusate Sodium 250 - 500 mg 05/18/22 09:00 05/20/22 08:41 Docusate Sodium 250 Mg Capsule PO 250 mg DAILY JIN Administration Enoxaparin Sodium 40 mg 05/15/22 09:00 05/20/22 08:40 Enoxaparin 40 Mg/0.4 Ml Syringe SUBQ 40 mg DAILY JIN Administration Fluticasone Propionate 1 sprays 05/15/22 08:38 05/19/22 13:09 Fluticasone Nasal [place] WILLIE 1 sprays BID PRN Administration Nasal Congestion Levetiracetam 500 mg 05/15/22 21:00 05/20/22 08:40 Levetiracetam 250 Mg Tablet PO 500 mg BID JIN Administration Levothyroxine Sodium 50 mcg 05/16/22 07:00 05/20/22 05:51 Levothyroxine 25 Mcg Tablet PO 50 mcg QDAC JIN Administration Losartan Potassium 12.5 mg 05/15/22 09:00 05/20/22 08:41 Losartan 50 Mg Tablet PO 12.5 mg DAILY JIN Administration Nystatin 1 applic 05/15/22 21:00 05/20/22 13:22 Nystatin Powder 15 Gm TOP Not Given BID JIN Oxycodone HCl 5 mg 05/14/22 15:41 05/20/22 08:40 Oxycodone 5 Mg Tablet PO 5 mg Q4HR PRN Administration Pain 5 to 7 Pantoprazole Sodium 40 mg 05/18/22 21:00 05/20/22 08:40 Pantoprazole 40 Mg Tablet PO 40 mg BID JIN Administration Polyethylene Glycol 17 gm 05/17/22 12:00 05/20/22 08:40 Polyethylene Glycol 3350 17 Gm Packet PO 17 gm DAILY JIN Administration Senna 8.6 - 17.2 mg 05/18/22 09:00 05/20/22 08:41 Senna 8.6 Mg Tablet PO 8.6 mg DAILY JIN Administration Sodium Chloride 10 ml 05/14/22 17:00 05/20/22 10:43 Sodium Chloride Flush 0.9% 10 Ml Syringe IVP Not Given 0100,0900,1700 JIN - Lab Result Fish Bone Diagrams: 05/15/22 04:15 05/18/22 04:47 Subjective - Subjective Patient Reports: Resting Comfortably Objective Vital Signs: Vital Signs - 24 hr 05/19/22 05/20/22 05/20/22 15:43 01:02 08:54 Temperature 36.7 C 36.5 C 36.5 C Heart Rate [ 68 70 70 Brachial] Respiratory 18 16 18 Rate Blood Pressure 116/59 L 127/71 137/79 H [Right Brachial artery] O2 Saturation 91 L 95 95 Oxygen O2 Source [With Activity] Room air O2 Source [Without Activity] Room air O2 Source Room air I&O (Last 24 Hrs): Intake and Output Totals x24h 05/18/22 05/19/22 05/20/22 23:59 23:59 23:59 Intake Total 1330 1750 820 Output Total 1750 1100 1500 Balance -420 650 -680 General: Alert, No acute distress HEENT: Atraumatic, Mucous membr. moist/pink, Other (edentulous) Neck: Supple Neuro: Alert, Disoriented, Non Focal Cardiovascular: Regular rate Respiratory: No respiratory distress Abdomen: Soft Extremities: Other (R knee swollen and tender, not red or warm) - Results Results: Laboratory Results WBC 9.9 x10^3/uL (4.8-10.8) 05/15/22 04:15 RBC 3.82 10^6/uL (4.20-5.40) L 05/15/22 04:15 Hgb 10.6 g/dL (12.0-16.0) L 05/15/22 04:15 Hct 35.4 % (37.0-47.0) L 05/15/22 04:15 MCV 92.7 fL (81.0-99.0) 05/15/22 04:15 MCH 27.7 pg (27.0-31.0) 05/15/22 04:15 MCHC 29.9 g/dL (32.0-36.0) L 05/15/22 04:15 RDW 16.3 % (12.0-15.0) H 05/15/22 04:15 Plt Count 316 10^3/uL (130-450) 05/15/22 04:15 MPV 11.0 fL (7.9-10.8) H 05/15/22 04:15 Neut # (Auto) 5.5 10^3/uL (1.5-6.6) 05/15/22 04:15 Lymph # (Auto) 3.1 10^3/uL (1.5-3.5) 05/15/22 04:15 Webb # (Auto) 1.1 10^3/uL (0.0-1.0) H 05/15/22 04:15 Eos # (Auto) 0.0 10^3/uL (0.0-0.7) 05/15/22 04:15 Baso # (Auto) 0.1 10^3/uL (0.0-0.1) 05/15/22 04:15 Absolute Nucleated RBC 0.00 x10^3/uL 05/15/22 04:15 Nucleated RBC % 0.0 /100WBC 05/15/22 04:15 Sodium 139 mmol/L (135-145) 05/18/22 04:47 Potassium 4.7 mmol/L (3.5-5.0) 05/18/22 04:47 Chloride 109 mmol/L (101-111) 05/18/22 04:47 Carbon Dioxide 21 mmol/L (21-32) 05/18/22 04:47 Anion Gap 9.0 (6-13) 05/18/22 04:47 BUN 16 mg/dL (6-20) 05/18/22 04:47 Creatinine 0.8 mg/dL (0.4-1.0) 05/18/22 04:47 Estimated GFR (MDRD) 72 (>89) L 05/18/22 04:47 Glucose 90 mg/dL (70-100) 05/18/22 04:47 Lactic Acid 1.6 mmol/L (0.5-2.2) 05/14/22 11:58 Calcium 9.0 mg/dL (8.5-10.3) 05/18/22 04:47 Total Bilirubin 0.9 mg/dL (0.2-1.0) 05/14/22 11:58 AST 73 IU/L (10-42) H 05/14/22 11:58 ALT 28 IU/L (10-60) 05/14/22 11:58 Alkaline Phosphatase 120 IU/L (42-121) 05/14/22 11:58 Ammonia 12.4 umol/L (7-35) 05/14/22 11:58 Total Creatine Kinase 742 IU/L (22-269) H 05/18/22 04:47 C-Reactive Protein 11.3 mg/dL (0-1.0) H 05/15/22 04:15 B-Natriuretic Peptide 468 pg/mL (5-100) H 05/14/22 11:58 Total Protein 8.3 g/dL (6.7-8.2) H 05/14/22 11:58 Albumin 4.0 g/dL (3.2-5.5) 05/14/22 11:58 Globulin 4.3 g/dL (2.1-4.2) H 05/14/22 11:58 Albumin/Globulin Ratio 0.9 (1.0-2.2) L 05/14/22 11:58 Lipase 31 U/L (22-51) 05/14/22 11:58 TSH 7.51 uIU/mL (0.34-5.60) H 05/16/22 05:03 Urine Color YELLOW 05/14/22 12:40 Urine Clarity HAZY (CLEAR) 05/14/22 12:40 Urine pH 6.0 PH (5.0-7.5) 05/14/22 12:40 Ur Specific [place] 1.025 (1.002-1.030) 05/14/22 12:40 Urine Protein 30 mg/dL (NEGATIVE) H 05/14/22 12:40 Urine Glucose (UA) NEGATIVE mg/dL (NEGATIVE) 05/14/22 12:40 Urine Ketones TRACE mg/dL (NEGATIVE) 05/14/22 12:40 Urine Occult Blood LARGE (NEGATIVE) H 05/14/22 12:40 Urine Nitrite NEGATIVE (NEGATIVE) 05/14/22 12:40 Urine Bilirubin NEGATIVE (NEGATIVE) 05/14/22 12:40 Urine Urobilinogen 0.2 (NORMAL) E.U./dL (NORMAL) 05/14/22 12:40 Ur Leukocyte Esterase NEGATIVE (NEGATIVE) 05/14/22 12:40 Urine RBC 6-10 /HPF (0-5) H 05/14/22 12:40 Urine WBC 0-3 /HPF (0-5) 05/14/22 12:40 Ur Squamous Epith Cells MOD Squamous (<= Few) H 05/14/22 12:40 Urine Bacteria Few /HPF (None Seen) 05/14/22 12:40 Urine Casts 0-2 Fine Granular /LPF0-2 Hyaline Casts /LPF 05/14/22 12:40 Urine Casts 0-2 Fine Granular /LPF0-2 Hyaline Casts /LPF 05/14/22 12:40 Ur Microscopic Review INDICATED 05/14/22 12:40 Urine Culture Comments NOT INDICATED 05/14/22 12:40 Urine Opiates Screen NEGATIVE (NEGATIVE) 05/14/22 12:40 Ur Oxycodone Screen POSITIVE (NEGATIVE) H 05/14/22 12:40 Urine Methadone Screen NEGATIVE (NEGATIVE) 05/14/22 12:40 Ur Propoxyphene Screen NEGATIVE (NEGATIVE) 05/14/22 12:40 Ur Barbiturates Screen NEGATIVE (NEGATIVE) 05/14/22 12:40 Ur Tricyclics Screen NEGATIVE (NEGATIVE) 05/14/22 12:40 Ur Phencyclidine Scrn NEGATIVE (NEGATIVE) 05/14/22 12:40 Ur Amphetamine Screen NEGATIVE (NEGATIVE) 05/14/22 12:40 U Methamphetamines Scrn NEGATIVE (NEGATIVE) 05/14/22 12:40 U Benzodiazepines Scrn NEGATIVE (NEGATIVE) 05/14/22 12:40 Urine Cocaine Screen NEGATIVE (NEGATIVE) 05/14/22 12:40 U Cannabinoids Screen NEGATIVE (NEGATIVE) 05/14/22 12:40 Ethyl Alcohol < 5.0 mg/dL 05/14/22 11:58 MAC Interpretation Comment (.) 05/15/22 09:04 Anti-sm/[employer] Abs <0.2 AI (0.0-0.9) 05/15/22 09:04 RAFAELA-1 Antibody <0.2 AI (0.0-0.9) 05/15/22 09:04 SS-A/Ro Antibody <0.2 AI (0.0-0.9) 05/15/22 09:04 SS-B/La Antibody 0.4 AI (0.0-0.9) 05/15/22 09:04 Sm (Triana) Antibody <0.2 AI (0.0-0.9) 05/15/22 09:04 SKINNING MACH[employer]EDER Antibody 0.5 AI (0.0-0.9) 05/15/22 09:04 Scl-70 Scleroderma Ab <0.2 AI (0.0-0.9) 05/15/22 09:04 Double Strand DNA Ab <1 IU/mL (0-9) 05/15/22 09:04 Ribosomal P Prot Ab <0.2 AI (0.0-0.9) 05/15/22 09:04 Chromatin Antibody <0.2 AI (0.0-0.9) 05/15/22 09:04 Centromere B Antibody <0.2 AI (0.0-0.9) 05/15/22 09:04 SARS-CoV-2 (PCR) NOT DETECTED 05/14/22 13:40 - Procedures Procedures: Procedures INSERTION OF INFUSION DEV INTO SUP VENA CAVA, PERC APPROACH (12/10/21)
[2022-05-21] MEDS: oxyCODONE 5 MG TABLET PO PRN ×4 (00:10→23:38)
[2022-05-21] MEDS: ACETAMINOPHEN 325 MG TABLET PO PRN ×3 (00:10→23:38)
[2022-05-21] MEDS: LEVOTHYROXINE 25 MCG TABLET PO SCH (06:42)
[2022-05-21] MEDS: polyethylene glycoL 3350 17 GM PACKET PO SCH (09:42)
[2022-05-21] MEDS: BACLOFEN 10 MG TABLET PO SCH ×2 (09:43→21:07)
[2022-05-21] MEDS: carvediloL 3.125 MG TABLET PO SCH ×2 (09:43→21:07)
[2022-05-21] MEDS: LOSARTAN 50 MG TABLET PO SCH (09:43)
[2022-05-21] MEDS: levETIRAcetam 250 MG TABLET PO SCH ×2 (09:43→21:07)
[2022-05-21] MEDS: DICLOFENAC SODIUM DR 75 MG TABLET PO SCH ×2 (09:43→21:07)
[2022-05-21] MEDS: DOCUSATE SODIUM 250 MG CAPSULE PO SCH (09:45)
[2022-05-21] MEDS: SENNA 8.6 MG TABLET PO SCH (09:45)
[2022-05-21] MEDS: ASPIRIN EC 81 MG TABLET PO SCH (09:45)
[2022-05-21] MEDS: ENOXAPARIN 40 MG/0.4 ML SYRINGE SUBQ SCH (09:46)
[2022-05-21] MEDS: NYSTATIN POWDER 15 GM TOP SCH ×2 (09:47→21:07)
[2022-05-21] MEDS: PANTOPRAZOLE 40 MG TABLET PO SCH ×2 (09:49→21:07)
[2022-05-21] MEDS: CHOLECALCIFEROL 25 MCG TABLET PO SCH (12:08)
--- NOTE | 2022-05-21 14:54 | CONSULTATION NOTE ---
Surgery Consult - Admit Date Hospital Admission Date: 05/14/22 - Consult Date Consult Date: 05/21/22 Requesting Provider: Divina Cesar - Chief Complaint Chief Complaint: Right knee pain - Home Meds/Allergies Home Medications: Patient History Medication Instructions Recorded Confirmed Losartan Potassium 12.5 mg PO DAILY 04/03/22 05/14/22 Fluticasone [Flonase] 1 sprays WILLIE BID PRN 04/20/22 05/14/22 carvediloL [Coreg] 3.125 mg PO BID 04/20/22 05/14/22 Acetaminophen [Acetaminophen Extra 1,000 mg PO TID PRN 04/24/22 05/14/22 Strength] Diclofenac Sodium Dr [Voltaren] 1 tab PO BID PRN 04/24/22 05/14/22 Spironolactone [Aldactone] 12.5 mg PO DAILY 05/09/22 05/14/22 Levetiracetam [Keppra] 500 mg PO BID 05/15/22 05/15/22 Levothyroxine Sodium 50 mcg PO DAILY 05/15/22 05/15/22 Allergies/Adverse Reactions: Allergies Allergy/AdvReac Type Severity Reaction Status Date / Time No Known Drug Allergies Allergy Verified 05/14/22 11:44 - Vital Signs Vital Signs: Last Vital Signs Temp 36.6 C 05/21/22 14:00 Pulse 78 05/21/22 14:00 Resp 18 05/21/22 14:00 BP 90/62 05/21/22 14:00 Pulse Ox 91 L 05/21/22 09:00 O2 Flow Rate Intake & Output: Intake & Output 05/18/22 05/19/22 05/20/22 05/21/22 23:59 23:59 23:59 23:59 Intake Total 1330 1750 2054 360 Output Total 1750 1100 2050 500 Balance -420 650 4 -140 - Lab Results Result Diagrams: 05/15/22 04:15 05/18/22 04:47 - Consultation Note Consultation Note: 66-year-old female who presented to the [facility] emergency department on 05/14/2022 after being found down after a fall by her occupational therapist. She reports laying on the ground overnight after the fall before being found the next morning. She was admitted to the hospital for metabolic encephalopathy, acute kidney injury and frequent falls. CT of the head did not show evidence of bleeding or fracture. Her past medical history includes seizure disorder, coronary artery disease, hypothyroidism, COPD, hypertension, congestive heart failure (EF 35 to 40%) and multiple sclerosis. She was found to be encephalopathic and confused at times during her admission. Orthopedic Surgery was consulted on day 8 of her hospital stay for right knee pain. Evaluation was requested to determine if patient was suffering from gout versus septic arthritis versus acute injury. The patient was seen by myself and Orthopedic surgeon Dr. Garcia. X-rays obtained on 05/18/2022 show no acute fracture or dislocation. No significant effusion. Possible prior traumatic injury to right medial knee. Evidence of medial compartment degenerative joint osteoarthritis. Poor x-ray quality. On exam there is no evidence of effusion, erythema or warmth to the right knee. She is diffusely tender about the right knee about the tibial plateau, medial and lateral joint lines and femoral condyles. She has pain with passive movement of the right knee but cannot localize pain. She refuses to flex or extend her knee on the exam. She shouts out in pain during exam and palpation. Neurovascularly intact to right lower extremity, palpable pulses. She reportedly ambulated on the right lower extremity with a front wheeled walker yesterday. Patient is confused and contradicts herself during our conversation. She appears to be a poor historian. She is pleasant, alert and sitting upright in bed, alone in the room. There is no effusion, warmth or erythema about the right k nee. CBC showed a normal white blood cell count of 9.9. Assessment is low suspicion for septic arthritis given absence of effusion, erythema, warmth, normal white blood cell count and in tact skin to right knee. There is no effusion on exam, no indication for arthrocentesis. She is diffusely tender to palpation on exam and is uncooperative with exam. Given poor quality of x-rays, it is difficult to exclude a fracture after a fall from standing. Given patient's pain, reported toe-touch weightbearing by physical therapy and poor imaging, orthopedic surgery recommends obtaining a CT of the right knee without contrast to evaluate for fracture. It is possible she has a bony contusion of the right knee after her fall. This plan was verbally communicated to hospitalist physician who is in agreement with plan. PLAN: - CT of right knee without contrast to evaluate for fracture - Physical therapy pending CT evaluation - Bracing recommendation pending CT results - Toe touch weight bearing to right lower extremity
[2022-05-21] MEDS ORDERED: HYDROmorphone 1 MG/ML CARPUJECT IVP ONE (15:00)
--- NOTE | 2022-05-21 15:03 | PROVIDER PROGRESS NOTE ---
Assessment/Plan - Problem List (1) Swelling of knee joint, right Assessment/Plan: She cannot remember how she fell at home before this current ER presentation. She needed to be admitted for Rhabdomyolysis, this time. When PT started working with her they noticed that she was only toe touching on the right side, could bear weight because her right knee hurts. The right knee has swelling and warmth but no redness. It is hard for her to straighten the R leg or to bend it excessively. At admission there were x-rays done of the right foot, left wrist and LS-spine but not the right knee. We obtained x-rays of R knee after she was admitted>> many abnormalities seen. Ortho input was awaited, since we had no Ortho service from 05/06/22 thru 05/20/22, until today 05/21/22. Plan: Will request Ortho consult Will continue with NSAIDs scheduled, not just prn, for pain control, as it has the appearance of inflammation. (2) Frequent falls Conclusion/Plan: Per pt's story she slipped and fell on some milk this time. Has a history of frequent falls, prior back pain, ankle pain. History of back and ankle surgery. Xrays obtained in ED were negative for fractures. PT noticed that she was only toe touching on the right leg, could not bear weight because her right knee hurt. Plan: Orthostatic VS ordered PT/OT to continue to work with her when OK with Ortho Pain meds prn (3) Hypothyroidism A high TSH was found on labs. She used to be on Synthroid several admissions ago, but it was initially not listed on her reconciled med list this time. We checked her TSH and it came back elevated, consistent with her not being on Synthroid (probably since it was not copied from med list to med list during her frequent ER visits and hospitalizati ons). Plan: Continue the restarted Synthroid (4) Hx of seizures She used to be on Keppra several admissions ago, it was initially not listed on her reconciled med list. She has presented repeatedly with delirium and obtunded/somnolent. Etiology was felt to be from UTIs, or dehydration, but these episodes may also have been post-ictal, if she had untreated seizures Plan: Continue the restarted her Keppra (5) Hx of MS She is not on any particular treatment for this currently. We wonder if her personality and AMS presentations could be related to her multiple sclerosis. (6) Cognitive impairment At the last recent hospitalization 1 week ago, she had a SLUMS test done by OT and she scored 11/30, indicating severely cognitively impaired, however, the staff was not sure if she was actively participating to make that an accurate score. She has had multiple admissions over the past year and advised to not go home to live alone, an CONCHITA was advised. She was allowed to return to her home at the last admission 1 week previously, because she wanted that. Then after a few days she returned with AMS, which is how she repeatedly presents to our ER. In the past 1 month, she has had 5 hospitalizations here due to AMS. Plan: During this admission, and after meeting with SW, she agreed to go to fpc placement and wants to go to [facility] Social Work is working on this location for her after discharge (7) CAD with Hx of MD Plan: We have restarted her B-briseida and baby aspirin daily. Will not restart her statin yet due to muscle and joint pain (8) Chronic HFrEF Her EF was 35-40% (by Echo done here in 12/2021) We have restarted her beta-briseida and ARB Plan: We have not restart her spironolactone yet while she needed IV fluids for rhabdo. Watch for development of volume overload (9) HTN Plan: We are resuming her various meds when appropriate (10) Hyperlipidemia Plan: We will restart her statin once her muscle and joint pain are better (11) Rash on torso This has been present for the last several admissions. We thought it was either psoriasis or a fungal rash. It is not in a dermatomal distribution to suggest Shingles. Plan: We ordered topical anti-fungal treatment and pain medications (12) Hypernatremia Conclusion/Plan: Resolved after hypotonic fluids (13) Altered mental status Conclusion/Plan: Resolved She was delirious and obtunded/somnolent. In the past, etiology was felt to be from UTIs, or dehydration, but may also have been post-ictal if she had untreated seizures, or due to her MS. In the past 1 month she has had 5 hospitalizations here due to AMS. Qualifiers: Altered mental status type: disorientation Qualified Code(s): R41.0 - Disorientation, unspecified (14) Hypokalemia Resolved with replacement (15) Rhabdomyolysis Assessment/Plan: Resolved. This was the reason for bringing her in from ER this time. She cannot remember how she fell at home, but layed on her floor for many hrs Her Total CK was 4015 at admission. Her Insurance company told our dept to keep her in Observation status, even though she needed more than 48 hours of iv fluids for treating the Rhabdo. But that insurance company said her Rhabdo was not severe enough to admit her to Inpt status, per [place] in our UM staff. CK slowly dropped to 700 after several days of iv fluids. IV hydration was stopped, as she is taking in good oral fluids We stopped following CK Qualifiers: Rhabdomyolysis type: non-traumatic Qualified Code(s): M62.82 - Rhabdomyolysis - Current Meds Current Meds: Current Medications Generic Name Dose Route Start Last Admin Trade Name Freq PRN Reason Stop Dose Admin Acetaminophen 650 mg 05/14/22 15:41 05/21/22 06:42 Acetaminophen 325 Mg Tablet PO 650 mg Q4HR PRN Administration Pain 1 to 4, or Fever Aspirin 81 mg 05/16/22 09:00 05/21/22 09:45 Aspirin Ec 81 Mg Tablet PO 81 mg DAILY JIN Administration Baclofen 30 mg 05/15/22 21:00 05/21/22 09:43 Baclofen 10 Mg Tablet PO 30 mg BID JIN Administration Carvedilol 3.125 mg 05/15/22 09:00 05/21/22 09:43 Carvedilol 3.125 Mg Tablet PO 3.125 mg BID JIN Administration Cholecalciferol 50 mcg 05/21/22 12:00 05/21/22 12:08 Cholecalciferol 25 Mcg Tablet PO 50 mcg DAILY JIN Administration Diclofenac Sodium 75 mg 05/18/22 21:00 05/21/22 09:[address] 75 Mg Tablet PO 75 mg BID JIN Administration Docusate Sodium 250 - 500 mg 05/18/22 09:00 05/21/22 09:45 Docusate Sodium 250 Mg Capsule PO 250 mg DAILY JIN Administration Enoxaparin Sodium 40 mg 05/15/22 09:00 05/21/22 09:46 Enoxaparin 40 Mg/0.4 Ml Syringe SUBQ 40 mg DAILY JIN Administration Fluticasone Propionate 1 sprays 05/15/22 08:38 05/19/22 13:09 Fluticasone Nasal [place] WILLIE 1 sprays BID PRN Administration Nasal Congestion Levetiracetam 500 mg 05/15/22 21:00 05/21/22 09:43 Levetiracetam 250 Mg Tablet PO 500 mg BID JIN Administration Levothyroxine Sodium 50 mcg 05/16/22 07:00 05/21/22 06:42 Levothyroxine 25 Mcg Tablet PO 50 mcg QDAC JIN Administration Losartan Potassium 12.5 mg 05/15/22 09:00 05/21/22 09:43 Losartan 50 Mg Tablet PO 12.5 mg DAILY JIN Administration Nystatin 1 applic 05/15/22 21:00 05/21/22 09:47 Nystatin Powder 15 Gm TOP 1 applic BID JIN Administration Oxycodone HCl 5 mg 05/14/22 15:41 05/21/22 06:42 Oxycodone 5 Mg Tablet PO 5 mg Q4HR PRN Administration Pain 5 to 7 Pantoprazole Sodium 40 mg 05/18/22 21:00 05/21/22 09:49 Pantoprazole 40 Mg Tablet PO 40 mg BID JIN Administration Polyethylene Glycol 17 gm 05/17/22 12:00 05/21/22 09:42 Polyethylene Glycol 3350 17 Gm Packet PO 17 gm DAILY JIN Administration Senna 8.6 - 17.2 mg 05/18/22 09:00 05/21/22 09:45 Senna 8.6 Mg Tablet PO 8.6 mg DAILY JIN Administration - Lab Result Fish Bone Diagrams: 05/15/22 04:15 05/18/22 04:47 - Additional Planning My Orders: My Active Orders 05/21/22 Consult [Orthopedics Consult] [CONS] Routine 05/21/22 12:00 Cholecalciferol [Vitamin D3] 50 mcg PO DAILY 05/21/22 14:48 LOWER EXTREMITY WO - RT [CT] Stat 05/21/22 14:50 Miscellaenous Nursing Order [RC] ONCE 05/21/22 15:00 HYDROmorphone 1MG CARP [Dilaudid 1Mg Carp] 1 mg IVP ONCE ONE Subjective - Subjective Patient Reports: Pain (in R knee with movement) Objective Vital Signs: Vital Signs - 24 hr 05/20/22 05/21/22 05/21/22 15:54 00:02 09:00 Temperature 36.4 C L 36.3 C L 35.9 C L Heart Rate [ 69 79 56 L Brachial] Respiratory 16 16 20 Rate Blood Pressure 108/65 110/57 L 100/50 L [Right Brachial artery] O2 Saturation 92 92 91 L 05/21/22 14:00 Temperature 36.6 C Heart Rate [ 78 Brachial] Respiratory 18 Rate Blood Pressure 90/62 [Right Brachial artery] O2 Saturation Oxygen O2 Source [With Activity] Room air O2 Source [Without Activity] Room air O2 Source Room air I&O (Last 24 Hrs): Intake and Output Totals x24h 05/19/22 05/20/22 05/21/22 23:59 23:59 23:59 Intake Total 1750 4 360 Output Total 1100 2049 500 Balance 650 4 -140 General: Alert, Mild distress HEENT: Mucous membr. moist/pink, Other (edentulous) Neck: Supple Neuro: Alert, Disoriented, Non Focal, Other (When she communicates, she normally yells) Cardiovascular: No murmurs Respiratory: No respiratory distress Abdomen: Normal bowel sounds, Soft, Other (obese) Extremities: No edema (trace preetibial edema, rash of posterior thighs and buttocks) - Results Results: Laboratory Results WBC 9.9 x10^3/uL (4.8-10.8) 05/15/22 04:15 RBC 3.82 10^6/uL (4.20-5.40) L 05/15/22 04:15 Hgb 10.6 g/dL (12.0-16.0) L 05/15/22 04:15 Hct 35.4 % (37.0-47.0) L 05/15/22 04:15 MCV 92.7 fL (81.0-99.0) 05/15/22 04:15 MCH 27.7 pg (27.0-31.0) 05/15/22 04:15 MCHC 29.9 g/dL (32.0-36.0) L 05/15/22 04:15 RDW 16.3 % (12.0-15.0) H 05/15/22 04:15 Plt Count 316 10^3/uL (130-450) 05/15/22 04:15 MPV 11.0 fL (7.9-10.8) H 05/15/22 04:15 Neut # (Auto) 5.5 10^3/uL (1.5-6.6) 05/15/22 04:15 Lymph # (Auto) 3.1 10^3/uL (1.5-3.5) 05/15/22 04:15 [place] # (Auto) 1.1 10^3/uL (0.0-1.0) H 05/15/22 04:15 Eos # (Auto) 0.0 10^3/uL (0.0-0.7) 05/15/22 04:15 Baso # (Auto) 0.1 10^3/uL (0.0-0.1) 05/15/22 04:15 Absolute Nucleated RBC 0.00 x10^3/uL 05/15/22 04:15 Nucleated RBC % 0.0 /100WBC 05/15/22 04:15 Sodium 139 mmol/L (135-145) 05/18/22 04:47 Potassium 4.7 mmol/L (3.5-5.0) 05/18/22 04:47 Chloride 109 mmol/L (101-111) 05/18/22 04:47 Carbon Dioxide 21 mmol/L (21-32) 05/18/22 04:47 Anion Gap 9.0 (6-13) 05/18/22 04:47 BUN 16 mg/dL (6-20) 05/18/22 04:47 Creatinine 0.8 mg/dL (0.4-1.0) 05/18/22 04:47 Estimated GFR (MDRD) 72 (>89) L 05/18/22 04:47 Glucose 90 mg/dL (70-100) 05/18/22 04:47 Lactic Acid 1.6 mmol/L (0.5-2.2) 05/14/22 11:58 Calcium 9.0 mg/dL (8.5-10.3) 05/18/22 04:47 Total Bilirubin 0.9 mg/dL (0.2-1.0) 05/14/22 11:58 AST 73 IU/L (10-42) H 05/14/22 11:58 ALT 28 IU/L (10-60) 05/14/22 11:58 Alkaline Phosphatase 120 IU/L (42-121) 05/14/22 11:58 Ammonia 12.4 umol/L (7-35) 05/14/22 11:58 Total Creatine Kinase 742 IU/L (22-269) H 05/18/22 04:47 C-Reactive Protein 11.3 mg/dL (0-1.0) H 05/15/22 04:15 B-Natriuretic Peptide 468 pg/mL (5-100) H 05/14/22 11:58 Total Protein 8.3 g/dL (6.7-8.2) H 05/14/22 11:58 Albumin 4.0 g/dL (3.2-5.5) 05/14/22 11:58 Globulin 4.3 g/dL (2.1-4.2) H 05/14/22 11:58 Albumin/Globulin Ratio 0.9 (1.0-2.2) L 05/14/22 11:58 Lipase 31 U/L (22-51) 05/14/22 11:58 TSH 7.51 uIU/mL (0.34-5.60) H 05/16/22 05:03 Urine Color YELLOW 05/14/22 12:40 Urine Clarity HAZY (CLEAR) 05/14/22 12:40 Urine pH 6.0 PH (5.0-7.5) 05/14/22 12:40 Ur Specific [place] 1.025 (1.002-1.030) 05/14/22 12:40 Urine Protein 30 mg/dL (NEGATIVE) H 05/14/22 12:40 Urine Glucose (UA) NEGATIVE mg/dL (NEGATIVE) 05/14/22 12:40 Urine Ketones TRACE mg/dL (NEGATIVE) 05/14/22 12:40 Urine Occult Blood LARGE (NEGATIVE) H 05/14/22 12:40 Urine Nitrite NEGATIVE (NEGATIVE) 05/14/22 12:40 Urine Bilirubin NEGATIVE (NEGATIVE) 05/14/22 12:40 Urine Urobilinogen 0.2 (NORMAL) E.U./dL (NORMAL) 05/14/22 12:40 Ur Leukocyte Esterase NEGATIVE (NEGATIVE) 05/14/22 12:40 Urine RBC 6-10 /HPF (0-5) H 05/14/22 12:40 Urine WBC 0-3 /HPF (0-5) 05/14/22 12:40 Ur Squamous Epith Cells MOD Squamous (<= Few) H 05/14/22 12:40 Urine Bacteria Few /HPF (None Seen) 05/14/22 12:40 Urine Casts 0-2 Fine Granular /LPF0-2 Hyaline Casts /LPF 05/14/22 12:40 Urine Casts 0-2 Fine Granular /LPF0-2 Hyaline Casts /LPF 05/14/22 12:40 Ur Microscopic Review INDICATED 05/14/22 12:40 Urine Culture Comments NOT INDICATED 05/14/22 12:40 Urine Opiates Screen NEGATIVE (NEGATIVE) 05/14/22 12:40 Ur Oxycodone Screen POSITIVE (NEGATIVE) H 05/14/22 12:40 Urine Methadone Screen NEGATIVE (NEGATIVE) 05/14/22 12:40 Ur Propoxyphene Screen NEGATIVE (NEGATIVE) 05/14/22 12:40 Ur Barbiturates Screen NEGATIVE (NEGATIVE) 05/14/22 12:40 Ur Tricyclics Screen NEGATIVE (NEGATIVE) 05/14/22 12:40 Ur Phencyclidine Scrn NEGATIVE (NEGATIVE) 05/14/22 12:40 Ur Amphetamine Screen NEGATIVE (NEGATIVE) 05/14/22 12:40 U Methamphetamines Scrn NEGATIVE (NEGATIVE) 05/14/22 12:40 U Benzodiazepines Scrn NEGATIVE (NEGATIVE) 05/14/22 12:40 Urine Cocaine Screen NEGATIVE (NEGATIVE) 05/14/22 12:40 U Cannabinoids Screen NEGATIVE (NEGATIVE) 05/14/22 12:40 Ethyl Alcohol < 5.0 mg/dL 05/14/22 11:58 MAC Interpretation Comment (.) 05/15/22 09:04 Anti-sm/CLINICAL DOCUMENTATION MANAGER Abs <0.2 AI (0.0-0.9) 05/15/22 09:04 RAFAELA-1 Antibody <0.2 AI (0.0-0.9) 05/15/22 09:04 SS-A/Ro Antibody <0.2 AI (0.0-0.9) 05/15/22 09:04 SS-B/La Antibody 0.4 AI (0.0-0.9) 05/15/22 09:04 Sm (Triana) Antibody <0.2 AI (0.0-0.9) 05/15/22 09:04 CLINICAL DOCUMENTATION MANAGER Antibody 0.5 AI (0.0-0.9) 05/15/22 09:04 Scl-70 Scleroderma Ab <0.2 AI (0.0-0.9) 05/15/22 09:04 Double Strand DNA Ab <1 IU/mL (0-9) 05/15/22 09:04 Ribosomal P Prot Ab <0.2 AI (0.0-0.9) 05/15/22 09:04 Chromatin Antibody <0.2 AI (0.0-0.9) 05/15/22 09:04 Centromere B Antibody <0.2 AI (0.0-0.9) 05/15/22 09:04 SARS-CoV-2 (PCR) NOT DETECTED 05/14/22 13:40 - Procedures Procedures: Procedures INSERTION OF INFUSION DEV INTO SUP VENA CAVA, PERC APPROACH (12/10/21)
[2022-05-21] MEDS ORDERED: HYDROmorphone 2 MG TABLET PO ONE (15:15)
--- NOTE | 2022-05-21 16:08 | CT Report ---
PROCEDURE: LOWER EXTREMITY WO - RT INDICATIONS: R knee pain and swelling, had a fall at home TECHNIQUE: Noncontrast 3-mm axial sections acquired from the distal tibial shaft to the talar dome, with coronal and sagittal reformats. For radiation dose reduction, the following was used: automated exposure c ontrol, adjustment of mA and/or kV according to patient size. COMPARISON: 2 view right knee dated 05/18/2022. FINDINGS: Image quality: Excellent. Bones: The bones are osteopenic. There is a impacted, comminuted diametaphyseal fracture involving t he medial distal femoral cortex with angulation. There is associated horizontal metaphyseal component with minimal posterior displacement of the major distal fragment. Soft tissues: Question ACL tear from its femoral attachment. There is suggestion of internal derangem ent with widening of the anterior space between the lateral femoral condyle and lateral tibial platea u. Impression: 1. Comminuted distal femoral fracture involving the diametaphyseal region and metaphyseal region. 2. Underlying diffuse osteopenia. 3. Suggestion of probable ACL tear/internal derangement of the knee. Comment: MRI of the knee may be helpful on a nonemergent basis. Reviewed by: Dirk Miranda MD on 05/21/2022 4:06 PM PST Approved by: Dirk Miranda MD on 05/21/2022 4:06 PM PST Station ID: [id number]
[2022-05-21] MEDS ORDERED: MINERAL OIL/PETROLAT OPHTH OINT EACHEYE PRN (16:55)
[2022-05-21] MEDS: CARBOXYMETHYLCELLULOSE OPHTH DROPS EACHEYE PRN ×2 (18:17→19:07)
[2022-05-22] MEDS: ACETAMINOPHEN 325 MG TABLET PO PRN ×4 (05:41→21:57)
[2022-05-22] MEDS: oxyCODONE 5 MG TABLET PO PRN ×4 (05:41→21:57)
[2022-05-22] MEDS: LEVOTHYROXINE 25 MCG TABLET PO SCH (05:41)
[2022-05-22] MEDS: PANTOPRAZOLE 40 MG TABLET PO SCH ×2 (09:35→21:24)
[2022-05-22] MEDS: LOSARTAN 50 MG TABLET PO SCH (09:36)
[2022-05-22] MEDS: SENNA 8.6 MG TABLET PO SCH (09:37)
[2022-05-22] MEDS: DOCUSATE SODIUM 250 MG CAPSULE PO SCH (09:37)
[2022-05-22] MEDS: DICLOFENAC SODIUM DR 75 MG TABLET PO SCH ×2 (09:38→21:24)
[2022-05-22] MEDS: carvediloL 3.125 MG TABLET PO SCH ×2 (09:38→21:24)
[2022-05-22] MEDS: ASPIRIN EC 81 MG TABLET PO SCH (09:38)
[2022-05-22] MEDS: CHOLECALCIFEROL 25 MCG TABLET PO SCH (09:39)
[2022-05-22] MEDS: levETIRAcetam 250 MG TABLET PO SCH ×2 (09:39→21:24)
[2022-05-22] MEDS: BACLOFEN 10 MG TABLET PO SCH ×2 (09:39→21:24)
[2022-05-22] MEDS: ENOXAPARIN 40 MG/0.4 ML SYRINGE SUBQ SCH (09:40)
[2022-05-22] MEDS: polyethylene glycoL 3350 17 GM PACKET PO SCH (09:41)
[2022-05-22] MEDS: NYSTATIN POWDER 15 GM TOP SCH ×2 (09:42→21:24)
--- NOTE | 2022-05-22 11:25 | PROVIDER PROGRESS NOTE ---
Subjective - Prog Note Date Prog Note Date: 05/22/22 Prog Note Time: 11:25 - Subjective Subjective: Encountered the patient in her room in bed...... Current Medications - Current Medications Current Medications: Acetaminophen (Acetaminophen 325 Mg Tablet) 650 mg PO Q4HR PRN PRN Reason: Pain 1 to 4, or Fever Last Admin: 05/22/22 05:41 Dose: 650 mg Aspirin (Aspirin Ec 81 Mg Tablet) 81 mg PO DAILY [facility] Last Admin: 05/22/22 09:38 Dose: 81 mg Baclofen (Baclofen 10 Mg Tablet) 30 mg PO BID [facility] Last Admin: 05/22/22 09:39 Dose: 30 mg Carboxymethylcellulose (Carboxymethylcellulose Ophth Drops) 1 drops EACHEYE PRN PRN PRN Reason: Dry Eye Last Admin: 05/21/22 19:07 Dose: 1 drops Carvedilol (Carvedilol 3.125 Mg Tablet) 3.125 mg PO BID [facility] Last Admin: 05/22/22 09:38 Dose: 3.125 mg Cholecalciferol (Cholecalciferol 25 Mcg Tablet) 50 mcg PO DAILY [facility] Last Admin: 05/22/22 09:39 Dose: 50 mcg Diclofenac Sodium (Diclofenac Sodium Dr 75 Mg Tablet) 75 mg PO BID [facility] Last Admin: 05/22/22 09:38 Dose: 75 mg Docusate Sodium (Docusate Sodium 250 Mg Capsule) 250 - 500 mg PO DAILY [facility] Last Admin: 05/22/22 09:37 Dose: 250 mg Enoxaparin Sodium (Enoxaparin 40 Mg/0.4 Ml Syringe) 40 mg SUBQ DAILY [facility] Last Admin: 05/22/22 09:40 Dose: 40 mg Fluticasone Propionate (Fluticasone Nasal [place]) 1 sprays WILLIE BID PRN PRN Reason: Nasal Congestion Last Admin: 05/19/22 13:09 Dose: 1 sprays Levetiracetam (Levetiracetam 250 Mg Tablet) 500 mg PO BID [facility] Last Admin: 05/22/22 09:39 Dose: 500 mg Levothyroxine Sodium (Levothyroxine 25 Mcg Tablet) 50 mcg PO QDAC [facility] Last Admin: 05/22/22 05:41 Dose: 50 mcg Losartan Potassium (Losartan 50 Mg Tablet) 12.5 mg PO DAILY [facility] Last Admin: 05/22/22 09:36 Dose: 12.5 mg Nystatin (Nystatin Powder 15 Gm) 1 applic TOP BID [facility] Last Admin: 05/22/22 09:42 Dose: Not Given Ondansetron HCl (Ondansetron Odt 4 Mg Tablet) 4 mg TL Q6HR PRN PRN Reason: Nausea / Vomiting Ondansetron HCl (Ondansetron 4 Mg/2 Ml Vial) 4 mg IVP Q6HR PRN PRN Reason: Nausea / Vomiting Oxycodone HCl (Oxycodone 5 Mg Tablet) 5 mg PO Q4HR PRN PRN Reason: Pain 5 to 7 Last Admin: 05/22/22 05:41 Dose: 5 mg Pantoprazole Sodium (Pantoprazole 40 Mg Tablet) 40 mg PO BID [facility] Last Admin: 05/22/22 09:35 Dose: 40 mg Polyethylene Glycol (Polyethylene Glycol 3350 17 Gm Packet) 17 gm PO DAILY [facility] Last Admin: 05/22/22 09:41 Dose: 17 gm Senna (Senna 8.6 Mg Tablet) 8.6 - 17.2 mg PO DAILY [facility] Last Admin: 05/22/22 09:37 Dose: 8.6 mg Objective - Vital Signs/Intake & Output Vital Signs: Vital Signs x48h Temp Pulse Resp BP Pulse Ox 05/22/22 08:00 36.6 C 72 16 115/67 94 05/22/22 05:30 36.2 C L 72 18 125/66 98 Intake & Output: Intake & Output 05/19/22 05/20/22 05/21/22 05/22/22 23:59 23:59 23:59 23:59 Intake Total 1750 2054 900 740 Output Total 1100 2050 1125 100 Balance 650 4 -225 640 - Lab Results Fish Bones: 05/15/22 04:15 05/18/22 04:47 Assessment/Plan - Problem List (1) Swelling of knee joint, right Impression: She cannot remember how she fell at home before this current ER presentation. She needed to be admitted for Rhabdomyolysis, this time. When PT started working with her they noticed that she was only toe touching on the right side, could bear weight because her right knee hurts. The right knee has swelling and warmth but no redness. It is hard for her to straighten the R leg or to bend it excessively. At admission there were x-rays done of the right foot, left wrist and LS-spine but not the right knee. We obtained x-rays of R knee after she was admitted>> many abnormalities seen. Ortho input was awaited, since we had no Ortho service from 05/06/22 thru 05/20/22, until today 05/21/22. Plan: CT results show fracture, awaiting ortho imput, Will continue with NSAIDs scheduled, not just prn, for pain control,
--- NOTE | 2022-05-22 11:31 | PROVIDER PROGRESS NOTE ---
Subjective - Prog Note Date Prog Note Date: 05/22/22 Prog Note Time: 11:29 - Subjective Subjective: I encountered Alondra in semi-recumbent position in bed. She is aware that she is in the hospital and asks what we are going to do about her leg. Current Medications - Current Medications Current Medications: Acetaminophen (Acetaminophen 325 Mg Tablet) 650 mg PO Q4HR PRN PRN Reason: Pain 1 to 4, or Fever Last Admin: 05/22/22 05:41 Dose: 650 mg Aspirin (Aspirin Ec 81 Mg Tablet) 81 mg PO DAILY [facility] Last Admin: 05/22/22 09:38 Dose: 81 mg Baclofen (Baclofen 10 Mg Tablet) 30 mg PO BID [facility] Last Admin: 05/22/22 09:39 Dose: 30 mg Carboxymethylcellulose (Carboxymethylcellulose Ophth Drops) 1 drops EACHEYE PRN PRN PRN Reason: Dry Eye Last Admin: 05/21/22 19:07 Dose: 1 drops Carvedilol (Carvedilol 3.125 Mg Tablet) 3.125 mg PO BID [facility] Last Admin: 05/22/22 09:38 Dose: 3.125 mg Cholecalciferol (Cholecalciferol 25 Mcg Tablet) 50 mcg PO DAILY [facility] Last Admin: 05/22/22 09:39 Dose: 50 mcg Diclofenac Sodium (Diclofenac Sodium Dr 75 Mg Tablet) 75 mg PO BID [facility] Last Admin: 05/22/22 09:38 Dose: 75 mg Docusate Sodium (Docusate Sodium 250 Mg Capsule) 250 - 500 mg PO DAILY [facility] Last Admin: 05/22/22 09:37 Dose: 250 mg Enoxaparin Sodium (Enoxaparin 40 Mg/0.4 Ml Syringe) 40 mg SUBQ DAILY [facility] Last Admin: 05/22/22 09:40 Dose: 40 mg Fluticasone Propionate (Fluticasone Nasal [place]) 1 sprays WILLIE BID PRN PRN Reason: Nasal Congestion Last Admin: 05/19/22 13:09 Dose: 1 sprays Levetiracetam (Levetiracetam 250 Mg Tablet) 500 mg PO BID [facility] Last Admin: 05/22/22 09:39 Dose: 500 mg Levothyroxine Sodium (Levothyroxine 25 Mcg Tablet) 50 mcg PO QDAC [facility] Last Admin: 05/22/22 05:41 Dose: 50 mcg Losartan Potassium (Losartan 50 Mg Tablet) 12.5 mg PO DAILY [facility] Last Admin: 05/22/22 09:36 Dose: 12.5 mg Nystatin (Nystatin Powder 15 Gm) 1 applic TOP BID [facility] Last Admin: 05/22/22 09:42 Dose: Not Given Ondansetron HCl (Ondansetron Odt 4 Mg Tablet) 4 mg TL Q6HR PRN PRN Reason: Nausea / Vomiting Ondansetron HCl (Ondansetron 4 Mg/2 Ml Vial) 4 mg IVP Q6HR PRN PRN Reason: Nausea / Vomiting Oxycodone HCl (Oxycodone 5 Mg Tablet) 5 mg PO Q4HR PRN PRN Reason: Pain 5 to 7 Last Admin: 05/22/22 05:41 Dose: 5 mg Pantoprazole Sodium (Pantoprazole 40 Mg Tablet) 40 mg PO BID [facility] Last Admin: 05/22/22 09:35 Dose: 40 mg Polyethylene Glycol (Polyethylene Glycol 3350 17 Gm Packet) 17 gm PO DAILY [facility] Last Admin: 05/22/22 09:41 Dose: 17 gm Senna (Senna 8.6 Mg Tablet) 8.6 - 17.2 mg PO DAILY [facility] Last Admin: 05/22/22 09:37 Dose: 8.6 mg Objective - Vital Signs/Intake & Output Vital Signs: Vital Signs x48h Temp Pulse Resp BP Pulse Ox 05/22/22 08:00 36.6 C 72 16 115/67 94 05/22/22 05:30 36.2 C L 72 18 125/66 98 Intake & Output: Intake & Output 05/19/22 05/20/22 05/21/22 05/22/22 23:59 23:59 23:59 23:59 Intake Total 1750 4 900 740 Output Total 1100 0 1125 100 Balance 650 4 225 640 - Objective General Appearance: positive: Other (Pale skin, loud voice, looks at me as I enter the room.) Eyes Bilateral: positive: Normal inspection ENT: positive: ENT inspection nml Neck: positive: Nml inspection Respiratory: positive: Chest non-tender, Breath sounds nml Cardiovascular: positive: Regular rate & rhythm Peripheral Pulses: 0 Dorsalis pedis (R) (unable to plapate, swelling, cap refil < 3 sec), 0 Dorsalis pedis (L) (unable to plapate, swelling, cap refil < 3 sec), 1+ Radial (R), 1+ Radial (L) Abdomen: positive: Non-tender Back: positive: Nml inspection Skin: positive: Dry Extremities: positive: Pedal edema (BLE swelling and pain) Neurologic/Psychiatric: positive: Disoriented to person, Disoriented to place - Lab Results Fish Bones: 05/15/22 04:15 05/18/22 04:47 - Diagnostic Imaging Diagnostic Imaging Results: positive: Final report reviewed Diagnostic Imaging Comments: CT Findings: Bones; The bones are osterpenic. There is a impacted, comminuted diametaphyseal fracture involved the medial distal femoral cortex with angulation. There is associated horizontal metaphyseal component with minimal posterior displacement of the major distal fragment. Soft tissues: Question ACL tear from its femoral attachment. There is suggestion of internal derangment with widening of the anterior space between the lateral femoral condyle and lateral tibial plateau. Impression: 1. Comminuted distal femoral fracture involving the diametaphyseal region and metaphyseal region. 2. Underlying diffuse osteopenia. 3. Suggestion of probable ACL tear/internal derangement of the knee. Comment: MRI of the knee may be helpful on a nonemergent basis. Assessment/Plan - Problem List (1) Swelling of knee joint, right Impression: She cannot remember how she fell at home before this current ER presentation. She needed to be admitted for Rhabdomyolysis, this time. When PT started working with her they noticed that she was only toe touching on the right side, could bear weight because her right knee hurts. The right knee has swelling and warmth but no redness. It is hard for her to straighten the R leg or to bend it excessively. At admission there were x-rays done of the right foot, left wrist and LS-spine but not the right knee. We obtained x-rays of R knee after she was admitted>> many abnormalities seen. Ortho input was awaited, since we had no Ortho service from 05/06/22 thru 05/20/22, until today 05/21/22. Plan:Will continue with NSAIDs scheduled, not just prn, for pain control, CT results show fx and possible ACL tear, non weight bearing until ortho give recommendations (2) Frequent falls Impression: Per pt's story she slipped and fell on some milk this time. Has a history of frequent falls, prior back pain, ankle pain. History of back and ankle surgery. Xrays obtained in ED were negative for fractures. PT noticed that she was only toe touching on the right leg, could not bear weight because her right knee hurt. Plan: PT/OT to hold until ortho has evaluated the femur fracture (3) History of seizures Impression: Per EMR was on keppra several admissions ago. Has presented to ED with delirium, etiology uncertain, UTI, dehydration, post-ictal. Plan: continue restarted keppra (4) Cognitive impairment Impression: Last recent hospitalization 1 week ago had a SLUMS test done by OT. Score 11/30, indicating severly cognitively impaired, staff was not sure if she was actively participating to make that an accurate score. 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 Plan: Social work is working on this placement (5) Coronary artery disease Impression: hx of [place] Plan: continue restarted b-briseida and baby aspirin daily, restart her statin therapy Qualifiers: Coronary Disease-Associated Artery/Lesion type: [place] artery [place] vs. transplanted heart: [place] heart Associated angina: without angina Qualified Code(s): I25.10 - Atherosclerotic heart disease of [place] coronary artery without angina pectoris (6) Chronic HFrEF (heart failure with reduced ejection fraction) Impression: EF 35-40% by ECHO in 12/2021 Plan: b-briseida restarted, ARB restarted, restart spironolactone, assess for volume overload (7) Altered mental status Impression: Resolved Has had several hospitalizations in past month, etiology felt to be post-ictal, dehydration, infectious Qualifiers: Altered mental status type: disorientation Qualified Code(s): R41.0 - Disorientation, unspecified (8) Rhabdomyolysis Impression: Resolved CK improved now in the 700s after IV fluids, taking good po intake now Qualifiers: Rhabdomyolysis type: non-traumatic Qualified Code(s): M62.82 - Rhabdomyolysis (9) Hypothyroidism Impression: high TSH 7.51 this admission. Plan: synthroid restarted, check free T4, and TSH again. Qualifiers: Hypothyroidism type: unspecified Qualified Code(s): E03.9 - Hypothyroidism, unspecified (10) HTN (hypertension) Impression: History of HTN, has been normotensive this admission Plan: monitor for HTN SBP>140 Qualifiers: Hypertension type: primary hypertension Qualified Code(s): I10 - Essential (primary) hypertension (11) Hyperlipidemia Impression: Plan: check HDL, LDL, triglycerides, don't have those labs this admission Qualifiers: Hyperlipidemia type: unspecified Qualified Code(s): E78.5 - Hyperlipidemia, unspecified (12) Hypernatremia Impression: Resolved (13) Hypokalemia Impression: Resolved with replacement (14) Hx of multiple sclerosis Impression: Has hx of MS, not receiving treatment for it at this time.
--- NOTE | 2022-05-22 16:35 | PROVIDER PROGRESS NOTE ---
Subjective - General Admit Date: 05/14/22 - Other Other Information/Narrative: This is a 66-year-old woman that was admitted on about 05/14/2022 with a history of fall and pain to her right leg. Orthopedics was consulted yesterday. Due to inadequate radiographs, a CT scan was obtained and shows fracture of the distal femur. When she was examined yesterday she had limited and painful movement and diffuse pain about the right knee. She is a poor historian and has most likely chronic dementia. She has a history of frequent falls and multiple medical problems. Objective - Patient Data Vital Signs: Vital Signs x48h Temp Pulse Resp BP Pulse Ox 05/22/22 14:00 36.3 C L 64 18 89/54 L 97 Intake & Output: Intake and Output Totals x24h 05/20/22 05/21/22 05/22/22 23:59 23:59 23:59 Intake Total 2053 900 890 Output Total 2049 1125 1700 Balance 4 -586 -600 - Lab Results Lab Results: 05/15/22 04:15 05/18/22 04:47 - Imaging Results Radiology Imaging: positive: EMP read indepedently, Other - Current Medications Current Medications: Current Medications Generic Name Dose Route Start Last Admin Trade Name Freq PRN Reason Stop Dose Admin Acetaminophen 650 mg 05/14/22 15:41 05/22/22 12:20 Acetaminophen 325 Mg Tablet PO 650 mg Q4HR PRN Administration Pain 1 to 4, or Fever Aspirin 81 mg 05/16/22 09:00 05/22/22 09:38 Aspirin Ec 81 Mg Tablet PO 81 mg DAILY [facility] Administration Baclofen 30 mg 05/15/22 21:00 05/22/22 09:39 Baclofen 10 Mg Tablet PO 30 mg BID [facility] Administration Carboxymethylcellulose 1 drops 05/21/22 17:59 05/21/22 19:07 Carboxymethylcellulose Ophth Drops EACHEYE 1 drops PRN PRN Administration Dry Eye Carvedilol 3.125 mg 05/15/22 09:00 05/22/22 09:38 Carvedilol 3.125 Mg Tablet PO 3.125 mg BID [facility] Administration Cholecalciferol 50 mcg 05/21/22 12:00 05/22/22 09:39 Cholecalciferol 25 Mcg Tablet PO 50 mcg DAILY [facility] Administration Diclofenac Sodium 75 mg 05/18/22 21:00 05/22/22 09:[address] 75 Mg Tablet PO 75 mg BID [facility] Administration Docusate Sodium 250 - 500 mg 05/18/22 09:00 05/22/22 09:37 Docusate Sodium 250 Mg Capsule PO 250 mg DAILY [facility] Administration Enoxaparin Sodium 40 mg 05/15/22 09:00 05/22/22 09:40 Enoxaparin 40 Mg/0.4 Ml Syringe SUBQ 40 mg DAILY [facility] Administration Fluticasone Propionate 1 sprays 05/15/22 08:38 05/19/22 13:09 Fluticasone Nasal [place] WILLIE 1 sprays BID PRN Administration Nasal Congestion Levetiracetam 500 mg 05/15/22 21:00 05/22/22 09:39 Levetiracetam 250 Mg Tablet PO 500 mg BID [facility] Administration Levothyroxine Sodium 50 mcg 05/16/22 07:00 05/22/22 05:41 Levothyroxine 25 Mcg Tablet PO 50 mcg QDAC [facility] Administration Losartan Potassium 12.5 mg 05/15/22 09:00 05/22/22 09:36 Losartan 50 Mg Tablet PO 12.5 mg DAILY [facility] Administration Nystatin 1 applic 05/15/22 21:00 05/22/22 09:42 Nystatin Powder 15 Gm TOP Not Given BID [facility] Oxycodone HCl 5 mg 05/14/22 15:41 05/22/22 12:20 Oxycodone 5 Mg Tablet PO 5 mg Q4HR PRN Administration Pain 5 to 7 Pantoprazole Sodium 40 mg 05/18/22 21:00 05/22/22 09:35 Pantoprazole 40 Mg Tablet PO 40 mg BID [facility] Administration Polyethylene Glycol 17 gm 05/17/22 12:00 05/22/22 09:41 Polyethylene Glycol 3350 17 Gm Packet PO 17 gm DAILY [facility] Administration Senna 8.6 - 17.2 mg 05/18/22 09:00 05/22/22 09:37 Senna 8.6 Mg Tablet PO 8.6 mg DAILY [facility] Administration - Physical Exam Neurologic/Psychiatric: positive: Disoriented to person, Disoriented to place, Disoriented to time Comments/Other: The right knee shows intact skin, diffuse swelling about right knee, no fracture blisters, diffuse tenderness about the right distal femur and knee, limited and painful movement right knee, no gross deformity, neurovascular intact. She holds her knee in a position of flexion for comfort. When her knee is not move, she appears to be comfortable. I independently visualized the CT scan of the right knee and this shows a minimally displaced supra condylar fracture of the distal femur. the fracture is extra-articular and involves mostly the medial femoral condyle but does extend into the lateral femoral condyle more distally. There is marked osteopenia. Impression/Plan - Problem List Problem List: 1. Minimally displaced supracondylar fracture of distal femur associated with advanced osteopenia 2. Multiple comorbidities, certainly not the best surgical candidate I would recommend a long-leg hinged knee brace, partial weightbearing with walker, physical therapy/Occupational Therapy would be helpful. I suspect she will need to be discharged to a [place] [facility] facility
[2022-05-23] MEDS: LEVOTHYROXINE 25 MCG TABLET PO SCH (06:48)
[2022-05-23] MEDS: carvediloL 3.125 MG TABLET PO SCH ×2 (08:38→21:45)
[2022-05-23] MEDS: polyethylene glycoL 3350 17 GM PACKET PO SCH (08:38)
[2022-05-23] MEDS: ENOXAPARIN 40 MG/0.4 ML SYRINGE SUBQ SCH (08:38)
[2022-05-23] MEDS: ASPIRIN EC 81 MG TABLET PO SCH (08:39)
[2022-05-23] MEDS: LOSARTAN 50 MG TABLET PO SCH (08:39)
[2022-05-23] MEDS: PANTOPRAZOLE 40 MG TABLET PO SCH ×2 (08:39→21:45)
[2022-05-23] MEDS: DOCUSATE SODIUM 250 MG CAPSULE PO SCH (08:40)
[2022-05-23] MEDS: SENNA 8.6 MG TABLET PO SCH (08:40)
[2022-05-23] MEDS: DICLOFENAC SODIUM DR 75 MG TABLET PO SCH ×2 (08:40→21:45)
[2022-05-23] MEDS: BACLOFEN 10 MG TABLET PO SCH ×2 (08:41→21:44)
[2022-05-23] MEDS: levETIRAcetam 250 MG TABLET PO SCH ×2 (08:41→21:45)
[2022-05-23] MEDS: CHOLECALCIFEROL 25 MCG TABLET PO SCH (08:41)
[2022-05-23] MEDS: NYSTATIN POWDER 15 GM TOP SCH ×2 (08:42→21:45)
--- NOTE | 2022-05-23 16:06 | PROVIDER PROGRESS NOTE ---
Subjective - General Admit Date: 05/14/22 - Other Other Information/Narrative: She is pleasant and alert today when the orthopedic providers arrive Sitting in bed eating chocolate pudding in a semirecumbent position She asks what we will do about her right leg Objective - Patient Data Vital Signs: Vital Signs x48h Temp Pulse Resp BP Pulse Ox 05/23/22 15:44 36.5 C 70 18 119/55 L 94 05/23/22 08:54 36.1 C L 64 91/53 L 94 Intake & Output: Intake and Output Totals x24h 05/21/22 05/22/22 05/23/22 23:59 23:59 23:59 Intake Total 900 1340 200 Output Total 1125 3300 1999 Balance -225 1960 -1800 - Lab Results Lab Results: 05/15/22 04:15 05/18/22 04:47 - Imaging Results Radiology Imaging: positive: Final report received - Current Medications Current Medications: Current Medications Generic Name Dose Route Start Last Admin Trade Name Freq PRN Reason Stop Dose Admin Acetaminophen 650 mg 05/14/22 15:41 05/22/22 21:57 Acetaminophen 325 Mg Tablet PO 650 mg Q4HR PRN Administration Pain 1 to 4, or Fever Aspirin 81 mg 05/16/22 09:00 05/23/22 08:39 Aspirin Ec 81 Mg Tablet PO 81 mg DAILY [facility] Administration Baclofen 30 mg 05/15/22 21:00 05/23/22 08:41 Baclofen 10 Mg Tablet PO 30 mg BID [facility] Administration Carboxymethylcellulose 1 drops 05/21/22 17:59 05/21/22 19:07 Carboxymethylcellulose Ophth Drops EACHEYE 1 drops PRN PRN Administration Dry Eye Carvedilol 3.125 mg 05/15/22 09:00 05/23/22 08:38 Carvedilol 3.125 Mg Tablet PO 3.125 mg BID [facility] Administration Cholecalciferol 50 mcg 05/21/22 12:00 05/23/22 08:41 Cholecalciferol 25 Mcg Tablet PO 50 mcg DAILY [facility] Administration Diclofenac Sodium 75 mg 05/18/22 21:00 05/23/22 08:[address] 75 Mg Tablet PO 75 mg BID [facility] Administration Docusate Sodium 250 - 500 mg 05/18/22 09:00 05/23/22 08:40 Docusate Sodium 250 Mg Capsule PO 250 mg DAILY [facility] Administration Enoxaparin Sodium 40 mg 05/15/22 09:00 05/23/22 08:38 Enoxaparin 40 Mg/0.4 Ml Syringe SUBQ 40 mg DAILY [facility] Administration Fluticasone Propionate 1 sprays 05/15/22 08:38 05/19/22 13:09 Fluticasone Nasal [place] WILLIE 1 sprays BID PRN Administration Nasal Congestion Levetiracetam 500 mg 05/15/22 21:00 05/23/22 08:41 Levetiracetam 250 Mg Tablet PO 500 mg BID [facility] Administration Levothyroxine Sodium 50 mcg 05/16/22 07:00 05/23/22 06:48 Levothyroxine 25 Mcg Tablet PO 50 mcg QDAC [facility] Administration Losartan Potassium 12.5 mg 05/15/22 09:00 05/23/22 08:39 Losartan 50 Mg Tablet PO 12.5 mg DAILY [facility] Administration Nystatin 1 applic 05/15/22 21:00 05/23/22 08:42 Nystatin Powder 15 Gm TOP Not Given BID [facility] Oxycodone HCl 5 mg 05/14/22 15:41 05/22/22 21:57 Oxycodone 5 Mg Tablet PO 5 mg Q4HR PRN Administration Pain 5 to 7 Pantoprazole Sodium 40 mg 05/18/22 21:00 05/23/22 08:39 Pantoprazole 40 Mg Tablet PO 40 mg BID [facility] Administration Polyethylene Glycol 17 gm 05/17/22 12:00 05/23/22 08:38 Polyethylene Glycol 3350 17 Gm Packet PO 17 gm DAILY [facility] Administration Senna 8.6 - 17.2 mg 05/18/22 09:00 05/23/22 08:40 Senna 8.6 Mg Tablet PO 8.6 mg DAILY [facility] Administration - Physical Exam General Appearance: positive: No acute distress, Alert Respiratory: positive: No respiratory distress Skin: positive: Color nml, Warm Extremities: positive: Other (Right knee is bent in about 90 degrees of flexion. She is tender to palpation diffusely about the right knee. She has pain with extension and flexion of the right knee both actively and passively. There is no effusion, warmth or erythema about the right knee. She is neurovascularly intact to the) Comments/Other: Alert and oriented, no acute distress She sitting recumbent in bed, pleasant Right knee remains in about 90 degrees of flexion without erythema, effusion, warmth or ecchymosis. Again she is guarding from any movement of the right knee. Hinged knee brace is not in place, sitting on the counter away from patient. She is not an immobilization device at time of evaluation. ABX Reporting Has patient been on IV antibiotics over the past 48 hours?: No Impression/Plan - Problem List Problem List: 66-year-old female who presented to [facility] emergency department on 05/14/2022 after being found down after a fall and was admitted to the hospital for metabolic encephalopathy, acute kidney injury and frequent falls. Orthopedics consulted for right knee pain on day 8 of hospital admission after patient was reportedly toe-touch weightbearing with physical therapy. A CT of the right knee was obtained due to poor imaging quality of right knee x-ray. She was found to have a minimally displaced supracondylar fracture of the distal femur with advanced osteopenia. Orthopedic surgery is following the patient for supracondylar fracture. She was admitted to medicine given numerous medical c omorbidities. Patient was unable to tolerate a hinged knee brace due to pain. The brace was removed overnight. Today she was placed in a long-leg splint with anterior and posterior Ortho-Glass secured by web roll and an [place] bandage by Orthopedic surgeon Dr. Garcia and myself. Patient reported pain with knee movement during splint application. After the splint was in place she was neurovascularly intact to the right lower extremity. She tolerated the splint well. Plan: -Trial of nonoperative management with above splint for minimally displaced supracondylar fracture of the distal right femur. -Continue physical therapy and occupational therpay with toe-touch weightbearing to right lower extremity. - Pain control per hospitalist physician - Disposition likely to a fpc facility, social work following
--- NOTE | 2022-05-23 17:04 | PROVIDER PROGRESS NOTE ---
Progress Note May 23, 2022 5 PM Ms. Lizarraga continues to perseverate. She will fixate on multiple remote blood goal of it. Whether it is putting in how much she wants. Or the TV remote. We tried a long leg hinged knee brace on her yesterday. Orthopedics put her on last night. But she was not having it. She does not like the discomfort. They tried releasing some of the pressure along the upper thigh and she still did not like that. Other than the knee pain, there is not much new complaints from her. Vital signs have been stable and there is been no fever. Active Medications Acetaminophen (Acetaminophen 325 Mg Tablet) 650 mg PO Q4HR PRN PRN Reason: Pain 1 to 4, or Fever Last Admin: 05/22/22 21:57 Dose: 650 mg Aspirin (Aspirin Ec 81 Mg Tablet) 81 mg PO DAILY [facility] Last Admin: 05/23/22 08:39 Dose: 81 mg Baclofen (Baclofen 10 Mg Tablet) 30 mg PO BID [facility] Last Admin: 05/23/22 08:41 Dose: 30 mg Carboxymethylcellulose (Carboxymethylcellulose Ophth Drops) 1 drops EACHEYE PRN PRN PRN Reason: Dry Eye Last Admin: 05/21/22 19:07 Dose: 1 drops Carvedilol (Carvedilol 3.125 Mg Tablet) 3.125 mg PO BID [facility] Last Admin: 05/23/22 08:38 Dose: 3.125 mg Cholecalciferol (Cholecalciferol 25 Mcg Tablet) 50 mcg PO DAILY [facility] Last Admin: 05/23/22 08:41 Dose: 50 mcg Diclofenac Sodium (Diclofenac Sodium Dr 75 Mg Tablet) 75 mg PO BID [facility] Last Admin: 05/23/22 08:40 Dose: 75 mg Docusate Sodium (Docusate Sodium 250 Mg Capsule) 250 - 500 mg PO DAILY [facility] Last Admin: 05/23/22 08:40 Dose: 250 mg Enoxaparin Sodium (Enoxaparin 40 Mg/0.4 Ml Syringe) 40 mg SUBQ DAILY [facility] Last Admin: 05/23/22 08:38 Dose: 40 mg Fluticasone Propionate (Fluticasone Nasal [place]) 1 sprays WILLIE BID PRN PRN Reason: Nasal Congestion Last Admin: 05/19/22 13:09 Dose: 1 sprays Levetiracetam (Levetiracetam 250 Mg Tablet) 500 mg PO BID [facility] Last Admin: 05/23/22 08:41 Dose: 500 mg Levothyroxine Sodium (Levothyroxine 25 Mcg Tablet) 50 mcg PO QDAC [facility] Last Admin: 05/23/22 06:48 Dose: 50 mcg Losartan Potassium (Losartan 50 Mg Tablet) 12.5 mg PO DAILY [facility] Last Admin: 05/23/22 08:39 Dose: 12.5 mg Nystatin (Nystatin Powder 15 Gm) 1 applic TOP BID [facility] Last Admin: 05/23/22 08:42 Dose: Not Given Ondansetron HCl (Ondansetron Odt 4 Mg Tablet) 4 mg TL Q6HR PRN PRN Reason: Nausea / Vomiting Ondansetron HCl (Ondansetron 4 Mg/2 Ml Vial) 4 mg IVP Q6HR PRN PRN Reason: Nausea / Vomiting Oxycodone HCl (Oxycodone 5 Mg Tablet) 5 mg PO Q4HR PRN PRN Reason: Pain 5 to 7 Last Admin: 05/22/22 21:57 Dose: 5 mg Pantoprazole Sodium (Pantoprazole 40 Mg Tablet) 40 mg PO BID [facility] Last Admin: 05/23/22 08:39 Dose: 40 mg Polyethylene Glycol (Polyethylene Glycol 3350 17 Gm Packet) 17 gm PO DAILY [facility] Last Admin: 05/23/22 08:38 Dose: 17 gm Senna (Senna 8.6 Mg Tablet) 8.6 - 17.2 mg PO DAILY [facility] Last Admin: 05/23/22 08:40 Dose: 8.6 mg Losartan Potassium 12.5 mg PO DAILY 04/03/22 Fluticasone [Flonase] 1 sprays WILLIE BID PRN 04/20/22 carvediloL [Coreg] 3.125 mg PO BID 04/20/22 Acetaminophen [Acetaminophen Extra Strength] 1,000 mg PO TID PRN 04/24/[address] [Voltaren] 1 tab PO BID PRN 04/24/22 Spironolactone [Aldactone] 12.5 mg PO DAILY 05/09/22 Levetiracetam [Keppra] 500 mg PO BID 05/15/22 Levothyroxine Sodium 50 mcg PO DAILY 05/15/22 Exam: Temperature is 36.5. Heart rate 70. Blood pressure 119/55. Respirations 18. 94% on room air. She is 5 foot 2 inch short stocky lady who 70.5 kg. Communicates with speaking in a loud voice on a regular basis. Lungs are clear. Neck is supple. There is no respiratory distress. Regular rate and rhythm Abdomen is protuberant, soft, obese, nontender. Normal bowel sounds. Extremities have right knee pain where the fracture is. No labs since May 18. Lower extremity CT done yesterday and reviewed. She has a comminuted distal femoral fracture involving the diametaphyseal region and metaphyseal region. Underlying osteopenia. Suggestion of a probable ACL tear and internal derangement of the knee. An MRI of the knee may be helpful on a nonemergent basis. Assessment/Plan - Problem List (1) Right distal femoral fracture Impression: She cannot remember how she fell at home before this current ER presentation. She was again encephalopathic, confused, and she needed to be admitted for Rhabdomyolysis, this time. When PT started working with her they noticed that she was only toe touching on the right side, could bear weight because her right knee hurts. The right knee has swelling and warmth but no redness. It is hard for her to straighten the R leg or to bend it excessively. At admission there were x-rays done of the right foot, left wrist and LS-spine but not the right knee. We obtained x-rays of R knee after she was admitted>> many abnormalities seen. Ortho input was awaited, since we had no Ortho service from 05/06/22 thru 05/20/22, until 05/21/22. She ended up going to CT for evaluation and the comminuted distal femoral fracture was diagnosed. We are now struggling on how to handle this. She does not like the hinged knee brace. It is going to slow her down with regards to rehab. Orthopedics is in the midst of negotiating what they can use on her. Plan:Will continue with NSAIDs scheduled, not just prn, for pain control, She may end up needing a cast if she cannot tolerate a hinged brace (2) Frequent falls Impression: Per pt's story she slipped and fell on some milk this time. Has a history of frequent falls, prior back pain, ankle pain. History of back and ankle surgery. Xrays obtained in ED were negative for fractures. PT noticed that she was o nly toe touching on the right leg, could not bear weight because her right knee hurt. Plan: PT/OT Can resume. She is weightbearing as tolerated. (3) History of seizures Impression: Per EMR was on keppra several admissions ago. Has presented to ED with delirium, etiology uncertain, UTI, dehydration, post-ictal. Plan: continue restarted keppra (4) Cognitive impairment Impression: Last recent hospitalization 1 week ago had a SLUMS test done by OT. Score 11/30, indicating severly cognitively impaired, staff was not sure if she was actively participating to make that an accurate score. The impression we got was that she was irritated with all of this and was throwing us out of the room and did not want to cooperate with questions. During this admission, she has agreed to go to retirement placement and [facility]. Plan: Social work is working on this placement (5) Coronary artery disease Impression: hx of [place] Plan: continue restarted b-briseida and baby aspirin daily, restarted her statin therapy Qualifiers: Coronary Disease-Associated Artery/Lesion type: [place] artery [place] vs. transplanted heart: [place] heart Associated angina: without angina Qualified Code(s): I25.10 - Atherosclerotic heart disease of [place] coronary artery without angina pectoris (6) Chronic HFrEF (heart failure with reduced ejection fraction) Impression: EF 35-40% by ECHO in 12/2021 Plan: b-briseida restarted, ARB restarted, restart spironolactone, no volume overload. (7) Altered mental status Impression: Resolved Has had several hospitalizations in past month, etiology felt to be post-ictal, dehydration, infectious Qualifiers: Altered mental status type: disorientation Qualified Code(s): R41.0 - Disorientation, unspecified (8) Rhabdomyolysis Impression: Resolved CK improved now in the 700s after IV fluids, taking good po intake now Qualifiers: Rhabdomyolysis type: non-traumatic Qualified Code(s): M62.82 - Rhabdomyolysis (9) Hypothyroidism Impression: high TSH 7.51 this admission. Plan: synthroid restarted, check free T4, and TSH again in 4-6 weeks. Qualifiers: Hypothyroidism type: unspecified Qualified Code(s): E03.9 - Hypothyroidism, unspecified (10) HTN (hypertension) Impression: History of HTN, has been normotensive this admission Plan: monitor for HTN SBP>140 Qualifiers: Hypertension type: primary hypertension Qualified Code(s): I10 - Essential (primary) hypertension (11) Hyperlipidemia Impression: Plan: check HDL, LDL, triglycerides, don't have those labs this admission Qualifiers: Hyperlipidemia type: unspecified Qualified Code(s): E78.5 - Hyperlipidemia, unspecified (12) Hypernatremia Impression: Resolved check labs in am. (13) Hypokalemia Impression: Resolved with replacement. check labs in am. (14) Hx of multiple sclerosis Impression: Has hx of MS, not receiving treatment for it at this time.
[2022-05-24] MEDS: LEVOTHYROXINE 25 MCG TABLET PO SCH (06:16)
[2022-05-24] MEDS: DICLOFENAC SODIUM DR 75 MG TABLET PO SCH ×2 (08:43→20:55)
[2022-05-24] MEDS: DOCUSATE SODIUM 250 MG CAPSULE PO SCH (08:43)
[2022-05-24] MEDS: ENOXAPARIN 40 MG/0.4 ML SYRINGE SUBQ SCH (08:43)
[2022-05-24] MEDS: BACLOFEN 10 MG TABLET PO SCH ×2 (08:43→20:55)
[2022-05-24] MEDS: ASPIRIN EC 81 MG TABLET PO SCH (08:45)
[2022-05-24] MEDS: SENNA 8.6 MG TABLET PO SCH (08:45)
[2022-05-24] MEDS: levETIRAcetam 250 MG TABLET PO SCH ×2 (08:45→20:55)
[2022-05-24] MEDS: LOSARTAN 50 MG TABLET PO SCH (08:45)
[2022-05-24] MEDS: carvediloL 3.125 MG TABLET PO SCH ×2 (08:45→20:55)
[2022-05-24] MEDS: polyethylene glycoL 3350 17 GM PACKET PO SCH (08:46)
[2022-05-24 09:13] LABS: BASOPHILS # (AUTO) 0.1 10^3/uL (0.0-0.1); BASOPHILS % (AUTO) 1.1 %; EOSINOPHILS % (AUTO) 0.4 %; HCT - HEMATOCRIT 39.7 % (37.0-47.0); HGB - HEMOGLOBIN 12.1 g/dL (12.0-16.0); LYMPHOCYTES # (AUTO) 2.3 10^3/uL (1.5-3.5); LYMPHOCYTES % (AUTO) 25.4 %; MEAN CORPUSCULAR HGB CONC 30.5 g/dL (32.0-36.0); MEAN CORPUSCULAR VOLUME 91.9 fL (81.0-99.0); MEAN PLATELET VOLUME 11.2 fL (7.9-10.8); MONOCYTES # (AUTO) 0.6 10^3/uL (0.0-1.0); MONOCYTES % (AUTO) 6.7 %; NEUTROPHILS # (AUTO) 5.9 10^3/uL (1.5-6.6); NEUTROPHILS % (AUTO) 66.3 %; PLT - PLATELET COUNT 255 10^3/uL (130-450); RED BLOOD COUNT 4.32 10^6/uL (4.20-5.40); RED CELL DISTRIBUTION WIDTH 15.9 % (12.0-15.0); WHITE BLOOD COUNT 8.9 x10^3/uL (4.8-10.8)
[2022-05-24 09:20] LABS: CALCIUM 9.6 mg/dL (8.5-10.3); CREATININE 1.1 mg/dL (0.4-1.0); POTASSIUM 4.8 mmol/L (3.5-5.0)
[2022-05-24] MEDS: NYSTATIN POWDER 15 GM TOP SCH ×2 (10:32→20:55)
[2022-05-24] MEDS: CHOLECALCIFEROL 25 MCG TABLET PO SCH (10:41)
[2022-05-24] MEDS: PANTOPRAZOLE 40 MG TABLET PO SCH ×2 (10:41→20:55)
[2022-05-24] MEDS: oxyCODONE 5 MG TABLET PO PRN ×2 (11:55→18:30)
[2022-05-24] MEDS: ACETAMINOPHEN 325 MG TABLET PO PRN ×2 (11:56→18:30)
--- NOTE | 2022-05-24 13:37 | PROVIDER PROGRESS NOTE ---
Subjective - Prog Note Date Prog Note Date: 05/24/22 Prog Note Time: 13:36 - Subjective Subjective: Ms. Lizarraga says she is doing fine. She is eating breakfast. Really does not like working with physical therapy because she says it makes her knee hurt. When I reminded her that if she could just wear the brace it would help, she says that she disagrees with me. She denies shortness of breath. Cough. She says she gets a little chest achiness in the center of her chest but she says it just comes and goes and only last for a second or 2. When I asked how long its been happening she states has been going on for months. No abdominal pain. Other than her right knee no new joint pain Food intake is anywhere between 25 to 85% of her food. Intake is minimal at 100 to 300 cc a day. I did labs today since she has not had done for a week. She has a BUN of 21, and a creatinine of 1.1. Current Medications - Current Medications Current Medications: Active Medications Acetaminophen (Acetaminophen 325 Mg Tablet) 650 mg PO Q4HR PRN PRN Reason: Pain 1 to 4, or Fever Last Admin: 05/24/22 11:56 Dose: 650 mg Aspirin (Aspirin Ec 81 Mg Tablet) 81 mg PO DAILY [facility] Last Admin: 05/24/22 08:45 Dose: 81 mg Baclofen (Baclofen 10 Mg Tablet) 30 mg PO BID [facility] Last Admin: 05/24/22 08:43 Dose: 30 mg Carboxymethylcellulose (Carboxymethylcellulose Ophth Drops) 1 drops EACHEYE PRN PRN PRN Reason: Dry Eye Last Admin: 05/21/22 19:07 Dose: 1 drops Carvedilol (Carvedilol 3.125 Mg Tablet) 3.125 mg PO BID [facility] Last Admin: 05/24/22 08:45 Dose: 3.125 mg Cholecalciferol (Cholecalciferol 25 Mcg Tablet) 50 mcg PO DAILY [facility] Last Admin: 05/24/22 10:41 Dose: 50 mcg Diclofenac Sodium (Diclofenac Sodium Dr 75 Mg Tablet) 75 mg PO BID [facility] Last Admin: 05/24/22 08:43 Dose: 75 mg Docusate Sodium (Docusate Sodium 250 Mg Capsule) 250 - 500 mg PO DAILY [facility] Last Admin: 05/24/22 08:43 Dose: 250 mg Enoxaparin Sodium (Enoxaparin 40 Mg/0.4 Ml Syringe) 40 mg SUBQ DAILY [facility] Last Admin: 05/24/22 08:43 Dose: 40 mg Fluticasone Propionate (Fluticasone Nasal [place]) 1 sprays WILLIE BID PRN PRN Reason: Nasal Congestion Last Admin: 05/19/22 13:09 Dose: 1 sprays Levetiracetam (Levetiracetam 250 Mg Tablet) 500 mg PO BID [facility] Last Admin: 05/24/22 08:45 Dose: 500 mg Levothyroxine Sodium (Levothyroxine 25 Mcg Tablet) 50 mcg PO QDAC [facility] Last Admin: 05/24/22 06:16 Dose: 50 mcg Losartan Potassium (Losartan 50 Mg Tablet) 12.5 mg PO DAILY [facility] Last Admin: 05/24/22 08:45 Dose: 12.5 mg Nystatin (Nystatin Powder 15 Gm) 1 applic TOP BID [facility] Last Admin: 05/24/22 10:32 Dose: Not Given Ondansetron HCl (Ondansetron Odt 4 Mg Tablet) 4 mg TL Q6HR PRN PRN Reason: Nausea / Vomiting Ondansetron HCl (Ondansetron 4 Mg/2 Ml Vial) 4 mg IVP Q6HR PRN PRN Reason: Nausea / Vomiting Oxycodone HCl (Oxycodone 5 Mg Tablet) 5 mg PO Q4HR PRN PRN Reason: Pain 5 to 7 Last Admin: 05/24/22 11:55 Dose: 5 mg Pantoprazole Sodium (Pantoprazole 40 Mg Tablet) 40 mg PO BID [facility] Last Admin: 05/24/22 10:41 Dose: 40 mg Polyethylene Glycol (Polyethylene Glycol 3350 17 Gm Packet) 17 gm PO DAILY [facility] Last Admin: 05/24/22 08:46 Dose: Not Given Senna (Senna 8.6 Mg Tablet) 8.6 - 17.2 mg PO DAILY [facility] Last Admin: 05/24/22 08:45 Dose: 8.6 mg Losartan Potassium 12.5 mg PO DAILY 04/03/22 Fluticasone [Flonase] 1 sprays WILLIE BID PRN 04/20/22 carvediloL [Coreg] 3.125 mg PO BID 04/20/22 Acetaminophen [Acetaminophen Extra Strength] 1,000 mg PO TID PRN 04/24/[address] [Voltaren] 1 tab PO BID PRN 04/24/22 Spironolactone [Aldactone] 12.5 mg PO DAILY 05/09/22 Levetiracetam [Keppra] 500 mg PO BID 05/15/22 Levothyroxine Sodium 50 mcg PO DAILY 05/15/22 Objective - Vital Signs/Intake & Output Reviewed Vital Signs: Yes Vital Signs: Vital Signs x48h Temp Pulse Resp BP Pulse Ox 05/24/22 08:34 36.6 C 65 18 117/63 94 05/24/22 05:57 36.5 C 64 18 118/57 L 95 Intake & Output: Intake & Output 05/21/22 05/22/22 05/23/22 05/24/22 23:59 23:59 23:59 23:59 Intake Total 900 1340 740 340 Output Total 1125 3300 2150 1500 Balance -225 -1960 -1410 -1160 - Objective General Appearance: positive: Alert, Other (Oriented to place, time but poor insight about why she ended up here again) Eyes Bilateral: positive: PERRL, EOMI ENT: positive: No signs of dehydration Neck: positive: No JVD. negative: Stiff neck Respiratory: positive: No respiratory distress. negative: Wheezes, Rales, Rhonchi Cardiovascular: positive: Regular rate & rhythm Abdomen: positive: Non-tender, No organomegaly, Nml bowel sounds, No distention Skin: positive: Warm, Dry Extremities: positive: Other (Right knee extended, unable to completely flex. She cannot weight-bear because of pain. Mild effusion around the knee. But no redness, heat, ballottement) Neurologic/Psychiatric: positive: CN's nml (2-12), Motor nml, Disoriented to time - Lab Results Fish Bones: 05/24/22 09:01 05/24/22 09:01 Other Labs: Lab Results x24hrs 05/24/22 05/24/22 Range/Units 09:01 09:01 WBC 8.9 (4.8-10.8) x10^3/uL RBC 4.32 (4.20-5.40) 10^6/uL Hgb 12.1 (12.0-16.0) g/dL Hct 39.7 (37.0-47.0) % MCV 91.9 (81.0-99.0) fL MCH 28.0 (27.0-31.0) pg MCHC 30.5 L (32.0-36.0) g/dL RDW 15.9 H (12.0-15.0) % Plt Count 255 (130-450) 10^3/uL MPV 11.2 H (7.9-10.8) fL Neut # (Auto) 5.9 (1.5-6.6) 10^3/uL Lymph # (Auto) 2.3 (1.5-3.5) 10^3/uL Hart # (Auto) 0.6 (0.0-1.0) 10^3/uL Eos # (Auto) 0.0 (0.0-0.7) 10^3/uL Baso # (Auto) 0.1 (0.0-0.1) 10^3/uL Absolute Nucleated RBC 0.00 x10^3/uL Nucleated RBC % 0.0 /100WBC Sodium 138 (135-145) mmol/L Potassium 4.8 (3.5-5.0) mmol/L Chloride 101 (101-111) mmol/L Carbon Dioxide 27 (21-32) mmol/L Anion Gap 10.0 (6-13) BUN 21 H (6-20) mg/dL Creatinine 1.1 H (0.4-1.0) mg/dL Estimated GFR (MDRD) 50 L (>89) Glucose 133 H (70-100) mg/dL Calcium 9.6 (8.5-10.3) mg/dL Assessment/Plan - Problem List (1) Metaphyseal fracture of bone of right lower extremity Impression: Subsequent encounter, closed fracture, with routine healing She cannot remember how she fell at home before this current ER presentation. She was again encephalopathic, confused, and she needed to be admitted for Rhabdomyolysis, this time. When PT started working with her they noticed that she was only toe touching on the right side, could bear weight because her right knee hurts. The right knee has swelling and warmth but no redness. It is hard for her to straighten the R leg or to bend it excessively. At admission there were x-rays done of the right foot, left wrist and LS-spine but not the right knee. We obtained x-rays of R knee after she was admitted>> many abnormalities seen. Ortho input was awaited, since we had no Ortho service from 05/06/22 thru 05/20/22, until 05/21/22. She ended up going to CT for evaluation and the comminuted distal femoral fracture was diagnosed. We are now struggling on how to handle this. She does not like the hinged knee brace. It is going to slow her down with regards to rehab. Orthopedics is in the midst of negotiating what they can use on her. This is not changed. She is very resistant to having a brace on, and physical therapy is trying to work with her on partial weightbearing status to improve her mobility. Plan:Will continue with NSAIDs scheduled, not just prn, for pain control, She may end up needing a cast if she cannot tolerate a hinged brace. Give her a liter of IV fluids since she appears to be behind in her p.o. intake. (2) Frequent falls Impression: Per pt's story she slipped and fell on some milk this time. Has a history of frequent falls, prior back pain, ankle pain. History of back and ankle surgery. Xrays obtained in ED were negative for fractures. PT noticed that she was only toe touching on the right leg, could not bear weight because her right knee hurt. She does not have aortic stenosis, orthostatic hypotension, arrhythmia, anemia that would cause these frequent falls. Plan: PT/OT Can resume. She is weightbearing as tolerated. (3) History of seizures Impression: Per EMR was on keppra several admissions ago. Has presented to ED with delirium, etiology uncertain, UTI, dehydration, post-ictal. Plan: continue restarted keppra (4) Cognitive impairment Impression: Last recent hospitalization 1 week ago had a SLUMS test done by OT. Score 11/30, indicating severly cognitively impaired, staff was not sure if she was actively participating to make that an accurate score. The impression we got was that she was irritated with all of this and was throwing us out of the room and did not want to cooperate with questions. During this admission, she has agreed to go to [facility] and [facility]. Plan: Social work is working on this placement (5) Coronary artery disease Impression: hx of [place] Plan: continue restarted b-briseida and baby aspirin daily, restarted her statin therapy Qualifiers: Coronary Disease-Associated Artery/Lesion type: [place] artery [place] vs. transplanted heart: [place] heart Associated angina: without angina Qualified Code(s): I25.10 - Atherosclerotic heart disease of [place] coronary artery without angina pectoris (6) Chronic HFrEF (heart failure with reduced ejection fraction) Impression: EF 35-40% by ECHO in 12/2021 Plan: b-briseida restarted, ARB restarted, restart spironolactone, no volume overload. (7) Altered mental status Impression: Resolved Has had several hospitalizations in past month, etiology felt to be post-ictal, dehydration, infectious Qualifiers: Altered mental status type: disorientation Qualified Code(s): R41.0 - Disorientation, unspecified (8) Rhabdomyolysis Impression: Resolved CK improved now in the 700s after IV fluids, taking good po intake now Qualifiers: Rhabdomyolysis type: non-traumatic Qualified Code(s): M62.82 - Rhabdomyolys is (9) Hypothyroidism Impression: high TSH 7.51 this admission. Plan: synthroid restarted, check free T4, and TSH again in 4-6 weeks. Qualifiers: Hypothyroidism type: unspecified Qualified Code(s): E03.9 - Hypothyroidism, unspecified (10) HTN (hypertension) Impression: History of HTN, has been normotensive this admission Plan: monitor for HTN SBP>140 Qualifiers: Hypertension type: primary hypertension Qualified Code(s): I10 - Essential (primary) hypertension (11) Hyperlipidemia Impression: Plan: check HDL, LDL, triglycerides, don't have those labs this admission Qualifiers: Hyperlipidemia type: unspecified Qualified Code(s): E78.5 - Hyperlipidemia, unspecified (12) Hypernatremia Impression: Resolved check labs in am. (13) Hypokalemia Impression: Resolved with replacement. check labs in am. (14) Hx of multiple sclerosis Impression: Has hx of MS, not receiving treatment for it at this time.
--- NOTE | 2022-05-24 14:18 | PROVIDER PROGRESS NOTE ---
Subjective - General Admit Date: 05/14/22 - Other Other Information/Narrative: Alert, lying in bed semirecumbent States she is tolerating the splint but still has some right knee pain She has no acute concerns She reports she was up to chair earlier today. Objective - Patient Data Vital Signs: Vital Signs x48h Temp Pulse Resp BP Pulse Ox 05/24/22 08:34 36.6 C 65 18 117/63 94 Intake & Output: Intake and Output Totals x24h 05/22/22 05/23/22 05/24/22 23:59 23:59 23:59 Intake Total 1340 740 340 Output Total 3300 2150 2300 Balance -1959 -141 -1959 - Lab Results Lab Results: 05/24/22 09:01 05/24/22 09:01 Other Lab Results: Lab Results x24hrs 05/24/22 05/24/22 Range/Units 09:01 09:01 WBC 8.9 (4.8-10.8) x10^3/uL RBC 4.32 (4.20-5.40) 10^6/uL Hgb 12.1 (12.0-16.0) g/dL Hct 39.7 (37.0-47.0) % MCV 91.9 (81.0-99.0) fL MCH 28.0 (27.0-31.0) pg MCHC 30.5 L (32.0-36.0) g/dL RDW 15.9 H (12.0-15.0) % Plt Count 255 (130-450) 10^3/uL MPV 11.2 H (7.9-10.8) fL Neut # (Auto) 5.9 (1.5-6.6) 10^3/uL Lymph # (Auto) 2.3 (1.5-3.5) 10^3/uL [place] # (Auto) 0.6 (0.0-1.0) 10^3/uL Eos # (Auto) 0.0 (0.0-0.7) 10^3/uL Baso # (Auto) 0.1 (0.0-0.1) 10^3/uL Absolute Nucleated RBC 0.00 x10^3/uL Nucleated RBC % 0.0 /100WBC Sodium 138 (135-145) mmol/L Potassium 4.8 (3.5-5.0) mmol/L Chloride 101 (101-111) mmol/L Carbon Dioxide 27 (21-32) mmol/L Anion Gap 10.0 (6-13) BUN 21 H (6-20) mg/dL Creatinine 1.1 H (0.4-1.0) mg/dL Estimated GFR (MDRD) 50 L (>89) Glucose 133 H (70-100) mg/dL Calcium 9.6 (8.5-10.3) mg/dL - Current Medications Current Medications: Current Medications Generic Name Dose Route Start Last Admin Trade Name Freq PRN Reason Stop Dose Admin Acetaminophen 650 mg 05/14/22 15:41 05/24/22 11:56 Acetaminophen 325 Mg Tablet PO 650 mg Q4HR PRN Administration Pain 1 to 4, or Fever Aspirin 81 mg 05/16/22 09:00 05/24/22 08:45 Aspirin Ec 81 Mg Tablet PO 81 mg DAILY JIN Administration Baclofen 30 mg 05/15/22 21:00 05/24/22 08:43 Baclofen 10 Mg Tablet PO 30 mg BID JIN Administration Carboxymethylcellulose 1 drops 05/21/22 17:59 05/21/22 19:07 Carboxymethylcellulose Ophth Drops EACHEYE 1 drops PRN PRN Administration Dry Eye Carvedilol 3.125 mg 05/15/22 09:00 05/24/22 08:45 Carvedilol 3.125 Mg Tablet PO 3.125 mg BID JIN Administration Cholecalciferol 50 mcg 05/21/22 12:00 05/24/22 10:41 Cholecalciferol 25 Mcg Tablet PO 50 mcg DAILY JIN Administration Diclofenac Sodium 75 mg 05/18/22 21:00 05/24/22 08:[address] 75 Mg Tablet PO 75 mg BID JIN Administration Docusate Sodium 250 - 500 mg 05/18/22 09:00 05/24/22 08:43 Docusate Sodium 250 Mg Capsule PO 250 mg DAILY JIN Administration Enoxaparin Sodium 40 mg 05/15/22 09:00 05/24/22 08:43 Enoxaparin 40 Mg/0.4 Ml Syringe SUBQ 40 mg DAILY JIN Administration Fluticasone Propionate 1 sprays 05/15/22 08:38 05/19/22 13:09 Fluticasone Nasal [place] WILLIE 1 sprays BID PRN Administration Nasal Congestion Levetiracetam 500 mg 05/15/22 21:00 05/24/22 08:45 Levetiracetam 250 Mg Tablet PO 500 mg BID JIN Administration Levothyroxine Sodium 50 mcg 05/16/22 07:00 05/24/22 06:16 Levothyroxine 25 Mcg Tablet PO 50 mcg QDAC IJN Administration Losartan Potassium 12.5 mg 05/15/22 09:00 05/24/22 08:45 Losartan 50 Mg Tablet PO 12.5 mg DAILY JIN Administration Nystatin 1 applic 05/15/22 21:00 05/24/22 10:32 Nystatin Powder 15 Gm TOP Not Given BID JIN Oxycodone HCl 5 mg 05/14/22 15:41 05/24/22 11:55 Oxycodone 5 Mg Tablet PO 5 mg Q4HR PRN Administration Pain 5 to 7 Pantoprazole Sodium 40 mg 05/18/22 21:00 05/24/22 10:41 Pantoprazole 40 Mg Tablet PO 40 mg BID JIN Administration Polyethylene Glycol 17 gm 05/17/22 12:00 05/24/22 08:46 Polyethylene Glycol 3350 17 Gm Packet PO Not Given DAILY JIN Senna 8.6 - 17.2 mg 05/18/22 09:00 05/24/22 08:45 Senna 8.6 Mg Tablet PO 8.6 mg DAILY JIN Administration - Physical Exam Comments/Other: Right knee remains in a splint and some extension. Splint appears intact. She is neurovascular intact to the right lower extremity. She is in no acute distress. She appears more comfortable today. Impression/Plan - Problem List Problem List: 66-year-old female who presented to the emergency department on 05/14/2022 after being found down after a fall. She was admitted for metabolic encephalopathy, acute kidney injury and frequent falls. On day 8 of admission she was found to have a minimally displaced supracondylar fracture of the right distal femur. Orthopedics is following the patient for management of supracondylar fracture. She tolerated the splint for 24 hours. She reportedly has been up to chair and continues to be toe-touch weightbearing with physical therapy and Occupational Therapy to the right lower extremity. Splint appears tolerable and there is been no sharp increases the pain. She continues to be neurovascularly intact to the splinted extremity, no increase in pain or concern for compartment syndrome. Plan: -Continue nonoperative management for minimally displaced supracondylar fracture right distal femur -Continue physical therapy and Occupational Therapy with toe-touch weightbearing to right lower extremity -Pain management per hospitalist physician -Disposition pending social work assessment and placement
[2022-05-24] MEDS ORDERED: SODIUM CHLORIDE 0.9% 1,000 ML IV SCH (15:00)
[2022-05-25] MEDS: LEVOTHYROXINE 25 MCG TABLET PO SCH (06:18)
[2022-05-25] MEDS: PANTOPRAZOLE 40 MG TABLET PO SCH ×2 (08:28→20:13)
[2022-05-25] MEDS: ENOXAPARIN 40 MG/0.4 ML SYRINGE SUBQ SCH (08:28)
[2022-05-25] MEDS: ASPIRIN EC 81 MG TABLET PO SCH (08:28)
[2022-05-25] MEDS: BACLOFEN 10 MG TABLET PO SCH ×2 (08:29→20:13)
[2022-05-25] MEDS: carvediloL 3.125 MG TABLET PO SCH ×2 (08:29→20:14)
[2022-05-25] MEDS: LOSARTAN 50 MG TABLET PO SCH (08:29)
[2022-05-25] MEDS: DOCUSATE SODIUM 250 MG CAPSULE PO SCH (08:29)
[2022-05-25] MEDS: DICLOFENAC SODIUM DR 75 MG TABLET PO SCH ×2 (08:29→20:19)
[2022-05-25] MEDS: SENNA 8.6 MG TABLET PO SCH (08:29)
[2022-05-25] MEDS: oxyCODONE 5 MG TABLET PO PRN ×4 (08:30→21:25)
[2022-05-25] MEDS: polyethylene glycoL 3350 17 GM PACKET PO SCH (08:30)
[2022-05-25] MEDS: levETIRAcetam 250 MG TABLET PO SCH ×2 (08:30→20:13)
[2022-05-25] MEDS: CHOLECALCIFEROL 25 MCG TABLET PO SCH (08:30)
[2022-05-25] MEDS: NYSTATIN POWDER 15 GM TOP SCH ×2 (11:17→20:19)
--- NOTE | 2022-05-25 12:02 | PROVIDER PROGRESS NOTE ---
Progress Note May 25, 2022 11:59 AM Carole has no new complaints. Really gets irritated when we try and encourage her to stand using the brace. She did work with physical therapy a little bit yesterday. Eating her food well. Denies any chest pain, shortness of breath. She does not remember talking about her chest taking this from yesterday. I started her on IV fluids yesterday and gave her 1 L. We will check labs again tomorrow. Active Medications Acetaminophen (Acetaminophen 325 Mg Tablet) 650 mg PO Q4HR PRN PRN Reason: Pain 1 to 4, or Fever Last Admin: 05/24/22 18:30 Dose: 650 mg Aspirin (Aspirin Ec 81 Mg Tablet) 81 mg PO DAILY [facility] Last Admin: 05/25/22 08:28 Dose: 81 mg Baclofen (Baclofen 10 Mg Tablet) 30 mg PO BID [facility] Last Admin: 05/25/22 08:29 Dose: 30 mg Carboxymethylcellulose (Carboxymethylcellulose Ophth Drops) 1 drops EACHEYE PRN PRN PRN Reason: Dry Eye Last Admin: 05/21/22 19:07 Dose: 1 drops Carvedilol (Carvedilol 3.125 Mg Tablet) 3.125 mg PO BID [facility] Last Admin: 05/25/22 08:29 Dose: 3.125 mg Cholecalciferol (Cholecalciferol 25 Mcg Tablet) 50 mcg PO DAILY [facility] Last Admin: 05/25/22 08:30 Dose: 50 mcg Diclofenac Sodium (Diclofenac Sodium Dr 75 Mg Tablet) 75 mg PO BID [facility] Last Admin: 05/25/22 08:29 Dose: 75 mg Docusate Sodium (Docusate Sodium 250 Mg Capsule) 250 - 500 mg PO DAILY [facility] Last Admin: 05/25/22 08:29 Dose: 250 mg Enoxaparin Sodium (Enoxaparin 40 Mg/0.4 Ml Syringe) 40 mg SUBQ DAILY [facility] Last Admin: 05/25/22 08:28 Dose: 40 mg Fluticasone Propionate (Fluticasone Nasal [place]) 1 sprays WILLIE BID PRN PRN Reason: Nasal Congestion Last Admin: 05/19/22 13:09 Dose: 1 sprays Levetiracetam (Levetiracetam 250 Mg Tablet) 500 mg PO BID [facility] Last Admin: 05/25/22 08:30 Dose: 500 mg Levothyroxine Sodium (Levothyroxine 25 Mcg Tablet) 50 mcg PO QDAC [facility] Last Admin: 05/25/22 06:18 Dose: 50 mcg Losartan Potassium (Losartan 50 Mg Tablet) 12.5 mg PO DAILY [facility] Last Admin: 05/25/22 08:29 Dose: 12.5 mg Nystatin (Nystatin Powder 15 Gm) 1 applic TOP BID [facility] Last Admin: 05/25/22 11:17 Dose: Not Given Ondansetron HCl (Ondansetron Odt 4 Mg Tablet) 4 mg TL Q6HR PRN PRN Reason: Nausea / Vomiting Ondansetron HCl (Ondansetron 4 Mg/2 Ml Vial) 4 mg IVP Q6HR PRN PRN Reason: Nausea / Vomiting Oxycodone HCl (Oxycodone 5 Mg Tablet) 5 mg PO Q4HR PRN PRN Reason: Pain 5 to 7 Last Admin: 05/25/22 08:30 Dose: 5 mg Pantoprazole Sodium (Pantoprazole 40 Mg Tablet) 40 mg PO BID [facility] Last Admin: 05/25/22 08:28 Dose: 40 mg Polyethylene Glycol (Polyethylene Glycol 3350 17 Gm Packet) 17 gm PO DAILY [facility] Last Admin: 05/25/22 08:30 Dose: 17 gm Senna (Senna 8.6 Mg Tablet) 8.6 - 17.2 mg PO DAILY [facility] Last Admin: 05/25/22 08:29 Dose: 8.6 mg Exam: Temperature is 36.3. Heart rate 64. Blood pressure 117/65. Respirations 18. 96% on room air. 5 feet 2 inches tall, 70.5 kg Short stocky female with a loud voice. Neck is supple. No rigidity. Lungs are clear without crackles rhonchi wheezing. Regular rate and rhythm. Abdomen soft, obese, nontender. Normal bowel sounds. Last bowel movement yesterday. Extremities without edema Assessment/Plan as we await placement for her. No new problems. Observation status since 05/14/22 15:41 (1) Metaphyseal fracture of bone of right lower extremity identified during this stay Impression: Subsequent encounter, closed fracture, with routine healing She cannot remember how she fell at home before this current ER presentation. She was again encephalopathic, confused, and she needed to be admitted for Rhabdomyolysis, this time. When PT started working with her they noticed that she was only toe touching on the right side, could bear weight because her right knee hurts. The right knee has swelling and warmth but no redness. It is hard for her to straighten the R leg or to bend it excessively. At admission there were x-rays done of the right foot, left wrist and LS-spine but not the right knee. We obtained x-rays of R knee after she was admitted>> many abnormalities seen. Ortho input was awaited, since we had no Ortho service from 05/06/22 thru 05/20/22, until 05/21/22. She ended up going to CT for evaluation and the comminuted distal femoral fracture was diagnosed. We are now struggling on how to handle this. She does not like the hinged knee brace. It is going to slow her down with regards to rehab. Orthopedics is in the midst of negotiating what they can use on her. Orthopedics is following the patient. She is toe-touch weightbearing with physical therapy and Occupational Therapy. Splint is being tolerated for the last 24 hours. They want us to continue nonoperative management for minimally displaced supracondylar fracture right distal femur. Continue PT and OT with toe-touch weightbearing. Plan:Will continue with NSAIDs scheduled, not just prn, for pain control, She may end up needing a cast if she cannot tolerate a hinged brace. I gave her a liter of IV fluids 05/24 since she appears to be behind in her p.o. intake. Check labs in am. (2) Frequent falls at home Impression: Per pt's story she slipped and fell on some milk this time. Has a history of frequent falls, prior back pain, ankle pain. History of back and ankle surgery. Xrays obtained in ED were negative for fractures. PT noticed that she was only toe touching on the right leg, could not bear weight because her right knee hurt. She does not have aortic stenosis, orthostatic hypotension, arrhythmia, anemia that would cause these frequent falls. Plan: PT/OT working w her. She is weightbearing as tolerated. (3) History of seizures Impression: Per EMR was on keppra several admissions ago. Has presented to ED with delirium, etiology uncertain, UTI, dehydration, post-ictal. Plan: continue restarted keppra (4) Cognitive impairment Impression: Last recent hospitalization 1 week ago had a SLUMS test done by OT. Score /30, indicating severly cognitively impaired, staff was not sure if she was actively participating to make that an accurate score. The impression we got was that she was irritated with all of this and was throwing us out of the room and did not want to cooperate with questions. During this admission, she has agreed to go to long term care administrator placement and want to go to [facility]. Plan: Social work is working on this placement (5) Coronary artery disease Impression: hx of [place] Plan: continue restarted b-briseida and baby aspirin daily, restarted her statin therapy Qualifiers: Coronary Disease-Associated Artery/Lesion type: [place] artery [place] vs. transplanted heart: [place] heart Associated angina: without angina Qualified Code(s): I25.10 - Atherosclerotic heart disease of [place] coronary artery without angina pectoris (6) Chronic HFrEF (heart failure with reduced ejection fraction) Impression: EF 35-40% by ECHO in 12/2021 Plan: b-briseida restarted, ARB restarted, restart spironolactone, no volume overload. (7) Altered mental status Impression: Resolved Has had several hospitalizations in past month, etiology felt to be post-ictal, dehydration, infectious Qualifiers: Altered mental status type: disorientation Qualified Code(s): R41.0 - Disorientation, unspecified (8) Rhabdomyolysis Impression: Resolved CK improved now in the 700s after IV fluids, taking good po intake now Qualifiers: Rhabdomyolysis type: non-traumatic Qualified Code(s): M62.82 - Rhabdomyolysis (9) Hypothyroidism Impression: high TSH 7.51 this admission. Plan: synthroid restarted, check free T4, and TSH again in 4-6 weeks. Qualifiers: Hypothyroidism type: unspecified Qualified Code(s): E03.9 - Hypothyroidism, unspecified (10) HTN (hypertension) Impression: History of HTN, has been normotensive this admission Plan: monitor for HTN SBP>140 Qualifiers: Hypertension type: primary hypertension Qualified Code(s): I10 - Essential (primary) hypertension (11) Hyperlipidemia Impression: Plan: check HDL, LDL, triglycerides, don't have those labs this admission Qualifiers: Hyperlipidemia type: unspecified Qualified Code(s): E78.5 - Hyperlipidemia, unspecified (12) Hypernatremia Impression: Resolved check labs in am. (13) Hypokalemia Impression: Resolved with replacement. check labs in am. (14) Hx of multiple sclerosis Impression: Has hx of MS, not receiving treatment for it at this time.
[2022-05-25] MEDS: ACETAMINOPHEN 325 MG TABLET PO PRN ×2 (13:17→17:28)
[2022-05-26] MEDS: oxyCODONE 5 MG TABLET PO PRN ×4 (01:46→22:57)
[2022-05-26 05:18] LABS: CALCIUM 9.2 mg/dL (8.5-10.3); CREATININE 1.4 mg/dL (0.4-1.0); POTASSIUM 4.5 mmol/L (3.5-5.0)
[2022-05-26] MEDS: LEVOTHYROXINE 25 MCG TABLET PO SCH (06:38)
[2022-05-26] MEDS: ASPIRIN EC 81 MG TABLET PO SCH (09:28)
[2022-05-26] MEDS: PANTOPRAZOLE 40 MG TABLET PO SCH ×2 (09:28→21:29)
[2022-05-26] MEDS: levETIRAcetam 250 MG TABLET PO SCH ×2 (09:28→21:29)
[2022-05-26] MEDS: polyethylene glycoL 3350 17 GM PACKET PO SCH (09:28)
[2022-05-26] MEDS: SENNA 8.6 MG TABLET PO SCH (09:28)
[2022-05-26] MEDS: DICLOFENAC SODIUM DR 75 MG TABLET PO SCH ×2 (09:28→21:29)
[2022-05-26] MEDS: carvediloL 3.125 MG TABLET PO SCH ×2 (09:28→21:23)
[2022-05-26] MEDS: CHOLECALCIFEROL 25 MCG TABLET PO SCH (09:29)
[2022-05-26] MEDS: DOCUSATE SODIUM 250 MG CAPSULE PO SCH (09:29)
[2022-05-26] MEDS: LOSARTAN 50 MG TABLET PO SCH (09:29)
[2022-05-26] MEDS: BACLOFEN 10 MG TABLET PO SCH ×2 (09:29→21:28)
[2022-05-26] MEDS: ENOXAPARIN 40 MG/0.4 ML SYRINGE SUBQ SCH (09:30)
[2022-05-26] MEDS: NYSTATIN POWDER 15 GM TOP SCH ×2 (09:31→21:31)
[2022-05-26] MEDS: SODIUM CHLORIDE 0.9% 1,000 ML IV SCH ×2 (10:37→19:05)
[2022-05-26] MEDS: ACETAMINOPHEN 325 MG TABLET PO PRN ×2 (17:11→22:54)
--- NOTE | 2022-05-26 17:39 | PROVIDER PROGRESS NOTE ---
Progress Note May 26, 2022 5:36 PM No new complaints. Very awake today. Very interactive. No new complaints. Medications have been unchanged for several days. Temperature is 36.4. Heart rate 67. Blood pressure 101/40, and respirations are 16, 94% on room air. She has been eating anywhere from 25 to 100% of her food. Intake is been about 740 cc of fluids or 690 cc. Nevertheless creatinine is rising. Neck is supple Lungs are clear. She is able to speak in her usual loud voice without any tachypnea or respiratory distress. Regular rate and rhythm Abdomen is soft, nontender and bowel movement was May 26, today. She is incontinent of urine and has a pure wick as well as a brief period Skin has resolving redness and yeast changes underneath her breast buttock, and intertriginous folds. She has some mild generalized weakness but full range of motion on extremities. BUN is 35, creatinine 1.4. It is higher than it was yesterday. Assessment/Plan as we await placement for her. Observation status since 05/14/22 15:41 New problem (1) acute kidney insufficiency I am not quite clear why her renal function is deteriorating. While she is not drinking a tremendous amount of fluid she is drinking. She is eating. Bladder scan does not show obstruction or retention. We will give 2 more liters of IV fluids today and recheck BUN/creatinine tomorrow. Chronic or resolved problems (2) Metaphyseal fracture of bone of right lower extremity identified during this stay Impression: Subsequent encounter, closed fracture, with routine healing She cannot remember how she fell at home before this current ER presentation. She was again encephalopathic, confused, and she needed to be admitted for Rhabdomyolysis, this time. When PT started working with her they noticed that she was only toe touching on the right side, could bear weight because her right knee hurts. The right knee has swelling and warmth but no redness. It is hard for her to straighten the R leg or to bend it excessively. At admission there were x-rays done of the right foot, left wrist and LS-spine but not the right knee. We obtained x-rays of R knee after she was admitted>> many abnormalities seen. Ortho input was awaited, since we had no Ortho service from 05/06/22 thru 05/20/22, until 05/21/22. She ended up going to CT for evaluation and the comminuted distal femoral fracture was diagnosed. We are now struggling on how to handle this. She does not like the hinged knee brace. It is going to slow her down with regards to rehab. Orthopedics is in the midst of negotiating what they can use on her. Orthopedics is following the patient. She is toe-touch weightbearing with physical therapy and Occupational Therapy. Splint is being tolerated for the last 24 hours. They want us to continue nonoperative management for minimally displaced supracondylar fracture right distal femur. Continue PT and OT with toe-touch weightbearing. Plan:Will continue with NSAIDs scheduled, not just prn, for pain control, She may end up needing a cast if she cannot tolerate a hinged brace. I gave her a liter of IV fluids 05/24 since she appears to be behind in her p.o. intake. Check labs in am. (3) Frequent falls at home Impression: Per pt's story she slipped and fell on some milk this time. Has a history of frequent falls, prior back pain, ankle pain. History of back and ankle surgery. Xrays obtained in ED were negative for fractures. PT noticed that she was only toe touching on the right leg, could not bear weight because her right knee hurt. She does not have aortic stenosis, orthostatic hypotension, arrhythmia, anemia that would cause these frequent falls. Plan: PT/OT working w her. She is weightbearing as tolerated. (4) History of seizures Impression: Per EMR was on keppra several admissions ago. Has presented to ED with delirium, etiology uncertain, UTI, dehydration, post-ictal. Plan: continue restarted keppra (5) Cognitive impairment Impression: Last recent hospitalization 1 week ago had a SLUMS test done by OT. Score 11/30, indicating severly cognitively impaired, staff was not sure if she was actively participating to make that an accurate score. The impression we got was that she was irritated with all of this and was throwing us out of the room and did not want to cooperate with questions. During this admission, she has agreed to go to intermediate manager placement and want to go [facility]. Plan: Social work is working on this placement (6) Coronary artery disease Impression: hx of [place] Plan: continue restarted b-briseida and baby aspirin daily, restarted her statin therapy Qualifiers: Coronary Disease-Associated Artery/Lesion type: [place] artery [place] vs. transplanted heart: [place] heart Associated angina: without angina Qualified Code(s): I25.10 - Atherosclerotic heart disease of [place] coronary artery without angina pectoris (7) Chronic HFrEF (heart failure with reduced ejection fraction) Impression: EF 35-40% by ECHO in 12/2021 Plan: b-briseida restarted, ARB restarted, restart spironolactone, no volume overload. (8) Altered mental status Impression: Resolved Has had several hospitalizations in past month, etiology felt to be post-ictal, dehydration, infectious Qualifiers: Altered mental status type: disorientation Qualified Code(s): R41.0 - Disorientation, unspecified (9) Rhabdomyolysis Impression: Resolved CK improved now in the 700s after IV fluids, taking good po intake now Qualifiers: Rhabdomyolysis type: non-traumatic Qualified Code(s): M62.82 - Rhabdomyolysis (10) Hypothyroidism Impression: high TSH 7.51 this admission. Plan: synthroid restarted, check free T4, and TSH again in 4-6 weeks. Qualifiers: Hypothyroidism type: unspecified Qualified Code(s): E03.9 - Hypothyroidism, unspecified (11) HTN (hypertension) Impression: History of HTN, has been normotensive this admission Plan: monitor for HTN SBP>140 Qualifiers: Hypertension type: primary hypertension Qualified Code(s): I10 - Essential (primary) hypertension (12) Hyperlipidemia Impression: Plan: check HDL, LDL, triglycerides, don't have those labs this admission Qualifiers: Hyperlipidemia type: unspecified Qualified Code(s): E78.5 - Hyperlipidemia, unspecified (13) Hypernatremia Impression: Resolved check labs in am. (14) Hypokalemia Impression: Resolved with replacement. check labs in am. (15) Hx of multiple sclerosis Impression: Has hx of MS, not receiving treatment for it at this time.
[2022-05-27] MEDS: oxyCODONE 5 MG TABLET PO PRN ×3 (04:37→21:05)
[2022-05-27] MEDS: LEVOTHYROXINE 25 MCG TABLET PO SCH (05:28)
[2022-05-27 08:20] LABS: CALCIUM 9.1 mg/dL (8.5-10.3); CREATININE 1.1 mg/dL (0.4-1.0); POTASSIUM 4.9 mmol/L (3.5-5.0)
[2022-05-27] MEDS: DOCUSATE SODIUM 250 MG CAPSULE PO SCH (08:24)
[2022-05-27] MEDS: BACLOFEN 10 MG TABLET PO SCH ×2 (08:24→21:04)
[2022-05-27] MEDS: SENNA 8.6 MG TABLET PO SCH (08:24)
[2022-05-27] MEDS: PANTOPRAZOLE 40 MG TABLET PO SCH ×2 (08:24→21:05)
[2022-05-27] MEDS: CHOLECALCIFEROL 25 MCG TABLET PO SCH (08:25)
[2022-05-27] MEDS: carvediloL 3.125 MG TABLET PO SCH ×2 (08:26→21:07)
[2022-05-27] MEDS: ASPIRIN EC 81 MG TABLET PO SCH (08:26)
[2022-05-27] MEDS: DICLOFENAC SODIUM DR 75 MG TABLET PO SCH ×2 (08:26→21:04)
[2022-05-27] MEDS: LOSARTAN 50 MG TABLET PO SCH (08:26)
[2022-05-27] MEDS: polyethylene glycoL 3350 17 GM PACKET PO SCH (08:27)
[2022-05-27] MEDS: ENOXAPARIN 40 MG/0.4 ML SYRINGE SUBQ SCH (08:27)
[2022-05-27] MEDS: NYSTATIN POWDER 15 GM TOP SCH ×2 (08:28→21:08)
[2022-05-27] MEDS: levETIRAcetam 250 MG TABLET PO SCH ×2 (08:30→21:04)
--- NOTE | 2022-05-27 11:44 | PROVIDER PROGRESS NOTE ---
Progress Note May 27, 2022 11:35 AM No new events. No new complaints. Her knee still bothers her but it seems to be less and less of a problem as time is gone on. I gave her 2 L of fluid because her creatinine was bumping. She been 0.8 and then it got as high as 1.4. I have given her 2 L between yesterday and today and creatinine is down to 1.1. Urine output was 550 cc yesterday. As of midnight last night she is 500 cc. Active Medications Acetaminophen (Acetaminophen 325 Mg Tablet) 650 mg PO Q4HR PRN PRN Reason: Pain 1 to 4, or Fever Last Admin: 05/26/22 22:54 Dose: 650 mg Aspirin (Aspirin Ec 81 Mg Tablet) 81 mg PO DAILY [facility] Last Admin: 05/27/22 08:26 Dose: 81 mg Baclofen (Baclofen 10 Mg Tablet) 30 mg PO BID [facility] Last Admin: 05/27/22 08:24 Dose: 30 mg Carboxymethylcellulose (Carboxymethylcellulose Ophth Drops) 1 drops EACHEYE PRN PRN PRN Reason: Dry Eye Last Admin: 05/21/22 19:07 Dose: 1 drops Carvedilol (Carvedilol 3.125 Mg Tablet) 3.125 mg PO BID [facility] Last Admin: 05/27/22 08:26 Dose: 3.125 mg Cholecalciferol (Cholecalciferol 25 Mcg Tablet) 50 mcg PO DAILY [facility] Last Admin: 05/27/22 08:25 Dose: 50 mcg Diclofenac Sodium (Diclofenac Sodium Dr 75 Mg Tablet) 75 mg PO BID [facility] Last Admin: 05/27/22 08:26 Dose: 75 mg Docusate Sodium (Docusate Sodium 250 Mg Capsule) 250 - 500 mg PO DAILY [facility] Last Admin: 05/27/22 08:24 Dose: 500 mg Enoxaparin Sodium (Enoxaparin 40 Mg/0.4 Ml Syringe) 40 mg SUBQ DAILY [facility] Last Admin: 05/27/22 08:27 Dose: 40 mg Fluticasone Propionate (Fluticasone Nasal [place]) 1 sprays WILLIE BID PRN PRN Reason: Nasal Congestion Last Admin: 05/19/22 13:09 Dose: 1 sprays Levetiracetam (Levetiracetam 250 Mg Tablet) 500 mg PO BID [facility] Last Admin: 05/27/22 08:30 Dose: 500 mg Levothyroxine Sodium (Levothyroxine 25 Mcg Tablet) 50 mcg PO QDAC [facility] Last Admin: 05/27/22 05:28 Dose: 50 mcg Losartan Potassium (Losartan 50 Mg Tablet) 12.5 mg PO DAILY [facility] Last Admin: 05/27/22 08:26 Dose: 12.5 mg Nystatin (Nystatin Powder 15 Gm) 1 applic TOP BID [facility] Last Admin: 05/27/22 08:28 Dose: 1 applic Ondansetron HCl (Ondansetron Odt 4 Mg Tablet) 4 mg TL Q6HR PRN PRN Reason: Nausea / Vomiting Ondansetron HCl (Ondansetron 4 Mg/2 Ml Vial) 4 mg IVP Q6HR PRN PRN Reason: Nausea / Vomiting Oxycodone HCl (Oxycodone 5 Mg Tablet) 5 mg PO Q4HR PRN PRN Reason: Pain 5 to 7 Last Admin: 05/27/22 04:37 Dose: 5 mg Pantoprazole Sodium (Pantoprazole 40 Mg Tablet) 40 mg PO BID [facility] Last Admin: 05/27/22 08:24 Dose: 40 mg Polyethylene Glycol (Polyethylene Glycol 3350 17 Gm Packet) 17 gm PO DAILY [facility] Last Admin: 05/27/22 08:27 Dose: 17 gm Senna (Senna 8.6 Mg Tablet) 8.6 - 17.2 mg PO DAILY [facility] Last Admin: 05/27/22 08:24 Dose: 17.2 mg Losartan Potassium 12.5 mg PO DAILY 04/03/22 Fluticasone [Flonase] 1 sprays WILLIE BID PRN 04/20/22 carvediloL [Coreg] 3.125 mg PO BID 04/20/22 Acetaminophen [Acetaminophen Extra Strength] 1,000 mg PO TID PRN 04/24/[address] [Voltaren] 1 tab PO BID PRN 04/24/22 Spironolactone [Aldactone] 12.5 mg PO DAILY 05/09/22 Levetiracetam [Keppra] 500 mg PO BID 05/15/22 Levothyroxine Sodium 50 mcg PO DAILY 05/15/22 Exam: Temperature is 36.7. Heart rate 78. Blood pressure 122/58. However nursing notes that 1130 yesterday morning and at 415 yesterday afternoon her right arm was in the 80s systolic whereas her left arm was 92 and 101. Respirations of 16. 97% room air. Carole speaks in a loud voice. Can appear quite cranky but when you ask her why she is yelling she says she has no idea what you are talking about because she does not realize she is yelling. Neck is supple. Lungs are clear. Regular rate and rhythm. Abdomen is soft, nontender By now she does not want me to touch her anymore. She is in a bad mood. And the knee is with a slight effusion, but no redness or heat. She last work with PT on May 25. We do not have PT on Saturdays or Saturday. Today is Saturday. She is able to complete bed mobility by rolling from side to side, then transitions to a semisupine to an unsupported short sitting. However she requires a mod assist x2 to sit. Her right lower extremity really bothers her. She needs a lot of tactile and verbal cues. She is able to then sit on her own with minimum assist after that. She needs a max assist x2 for sit to stand with cueing. She is able to complete a limited squat pivot to transfer to recliner and to a toilet. Sodium 139. Potassium 4.9. BUN 32, creatinine 1.1. Assessment/Plan as we await placement for her. Observation status since 05/14/22 15:41 New problem (1) acute kidney insufficiency I am not quite clear why her renal function is deteriorating. While she is not drinking a tremendous amount of fluid she is drinking. She is eating. Bladder scan does not show obstruction or retention. I gave 2 more liters of IV fluids 05/26 and recheck BUN/creatinine today shows improvement. Chronic or resolved problems (2) Metaphyseal fracture of bone of right lower extremity identified during this stay Impression: Subsequent encounter, closed fracture, with routine healing She cannot remember how she fell at home before this current ER presentation. She was again encephalopathic, confused, and she needed to be admitted for Rhabdomyolysis, this time. When PT started working with her they noticed that she was only toe touching on the right side, could bear weight because her right knee hurts. The right knee has swelling and warmth but no redness. It is hard for her to straighten the R leg or to bend it excessively. At admission there were x-rays done of the right foot, left wrist and LS-spine but not the right knee. We obtained x-rays of R knee after she was admitted>> many abnormalities seen. Ortho input was awaited, since we had no Ortho service from 05/06/22 thru 05/20/22, until 05/21/22. She ended up going to CT for evaluation and the comminuted distal femoral fracture was diagnosed. We are now struggling on how to handle this. She does not like the hinged knee brace. It is going to slow her down with regards to rehab. Orthopedics is in the midst of negotiating what they can use on her. Orthopedics is following the patient. She is toe-touch weightbearing with ph ysical therapy and Occupational Therapy. Splint is being tolerated for the last 24 hours. They want us to continue nonoperative management for minimally displaced supracondylar fracture right distal femur. Continue PT and OT with toe-touch weightbearing. Plan:Will continue with NSAIDs scheduled, not just prn, for pain control, She may end up needing a cast if she cannot tolerate a hinged brace. (3) Frequent falls at home Impression: Per pt's story she slipped and fell on some milk this time. Has a history of frequent falls, prior back pain, ankle pain. History of back and ankle surgery. Xrays obtained in ED were negative for fractures. PT noticed that she was only toe touching on the right leg, could not bear weight because her right knee hurt. She does not have aortic stenosis, orthostatic hypotension, arrhythmia, anemia that would cause these frequent falls. Plan: PT/OT working w her. She is weightbearing as tolerated. (4) History of seizures Impression: Per EMR was on keppra several admissions ago. Has presented to ED with delirium, etiology uncertain, UTI, dehydration, post-ictal. Plan: continue restarted keppra (5) Cognitive impairment Impression: Last recent hospitalization 1 week ago had a SLUMS test done by OT. Score 11/30, indicating severly cognitively impaired, staff was not sure if she was actively participating to make that an accurate score. The impression we got was that she was irritated with all of this and was throwing us out of the room and did not want to cooperate with questions. During this admission, she has agreed to go to [facility] placement and want to go [facility]. Plan: Social work is working on this placement (6) Coronary artery disease Impression: hx of [place] Plan: continue restarted b-briseida and baby aspirin daily, restarted her statin therapy Qualifiers: Coronary Disease-Associated Artery/Lesion type: [place] artery [place] vs. transplanted heart: [place] heart Associated angina: without angina Qualified Code(s): I25.10 - Atherosclerotic heart disease of [place] coronary artery without angina pectoris (7) Chronic HFrEF (heart failure with reduced ejection fraction) Impression: EF 35-40% by ECHO in 12/2021 Plan: b-briseida restarted, ARB restarted, restart spironolactone, no volume overload. (8) Altered mental status Impression: Resolved Has had several hospitalizations in past month, etiology felt to be post-ictal, dehydration, infectious Qualifiers: Altered mental status type: disorientation Qualified Code(s): R41.0 - Disorientation, unspecified (9) Rhabdomyolysis Impression: Resolved CK improved now in the 700s after IV fluids, taking good po intake now Qualifiers: Rhabdomyolysis type: non-traumatic Qualified Code(s): M62.82 - Rhabdomyolysis (10) Hypothyroidism Impression: high TSH 7.51 this admission. Plan: synthroid restarted, check free T4, and TSH again in 4-6 weeks. Qualifiers: Hypothyroidism type: unspecified Qualified Code(s): E03.9 - Hypothyroidism, unspecified (11) HTN (hypertension) Impression: History of HTN, has been normotensive this admission Plan: monitor for HTN SBP>140 Qualifiers: Hypertension type: primary hypertension Qualified Code(s): I10 - Essential (primary) hypertension (12) Hyperlipidemia Impression: Plan: check HDL, LDL, triglycerides, don't have those labs this admission Qualifiers: Hyperlipidemia type: unspecified Qualified Code(s): E78.5 - Hyperlipidemia, unspecified (13) Hypernatremia Impression: Resolved check labs in am. (14) Hypokalemia Impression: Resolved with replacement. check labs in am. (15) Hx of multiple sclerosis Impression: Has hx of MS, not receiving treatment for it at this time.
[2022-05-27] MEDS: ACETAMINOPHEN 325 MG TABLET PO PRN ×2 (16:48→21:05)
[2022-05-28] MEDS: LEVOTHYROXINE 25 MCG TABLET PO SCH (05:29)
[2022-05-28 06:36] LABS: CALCIUM 9.7 mg/dL (8.5-10.3); CREATININE 1.2 mg/dL (0.4-1.0); POTASSIUM 4.9 mmol/L (3.5-5.0)
[2022-05-28] MEDS: polyethylene glycoL 3350 17 GM PACKET PO SCH (09:39)
[2022-05-28] MEDS: DOCUSATE SODIUM 250 MG CAPSULE PO SCH (09:39)
[2022-05-28] MEDS: SENNA 8.6 MG TABLET PO SCH (09:40)
[2022-05-28] MEDS: ENOXAPARIN 40 MG/0.4 ML SYRINGE SUBQ SCH (10:06)
[2022-05-28] MEDS: NYSTATIN POWDER 15 GM TOP SCH ×2 (10:06→20:23)
[2022-05-28] MEDS: ACETAMINOPHEN 325 MG TABLET PO PRN (10:06)
[2022-05-28] MEDS: BACLOFEN 10 MG TABLET PO SCH ×2 (10:06→20:22)
[2022-05-28] MEDS: oxyCODONE 5 MG TABLET PO PRN ×2 (10:07→18:19)
[2022-05-28] MEDS: ASPIRIN EC 81 MG TABLET PO SCH (10:10)
[2022-05-28] MEDS: PANTOPRAZOLE 40 MG TABLET PO SCH ×2 (10:10→20:23)
[2022-05-28] MEDS: CHOLECALCIFEROL 25 MCG TABLET PO SCH (10:10)
[2022-05-28] MEDS: levETIRAcetam 250 MG TABLET PO SCH ×2 (10:10→20:23)
[2022-05-28] MEDS: DICLOFENAC SODIUM DR 75 MG TABLET PO SCH ×2 (10:10→20:23)
[2022-05-28] MEDS: LOSARTAN 50 MG TABLET PO SCH (10:14)
[2022-05-28] MEDS: carvediloL 3.125 MG TABLET PO SCH ×2 (10:14→20:23)
--- NOTE | 2022-05-28 16:09 | PROVIDER PROGRESS NOTE ---
Progress Note May 28, 2022 4:05 PM Alondra really did not like being up out of bed today. She was very annoyed that I insisted she sit up for a few hours. The managed to get her up for breakfast and for lunch and finally wanted to go back into bed. She could not tell me why. She does tell me that "I am just tired, leave me alone". She was able to participate in 23 minutes of physical therapy functional activities to improve bed mobility and independence with transfers. She refuses to wear the knee hinged brace. On the one hand she is yelling "I cannot do this, I cannot do this" when transferring but was able to do it with prompting. Active Medications Acetaminophen (Acetaminophen 325 Mg Tablet) 650 mg PO Q4HR PRN PRN Reason: Pain 1 to 4, or Fever Last Admin: 05/28/22 10:06 Dose: 650 mg Aspirin (Aspirin Ec 81 Mg Tablet) 81 mg PO DAILY [facility] Last Admin: 05/28/22 10:10 Dose: 81 mg Baclofen (Baclofen 10 Mg Tablet) 30 mg PO BID [facility] Last Admin: 05/28/22 10:06 Dose: 30 mg Carboxymethylcellulose (Carboxymethylcellulose Ophth Drops) 1 drops EACHEYE PRN PRN PRN Reason: Dry Eye Last Admin: 05/21/22 19:07 Dose: 1 drops Carvedilol (Carvedilol 3.125 Mg Tablet) 3.125 mg PO BID [facility] Last Admin: 05/28/22 10:14 Dose: 3.125 mg Cholecalciferol (Cholecalciferol 25 Mcg Tablet) 50 mcg PO DAILY [facility] Last Admin: 05/28/22 10:10 Dose: 50 mcg Diclofenac Sodium (Diclofenac Sodium Dr 75 Mg Tablet) 75 mg PO BID [facility] Last Admin: 05/28/22 10:10 Dose: 75 mg Docusate Sodium (Docusate Sodium 250 Mg Capsule) 250 - 500 mg PO DAILY [facility] Last Admin: 05/28/22 09:39 Dose: Not Given Enoxaparin Sodium (Enoxaparin 40 Mg/0.4 Ml Syringe) 40 mg SUBQ DAILY [facility] Last Admin: 05/28/22 10:06 Dose: 40 mg Fluticasone Propionate (Fluticasone Nasal [place]) 1 sprays WILLIE BID PRN PRN Reason: Nasal Congestion Last Admin: 05/19/22 13:09 Dose: 1 sprays Levetiracetam (Levetiracetam 250 Mg Tablet) 500 mg PO BID [facility] Last Admin: 05/28/22 10:10 Dose: 500 mg Levothyroxine Sodium (Levothyroxine 25 Mcg Tablet) 50 mcg PO QDAC [facility] Last Admin: 05/28/22 05:29 Dose: 50 mcg Losartan Potassium (Losartan 50 Mg Tablet) 12.5 mg PO DAILY [facility] Last Admin: 05/28/22 10:14 Dose: 12.5 mg Nystatin (Nystatin Powder 15 Gm) 1 applic TOP BID [facility] Last Admin: 05/28/22 10:06 Dose: 1 applic Ondansetron HCl (Ondansetron Odt 4 Mg Tablet) 4 mg TL Q6HR PRN PRN Reason: Nausea / Vomiting Ondansetron HCl (Ondansetron 4 Mg/2 Ml Vial) 4 mg IVP Q6HR PRN PRN Reason: Nausea / Vomiting Oxycodone HCl (Oxycodone 5 Mg Tablet) 5 mg PO Q4HR PRN PRN Reason: Pain 5 to 7 Last Admin: 05/28/22 10:07 Dose: 5 mg Pantoprazole Sodium (Pantoprazole 40 Mg Tablet) 40 mg PO BID [facility] Last Admin: 05/28/22 10:10 Dose: 40 mg Polyethylene Glycol (Polyethylene Glycol 3350 17 Gm Packet) 17 gm PO DAILY [facility] Last Admin: 05/28/22 09:39 Dose: Not Given Senna (Senna 8.6 Mg Tablet) 8.6 - 17.2 mg PO DAILY [facility] Last Admin: 05/28/22 09:40 Dose: Not Given Losartan Potassium 12.5 mg PO DAILY 04/03/22 Fluticasone [Flonase] 1 sprays WILLIE BID PRN 04/20/22 carvediloL [Coreg] 3.125 mg PO BID 04/20/22 Acetaminophen [Acetaminophen Extra Strength] 1,000 mg PO TID PRN 04/24/[address] [Voltaren] 1 tab PO BID PRN 04/24/22 Spironolactone [Aldactone] 12.5 mg PO DAILY 05/09/22 Levetiracetam [Keppra] 500 mg PO BID 05/15/22 Levothyroxine Sodium 50 mcg PO DAILY 05/15/22 Exam: Temperature is 36.3. Heart rate 67. Blood pressure 108/61. Respirations 18. 96% on room air. I gave her 2 L of fluid since she has minimal water intake. I have reminded the nurses to make sure they put water at the bedside and that she at least drinks a liter a day. Neck is supple. Lungs are clear Regular rate Abdomen soft and nontender with a bowel movement yesterday and today Extremities show some bogginess of the right knee. She does not like to weight- bear because of the fracture but will reluctantly do it with prompting. She appears to have cognitive deficits and that memory and recall are impaired. However no focal deficits. She is able to communicate effectively what hurts and does not hurt and what she wants to do or not do. Creatinine 1.2 today. Assessment/Plan as we await placement for her. Observation status since 05/14/22 15:41 New problem (1) acute kidney insufficiency I am not quite clear why her renal function is deteriorating. While she is not drinking a tremendous amount of fluid, she is drinking. She is eating. Bladder scan does not show obstruction or retention. I gave 2 more liters of IV fluids 05/26 and BUN/creat are stable. I am requesting RN push po intake. Chronic or resolved problems (2) Metaphyseal fracture of bone of right lower extremity identified during this stay Impression: Subsequent encounter, closed fracture, with routine healing She cannot remember how she fell at home before this current ER presentation. She was again encephalopathic, confused, and she needed to be admitted for Rhabdomyolysis, this time. When PT started working with her they noticed that she was only toe touching on the right side, could bear weight because her right knee hurts. The right knee has swelling and warmth but no redness. It is hard for her to straighten the R leg or to bend it excessively. At admission there were x-rays done of the right foot, left wrist and LS-spine but not the right knee. We obtained x-rays of R knee after she was admitted>> many abnormalities seen. Ortho input was awaited, since we had no Ortho service from 05/06/22 thru 05/20/22, until 05/21/22. She ended up going to CT for evaluation and the comminuted distal femoral fracture was diagnosed. We are now struggling on how to handle this. She does not like the hinged knee brace. It is going to slow her down with regards to rehab. Orthopedics is following the patient. She is toe-touch weightbearing with physical therapy and Occupational Therapy. Splint was tolerated for only 24 hours. They want us to continue nonoperative management for minimally displaced supracondylar fracture right distal femur. Continue PT and OT with toe-touch weightbearing. Plan:Will continue with NSAIDs scheduled, not just prn, for pain control, although not tolerating a splint, ortho has not put her in a cast (3) Frequent falls at home Impression: Per pt's story she slipped and fell on some milk this time. Has a history of frequent falls, prior back pain, ankle pain. History of back and ankle surgery. Xrays obtained in ED were negative for fractures. PT noticed that she was only toe touching on the right leg, could not bear weight because her right knee hurt. She does not have aortic stenosis, orthostatic hypotension, arrhythmia, anemia that would cause these frequent falls. Plan: PT/OT working w her. She is weightbearing as tolerated. (4) History of seizures Impression: Per EMR was on keppra several admissions ago. Has presented to ED with delirium, etiology uncertain, UTI, dehydration, post-ictal. Plan: continue keppra (5) Cognitive impairment Impression: Last recent hospitalization 1 week ago had a SLUMS test done by OT. Score 11/3 0, indicating severly cognitively impaired, staff was not sure if she was actively participating to make that an accurate score. The impression we got was that she was irritated with all of this and was throwing us out of the room and did not want to cooperate with questions. During this admission, she has agreed to go to senior living placement and [facility] Plan: Social work is working on this placement. It is our wait for placement that keeps her here. (6) Coronary artery disease Impression: hx of [place] Plan: continue restarted b-briseida and baby aspirin daily, restarted her statin therapy Qualifiers: Coronary Disease-Associated Artery/Lesion type: [place] artery [place] vs. transplanted heart: [place] heart Associated angina: without angina Qualified Code(s): I25.10 - Atherosclerotic heart disease of [place] coronary artery without angina pectoris (7) Chronic HFrEF (heart failure with reduced ejection fraction) Impression: EF 35-40% by ECHO in 12/2021 Plan: b-briseida restarted, ARB restarted, restart spironolactone, no volume overload. (8) Altered mental status Impression: Resolved Has had several hospitalizations in past month, etiology felt to be post-ictal, dehydration, infectious Qualifiers: Altered mental status type: disorientation Qualified Code(s): R41.0 - Disorientation, unspecified (9) Rhabdomyolysis Impression: Resolved CK improved after IV fluids, taking good po intake now Qualifiers: Rhabdomyolysis type: non-traumatic Qualified Code(s): M62.82 - Rhabdomyolysis (10) Hypothyroidism Impression: high TSH 7.51 this admission. Plan: synthroid restarted, check free T4, and TSH again in 4-6 weeks. Qualifiers: Hypothyroidism type: unspecified Qualified Code(s): E03.9 - Hypothyroidism, unspecified (11) HTN (hypertension) Impression: History of HTN, has been normotensive this admission Plan: monitor for HTN SBP>140 Qualifiers: Hypertension type: primary hypertension Qualified Code(s): I10 - Essential (primary) hypertension (12) Hyperlipidemia Impression: Plan: check HDL, LDL, triglycerides and ordered for the morning Qualifiers: Hyperlipidemia type: unspecified Qualified Code(s): E78.5 - Hyperlipidemia, unspecified (13) Hypernatremia Impression: Resolved Laboratory Tests 05/26/22 05:03 Sodium 141 Potassium 4.5 (14) Hypokalemia Impression: Resolved with replacement. check labs in am. (15) Hx of multiple sclerosis Impression: Has hx of MS, not receiving treatment for it at this time.
[2022-05-29 05:21] LABS: CHOL/HDL RATIO 7.4 (<4.4); CHOLESTEROL 251 mg/dL; HDL CHOLESTEROL 34 mg/dL; LDL CHOLESTEROL,CALCULATED 177 mg/dL; LDL/HDL RATIO 5.2 (<4.4); TRIGLYCERIDES 201 mg/dL; VLDL CHOLESTEROL 40 mg/dL
[2022-05-29] MEDS: LEVOTHYROXINE 25 MCG TABLET PO SCH (06:42)
[2022-05-29 08:26] LABS: CALCIUM 9.3 mg/dL (8.5-10.3); CREATININE 1.2 mg/dL (0.4-1.0); POTASSIUM 4.8 mmol/L (3.5-5.0)
[2022-05-29] MEDS: polyethylene glycoL 3350 17 GM PACKET PO SCH (09:08)
[2022-05-29] MEDS: ENOXAPARIN 40 MG/0.4 ML SYRINGE SUBQ SCH (09:08)
[2022-05-29] MEDS: carvediloL 3.125 MG TABLET PO SCH ×2 (09:09→21:25)
[2022-05-29] MEDS: BACLOFEN 10 MG TABLET PO SCH ×2 (09:09→21:26)
[2022-05-29] MEDS: ASPIRIN EC 81 MG TABLET PO SCH (09:09)
[2022-05-29] MEDS: PANTOPRAZOLE 40 MG TABLET PO SCH ×2 (09:09→21:25)
[2022-05-29] MEDS: CHOLECALCIFEROL 25 MCG TABLET PO SCH (09:09)
[2022-05-29] MEDS: LOSARTAN 50 MG TABLET PO SCH (09:10)
[2022-05-29] MEDS: SENNA 8.6 MG TABLET PO SCH (09:10)
[2022-05-29] MEDS: DOCUSATE SODIUM 250 MG CAPSULE PO SCH (09:10)
[2022-05-29] MEDS: levETIRAcetam 250 MG TABLET PO SCH ×2 (09:10→21:25)
[2022-05-29] MEDS: DICLOFENAC SODIUM DR 75 MG TABLET PO SCH ×2 (09:10→21:25)
--- NOTE | 2022-05-29 09:33 | XRAY Report ---
PROCEDURE: Knee 3 View RT INDICATIONS: Fracture Management TECHNIQUE: 3 views of the right knee(s) were acquired. COMPARISON: CT 05/21/2022 and plain films 05/18/2022 FINDINGS: Bones: There is overlying splint material now present. Minimally impacted, nondisplaced fracture of the distal femoral metaphysis is seen. The joint remains congruent. Soft tissues: No joint effusion. No suspicious soft tissue calcifications. IMPRESSION: 1. Stable position of distal femoral metaphyseal fracture fragments. 2. Joint is in normal alignment. Reviewed by: Taylor Vick MD on 05/29/2022 8:32 AM [facility] Approved by: Taylor Vick MD on 05/29/2022 8:32 AM [facility] Station ID: [id number]
[2022-05-29] MEDS: NYSTATIN POWDER 15 GM TOP SCH ×2 (10:29→21:26)
[2022-05-29] MEDS: oxyCODONE 5 MG TABLET PO PRN ×3 (10:48→21:26)
--- NOTE | 2022-05-29 16:07 | PROVIDER PROGRESS NOTE ---
Assessment/Plan - Problem List (1) Acute kidney injury superimposed on CKD Assessment/Plan: For the past 3 days, her creat has climbed. While she was not drinking a tremendous amount of fluid, she is drinking. She is eating. Bladder scan did not show obstruction or retention. Plan: Encouraging po fluid intake. Chronic or resolved problems (2) Metaphyseal fracture of bone of right lower extremity identified during this stay Impression: Subsequent encounter, closed fracture, with routine healing She cannot remember how she fell at home before this current ER presentation. She was again encephalopathic, confused, and she needed to be admitted for Rhabdomyolysis, this time. When PT started working with her they noticed that she was only toe touching on the right side, could bear weight because her right knee hurts. The right knee has swelling and warmth but no redness. It is hard for her to straighten the R leg or to bend it excessively. At admission there were x-rays done of the right foot, left wrist and LS-spine but not the right knee. We obtained x-rays of R knee after she was admitted>> many abnormalities seen. Ortho input was awaited, since we had no Ortho service from 05/06/22 thru 05/20/22, until 05/21/22. She ended up going to CT for evaluation and the comminuted distal femoral fracture was diagnosed. We are now struggling on how to handle this. She does not like the hinged knee brace. It is going to slow her down with regards to rehab. Orthopedics is following the patient. She is toe-touch weightbearing with physical therapy and Occupational Therapy. Splint was tolerated for only 24 hours. They want us to continue nonoperative management for minimally displaced supracondylar fracture right distal femur. Continue PT and OT with toe-touch weightbearing. Plan:Will continue with NSAIDs scheduled, not just prn, for pain control, although not tolerating a splint, ortho has not put her in a cast (3) Frequent falls at home Impression: Per pt's story she slipped and fell on some milk this time. Has a history of frequent falls, prior back pain, ankle pain. History of back and ankle surgery. Xrays obtained in ED were negative for fractures. PT noticed that she was only toe touching on the right leg, could not bear weight because her right knee hurt. She does not have aortic stenosis, orthostatic hypotension, arrhythmia, anemia that would cause these frequent falls. Plan: PT/OT working w her. She is weightbearing as tolerated. (4) History of seizures Impression: Per EMR was on keppra several admissions ago. Has presented to ED with delirium, etiology uncertain, UTI, dehydration, post-ictal. Plan: continue keppra (5) Cognitive impairment Impression: Last recent hospitalization 1 week ago had a SLUMS test done by OT. Score 11/30, indicating severly cognitively impaired, staff was not sure if she was actively participating to make that an accurate score. The impression we got was that she was irritated with all of this and was throwing us out of the room and did not want to cooperate with questions. During this admission, she has agreed to go to [facility] and [facility]. Plan: Social work is working on this placement. It is our wait for placement that keeps her here. (6) Coronary artery disease Impression: hx of [place] Plan: continue therestarted b-briseida and baby aspirin daily, restarted her statin therapy Qualifiers: Coronary Disease-Associated Artery/Lesion type: [place] artery [place] vs. transplanted heart: [place] heart Associated angina: without angina Qualified Code(s): I25.10 - Atherosclerotic heart disease of [place] coronary artery without angina pectoris (7) Chronic HFrEF (heart failure with reduced ejection fraction) Impression: EF 35-40% by ECHO in 12/2021 Plan: b-briseida restarted, ARB restarted, restart spironolactone, no volume overload. (8) Altered mental status Impression: Resolved Has had several hospitalizations in past month, etiology felt to be post-ictal, dehydration, infectious Qualifiers: Altered mental status type: disorientation Qualified Code(s): R41.0 - Disorientation, unspecified (9) Rhabdomyolysis Impression: Resolved CK improved after IV fluids, taking good po intake now Qualifiers: Rhabdomyolysis type: non-traumatic Qualified Code(s): M62.82 - Rhabdomyoly sis (10) Hypothyroidism Impression: high TSH 7.51 this admission. Plan: synthroid restarted, check free T4, and TSH again in 4-6 weeks. Qualifiers: Hypothyroidism type: unspecified Qualified Code(s): E03.9 - Hypothyroidism, unspecified (11) HTN (hypertension) Impression: History of HTN, has been normotensive this admission Plan: monitor for HTN SBP>140 Qualifiers: Hypertension type: primary hypertension Qualified Code(s): I10 - Essential (primary) hypertension (12) Hx Multiple sclerosis As per Hx (13) Hyperlipidemia Impression: Plan: check HDL, LDL, triglycerides and ordered for the morning Qualifiers: Hyperlipidemia type: unspecified Qualified Code(s): E78.5 - Hyperlipidemia, unspecified (14) Hypernatremia Impression: Resolved (15) Hypokalemia Resolved - Current Meds Current Meds: Current Medications Generic Name Dose Route Start Last Admin Trade Name Freq PRN Reason Stop Dose Admin Acetaminophen 650 mg 05/14/22 15:41 05/28/22 10:06 Acetaminophen 325 Mg Tablet PO 650 mg Q4HR PRN Administration Pain 1 to 4, or Fever Aspirin 81 mg 05/16/22 09:00 05/29/22 09:09 Aspirin Ec 81 Mg Tablet PO 81 mg DAILY JIN Administration Baclofen 30 mg 05/15/22 21:00 05/29/22 09:09 Baclofen 10 Mg Tablet PO 30 mg BID JIN Administration Carboxymethylcellulose 1 drops 05/21/22 17:59 05/21/22 19:07 Carboxymethylcellulose Ophth Drops EACHEYE 1 drops PRN PRN Administration Dry Eye Carvedilol 3.125 mg 05/15/22 09:00 05/29/22 09:09 Carvedilol 3.125 Mg Tablet PO 3.125 mg BID JNI Administration Cholecalciferol 50 mcg 05/21/22 12:00 05/29/22 09:09 Cholecalciferol 25 Mcg Tablet PO 50 mcg DAILY JIN Administration Diclofenac Sodium 75 mg 05/18/22 21:00 05/29/22 09:[address] 75 Mg Tablet PO 75 mg BID JIN Administration Docusate Sodium 250 - 500 mg 05/18/22 09:00 05/29/22 09:10 Docusate Sodium 250 Mg Capsule PO 500 mg DAILY JIN Administration Enoxaparin Sodium 40 mg 05/15/22 09:00 05/29/22 09:08 Enoxaparin 40 Mg/0.4 Ml Syringe SUBQ 40 mg DAILY JIN Administration Fluticasone Propionate 1 sprays 05/15/22 08:38 05/19/22 13:09 Fluticasone Nasal [place] WILLIE 1 sprays BID PRN Administration Nasal Congestion Levetiracetam 500 mg 05/15/22 21:00 05/29/22 09:10 Levetiracetam 250 Mg Tablet PO 500 mg BID JIN Administration Levothyroxine Sodium 50 mcg 05/16/22 07:00 05/29/22 06:42 Levothyroxine 25 Mcg Tablet PO 50 mcg QDAC JIN Administration Losartan Potassium 12.5 mg 05/15/22 09:00 05/29/22 09:10 Losartan 50 Mg Tablet PO 12.5 mg DAILY JIN Administration Nystatin 1 applic 05/15/22 21:00 05/29/22 10:29 Nystatin Powder 15 Gm TOP 1 applic BID JIN Administration Oxycodone HCl 5 mg 05/14/22 15:41 05/29/22 10:48 Oxycodone 5 Mg Tablet PO 5 mg Q4HR PRN Administration Pain 5 to 7 Pantoprazole Sodium 40 mg 05/18/22 21:00 05/29/22 09:09 Pantoprazole 40 Mg Tablet PO 40 mg BID JIN Administration Polyethylene Glycol 17 gm 05/17/22 12:00 05/29/22 09:08 Polyethylene Glycol 3350 17 Gm Packet PO 17 gm DAILY JIN Administration Senna 8.6 - 17.2 mg 05/18/22 09:00 05/29/22 09:10 Senna 8.6 Mg Tablet PO 17.2 mg DAILY JIN Administration - Lab Result Fish Bone Diagrams: 05/24/22 09:01 05/29/22 04:40 - Additional Planning My Orders: My Active Orders 05/29/22 11:10 Shower [RC] ONCE 05/29/22 21:00 Atorvastatin [Lipitor] 40 mg PO QPM 05/30/22 05:00 BMP - BASIC METABOLIC PANEL [CHEM] DAILYLAB TSH [THYROID STIMULATING HORMONE] [IAI] DAILYLAB 05/31/22 05:00 BMP - BASIC METABOLIC PANEL [CHEM] DAILYLAB 06/01/22 05:00 BMP - BASIC METABOLIC PANEL [CHEM] DAILYLAB 06/02/22 05:00 BMP - BASIC METABOLIC PANEL [CHEM] DAILYLAB Subjective - Subjective Patient Reports: Resting Comfortably (She was able to get from bed to her chair today with no complaints. Later in the day however she was screaming out "okay okay okay", instead of calling for nursing help.) Objective Vital Signs: Vital Signs - 24 hr 05/28/22 05/28/22 05/29/22 16:41 20:12 04:40 Temperature 36.6 C 36.4 C L 36.3 C L Heart Rate [ 70 68 77 Brachial] Respiratory 20 24 22 Rate Blood Pressure 107/55 L 99/46 L 110/61 [Right Brachial artery] O2 Saturation 98 94 95 05/29/22 05/29/22 08:00 15:57 Temperature 36.4 C L 36.4 C L Heart Rate [ 73 66 Brachial] Respiratory 20 18 Rate Blood Pressure 112/61 101/44 L [Right Brachial artery] O2 Saturation 92 97 Oxygen O2 Source [With Activity] Room air O2 Source [Without Activity] Room air O2 Source Room air I&O (Last 24 Hrs): Intake and Output Totals x24h 05/27/22 05/28/22 05/29/22 23:59 23:59 23:59 Intake Total 1870 757 340 Output Total 1100 1500 1500 Balance 770 -013 -1160 General: Alert HEENT: Mucous membr. moist/pink, Other (Disheveled) Neck: Supple Neuro: Alert, Disoriented, Non Focal Cardiovascular: Regular rate Respiratory: No respiratory distress Abdomen: Soft, Other (Obese) Extremities: Other (R knee swollen) - Results Results: Laboratory Results WBC 8.9 x10^3/uL (4.8-10.8) 05/24/22 09:01 RBC 4.32 10^6/uL (4.20-5.40) 05/24/22 09:01 Hgb 12.1 g/dL (12.0-16.0) 05/24/22 09:01 Hct 39.7 % (37.0-47.0) 05/24/22 09:01 MCV 91.9 fL (81.0-99.0) 05/24/22 09:01 MCH 28.0 pg (27.0-31.0) 05/24/22 09:01 MCHC 30.5 g/dL (32.0-36.0) L 05/24/22 09:01 RDW 15.9 % (12.0-15.0) H 05/24/22 09:01 Plt Count 255 10^3/uL (130-450) 05/24/22 09:01 MPV 11.2 fL (7.9-10.8) H 05/24/22 09:01 Neut # (Auto) 5.9 10^3/uL (1.5-6.6) 05/24/22 09:01 Lymph # (Auto) 2.3 10^3/uL (1.5-3.5) 05/24/22 09:01 [place] # (Auto) 0.6 10^3/uL (0.0-1.0) 05/24/22 09:01 Eos # (Auto) 0.0 10^3/uL (0.0-0.7) 05/24/22 09:01 Baso # (Auto) 0.1 10^3/uL (0.0-0.1) 05/24/22 09:01 Absolute Nucleated RBC 0.00 x10^3/uL 05/24/22 09:01 Nucleated RBC % 0.0 /100WBC 05/24/22 09:01 Sodium 139 mmol/L (135-145) 05/29/22 04:40 Potassium 4.8 mmol/L (3.5-5.0) 05/29/22 04:40 Chloride 106 mmol/L (101-111) 05/29/22 04:40 Carbon Dioxide 23 mmol/L (21-32) 05/29/22 04:40 Anion Gap 10.0 (6-13) 05/29/22 04:40 BUN 32 mg/dL (6-20) H 05/29/22 04:40 Creatinine 1.2 mg/dL (0.4-1.0) H 05/29/22 04:40 Estimated GFR (MDRD) 45 (>89) L 05/29/22 04:40 Glucose 85 mg/dL (70-100) 05/29/22 04:40 Lactic Acid 1.6 mmol/L (0.5-2.2) 05/14/22 11:58 Calcium 9.3 mg/dL (8.5-10.3) 05/29/22 04:40 Total Bilirubin 0.9 mg/dL (0.2-1.0) 05/14/22 11:58 AST 73 IU/L (10-42) H 05/14/22 11:58 ALT 28 IU/L (10-60) 05/14/22 11:58 Alkaline Phosphatase 120 IU/L (42-121) 05/14/22 11:58 Ammonia 12.4 umol/L (7-35) 05/14/22 11:58 Total Creatine Kinase 742 IU/L (22-269) H 05/18/22 04:47 C-Reactive Protein 11.3 mg/dL (0-1.0) H 05/15/22 04:15 B-Natriuretic Peptide 468 pg/mL (5-100) H 05/14/22 11:58 Total Protein 8.3 g/dL (6.7-8.2) H 05/14/22 11:58 Albumin 4.0 g/dL (3.2-5.5) 05/14/22 11:58 Globulin 4.3 g/dL (2.1-4.2) H 05/14/22 11:58 Albumin/Globulin Ratio 0.9 (1.0-2.2) L 05/14/22 11:58 Triglycerides 201 mg/dL (-149) H 05/29/22 04:40 Cholesterol 251 mg/dL (-199) H 05/29/22 04:40 LDL Cholesterol, Calc 177 mg/dL (-129) H 05/29/22 04:40 VLDL Cholesterol 40 mg/dL 05/29/22 04:40 HDL Cholesterol 34 mg/dL (60-) L 05/29/22 04:40 LDL/HDL Ratio 5.2 (<4.4) 05/29/22 04:40 Cholesterol/HDL Ratio 7.4 (<4.4) 05/29/22 04:40 Lipase 31 U/L (22-51) 05/14/22 11:58 TSH 7.51 uIU/mL (0.34-5.60) H 05/16/22 05:03 Cortisol AM Sample 6.3 ug/dL 05/29/22 04:40 Urine Color YELLOW 05/14/22 12:40 Urine Clarity HAZY (CLEAR) 05/14/22 12:40 Urine pH 6.0 PH (5.0-7.5) 05/14/22 12:40 Ur Specific [place] 1.025 (1.002-1.030) 05/14/22 12:40 Urine Protein 30 mg/dL (NEGATIVE) H 05/14/22 12:40 Urine Glucose (UA) NEGATIVE mg/dL (NEGATIVE) 05/14/22 12:40 Urine Ketones TRACE mg/dL (NEGATIVE) 05/14/22 12:40 Urine Occult Blood LARGE (NEGATIVE) H 05/14/22 12:40 Urine Nitrite NEGATIVE (NEGATIVE) 05/14/22 12:40 Urine Bilirubin NEGATIVE (NEGATIVE) 05/14/22 12:40 Urine Urobilinogen 0.2 (NORMAL) E.U./dL (NORMAL) 05/14/22 12:40 Ur Leukocyte Esterase NEGATIVE (NEGATIVE) 05/14/22 12:40 Urine RBC 6-10 /HPF (0-5) H 05/14/22 12:40 Urine WBC 0-3 /HPF (0-5) 05/14/22 12:40 Ur Squamous Epith Cells MOD Squamous (<= Few) H 05/14/22 12:40 Urine Bacteria Few /HPF (None Seen) 05/14/22 12:40 Urine Casts 0-2 Fine Granular /LPF0-2 Hyaline Casts /LPF 05/14/22 12:40 Urine Casts 0-2 Fine Granular /LPF0-2 Hyaline Casts /LPF 05/14/22 12:40 Ur Microscopic Review INDICATED 05/14/22 12:40 Urine Culture Comments NOT INDICATED 05/14/22 12:40 Urine Opiates Screen NEGATIVE (NEGATIVE) 05/14/22 12:40 Ur Oxycodone Screen POSITIVE (NEGATIVE) H 05/14/22 12:40 Urine Methadone Screen NEGATIVE (NEGATIVE) 05/14/22 12:40 Ur Propoxyphene Screen NEGATIVE (NEGATIVE) 05/14/22 12:40 Ur Barbiturates Screen NEGATIVE (NEGATIVE) 05/14/22 12:40 Ur Tricyclics Screen NEGATIVE (NEGATIVE) 05/14/22 12:40 Ur Phencyclidine Scrn NEGATIVE (NEGATIVE) 05/14/22 12:40 Ur Amphetamine Screen NEGATIVE (NEGATIVE) 05/14/22 12:40 U Methamphetamines Scrn NEGATIVE (NEGATIVE) 05/14/22 12:40 U Benzodiazepines Scrn NEGATIVE (NEGATIVE) 05/14/22 12:40 Urine Cocaine Screen NEGATIVE (NEGATIVE) 05/14/22 12:40 U Cannabinoids Screen NEGATIVE (NEGATIVE) 05/14/22 12:40 Ethyl Alcohol < 5.0 mg/dL 05/14/22 11:58 MAC Interpretation Comment (.) 05/15/22 09:04 Anti-sm/[employer] Abs <0.2 AI (0.0-0.9) 05/15/22 09:04 RAFAELA-1 Antibody <0.2 AI (0.0-0.9) 05/15/22 09:04 SS-A/Ro Antibody <0.2 AI (0.0-0.9) 05/15/22 09:04 SS-B/La Antibody 0.4 AI (0.0-0.9) 05/15/22 09:04 Sm (Triana) Antibody <0.2 AI (0.0-0.9) 05/15/22 09:04 J[employer] Antibody 0.5 AI (0.0-0.9) 05/15/22 09:04 Scl-70 Scleroderma Ab <0.2 AI (0.0-0.9) 05/15/22 09:04 Double Strand DNA Ab <1 IU/mL (0-9) 05/15/22 09:04 Ribosomal P Prot Ab <0.2 AI (0.0-0.9) 05/15/22 09:04 Chromatin Antibody <0.2 AI (0.0-0.9) 05/15/22 09:04 Centromere B Antibody <0.2 AI (0.0-0.9) 05/15/22 09:04 SARS-CoV-2 (PCR) NOT DETECTED 05/14/22 13:40 - Procedures Procedures: Procedures INSERTION OF INFUSION DEV INTO SUP VENA CAVA, PERC APPROACH (12/10/21)
[2022-05-29] MEDS: ACETAMINOPHEN 325 MG TABLET PO PRN (16:19)
[2022-05-29] MEDS: ATORVASTATIN 40 MG TABLET PO SCH (21:25)
[2022-05-30] MEDS: LEVOTHYROXINE 25 MCG TABLET PO SCH (06:19)
[2022-05-30] MEDS: polyethylene glycoL 3350 17 GM PACKET PO SCH (08:53)
[2022-05-30] MEDS: ASPIRIN EC 81 MG TABLET PO SCH (08:53)
[2022-05-30] MEDS: BACLOFEN 10 MG TABLET PO SCH ×2 (08:53→20:51)
[2022-05-30] MEDS: DICLOFENAC SODIUM DR 75 MG TABLET PO SCH ×2 (08:54→20:51)
[2022-05-30] MEDS: DOCUSATE SODIUM 250 MG CAPSULE PO SCH (08:54)
[2022-05-30] MEDS: SENNA 8.6 MG TABLET PO SCH (08:54)
[2022-05-30] MEDS: levETIRAcetam 250 MG TABLET PO SCH ×2 (08:55→20:51)
[2022-05-30] MEDS: PANTOPRAZOLE 40 MG TABLET PO SCH (08:55)
[2022-05-30] MEDS: LOSARTAN 50 MG TABLET PO SCH (08:55)
[2022-05-30] MEDS: CHOLECALCIFEROL 25 MCG TABLET PO SCH (08:56)
[2022-05-30] MEDS: ENOXAPARIN 40 MG/0.4 ML SYRINGE SUBQ SCH (08:56)
[2022-05-30] MEDS: NYSTATIN POWDER 15 GM TOP SCH ×2 (08:57→20:51)
[2022-05-30] MEDS: carvediloL 3.125 MG TABLET PO SCH ×2 (08:57→20:51)
[2022-05-30] MEDS: ZINC OXIDE 20% OINT 30 GM TUBE TOP PRN (08:58)
[2022-05-30 10:26] LABS: CALCIUM 9.4 mg/dL (8.5-10.3); CREATININE 1.1 mg/dL (0.4-1.0); POTASSIUM 3.8 mmol/L (3.5-5.0)
[2022-05-30] MEDS: oxyCODONE 5 MG TABLET PO PRN ×3 (14:26→23:40)
--- NOTE | 2022-05-30 14:40 | PROVIDER PROGRESS NOTE ---
Subjective - General Admit Date: 05/14/22 - Other Other Information/Narrative: Sleeping upon arrival of orthopedic team, nurse at the bedside Patient awoke and reported mild pain in the right knee She states she has been working with physical therapy She is tolerating the splint Objective - Patient Data Reviewed Vital Signs: Yes Vital Signs: Vital Signs x48h Temp Pulse Resp BP Pulse Ox 05/30/22 07:54 36.3 C L 72 20 123/74 96 05/30/22 06:38 36.3 C L 69 20 113/70 96 Intake & Output: Intake and Output Totals x24h 05/28/22 05/29/22 05/30/22 23:59 23:59 23:59 Intake Total 757 780 300 Output Total 1500 1650 800 Balance -933 -330 -500 - Lab Results Lab Results: 05/24/22 09:01 05/30/22 10:09 Other Lab Results: Lab Results x24hrs 05/30/22 05/30/22 Range/Units 10:09 10:09 Sodium 137 (135-145) mmol/L Potassium 3.8 (3.5-5.0) mmol/L Chloride 100 L (101-111) mmol/L Carbon Dioxide 26 (21-32) mmol/L Anion Gap 11.0 (6-13) BUN 28 H (6-20) mg/dL Creatinine 1.1 H (0.4-1.0) mg/dL Estimated GFR (MDRD) 50 L (>89) Glucose 108 H (70-100) mg/dL Calcium 9.4 (8.5-10.3) mg/dL TSH 4.51 (0.34-5.60) uIU/mL - Imaging Results Radiology Imaging: positive: Final report received Imaging Results Comments: I have independently visualized x-rays of the right knee taken on 05/29/2022 which show a minimally impacted and nondisplaced fracture of the distal femoral metaphysis. No dislocation - Current Medications Current Medications: Current Medications Generic Name Dose Route Start Last Admin Trade Name Freq PRN Reason Stop Dose Admin Acetaminophen 650 mg 05/14/22 15:41 05/29/22 16:19 Acetaminophen 325 Mg Tablet PO 650 mg Q4HR PRN Administration Pain 1 to 4, or Fever Aspirin 81 mg 05/16/22 09:00 05/30/22 08:53 Aspirin Ec 81 Mg Tablet PO 81 mg DAILY JIN Administration Atorvastatin Calcium 40 mg 05/29/22 21:00 05/29/22 21:25 Atorvastatin 40 Mg Tablet PO 40 mg QPM JIN Administration Baclofen 30 mg 05/15/22 21:00 05/30/22 08:53 Baclofen 10 Mg Tablet PO 30 mg BID JIN Administration Carboxymethylcellulose 1 drops 05/21/22 17:59 05/21/22 19:07 Carboxymethylcellulose Ophth Drops EACHEYE 1 drops PRN PRN Administration Dry Eye Carvedilol 3.125 mg 05/15/22 09:00 05/30/22 08:57 Carvedilol 3.125 Mg Tablet PO 3.125 mg BID JIN Administration Cholecalciferol 50 mcg 05/21/22 12:00 05/30/22 08:56 Cholecalciferol 25 Mcg Tablet PO 50 mcg DAILY JIN Administration Diclofenac Sodium 75 mg 05/18/22 21:00 05/30/22 08:[address] 75 Mg Tablet PO 75 mg BID JIN Administration Docusate Sodium 250 - 500 mg 05/18/22 09:00 05/30/22 08:54 Docusate Sodium 250 Mg Capsule PO 250 mg DAILY JIN Administration Enoxaparin Sodium 40 mg 05/15/22 09:00 05/30/22 08:56 Enoxaparin 40 Mg/0.4 Ml Syringe SUBQ 40 mg DAILY JIN Administration Fluticasone Propionate 1 sprays 05/15/22 08:38 05/19/22 13:09 Fluticasone Nasal [place] WILLIE 1 sprays BID PRN Administration Nasal Congestion Levetiracetam 500 mg 05/15/22 21:00 05/30/22 08:55 Levetiracetam 250 Mg Tablet PO 500 mg BID JIN Administration Levothyroxine Sodium 50 mcg 05/16/22 07:00 05/30/22 06:19 Levothyroxine 25 Mcg Tablet PO 50 mcg QDAC JIN Administration Losartan Potassium 12.5 mg 05/15/22 09:00 05/30/22 08:55 Losartan 50 Mg Tablet PO 12.5 mg DAILY JIN Administration Multi-Ingredient Ointment 1 applic 05/29/22 16:07 05/30/22 08:58 Zinc Oxide 20% Oint 30 Gm Tube TOP 1 applic PRN PRN Administration Skin Care Nystatin 1 applic 05/15/22 21:00 05/30/22 08:57 Nystatin Powder 15 Gm TOP 1 applic BID JIN Administration Oxycodone HCl 5 mg 05/14/22 15:41 05/30/22 14:26 Oxycodone 5 Mg Tablet PO 5 mg Q4HR PRN Administration Pain 5 to 7 Polyethylene Glycol 17 gm 05/17/22 12:00 05/30/22 08:53 Polyethylene Glycol 3350 17 Gm Packet PO 17 gm DAILY JIN Administration Senna 8.6 - 17.2 mg 05/18/22 09:00 05/30/22 08:54 Senna 8.6 Mg Tablet PO 8.6 mg DAILY JIN Administration - Physical Exam General Appearance: positive: No acute distress Comments/Other: Neurovascularly intact to right lower extremity Splint in place with disruption and exposure of splinting material at the proximal anterior aspect of the splint at the thigh Knee maintained in flexion in the splint Alert and oriented, no acute distress Impression/Plan - Problem List Problem List: 66-year-old female who presented to the emergency department on 05/14/2022 after being found down after a fall. She was admitted for metabolic encephalopathy, acute kidney injury and frequent falls. On day 8 of admission she was found to have a minimally displaced supracondylar fracture of the right distal femur. Orthopedics is following the patient for non-operative management of non displaced supracondylar fracture. Patient was seen by myself and Dr. Garcia. She has been tolerating the splint well and is participating in physical and occupational therapy with toe touch weight bearing status. The splint was not intact on our exam. The splint was resecured with webroll and an anthony bandage. Patient continues to tolerate the splint without any increased pain. She is still neurovascularly intact to the right lower extremity after the splint was re-secured. X-ray obtained on 05/29/2022 showed a non displaced metaphyseal fracture of the distal right femur. No evidence of displacement with toe touch weight bearing status and splint to the right lower extremity. Plan: -Continue nonoperative management for minimally displaced supracondylar fracture right distal femur, now 2 weeks from date of injury - Splint to remain dry and intact, orthopedics will redress the splint as needed - Hinged knee brace should not be used while the splint is in place, ideally the patient will transition to the hinged knee brace but did not tolerate it previously -Continue physical therapy and Occupational Therapy with toe-touch weightbearing to right lower extremity -Pain management per hospitalist physician -Disposition pending social work assessment and placement - Monitor for sharp increases in pain despite pain regimen, swelling or other concerning features of compartment syndrome - Orthopedic surgery will continue to follow the patient
--- NOTE | 2022-05-30 16:59 | PROVIDER PROGRESS NOTE ---
Assessment/Plan - Problem List (1) Metaphyseal fracture of bone of right lower extremity Assessment/Plan: Pain is mostly under control. She is participating with PT. She is wearing the splint Plan (from Orthopedics visit today): -Continue nonoperative management for minimally displaced supracondylar fracture right distal femur, now 2 weeks from date of injury - Splint to remain dry and intact, orthopedics will redress the splint as needed - Hinged knee brace should not be used while the splint is in place, ideally the patient will transition to the hinged knee brace but did not tolerate it previously -Continue physical therapy and Occupational Therapy with toe-touch weightbearing to right lower extremity -Pain management per hospitalist physician -Disposition pending social work assessment and placement - Monitor for sharp increases in pain despite pain regimen, swelling or other concerning features of compartment syndrome - Orthopedic surgery will continue to follow the patient (2) Acute kidney injury superimposed on CKD Improved with increased po fluids Her creat had climbed. She was not drinking a tremendous amount of fluid. She is eating. Bladder scan did not show obstruction or retention. Plan: Cont to encourage po fluid intake. Chronic or resolved problems: (3) Frequent falls at home Impression: Per pt's story she slipped and fell on some milk this time. Has a history of frequent falls, prior back pain, ankle pain. History of back and ankle surgery. Xrays obtained in ED were negative for fractures. PT noticed that she was only toe touching on the right leg, could not bear weight because her right knee hurt. She does not have aortic stenosis, orthostatic hypotension, arrhythmia, anemia that would cause these frequent falls. Plan: PT/OT working w her. She is weightbearing as tolerated. (4) History of seizures Impression: Per EMR was on keppra several admissions ago. Has presented to ED with delirium, etiology uncertain, UTI, dehydration, post-ictal. Plan: continue keppra (5) Cognitive impairment Impression: Last recent hospitalization 1 week ago had a SLUMS test done by OT. Score 11/30, indicating severly cognitively impaired, staff was not sure if she was actively participating to make that an accurate score. The impression we got was that she was irritated with all of this and was throwing us out of the room and did not want to cooperate with questions. During this admission, she has agreed [facility] Plan: Social work is working on this placement. It is our wait for placement that keeps her here. (6) Coronary artery disease Impression: hx of ND Plan: continue therestarted b-briseida and baby aspirin daily, restarted her statin therapy Qualifiers: Coronary Disease-Associated Artery/Lesion type: [place] artery [place] vs. transplanted heart: [place] heart Associated angina: without angina Qualified Code(s): I25.10 - Atherosclerotic heart disease of [place] coronary artery without angina pectoris (7) Chronic HFrEF (heart failure with reduced ejection fraction) Impression: EF 35-40% by ECHO in 12/2021 Plan: b-briseida restarted, ARB restarted, restart spironolactone, no volume overload. (8) Altered mental status Impression: Resolved Has had several hospitalizations in past month, etiology felt to be post-ictal, dehydration, infectious Qualifiers: Altered mental status type: disorientation Qualified Code(s): R41.0 - Disorientation, unspecified (9) Rhabdomyolysis Impression: Resolved CK improved after IV fluids, taking good po intake now Qualifiers: Rhabdomyolysis type: non-traumatic Qualified Code(s): M62.82 - Rhabdomyolysis (10) Hypothyroidism Impression: high TSH 7.51 this admission. Plan: synthroid restarted, check free T4, and TSH again in 4-6 weeks. Qualifiers: Hypothyroidism type: unspecified Qualified Code(s): E03.9 - Hypothyroidism, unspecified (11) HTN (hypertension) Impression: History of HTN, has been normotensive this admission Plan: monitor for HTN SBP>140 Qualifiers: Hypertension type: primary hypertension Qualified Code(s): I10 - Essential (primary) hypertension (12) Hx Multiple sclerosis As per Hx (13) Hyperlipidemia Impression: Plan: check HDL, LDL, triglycerides and ordered for the morning Qualifiers: Hyperlipidemia type: unspecified Qualified Code(s): E78.5 - Hyperlipidemia, unspecified (14) Hypernatremia Impression: Resolved (15) Hypokalemia Resolved - Current Meds Current Meds: Current Medications Generic Name Dose Route Start Last Admin Trade Name Freq PRN Reason Stop Dose Admin Acetaminophen 650 mg 05/14/22 15:41 05/29/22 16:19 Acetaminophen 325 Mg Tablet PO 650 mg Q4HR PRN Administration Pain 1 to 4, or Fever Aspirin 81 mg 05/16/22 09:00 05/30/22 08:53 Aspirin Ec 81 Mg Tablet PO 81 mg DAILY [facility] Administration Atorvastatin Calcium 40 mg 05/29/22 21:00 05/29/22 21:25 Atorvastatin 40 Mg Tablet PO 40 mg QPM JIN Administration Baclofen 30 mg 05/15/22 21:00 05/30/22 08:53 Baclofen 10 Mg Tablet PO 30 mg BID JIN Administration Carboxymethylcellulose 1 drops 05/21/22 17:59 05/21/22 19:07 Carboxymethylcellulose Ophth Drops EACHEYE 1 drops PRN PRN Administration Dry Eye Carvedilol 3.125 mg 05/15/22 09:00 05/30/22 08:57 Carvedilol 3.125 Mg Tablet PO 3.125 mg BID [facility] Administration Cholecalciferol 50 mcg 05/21/22 12:00 05/30/22 08:56 Cholecalciferol 25 Mcg Tablet PO 50 mcg DAILY [facility] Administration Diclofenac Sodium 75 mg 05/18/22 21:00 05/30/22 08:[address] 75 Mg Tablet PO 75 mg BID [facility] Administration Docusate Sodium 250 - 500 mg 05/18/22 09:00 05/30/22 08:54 Docusate Sodium 250 Mg Capsule PO 250 mg DAILY [facility] Administration Enoxaparin Sodium 40 mg 05/15/22 09:00 05/30/22 08:56 Enoxaparin 40 Mg/0.4 Ml Syringe SUBQ 40 mg DAILY [facility] Administration Fluticasone Propionate 1 sprays 05/15/22 08:38 05/19/22 13:09 Fluticasone Nasal [place] WILLIE 1 sprays BID PRN Administration Nasal Congestion Levetiracetam 500 mg 05/15/22 21:00 05/30/22 08:55 Levetiracetam 250 Mg Tablet PO 500 mg BID [facility] Administration Levothyroxine Sodium 50 mcg 05/16/22 07:00 05/30/22 06:19 Levothyroxine 25 Mcg Tablet PO 50 mcg QDAC [facility] Administration Losartan Potassium 12.5 mg 05/15/22 09:00 05/30/22 08:55 Losartan 50 Mg Tablet PO 12.5 mg DAILY [facility] Administration Multi-Ingredient Ointment 1 applic 05/29/22 16:07 05/30/22 08:58 Zinc Oxide 20% Oint 30 Gm Tube TOP 1 applic PRN PRN Administration Skin Care Nystatin 1 applic 05/15/22 21:00 05/30/22 08:57 Nystatin Powder 15 Gm TOP 1 applic BID JIN Administration Oxycodone HCl 5 mg 05/14/22 15:41 05/30/22 14:26 Oxycodone 5 Mg Tablet PO 5 mg Q4HR PRN Administration Pain 5 to 7 Polyethylene Glycol 17 gm 05/17/22 12:00 05/30/22 08:53 Polyethylene Glycol 3350 17 Gm Packet PO 17 gm DAILY JIN Administration Senna 8.6 - 17.2 mg 05/18/22 09:00 05/30/22 08:54 Senna 8.6 Mg Tablet PO 8.6 mg DAILY JIN Administration - Lab Result Fish Bone Diagrams: 05/24/22 09:01 05/30/22 10:09 - Additional Planning My Orders: My Active Orders 05/29/22 16:07 Zinc Oxide 20% Oint [Zinc Oxide] 1 applic TOP PRN PRN 05/29/22 21:00 Atorvastatin [Lipitor] 40 mg PO QPM 05/31/22 05:00 BMP - BASIC METABOLIC PANEL [CHEM] DAILYLAB 06/01/22 05:00 BMP - BASIC METABOLIC PANEL [CHEM] DAILYLAB 06/02/22 05:00 BMP - BASIC METABOLIC PANEL [CHEM] DAILYLAB Subjective - Subjective Patient Reports: Resting Comfortably (No new complaints, still has right knee pain, still participates minimally with PT, does get into chair without complaints) Objective Vital Signs: Vital Signs - 24 hr 05/29/22 05/30/22 05/30/22 23:29 06:38 07:54 Temperature 36.3 C L 36.3 C L 36.3 C L Heart Rate [ 68 69 72 Brachial] Respiratory 18 20 20 Rate Blood Pressure 125/74 113/70 123/74 [Right Brachial artery] O2 Saturation 94 96 96 Oxygen O2 Source [With Activity] Room air O2 Source [Without Activity] Room air O2 Source Room air I&O (Last 24 Hrs): Intake and Output Totals x24h 05/28/22 05/29/22 05/30/22 23:59 23:59 23:59 Intake Total 757 780 300 Output Total 1500 1650 800 Balance -743 870 -500 General: Alert HEENT: Mucous membr. moist/pink Neuro: Alert Cardiovascular: No murmurs Respiratory: No respiratory distress Abdomen: Soft - Results Results: Laboratory Results WBC 8.9 x10^3/uL (4.8-10.8) 05/24/22 09:01 RBC 4.32 10^6/uL (4.20-5.40) 05/24/22 09:01 Hgb 12.1 g/dL (12.0-16.0) 05/24/22 09:01 Hct 39.7 % (37.0-47.0) 05/24/22 09:01 MCV 91.9 fL (81.0-99.0) 05/24/22 09:01 MCH 28.0 pg (27.0-31.0) 05/24/22 09:01 MCHC 30.5 g/dL (32.0-36.0) L 05/24/22 09:01 RDW 15.9 % (12.0-15.0) H 05/24/22 09:01 Plt Count 255 10^3/uL (130-450) 05/24/22 09:01 MPV 11.2 fL (7.9-10.8) H 05/24/22 09:01 Neut # (Auto) 5.9 10^3/uL (1.5-6.6) 05/24/22 09:01 Lymph # (Auto) 2.3 10^3/uL (1.5-3.5) 05/24/22 09:01 [place] # (Auto) 0.6 10^3/uL (0.0-1.0) 05/24/22 09:01 Eos # (Auto) 0.0 10^3/uL (0.0-0.7) 05/24/22 09:01 Baso # (Auto) 0.1 10^3/uL (0.0-0.1) 05/24/22 09:01 Absolute Nucleated RBC 0.00 x10^3/uL 05/24/22 09:01 Nucleated RBC % 0.0 /100WBC 05/24/22 09:01 Sodium 137 mmol/L (135-145) 05/30/22 10:09 Potassium 3.8 mmol/L (3.5-5.0) 05/30/22 10:09 Chloride 100 mmol/L (101-111) L 05/30/22 10:09 Carbon Dioxide 26 mmol/L (21-32) 05/30/22 10:09 Anion Gap 11.0 (6-13) 05/30/22 10:09 BUN 28 mg/dL (6-20) H 05/30/22 10:09 Creatinine 1.1 mg/dL (0.4-1.0) H 05/30/22 10:09 Estimated GFR (MDRD) 50 (>89) L 05/30/22 10:09 Glucose 108 mg/dL (70-100) H 05/30/22 10:09 Lactic Acid 1.6 mmol/L (0.5-2.2) 05/14/22 11:58 Calcium 9.4 mg/dL (8.5-10.3) 05/30/22 10:09 Total Bilirubin 0.9 mg/dL (0.2-1.0) 05/14/22 11:58 AST 73 IU/L (10-42) H 05/14/22 11:58 ALT 28 IU/L (10-60) 05/14/22 11:58 Alkaline Phosphatase 120 IU/L (42-121) 05/14/22 11:58 Ammonia 12.4 umol/L (7-35) 05/14/22 11:58 Total Creatine Kinase 742 IU/L (22-269) H 05/18/22 04:47 C-Reactive Protein 11.3 mg/dL (0-1.0) H 05/15/22 04:15 B-Natriuretic Peptide 468 pg/mL (5-100) H 05/14/22 11:58 Total Protein 8.3 g/dL (6.7-8.2) H 05/14/22 11:58 Albumin 4.0 g/dL (3.2-5.5) 05/14/22 11:58 Globulin 4.3 g/dL (2.1-4.2) H 05/14/22 11:58 Albumin/Globulin Ratio 0.9 (1.0-2.2) L 05/14/22 11:58 Triglycerides 201 mg/dL (-149) H 05/29/22 04:40 Cholesterol 251 mg/dL (-199) H 05/29/22 04:40 LDL Cholesterol, Calc 177 mg/dL (-129) H 05/29/22 04:40 VLDL Cholesterol 40 mg/dL 05/29/22 04:40 HDL Cholesterol 34 mg/dL (60-) L 05/29/22 04:40 LDL/HDL Ratio 5.2 (<4.4) 05/29/22 04:40 Cholesterol/HDL Ratio 7.4 (<4.4) 05/29/22 04:40 Lipase 31 U/L (22-51) 05/14/22 11:58 TSH 4.51 uIU/mL (0.34-5.60) 05/30/22 10:09 Cortisol AM Sample 6.3 ug/dL 05/29/22 04:40 Urine Color YELLOW 05/14/22 12:40 Urine Clarity HAZY (CLEAR) 05/14/22 12:40 Urine pH 6.0 PH (5.0-7.5) 05/14/22 12:40 Ur Specific [place] 1.025 (1.002-1.030) 05/14/22 12:40 Urine Protein 30 mg/dL (NEGATIVE) H 05/14/22 12:40 Urine Glucose (UA) NEGATIVE mg/dL (NEGATIVE) 05/14/22 12:40 Urine Ketones TRACE mg/dL (NEGATIVE) 05/14/22 12:40 Urine Occult Blood LARGE (NEGATIVE) H 05/14/22 12:40 Urine Nitrite NEGATIVE (NEGATIVE) 05/14/22 12:40 Urine Bilirubin NEGATIVE (NEGATIVE) 05/14/22 12:40 Urine Urobilinogen 0.2 (NORMAL) E.U./dL (NORMAL) 05/14/22 12:40 Ur Leukocyte Esterase NEGATIVE (NEGATIVE) 05/14/22 12:40 Urine RBC 6-10 /HPF (0-5) H 05/14/22 12:40 Urine WBC 0-3 /HPF (0-5) 05/14/22 12:40 Ur Squamous Epith Cells MOD Squamous (<= Few) H 05/14/22 12:40 Urine Bacteria Few /HPF (None Seen) 05/14/22 12:40 Urine Casts 0-2 Fine Granular /LPF0-2 Hyaline Casts /LPF 05/14/22 12:40 Urine Casts 0-2 Fine Granular /LPF0-2 Hyaline Casts /LPF 05/14/22 12:40 Ur Microscopic Review INDICATED 05/14/22 12:40 Urine Culture Comments NOT INDICATED 05/14/22 12:40 Urine Opiates Screen NEGATIVE (NEGATIVE) 05/14/22 12:40 Ur Oxycodone Screen POSITIVE (NEGATIVE) H 05/14/22 12:40 Urine Methadone Screen NEGATIVE (NEGATIVE) 05/14/22 12:40 Ur Propoxyphene Screen NEGATIVE (NEGATIVE) 05/14/22 12:40 Ur Barbiturates Screen NEGATIVE (NEGATIVE) 05/14/22 12:40 Ur Tricyclics Screen NEGATIVE (NEGATIVE) 05/14/22 12:40 Ur Phencyclidine Scrn NEGATIVE (NEGATIVE) 05/14/22 12:40 Ur Amphetamine Screen NEGATIVE (NEGATIVE) 05/14/22 12:40 U Methamphetamines Scrn NEGATIVE (NEGATIVE) 05/14/22 12:40 U Benzodiazepines Scrn NEGATIVE (NEGATIVE) 05/14/22 12:40 Urine Cocaine Screen NEGATIVE (NEGATIVE) 05/14/22 12:40 U Cannabinoids Screen NEGATIVE (NEGATIVE) 05/14/22 12:40 Ethyl Alcohol < 5.0 mg/dL 05/14/22 11:58 MAC Interpretation Comment (.) 05/15/22 09:04 Anti-sm/[employer]IC Abs <0.2 AI (0.0-0.9) 05/15/22 09:04 RAFAELA-1 Antibody <0.2 AI (0.0-0.9) 05/15/22 09:04 SS-A/Ro Antibody <0.2 AI (0.0-0.9) 05/15/22 09:04 SS-B/La Antibody 0.4 AI (0.0-0.9) 05/15/22 09:04 Sm (Triana) Antibody <0.2 AI (0.0-0.9) 05/15/22 09:04 ELEV[employer] ELECTRIC Antibody 0.5 AI (0.0-0.9) 05/15/22 09:04 Scl-70 Scleroderma Ab <0.2 AI (0.0-0.9) 05/15/22 09:04 Double Strand DNA Ab <1 IU/mL (0-9) 05/15/22 09:04 Ribosomal P Prot Ab <0.2 AI (0.0-0.9) 05/15/22 09:04 Chromatin Antibody <0.2 AI (0.0-0.9) 05/15/22 09:04 Centromere B Antibody <0.2 AI (0.0-0.9) 05/15/22 09:04 SARS-CoV-2 (PCR) NOT DETECTED 05/14/22 13:40 - Procedures Procedures: Procedures INSERTION OF INFUSION DEV INTO SUP VENA CAVA, PERC APPROACH (12/10/21)
[2022-05-30] MEDS: ATORVASTATIN 40 MG TABLET PO SCH (20:51)
[2022-05-31] MEDS: ACETAMINOPHEN 325 MG TABLET PO PRN (01:05)
[2022-05-31] MEDS: LEVOTHYROXINE 25 MCG TABLET PO SCH (05:19)
[2022-05-31 06:58] LABS: CALCIUM 9.2 mg/dL (8.5-10.3); CREATININE 1.5 mg/dL (0.4-1.0)
[2022-05-31] MEDS: polyethylene glycoL 3350 17 GM PACKET PO SCH (08:48)
[2022-05-31] MEDS: ASPIRIN EC 81 MG TABLET PO SCH (08:50)
[2022-05-31] MEDS: levETIRAcetam 250 MG TABLET PO SCH ×2 (08:51→21:36)
[2022-05-31] MEDS: DICLOFENAC SODIUM DR 75 MG TABLET PO SCH ×2 (08:51→21:36)
[2022-05-31] MEDS: CHOLECALCIFEROL 25 MCG TABLET PO SCH (08:51)
[2022-05-31] MEDS: BACLOFEN 10 MG TABLET PO SCH ×2 (08:51→21:36)
[2022-05-31] MEDS: carvediloL 3.125 MG TABLET PO SCH ×2 (08:52→21:36)
[2022-05-31] MEDS: DOCUSATE SODIUM 250 MG CAPSULE PO SCH (08:52)
[2022-05-31] MEDS: ENOXAPARIN 40 MG/0.4 ML SYRINGE SUBQ SCH (08:52)
[2022-05-31] MEDS: SENNA 8.6 MG TABLET PO SCH (08:53)
[2022-05-31] MEDS: LOSARTAN 50 MG TABLET PO SCH (08:53)
[2022-05-31] MEDS: NYSTATIN POWDER 15 GM TOP SCH ×2 (08:54→21:36)
[2022-05-31] MEDS: oxyCODONE 5 MG TABLET PO PRN (10:17)
[2022-05-31] MEDS: SODIUM CHLORIDE 0.9% 1,000 ML IV SCH ×2 (11:29→19:34)
--- NOTE | 2022-05-31 13:07 | PROVIDER PROGRESS NOTE ---
Assessment/Plan - Problem List (1) Acute kidney injury superimposed on CKD Assessment/Plan: We are still checking her BMP daily ever since her BUN/creatinine increase. These had improved for several days by encouraging p.o. fluids. Today they are worse. Plan: Will order IV NS 2 L to be given over the next 1.5 days Cont to encourage po fluid intake Avoid nephrotoxins Follow BMP daily (2) Metaphyseal fracture of bone of right lower extremity Assessment/Plan: Pain is mostly under control. She is participating with PT. She is wearing the splint Plan (from Orthopedics visit on 05/30): -Continue nonoperative management for minimally displaced supracondylar fracture right distal femur, now 2 weeks from date of injury - Splint to remain dry and intact, orthopedics will redress the splint as needed - Hinged knee brace should not be used while the splint is in place, ideally the patient will transition to the hinged knee brace but did not tolerate it previously -Continue physical therapy and Occupational Therapy with toe-touch weightbearing to right lower extremity -Pain management per hospitalist physician -Disposition pending social work assessment and placement - Monitor for sharp increases in pain despite pain regimen, swelling or other concerning features of compartment syndrome - Orthopedic surgery will continue to follow the patient Chronic or resolved problems: (3) Frequent falls at home Impression: Per pt's story she slipped and fell on some milk this time. Has a history of frequent falls, prior back pain, ankle pain. History of back and ankle surgery. Xrays obtained in ED were negative for fractures. PT noticed that she was only toe touching on the right leg, could not bear weight because her right knee hurt. She does not have aortic stenosis, orthostatic hypotension, arrhythmia, anemia that would cause these frequent falls. Plan: PT/OT working w her. She is ordered to have weight bearing as tolerated. (4) History of seizures Impression: Per EMR was on keppra several admissions ago. Has presented to ED with manuela andrews, etiology uncertain, UTI, dehydration, post-ictal. Plan: continue keppra (5) Cognitive impairment Impression: Last recent hospitalization 1 week ago had a SLUMS test done by OT. Score 11/30, indicating severly cognitively impaired, staff was not sure if she was actively participating to make that an accurate score. The impression we got was that she was irritated with all of this and was throwing us out of the room and did not want to cooperate with questions. 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 Plan: Social work is working on this placement. It is our wait for placement that keeps her here. (6) Coronary artery disease Impression: hx of [place] Plan: continue therestarted b-briseida and baby aspirin daily, restarted her statin therapy Qualifiers: Coronary Disease-Associated Artery/Lesion type: [place] artery [place] vs. transplanted heart: [place] heart Associated angina: without angina Qualified Code(s): I25.10 - Atherosclerotic heart disease of [place] coronary artery without angina pectoris (7) Chronic HFrEF (heart failure with reduced ejection fraction) Impression: EF 35-40% by ECHO in 12/2021 Plan: b-briseida restarted, ARB restarted, restart spironolactone, no volume overload. (8) Altered mental status Impression: Resolved Has had several hospitalizations in past month, etiology felt to be post-ictal, dehydration, infectious Qualifiers: Altered mental status type: disorientation Qualified Code(s): R41.0 - Disorientation, unspecified (9) Rhabdomyolysis Impression: Resolved CK improved after IV fluids, taking good po intake now Qualifiers: Rhabdomyolysis type: non-traumatic Qualified Code(s): M62.82 - Rhabdomyolysis (10) Hypothyroidism Impression: high TSH 7.51 this admission. It is from not being on Synthroid for several days versus week Plan: Synthroid restarted at beginning of this adm, will check free T4, and TSH again in 4-6 weeks. Qualifiers: Hypothyroidism type: unspecified Qualified Code(s): E03.9 - Hypothyroidism, unspecified (11) HTN (hypertension) Impression: History of HTN, has been normotensive this admission Plan: monitor for HTN SBP>140 Qualifiers: Hypertension type: primary hypertension Qualified Code(s): I10 - Essential (primary) hypertension (12) Hx Multiple sclerosis As per Hx (13) Hyperlipidemia Impression: Plan: check HDL, LDL, triglycerides and ordered for the morning Qualifiers: Hyperlipidemia type: unspecified Qualified Code(s): E78.5 - Hyperlipidemia, unspecified (14) Hypernatremia Impression: Resolved (15) Hypokalemia Resolved - Current Meds Current Meds: Current Medications Generic Name Dose Route Start Last Admin Trade Name Freq PRN Reason Stop Dose Admin Acetaminophen 650 mg 05/14/22 15:41 05/31/22 01:05 Acetaminophen 325 Mg Tablet PO 650 mg Q4HR PRN Administration Pain 1 to 4, or Fever Aspirin 81 mg 05/16/22 09:00 05/31/22 08:50 Aspirin Ec 81 Mg Tablet PO 81 mg DAILY JIN Administration Atorvastatin Calcium 40 mg 05/29/22 21:00 05/30/22 20:51 Atorvastatin 40 Mg Tablet PO 40 mg QPM JIN Administration Baclofen 30 mg 05/15/22 21:00 05/31/22 08:51 Baclofen 10 Mg Tablet PO 30 mg BID JIN Administration Carboxymethylcellulose 1 drops 05/21/22 17:59 05/21/22 19:07 Carboxymethylcellulose Ophth Drops EACHEYE 1 drops PRN PRN Administration Dry Eye Carvedilol 3.125 mg 05/15/22 09:00 05/31/22 08:52 Carvedilol 3.125 Mg Tablet PO Not Given BID REPLACED BY [facility] Cholecalciferol 50 mcg 05/21/22 12:00 05/31/22 08:51 Cholecalciferol 25 Mcg Tablet PO 50 mcg DAILY REPLACED BY [facility] Administration Diclofenac Sodium 75 mg 05/18/22 21:00 05/31/22 08:[address] 75 Mg Tablet PO 75 mg BID REPLACED BY [facility] Administration Docusate Sodium 250 - 500 mg 05/18/22 09:00 05/31/22 08:52 Docusate Sodium 250 Mg Capsule PO Not Given DAILY REPLACED BY [facility] Enoxaparin Sodium 40 mg 05/15/22 09:00 05/31/22 08:52 Enoxaparin 40 Mg/0.4 Ml Syringe SUBQ 40 mg DAILY REPLACED BY [facility] Administration Fluticasone Propionate 1 sprays 05/15/22 08:38 05/19/22 13:09 Fluticasone Nasal [place] WILLIE 1 sprays BID PRN Administration Nasal Congestion Sodium Chloride 1,000 mls @ 125 mls/hr 05/31/22 11:00 05/31/22 11:29 Normal Saline 0.9% IV 06/01/22 02:59 125 mls/hr .Q8H JIN Administration Levetiracetam 500 mg 05/15/22 21:00 05/31/22 08:51 Levetiracetam 250 Mg Tablet PO 500 mg BID JIN Administration Levothyroxine Sodium 50 mcg 05/16/22 07:00 05/31/22 05:19 Levothyroxine 25 Mcg Tablet PO 50 mcg QDAC JIN Administration Losartan Potassium 12.5 mg 05/15/22 09:00 05/31/22 08:53 Losartan 50 Mg Tablet PO 12.5 mg DAILY JIN Administration Multi-Ingredient Ointment 1 applic 05/29/22 16:07 05/30/22 08:58 Zinc Oxide 20% Oint 30 Gm Tube TOP 1 applic PRN PRN Administration Skin Care Nystatin 1 applic 05/15/22 21:00 05/31/22 08:54 Nystatin Powder 15 Gm TOP 1 applic BID JIN Administration Oxycodone HCl 5 mg 05/14/22 15:41 05/31/22 10:17 Oxycodone 5 Mg Tablet PO 5 mg Q4HR PRN Administration Pain 5 to 7 Polyethylene Glycol 17 gm 05/17/22 12:00 05/31/22 08:48 Polyethylene Glycol 3350 17 Gm Packet PO 17 gm DAILY JIN Administration Senna 8.6 - 17.2 mg 05/18/22 09:00 05/31/22 08:53 Senna 8.6 Mg Tablet PO Not Given DAILY JIN - Lab Result Fish Bone Diagrams: 05/24/22 09:01 05/31/22 06:28 - Additional Planning My Orders: My Active Orders 05/31/22 11:00 Sodium Chloride 0.9% [Normal Saline 0.9%] 1,000 ml IV 125 mls/hr 06/01/22 05:00 BMP - BASIC METABOLIC PANEL [CHEM] DAILYLAB 06/02/22 05:00 BMP - BASIC METABOLIC PANEL [CHEM] DAILYLAB Subjective - Subjective Patient Reports: No Complaints, Other (Still has some pain with movement of the right knee) Objective Vital Signs: Vital Signs - 24 hr 05/30/22 05/31/22 05/31/22 23:24 05:23 08:27 Temperature 36.3 C L 36.2 C L Heart Rate [ 72 67 Brachial] Respiratory 20 18 Rate Blood Pressure 89/63 L 91/60 92/51 L [Right Brachial artery] O2 Saturation 95 97 Oxygen O2 Source [With Activity] Room air O2 Source [Without Activity] Room air O2 Source Room air I&O (Last 24 Hrs): Intake and Output Totals x24h 05/29/22 05/30/22 05/31/22 23:59 23:59 23:59 Intake Total 780 350 50 Output Total 1650 1050 Balance -870 -700 50 General: Alert, Oriented x3 HEENT: Mucous membr. moist/pink Neck: Supple Neuro: Alert Respiratory: No respiratory distress Extremities: No edema - Results Results: Laboratory Results WBC 8.9 x10^3/uL (4.8-10.8) 05/24/22 09:01 RBC 4.32 10^6/uL (4.20-5.40) 05/24/22 09:01 Hgb 12.1 g/dL (12.0-16.0) 05/24/22 09:01 Hct 39.7 % (37.0-47.0) 05/24/22 09:01 MCV 91.9 fL (81.0-99.0) 05/24/22 09:01 MCH 28.0 pg (27.0-31.0) 05/24/22 09:01 MCHC 30.5 g/dL (32.0-36.0) L 05/24/22 09:01 RDW 15.9 % (12.0-15.0) H 05/24/22 09:01 Plt Count 255 10^3/uL (130-450) 05/24/22 09:01 MPV 11.2 fL (7.9-10.8) H 05/24/22 09:01 Neut # (Auto) 5.9 10^3/uL (1.5-6.6) 05/24/22 09:01 Lymph # (Auto) 2.3 10^3/uL (1.5-3.5) 05/24/22 09:01 [place] # (Auto) 0.6 10^3/uL (0.0-1.0) 05/24/22 09:01 Eos # (Auto) 0.0 10^3/uL (0.0-0.7) 05/24/22 09:01 Baso # (Auto) 0.1 10^3/uL (0.0-0.1) 05/24/22 09:01 Absolute Nucleated RBC 0.00 x10^3/uL 05/24/22 09:01 Nucleated RBC % 0.0 /100WBC 05/24/22 09:01 Sodium 139 mmol/L (135-145) 05/31/22 06:28 Potassium 5.0 mmol/L (3.5-5.0) 05/31/22 06:28 Chloride 104 mmol/L (101-111) 05/31/22 06:28 Carbon Dioxide 25 mmol/L (21-32) 05/31/22 06:28 Anion Gap 10.0 (6-13) 05/31/22 06:28 BUN 34 mg/dL (6-20) H 05/31/22 06:28 Creatinine 1.5 mg/dL (0.4-1.0) H 05/31/22 06:28 Estimated GFR (MDRD) 35 (>89) L 05/31/22 06:28 Glucose 85 mg/dL (70-100) 05/31/22 06:28 Lactic Acid 1.6 mmol/L (0.5-2.2) 05/14/22 11:58 Calcium 9.2 mg/dL (8.5-10.3) 05/31/22 06:28 Total Bilirubin 0.9 mg/dL (0.2-1.0) 05/14/22 11:58 AST 73 IU/L (10-42) H 05/14/22 11:58 ALT 28 IU/L (10-60) 05/14/22 11:58 Alkaline Phosphatase 120 IU/L (42-121) 05/14/22 11:58 Ammonia 12.4 umol/L (7-35) 05/14/22 11:58 Total Creatine Kinase 742 IU/L (22-269) H 05/18/22 04:47 C-Reactive Protein 11.3 mg/dL (0-1.0) H 05/15/22 04:15 B-Natriuretic Peptide 468 pg/mL (5-100) H 05/14/22 11:58 Total Protein 8.3 g/dL (6.7-8.2) H 05/14/22 11:58 Albumin 4.0 g/dL (3.2-5.5) 05/14/22 11:58 Globulin 4.3 g/dL (2.1-4.2) H 05/14/22 11:58 Albumin/Globulin Ratio 0.9 (1.0-2.2) L 05/14/22 11:58 Triglycerides 201 mg/dL (-149) H 05/29/22 04:40 Cholesterol 251 mg/dL (-199) H 05/29/22 04:40 LDL Cholesterol, Calc 177 mg/dL (-129) H 05/29/22 04:40 VLDL Cholesterol 40 mg/dL 05/29/22 04:40 HDL Cholesterol 34 mg/dL (60-) L 05/29/22 04:40 LDL/HDL Ratio 5.2 (<4.4) 05/29/22 04:40 Cholesterol/HDL Ratio 7.4 (<4.4) 05/29/22 04:40 Lipase 31 U/L (22-51) 05/14/22 11:58 TSH 4.51 uIU/mL (0.34-5.60) 05/30/22 10:09 Cortisol AM Sample 6.3 ug/dL 05/29/22 04:40 Urine Color YELLOW 05/14/22 12:40 Urine Clarity HAZY (CLEAR) 05/14/22 12:40 Urine pH 6.0 PH (5.0-7.5) 05/14/22 12:40 Ur Specific [place] 1.025 (1.002-1.030) 05/14/22 12:40 Urine Protein 30 mg/dL (NEGATIVE) H 05/14/22 12:40 Urine Glucose (UA) NEGATIVE mg/dL (NEGATIVE) 05/14/22 12:40 Urine Ketones TRACE mg/dL (NEGATIVE) 05/14/22 12:40 Urine Occult Blood LARGE (NEGATIVE) H 05/14/22 12:40 Urine Nitrite NEGATIVE (NEGATIVE) 05/14/22 12:40 Urine Bilirubin NEGATIVE (NEGATIVE) 05/14/22 12:40 Urine Urobilinogen 0.2 (NORMAL) E.U./dL (NORMAL) 05/14/22 12:40 Ur Leukocyte Esterase NEGATIVE (NEGATIVE) 05/14/22 12:40 Urine RBC 6-10 /HPF (0-5) H 05/14/22 12:40 Urine WBC 0-3 /HPF (0-5) 05/14/22 12:40 Ur Squamous Epith Cells MOD Squamous (<= Few) H 05/14/22 12:40 Urine Bacteria Few /HPF (None Seen) 05/14/22 12:40 Urine Casts 0-2 Fine Granular /LPF0-2 Hyaline Casts /LPF 05/14/22 12:40 Urine Casts 0-2 Fine Granular /LPF0-2 Hyaline Casts /LPF 05/14/22 12:40 Ur Microscopic Review INDICATED 05/14/22 12:40 Urine Culture Comments NOT INDICATED 05/14/22 12:40 Urine Opiates Screen NEGATIVE (NEGATIVE) 05/14/22 12:40 Ur Oxycodone Screen POSITIVE (NEGATIVE) H 05/14/22 12:40 Urine Methadone Screen NEGATIVE (NEGATIVE) 05/14/22 12:40 Ur Propoxyphene Screen NEGATIVE (NEGATIVE) 05/14/22 12:40 Ur Barbiturates Screen NEGATIVE (NEGATIVE) 05/14/22 12:40 Ur Tricyclics Screen NEGATIVE (NEGATIVE) 05/14/22 12:40 Ur Phencyclidine Scrn NEGATIVE (NEGATIVE) 05/14/22 12:40 Ur Amphetamine Screen NEGATIVE (NEGATIVE) 05/14/22 12:40 U Methamphetamines Scrn NEGATIVE (NEGATIVE) 05/14/22 12:40 U Benzodiazepines Scrn NEGATIVE (NEGATIVE) 05/14/22 12:40 Urine Cocaine Screen NEGATIVE (NEGATIVE) 05/14/22 12:40 U Cannabinoids Screen NEGATIVE (NEGATIVE) 05/14/22 12:40 Ethyl Alcohol < 5.0 mg/dL 05/14/22 11:58 MAC Interpretation Comment (.) 05/15/22 09:04 Anti-sm/[employer] Abs <0.2 AI (0.0-0.9) 05/15/22 09:04 RAFAELA-1 Antibody <0.2 AI (0.0-0.9) 05/15/22 09:04 SS-A/Ro Antibody <0.2 AI (0.0-0.9) 05/15/22 09:04 SS-B/La Antibody 0.4 AI (0.0-0.9) 05/15/22 09:04 Sm (Triana) Antibody <0.2 AI (0.0-0.9) 05/15/22 09:04 STOREROOM SUPERVISOR Antibody 0.5 AI (0.0-0.9) 05/15/22 09:04 Scl-70 Scleroderma Ab <0.2 AI (0.0-0.9) 05/15/22 09:04 Double Strand DNA Ab <1 IU/mL (0-9) 05/15/22 09:04 Ribosomal P Prot Ab <0.2 AI (0.0-0.9) 05/15/22 09:04 Chromatin Antibody <0.2 AI (0.0-0.9) 05/15/22 09:04 Centromere B Antibody <0.2 AI (0.0-0.9) 05/15/22 09:04 SARS-CoV-2 (PCR) NOT DETECTED 05/14/22 13:40 - Procedures Procedures: Procedures INSERTION OF INFUSION DEV INTO SUP VENA CAVA, PERC APPROACH (12/10/21)
[2022-05-31] MEDS: ATORVASTATIN 40 MG TABLET PO SCH (21:36)
[2022-06-01] MEDS: LEVOTHYROXINE 25 MCG TABLET PO SCH (06:30)
[2022-06-01] MEDS: oxyCODONE 5 MG TABLET PO PRN ×4 (06:31→23:13)
[2022-06-01] MEDS: ZINC OXIDE 20% OINT 30 GM TUBE TOP PRN (06:32)
[2022-06-01 09:50] LABS: CALCIUM 8.9 mg/dL (8.5-10.3); CREATININE 1.4 mg/dL (0.4-1.0); POTASSIUM 4.9 mmol/L (3.5-5.0)
[2022-06-01] MEDS: ENOXAPARIN 40 MG/0.4 ML SYRINGE SUBQ SCH (10:17)
[2022-06-01] MEDS: BACLOFEN 10 MG TABLET PO SCH ×2 (10:18→21:11)
[2022-06-01] MEDS: levETIRAcetam 250 MG TABLET PO SCH ×2 (10:18→21:10)
[2022-06-01] MEDS: LOSARTAN 50 MG TABLET PO SCH (10:18)
[2022-06-01] MEDS: DICLOFENAC SODIUM DR 75 MG TABLET PO SCH ×2 (10:18→21:11)
[2022-06-01] MEDS: ASPIRIN EC 81 MG TABLET PO SCH (10:18)
[2022-06-01] MEDS: CHOLECALCIFEROL 25 MCG TABLET PO SCH (10:18)
[2022-06-01] MEDS: DOCUSATE SODIUM 250 MG CAPSULE PO SCH (10:19)
[2022-06-01] MEDS: SENNA 8.6 MG TABLET PO SCH (10:19)
[2022-06-01] MEDS: carvediloL 3.125 MG TABLET PO SCH ×2 (10:19→21:10)
[2022-06-01] MEDS: polyethylene glycoL 3350 17 GM PACKET PO SCH (10:20)
[2022-06-01] MEDS: NYSTATIN POWDER 15 GM TOP SCH ×2 (10:20→21:11)
--- NOTE | 2022-06-01 11:37 | PROVIDER PROGRESS NOTE ---
Subjective - General Admit Date: 05/14/22 - Other Other Information/Narrative: Alert and oriented lying in bed in semirecumbent position. Patient has no concerns but reports knee pain when asked about her pain level She denies working with physical therapy and has not been up to chair today. She denies nausea and vomiting and is tolerating a diet well. She states she is tolerating the splint Objective - Patient Data Reviewed Vital Signs: Yes Vital Signs: Vital Signs x48h Temp Pulse Resp BP Pulse Ox 06/01/22 09:00 36.4 C L 81 18 112/57 L 94 06/01/22 04:51 36.3 C L 81 18 119/56 L 95 Intake & Output: Intake and Output Totals x24h 05/30/22 05/31/22 06/01/22 23:59 23:59 23:59 Intake Total 350 1980 1100 Output Total 1050 500 500 Balance -700 1480 600 - Lab Results Lab Results: 05/24/22 09:01 06/01/22 09:31 Other Lab Results: Lab Results x24hrs 06/01/22 Range/Units 09:31 Sodium 139 (135-145) mmol/L Potassium 4.9 (3.5-5.0) mmol/L Chloride 107 (101-111) mmol/L Carbon Dioxide 24 (21-32) mmol/L Anion Gap 8.0 (6-13) BUN 32 H (6-20) mg/dL Creatinine 1.4 H (0.4-1.0) mg/dL Estimated GFR (MDRD) 38 L (>89) Glucose 114 H (70-100) mg/dL Calcium 8.9 (8.5-10.3) mg/dL - Imaging Results Radiology Imaging: positive: Final report received - Current Medications Current Medications: Current Medications Generic Name Dose Route Start Last Admin Trade Name Freq PRN Reason Stop Dose Admin Acetaminophen 650 mg 05/14/22 15:41 05/31/22 01:05 Acetaminophen 325 Mg Tablet PO 650 mg Q4HR PRN Administration Pain 1 to 4, or Fever Aspirin 81 mg 05/16/22 09:00 06/01/22 10:18 Aspirin Ec 81 Mg Tablet PO 81 mg DAILY JIN Administration Atorvastatin Calcium 40 mg 05/29/22 21:00 05/31/22 21:36 Atorvastatin 40 Mg Tablet PO 40 mg QPM JIN Administration Baclofen 30 mg 05/15/22 21:00 06/01/22 10:18 Baclofen 10 Mg Tablet PO 30 mg BID JIN Administration Carboxymethylcellulose 1 drops 05/21/22 17:59 05/21/22 19:07 Carboxymethylcellulose Ophth Drops EACHEYE 1 drops PRN PRN Administration Dry Eye Carvedilol 3.125 mg 05/15/22 09:00 06/01/22 10:19 Carvedilol 3.125 Mg Tablet PO 3.125 mg BID JIN Administration Cholecalciferol 50 mcg 05/21/22 12:00 06/01/22 10:18 Cholecalciferol 25 Mcg Tablet PO 50 mcg DAILY JIN Administration Diclofenac Sodium 75 mg 05/18/22 21:00 06/01/22 10:[address] 75 Mg Tablet PO 75 mg BID JIN Administration Docusate Sodium 250 - 500 mg 05/18/22 09:00 06/01/22 10:19 Docusate Sodium 250 Mg Capsule PO 250 mg DAILY JIN Administration Enoxaparin Sodium 40 mg 05/15/22 09:00 06/01/22 10:17 Enoxaparin 40 Mg/0.4 Ml Syringe SUBQ 40 mg DAILY JIN Administration Fluticasone Propionate 1 sprays 05/15/22 08:38 05/19/22 13:09 Fluticasone Nasal [place] WILLIE 1 sprays BID PRN Administration Nasal Congestion Levetiracetam 500 mg 05/15/22 21:00 06/01/22 10:18 Levetiracetam 250 Mg Tablet PO 500 mg BID JIN Administration Levothyroxine Sodium 50 mcg 05/16/22 07:00 06/01/22 06:30 Levothyroxine 25 Mcg Tablet PO 50 mcg QDAC JIN Administration Losartan Potassium 12.5 mg 05/15/22 09:00 06/01/22 10:18 Losartan 50 Mg Tablet PO 12.5 mg DAILY JIN Administration Multi-Ingredient Ointment 1 applic 05/29/22 16:07 06/01/22 06:32 Zinc Oxide 20% Oint 30 Gm Tube TOP 1 applic PRN PRN Administration Skin Care Nystatin 1 applic 05/15/22 21:00 06/01/22 10:20 Nystatin Powder 15 Gm TOP 1 applic BID JIN Administration Oxycodone HCl 5 mg 05/14/22 15:41 06/01/22 06:31 Oxycodone 5 Mg Tablet PO 5 mg Q4HR PRN Administration Pain 5 to 7 Polyethylene Glycol 17 gm 05/17/22 12:00 06/01/22 10:20 Polyethylene Glycol 3350 17 Gm Packet PO 17 gm DAILY JIN Administration Senna 8.6 - 17.2 mg 05/18/22 09:00 06/01/22 10:19 Senna 8.6 Mg Tablet PO 8.6 mg DAILY JIN Administration - Physical Exam Comments/Other: No significant changes in physical exam, knee continues to be in flexion in the splint. Splint is still intact. Neurovascularly intact in the right lower extremity. Normal motion color and palpable pulses about her distal right foot. Splint is still well fitting, no irritation about the edges of the splint on the skin. Impression/Plan - Problem List Problem List: 66-year-old female who presented to the emergency department on 05/14/2022 after being found down after a fall. She was admitted for metabolic encephalopathy, acute kidney injury and frequent falls. On day 8 of admission she was found to have a minimally displaced supracondylar fracture of the right distal femur. Orthopedics is following the patient for non-operative management of non displaced supracondylar fracture. Patient was seen by myself and Dr. Garcia. She has been tolerating the splint well and is participating in physical and occupational therapy with toe touch weight bearing status. There continues to be no displacement with most recent x-ray and she is tolerating the splint without concern. Plan: - Continue nonoperative management for minimally displaced supracondylar fra cture right distal femur, date of injury 05/14/2022 - Splint to remain dry and intact, orthopedics will redress the splint as needed - Hinged knee brace should not be used while the splint is in place, ideally the patient will transition to the hinged knee brace but did not tolerate it previously - The goal is to transition to a hinged knee brace at 4 weeks from date of injury. - Continue physical therapy and Occupational Therapy with toe-touch weightbearing to right lower extremity - Pain management and deep venous thrombosis prophylaxis per hospitalist physician -Disposition pending social work assessment and placement - Monitor for sharp increases in pain despite pain regimen, swelling or other concerning features of compartment syndrome
[2022-06-01] MEDS: SODIUM CHLORIDE 0.9% 1,000 ML IV SCH ×2 (11:38→21:10)
--- NOTE | 2022-06-01 13:00 | PROVIDER PROGRESS NOTE ---
Assessment/Plan - Problem List (1) Acute kidney injury superimposed on CKD Assessment/Plan: We are still checking her BMP daily ever since her BUN/creatinine increase. These had improved for several days by encouraging p.o. fluids. Yesterday they were worse and an iv was started and she received 2L of NS. Plan: Will again order IV NS, 2 L more Cont to encourage po fluid intake and strict I's and O's ordered Avoid nephrotoxins Follow BMP daily (2) Metaphyseal fracture of bone of right lower extremity Assessment/Plan: From the Ortho note today: Orthopedics is following the patient for non-operative management of non displaced supracondylar fracture. Patient was seen by myself and Dr. Garcia. She has been tolerating the splint well and is participating in physical and occupational therapy with toe touch weight bearing status. There continues to be no displacement with most recent x-ray and she is tolerating the splint without concern. Plan: - Continue nonoperative management for minimally displaced supracondylar fracture right distal femur, date of injury 05/14/2022 - Splint to remain dry and intact, orthopedics will redress the splint as needed - Hinged knee brace should not be used while the splint is in place, ideally the patient will transition to the hinged knee brace but did not tolerate it previously - The goal is to transition to a hinged knee brace at 4 weeks from date of injury. - Continue physical therapy and Occupational Therapy with toe-touch weightbearing to right lower extremity - Pain management and deep venous thrombosis prophylaxis per hospitalist physician -Disposition pending social work assessment and placement - Monitor for sharp increases in pain despite pain regimen, swelling or other concerning features of compartment syndrome Chronic or resolved problems: (3) Frequent falls at home Impression: Per pt's story she slipped and fell on some milk this time. Has a history of frequent falls, prior back pain, ankle pain. History of back and ankle surgery. Xrays obtained in ED were negative for fractures. PT noticed that she was only toe touching on the right leg, could not bear weight because her right knee hurt. She does not have aortic stenosis, orthostatic hypotension, arrhythmia, anemia that would cause these frequent falls. Plan: PT/OT working w her. She is ordered to have weight bearing as tolerated. (4) History of seizures Impression: Per EMR was on keppra several admissions ago. Has presented to ED with delirium, etiology uncertain, UTI, dehydration, post-ictal. Plan: continue keppra (5) Cognitive impairment Impression: Last recent hospitalization 1 week ago had a SLUMS test done by OT. Score 11/30, indicating severly cognitively impaired, staff was not sure if she was actively participating to make that an accurate score. The impression we got was that she was irritated with all of this and was throwing us out of the room and did not want to cooperate with questions. 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 Plan: Social work is working on this placement. It is our wait for placement that keeps her here. (6) Coronary artery disease Impression: hx of NH Plan: continue therestarted b-briseida and baby aspirin daily, restarted her statin therapy Qualifiers: Coronary Disease-Associated Artery/Lesion type: [place] artery [place] vs. transplanted heart: [place] heart Associated angina: without angina Qualified Code(s): I25.10 - Atherosclerotic heart disease of [place] coronary artery without angina pectoris (7) Chronic HFrEF (heart failure with reduced ejection fraction) Impression: EF 35-40% by ECHO in 12/2021 Plan: b-briseida restarted, ARB restarted, restart spironolactone, no volume overload. (8) Altered mental status Impression: Resolved Has had several hospitalizations in past month, etiology felt to be post-ictal, dehydration, infectious Qualifiers: Altered mental status type: disorientation Qualified Code(s): R41.0 - Disorientation, unspecified (9) Rhabdomyolysis Impression: Resolved CK improved after IV fluids, taking good po intake now Qualifiers: Rhabdomyolysis type: non-traumatic Qualified Code(s): M62.82 - Rhabdomyolysis (10) Hypothyroidism Impression: high TSH 7.51 this admission. It is from not being on Synthroid for several days versus week Plan: Synthroid restarted at beginning of this adm, will check free T4, and TSH again in 4-6 weeks. Qualifiers: Hypothyroidism type: unspecified Qualified Code(s): E03.9 - Hypothyroidism, unspecified (11) HTN (hypertension) Impression: History of HTN, has been normotensive this admission Plan: monitor for HTN SBP>140 Qualifiers: Hypertension type: primary hypertension Qualified Code(s): I10 - Essential (primary) hypertension (12) Hx Multiple sclerosis As per Hx (13) Hyperlipidemia Impression: Plan: check HDL, LDL, triglycerides and ordered for the morning Qualifiers: Hyperlipidemia type: unspecified Qualified Code(s): E78.5 - Hyperlipidemia, unspecified (14) Hypernatremia Impression: Resolved (15) Hypokalemia Resolved - Current Meds Current Meds: Current Medications Generic Name Dose Route Start Last Admin Trade Name Freq PRN Reason Stop Dose Admin Acetaminophen 650 mg 05/14/22 15:41 05/31/22 01:05 Acetaminophen 325 Mg Tablet PO 650 mg Q4HR PRN Administration Pain 1 to 4, or Fever Aspirin 81 mg 05/16/22 09:00 06/01/22 10:18 Aspirin Ec 81 Mg Tablet PO 81 mg DAILY JIN Administration Atorvastatin Calcium 40 mg 05/29/22 21:00 05/31/22 21:36 Atorvastatin 40 Mg Tablet PO 40 mg QPM JIN Administration Baclofen 30 mg 05/15/22 21:00 06/01/22 10:18 Baclofen 10 Mg Tablet PO 30 mg BID JIN Administration Carboxymethylcellulose 1 drops 05/21/22 17:59 05/21/22 19:07 Carboxymethylcellulose Ophth Drops EACHEYE 1 drops PRN PRN Administration Dry Eye Carvedilol 3.125 mg 05/15/22 09:00 06/01/22 10:19 Carvedilol 3.125 Mg Tablet PO 3.125 mg BID JIN Administration Cholecalciferol 50 mcg 05/21/22 12:00 06/01/22 10:18 Cholecalciferol 25 Mcg Tablet PO 50 mcg DAILY JIN Administration Diclofenac Sodium 75 mg 05/18/22 21:00 06/01/22 10:[address] 75 Mg Tablet PO 75 mg BID JIN Administration Docusate Sodium 250 - 500 mg 05/18/22 09:00 06/01/22 10:19 Docusate Sodium 250 Mg Capsule PO 250 mg DAILY JIN Administration Enoxaparin Sodium 40 mg 05/15/22 09:00 06/01/22 10:17 Enoxaparin 40 Mg/0.4 Ml Syringe SUBQ 40 mg DAILY JIN Administration Fluticasone Propionate 1 sprays 05/15/22 08:38 05/19/22 13:09 Fluticasone Nasal Nixon WILLIE 1 sprays BID PRN Administration Nasal Congestion Sodium Chloride 1,000 mls @ 100 mls/hr 06/01/22 11:00 06/01/22 11:38 Normal Saline 0.9% IV 06/02/22 06:59 100 mls/hr .Q10H JIN Administration Levetiracetam 500 mg 05/15/22 21:00 06/01/22 10:18 Levetiracetam 250 Mg Tablet PO 500 mg BID JIN Administration Levothyroxine Sodium 50 mcg 05/16/22 07:00 06/01/22 06:30 Levothyroxine 25 Mcg Tablet PO 50 mcg QDAC JIN Administration Losartan Potassium 12.5 mg 05/15/22 09:00 06/01/22 10:18 Losartan 50 Mg Tablet PO 12.5 mg DAILY JIN Administration Multi-Ingredient Ointment 1 applic 05/29/22 16:07 06/01/22 06:32 Zinc Oxide 20% Oint 30 Gm Tube TOP 1 applic PRN PRN Administration Skin Care Nystatin 1 applic 05/15/22 21:00 06/01/22 10:20 Nystatin Powder 15 Gm TOP 1 applic BID JIN Administration Oxycodone HCl 5 mg 05/14/22 15:41 06/01/22 06:31 Oxycodone 5 Mg Tablet PO 5 mg Q4HR PRN Administration Pain 5 to 7 Polyethylene Glycol 17 gm 05/17/22 12:00 06/01/22 10:20 Polyethylene Glycol 3350 17 Gm Packet PO 17 gm DAILY JIN Administration Senna 8.6 - 17.2 mg 05/18/22 09:00 06/01/22 10:19 Senna 8.6 Mg Tablet PO 8.6 mg DAILY JIN Administration - Lab Result Fish Bone Diagrams: 05/24/22 09:01 06/01/22 09:31 - Additional Planning My Orders: My Active Orders 06/01/22 10:52 Miscellaenous Nursing Order [RC] QSHIFT 06/01/22 11:00 Sodium Chloride 0.9% [Normal Saline 0.9%] 1,000 ml IV 100 mls/hr 06/02/22 05:00 BMP - BASIC METABOLIC PANEL [CHEM] DAILYLAB Subjective - Subjective Patient Reports: Resting Comfortably (No new complaints) Objective Vital Signs: Vital Signs - 24 hr 05/31/22 06/01/22 06/01/22 15:49 04:51 09:00 Temperature 36.2 C L 36.3 C L 36.4 C L Heart Rate [ 67 81 81 Brachial] Respiratory 16 18 18 Rate Blood Pressure 90/60 119/56 L 112/57 L [Right Brachial artery] O2 Saturation 99 95 94 Oxygen O2 Source [With Activity] Room air O2 Source [Without Activity] Room air O2 Source Room air I&O (Last 24 Hrs): Intake and Output Totals x24h 05/30/22 05/31/22 06/01/22 23:59 23:59 23:59 Intake Total 350 1980 1250 Output Total 1050 500 500 Balance -700 1480 750 General: Alert, Oriented x3 HEENT: Mucous membr. moist/pink Neck: Supple Neuro: Non Focal Respiratory: No respiratory distress Abdomen: Soft Extremities: Other (R knee tender) - Results Results: Laboratory Results WBC 8.9 x10^3/uL (4.8-10.8) 05/24/22 09:01 RBC 4.32 10^6/uL (4.20-5.40) 05/24/22 09:01 Hgb 12.1 g/dL (12.0-16.0) 05/24/22 09:01 Hct 39.7 % (37.0-47.0) 05/24/22 09:01 MCV 91.9 fL (81.0-99.0) 05/24/22 09:01 MCH 28.0 pg (27.0-31.0) 05/24/22 09:01 MCHC 30.5 g/dL (32.0-36.0) L 05/24/22 09:01 RDW 15.9 % (12.0-15.0) H 05/24/22 09:01 Plt Count 255 10^3/uL (130-450) 05/24/22 09:01 MPV 11.2 fL (7.9-10.8) H 05/24/22 09:01 Neut # (Auto) 5.9 10^3/uL (1.5-6.6) 05/24/22 09:01 Lymph # (Auto) 2.3 10^3/uL (1.5-3.5) 05/24/22 09:01 [place] # (Auto) 0.6 10^3/uL (0.0-1.0) 05/24/22 09:01 Eos # (Auto) 0.0 10^3/uL (0.0-0.7) 05/24/22 09:01 Baso # (Auto) 0.1 10^3/uL (0.0-0.1) 05/24/22 09:01 Absolute Nucleated RBC 0.00 x10^3/uL 05/24/22 09:01 Nucleated RBC % 0.0 /100WBC 05/24/22 09:01 Sodium 139 mmol/L (135-145) 06/01/22 09:31 Potassium 4.9 mmol/L (3.5-5.0) 06/01/22 09:31 Chloride 107 mmol/L (101-111) 06/01/22 09:31 Carbon Dioxide 24 mmol/L (21-32) 06/01/22 09:31 Anion Gap 8.0 (6-13) 06/01/22 09:31 BUN 32 mg/dL (6-20) H 06/01/22 09:31 Creatinine 1.4 mg/dL (0.4-1.0) H 06/01/22 09:31 Estimated GFR (MDRD) 38 (>89) L 06/01/22 09:31 Glucose 114 mg/dL (70-100) H 06/01/22 09:31 Lactic Acid 1.6 mmol/L (0.5-2.2) 05/14/22 11:58 Calcium 8.9 mg/dL (8.5-10.3) 06/01/22 09:31 Total Bilirubin 0.9 mg/dL (0.2-1.0) 05/14/22 11:58 AST 73 IU/L (10-42) H 05/14/22 11:58 ALT 28 IU/L (10-60) 05/14/22 11:58 Alkaline Phosphatase 120 IU/L (42-121) 05/14/22 11:58 Ammonia 12.4 umol/L (7-35) 05/14/22 11:58 Total Creatine Kinase 742 IU/L (22-269) H 05/18/22 04:47 C-Reactive Protein 11.3 mg/dL (0-1.0) H 05/15/22 04:15 B-Natriuretic Peptide 468 pg/mL (5-100) H 05/14/22 11:58 Total Protein 8.3 g/dL (6.7-8.2) H 05/14/22 11:58 Albumin 4.0 g/dL (3.2-5.5) 05/14/22 11:58 Globulin 4.3 g/dL (2.1-4.2) H 05/14/22 11:58 Albumin/Globulin Ratio 0.9 (1.0-2.2) L 05/14/22 11:58 Triglycerides 201 mg/dL (-149) H 05/29/22 04:40 Cholesterol 251 mg/dL (-199) H 05/29/22 04:40 LDL Cholesterol, Calc 177 mg/dL (-129) H 05/29/22 04:40 VLDL Cholesterol 40 mg/dL 05/29/22 04:40 HDL Cholesterol 34 mg/dL (60-) L 05/29/22 04:40 LDL/HDL Ratio 5.2 (<4.4) 05/29/22 04:40 Cholesterol/HDL Ratio 7.4 (<4.4) 05/29/22 04:40 Lipase 31 U/L (22-51) 05/14/22 11:58 TSH 4.51 uIU/mL (0.34-5.60) 05/30/22 10:09 Cortisol AM Sample 6.3 ug/dL 05/29/22 04:40 Urine Color YELLOW 05/14/22 12:40 Urine Clarity HAZY (CLEAR) 05/14/22 12:40 Urine pH 6.0 PH (5.0-7.5) 05/14/22 12:40 Ur Specific [place] 1.025 (1.002-1.030) 05/14/22 12:40 Urine Protein 30 mg/dL (NEGATIVE) H 05/14/22 12:40 Urine Glucose (UA) NEGATIVE mg/dL (NEGATIVE) 05/14/22 12:40 Urine Ketones TRACE mg/dL (NEGATIVE) 05/14/22 12:40 Urine Occult Blood LARGE (NEGATIVE) H 05/14/22 12:40 Urine Nitrite NEGATIVE (NEGATIVE) 05/14/22 12:40 Urine Bilirubin NEGATIVE (NEGATIVE) 05/14/22 12:40 Urine Urobilinogen 0.2 (NORMAL) E.U./dL (NORMAL) 05/14/22 12:40 Ur Leukocyte Esterase NEGATIVE (NEGATIVE) 05/14/22 12:40 Urine RBC 6-10 /HPF (0-5) H 05/14/22 12:40 Urine WBC 0-3 /HPF (0-5) 05/14/22 12:40 Ur Squamous Epith Cells MOD Squamous (<= Few) H 05/14/22 12:40 Urine Bacteria Few /HPF (None Seen) 05/14/22 12:40 Urine Casts 0-2 Fine Granular /LPF0-2 Hyaline Casts /LPF 05/14/22 12:40 Urine Casts 0-2 Fine Granular /LPF0-2 Hyaline Casts /LPF 05/14/22 12:40 Ur Microscopic Review INDICATED 05/14/22 12:40 Urine Culture Comments NOT INDICATED 05/14/22 12:40 Urine Opiates Screen NEGATIVE (NEGATIVE) 05/14/22 12:40 Ur Oxycodone Screen POSITIVE (NEGATIVE) H 05/14/22 12:40 Urine Methadone Screen NEGATIVE (NEGATIVE) 05/14/22 12:40 Ur Propoxyphene Screen NEGATIVE (NEGATIVE) 05/14/22 12:40 Ur Barbiturates Screen NEGATIVE (NEGATIVE) 05/14/22 12:40 Ur Tricyclics Screen NEGATIVE (NEGATIVE) 05/14/22 12:40 Ur Phencyclidine Scrn NEGATIVE (NEGATIVE) 05/14/22 12:40 Ur Amphetamine Screen NEGATIVE (NEGATIVE) 05/14/22 12:40 U Methamphetamines Scrn NEGATIVE (NEGATIVE) 05/14/22 12:40 U Benzodiazepines Scrn NEGATIVE (NEGATIVE) 05/14/22 12:40 Urine Cocaine Screen NEGATIVE (NEGATIVE) 05/14/22 12:40 U Cannabinoids Screen NEGATIVE (NEGATIVE) 05/14/22 12:40 Ethyl Alcohol < 5.0 mg/dL 05/14/22 11:58 MAC Interpretation Comment (.) 05/15/22 09:04 Anti-sm/WAX PATTERN REPAIRER Abs <0.2 AI (0.0-0.9) 05/15/22 09:04 RAFAELA-1 Antibody <0.2 AI (0.0-0.9) 05/15/22 09:04 SS-A/Ro Antibody <0.2 AI (0.0-0.9) 05/15/22 09:04 SS-B/La Antibody 0.4 AI (0.0-0.9) 05/15/22 09:04 Sm (Triana) Antibody <0.2 AI (0.0-0.9) 05/15/22 09:04 WAX PATTERN REPAIRER Antibody 0.5 AI (0.0-0.9) 05/15/22 09:04 Scl-70 Scleroderma Ab <0.2 AI (0.0-0.9) 05/15/22 09:04 Double Strand DNA Ab <1 IU/mL (0-9) 05/15/22 09:04 Ribosomal P Prot Ab <0.2 AI (0.0-0.9) 05/15/22 09:04 Chromatin Antibody <0.2 AI (0.0-0.9) 05/15/22 09:04 Centromere B Antibody <0.2 AI (0.0-0.9) 05/15/22 09:04 SARS-CoV-2 (PCR) NOT DETECTED 05/14/22 13:40 - Procedures Procedures: Procedures INSERTION OF INFUSION DEV INTO SUP VENA CAVA, PERC APPROACH (12/10/21)
[2022-06-01] MEDS: ACETAMINOPHEN 325 MG TABLET PO PRN ×2 (18:36→23:12)
[2022-06-01] MEDS: ATORVASTATIN 40 MG TABLET PO SCH (21:11)
[2022-06-02] MEDS: oxyCODONE 5 MG TABLET PO PRN ×4 (04:42→20:42)
[2022-06-02] MEDS: ACETAMINOPHEN 325 MG TABLET PO PRN ×2 (04:42→20:42)
[2022-06-02 06:11] LABS: CALCIUM 9.2 mg/dL (8.5-10.3); CREATININE 1.1 mg/dL (0.4-1.0)
[2022-06-02] MEDS: LEVOTHYROXINE 25 MCG TABLET PO SCH (06:15)
[2022-06-02] MEDS: ENOXAPARIN 40 MG/0.4 ML SYRINGE SUBQ SCH (08:18)
[2022-06-02] MEDS: polyethylene glycoL 3350 17 GM PACKET PO SCH (08:18)
[2022-06-02] MEDS: BACLOFEN 10 MG TABLET PO SCH ×2 (08:19→20:41)
[2022-06-02] MEDS: levETIRAcetam 250 MG TABLET PO SCH ×2 (08:19→20:42)
[2022-06-02] MEDS: DICLOFENAC SODIUM DR 75 MG TABLET PO SCH ×2 (08:19→20:41)
[2022-06-02] MEDS: DOCUSATE SODIUM 250 MG CAPSULE PO SCH (08:19)
[2022-06-02] MEDS: ASPIRIN EC 81 MG TABLET PO SCH (08:19)
[2022-06-02] MEDS: carvediloL 3.125 MG TABLET PO SCH ×2 (08:20→20:41)
[2022-06-02] MEDS: LOSARTAN 50 MG TABLET PO SCH (08:20)
[2022-06-02] MEDS: SENNA 8.6 MG TABLET PO SCH (08:20)
[2022-06-02] MEDS: CHOLECALCIFEROL 25 MCG TABLET PO SCH (08:21)
[2022-06-02] MEDS: SODIUM CHLORIDE 0.9% 1,000 ML IV SCH ×2 (12:02→23:56)
[2022-06-02] MEDS: NYSTATIN POWDER 15 GM TOP SCH ×2 (12:02→20:42)
--- NOTE | 2022-06-02 16:16 | PROVIDER PROGRESS NOTE ---
Assessment/Plan - Problem List (1) Acute kidney injury superimposed on CKD Assessment/Plan: We are still checking her BMP daily ever since her BUN/creatinine increase. These had improved for several days by encouraging p.o. fluids. Then BUN/creat were worse and an iv was started and she received 2L of NS. Plan: Will again order IV NS, 2 L more today Cont to encourage po fluid intake and strict I's and O's were ordered Avoid nephrotoxins Follow BMP daily (2) Metaphyseal fracture of bone of right lower extremity Assessment/Plan: From the Ortho note of 06/01: Orthopedics is following the patient for non-operative management of non displaced supracondylar fracture. Patient was seen by myself and Dr. Garcia. She has been tolerating the splint well and is participating in physical and occupational therapy with toe touch weight bearing status. There continues to be no displacement with most recent x-ray and she is tolerating the splint without concern. Plan: - Continue nonoperative management for minimally displaced supracondylar fracture right distal femur, date of injury 05/14/2022 - Splint to remain dry and intact, orthopedics will redress the splint as needed - Hinged knee brace should not be used while the splint is in place, ideally the patient will transition to the hinged knee brace but did not tolerate it previously - The goal is to transition to a hinged knee brace at 4 weeks from date of injury. - Continue physical therapy and Occupational Therapy with toe-touch weightbearing to right lower extremity - Pain management and deep venous thrombosis prophylaxis per hospitalist physician -Disposition pending social work assessment and placement - Monitor for sharp increases in pain despite pain regimen, swelling or other concerning features of compartment syndrome Chronic or resolved problems: (3) Frequent falls at home Impression: Per pt's story she slipped and fell on some milk this time. Has a history of frequent falls, prior back pain, ankle pain. History of back and ankle surgery. Xrays obtained in ED were negative for fractures. PT noticed that she was only toe touching on the right leg, could not bear weight because her right knee hurt. She does not have aortic stenosis, orthostatic hypotension, arrhythmia, anemia that would cause these frequent falls. Plan: PT/OT working w her. She is ordered to have weight bearing as tolerated. (4) History of seizures Impression: Per EMR was on keppra several admissions ago. Has presented to ED with delirium, etiology uncertain, UTI, dehydration, post-ictal. Plan: continue keppra (5) Cognitive impairment Impression: Last recent hospitalization 1 week ago had a SLUMS test done by OT. Score 11/30, indicating severly cognitively impaired, staff was not sure if she was actively participating to make that an accurate score. The impression we got was that she was irritated with all of this and was throwing us out of the room and did not want to cooperate with questions. During this admission, she has agreed to go to [facility] placement and want to go to [place] [facility]. Plan: Social work is working on this placement. It is our wait for placement that keeps her here. (6) Coronary artery disease Impression: hx of [place] Plan: continue therestarted b-briseida and baby aspirin daily, restarted her statin therapy Qualifiers: Coronary Disease-Associated Artery/Lesion type: [place] artery [place] vs. transplanted heart: [place] heart Associated angina: without angina Qualified Code(s): I25.10 - Atherosclerotic heart disease of [place] coronary artery witho ut angina pectoris (7) Chronic HFrEF (heart failure with reduced ejection fraction) Impression: EF 35-40% by ECHO in 12/2021 Plan: b-briseida restarted, ARB restarted, restart spironolactone, no volume overload. (8) Altered mental status Impression: Resolved Has had several hospitalizations in past month, etiology felt to be post-ictal, dehydration, infectious Qualifiers: Altered mental status type: disorientation Qualified Code(s): R41.0 - Disorientation, unspecified (9) Rhabdomyolysis Impression: Resolved CK improved after IV fluids, taking good po intake now Qualifiers: Rhabdomyolysis type: non-traumatic Qualified Code(s): M62.82 - Rhabdomyolysis (10) Hypothyroidism Impression: high TSH 7.51 this admission. It is from not being on Synthroid for several days versus week Plan: Synthroid restarted at beginning of this adm, will check free T4, and TSH again in 4-6 weeks. Qualifiers: Hypothyroidism type: unspecified Qualified Code(s): E03.9 - Hypothyroidism, unspecified (11) HTN (hypertension) Impression: History of HTN, has been normotensive this admission Plan: monitor for HTN SBP>140 Qualifiers: Hypertension type: primary hypertension Qualified Code(s): I10 - Essential (primary) hypertension (12) Hx Multiple sclerosis As per Hx (13) Hyperlipidemia Impression: Plan: check HDL, LDL, triglycerides and ordered for the morning Qualifiers: Hyperlipidemia type: unspecified Qualified Code(s): E78.5 - Hyperlipidemia, unspecified (14) Hypernatremia Impression: Resolved (15) Hypokalemia Resolved - Current Meds Current Meds: Current Medications Generic Name Dose Route Start Last Admin Trade Name Freq PRN Reason Stop Dose Admin Acetaminophen 650 mg 05/14/22 15:41 06/02/22 04:42 Acetaminophen 325 Mg Tablet PO 650 mg Q4HR PRN Administration Pain 1 to 4, or Fever Aspirin 81 mg 05/16/22 09:00 06/02/22 08:19 Aspirin Ec 81 Mg Tablet PO 81 mg DAILY JIN Administration Atorvastatin Calcium 40 mg 05/29/22 21:00 06/01/22 21:11 Atorvastatin 40 Mg Tablet PO 40 mg QPM JIN Administration Baclofen 30 mg 05/15/22 21:00 06/02/22 08:19 Baclofen 10 Mg Tablet PO 30 mg BID JNI Administration Carboxymethylcellulose 1 drops 05/21/22 17:59 05/21/22 19:07 Carboxymethylcellulose Ophth Drops EACHEYE 1 drops PRN PRN Administration Dry Eye Carvedilol 3.125 mg 05/15/22 09:00 06/02/22 08:20 Carvedilol 3.125 Mg Tablet PO 3.125 mg BID JIN Administration Cholecalciferol 50 mcg 05/21/22 12:00 06/02/22 08:21 Cholecalciferol 25 Mcg Tablet PO 50 mcg DAILY JIN Administration Diclofenac Sodium 75 mg 05/18/22 21:00 06/02/22 08:[address] 75 Mg Tablet PO 75 mg BID JIN Administration Docusate Sodium 250 - 500 mg 05/18/22 09:00 06/02/22 08:19 Docusate Sodium 250 Mg Capsule PO 250 mg DAILY JIN Administration Enoxaparin Sodium 40 mg 05/15/22 09:00 06/02/22 08:18 Enoxaparin 40 Mg/0.4 Ml Syringe SUBQ 40 mg DAILY JIN Administration Fluticasone Propionate 1 sprays 05/15/22 08:38 05/19/22 13:09 Fluticasone Nasal [place] 1 sprays BID PRN Administration Nasal Congestion Sodium Chloride 1,000 mls @ 83.333 mls/hr 06/02/22 10:00 06/02/22 12:02 Normal Saline 0.9% IV 06/03/22 09:59 83.333 mls/hr .Q12H JIN Administration Levetiracetam 500 mg 05/15/22 21:00 06/02/22 08:19 Levetiracetam 250 Mg Tablet PO 500 mg BID JIN Administration Levothyroxine Sodium 50 mcg 05/16/22 07:00 06/02/22 06:15 Levothyroxine 25 Mcg Tablet PO 50 mcg QDAC JIN Administration Losartan Potassium 12.5 mg 05/15/22 09:00 06/02/22 08:20 Losartan 50 Mg Tablet PO 12.5 mg DAILY JIN Administration Multi-Ingredient Ointment 1 applic 05/29/22 16:07 06/01/22 06:32 Zinc Oxide 20% Oint 30 Gm Tube TOP 1 applic PRN PRN Administration Skin Care Nystatin 1 applic 05/15/22 21:00 06/02/22 12:02 Nystatin Powder 15 Gm TOP 1 applic BID JIN Administration Oxycodone HCl 5 mg 05/14/22 15:41 06/02/22 13:17 Oxycodone 5 Mg Tablet PO 5 mg Q4HR PRN Administration Pain 5 to 7 Polyethylene Glycol 17 gm 05/17/22 12:00 06/02/22 08:18 Polyethylene Glycol 3350 17 Gm Packet PO 17 gm DAILY JIN Administration Senna 8.6 - 17.2 mg 05/18/22 09:00 06/02/22 08:20 Senna 8.6 Mg Tablet PO 8.6 mg DAILY JIN Administration - Lab Result Fish Bone Diagrams: 05/24/22 09:01 06/02/22 05:52 - Additional Planning My Orders: My Active Orders 06/02/22 10:00 Sodium Chloride 0.9% [Normal Saline 0.9%] 1,000 ml IV 83.333 mls/hr Subjective - Subjective Patient Reports: Resting Comfortably Objective Vital Signs: Vital Signs - 24 hr 06/01/22 06/02/22 21:00 08:05 Temperature 36.4 C L 36.4 C L Heart Rate [ 71 73 Brachial] Respiratory 16 18 Rate Blood Pressure 108/63 130/66 [Right Brachial artery] O2 Saturation 92 98 Oxygen O2 Source [With Activity] Room air O2 Source [Without Activity] Room air O2 Source Room air I&O (Last 24 Hrs): Intake and Output Totals x24h 05/31/22 06/01/22 06/02/22 23:59 23:59 23:59 Intake Total 1979 2983.333 1320.000 Output Total 500 1450 1200 Balance 1480 1533.333 120.000 General: Alert Neck: Supple Neuro: Non Focal Respiratory: No respiratory distress Abdomen: Soft - Results Results: Laboratory Results WBC 8.9 x10^3/uL (4.8-10.8) 05/24/22 09:01 RBC 4.32 10^6/uL (4.20-5.40) 05/24/22 09:01 Hgb 12.1 g/dL (12.0-16.0) 05/24/22 09:01 Hct 39.7 % (37.0-47.0) 05/24/22 09:01 MCV 91.9 fL (81.0-99.0) 05/24/22 09:01 MCH 28.0 pg (27.0-31.0) 05/24/22 09:01 MCHC 30.5 g/dL (32.0-36.0) L 05/24/22 09:01 RDW 15.9 % (12.0-15.0) H 05/24/22 09:01 Plt Count 255 10^3/uL (130-450) 05/24/22 09:01 MPV 11.2 fL (7.9-10.8) H 05/24/22 09:01 Neut # (Auto) 5.9 10^3/uL (1.5-6.6) 05/24/22 09:01 Lymph # (Auto) 2.3 10^3/uL (1.5-3.5) 05/24/22 09:01 [place] # (Auto) 0.6 10^3/uL (0.0-1.0) 05/24/22 09:01 Eos # (Auto) 0.0 10^3/uL (0.0-0.7) 05/24/22 09:01 Baso # (Auto) 0.1 10^3/uL (0.0-0.1) 05/24/22 09:01 Absolute Nucleated RBC 0.00 x10^3/uL 05/24/22 09:01 Nucleated RBC % 0.0 /100WBC 05/24/22 09:01 Sodium 138 mmol/L (135-145) 06/02/22 05:52 Potassium 5.0 mmol/L (3.5-5.0) 06/02/22 05:52 Chloride 108 mmol/L (101-111) 06/02/22 05:52 Carbon Dioxide 24 mmol/L (21-32) 06/02/22 05:52 Anion Gap 6.0 (6-13) 06/02/22 05:52 BUN 26 mg/dL (6-20) H 06/02/22 05:52 Creatinine 1.1 mg/dL (0.4-1.0) H 06/02/22 05:52 Estimated GFR (MDRD) 50 (>89) L 06/02/22 05:52 Glucose 84 mg/dL (70-100) 06/02/22 05:52 Lactic Acid 1.6 mmol/L (0.5-2.2) 05/14/22 11:58 Calcium 9.2 mg/dL (8.5-10.3) 06/02/22 05:52 Total Bilirubin 0.9 mg/dL (0.2-1.0) 05/14/22 11:58 AST 73 IU/L (10-42) H 05/14/22 11:58 ALT 28 IU/L (10-60) 05/14/22 11:58 Alkaline Phosphatase 120 IU/L (42-121) 05/14/22 11:58 Ammonia 12.4 umol/L (7-35) 05/14/22 11:58 Total Creatine Kinase 742 IU/L (22-269) H 05/18/22 04:47 C-Reactive Protein 11.3 mg/dL (0-1.0) H 05/15/22 04:15 B-Natriuretic Peptide 468 pg/mL (5-100) H 05/14/22 11:58 Total Protein 8.3 g/dL (6.7-8.2) H 05/14/22 11:58 Albumin 4.0 g/dL (3.2-5.5) 05/14/22 11:58 Globulin 4.3 g/dL (2.1-4.2) H 05/14/22 11:58 Albumin/Globulin Ratio 0.9 (1.0-2.2) L 05/14/22 11:58 Triglycerides 201 mg/dL (-149) H 05/29/22 04:40 Cholesterol 251 mg/dL (-199) H 05/29/22 04:40 LDL Cholesterol, Calc 177 mg/dL (-129) H 05/29/22 04:40 VLDL Cholesterol 40 mg/dL 05/29/22 04:40 HDL Cholesterol 34 mg/dL (60-) L 05/29/22 04:40 LDL/HDL Ratio 5.2 (<4.4) 05/29/22 04:40 Cholesterol/HDL Ratio 7.4 (<4.4) 05/29/22 04:40 Lipase 31 U/L (22-51) 05/14/22 11:58 TSH 4.51 uIU/mL (0.34-5.60) 05/30/22 10:09 Cortisol AM Sample 6.3 ug/dL 05/29/22 04:40 Urine Color YELLOW 05/14/22 12:40 Urine Clarity HAZY (CLEAR) 05/14/22 12:40 Urine pH 6.0 PH (5.0-7.5) 05/14/22 12:40 Ur Specific [place] 1.025 (1.002-1.030) 05/14/22 12:40 Urine Protein 30 mg/dL (NEGATIVE) H 05/14/22 12:40 Urine Glucose (UA) NEGATIVE mg/dL (NEGATIVE) 05/14/22 12:40 Urine Ketones TRACE mg/dL (NEGATIVE) 05/14/22 12:40 Urine Occult Blood LARGE (NEGATIVE) H 05/14/22 12:40 Urine Nitrite NEGATIVE (NEGATIVE) 05/14/22 12:40 Urine Bilirubin NEGATIVE (NEGATIVE) 05/14/22 12:40 Urine Urobilinogen 0.2 (NORMAL) E.U./dL (NORMAL) 05/14/22 12:40 Ur Leukocyte Esterase NEGATIVE (NEGATIVE) 05/14/22 12:40 Urine RBC 6-10 /HPF (0-5) H 05/14/22 12:40 Urine WBC 0-3 /HPF (0-5) 05/14/22 12:40 Ur Squamous Epith Cells MOD Squamous (<= Few) H 05/14/22 12:40 Urine Bacteria Few /HPF (None Seen) 05/14/22 12:40 Urine Casts 0-2 Fine Granular /LPF0-2 Hyaline Casts /LPF 05/14/22 12:40 Urine Casts 0-2 Fine Granular /LPF0-2 Hyaline Casts /LPF 05/14/22 12:40 Ur Microscopic Review INDICATED 05/14/22 12:40 Urine Culture Comments NOT INDICATED 05/14/22 12:40 Urine Opiates Screen NEGATIVE (NEGATIVE) 05/14/22 12:40 Ur Oxycodone Screen POSITIVE (NEGATIVE) H 05/14/22 12:40 Urine Methadone Screen NEGATIVE (NEGATIVE) 05/14/22 12:40 Ur Propoxyphene Screen NEGATIVE (NEGATIVE) 05/14/22 12:40 Ur Barbiturates Screen NEGATIVE (NEGATIVE) 05/14/22 12:40 Ur Tricyclics Screen NEGATIVE (NEGATIVE) 05/14/22 12:40 Ur Phencyclidine Scrn NEGATIVE (NEGATIVE) 05/14/22 12:40 Ur Amphetamine Screen NEGATIVE (NEGATIVE) 05/14/22 12:40 U Methamphetamines Scrn NEGATIVE (NEGATIVE) 05/14/22 12:40 U Benzodiazepines Scrn NEGATIVE (NEGATIVE) 05/14/22 12:40 Urine Cocaine Screen NEGATIVE (NEGATIVE) 05/14/22 12:40 U Cannabinoids Screen NEGATIVE (NEGATIVE) 05/14/22 12:40 Ethyl Alcohol < 5.0 mg/dL 05/14/22 11:58 MAC Interpretation Comment (.) 05/15/22 09:04 Anti-sm/BAG SHAKER Abs <0.2 AI (0.0-0.9) 05/15/22 09:04 RAFAELA-1 Antibody <0.2 AI (0.0-0.9) 05/15/22 09:04 SS-A/Ro Antibody <0.2 AI (0.0-0.9) 05/15/22 09:04 SS-B/La Antibody 0.4 AI (0.0-0.9) 05/15/22 09:04 Sm (Triana) Antibody <0.2 AI (0.0-0.9) 05/15/22 09:04 BAG SHAKER Antibody 0.5 AI (0.0-0.9) 05/15/22 09:04 Scl-70 Scleroderma Ab <0.2 AI (0.0-0.9) 05/15/22 09:04 Double Strand DNA Ab <1 IU/mL (0-9) 05/15/22 09:04 Ribosomal P Prot Ab <0.2 AI (0.0-0.9) 05/15/22 09:04 Chromatin Antibody <0.2 AI (0.0-0.9) 05/15/22 09:04 Centromere B Antibody <0.2 AI (0.0-0.9) 05/15/22 09:04 SARS-CoV-2 (PCR) NOT DETECTED 05/14/22 13:40 - Procedures Procedures: Procedures INSERTION OF INFUSION DEV INTO SUP VENA CAVA, PERC APPROACH (12/10/21)
[2022-06-02] MEDS: ATORVASTATIN 40 MG TABLET PO SCH (20:42)
[2022-06-03] MEDS: ACETAMINOPHEN 325 MG TABLET PO PRN ×2 (05:12→21:25)
[2022-06-03] MEDS: oxyCODONE 5 MG TABLET PO PRN ×4 (05:12→20:16)
[2022-06-03] MEDS: LEVOTHYROXINE 25 MCG TABLET PO SCH (06:31)
[2022-06-03] MEDS: SENNA 8.6 MG TABLET PO SCH (09:52)
[2022-06-03] MEDS: polyethylene glycoL 3350 17 GM PACKET PO SCH (09:52)
[2022-06-03] MEDS: ENOXAPARIN 40 MG/0.4 ML SYRINGE SUBQ SCH (09:52)
[2022-06-03] MEDS: carvediloL 3.125 MG TABLET PO SCH ×2 (09:53→20:16)
[2022-06-03] MEDS: LOSARTAN 50 MG TABLET PO SCH (09:53)
[2022-06-03] MEDS: levETIRAcetam 250 MG TABLET PO SCH ×2 (09:53→20:16)
[2022-06-03] MEDS: DICLOFENAC SODIUM DR 75 MG TABLET PO SCH ×2 (09:53→20:16)
[2022-06-03] MEDS: BACLOFEN 10 MG TABLET PO SCH ×2 (09:53→20:16)
[2022-06-03] MEDS: ASPIRIN EC 81 MG TABLET PO SCH (09:53)
[2022-06-03] MEDS: NYSTATIN POWDER 15 GM TOP SCH ×2 (09:54→20:19)
[2022-06-03] MEDS: CHOLECALCIFEROL 25 MCG TABLET PO SCH (09:54)
[2022-06-03] MEDS: DOCUSATE SODIUM 250 MG CAPSULE PO SCH (09:54)
--- NOTE | 2022-06-03 13:15 | PROVIDER PROGRESS NOTE ---
Assessment/Plan - Problem List (1) Acute kidney injury superimposed on CKD Assessment/Plan: We are still checking her BMP daily ever since her BUN/creatinine increase. An iv was started and she received 2L of NS daily for the past 3 days. I reviewed all her labs and BUN/creat have improved Plan: Cont to encourage po fluid intake and strict I's and O's were ordered Avoid nephrotoxins Follow BMP daily (2) Metaphyseal fracture of bone of right lower extremity Assessment/Plan: From the Ortho note of 06/01: Orthopedics is following the patient for non-operative management of non displaced supracondylar fracture. Patient was seen by myself and Dr. Garcia. She has been tolerating the splint well and is participating in physical and occupational therapy with toe touch weight bearing status. There continues to be no displacement with most recent x-ray and she is tolerating the splint without concern. Plan: - Continue nonoperative management for minimally displaced supracondylar fracture right distal femur, date of injury 05/14/2022 - Splint to remain dry and intact, orthopedics will redress the splint as needed - Hinged knee brace should not be used while the splint is in place, ideally the patient will transition to the hinged knee brace but did not tolerate it previously - The goal is to transition to a hinged knee brace at 4 weeks from date of injury. - Continue physical therapy and Occupational Therapy with toe-touch weightbearing to right lower extremity - Pain management and deep venous thrombosis prophylaxis per hospitalist ph ysician -Disposition pending social work assessment and placement - Monitor for sharp increases in pain despite pain regimen, swelling or other concerning features of compartment syndrome Chronic or resolved problems: (3) Frequent falls at home Impression: Per pt's story she slipped and fell on some milk this time. Has a history of frequent falls, prior back pain, ankle pain. History of back and ankle surgery. Xrays obtained in ED were negative for fractures. PT noticed that she was only toe touching on the right leg, could not bear weight because her right knee hurt. She does not have aortic stenosis, orthostatic hypotension, arrhythmia, anemia that would cause these frequent falls. Plan: PT/OT working w her. She is ordered to have weight bearing as tolerated. (4) History of seizures Impression: Per EMR was on keppra several admissions ago. Has presented to ED with delirium, etiology uncertain, UTI, dehydration, post-ictal. Plan: continue keestefania (5) Cognitive impairment Impression: Last recent hospitalization 1 week ago had a SLUMS test done by OT. Score 11/30, indicating severly cognitively impaired, staff was not sure if she was actively participating to make that an accurate score. The impression we got was that she was irritated with all of this and was throwing us out of the room and did not want to cooperate with questions. During this admission, she has agreed to go to [facility] placement and [facility]. Plan: Social work is working on this placement. It is our wait for placement that keeps her here. (6) Coronary artery disease Impression: hx of ND Plan: continue therestarted b-briseida and baby aspirin daily, restarted her statin therapy Qualifiers: Coronary Disease-Associated Artery/Lesion type: [place] artery [place] vs. transplanted heart: [place] heart Associated angina: without angina Qualified Code(s): I25.10 - Atherosclerotic heart disease of [place] coronary artery without angina pectoris (7) Chronic HFrEF (heart failure with reduced ejection fraction) Impression: EF 35-40% by ECHO in 12/2021 Plan: b-briseida restarted, ARB restarted, restart spironolactone, no volume overload. (8) Altered mental status Impression: Resolved Has had several hospitalizations in past month, etiology felt to be post-ictal, dehydration, infectious Qualifiers: Altered mental status type: disorientation Qualified Code(s): R41.0 - Disorientation, unspecified (9) Rhabdomyolysis Impression: Resolved CK improved after IV fluids, taking good po intake now Qualifiers: Rhabdomyolysis type: non-traumatic Qualified Code(s): M62.82 - Rhabdomyolysis (10) Hypothyroidism Impression: high TSH 7.51 this admission. It is from not being on Synthroid for several days versus week Plan: Synthroid restarted at beginning of this adm, will check free T4, and TSH again in 4-6 weeks. Qualifiers: Hypothyroidism type: unspecified Qualified Code(s): E03.9 - Hypothyroidism, unspecified (11) HTN (hypertension) Impression: History of HTN, has been normotensive this admission Plan: monitor for HTN SBP>140 Qualifiers: Hypertension type: primary hypertension Qualified Code(s): I10 - Essential (primary) hypertension (12) Hx Multiple sclerosis As per Hx (13) Hyperlipidemia Impression: Plan: check HDL, LDL, triglycerides and ordered for the morning Qualifiers: Hyperlipidemia type: unspecified Qualified Code(s): E78.5 - Hyperlipidemia, unspecified (14) Hypernatremia Impression: Resolved (15) Hypokalemia Resolved - Current Meds Current Meds: Current Medications Generic Name Dose Route Start Last Admin Trade Name Freq PRN Reason Stop Dose Admin Acetaminophen 650 mg 05/14/22 15:41 06/03/22 05:12 Acetaminophen 325 Mg Tablet PO 650 mg Q4HR PRN Administration Pain 1 to 4, or Fever Aspirin 81 mg 05/16/22 09:00 06/03/22 09:53 Aspirin Ec 81 Mg Tablet PO 81 mg DAILY JIN Administration Atorvastatin Calcium 40 mg 05/29/22 21:00 06/02/22 20:42 Atorvastatin 40 Mg Tablet PO 40 mg QPM JIN Administration Baclofen 30 mg 05/15/22 21:00 06/03/22 09:53 Baclofen 10 Mg Tablet PO 30 mg BID JIN Administration Carboxymethylcellulose 1 drops 05/21/22 17:59 05/21/22 19:07 Carboxymethylcellulose Ophth Drops EACHEYE 1 drops PRN PRN Administration Dry Eye Carvedilol 3.125 mg 05/15/22 09:00 06/03/22 09:53 Carvedilol 3.125 Mg Tablet PO 3.125 mg BID JIN Administration Cholecalciferol 50 mcg 05/21/22 12:00 06/03/22 09:54 Cholecalciferol 25 Mcg Tablet PO 50 mcg DAILY JIN Administration Diclofenac Sodium 75 mg 05/18/22 21:00 06/03/22 09:[address] 75 Mg Tablet PO 75 mg BID JIN Administration Docusate Sodium 250 - 500 mg 05/18/22 09:00 06/03/22 09:54 Docusate Sodium 250 Mg Capsule PO 500 mg DAILY IJN Administration Enoxaparin Sodium 40 mg 05/15/22 09:00 06/03/22 09:52 Enoxaparin 40 Mg/0.4 Ml Syringe SUBQ 40 mg DAILY JIN Administration Fluticasone Propionate 1 sprays 05/15/22 08:38 05/19/22 13:09 Fluticasone Nasal Superior WILLIE 1 sprays BID PRN Administration Nasal Congestion Levetiracetam 500 mg 05/15/22 21:00 06/03/22 09:53 Levetiracetam 250 Mg Tablet PO 500 mg BID JIN Administration Levothyroxine Sodium 50 mcg 05/16/22 07:00 06/03/22 06:31 Levothyroxine 25 Mcg Tablet PO 50 mcg QDAC JIN Administration Losartan Potassium 12.5 mg 05/15/22 09:00 06/03/22 09:53 Losartan 50 Mg Tablet PO 12.5 mg DAILY JIN Administration Multi-Ingredient Ointment 1 applic 05/29/22 16:07 06/01/22 06:32 Zinc Oxide 20% Oint 30 Gm Tube TOP 1 applic PRN PRN Administration Skin Care Nystatin 1 applic 05/15/22 21:00 06/03/22 09:54 Nystatin Powder 15 Gm TOP 1 applic BID JIN Administration Oxycodone HCl 5 mg 05/14/22 15:41 06/03/22 09:53 Oxycodone 5 Mg Tablet PO 5 mg Q4HR PRN Administration Pain 5 to 7 Polyethylene Glycol 17 gm 05/17/22 12:00 06/03/22 09:52 Polyethylene Glycol 3350 17 Gm Packet PO 17 gm DAILY JIN Administration Senna 8.6 - 17.2 mg 05/18/22 09:00 06/03/22 09:52 Senna 8.6 Mg Tablet PO 17.2 mg DAILY JIN Administration - Lab Result Fish Bone Diagrams: 05/24/22 09:01 06/02/22 05:52 - Additional Planning My Orders: My Active Orders 06/04/22 05:00 BMP - BASIC METABOLIC PANEL [CHEM] DAILYLAB CBC - COMP BLD CT W/AUTO DIFF [HEME] DAILYLAB 06/05/22 05:00 BMP - BASIC METABOLIC PANEL [CHEM] DAILYLAB 06/06/22 05:00 BMP - BASIC METABOLIC PANEL [CHEM] DAILYLAB Subjective - Subjective Patient Reports: No Complaints Objective Vital Signs: Vital Signs - 24 hr 06/02/22 06/03/22 16:56 09:01 Temperature 36.5 C 36.3 C L Heart Rate [ 80 68 Brachial] Respiratory 18 18 Rate Blood Pressure 121/65 121/65 [Right Brachial artery] O2 Saturation 94 94 Oxygen O2 Source [With Activity] Room air O2 Source [Without Activity] Room air O2 Source Room air I&O (Last 24 Hrs): Intake and Output Totals x24h 06/01/22 06/02/22 06/03/22 23:59 23:59 23:59 Intake Total 2983.333 2551.663 320 Output Total 1450 1900 400 Balance 1533.333 651.663 -80 General: Alert, No acute distress HEENT: Mucous membr. moist/pink Neuro: Alert, Other (episodes of Echolalia were heard. She also yells her answers, when in conversation.) Cardiovascular: Other (HR stable) Respiratory: No respiratory distress Abdomen: No tenderness Extremities: Other (R knee tender) - Results Results: Laboratory Results WBC 8.9 x10^3/uL (4.8-10.8) 05/24/22 09:01 RBC 4.32 10^6/uL (4.20-5.40) 05/24/22 09:01 Hgb 12.1 g/dL (12.0-16.0) 05/24/22 09:01 Hct 39.7 % (37.0-47.0) 05/24/22 09:01 MCV 91.9 fL (81.0-99.0) 05/24/22 09:01 MCH 28.0 pg (27.0-31.0) 05/24/22 09:01 MCHC 30.5 g/dL (32.0-36.0) L 05/24/22 09:01 RDW 15.9 % (12.0-15.0) H 05/24/22 09:01 Plt Count 255 10^3/uL (130-450) 05/24/22 09:01 MPV 11.2 fL (7.9-10.8) H 05/24/22 09:01 Neut # (Auto) 5.9 10^3/uL (1.5-6.6) 05/24/22 09:01 Lymph # (Auto) 2.3 10^3/uL (1.5-3.5) 05/24/22 09:01 [place] # (Auto) 0.6 10^3/uL (0.0-1.0) 05/24/22 09:01 Eos # (Auto) 0.0 10^3/uL (0.0-0.7) 05/24/22 09:01 Baso # (Auto) 0.1 10^3/uL (0.0-0.1) 05/24/22 09:01 Absolute Nucleated RBC 0.00 x10^3/uL 05/24/22 09:01 Nucleated RBC % 0.0 /100WBC 05/24/22 09:01 Sodium 138 mmol/L (135-145) 06/02/22 05:52 Potassium 5.0 mmol/L (3.5-5.0) 06/02/22 05:52 Chloride 108 mmol/L (101-111) 06/02/22 05:52 Carbon Dioxide 24 mmol/L (21-32) 06/02/22 05:52 Anion Gap 6.0 (6-13) 06/02/22 05:52 BUN 26 mg/dL (6-20) H 06/02/22 05:52 Creatinine 1.1 mg/dL (0.4-1.0) H 06/02/22 05:52 Estimated GFR (MDRD) 50 (>89) L 06/02/22 05:52 Glucose 84 mg/dL (70-100) 06/02/22 05:52 Lactic Acid 1.6 mmol/L (0.5-2.2) 05/14/22 11:58 Calcium 9.2 mg/dL (8.5-10.3) 06/02/22 05:52 Total Bilirubin 0.9 mg/dL (0.2-1.0) 05/14/22 11:58 AST 73 IU/L (10-42) H 05/14/22 11:58 ALT 28 IU/L (10-60) 05/14/22 11:58 Alkaline Phosphatase 120 IU/L (42-121) 05/14/22 11:58 Ammonia 12.4 umol/L (7-35) 05/14/22 11:58 Total Creatine Kinase 742 IU/L (22-269) H 05/18/22 04:47 C-Reactive Protein 11.3 mg/dL (0-1.0) H 05/15/22 04:15 B-Natriuretic Peptide 468 pg/mL (5-100) H 05/14/22 11:58 Total Protein 8.3 g/dL (6.7-8.2) H 05/14/22 11:58 Albumin 4.0 g/dL (3.2-5.5) 05/14/22 11:58 Globulin 4.3 g/dL (2.1-4.2) H 05/14/22 11:58 Albumin/Globulin Ratio 0.9 (1.0-2.2) L 05/14/22 11:58 Triglycerides 201 mg/dL (-149) H 05/29/22 04:40 Cholesterol 251 mg/dL (-199) H 05/29/22 04:40 LDL Cholesterol, Calc 177 mg/dL (-129) H 05/29/22 04:40 VLDL Cholesterol 40 mg/dL 05/29/22 04:40 HDL Cholesterol 34 mg/dL (60-) L 05/29/22 04:40 LDL/HDL Ratio 5.2 (<4.4) 05/29/22 04:40 Cholesterol/HDL Ratio 7.4 (<4.4) 05/29/22 04:40 Lipase 31 U/L (22-51) 05/14/22 11:58 TSH 4.51 uIU/mL (0.34-5.60) 05/30/22 10:09 Cortisol AM Sample 6.3 ug/dL 05/29/22 04:40 Urine Color YELLOW 05/14/22 12:40 Urine Clarity HAZY (CLEAR) 05/14/22 12:40 Urine pH 6.0 PH (5.0-7.5) 05/14/22 12:40 Ur Specific [place] 1.025 (1.002-1.030) 05/14/22 12:40 Urine Protein 30 mg/dL (NEGATIVE) H 05/14/22 12:40 Urine Glucose (UA) NEGATIVE mg/dL (NEGATIVE) 05/14/22 12:40 Urine Ketones TRACE mg/dL (NEGATIVE) 05/14/22 12:40 Urine Occult Blood LARGE (NEGATIVE) H 05/14/22 12:40 Urine Nitrite NEGATIVE (NEGATIVE) 05/14/22 12:40 Urine Bilirubin NEGATIVE (NEGATIVE) 05/14/22 12:40 Urine Urobilinogen 0.2 (NORMAL) E.U./dL (NORMAL) 05/14/22 12:40 Ur Leukocyte Esterase NEGATIVE (NEGATIVE) 05/14/22 12:40 Urine RBC 6-10 /HPF (0-5) H 05/14/22 12:40 Urine WBC 0-3 /HPF (0-5) 05/14/22 12:40 Ur Squamous Epith Cells MOD Squamous (<= Few) H 05/14/22 12:40 Urine Bacteria Few /HPF (None Seen) 05/14/22 12:40 Urine Casts 0-2 Fine Granular /LPF0-2 Hyaline Casts /LPF 05/14/22 12:40 Urine Casts 0-2 Fine Granular /LPF0-2 Hyaline Casts /LPF 05/14/22 12:40 Ur Microscopic Review INDICATED 05/14/22 12:40 Urine Culture Comments NOT INDICATED 05/14/22 12:40 Urine Opiates Screen NEGATIVE (NEGATIVE) 05/14/22 12:40 Ur Oxycodone Screen POSITIVE (NEGATIVE) H 05/14/22 12:40 Urine Methadone Screen NEGATIVE (NEGATIVE) 05/14/22 12:40 Ur Propoxyphene Screen NEGATIVE (NEGATIVE) 05/14/22 12:40 Ur Barbiturates Screen NEGATIVE (NEGATIVE) 05/14/22 12:40 Ur Tricyclics Screen NEGATIVE (NEGATIVE) 05/14/22 12:40 Ur Phencyclidine Scrn NEGATIVE (NEGATIVE) 05/14/22 12:40 Ur Amphetamine Screen NEGATIVE (NEGATIVE) 05/14/22 12:40 U Methamphetamines Scrn NEGATIVE (NEGATIVE) 05/14/22 12:40 U Benzodiazepines Scrn NEGATIVE (NEGATIVE) 05/14/22 12:40 Urine Cocaine Screen NEGATIVE (NEGATIVE) 05/14/22 12:40 U Cannabinoids Screen NEGATIVE (NEGATIVE) 05/14/22 12:40 Ethyl Alcohol < 5.0 mg/dL 05/14/22 11:58 MAC Interpretation Comment (.) 05/15/22 09:04 Anti-sm/SHOP FITTER Abs <0.2 AI (0.0-0.9) 05/15/22 09:04 RAFAELA-1 Antibody <0.2 AI (0.0-0.9) 05/15/22 09:04 SS-A/Ro Antibody <0.2 AI (0.0-0.9) 05/15/22 09:04 SS-B/La Antibody 0.4 AI (0.0-0.9) 05/15/22 09:04 Sm (Triana) Antibody <0.2 AI (0.0-0.9) 05/15/22 09:04 SHOP FITTER Antibody 0.5 AI (0.0-0.9) 05/15/22 09:04 Scl-70 Scleroderma Ab <0.2 AI (0.0-0.9) 05/15/22 09:04 Double Strand DNA Ab <1 IU/mL (0-9) 05/15/22 09:04 Ribosomal P Prot Ab <0.2 AI (0.0-0.9) 05/15/22 09:04 Chromatin Antibody <0.2 AI (0.0-0.9) 05/15/22 09:04 Centromere B Antibody <0.2 AI (0.0-0.9) 05/15/22 09:04 SARS-CoV-2 (PCR) NOT DETECTED 05/14/22 13:40 - Procedures Procedures: Procedures INSERTION OF INFUSION DEV INTO SUP VENA CAVA, PERC APPROACH (12/10/21)
[2022-06-03] MEDS: ATORVASTATIN 40 MG TABLET PO SCH (20:16)
[2022-06-04] MEDS: oxyCODONE 5 MG TABLET PO PRN ×3 (00:50→20:23)
[2022-06-04] MEDS: ACETAMINOPHEN 325 MG TABLET PO PRN ×3 (04:22→21:59)
[2022-06-04] MEDS: LEVOTHYROXINE 25 MCG TABLET PO SCH (06:37)
[2022-06-04 07:23] LABS: BASOPHILS # (AUTO) 0.1 10^3/uL (0.0-0.1); BASOPHILS % (AUTO) 1.5 %; EOSINOPHILS % (AUTO) 0.2 %; HCT - HEMATOCRIT 34.7 % (37.0-47.0); HGB - HEMOGLOBIN 10.7 g/dL (12.0-16.0); LYMPHOCYTES # (AUTO) 2.7 10^3/uL (1.5-3.5); LYMPHOCYTES % (AUTO) 31.9 %; MEAN CORPUSCULAR HEMOGLOBIN 28.2 pg (27.0-31.0); MEAN CORPUSCULAR HGB CONC 30.8 g/dL (32.0-36.0); MEAN CORPUSCULAR VOLUME 91.6 fL (81.0-99.0); MEAN PLATELET VOLUME 10.4 fL (7.9-10.8); MONOCYTES # (AUTO) 0.9 10^3/uL (0.0-1.0); NEUTROPHILS # (AUTO) 4.6 10^3/uL (1.5-6.6); PLT - PLATELET COUNT 380 10^3/uL (130-450); RED BLOOD COUNT 3.79 10^6/uL (4.20-5.40); RED CELL DISTRIBUTION WIDTH 15.9 % (12.0-15.0); WHITE BLOOD COUNT 8.4 x10^3/uL (4.8-10.8)
[2022-06-04 07:31] LABS: CALCIUM 9.1 mg/dL (8.5-10.3); CREATININE 1.3 mg/dL (0.4-1.0)
--- NOTE | 2022-06-04 07:59 | PROVIDER PROGRESS NOTE ---
Assessment/Plan - Problem List (1) Acute kidney injury superimposed on CKD Assessment/Plan: I reviewed all her labs. We are still checking her BMP daily ever since her BUN/creatinine increased many days ago. An iv was (re)started and she received 2L of NS daily for the 3 days, then got no iv fluids yesterday 06/03, and today her BUN/creat has again risen. She is on no diuretics Plan: Will order NS at 83.33 cc/hr and give 3L Cont to encourage po fluid intake and strict I's and O's were ordered to monitor Avoid diuretics Avoid nephrotoxins Follow BMP daily (2) Metaphyseal fracture of bone of right lower extremity Assessment/Plan: From the Ortho note of 06/01: Orthopedics is following the patient for non-operative management of non displaced supracondylar fracture. Patient was seen by myself and Dr. Garcia. She has been tolerating the splint well and is participating in physical and occupational therapy with toe touch weight bearing status. There continues to be no displacement with most recent x-ray and she is tolerating the splint without concern. Plan: - Continue nonoperative management for minimally displaced supracondylar fracture right distal femur, date of injury 05/14/2022 - Splint to remain dry and intact, orthopedics will redress the splint as needed - Hinged knee brace should not be used while the splint is in place, ideally the patient will transition to the hinged knee brace but did not tolerate it previously - The goal is to transition to a hinged knee brace at 4 weeks from date of injury. - Continue physical therapy and Occupational Therapy with toe-touch weightbearing to right lower extremity - Pain management and deep venous thrombosis prophylaxis per hospitalist physician -Disposition pending social work assessment and placement - Monitor for sharp increases in pain despite pain regimen, swelling or other concerning features of compartment syndrome Chronic or resolved problems: (3) Frequent falls at home Impression: Per pt's story she slipped and fell on some milk this time. Has a history of frequent falls, prior back pain, ankle pain. History of back and ankle surgery. Xrays obtained in ED were negative for fractures. PT noticed that she was only toe touching on the right leg, could not bear weight because her right knee hurt. She does not have aortic stenosis, orthostatic hypotension, arrhythmia, anemia that would cause these frequent falls. Plan: PT/OT working w her. She is ordered to have weight bearing as tolerated. (4) History of seizures Impression: Per EMR was on keppra several admissions ago. Has presented to ED with delirium, etiology uncertain, UTI, dehydration, post-ictal. Plan: continue keppra (5) Cognitive impairment Impression: Last recent hospitalization 1 week ago had a SLUMS test done by OT. Score 11/30, indicating severly cognitively impaired, staff was not sure if she was actively participating to make that an accurate score. The impression we got was that she was irritated with all of this and was throwing us out of the room and did not want to cooperate with questions. 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 Plan: Social work is working on this placement. It is our wait for placement that keeps her here. (6) Coronary artery disease Impression: hx of [place] Plan: continue therestarted b-briseida and baby aspirin daily, restarted her statin therapy Qualifiers: Coronary Disease-Associated Artery/Lesion type: [place] artery [place] vs. transplanted heart: [place] heart Associated angina: without angina Qualified Code(s): I25.10 - Atherosclerotic heart disease of [place] coronary artery wit hout angina pectoris (7) Chronic HFrEF (heart failure with reduced ejection fraction) Impression: EF 35-40% by ECHO in 12/2021 Plan: b-briseida restarted, ARB restarted, restart spironolactone, no volume overload. (8) Altered mental status Impression: Resolved Has had several hospitalizations in past month, etiology felt to be post-ictal, dehydration, infectious Qualifiers: Altered mental status type: disorientation Qualified Code(s): R41.0 - Disorientation, unspecified (9) Rhabdomyolysis Impression: Resolved CK improved after IV fluids, taking good po intake now Qualifiers: Rhabdomyolysis type: non-traumatic Qualified Code(s): M62.82 - Rhabdomyolysis (10) Hypothyroidism Impression: high TSH 7.51 this admission. It is from not being on Synthroid for several days versus week Plan: Synthroid restarted at beginning of this adm, will check free T4, and TSH again in 4-6 weeks. Qualifiers: Hypothyroidism type: unspecified Qualified Code(s): E03.9 - Hypothyroidism, unspecified (11) HTN (hypertension) Impression: History of HTN, has been normotensive this admission Plan: monitor for HTN SBP>140 Qualifiers: Hypertension type: primary hypertension Qualified Code(s): I10 - Essential (primary) hypertension (12) Hx Multiple sclerosis As per Hx (13) Hyperlipidemia Impression: Plan: check HDL, LDL, triglycerides and ordered for the morning Qualifiers: Hyperlipidemia type: unspecified Qualified Code(s): E78.5 - Hyperlipidemia, unspecified (14) Hypernatremia Impression: Resolved (15) Hypokalemia Resolved - Current Meds Current Meds: Current Medications Generic Name Dose Route Start Last Admin Trade Name Freq PRN Reason Stop Dose Admin Acetaminophen 650 mg 05/14/22 15:41 06/04/22 04:22 Acetaminophen 325 Mg Tablet PO 650 mg Q4HR PRN Administration Pain 1 to 4, or Fever Aspirin 81 mg 05/16/22 09:00 06/03/22 09:53 Aspirin Ec 81 Mg Tablet PO 81 mg DAILY JIN Administration Atorvastatin Calcium 40 mg 05/29/22 21:00 06/03/22 20:16 Atorvastatin 40 Mg Tablet PO 40 mg QPM JIN Administration Baclofen 30 mg 05/15/22 21:00 06/03/22 20:16 Baclofen 10 Mg Tablet PO 30 mg BID JIN Administration Carboxymethylcellulose 1 drops 05/21/22 17:59 05/21/22 19:07 Carboxymethylcellulose Ophth Drops EACHEYE 1 drops PRN PRN Administration Dry Eye Carvedilol 3.125 mg 05/15/22 09:00 06/03/22 20:16 Carvedilol 3.125 Mg Tablet PO 3.125 mg BID JIN Administration Cholecalciferol 50 mcg 05/21/22 12:00 06/03/22 09:54 Cholecalciferol 25 Mcg Tablet PO 50 mcg DAILY JIN Administration Diclofenac Sodium 75 mg 05/18/22 21:00 06/03/22 20:[address] 75 Mg Tablet PO 75 mg BID JIN Administration Docusate Sodium 250 - 500 mg 05/18/22 09:00 06/03/22 09:54 Docusate Sodium 250 Mg Capsule PO 500 mg DAILY JIN Administration Enoxaparin Sodium 40 mg 05/15/22 09:00 06/03/22 09:52 Enoxaparin 40 Mg/0.4 Ml Syringe SUBQ 40 mg DAILY JIN Administration Fluticasone Propionate 1 sprays 05/15/22 08:38 05/19/22 13:09 Fluticasone Nasal [place] WILLIE 1 sprays BID PRN Administration Nasal Congestion Levetiracetam 500 mg 05/15/22 21:00 06/03/22 20:16 Levetiracetam 250 Mg Tablet PO 500 mg BID JIN Administration Levothyroxine Sodium 50 mcg 05/16/22 07:00 06/04/22 06:37 Levothyroxine 25 Mcg Tablet PO 50 mcg QDAC JIN Administration Losartan Potassium 12.5 mg 05/15/22 09:00 06/03/22 09:53 Losartan 50 Mg Tablet PO 12.5 mg DAILY JIN Administration Multi-Ingredient Ointment 1 applic 05/29/22 16:07 06/01/22 06:32 Zinc Oxide 20% Oint 30 Gm Tube TOP 1 applic PRN PRN Administration Skin Care Nystatin 1 applic 05/15/22 21:00 06/03/22 20:19 Nystatin Powder 15 Gm TOP 1 applic BID JIN Administration Oxycodone HCl 5 mg 05/14/22 15:41 06/04/22 00:50 Oxycodone 5 Mg Tablet PO 5 mg Q4HR PRN Administration Pain 5 to 7 Polyethylene Glycol 17 gm 05/17/22 12:00 06/03/22 09:52 Polyethylene Glycol 3350 17 Gm Packet PO 17 gm DAILY JIN Administration Senna 8.6 - 17.2 mg 05/18/22 09:00 06/03/22 09:52 Senna 8.6 Mg Tablet PO 17.2 mg DAILY JIN Administration - Lab Result Fish Bone Diagrams: 06/04/22 07:17 06/04/22 07:17 - Additional Planning My Orders: My Active Orders 06/04/22 08:00 NS 0.9% @ 83.333 mls/hr Sodium Chloride 0.9% [Normal Saline 0.9%] 1,000 ml IV 83.333 mls/hr 06/05/22 05:00 BMP - BASIC METABOLIC PANEL [CHEM] DAILYLAB 06/06/22 05:00 BMP - BASIC METABOLIC PANEL [CHEM] DAILYLAB Subjective - Subjective Patient Reports: Resting Comfortably Objective Vital Signs: Vital Signs - 24 hr 06/03/22 06/03/22 06/03/22 09:01 15:44 23:43 Temperature 36.3 C L 36.4 C L 36.6 C Heart Rate [ 68 73 69 Brachial] Respiratory 18 18 20 Rate Blood Pressure 121/65 132/74 H 120/69 [Right Brachial artery] O2 Saturation 94 96 94 Oxygen O2 Source [With Activity] Room air O2 Source [Without Activity] Room air O2 Source Room air I&O (Last 24 Hrs): Intake and Output Totals x24h 06/02/22 06/03/22 06/04/22 23:59 23:59 23:59 Intake Total 2551.663 1520 Output Total 1900 2300 100 Balance 651.663 -780 -100 General: Alert, No acute distress HEENT: Mucous membr. moist/pink Neck: Supple Neuro: Alert, Non Focal, Other (Occaisional echolalia) Cardiovascular: No murmurs Respiratory: No respiratory distress Abdomen: Soft Extremities: No clubbing, No edema, Other (R knee in bandages) - Results Results: Laboratory Results WBC 8.4 x10^3/uL (4.8-10.8) 06/04/22 07:17 RBC 3.79 10^6/uL (4.20-5.40) L 06/04/22 07:17 Hgb 10.7 g/dL (12.0-16.0) L 06/04/22 07:17 Hct 34.7 % (37.0-47.0) L 06/04/22 07:17 MCV 91.6 fL (81.0-99.0) 06/04/22 07:17 MCH 28.2 pg (27.0-31.0) 06/04/22 07:17 MCHC 30.8 g/dL (32.0-36.0) L 06/04/22 07:17 RDW 15.9 % (12.0-15.0) H 06/04/22 07:17 Plt Count 380 10^3/uL (130-450) 06/04/22 07:17 MPV 10.4 fL (7.9-10.8) 06/04/22 07:17 Neut # (Auto) 4.6 10^3/uL (1.5-6.6) 06/04/22 07:17 Lymph # (Auto) 2.7 10^3/uL (1.5-3.5) 06/04/22 07:17 [place] # (Auto) 0.9 10^3/uL (0.0-1.0) 06/04/22 07:17 Eos # (Auto) 0.0 10^3/uL (0.0-0.7) 06/04/22 07:17 Baso # (Auto) 0.1 10^3/uL (0.0-0.1) 06/04/22 07:17 Absolute Nucleated RBC 0.00 x10^3/uL 06/04/22 07:17 Nucleated RBC % 0.0 /100WBC 06/04/22 07:17 Sodium 137 mmol/L (135-145) 06/04/22 07:17 Potassium 5.0 mmol/L (3.5-5.0) 06/04/22 07:17 Chloride 105 mmol/L (101-111) 06/04/22 07:17 Carbon Dioxide 23 mmol/L (21-32) 06/04/22 07:17 Anion Gap 9.0 (6-13) 06/04/22 07:17 BUN 23 mg/dL (6-20) H 06/04/22 07:17 Creatinine 1.3 mg/dL (0.4-1.0) H 06/04/22 07:17 Estimated GFR (MDRD) 41 (>89) L 06/04/22 07:17 Glucose 85 mg/dL (70-100) 06/04/22 07:17 Lactic Acid 1.6 mmol/L (0.5-2.2) 05/14/22 11:58 Calcium 9.1 mg/dL (8.5-10.3) 06/04/22 07:17 Total Bilirubin 0.9 mg/dL (0.2-1.0) 05/14/22 11:58 AST 73 IU/L (10-42) H 05/14/22 11:58 ALT 28 IU/L (10-60) 05/14/22 11:58 Alkaline Phosphatase 120 IU/L (42-121) 05/14/22 11:58 Ammonia 12.4 umol/L (7-35) 05/14/22 11:58 Total Creatine Kinase 742 IU/L (22-269) H 05/18/22 04:47 C-Reactive Protein 11.3 mg/dL (0-1.0) H 05/15/22 04:15 B-Natriuretic Peptide 468 pg/mL (5-100) H 05/14/22 11:58 Total Protein 8.3 g/dL (6.7-8.2) H 05/14/22 11:58 Albumin 4.0 g/dL (3.2-5.5) 05/14/22 11:58 Globulin 4.3 g/dL (2.1-4.2) H 05/14/22 11:58 Albumin/Globulin Ratio 0.9 (1.0-2.2) L 05/14/22 11:58 Triglycerides 201 mg/dL (-149) H 05/29/22 04:40 Cholesterol 251 mg/dL (-199) H 05/29/22 04:40 LDL Cholesterol, Calc 177 mg/dL (-129) H 05/29/22 04:40 VLDL Cholesterol 40 mg/dL 05/29/22 04:40 HDL Cholesterol 34 mg/dL (60-) L 05/29/22 04:40 LDL/HDL Ratio 5.2 (<4.4) 05/29/22 04:40 Cholesterol/HDL Ratio 7.4 (<4.4) 05/29/22 04:40 Lipase 31 U/L (22-51) 05/14/22 11:58 TSH 4.51 uIU/mL (0.34-5.60) 05/30/22 10:09 Cortisol AM Sample 6.3 ug/dL 05/29/22 04:40 Urine Color YELLOW 05/14/22 12:40 Urine Clarity HAZY (CLEAR) 05/14/22 12:40 Urine pH 6.0 PH (5.0-7.5) 05/14/22 12:40 Ur Specific [place] 1.025 (1.002-1.030) 05/14/22 12:40 Urine Protein 30 mg/dL (NEGATIVE) H 05/14/22 12:40 Urine Glucose (UA) NEGATIVE mg/dL (NEGATIVE) 05/14/22 12:40 Urine Ketones TRACE mg/dL (NEGATIVE) 05/14/22 12:40 Urine Occult Blood LARGE (NEGATIVE) H 05/14/22 12:40 Urine Nitrite NEGATIVE (NEGATIVE) 05/14/22 12:40 Urine Bilirubin NEGATIVE (NEGATIVE) 05/14/22 12:40 Urine Urobilinogen 0.2 (NORMAL) E.U./dL (NORMAL) 05/14/22 12:40 Ur Leukocyte Esterase NEGATIVE (NEGATIVE) 05/14/22 12:40 Urine RBC 6-10 /HPF (0-5) H 05/14/22 12:40 Urine WBC 0-3 /HPF (0-5) 05/14/22 12:40 Ur Squamous Epith Cells MOD Squamous (<= Few) H 05/14/22 12:40 Urine Bacteria Few /HPF (None Seen) 05/14/22 12:40 Urine Casts 0-2 Fine Granular /LPF0-2 Hyaline Casts /LPF 05/14/22 12:40 Urine Casts 0-2 Fine Granular /LPF0-2 Hyaline Casts /LPF 05/14/22 12:40 Ur Microscopic Review INDICATED 05/14/22 12:40 Urine Culture Comments NOT INDICATED 05/14/22 12:40 Urine Opiates Screen NEGATIVE (NEGATIVE) 05/14/22 12:40 Ur Oxycodone Screen POSITIVE (NEGATIVE) H 05/14/22 12:40 Urine Methadone Screen NEGATIVE (NEGATIVE) 05/14/22 12:40 Ur Propoxyphene Screen NEGATIVE (NEGATIVE) 05/14/22 12:40 Ur Barbiturates Screen NEGATIVE (NEGATIVE) 05/14/22 12:40 Ur Tricyclics Screen NEGATIVE (NEGATIVE) 05/14/22 12:40 Ur Phencyclidine Scrn NEGATIVE (NEGATIVE) 05/14/22 12:40 Ur Amphetamine Screen NEGATIVE (NEGATIVE) 05/14/22 12:40 U Methamphetamines Scrn NEGATIVE (NEGATIVE) 05/14/22 12:40 U Benzodiazepines Scrn NEGATIVE (NEGATIVE) 05/14/22 12:40 Urine Cocaine Screen NEGATIVE (NEGATIVE) 05/14/22 12:40 U Cannabinoids Screen NEGATIVE (NEGATIVE) 05/14/22 12:40 Ethyl Alcohol < 5.0 mg/dL 05/14/22 11:58 MAC Interpretation Comment (.) 05/15/22 09:04 Anti-sm/REGULATORY ANALYST Abs <0.2 AI (0.0-0.9) 05/15/22 09:04 RAFAELA-1 Antibody <0.2 AI (0.0-0.9) 05/15/22 09:04 SS-A/Ro Antibody <0.2 AI (0.0-0.9) 05/15/22 09:04 SS-B/La Antibody 0.4 AI (0.0-0.9) 05/15/22 09:04 Sm (Triana) Antibody <0.2 AI (0.0-0.9) 05/15/22 09:04 REGULATORY ANALYST Antibody 0.5 AI (0.0-0.9) 05/15/22 09:04 Scl-70 Scleroderma Ab <0.2 AI (0.0-0.9) 05/15/22 09:04 Double Strand DNA Ab <1 IU/mL (0-9) 05/15/22 09:04 Ribosomal P Prot Ab <0.2 AI (0.0-0.9) 05/15/22 09:04 Chromatin Antibody <0.2 AI (0.0-0.9) 05/15/22 09:04 Centromere B Antibody <0.2 AI (0.0-0.9) 05/15/22 09:04 SARS-CoV-2 (PCR) NOT DETECTED 05/14/22 13:40 - Procedures Procedures: Procedures INSERTION OF INFUSION DEV INTO SUP VENA CAVA, PERC APPROACH (12/10/21)
[2022-06-04] MEDS: polyethylene glycoL 3350 17 GM PACKET PO SCH (09:13)
[2022-06-04] MEDS: BACLOFEN 10 MG TABLET PO SCH ×2 (09:13→20:28)
[2022-06-04] MEDS: carvediloL 3.125 MG TABLET PO SCH ×2 (09:14→20:24)
[2022-06-04] MEDS: DOCUSATE SODIUM 250 MG CAPSULE PO SCH (09:14)
[2022-06-04] MEDS: SENNA 8.6 MG TABLET PO SCH (09:15)
[2022-06-04] MEDS: LOSARTAN 50 MG TABLET PO SCH (09:15)
[2022-06-04] MEDS: levETIRAcetam 250 MG TABLET PO SCH ×2 (09:15→20:23)
[2022-06-04] MEDS: DICLOFENAC SODIUM DR 75 MG TABLET PO SCH ×2 (09:15→20:24)
[2022-06-04] MEDS: ASPIRIN EC 81 MG TABLET PO SCH (09:15)
[2022-06-04] MEDS: CHOLECALCIFEROL 25 MCG TABLET PO SCH (09:15)
[2022-06-04] MEDS: NYSTATIN POWDER 15 GM TOP SCH ×2 (09:16→20:29)
[2022-06-04] MEDS: ENOXAPARIN 40 MG/0.4 ML SYRINGE SUBQ SCH (09:16)
[2022-06-04] MEDS: SODIUM CHLORIDE 0.9% 1,000 ML IV SCH ×2 (09:47→20:28)
[2022-06-04] MEDS: ATORVASTATIN 40 MG TABLET PO SCH (20:23)
[2022-06-05] MEDS: FLUTICASONE NASAL SPRAY NAS PRN (02:01)
[2022-06-05 05:44] LABS: CALCIUM 9.1 mg/dL (8.5-10.3); CREATININE 0.9 mg/dL (0.4-1.0); POTASSIUM 4.8 mmol/L (3.5-5.0)
[2022-06-05] MEDS: oxyCODONE 5 MG TABLET PO PRN ×4 (06:39→23:55)
[2022-06-05] MEDS: ACETAMINOPHEN 325 MG TABLET PO PRN ×4 (06:40→23:55)
[2022-06-05] MEDS: LEVOTHYROXINE 25 MCG TABLET PO SCH (06:40)
[2022-06-05] MEDS: SODIUM CHLORIDE 0.9% 1,000 ML IV SCH (08:27)
[2022-06-05] MEDS: polyethylene glycoL 3350 17 GM PACKET PO SCH (08:58)
[2022-06-05] MEDS: ZINC OXIDE 20% OINT 30 GM TUBE TOP PRN ×2 (08:59→20:30)
[2022-06-05] MEDS: NYSTATIN POWDER 15 GM TOP SCH ×2 (08:59→20:29)
[2022-06-05] MEDS: ENOXAPARIN 40 MG/0.4 ML SYRINGE SUBQ SCH (08:59)
[2022-06-05] MEDS: DOCUSATE SODIUM 250 MG CAPSULE PO SCH (09:00)
[2022-06-05] MEDS: CHOLECALCIFEROL 25 MCG TABLET PO SCH (09:00)
[2022-06-05] MEDS: BACLOFEN 10 MG TABLET PO SCH ×2 (09:01→20:28)
[2022-06-05] MEDS: carvediloL 3.125 MG TABLET PO SCH ×2 (09:01→20:30)
[2022-06-05] MEDS: ASPIRIN EC 81 MG TABLET PO SCH (09:01)
[2022-06-05] MEDS: SENNA 8.6 MG TABLET PO SCH (09:01)
[2022-06-05] MEDS: LOSARTAN 50 MG TABLET PO SCH (09:02)
[2022-06-05] MEDS: DICLOFENAC SODIUM DR 75 MG TABLET PO SCH ×2 (09:02→20:29)
[2022-06-05] MEDS: levETIRAcetam 250 MG TABLET PO SCH ×2 (09:05→20:28)
--- NOTE | 2022-06-05 14:26 | PROVIDER PROGRESS NOTE ---
Progress Note June 05, 2022 2:20 PM No new events overnight. Ms. Lizarraga continues to intermittently work with physical therapy. Sometimes she wants to work with them. Sometimes she does not. She is able to scoot himself to the edge of the bed, and has a contact- guard assist to be able to stand. Min to mod assist to get back in bed. We have been really working on getting her hydrated. She has been asked to drink 500 cc per shift and nursing has been asked to check up on her. Active Medications Acetaminophen (Acetaminophen 325 Mg Tablet) 650 mg PO Q4HR PRN PRN Reason: Pain 1 to 4, or Fever Last Admin: 06/05/22 13:34 Dose: 650 mg Aspirin (Aspirin Ec 81 Mg Tablet) 81 mg PO DAILY [facility] Last Admin: 06/05/22 09:01 Dose: 81 mg Atorvastatin Calcium (Atorvastatin 40 Mg Tablet) 40 mg PO QPM [facility] Last Admin: 06/04/22 20:23 Dose: 40 mg Baclofen (Baclofen 10 Mg Tablet) 30 mg PO BID [facility] Last Admin: 06/05/22 09:01 Dose: 30 mg Carboxymethylcellulose (Carboxymethylcellulose Ophth Drops) 1 drops EACHEYE PRN PRN PRN Reason: Dry Eye Last Admin: 05/21/22 19:07 Dose: 1 drops Carvedilol (Carvedilol 3.125 Mg Tablet) 3.125 mg PO BID [facility] Last Admin: 06/05/22 09:01 Dose: 3.125 mg Cholecalciferol (Cholecalciferol 25 Mcg Tablet) 50 mcg PO DAILY [facility] Last Admin: 06/05/22 09:00 Dose: 50 mcg Diclofenac Sodium (Diclofenac Sodium Dr 75 Mg Tablet) 75 mg PO BID [facility] Last Admin: 06/05/22 09:02 Dose: 75 mg Docusate Sodium (Docusate Sodium 250 Mg Capsule) 250 - 500 mg PO DAILY [facility] Last Admin: 06/05/22 09:00 Dose: 250 mg Enoxaparin Sodium (Enoxaparin 40 Mg/0.4 Ml Syringe) 40 mg SUBQ DAILY [facility] Last Admin: 06/05/22 08:59 Dose: 40 mg Fluticasone Propionate (Fluticasone Nasal [place]) 1 sprays WILLIE BID PRN PRN Reason: Nasal Congestion Last Admin: 06/05/22 02:01 Dose: 1 sprays Sodium Chloride (Normal Saline 0.9%) 1,000 mls @ 83.333 mls/hr IV .Q12H [facility] Stop: 06/05/22 19:59 Last Admin: 06/05/22 08:27 Dose: 83.333 mls/hr Levetiracetam (Levetiracetam 250 Mg Tablet) 500 mg PO BID [facility] Last Admin: 06/05/22 09:05 Dose: 500 mg Levothyroxine Sodium (Levothyroxine 25 Mcg Tablet) 50 mcg PO QDAC [facility] Last Admin: 06/05/22 06:40 Dose: 50 mcg Losartan Potassium (Losartan 50 Mg Tablet) 12.5 mg PO DAILY [facility] Last Admin: 06/05/22 09:02 Dose: 12.5 mg Multi-Ingredient Ointment (Zinc Oxide 20% Oint 30 Gm Tube) 1 applic TOP PRN PRN PRN Reason: Skin Care Last Admin: 06/05/22 08:59 Dose: 1 applic Nystatin (Nystatin Powder 15 Gm) 1 applic TOP BID [facility] Last Admin: 06/05/22 08:59 Dose: 1 applic Ondansetron HCl (Ondansetron Odt 4 Mg Tablet) 4 mg TL Q6HR PRN PRN Reason: Nausea / Vomiting Ondansetron HCl (Ondansetron 4 Mg/2 Ml Vial) 4 mg IVP Q6HR PRN PRN Reason: Nausea / Vomiting Oxycodone HCl (Oxycodone 5 Mg Tablet) 5 mg PO Q4HR PRN PRN Reason: Pain 5 to 7 Last Admin: 06/05/22 11:53 Dose: 5 mg Polyethylene Glycol (Polyethylene Glycol 3350 17 Gm Packet) 17 gm PO DAILY [facility] Last Admin: 06/05/22 08:58 Dose: 17 gm Senna (Senna 8.6 Mg Tablet) 8.6 - 17.2 mg PO DAILY [facility] Last Admin: 06/05/22 09:01 Dose: 8.6 mg Exam: Temperature 36.4. Heart rate 71. Blood pressure 131/69. Respirations 18. 97% on room air 5 feet 2 inches tall, 70.5 kg Alert, oriented to place and person, a little vague on the date but she knows it is May and it is 2022 Polite, cooperative today Neck is supple Lungs are clear Regular rate and rhythm Abdomen soft and nontender Extremities without edema except for the knee that has much less edema than the last time I saw it which was a week ago. Still a little boggy. No redness, no heat. Laboratory Tests 05/24/22 06/04/22 06/05/22 09:01 07:17 05:18 WBC 8.4 Hgb 12.1 10.7 L Hct 34.7 L Plt Count 380 BUN 19 Creatinine 0.9 Assessment/Plan as we await placement - Problem List (1) Acute kidney injury superimposed on CKD Assessment/Plan: I reviewed all her labs. We are still checking her BMP daily ever since her BUN/creatinine increased many days ago. An iv was (re)started and she received 2L of NS daily for the 3 days, then got no iv fluids yesterday 06/03, and 06/04 her BUN/creat had again alyssa. A specific order was given for 500 cc/shift and her creat has reponded to that today w nml creatinine. She is on no diuretics Plan: NS at 83.33 cc/hr and give 3L from 06/04 into tomorrow Cont to encourage po fluid intake and strict I's and O's were ordered to monitor Avoid diuretics Avoid nephrotoxins Follow BMP daily (2) Metaphyseal fracture of bone of right lower extremity Assessment/Plan: From the Ortho note of 06/01: Orthopedics is following the patient for non-operative management of non displaced supracondylar fracture. Patient was seen by myself and Dr. Garcia. She has been tolerating the splint well and is participating in physical and occupational therapy with toe touch weight bearing status. There continues to be no displacement with most recent x-ray and she is tolerating the splint without concern. Plan: - Continue nonoperative management for minimally displaced supracondylar fracture right distal femur, date of injury 05/14/2022 - Splint to remain dry and intact, orthopedics will redress the splint as needed - Hinged knee brace should not be used while the splint is in place, ideally the patient will transition to the hinged knee brace but did not tolerate it previously - The goal is to transition to a hinged knee brace at 4 weeks from date of injury. - Continue physical therapy and Occupational Therapy with toe-touch weightbearing to right lower extremity - Pain management and deep venous thrombosis prophylaxis per hospitalist physician -Disposition pending social work assessment and placement - Monitor for sharp increases in pain despite pain regimen, swelling or other co ncerning features of compartment syndrome Chronic or resolved problems: (3) Frequent falls at home Impression: Per pt's story she slipped and fell on some milk this time. Has a history of frequent falls, prior back pain, ankle pain. History of back and ankle surgery. Xrays obtained in ED were negative for fractures. PT noticed that she was only toe touching on the right leg, could not bear weight because her right knee hurt. She does not have aortic stenosis, orthostatic hypotension, arrhythmia, anemia that would cause these frequent falls. Plan: PT/OT working w her. She is ordered to have weight bearing as tolerated. (4) History of seizures Impression: Per EMR was on keppra several admissions ago. Has presented to ED with delirium, etiology uncertain, UTI, dehydration, post-ictal. Plan: continue keppra (5) Cognitive impairment Impression: Last recent hospitalization 1 week ago had a SLUMS test done by OT. Score 11/30, indicating severly cognitively impaired, staff was not sure if she was actively participating to make that an accurate score. The impression we got was that she was irritated with all of this and was throwing us out of the room and did not want to cooperate with questions. 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 Plan: Social work is working on this placement. It is our wait for placement that keeps her here. (6) Coronary artery disease Impression: hx of [place] Plan: continue therestarted b-briseida and baby aspirin daily, restarted her statin therapy Qualifiers: Coronary Disease-Associated Artery/Lesion type: [place] artery [place] vs. transplanted heart: [place] heart Associated angina: without angina Qualified Code(s): I25.10 - Atherosclerotic heart disease of [place] coronary artery without angina pectoris (7) Chronic HFrEF (heart failure with reduced ejection fraction) Impression: EF 35-40% by ECHO in 12/2021 Plan: b-briseida restarted, ARB restarted, restart spironolactone, no volume overload. (8) Altered mental status Impression: Resolved Has had several hospitalizations in past month, etiology felt to be post-ictal, dehydration, infectious Qualifiers: Altered mental status type: disorientation Qualified Code(s): R41.0 - Disorientation, unspecified (9) Rhabdomyolysis Impression: Resolved CK improved after IV fluids, taking good po intake now Qualifiers: Rhabdomyolysis type: non-traumatic Qualified Code(s): M62.82 - Rhabdomyolysis (10) Hypothyroidism Impression: high TSH 7.51 this admission. It is from not being on Synthroid for several days versus week Plan: Synthroid restarted at beginning of this adm, will check free T4, and TSH again in 4-6 weeks. Qualifiers: Hypothyroidism type: unspecified Qualified Code(s): E03.9 - Hypothyroidism, unspecified (11) HTN (hypertension) Impression: History of HTN, has been normotensive this admission Plan: monitor for HTN SBP>140 Qualifiers: Hypertension type: primary hypertension Qualified Code(s): I10 - Essential (primary) hypertension (12) Hx Multiple sclerosis As per Hx (13) Hyperlipidemia Impression: Plan: check HDL, LDL, triglycerides and ordered for the morning Qualifiers: Hyperlipidemia type: unspecified Qualified Code(s): E78.5 - Hyperlipidemia, unspecified (14) Hypernatremia Impression: Resolved (15) Hypokalemia Resolved
[2022-06-05] MEDS: ATORVASTATIN 40 MG TABLET PO SCH (20:28)
[2022-06-06] MEDS: LEVOTHYROXINE 25 MCG TABLET PO SCH (05:54)
[2022-06-06] MEDS: ACETAMINOPHEN 325 MG TABLET PO PRN ×2 (05:54→22:02)
[2022-06-06] MEDS: oxyCODONE 5 MG TABLET PO PRN ×3 (05:54→16:29)
[2022-06-06 07:35] LABS: CREATININE 1.1 mg/dL (0.4-1.0); POTASSIUM 4.9 mmol/L (3.5-5.0)
[2022-06-06] MEDS: ENOXAPARIN 40 MG/0.4 ML SYRINGE SUBQ SCH (08:03)
[2022-06-06] MEDS: polyethylene glycoL 3350 17 GM PACKET PO SCH (08:03)
[2022-06-06] MEDS: DICLOFENAC SODIUM DR 75 MG TABLET PO SCH ×2 (08:04→20:32)
[2022-06-06] MEDS: ASPIRIN EC 81 MG TABLET PO SCH (08:04)
[2022-06-06] MEDS: SENNA 8.6 MG TABLET PO SCH (08:04)
[2022-06-06] MEDS: levETIRAcetam 250 MG TABLET PO SCH ×2 (08:04→20:33)
[2022-06-06] MEDS: DOCUSATE SODIUM 250 MG CAPSULE PO SCH (08:05)
[2022-06-06] MEDS: CHOLECALCIFEROL 25 MCG TABLET PO SCH (08:05)
[2022-06-06] MEDS: BACLOFEN 10 MG TABLET PO SCH ×2 (08:05→20:32)
[2022-06-06] MEDS: LOSARTAN 50 MG TABLET PO SCH (08:09)
[2022-06-06] MEDS: carvediloL 3.125 MG TABLET PO SCH ×2 (08:09→20:32)
[2022-06-06] MEDS: NYSTATIN POWDER 15 GM TOP SCH ×2 (08:13→20:33)
--- NOTE | 2022-06-06 15:53 | PROVIDER PROGRESS NOTE ---
Progress Note June 06, 2022 3:49 PM No events from yesterday to today. We are continuing to work on hydration and making sure she has good p.o. intake. Temperature is 36.5. Heart rate 68. Blood pressure 125/74. Respirations 18. 93% on room air. Alert, oriented female who is always disheveled, and looks older than stated age. Partially edentulous. Cantankerous personality. Today very pleasant, cooperative. She does asked me to make sure though that I finished up quickly because she wants to get back to her TV program. Neck is supple Lungs are clear to auscultation and percussion. There is no tripoding. There is no use of accessory muscles. She is comfortable in bed. Is getting up and sitting up without any tachypnea. She is reaching for her water and drinking. Cardiac is with a regular rate and rhythm Abdomen is soft, nontender, normal bowel sounds. Last bowel movement was June 04. She is incontinent of urine and has a brief/pad on. Also uses a pure wick at times. The skin underneath her breast pannus has chronic changes of old candidiasis. As does underneath her abdominal pannus. Her back also has a flat nonpalpable nonblanchable discoloration of redness. That is been present for her entire stay according to nursing Extremities are with mild edema. Her affected knee is boggy, and she does not like to bend it. She is weightbearing but yells when she has to. BUN 17, creatinine 1.1 today Assessment/Plan as we await placement - Problem List (1) Acute kidney injury superimposed on CKD Assessment/Plan: I reviewed all her labs. We are still checking her BMP daily ever since her BUN/creatinine increased many days ago. An iv was (re)started and she received 2L of NS daily for the 3 days, then got no iv fluids yesterday 06/03, and 06/04 her BUN/creat had again alyssa. A specific order was given for 500 cc/shift and her creat has reponded to that today w nml creatinine. She is on no diuretics Plan: NS at 83.33 cc/hr and give 3L from 06/04 into today. stops today Cont to encourage po fluid intake and strict I's and O's were ordered to monitor Avoid diuretics Avoid nephrotoxins Follow BMP daily (2) Metaphyseal fracture of bone of right lower extremity Assessment/Plan: From the Ortho note of 06/01: Orthopedics is following the patient for non-operative management of non displaced supracondylar fracture. Patient was seen by myself and Dr. Garcia. She has been tolerating the splint well and is participating in physical and occupational therapy with toe touch weight bearing status. There continues to be no displacement with most recent x-ray and she is tolerating the splint without concern. Plan: - Continue nonoperative management for minimally displaced supracondylar fracture right distal femur, date of injury 05/14/2022 - Splint to remain dry and intact, orthopedics will redress the splint as needed - Hinged knee brace should not be used while the splint is in place, ideally the patient will transition to the hinged knee brace but did not tolerate it previ ously - The goal is to transition to a hinged knee brace at 4 weeks from date of injury. - Continue physical therapy and Occupational Therapy with toe-touch weightbearing to right lower extremity - Pain management and deep venous thrombosis prophylaxis per hospitalist physician -Disposition pending social work assessment and placement - Monitor for sharp increases in pain despite pain regimen, swelling or other concerning features of compartment syndrome Chronic or resolved problems: (3) Frequent falls at home Impression: Per pt's story she slipped and fell on some milk this time. Has a history of frequent falls, prior back pain, ankle pain. History of back and ankle surgery. Xrays obtained in ED were negative for fractures. PT noticed that she was only toe touching on the right leg, could not bear weight because her right knee hurt. She does not have aortic stenosis, orthostatic hypotension, arrhythmia, anemia that would cause these frequent falls. Plan: PT/OT working w her. She is ordered to have weight bearing as tolerated. (4) History of seizures Impression: Per EMR was on keppra several admissions ago. Has presented to ED with delirium, etiology uncertain, UTI, dehydration, post-ictal. Plan: continue keppra (5) Cognitive impairment Impression: Last recent hospitalization 1 week ago had a SLUMS test done by OT. Score 11/30, indicating severly cognitively impaired, staff was not sure if she was actively participating to make that an accurate score. The impression we got was that she was irritated with all of this and was throwing us out of the room and did not want to cooperate with questions. During this admission, she has agreed to go to group home placement and [facility] Plan: Social work is working on this placement. It is our wait for placement that keeps her here. (6) Coronary artery disease Impression: hx of MS Plan: continue therestarted b-briseida and baby aspirin daily, restarted her statin therapy Qualifiers: Coronary Disease-Associated Artery/Lesion type: [place] artery [place] vs. transplanted heart: [place] heart Associated angina: without angina Qualified Code(s): I25.10 - Atherosclerotic heart disease of [place] coronary artery without angina pectoris (7) Chronic HFrEF (heart failure with reduced ejection fraction) Impression: EF 35-40% by ECHO in 12/2021 Plan: b-briseida restarted, ARB restarted, restart spironolactone, no volume overload. (8) Altered mental status Impression: Resolved Has had several hospitalizations in past month, etiology felt to be post-ictal, dehydration, infectious Qualifiers: Altered mental status type: disorientation Qualified Code(s): R41.0 - Disorientation, unspecified (9) Rhabdomyolysis Impression: Resolved CK improved after IV fluids, taking good po intake now Qualifiers: Rhabdomyolysis type: non-traumatic Qualified Code(s): M62.82 - Rha bdomyolysis (10) Hypothyroidism Impression: high TSH 7.51 this admission. It is from not being on Synthroid for several days versus week Plan: Synthroid restarted at beginning of this adm, will check free T4, and TSH again in 4-6 weeks. Qualifiers: Hypothyroidism type: unspecified Qualified Code(s): E03.9 - Hypothyroidism, unspecified (11) HTN (hypertension) Impression: History of HTN, has been normotensive this admission Plan: monitor for HTN SBP>140 Qualifiers: Hypertension type: primary hypertension Qualified Code(s): I10 - Essential (primary) hypertension (12) Hx Multiple sclerosis As per Hx (13) Hyperlipidemia Impression: Plan: check HDL, LDL, triglycerides and ordered for the morning Qualifiers: Hyperlipidemia type: unspecified Qualified Code(s): E78.5 - Hyperlipidemia, unspecified (14) Hypernatremia Impression: Resolved (15) Hypokalemia Resolved
[2022-06-06] MEDS: ATORVASTATIN 40 MG TABLET PO SCH (20:32)
[2022-06-07] MEDS: oxyCODONE 5 MG TABLET PO PRN ×5 (00:34→22:07)
[2022-06-07] MEDS: ACETAMINOPHEN 325 MG TABLET PO PRN ×3 (02:04→22:07)
[2022-06-07] MEDS: LEVOTHYROXINE 25 MCG TABLET PO SCH (06:17)
[2022-06-07] MEDS: DOCUSATE SODIUM 250 MG CAPSULE PO SCH (09:52)
[2022-06-07] MEDS: BACLOFEN 10 MG TABLET PO SCH ×2 (09:53→22:06)
[2022-06-07] MEDS: DICLOFENAC SODIUM DR 75 MG TABLET PO SCH ×2 (09:53→22:07)
[2022-06-07] MEDS: CHOLECALCIFEROL 25 MCG TABLET PO SCH (09:53)
[2022-06-07] MEDS: carvediloL 3.125 MG TABLET PO SCH ×2 (09:53→22:06)
[2022-06-07] MEDS: ASPIRIN EC 81 MG TABLET PO SCH (09:53)
[2022-06-07] MEDS: LOSARTAN 50 MG TABLET PO SCH (09:54)
[2022-06-07] MEDS: ENOXAPARIN 40 MG/0.4 ML SYRINGE SUBQ SCH (09:54)
[2022-06-07] MEDS: levETIRAcetam 250 MG TABLET PO SCH ×2 (09:54→22:06)
[2022-06-07] MEDS: polyethylene glycoL 3350 17 GM PACKET PO SCH (09:55)
[2022-06-07] MEDS: NYSTATIN POWDER 15 GM TOP SCH ×2 (09:55→22:07)
[2022-06-07] MEDS: SENNA 8.6 MG TABLET PO SCH (09:55)
--- NOTE | 2022-06-07 16:09 | PROVIDER PROGRESS NOTE ---
Subjective - General Admit Date: 05/14/22 - Other Other Information/Narrative: She is upright in chair watching TV upon orthopedic team arrival She reports some soreness in her right knee, improved from the normal pain she reports She is tolerating the splint well without concern She states she is participating in physical therapy Objective - Patient Data Reviewed Vital Signs: Yes Vital Signs: Vital Signs x48h Temp Pulse Resp BP BP Pulse Ox 06/07/22 15:56 36.7 C 71 20 100/59 L 98 06/07/22 08:36 36.4 C L 69 18 124/56 L 95 Intake & Output: Intake and Output Totals x24h 06/05/22 06/06/22 06/07/22 23:59 23:59 23:59 Intake Total 2503.607 1030 1230 Output Total 3250 1900 1100 Balance -746.393 -870 130 - Lab Results Lab Results: 06/04/22 07:17 06/06/22 07:22 - Current Medications Current Medications: Current Medications Generic Name Dose Route Start Last Admin Trade Name Freq PRN Reason Stop Dose Admin Acetaminophen 650 mg 05/14/22 15:41 06/07/22 02:04 Acetaminophen 325 Mg Tablet PO 650 mg Q4HR PRN Administration Pain 1 to 4, or Fever Aspirin 81 mg 05/16/22 09:00 06/07/22 09:53 Aspirin Ec 81 Mg Tablet PO 81 mg DAILY JIN Administration Atorvastatin Calcium 40 mg 05/29/22 21:00 06/06/22 20:32 Atorvastatin 40 Mg Tablet PO 40 mg QPM JIN Administration Baclofen 30 mg 05/15/22 21:00 06/07/22 09:53 Baclofen 10 Mg Tablet PO 30 mg BID JIN Administration Carboxymethylcellulose 1 drops 05/21/22 17:59 05/21/22 19:07 Carboxymethylcellulose Ophth Drops EACHEYE 1 drops PRN PRN Administration Dry Eye Carvedilol 3.125 mg 05/15/22 09:00 06/07/22 09:53 Carvedilol 3.125 Mg Tablet PO 3.125 mg BID JIN Administration Cholecalciferol 50 mcg 05/21/22 12:00 06/07/22 09:53 Cholecalciferol 25 Mcg Tablet PO 50 mcg DAILY JIN Administration Diclofenac Sodium 75 mg 05/18/22 21:00 06/07/22 09:[address] 75 Mg Tablet PO 75 mg BID JIN Administration Docusate Sodium 250 - 500 mg 05/18/22 09:00 06/07/22 09:52 Docusate Sodium 250 Mg Capsule PO 250 mg DAILY JIN Administration Enoxaparin Sodium 40 mg 05/15/22 09:00 06/07/22 09:54 Enoxaparin 40 Mg/0.4 Ml Syringe SUBQ 40 mg DAILY JIN Administration Fluticasone Propionate 1 sprays 05/15/22 08:38 06/05/22 02:01 Fluticasone Nasal [place] WILLIE 1 sprays BID PRN Administration Nasal Congestion Levetiracetam 500 mg 05/15/22 21:00 06/07/22 09:54 Levetiracetam 250 Mg Tablet PO 500 mg BID JIN Administration Levothyroxine Sodium 50 mcg 05/16/22 07:00 06/07/22 06:17 Levothyroxine 25 Mcg Tablet PO 50 mcg QDAC JIN Administration Losartan Potassium 12.5 mg 05/15/22 09:00 06/07/22 09:54 Losartan 50 Mg Tablet PO 12.5 mg DAILY JIN Administration Multi-Ingredient Ointment 1 applic 05/29/22 16:07 06/05/22 20:30 Zinc Oxide 20% Oint 30 Gm Tube TOP 1 applic PRN PRN Administration Skin Care Nystatin 1 applic 05/15/22 21:00 06/07/22 09:55 Nystatin Powder 15 Gm TOP 1 applic BID JIN Administration Oxycodone HCl 5 mg 05/14/22 15:41 06/07/22 14:13 Oxycodone 5 Mg Tablet PO 5 mg Q4HR PRN Administration Pain 5 to 7 Polyethylene Glycol 17 gm 05/17/22 12:00 06/07/22 09:55 Polyethylene Glycol 3350 17 Gm Packet PO 17 gm DAILY JIN Administration Senna 8.6 - 17.2 mg 05/18/22 09:00 06/07/22 09:55 Senna 8.6 Mg Tablet PO 8.6 mg DAILY JIN Administration - Physical Exam Comments/Other: 66-year-old female, alert and cooperative She is sitting upright in the chair Splint is intact and in place to the right lower extremity No erythema or abrasions about the borders of the splint Neurovascularly intact to the right lower extremity Knee still rests in flexion of about 70 degrees in the splint Impression/Plan - Problem List Problem List: 66-year-old female who presented to the emergency department on 05/14/2022 after being found down after a fall. She was admitted for metabolic encephalopathy, acute kidney injury and frequent falls. On day 8 of admission she was found to have a minimally displaced supracondylar fracture of the right distal femur. Orthopedics is following the patient for non-operative management of non displaced supracondylar fracture. Patient was seen by myself and Dr. Garcia. She has been tolerating the splint well and is participating in physical and occupational therapy with toe touch weight bearing status. Plan: - Continue nonoperative management for minimally displaced supracondylar fracture right distal femur, date of injury 05/14/2022 - Splint to remain dry and intact, orthopedics will redress the splint as needed - Hinged knee brace should not be used while the splint is in place, ideally the patient will transition to the hinged knee brace but did not tolerate it previously - The goal is to transition to a hinged knee brace at 4 weeks from date of injury or prior to discharge - Continue physical therapy and Occupational Therapy with toe-touch weightbearing to right lower extremity - Pain management and deep venous thrombosis prophylaxis per hospitalist physician -Disposition pending social work assessment and placement
--- NOTE | 2022-06-07 17:42 | PROVIDER PROGRESS NOTE ---
Progress Note June 07, 2022 5:39 PM Ms. Lizarraga has not had any new events. She was seen by orthopedics today and I appreciate their progress note. She is tolerating the splint. Intermittently participating with physical therapy. We are just awaiting placement. Temperature is 36.7 heart rate 71 blood pressure 124/56 and later on is 100/59. Respirations 20. 98% room air Short, stocky overweight female who looks older than her stated age Oriented to person, place, and knows that its May and the year (it is June). Neck she speaks in a loud voice. Always seems like she is yelling but she does not seem to be aware of it. Neck is supple Lungs are clear to auscultation and percussion Regular rate and rhythm Abdomen is soft, nontender. Every shift nursing is documenting her fluid intake. Extremities without edema. The right knee has the brace in place. No labs today. Assessment/plan this is a 66-year-old female who presented yet with another episode of altered mental status. She is cleared. She really cannot live alone. All of her medical problems have been addressed during the stay which have included acute kidney insufficiency due to poor p.o. intake, and metaphyseal fracture of the right lower extremity, frequent falls at home, history of seizures, cognitive impairment, coronary artery disease. Chronic heart failure with reduced ejection fraction, rhabdomyolysis, hypothyroidism, hypertension, hyperlipidemia, hyponatremia and hypokalemia. There are no new orders today. We just await placement through social work efforts.
[2022-06-07] MEDS: ATORVASTATIN 40 MG TABLET PO SCH (22:06)
[2022-06-08] MEDS: oxyCODONE 5 MG TABLET PO PRN ×5 (02:04→21:29)
[2022-06-08] MEDS: ACETAMINOPHEN 325 MG TABLET PO PRN ×4 (03:26→23:47)
[2022-06-08] MEDS: LEVOTHYROXINE 25 MCG TABLET PO SCH (06:22)
[2022-06-08] MEDS: levETIRAcetam 250 MG TABLET PO SCH ×2 (09:40→21:28)
[2022-06-08] MEDS: BACLOFEN 10 MG TABLET PO SCH ×2 (09:40→21:27)
[2022-06-08] MEDS: CHOLECALCIFEROL 25 MCG TABLET PO SCH (09:40)
[2022-06-08] MEDS: carvediloL 3.125 MG TABLET PO SCH ×2 (09:41→21:28)
[2022-06-08] MEDS: DICLOFENAC SODIUM DR 75 MG TABLET PO SCH ×2 (09:41→21:28)
[2022-06-08] MEDS: ASPIRIN EC 81 MG TABLET PO SCH (09:41)
[2022-06-08] MEDS: LOSARTAN 50 MG TABLET PO SCH (09:42)
[2022-06-08] MEDS: SODIUM CHLORIDE FLUSH 0.9% 10 ML SYRINGE IVP PRN (09:44)
[2022-06-08] MEDS: ENOXAPARIN 40 MG/0.4 ML SYRINGE SUBQ SCH (09:47)
[2022-06-08] MEDS: polyethylene glycoL 3350 17 GM PACKET PO SCH (10:48)
[2022-06-08] MEDS: DOCUSATE SODIUM 250 MG CAPSULE PO SCH (10:48)
[2022-06-08] MEDS: SENNA 8.6 MG TABLET PO SCH (10:49)
[2022-06-08] MEDS: NYSTATIN POWDER 15 GM TOP SCH ×2 (12:32→21:28)
--- NOTE | 2022-06-08 17:15 | PROVIDER PROGRESS NOTE ---
Progress Note Every 2022 5:13 PM There have been no change in vital signs. No change in her diet. She is her usual lively self. Temperature is 36.2. Heart rate 71. Blood pressure 102/57. Respirations 18. 92% on room air. 5 foot 2 inches tall, 70.5 kg Neck is supple Lungs are clear. When she is speaking to me or to the nurses there is no incre ased respiratory effort or shortness of breath Regular rate and rhythm Abdomen is soft, nontender. Extremities without edema and the right knee continues to have the brace in place. Assessment/plan, patient was admitted May 14 with altered mental status. It was 1 of many admissions for altered mental status. She eventually cleared. With this admission, it was finally agreed that she could no longer return to home. She is amenable to being placed. We are currently awaiting social work progress. [facility] and we are waiting home and community services evaluation.
[2022-06-08] MEDS: ATORVASTATIN 40 MG TABLET PO SCH (21:27)
[2022-06-09] MEDS: LEVOTHYROXINE 25 MCG TABLET PO SCH (05:39)
[2022-06-09] MEDS: oxyCODONE 5 MG TABLET PO PRN ×4 (05:39→22:27)
[2022-06-09] MEDS: ACETAMINOPHEN 325 MG TABLET PO PRN ×4 (05:40→22:26)
[2022-06-09] MEDS: polyethylene glycoL 3350 17 GM PACKET PO SCH (08:18)
[2022-06-09] MEDS: ENOXAPARIN 40 MG/0.4 ML SYRINGE SUBQ SCH (08:18)
[2022-06-09] MEDS: SENNA 8.6 MG TABLET PO SCH (08:19)
[2022-06-09] MEDS: DOCUSATE SODIUM 250 MG CAPSULE PO SCH (08:20)
[2022-06-09] MEDS: ASPIRIN EC 81 MG TABLET PO SCH (08:20)
[2022-06-09] MEDS: carvediloL 3.125 MG TABLET PO SCH ×3 (08:20→22:23)
[2022-06-09] MEDS: CHOLECALCIFEROL 25 MCG TABLET PO SCH (08:20)
[2022-06-09] MEDS: DICLOFENAC SODIUM DR 75 MG TABLET PO SCH ×2 (08:21→22:26)
[2022-06-09] MEDS: LOSARTAN 50 MG TABLET PO SCH ×2 (08:21→11:28)
[2022-06-09] MEDS: levETIRAcetam 250 MG TABLET PO SCH ×2 (08:21→22:23)
[2022-06-09] MEDS: BACLOFEN 10 MG TABLET PO SCH ×2 (08:21→22:23)
[2022-06-09] MEDS: NYSTATIN POWDER 15 GM TOP SCH ×2 (08:26→22:26)
[2022-06-09 09:37] LABS: CALCIUM 9.4 mg/dL (8.5-10.3); CREATININE 1.2 mg/dL (0.4-1.0); POTASSIUM 4.2 mmol/L (3.5-5.0)
--- NOTE | 2022-06-09 17:34 | PROVIDER PROGRESS NOTE ---
Progress Note June 09, 2022 5:22 PM And spite of scheduling, asking, prompting, Ms. Lizarraga really does not want to get a bed unless she feels the need to. She does work with physical therapy but does so intermittently. The plan is for her to go to a correction facility. I am afraid that when she gets there she may never get up again. We also still have to keep on constantly prompting her to eat or drink. Today's creatinine is 1.2, back up again. I really do not want a give her IV fluids in a constant basis. The right knee bothers her. She does not want a weak weightbearing on it. But she says pain is okay as long she is staying in bed. Temperature is 36.7. Heart rate 66. Blood pressure 106/56. Respirations 20. 95% on room air. 5 feet 2 inch obese female at 70.5 kg. Alert, oriented to the fact she is in the hospital but not the date. Speech is loud, lucid, and abrupt Neck is supple Lungs are clear. There is no respiratory distress. Talking nonstop. Abdomen is soft, nontender, last BM was today. She did eat 50% of lunch and 100% of breakfast. Extremities without edema. The right knee has less and less edema has time goes on. Splint in place. Sodium 141, potassium 4.2, BUN 23, creatinine 1.2. Glucose 131. Assessment/plan This is a 66-year-old female who presented with this admission on May 14 after a fall at home and laying on the floor overnight. She had rhabdomyolysis, and had acute confusion. This is 1 of many multiple admissions. In the past this has been either from UTI, falls, overdose of [id number] Sudafed, overdose of her controlled substances. Her acute medical problems during the stay have resolved. Her main problem is pushing p.o. fluids on her. She really does not like to drink fluids and as such her creatinine will go up.Today I have asked the nurses to again please encourage p.o. intake. I do not want to give her more IV fluids. I am trying to transition her to a strictly an outpatient management. She will not be getting IV fluids at the custodial. She also really does not want to exercise with physical therapy because of knee pain due to a distal metaphyseal femoral fracture. We are awaiting placement at a custodial.
[2022-06-09] MEDS: ATORVASTATIN 40 MG TABLET PO SCH (22:23)
[2022-06-10] MEDS: BACLOFEN 10 MG TABLET PO SCH ×2 (08:06→22:18)
[2022-06-10] MEDS: DICLOFENAC SODIUM DR 75 MG TABLET PO SCH ×2 (08:06→22:18)
[2022-06-10] MEDS: levETIRAcetam 250 MG TABLET PO SCH ×2 (08:06→22:19)
[2022-06-10] MEDS: carvediloL 3.125 MG TABLET PO SCH ×2 (08:07→22:19)
[2022-06-10] MEDS: ASPIRIN EC 81 MG TABLET PO SCH (08:07)
[2022-06-10] MEDS: LOSARTAN 50 MG TABLET PO SCH (08:07)
[2022-06-10] MEDS: CHOLECALCIFEROL 25 MCG TABLET PO SCH (08:07)
[2022-06-10] MEDS: SODIUM CHLORIDE FLUSH 0.9% 10 ML SYRINGE IVP PRN (08:09)
[2022-06-10] MEDS: ENOXAPARIN 40 MG/0.4 ML SYRINGE SUBQ SCH (08:09)
[2022-06-10] MEDS: NYSTATIN POWDER 15 GM TOP SCH ×2 (08:11→22:44)
[2022-06-10] MEDS: LEVOTHYROXINE 25 MCG TABLET PO SCH (09:21)
[2022-06-10] MEDS: DOCUSATE SODIUM 250 MG CAPSULE PO SCH (09:22)
[2022-06-10] MEDS: polyethylene glycoL 3350 17 GM PACKET PO SCH (09:22)
[2022-06-10] MEDS: SENNA 8.6 MG TABLET PO SCH (09:22)
[2022-06-10] MEDS: ACETAMINOPHEN 325 MG TABLET PO PRN ×2 (10:29→17:18)
[2022-06-10] MEDS: oxyCODONE 5 MG TABLET PO PRN ×2 (11:24→17:18)
[2022-06-10] MEDS: ATORVASTATIN 40 MG TABLET PO SCH (22:19)
[2022-06-11] MEDS: oxyCODONE 5 MG TABLET PO PRN ×5 (03:32→23:44)
[2022-06-11] MEDS: LEVOTHYROXINE 25 MCG TABLET PO SCH (06:36)
[2022-06-11] MEDS: ACETAMINOPHEN 325 MG TABLET PO PRN ×4 (09:47→23:44)
[2022-06-11] MEDS: DOCUSATE SODIUM 250 MG CAPSULE PO SCH (09:48)
[2022-06-11] MEDS: BACLOFEN 10 MG TABLET PO SCH ×2 (09:48→20:32)
[2022-06-11] MEDS: CHOLECALCIFEROL 25 MCG TABLET PO SCH (09:48)
[2022-06-11] MEDS: LOSARTAN 50 MG TABLET PO SCH (09:49)
[2022-06-11] MEDS: DICLOFENAC SODIUM DR 75 MG TABLET PO SCH ×2 (09:49→20:32)
[2022-06-11] MEDS: ASPIRIN EC 81 MG TABLET PO SCH (09:51)
[2022-06-11] MEDS: levETIRAcetam 250 MG TABLET PO SCH ×2 (09:51→20:32)
[2022-06-11] MEDS: carvediloL 3.125 MG TABLET PO SCH ×2 (09:51→20:32)
[2022-06-11] MEDS: ENOXAPARIN 40 MG/0.4 ML SYRINGE SUBQ SCH (09:53)
[2022-06-11] MEDS: polyethylene glycoL 3350 17 GM PACKET PO SCH (09:53)
[2022-06-11] MEDS: SENNA 8.6 MG TABLET PO SCH (09:53)
[2022-06-11] MEDS: NYSTATIN POWDER 15 GM TOP SCH ×2 (12:09→20:32)
--- NOTE | 2022-06-11 18:29 | PROVIDER PROGRESS NOTE ---
Progress Note June 10, 2022 5 PM No new events. No new problems. We are just awaiting placement. Temperature is 36.6. Heart rate 68. Blood pressure 102/58. Respirations 16. 93% on room air. Carole is alert, oriented. Still speaks to me in a very loud voice. Usually pleasant with me. Every once while I can hear her throwing out the nurse or the aide because she just does not want to deal with it. Neck is supple. Lungs are clear. Regular rate and rhythm Abdomen soft and nontender Prefers to be in bed. She can get up and weight-bear but it hurts her knee where she has a distal femoral metaphyseal fracture. The swelling has gone down substantially since the fracture. She does not like wearing the leg brace when she is weightbearing. The last time physical therapy saw her was June 07. Today's a very busy day. They will try and see her tomorrow. Assessment/plan Admitted May 14 after a fall from home and laying on the floor overnight. She had rhabdomyolysis, acute confusion that resolved. This is 1 of many admissions where she is admitted for either accidental drug overdose of [id number] drugs, accidental drug overdose of her prescription drugs, UTIs, and each time has been evident that she has some cognitive deficits and probably should not go home. She has been insistent all this time that she was going home. With this admission she has finally realized that she probably is not safe at home and is agreed for placement. Home and community services evaluated her. The [facility] is now in the process of negotiating with [facility] about the daily rate. The plan is for her to be placed there. We are checking labs for tomorrow. Her main problem is pushing p.o. fluids on her. She will get occasional acute kidney injury. Nursing has been working with her on a shift basis. Every time they walk in the room they have her swallow a few sips of water.
--- NOTE | 2022-06-11 18:32 | PROVIDER PROGRESS NOTE ---
Progress Note June 11, 2022 6:30 PM This is essentially a nonbillable rounding on this patient that is awaiting placement. There has been no new events. I did not order labs on her for today and will order them for her tomorrow. Temperature is 36.4. Heart rate 71. Blood pressure 105/65. Respirations 16. 95% on room air. 5 foot 2 inch female, 70.5 kg. Lungs are clear no respiratory distress Regular rate and rhythm Abdomen soft, protuberant, nontender. She is having daily bowel movements. She had 1 today. She is incontinent of urine. Uses a pure wick or a brief or pad. Extremities are without edema with pitting. Right knee with limited range of motion because of previous fracture. Skin is remarkable for psoriasis. She has had that since admission. That is unchanged. Assessment/plan No new problems. Awaiting placement.
[2022-06-11] MEDS: ATORVASTATIN 40 MG TABLET PO SCH (20:32)
[2022-06-12 05:07] LABS: BASOPHILS # (AUTO) 0.1 10^3/uL (0.0-0.1); BASOPHILS % (AUTO) 1.5 %; EOSINOPHILS # (AUTO) 0.4 10^3/uL (0.0-0.7); EOSINOPHILS % (AUTO) 4.9 %; HCT - HEMATOCRIT 33.6 % (37.0-47.0); HGB - HEMOGLOBIN 10.2 g/dL (12.0-16.0); LYMPHOCYTES % (AUTO) 39.1 %; MEAN CORPUSCULAR HEMOGLOBIN 28.3 pg (27.0-31.0); MEAN CORPUSCULAR HGB CONC 30.4 g/dL (32.0-36.0); MEAN CORPUSCULAR VOLUME 93.3 fL (81.0-99.0); MEAN PLATELET VOLUME 10.5 fL (7.9-10.8); MONOCYTES # (AUTO) 0.9 10^3/uL (0.0-1.0); MONOCYTES % (AUTO) 11.1 %; NEUTROPHILS # (AUTO) 3.4 10^3/uL (1.5-6.6); NEUTROPHILS % (AUTO) 43.3 %; PLT - PLATELET COUNT 315 10^3/uL (130-450); RED CELL DISTRIBUTION WIDTH 15.9 % (12.0-15.0); WHITE BLOOD COUNT 7.8 x10^3/uL (4.8-10.8)
[2022-06-12 05:29] LABS: CALCIUM 9.8 mg/dL (8.5-10.3); CREATININE 1.6 mg/dL (0.4-1.0); POTASSIUM 5.1 mmol/L (3.5-5.0)
[2022-06-12] MEDS: oxyCODONE 5 MG TABLET PO PRN ×4 (05:53→20:19)
[2022-06-12] MEDS: ACETAMINOPHEN 325 MG TABLET PO PRN ×4 (05:54→20:19)
[2022-06-12] MEDS: LEVOTHYROXINE 25 MCG TABLET PO SCH (05:54)
[2022-06-12] MEDS: SODIUM CHLORIDE FLUSH 0.9% 10 ML SYRINGE IVP PRN (08:38)
[2022-06-12] MEDS: NYSTATIN POWDER 15 GM TOP SCH ×2 (08:41→20:20)
[2022-06-12] MEDS: ASPIRIN EC 81 MG TABLET PO SCH ×2 (08:43→08:45)
[2022-06-12] MEDS: levETIRAcetam 250 MG TABLET PO SCH ×2 (08:44→20:20)
[2022-06-12] MEDS: CHOLECALCIFEROL 25 MCG TABLET PO SCH (08:45)
[2022-06-12] MEDS: BACLOFEN 10 MG TABLET PO SCH ×2 (08:49→20:20)
[2022-06-12] MEDS: DICLOFENAC SODIUM DR 75 MG TABLET PO SCH ×2 (08:51→20:19)
[2022-06-12] MEDS: DOCUSATE SODIUM 250 MG CAPSULE PO SCH (08:54)
[2022-06-12] MEDS: ENOXAPARIN 40 MG/0.4 ML SYRINGE SUBQ SCH (08:57)
[2022-06-12] MEDS: polyethylene glycoL 3350 17 GM PACKET PO SCH (09:17)
[2022-06-12] MEDS: SENNA 8.6 MG TABLET PO SCH (09:19)
[2022-06-12] MEDS: carvediloL 3.125 MG TABLET PO SCH ×2 (09:24→20:19)
[2022-06-12] MEDS: DEXTROSE 5%-0.45% NACL 1,000 ML IV SCH ×2 (12:02→23:30)
[2022-06-12] MEDS: SODIUM CHLORIDE FLUSH 0.9% 10 ML SYRINGE IVP SCH (17:37)
--- NOTE | 2022-06-12 19:05 | PROVIDER PROGRESS NOTE ---
Assessment/Plan - Problem List (1) Acute kidney injury superimposed on CKD Assessment/Plan: I reviewed all her labs. We are still checking her BMP occaionally ever since her BUN/creatinine increased many days ago. An iv was (re)started and she received NS daily. She is on no diuretics. Today (06/12) she is hyperkalemic (K 5.1) as well as has elevated BUN/creat of 29/1.6, higher than on 06/09 Plan: Will order iv D5 05/07 NS. Hopefully improving her creat will bring down her serum K Cont to encourage po fluid intake and strict I's and O's were ordered to monitor Avoid diuretics Avoid nephrotoxins Follow BMP occaisonally (2) Metaphyseal fracture of bone of right lower extremity Assessment/Plan: Plan: Continue with pain management, orthopedic equipment to the knee that she can tolerate, and continue working with PT and OT Chronic or resolved problems: (3) Frequent falls at home Impression: Per pt's story she slipped and fell on some milk this time. Has a history of frequent falls, prior back pain, ankle pain. History of back and ankle surgery. Xrays obtained in ED were negative for fractures. PT noticed that she was only toe touching on the right leg, could not bear weight because her right knee hurt. She does not have aortic stenosis, orthostatic hypotension, arrhythmia, anemia that would cause these frequent falls. Plan: PT/OT working w her. She is ordered to have weight bearing as tolerated. (4) History of seizures Impression: Per EMR was on keppra several admissions ago. Has presented to ED with delirium, etiology uncertain, UTI, dehydration, post-ictal. Plan: continue keppra (5) Cognitive impairment Impression: Last recent hospitalization 1 week ago had a SLUMS test done by OT. Score 11/30, indicating severly cognitively impaired, staff was not sure if she was actively participating to make that an accurate score. The impression we got was that she was irritated with all of this and was throwing us out of the room and did not want to cooperate with questions. During this admission, she has agreed to go to group home placement and [facility] Plan: Social work is working on this placement. It is our wait for placement that keeps her here. (6) Coronary artery disease Impression: hx of [place] Plan: continue therestarted b-briseida and baby aspirin daily, restarted her statin therapy Qualifiers: Coronary Disease-Associated Artery/Lesion type: resighini artery [place] vs. transplanted heart: resighini heart Associated angina: without angina Qualified Code(s): I25.10 - Atherosclerotic heart disease of resighini coronary artery without angina pectoris (7) Chronic HFrEF (heart failure with reduced ejection fraction) Impression: EF 35-40% by ECHO in 12/2021 Plan: b-briseida restarted, ARB restarted, restart spironolactone, no volume overload. (8) Altered mental status Impression: Resolved Has had several hospitalizations in past month, etiology felt to be post-ictal, dehydration, infectious Qualifiers: Altered mental status type: disorientation Qualified Code(s): R41.0 - Disorientation, unspecified (9) Rhabdomyolysis Impression: Resolved CK improved after IV fluids, taking good po intake now Qualifiers: Rhabdomyolysis type: non-traumatic Qualified Code(s): M62.82 - Rhabdomyolysis (10) Hypothyroidism Impression: high TSH 7.51 this admission. It is from not being on Synthroid for several days versus week Plan: Synthroid restarted at beginning of this adm, will check free T4, and TSH again in 4-6 weeks. Qualifiers: Hypothyroidism type: unspecified Qualified Code(s): E03.9 - Hypothyroidism, unspecified (11) HTN (hypertension) Impression: History of HTN, has been normotensive this admission Plan: monitor for HTN SBP>140 Qualifiers: Hypertension type: primary hypertension Qualified Code(s): I10 - Essential (primary) hypertension (12) Hx Multiple sclerosis As per Hx (13) Hyperlipidemia Impression: Plan: check HDL, LDL, triglycerides and ordered for the morning Qualifiers: Hyperlipidemia type: unspecified Qualified Code(s): E78.5 - Hyperlipidemia, unspecified (14) Hypernatremia Impression: Resolved (15) Hypokalemia Resolved. - Current Meds Current Meds: Current Medications Generic Name Dose Route Start Last Admin Trade Name Freq PRN Reason Stop Dose Admin Acetaminophen 650 mg 05/14/22 15:41 06/12/22 16:15 Acetaminophen 325 Mg Tablet PO 650 mg Q4HR PRN Administration Pain 1 to 4, or Fever Aspirin 81 mg 05/16/22 09:00 06/12/22 08:45 Aspirin Ec 81 Mg Tablet PO 81 mg DAILY JIN Administration Atorvastatin Calcium 40 mg 05/29/22 21:00 06/11/22 20:32 Atorvastatin 40 Mg Tablet PO 40 mg QPM JIN Administration Baclofen 30 mg 05/15/22 21:00 06/12/22 08:49 Baclofen 10 Mg Tablet PO 30 mg BID JIN Administration Carboxymethylcellulose 1 drops 05/21/22 17:59 05/21/22 19:07 Carboxymethylcellulose Ophth Drops EACHEYE 1 drops PRN PRN Administration Dry Eye Cholecalciferol 50 mcg 05/21/22 12:00 06/12/22 08:45 Cholecalciferol 25 Mcg Tablet PO 50 mcg DAILY JIN Administration Diclofenac Sodium 75 mg 05/18/22 21:00 06/12/22 08:[address] 75 Mg Tablet PO 75 mg BID [facility] Administration Docusate Sodium 250 - 500 mg 05/18/22 09:00 06/12/22 08:54 Docusate Sodium 250 Mg Capsule PO 250 mg DAILY JIN Administration Enoxaparin Sodium 40 mg 05/15/22 09:00 06/12/22 08:57 Enoxaparin 40 Mg/0.4 Ml Syringe SUBQ 40 mg DAILY [facility] Administration Fluticasone Propionate 1 sprays 05/15/22 08:38 06/05/22 02:01 Fluticasone Nasal [place] WILLIE 1 sprays BID PRN Administration Nasal Congestion Dextrose/Sodium Chloride 1,000 mls @ 83.333 mls/hr 06/12/22 10:00 06/12/22 12:02 D5.45ns IV 06/13/22 09:59 83.333 mls/hr .Q12H JIN Administration Levetiracetam 500 mg 05/15/22 21:00 06/12/22 08:44 Levetiracetam 250 Mg Tablet PO 500 mg BID [facility] Administration Levothyroxine Sodium 50 mcg 05/16/22 07:00 06/12/22 05:54 Levothyroxine 25 Mcg Tablet PO 50 mcg QDAC [facility] Administration Multi-Ingredient Ointment 1 applic 05/29/22 16:07 06/05/22 20:30 Zinc Oxide 20% Oint 30 Gm Tube TOP 1 applic PRN PRN Administration Skin Care Nystatin 1 applic 05/15/22 21:00 06/12/22 08:41 Nystatin Powder 15 Gm TOP 1 applic BID JIN Administration Oxycodone HCl 5 mg 05/14/22 15:41 06/12/22 16:15 Oxycodone 5 Mg Tablet PO 5 mg Q4HR PRN Administration Pain 5 to 7 Polyethylene Glycol 17 gm 05/17/22 12:00 06/12/22 09:17 Polyethylene Glycol 3350 17 Gm Packet PO 17 gm DAILY JIN Administration Senna 8.6 - 17.2 mg 05/18/22 09:00 06/12/22 09:19 Senna 8.6 Mg Tablet PO 8.6 mg DAILY JIN Administration Sodium Chloride 10 ml 06/06/22 17:15 06/12/22 08:38 Sodium Chloride Flush 0.9% 10 Ml Syringe IVP 10 ml PRN PRN Administration PER PHYSICIAN ORDER Sodium Chloride 10 ml 06/12/22 17:00 06/12/22 17:37 Sodium Chloride Flush 0.9% 10 Ml Syringe IVP Not Given 0100,0900,1700 JIN - Lab Result Fish Bone Diagrams: 06/13/22 05:02 06/13/22 05:02 - Additional Planning My Orders: My Active Orders 06/12/22 09:24 Losartan [Cozaar] 12.5 mg PO DAILY carvediloL [Coreg] 3.125 mg PO BID 06/12/22 10:00 Dextrose 5%-0.45% NaCl [D5.45ns] 1,000 ml IV 83.333 mls/hr 06/12/22 17:00 Sodium Chloride Flush 0.9% [Normal Saline Flush 0.9%] 10 ml IVP 0100,0900,1700 Subjective - Subjective Patient Reports: No Complaints Objective Vital Signs: Vital Signs - 24 hr 06/12/22 06/12/22 07:43 16:30 Temperature 36.4 C L 36.5 C Heart Rate [ 66 65 Brachial] Respiratory 20 18 Rate Blood Pressure 96/59 L 96/53 L [Right Brachial artery] O2 Saturation 100 100 Oxygen O2 Source [With Activity] Room air O2 Source [Without Activity] Room air O2 Source Room air I&O (Last 24 Hrs): Intake and Output Totals x24h 06/10/22 06/11/22 06/12/22 23:59 23:59 23:59 Intake Total 910 760 470 Output Total 1450 1600 900 Balance -540 -840 -430 General: Alert Neuro: Alert, Non Focal Respiratory: No respiratory distress Abdomen: Soft - Results Results: Laboratory Results WBC 7.8 x10^3/uL (4.8-10.8) 06/12/22 04:46 RBC 3.60 10^6/uL (4.20-5.40) L 06/12/22 04:46 Hgb 10.2 g/dL (12.0-16.0) L 06/12/22 04:46 Hct 33.6 % (37.0-47.0) L 06/12/22 04:46 MCV 93.3 fL (81.0-99.0) 06/12/22 04:46 MCH 28.3 pg (27.0-31.0) 06/12/22 04:46 MCHC 30.4 g/dL (32.0-36.0) L 06/12/22 04:46 RDW 15.9 % (12.0-15.0) H 06/12/22 04:46 Plt Count 315 10^3/uL (130-450) 06/12/22 04:46 MPV 10.5 fL (7.9-10.8) 06/12/22 04:46 Neut # (Auto) 3.4 10^3/uL (1.5-6.6) 06/12/22 04:46 Lymph # (Auto) 3.0 10^3/uL (1.5-3.5) 06/12/22 04:46 [place] # (Auto) 0.9 10^3/uL (0.0-1.0) 06/12/22 04:46 Eos # (Auto) 0.4 10^3/uL (0.0-0.7) 06/12/22 04:46 Baso # (Auto) 0.1 10^3/uL (0.0-0.1) 06/12/22 04:46 Absolute Nucleated RBC 0.00 x10^3/uL 06/12/22 04:46 Nucleated RBC % 0.0 /100WBC 06/12/22 04:46 Sodium 142 mmol/L (135-145) 06/12/22 04:46 Potassium 5.2 mmol/L (3.5-5.0) H 06/12/22 15:30 Chloride 105 mmol/L (101-111) 06/12/22 04:46 Carbon Dioxide 24 mmol/L (21-32) 06/12/22 04:46 Anion Gap 13.0 (6-13) 06/12/22 04:46 BUN 29 mg/dL (6-20) H 06/12/22 04:46 Creatinine 1.6 mg/dL (0.4-1.0) H 06/12/22 04:46 Estimated GFR (MDRD) 32 (>89) L 06/12/22 04:46 Glucose 92 mg/dL (70-100) 06/12/22 04:46 Lactic Acid 1.6 mmol/L (0.5-2.2) 05/14/22 11:58 Calcium 9.8 mg/dL (8.5-10.3) 06/12/22 04:46 Total Bilirubin 0.9 mg/dL (0.2-1.0) 05/14/22 11:58 AST 73 IU/L (10-42) H 05/14/22 11:58 ALT 28 IU/L (10-60) 05/14/22 11:58 Alkaline Phosphatase 120 IU/L (42-121) 05/14/22 11:58 Ammonia 12.4 umol/L (7-35) 05/14/22 11:58 Total Creatine Kinase 742 IU/L (22-269) H 05/18/22 04:47 C-Reactive Protein 11.3 mg/dL (0-1.0) H 05/15/22 04:15 B-Natriuretic Peptide 468 pg/mL (5-100) H 05/14/22 11:58 Total Protein 8.3 g/dL (6.7-8.2) H 05/14/22 11:58 Albumin 4.0 g/dL (3.2-5.5) 05/14/22 11:58 Globulin 4.3 g/dL (2.1-4.2) H 05/14/22 11:58 Albumin/Globulin Ratio 0.9 (1.0-2.2) L 05/14/22 11:58 Triglycerides 201 mg/dL (-149) H 05/29/22 04:40 Cholesterol 251 mg/dL (-199) H 05/29/22 04:40 LDL Cholesterol, Calc 177 mg/dL (-129) H 05/29/22 04:40 VLDL Cholesterol 40 mg/dL 05/29/22 04:40 HDL Cholesterol 34 mg/dL (60-) L 05/29/22 04:40 LDL/HDL Ratio 5.2 (<4.4) 05/29/22 04:40 Cholesterol/HDL Ratio 7.4 (<4.4) 05/29/22 04:40 Lipase 31 U/L (22-51) 05/14/22 11:58 TSH 4.51 uIU/mL (0.34-5.60) 05/30/22 10:09 Cortisol AM Sample 6.3 ug/dL 05/29/22 04:40 Urine Color YELLOW 05/14/22 12:40 Urine Clarity HAZY (CLEAR) 05/14/22 12:40 Urine pH 6.0 PH (5.0-7.5) 05/14/22 12:40 Ur Specific [place] 1.025 (1.002-1.030) 05/14/22 12:40 Urine Protein 30 mg/dL (NEGATIVE) H 05/14/22 12:40 Urine Glucose (UA) NEGATIVE mg/dL (NEGATIVE) 05/14/22 12:40 Urine Ketones TRACE mg/dL (NEGATIVE) 05/14/22 12:40 Urine Occult Blood LARGE (NEGATIVE) H 05/14/22 12:40 Urine Nitrite NEGATIVE (NEGATIVE) 05/14/22 12:40 Urine Bilirubin NEGATIVE (NEGATIVE) 05/14/22 12:40 Urine Urobilinogen 0.2 (NORMAL) E.U./dL (NORMAL) 05/14/22 12:40 Ur Leukocyte Esterase NEGATIVE (NEGATIVE) 05/14/22 12:40 Urine RBC 6-10 /HPF (0-5) H 05/14/22 12:40 Urine WBC 0-3 /HPF (0-5) 05/14/22 12:40 Ur Squamous Epith Cells MOD Squamous (<= Few) H 05/14/22 12:40 Urine Bacteria Few /HPF (None Seen) 05/14/22 12:40 Urine Casts 0-2 Fine Granular /LPF0-2 Hyaline Casts /LPF 05/14/22 12:40 Urine Casts 0-2 Fine Granular /LPF0-2 Hyaline Casts /LPF 05/14/22 12:40 Ur Microscopic Review INDICATED 05/14/22 12:40 Urine Culture Comments NOT INDICATED 05/14/22 12:40 Urine Opiates Screen NEGATIVE (NEGATIVE) 05/14/22 12:40 Ur Oxycodone Screen POSITIVE (NEGATIVE) H 05/14/22 12:40 Urine Methadone Screen NEGATIVE (NEGATIVE) 05/14/22 12:40 Ur Propoxyphene Screen NEGATIVE (NEGATIVE) 05/14/22 12:40 Ur Barbiturates Screen NEGATIVE (NEGATIVE) 05/14/22 12:40 Ur Tricyclics Screen NEGATIVE (NEGATIVE) 05/14/22 12:40 Ur Phencyclidine Scrn NEGATIVE (NEGATIVE) 05/14/22 12:40 Ur Amphetamine Screen NEGATIVE (NEGATIVE) 05/14/22 12:40 U Methamphetamines Scrn NEGATIVE (NEGATIVE) 05/14/22 12:40 U Benzodiazepines Scrn NEGATIVE (NEGATIVE) 05/14/22 12:40 Urine Cocaine Screen NEGATIVE (NEGATIVE) 05/14/22 12:40 U Cannabinoids Screen NEGATIVE (NEGATIVE) 05/14/22 12:40 Ethyl Alcohol < 5.0 mg/dL 05/14/22 11:58 MAC Interpretation Comment (.) 05/15/22 09:04 Anti-sm/SPORTS PHYSICAL THERAPIST Abs <0.2 AI (0.0-0.9) 05/15/22 09:04 RAFAELA-1 Antibody <0.2 AI (0.0-0.9) 05/15/22 09:04 SS-A/Ro Antibody <0.2 AI (0.0-0.9) 05/15/22 09:04 SS-B/La Antibody 0.4 AI (0.0-0.9) 05/15/22 09:04 Sm (Triana) Antibody <0.2 AI (0.0-0.9) 05/15/22 09:04 SPORTS PHYSICAL THERAPIST Antibody 0.5 AI (0.0-0.9) 05/15/22 09:04 Scl-70 Scleroderma Ab <0.2 AI (0.0-0.9) 05/15/22 09:04 Double Strand DNA Ab <1 IU/mL (0-9) 05/15/22 09:04 Ribosomal P Prot Ab <0.2 AI (0.0-0.9) 05/15/22 09:04 Chromatin Antibody <0.2 AI (0.0-0.9) 05/15/22 09:04 Centromere B Antibody <0.2 AI (0.0-0.9) 05/15/22 09:04 SARS-CoV-2 (PCR) NOT DETECTED 05/14/22 13:40 - Procedures Procedures: Procedures INSERTION OF INFUSION DEV INTO SUP VENA CAVA, PERC APPROACH (12/10/21)
[2022-06-12] MEDS: ATORVASTATIN 40 MG TABLET PO SCH (20:20)
[2022-06-13] MEDS: oxyCODONE 5 MG TABLET PO PRN ×5 (00:34→22:29)
[2022-06-13] MEDS: SODIUM CHLORIDE FLUSH 0.9% 10 ML SYRINGE IVP SCH ×3 (00:35→17:17)
[2022-06-13] MEDS: LEVOTHYROXINE 25 MCG TABLET PO SCH (04:45)
[2022-06-13 05:29] LABS: BASOPHILS % (AUTO) 1.6 %; EOSINOPHILS % (AUTO) 7.1 %; HCT - HEMATOCRIT 33.9 % (37.0-47.0); HGB - HEMOGLOBIN 10.2 g/dL (12.0-16.0); LYMPHOCYTES % (AUTO) 34.1 %; MEAN CORPUSCULAR HEMOGLOBIN 28.1 pg (27.0-31.0); MEAN CORPUSCULAR HGB CONC 30.1 g/dL (32.0-36.0); MEAN CORPUSCULAR VOLUME 93.4 fL (81.0-99.0); MEAN PLATELET VOLUME 10.7 fL (7.9-10.8); MONOCYTES % (AUTO) 9.7 %; NEUTROPHILS % (AUTO) 47.2 %; PLT - PLATELET COUNT 306 10^3/uL (130-450); RED BLOOD COUNT 3.63 10^6/uL (4.20-5.40); RED CELL DISTRIBUTION WIDTH 15.6 % (12.0-15.0); WHITE BLOOD COUNT 9.3 x10^3/uL (4.8-10.8)
[2022-06-13 05:32] LABS: ABNORMAL LYMPHS % (MANUAL) 0 %; BAND NEUTROPHILS % (MANUAL) 0 %
[2022-06-13 05:40] LABS: CALCIUM 9.7 mg/dL (8.5-10.3); CREATININE 1.2 mg/dL (0.4-1.0); POTASSIUM 4.8 mmol/L (3.5-5.0)
[2022-06-13 06:03] LABS: BASOPHILS # (MANUAL) 0.2 10^3/uL (0-0.1); BASOPHILS % (MANUAL) 2 %; DIFFERENTIAL COMMENT MANUAL DIFFERENTIAL; EOSINOPHILS # (MANUAL) 0.7 10^3/uL (0-0.7); LYMPHOCYTES # (MANUAL) 2.5 10^3/uL (1.5-3.5); LYMPHOCYTES % (MANUAL) 27 %; MONOCYTES # (MANUAL) 0.7 10^3/uL (0.0-1.0); NEUTROPHILS # (MANUAL) 5.1 10^3/uL (1.5-6.6); PLATELET ESTIMATE, MANUAL NORMAL (130-450,000) (NORMAL); PLATELET MORPHOLOGY NORMAL APPEARANCE (NORMAL); RBC MORPHOLOGY (MULTIPLE) NORMAL APPEARANCE (NORMAL); WBC MORPHOLOGY (MULTIPLE) NORMAL APPEARANCE (NORMAL)
[2022-06-13] MEDS: polyethylene glycoL 3350 17 GM PACKET PO SCH (08:53)
[2022-06-13] MEDS: DOCUSATE SODIUM 250 MG CAPSULE PO SCH (09:00)
[2022-06-13] MEDS: CHOLECALCIFEROL 25 MCG TABLET PO SCH (09:00)
[2022-06-13] MEDS: SENNA 8.6 MG TABLET PO SCH (09:01)
[2022-06-13] MEDS: carvediloL 3.125 MG TABLET PO SCH ×2 (09:01→21:42)
[2022-06-13] MEDS: BACLOFEN 10 MG TABLET PO SCH ×2 (09:01→21:37)
[2022-06-13] MEDS: LOSARTAN 50 MG TABLET PO SCH (09:01)
[2022-06-13] MEDS: DICLOFENAC SODIUM DR 75 MG TABLET PO SCH ×2 (09:01→21:35)
[2022-06-13] MEDS: levETIRAcetam 250 MG TABLET PO SCH ×2 (09:01→21:37)
[2022-06-13] MEDS: NYSTATIN POWDER 15 GM TOP SCH ×2 (09:03→22:29)
[2022-06-13] MEDS: ENOXAPARIN 40 MG/0.4 ML SYRINGE SUBQ SCH (09:03)
[2022-06-13] MEDS: ACETAMINOPHEN 325 MG TABLET PO PRN ×3 (11:00→21:35)
[2022-06-13] MEDS: ZINC OXIDE 20% OINT 30 GM TUBE TOP PRN (11:09)
[2022-06-13] MEDS: ATORVASTATIN 40 MG TABLET PO SCH (21:37)
[2022-06-14] MEDS: SODIUM CHLORIDE FLUSH 0.9% 10 ML SYRINGE IVP SCH ×3 (00:38→17:02)
[2022-06-14] MEDS: ACETAMINOPHEN 325 MG TABLET PO PRN ×3 (06:46→22:12)
[2022-06-14] MEDS: LEVOTHYROXINE 25 MCG TABLET PO SCH (06:47)
--- NOTE | 2022-06-14 07:30 | PROVIDER PROGRESS NOTE ---
Assessment/Plan - Problem List (1) Acute kidney injury superimposed on CKD Assessment/Plan: I reviewed all her labs. We are still checking her BMP occaionally ever since her BUN/creatinine increased many days ago. An iv was (re)started and she received NS daily. She is on no diuretics. Her hyperkalemic (K 5.1 on 06/12) resolved as her elevated BUN/creat improved yesterday, after iv fluids given. Plan: Cont to encourage po fluid intake and strict I's and O's were ordered to monitor Avoid diuretics Avoid nephrotoxins Follow BMP occaisonally (2) Metaphyseal fracture of bone of right lower extremity Assessment/Plan: Plan: Continue with pain management, orthopedic equipment to the knee that she can tolerate, and continue working with PT and OT Chronic or resolved problems: (3) Frequent falls at home Impression: Per pt's story she slipped and fell on some milk this time. Has a history of frequent falls, prior back pain, ankle pain. History of back and ankle surgery. Xrays obtained in ED were negative for fractures. PT noticed that she was only toe touching on the right leg, could not bear weight because her right knee hurt. She does not have aortic stenosis, orthostatic hypotension, arrhythmia, anemia that would cause these frequent falls. Plan: PT/OT working w her. She is ordered to have weight bearing as tolerated. (4) History of seizures Impression: Per EMR was on keppra several admissions ago. Has presented to ED with delirium, etiology uncertain, UTI, dehydration, post-ictal. Plan: continue keppra (5) Cognitive impairment Impression: Last recent hospitalization 1 week ago had a SLUMS test done by OT. Score 11/30, indicating severly cognitively impaired, staff was not sure if she was actively participating to make that an accurate score. The impression we got was that she was irritated with all of this and was throwing us out of the room and did not want to cooperate with questions. During this admission, she has agreed to go to correction placement and [facility]. Plan: Social work is working on this placement. It is our wait for placement that keeps her here. (6) Coronary artery disease Impression: hx of DC Plan: continue therestarted b-briseida and baby aspirin daily, restarted her statin therapy Qualifiers: Coronary Disease-Associated Artery/Lesion type: [place] artery [place] vs. transplanted heart: [place] heart Associated angina: without angina Qualified Code(s): I25.10 - Atherosclerotic heart disease of [place] coronary artery without angina pectoris (7) Chronic HFrEF (heart failure with reduced ejection fraction) Impression: EF 35-40% by ECHO in 12/2021 Plan: b-briseida restarted, ARB restarted, restart spironolactone, no volume overload. (8) Altered mental status Impression: Resolved Has had several hospitalizations in past month, etiology felt to be post-ictal, dehydration, infectious Qualifiers: Altered mental status type: disorientation Qualified Code(s): R41.0 - Disorientation, unspecified (9) Rhabdomyolysis Impression: Resolved CK improved after IV fluids, taking good po intake now Qualifiers: Rhabdomyolysis type: non-traumatic Qualified Code(s): M62.82 - Rhabdomyolysis (10) Hypothyroidism Impression: high TSH 7.51 this admission. It is from not being on Synthroid for several day s versus week Plan: Synthroid restarted at beginning of this adm, will check free T4, and TSH again in 4-6 weeks. Qualifiers: Hypothyroidism type: unspecified Qualified Code(s): E03.9 - Hypothyroidism, unspecified (11) HTN (hypertension) Impression: History of HTN, has been normotensive this admission Plan: monitor for HTN SBP>140 Qualifiers: Hypertension type: primary hypertension Qualified Code(s): I10 - Essential (primary) hypertension (12) Hx Multiple sclerosis As per Hx (13) Hyperlipidemia Impression: Plan: check HDL, LDL, triglycerides and ordered for the morning Qualifiers: Hyperlipidemia type: unspecified Qualified Code(s): E78.5 - Hyperlipidemia, unspecified (14) Hypernatremia Impression: Resolved (15) Hypokalemia Resolved. - Current Meds Current Meds: Current Medications Generic Name Dose Route Start Last Admin Trade Name Freq PRN Reason Stop Dose Admin Acetaminophen 650 mg 05/14/22 15:41 06/14/22 06:46 Acetaminophen 325 Mg Tablet PO 650 mg Q4HR PRN Administration Pain 1 to 4, or Fever Aspirin 81 mg 05/16/22 09:00 06/12/22 08:45 Aspirin Ec 81 Mg Tablet PO 81 mg DAILY JIN Administration Atorvastatin Calcium 40 mg 05/29/22 21:00 06/13/22 21:37 Atorvastatin 40 Mg Tablet PO 40 mg QPM JIN Administration Baclofen 30 mg 05/15/22 21:00 06/13/22 21:37 Baclofen 10 Mg Tablet PO 30 mg BID JIN Administration Carboxymethylcellulose 1 drops 05/21/22 17:59 05/21/22 19:07 Carboxymethylcellulose Ophth Drops EACHEYE 1 drops PRN PRN Administration Dry Eye Carvedilol 3.125 mg 06/12/22 09:24 06/13/22 21:42 Carvedilol 3.125 Mg Tablet PO 3.125 mg BID JIN Administration Cholecalciferol 50 mcg 05/21/22 12:00 06/13/22 09:00 Cholecalciferol 25 Mcg Tablet PO 50 mcg DAILY JIN Administration Diclofenac Sodium 75 mg 05/18/22 21:00 06/13/22 21:[address] 75 Mg Tablet PO 75 mg BID JIN Administration Docusate Sodium 250 - 500 mg 05/18/22 09:00 06/13/22 09:00 Docusate Sodium 250 Mg Capsule PO 250 mg DAILY JIN Administration Enoxaparin Sodium 40 mg 05/15/22 09:00 06/13/22 09:03 Enoxaparin 40 Mg/0.4 Ml Syringe SUBQ 40 mg DAILY JIN Administration Fluticasone Propionate 1 sprays 05/15/22 08:38 06/05/22 02:01 Fluticasone Nasal [facility] WILLIE 1 sprays BID PRN Administration Nasal Congestion Levetiracetam 500 mg 05/15/22 21:00 06/13/22 21:37 Levetiracetam 250 Mg Tablet PO 500 mg BID JIN Administration Levothyroxine Sodium 50 mcg 05/16/22 07:00 06/14/22 06:47 Levothyroxine 25 Mcg Tablet PO 50 mcg QDAC JIN Administration Losartan Potassium 12.5 mg 06/12/22 09:24 06/13/22 09:01 Losartan 50 Mg Tablet PO 12.5 mg DAILY JIN Administration Multi-Ingredient Ointment 1 applic 05/29/22 16:07 06/13/22 11:09 Zinc Oxide 20% Oint 30 Gm Tube TOP 1 applic PRN PRN Administration Skin Care Nystatin 1 applic 05/15/22 21:00 06/13/22 22:29 Nystatin Powder 15 Gm TOP 1 applic BID JIN Administration Oxycodone HCl 5 mg 05/14/22 15:41 06/13/22 22:29 Oxycodone 5 Mg Tablet PO 5 mg Q4HR PRN Administration Pain 5 to 7 Polyethylene Glycol 17 gm 05/17/22 12:00 06/13/22 08:53 Polyethylene Glycol 3350 17 Gm Packet PO Not Given DAILY JIN Senna 8.6 - 17.2 mg 05/18/22 09:00 06/13/22 09:01 Senna 8.6 Mg Tablet PO 8.6 mg DAILY JIN Administration Sodium Chloride 10 ml 06/06/22 17:15 06/12/22 08:38 Sodium Chloride Flush 0.9% 10 Ml Syringe IVP 10 ml PRN PRN Administration PER PHYSICIAN ORDER Sodium Chloride 10 ml 06/12/22 17:00 06/14/22 00:38 Sodium Chloride Flush 0.9% 10 Ml Syringe IVP 10 ml 0100,0900,1700 JIN Administration - Lab Result Fish Bone Diagrams: 06/14/22 07:44 06/14/22 07:44 Subjective - Subjective Patient Reports: Resting Comfortably Objective Vital Signs: Vital Signs - 24 hr 06/13/22 06/13/22 06/13/22 08:49 15:47 21:44 Temperature 36.4 C L 36.4 C L Heart Rate [ 67 72 66 Brachial] Respiratory 17 18 Rate Blood Pressure 120/54 L 101/62 111/66 [Right Brachial artery] O2 Saturation 93 99 Oxygen O2 Source [With Activity] Room air O2 Source [Without Activity] Room air O2 Source Room air I&O (Last 24 Hrs): Intake and Output Totals x24h 06/12/22 06/13/22 06/14/22 23:59 23:59 23:59 Intake Total 4017.290 3066 Output Total 1000 2500 1200 Balance 665.552 245 -1200 General: Alert HEENT: Mucous membr. moist/pink Neck: Supple Cardiovascular: No murmurs Respiratory: No respiratory distress Abdomen: Soft Extremities: No edema (mild R knee tenderness) - Results Results: Laboratory Results WBC 9.3 x10^3/uL (4.8-10.8) 06/13/22 05:02 RBC 3.63 10^6/uL (4.20-5.40) L 06/13/22 05:02 Hgb 10.2 g/dL (12.0-16.0) L 06/13/22 05:02 Hct 33.9 % (37.0-47.0) L 06/13/22 05:02 MCV 93.4 fL (81.0-99.0) 06/13/22 05:02 MCH 28.1 pg (27.0-31.0) 06/13/22 05:02 MCHC 30.1 g/dL (32.0-36.0) L 06/13/22 05:02 RDW 15.6 % (12.0-15.0) H 06/13/22 05:02 Plt Count 306 10^3/uL (130-450) 06/13/22 05:02 MPV 10.7 fL (7.9-10.8) 06/13/22 05:02 Neut # (Auto) Not Reportable 06/13/22 05:02 Lymph # (Auto) Not Reportable 06/13/22 05:02 [place] # (Auto) Not Reportable 06/13/22 05:02 Eos # (Auto) Not Reportable 06/13/22 05:02 Baso # (Auto) Not Reportable 06/13/22 05:02 Absolute Nucleated RBC Not Reportable 06/13/22 05:02 Total Counted 100 06/13/22 05:02 Band Neuts % (Manual) 0 % (0-10) 06/13/22 05:02 Abnorm Lymph % (Manual) 0 % 06/13/22 05:02 Nucleated RBC % Not Reportable 06/13/22 05:02 Neutrophils # (Manual) 5.1 10^3/uL (1.5-6.6) 06/13/22 05:02 Lymphocytes # (Manual) 2.5 10^3/uL (1.5-3.5) 06/13/22 05:02 Monocytes # (Manual) 0.7 10^3/uL (0.0-1.0) 06/13/22 05:02 Eosinophils # (Manual) 0.7 10^3/uL (0-0.7) 06/13/22 05:02 Basophils # (Manual) 0.2 10^3/uL (0-0.1) H 06/13/22 05:02 Differential Comment MANUAL DIFFERENTIAL 06/13/22 05:02 WBC Morphology NORMAL APPEARANCE (NORMAL) 06/13/22 05:02 Platelet Estimate NORMAL (130-450,000) (NORMAL) 06/13/22 05:02 Platelet Morphology NORMAL APPEARANCE (NORMAL) 06/13/22 05:02 RBC Morph Micro Appear NORMAL APPEARANCE (NORMAL) 06/13/22 05:02 Sodium 141 mmol/L (135-145) 06/13/22 05:02 Potassium 4.8 mmol/L (3.5-5.0) 06/13/22 05:02 Chloride 107 mmol/L (101-111) 06/13/22 05:02 Carbon Dioxide 24 mmol/L (21-32) 06/13/22 05:02 Anion Gap 10.0 (6-13) 06/13/22 05:02 BUN 29 mg/dL (6-20) H 06/13/22 05:02 Creatinine 1.2 mg/dL (0.4-1.0) H 06/13/22 05:02 Estimated GFR (MDRD) 45 (>89) L 06/13/22 05:02 Glucose 132 mg/dL (70-100) H 06/13/22 05:02 Lactic Acid 1.6 mmol/L (0.5-2.2) 05/14/22 11:58 Calcium 9.7 mg/dL (8.5-10.3) 06/13/22 05:02 Total Bilirubin 0.9 mg/dL (0.2-1.0) 05/14/22 11:58 AST 73 IU/L (10-42) H 05/14/22 11:58 ALT 28 IU/L (10-60) 05/14/22 11:58 Alkaline Phosphatase 120 IU/L (42-121) 05/14/22 11:58 Ammonia 12.4 umol/L (7-35) 05/14/22 11:58 Total Creatine Kinase 742 IU/L (22-269) H 05/18/22 04:47 C-Reactive Protein 11.3 mg/dL (0-1.0) H 05/15/22 04:15 B-Natriuretic Peptide 468 pg/mL (5-100) H 05/14/22 11:58 Total Protein 8.3 g/dL (6.7-8.2) H 05/14/22 11:58 Albumin 4.0 g/dL (3.2-5.5) 05/14/22 11:58 Globulin 4.3 g/dL (2.1-4.2) H 05/14/22 11:58 Albumin/Globulin Ratio 0.9 (1.0-2.2) L 05/14/22 11:58 Triglycerides 201 mg/dL (-149) H 05/29/22 04:40 Cholesterol 251 mg/dL (-199) H 05/29/22 04:40 LDL Cholesterol, Calc 177 mg/dL (-129) H 05/29/22 04:40 VLDL Cholesterol 40 mg/dL 05/29/22 04:40 HDL Cholesterol 34 mg/dL (60-) L 05/29/22 04:40 LDL/HDL Ratio 5.2 (<4.4) 05/29/22 04:40 Cholesterol/HDL Ratio 7.4 (<4.4) 05/29/22 04:40 Lipase 31 U/L (22-51) 05/14/22 11:58 TSH 4.51 uIU/mL (0.34-5.60) 05/30/22 10:09 Cortisol AM Sample 6.3 ug/dL 05/29/22 04:40 Urine Color YELLOW 05/14/22 12:40 Urine Clarity HAZY (CLEAR) 05/14/22 12:40 Urine pH 6.0 PH (5.0-7.5) 05/14/22 12:40 Ur Specific [place] 1.025 (1.002-1.030) 05/14/22 12:40 Urine Protein 30 mg/dL (NEGATIVE) H 05/14/22 12:40 Urine Glucose (UA) NEGATIVE mg/dL (NEGATIVE) 05/14/22 12:40 Urine Ketones TRACE mg/dL (NEGATIVE) 05/14/22 12:40 Urine Occult Blood LARGE (NEGATIVE) H 05/14/22 12:40 Urine Nitrite NEGATIVE (NEGATIVE) 05/14/22 12:40 Urine Bilirubin NEGATIVE (NEGATIVE) 05/14/22 12:40 Urine Urobilinogen 0.2 (NORMAL) E.U./dL (NORMAL) 05/14/22 12:40 Ur Leukocyte Esterase NEGATIVE (NEGATIVE) 05/14/22 12:40 Urine RBC 6-10 /HPF (0-5) H 05/14/22 12:40 Urine WBC 0-3 /HPF (0-5) 05/14/22 12:40 Ur Squamous Epith Cells MOD Squamous (<= Few) H 05/14/22 12:40 Urine Bacteria Few /HPF (None Seen) 05/14/22 12:40 Urine Casts 0-2 Fine Granular /LPF0-2 Hyaline Casts /LPF 05/14/22 12:40 Urine Casts 0-2 Fine Granular /LPF0-2 Hyaline Casts /LPF 05/14/22 12:40 Ur Microscopic Review INDICATED 05/14/22 12:40 Urine Culture Comments NOT INDICATED 05/14/22 12:40 Urine Opiates Screen NEGATIVE (NEGATIVE) 05/14/22 12:40 Ur Oxycodone Screen POSITIVE (NEGATIVE) H 05/14/22 12:40 Urine Methadone Screen NEGATIVE (NEGATIVE) 05/14/22 12:40 Ur Propoxyphene Screen NEGATIVE (NEGATIVE) 05/14/22 12:40 Ur Barbiturates Screen NEGATIVE (NEGATIVE) 05/14/22 12:40 Ur Tricyclics Screen NEGATIVE (NEGATIVE) 05/14/22 12:40 Ur Phencyclidine Scrn NEGATIVE (NEGATIVE) 05/14/22 12:40 Ur Amphetamine Screen NEGATIVE (NEGATIVE) 05/14/22 12:40 U Methamphetamines Scrn NEGATIVE (NEGATIVE) 05/14/22 12:40 U Benzodiazepines Scrn NEGATIVE (NEGATIVE) 05/14/22 12:40 Urine Cocaine Screen NEGATIVE (NEGATIVE) 05/14/22 12:40 U Cannabinoids Screen NEGATIVE (NEGATIVE) 05/14/22 12:40 Ethyl Alcohol < 5.0 mg/dL 05/14/22 11:58 MAC Interpretation Comment (.) 05/15/22 09:04 Anti-sm/PERSONAL CLOTHING LAUNDRY AIDE Abs <0.2 AI (0.0-0.9) 05/15/22 09:04 RAFAELA-1 Antibody <0.2 AI (0.0-0.9) 05/15/22 09:04 SS-A/Ro Antibody <0.2 AI (0.0-0.9) 05/15/22 09:04 SS-B/La Antibody 0.4 AI (0.0-0.9) 05/15/22 09:04 Sm (Triana) Antibody <0.2 AI (0.0-0.9) 05/15/22 09:04 PERSONAL CLOTHING LAUNDRY AIDE Antibody 0.5 AI (0.0-0.9) 05/15/22 09:04 Scl-70 Scleroderma Ab <0.2 AI (0.0-0.9) 05/15/22 09:04 Double Strand DNA Ab <1 IU/mL (0-9) 05/15/22 09:04 Ribosomal P Prot Ab <0.2 AI (0.0-0.9) 05/15/22 09:04 Chromatin Antibody <0.2 AI (0.0-0.9) 05/15/22 09:04 Centromere B Antibody <0.2 AI (0.0-0.9) 05/15/22 09:04 SARS-CoV-2 (PCR) NOT DETECTED 05/14/22 13:40 - Procedures Procedures: Procedures INSERTION OF INFUSION DEV INTO SUP VENA CAVA, PERC APPROACH (12/10/21)
[2022-06-14 07:56] LABS: BASOPHILS # (AUTO) 0.1 10^3/uL (0.0-0.1); BASOPHILS % (AUTO) 1.7 %; EOSINOPHILS % (AUTO) 0.1 %; HCT - HEMATOCRIT 34.7 % (37.0-47.0); HGB - HEMOGLOBIN 10.5 g/dL (12.0-16.0); LYMPHOCYTES # (AUTO) 2.4 10^3/uL (1.5-3.5); LYMPHOCYTES % (AUTO) 28.7 %; MEAN CORPUSCULAR HEMOGLOBIN 28.4 pg (27.0-31.0); MEAN CORPUSCULAR HGB CONC 30.3 g/dL (32.0-36.0); MEAN CORPUSCULAR VOLUME 93.8 fL (81.0-99.0); MEAN PLATELET VOLUME 10.4 fL (7.9-10.8); MONOCYTES % (AUTO) 11.4 %; NEUTROPHILS # (AUTO) 4.9 10^3/uL (1.5-6.6); NEUTROPHILS % (AUTO) 57.9 %; PLT - PLATELET COUNT 323 10^3/uL (130-450); RED CELL DISTRIBUTION WIDTH 15.6 % (12.0-15.0); WHITE BLOOD COUNT 8.4 x10^3/uL (4.8-10.8)
[2022-06-14 08:06] LABS: CALCIUM 9.7 mg/dL (8.5-10.3); CREATININE 1.1 mg/dL (0.4-1.0)
[2022-06-14] MEDS: BACLOFEN 10 MG TABLET PO SCH ×2 (08:09→21:50)
[2022-06-14] MEDS: LOSARTAN 50 MG TABLET PO SCH (08:09)
[2022-06-14] MEDS: ENOXAPARIN 40 MG/0.4 ML SYRINGE SUBQ SCH (08:11)
[2022-06-14] MEDS: SENNA 8.6 MG TABLET PO SCH (08:11)
[2022-06-14] MEDS: ASPIRIN EC 81 MG TABLET PO SCH (08:11)
[2022-06-14] MEDS: DOCUSATE SODIUM 250 MG CAPSULE PO SCH (08:11)
[2022-06-14] MEDS: carvediloL 3.125 MG TABLET PO SCH ×2 (08:12→21:50)
[2022-06-14] MEDS: levETIRAcetam 250 MG TABLET PO SCH ×2 (08:12→21:50)
[2022-06-14] MEDS: CHOLECALCIFEROL 25 MCG TABLET PO SCH (08:12)
[2022-06-14] MEDS: polyethylene glycoL 3350 17 GM PACKET PO SCH (08:13)
[2022-06-14] MEDS: NYSTATIN POWDER 15 GM TOP SCH ×2 (08:13→21:55)
[2022-06-14] MEDS: DICLOFENAC SODIUM DR 75 MG TABLET PO SCH ×2 (08:13→21:50)
[2022-06-14] MEDS: oxyCODONE 5 MG TABLET PO PRN (15:20)
--- NOTE | 2022-06-14 15:56 | PROVIDER PROGRESS NOTE ---
Assessment/Plan - Problem List (1) Acute kidney injury superimposed on CKD Assessment/Plan: I reviewed all her labs today. Her BUN/creat have improved further since yesterday, after iv fluids given. Strict I's and O's were ordered to monitor and ordered to take in 1500 cc/day but she only takes 700-1000 cc/day Plan: Will now try to encourage po fluid intake by ordering each pill to be taken separately with water sips/gulps Avoid nephrotoxins We will be checking her BMP occaionally ever since her BUN/creatinine increased many days ago. Remain off diuretics. (2) Metaphyseal fracture of bone of right lower extremity Assessment/Plan: Plan: Continue with pain management, orthopedic equipment to the knee that she can tolerate, and continue working with PT and OT Chronic or resolved problems: (3) Frequent falls at home Impression: Per pt's story she slipped and fell on some milk this time. Has a history of frequent falls, prior back pain, ankle pain. History of back and ankle surgery. Xrays obtained in ED were negative for fractures. PT noticed that she was only toe touching on the right leg, could not bear weight because her right knee hurt. She does not have aortic stenosis, orthostatic hypotension, arrhythmia, anemia that would cause these frequent falls. Plan: PT/OT working w her. She is ordered to have weight bearing as tolerated. (4) History of seizures Impression: Per EMR was on keppra several admissions ago. Has presented to ED with deliri um, etiology uncertain, UTI, dehydration, post-ictal. Plan: continue keppra (5) Cognitive impairment Impression: Last recent hospitalization 1 week ago had a SLUMS test done by OT. Score 11/30, indicating severly cognitively impaired, staff was not sure if she was actively participating to make that an accurate score. The impression we got was that she was irritated with all of this and was throwing us out of the room and did not want to cooperate with questions. 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 Plan: Social work is working on this placement. It is our wait for placement that keeps her here. (6) Coronary artery disease Impression: hx of [place] Plan: continue therestarted b-briseida and baby aspirin daily, restarted her statin therapy Qualifiers: Coronary Disease-Associated Artery/Lesion type: [place] artery [place] vs. transplanted heart: [place] heart Associated angina: without angina Qualified Code(s): I25.10 - Atherosclerotic heart disease of [place] coronary artery without angina pectoris (7) Chronic HFrEF (heart failure with reduced ejection fraction) Impression: EF 35-40% by ECHO in 12/2021 Plan: b-briseida restarted, ARB restarted, restart spironolactone, no volume overload. (8) Altered mental status Impression: Resolved Has had several hospitalizations in past month, etiology felt to be post-ictal, dehydration, infectious Qualifiers: Altered mental status type: disorientation Qualified Code(s): R41.0 - Disorientation, unspecified (9) Rhabdomyolysis Impression: Resolved CK improved after IV fluids, taking good po intake now Qualifiers: Rhabdomyolysis type: non-traumatic Qualified Code(s): M62.82 - Rhabdomyolysis (10) Hypothyroidism Impression: high TSH 7.51 this admission. It is from not being on Synthroid for several days versus week Plan: Synthroid restarted at beginning of this adm, will check free T4, and TSH again in 4-6 weeks. Qualifiers: Hypothyroidism type: unspecified Qualified Code(s): E03.9 - Hypothyroidism, unspecified (11) HTN (hypertension) Impression: History of HTN, has been normotensive this admission Plan: monitor for HTN SBP>140 Qualifiers: Hypertension type: primary hypertension Qualified Code(s): I10 - Essential (primary) hypertension (12) Hx Multiple sclerosis As per Hx (13) Hyperlipidemia Impression: Plan: check HDL, LDL, triglycerides and ordered for the morning Qualifiers: Hyperlipidemia type: unspecified Qualified Code(s): E78.5 - Hyperlipidemia, unspecified (14) Hypernatremia Impression: Resolved (15) Hypokalemia Resolved. - Current Meds Current Meds: Current Medications Generic Name Dose Route Start Last Admin Trade Name Freq PRN Reason Stop Dose Admin Acetaminophen 650 mg 05/14/22 15:41 06/14/22 11:11 Acetaminophen 325 Mg Tablet PO 650 mg Q4HR PRN Administration Pain 1 to 4, or Fever Aspirin 81 mg 05/16/22 09:00 06/14/22 08:11 Aspirin Ec 81 Mg Tablet PO 81 mg DAILY JIN Administration Atorvastatin Calcium 40 mg 05/29/22 21:00 06/13/22 21:37 Atorvastatin 40 Mg Tablet PO 40 mg QPM JIN Administration Baclofen 30 mg 05/15/22 21:00 06/14/22 08:09 Baclofen 10 Mg Tablet PO 30 mg BID JIN Administration Carboxymethylcellulose 1 drops 05/21/22 17:59 05/21/22 19:07 Carboxymethylcellulose Ophth Drops EACHEYE 1 drops PRN PRN Administration Dry Eye Carvedilol 3.125 mg 06/12/22 09:24 06/14/22 08:12 Carvedilol 3.125 Mg Tablet PO 3.125 mg BID JIN Administration Cholecalciferol 50 mcg 05/21/22 12:00 06/14/22 08:12 Cholecalciferol 25 Mcg Tablet PO 50 mcg DAILY JIN Administration Diclofenac Sodium 75 mg 05/18/22 21:00 06/14/22 08:[address] 75 Mg Tablet PO 75 mg BID JIN Administration Docusate Sodium 250 - 500 mg 05/18/22 09:00 06/14/22 08:11 Docusate Sodium 250 Mg Capsule PO 250 mg DAILY JIN Administration Enoxaparin Sodium 40 mg 05/15/22 09:00 06/14/22 08:11 Enoxaparin 40 Mg/0.4 Ml Syringe SUBQ 40 mg DAILY JIN Administration Fluticasone Propionate 1 sprays 05/15/22 08:38 06/05/22 02:01 Fluticasone Nasal [place] WILLIE 1 sprays BID PRN Administration Nasal Congestion Levetiracetam 500 mg 05/15/22 21:00 06/14/22 08:12 Levetiracetam 250 Mg Tablet PO 500 mg BID JIN Administration Levothyroxine Sodium 50 mcg 05/16/22 07:00 06/14/22 06:47 Levothyroxine 25 Mcg Tablet PO 50 mcg QDAC JIN Administration Losartan Potassium 12.5 mg 06/12/22 09:24 06/14/22 08:09 Losartan 50 Mg Tablet PO 12.5 mg DAILY JIN Administration Multi-Ingredient Ointment 1 applic 05/29/22 16:07 06/13/22 11:09 Zinc Oxide 20% Oint 30 Gm Tube TOP 1 applic PRN PRN Administration Skin Care Nystatin 1 applic 05/15/22 21:00 06/14/22 08:13 Nystatin Powder 15 Gm TOP 1 applic BID JIN Administration Oxycodone HCl 5 mg 05/14/22 15:41 06/14/22 15:20 Oxycodone 5 Mg Tablet PO 5 mg Q4HR PRN Administration Pain 5 to 7 Polyethylene Glycol 17 gm 05/17/22 12:00 06/14/22 08:13 Polyethylene Glycol 3350 17 Gm Packet PO Not Given DAILY JIN Senna 8.6 - 17.2 mg 05/18/22 09:00 06/14/22 08:11 Senna 8.6 Mg Tablet PO 8.6 mg DAILY JIN Administration Sodium Chloride 10 ml 06/06/22 17:15 06/12/22 08:38 Sodium Chloride Flush 0.9% 10 Ml Syringe IVP 10 ml PRN PRN Administration PER PHYSICIAN ORDER Sodium Chloride 10 ml 06/12/22 17:00 06/14/22 08:13 Sodium Chloride Flush 0.9% 10 Ml Syringe IVP 10 ml 0100,0900,1700 JIN Administration - Lab Result Fish Bone Diagrams: 06/14/22 07:44 06/14/22 07:44 - Additional Planning My Orders: My Active Orders 06/14/22 10:52 Miscellaenous Nursing Order [RC] QSHIFT Objective Vital Signs: Vital Signs - 24 hr 06/13/22 06/14/22 21:44 08:14 Temperature 36.4 C L Heart Rate [ 66 69 Brachial] Respiratory 16 Rate Blood Pressure 111/66 111/66 [Right Brachial artery] O2 Saturation 95 Oxygen O2 Source [With Activity] Room air O2 Source [Without Activity] Room air O2 Source Room air I&O (Last 24 Hrs): Intake and Output Totals x24h 06/12/22 06/13/22 06/14/22 23:59 23:59 23:59 Intake Total 7127.625 9456 245 Output Total 1000 2500 2100 Balance 120.749 -534 -7940 General: Alert HEENT: Mucous membr. moist/pink Neck: Supple Neuro: Alert Cardiovascular: No murmurs Respiratory: No respiratory distress Abdomen: Soft Extremities: Other (Mild R knee tenderness) - Results Results: Laboratory Results WBC 8.4 x10^3/uL (4.8-10.8) 06/14/22 07:44 RBC 3.70 10^6/uL (4.20-5.40) L 06/14/22 07:44 Hgb 10.5 g/dL (12.0-16.0) L 06/14/22 07:44 Hct 34.7 % (37.0-47.0) L 06/14/22 07:44 MCV 93.8 fL (81.0-99.0) 06/14/22 07:44 MCH 28.4 pg (27.0-31.0) 06/14/22 07:44 MCHC 30.3 g/dL (32.0-36.0) L 06/14/22 07:44 RDW 15.6 % (12.0-15.0) H 06/14/22 07:44 Plt Count 323 10^3/uL (130-450) 06/14/22 07:44 MPV 10.4 fL (7.9-10.8) 06/14/22 07:44 Neut # (Auto) 4.9 10^3/uL (1.5-6.6) 06/14/22 07:44 Lymph # (Auto) 2.4 10^3/uL (1.5-3.5) 06/14/22 07:44 [place] # (Auto) 1.0 10^3/uL (0.0-1.0) 06/14/22 07:44 Eos # (Auto) 0.0 10^3/uL (0.0-0.7) 06/14/22 07:44 Baso # (Auto) 0.1 10^3/uL (0.0-0.1) 06/14/22 07:44 Absolute Nucleated RBC 0.00 x10^3/uL 06/14/22 07:44 Total Counted 100 06/13/22 05:02 Band Neuts % (Manual) 0 % (0-10) 06/13/22 05:02 Abnorm Lymph % (Manual) 0 % 06/13/22 05:02 Nucleated RBC % 0.0 /100WBC 06/14/22 07:44 Neutrophils # (Manual) 5.1 10^3/uL (1.5-6.6) 06/13/22 05:02 Lymphocytes # (Manual) 2.5 10^3/uL (1.5-3.5) 06/13/22 05:02 Monocytes # (Manual) 0.7 10^3/uL (0.0-1.0) 06/13/22 05:02 Eosinophils # (Manual) 0.7 10^3/uL (0-0.7) 06/13/22 05:02 Basophils # (Manual) 0.2 10^3/uL (0-0.1) H 06/13/22 05:02 Differential Comment MANUAL DIFFERENTIAL 06/13/22 05:02 WBC Morphology NORMAL APPEARANCE (NORMAL) 06/13/22 05:02 Platelet Estimate NORMAL (130-450,000) (NORMAL) 06/13/22 05:02 Platelet Morphology NORMAL APPEARANCE (NORMAL) 06/13/22 05:02 RBC Morph Micro Appear NORMAL APPEARANCE (NORMAL) 06/13/22 05:02 Sodium 138 mmol/L (135-145) 06/14/22 07:44 Potassium 5.0 mmol/L (3.5-5.0) 06/14/22 07:44 Chloride 103 mmol/L (101-111) 06/14/22 07:44 Carbon Dioxide 25 mmol/L (21-32) 06/14/22 07:44 Anion Gap 10.0 (6-13) 06/14/22 07:44 BUN 24 mg/dL (6-20) H 06/14/22 07:44 Creatinine 1.1 mg/dL (0.4-1.0) H 06/14/22 07:44 Estimated GFR (MDRD) 50 (>89) L 06/14/22 07:44 Glucose 91 mg/dL (70-100) 06/14/22 07:44 Lactic Acid 1.6 mmol/L (0.5-2.2) 05/14/22 11:58 Calcium 9.7 mg/dL (8.5-10.3) 06/14/22 07:44 Total Bilirubin 0.9 mg/dL (0.2-1.0) 05/14/22 11:58 AST 73 IU/L (10-42) H 05/14/22 11:58 ALT 28 IU/L (10-60) 05/14/22 11:58 Alkaline Phosphatase 120 IU/L (42-121) 05/14/22 11:58 Ammonia 12.4 umol/L (7-35) 05/14/22 11:58 Total Creatine Kinase 742 IU/L (22-269) H 05/18/22 04:47 C-Reactive Protein 11.3 mg/dL (0-1.0) H 05/15/22 04:15 B-Natriuretic Peptide 468 pg/mL (5-100) H 05/14/22 11:58 Total Protein 8.3 g/dL (6.7-8.2) H 05/14/22 11:58 Albumin 4.0 g/dL (3.2-5.5) 05/14/22 11:58 Globulin 4.3 g/dL (2.1-4.2) H 05/14/22 11:58 Albumin/Globulin Ratio 0.9 (1.0-2.2) L 05/14/22 11:58 Triglycerides 201 mg/dL (-149) H 05/29/22 04:40 Cholesterol 251 mg/dL (-199) H 05/29/22 04:40 LDL Cholesterol, Calc 177 mg/dL (-129) H 05/29/22 04:40 VLDL Cholesterol 40 mg/dL 05/29/22 04:40 HDL Cholesterol 34 mg/dL (60-) L 05/29/22 04:40 LDL/HDL Ratio 5.2 (<4.4) 05/29/22 04:40 Cholesterol/HDL Ratio 7.4 (<4.4) 05/29/22 04:40 Lipase 31 U/L (22-51) 05/14/22 11:58 TSH 4.51 uIU/mL (0.34-5.60) 05/30/22 10:09 Cortisol AM Sample 6.3 ug/dL 05/29/22 04:40 Urine Color YELLOW 05/14/22 12:40 Urine Clarity HAZY (CLEAR) 05/14/22 12:40 Urine pH 6.0 PH (5.0-7.5) 05/14/22 12:40 Ur Specific [place] 1.025 (1.002-1.030) 05/14/22 12:40 Urine Protein 30 mg/dL (NEGATIVE) H 05/14/22 12:40 Urine Glucose (UA) NEGATIVE mg/dL (NEGATIVE) 05/14/22 12:40 Urine Ketones TRACE mg/dL (NEGATIVE) 05/14/22 12:40 Urine Occult Blood LARGE (NEGATIVE) H 05/14/22 12:40 Urine Nitrite NEGATIVE (NEGATIVE) 05/14/22 12:40 Urine Bilirubin NEGATIVE (NEGATIVE) 05/14/22 12:40 Urine Urobilinogen 0.2 (NORMAL) E.U./dL (NORMAL) 05/14/22 12:40 Ur Leukocyte Esterase NEGATIVE (NEGATIVE) 05/14/22 12:40 Urine RBC 6-10 /HPF (0-5) H 05/14/22 12:40 Urine WBC 0-3 /HPF (0-5) 05/14/22 12:40 Ur Squamous Epith Cells MOD Squamous (<= Few) H 05/14/22 12:40 Urine Bacteria Few /HPF (None Seen) 05/14/22 12:40 Urine Casts 0-2 Fine Granular /LPF0-2 Hyaline Casts /LPF 05/14/22 12:40 Urine Casts 0-2 Fine Granular /LPF0-2 Hyaline Casts /LPF 05/14/22 12:40 Ur Microscopic Review INDICATED 05/14/22 12:40 Urine Culture Comments NOT INDICATED 05/14/22 12:40 Urine Opiates Screen NEGATIVE (NEGATIVE) 05/14/22 12:40 Ur Oxycodone Screen POSITIVE (NEGATIVE) H 05/14/22 12:40 Urine Methadone Screen NEGATIVE (NEGATIVE) 05/14/22 12:40 Ur Propoxyphene Screen NEGATIVE (NEGATIVE) 05/14/22 12:40 Ur Barbiturates Screen NEGATIVE (NEGATIVE) 05/14/22 12:40 Ur Tricyclics Screen NEGATIVE (NEGATIVE) 05/14/22 12:40 Ur Phencyclidine Scrn NEGATIVE (NEGATIVE) 05/14/22 12:40 Ur Amphetamine Screen NEGATIVE (NEGATIVE) 05/14/22 12:40 U Methamphetamines Scrn NEGATIVE (NEGATIVE) 05/14/22 12:40 U Benzodiazepines Scrn NEGATIVE (NEGATIVE) 05/14/22 12:40 Urine Cocaine Screen NEGATIVE (NEGATIVE) 05/14/22 12:40 U Cannabinoids Screen NEGATIVE (NEGATIVE) 05/14/22 12:40 Ethyl Alcohol < 5.0 mg/dL 05/14/22 11:58 MAC Interpretation Comment (.) 05/15/22 09:04 Anti-sm/[employer] Abs <0.2 AI (0.0-0.9) 05/15/22 09:04 RAFAELA-1 Antibody <0.2 AI (0.0-0.9) 05/15/22 09:04 SS-A/Ro Antibody <0.2 AI (0.0-0.9) 05/15/22 09:04 SS-B/La Antibody 0.4 AI (0.0-0.9) 05/15/22 09:04 Sm (Triana) Antibody <0.2 AI (0.0-0.9) 05/15/22 09:04 [employer] Antibody 0.5 AI (0.0-0.9) 05/15/22 09:04 Scl-70 Scleroderma Ab <0.2 AI (0.0-0.9) 05/15/22 09:04 Double Strand DNA Ab <1 IU/mL (0-9) 05/15/22 09:04 Ribosomal P Prot Ab <0.2 AI (0.0-0.9) 05/15/22 09:04 Chromatin Antibody <0.2 AI (0.0-0.9) 05/15/22 09:04 Centromere B Antibody <0.2 AI (0.0-0.9) 05/15/22 09:04 SARS-CoV-2 (PCR) NOT DETECTED 05/14/22 13:40 - Procedures Procedures: Procedures INSERTION OF INFUSION DEV INTO SUP VENA CAVA, PERC APPROACH (12/10/21)
[2022-06-14] MEDS: ATORVASTATIN 40 MG TABLET PO SCH (21:50)
[2022-06-15] MEDS: SODIUM CHLORIDE FLUSH 0.9% 10 ML SYRINGE IVP SCH ×3 (01:00→14:52)
[2022-06-15] MEDS: oxyCODONE 5 MG TABLET PO PRN ×3 (01:12→17:22)
[2022-06-15] MEDS: LEVOTHYROXINE 25 MCG TABLET PO SCH (06:02)
[2022-06-15] MEDS: ACETAMINOPHEN 325 MG TABLET PO PRN ×3 (06:02→20:25)
[2022-06-15 07:21] LABS: CALCIUM 9.4 mg/dL (8.5-10.3); CREATININE 1.5 mg/dL (0.4-1.0); POTASSIUM 5.2 mmol/L (3.5-5.0)
[2022-06-15 07:26] LABS: BASOPHILS # (AUTO) 0.1 10^3/uL (0.0-0.1); HCT - HEMATOCRIT 34.1 % (37.0-47.0); HGB - HEMOGLOBIN 10.2 g/dL (12.0-16.0); LYMPHOCYTES # (AUTO) 2.9 10^3/uL (1.5-3.5); LYMPHOCYTES % (AUTO) 28.7 %; MEAN CORPUSCULAR HEMOGLOBIN 28.4 pg (27.0-31.0); MEAN CORPUSCULAR HGB CONC 29.9 g/dL (32.0-36.0); MEAN PLATELET VOLUME 11.5 fL (7.9-10.8); MONOCYTES # (AUTO) 0.8 10^3/uL (0.0-1.0); NEUTROPHILS # (AUTO) 6.4 10^3/uL (1.5-6.6); NEUTROPHILS % (AUTO) 62.2 %; PLT - PLATELET COUNT 202 10^3/uL (130-450); RED BLOOD COUNT 3.59 10^6/uL (4.20-5.40); RED CELL DISTRIBUTION WIDTH 15.9 % (12.0-15.0); WHITE BLOOD COUNT 10.2 x10^3/uL (4.8-10.8)
[2022-06-15] MEDS: levETIRAcetam 250 MG TABLET PO SCH ×2 (08:47→20:25)
[2022-06-15] MEDS: ASPIRIN EC 81 MG TABLET PO SCH (08:47)
[2022-06-15] MEDS: BACLOFEN 10 MG TABLET PO SCH ×2 (08:48→20:24)
[2022-06-15] MEDS: polyethylene glycoL 3350 17 GM PACKET PO SCH (08:49)
[2022-06-15] MEDS: LOSARTAN 50 MG TABLET PO SCH (08:49)
[2022-06-15] MEDS: DOCUSATE SODIUM 250 MG CAPSULE PO SCH (08:49)
[2022-06-15] MEDS: ENOXAPARIN 40 MG/0.4 ML SYRINGE SUBQ SCH (08:49)
[2022-06-15] MEDS: carvediloL 3.125 MG TABLET PO SCH ×2 (08:49→20:24)
[2022-06-15] MEDS: DICLOFENAC SODIUM DR 75 MG TABLET PO SCH ×2 (08:49→20:24)
[2022-06-15] MEDS: CHOLECALCIFEROL 25 MCG TABLET PO SCH (08:49)
[2022-06-15] MEDS: NYSTATIN POWDER 15 GM TOP SCH ×2 (08:49→20:25)
[2022-06-15] MEDS: SENNA 8.6 MG TABLET PO SCH (08:50)
[2022-06-15] MEDS: DEXTROSE 5% 1,000 ML IV SCH ×2 (09:43→21:17)
--- NOTE | 2022-06-15 14:00 | PROVIDER PROGRESS NOTE ---
Assessment/Plan - Problem List (1) Acute kidney injury superimposed on CKD Assessment/Plan: I reviewed all her labs, VS, and I's and O's today. In order to encourage po fluid intake, I ordered each pill to be taken separately with water sips/gulps Strict I's and O's were ordered to monitor and ordered to take in 1500 cc/day but she only took in 390 ml yesterday Today again her creatinine increased and her potassium has increased Plan: Will start hypotonic iv fluids Avoid nephrotoxins We will be checking her BMP daily Remain off diuretics. Nutrition to assist with better liquid intake, was discussed with Catia. (2) Metaphyseal fracture of bone of right lower extremity Assessment/Plan: Plan: Continue with pain management, orthopedic equipment to the knee that she can tolerate, and continue working with PT and OT Chronic or resolved problems: (3) Frequent falls at home Impression: Per pt's story she slipped and fell on some milk this time. Has a history of frequent falls, prior back pain, ankle pain. History of back and ankle surgery. Xrays obtained in ED were negative for fractures. PT noticed that she was only toe touching on the right leg, could not bear weight because her right knee hurt. She does not have aortic stenosis, orthostatic hypotension, arrhythmia, anemia that would cause these frequent falls. Plan: PT/OT working w her. She is ordered to have weight bearing as tolerated. (4) History of seizures Impression: Per EMR was on keppra several admissions ago. Has presented to ED with delirium, etiology uncertain, UTI, dehydration, post-ictal. Plan: continue keppra (5) Cognitive impairment Impression: Last recent hospitalization 1 week ago had a SLUMS test done by OT. Score 11/30, indicating severly cognitively impaired, staff was not sure if she was actively participating to make that an accurate score. The impression we got was that she was irritated with all of this and was throwing us out of the room and did not want to cooperate with questions. During this admission, she has agreed to go to intermediate placement and [facility]. Plan: Social work is working on this placement. It is our wait for placement that keeps her here. (6) Coronary artery disease Impression: hx of [place] Plan: continue therestarted b-briseida and baby aspirin daily, restarted her statin therapy Qualifiers: Coronary Disease-Associated Artery/Lesion type: [place] artery [place] vs. transplanted heart: [place] heart Associated angina: without angina Qualified Code(s): I25.10 - Atherosclerotic heart disease of [place] coronary artery without angina pectoris (7) Chronic HFrEF (heart failure with reduced ejection fraction) Impression: EF 35-40% by ECHO in 12/2021 Plan: b-briseida restarted, ARB restarted, restart spironolactone, no volume overload. (8) Altered mental status Impression: Resolved Has had several hospitalizations in past month, etiology felt to be post-ictal, dehydration, infectious Qualifiers: Altered mental status type: disorientation Qualified Code(s): R41.0 - Disorientation, unspecified (9) Rhabdomyolysis Impression: Resolved CK improved after IV fluids, taking good po intake now Qualifiers: Rhabdomyolysis type: non-traumatic Qualified Code(s): M62.82 - Rhabdomyolysis (10) Hypothyroidism Impression: high TSH 7.51 this admission. It is from not being on Synthroid for several days versus week Plan: Synthroid restarted at beginning of this adm, will check free T4, and TSH again in 4-6 weeks. Qualifiers: Hypothyroidism type: unspecified Qualified Code(s): E03.9 - Hypothyroidism, unspecified (11) HTN (hypertension) Impression: History of HTN, has been normotensive this admission Plan: monitor for HTN SBP>140 Qualifiers: Hypertension type: primary hypertension Qualified Code(s): I10 - Essential (primary) hypertension (12) Hx Multiple sclerosis As per Hx (13) Hyperlipidemia Impression: Plan: check HDL, LDL, triglycerides and ordered for the morning Qualifiers: Hyperlipidemia type: unspecified Qualified Code(s): E78.5 - Hyperlipidemia, unspecified (14) Hypernatremia Impression: Resolved (15) Hypokalemia Resolved. - Current Meds Current Meds: Current Medications Generic Name Dose Route Start Last Admin Trade Name Freq PRN Reason Stop Dose Admin Acetaminophen 650 mg 05/14/22 15:41 06/15/22 06:02 Acetaminophen 325 Mg Tablet PO 650 mg Q4HR PRN Administration Pain 1 to 4, or Fever Aspirin 81 mg 05/16/22 09:00 06/15/22 08:47 Aspirin Ec 81 Mg Tablet PO 81 mg DAILY JIN Administration Atorvastatin Calcium 40 mg 05/29/22 21:00 06/14/22 21:50 Atorvastatin 40 Mg Tablet PO 40 mg QPM JIN Administration Baclofen 30 mg 05/15/22 21:00 06/15/22 08:48 Baclofen 10 Mg Tablet PO 30 mg BID JIN Administration Carboxymethylcellulose 1 drops 05/21/22 17:59 05/21/22 19:07 Carboxymethylcellulose Ophth Drops EACHEYE 1 drops PRN PRN Administration Dry Eye Carvedilol 3.125 mg 06/12/22 09:24 06/15/22 08:49 Carvedilol 3.125 Mg Tablet PO 3.125 mg BID JIN Administration Cholecalciferol 50 mcg 05/21/22 12:00 06/15/22 08:49 Cholecalciferol 25 Mcg Tablet PO 50 mcg DAILY JIN Administration Diclofenac Sodium 75 mg 05/18/22 21:00 06/15/22 08:[address] 75 Mg Tablet PO 75 mg BID JIN Administration Docusate Sodium 250 - 500 mg 05/18/22 09:00 06/15/22 08:49 Docusate Sodium 250 Mg Capsule PO 250 mg DAILY JIN Administration Enoxaparin Sodium 40 mg 05/15/22 09:00 06/15/22 08:49 Enoxaparin 40 Mg/0.4 Ml Syringe SUBQ 40 mg DAILY JIN Administration Fluticasone Propionate 1 sprays 05/15/22 08:38 06/05/22 02:01 Fluticasone Nasal [place] WILLIE 1 sprays BID PRN Administration Nasal Congestion Dextrose 1,000 mls @ 83.333 mls/hr 06/15/22 08:00 06/15/22 09:43 D5w IV 83.333 mls/hr .Q12H JIN Administration Levetiracetam 500 mg 05/15/22 21:00 06/15/22 08:47 Levetiracetam 250 Mg Tablet PO 500 mg BID JIN Administration Levothyroxine Sodium 50 mcg 05/16/22 07:00 06/15/22 06:02 Levothyroxine 25 Mcg Tablet PO 50 mcg QDAC JIN Administration Losartan Potassium 12.5 mg 06/12/22 09:24 06/15/22 08:49 Losartan 50 Mg Tablet PO 12.5 mg DAILY JIN Administration Multi-Ingredient Ointment 1 applic 05/29/22 16:07 06/13/22 11:09 Zinc Oxide 20% Oint 30 Gm Tube TOP 1 applic PRN PRN Administration Skin Care Nystatin 1 applic 05/15/22 21:00 06/15/22 08:49 Nystatin Powder 15 Gm TOP 1 applic BID JIN Administration Oxycodone HCl 5 mg 05/14/22 15:41 06/15/22 08:59 Oxycodone 5 Mg Tablet PO 5 mg Q4HR PRN Administration Pain 5 to 7 Polyethylene Glycol 17 gm 05/17/22 12:00 06/15/22 08:49 Polyethylene Glycol 3350 17 Gm Packet PO Not Given DAILY JIN Senna 8.6 - 17.2 mg 05/18/22 09:00 06/15/22 08:50 Senna 8.6 Mg Tablet PO Not Given DAILY JIN Sodium Chloride 10 ml 06/06/22 17:15 06/12/22 08:38 Sodium Chloride Flush 0.9% 10 Ml Syringe IVP 10 ml PRN PRN Administration PER PHYSICIAN ORDER Sodium Chloride 10 ml 06/12/22 17:00 06/15/22 08:50 Sodium Chloride Flush 0.9% 10 Ml Syringe IVP 10 ml 0100,0900,1700 JIN Administration - Lab Result Fish Bone Diagrams: 06/15/22 07:06 06/15/22 07:06 - Additional Planning My Orders: My Active Orders 06/15/22 08:00 Dextrose 5% [D5w] 1,000 ml IV 83.333 mls/hr 06/16/22 05:00 BMP - BASIC METABOLIC PANEL [CHEM] DAILYLAB 06/17/22 05:00 BMP - BASIC METABOLIC PANEL [CHEM] DAILYLAB 06/18/22 05:00 BMP - BASIC METABOLIC PANEL [CHEM] DAILYLAB 06/19/22 05:00 BMP - BASIC METABOLIC PANEL [CHEM] DAILYLAB Subjective - Subjective Patient Reports: Resting Comfortably, Pain (when moved) Objective Vital Signs: Vital Signs - 24 hr 06/14/22 06/15/22 21:00 09:00 Temperature 36.6 C 36.4 C L Heart Rate [ 68 72 Brachial] Respiratory 18 18 Rate Blood Pressure 120/55 L 92/49 L [Right Brachial artery] O2 Saturation 96 100 Oxygen O2 Source [With Activity] Room air O2 Source [Without Activity] Room air O2 Source Room air I&O (Last 24 Hrs): Intake and Output Totals x24h 06/13/22 06/14/22 06/15/22 23:59 23:59 23:59 Intake Total 2255 370 200 Output Total 2500 3000 100 Balance -245 -2630 100 General: Alert HEENT: Mucous membr. moist/pink Neck: Supple Neuro: Alert, Non Focal Cardiovascular: No murmurs Respiratory: No respiratory distress Abdomen: Soft Extremities: No edema - Results Results: Laboratory Results WBC 10.2 x10^3/uL (4.8-10.8) 06/15/22 07:06 RBC 3.59 10^6/uL (4.20-5.40) L 06/15/22 07:06 Hgb 10.2 g/dL (12.0-16.0) L 06/15/22 07:06 Hct 34.1 % (37.0-47.0) L 06/15/22 07:06 MCV 95.0 fL (81.0-99.0) 06/15/22 07:06 MCH 28.4 pg (27.0-31.0) 06/15/22 07:06 MCHC 29.9 g/dL (32.0-36.0) L 06/15/22 07:06 RDW 15.9 % (12.0-15.0) H 06/15/22 07:06 Plt Count 202 10^3/uL (130-450) 06/15/22 07:06 MPV 11.5 fL (7.9-10.8) H 06/15/22 07:06 Neut # (Auto) 6.4 10^3/uL (1.5-6.6) 06/15/22 07:06 Lymph # (Auto) 2.9 10^3/uL (1.5-3.5) 06/15/22 07:06 [place] # (Auto) 0.8 10^3/uL (0.0-1.0) 06/15/22 07:06 Eos # (Auto) 0.0 10^3/uL (0.0-0.7) 06/15/22 07:06 Baso # (Auto) 0.1 10^3/uL (0.0-0.1) 06/15/22 07:06 Absolute Nucleated RBC 0.00 x10^3/uL 06/15/22 07:06 Total Counted 100 06/13/22 05:02 Band Neuts % (Manual) 0 % (0-10) 06/13/22 05:02 Abnorm Lymph % (Manual) 0 % 06/13/22 05:02 Nucleated RBC % 0.0 /100WBC 06/15/22 07:06 Neutrophils # (Manual) 5.1 10^3/uL (1.5-6.6) 06/13/22 05:02 Lymphocytes # (Manual) 2.5 10^3/uL (1.5-3.5) 06/13/22 05:02 Monocytes # (Manual) 0.7 10^3/uL (0.0-1.0) 06/13/22 05:02 Eosinophils # (Manual) 0.7 10^3/uL (0-0.7) 06/13/22 05:02 Basophils # (Manual) 0.2 10^3/uL (0-0.1) H 06/13/22 05:02 Differential Comment MANUAL DIFFERENTIAL 06/13/22 05:02 WBC Morphology NORMAL APPEARANCE (NORMAL) 06/13/22 05:02 Platelet Estimate NORMAL (130-450,000) (NORMAL) 06/13/22 05:02 Platelet Morphology NORMAL APPEARANCE (NORMAL) 06/13/22 05:02 RBC Morph Micro Appear NORMAL APPEARANCE (NORMAL) 06/13/22 05:02 Sodium 137 mmol/L (135-145) 06/15/22 07:06 Potassium 5.2 mmol/L (3.5-5.0) H 06/15/22 07:06 Chloride 104 mmol/L (101-111) 06/15/22 07:06 Carbon Dioxide 23 mmol/L (21-32) 06/15/22 07:06 Anion Gap 10.0 (6-13) 06/15/22 07:06 BUN 32 mg/dL (6-20) H 06/15/22 07:06 Creatinine 1.5 mg/dL (0.4-1.0) H 06/15/22 07:06 Estimated GFR (MDRD) 35 (>89) L 06/15/22 07:06 Glucose 91 mg/dL (70-100) 06/15/22 07:06 Lactic Acid 1.6 mmol/L (0.5-2.2) 05/14/22 11:58 Calcium 9.4 mg/dL (8.5-10.3) 06/15/22 07:06 Total Bilirubin 0.9 mg/dL (0.2-1.0) 05/14/22 11:58 AST 73 IU/L (10-42) H 05/14/22 11:58 ALT 28 IU/L (10-60) 05/14/22 11:58 Alkaline Phosphatase 120 IU/L (42-121) 05/14/22 11:58 Ammonia 12.4 umol/L (7-35) 05/14/22 11:58 Total Creatine Kinase 742 IU/L (22-269) H 05/18/22 04:47 C-Reactive Protein 11.3 mg/dL (0-1.0) H 05/15/22 04:15 B-Natriuretic Peptide 468 pg/mL (5-100) H 05/14/22 11:58 Total Protein 8.3 g/dL (6.7-8.2) H 05/14/22 11:58 Albumin 4.0 g/dL (3.2-5.5) 05/14/22 11:58 Globulin 4.3 g/dL (2.1-4.2) H 05/14/22 11:58 Albumin/Globulin Ratio 0.9 (1.0-2.2) L 05/14/22 11:58 Triglycerides 201 mg/dL (-149) H 05/29/22 04:40 Cholesterol 251 mg/dL (-199) H 05/29/22 04:40 LDL Cholesterol, Calc 177 mg/dL (-129) H 05/29/22 04:40 VLDL Cholesterol 40 mg/dL 05/29/22 04:40 HDL Cholesterol 34 mg/dL (60-) L 05/29/22 04:40 LDL/HDL Ratio 5.2 (<4.4) 05/29/22 04:40 Cholesterol/HDL Ratio 7.4 (<4.4) 05/29/22 04:40 Lipase 31 U/L (22-51) 05/14/22 11:58 TSH 4.51 uIU/mL (0.34-5.60) 05/30/22 10:09 Cortisol AM Sample 6.3 ug/dL 05/29/22 04:40 Urine Color YELLOW 05/14/22 12:40 Urine Clarity HAZY (CLEAR) 05/14/22 12:40 Urine pH 6.0 PH (5.0-7.5) 05/14/22 12:40 Ur Specific [place] 1.025 (1.002-1.030) 05/14/22 12:40 Urine Protein 30 mg/dL (NEGATIVE) H 05/14/22 12:40 Urine Glucose (UA) NEGATIVE mg/dL (NEGATIVE) 05/14/22 12:40 Urine Ketones TRACE mg/dL (NEGATIVE) 05/14/22 12:40 Urine Occult Blood LARGE (NEGATIVE) H 05/14/22 12:40 Urine Nitrite NEGATIVE (NEGATIVE) 05/14/22 12:40 Urine Bilirubin NEGATIVE (NEGATIVE) 05/14/22 12:40 Urine Urobilinogen 0.2 (NORMAL) E.U./dL (NORMAL) 05/14/22 12:40 Ur Leukocyte Esterase NEGATIVE (NEGATIVE) 05/14/22 12:40 Urine RBC 6-10 /HPF (0-5) H 05/14/22 12:40 Urine WBC 0-3 /HPF (0-5) 05/14/22 12:40 Ur Squamous Epith Cells MOD Squamous (<= Few) H 05/14/22 12:40 Urine Bacteria Few /HPF (None Seen) 05/14/22 12:40 Urine Casts 0-2 Fine Granular /LPF0-2 Hyaline Casts /LPF 05/14/22 12:40 Urine Casts 0-2 Fine Granular /LPF0-2 Hyaline Casts /LPF 05/14/22 12:40 Ur Microscopic Review INDICATED 05/14/22 12:40 Urine Culture Comments NOT INDICATED 05/14/22 12:40 Urine Opiates Screen NEGATIVE (NEGATIVE) 05/14/22 12:40 Ur Oxycodone Screen POSITIVE (NEGATIVE) H 05/14/22 12:40 Urine Methadone Screen NEGATIVE (NEGATIVE) 05/14/22 12:40 Ur Propoxyphene Screen NEGATIVE (NEGATIVE) 05/14/22 12:40 Ur Barbiturates Screen NEGATIVE (NEGATIVE) 05/14/22 12:40 Ur Tricyclics Screen NEGATIVE (NEGATIVE) 05/14/22 12:40 Ur Phencyclidine Scrn NEGATIVE (NEGATIVE) 05/14/22 12:40 Ur Amphetamine Screen NEGATIVE (NEGATIVE) 05/14/22 12:40 U Methamphetamines Scrn NEGATIVE (NEGATIVE) 05/14/22 12:40 U Benzodiazepines Scrn NEGATIVE (NEGATIVE) 05/14/22 12:40 Urine Cocaine Screen NEGATIVE (NEGATIVE) 05/14/22 12:40 U Cannabinoids Screen NEGATIVE (NEGATIVE) 05/14/22 12:40 Ethyl Alcohol < 5.0 mg/dL 05/14/22 11:58 MAC Interpretation Comment (.) 05/15/22 09:04 Anti-sm/ROTARY MACHINE OPERATOR Abs <0.2 AI (0.0-0.9) 05/15/22 09:04 RAFAELA-1 Antibody <0.2 AI (0.0-0.9) 05/15/22 09:04 SS-A/Ro Antibody <0.2 AI (0.0-0.9) 05/15/22 09:04 SS-B/La Antibody 0.4 AI (0.0-0.9) 05/15/22 09:04 Sm (Triana) Antibody <0.2 AI (0.0-0.9) 05/15/22 09:04 ROTARY MACHINE OPERATOR Antibody 0.5 AI (0.0-0.9) 05/15/22 09:04 Scl-70 Scleroderma Ab <0.2 AI (0.0-0.9) 05/15/22 09:04 Double Strand DNA Ab <1 IU/mL (0-9) 05/15/22 09:04 Ribosomal P Prot Ab <0.2 AI (0.0-0.9) 05/15/22 09:04 Chromatin Antibody <0.2 AI (0.0-0.9) 05/15/22 09:04 Centromere B Antibody <0.2 AI (0.0-0.9) 05/15/22 09:04 SARS-CoV-2 (PCR) NOT DETECTED 05/14/22 13:40 - Procedures Procedures: Procedures INSERTION OF INFUSION DEV INTO SUP VENA CAVA, PERC APPROACH (12/10/21)
[2022-06-15] MEDS: ATORVASTATIN 40 MG TABLET PO SCH (20:24)
[2022-06-16] MEDS: SODIUM CHLORIDE FLUSH 0.9% 10 ML SYRINGE IVP SCH ×3 (01:00→16:02)
[2022-06-16] MEDS: ACETAMINOPHEN 325 MG TABLET PO PRN ×3 (05:34→21:51)
[2022-06-16] MEDS: LEVOTHYROXINE 25 MCG TABLET PO SCH (05:38)
[2022-06-16 07:50] LABS: BASOPHILS # (AUTO) 0.2 10^3/uL (0.0-0.1); BASOPHILS % (AUTO) 1.7 %; EOSINOPHILS % (AUTO) 0.2 %; HCT - HEMATOCRIT 33.2 % (37.0-47.0); HGB - HEMOGLOBIN 10.3 g/dL (12.0-16.0); LYMPHOCYTES # (AUTO) 2.2 10^3/uL (1.5-3.5); LYMPHOCYTES % (AUTO) 24.7 %; MEAN CORPUSCULAR HEMOGLOBIN 28.3 pg (27.0-31.0); MEAN CORPUSCULAR VOLUME 91.2 fL (81.0-99.0); MEAN PLATELET VOLUME 10.5 fL (7.9-10.8); MONOCYTES # (AUTO) 0.9 10^3/uL (0.0-1.0); MONOCYTES % (AUTO) 10.4 %; NEUTROPHILS # (AUTO) 5.5 10^3/uL (1.5-6.6); NEUTROPHILS % (AUTO) 62.8 %; PLT - PLATELET COUNT 312 10^3/uL (130-450); RED BLOOD COUNT 3.64 10^6/uL (4.20-5.40); RED CELL DISTRIBUTION WIDTH 15.2 % (12.0-15.0); WHITE BLOOD COUNT 8.8 x10^3/uL (4.8-10.8)
[2022-06-16 08:03] LABS: CALCIUM 9.6 mg/dL (8.5-10.3); CREATININE 1.2 mg/dL (0.4-1.0); POTASSIUM 4.6 mmol/L (3.5-5.0)
[2022-06-16] MEDS: DEXTROSE 5% 1,000 ML IV SCH (09:09)
[2022-06-16] MEDS: polyethylene glycoL 3350 17 GM PACKET PO SCH (09:19)
[2022-06-16] MEDS: ENOXAPARIN 40 MG/0.4 ML SYRINGE SUBQ SCH (09:20)
[2022-06-16] MEDS: LOSARTAN 50 MG TABLET PO SCH (09:20)
[2022-06-16] MEDS: DICLOFENAC SODIUM DR 75 MG TABLET PO SCH ×2 (09:20→20:13)
[2022-06-16] MEDS: carvediloL 3.125 MG TABLET PO SCH ×2 (09:21→20:16)
[2022-06-16] MEDS: ASPIRIN EC 81 MG TABLET PO SCH (09:21)
[2022-06-16] MEDS: oxyCODONE 5 MG TABLET PO PRN ×3 (09:21→18:59)
[2022-06-16] MEDS: CHOLECALCIFEROL 25 MCG TABLET PO SCH (09:21)
[2022-06-16] MEDS: SENNA 8.6 MG TABLET PO SCH (09:21)
[2022-06-16] MEDS: levETIRAcetam 250 MG TABLET PO SCH ×2 (09:21→20:13)
[2022-06-16] MEDS: BACLOFEN 10 MG TABLET PO SCH ×2 (09:21→20:13)
[2022-06-16] MEDS: NYSTATIN POWDER 15 GM TOP SCH ×2 (09:28→20:14)
[2022-06-16] MEDS: DOCUSATE SODIUM 250 MG CAPSULE PO SCH (09:28)
--- NOTE | 2022-06-16 17:50 | PROVIDER PROGRESS NOTE ---
Assessment/Plan - Problem List (1) Acute kidney injury superimposed on CKD Assessment/Plan: I reviewed all her labs, VS, and I's and O's today. In order to encourage po fluid intake, I ordered each pill to be taken separately with water sips/gulps Strict I's and O's were ordered to monitor and ordered to take in 1500 cc/day Plan: Continue iv fluids Avoid nephrotoxins We will be checking her BMP daily Remain off diuretics. Nutrition to assist with better liquid intake, was discussed with Catia. (2) Metaphyseal fracture of bone of right lower extremity Assessment/Plan: Plan: Continue with pain management, orthopedic equipment to the knee that she can tolerate, and continue working with PT and OT Chronic or resolved problems: (3) Frequent falls at home Impression: Per pt's story she slipped and fell on some milk this time. Has a history of frequent falls, prior back pain, ankle pain. History of back and ankle surgery. Xrays obtained in ED were negative for fractures. PT noticed that she was only toe touching on the right leg, could not bear weight because her right knee hurt. She does not have aortic stenosis, orthostatic hypotension, arrhythmia, anemia that would cause these frequent falls. Plan: PT/OT working w her. She is ordered to have weight bearing as tolerated. (4) History of seizures Impression: Per EMR was on keppra several admissions ago. Has presented to ED with delirium, etiology uncertain, UTI, dehydration, post-ictal. Plan: continue keppra (5) Cognitive impairment Impression: Last recent hospitalization 1 week ago had a SLUMS test done by OT. Score 11/30, indicating severly cognitively impaired, staff was not sure if she was actively participating to make that an accurate score. The impression we got was that she was irritated with all of this and was throwing us out of the room and did not want to cooperate with questions. During this admission, she has agreed to go to [facility] operator placement and [facility]. Plan: Social work is working on this placement. It is our wait for placement that keeps her here. (6) Coronary artery disease Impression: hx of MT Plan: continue therestarted b-briseida and baby aspirin daily, restarted her statin therapy Qualifiers: Coronary Disease-Associated Artery/Lesion type: ute artery [place] vs. transplanted heart: ute heart Associated angina: without angina Qualified Code(s): I25.10 - Atherosclerotic heart disease of ute coronary artery without angina pectoris (7) Chronic HFrEF (heart failure with reduced ejection fraction) Impression: EF 35-40% by ECHO in 12/2021 Plan: b-briseida restarted, ARB restarted, restart spironolactone, no volume overload. (8) Altered mental status Impression: Resolved Has had several hospitalizations in past month, etiology felt to be post-ictal, dehydration, infectious Qualifiers: Altered mental status type: disorientation Qualified Code(s): R41.0 - Disorientation, unspecified (9) Rhabdomyolysis Impression: Resolved CK improved after IV fluids, taking good po intake now Qualifiers: Rhabdomyolysis type: non-traumatic Qualified Code(s): M62.82 - Rhabdomyolysis (10) Hypothyroidism Impression: high TSH 7.51 this admission. It is from not being on Synthroid for several days versus week Plan: Synthroid restarted at beginning of this adm, will check free T4, and TSH again in 4-6 weeks. Qualifiers: Hypothyroidism type: unspecified Qualified Code(s): E03.9 - Hypothyroidism, unspecified (11) HTN (hypertension) Impression: History of HTN, has been normotensive this admission Plan: monitor for HTN SBP>140 Qualifiers: Hypertension type: primary hypertension Qualified Code(s): I10 - Essential (primary) hypertension (12) Hx Multiple sclerosis As per Hx (13) Hyperlipidemia Impression: Plan: check HDL, LDL, triglycerides and ordered for the morning Qualifiers: Hyperlipidemia type: unspecified Qualified Code(s): E78.5 - Hyperlipidemia, unspecified (14) Hypernatremia Impression: Resolved (15) Hypokalemia Resolved. - Current Meds Current Meds: Current Medications Generic Name Dose Route Start Last Admin Trade Name Freq PRN Reason Stop Dose Admin Acetaminophen 650 mg 05/14/22 15:41 06/16/22 12:37 Acetaminophen 325 Mg Tablet PO 650 mg Q4HR PRN Administration Pain 1 to 4, or Fever Aspirin 81 mg 05/16/22 09:00 06/16/22 09:21 Aspirin Ec 81 Mg Tablet PO 81 mg DAILY JIN Administration Atorvastatin Calcium 40 mg 05/29/22 21:00 06/15/22 20:24 Atorvastatin 40 Mg Tablet PO 40 mg QPM JIN Administration Baclofen 30 mg 05/15/22 21:00 06/16/22 09:21 Baclofen 10 Mg Tablet PO 30 mg BID JIN Administration Carboxymethylcellulose 1 drops 05/21/22 17:59 05/21/22 19:07 Carboxymethylcellulose Ophth Drops EACHEYE 1 drops PRN PRN Administration Dry Eye Carvedilol 3.125 mg 06/12/22 09:24 06/16/22 09:21 Carvedilol 3.125 Mg Tablet PO 3.125 mg BID JIN Administration Cholecalciferol 50 mcg 05/21/22 12:00 06/16/22 09:21 Cholecalciferol 25 Mcg Tablet PO 50 mcg DAILY JIN Administration Diclofenac Sodium 75 mg 05/18/22 21:00 06/16/22 09:[address] 75 Mg Tablet PO 75 mg BID JIN Administration Docusate Sodium 250 - 500 mg 05/18/22 09:00 06/16/22 09:28 Docusate Sodium 250 Mg Capsule PO Not Given DAILY JIN Enoxaparin Sodium 40 mg 05/15/22 09:00 06/16/22 09:20 Enoxaparin 40 Mg/0.4 Ml Syringe SUBQ 40 mg DAILY JIN Administration Fluticasone Propionate 1 sprays 05/15/22 08:38 06/05/22 02:01 Fluticasone Nasal [place] WILLIE 1 sprays BID PRN Administration Nasal Congestion Dextrose 1,000 mls @ 83.333 mls/hr 06/15/22 08:00 06/16/22 17:10 D5w IV 83.3 mls/hr .Q12H JIN Infusion Levetiracetam 500 mg 05/15/22 21:00 06/16/22 09:21 Levetiracetam 250 Mg Tablet PO 500 mg BID JIN Administration Levothyroxine Sodium 50 mcg 05/16/22 07:00 06/16/22 05:38 Levothyroxine 25 Mcg Tablet PO 50 mcg QDAC JIN Administration Losartan Potassium 12.5 mg 06/12/22 09:24 06/16/22 09:20 Losartan 50 Mg Tablet PO 12.5 mg DAILY JIN Administration Multi-Ingredient Ointment 1 applic 05/29/22 16:07 06/13/22 11:09 Zinc Oxide 20% Oint 30 Gm Tube TOP 1 applic PRN PRN Administration Skin Care Nystatin 1 applic 05/15/22 21:00 06/16/22 09:28 Nystatin Powder 15 Gm TOP 1 applic BID JIN Administration Oxycodone HCl 5 mg 05/14/22 15:41 06/16/22 13:21 Oxycodone 5 Mg Tablet PO 5 mg Q4HR PRN Administration Pain 5 to 7 Polyethylene Glycol 17 gm 05/17/22 12:00 06/16/22 09:19 Polyethylene Glycol 3350 17 Gm Packet PO 17 gm DAILY JIN Administration Senna 8.6 - 17.2 mg 05/18/22 09:00 06/16/22 09:21 Senna 8.6 Mg Tablet PO 8.6 mg DAILY JIN Administration Sodium Chloride 10 ml 06/06/22 17:15 06/12/22 08:38 Sodium Chloride Flush 0.9% 10 Ml Syringe IVP 10 ml PRN PRN Administration PER PHYSICIAN ORDER Sodium Chloride 10 ml 06/12/22 17:00 06/16/22 16:02 Sodium Chloride Flush 0.9% 10 Ml Syringe IVP 10 ml 0100,0900,1700 JIN Administration - Lab Result Fish Bone Diagrams: 06/16/22 07:45 06/17/22 06:38 - Additional Planning My Orders: My Active Orders 06/17/22 05:00 BMP - BASIC METABOLIC PANEL [CHEM] DAILYLAB 06/18/22 05:00 BMP - BASIC METABOLIC PANEL [CHEM] DAILYLAB 06/19/22 05:00 BMP - BASIC METABOLIC PANEL [CHEM] DAILYLAB Subjective - Subjective Patient Reports: Resting Comfortably Objective Vital Signs: Vital Signs - 24 hr 06/15/22 06/16/22 20:26 09:00 Temperature 36.2 C L 36.3 C L Heart Rate [ 73 69 Brachial] Respiratory 18 14 Rate Blood Pressure 113/58 L 142/68 H [Right Brachial artery] O2 Saturation 97 98 Oxygen O2 Source [With Activity] Room air O2 Source [Without Activity] Room air O2 Source Room air I&O (Last 24 Hrs): Intake and Output Totals x24h 06/14/22 06/15/22 06/16/22 23:59 23:59 23:59 Intake Total 370 9398.995 6799.939 Output Total 3000 1200 1700 Balance -2630 283.885 941.939 General: Alert, Oriented x3 HEENT: Mucous membr. moist/pink, Other (edentulous) Neck: Supple Neuro: Alert, Non Focal Respiratory: No respiratory distress Abdomen: Soft Extremities: No edema - Results Results: Laboratory Results WBC 8.8 x10^3/uL (4.8-10.8) 06/16/22 07:45 RBC 3.64 10^6/uL (4.20-5.40) L 06/16/22 07:45 Hgb 10.3 g/dL (12.0-16.0) L 06/16/22 07:45 Hct 33.2 % (37.0-47.0) L 06/16/22 07:45 MCV 91.2 fL (81.0-99.0) 06/16/22 07:45 MCH 28.3 pg (27.0-31.0) 06/16/22 07:45 MCHC 31.0 g/dL (32.0-36.0) L 06/16/22 07:45 RDW 15.2 % (12.0-15.0) H 06/16/22 07:45 Plt Count 312 10^3/uL (130-450) 06/16/22 07:45 MPV 10.5 fL (7.9-10.8) 06/16/22 07:45 Neut # (Auto) 5.5 10^3/uL (1.5-6.6) 06/16/22 07:45 Lymph # (Auto) 2.2 10^3/uL (1.5-3.5) 06/16/22 07:45 [place] # (Auto) 0.9 10^3/uL (0.0-1.0) 06/16/22 07:45 Eos # (Auto) 0.0 10^3/uL (0.0-0.7) 06/16/22 07:45 Baso # (Auto) 0.2 10^3/uL (0.0-0.1) H 06/16/22 07:45 Absolute Nucleated RBC 0.00 x10^3/uL 06/16/22 07:45 Total Counted 100 06/13/22 05:02 Band Neuts % (Manual) 0 % (0-10) 06/13/22 05:02 Abnorm Lymph % (Manual) 0 % 06/13/22 05:02 Nucleated RBC % 0.0 /100WBC 06/16/22 07:45 Neutrophils # (Manual) 5.1 10^3/uL (1.5-6.6) 06/13/22 05:02 Lymphocytes # (Manual) 2.5 10^3/uL (1.5-3.5) 06/13/22 05:02 Monocytes # (Manual) 0.7 10^3/uL (0.0-1.0) 06/13/22 05:02 Eosinophils # (Manual) 0.7 10^3/uL (0-0.7) 06/13/22 05:02 Basophils # (Manual) 0.2 10^3/uL (0-0.1) H 06/13/22 05:02 Differential Comment MANUAL DIFFERENTIAL 06/13/22 05:02 WBC Morphology NORMAL APPEARANCE (NORMAL) 06/13/22 05:02 Platelet Estimate NORMAL (130-450,000) (NORMAL) 06/13/22 05:02 Platelet Morphology NORMAL APPEARANCE (NORMAL) 06/13/22 05:02 RBC Morph Micro Appear NORMAL APPEARANCE (NORMAL) 06/13/22 05:02 Sodium 134 mmol/L (135-145) L 06/16/22 07:45 Potassium 4.6 mmol/L (3.5-5.0) 06/16/22 07:45 Chloride 100 mmol/L (101-111) L 06/16/22 07:45 Carbon Dioxide 23 mmol/L (21-32) 06/16/22 07:45 Anion Gap 11.0 (6-13) 06/16/22 07:45 BUN 31 mg/dL (6-20) H 06/16/22 07:45 Creatinine 1.2 mg/dL (0.4-1.0) H 06/16/22 07:45 Estimated GFR (MDRD) 45 (>89) L 06/16/22 07:45 Glucose 90 mg/dL (70-100) 06/16/22 07:45 Lactic Acid 1.6 mmol/L (0.5-2.2) 05/14/22 11:58 Calcium 9.6 mg/dL (8.5-10.3) 06/16/22 07:45 Total Bilirubin 0.9 mg/dL (0.2-1.0) 05/14/22 11:58 AST 73 IU/L (10-42) H 05/14/22 11:58 ALT 28 IU/L (10-60) 05/14/22 11:58 Alkaline Phosphatase 120 IU/L (42-121) 05/14/22 11:58 Ammonia 12.4 umol/L (7-35) 05/14/22 11:58 Total Creatine Kinase 742 IU/L (22-269) H 05/18/22 04:47 C-Reactive Protein 11.3 mg/dL (0-1.0) H 05/15/22 04:15 B-Natriuretic Peptide 468 pg/mL (5-100) H 05/14/22 11:58 Total Protein 8.3 g/dL (6.7-8.2) H 05/14/22 11:58 Albumin 4.0 g/dL (3.2-5.5) 05/14/22 11:58 Globulin 4.3 g/dL (2.1-4.2) H 05/14/22 11:58 Albumin/Globulin Ratio 0.9 (1.0-2.2) L 05/14/22 11:58 Triglycerides 201 mg/dL (-149) H 05/29/22 04:40 Cholesterol 251 mg/dL (-199) H 05/29/22 04:40 LDL Cholesterol, Calc 177 mg/dL (-129) H 05/29/22 04:40 VLDL Cholesterol 40 mg/dL 05/29/22 04:40 HDL Cholesterol 34 mg/dL (60-) L 05/29/22 04:40 LDL/HDL Ratio 5.2 (<4.4) 05/29/22 04:40 Cholesterol/HDL Ratio 7.4 (<4.4) 05/29/22 04:40 Lipase 31 U/L (22-51) 05/14/22 11:58 TSH 4.51 uIU/mL (0.34-5.60) 05/30/22 10:09 Cortisol AM Sample 6.3 ug/dL 05/29/22 04:40 Urine Color YELLOW 05/14/22 12:40 Urine Clarity HAZY (CLEAR) 05/14/22 12:40 Urine pH 6.0 PH (5.0-7.5) 05/14/22 12:40 Ur Specific [place] 1.025 (1.002-1.030) 05/14/22 12:40 Urine Protein 30 mg/dL (NEGATIVE) H 05/14/22 12:40 Urine Glucose (UA) NEGATIVE mg/dL (NEGATIVE) 05/14/22 12:40 Urine Ketones TRACE mg/dL (NEGATIVE) 05/14/22 12:40 Urine Occult Blood LARGE (NEGATIVE) H 05/14/22 12:40 Urine Nitrite NEGATIVE (NEGATIVE) 05/14/22 12:40 Urine Bilirubin NEGATIVE (NEGATIVE) 05/14/22 12:40 Urine Urobilinogen 0.2 (NORMAL) E.U./dL (NORMAL) 05/14/22 12:40 Ur Leukocyte Esterase NEGATIVE (NEGATIVE) 05/14/22 12:40 Urine RBC 6-10 /HPF (0-5) H 05/14/22 12:40 Urine WBC 0-3 /HPF (0-5) 05/14/22 12:40 Ur Squamous Epith Cells MOD Squamous (<= Few) H 05/14/22 12:40 Urine Bacteria Few /HPF (None Seen) 05/14/22 12:40 Urine Casts 0-2 Fine Granular /LPF0-2 Hyaline Casts /LPF 05/14/22 12:40 Urine Casts 0-2 Fine Granular /LPF0-2 Hyaline Casts /LPF 05/14/22 12:40 Ur Microscopic Review INDICATED 05/14/22 12:40 Urine Culture Comments NOT INDICATED 05/14/22 12:40 Urine Opiates Screen NEGATIVE (NEGATIVE) 05/14/22 12:40 Ur Oxycodone Screen POSITIVE (NEGATIVE) H 05/14/22 12:40 Urine Methadone Screen NEGATIVE (NEGATIVE) 05/14/22 12:40 Ur Propoxyphene Screen NEGATIVE (NEGATIVE) 05/14/22 12:40 Ur Barbiturates Screen NEGATIVE (NEGATIVE) 05/14/22 12:40 Ur Tricyclics Screen NEGATIVE (NEGATIVE) 05/14/22 12:40 Ur Phencyclidine Scrn NEGATIVE (NEGATIVE) 05/14/22 12:40 Ur Amphetamine Screen NEGATIVE (NEGATIVE) 05/14/22 12:40 U Methamphetamines Scrn NEGATIVE (NEGATIVE) 05/14/22 12:40 U Benzodiazepines Scrn NEGATIVE (NEGATIVE) 05/14/22 12:40 Urine Cocaine Screen NEGATIVE (NEGATIVE) 05/14/22 12:40 U Cannabinoids Screen NEGATIVE (NEGATIVE) 05/14/22 12:40 Ethyl Alcohol < 5.0 mg/dL 05/14/22 11:58 MAC Interpretation Comment (.) 05/15/22 09:04 Anti-sm/INVESTMENT TRADER Abs <0.2 AI (0.0-0.9) 05/15/22 09:04 RAFAELA-1 Antibody <0.2 AI (0.0-0.9) 05/15/22 09:04 SS-A/Ro Antibody <0.2 AI (0.0-0.9) 05/15/22 09:04 SS-B/La Antibody 0.4 AI (0.0-0.9) 05/15/22 09:04 Sm (Triana) Antibody <0.2 AI (0.0-0.9) 05/15/22 09:04 INVESTMENT TRADER Antibody 0.5 AI (0.0-0.9) 05/15/22 09:04 Scl-70 Scleroderma Ab <0.2 AI (0.0-0.9) 05/15/22 09:04 Double Strand DNA Ab <1 IU/mL (0-9) 05/15/22 09:04 Ribosomal P Prot Ab <0.2 AI (0.0-0.9) 05/15/22 09:04 Chromatin Antibody <0.2 AI (0.0-0.9) 05/15/22 09:04 Centromere B Antibody <0.2 AI (0.0-0.9) 05/15/22 09:04 SARS-CoV-2 (PCR) NOT DETECTED 05/14/22 13:40 - Procedures Procedures: Procedures INSERTION OF INFUSION DEV INTO SUP VENA CAVA, PERC APPROACH (12/10/21)
[2022-06-16] MEDS: ATORVASTATIN 40 MG TABLET PO SCH (20:13)
[2022-06-17] MEDS: DEXTROSE 5% 1,000 ML IV SCH ×2 (00:27→10:00)
[2022-06-17] MEDS: oxyCODONE 5 MG TABLET PO PRN ×4 (02:40→18:43)
[2022-06-17] MEDS: SODIUM CHLORIDE FLUSH 0.9% 10 ML SYRINGE IVP SCH ×3 (02:41→16:50)
[2022-06-17] MEDS: ACETAMINOPHEN 325 MG TABLET PO PRN ×4 (06:42→18:42)
[2022-06-17] MEDS: LEVOTHYROXINE 25 MCG TABLET PO SCH (06:42)
[2022-06-17 06:54] LABS: CALCIUM 9.2 mg/dL (8.5-10.3); CREATININE 1.2 mg/dL (0.4-1.0); POTASSIUM 4.8 mmol/L (3.5-5.0)
--- NOTE | 2022-06-17 09:26 | PROVIDER PROGRESS NOTE ---
Assessment/Plan - Problem List (1) Acute kidney injury superimposed on CKD Assessment/Plan: I reviewed all her labs, VS, and I's and O's today. In order to encourage po fluid intake, I ordered each pill to be taken separately with water sips/gulps. Strict I's and O's were ordered to monitor and ordered to take in 1500 cc/day but she takes in <1000 cc/day Today her BUN/crteat have slt improved, since getting ivf for 2 days. Plan: Continue iv hydration Avoid nephrotoxins We will be checking her BMP daily Remain off diuretics. Nutrition to assist with better liquid intake, was discussed with Catia. (2) Hyponatremia I reviewed all her labs, VS, and I's and O's today. Na has dropped from to, after D5W at 83.33 cc/hr was started 2 days ago, when her K, creat and Na were elevated. Plan: Change her IV fluids to D5 NS Follow BMP daily Chronic or resolved problems: (3)Metaphyseal fracture of bone of right lower extremity Assessment/Plan: Plan: Continue with pain management, orthopedic equipment to the knee that she can tolerate, and continue working with PT and OT (4) Frequent falls at home Impression: Per pt's story she slipped and fell on some milk this time. Has a history of frequent falls, prior back pain, ankle pain. History of back and ankle surgery. Xrays obtained in ED were negative for fractures. PT noticed that she was only toe touching on the right leg, could not bear weight because her right knee hurt. She does not have aortic stenosis, orthostatic hypotension, arrhythmia, anemia that would cause these frequent falls. Plan: PT/OT working w her. She is ordered to have weight bearing as tolerated. (5) History of seizures Impression: Per EMR was on keppra several admissions ago. Has presented to ED with delirium, etiology uncertain, UTI, dehydration, post-ictal. Plan: continue keppra (6) Cognitive impairment Impression: Last recent hospitalization 1 week ago had a SLUMS test done by OT. Score 11/30, indicating severly cognitively impaired, staff was not sure if she was actively participating to make that an accurate score. The impression we got was that she was irritated with all of this and was throwing us out of the room and did not want to cooperate with questions. 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 During this admission, she has agreed to go to terminologist placement Plan: Social work is working on this placement. It is our wait for placement that keeps her here. (7) Coronary artery disease Impression: hx of [place] Plan: continue therestarted b-briseida and baby aspirin daily, restarted her statin therapy Qualifiers: Coronary Disease-Associated Artery/Lesion type: [place] artery [place] vs. transplanted heart: [place] heart Associated angina: without angina Qualified Code(s): I25.10 - Atherosclerotic heart disease of [place] coronary artery without angina pectoris (8) Chronic HFrEF (heart failure with reduced ejection fraction) Impression: EF 35-40% by ECHO in 12/2021 Plan: b-briseida restarted, ARB restarted, restart spironolactone, no volume overload. (9) Altered mental status Impression: Resolved Has had several hospitalizations in past month, etiology felt to be post-ictal, dehydration, infectious Qualifiers: Altered mental status type: disorientation Qualified Code(s): R41.0 - Disorientation, unspecified (10) Rhabdomyolysis Impression: Resolved CK improved after IV fluids, taking good po intake now Qualifiers: Rhabdomyolysis type: non-traumatic Qualified Code(s): M62.82 - Rhabdomyolysis (11) Hypothyroidism Impression: high TSH 7.51 this admission. It is from not being on Synthroid for several days versus week Plan: Synthroid restarted at beginning of this adm, will check free T4, and TSH again in 4-6 weeks. Qualifiers: Hypothyroidism type: unspecified Qualified Code(s): E03.9 - Hypothyroidism, unspecified (12) HTN (hypertension) Impression: History of HTN, has been normotensive this admission Plan: monitor for HTN SBP>140 Qualifiers: Hypertension type: primary hypertension Qualified Code(s): I10 - Essential (primary) hypertension (13) Hx Multiple sclerosis As per Hx (14) Hyperlipidemia Impression: Plan: check HDL, LDL, triglycerides and ordered for the morning Qualifiers: Hyperlipidemia type: unspecified Qualified Code(s): E78.5 - Hyperlipidemia, unspecified (15) Hypernatremia Impression: Resolved (16) Hypokalemia Resolved. - Current Meds Current Meds: Current Medications Generic Name Dose Route Start Last Admin Trade Name Freq PRN Reason Stop Dose Admin Acetaminophen 650 mg 05/14/22 15:41 06/17/22 06:42 Acetaminophen 325 Mg Tablet PO 650 mg Q4HR PRN Administration Pain 1 to 4, or Fever Aspirin 81 mg 05/16/22 09:00 06/16/22 09:21 Aspirin Ec 81 Mg Tablet PO 81 mg DAILY [facility] Administration Atorvastatin Calcium 40 mg 05/29/22 21:00 06/16/22 20:13 Atorvastatin 40 Mg Tablet PO 40 mg QPM JIN Administration Baclofen 30 mg 05/15/22 21:00 06/16/22 20:13 Baclofen 10 Mg Tablet PO 30 mg BID JIN Administration Carboxymethylcellulose 1 drops 05/21/22 17:59 05/21/22 19:07 Carboxymethylcellulose Ophth Drops EACHEYE 1 drops PRN PRN Administration Dry Eye Carvedilol 3.125 mg 06/12/22 09:24 06/16/22 20:16 Carvedilol 3.125 Mg Tablet PO Not Given BID [facility] Cholecalciferol 50 mcg 05/21/22 12:00 06/16/22 09:21 Cholecalciferol 25 Mcg Tablet PO 50 mcg DAILY [facility] Administration Diclofenac Sodium 75 mg 05/18/22 21:00 06/16/22 20:[address] 75 Mg Tablet PO 75 mg BID [facility] Administration Docusate Sodium 250 - 500 mg 05/18/22 09:00 06/16/22 09:28 Docusate Sodium 250 Mg Capsule PO Not Given DAILY [facility] Enoxaparin Sodium 40 mg 05/15/22 09:00 06/16/22 09:20 Enoxaparin 40 Mg/0.4 Ml Syringe SUBQ 40 mg DAILY [facility] Administration Fluticasone Propionate 1 sprays 05/15/22 08:38 06/05/22 02:01 Fluticasone Nasal [place] WILLIE 1 sprays BID PRN Administration Nasal Congestion Levetiracetam 500 mg 05/15/22 21:00 06/16/22 20:13 Levetiracetam 250 Mg Tablet PO 500 mg BID [facility] Administration Levothyroxine Sodium 50 mcg 05/16/22 07:00 06/17/22 06:42 Levothyroxine 25 Mcg Tablet PO 50 mcg QDAC [facility] Administration Losartan Potassium 12.5 mg 06/12/22 09:24 06/16/22 09:20 Losartan 50 Mg Tablet PO 12.5 mg DAILY JIN Administration Multi-Ingredient Ointment 1 applic 05/29/22 16:07 06/13/22 11:09 Zinc Oxide 20% Oint 30 Gm Tube TOP 1 applic PRN PRN Administration Skin Care Nystatin 1 applic 05/15/22 21:00 06/16/22 20:14 Nystatin Powder 15 Gm TOP 1 applic BID JIN Administration Oxycodone HCl 5 mg 05/14/22 15:41 06/17/22 02:40 Oxycodone 5 Mg Tablet PO 5 mg Q4HR PRN Administration Pain 5 to 7 Polyethylene Glycol 17 gm 05/17/22 12:00 06/16/22 09:19 Polyethylene Glycol 3350 17 Gm Packet PO 17 gm DAILY JIN Administration Senna 8.6 - 17.2 mg 05/18/22 09:00 06/16/22 09:21 Senna 8.6 Mg Tablet PO 8.6 mg DAILY JIN Administration Sodium Chloride 10 ml 06/06/22 17:15 06/12/22 08:38 Sodium Chloride Flush 0.9% 10 Ml Syringe IVP 10 ml PRN PRN Administration PER PHYSICIAN ORDER Sodium Chloride 10 ml 06/12/22 17:00 06/17/22 02:41 Sodium Chloride Flush 0.9% 10 Ml Syringe IVP Not Given 0100,0900,1700 JIN - Lab Result Fish Bone Diagrams: 06/16/22 07:45 06/17/22 06:38 - Additional Planning My Orders: My Active Orders 06/17/22 10:00 D5NS @ 83.333 mls/hr Dextrose 5%-0.9% NaCl [D5ns] 1,000 ml IV 83.333 mls/hr 06/18/22 05:00 BMP - BASIC METABOLIC PANEL [CHEM] DAILYLAB 06/19/22 05:00 BMP - BASIC METABOLIC PANEL [CHEM] DAILYLAB Subjective - Subjective Patient Reports: No Complaints Objective Vital Signs: Vital Signs - 24 hr 06/16/22 06/16/22 06/17/22 19:12 20:19 08:31 Temperature 36.3 C L 36.3 C L Heart Rate [ 66 69 61 Brachial] Respiratory 18 16 16 Rate Blood Pressure 88/50 L 97/60 119/59 L [Right Brachial artery] O2 Saturation 94 94 100 Oxygen O2 Source [With Activity] Room air O2 Source [Without Activity] Room air O2 Source Room air I&O (Last 24 Hrs): Intake and Output Totals x24h 06/15/22 06/16/22 06/17/22 23:59 23:59 23:59 Intake Total 7767.830 7052.939 581.946 Output Total 1200 2700 300 Balance 283.885 -58.061 281.946 General: Alert, Oriented x3, No acute distress HEENT: Atraumatic, Mucous membr. moist/pink, Other (edentulous) Neck: Supple Neuro: Alert, Non Focal Cardiovascular: No murmurs Respiratory: No respiratory distress Abdomen: Soft Extremities: No edema - Results Results: Laboratory Results WBC 8.8 x10^3/uL (4.8-10.8) 06/16/22 07:45 RBC 3.64 10^6/uL (4.20-5.40) L 06/16/22 07:45 Hgb 10.3 g/dL (12.0-16.0) L 06/16/22 07:45 Hct 33.2 % (37.0-47.0) L 06/16/22 07:45 MCV 91.2 fL (81.0-99.0) 06/16/22 07:45 MCH 28.3 pg (27.0-31.0) 06/16/22 07:45 MCHC 31.0 g/dL (32.0-36.0) L 06/16/22 07:45 RDW 15.2 % (12.0-15.0) H 06/16/22 07:45 Plt Count 312 10^3/uL (130-450) 06/16/22 07:45 MPV 10.5 fL (7.9-10.8) 06/16/22 07:45 Neut # (Auto) 5.5 10^3/uL (1.5-6.6) 06/16/22 07:45 Lymph # (Auto) 2.2 10^3/uL (1.5-3.5) 06/16/22 07:45 [place] # (Auto) 0.9 10^3/uL (0.0-1.0) 06/16/22 07:45 Eos # (Auto) 0.0 10^3/uL (0.0-0.7) 06/16/22 07:45 Baso # (Auto) 0.2 10^3/uL (0.0-0.1) H 06/16/22 07:45 Absolute Nucleated RBC 0.00 x10^3/uL 06/16/22 07:45 Total Counted 100 06/13/22 05:02 Band Neuts % (Manual) 0 % (0-10) 06/13/22 05:02 Abnorm Lymph % (Manual) 0 % 06/13/22 05:02 Nucleated RBC % 0.0 /100WBC 06/16/22 07:45 Neutrophils # (Manual) 5.1 10^3/uL (1.5-6.6) 06/13/22 05:02 Lymphocytes # (Manual) 2.5 10^3/uL (1.5-3.5) 06/13/22 05:02 Monocytes # (Manual) 0.7 10^3/uL (0.0-1.0) 06/13/22 05:02 Eosinophils # (Manual) 0.7 10^3/uL (0-0.7) 06/13/22 05:02 Basophils # (Manual) 0.2 10^3/uL (0-0.1) H 06/13/22 05:02 Differential Comment MANUAL DIFFERENTIAL 06/13/22 05:02 WBC Morphology NORMAL APPEARANCE (NORMAL) 06/13/22 05:02 Platelet Estimate NORMAL (130-450,000) (NORMAL) 06/13/22 05:02 Platelet Morphology NORMAL APPEARANCE (NORMAL) 06/13/22 05:02 RBC Morph Micro Appear NORMAL APPEARANCE (NORMAL) 06/13/22 05:02 Sodium 132 mmol/L (135-145) L 06/17/22 06:38 Potassium 4.8 mmol/L (3.5-5.0) 06/17/22 06:38 Chloride 101 mmol/L (101-111) 06/17/22 06:38 Carbon Dioxide 22 mmol/L (21-32) 06/17/22 06:38 Anion Gap 9.0 (6-13) 06/17/22 06:38 BUN 27 mg/dL (6-20) H 06/17/22 06:38 Creatinine 1.2 mg/dL (0.4-1.0) H 06/17/22 06:38 Estimated GFR (MDRD) 45 (>89) L 06/17/22 06:38 Glucose 96 mg/dL (70-100) 06/17/22 06:38 Lactic Acid 1.6 mmol/L (0.5-2.2) 05/14/22 11:58 Calcium 9.2 mg/dL (8.5-10.3) 06/17/22 06:38 Total Bilirubin 0.9 mg/dL (0.2-1.0) 05/14/22 11:58 AST 73 IU/L (10-42) H 05/14/22 11:58 ALT 28 IU/L (10-60) 05/14/22 11:58 Alkaline Phosphatase 120 IU/L (42-121) 05/14/22 11:58 Ammonia 12.4 umol/L (7-35) 05/14/22 11:58 Total Creatine Kinase 742 IU/L (22-269) H 05/18/22 04:47 C-Reactive Protein 11.3 mg/dL (0-1.0) H 05/15/22 04:15 B-Natriuretic Peptide 468 pg/mL (5-100) H 05/14/22 11:58 Total Protein 8.3 g/dL (6.7-8.2) H 05/14/22 11:58 Albumin 4.0 g/dL (3.2-5.5) 05/14/22 11:58 Globulin 4.3 g/dL (2.1-4.2) H 05/14/22 11:58 Albumin/Globulin Ratio 0.9 (1.0-2.2) L 05/14/22 11:58 Triglycerides 201 mg/dL (-149) H 05/29/22 04:40 Cholesterol 251 mg/dL (-199) H 05/29/22 04:40 LDL Cholesterol, Calc 177 mg/dL (-129) H 05/29/22 04:40 VLDL Cholesterol 40 mg/dL 05/29/22 04:40 HDL Cholesterol 34 mg/dL (60-) L 05/29/22 04:40 LDL/HDL Ratio 5.2 (<4.4) 05/29/22 04:40 Cholesterol/HDL Ratio 7.4 (<4.4) 05/29/22 04:40 Lipase 31 U/L (22-51) 05/14/22 11:58 TSH 4.51 uIU/mL (0.34-5.60) 05/30/22 10:09 Cortisol AM Sample 6.3 ug/dL 05/29/22 04:40 Urine Color YELLOW 05/14/22 12:40 Urine Clarity HAZY (CLEAR) 05/14/22 12:40 Urine pH 6.0 PH (5.0-7.5) 05/14/22 12:40 Ur Specific [place] 1.025 (1.002-1.030) 05/14/22 12:40 Urine Protein 30 mg/dL (NEGATIVE) H 05/14/22 12:40 Urine Glucose (UA) NEGATIVE mg/dL (NEGATIVE) 05/14/22 12:40 Urine Ketones TRACE mg/dL (NEGATIVE) 05/14/22 12:40 Urine Occult Blood LARGE (NEGATIVE) H 05/14/22 12:40 Urine Nitrite NEGATIVE (NEGATIVE) 05/14/22 12:40 Urine Bilirubin NEGATIVE (NEGATIVE) 05/14/22 12:40 Urine Urobilinogen 0.2 (NORMAL) E.U./dL (NORMAL) 05/14/22 12:40 Ur Leukocyte Esterase NEGATIVE (NEGATIVE) 05/14/22 12:40 Urine RBC 6-10 /HPF (0-5) H 05/14/22 12:40 Urine WBC 0-3 /HPF (0-5) 05/14/22 12:40 Ur Squamous Epith Cells MOD Squamous (<= Few) H 05/14/22 12:40 Urine Bacteria Few /HPF (None Seen) 05/14/22 12:40 Urine Casts 0-2 Fine Granular /LPF0-2 Hyaline Casts /LPF 05/14/22 12:40 Urine Casts 0-2 Fine Granular /LPF0-2 Hyaline Casts /LPF 05/14/22 12:40 Ur Microscopic Review INDICATED 05/14/22 12:40 Urine Culture Comments NOT INDICATED 05/14/22 12:40 Urine Opiates Screen NEGATIVE (NEGATIVE) 05/14/22 12:40 Ur Oxycodone Screen POSITIVE (NEGATIVE) H 05/14/22 12:40 Urine Methadone Screen NEGATIVE (NEGATIVE) 05/14/22 12:40 Ur Propoxyphene Screen NEGATIVE (NEGATIVE) 05/14/22 12:40 Ur Barbiturates Screen NEGATIVE (NEGATIVE) 05/14/22 12:40 Ur Tricyclics Screen NEGATIVE (NEGATIVE) 05/14/22 12:40 Ur Phencyclidine Scrn NEGATIVE (NEGATIVE) 05/14/22 12:40 Ur Amphetamine Screen NEGATIVE (NEGATIVE) 05/14/22 12:40 U Methamphetamines Scrn NEGATIVE (NEGATIVE) 05/14/22 12:40 U Benzodiazepines Scrn NEGATIVE (NEGATIVE) 05/14/22 12:40 Urine Cocaine Screen NEGATIVE (NEGATIVE) 05/14/22 12:40 U Cannabinoids Screen NEGATIVE (NEGATIVE) 05/14/22 12:40 Ethyl Alcohol < 5.0 mg/dL 05/14/22 11:58 MAC Interpretation Comment (.) 05/15/22 09:04 Anti-sm/FUEL OIL CLERK Abs <0.2 AI (0.0-0.9) 05/15/22 09:04 RAFAELA-1 Antibody <0.2 AI (0.0-0.9) 05/15/22 09:04 SS-A/Ro Antibody <0.2 AI (0.0-0.9) 05/15/22 09:04 SS-B/La Antibody 0.4 AI (0.0-0.9) 05/15/22 09:04 Sm (Triana) Antibody <0.2 AI (0.0-0.9) 05/15/22 09:04 FUEL OIL CLERK Antibody 0.5 AI (0.0-0.9) 05/15/22 09:04 Scl-70 Scleroderma Ab <0.2 AI (0.0-0.9) 05/15/22 09:04 Double Strand DNA Ab <1 IU/mL (0-9) 05/15/22 09:04 Ribosomal P Prot Ab <0.2 AI (0.0-0.9) 05/15/22 09:04 Chromatin Antibody <0.2 AI (0.0-0.9) 05/15/22 09:04 Centromere B Antibody <0.2 AI (0.0-0.9) 05/15/22 09:04 SARS-CoV-2 (PCR) NOT DETECTED 05/14/22 13:40 - Procedures Procedures: Procedures INSERTION OF INFUSION DEV INTO SUP VENA CAVA, PERC APPROACH (12/10/21)
[2022-06-17] MEDS: CHOLECALCIFEROL 25 MCG TABLET PO SCH (09:56)
[2022-06-17] MEDS: levETIRAcetam 250 MG TABLET PO SCH ×2 (09:56→20:36)
[2022-06-17] MEDS: DICLOFENAC SODIUM DR 75 MG TABLET PO SCH ×2 (09:56→20:36)
[2022-06-17] MEDS: ASPIRIN EC 81 MG TABLET PO SCH (09:56)
[2022-06-17] MEDS: ENOXAPARIN 40 MG/0.4 ML SYRINGE SUBQ SCH (09:56)
[2022-06-17] MEDS: polyethylene glycoL 3350 17 GM PACKET PO SCH (09:57)
[2022-06-17] MEDS: BACLOFEN 10 MG TABLET PO SCH ×2 (09:57→20:36)
[2022-06-17] MEDS: DOCUSATE SODIUM 250 MG CAPSULE PO SCH (09:57)
[2022-06-17] MEDS: SENNA 8.6 MG TABLET PO SCH (09:58)
[2022-06-17] MEDS: NYSTATIN POWDER 15 GM TOP SCH ×2 (10:00→20:37)
[2022-06-17] MEDS: LOSARTAN 50 MG TABLET PO SCH (10:01)
[2022-06-17] MEDS: carvediloL 3.125 MG TABLET PO SCH ×3 (10:03→20:39)
[2022-06-17] MEDS: DEXTROSE 5%-0.9% NACL 1,000 ML IV SCH ×2 (10:15→22:06)
[2022-06-17] MEDS: ATORVASTATIN 40 MG TABLET PO SCH (20:36)
[2022-06-17] MEDS: FLUTICASONE NASAL SPRAY NAS PRN (23:58)
[2022-06-18] MEDS: oxyCODONE 5 MG TABLET PO PRN ×5 (04:00→20:29)
[2022-06-18 05:43] LABS: CALCIUM 9.3 mg/dL (8.5-10.3); CREATININE 1.1 mg/dL (0.4-1.0); POTASSIUM 4.7 mmol/L (3.5-5.0)
[2022-06-18] MEDS: LEVOTHYROXINE 25 MCG TABLET PO SCH (06:28)
[2022-06-18] MEDS: ACETAMINOPHEN 325 MG TABLET PO PRN ×4 (07:45→20:30)
[2022-06-18] MEDS: BACLOFEN 10 MG TABLET PO SCH ×2 (09:08→20:31)
[2022-06-18] MEDS: DOCUSATE SODIUM 250 MG CAPSULE PO SCH (09:08)
[2022-06-18] MEDS: CHOLECALCIFEROL 25 MCG TABLET PO SCH (09:08)
[2022-06-18] MEDS: ENOXAPARIN 40 MG/0.4 ML SYRINGE SUBQ SCH (09:08)
[2022-06-18] MEDS: carvediloL 3.125 MG TABLET PO SCH ×2 (09:09→20:27)
[2022-06-18] MEDS: DICLOFENAC SODIUM DR 75 MG TABLET PO SCH ×2 (09:09→20:29)
[2022-06-18] MEDS: LOSARTAN 50 MG TABLET PO SCH (09:09)
[2022-06-18] MEDS: ASPIRIN EC 81 MG TABLET PO SCH (09:09)
[2022-06-18] MEDS: levETIRAcetam 250 MG TABLET PO SCH ×2 (09:09→20:32)
[2022-06-18] MEDS: NYSTATIN POWDER 15 GM TOP SCH ×2 (09:10→20:33)
[2022-06-18] MEDS: SODIUM CHLORIDE FLUSH 0.9% 10 ML SYRINGE IVP SCH ×3 (09:10→16:22)
[2022-06-18] MEDS: DEXTROSE 5%-0.9% NACL 1,000 ML IV SCH (09:23)
[2022-06-18] MEDS: polyethylene glycoL 3350 17 GM PACKET PO SCH (12:08)
[2022-06-18] MEDS: SENNA 8.6 MG TABLET PO SCH (12:08)
[2022-06-18] MEDS: ZINC OXIDE 20% OINT 30 GM TUBE TOP PRN (12:24)
[2022-06-18] MEDS: FLUDROCORTISONE 0.1 MG TABLET PO SCH (12:29)
--- NOTE | 2022-06-18 15:49 | PROVIDER PROGRESS NOTE ---
Assessment/Plan - Problem List (1) Acute kidney injury superimposed on CKD Assessment/Plan: I reviewed all her labs, VS, and I's and O's today. In order to encourage po fluid intake, I ordered each pill to be taken separately with water sips/gulps. Strict I's and O's were ordered to monitor and ordered to take in 1500 cc/day but she takes in <1000 cc/day Today her BUN/creat have slt improved, since getting ivf for 2 days. Induction Heating Equipment Setter Catia has been assisting for ideas with better liquid intake Plan: Since she cannot remain on chronic iv hydration, will try to manage by giving her oral Florinef daily (for it's salt and water retention properties). We will stop the IV fluids today. We will try this with Florinef for 3 days, following BMP daily Avoid nephrotoxins Remain off diuretics. (2) Hyponatremia I reviewed all her labs, VS, and I's and O's today. Na improved after I changed iv fluids to NS Plan: As above in #1 Follow BMP daily Chronic or resolved problems: (3)Metaphyseal fracture of bone of right lower extremity Assessment/Plan: She had more pain in the R knee today Plan: Continue with pain management, orthopedic equipment to the knee that she can tolerate, and continue working with PT and OT (4) Frequent falls at home Impression: Per pt's story she slipped and fell on some milk this time. Has a history of frequent falls, prior back pain, ankle pain. History of back and ankle surgery. Xrays obtained in ED were negative for fractures. PT noticed that she was only toe touching on the right leg, could not bear weight because her right knee hurt. She does not have aortic stenosis, orthostatic hypotension, arrhythmia, anemia that would cause these frequent falls. Plan: PT/OT working w her. She is ordered to have weight bearing as tolerated. (5) History of seizures Impression: Per EMR was on keppra several admissions ago. Has presented to ED with delirium, etiology uncertain, UTI, dehydration, post-ictal. Plan: continue keppra (6) Cognitive impairment Impression: Last recent hospitalization 1 week ago had a SLUMS test done by OT. Score 11/30, indicating severly cognitively impaired, staff was not sure if she was actively participating to make that an accurate score. The impression we got was that she was irritated with all of this and was throwing us out of the room and did not want to cooperate with questions. 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 It is our wait for placement that keeps her here. (7) Coronary artery disease Impression: hx of [place] Plan: continue therestarted b-briseida and baby aspirin daily, restarted her statin therapy Qualifiers: Coronary Disease-Associated Artery/Lesion type: [place] artery [place] vs. transplanted heart: [place] heart Associated angina: without angina Qualified Code(s): I25.10 - Atherosclerotic heart disease of [place] coronary artery without angina pectoris (8) Chronic HFrEF (heart failure with reduced ejection fraction) Impression: EF 35-40% by ECHO in 12/2021 Plan: b-briseida restarted, ARB restarted, restart spironolactone, no volume overload. (9) Altered mental status Impression: Resolved Has had several hospitalizations in past month, etiology felt to be post-ictal, dehydration, infectious Qualifiers: Altered mental status type: disorientation Qualified Code(s): R41.0 - Disorientation, unspecified (10) Rhabdomyolysis Impression: Resolved CK improved after IV fluids, taking good po intake now Qualifiers: Rhabdomyolysis type: non-traumatic Qualified Code(s): M62.82 - Rhabdomyolysis (11) Hypothyroidism Impression: high TSH 7.51 this admission. It is from not being on Synthroid for several days versus week Plan: Synthroid restarted at beginning of this adm, will check free T4, and TSH again in 4-6 weeks. Qualifiers: Hypothyroidism type: unspecified Qualified Code(s): E03.9 - Hypothyroidism, unspecified (12) HTN (hypertension) Impression: History of HTN, has been normotensive this admission Plan: monitor for HTN SBP>140 Qualifiers: Hypertension type: primary hypertension Qualified Code(s): I10 - Essential (primary) hypertension (13) Hx Multiple sclerosis As per Hx (14) Hyperlipidemia Impression: Plan: check HDL, LDL, triglycerides and ordered for the morning Qualifiers: Hyperlipidemia type: unspecified Qualified Code(s): E78.5 - Hyperlipidemia, unspecified (15) Hypernatremia Impression: Resolved (16) Hypokalemia Resolved. - Current Meds Current Meds: Current Medications Generic Name Dose Route Start Last Admin Trade Name Freq PRN Reason Stop Dose Admin Acetaminophen 650 mg 05/14/22 15:41 06/18/22 12:08 Acetaminophen 325 Mg Tablet PO 650 mg Q4HR PRN Administration Pain 1 to 4, or Fever Aspirin 81 mg 05/16/22 09:00 06/18/22 09:09 Aspirin Ec 81 Mg Tablet PO 81 mg DAILY JIN Administration Atorvastatin Calcium 40 mg 05/29/22 21:00 06/17/22 20:36 Atorvastatin 40 Mg Tablet PO 40 mg QPM JIN Administration Baclofen 30 mg 05/15/22 21:00 06/18/22 09:08 Baclofen 10 Mg Tablet PO 30 mg BID JIN Administration Carboxymethylcellulose 1 drops 05/21/22 17:59 05/21/22 19:07 Carboxymethylcellulose Ophth Drops EACHEYE 1 drops PRN PRN Administration Dry Eye Carvedilol 3.125 mg 06/12/22 09:24 06/18/22 09:09 Carvedilol 3.125 Mg Tablet PO 3.125 mg BID JIN Administration Cholecalciferol 50 mcg 05/21/22 12:00 06/18/22 09:08 Cholecalciferol 25 Mcg Tablet PO 50 mcg DAILY [facility] Administration Diclofenac Sodium 75 mg 05/18/22 21:00 06/18/22 09:[address] 75 Mg Tablet PO 75 mg BID JIN Administration Docusate Sodium 250 - 500 mg 05/18/22 09:00 06/18/22 09:08 Docusate Sodium 250 Mg Capsule PO 250 mg DAILY JIN Administration Enoxaparin Sodium 40 mg 05/15/22 09:00 06/18/22 09:08 Enoxaparin 40 Mg/0.4 Ml Syringe SUBQ 40 mg DAILY [facility] Administration Fludrocortisone Acetate 0.1 mg 06/18/22 12:00 06/18/22 12:29 Fludrocortisone 0.1 Mg Tablet PO 06/21/22 00:01 0.1 mg DAILY JIN Administration Fluticasone Propionate 1 sprays 05/15/22 08:38 06/17/22 23:58 Fluticasone Nasal [place] WILLIE 1 sprays BID PRN Administration Nasal Congestion Levetiracetam 500 mg 05/15/22 21:00 06/18/22 09:09 Levetiracetam 250 Mg Tablet PO 500 mg BID JIN Administration Levothyroxine Sodium 50 mcg 05/16/22 07:00 06/18/22 06:28 Levothyroxine 25 Mcg Tablet PO 50 mcg QDAC JIN Administration Losartan Potassium 12.5 mg 06/12/22 09:24 06/18/22 09:09 Losartan 50 Mg Tablet PO 12.5 mg DAILY JIN Administration Multi-Ingredient Ointment 1 applic 05/29/22 16:07 06/18/22 12:24 Zinc Oxide 20% Oint 30 Gm Tube TOP 1 applic PRN PRN Administration Skin Care Nystatin 1 applic 05/15/22 21:00 06/18/22 09:10 Nystatin Powder 15 Gm TOP 1 applic BID JIN Administration Oxycodone HCl 5 mg 05/14/22 15:41 06/18/22 12:08 Oxycodone 5 Mg Tablet PO 5 mg Q4HR PRN Administration Pain 5 to 7 Polyethylene Glycol 17 gm 05/17/22 12:00 06/18/22 12:08 Polyethylene Glycol 3350 17 Gm Packet PO 17 gm DAILY JIN Administration Senna 8.6 - 17.2 mg 05/18/22 09:00 06/18/22 12:08 Senna 8.6 Mg Tablet PO 8.6 mg DAILY JIN Administration Sodium Chloride 10 ml 06/06/22 17:15 06/12/22 08:38 Sodium Chloride Flush 0.9% 10 Ml Syringe IVP 10 ml PRN PRN Administration PER PHYSICIAN ORDER Sodium Chloride 10 ml 06/12/22 17:00 06/18/22 09:10 Sodium Chloride Flush 0.9% 10 Ml Syringe IVP Not Given 0100,0900,1700 JIN - Lab Result Fish Bone Diagrams: 06/16/22 07:45 06/18/22 04:57 - Additional Planning My Orders: My Active Orders 06/18/22 12:00 Fludrocortisone [Florinef] 0.1 mg PO DAILY 06/19/22 05:00 BMP - BASIC METABOLIC PANEL [CHEM] DAILYLAB BMP - BASIC METABOLIC PANEL [CHEM] DAILYLAB 06/20/22 05:00 BMP - BASIC METABOLIC PANEL [CHEM] DAILYLAB 06/21/22 05:00 BMP - BASIC METABOLIC PANEL [CHEM] DAILYLAB 06/22/22 05:00 BMP - BASIC METABOLIC PANEL [CHEM] DAILYLAB 06/23/22 05:00 BMP - BASIC METABOLIC PANEL [CHEM] DAILYLAB Subjective - Subjective Patient Reports: Other (Pain in R knee with movement. More Echolalia today.) Objective Vital Signs: Vital Signs - 24 hr 06/17/22 06/18/22 06/18/22 18:32 08:28 09:05 Temperature 36.3 C L 36.2 C L Heart Rate [ 71 78 69 Brachial] Respiratory 18 14 Rate Blood Pressure 106/54 L [Left Brachial artery] Blood Pressure 103/55 L 119/82 H [Right Brachial artery] O2 Saturation 97 94 Oxygen O2 Source [With Activity] Room air O2 Source [Without Activity] Room air O2 Source Room air I&O (Last 24 Hrs): Intake and Output Totals x24h 06/16/22 06/17/22 06/18/22 23:59 23:59 23:59 Intake Total 2641.939 3303.562 1598.044 Output Total 2700 2250 3300 Balance -58.061 1053.562 -1701.956 General: Alert, Oriented x3 HEENT: Mucous membr. moist/pink, Other (edentulous) Neck: Supple Neuro: Alert, Non Focal, Other (Occaissional Echolalia, often her speech is in a yelling voice) Cardiovascular: No murmurs Respiratory: No respiratory distress Abdomen: Soft Extremities: No clubbing, No edema, Other (R knee possibly swollen) - Results Results: Laboratory Results WBC 8.8 x10^3/uL (4.8-10.8) 06/16/22 07:45 RBC 3.64 10^6/uL (4.20-5.40) L 06/16/22 07:45 Hgb 10.3 g/dL (12.0-16.0) L 06/16/22 07:45 Hct 33.2 % (37.0-47.0) L 06/16/22 07:45 MCV 91.2 fL (81.0-99.0) 06/16/22 07:45 MCH 28.3 pg (27.0-31.0) 06/16/22 07:45 MCHC 31.0 g/dL (32.0-36.0) L 06/16/22 07:45 RDW 15.2 % (12.0-15.0) H 06/16/22 07:45 Plt Count 312 10^3/uL (130-450) 06/16/22 07:45 MPV 10.5 fL (7.9-10.8) 06/16/22 07:45 Neut # (Auto) 5.5 10^3/uL (1.5-6.6) 06/16/22 07:45 Lymph # (Auto) 2.2 10^3/uL (1.5-3.5) 06/16/22 07:45 [place] # (Auto) 0.9 10^3/uL (0.0-1.0) 06/16/22 07:45 Eos # (Auto) 0.0 10^3/uL (0.0-0.7) 06/16/22 07:45 Baso # (Auto) 0.2 10^3/uL (0.0-0.1) H 06/16/22 07:45 Absolute Nucleated RBC 0.00 x10^3/uL 06/16/22 07:45 Total Counted 100 06/13/22 05:02 Band Neuts % (Manual) 0 % (0-10) 06/13/22 05:02 Abnorm Lymph % (Manual) 0 % 06/13/22 05:02 Nucleated RBC % 0.0 /100WBC 06/16/22 07:45 Neutrophils # (Manual) 5.1 10^3/uL (1.5-6.6) 06/13/22 05:02 Lymphocytes # (Manual) 2.5 10^3/uL (1.5-3.5) 06/13/22 05:02 Monocytes # (Manual) 0.7 10^3/uL (0.0-1.0) 06/13/22 05:02 Eosinophils # (Manual) 0.7 10^3/uL (0-0.7) 06/13/22 05:02 Basophils # (Manual) 0.2 10^3/uL (0-0.1) H 06/13/22 05:02 Differential Comment MANUAL DIFFERENTIAL 06/13/22 05:02 WBC Morphology NORMAL APPEARANCE (NORMAL) 06/13/22 05:02 Platelet Estimate NORMAL (130-450,000) (NORMAL) 06/13/22 05:02 Platelet Morphology NORMAL APPEARANCE (NORMAL) 06/13/22 05:02 RBC Morph Micro Appear NORMAL APPEARANCE (NORMAL) 06/13/22 05:02 Sodium 140 mmol/L (135-145) 06/18/22 04:57 Potassium 4.7 mmol/L (3.5-5.0) 06/18/22 04:57 Chloride 108 mmol/L (101-111) 06/18/22 04:57 Carbon Dioxide 24 mmol/L (21-32) 06/18/22 04:57 Anion Gap 8.0 (6-13) 06/18/22 04:57 BUN 24 mg/dL (6-20) H 06/18/22 04:57 Creatinine 1.1 mg/dL (0.4-1.0) H 06/18/22 04:57 Estimated GFR (MDRD) 50 (>89) L 06/18/22 04:57 Glucose 87 mg/dL (70-100) 06/18/22 04:57 Lactic Acid 1.6 mmol/L (0.5-2.2) 05/14/22 11:58 Calcium 9.3 mg/dL (8.5-10.3) 06/18/22 04:57 Total Bilirubin 0.9 mg/dL (0.2-1.0) 05/14/22 11:58 AST 73 IU/L (10-42) H 05/14/22 11:58 ALT 28 IU/L (10-60) 05/14/22 11:58 Alkaline Phosphatase 120 IU/L (42-121) 05/14/22 11:58 Ammonia 12.4 umol/L (7-35) 05/14/22 11:58 Total Creatine Kinase 742 IU/L (22-269) H 05/18/22 04:47 C-Reactive Protein 11.3 mg/dL (0-1.0) H 05/15/22 04:15 B-Natriuretic Peptide 468 pg/mL (5-100) H 05/14/22 11:58 Total Protein 8.3 g/dL (6.7-8.2) H 05/14/22 11:58 Albumin 4.0 g/dL (3.2-5.5) 05/14/22 11:58 Globulin 4.3 g/dL (2.1-4.2) H 05/14/22 11:58 Albumin/Globulin Ratio 0.9 (1.0-2.2) L 05/14/22 11:58 Triglycerides 201 mg/dL (-149) H 05/29/22 04:40 Cholesterol 251 mg/dL (-199) H 05/29/22 04:40 LDL Cholesterol, Calc 177 mg/dL (-129) H 05/29/22 04:40 VLDL Cholesterol 40 mg/dL 05/29/22 04:40 HDL Cholesterol 34 mg/dL (60-) L 05/29/22 04:40 LDL/HDL Ratio 5.2 (<4.4) 05/29/22 04:40 Cholesterol/HDL Ratio 7.4 (<4.4) 05/29/22 04:40 Lipase 31 U/L (22-51) 05/14/22 11:58 TSH 4.51 uIU/mL (0.34-5.60) 05/30/22 10:09 Cortisol AM Sample 6.3 ug/dL 05/29/22 04:40 Urine Color YELLOW 05/14/22 12:40 Urine Clarity HAZY (CLEAR) 05/14/22 12:40 Urine pH 6.0 PH (5.0-7.5) 05/14/22 12:40 Ur Specific [place] 1.025 (1.002-1.030) 05/14/22 12:40 Urine Protein 30 mg/dL (NEGATIVE) H 05/14/22 12:40 Urine Glucose (UA) NEGATIVE mg/dL (NEGATIVE) 05/14/22 12:40 Urine Ketones TRACE mg/dL (NEGATIVE) 05/14/22 12:40 Urine Occult Blood LARGE (NEGATIVE) H 05/14/22 12:40 Urine Nitrite NEGATIVE (NEGATIVE) 05/14/22 12:40 Urine Bilirubin NEGATIVE (NEGATIVE) 05/14/22 12:40 Urine Urobilinogen 0.2 (NORMAL) E.U./dL (NORMAL) 05/14/22 12:40 Ur Leukocyte Esterase NEGATIVE (NEGATIVE) 05/14/22 12:40 Urine RBC 6-10 /HPF (0-5) H 05/14/22 12:40 Urine WBC 0-3 /HPF (0-5) 05/14/22 12:40 Ur Squamous Epith Cells MOD Squamous (<= Few) H 05/14/22 12:40 Urine Bacteria Few /HPF (None Seen) 05/14/22 12:40 Urine Casts 0-2 Fine Granular /LPF0-2 Hyaline Casts /LPF 05/14/22 12:40 Urine Casts 0-2 Fine Granular /LPF0-2 Hyaline Casts /LPF 05/14/22 12:40 Ur Microscopic Review INDICATED 05/14/22 12:40 Urine Culture Comments NOT INDICATED 05/14/22 12:40 Urine Opiates Screen NEGATIVE (NEGATIVE) 05/14/22 12:40 Ur Oxycodone Screen POSITIVE (NEGATIVE) H 05/14/22 12:40 Urine Methadone Screen NEGATIVE (NEGATIVE) 05/14/22 12:40 Ur Propoxyphene Screen NEGATIVE (NEGATIVE) 05/14/22 12:40 Ur Barbiturates Screen NEGATIVE (NEGATIVE) 05/14/22 12:40 Ur Tricyclics Screen NEGATIVE (NEGATIVE) 05/14/22 12:40 Ur Phencyclidine Scrn NEGATIVE (NEGATIVE) 05/14/22 12:40 Ur Amphetamine Screen NEGATIVE (NEGATIVE) 05/14/22 12:40 U Methamphetamines Scrn NEGATIVE (NEGATIVE) 05/14/22 12:40 U Benzodiazepines Scrn NEGATIVE (NEGATIVE) 05/14/22 12:40 Urine Cocaine Screen NEGATIVE (NEGATIVE) 05/14/22 12:40 U Cannabinoids Screen NEGATIVE (NEGATIVE) 05/14/22 12:40 Ethyl Alcohol < 5.0 mg/dL 05/14/22 11:58 MAC Interpretation Comment (.) 05/15/22 09:04 Anti-sm/MAT PACKER Abs <0.2 AI (0.0-0.9) 05/15/22 09:04 RAFAELA-1 Antibody <0.2 AI (0.0-0.9) 05/15/22 09:04 SS-A/Ro Antibody <0.2 AI (0.0-0.9) 05/15/22 09:04 SS-B/La Antibody 0.4 AI (0.0-0.9) 05/15/22 09:04 Sm (Triana) Antibody <0.2 AI (0.0-0.9) 05/15/22 09:04 MAT PACKER Antibody 0.5 AI (0.0-0.9) 05/15/22 09:04 Scl-70 Scleroderma Ab <0.2 AI (0.0-0.9) 05/15/22 09:04 Double Strand DNA Ab <1 IU/mL (0-9) 05/15/22 09:04 Ribosomal P Prot Ab <0.2 AI (0.0-0.9) 05/15/22 09:04 Chromatin Antibody <0.2 AI (0.0-0.9) 05/15/22 09:04 Centromere B Antibody <0.2 AI (0.0-0.9) 05/15/22 09:04 SARS-CoV-2 (PCR) NOT DETECTED 05/14/22 13:40 - Procedures Procedures: Procedures INSERTION OF INFUSION DEV INTO SUP VENA CAVA, PERC APPROACH (12/10/21)
[2022-06-18] MEDS: FLUTICASONE NASAL SPRAY NAS PRN (18:07)
[2022-06-18] MEDS: ATORVASTATIN 40 MG TABLET PO SCH (20:30)
[2022-06-19] MEDS: oxyCODONE 5 MG TABLET PO PRN ×5 (00:29→18:16)
[2022-06-19] MEDS: FLUTICASONE NASAL SPRAY NAS PRN (02:11)
[2022-06-19] MEDS: ACETAMINOPHEN 325 MG TABLET PO PRN ×4 (02:38→18:16)
[2022-06-19] MEDS: SODIUM CHLORIDE FLUSH 0.9% 10 ML SYRINGE IVP SCH ×3 (02:38→18:16)
[2022-06-19] MEDS: LEVOTHYROXINE 25 MCG TABLET PO SCH (06:15)
[2022-06-19 07:54] LABS: CALCIUM 9.4 mg/dL (8.5-10.3); CREATININE 1.2 mg/dL (0.4-1.0)
[2022-06-19] MEDS: ZINC OXIDE 20% OINT 30 GM TUBE TOP PRN (08:58)
[2022-06-19] MEDS: polyethylene glycoL 3350 17 GM PACKET PO SCH (08:58)
[2022-06-19] MEDS: NYSTATIN POWDER 15 GM TOP SCH ×2 (08:58→21:22)
[2022-06-19] MEDS: ENOXAPARIN 40 MG/0.4 ML SYRINGE SUBQ SCH (08:58)
[2022-06-19] MEDS: ASPIRIN EC 81 MG TABLET PO SCH (08:59)
[2022-06-19] MEDS: DOCUSATE SODIUM 250 MG CAPSULE PO SCH (08:59)
[2022-06-19] MEDS: DICLOFENAC SODIUM DR 75 MG TABLET PO SCH ×2 (08:59→21:21)
[2022-06-19] MEDS: FLUDROCORTISONE 0.1 MG TABLET PO SCH (09:00)
[2022-06-19] MEDS: CHOLECALCIFEROL 25 MCG TABLET PO SCH (09:00)
[2022-06-19] MEDS: levETIRAcetam 250 MG TABLET PO SCH ×2 (09:00→21:21)
[2022-06-19] MEDS: BACLOFEN 10 MG TABLET PO SCH ×2 (09:00→21:21)
[2022-06-19] MEDS: carvediloL 3.125 MG TABLET PO SCH ×2 (09:00→21:21)
[2022-06-19] MEDS: LOSARTAN 50 MG TABLET PO SCH (09:01)
[2022-06-19] MEDS: SENNA 8.6 MG TABLET PO SCH (10:11)
--- NOTE | 2022-06-19 18:52 | PROVIDER PROGRESS NOTE ---
Progress Note June 19, 2022 6:49 PM Carole is stable. No new events. She was started on Florinef to see if her BUN and creatinine would improve as well as blood pressure would improve. Creatinine is 1.2 today. Sodium is normal. Systolic is varied between 103-128 today. Temperature 36.5. Heart rate 69. Blood pressure 103/63. Respirations 15. 97% on room air. She is oriented to place, person. Not time. Poor historian. Poor memory. Does a lot of repetitive echolalia when you ask her questions. But sometimes she seems to be aware, and will get excited or agitated depending on the situation. Neck is supple Lungs are clear Abdomen is soft and nontender (1) Acute kidney injury superimposed on CKD Assessment/Plan: I reviewed all her labs, VS, and I's and O's today. In order to encourage po fluid intake, I ordered each pill to be taken separately with water sips/gulps. Strict I's and O's were ordered to monitor and ordered to take in 1500 cc/day but she takes in <1000 cc/day Today her BUN/creat have slt improved, since getting ivf for 2 days. Grave Cleaner Catia has been assisting for ideas with better liquid intake Plan: Since she cannot remain on chronic iv hydration, will try to manage by giving her oral Florinef daily (for it's salt and water retention properties). We will stop the IV fluids today. We will try this with Florinef for 3 days, following BMP daily Avoid nephrotoxins Remain off diuretics. (2) Hyponatremia I reviewed all her labs, VS, and I's and O's today. Na improved after I changed iv fluids to NS Plan: As above in #1 Follow BMP daily Chronic or resolved problems: (3)Metaphyseal fracture of bone of right lower extremity Assessment/Plan: She had more pain in the R knee today Plan: Continue with pain management, orthopedic equipment to the knee that she can tolerate, and continue working with PT and OT (4) Frequent falls at home Impression: Per pt's story she slipped and fell on some milk this time. Has a history of frequent falls, prior back pain, ankle pain. History of back and ankle surgery. Xrays obtained in ED were negative for fractures. PT noticed that she was only toe touching on the right leg, could not bear weight because her right knee hurt. She does not have aortic stenosis, orthostatic hypotension, arrhythmia, anemia that would cause these frequent falls. Plan: PT/OT working w her. She is ordered to have weight bearing as tolerated. (5) History of seizures Impression: Per EMR was on keppra several admissions ago. Has presented to ED with delirium, etiology uncertain, UTI, dehydration, post-ictal. Plan: continue keppra (6) Cognitive impairment Impression: Last recent hospitalization 1 week ago had a SLUMS test done by OT. Score 11/30, indicating severly cognitively impaired, staff was not sure if she was actively participating to make that an accurate score. The impression we got was that she was irritated with all of this and was throwing us out of the room and did not want to cooperate with questions. 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 It is our wait for placement that keeps her here. Labs: Sodium 138. Potassium 5.0. BUN 22, creatinine 1.2. (7) Coronary artery disease Impression: hx of [place] Plan: continue therestarted b-briseida and baby aspirin daily, restarted her statin therapy Qualifiers: Coronary Disease-Associated Artery/Lesion type: [place] artery [place] vs. transplanted heart: [place] heart Associated angina: without angina Qualified Code(s): I25.10 - Atherosclerotic heart disease of [place] coronary artery without angina pectoris (8) Chronic HFrEF (heart failure with reduced ejection fraction) Impression: EF 35-40% by ECHO in 12/2021 Plan: b-briseida restarted, ARB restarted, restart spironolactone, no volume overload. (9) Altered mental status Impression: Resolved Has had several hospitalizations in past month, etiology felt to be post-ictal, dehydration, infectious Qualifiers: Altered mental status type: disorientation Qualified Code(s): R41.0 - Disorientation, unspecified (10) Rhabdomyolysis Impression: Resolved CK improved after IV fluids, taking good po intake now Qualifiers: Rhabdomyolysis type: non-traumatic Qualified Code(s): M62.82 - Rha bdomyolysis (11) Hypothyroidism Impression: high TSH 7.51 this admission. It is from not being on Synthroid for several days versus week Plan: Synthroid restarted at beginning of this adm, will check free T4, and TSH again in 4-6 weeks. Qualifiers: Hypothyroidism type: unspecified Qualified Code(s): E03.9 - Hypothyroidism, unspecified (12) HTN (hypertension) Impression: History of HTN, has been normotensive this admission Plan: monitor for HTN SBP>140 Qualifiers: Hypertension type: primary hypertension Qualified Code(s): I10 - Essential (primary) hypertension (13) Hx Multiple sclerosis As per Hx (14) Hyperlipidemia Impression: Plan: check HDL, LDL, triglycerides and ordered for the morning Qualifiers: Hyperlipidemia type: unspecified Qualified Code(s): E78.5 - Hyperlipidemia, unspecified (15) Hypernatremia Impression: Resolved (16) Hypokalemia Resolved.
[2022-06-19] MEDS: ATORVASTATIN 40 MG TABLET PO SCH (21:21)
[2022-06-20] MEDS: SODIUM CHLORIDE FLUSH 0.9% 10 ML SYRINGE IVP SCH ×2 (01:00→08:46)
[2022-06-20] MEDS: oxyCODONE 5 MG TABLET PO PRN ×3 (02:39→14:11)
[2022-06-20] MEDS: LEVOTHYROXINE 25 MCG TABLET PO SCH (06:29)
[2022-06-20] MEDS: ACETAMINOPHEN 325 MG TABLET PO PRN ×2 (06:29→12:07)
[2022-06-20] MEDS: polyethylene glycoL 3350 17 GM PACKET PO SCH (08:41)
[2022-06-20] MEDS: ENOXAPARIN 40 MG/0.4 ML SYRINGE SUBQ SCH (08:42)
[2022-06-20] MEDS: levETIRAcetam 250 MG TABLET PO SCH (08:42)
[2022-06-20] MEDS: CHOLECALCIFEROL 25 MCG TABLET PO SCH (08:43)
[2022-06-20] MEDS: LOSARTAN 50 MG TABLET PO SCH (08:44)
[2022-06-20] MEDS: DICLOFENAC SODIUM DR 75 MG TABLET PO SCH (08:44)
[2022-06-20] MEDS: BACLOFEN 10 MG TABLET PO SCH (08:45)
[2022-06-20] MEDS: SENNA 8.6 MG TABLET PO SCH (08:45)
[2022-06-20] MEDS: ASPIRIN EC 81 MG TABLET PO SCH (08:45)
[2022-06-20] MEDS: DOCUSATE SODIUM 250 MG CAPSULE PO SCH (08:45)
[2022-06-20] MEDS: carvediloL 3.125 MG TABLET PO SCH (08:46)
[2022-06-20] MEDS: FLUDROCORTISONE 0.1 MG TABLET PO SCH (08:46)
[2022-06-20 09:20] VITALS: BP 123/66
[2022-06-20 09:35] LABS: CALCIUM 9.1 mg/dL (8.5-10.3); CREATININE 1.2 mg/dL (0.4-1.0); POTASSIUM 4.7 mmol/L (3.5-5.0)
[2022-06-20] MEDS: NYSTATIN POWDER 15 GM TOP SCH (10:08)
[2022-06-20] MEDS: ZINC OXIDE 20% OINT 30 GM TUBE TOP PRN (10:08)
--- NOTE | 2022-06-20 10:59 | Discharge Plan ---
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 Unclear if this is due to history of substance abuse, or trauma. Because of that it has led to multiple, multiple admissions for accidental substance overdose. This is included [id number] Sudafed, other antihistamines. She has had inappropriate use of prescription opioids. She is impulsive, poor judgment. This is all resulted in rhabdomyolysis, acute kidney injury, UTIs, etc. With this most recent admission the patient is finally agreed to her long-term placement. She is come to understand that it is just not safe for her to return to her own apartment and trying to take care of her self. This day, which st arted May 14, was because she was found on her kitchen floor. She said that she had slipped on some milk and laid there all night long. She had mild rhabdomyolysis which was taken care of by IV fluids. A metaphyseal fracture of the right distal femur was taken care of by orthopedics. The splint has caused a superficial skin breakdown over the stewart. She is now with a hinged knee brace and is continuing with physical and Occupational Therapy with toe-touch weightbearing to right lower extremity. She also had hyponatremia which improved. She has chronic heart failure with preserved ejection fraction that was stable. Plan of Treatment: She is now transition [facility] - SNF / [facility] Transition Orders Admit to (Facility): [facility] Under the care of (Name): Donovan Markham Discharge Diagnosis: 1. Metabolic encephalopathy on admission, resolved 2. Chronic cognitive deficits 3. Frequent falls at home 4. History of seizures 5. Coronary artery disease history 6. Hypothyroidism 7. Rhabdomyolysis resolved 8. Chronic heart failure with preserved ejection fraction 9. Hyperlipidemia 10. Hypertension 12. Hypokalemia resolved 13. Acute on chronic kidney injury 14. Distal metaphyseal femur fracture, right leg 15. Stewart ulcer secondary to splint on leg rubbing skin 16. Jessie intertrigo 17. Ezcema Medicare Certification Statement: I certify that [facility] is medically necessary on a continuing basis for any of the conditions for which she/he is receiving care during hospitalization. Notify PCP of admission and forward orders to primary provider for signature. Weight on admission and: Monthly Other Notification Orders: Call PCP immediately if patient develops dyspnea, chest pain/tightness or edema. Additional Bowel Program Orders: If no BM after 2 days, nurse may give M.O.M. 30ml PO PRN and/or ducolax Supp 1 FL and/or MACRINA 250mg P.O., and/or senna 1-2 tabs PO. On day 3 nurse may give repeat above order until residents constipation is resolved. Annual Influenza Vaccine (between Jan 04 and August 03): Yes Two-step PPD per [facility] [phone] or approved exception documents: Yes Treatments & Other Orders: She is getting zinc cream and nystatin cream. The zinc is a barrier to help her with the discomfort of her eczema. The nystatin is for the intertrigo underneath her breast. Lab Tests or X-ray Orders: BMP in 1 week Orthopedic Orders: Weightbearing as tolerated to right lower extremity with front wheeled walker and 1 assist, hinged knee brace should remain in place when weight bearing. Immobilization: Continue wearing hinged knee brace until orthopedic follow-up. Site for correct location of hinged knee brace marked with skin marker on 06/20/2022. Brace should remain in place at all times except to remove for range of motion exercises. Hinges can be unlocked from 0-120 degrees of flexion. Follow-up: Follow-up with orthopedic clinic at [facility] within 1-2 weeks of discharge, patient should see Dr. Garcia. Stewart Ulcer should be treated with a sterile occlusive dressing such as Duoderm. Most recent dressing change was 9:00am on 06/20/2022. Duoderm can be changed every 3-4 days unless saturated Medication Orders: PLEASE REFER TO THE DISCHARGE MEDICATION LIST. - Medications New Prescriptions: oxyCODONE [Roxicodone] 5 mg PO Q4HR PRN #30 tab PRN Reason: Pain 5 to 7 - Diet Type: Geriatric Texture: Regular Liquids: Thin May have monthly special meal: Yes - Therapies | Activity Therapy: Evaluation | Treat if indicated: PT, OT Rehabilitation Potential: Maximize functional status Activity: Activity as Tolerated Weight Bearing: Partial Weight Assistance Devices: Walker Additional Instructions: Follow Up: Orthopedics, Dr. Garcia, in 2 weeks"
--- NOTE | 2022-06-20 11:52 | PROVIDER PROGRESS NOTE ---
Subjective - General Admit Date: 05/14/22 - Other Other Information/Narrative: Alert, seated semirecumbent in bed Patient asking for pain medications She denies pain in her right leg, she states she is sore She no acute concerns or questions Objective - Patient Data Reviewed Vital Signs: Yes Vital Signs: Vital Signs x48h Temp Pulse Resp BP Pulse Ox 06/20/22 09:00 36.5 C 81 18 123/66 94 Intake & Output: Intake and Output Totals x24h 06/18/22 06/19/22 06/20/22 23:59 23:59 23:59 Intake Total 1998.044 560 290 Output Total 3800 500 850 Balance -1801.956 60 -560 - Lab Results Lab Results: 06/16/22 07:45 06/20/22 09:20 Other Lab Results: Lab Results x24hrs 06/20/22 06/19/22 Range/Units 09:20 16:00 Sodium 140 (135-145) mmol/L Potassium 4.7 (3.5-5.0) mmol/L Chloride 107 (101-111) mmol/L Carbon Dioxide 24 (21-32) mmol/L Anion Gap 9.0 (6-13) BUN 23 H (6-20) mg/dL Creatinine 1.2 H (0.4-1.0) mg/dL Estimated GFR (MDRD) 45 L (>89) Glucose 113 H (70-100) mg/dL Calcium 9.1 (8.5-10.3) mg/dL SARS-CoV-2 (PCR) NOT DETECTED - Current Medications Current Medications: Current Medications Generic Name Dose Route Start Last Admin Trade Name Eliza PRN Reason Stop Dose Admin Acetaminophen 650 mg 05/14/22 15:41 06/20/22 06:29 Acetaminophen 325 Mg Tablet PO 650 mg Q4HR PRN Administration Pain 1 to 4, or Fever Aspirin 81 mg 05/16/22 09:00 06/20/22 08:45 Aspirin Ec 81 Mg Tablet PO 81 mg DAILY JIN Administration Atorvastatin Calcium 40 mg 05/29/22 21:00 06/19/22 21:21 Atorvastatin 40 Mg Tablet PO 40 mg QPM JIN Administration Baclofen 30 mg 05/15/22 21:00 06/20/22 08:45 Baclofen 10 Mg Tablet PO 30 mg BID JIN Administration Carboxymethylcellulose 1 drops 05/21/22 17:59 05/21/22 19:07 Carboxymethylcellulose Ophth Drops EACHEYE 1 drops PRN PRN Administration Dry Eye Carvedilol 3.125 mg 06/12/22 09:24 06/20/22 08:46 Carvedilol 3.125 Mg Tablet PO 3.125 mg BID JIN Administration Cholecalciferol 50 mcg 05/21/22 12:00 06/20/22 08:43 Cholecalciferol 25 Mcg Tablet PO 50 mcg DAILY JIN Administration Diclofenac Sodium 75 mg 05/18/22 21:00 06/20/22 08:[address] 75 Mg Tablet PO 75 mg BID JIN Administration Docusate Sodium 250 - 500 mg 05/18/22 09:00 06/20/22 08:45 Docusate Sodium 250 Mg Capsule PO 500 mg DAILY JIN Administration Enoxaparin Sodium 40 mg 05/15/22 09:00 06/20/22 08:42 Enoxaparin 40 Mg/0.4 Ml Syringe SUBQ 40 mg DAILY JIN Administration Fludrocortisone Acetate 0.1 mg 06/18/22 12:00 06/20/22 08:46 Fludrocortisone 0.1 Mg Tablet PO 06/21/22 00:01 0.1 mg DAILY JIN Administration Fluticasone Propionate 1 sprays 05/15/22 08:38 06/19/22 02:11 Fluticasone Nasal [place] WILLIE 1 sprays BID PRN Administration Nasal Congestion Levetiracetam 500 mg 05/15/22 21:00 06/20/22 08:42 Levetiracetam 250 Mg Tablet PO 500 mg BID JIN Administration Levothyroxine Sodium 50 mcg 05/16/22 07:00 06/20/22 06:29 Levothyroxine 25 Mcg Tablet PO 50 mcg QDAC JIN Administration Losartan Potassium 12.5 mg 06/12/22 09:24 06/20/22 08:44 Losartan 50 Mg Tablet PO 12.5 mg DAILY JIN Administration Multi-Ingredient Ointment 1 applic 05/29/22 16:07 06/20/22 10:08 Zinc Oxide 20% Oint 30 Gm Tube TOP 1 applic PRN PRN Administration Skin Care Nystatin 1 applic 05/15/22 21:00 06/20/22 10:08 Nystatin Powder 15 Gm TOP 1 applic BID JIN Administration Oxycodone HCl 5 mg 05/14/22 15:41 06/20/22 10:07 Oxycodone 5 Mg Tablet PO 5 mg Q4HR PRN Administration Pain 5 to 7 Polyethylene Glycol 17 gm 05/17/22 12:00 06/20/22 08:41 Polyethylene Glycol 3350 17 Gm Packet PO 17 gm DAILY JIN Administration Senna 8.6 - 17.2 mg 05/18/22 09:00 06/20/22 08:45 Senna 8.6 Mg Tablet PO 17.2 mg DAILY JIN Administration Sodium Chloride 10 ml 06/06/22 17:15 06/12/22 08:38 Sodium Chloride Flush 0.9% 10 Ml Syringe IVP 10 ml PRN PRN Administration PER PHYSICIAN ORDER Sodium Chloride 10 ml 06/12/22 17:00 06/20/22 08:46 Sodium Chloride Flush 0.9% 10 Ml Syringe IVP 10 ml 0100,0900,1700 JIN Administration - Physical Exam Comments/Other: Alert, oriented to person Right lower extremity remains in Splint, splint is intact. Slight erythema about the distalmost aspect in the anterior stewart. No skin breakdown at the edge of the splint. Knee remains in slight flexion. Splint was removed, skin shows breakdown about 2 and half centimeters in merritt meter about the anterior medial right stewart. No communication with the bone. Slight erythema about the proximal aspect of the pressure ulcer. She is tender to palpation about the ulcer. There is 1+ edema about her right foot without warmth or erythema. Right knee is nontender to palpation about the medial and lateral femoral condyle as well as the patella. Limited range of motion however she has no pain with gentle cycling of the right knee. No pain with hip motion including flexion, internal and external rotation and abduction. Impression/Plan - Problem List Problem List: 66-year-old female who presented to the emergency department on 05/14/2022 after being found down after a fall. She was admitted for metabolic encephalopathy, acute kidney injury and frequent falls. On day 8 of admission she was found to have a minimally displaced supracondylar fracture of the right distal femur. Orthopedics is following the patient for non-operative management of non displaced supracondylar fracture. She has tolerated a splint well but found to have a pressure ulcer on 06/20/2022 when splint was removed. She was transitioned to a hinged knee brace which was well tolerated. She has continued knee stiffness but decreased pain to the right leg fracture. Plan: Weightbearing status: Weightbearing as tolerated to right lower extremity with front wheeled walker and 1 assist, hinged knee brace should remain in place when weight bearing Immobilization: Continue wearing hinged knee brace until orthopedic follow-up. Site for correct location of hinged knee brace marked with skin marker on 06/20/2022 Brace should remain in place at all times except to remove for range of motion exercises. Hinges can be unlocked from 0-120 degrees of flexion. Follow-up: Follow-up with orthopedic clinic at [facility] within 1-2 weeks of discharge, patient should see Dr. Garcia. Ulcer should be treated with a sterile occlusive dressing such as Duoderm. Most recent dressing change was 9:00am on 06/20/2022. Duoderm can be changed every 3-4 days unless saturated Physical therapy and occupational therapy should continue at senior living facility DVT prophylaxis recommended while mobility is limited Pain control per hospitalist
--- NOTE | 2022-07-04 15:34 | DISCHARGE SUMMARY ---
Discharge Summary Admit Date: 05/14/22 Discharge Date: 06/20/22 Discharging Provider: Kassie Marquez MD Code Status: Do Not Attempt Resuscitation Condition at Discharge: Fair Discharge Disposition: 01 Home, Self Care - DIAGNOSES Discharge Diagnoses with Status of Each Condition: 1. Metabolic encephalopathy on admission, resolved 2. Chronic cognitive deficits 3. Frequent falls at home 4. History of seizures 5. Coronary artery disease history 6. Hypothyroidism 7. Rhabdomyolysis resolved 8. Chronic heart failure with preserved ejection fraction 9. Hyperlipidemia 10. Hypertension 12. Hypokalemia resolved 13. Acute on chronic kidney injury 14. Distal metaphyseal femur fracture, right leg 15. Stewart ulcer secondary to splint on leg rubbing skin 16. Jessie intertrigo 17. Ezcema - HPI History of Present Illness: 66 yo female sitting in bed eating a sandwich. When asked why she is here she states she slept all night on the kitchen floor after slipping on some milk and cereal, then the ambulance came the next morning and got her and took her to the hospital. She lives alone. She denies feeling ill prior to falling. She is oriented to location [facility], she is not oriented to time. She denies having fever, chills. Does have cough, implying this is normal for her. Further questioning was not fruitful as Alondra stopped answering question said, "get out." - Past Medical History Cardiovascular: reports: Hypertension, Coronary artery disease, ID Respiratory: reports: None Neuro: reports: Seizure disorder, Multiple sclerosis Endocrine/Autoimmune: reports: Other GI: reports: None HEAD OF ADVERTISING: reports: Other : reports: Chronic bladder infection HEENT: reports: None Psych: reports: Depression, ADD/ADHD Musculoskeletal: reports: Chronic back pain, Other Derm: reports: Other MRSA Hx?: Yes - Past Surgical History Ortho: reports: Spine surgery /HEAD OF ADVERTISING: reports: Hysterectomy Cardiovascular: reports: Coronary stent, Cardiac catheterization - CONSULTS | PROCEDURES Procedures: Foot x-ray with osteoarthritis and no acute foot abnormality. Wrist x-ray with mild left wrist osteoarthritis, no gross acute fracture. Chest x-ray without acute cardiopulmonary abnormality Head CT without acute abnormality. Stable from prior CTs for all of 2021 and 2022. Visualized sinuses are clear. Lumbar spine CT has disc disease, neuroforaminal narrowing because of disc disease and intact hardware from L4-S1. Multilevel lower lumbar degenerative changes seen. Levoconvex scoliotic curvature is seen. All the above films were done on May 14. On May 18 she underwent a knee x-ray and it was a suspicion of traumatic injury to the medial right knee given the pattern of mild distortion of the medial femoral condyle and medial tibial plateau. She has moderately severe medial compartment degenerative knee joint arthritis. A repeat knee x-ray was done May 29. She had stable position of distal femoral metaphyseal fracture fragments. Joint was in normal alignment. A lower extremity CT was done May 21 and she had a comminuted distal femoral fracture involving the diametaphyseal region and metaphyseal region. Osteopenia. Probable ACL tear/internal derangement of the knee. - HOSPITAL COURSE Hospital Course: This is 1 of many, many, many admissions for metabolic encephalopathy in this unfortunate female over the last 2 to 3 years. Some of these admissions were related to recurrent UTIs. Some were related to accidental overdose of multiple grfu-ngn-abepkvu medications. There were several admissions for accidental overdose of Sudafed where she just wanted to take that medication. We believe that she has some type of cognitive deficit that resulted in impulsive behavior. She almost has a frontotemporal memory loss. In any case, her metabolic encephalopathy quickly resolved with this admission. She finally agreed that it was not safe for her to go home since she has had so many readmissions. She also had a history of frequent falls at home for unknown reason that she could not say why. With this admission she could not even tell is why she ended up on the kitchen floor. Rhabdomyolysis resolved with IV fluids. We made sure that we do not fluid overload alert and her chronic heart failure remained stable. All of her usual home medications with regards to hypertension, hyperlipidemia were given to her. Acute kidney failure resolved and she returned to baseline kidney injury. She continued to complain of right leg pain and she was found to have a distal metaphyseal femur fracture of the right leg. She was not a surgical candidate and orthopedics did consult. She was not very motivated to do rehab. She intermittently worked with physical therapy. Some days were good days and some days were bad days. Her main limiting factor was the right knee pain. She did not tolerate the knee brace for very long. She also developed a stewart ulcer secondary to the knee brace. Jessie intertrigo was treated with nystatin. She has chronic eczema that is unchanged. Although she has a history of seizures she did not have any seizures here and her seizure medications were resumed. We finally found placement for her. It took quite a bit of time. At discharge temperature was 36.5, heart rate 81, blood pressure 123/66, respirations 18, and 94% on room air. She is a 5 foot 2 inch white female, 70.5 kg. Unfortunately was Zia is always disheveled even after a bath and grooming with our aide. She speaks with a loud voice almost a severe deaf. And when you ask her why she is yelling she stops, will look at you and go and say "I am not yelling". She really has no idea. Hence the frontotemporal memory loss. But she will follow commands. Is alert and oriented to place, self, and why she is here. Her only deficit is the right knee where she does not really want to weight-bear because of pain. Neck is supple. Lungs are clear. No crackles or rhonchi. She has a regular rate and rhythm. The abdomen is obese, soft, nontender. Last bowel movement was June 18. They occur almost daily or every other day. She is incontinent of urine and will wear a a pad with a brief period she has eczema. Resolving Jessie intertrigo underneath her breast and intertriginous folds. 1+ edema of the right leg where her fracture was involved. And a superficial skin loss where the brace was rubbing against her stewart. She is not very motivated to exercise or be ambulatory. Greater than 30 minutes was spent coordinating discharge - ALLERGIES Allergies/Adverse Reactions: Allergies Allergy/AdvReac Type Severity Reaction Status Date / Time No Known Drug Allergies Allergy Verified 05/14/22 11:44 - MEDICATIONS Home Medications: Ambulatory Orders Medication Instructions Recorded Confirmed Atorvastatin [Lipitor] 40 mg PO QPM #0 12/21/20 05/14/22 Losartan Potassium 12.5 mg PO DAILY 04/03/22 05/14/22 Fluticasone [Flonase] 1 sprays WILLIE BID PRN 04/20/22 05/14/22 Acetaminophen [Acetaminophen Extra 1,000 mg PO TID PRN 04/24/22 05/14/22 Strength] Levetiracetam [Keppra] 500 mg PO BID 05/15/22 05/15/22 Levothyroxine Sodium 50 mcg PO DAILY 05/15/22 05/15/22 Aspirin EC [Ecotrin] 81 mg PO DAILY tab 06/20/22 Atorvastatin [Lipitor] 40 mg PO QPM tab 06/20/22 Baclofen [Lioresal] 30 mg PO BID tab 06/20/22 Carboxymethylcellulose 1% Opht 1 drops EACHEYE PRN PRN ml 06/20/22 [Refresh 1% Ophth Drops] Cholecalciferol [Vitamin D3] 50 mcg PO DAILY tab 06/20/[address] [Voltaren] 1 tab PO BID PRN #0 06/20/22 05/14/22 Docusate Sodium 250Mg Capsule 250 - 500 mg PO DAILY cap 06/20/22 [Colace 250Mg Capsule] Fludrocortisone [Florinef] 0.1 mg PO DAILY tab 06/20/22 Nystatin [Nystop] 1 applic TOP BID each 06/20/22 Zinc Oxide 20% Oint [Zinc Oxide] 1 applic TOP PRN PRN each 06/20/22 carvediloL [Coreg] 3.125 mg PO BID #0 06/20/22 05/14/22 oxyCODONE [Roxicodone] 5 mg PO Q4HR PRN #30 tab 06/20/22 - LABS Result Diagrams: 06/16/22 07:45 06/20/22 09:20
== END 2022-06-20 15:00 | disposition home or self-care (01) ==
LOC: EDUNIT# → ED 11:32 → MS2 15:42
PROVIDERS: ADMIT Specialist; ATTEND Specialist
DX: G93.41 Metabolic encephalopathy (principal); R41.89 Other symptoms and signs involving cognitive functions and awareness; Z91.81 History of falling; I25.10 Atherosclerotic heart disease of native coronary artery without angina pectoris; G40.909 Epilepsy, unspecified, not intractable, without status epilepticus; E03.9 Hypothyroidism, unspecified; M62.82 Rhabdomyolysis; I13.0 Hypertensive heart and chronic kidney disease with heart failure and stage 1 through stage 4 chronic kidney disease, or unspecified chronic kidney disease; I50.32 Chronic diastolic (congestive) heart failure; N18.9 Chronic kidney disease, unspecified; E78.5 Hyperlipidemia, unspecified; E87.6 Hypokalemia; N17.9 Acute kidney failure, unspecified; S72.401A Unspecified fracture of lower end of right femur, initial encounter for closed fracture; W18.30XA Fall on same level, unspecified, initial encounter; Y92.000 Kitchen of unspecified non-institutional (private) residence as the place of occurrence of the external cause; L97.819 Non-pressure chronic ulcer of other part of right lower leg with unspecified severity; L30.4 Erythema intertrigo; L30.9 Dermatitis, unspecified; G35 Multiple sclerosis; I25.2 Old myocardial infarction; F90.9 Attention-deficit hyperactivity disorder, unspecified type; F32.A Depression, unspecified; M19.032 Primary osteoarthritis, left wrist; M51.36 Other intervertebral disc degeneration, lumbar region; M17.11 Unilateral primary osteoarthritis, right knee; M85.861 Other specified disorders of bone density and structure, right lower leg; H91.90 Unspecified hearing loss, unspecified ear; F17.200 Nicotine dependence, unspecified, uncomplicated; D72.829 Elevated white blood cell count, unspecified; M19.071 Primary osteoarthritis, right ankle and foot; E87.0 Hyperosmolality and hypernatremia
CPT/HCPCS: 36415; 51701; 70450; 71045; 72131; 73110; 73560; 73562; 73630; 73700; 80048; 80053; 80061; 80306; 81001; 82140; 82533; 82550; 83516; 83605; 83690; 83880; 84132; 84443; 85025; 86140; 86225; 86235; 87635; 96360; 96361; 96372; 97010; 97162; 97166; 97530; 99285; A9270; G0378; G0480; J1650; 80320; 81003; 82565; 83721; 84520; 87086

== ENCOUNTER 2022-06-28 11:10 | Outpatient (CLI) | payer MEDICARE, MEDICAID ==
--- NOTE | 2022-06-28 14:26 | XRAY Report ---
PROCEDURE: Knee 3 View RT INDICATIONS: RIGHT DISTAL FEMUR FRACTURE TECHNIQUE: 4 views of the right knee(s) were acquired. COMPARISON: Plain films dated 05/29/2022 FINDINGS: Bones: There appears to be increased displacement and angulation of the distal femoral fracture. Soft tissues: No joint effusion. No suspicious soft tissue calcifications. IMPRESSION: Increased displacement and angulation of the distal femoral fracture. Reviewed by: Rosa Greer MD on 06/28/2022 2:25 PM PST Approved by: Rosa Greer MD on 06/28/2022 2:25 PM PST Station ID: [id number]
== END 2022-06-28 11:11 | disposition home or self-care (01) ==
LOC: DI.WOS 11:10
PROVIDERS: ATTEND Orthopaedic Surgery
DX: S72.401A Unspecified fracture of lower end of right femur, initial encounter for closed fracture (principal)

== ENCOUNTER 2022-06-29 13:29 | Outpatient (CLI) | payer MEDICARE, MEDICAID ==
[2022-06-29 14:04] LABS: CALCIUM 9.4 mg/dL (8.5-10.3); CREATININE 0.9 mg/dL (0.4-1.0); POTASSIUM 4.1 mmol/L (3.5-5.0)
== END 2022-06-29 13:30 | disposition home or self-care (01) ==
LOC: LAB.R 13:29
DX: I10 Essential (primary) hypertension (principal)
CPT/HCPCS: 80048

== ENCOUNTER 2022-07-01 07:00 | Outpatient (CLI) | payer MEDICARE, MEDICAID ==
[2022-07-01 07:36] LABS: BASOPHILS # (AUTO) 0.1 10^3/uL (0.0-0.1); BASOPHILS % (AUTO) 1.2 %; EOSINOPHILS # (AUTO) 0.4 10^3/uL (0.0-0.7); EOSINOPHILS % (AUTO) 4.5 %; HCT - HEMATOCRIT 30.8 % (37.0-47.0); HGB - HEMOGLOBIN 9.7 g/dL (12.0-16.0); LYMPHOCYTES # (AUTO) 2.9 10^3/uL (1.5-3.5); LYMPHOCYTES % (AUTO) 31.3 %; MEAN CORPUSCULAR HEMOGLOBIN 28.5 pg (27.0-31.0); MEAN CORPUSCULAR HGB CONC 31.5 g/dL (32.0-36.0); MEAN CORPUSCULAR VOLUME 90.6 fL (81.0-99.0); MEAN PLATELET VOLUME 10.5 fL (7.9-10.8); MONOCYTES # (AUTO) 0.9 10^3/uL (0.0-1.0); MONOCYTES % (AUTO) 9.1 %; NEUTROPHILS % (AUTO) 53.7 %; PLT - PLATELET COUNT 360 10^3/uL (130-450); RED CELL DISTRIBUTION WIDTH 14.8 % (12.0-15.0); WHITE BLOOD COUNT 9.3 x10^3/uL (4.8-10.8)
[2022-07-01 08:01] LABS: ALBUMIN 3.3 g/dL (3.2-5.5); ALBUMIN/GLOBULIN RATIO 0.9 (1.0-2.2); BILIRUBIN,TOTAL 0.4 mg/dL (0.2-1.0); CALCIUM 9.3 mg/dL (8.5-10.3); POTASSIUM 3.6 mmol/L (3.5-5.0)
== END 2022-07-01 23:59 | disposition home or self-care (01) ==
LOC: LAB.R 07:00
DX: N18.9 Chronic kidney disease, unspecified (principal); I50.32 Chronic diastolic (congestive) heart failure; G40.89 Other seizures
CPT/HCPCS: 80053; 80177; 85025

== ENCOUNTER 2022-08-02 08:00 | Outpatient (CLI) | payer MEDICARE, MEDICAID ==
--- NOTE | 2022-08-02 11:33 | XRAY Report ---
PROCEDURE: Knee 3 View RT INDICATIONS: RIGHT DISTAL FEMUR FRACTURE TECHNIQUE: 3 views of the right knee(s) were acquired. COMPARISON: 06/28/2022 FINDINGS: Bones: No significant change in appearance of a impacted angulated distal femoral diametaphyseal fra cture. No new fractures or dislocations. Soft tissues: No joint effusion. No suspicious soft tissue calcifications. IMPRESSION: No significant change in appearance of distal femoral fracture. Reviewed by: Dirk Miranda MD on 08/02/2022 11:32 AM PDT Approved by: Dirk Miranda MD on 08/02/2022 11:32 AM PDT Station ID: [id number]
== END 2022-08-02 23:59 | disposition home or self-care (01) ==
LOC: DI.WOS 08:00
PROVIDERS: ATTEND Orthopaedic Surgery
DX: S72.451D Displaced supracondylar fracture without intracondylar extension of lower end of right femur, subsequent encounter for closed fracture with routine healing (principal)

== ENCOUNTER 2022-08-16 18:24 | Outpatient (CLI) | payer MEDICARE, MEDICAID | END 2022-08-16 23:59 | disposition critical access hospital (66) | LOC: EMS 18:24 | DX: M79.661 Pain in right lower leg (principal); Z98.890 Other specified postprocedural states; R45.1 Restlessness and agitation; Z74.1 Need for assistance with personal care; Z74.09 Other reduced mobility; Z91.81 History of falling | CPT/HCPCS: A0425; A0429 ==

== ENCOUNTER 2022-08-16 18:47 | Emergency (ER) | payer MEDICARE, MEDICAID ==
[2022-08-16] MEDS ORDERED: ACETAMINOPHEN 325 MG TABLET PO STA (19:08)
[2022-08-16] MEDS ORDERED: oxyCODONE 5 MG TABLET PO STA (21:00)
[2022-08-16] MEDS ORDERED: NYSTATIN CREAM 15 GM TUBE TOP STA (21:01)
--- NOTE | 2022-08-16 21:49 | ED Physician Documentation ---
History of Present Illness - Stated complaint Stated Complaint: FALL - Chief complaint Chief Complaint: General - History obtained from History obtained from: Patient, EMS - History of Present Illness Pain level max: 7 Pain level now: 5 - Additonal information Additional information: 66-year-old female comes in by EMS stating that she cannot take care of herself at home. She states that she has chronic leg pain and was at [facility] for physical therapy and rehab but left 3 days ago when she signed herself out. She states that her friends have been helping to care for her but she does not feel like she can take care of herself anymore and wants to go back to a nursing facility/rehab. No recent falls. No fevers. No abdominal pain. No vomiting. She is currently undergoing treatment for a fungal rash on her back as well. 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: Other : Chronic bladder infection HEENT: None Psych: Depression, ADD/ADHD Musculoskeletal: Chronic back pain, Other Derm: Other - Past Surgical History Past Surgical History: Yes Ortho: Spine surgery /ROAD INSPECTOR: Hysterectomy Cardiovascular: Coronary stent, Cardiac catheterization - Present Medications Home Medications: Ambulatory Orders Medication Instructions Recorded Confirmed Losartan Potassium 25 mg PO DAILY 04/03/22 05/14/22 Fluticasone [Flonase] 1 sprays WILLIE BID PRN 04/20/22 05/14/22 Acetaminophen [Acetaminophen Extra 1,000 mg PO TID PRN 04/24/22 05/14/22 Strength] Levetiracetam [Keppra] 500 mg PO BID 05/15/22 05/15/22 Levothyroxine Sodium 50 mcg PO DAILY 05/15/22 05/15/22 Aspirin EC [Ecotrin] 81 mg PO DAILY tab 06/20/22 Atorvastatin [Lipitor] 40 mg PO QPM tab 06/20/22 Nystatin [Nystop] 1 applic TOP BID each 06/20/22 carvediloL [Coreg] 3.125 mg PO BID #0 06/20/22 05/14/22 Baclofen [Lioresal] 20 mg PO QPM 08/16/22 Diclofenac Sodium [Voltaren 20 gm TP BID 08/16/22 08/16/22 Arthritis Pain] Spironolactone [Aldactone] 25 mg PO DAILY 08/16/22 08/16/22 - Allergies Allergies/Adverse Reactions: Allergies Allergy/AdvReac Type Severity Reaction Status Date / Time No Known Drug Allergies Allergy Verified 08/16/22 18:55 - Social History Does the pt smoke?: Yes Smoking Status: Current every day smoker Does the pt drink ETOH?: No Does the pt have substance abuse?: No - Immunizations Immunizations are current?: No - POLST Patient has POLST: No POLST Status: Full Code PD ED PE NORMAL - Vitals Vital signs reviewed: Yes - General General: Alert and oriented X 3, No acute distress, Well developed/nourished - HEENT HEENT: Atraumatic, Moist mucous membranes - Neck Neck: Supple, no meningeal sign - Cardiac Cardiac: RRR - Respiratory Respiratory: No respiratory distress, Clear bilaterally - Abdomen Abdomen: Soft, Non tender, Non distended - Derm Derm: Warm and dry - Extremities Extremities: Other (Large rash to the back, erythematous with satellite lesions. No drainage.) - Neuro Neuro: Alert and oriented X 3 - Psych Psych: Normal mood, Normal affect Results - Vitals Vitals: Vital Signs - 24 hr 08/16/22 08/16/22 18:51 21:23 Temperature 37.1 C Heart Rate 79 71 Respiratory 19 16 Rate Blood Pressure 127/54 L 114/66 O2 Saturation 98 97 Oxygen O2 Source [With Activity] Room air O2 Source [Without Activity] Room air O2 Source Room air PD Medical Decision Making - ED course Complexity details: considered differential, d/w patient ED course: Patient with a candidal skin rash. We will treat with topical nystatin. Pain well controlled here. Social work consult placed for the morning to see if she can go back to a facility for rehab. Patient will be signed out to the oncoming emergency department physician. This document was made in part using voice recognition software. While efforts are made to proofread this document, sound alike and grammatical errors may occur. Departure - Departure Clinical Impression: Hx of multiple sclerosis, Candidal skin infection Chronic leg pain Qualifiers: Laterality: right Qualified Code(s): M79.604 - Pain in right leg; G89.29 - Other chronic pain Condition: Good
[2022-08-17] MEDS ORDERED: oxyCODONE 5 MG TABLET PO STA ×3 (05:30→17:16)
[2022-08-17] MEDS ORDERED: ACETAMINOPHEN 500 MG TABLET PO STA (17:16)
--- NOTE | 2022-08-17 18:09 | ED Physician Documentation ---
ED Addendum - Addendum Addendum: 08/17/22 18:08 I was asked by the nurse to put in her scheduled meds. These were ordered [facility] her antihypertensives were held as reportedly was not taking them at home and she is not hypertensive here and actually had a borderline blood pressure this morning of 97/68. She continues to board in the emergency department pending placement.
[2022-08-17] MEDS: BACLOFEN 10 MG TABLET PO SCH (21:08)
[2022-08-17] MEDS: levETIRAcetam 250 MG TABLET PO SCH (21:08)
[2022-08-17] MEDS: oxyCODONE 5 MG TABLET PO PRN (21:50)
[2022-08-17 22:54] LABS: BASOPHILS # (AUTO) 0.1 10^3/uL (0.0-0.1); BASOPHILS % (AUTO) 1.7 %; EOSINOPHILS % (AUTO) 0.1 %; HCT - HEMATOCRIT 36.1 % (37.0-47.0); HGB - HEMOGLOBIN 11.2 g/dL (12.0-16.0); LYMPHOCYTES # (AUTO) 3.3 10^3/uL (1.5-3.5); LYMPHOCYTES % (AUTO) 39.4 %; MEAN CORPUSCULAR HEMOGLOBIN 27.2 pg (27.0-31.0); MEAN CORPUSCULAR VOLUME 87.6 fL (81.0-99.0); MONOCYTES # (AUTO) 0.8 10^3/uL (0.0-1.0); MONOCYTES % (AUTO) 9.9 %; NEUTROPHILS % (AUTO) 48.5 %; PLT - PLATELET COUNT 347 10^3/uL (130-450); RED BLOOD COUNT 4.12 10^6/uL (4.20-5.40); RED CELL DISTRIBUTION WIDTH 15.1 % (12.0-15.0); WHITE BLOOD COUNT 8.3 x10^3/uL (4.8-10.8)
[2022-08-18 05:44] LABS: CALCIUM 9.2 mg/dL (8.5-10.3); CREATININE 1.2 mg/dL (0.4-1.0); POTASSIUM 3.5 mmol/L (3.5-5.0)
[2022-08-18] MEDS: ACETAMINOPHEN 500 MG TABLET PO PRN ×2 (05:44→17:00)
[2022-08-18] MEDS: oxyCODONE 5 MG TABLET PO PRN ×3 (05:44→17:00)
[2022-08-18] MEDS: PANTOPRAZOLE 40 MG TABLET PO SCH (06:42)
[2022-08-18] MEDS: LEVOTHYROXINE 25 MCG TABLET PO SCH (06:42)
[2022-08-18] MEDS: ATORVASTATIN 40 MG TABLET PO SCH (09:28)
[2022-08-18] MEDS: levETIRAcetam 250 MG TABLET PO SCH ×2 (09:28→22:02)
[2022-08-18] MEDS: BACLOFEN 10 MG TABLET PO SCH (22:02)
[2022-08-19] MEDS: ACETAMINOPHEN 500 MG TABLET PO PRN ×3 (04:48→17:06)
[2022-08-19] MEDS: oxyCODONE 5 MG TABLET PO PRN ×4 (04:49→21:07)
[2022-08-19] MEDS: levETIRAcetam 250 MG TABLET PO SCH ×2 (10:10→21:05)
[2022-08-19] MEDS: ATORVASTATIN 40 MG TABLET PO SCH (10:10)
[2022-08-19] MEDS: PANTOPRAZOLE 40 MG TABLET PO SCH (10:10)
[2022-08-19] MEDS: LEVOTHYROXINE 25 MCG TABLET PO SCH (10:10)
[2022-08-19] MEDS: BACLOFEN 10 MG TABLET PO SCH (21:04)
[2022-08-20] MEDS: oxyCODONE 5 MG TABLET PO PRN ×5 (03:01→22:34)
[2022-08-20] MEDS: PANTOPRAZOLE 40 MG TABLET PO SCH (06:29)
[2022-08-20] MEDS: LEVOTHYROXINE 25 MCG TABLET PO SCH (06:29)
[2022-08-20] MEDS: ACETAMINOPHEN 500 MG TABLET PO PRN ×2 (09:00→18:30)
[2022-08-20] MEDS: ATORVASTATIN 40 MG TABLET PO SCH (09:00)
[2022-08-20] MEDS: levETIRAcetam 250 MG TABLET PO SCH ×2 (09:00→21:37)
--- NOTE | 2022-08-20 15:18 | ED Physician Documentation ---
ED Addendum - Addendum Addendum: 08/20/22 15:18 Patient was signed out to me at change of shift, pending transfer to this today long-term care facility. Social work continues to work with her case to obtain placement for her. The patient's been without complaints today. She has gotten her as needed oxycodone and has had no other acute medical needs. She is signed out to the oncoming emergency physician, continuing to pend disposition.
[2022-08-20] MEDS ORDERED: polyethylene glycoL 3350 17 GM PACKET PO STA (15:43)
[2022-08-20] MEDS: BACLOFEN 10 MG TABLET PO SCH (21:37)
[2022-08-20] MEDS: NYSTATIN POWDER 15 GM TOP SCH (21:37)
[2022-08-21] MEDS: ACETAMINOPHEN 500 MG TABLET PO PRN ×4 (04:23→22:45)
[2022-08-21] MEDS: oxyCODONE 5 MG TABLET PO PRN ×4 (05:12→22:45)
[2022-08-21] MEDS: ATORVASTATIN 40 MG TABLET PO SCH (08:28)
[2022-08-21] MEDS: LEVOTHYROXINE 25 MCG TABLET PO SCH (08:28)
[2022-08-21] MEDS: levETIRAcetam 250 MG TABLET PO SCH ×2 (08:29→20:23)
[2022-08-21] MEDS: PANTOPRAZOLE 40 MG TABLET PO SCH (08:29)
--- NOTE | 2022-08-21 12:00 | ED Physician Documentation ---
ED Addendum - Addendum Addendum: 08/21/22 11:59 I went in to talk with the patient. She is getting physical therapy at this time. She is ambulating on both feet very tenuously and using a walker. There are some mild redness on her gluteal area. No reported problems from nursing staff overnight. Social work states the initial attempt at finding placement was unsuccessful as the place she signed out from prematurely/against advice did not want her back for that reason. Other places were limited. They will expand their search.
[2022-08-21] MEDS: NYSTATIN POWDER 15 GM TOP SCH ×2 (12:57→20:25)
[2022-08-21] MEDS: BACLOFEN 10 MG TABLET PO SCH (20:23)
[2022-08-22] MEDS: PANTOPRAZOLE 40 MG TABLET PO SCH (06:46)
[2022-08-22] MEDS: LEVOTHYROXINE 25 MCG TABLET PO SCH (06:46)
[2022-08-22] MEDS: ATORVASTATIN 40 MG TABLET PO SCH (09:38)
[2022-08-22] MEDS: levETIRAcetam 250 MG TABLET PO SCH ×2 (09:38→20:35)
[2022-08-22] MEDS: NYSTATIN POWDER 15 GM TOP SCH ×2 (09:40→20:35)
[2022-08-22] MEDS: ACETAMINOPHEN 500 MG TABLET PO PRN ×2 (09:47→19:42)
[2022-08-22] MEDS: oxyCODONE 5 MG TABLET PO PRN ×3 (09:48→19:42)
--- NOTE | 2022-08-22 15:31 | ED Physician Documentation ---
ED Addendum - Addendum Addendum: 08/22/22 15:30 The patient was signed out to me at change of shift, continuing to pend long- term care placement. She had no issues overnight or during my shift today. She took her as needed oxycodone and took her other scheduled meds. She had no further requests. The patient will continue to board in the emergency department until long-term care placement is found. She is signed out to the oncoming emergency physician, pending this dispo.
[2022-08-22] MEDS: BACLOFEN 10 MG TABLET PO SCH (20:35)
[2022-08-23] MEDS: oxyCODONE 5 MG TABLET PO PRN ×2 (02:07→09:03)
[2022-08-23] MEDS: ACETAMINOPHEN 500 MG TABLET PO PRN ×2 (02:07→09:03)
[2022-08-23] MEDS: LEVOTHYROXINE 25 MCG TABLET PO SCH (07:06)
[2022-08-23] MEDS: PANTOPRAZOLE 40 MG TABLET PO SCH (07:06)
[2022-08-23] MEDS: ATORVASTATIN 40 MG TABLET PO SCH (09:03)
[2022-08-23] MEDS: levETIRAcetam 250 MG TABLET PO SCH ×2 (09:03→20:31)
[2022-08-23] MEDS: NYSTATIN POWDER 15 GM TOP SCH ×2 (09:03→20:31)
--- NOTE | 2022-08-23 09:53 | ED Physician Documentation ---
ED Addendum - Addendum Addendum: Patient remains boarding in the emergency department awaiting placement. Social work is working on her case. Per RN Chantel, no events overnight or acute issues to address at this time. 08/23/22 09:54 Pt still sleeping. Will allow patient to continue to rest at this time without waking her. PT and OT did come to work with the patient but their session was cut short due to patient becoming increasingly frustrated. PT continues to recommend long- term care placement as she is below her baseline mobility and is not able to care for herself.
[2022-08-23] MEDS: BACLOFEN 10 MG TABLET PO SCH (20:31)
[2022-08-24] MEDS: LEVOTHYROXINE 25 MCG TABLET PO SCH (06:59)
[2022-08-24] MEDS: PANTOPRAZOLE 40 MG TABLET PO SCH (06:59)
--- NOTE | 2022-08-24 09:18 | ED Physician Documentation ---
ED Addendum - Addendum Addendum: 08/24/22 09:18 No acute events overnight. Patient continues to board awaiting placement.
[2022-08-24] MEDS: ATORVASTATIN 40 MG TABLET PO SCH (09:41)
[2022-08-24] MEDS: levETIRAcetam 250 MG TABLET PO SCH ×2 (09:41→21:05)
[2022-08-24] MEDS: oxyCODONE 5 MG TABLET PO PRN ×4 (09:41→23:37)
[2022-08-24] MEDS: ACETAMINOPHEN 500 MG TABLET PO PRN ×2 (09:41→18:33)
[2022-08-24] MEDS: NYSTATIN POWDER 15 GM TOP SCH ×2 (09:41→21:06)
[2022-08-24] MEDS: polyethylene glycoL 3350 17 GM PACKET PO PRN (09:48)
[2022-08-24] MEDS: BACLOFEN 10 MG TABLET PO SCH (21:04)
[2022-08-25] MEDS: LEVOTHYROXINE 25 MCG TABLET PO SCH (06:38)
[2022-08-25] MEDS: PANTOPRAZOLE 40 MG TABLET PO SCH (06:38)
[2022-08-25] MEDS: ATORVASTATIN 40 MG TABLET PO SCH (09:11)
[2022-08-25] MEDS: levETIRAcetam 250 MG TABLET PO SCH ×2 (09:11→20:44)
[2022-08-25] MEDS: oxyCODONE 5 MG TABLET PO PRN ×3 (09:12→21:38)
[2022-08-25] MEDS: NYSTATIN POWDER 15 GM TOP SCH ×2 (09:12→21:00)
[2022-08-25] MEDS: ACETAMINOPHEN 500 MG TABLET PO PRN ×2 (09:12→14:32)
--- NOTE | 2022-08-25 09:48 | ED Physician Documentation ---
ED Addendum - Addendum Addendum: Patient remains boarding in the emergency department awaiting placement. No acute events overnight.
[2022-08-25] MEDS: BACLOFEN 10 MG TABLET PO SCH (20:44)
[2022-08-26] MEDS: PANTOPRAZOLE 40 MG TABLET PO SCH (06:41)
[2022-08-26] MEDS: LEVOTHYROXINE 25 MCG TABLET PO SCH (06:41)
--- NOTE | 2022-08-26 10:01 | ED Physician Documentation ---
ED Addendum - Addendum Addendum: 08/26/22 10:01 No acute events overnight, social work has almost innumerable referrals out for placement, sounds like she may go somewhere in the next couple of days.
[2022-08-26] MEDS: levETIRAcetam 250 MG TABLET PO SCH ×2 (11:12→20:33)
[2022-08-26] MEDS: NYSTATIN POWDER 15 GM TOP SCH ×2 (11:12→20:33)
[2022-08-26] MEDS: ATORVASTATIN 40 MG TABLET PO SCH (11:12)
[2022-08-26] MEDS: ACETAMINOPHEN 500 MG TABLET PO PRN (11:26)
[2022-08-26] MEDS: oxyCODONE 5 MG TABLET PO PRN ×2 (11:26→15:46)
[2022-08-26] MEDS: BACLOFEN 10 MG TABLET PO SCH (20:33)
[2022-08-27] MEDS: oxyCODONE 5 MG TABLET PO PRN ×4 (02:16→20:06)
[2022-08-27] MEDS: ACETAMINOPHEN 500 MG TABLET PO PRN ×4 (02:16→20:06)
[2022-08-27] MEDS: LEVOTHYROXINE 25 MCG TABLET PO SCH (06:51)
[2022-08-27] MEDS: PANTOPRAZOLE 40 MG TABLET PO SCH (06:51)
[2022-08-27] MEDS: NYSTATIN POWDER 15 GM TOP SCH ×2 (08:44→20:07)
[2022-08-27] MEDS: levETIRAcetam 250 MG TABLET PO SCH ×2 (08:44→20:07)
[2022-08-27] MEDS: ATORVASTATIN 40 MG TABLET PO SCH (08:44)
--- NOTE | 2022-08-27 12:52 | ED Physician Documentation ---
ED Addendum - Addendum Addendum: 08/27/22 12:52 The patient states she is having some dry skin on her forearms despite the skin lotion that she has. She requests a different one. Otherwise she states she is good on the her current regimen of diet and medications. Social work is apparently still working on placement for her.
[2022-08-27] MEDS: EMOLLIENT CREAM 57 GM TUBE TOP SCH ×2 (13:00→20:07)
[2022-08-27] MEDS: BACLOFEN 10 MG TABLET PO SCH (20:07)
[2022-08-28] MEDS: LEVOTHYROXINE 25 MCG TABLET PO SCH (06:45)
[2022-08-28] MEDS: PANTOPRAZOLE 40 MG TABLET PO SCH (06:45)
[2022-08-28] MEDS: ATORVASTATIN 40 MG TABLET PO SCH (08:25)
[2022-08-28] MEDS: levETIRAcetam 250 MG TABLET PO SCH ×2 (08:25→22:07)
[2022-08-28] MEDS: NYSTATIN POWDER 15 GM TOP SCH ×2 (08:25→22:08)
[2022-08-28] MEDS: EMOLLIENT CREAM 57 GM TUBE TOP SCH ×2 (08:25→22:07)
[2022-08-28] MEDS: oxyCODONE 5 MG TABLET PO PRN (08:26)
[2022-08-28] MEDS: ACETAMINOPHEN 500 MG TABLET PO PRN (08:26)
[2022-08-28] MEDS: BACLOFEN 10 MG TABLET PO SCH (22:07)
[2022-08-29] MEDS: PANTOPRAZOLE 40 MG TABLET PO SCH (06:23)
[2022-08-29] MEDS: LEVOTHYROXINE 25 MCG TABLET PO SCH (06:23)
--- NOTE | 2022-08-29 08:43 | ED Physician Documentation ---
ED Addendum - Addendum Addendum: 08/29/22 08:41 I stepped into check on the patient this morning. She just received her skin care and cleansing by our wonderful hvac refrigeration technician. She did not have any particular complaints. She had been using lotion on her arms and states they are less dry than the other day. The hvac refrigeration technician reports there is some slight redness and skin breakdown on the sacral area but improved from previous. They are continuing with lotions and cleansing. The patient states she is doing okay on food and diet. We will continue current treatment. Still awaiting social work placement and advancement of that. Should be noted I had evaluated the patient yesterday on 425 but did not write an update note at that time. There were no problems encountered yesterday.
[2022-08-29] MEDS: ATORVASTATIN 40 MG TABLET PO SCH (09:05)
[2022-08-29] MEDS: levETIRAcetam 250 MG TABLET PO SCH ×2 (09:05→20:50)
[2022-08-29] MEDS: EMOLLIENT CREAM 57 GM TUBE TOP SCH ×2 (09:05→21:04)
[2022-08-29] MEDS: NYSTATIN POWDER 15 GM TOP SCH ×2 (09:05→21:00)
[2022-08-29] MEDS: ACETAMINOPHEN 500 MG TABLET PO PRN (14:59)
[2022-08-29] MEDS: oxyCODONE 5 MG TABLET PO PRN (14:59)
[2022-08-29] MEDS: BACLOFEN 10 MG TABLET PO SCH (20:50)
[2022-08-30] MEDS: LEVOTHYROXINE 25 MCG TABLET PO SCH (06:37)
[2022-08-30] MEDS: PANTOPRAZOLE 40 MG TABLET PO SCH (06:37)
--- NOTE | 2022-08-30 07:58 | ED Physician Documentation ---
ED Addendum - Addendum Addendum: 08/30/22 07:57 Patient is smiling and comfortable when I meet with her this morning. She is currently having breakfast of sausage eggs and a blueberry pancake. She did not have any complaints or requests. controls technician is planning skin cleaning and bathing after breakfast. Currently no change in treatment evidently needed.
[2022-08-30] MEDS: EMOLLIENT CREAM 57 GM TUBE TOP SCH ×2 (08:45→20:42)
[2022-08-30] MEDS: ATORVASTATIN 40 MG TABLET PO SCH (08:45)
[2022-08-30] MEDS: ACETAMINOPHEN 500 MG TABLET PO PRN ×2 (08:46→21:31)
[2022-08-30] MEDS: NYSTATIN POWDER 15 GM TOP SCH ×2 (08:46→20:41)
[2022-08-30] MEDS: oxyCODONE 5 MG TABLET PO PRN ×3 (08:46→18:43)
[2022-08-30] MEDS: levETIRAcetam 250 MG TABLET PO SCH ×2 (08:46→20:40)
[2022-08-30] MEDS: BACLOFEN 10 MG TABLET PO SCH (20:40)
[2022-08-31] MEDS: ACETAMINOPHEN 500 MG TABLET PO PRN ×3 (00:06→15:34)
[2022-08-31] MEDS: LEVOTHYROXINE 25 MCG TABLET PO SCH (06:32)
[2022-08-31] MEDS: PANTOPRAZOLE 40 MG TABLET PO SCH (06:32)
--- NOTE | 2022-08-31 07:19 | ED Physician Documentation ---
ED Addendum - Addendum Addendum: 08/31/22 07:19 08/31/22 08:00 Patient received a signout from outgoing physician, please see their documentation for further detail. Patient evaluated independently at bedside, found to be resting comfortably and in no acute distress. Nursing staff does not report any acute events overnight. Plan for today is continue to work with social work for placement/PT OT as appropriate. 08/31/22 15:18
[2022-08-31] MEDS: EMOLLIENT CREAM 57 GM TUBE TOP SCH ×2 (09:10→21:51)
[2022-08-31] MEDS: NYSTATIN POWDER 15 GM TOP SCH ×2 (09:10→21:51)
[2022-08-31] MEDS: oxyCODONE 5 MG TABLET PO PRN ×3 (09:10→21:51)
[2022-08-31] MEDS: levETIRAcetam 250 MG TABLET PO SCH ×2 (09:10→21:51)
[2022-08-31] MEDS: ATORVASTATIN 40 MG TABLET PO SCH (09:10)
[2022-08-31] MEDS: BACLOFEN 10 MG TABLET PO SCH (21:51)
[2022-09-01] MEDS: LEVOTHYROXINE 25 MCG TABLET PO SCH (06:52)
[2022-09-01] MEDS: PANTOPRAZOLE 40 MG TABLET PO SCH (06:52)
[2022-09-01] MEDS: ACETAMINOPHEN 500 MG TABLET PO PRN ×2 (07:29→14:45)
[2022-09-01] MEDS: oxyCODONE 5 MG TABLET PO PRN ×2 (07:29→14:45)
[2022-09-01] MEDS: NYSTATIN POWDER 15 GM TOP SCH ×2 (11:53→20:32)
[2022-09-01] MEDS: levETIRAcetam 250 MG TABLET PO SCH ×2 (11:53→20:32)
[2022-09-01] MEDS: ATORVASTATIN 40 MG TABLET PO SCH (11:53)
[2022-09-01] MEDS: EMOLLIENT CREAM 57 GM TUBE TOP SCH ×2 (11:53→20:32)
--- NOTE | 2022-09-01 13:32 | ED Physician Documentation ---
ED Addendum - Addendum Addendum: Patient remains boarding in the emergency department awaiting placement. No reported events overnight. Patient is sleeping when I went to evaluate her this morning. Social work continues to work on placement.
[2022-09-01] MEDS: polyethylene glycoL 3350 17 GM PACKET PO PRN (17:11)
[2022-09-01] MEDS: BACLOFEN 10 MG TABLET PO SCH (20:32)
[2022-09-02] MEDS: ACETAMINOPHEN 500 MG TABLET PO PRN ×2 (05:10→15:54)
[2022-09-02] MEDS: PANTOPRAZOLE 40 MG TABLET PO SCH (06:06)
[2022-09-02] MEDS: LEVOTHYROXINE 25 MCG TABLET PO SCH (06:06)
[2022-09-02] MEDS: oxyCODONE 5 MG TABLET PO PRN ×3 (06:08→15:54)
--- NOTE | 2022-09-02 08:20 | ED Physician Documentation ---
ED Addendum - Addendum Addendum: Patient remains boarding in the emergency department awaiting placement.She was awake when I saw her this morning and expresses desire to go home and feels that her neighbor would be able to help her. Patient was reminded that social work has felt that this is not a safe option for her to rely on her neighbor as a caregiver as she has done this in the past and still had frequent ED visits.Patient is not getting up to toilet herself and is a high fall risk.Reiterated again that going home with her neighbor as a caregiver is not a safe discharge plan and that she should continue to work with social work towards determining A safe plan.
[2022-09-02] MEDS: ATORVASTATIN 40 MG TABLET PO SCH (09:20)
[2022-09-02] MEDS: levETIRAcetam 250 MG TABLET PO SCH ×2 (09:20→22:24)
[2022-09-02] MEDS: NYSTATIN POWDER 15 GM TOP SCH ×2 (09:20→22:24)
[2022-09-02] MEDS: EMOLLIENT CREAM 57 GM TUBE TOP SCH ×2 (09:20→22:24)
[2022-09-02] MEDS: BACLOFEN 10 MG TABLET PO SCH (22:24)
[2022-09-03] MEDS: ACETAMINOPHEN 500 MG TABLET PO PRN ×3 (00:45→14:26)
[2022-09-03] MEDS: PANTOPRAZOLE 40 MG TABLET PO SCH (06:53)
[2022-09-03] MEDS: LEVOTHYROXINE 25 MCG TABLET PO SCH (06:53)
[2022-09-03] MEDS: ATORVASTATIN 40 MG TABLET PO SCH (08:28)
[2022-09-03] MEDS: NYSTATIN POWDER 15 GM TOP SCH ×2 (08:28→21:51)
[2022-09-03] MEDS: EMOLLIENT CREAM 57 GM TUBE TOP SCH ×2 (08:28→21:54)
[2022-09-03] MEDS: levETIRAcetam 250 MG TABLET PO SCH ×2 (08:28→21:50)
[2022-09-03] MEDS: oxyCODONE 5 MG TABLET PO PRN ×2 (08:29→14:27)
--- NOTE | 2022-09-03 09:52 | ED Physician Documentation ---
ED Addendum - Addendum Addendum: 09/03/22 09:52 Patient was sleeping when I rounded on her. She was not awoken for exam. She appears comfortable. Vital signs reviewed, she has been borderline hypotensive at times but without tachycardia. Last social work note from August 30 reviewed. I have not gotten an update from them yet today.
[2022-09-03] MEDS: BACLOFEN 10 MG TABLET PO SCH (21:50)
[2022-09-04] MEDS: ACETAMINOPHEN 500 MG TABLET PO PRN ×2 (00:16→10:44)
[2022-09-04] MEDS: LEVOTHYROXINE 25 MCG TABLET PO SCH (06:49)
[2022-09-04] MEDS: PANTOPRAZOLE 40 MG TABLET PO SCH (06:50)
--- NOTE | 2022-09-04 07:50 | ED Physician Documentation ---
ED Addendum - Addendum Addendum: 09/04/22 07:50 She is seen at the bedside. She is sitting up. Awaiting breakfast. Denies any current needs. She remains boarding in the emergency department awaiting placement. 09/04/22 14:10 Patient is wanting to go home. Social work has seen her today. She does have decision-making capacity and so we are not able to hold her here against her will. She feels that she can manage with the support of her neighbors. She does not have home health services in place. PT is at the bedside to evaluate her. 09/04/22 15:25 She has been seen by PT. They feel that she is unsafe to go home as she requires a fair amount of assistance. I did discuss this again with the patient and she continues to state that she feels like she will be okay at home because she has her neighbor helping her. Departure - Departure Disposition: 01 Home, Self Care Clinical Impression: Hx of multiple sclerosis, Candidal skin infection Chronic leg pain Qualifiers: Laterality: right Qualified Code(s): M79.604 - Pain in right leg Condition: Good Instructions: ED Fall Dizziness Weakn Balance Comments: We have been trying to help you in getting a long-term placement because we do not feel that you are safe at home. However you are wanting to go home and we are not able to stop you from doing so. You are at high risk for falling. You would benefit from home health services. I am concerned about prescribing you anything sedating such as a narcotic pain medication as this may worsen your risk for fall which are already high for. I would recommend close follow-up with your primary care provider to see if they can help with getting you home health or additional assistance at home As well as for medication needs. I would otherwise recommend acetaminophen for pain.
[2022-09-04] MEDS: ATORVASTATIN 40 MG TABLET PO SCH (09:35)
[2022-09-04] MEDS: NYSTATIN POWDER 15 GM TOP SCH (09:35)
[2022-09-04] MEDS: levETIRAcetam 250 MG TABLET PO SCH (09:35)
[2022-09-04] MEDS: EMOLLIENT CREAM 57 GM TUBE TOP SCH (09:37)
[2022-09-04] MEDS: oxyCODONE 5 MG TABLET PO PRN (10:44)
[2022-09-04 15:24] VITALS: BP 99/58
== END 2022-09-04 16:07 | disposition home or self-care (01) ==
LOC: EDUNIT# → ED 18:47
DX: Z74.1 Need for assistance with personal care (principal); M79.604 Pain in right leg; G89.29 Other chronic pain; B37.2 Candidiasis of skin and nail; R23.8 Other skin changes; L85.3 Xerosis cutis; I10 Essential (primary) hypertension; G35 Multiple sclerosis; F17.200 Nicotine dependence, unspecified, uncomplicated; Z91.81 History of falling; Z76.4 Other boarder to healthcare facility
CPT/HCPCS: 36415; 80048; 85025; 99283; A9270

== ENCOUNTER 2022-10-22 08:00 | Outpatient (CLI) | payer MEDICARE, MEDICAID ==
--- NOTE | 2022-10-22 16:10 | XRAY Report ---
PROCEDURE: Knee 3 View RT INDICATIONS: RIGHT DISTAL FEMUR FRACTURE TECHNIQUE: 3 views of the right knee(s) were acquired. COMPARISON: None. FINDINGS: Bones: Normal bone mineralization. Impacted distal femoral fracture does show slight remodeling and incorporation. Tibial plateau unremarkable. Soft tissues: Small knee joint effusion. No suspicious soft tissue calcifications or masses. IMPRESSION: Healing distal femoral fracture Reviewed by: Rayshawn Malave MD on 10/22/2022 3:09 PM AKDANIELLA Approved by: Rayshawn Malave MD on 10/22/2022 3:09 PM AKDT Station ID: [id number]
== END 2022-10-22 23:59 | disposition home or self-care (01) ==
LOC: DI.WOS 08:00
PROVIDERS: ATTEND Orthopaedic Surgery
DX: S72.451D Displaced supracondylar fracture without intracondylar extension of lower end of right femur, subsequent encounter for closed fracture with routine healing (principal)

== ENCOUNTER 2022-11-01 08:00 | Outpatient (CLI) | payer MEDICARE, MEDICAID ==
[2022-11-01 11:11] LABS: BILIRUBIN,URINE NEGATIVE (NEGATIVE); GLUCOSE, URINE (UA) NEGATIVE (NEGATIVE); KETONES,URINE (UA) NEGATIVE (NEGATIVE); LEUKOCYTE ESTERASE, URINE SMALL (NEGATIVE); NITRITE,URINE POSITIVE (NEGATIVE); OCCULT BLOOD,URINE NEGATIVE (NEGATIVE); PROTEIN,URINE NEGATIVE (NEGATIVE); UROBILINOGEN,URINE 0.2 (NORMAL) E.U./dL (NORMAL)
[2022-11-01 11:16] LABS: CLARITY,URINE SL. CLOUDY (CLEAR)
[2022-11-01 11:29] LABS: BACTERIA,URINE Many /HPF (None Seen); RBC,URINE 0-5 /HPF (0-5); SQUAMOUS EPITHELIAL CELL,UR FEW Squamous (<= Few); WBC CLUMPS,URINE PRESENT
== END 2022-11-01 23:59 | disposition home or self-care (01) ==
LOC: LAB 08:00
PROVIDERS: ATTEND Urology
DX: R32 Unspecified urinary incontinence (principal)
CPT/HCPCS: 81001; 87077; 87086; 87181

== ENCOUNTER 2023-02-09 20:19 | Outpatient (CLI) | payer MEDICARE, MEDICAID | END 2023-02-09 23:59 | disposition critical access hospital (66) | LOC: EMS 20:19 | DX: R06.02 Shortness of breath (principal); R53.1 Weakness; R05.9 Cough, unspecified; F17.210 Nicotine dependence, cigarettes, uncomplicated | CPT/HCPCS: A0425; A0427 ==

== ENCOUNTER 2023-02-09 20:38 | Emergency (ER) | payer MEDICARE, MEDICAID ==
--- NOTE | 2023-02-09 22:25 | ED Physician Documentation ---
PD HPI DYSPNEA - Stated complaint Stated Complaint: SOA - Chief complaint Chief Complaint: Resp - History obtained from History obtained from: Patient, EMS - Additional information Additional information: HPI from EMS and patient. Patient provides brief, often anabell answers to HPI/ROS questions. Patient c/o 3 days of dyspnea, generalized weakness. c/o cough although unclear on my HPI if this is new for her. She denies fever, denies having any pain including chest pain. Patient was inpatient at [facility] 01/28/23-01/31/23 for AMS. Review of Systems Constitutional: denies: Fever Cardiac: denies: Chest pain / pressure Respiratory: reports: Dyspnea, Cough. denies: Wheezing GI: denies: Abdominal Pain, Vomiting Neurologic: reports: Generalized weakness. 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: Other : Chronic bladder infection HEENT: None Psych: Depression, ADD/ADHD Musculoskeletal: Chronic back pain, Other Derm: Other - Past Surgical History Past Surgical History: Yes Ortho: Spine surgery /HUMAN RESOURCES ADMINISTRATOR: Hysterectomy Cardiovascular: Coronary stent, Cardiac catheterization - Present Medications Home Medications: Ambulatory Orders Medication Instructions Recorded Confirmed Losartan Potassium 25 mg PO DAILY 04/03/22 02/09/23 Levetiracetam [Keppra] 500 mg PO BID 05/15/22 02/09/23 Levothyroxine Sodium 50 mcg PO QDAC 05/15/22 02/09/23 Aspirin EC [Ecotrin] 81 mg PO DAILY tab 06/20/22 02/09/23 Atorvastatin [Lipitor] 40 mg PO QPM tab 06/20/22 02/09/23 carvediloL [Coreg] 3.125 mg PO BID #0 06/20/22 02/09/23 Baclofen [Lioresal] 20 mg PO QID 08/16/22 02/09/[address] [Voltaren] 75 mg PO BID PRN 01/28/23 02/09/23 Potassium Chloride [Klor-Con 10] 10 meq PO DAILY 01/28/23 02/09/23 Cholecalciferol (Vitamin D3) 25 mcg PO DAILY 01/29/23 02/09/23 [Vitamin D3] Clobetasol 0.05% Oint [Temovate 1 applic TOP BID 01/29/23 02/09/23 0.05% Oint] Nitrofurantoin [Macrobid] 100 mg PO BID #14 cap 02/10/23 - Allergies Allergies/Adverse Reactions: Allergies Allergy/AdvReac Type Severity Reaction Status Date / Time No Known Drug Allergies Allergy Verified 02/09/23 20:53 - Social History Does the pt smoke?: Yes Smoking Status: Current every day smoker Does the pt drink ETOH?: No Does the pt have substance abuse?: No - Immunizations Immunizations are current?: No - POLST Patient has POLST: No POLST Status: Full Code PD ED PE NORMAL - Vitals Vital signs reviewed: Yes - General General: Alert and oriented X 3, No acute distress, Well developed/nourished - Neck Neck: Supple, no meningeal sign - Cardiac Cardiac: RRR, No murmur - Respiratory Respiratory: No respiratory distress, Other (scattered rhonchi but predominantly upper lung borja, s/o transmitted upper airway sounds) - Abdomen Abdomen: Soft, Non tender - Derm Derm: Normal color, Warm and dry - Extremities Extremities: No edema Results - Vitals Vitals: Vital Signs - 24 hr 02/10/23 02/10/23 05:00 06:30 Heart Rate 68 58 L Respiratory 26 H 24 Rate Blood Pressure 115/73 104/73 O2 Saturation 94 96 Oxygen O2 Source [] Room air O2 Source [] Room air O2 Source Room air Oxygen Flow Rate 2 - EKG (time done) No standard instances EKG releavant findings:: EKG personally interpreted by author of this note. Relevant findings are: Rate: Rate (enter#) (65) Rhythm: NSR [place]: Normal Intervals: Prolonged DC, RBBB QRS: Normal Ischemia: Normal ST segments, Q waves (II, III, aVF) Compare to prior EKG: Unchanged from prior EKG (04/24/23) - Labs Labs: Laboratory Tests 02/09/23 02/09/23 02/09/23 22:54 22:54 22:54 WBC 10.5 RBC 4.67 Hgb 13.0 Hct 40.6 MCV 86.9 MCH 27.8 MCHC 32.0 RDW 16.8 H Plt Count 303 MPV 10.0 Neut # (Auto) 6.1 Lymph # (Auto) 3.3 Garza # (Auto) 0.9 Eos # (Auto) 0.0 Baso # (Auto) 0.1 Absolute Nucleated RBC 0.00 Nucleated RBC % 0.0 Sodium 134 L Potassium 4.2 Chloride 102 Carbon Dioxide 28 Anion Gap 4.0 L BUN 27 H Creatinine 0.8 Estimated GFR (MDRD) 72 L Glucose 97 Calcium 9.7 Total Bilirubin 0.2 AST 11 ALT 12 Alkaline Phosphatase 98 Troponin I High Sens 10.6 B-Natriuretic Peptide 77 Total Protein 7.1 Albumin 4.0 Globulin 3.1 Albumin/Globulin Ratio 1.3 Lipase 65 Urine Color Urine Clarity Urine pH Ur Specific Manter Urine Protein Urine Glucose (UA) Urine Ketones Urine Occult Blood Urine Nitrite Urine Bilirubin Urine Urobilinogen Ur Leukocyte Esterase Urine RBC Urine WBC Ur Squamous Epith Cells Urine Bacteria Ur Microscopic Review Urine Culture Comments Nasal Adenovirus (PCR) Nasal B. parapertussis DNA (PCR) Nasal Coronavir 229E PCR Nasal Coronavir HKU1 PCR Nasal Coronavir NL63 PCR Nasal Coronavir OC43 PCR Nasal Enterovir/Rhinovir PCR Nasal Influenza B PCR Nasal Influenza A PCR Nasal Parainfluen 1 PCR Nasal Parainfluen 2 PCR Nasal Parainfluen 3 PCR Nasal Parainfluen 4 PCR Nasal RSV (PCR) Nasal B.pertussis DNA PCR Nasal C.pneumoniae (PCR) Jaya Human Metapneumo PCR Nasal M.pneumoniae (PCR) Nasal SARS-CoV-2 (PCR) 02/09/23 02/10/23 23:02 00:15 WBC RBC Hgb Hct MCV MCH MCHC RDW Plt Count MPV Neut # (Auto) Lymph # (Auto) Garza # (Auto) Eos # (Auto) Baso # (Auto) Absolute Nucleated RBC Nucleated RBC % Sodium Potassium Chloride Carbon Dioxide Anion Gap BUN Creatinine Estimated GFR (MDRD) Glucose Calcium Total Bilirubin AST ALT Alkaline Phosphatase Troponin I High Sens B-Natriuretic Peptide Total Protein Albumin Globulin Albumin/Globulin Ratio Lipase Urine Color YELLOW Urine Clarity HAZY Urine pH 5.5 Ur Specific [place] 1.025 Urine Protein NEGATIVE Urine Glucose (UA) NEGATIVE Urine Ketones NEGATIVE Urine Occult Blood TRACE-INTA Urine Nitrite POSITIVE H Urine Bilirubin NEGATIVE Urine Urobilinogen 0.2 (NORMAL) Ur Leukocyte Esterase SMALL H Urine RBC 6-10 H Urine WBC 11-25 H Ur Squamous Epith Cells MANY Squamous H Urine Bacteria Many H Ur Microscopic Review INDICATED Urine Culture Comments NOT INDICATED Nasal Adenovirus (PCR) NOT DETECTED Nasal B. parapertussis DNA (PCR) NOT DETECTED Nasal Coronavir 229E PCR NOT DETECTED Nasal Coronavir HKU1 PCR NOT DETECTED Nasal Coronavir NL63 PCR NOT DETECTED Nasal Coronavir OC43 PCR NOT DETECTED Nasal Enterovir/Rhinovir PCR NOT DETECTED Nasal Influenza B PCR NOT DETECTED Nasal Influenza A PCR NOT DETECTED Nasal Parainfluen 1 PCR NOT DETECTED Nasal Parainfluen 2 PCR NOT DETECTED Nasal Parainfluen 3 PCR NOT DETECTED Nasal Parainfluen 4 PCR NOT DETECTED Nasal RSV (PCR) NOT DETECTED Nasal B.pertussis DNA PCR NOT DETECTED Nasal C.pneumoniae (PCR) NOT DETECTED Jaya Human Metapneumo PCR NOT DETECTED Nasal M.pneumoniae (PCR) NOT DETECTED Nasal SARS-CoV-2 (PCR) NOT DETECTED - Rads (name of study) chest xray Relevant Findings:: Prelim report reviewed, See rad report PD Medical Decision Making - ED course Complexity details: reviewed old records (reviewed d/c summary from inpatient stay last month; these notes include mention of patient's unusual communicative skills (such as loud answers and demanding behavior)), reviewed results, re- evaluated patient, considered differential, d/w patient ED course: No respiratory distress during ED stay. Vital signs stable including pulse ox ([id number] 90s pulse ox on room air). Upper lung field rhonchi on initial exam s/o transmitted upper airway breath sounds; her lung sounds are clear to auscultation on reexam later in stay after she has been coughing (likely cleared upper airway secretions causing the rhonchi heard on initial exam). Unremarkable test results including CBC, ER abdominal panel, BNP (77), hs-cTn (10.6). Viral respiratory PCR panel negative and no abnormality on CXR. UA is c/w UTI and she is given 1 gram rocephin and rx macrobid (most recent urine culture was hurtado-sensitive e. coli). EKG without acute findings and unchanged from 04/24/22 EKG. Results d/w patient, return precautions reviewed. She is in NAD at time of discharge. She requested something for her cough during stay, given guaifenesin with dextromethorphan; she reported this worked well but developed a pattern of recurrently asking for more whenever she would cough. She was given a dose of guaifenesin (without DM) prior to d/c. The etiology of her dyspnea is not apparent at this time; differential includes bronchitis, sinusitis with post-nasal drip and pooling of secretions in upper airway. Weakness is possibly due to UTI but no other findings on tonight's test to suggest alternate / concerning etiology of weakness. Departure - Departure Disposition: 01 Home, Self Care Clinical Impression: Dyspnea UTI (urinary tract infection) Qualifiers: Urinary tract infection type: acute cystitis Hematuria presence: with hematuria Qualified Code(s): N30.01 - Acute cystitis with hematuria Condition: Good Instructions: ED Dyspnea Shortness of Breath, ED UTI Cystitis Female Prescriptions: Nitrofurantoin [Macrobid] 100 mg PO BID #14 cap Comments: There were no concerning findings on the blood tests nor on the chest x-ray. There is no evidence of any pneumonia, no evidence of pulmonary edema (fluid in the lungs). The urinalysis is consistent with a urinary tract infection and for this you are given a dose of an antibiotic (ceftriaxone) in the emergency department, and you are being provided a prescription for a 1-week course of nitrofurantoin (antibiotic). Forms: PCP List Discharge Date/Time: 02/10/23 07:15
[2023-02-09 23:01] LABS: BASOPHILS # (AUTO) 0.1 10^3/uL (0.0-0.1); BASOPHILS % (AUTO) 1.1 %; HCT - HEMATOCRIT 40.6 % (37.0-47.0); LYMPHOCYTES # (AUTO) 3.3 10^3/uL (1.5-3.5); LYMPHOCYTES % (AUTO) 31.5 %; MEAN CORPUSCULAR HEMOGLOBIN 27.8 pg (27.0-31.0); MEAN CORPUSCULAR VOLUME 86.9 fL (81.0-99.0); MONOCYTES # (AUTO) 0.9 10^3/uL (0.0-1.0); MONOCYTES % (AUTO) 8.5 %; NEUTROPHILS # (AUTO) 6.1 10^3/uL (1.5-6.6); NEUTROPHILS % (AUTO) 58.6 %; PLT - PLATELET COUNT 303 10^3/uL (130-450); RED BLOOD COUNT 4.67 10^6/uL (4.20-5.40); RED CELL DISTRIBUTION WIDTH 16.8 % (12.0-15.0); WHITE BLOOD COUNT 10.5 x10^3/uL (4.8-10.8)
[2023-02-09 23:18] LABS: ALBUMIN/GLOBULIN RATIO 1.3 (1.0-2.2); BILIRUBIN,TOTAL 0.2 mg/dL (0.2-1.0); CALCIUM 9.7 mg/dL (8.5-10.3); CREATININE 0.8 mg/dL (0.6-1.3); POTASSIUM 4.2 mmol/L (3.5-4.5); TOTAL PROTEIN 7.1 g/dL (6.4-8.9)
--- NOTE | 2023-02-10 00:11 | XRAY Report ---
PROCEDURE: Chest 2 View X-Ray INDICATIONS: dyspnea TECHNIQUE: 2 views of the chest were acquired. COMPARISON: None. FINDINGS: Surgical changes and devices: None. Lungs and pleura: No pleural effusions or pneumothorax. 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 Mediastinum: Mediastinal contours appear normal. Heart size is normal. Bones and chest wall: No suspicious bony lesions. Overlying soft tissues appear unremarkable. IMPRESSION: No acute cardiopulmonary process. Light film technique, with reference to the earlier comparison chest plain film but no definite avila e has occurred otherwise. Reviewed by: Tylor Chowdhury MD on 02/10/2023 12:09 AM PDT Approved by: Tylor Chowdhury MD on 02/10/2023 12:09 AM PDT Station ID: [id number]
[2023-02-10 00:23] LABS: B. PARAPERTUSSIS- RESP PCR PAN NOT DETECTED; B. PERTUSSIS- RESP PCR PANEL NOT DETECTED; C. PNEUMONIAE- RESP PCR PANEL NOT DETECTED; CORONAVIRUS 229E-RESP PCR NOT DETECTED; CORONAVIRUS HKU1-RESP PCR NOT DETECTED; CORONAVIRUS NL63-RESP PCR NOT DETECTED; CORONAVIRUS OC43-RESP PCR NOT DETECTED; HUMAN METAPNEUMOVIRUS NOT DETECTED; INFLUENZA A- RESP PCR PANEL NOT DETECTED; INFLUENZA B - RESP PCR PANEL NOT DETECTED; M. PNEUMONIAE- RESP PCR PANEL NOT DETECTED; PARAINFLUENZA VIRUS 1 NOT DETECTED; PARAINFLUENZA VIRUS 2 NOT DETECTED; PARAINFLUENZA VIRUS 3 NOT DETECTED; PARAINFLUENZA VIRUS 4 NOT DETECTED; RHINOVIRUS/ENTEROVIRUS NOT DETECTED; RSV- RESP PCR PANEL NOT DETECTED; SARS-CoV-2 -RESP PCR PANEL NOT DETECTED
[2023-02-10 00:29] LABS: BILIRUBIN,URINE NEGATIVE (NEGATIVE); GLUCOSE, URINE (UA) NEGATIVE (NEGATIVE); KETONES,URINE (UA) NEGATIVE (NEGATIVE); LEUKOCYTE ESTERASE, URINE SMALL (NEGATIVE); NITRITE,URINE POSITIVE (NEGATIVE); OCCULT BLOOD,URINE TRACE-INTA (NEGATIVE); PH,URINE 5.5 PH (5.0-7.5); PROTEIN,URINE NEGATIVE (NEGATIVE); UROBILINOGEN,URINE 0.2 (NORMAL) E.U./dL (NORMAL)
[2023-02-10 00:39] LABS: CLARITY,URINE HAZY (CLEAR)
[2023-02-10 00:47] LABS: BACTERIA,URINE Many /HPF (None Seen); SQUAMOUS EPITHELIAL CELL,UR MANY Squamous (<= Few)
[2023-02-10] MEDS ORDERED: cefTRIAXone 1 GM in SODIUM CHLORIDE 0.9% MINIBAG 100 ML IV STA (02:19)
[2023-02-10] MEDS ORDERED: cefTRIAXone 1 GM VIAL ONE (03:17)
[2023-02-10] MEDS ORDERED: guaiFENesin/DEXTROMETHORPHAN 10 ML UDC PO STA (03:20)
[2023-02-10] MEDS ORDERED: guaiFENesin 100 MG/5 ML UDC PO STA (05:04)
[2023-02-10 07:07] VITALS: BP 104/73; O2SAT 96
== END 2023-02-10 07:15 | disposition home or self-care (01) ==
LOC: EDUNIT# → ED 20:38
DX: N30.01 Acute cystitis with hematuria (principal); R06.00 Dyspnea, unspecified; Z20.822 Contact with and (suspected) exposure to COVID-19; F17.200 Nicotine dependence, unspecified, uncomplicated; I10 Essential (primary) hypertension; G35 Multiple sclerosis; Z79.899 Other long term (current) drug therapy; Z79.82 Long term (current) use of aspirin
CPT/HCPCS: 36415; 71046; 80053; 81001; 83690; 83880; 84484; 85025; 87633; 93005; 96374; 99284; A9270; 81003; 87086

== ENCOUNTER 2023-02-17 22:33 | Outpatient (CLI) | payer MEDICARE, MEDICAID | END 2023-02-17 22:34 | disposition critical access hospital (66) | LOC: EMS 22:33 | DX: R06.02 Shortness of breath (principal); R05.9 Cough, unspecified | CPT/HCPCS: A0425; A0429 ==

== ENCOUNTER 2023-02-17 22:34 | Observation (INO) | payer MEDICARE, MEDICAID ==
--- NOTE | 2023-02-17 23:09 | ED Physician Documentation ---
PD HPI DYSPNEA - Stated complaint Stated Complaint: COUGH, SOA - Chief complaint Chief Complaint: Resp - History obtained from History obtained from: Patient - Additional information Additional information: Patient is a 67-year-old female presenting for evaluation of 2-day history of feeling short of air with productive cough of yellow to green sputum. She denies any known fevers. She denies chest pain or leg swelling. Nothing makes her symptoms better or worse. EMS noted that she was 88% on room air.She is not normally on oxygen. 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 : Chronic bladder infection HEENT: None Psych: Depression, ADD/ADHD Musculoskeletal: Chronic back pain, Other Derm: Other - Past Surgical History Past Surgical History: Yes Ortho: Spine surgery /MASTER MERCHANDISER: Hysterectomy Cardiovascular: Coronary stent, Cardiac catheterization - Present Medications Home Medications: Ambulatory Orders Medication Instructions Recorded Confirmed Losartan Potassium 25 mg PO DAILY 04/03/22 02/17/23 Levetiracetam [Keppra] 500 mg PO BID 05/15/22 02/17/23 Levothyroxine Sodium 50 mcg PO QDAC 05/15/22 02/17/23 Aspirin EC [Ecotrin] 81 mg PO DAILY tab 06/20/22 02/17/23 Atorvastatin [Lipitor] 40 mg PO QPM tab 06/20/22 02/17/23 carvediloL [Coreg] 3.125 mg PO BID #0 06/20/22 02/17/23 Baclofen [Lioresal] 20 mg PO QID 08/16/22 02/17/[address] [Voltaren] 75 mg PO BID PRN 01/28/23 02/17/23 Potassium Chloride [Klor-Con 10] 10 meq PO DAILY 01/28/23 02/17/23 Cholecalciferol (Vitamin D3) 25 mcg PO DAILY 01/29/23 02/17/23 [Vitamin D3] Clobetasol 0.05% Oint [Temovate 1 applic TOP BID 09/26/23 10/15/23 0.05% Oint] Nitrofurantoin [Macrobid] 100 mg PO BID #14 cap 02/10/23 02/17/23 - Allergies Allergies/Adverse Reactions: Allergies Allergy/AdvReac Type Severity Reaction Status Date / Time No Known Drug Allergies Allergy Verified 02/17/23 22:49 - Social History Does the pt smoke?: Yes Smoking Status: Current every day smoker Does the pt drink ETOH?: No Does the pt have substance abuse?: No - Immunizations Immunizations are current?: No - POLST Patient has POLST: No POLST Status: Full Code PD ED PE NORMAL - General General: Alert and oriented X 3, No acute distress, Well developed/nourished - HEENT HEENT: Atraumatic, Moist mucous membranes, Pharynx benign - Neck Neck: Supple, no meningeal sign - Cardiac Cardiac: RRR, No murmur - Respiratory Respiratory: No respiratory distress, Other (Rhonchi) - Abdomen Abdomen: Soft, Non tender, Non distended - Derm Derm: Warm and dry - Extremities Extremities: No calf tenderness / cord - Neuro Neuro: Normal speech Results - Vitals Vitals: Vital Signs - 24 hr 02/17/23 02/17/23 02/18/23 22:40 23:50 01:00 Temperature 98.5 C H Heart Rate 83 77 72 Respiratory 20 20 19 Rate Blood Pressure 139/89 H 117/72 O2 Saturation 86 L 95 If not protocol 3 2 : Oxygen Flow, liters/minute 02/18/23 02/18/23 02:25 03:03 Temperature 36.2 C L Heart Rate 70 67 Respiratory 22 21 Rate Blood Pressure 124/79 131/73 H O2 Saturation 100 98 If not protocol 2 2 : Oxygen Flow, liters/minute Oxygen O2 Source [With Activity] Room air O2 Source [Without Activity] Room air O2 Source Nasal cannula Oxygen Flow Rate 1 - EKG (time done) 2321 EKG releavant findings:: EKG personally interpreted by author of this note. Relevant findings are: Rate 75, normal sinus rhythm, right bundle branch block, no STEMI - Labs Labs: Laboratory Tests 02/17/23 02/17/23 02/17/23 23:05 23:32 23:32 WBC 15.2 H RBC 4.84 Hgb 13.2 Hct 41.8 MCV 86.4 MCH 27.3 MCHC 31.6 L RDW 16.1 H Plt Count 301 MPV 11.1 H Neut # (Auto) 12.4 H Lymph # (Auto) 1.9 [place] # (Auto) 0.8 Eos # (Auto) 0.0 Baso # (Auto) 0.1 Absolute Nucleated RBC 0.00 Nucleated RBC % 0.0 Sodium 129 L Potassium 4.1 Chloride 98 L Carbon Dioxide 28 Anion Gap 3.0 L BUN 20 Creatinine 0.8 Estimated GFR (MDRD) 72 L Glucose 95 Lactic Acid Calcium 9.7 Total Bilirubin 0.4 AST 14 ALT 12 Alkaline Phosphatase 111 B-Natriuretic Peptide Total Protein 7.4 Albumin 4.2 Globulin 3.2 Albumin/Globulin Ratio 1.3 Lipase 56 Nasal Adenovirus (PCR) NOT DETECTED Nasal B. parapertussis DNA (PCR) NOT DETECTED Nasal Coronavir 229E PCR NOT DETECTED Nasal Coronavir HKU1 PCR NOT DETECTED Nasal Coronavir NL63 PCR NOT DETECTED Nasal Coronavir OC43 PCR NOT DETECTED Nasal Enterovir/Rhinovir PCR NOT DETECTED Nasal Influenza B PCR NOT DETECTED Nasal Influenza A PCR NOT DETECTED Nasal Parainfluen 1 PCR NOT DETECTED Nasal Parainfluen 2 PCR NOT DETECTED Nasal Parainfluen 3 PCR NOT DETECTED Nasal Parainfluen 4 PCR NOT DETECTED Nasal RSV (PCR) NOT DETECTED Nasal B.pertussis DNA PCR NOT DETECTED Nasal C.pneumoniae (PCR) NOT DETECTED Jaya Human Metapneumo PCR NOT DETECTED Nasal M.pneumoniae (PCR) NOT DETECTED Nasal SARS-CoV-2 (PCR) NOT DETECTED 02/17/23 02/17/23 23:32 23:32 WBC RBC Hgb Hct MCV MCH MCHC RDW Plt Count MPV Neut # (Auto) Lymph # (Auto) [place] # (Auto) Eos # (Auto) Baso # (Auto) Absolute Nucleated RBC Nucleated RBC % Sodium Potassium Chloride Carbon Dioxide Anion Gap BUN Creatinine Estimated GFR (MDRD) Glucose Lactic Acid 0.7 Calcium Total Bilirubin AST ALT Alkaline Phosphatase B-Natriuretic Peptide 93 Total Protein Albumin Globulin Albumin/Globulin Ratio Lipase Nasal Adenovirus (PCR) Nasal B. parapertussis DNA (PCR) Nasal Coronavir 229E PCR Nasal Coronavir HKU1 PCR Nasal Coronavir NL63 PCR Nasal Coronavir OC43 PCR Nasal Enterovir/Rhinovir PCR Nasal Influenza B PCR Nasal Influenza A PCR Nasal Parainfluen 1 PCR Nasal Parainfluen 2 PCR Nasal Parainfluen 3 PCR Nasal Parainfluen 4 PCR Nasal RSV (PCR) Nasal B.pertussis DNA PCR Nasal C.pneumoniae (PCR) Jaya Human Metapneumo PCR Nasal M.pneumoniae (PCR) Nasal SARS-CoV-2 (PCR) PD Medical Decision Making - ED course Complexity details: reviewed results, re-evaluated patient, d/w patient ED course: Patient is a 67-year-old with a smoking history presenting for evaluation of feeling short of air, productive cough and noted to have hypoxia. Symptoms ongoing for the past 2 to 3 days. Sepsis work-up initiated. Does not appear to be fluid overloaded on exam. CBC, chemistry, BNP, respiratory swab and chest x- ray were obtained and reviewed. Mild hyponatremia of 129 which appears to be new for the patient. BNP is low. No chest pain to suggest ACS. EKG is nonischemic. Chest x-ray which I reviewed does not demonstrate a focal consolidation or pleural effusion. Patient has rhonchi on exam. Given a neb treatment with some improvement but still requiring oxygen. No overt wheezing. CT angio obtained to evaluate for pulmonary embolism as cause of her symptoms. It does demonstrate a filling defect in the left upper lobe which may represent a subacute or chronic pulmonary thromboembolus. Patient started on IV antibiotics for pneumonia given symptoms. As she is on oxygen discussed with admitting hospitalist, Dr. Edmonds who will admit for further management. Departure - Departure Disposition: 01 Home, Self Care Clinical Impression: Hypoxia, CAP (community acquired pneumonia), Hyponatremia Condition: Stable
[2023-02-17 23:40] LABS: BASOPHILS # (AUTO) 0.1 10^3/uL (0.0-0.1); BASOPHILS % (AUTO) 0.5 %; EOSINOPHILS % (AUTO) 0.2 %; HCT - HEMATOCRIT 41.8 % (37.0-47.0); HGB - HEMOGLOBIN 13.2 g/dL (12.0-16.0); LYMPHOCYTES # (AUTO) 1.9 10^3/uL (1.5-3.5); LYMPHOCYTES % (AUTO) 12.3 %; MEAN CORPUSCULAR HEMOGLOBIN 27.3 pg (27.0-31.0); MEAN CORPUSCULAR HGB CONC 31.6 g/dL (32.0-36.0); MEAN CORPUSCULAR VOLUME 86.4 fL (81.0-99.0); MEAN PLATELET VOLUME 11.1 fL (7.9-10.8); MONOCYTES # (AUTO) 0.8 10^3/uL (0.0-1.0); MONOCYTES % (AUTO) 5.2 %; NEUTROPHILS # (AUTO) 12.4 10^3/uL (1.5-6.6); NEUTROPHILS % (AUTO) 81.5 %; PLT - PLATELET COUNT 301 10^3/uL (130-450); RED BLOOD COUNT 4.84 10^6/uL (4.20-5.40); RED CELL DISTRIBUTION WIDTH 16.1 % (12.0-15.0); WHITE BLOOD COUNT 15.2 x10^3/uL (4.8-10.8)
[2023-02-17] MEDS ORDERED: IPRATROPIUM/ALBUTEROL 3 ML NEB INH STA (23:40)
[2023-02-17 23:57] LABS: ALBUMIN 4.2 g/dL (3.2-5.5); ALBUMIN/GLOBULIN RATIO 1.3 (1.0-2.2); BILIRUBIN,TOTAL 0.4 mg/dL (0.2-1.0); CALCIUM 9.7 mg/dL (8.5-10.3); CREATININE 0.8 mg/dL (0.6-1.3); POTASSIUM 4.1 mmol/L (3.5-4.5); TOTAL PROTEIN 7.4 g/dL (6.4-8.9)
--- NOTE | 2023-02-17 23:59 | XRAY Report ---
PROCEDURE: Chest 1 View X-Ray INDICATIONS: SOA TECHNIQUE: One view of the chest was acquired. COMPARISON: 02/09/2023 FINDINGS: Surgical changes and devices: None. Lungs and pleura: No pleural effusions or pneumothorax. Lungs are clear. Mediastinum: Mediastinal contours appear normal. Heart size is normal. Bones and chest wall: No suspicious bony lesions. Overlying soft tissues appear unremarkable. IMPRESSION: No acute cardiopulmonary process. Reviewed by: Hugh Llamas MD on 02/17/2023 11:58 PM PDT Approved by: Hugh Llamas MD on 02/17/2023 11:58 PM PDT Station ID: [id number]
[2023-02-18] MEDS ORDERED: SODIUM CHLORIDE 0.9% 500 ML IV STA (00:35)
[2023-02-18 00:37] LABS: B. PARAPERTUSSIS- RESP PCR PAN NOT DETECTED; B. PERTUSSIS- RESP PCR PANEL NOT DETECTED; C. PNEUMONIAE- RESP PCR PANEL NOT DETECTED; CORONAVIRUS 229E-RESP PCR NOT DETECTED; CORONAVIRUS HKU1-RESP PCR NOT DETECTED; CORONAVIRUS NL63-RESP PCR NOT DETECTED; CORONAVIRUS OC43-RESP PCR NOT DETECTED; HUMAN METAPNEUMOVIRUS NOT DETECTED; INFLUENZA A- RESP PCR PANEL NOT DETECTED; INFLUENZA B - RESP PCR PANEL NOT DETECTED; M. PNEUMONIAE- RESP PCR PANEL NOT DETECTED; PARAINFLUENZA VIRUS 1 NOT DETECTED; PARAINFLUENZA VIRUS 2 NOT DETECTED; PARAINFLUENZA VIRUS 3 NOT DETECTED; PARAINFLUENZA VIRUS 4 NOT DETECTED; RHINOVIRUS/ENTEROVIRUS NOT DETECTED; RSV- RESP PCR PANEL NOT DETECTED; SARS-CoV-2 -RESP PCR PANEL NOT DETECTED
[2023-02-18] MEDS ORDERED: iohexoL-300 100 ML VIAL IVP ONE (02:14)
[2023-02-18] MEDS ORDERED: AZITHROMYCIN INJ 500 MG in SODIUM CHLORIDE 0.9% 250 ML IV STA (03:17)
[2023-02-18] MEDS ORDERED: cefTRIAXone 1 GM in SODIUM CHLORIDE 0.9% MINIBAG 100 ML IV STA (03:17)
[2023-02-18] MEDS ORDERED: cefTRIAXone 1 GM VIAL ONE (03:32)
[2023-02-18] MEDS ORDERED: ENOXAPARIN 80 MG/0.8 ML SYRINGE SUBQ STA (03:39)
--- NOTE | 2023-02-18 03:39 | HISTORY & PHYSICAL EXAMINATION ---
Chief Complaint - Chief Complaint Chief Complaint: Shortness of breath History of Present Illness - Admitted From Admitted From:: ER - History Obtained From Records Reviewed: Yes History obtained from: Patient, staff, chart Exam Limitations: Virtual exam - History of Present Illness HPI Comment/Other: H&P was conducted via video remotely, using Access Cart. [place] Physician [place] No one is at bedside. 67 yo F with PMH of Tobacco use, HTN, CAD, CHF, HLD, Hypothyroid and Seizure D/o presented to the ER via EMS with c/o 3 day h/o SOB. Pt c/o 3 day h/o fatigue, weakness, Shortness of breath, cough with yellow-green sputum, +subjective F/C, decreased appetite. She denies coryza, sore throat, sinus pressure. No swelling of legs. No h/o blood clots. No abdo pain/N/V/dysuria. Pt has been hospitalized in the past multiple times for AMS, but has not been hospitalized for Shortness of breath. EMS reports SpO2 88% on RA. In the ER, SpO2 86% RA, 95% 2L NC O2, WBC 15.2, Na 129, Resp viral panel neg. CXR: NAD EKG: NSR at 93, no STTw changes CT Chest: not available in chart for review; per ER Provider: +subacute or chronic PE Pt was given IVF, Duonebs, Rocephin, Azithromycin and Lovenox in the ER. 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 Her mother is and had a history of heart disease and lung cancer. She has brother who also from bone cancer and another brother who has atrial fibrillation. Living Situation: Alone Social History Notes: review of prior records revealed that she is a smoker and does not have a history of alcohol abuse. There is a remote history of LSD use back in the 1970s. 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 ) - POLST Patient has POLST: No POLST Status: Full Code Meds/Allgy - Home Medications Home Medications: Ambulatory Orders Medication Instructions Recorded Confirmed Losartan Potassium 25 mg PO DAILY 04/03/22 02/17/23 Levetiracetam [Keppra] 500 mg PO BID 05/15/22 02/17/23 Levothyroxine Sodium 50 mcg PO QDAC 05/15/22 02/17/23 Aspirin EC [Ecotrin] 81 mg PO DAILY tab 06/20/22 02/17/23 Atorvastatin [Lipitor] 40 mg PO QPM tab 06/20/22 02/17/23 carvediloL [Coreg] 3.125 mg PO BID #0 06/20/22 02/17/23 Baclofen [Lioresal] 20 mg PO QID 08/16/22 02/17/[address] [Voltaren] 75 mg PO BID PRN 01/28/23 02/17/23 Potassium Chloride [Klor-Con 10] 10 meq PO DAILY 01/28/23 02/17/23 Cholecalciferol (Vitamin D3) 25 mcg PO DAILY 01/29/23 02/17/23 [Vitamin D3] Clobetasol 0.05% Oint [Temovate 1 applic TOP BID 01/29/23 02/17/23 0.05% Oint] Nitrofurantoin [Macrobid] 100 mg PO BID #14 cap 02/10/23 02/17/23 - Allergies Allergies/Adverse Reactions: Allergies Allergy/AdvReac Type Severity Reaction Status Date / Time No Known Drug Allergies Allergy Verified 02/17/23 22:49 Review of Systems - All Other Systems All Other Systems: reports: Reviewed and negative Exam - Vital Signs Reviewed Vital Signs: Yes Vital Signs: Vital Signs x48h Temp Pulse Resp BP Pulse Ox O2 Flow Rate 10/16/23 03:03 67 21 131/73 H 98 2 02/18/23 02:25 36.2 C L 70 22 124/79 100 2 02/18/23 01:00 72 19 117/72 95 2 02/17/23 23:50 77 20 3 02/17/23 22:40 98.5 C H 83 20 139/89 H 86 L - Physical Exam General Appearance: positive: No acute distress, Alert Eyes Bilateral: positive: EOMI, No scleral icterus Respiratory: positive: Other (Access cart stethoscope not working; per ER Provider: +diffuse rhonchi) Cardiovascular: positive: Other (Access cart stethoscope not working; per ER Provider: RRR, no murmurs) Abdomen: positive: Other (per ER Provider: non-distended, NT, Soft) Extremities: positive: Other ( per ER Provider: moves all extrem, no edema) Neurologic/Psychiatric: positive: Oriented x3, CN's nml (2-12), Mood/affect nml Conclusion/Plan - Problem List (1) COPD exacerbation Conclusion/Plan: COPD Exacerbation Hypoxia Shortness of breath Cough Tobacco use Leukocytosis -EMS reported SpO2 88% on RA. -SpO2 86% RA, 95% 2L NC O2, WBC 15.2, Resp viral panel neg. -CXR: NAD -Pt was given IVF, Duonebs, Rocephin, Azithromycin in the ER. -admit to Med tele -O2 support PRN -Duonebs PRN -steroid MDI -SoluMedrol 40 mg IV daily, Rocephin/Azithro -tobacco cessation counseling Hyponatremia Decreased PO intake -Na 129 -cautious IVF -hold home medications: Losartan -monitor Na Pulmonary Embolus Abnormal CT Chest -CT Chest: not available in chart for review; per ER Provider: +subacute or chronic PE -Pt was given Lovenox in the ER. -check coags -continue Lovenox 80 mg SQ BID -check Doppler U/S LE HTN CAD CHF HLD -continue home medications: Coreg, statin, ASA -hold home medications: Losartan d/t Hyponatremia Hypothyroid -continue home medications: Levothyroxine -check TSH Seizure D/o -continue home medications: Keppra Chronic pain -continue home medications: Baclofen PRN VTE Prophylaxis: on Lovenox Code Status: D/W pt; she is Full Code ~Yin Edmonds MD Hospitalist - Lab Results Lab results reviewed: Yes Fish Bones: 02/17/23 23:32 02/17/23 23:32
[2023-02-18] MEDS ORDERED: ONDANSETRON ODT 4 MG TABLET TL PRN (03:41)
[2023-02-18] MEDS ORDERED: ONDANSETRON 4 MG/2 ML VIAL IVP PRN (03:41)
[2023-02-18] MEDS ORDERED: SODIUM CHLORIDE FLUSH 0.9% 10 ML SYRINGE IVP PRN (03:41)
[2023-02-18] MEDS ORDERED: IPRATROPIUM/ALBUTEROL 3 ML NEB INH PRN (03:50)
[2023-02-18] MEDS ORDERED: MAGNESIUM SULFATE 1 GM/2 ML VIAL IVP STA (03:51)
[2023-02-18 05:36] LABS: PARTIAL THROMBOPLASTIN TIME 49.5 secs (24.9-33.3)
[2023-02-18 05:40] LABS: INR 1.2 (0.8-1.2); PT - PROTHROMBIN TIME 12.7 secs (9.9-12.6)
[2023-02-18] MEDS: SODIUM CHLORIDE FLUSH 0.9% 10 ML SYRINGE IVP SCH ×2 (05:45→21:08)
[2023-02-18] MEDS: SODIUM CHLORIDE 0.9% 1,000 ML IV SCH (05:45)
[2023-02-18] MEDS ORDERED: MAGNESIUM SULFATE 2 GRAM 2 GM/50 ML BAG IV ONE (07:00)
[2023-02-18] MEDS: BUDESONIDE 0.5 MG/2 ML NEB INH SCH ×2 (07:20→18:17)
--- NOTE | 2023-02-18 08:21 | CT Report ---
PROCEDURE: ANGIO CHEST W/WO INDICATIONS: SOA/cough/hypoxia CONTRAST: Omni 300 80ml TECHNIQUE: After the administration of intravenous contrast, 2 mm axial images were acquired from the pulmonary apices to the posterior costophrenic angles during the arterial phase. In addition, 1 mm lung kernel and 5 mm soft tissue kernel reconstructions were performed. 3-dimensional coronal oblique maximum int ensity projection (MIP) reformats, 8 mm axial MIP, and 5 mm coronal and sagittal MPR reformats were t hen performed through the thorax. For radiation dose reduction, the following was used: automated exp osure control, adjustment of mA and/or kV according to patient size. COMPARISON: 04/24/2022 FINDINGS: Image quality: Excellent. Large vessels: Single filling defect is noted in the segmental branch of left upper lobe series 4 rosa ges 52 and 53. No other intraluminal filling defects are seen in bilateral pulmonary arteries.. No ev idence of acute aortic syndrome or aortic aneurysm. Lungs and pleura: Mild centrilobular emphysema is seen. Mild interstitial prominence in bilateral jamal g borja are also seen concerning for mild pulmonary edema. No consolidation. No pleural effusions. N o pneumothorax. No suspicious pulmonary nodules which require follow up. Mediastinum: Heart size is normal. No pericardial effusion. No large vessel abnormality. No mediastin al adenopathy by size criteria. Chest wall and lower neck: Thyroid is unremarkable. No axillary or supraclavicular adenopathy by size . Bones: No aggressive osseous abnormality. Upper Abdomen: Unremarkable. IMPRESSION: 1. Isolated single pulmonary embolus in segmental branch of the left upper lobe and may represent sub acute chronic pulmonary embolus. No other pulmonary emboli are seen. 2. Mild centrilobular emphysema and suggestion of mild pulmonary edema. No focal infiltrate, pleural effusion or pneumothorax. 3. No mediastinal or hilar lymphadenopathy. No significant discrepancies from pulmonary reading. Reviewed by: Mack Valdovinos MD on 02/18/2023 8:20 AM PDT Approved by: Mack Valdovinos MD on 02/18/2023 8:20 AM PDT Station ID: [id number]
[2023-02-18] MEDS: methylPREDNISolone SUCCINATE 40 MG/ML VIAL IVP SCH (08:50)
[2023-02-18] MEDS: LEVOTHYROXINE 25 MCG TABLET PO SCH (08:50)
[2023-02-18] MEDS: CHOLECALCIFEROL 25 MCG TABLET PO SCH (08:51)
[2023-02-18] MEDS: NYSTATIN POWDER 15 GM TOP SCH ×2 (08:51→21:11)
[2023-02-18] MEDS: ACETAMINOPHEN 325 MG TABLET PO PRN ×2 (08:51→21:08)
[2023-02-18] MEDS: carvediloL 3.125 MG TABLET PO SCH ×2 (08:51→21:08)
[2023-02-18] MEDS: levETIRAcetam 250 MG TABLET PO SCH ×2 (08:56→21:07)
[2023-02-18] MEDS ORDERED: ASPIRIN EC 81 MG TABLET PO SCH (09:00)
[2023-02-18] MEDS ORDERED: BACLOFEN 10 MG TABLET PO SCH (09:00)
[2023-02-18] MEDS ORDERED: ENOXAPARIN 40 MG/0.4 ML SYRINGE SUBQ SCH (09:00)
[2023-02-18 09:04] LABS: CALCIUM 9.3 mg/dL (8.5-10.3); CREATININE 0.7 mg/dL (0.6-1.3)
[2023-02-18] MEDS: APIXABAN 5 MG TABLET PO SCH ×2 (10:09→21:07)
--- NOTE | 2023-02-18 10:28 | Ultrasound Report ---
PROCEDURE: Duplex Ext Veins Bilateral INDICATIONS: PE TECHNIQUE: Real-time imaging, as well as color and pulse Doppler interrogation, were performed of the deep veins of both legs from the inguinal ligament to the popliteal fossa. Attempted visualization of the calf veins was performed. COMPARISON: 08/27/2013 FINDINGS: The deep veins are normally compressible, and free of intraluminal thrombus. Color and pu lse Doppler demonstrate normal phasic intravascular flow. There is normal augmentation response to d istal compression maneuver. IMPRESSION: No deep venous thrombosis of the visualized lower extremities. Reviewed by: Sony Montenegro MD on 02/18/2023 9:26 AM TARI Approved by: Sony Montenegro MD on 02/18/2023 9:26 AM TARI Station ID: [id number]
[2023-02-18] MEDS: BACLOFEN 10 MG TABLET PO PRN ×2 (12:00→16:44)
--- NOTE | 2023-02-18 14:35 | PHARMACY PROGRESS NOTE ---
- Best Possible Medication History Admit Date and Time: 02/18/23 0342 Processed by: Pharmacy Medication History completed: Yes Patient Interview: Completed Secondary Source(s): Written medication list, Insurance records As the person ultimately responsible for medication therapy, providers are able to order a medication from an existing home medication list in [facility] via the "Reconcile Routine" prior to Confirmation of that medication by residential support specialist. Such practice is discouraged except when the physician, in their clinical judgment, deems that a medical need exists for a medication without regard to previous use.
--- NOTE | 2023-02-18 18:42 | PROVIDER PROGRESS NOTE ---
Hospitalist Cross-cover Note - Cross-Cover Note Cross-Cover Note: 6:40 PM February 18, 2023 No events for today. She has been getting in and out of bed. At times requiring oxygen. But over the course of the day she is gone from 3 L to 1 L. She has been off oxygen most of the afternoon. She complains of overall ge neralized pain and is demanding opioids. At this time she is comfortable. In bed. Has eaten dinner. Watching TV. She is on room air at 93%. Heart rate is 76. Blood pressure 107/65. She was admitted as COPD exacerbation from . I will be starting Eliquis 10 mg p.o. twice daily for 7 days. Then transition to 5 mg p.o. twice daily for the next 3 to 4 months. She will need follow-up with her PCP. Anticipate discharge should be tomorrow.
[2023-02-18] MEDS ORDERED: ENOXAPARIN 80 MG/0.8 ML SYRINGE SUBQ SCH (21:00)
[2023-02-18] MEDS ORDERED: ATORVASTATIN 40 MG TABLET PO SCH (21:00)
[2023-02-19] MEDS: SODIUM CHLORIDE 0.9% 1,000 ML IV SCH (03:00)
[2023-02-19] MEDS: SODIUM CHLORIDE FLUSH 0.9% 10 ML SYRINGE IVP SCH ×2 (06:45→09:22)
[2023-02-19] MEDS: LEVOTHYROXINE 25 MCG TABLET PO SCH (07:00)
[2023-02-19] MEDS: BUDESONIDE 0.5 MG/2 ML NEB INH SCH ×2 (08:03→08:27)
[2023-02-19 08:08] VITALS: BP 130/66; O2SAT 93
[2023-02-19] MEDS ORDERED: cefTRIAXone 1 GM in SODIUM CHLORIDE 0.9% MINIBAG 100 ML IV SCH (09:00)
[2023-02-19] MEDS ORDERED: AZITHROMYCIN INJ 500 MG in SODIUM CHLORIDE 0.9% 250 ML IV SCH (09:00)
[2023-02-19] MEDS ORDERED: LOSARTAN 50 MG TABLET PO SCH (09:00)
[2023-02-19] MEDS: CHOLECALCIFEROL 25 MCG TABLET PO SCH (09:21)
[2023-02-19] MEDS: APIXABAN 5 MG TABLET PO SCH (09:21)
[2023-02-19] MEDS: carvediloL 3.125 MG TABLET PO SCH (09:21)
[2023-02-19] MEDS: NYSTATIN POWDER 15 GM TOP SCH (09:22)
[2023-02-19] MEDS: levETIRAcetam 250 MG TABLET PO SCH (09:25)
[2023-02-19 09:38] LABS: BASOPHILS # (AUTO) 0.1 10^3/uL (0.0-0.1); BASOPHILS % (AUTO) 0.5 %; EOSINOPHILS % (AUTO) 0.1 %; HCT - HEMATOCRIT 37.3 % (37.0-47.0); HGB - HEMOGLOBIN 11.9 g/dL (12.0-16.0); LYMPHOCYTES # (AUTO) 2.1 10^3/uL (1.5-3.5); LYMPHOCYTES % (AUTO) 19.4 %; MEAN CORPUSCULAR HEMOGLOBIN 27.1 pg (27.0-31.0); MEAN CORPUSCULAR HGB CONC 31.9 g/dL (32.0-36.0); MEAN PLATELET VOLUME 10.3 fL (7.9-10.8); MONOCYTES # (AUTO) 0.6 10^3/uL (0.0-1.0); MONOCYTES % (AUTO) 5.7 %; NEUTROPHILS # (AUTO) 7.8 10^3/uL (1.5-6.6); NEUTROPHILS % (AUTO) 73.9 %; PLT - PLATELET COUNT 304 10^3/uL (130-450); RED BLOOD COUNT 4.39 10^6/uL (4.20-5.40); RED CELL DISTRIBUTION WIDTH 16.4 % (12.0-15.0); WHITE BLOOD COUNT 10.6 x10^3/uL (4.8-10.8)
[2023-02-19] MEDS: methylPREDNISolone SUCCINATE 40 MG/ML VIAL IVP SCH (09:40)
[2023-02-19 10:00] LABS: CALCIUM 9.2 mg/dL (8.5-10.3); CREATININE 0.8 mg/dL (0.6-1.3); MAGNESIUM 1.9 mg/dL (1.7-2.3); POTASSIUM 3.6 mmol/L (3.5-4.5)
--- NOTE | 2023-02-19 14:52 | Discharge Plan ---
"Discharge Plan for SNF / [facility] - Discharge Plan And Transition Orders Problem Reviewed?: Yes Disposition: 03 SNF DC/Xfer Condition: Stable Allergies and Adverse Reactions: Allergies Allergy/AdvReac Type Severity Reaction Status Date / Time No Known Drug Allergies Allergy Verified 02/17/23 22:49 Health Concerns: The patient was admitted with a COPD exacerbation. We found her to have a pulmonary embolism. She is now to get Eliquis for PE treatment. She ahasalso been prescribed a nebulizer machine to receive nebulized bronchodilators (DuoNeb) as needed for wheezing. Her other pre-hospital medications may be resumed and continued. Plan of Treatment: As above. Care Goals: Improvement in symptoms and stabilization are the goals. Assessment: The patient understands and is agreeable with the plan. - SNF / [facility] Transition Orders Admit to (Facility): [facility] Under the care of (Name): PLACIDO Sims Discharge Diagnosis: 1) Acute PE Eliquis 10 mg p.o. twice daily for 7 days. Then transition to 5 mg p.o. twice daily, at least for the next 3 mos 2) COPD exacerbation Improved 3) Hyponatremia Resolved 4) HTN Stable 5) CAD Stable 6) CHF No exacerbation 7) HLD Stable 8) Hypothyroid Stable 9) Seizure Disorder Stable 10) Chronic pain Stable Medicare Certification Statement: Notify PCP of admission and forward orders to primary provider for signature. Weight on admission and: Weekly Call PCP immediately if weight increases by: 5 kg Other Notification Orders: Call PCP immediately if patient develops dyspnea, chest pain/tightness or edema. House Bowel Program: Yes Additional Bowel Program Orders: If no BM after 2 days, nurse may give M.O.M. 30ml PO PRN and/or ducolax Supp 1 MS and/or MACRINA 250mg P.O., and/or senna 1-2 tabs PO. On day 3 nurse may give repeat above order until residents constipation is resolved. Annual Influenza Vaccine (between Jan 04 and August 03): Yes Two-step PPD per [facility] [phone] or approved exception documents: Yes Medication Orders: PLEASE REFER TO THE DISCHARGE MEDICATION LIST. Insulin Orders?: No - Medications New Prescriptions: Ipratropium/Albuterol [Duoneb] 3 ml INH Q4H PRN 30 Days PRN Reason: Shortness Of Air/Wheezing Apixaban [Eliquis] 10 mg PO BID #70 tab - Diet Type: Geriatric Texture: Regular Liquids: Thin May have monthly special meal: Yes - Therapies | Activity Rehabilitation Potential: Maintain present ADL Functional Activity: Activity as Tolerated Weight Bearing: Full Weight Follow Up: See PCP in 1 week for a hospital folow-up visit."
--- NOTE | 2023-02-19 15:11 | DISCHARGE SUMMARY ---
Discharge Summary Admit Date: 02/18/23 Discharge Date: 02/19/23 Discharging Provider: Dr Divina Cesar Primary Care Provider: PLACIDO Sims Condition at Discharge: Stable Discharge Disposition: 03 SNF DC/Xfer - HPI History of Present Illness: 67 yo F with PMH of Tobacco use, HTN, CAD, CHF, HLD, Hypothyroid and Seizure D/o presented to the ER via EMS with c/o 3 day h/o SOB. Pt c/o 3 day h/o fatigue, weakness, Shortness of breath, cough with yellow-green sputum, +subjective fever and chills, and a decreased appetite. She denies coryza, sore throat, sinus pressure. No swelling of legs. No h/o blood clots. No abdom pain/N/V/dysuria. Pt has been hospitalized in the past multiple times for AMS, but has not been hospitalized for Shortness of breath. EMS reports SpO2 88% on RA. In the ER, SpO2 86% RA, 95% 2L NC O2, WBC 15.2, Na 129, Resp viral panel neg. CXR: NAD EKG: NSR at 93, no STTw changes CT Chest:+subacute or chronic PE Pt was given IVF, Duonebs, Rocephin, Azithromycin and Lovenox was started at 80 mg BID in the ER. - HOSPITAL COURSE Hospital Course: 1) Acute PE She was admitted as COPD exacerbation from a PE. Her EKG showed RBBB, which was old. We transitioned her from BID Lovenox to Eliquis 10 mg p.o. twice daily. She should be on this dose for 7 days, then transition to 5 mg p.o. twice daily for the next 3 to 4 months. She will need follow-up with her PCP to determine definite duration of Eliquis treatment. 2) COPD exacerbation Improved on Nebs and with just several iv steroid doses. She underwent an oximetry walk test and did not desaturate to need a new home O2 order. I am ordering a home nebulizer machine to administer bronchodilators to treat COPD, and new prescription ordered for nebulized DuoNebs to be given every 4 hours as needed for wheezing. 3) Hyponatremia Resolved with iv NS hydration. Na was 129 >> 135 on day of discharge. 4) HTN Stable on her usual meds. 5) CAD Stable on her usual meds. 6) CHF No exacerbation. We continued her usual meds. 7) HLD Stable on her meds. 8) Hypothyroid Stable, TSH was 0.7 on her usual Levothyroxine dose. 9) Seizure Disorder Stable on her usual meds 10) Chronic pain Stable, got narcotics prn. - ALLERGIES Allergies/Adverse Reactions: Allergies Allergy/AdvReac Type Severity Reaction Status Date / Time No Known Drug Allergies Allergy Verified 02/17/23 22:49 - MEDICATIONS Home Medications: Ambulatory Orders Medication Instructions Recorded Confirmed Losartan Potassium 12.5 mg PO DAILY 04/03/22 02/18/23 Levetiracetam [Keppra] 500 mg PO BID 05/15/22 02/17/23 Levothyroxine Sodium 50 mcg PO QDAC 05/15/22 02/17/23 Aspirin EC [Ecotrin] 81 mg PO DAILY tab 06/20/22 02/17/23 Atorvastatin [Lipitor] 40 mg PO QPM tab 06/20/22 02/17/23 carvediloL [Coreg] 3.125 mg PO BID #0 06/20/22 02/17/23 Baclofen [Lioresal] 20 mg PO QID 08/16/22 02/17/[address] [Voltaren] 75 mg PO BID PRN 01/28/23 02/17/23 Potassium Chloride [Klor-Con 10] 10 meq PO DAILY 01/28/23 02/17/23 Cholecalciferol (Vitamin D3) 25 mcg PO DAILY 01/29/23 02/17/23 [Vitamin D3] Clobetasol 0.05% Oint [Temovate 1 applic TOP BID 01/29/23 02/17/23 0.05% Oint] Nitrofurantoin [Macrobid] 100 mg PO BID #14 cap 02/10/23 02/17/23 Apixaban [Eliquis] 10 mg PO BID #70 tab 02/19/23 Ipratropium/Albuterol [Duoneb] 3 ml INH Q4H PRN 30 Days 02/19/23 - PHYSICAL EXAM AT DISCHARGE General Appearance: positive: No acute distress, Alert Eyes Bilateral: positive: Normal inspection, EOMI ENT: positive: ENT inspection nml, No signs of dehydration Neck: positive: Nml inspection, No JVD Respiratory: positive: No respiratory distress, Breath sounds nml Cardiovascular: positive: Regular rate & rhythm, No murmur Abdomen: positive: Non-tender, Nml bowel sounds, Other (Obese) Skin: positive: Warm, Dry Extremities: positive: Non-tender, Other (1+ ankle edema. Venous stasis changes.) Neurologic/Psychiatric: positive: Oriented x3, Motor nml - LABS Result Diagrams: 02/19/23 09:12 02/19/23 09:12 - DIAGNOSTIC IMAGING Diagnostic Imaging Results: Final report reviewed - FOLLOW UP Follow Up: See PCP in 5-10 days for a hospital follow-up visit. - TIME SPENT Time Spent in Discharge (Minutes): 30
== END 2023-02-19 17:00 ==
LOC: EDUNIT# → ED 22:34 → INTOOBSV 02-18 03:42 → MS3 02-18 03:42
PROVIDERS: ADMIT Internal Medicine; ATTEND Internal Medicine
DX: I26.99 Other pulmonary embolism without acute cor pulmonale (principal); J44.1 Chronic obstructive pulmonary disease with (acute) exacerbation; E87.1 Hypo-osmolality and hyponatremia; I11.0 Hypertensive heart disease with heart failure; I50.9 Heart failure, unspecified; I25.10 Atherosclerotic heart disease of native coronary artery without angina pectoris; E78.5 Hyperlipidemia, unspecified; E03.9 Hypothyroidism, unspecified; G40.909 Epilepsy, unspecified, not intractable, without status epilepticus; G89.29 Other chronic pain; I45.10 Unspecified right bundle-branch block; G35 Multiple sclerosis; Z95.5 Presence of coronary angioplasty implant and graft; F17.210 Nicotine dependence, cigarettes, uncomplicated; R09.02 Hypoxemia; D72.829 Elevated white blood cell count, unspecified; I25.2 Old myocardial infarction; F32.A Depression, unspecified
CPT/HCPCS: 36415; 71045; 71275; 80048; 80053; 83605; 83690; 83735; 83880; 84443; 85025; 85610; 85730; 87040; 87633; 93005; 93306; 93970; 94640; 94664; 96361; 96365; 96366; 96367; 96372; 96375; 96376; 99285; A9270; G0378; J1650; J7626; Q9967

== ENCOUNTER 2023-06-11 12:08 | Outpatient (CLI) | payer MEDICARE, MEDICAID | END 2023-06-11 12:09 | disposition critical access hospital (66) | LOC: EMS 12:08 | DX: R53.81 Other malaise (principal); R30.9 Painful micturition, unspecified; R32 Unspecified urinary incontinence; R39.89 Other symptoms and signs involving the genitourinary system; R05.9 Cough, unspecified | CPT/HCPCS: A0425; A0429 ==

== ENCOUNTER 2023-06-11 12:26 | Emergency (ER) | payer MEDICARE, MEDICAID ==
--- NOTE | 2023-06-11 13:05 | ED Physician Documentation ---
History of Present Illness - Stated complaint Stated Complaint: COUGH - Chief complaint Chief Complaint: Resp - History obtained from History obtained from: Patient - History of Present Illness Timing: Last night Pain level max: 0 Pain level now: 0 - Additonal information Additional information: Patient is a 67-year-old female who lives at [facility]. She is sent in today for a cough and a "possible UTI". She has chronic urinary incontinence. The staff states her urine smells worse than usual. No fevers. No chills. No difficulty breathing. No abdominal pain, nausea, vomiting. Patient states she usually ambulates with a walker. The cough is dry, no difficulty breathing. Does not use oxygen. Nothing makes it better or worse. 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: Other : Chronic bladder infection HEENT: None Psych: Depression, ADD/ADHD Musculoskeletal: Chronic back pain, Other Derm: Other - Past Surgical History Past Surgical History: Yes Ortho: Spine surgery /PRIZE JACKER: Hysterectomy Cardiovascular: Coronary stent, Cardiac catheterization - Present Medications Home Medications: Ambulatory Orders Medication Instructions Recorded Confirmed Atorvastatin [Lipitor] 40 mg PO QPM tab 06/20/22 05/27/[address] [Voltaren] 75 mg PO BID PRN 01/28/23 05/27/23 Ipratropium/Albuterol [Duoneb] 3 ml INH Q4H PRN 30 Days 02/19/23 05/27/23 Apixaban [Eliquis] 5 mg PO BID 05/27/23 05/27/23 Aspirin EC [Ecotrin] 81 mg PO DAILY 30 Days #30 tablet 05/27/23 Baclofen [Lioresal] 10 mg PO QID 30 Days #120 tablet 05/27/23 Cholecalciferol (Vitamin D3) 25 mcg PO DAILY 30 Days #30 cap 05/27/23 [Vitamin D3] Levetiracetam [Keppra] 500 mg PO BID 30 Days #60 tab 05/27/23 Levothyroxine Sodium 50 mcg PO QDAC 30 Days #30 tab 05/27/23 Losartan Potassium 25 mg PO DAILY 30 Days #30 tab 05/27/23 Potassium Chloride [Klor-Con 10] 10 meq PO DAILY 30 Days #30 tab 05/27/23 carvediloL [Coreg] 3.125 mg PO BID 30 Days #60 tab 05/27/23 Amox/Clav 875/125 [Augmentin] 1 tab PO Q12H #20 tablet 06/11/23 Azithromycin [Zithromax] 0 mg PO DAILY #6 tablet 06/11/23 - Allergies Allergies/Adverse Reactions: Allergies Allergy/AdvReac Type Severity Reaction Status Date / Time No Known Drug Allergies Allergy Verified 06/11/23 12:46 - Social History Does the pt smoke?: Yes Smoking Status: Current every day smoker Does the pt drink ETOH?: No Does the pt have substance abuse?: No - Immunizations Immunizations are current?: No - POLST Patient has POLST: No POLST Status: Full Code PD ED PE NORMAL - Vitals Vital signs reviewed: Yes - General General: Alert and oriented X 3, No acute distress - HEENT HEENT: PERRL, Moist mucous membranes - Neck Neck: Supple, no meningeal sign - Cardiac Cardiac: RRR, Strong equal pulses - Respiratory Respiratory: No respiratory distress, Clear bilaterally - Abdomen Abdomen: Soft, Non tender, Non distended - Derm Derm: Warm and dry, No rash - Neuro Neuro: Alert and oriented X 3 - Psych Psych: Normal mood, Normal affect Results - Vitals Vitals: Vital Signs - 24 hr 06/11/23 06/11/23 06/11/23 12:30 12:46 12:54 Temperature 36.2 C L Heart Rate 64 70 57 L Respiratory 18 16 18 Rate Blood Pressure 108/60 128/69 O2 Saturation 97 95 97 06/11/23 06/11/23 14:20 15:20 Temperature Heart Rate 61 81 Respiratory 17 18 Rate Blood Pressure 122/85 H O2 Saturation 97 95 Oxygen O2 Source [With Activity] Room air O2 Source [Without Activity] Room air O2 Source Room air - Labs Labs: Laboratory Tests 06/11/23 06/11/23 13:00 13:00 Urine Color YELLOW Urine Clarity CLOUDY Urine pH 8.0 H Ur Specific [place] 1.015 Urine Protein NEGATIVE Urine Glucose (UA) NEGATIVE Urine Ketones NEGATIVE Urine Occult Blood NEGATIVE Urine Nitrite POSITIVE H Urine Bilirubin SMALL H Urine Urobilinogen 0.2 (NORMAL) Ur Leukocyte Esterase TRACE H Urine RBC 0-5 Urine WBC 11-25 H Ur Epithelial Cells FEW Transitional Ur Squamous Epith Cells RARE Squamous Urine Crystals 0-2 Triple Phosphate Urine Bacteria Many H Ur Microscopic Review INDICATED Urine Culture Comments INDICATED Nasal Adenovirus (PCR) NOT DETECTED Nasal B. parapertussis DNA (PCR) NOT DETECTED Nasal Coronavir 229E PCR NOT DETECTED Nasal Coronavir HKU1 PCR NOT DETECTED Nasal Coronavir NL63 PCR NOT DETECTED Nasal Coronavir OC43 PCR NOT DETECTED Nasal Enterovir/Rhinovir PCR NOT DETECTED Nasal Influenza B PCR NOT DETECTED Nasal Influenza A PCR NOT DETECTED Nasal Parainfluen 1 PCR NOT DETECTED Nasal Parainfluen 2 PCR NOT DETECTED Nasal Parainfluen 3 PCR NOT DETECTED Nasal Parainfluen 4 PCR NOT DETECTED Nasal RSV (PCR) NOT DETECTED Nasal B.pertussis DNA PCR NOT DETECTED Nasal C.pneumoniae (PCR) NOT DETECTED Jaya Human Metapneumo PCR NOT DETECTED Nasal M.pneumoniae (PCR) NOT DETECTED Nasal SARS-CoV-2 (PCR) NOT DETECTED - Rads (name of study) cxr Relevant Findings:: Final report received, See rad report PD Medical Decision Making - ED course Complexity details: reviewed results, re-evaluated patient, considered differential, d/w patient ED course: Patient is well-appearing, nontoxic. Afebrile. Chest x-ray shows a possible mild atypical pneumonia. Her urinalysis is consistent with a UTI, this was performed after a catheterized urinalysis. We will place the patient on Augmentin and azithromycin as this should cover her both her pneumonia and UTI. No hypoxia. No respiratory distress. No fevers. No evidence of sepsis. No indication for admission. Patient counseled regarding signs and symptoms for which I believe and urgent re-evaluation would be necessary. Patient with good understanding of and agreement to plan and is comfortable going home at this time This document was made in part using voice recognition software. While efforts are made to proofread this document, sound alike and grammatical errors may occur. Departure - Departure Disposition: 01 Home, Self Care Clinical Impression: Atypical pneumonia UTI (urinary tract infection) Qualifiers: Urinary tract infection type: acute cystitis Hematuria presence: without hematuria Qualified Code(s): N30.00 - Acute cystitis without hematuria Condition: Good Instructions: ED Pneumonia Adult, ED UTI Cystitis Female Follow-Up: your,doctor in 1 week [Other] Prescriptions: Amox/Clav 875/125 [Augmentin] 1 tab PO Q12H #20 tablet Azithromycin [Zithromax] 0 mg PO DAILY #6 tablet Comments: You appear to have a mild atypical pneumonia on your chest x-ray today. You also have a UTI. We have started you on antibiotics for this today. The remainder of your antibiotics have been [facility] to [facility]. Please follow-up with your doctor for further care. Return if you worsen. Forms: PCP List Discharge Date/Time: 06/11/23 15:20
[2023-06-11 13:24] LABS: BILIRUBIN,URINE SMALL (NEGATIVE); GLUCOSE, URINE (UA) NEGATIVE (NEGATIVE); KETONES,URINE (UA) NEGATIVE (NEGATIVE); LEUKOCYTE ESTERASE, URINE TRACE (NEGATIVE); NITRITE,URINE POSITIVE (NEGATIVE); OCCULT BLOOD,URINE NEGATIVE (NEGATIVE); PROTEIN,URINE NEGATIVE (NEGATIVE); UROBILINOGEN,URINE 0.2 (NORMAL) E.U./dL (NORMAL)
[2023-06-11 13:27] LABS: CLARITY,URINE CLOUDY (CLEAR)
[2023-06-11 13:36] LABS: BACTERIA,URINE Many /HPF (None Seen); CRYSTALS,URINE 0-2 Triple Phosphate /LPF; EPITHELIAL CELLS,UR FEW Transitional /HPF (<= Few); RBC,URINE 0-5 /HPF (0-5); SQUAMOUS EPITHELIAL CELL,UR RARE Squamous (<= Few)
--- NOTE | 2023-06-11 13:42 | XRAY Report ---
PROCEDURE: Chest 1V INDICATIONS: COUGH TECHNIQUE: One view of the chest was acquired. COMPARISON: 02/17/2023 FINDINGS: Surgical changes and devices: None. Lungs and pleura: No pleural effusions or pneumothorax. Mild patchy bilateral perihilar and basilar opacity. Mediastinum: Mediastinal contours appear normal. Heart size is normal. Bones and chest wall: No suspicious bony lesions. Overlying soft tissues appear unremarkable. IMPRESSION: Mild atypical pneumonia. Reviewed by: Rosa Peter MD on 06/11/2023 1:41 PM PST Approved by: Rosa Peter MD on 06/11/2023 1:41 PM PST Station ID: [id number]
[2023-06-11 14:14] LABS: B. PARAPERTUSSIS- RESP PCR PAN NOT DETECTED; B. PERTUSSIS- RESP PCR PANEL NOT DETECTED; C. PNEUMONIAE- RESP PCR PANEL NOT DETECTED; CORONAVIRUS 229E-RESP PCR NOT DETECTED; CORONAVIRUS HKU1-RESP PCR NOT DETECTED; CORONAVIRUS NL63-RESP PCR NOT DETECTED; CORONAVIRUS OC43-RESP PCR NOT DETECTED; HUMAN METAPNEUMOVIRUS NOT DETECTED; INFLUENZA A- RESP PCR PANEL NOT DETECTED; INFLUENZA B - RESP PCR PANEL NOT DETECTED; M. PNEUMONIAE- RESP PCR PANEL NOT DETECTED; PARAINFLUENZA VIRUS 1 NOT DETECTED; PARAINFLUENZA VIRUS 2 NOT DETECTED; PARAINFLUENZA VIRUS 3 NOT DETECTED; PARAINFLUENZA VIRUS 4 NOT DETECTED; RHINOVIRUS/ENTEROVIRUS NOT DETECTED; RSV- RESP PCR PANEL NOT DETECTED; SARS-CoV-2 -RESP PCR PANEL NOT DETECTED
[2023-06-11] MEDS: AMOX/CLAV 875 MG/125 MG TABLET PO STA (14:54)
[2023-06-11 16:18] VITALS: BP 122/85; O2SAT 95
== END 2023-06-11 15:20 | disposition home or self-care (01) ==
LOC: EDUNIT# → ED 12:26
DX: J18.9 Pneumonia, unspecified organism (principal); N39.0 Urinary tract infection, site not specified; I10 Essential (primary) hypertension; Z86.711 Personal history of pulmonary embolism; Z79.01 Long term (current) use of anticoagulants; Z11.52 Encounter for screening for COVID-19
CPT/HCPCS: 71045; 81001; 87077; 87086; 87181; 87633; 99283; 99284; A9270; 81003

== ENCOUNTER 2023-06-26 10:52 | Emergency (ER) | payer MEDICARE, MEDICAID ==
--- NOTE | 2023-06-26 11:30 | ED Physician Documentation ---
History of Present Illness - Stated complaint Stated Complaint: BACK PX - Chief complaint Chief Complaint: Back Pain - Additonal information Additional information: 67-year-old female with history of hypertension, coronary artery disease, PE, COPD, seizure disorder and 2 spinal surgeries presents emergency department for increased lower back pain. Patient is fairly poor historian but she does report that she has been having back pain now for about a month. She also reports that she has been having some fevers and chills at home that she originally attributed to urinary tract infection she is having difficulty recalling the last fever she had. When asked her if she has had any recent falls or injuries she declines. She says that she is chronically incontinent of urine so it is hard to say if this is changed at all. She does not endorsing any incontinence of stool but when asked if she has any numbness or tingling to her buttocks area she does endorse an intermittent numbness and tingling to her saddle area. She uses a walker to ambulate so she has chronic weakness hard to tell if the weakness is any worse or better. 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: Other : Chronic bladder infection HEENT: None Psych: Depression, ADD/ADHD Musculoskeletal: Chronic back pain, Other Derm: Other - Past Surgical History Past Surgical History: Yes Ortho: Spine surgery /TRUCK DRIVER FLATBED: Hysterectomy Cardiovascular: Coronary stent, Cardiac catheterization - Present Medications Home Medications: Ambulatory Orders Medication Instructions Recorded Confirmed Atorvastatin [Lipitor] 40 mg PO QPM tab 06/20/22 06/26/[address] [Voltaren] 75 mg PO BID PRN 01/28/23 06/26/23 Ipratropium/Albuterol [Duoneb] 3 ml INH Q4H PRN 30 Days 02/19/23 06/26/23 Apixaban [Eliquis] 5 mg PO BID 05/27/23 06/26/23 Aspirin EC [Ecotrin] 81 mg PO DAILY 30 Days #30 tablet 05/27/23 06/26/23 Baclofen [Lioresal] 10 mg PO QID 30 Days #120 tablet 05/27/23 06/26/23 Cholecalciferol (Vitamin D3) 25 mcg PO DAILY 30 Days #30 cap 05/27/23 06/26/23 [Vitamin D3] Levetiracetam [Keppra] 500 mg PO BID 30 Days #60 tab 05/27/23 06/26/23 Levothyroxine Sodium 50 mcg PO QDAC 30 Days #30 tab 05/27/23 06/26/23 Losartan Potassium 25 mg PO DAILY 30 Days #30 tab 05/27/23 06/26/23 Potassium Chloride [Klor-Con 10] 10 meq PO DAILY 30 Days #30 tab 05/27/23 06/26/23 carvediloL [Coreg] 3.125 mg PO BID 30 Days #60 tab 05/27/23 06/26/23 Cyclobenzaprine [Flexeril] 10 mg PO TID PRN 6 Days #15 tablet 06/26/23 - Allergies Allergies/Adverse Reactions: Allergies Allergy/AdvReac Type Severity Reaction Status Date / Time No Known Drug Allergies Allergy Verified 06/26/23 11:01 - Social History Does the pt smoke?: Yes Smoking Status: Current every day smoker Does the pt drink ETOH?: No Does the pt have substance abuse?: No - Immunizations Immunizations are current?: No - POLST Patient has POLST: No POLST Status: Full Code PD ED PE NORMAL - Vitals Vital signs reviewed: Yes - General General: Alert and oriented X 3, No acute distress, Well developed/nourished - HEENT HEENT: Atraumatic, PERRL, EOMI, Moist mucous membranes - Neck Neck: No bony TTP - Cardiac Cardiac: RRR, No murmur, No gallop, Strong equal pulses - Respiratory Respiratory: No respiratory distress, Clear bilaterally - Abdomen Abdomen: Normal bowel sounds, Soft, Non tender - Back Back: Other (Tenderness with palpation to mid spinal process) - Derm Derm: Normal color, Warm and dry, No rash - Extremities Extremities: No deformity, No calf tenderness / cord - Neuro Neuro: Alert and oriented X 3, 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 Bony features of the shoulders and hips are of equal height bilaterally. Posture is upright. Tenderness noted on palpation of the spinous processes. Spinous processes are midline. Cervical, thoracic, and lumbar paraspinal muscles are tender but without spasm. Straight leg raise test is negative bilaterally. Sensation to the upper and lower extremities is normal bilaterally. No clonus is noted. Salvage Inspector strength is normal bilaterally. Dorsi/plantar flexion is normal bilaterally. Results - Vitals Vitals: Vital Signs - 24 hr 06/26/23 06/26/23 06/26/23 10:57 14:01 16:22 Temperature 36.4 C L Heart Rate 81 69 65 Respiratory 18 15 18 Rate Blood Pressure 109/64 116/65 117/69 O2 Saturation 97 93 94 Oxygen O2 Source [With Activity] Room air O2 Source [Without Activity] Room air O2 Source Room air - Labs Labs: Laboratory Tests 06/26/23 06/26/23 06/26/23 12:04 12:04 12:30 WBC 9.4 RBC 4.64 Hgb 13.1 Hct 40.6 MCV 87.5 MCH 28.2 MCHC 32.3 RDW 17.1 H Plt Count 374 MPV 10.5 Neut # (Auto) 5.7 Lymph # (Auto) 2.6 [place] # (Auto) 0.9 Eos # (Auto) 0.1 Baso # (Auto) 0.1 Absolute Nucleated RBC 0.00 Nucleated RBC % 0.0 Sodium 136 Potassium 4.6 H Chloride 105 Carbon Dioxide 25 Anion Gap 6.0 BUN 23 H Creatinine 0.9 Estimated GFR (MDRD) 62 L Glucose 93 Calcium 9.7 Magnesium 1.9 Total Bilirubin 0.3 AST 12 ALT 11 Alkaline Phosphatase 78 Total Protein 7.5 Albumin 4.2 Globulin 3.3 Albumin/Globulin Ratio 1.3 Urine Color YELLOW Urine Clarity CLEAR Urine pH 6.5 Ur Specific [place] 1.015 Urine Protein NEGATIVE Urine Glucose (UA) NEGATIVE Urine Ketones NEGATIVE Urine Occult Blood NEGATIVE Urine Nitrite NEGATIVE Urine Bilirubin NEGATIVE Urine Urobilinogen 0.2 (NORMAL) Ur Leukocyte Esterase NEGATIVE Ur Microscopic Review NOT INDICATED Urine Culture Comments NOT INDICATED - Rads (name of study) MRI lumbar Relevant Findings:: Final report received, EMP independent interpretation of test, Other (No spinal epidural abscess, multilevel degenerative disc and facet disease with epidural lipomatosis and ligamentum flavum hypertrophy. Multilevel foraminal stenosis, multilevel canal stenosis.) PD Medical Decision Making - ED course ED course: Because patient was overall poor historian she did report that she was having fevers and chills at home with intermittent saddle anesthesia and incontinence as well as hx of multiple surgeries on her back I cannot confidently rule out spinal epidural abscess. CBC complete there is no elevation in her white count, potassium slightly elevated at 4.6, BUN 23, GFR 62 urine shows no signs or symptoms of infection. MRI complete the patient's lumbar spine. See results below. 1. Five lumbar type vertebral bodies were presumed for the purposes of the current report. Correlation with plainfilms for numbering purposes is recommended prior to any lumbar spinal intervention. 2. Multilevel degenerative disc and facet disease, in addition to epidural lipomatosis and ligamentum flavum hypertrophy. 3. Postsurgical sequelae. 4. Mild multilevel canal stenoses. 5. Multilevel foraminal stenoses, worst at L3-L4 and L5-S1 as described above. Recommend correlation with clinical symptoms to ascertain relevance of these findings. Patient drove herself here so she was not able to receive anything stronger than Tylenol and Toradol for her pain. She was told to follow-up with her orthopedic surgeon in regards to her ongoing lower back pain. MRI did rule out spinal epidural abscess no further emergent workup indicated at this time. She is safe for discharge. A muscle relaxer prescription was sent to patient's preferred pharmacy. Departure - Departure Disposition: 01 Home, Self Care Clinical Impression: Multilevel degenerative disc disease, Lumbar foraminal stenosis, Epidural lipomatosis Instructions: ED Back Care Tips Prescriptions: Cyclobenzaprine [Flexeril] 10 mg PO TID PRN 6 Days #15 tablet PRN Reason: Spasms Comments: Thank you for trusting us with your care. We have completed an MRI see below for results. I recommend following up with the orthopedic surgeon who did the surgery for reevaluation of your ongoing lower back pain. We have given you Tylenol and Toradol here in the emergency department and I am sending a muscle relaxer called cyclobenzaprine to preferred pharmacy [facility] in [place]. You can take 1 pill every 8 hours for pain and discomfort as the Tylenol and ibuprofen are not working. Do not drive or operate heavy machinery while taking cyclobenzaprine. Make sure that you are also alternating between 20 minutes of heat and 20 minutes of height to your back to help with pain. Your MRI results: 1. Five lumbar type vertebral bodies were presumed for the purposes of the current report. Correlation with plainfilms for numbering purposes is recommended prior to any lumbar spinal intervention. 2. Multilevel degenerative disc and facet disease, in addition to epidural lipomatosis and ligamentum flavum hypertrophy. 3. Postsurgical sequelae. 4. Mild multilevel canal stenoses. 5. Multilevel foraminal stenoses, worst at L3-L4 and L5-S1 as described above. Recommend correlation with clinical symptoms to ascertain relevance of these findings. Discharge Date/Time: 06/26/23 16:23
[2023-06-26] MEDS: ACETAMINOPHEN 325 MG TABLET PO STA (12:08)
[2023-06-26 12:16] LABS: BASOPHILS # (AUTO) 0.1 10^3/uL (0.0-0.1); BASOPHILS % (AUTO) 1.4 %; EOSINOPHILS # (AUTO) 0.1 10^3/uL (0.0-0.7); EOSINOPHILS % (AUTO) 1.1 %; HCT - HEMATOCRIT 40.6 % (37.0-47.0); HGB - HEMOGLOBIN 13.1 g/dL (12.0-16.0); LYMPHOCYTES # (AUTO) 2.6 10^3/uL (1.5-3.5); LYMPHOCYTES % (AUTO) 27.4 %; MEAN CORPUSCULAR HEMOGLOBIN 28.2 pg (27.0-31.0); MEAN CORPUSCULAR HGB CONC 32.3 g/dL (32.0-36.0); MEAN CORPUSCULAR VOLUME 87.5 fL (81.0-99.0); MEAN PLATELET VOLUME 10.5 fL (7.9-10.8); MONOCYTES # (AUTO) 0.9 10^3/uL (0.0-1.0); MONOCYTES % (AUTO) 9.8 %; NEUTROPHILS # (AUTO) 5.7 10^3/uL (1.5-6.6); NEUTROPHILS % (AUTO) 60.2 %; PLT - PLATELET COUNT 374 10^3/uL (130-450); RED BLOOD COUNT 4.64 10^6/uL (4.20-5.40); RED CELL DISTRIBUTION WIDTH 17.1 % (12.0-15.0); WHITE BLOOD COUNT 9.4 x10^3/uL (4.8-10.8)
[2023-06-26 12:39] LABS: ALBUMIN 4.2 g/dL (3.2-5.5); ALBUMIN/GLOBULIN RATIO 1.3 (1.0-2.2); BILIRUBIN,TOTAL 0.3 mg/dL (0.2-1.0); CALCIUM 9.7 mg/dL (8.5-10.3); CREATININE 0.9 mg/dL (0.6-1.3); MAGNESIUM 1.9 mg/dL (1.7-2.3); POTASSIUM 4.6 mmol/L (3.5-4.5); TOTAL PROTEIN 7.5 g/dL (6.4-8.9)
[2023-06-26 13:05] LABS: BILIRUBIN,URINE NEGATIVE (NEGATIVE); GLUCOSE, URINE (UA) NEGATIVE (NEGATIVE); KETONES,URINE (UA) NEGATIVE (NEGATIVE); LEUKOCYTE ESTERASE, URINE NEGATIVE (NEGATIVE); NITRITE,URINE NEGATIVE (NEGATIVE); OCCULT BLOOD,URINE NEGATIVE (NEGATIVE); PH,URINE 6.5 PH (5.0-7.5); PROTEIN,URINE NEGATIVE (NEGATIVE); UROBILINOGEN,URINE 0.2 (NORMAL) E.U./dL (NORMAL)
[2023-06-26 13:06] LABS: CLARITY,URINE CLEAR (CLEAR)
--- NOTE | 2023-06-26 14:22 | MRI Report ---
PROCEDURE: Lumbar Spine W/WO INDICATIONS: intermittent saddle anesthesia CONTRAST: 14.4ml Clariscan TECHNIQUE: Noncontrast sagittal T1 spin echo and T2 fast spin echo, sagittal STIR, axial T1 and T2 fast spin ech o through the lumbar spine. In cases with scoliosis, additional coronal T2 fast spin echo may be per formed. After the administration of contrast, sagittal and axial T1 spin echo with fat saturation th rough the lumbar spine. COMPARISON: None. FINDINGS: Image quality: Degraded by metallic artifact. Alignment and curvature: No plain films are available for comparison. Thus, for numbering purposes, 5 lumbar type vertebral bodies will be presumed for the current report. This should be confirmed with plain film correlation prior to any lumbar spinal intervention. There is loss of normal lumbar lordo sis. Marrow: Marrow is of normal overall signal. No acute vertebral body compression fractures. No susp icious marrow enhancement. Posterior fusion hardware at L4-S1 is present. Spinal cord: Conus medullaris terminates at the upper L2 level. Visualized spinal cord demonstrates normal signal, without suspicious enhancement. Paraspinous soft tissues: No paravertebral masses or abnormal enhancement. T12-L1: Normal in appearance. L1-L2: Normal in appearance. L2-L3: Normal in appearance. L3-L4: Mild disc height loss and desiccation. Mild diffuse disc bulge with superimposed right far l ateral protrusion. Mild facet and ligament flavum hypertrophy. Mild epidural lipomatosis. Mild canal stenosis. Moderate to severe right and mild left foraminal stenosis. Mild right L3 nerve root fozia adriana. L4-L5: Posterior fusion hardware. Interbody device placement. No significant canal stenosis. Mild b ilateral foraminal stenosis. L5-S1: Interbody device placement. Posterior fusion hardware. Mild bilateral facet hypertrophy. No significant canal stenosis. Moderate to severe left and mild right foraminal stenosis. Possible left L5 nerve root compression. IMPRESSION: 1. Five lumbar type vertebral bodies were presumed for the purposes of the current report. Correlati on with plainfilms for numbering purposes is recommended prior to any lumbar spinal intervention. 2. Multilevel degenerative disc and facet disease, in addition to epidural lipomatosis and ligamentum flavum hypertrophy. 3. Postsurgical sequelae. 4. Mild multilevel canal stenoses. 5. Multilevel foraminal stenoses, worst at L3-L4 and L5-S1 as described above. Recommend correlation with clinical symptoms to ascertain relevance of these findings. Reviewed by: Rosa Peter MD on 06/26/2023 2:20 PM PST Approved by: Rosa Peter MD on 06/26/2023 2:20 PM PST Station ID: [id number]
[2023-06-26] MEDS ORDERED: GADOTERATE MEGLUMINE 10 MMOL/20 ML VIAL ONE (15:21)
[2023-06-26] MEDS: KETOROLAC 15 MG/ML VIAL IVP STA (15:25)
[2023-06-26] MEDS: GADOTERATE MEGLUMINE 10 MMOL/20 ML VIAL IVP ONE (15:59)
[2023-06-26 16:28] VITALS: BP 117/69; O2SAT 94
== END 2023-06-26 16:23 | disposition home or self-care (01) ==
LOC: ED 10:52
DX: M51.36 Other intervertebral disc degeneration, lumbar region (principal); M48.061 Spinal stenosis, lumbar region without neurogenic claudication; E88.2 Lipomatosis, not elsewhere classified; I10 Essential (primary) hypertension; I25.2 Old myocardial infarction; J44.9 Chronic obstructive pulmonary disease, unspecified; G35 Multiple sclerosis; F17.200 Nicotine dependence, unspecified, uncomplicated; Z79.899 Other long term (current) drug therapy; Z79.01 Long term (current) use of anticoagulants; Z79.82 Long term (current) use of aspirin
CPT/HCPCS: 36415; 72158; 80053; 81003; 83735; 85025; 96374; 99284; A9270; A9575; 81001; 87086

== ENCOUNTER 2023-07-21 08:36 | Emergency (ER) | payer MEDICARE, MEDICAID ==
[2023-07-21 09:08] VITALS: BP 115/58; O2SAT 97
--- NOTE | 2023-07-21 09:27 | ED Physician Documentation ---
History of Present Illness - Stated complaint Stated Complaint: MEDICATION REFILL - Chief complaint Chief Complaint: General - History obtained from History obtained from: Patient - History of Present Illness Pain level max: 0 Pain level now: 0 - Additonal information Additional information: Patient is a 67-year-old female who presents to the emergency department stating that she has not seen a primary care doctor in several years but was living at a facility where her medications are being refilled. She left that facility about 2 months ago and has not found a primary care provider. She has been getting her medications refilled through the emergency department. She is here for medication refill. No complaints. 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: Other : Chronic bladder infection HEENT: None Psych: Depression, ADD/ADHD Musculoskeletal: Chronic back pain, Other Derm: Other - Past Surgical History Past Surgical History: Yes Ortho: Spine surgery /SYSTEMS DESIGN ENGINEER: Hysterectomy Cardiovascular: Coronary stent, Cardiac catheterization - Present Medications Home Medications: Ambulatory Orders Medication Instructions Recorded Confirmed Cyclobenzaprine [Flexeril] 10 mg PO TID PRN 6 Days #15 tablet 06/26/23 Apixaban [Eliquis] 5 mg PO BID #60 tab 07/21/23 Aspirin EC [Ecotrin] 81 mg PO DAILY 30 Days #30 tablet 07/21/23 Atorvastatin [Lipitor] 40 mg PO QPM #30 tab 07/21/23 Baclofen [Lioresal] 10 mg PO QID 30 Days #120 tablet 07/21/23 Cholecalciferol (Vitamin D3) 25 mcg PO DAILY 30 Days #30 cap 07/21/23 [Vitamin D3] Diclofenac Sodium Dr [Voltaren] 75 mg PO BID PRN #60 tab 07/21/23 Ipratropium/Albuterol [Duoneb] 3 ml INH Q4H PRN 30 Days ml 07/21/23 Levetiracetam [Keppra] 500 mg PO BID 30 Days #60 tab 07/21/23 Levothyroxine Sodium 50 mcg PO QDAC 30 Days #30 tab 07/21/23 Losartan Potassium 25 mg PO DAILY 30 Days #30 tab 07/21/23 Potassium Chloride [Klor-Con 10] 10 meq PO DAILY 30 Days #30 tab 07/21/23 carvediloL [Coreg] 3.125 mg PO BID 30 Days #60 tab 07/21/23 - Allergies Allergies/Adverse Reactions: Allergies Allergy/AdvReac Type Severity Reaction Status Date / Time No Known Drug Allergies Allergy Verified 07/21/23 08:52 - Social History Does the pt smoke?: Yes Smoking Status: Current every day smoker Does the pt drink ETOH?: No Does the pt have substance abuse?: No - Immunizations Immunizations are current?: No - POLST Patient has POLST: No POLST Status: Full Code PD ED PE NORMAL - Vitals Vital signs reviewed: Yes - General General: Alert and oriented X 3, No acute distress - HEENT HEENT: Moist mucous membranes - Respiratory Respiratory: No respiratory distress - Derm Derm: Warm and dry - Neuro Neuro: Alert and oriented X 3 Results - Vitals Vitals: Vital Signs - 24 hr 07/21/23 08:45 Temperature 36.8 C Heart Rate 86 Respiratory 18 Rate Blood Pressure 115/58 L O2 Saturation 97 Oxygen O2 Source [With Activity] Room air O2 Source [Without Activity] Room air O2 Source Room air PD Medical Decision Making - ED course Complexity details: considered differential, d/w patient ED course: Patient with no acute emergency medical condition. Will refill her medications for her as she currently has no one else to refill the medications. Informed her that she can utilize the walk-in clinics and that she needs to put top priority on finding a new primary care provider to prescribe her medications. This document was made in part using voice recognition software. While efforts are made to proofread this document, sound alike and grammatical errors may occur. Departure - Departure Disposition: 01 Home, Self Care Clinical Impression: Medication refill Condition: Good Instructions: ED Screening Exam Medical Nonurgent Follow-Up: [facility] [place] [Provider Group] [facility] [place] [Provider Group] [facility] [Provider Group] Prescriptions: carvediloL [Coreg] 3.125 mg PO BID 30 Days #60 tab Ipratropium/Albuterol [Duoneb] 3 ml INH Q4H PRN 30 Days ml PRN Reason: Shortness Of Air/Wheezing Aspirin EC [Ecotrin] 81 mg PO DAILY 30 Days #30 tablet Apixaban [Eliquis] 5 mg PO BID #60 tab Levetiracetam [Keppra] 500 mg PO BID 30 Days #60 tab Potassium Chloride [Klor-Con 10] 10 meq PO DAILY 30 Days #30 tab Levothyroxine Sodium 50 mcg PO QDAC 30 Days #30 tab Baclofen [Lioresal] 10 mg PO QID 30 Days #120 tablet Atorvastatin [Lipitor] 40 mg PO QPM #30 tab Losartan Potassium 25 mg PO DAILY 30 Days #30 tab Cholecalciferol (Vitamin D3) [Vitamin D3] 25 mcg PO DAILY 30 Days #[address] [Voltaren] 75 mg PO BID PRN #60 tab PRN Reason: Mild Pain (Level 1-3) Comments: Your prescriptions were sent to [facility] in [place]. As we discussed all future refills will need to come from your primary care provider or from one of the walk-in clinics. Forms: PCP List
== END 2023-07-21 09:52 | disposition home or self-care (01) ==
LOC: ED 08:36
DX: Z76.0 Encounter for issue of repeat prescription (principal); I10 Essential (primary) hypertension; I26.99 Other pulmonary embolism without acute cor pulmonale; Z79.01 Long term (current) use of anticoagulants; F17.200 Nicotine dependence, unspecified, uncomplicated
CPT/HCPCS: 99281; 99282